=== PATIENT | female | born 1950 | race Caucasian/White ===

== ENCOUNTER 2019-12-24 07:36 | Outpatient (RCR) | payer MEDICARE, SELFPAY ==
[2019-10-01 13:32] LABS: INR 2.8
[2019-10-16 13:39] LABS: INR 2.3; Prothrombin Time 25.1 Seconds (11.1-14.7)
[2019-10-29 13:54] LABS: Prothrombin Time 22.4 Seconds (11.1-14.7)
[2019-11-26 14:15] LABS: INR 2.3; Prothrombin Time 24.4 Seconds (11.1-14.7)
[2019-12-24 13:35] LABS: INR 2.8; Prothrombin Time 28.8 Seconds (11.1-14.7)
== END 2019-12-30 07:37 | disposition home or self-care (01) ==
LOC: ANHWCLAB 07:36
PROVIDERS: PCP Internal Medicine; Visit Provider Internal Medicine
DX: Z51.81 Encounter for therapeutic drug level monitoring (principal); Z79.01 Long term (current) use of anticoagulants
CPT/HCPCS: 36415; 85610

== ENCOUNTER 2020-01-01 09:38 | Outpatient (CLI) | payer MEDICARE, SELFPAY ==
[2020-01-01 10:34] LABS: Hematocrit 33.5 % (37.0-47.0); Hemoglobin 10.1 g/dL (12.0-15.0); Mean Corpuscular HGB Conc 30.1 g/dl (32-36); Mean Corpuscular Hemoglobin 30.2 pg (26-34); Mean Corpuscular Volume 100.3 fl (80-100); Mean Platelet Volume 9.1 fl (7.4-10.4); Platelet Count Result 274 k/mm3 (150-375); Red Blood Count 3.34 M/mm3 (4.2-5.4); Red Cell Distribution Width 15.6 % (11.5-14.5); White Blood Count 10.8 K/mm3 (4.5-10.0)
[2020-01-01 10:40] LABS: Add Urine Microscopic? YES; Amorphous Sediment Urine Few; Appearance Urine Turbid (Clear); Bacteria Urine 4+ /hpf; Bilirubin Urine Negative (Negative); Blood Urine Negative (Negative); Color Urine Yellow (Yellow); Glucose Urine UA Negative (Negative); Ketones Urine Negative (Negative); Leukocyte Esterase Ur 2+ LEU/UL (Negative); Nitrate Urine Negative (Negative); Protein Urine Negative (Negative); Specific Grav Ur 1.017 (1.001-1.035); Squamous Epithelial Cell Urine Occasional /hpf (Few); Urobilinogen Urine Negative mg/dL (<2.0); WBC Urine 21-30 /hpf
[2020-01-01 10:48] LABS: Alanine Aminotransferase 17 U/L (4-35); Albumin Level 4.2 g/dL (3.5-5.1); Alkaline Phosphatase 52 U/L (38-126); Aspartate Amino Transferase 22 U/L (14-36); Bilirubin,Total 0.8 mg/dL (0.2-1.3); Blood Urea Nitrogen 28 mg/dL (7-17); Calcium 10.1 mg/dL (8.4-10.2); Carbon Dioxide 30 mmol/L (22-30); Chloride 99 mmol/L (98-107); Estimated Glomerular Filt Rate > 60; Glucose 96 mg/dL (65-105); Potassium 4.5 mmol/L (3.4-5.0); Sodium 141 mmol/L (137-145)
== END 2020-01-01 09:39 | disposition home or self-care (01) ==
PROVIDERS: Internal Medicine Rheumatology; PCP Internal Medicine; Visit Provider Internal Medicine
DX: Z51.81 Encounter for therapeutic drug level monitoring (principal); Z79.899 Other long term (current) drug therapy; R30.0 Dysuria
CPT/HCPCS: 36415; 80048; 80076; 81001; 85027; 87086; 87088

== ENCOUNTER 2020-01-01 12:01 | Inpatient (IN) | payer MEDICARE, SELFPAY ==
[2020-01-01] VITALS (22 sets, daily range): BP systolic 107–187; BP diastolic 45–89; PULSE 55–80; RESP 14–24; TEMP 36.2–36.5; O2SAT 95–100; BMI 53.1
--- NOTE | ~2020-01-01 | XR_ITS ---
EXAMINATION: XR chest 1V portable DATE: 01/01/2020 14:57 INDICATION: Cough. TECHNIQUE: A single frontal view of the chest was obtained. COMPARISON: Chest 2 views 12/16/2019, chest CT 07/23/2019 FINDINGS: Again seen is mild elevation of right hemidiaphragm. There are coarse interstitial opacitie s with architectural distortion in all lung zones bilaterally. No pleural effusion or pneumothorax. C ardiomegaly is noted. There are prominent paracardial fat pads. The main pulmonary artery is enlarged , consistent with pulmonary arterial hypertension. IMPRESSION: 1. Stable diffuse lung disease, likely chronic interstitial lung disease. 2. Cardiomegaly. Reviewed, dictated and finalized at location A. [place] STORE CLERK
--- NOTE | ~2020-01-01 | US_ITS ---
EXAMINATION: US venous doppler LE EXAM DATE: 01/01/2020 15:55 INDICATION: Bilateral leg swelling. TECHNIQUE: Multiple grayscale, color flow and Doppler images of the lower extremity deep venous syste ms bilaterally were obtained and reviewed. Comparison is made to prior examination from 02/07/2017. FINDINGS: RIGHT SIDE Common femoral: -------- Normal. Profunda femoral: ------- Normal. Femoral: Normal. Popliteal: Normal. Posterior tibial: --------- Normal. Peroneal: Not identified. Gastrocnemius: Normal. Soleus: Not visualized. Greater saphenous: ----- Normal. Lesser saphenous: ------ Not visualized. LEFT SIDE Common femoral: -------- Normal. Profunda femoral: ------- Normal. Femoral: Normal. Popliteal: Normal. Posterior tibial: --------- Normal. Peroneal: Not identified. Gastrocnemius: Not visualized. Soleus: Not visualized. Greater saphenous: ----- Normal. Lesser saphenous: ------ Not visualized. IMPRESSION: 1. No evidence of lower extremity deep venous thrombosis bilaterally. Reviewed, dictated and finalized at location A. R CHISEL OPERATOR
--- NOTE | ~2020-01-01 | CT_ITS ---
EXAMINATION: CT abdomen pelvis wo con DATE: 01/02/2020 10:41 INDICATION: Abdominal distention. Ascites. TECHNIQUE: Computed tomography (CT) of the abdomen and pelvis was performed without intravenous contr ast. Automated exposure control and iterative reconstruction technique were employed. The dose-length product was 1663.22 mGy-cm. COMPARISON: PET/CT dated 01/29/2019 FINDINGS: Groundglass opacities in the bilateral lower lung zones with peripheral predominant reticular opaciti es and honeycombing consistent with usual interstitial pneumonia (UIP) chronic interstitial lung dise ase. Cardiomegaly with biatrial enlargement. No pericardial or pleural effusion. Cholecystectomy clip s the gallbladder fossa. Couple small foci of central pneumobilia in the left and right hepatic lobes likely related to associated sphincterotomy. Liver is otherwise unremarkable. Pancreas, spleen and b ilateral adrenal glands are normal. Bilateral renal cysts the larger on the right measuring 3.2 cm. N umerous scattered colonic diverticula without adjacent inflammatory change to suggest diverticulitis. Small bowel and appendix are normal. Bladder, uterus and bilateral adnexa are normal. No free intrap eritoneal gas or fluid. No pathologically enlarged abdominal or pelvic lymphadenopathy. Moderate left and severe right hip osteoarthritis. Severe lumbar spondylosis. IMPRESSION: 1. Diverticulosis. 2. UIP pattern chronic interstitial lung disease. 3. Cardiomegaly with biatrial enlargement. Reviewed, dictated and finalized at location A. GENCY DEPARTMENT COORDINATOR
--- NOTE | 2020-01-01 14:51 | ED.SOB ---
HPI - SOB/Dyspnea General Chief Complaint: Shortness of Breath/Dyspnea Stated Complaint: PMD wants checked for chf Time Seen by Provider: 01/01/20 14:33 Source: patient Mode of arrival: ambulatory Limitations: no limitations History of Present Illness HPI Narrative: Pt is a 69 y/o female who presents to the ED with c/o worsening SOB for the last week. Pt was in Dr. Parker, her Cardiologists office and her stage rigger, Dr. Norman and they recommended the pt come to the ED and get admitted to the hospital for possible CHF. She has gained about 40 pounds in water weight since February 2019. She reports BLE swelling and she is normally on 4L of home O2. MD elicited complaint: shortness of breath Pertinent past history: congestive heart failure Onset (ago): week(s) (1) Timing: progressively worsening Known history of: congestive heart failure Associated symptoms: other (BLE swelling) Treatment prior to arrival: oxygen Related Data Home oxygen amount: 4 liters Home Medications Medication Instructions Recorded Confirmed warfarin 5 mg tablet 5 mg PO EVERY OTHER DAY 10/01/19 11/27/19 folic acid 1 mg tablet 1 mg PO DAILY 10/06/19 11/27/19 hydroxychloroquine 200 mg tablet 400 mg PO DAILY 10/06/19 11/27/19 levothyroxine 112 mcg tablet 112 mcg PO DAILY 10/06/19 11/27/19 mecobalamin (vitamin B12) 1,000 2,000 mcg PO DAILY 10/06/19 11/27/19 mcg disintegrating tablet,sublingual niacin 500 mg tablet 500 mg PO DAILY 10/06/19 11/27/19 furosemide 40 mg PO DAILY 10/08/19 11/27/19 warfarin 4 mg PO EVERY OTHER DAY 10/08/19 11/27/19 potassium chloride 10 mEq 10 meq PO DAILY tablet 11/27/19 11/27/19 tablet,extended release cholestyramine (with sugar) 4 gram 4 gm PO .AT HS gm 12/17/19 12/17/19 oral powder methotrexate sodium 2.5 mg tablet 7.5 mg PO WEEKLY tablet 12/17/19 prednisone 10 mg tablet 10 mg PO DAILY 12/17/19 cholecalciferol (vitamin D3) 50 mcg PO DAILY 01/01/20 [Vitamin D3] lisinopril 20 mg PO BID 01/01/20 01/01/20 Allergies Allergy/AdvReac Type Severity Reaction Status Date / Time No Known Allergies Allergy Verified 01/01/20 16:52 Review of Systems Review of Systems: All systems reviewed & are unremarkable except as noted in HPI and below Cardiovascular: Cardiovascular: Reports leg edema (BLE) Respiratory: Respiratory: Reports dyspnea PMFSH Past Medical History Medical History Arthritis shoulders, neck, knees Bruit CHF (congestive heart failure) Chronic atrial fibrillation Chronic respiratory failure DJD (degenerative joint disease), multiple sites DVT (deep venous thrombosis) Encounter for Medicare annual wellness exam Hearing loss Hyperlipidemia Hypertension Hypothyroid Morbid obesity with BMI of 50.0-59.9, adult On exterminator drug therapy Pre-diabetes Pulmonary embolism Shingles Sleep apnea Stress incontinence Surgical History Surgical History H/O arthroscopic knee surgery rt knee H/O thyroidectomy History of total knee replacement (TKR) bilateral Hx of cardiac cath Hx of section Hx of cholecystectomy Hx of tonsillectomy Social History Social History Smoking status: Never smoker Second hand tobacco smoke exposure: No Alcohol intake: never Gender identity (if verbalized by the patient): Female Exam Narrative: Exam Narrative: APPEARANCE: No acute distress, nontoxic, resting in bed EYES: EOMI HEENT: Normocephalic, atraumatic, OMM RESPIRATORY: No respiratory distress crackles in the bilateral bases, no wheezing CARDIOVASCULAR: Regular rate and rhythm without murmurs rubs or gallops. ABDOMINAL: Soft, nontender, nondistended, no rebound or guarding MUSCULOSKELETAl: Moves all extremities. No clubbing, cyanosis 4+ edema the bilateral lower extremities NEURO: Awake and alert. Following commands, speech normal, no focal deficits
[2020-01-01 15:45] LABS: INR 2.7; Prothrombin Time 28.1 Seconds (11.1-14.7)
[2020-01-01 15:46] LABS: Partial Thromboplastin Time 30.3 SECONDS (22.3-36.8)
[2020-01-01 16:42] LABS: NT Pro B Type Natriuretic Pept 2560 PG/ML (5-100); Troponin I 0.013 ng/mL (0.000-0.034)
--- NOTE | 2020-01-01 16:55 | ECG_ITS ---
Measurements Intervals [place] Rate: 56 P: RI: 0 QRS: -21 QRSD: 110 T: 25 QT: 410 QTc: 398 Interpretive Statements ATRIAL FIBRILLATION WITH SLOW VENTRICULAR RESPONSE INTRAVENTRICULAR CONDUCTION DELAY VOLTAGE CRITERIA FOR LVH DELAYED PRECORDIAL R/S TRANSITION NONSPECIFIC ST & T-WAVE ABNORMALITY- INF/LAT LEADS ABNORMAL ECG Electronically Signed On 01-02-2020 7:22:53 EPIC KALEIDOSCOPE ANALYST by Michael Parker D.O.
[2020-01-01] MEDS: FUROSEMIDE INJ 40 MG/4 ML VIAL IV PUSH (17:32)
--- NOTE | 2020-01-01 18:01 | ADMGEN ---
This patient, Ayanna Cash, was admitted to Medical Room 340-01. Patient arrived to unit per stretcher. Patient/family oriented to hospital policies and general routines including ID bracelet, bed and alarms, visiting hours, pain management, procedures, bathroom and other care routines, personal items, smoking policy, room service/diet, and visiting hours. Valuables list has been completed. Information on how to activate the Rapid Response Team has been discussed. Patient/Family are encouraged to report perceived risks to care and to ask questions if they do not understand what they are told or what they should do.
--- NOTE | 2020-01-01 18:07 | PM.PNPUL ---
Progress Note: A&P Assessment and Plan (1) Acute respiratory failure: Qualifiers: Respiratory failure complication: hypoxia Qualified Code(s): J96.01 - Acute respiratory failure with hypoxia Code(s): J96.00 - Acute respiratory failure, unspecified whether with hypoxia or hypercapnia Status: Acute Assessment and Plan: Increased shortness of breath with increased edema, increased weight and increased need for supplemental O2. Patient is not able to walk due to the significant swelling in legs and torso. 1. Diuresis. IV Lasix, oral spironolactone at higher doses 2. Daily weights. 3. Appropriate O2. At home, she is using O2 at 4 L /min as the concentrator is too far away to adjust the setting. At time the saturation is high, and with exertion, it may be too low. 4. IV solumedrol for suspected exacerbation of NSIP-nonspecific interstitial pneumonitis, which is secondary to rheumatoid arthritis. Has not had lung biopsy. Increase steroids using solumedrol 40 IV Q 8 hours to decrease inflammation. Dr. Gerard has weaning the RA drugs-one more dose of methotrexate 7.5 mg this Saturday, prednisone 10 mg a day, Plaquenil 200 mg b.i.d.. 5. ABG tomorrow am on waking; no CPAP tonight this has not been tolerated well recently, device is at home, normal serum CO2. There is no ABG in the system. (2) NSIP (nonspecific interstitial pneumonia): Code(s): J84.89 - Other specified interstitial pulmonary diseases Status: Acute Assessment and Plan: Diagnosed from chest CT, history, clinical exam. No biopsy obtained. This will vary on with the severity of underlying RA. May require biopsy at some point as her symptoms have been worsening even though RA appears to be better controlled. (3) Rheumatoid arthritis: Qualifiers: Rheumatoid arthritis location: multiple sites Rheumatoid factor presence: unspecified presence Qualified Code(s): M06.9 - Rheumatoid arthritis, unspecified Code(s): M06.9 - Rheumatoid arthritis, unspecified Status: Acute Assessment and Plan: Treated by Dr. Gerard, had to go back on prednisone after weaning off 3 weeks; had increased pain in her hands, now on 10 mg a day for another week. (4) UTI (urinary tract infection): Code(s): N39.0 - Urinary tract infection, site not specified Status: Acute Assessment and Plan: Urinalysis is consistent with a urinary tract infection, Rocephin has been started. This may improve urinary frequency. (5) CHF (congestive heart failure): Code(s): I50.9 - Heart failure, unspecified Status: Acute Assessment and Plan: History of diastolic dysfunction, increased swelling, shortness of breath; BNP is not excessively high. Will continue diastolic dysfunction meds; metoprolol, lisinopril, furosemide 40 IV bid, spironolactone at 2 x home dose which was 25 mg, now 25 mg b.i.d po.. Stop digoxin with mainly diastolic dysfunction. Hydralazine was started on today's cardiology visit. Would avoid hydralazine with RA; hydralazine can induce (+) HANNAH which she has already. She was on Coreg in the past. She has large increase in edema, without a DVT. Negative dopplers today. (6) Morbid obesity with BMI of 50.0-59.9, adult: Code(s): E66.01 - Morbid (severe) obesity due to excess calories; Z68.43 - Body mass index (BMI) 50.0-59.9, adult Status: Acute Assessment and Plan: BMI is 53. No meaningful exercise with excessive swelling, increased weight and shortness of breath. (7) FALCON (dyspnea on exertion): Code(
[2020-01-01 19:58] LABS: Troponin I 0.015 ng/mL (0.000-0.034)
[2020-01-01 23:01] LABS: Troponin I 0.017 ng/mL (0.000-0.034)
[2020-01-02] VITALS (14 sets, daily range): BP systolic 133–152; BP diastolic 58–84; PULSE 55–98; RESP 17–24; TEMP 36.3–36.7; O2SAT 93–99
[2020-01-02] MEDS: methylPREDNISolone SOD SUCC 40 MG VIAL IV PUSH ×4 (00:21→21:48)
[2020-01-02] MEDS: CHOLESTYRAMINE (W/ SUGAR) 4 GM POWD.PACK PO ×2 (00:22→20:34)
[2020-01-02] MEDS: TRAZODONE HCL 50 MG TABLET 100 MG PO ×2 (00:24→20:34)
[2020-01-02] MEDS: LEVOTHYROXINE SODIUM 112 MCG TABLET PO (05:26)
[2020-01-02 06:41] LABS: Basophils Percent Auto 0.2 % (0.2-1.2); Eosinophils Percent Auto 0.2 % (0-4.4); Hematocrit 32.8 % (37.0-47.0); Hemoglobin 9.7 g/dL (12.0-15.0); Immature Granulocyte Absolute 0.04 K/mm3 (0.00-0.031); Immature Granulocyte Percent A 0.4 % (0-0.5); Lymphocytes Absolute Auto 0.42 K/mm3 (0.9-3.2); Lymphocytes Percent Auto 4.7 % (18.3-44.2); Mean Corpuscular HGB Conc 29.6 g/dl (32-36); Mean Corpuscular Hemoglobin 29.8 pg (26-34); Mean Corpuscular Volume 100.6 fl (80-100); Mean Platelet Volume 9.7 fl (7.4-10.4); Monocytes Absolute Auto 0.3 K/mm3 (0.1-0.6); Monocytes Percent Auto 2.8 % (2.6-8.5); Neutrophils Absolute Auto 8.2 K/mm3 (1.3-6.7); Neutrophils Percent Auto 91.7 % (45.5-73.1); Platelet Count Result 307 k/mm3 (150-375); Red Blood Count 3.26 M/mm3 (4.2-5.4); Red Cell Distribution Width 15.6 % (11.5-14.5)
[2020-01-02 07:10] LABS: Alveolar/Arterial O2 Gradient 52.4 mmHg; Base Excess ABG 4.1 mEq/l (+/-2.0); Device NASAL CANNULA; Fractional Inspired Oxygen 28 %; HCO3 ABG 28.7 mEq/l (22.0-26.0); Modified Allen's Test Pass; Oxygen Content ABG 14.8 %vol (16.0-22.0); Oxygen Saturation ABG 97.5 % (95.0-100.0); Oxyhemoglobin 96.6 % THb (90.0-100.0); PCO2 ABG 43.1 mmHg (35.0-45.0); PO2 ABG 96.4 mmHg (80.0-100.0); PO2 FiO2 Ratio Arterial Blood 3.44 %; Site Drawn RIGHT RADIAL; Total Hemoglobin 10.8 g/dL (12.0-18.0); pH ABG 7.441 (7.350-7.450)
[2020-01-02 07:11] LABS: Alanine Aminotransferase 19 U/L (4-35); Albumin Level 3.8 g/dL (3.5-5.1); Alkaline Phosphatase 45 U/L (38-126); Aspartate Amino Transferase 24 U/L (14-36); Bilirubin,Total 0.7 mg/dL (0.2-1.3); Blood Urea Nitrogen 29 mg/dL (7-17); Calcium 9.4 mg/dL (8.4-10.2); Carbon Dioxide 30 mmol/L (22-30); Chloride 99 mmol/L (98-107); Estimated CRCL calculation 65 ml/min; Estimated Glomerular Filt Rate > 60; Glucose 111 mg/dL (65-105); Potassium 4.4 mmol/L (3.4-5.0); Sodium 140 mmol/L (137-145)
[2020-01-02 07:50] LABS: Hypochromasia 1+ (NORMAL); Ovalocytes 1+ (NORMAL); Platelet Estimate Adequate (Adequate)
[2020-01-02] MEDS: FUROSEMIDE INJ 40 MG/4 ML VIAL IV PUSH ×3 (08:17→21:48)
[2020-01-02] MEDS: NIACIN SA 500 MG TABLET PO (08:18)
[2020-01-02] MEDS: CHOLECALCIFEROL 1,000 UNIT TABLET 2000 UNITS PO (08:18)
[2020-01-02] MEDS: METOPROLOL SUCCINATE EXT REL 50 MG TABCR PO ×2 (08:18→17:13)
[2020-01-02] MEDS: POTASSIUM CHLORIDE 10 MEQ TABLET.ER PO (08:18)
[2020-01-02] MEDS: FOLIC ACID 1 MG TABLET PO (08:18)
[2020-01-02] MEDS: CYANOCOBALAMIN 1,000 MCG TABLET 2000 MCG PO (08:18)
[2020-01-02] MEDS: MAGNESIUM OXIDE 400 MG TABLET PO ×3 (08:18→17:12)
[2020-01-02] MEDS: SPIRONOLACTONE 25 MG TABLET PO ×2 (08:19→11:00)
[2020-01-02] MEDS: lisinopriL 20 MG TABLET PO ×2 (08:19→17:12)
[2020-01-02] MEDS: HYDROXYCHLOROQUINE SULFATE 200 MG TABLET 400 MG PO (08:19)
[2020-01-02] MEDS: PRAVASTATIN SODIUM 20 MG TABLET 80 MG PO (11:06)
--- NOTE | 2020-01-02 15:30 | PCPTNOTE ---
attempted PT evaluation this afternoon, but pt had a visitor and requested PT begin later. unable to return to perform evaluation this date.
--- NOTE | 2020-01-02 16:45 | PM.IMHP ---
H&P: HPI History of Present Illness Chief complaint: CHF/UTI Narrative: Ayanna Cash is a 69 year old female with known rheumatoid arthritis and chronic interstitial lung disease (nonspecific interstitial pneumonitis) was in her usual state of health until 3-4 weeks ago. She had been started on oxygen 2 L with exertion in February of 2019. She was doing well with that for several months. However 3-4 weeks ago she started noticing swelling in feet and legs and then her abdomen. Approximately 1 week ago she became more short of breath with exertion. Even with her oxygen turned up to 4 L she desaturated to 79% with exertion. She also became tachycardic. She has known atrial fibrillation and takes warfarin 5 mg alternating with 4 mg daily. Two weeks ago she came to the emergency department because of the swelling. She was instructed to follow-up with her primary physician hair dresser and bunch breaker machine operator. On January 01 she saw both her bunch breaker machine operator and her hair dresser. Both recommended that she be admitted directly to the hospital. Review of Systems Review of Systems: All systems reviewed & are unremarkable except as noted in HPI and below PMFSH Past Medical History Medical History (Updated 01/02/20 @ 17:00 by Cuong Valerio MD) Bruit CHF (congestive heart failure) Chronic atrial fibrillation Chronic respiratory failure DJD (degenerative joint disease), multiple sites DVT (deep venous thrombosis) 2004 Hearing loss Hyperlipidemia Hypertension Hypothyroid Impaired glucose tolerance Morbid obesity with BMI of 50.0-59.9, adult Pre-diabetes Pulmonary embolism 2004 Shingles Sleep apnea Stress incontinence Surgical History Surgical History (Updated 01/02/20 @ 16:56 by Cuong Valerio MD) H/O arthroscopic knee surgery rt knee History of parathyroidectomy for hyperparathyroidism History of total knee replacement (TKR) bilateral Hx of cardiac cath 1994 Hx of section Hx of cholecystectomy Hx of tonsillectomy Family History Family History (Updated 01/02/20 @ 16:57 by Cuong Valerio MD) Mother , at 91 due to old age Hypertension Father , at 58 due to PE Family history of rheumatoid arthritis Family history of pulmonary embolism Grandparent Cerebrovascular accident Other Family history of malignant neoplasm Social History Social History (Updated 01/02/20 @ 16:58 by Cuong Valerio MD) Smoking status: Never smoker Second hand tobacco smoke exposure: No Alcohol intake: never Substance use: never Occupation/Education: retired Gender identity (if verbalized by the patient): Female Spiritual care concerns: No Agree to blood products: Yes Meds Home Medications and Allergies Home Medications Medication Instructions Recorded Confirmed Type warfarin 5 mg tablet 5 mg PO EVERY OTHER DAY 10/01/19 01/01/20 History folic acid 1 mg tablet 1 mg PO DAILY 10/06/19 01/01/20 History hydroxychloroquine 200 mg tablet 400 mg PO DAILY 10/06/19 01/01/20 History levothyroxine 112 mcg tablet 112 mcg PO DAILY 10/06/19 01/01/20 History mecobalamin (vitamin B12) 1,000 2,000 mcg PO DAILY 10/06/19 01/01/20 History mcg disintegrating tablet,sublingual niacin 500 mg tablet 500 mg PO DAILY 10/06/19 01/01/20 History pravastatin 80 mg tablet 80 mg PO DAILY #90 tablet 10/07/19 01/01/20 Rx furosemide 40 mg PO DAILY 10/08/19 01/01/20 History warfarin [Coumadin] 4 mg PO EVERY OTHER DAY 10/08/19 01/01/20 History potassium chloride 10 mEq 10 meq PO DAILY tablet 11/27/19 01/01/20 History tablet,extended release cholestyramine (with sugar) 4 gram 4 gm PO .AT HS gm 12/17/19 01/01/20 History oral powder magnesium oxide 400 mg PO TID #90 cap 12/17/19 01/01/20 Rx methotrexate sodium 2.5 mg tablet 7.5 mg PO WEEKLY tablet 12/17/19 01/01/20 History prednisone 10 mg tablet 10 mg PO DAILY 12/17/19 01/01/20 History cholecalciferol (vitamin D3) 50 mcg PO DAILY
--- NOTE | 2020-01-02 17:57 | PM.PNPUL ---
Progress Note: A&P Assessment and Plan (1) Acute respiratory failure: Qualifiers: Respiratory failure complication: hypoxia Qualified Code(s): J96.01 - Acute respiratory failure with hypoxia Code(s): J96.00 - Acute respiratory failure, unspecified whether with hypoxia or hypercapnia Status: Acute Assessment and Plan: Increased shortness of breath with increased edema, increased weight and increased need for supplemental O2. Patient is not able to walk due to the significant swelling in legs and torso. Her Lasix has been increased, now twice a day. Will increase to Q 8 hour to augment diuresis. Continue oral spironolactone at higher doses; daily weights, wean O2; pO2 is over 90 on 2 L/min, can wean to 1 L/min at rest; at home was using 4 L /min all the time as the concentrator is too far away to adjust the setting. ABG today 7.44 / 43 / 96 / 28.7 / on 2 L/min Re-start CPAP tonight with O2 at 2 L/min. This has not been tolerated well recently, she has it here today. (2) NSIP (nonspecific interstitial pneumonia): Code(s): J84.89 - Other specified interstitial pulmonary diseases Status: Acute Assessment and Plan: Diagnosed from chest CT, history, clinical exam. No biopsy obtained. This will vary on with the severity of underlying RA. May require biopsy at some point as her symptoms have been worsening even though RA appears to be better controlled. Continue IV solumedrol for suspected exacerbation of NSIP-nonspecific interstitial pneumonitis, which is secondary to rheumatoid arthritis. Has not had lung biopsy. Dr. Gerard has weaning the RA drugs-one more dose of methotrexate 7.5 mg this Saturday, prednisone 10 mg a day, Plaquenil 200 mg b.i.d.. Talked w her about referring to ILD clinic at [facility] after discharge She agrees with this plan. (3) Rheumatoid arthritis: Qualifiers: Rheumatoid arthritis location: multiple sites Rheumatoid factor presence: unspecified presence Qualified Code(s): M06.9 - Rheumatoid arthritis, unspecified Code(s): M06.9 - Rheumatoid arthritis, unspecified Status: Acute Assessment and Plan: Treated by Dr. Gerard, had to go back on prednisone after weaning off 3 weeks; had increased pain in her hands, now on 10 mg a day for another week; now on IV solumedrol.. (4) UTI (urinary tract infection): Code(s): N39.0 - Urinary tract infection, site not specified Status: Acute Assessment and Plan: Urinalysis is consistent with a urinary tract infection, Rocephin has been started. This may improve urinary frequency. (5) CHF (congestive heart failure): Qualifiers: Heart failure chronicity: acute on chronic Heart failure type: diastolic Qualified Code(s): I50.33 - Acute on chronic diastolic (congestive) heart failure Code(s): I50.9 - Heart failure, unspecified Status: Acute Assessment and Plan: History of diastolic dysfunction, increased swelling, shortness of breath; BNP is not excessively high. Will continue diastolic dysfunction meds; metoprolol, lisinopril, furosemide 40 IV bid, spironolactone at 2 x home dose which was 25 mg, now 25 mg b.i.d po.. Stop digoxin with mainly diastolic dysfunction. Hydralazine was started on today's cardiology visit. Would avoid hydralazine with RA; hydralazine can induce (+) HANNAH which she has already. She was on Coreg in the past. She has large increase in edema, without a DVT. Negative dopplers. Patient asked for a second opinion consult with Dr. Reyes which I will request for Saturday. (6) Morbid obesity with BMI of 50.0-59.9, adult:
[2020-01-02] MEDS: WARFARIN (*PBKC) 2.5 MG TABLET PO (18:03)
[2020-01-02] MEDS: WARFARIN (*PBKC) 2 MG TABLET PO (18:03)
--- NOTE | 2020-01-02 19:38 | PC.NURSE ---
Patient voiced that she wants to be seen by Dr. Palm, reconnaissance man for a second opinion. She voiced that she does not want to be seen by Dr. Parker this hospital stay. Dr. Parker was notified by this and gave orders to discontinue his consult.
[2020-01-03] VITALS (12 sets, daily range): BP systolic 133–142; BP diastolic 51–71; PULSE 57–96; RESP 16; TEMP 36.2–36.7; O2SAT 97–100
[2020-01-03] MEDS: methylPREDNISolone SOD SUCC 40 MG VIAL IV PUSH ×3 (05:28→22:26)
[2020-01-03] MEDS: FUROSEMIDE INJ 40 MG/4 ML VIAL IV PUSH ×3 (05:28→22:26)
[2020-01-03] MEDS: LEVOTHYROXINE SODIUM 112 MCG TABLET PO (05:29)
[2020-01-03 06:14] LABS: Immature Reticulocyte Fraction 29.4 % (3.0-15.9); Reticulocyte Hemoglobin Conten 32.5 pg (28.2-35.7); Reticulocyte Percent 4.81 % (0.7-4.3); Reticulocytes Absolute 0.16 B/L (32.2-175.7)
[2020-01-03 06:17] LABS: INR 2.1; Prothrombin Time 23.2 Seconds (11.1-14.7)
[2020-01-03 06:24] LABS: Blood Urea Nitrogen 36 mg/dL (7-17); Calcium 9.3 mg/dL (8.4-10.2); Carbon Dioxide 34 mmol/L (22-30); Chloride 94 mmol/L (98-107); Estimated CRCL calculation 58 ml/min; Estimated Glomerular Filt Rate 55; Glucose 132 mg/dL (65-105); Potassium 4.1 mmol/L (3.4-5.0); Sodium 137 mmol/L (137-145)
[2020-01-03 06:50] LABS: Iron 100 ug/dL (37-170)
[2020-01-03 06:59] LABS: Percent Iron Saturation 27 % (20-50)
--- NOTE | 2020-01-03 07:27 | PC.NURSE ---
Called Dr Norman to update her that the pt requested not to see Dr Parker while in the hospital, she asked for a second opinion. Dr Norman was told the consult for Dr Parker was cancelled, and Dr Reyes was added to the pt list.
[2020-01-03 07:57] LABS: Folic Acid 19.8 ng/mL (2.76->20); Vitamin B12 > 1000.0 pg/mL (239-931)
[2020-01-03] MEDS: HYDROXYCHLOROQUINE SULFATE 200 MG TABLET 400 MG PO (09:11)
[2020-01-03] MEDS: POTASSIUM CHLORIDE 10 MEQ TABLET.ER PO (09:11)
[2020-01-03] MEDS: PRAVASTATIN SODIUM 20 MG TABLET 80 MG PO (10:32)
--- NOTE | 2020-01-03 10:32 | PM.CNCAR ---
Assessment and Plan Assessment and plan (1) Biventricular heart failure: Code(s): I50.82 - Biventricular heart failure Status: Acute Assessment and Plan: Patient presents with acute on chronic hypoxic respiratory failure with progressive history of right heart failure resulting in left-sided failure with preserved ejection fraction (EF 60%). Etiology multifactorial including acute on chronic hypoxic respiratory failure/NSIP related to RA, chronic streroids, uncontrolled HTN, sodium indiscretion, morbid obesity/STARR on CPAP, persistent atrial fibrillation, and anemia. -She will require more aggressive diuresis as an outpatient at least intermittently. She is diuresing well. Discussed in detail CHF management, <2gm Na intake, likestyle, CPAP compliance, importance of BP control, alternatives to steroids, daily weight at home and regular communication with regard to weight changes and symptoms with her treating physicians. -Continue Spironolactone -Agree with stopping Digoxin. -Discussed addition of Metolazone (even temporarily), alternatives such as Bumex or Torsemide, Lasix gtt (while in house). Pt reluctant to make significant aggressive changes due to difficulties ambulating, frequent urination. She is responding well (-3.5L thus far) and feeling much better. -Continue IV LAsix 40mg BID for now if she continues to respond favorably. May change to torsemide 40 mg daily observe tolerance balance patient's symptoms and heart failure. Close observation electrolytes, renal function. -Optimize medical therapy for blood pressure control. -Stop Niacin. Unclear significant clinical benefit in this patient. I have discussed these recommendations with Dr. Valeiro. As I am seeing this patient as a second opinion, changes will be deferred to primary service and Dr. Parker as appropriate. As such, I do not intend to see this patient on an ongoing basis while in the hospital unless I am asked to do so otherwise. Thank you very much for the privilege of allowing me to participate in the care this very pleasant woman. (2) Acute on chronic respiratory failure with hypoxemia: Code(s): J96.21 - Acute and chronic respiratory failure with hypoxia Status: Acute Assessment and Plan: As above. Defer to pulmonology and primary service. Patient remains on steroids which are complicating heart failure management. Alternative if possible. (3) Chronic atrial fibrillation: Code(s): I48.20 - Chronic atrial fibrillation, unspecified Status: Chronic Assessment and Plan: -Heart rate controlled. Unable to escalate beta-marni therapy further due to slow ventricular response. continue systemic anticoagulation. Discussed dietary restrictions with warfarin limiting options for patient resulting in poor choices after discussion with her in detail and strategies to improve diet. -Eliquis 5 mg b.i.d. or Xarelto 20 mg daily as alternative if feasible (although technically, appropriateness in pt with her BMI less clear). (4) NSIP (nonspecific interstitial pneumonia): Code(s): J84.89 - Other specified interstitial pulmonary diseases Status: Acute Assessment and Plan: Per pulmonology and primary service. (5) Essential (primary) hypertension: Code(s): I10 - Essential (primary) hypertension Status: Acute Assessment and Plan: Not ideally controlled. This will be cuenca for management of her heart failure. (6) STARR on CPAP: Code(s): G47.33 - Obstructive sleep apnea (adult) (pediatric); Z99.89 - Dependence on other enabling machines and devices Status: Acute Assessment and Plan: Continued compliance strongly encouraged. Counseled patient to wear at night and any time she falls asleep including naps during the daytime. Limit daytime naps to improve sleep at night. (7) Morbid obesity with BMI of 50.0-59.9, adult: Code(s): E66.01 - Morbid (severe) obesity due to excess
[2020-01-03] MEDS: CHOLECALCIFEROL 1,000 UNIT TABLET 2000 UNITS PO (10:33)
[2020-01-03] MEDS: CYANOCOBALAMIN 1,000 MCG TABLET 2000 MCG PO (10:33)
[2020-01-03] MEDS: MAGNESIUM OXIDE 400 MG TABLET PO ×3 (10:33→17:43)
[2020-01-03] MEDS: FOLIC ACID 1 MG TABLET PO (10:34)
[2020-01-03] MEDS: NIACIN SA 500 MG TABLET PO (10:34)
[2020-01-03] MEDS: METOPROLOL SUCCINATE EXT REL 50 MG TABCR PO ×2 (10:34→17:43)
[2020-01-03] MEDS: SPIRONOLACTONE 50 MG TABLET PO (10:34)
[2020-01-03] MEDS: lisinopriL 20 MG TABLET PO ×2 (10:34→17:43)
[2020-01-03] MEDS: WARFARIN (*PBKC) 2.5 MG TABLET PO (17:43)
[2020-01-03] MEDS: WARFARIN (*PBKC) 2 MG TABLET PO (17:43)
--- NOTE | 2020-01-03 17:45 | PM.IMPN ---
Progress Note: A&P Assessment and Plan (1) Cor pulmonale: Code(s): I27.81 - Cor pulmonale (chronic) Status: Acute Assessment and Plan: Acute on chronic likely due to worsening hypoxemia due to either progression of underlying lung disease or exacerbation of chronic diastolic heart failure or both No evidence to suggest myocardial ischemia No evidence to suggest acute pulmonary infection She is well anticoagulated and has a low probability of recurrent pulmonary emboli Continue with oxygen and diuresis PT and OT to improve exercise tolerance Will need adjustment of her home regimen when she reaches her new baseline (perhaps daily torsemide to improve compliance) (2) CHF (congestive heart failure): Qualifiers: Heart failure chronicity: acute on chronic Heart failure type: diastolic Qualified Code(s): I50.33 - Acute on chronic diastolic (congestive) heart failure Code(s): I50.9 - Heart failure, unspecified Status: Acute Assessment and Plan: Likely secondary to cor pulmonale (3) STARR on CPAP: Code(s): G47.33 - Obstructive sleep apnea (adult) (pediatric); Z99.89 - Dependence on other enabling machines and devices Status: Acute Assessment and Plan: Continue home CPAP at night (4) Essential (primary) hypertension: Code(s): I10 - Essential (primary) hypertension Status: Acute (5) History of pulmonary embolus (PE): Code(s): Z86.711 - Personal history of pulmonary embolism Status: Acute Assessment and Plan: Continue warfarin (6) NSIP (nonspecific interstitial pneumonia): Code(s): J84.89 - Other specified interstitial pulmonary diseases Status: Acute Assessment and Plan: Lungs do not appear nodular as typical rheumatoid lungs but may be related to her rheumatoid arthritis (7) Pulmonary hypertension: Code(s): I27.20 - Pulmonary hypertension, unspecified Status: Acute Assessment and Plan: Secondary to interstitial lung disease and chronic hypoxemia (8) Rheumatoid arthritis: Qualifiers: Rheumatoid arthritis location: multiple sites Rheumatoid factor presence: unspecified presence Qualified Code(s): M06.9 - Rheumatoid arthritis, unspecified Code(s): M06.9 - Rheumatoid arthritis, unspecified Status: Acute Assessment and Plan: Continue home regimen (9) Chronic atrial fibrillation: Code(s): I48.20 - Chronic atrial fibrillation, unspecified Status: Chronic (10) Anemia: Qualifiers: Anemia type: unspecified type Qualified Code(s): D64.9 - Anemia, unspecified Code(s): D64.9 - Anemia, unspecified Status: Acute Assessment and Plan: Laboratory evaluation (11) Acute on chronic respiratory failure with hypoxemia: Code(s): J96.21 - Acute and chronic respiratory failure with hypoxia Status: Acute Assessment and Plan: Due to acute on chronic heart failure with underlying interstitial lung disease Subjective Date/time seen: 01/03/20 17:45 Interval history: Feels better. Tolerating diet. Denied pain while at rest. No arthritic pain with movement. No GI or complaints. Exam Narrative: Exam Narrative: General: Morbidly obese elderly female in no acute distress resting comfortably in her hospital bed with nasal cannula oxygen in place at 2 liters/minute HEENT: EOMI, PERRL, pharyngeal mucosa pink and intact NECK: No visible JVD, adenopathy, or thyromegaly CHEST: Bilateral lower lobe crackles. Normal effort HEART: NL S1/S2, irregular, no murmur ABDOMEN: BS+, protuberant but soft, nontender, no mass, no bruits EXTREMITIES: No cyanosis, 1 to 2+ pretibial and ankle edema NEUROLOGIC: CN intact and symmetric to inspection. MUSCULOSKELETAL: Tone and strength symmetric. PSYCH: Alert. Oriented to person, place, and time. Objective Data Vital Signs Vital Signs: Vital Signs - 24 hr 01/02/20
[2020-01-03] MEDS: CHOLESTYRAMINE (W/ SUGAR) 4 GM POWD.PACK PO (22:26)
[2020-01-03] MEDS: TRAZODONE HCL 50 MG TABLET 100 MG PO (22:26)
[2020-01-04] VITALS (14 sets, daily range): BP systolic 124–142; BP diastolic 50–84; PULSE 51–70; RESP 16–18; TEMP 36.4–36.8; O2SAT 95–100
[2020-01-04 06:42] LABS: INR 1.9; Prothrombin Time 21.1 Seconds (11.1-14.7)
[2020-01-04 06:56] LABS: Blood Urea Nitrogen 39 mg/dL (7-17); Calcium 8.8 mg/dL (8.4-10.2); Carbon Dioxide 34 mmol/L (22-30); Chloride 91 mmol/L (98-107); Estimated CRCL calculation 49 ml/min; Estimated Glomerular Filt Rate 44; Glucose 120 mg/dL (65-105); Potassium 3.9 mmol/L (3.4-5.0); Sodium 136 mmol/L (137-145)
[2020-01-04] MEDS: HYDROXYCHLOROQUINE SULFATE 200 MG TABLET 400 MG PO (09:15)
[2020-01-04] MEDS: POTASSIUM CHLORIDE 10 MEQ TABLET.ER PO (09:15)
[2020-01-04] MEDS: NIACIN SA 500 MG TABLET PO (09:16)
[2020-01-04] MEDS: CYANOCOBALAMIN 1,000 MCG TABLET 2000 MCG PO (09:16)
[2020-01-04] MEDS: MAGNESIUM OXIDE 400 MG TABLET PO ×3 (09:16→17:38)
[2020-01-04] MEDS: lisinopriL 20 MG TABLET PO ×2 (09:16→17:38)
[2020-01-04] MEDS: PRAVASTATIN SODIUM 20 MG TABLET 80 MG PO (09:16)
[2020-01-04] MEDS: FOLIC ACID 1 MG TABLET PO (09:16)
[2020-01-04] MEDS: CHOLECALCIFEROL 1,000 UNIT TABLET 2000 UNITS PO (09:16)
[2020-01-04] MEDS: SPIRONOLACTONE 50 MG TABLET PO (09:16)
[2020-01-04] MEDS: METOPROLOL SUCCINATE EXT REL 50 MG TABCR PO ×2 (09:19→17:38)
[2020-01-04 10:12] LABS: IFOB Positive Control Positive; Immunochemical Fecal Occult Bl Negative (N)
[2020-01-04] MEDS: FUROSEMIDE INJ 40 MG/4 ML VIAL IV PUSH ×2 (15:17→22:06)
[2020-01-04] MEDS: methylPREDNISolone SOD SUCC 40 MG VIAL IV PUSH ×2 (15:17→22:06)
[2020-01-04] MEDS: WARFARIN (*PBKC) 2.5 MG TABLET PO (17:38)
[2020-01-04] MEDS: WARFARIN (*PBKC) 2 MG TABLET PO (17:38)
--- NOTE | 2020-01-04 18:11 | PM.PNPUL ---
Progress Note: A&P Assessment and Plan (1) Acute respiratory failure: Qualifiers: Respiratory failure complication: hypoxia Qualified Code(s): J96.01 - Acute respiratory failure with hypoxia Code(s): J96.00 - Acute respiratory failure, unspecified whether with hypoxia or hypercapnia Status: Acute Assessment and Plan: Increased shortness of breath with increased edema, increased weight and increased need for supplemental O2. Patient is not able to walk due to the significant swelling in legs and torso. Her Lasix has been increased, now twice a day. Will increase to Q 8 hour to augment diuresis. Continue oral spironolactone at higher doses; daily weights, wean O2; pO2 is over 90 on 2 L/min, can wean to 1 L/min at rest; at home was using 4 L /min all the time as the concentrator is too far away to adjust the setting. ABG today 7.44 / 43 / 96 / 28.7 / on 2 L/min Re-start CPAP tonight with O2 at 2 L/min. This has not been tolerated well recently, she has it here today. (2) NSIP (nonspecific interstitial pneumonia): Code(s): J84.89 - Other specified interstitial pulmonary diseases Status: Acute Assessment and Plan: Diagnosed from chest CT, history, clinical exam. No biopsy obtained. This will vary on with the severity of underlying RA. May require biopsy at some point as her symptoms have been worsening even though RA appears to be better controlled. Her worsening may be due to CHF exacerbation. Continue IV solumedrol for suspected exacerbation of NSIP-nonspecific interstitial pneumonitis, which is secondary to rheumatoid arthritis. Has not had lung biopsy. Dr. Gerard has been weaning the RA drugs-one more dose of methotrexate 7.5 mg scheduled for today, prednisone 10 mg a day, Plaquenil 200 mg b.i.d.. Talked w her about referring to ILD clinic at [place] after discharge She agrees with this plan. (3) Rheumatoid arthritis: Qualifiers: Rheumatoid arthritis location: multiple sites Rheumatoid factor presence: unspecified presence Qualified Code(s): M06.9 - Rheumatoid arthritis, unspecified Code(s): M06.9 - Rheumatoid arthritis, unspecified Status: Acute Assessment and Plan: Treated by Dr. Gerard, had to go back on prednisone after weaning off 3 weeks; had increased pain in her hands, now on 10 mg a day for another week; now on IV solumedrol.. (4) UTI (urinary tract infection): Code(s): N39.0 - Urinary tract infection, site not specified Status: Acute Assessment and Plan: Urinalysis is consistent with a urinary tract infection, Rocephin has been started. This may improve urinary frequency. (5) CHF (congestive heart failure): Qualifiers: Heart failure chronicity: acute on chronic Heart failure type: diastolic Qualified Code(s): I50.33 - Acute on chronic diastolic (congestive) heart failure Code(s): I50.9 - Heart failure, unspecified Status: Acute Assessment and Plan: History of diastolic dysfunction, increased swelling, shortness of breath; BNP is not excessively high. Will continue diastolic dysfunction meds; metoprolol, lisinopril, furosemide 40 IV bid, spironolactone at 2 x home dose which was 25 mg, now 25 mg b.i.d po.. Stop digoxin with mainly diastolic dysfunction. Hydralazine was started on today's cardiology visit. Would avoid hydralazine with RA; hydralazine can induce (+) HANNAH which she has already. She was on Coreg in the past. She has large increase in edema, without a DVT. Negative dopplers. Patient asked for a second opinion consult with Dr. Reyes which I will request for Saturday.
--- NOTE | 2020-01-04 18:49 | PM.IMPN ---
Progress Note: A&P Assessment and Plan (1) Cor pulmonale: Code(s): I27.81 - Cor pulmonale (chronic) Status: Acute Assessment and Plan: Acute on chronic likely due to worsening hypoxemia due to either progression of underlying lung disease or exacerbation of chronic diastolic heart failure or both No evidence to suggest myocardial ischemia No evidence to suggest acute pulmonary infection She is well anticoagulated and has a low probability of recurrent pulmonary emboli Continue with oxygen and diuresis PT and OT to improve exercise tolerance Will need adjustment of her home regimen when she reaches her new baseline (perhaps daily torsemide to improve compliance) Likely home soon (2) CHF (congestive heart failure): Qualifiers: Heart failure chronicity: acute on chronic Heart failure type: diastolic Qualified Code(s): I50.33 - Acute on chronic diastolic (congestive) heart failure Code(s): I50.9 - Heart failure, unspecified Status: Acute Assessment and Plan: Likely secondary to cor pulmonale (3) STARR on CPAP: Code(s): G47.33 - Obstructive sleep apnea (adult) (pediatric); Z99.89 - Dependence on other enabling machines and devices Status: Acute Assessment and Plan: Continue home CPAP at night (4) Essential (primary) hypertension: Code(s): I10 - Essential (primary) hypertension Status: Acute (5) History of pulmonary embolus (PE): Code(s): Z86.711 - Personal history of pulmonary embolism Status: Acute Assessment and Plan: Continue warfarin (6) NSIP (nonspecific interstitial pneumonia): Code(s): J84.89 - Other specified interstitial pulmonary diseases Status: Acute Assessment and Plan: Lungs do not appear nodular as typical rheumatoid lungs but may be related to her rheumatoid arthritis (7) Pulmonary hypertension: Code(s): I27.20 - Pulmonary hypertension, unspecified Status: Acute Assessment and Plan: Secondary to interstitial lung disease and chronic hypoxemia (8) Rheumatoid arthritis: Qualifiers: Rheumatoid arthritis location: multiple sites Rheumatoid factor presence: unspecified presence Qualified Code(s): M06.9 - Rheumatoid arthritis, unspecified Code(s): M06.9 - Rheumatoid arthritis, unspecified Status: Acute Assessment and Plan: Continue home regimen (9) Chronic atrial fibrillation: Code(s): I48.20 - Chronic atrial fibrillation, unspecified Status: Chronic (10) Anemia: Qualifiers: Anemia type: unspecified type Qualified Code(s): D64.9 - Anemia, unspecified Code(s): D64.9 - Anemia, unspecified Status: Acute Assessment and Plan: Laboratory evaluation (11) Acute on chronic respiratory failure with hypoxemia: Code(s): J96.21 - Acute and chronic respiratory failure with hypoxia Status: Acute Assessment and Plan: Due to acute on chronic heart failure with underlying interstitial lung disease Subjective Date/time seen: 01/04/20 13:45 Interval history: Feels better. Tolerating diet. Denied pain while at rest. No arthritic pain with movement. No GI or complaints. Review of Systems Review of Systems: All systems reviewed & are unremarkable except as noted in HPI and below Exam Narrative: Exam Narrative: General: Morbidly obese elderly female in no acute distress resting comfortably in her hospital bed with nasal cannula oxygen in place at 2 liters/minute HEENT: EOMI, PERRL, pharyngeal mucosa pink and intact NECK: No visible JVD, adenopathy, or thyromegaly CHEST: Bilateral lower lobe crackles. Normal effort HEART: NL S1/S2, irregular, no murmur ABDOMEN: BS+, protuberant but soft, nontender, no mass, no bruits EXTREMITIES: No cyanosis, 1 to 2+ pretibial and ankle edema NEUROLOGIC: CN intact and symmetric to inspection. MUSCULOSKELETAL: Tone and strength symmetri
[2020-01-04] MEDS: TRAZODONE HCL 50 MG TABLET 100 MG PO (20:34)
[2020-01-04] MEDS: CHOLESTYRAMINE (W/ SUGAR) 4 GM POWD.PACK PO (20:39)
[2020-01-05] VITALS (13 sets, daily range): BP systolic 120–140; BP diastolic 52–77; PULSE 52–108; RESP 16–22; TEMP 36.6–36.9; O2SAT 95–100
[2020-01-05 05:47] LABS: INR 1.8; Prothrombin Time 20.2 Seconds (11.1-14.7)
[2020-01-05 05:51] LABS: Blood Urea Nitrogen 50 mg/dL (7-17); Calcium 8.6 mg/dL (8.4-10.2); Carbon Dioxide 35 mmol/L (22-30); Chloride 92 mmol/L (98-107); Estimated CRCL calculation 45 ml/min; Estimated Glomerular Filt Rate 40; Glucose 118 mg/dL (65-105); Potassium 3.9 mmol/L (3.4-5.0); Sodium 137 mmol/L (137-145)
[2020-01-05] MEDS: methylPREDNISolone SOD SUCC 40 MG VIAL IV PUSH ×2 (06:10→17:51)
[2020-01-05] MEDS: FUROSEMIDE INJ 40 MG/4 ML VIAL IV PUSH ×2 (06:10→17:51)
[2020-01-05] MEDS: LEVOTHYROXINE SODIUM 112 MCG TABLET PO (06:10)
[2020-01-05] MEDS: FOLIC ACID 1 MG TABLET PO (10:23)
[2020-01-05] MEDS: CYANOCOBALAMIN 1,000 MCG TABLET 2000 MCG PO (10:23)
[2020-01-05] MEDS: lisinopriL 20 MG TABLET PO ×2 (10:23→17:51)
[2020-01-05] MEDS: NIACIN SA 500 MG TABLET PO (10:23)
[2020-01-05] MEDS: SPIRONOLACTONE 50 MG TABLET PO (10:23)
[2020-01-05] MEDS: MAGNESIUM OXIDE 400 MG TABLET PO ×2 (10:24→17:51)
[2020-01-05] MEDS: CHOLECALCIFEROL 1,000 UNIT TABLET 2000 UNITS PO (10:24)
[2020-01-05] MEDS: POTASSIUM CHLORIDE 10 MEQ TABLET.ER PO (10:24)
[2020-01-05] MEDS: HYDROXYCHLOROQUINE SULFATE 200 MG TABLET 400 MG PO (10:24)
[2020-01-05] MEDS: PRAVASTATIN SODIUM 20 MG TABLET 80 MG PO (10:25)
[2020-01-05] MEDS: METOPROLOL SUCCINATE EXT REL 50 MG TABCR PO ×2 (10:29→17:51)
--- NOTE | 2020-01-05 17:35 | PM.PNPUL ---
Progress Note: A&P Assessment and Plan (1) Acute respiratory failure: Qualifiers: Respiratory failure complication: hypoxia Qualified Code(s): J96.01 - Acute respiratory failure with hypoxia Code(s): J96.00 - Acute respiratory failure, unspecified whether with hypoxia or hypercapnia Status: Acute Assessment and Plan: Improved shortness of breath with diuresis. She is now able to walk which she was not able to do on admission. She has dropped several kg, now 126 kg. Her Lasix has been increased, spironolactone at higher doses; daily weights, wean O2; she si still using 4 L/min, sat is 95%. At home she was using 4 L /min all the time as the concentrator is too far away to adjust the setting. 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 (2) NSIP (nonspecific interstitial pneumonia): Code(s): J84.89 - Other specified interstitial pulmonary diseases Status: Acute Assessment and Plan: Abd pelvis chest CT shows bases of the lungs with pattern consistent with UIP. The UIP is a manifestation of her RA. Has been called NSIP on prior CT scans of the chest. No biopsy obtained. She has RA. May require biopsy at some point as her symptoms have been worsening even though RA appears to be better controlled. Her worsening may be due to CHF exacerbation. Will taper off IV solumedrol as her BUN is increasing. which is secondary to rheumatoid arthritis. Has not had lung biopsy. Dr. Gerard has been weaning the RA drugs-one more dose of methotrexate 7.5 mg scheduled for today, prednisone 10 mg a day, Plaquenil 200 mg b.i.d.. Talked w her about referring to ILD clinic at [place] after discharge She agrees with this plan. (3) Rheumatoid arthritis: Qualifiers: Rheumatoid arthritis location: multiple sites Rheumatoid factor presence: unspecified presence Qualified Code(s): M06.9 - Rheumatoid arthritis, unspecified Code(s): M06.9 - Rheumatoid arthritis, unspecified Status: Acute Assessment and Plan: Treated by Dr. Gerard, had to go back on prednisone after weaning off 3 weeks; had increased pain in her hands, now on 10 mg a day for another week; I stopped the solumedrol 40 mg IV Q 12 hours changed tor 50 mg po in the am. (4) UTI (urinary tract infection): Code(s): N39.0 - Urinary tract infection, site not specified Status: Acute Assessment and Plan: Urinalysis is consistent with a urinary tract infection, Rocephin has been started. This may improve urinary frequency. (5) CHF (congestive heart failure): Qualifiers: Heart failure chronicity: acute on chronic Heart failure type: diastolic Qualified Code(s): I50.33 - Acute on chronic diastolic (congestive) heart failure Code(s): I50.9 - Heart failure, unspecified Status: Acute Assessment and Plan: History of diastolic dysfunction, increased swelling, shortness of breath; BNP is not excessively high. Will continue diastolic dysfunction meds; metoprolol, lisinopril, furosemide 40 IV bid, spironolactone at 2 x home dose which was 25 mg, now 25 mg b.i.d po.. Stopped digoxin with mainly diastolic dysfunction. No hydralazine with underlying RA. She was on Coreg in the past. She has large increase in edema, without a DVT. Negative dopplers. Will stop warfarin, start Eliquis 5 mg b.i.d. SHe will follow up with Dr. Reyes in the clinic. (6) Morbid obesity with BMI of 50.0-59.9, adult: C
--- NOTE | 2020-01-05 18:28 | PM.IMPN ---
Progress Note: A&P Assessment and Plan (1) Cor pulmonale: Code(s): I27.81 - Cor pulmonale (chronic) Status: Acute Assessment and Plan: Acute on chronic likely due to worsening hypoxemia due to either progression of underlying lung disease or exacerbation of chronic diastolic heart failure or both No evidence to suggest myocardial ischemia No evidence to suggest acute pulmonary infection She is well anticoagulated and has a low probability of recurrent pulmonary emboli Continue with oxygen and diuresis PT and OT seen and Will need adjustment of her home regimen when she reaches her new baseline (perhaps daily torsemide to improve compliance) Likely home soon (2) CHF (congestive heart failure): Qualifiers: Heart failure chronicity: acute on chronic Heart failure type: diastolic Qualified Code(s): I50.33 - Acute on chronic diastolic (congestive) heart failure Code(s): I50.9 - Heart failure, unspecified Status: Acute Assessment and Plan: Likely secondary to cor pulmonale, acute on chronic diastolic (3) STARR on CPAP: Code(s): G47.33 - Obstructive sleep apnea (adult) (pediatric); Z99.89 - Dependence on other enabling machines and devices Status: Acute Assessment and Plan: Continue home CPAP at night (4) Essential (primary) hypertension: Code(s): I10 - Essential (primary) hypertension Status: Acute Assessment and Plan: blood pressure well controlled continue her usual medication (5) History of pulmonary embolus (PE): Code(s): Z86.711 - Personal history of pulmonary embolism Status: Acute Assessment and Plan: INR 1.8 and the plan is to treat transition to Xa inhibitor (6) NSIP (nonspecific interstitial pneumonia): Code(s): J84.89 - Other specified interstitial pulmonary diseases Status: Acute Assessment and Plan: Lungs do not appear nodular as typical rheumatoid lungs but may be related to her rheumatoid arthritis (7) Pulmonary hypertension: Code(s): I27.20 - Pulmonary hypertension, unspecified Status: Acute Assessment and Plan: Secondary to interstitial lung disease and chronic hypoxemia (8) Rheumatoid arthritis: Qualifiers: Rheumatoid arthritis location: multiple sites Rheumatoid factor presence: unspecified presence Qualified Code(s): M06.9 - Rheumatoid arthritis, unspecified Code(s): M06.9 - Rheumatoid arthritis, unspecified Status: Acute Assessment and Plan: Continue home regimen (9) Chronic atrial fibrillation: Code(s): I48.20 - Chronic atrial fibrillation, unspecified Status: Chronic Assessment and Plan: slow to controlled ventricular response so will discontinue telemetry (10) Anemia: Qualifiers: Anemia type: unspecified type Qualified Code(s): D64.9 - Anemia, unspecified Code(s): D64.9 - Anemia, unspecified Status: Acute Assessment and Plan: unchanged in parameters iron studies and B12 normal or compatible with chronic disease (11) Acute on chronic respiratory failure with hypoxemia: Code(s): J96.21 - Acute and chronic respiratory failure with hypoxia Status: Acute Assessment and Plan: Due to acute on chronic heart failure with underlying interstitial lung disease Subjective Date/time seen: 01/05/20 18:28 Interval history: date of visit 01/05 Feels better each day and less swelling. Tolerating diet. Denied pain while at rest. No arthritic pain with movement. No GI or complaints. Exam Narrative: Exam Narrative: blood pressure 140/66 pulse is 66 saturating 99% on 2 L nasal cannula General: Morbidly obese elderly female in no acute distress resting comfortably in her hospital bed with nasal cannula oxygen in place at 2 liters/minute HEENT: EOMI, PERRL, NECK: No visible JVD, CHEST: clear distant breath sounds with very faint crackle dry.
[2020-01-05] MEDS: CHOLESTYRAMINE (W/ SUGAR) 4 GM POWD.PACK PO (20:30)
[2020-01-05] MEDS: TRAZODONE HCL 50 MG TABLET 100 MG PO (20:30)
[2020-01-05] MEDS: APIXABAN 5 MG TABLET PO (20:30)
[2020-01-06] VITALS (7 sets, daily range): BP systolic 125–142; BP diastolic 59–68; PULSE 55–101; RESP 16–20; TEMP 36.2–36.6; O2SAT 95–100
[2020-01-06] MEDS: LEVOTHYROXINE SODIUM 112 MCG TABLET PO (05:38)
[2020-01-06 05:47] LABS: INR 1.8; Prothrombin Time 20.3 Seconds (11.1-14.7)
[2020-01-06 05:48] LABS: Blood Urea Nitrogen 50 mg/dL (7-17); Carbon Dioxide 34 mmol/L (22-30); Chloride 92 mmol/L (98-107); Estimated CRCL calculation 49 ml/min; Estimated Glomerular Filt Rate 44; Glucose 110 mg/dL (65-105); Potassium 4.1 mmol/L (3.4-5.0); Sodium 137 mmol/L (137-145)
[2020-01-06] MEDS: PRAVASTATIN SODIUM 20 MG TABLET 80 MG PO (08:21)
[2020-01-06] MEDS: APIXABAN 5 MG TABLET PO (08:21)
[2020-01-06] MEDS: NIACIN SA 500 MG TABLET PO (08:21)
[2020-01-06] MEDS: HYDROXYCHLOROQUINE SULFATE 200 MG TABLET 400 MG PO (08:21)
[2020-01-06] MEDS: CHOLECALCIFEROL 1,000 UNIT TABLET 2000 UNITS PO (08:21)
[2020-01-06] MEDS: CYANOCOBALAMIN 1,000 MCG TABLET 2000 MCG PO (08:22)
[2020-01-06] MEDS: POTASSIUM CHLORIDE 10 MEQ TABLET.ER PO (08:23)
[2020-01-06] MEDS: predniSONE 40 MG, predniSONE 10 MG 50 MG PO (08:23)
[2020-01-06] MEDS: lisinopriL 20 MG TABLET PO ×2 (08:23→17:23)
[2020-01-06] MEDS: FOLIC ACID 1 MG TABLET PO (08:23)
[2020-01-06] MEDS: SPIRONOLACTONE 50 MG TABLET PO (08:23)
[2020-01-06] MEDS: MAGNESIUM OXIDE 400 MG TABLET PO ×3 (08:23→17:23)
[2020-01-06] MEDS: METOPROLOL SUCCINATE EXT REL 50 MG TABCR PO ×2 (08:24→17:25)
[2020-01-06] MEDS: FUROSEMIDE INJ 40 MG/4 ML VIAL IV PUSH (08:29)
--- NOTE | 2020-01-06 12:35 | PM.IMPN ---
Progress Note: A&P Assessment and Plan (1) Cor pulmonale: Code(s): I27.81 - Cor pulmonale (chronic) Status: Acute Assessment and Plan: Acute on chronic likely due to worsening hypoxemia due to either progression of underlying lung disease or exacerbation of chronic diastolic heart failure or both No evidence to suggest myocardial ischemia No evidence to suggest acute pulmonary infection She is well anticoagulated and has a low probability of recurrent pulmonary emboli Continue with oxygen and diuresis PT and OT seen and Will need adjustment of her home regimen when she reaches her new baseline (perhaps daily torsemide to improve compliance) on oral prednisone now Likely home soon (2) CHF (congestive heart failure): Qualifiers: Heart failure chronicity: acute on chronic Heart failure type: diastolic Qualified Code(s): I50.33 - Acute on chronic diastolic (congestive) heart failure Code(s): I50.9 - Heart failure, unspecified Status: Acute Assessment and Plan: Likely secondary to cor pulmonale, acute on chronic diastolic change to po lasix this pm (3) STARR on CPAP: Code(s): G47.33 - Obstructive sleep apnea (adult) (pediatric); Z99.89 - Dependence on other enabling machines and devices Status: Acute Assessment and Plan: Continue home CPAP at night (4) Essential (primary) hypertension: Code(s): I10 - Essential (primary) hypertension Status: Acute Assessment and Plan: blood pressure well controlled continue her usual medication GEORGI with beta marni and diuretic (5) History of pulmonary embolus (PE): Code(s): Z86.711 - Personal history of pulmonary embolism Status: Acute Assessment and Plan: INR 1.8 and the plan was to transition to Xa inhibitor but cost may be prohibative. CC checking on cost . Apixaban $475 per month, if rivaroxaban is as expensive will go back to warfarin (6) NSIP (nonspecific interstitial pneumonia): Code(s): J84.89 - Other specified interstitial pulmonary diseases Status: Acute Assessment and Plan: Lungs do not appear nodular as typical rheumatoid lungs but may be related to her rheumatoid arthritis (7) Pulmonary hypertension: Code(s): I27.20 - Pulmonary hypertension, unspecified Status: Acute Assessment and Plan: Secondary to interstitial lung disease and chronic hypoxemia (8) Rheumatoid arthritis: Qualifiers: Rheumatoid arthritis location: multiple sites Rheumatoid factor presence: unspecified presence Qualified Code(s): M06.9 - Rheumatoid arthritis, unspecified Code(s): M06.9 - Rheumatoid arthritis, unspecified Status: Acute Assessment and Plan: Continue home regimen (9) Chronic atrial fibrillation: Code(s): I48.20 - Chronic atrial fibrillation, unspecified Status: Chronic Assessment and Plan: slow to controlled ventricular response so discontinued telemetry (10) Anemia: Qualifiers: Anemia type: unspecified type Qualified Code(s): D64.9 - Anemia, unspecified Code(s): D64.9 - Anemia, unspecified Status: Acute Assessment and Plan: unchanged in parameters iron studies and B12 normal or compatible with chronic disease (11) Acute on chronic respiratory failure with hypoxemia: Code(s): J96.21 - Acute and chronic respiratory failure with hypoxia Status: Acute Assessment and Plan: Due to acute on chronic heart failure with underlying interstitial lung disease Subjective Date/time seen: 01/06/20 12:35 Interval history: date of visit 01/06 Feels better each day and less swelling. Tolerating diet. Denied pain while at rest. No arthritic pain with movement. No GI or complaints. Exam Narrative: Exam Narrative: blood pressure 1422/60 pulse is 62 saturating 99% on 2 L nasal cannula General: Morbidly obese elderly female in no acut
[2020-01-06] MEDS: FUROSEMIDE 40 MG TABLET PO (17:22)
[2020-01-06] MEDS: WARFARIN (*PBKC) 5 MG TABLET PO (17:24)
[2020-01-06] MEDS: CHOLESTYRAMINE (W/ SUGAR) 4 GM POWD.PACK PO (21:49)
[2020-01-06] MEDS: TRAZODONE HCL 50 MG TABLET 100 MG PO (21:49)
[2020-01-07] VITALS (7 sets, daily range): BP systolic 130–150; BP diastolic 67–89; PULSE 57–98; RESP 16–20; TEMP 35.8–36.2; O2SAT 85–100
[2020-01-07 06:42] LABS: INR 1.4; Prothrombin Time 16.9 Seconds (11.1-14.7)
[2020-01-07 06:47] LABS: Blood Urea Nitrogen 49 mg/dL (7-17); Calcium 9.2 mg/dL (8.4-10.2); Carbon Dioxide 34 mmol/L (22-30); Chloride 96 mmol/L (98-107); Estimated CRCL calculation 49 ml/min; Estimated Glomerular Filt Rate 44; Glucose 92 mg/dL (65-105); Potassium 3.8 mmol/L (3.4-5.0); Sodium 138 mmol/L (137-145)
[2020-01-07] MEDS: LEVOTHYROXINE SODIUM 112 MCG TABLET PO (06:48)
[2020-01-07] MEDS: predniSONE 20 MG TABLET 40 MG PO (08:38)
[2020-01-07] MEDS: CYANOCOBALAMIN 1,000 MCG TABLET 2000 MCG PO (08:38)
[2020-01-07] MEDS: MAGNESIUM OXIDE 400 MG TABLET PO ×2 (08:39→12:36)
[2020-01-07] MEDS: lisinopriL 20 MG TABLET PO (08:39)
[2020-01-07] MEDS: HYDROXYCHLOROQUINE SULFATE 200 MG TABLET 400 MG PO (08:39)
[2020-01-07] MEDS: NIACIN SA 500 MG TABLET PO (08:39)
[2020-01-07] MEDS: FUROSEMIDE 40 MG TABLET PO (08:39)
[2020-01-07] MEDS: POTASSIUM CHLORIDE 10 MEQ TABLET.ER PO (08:39)
[2020-01-07] MEDS: PRAVASTATIN SODIUM 20 MG TABLET 80 MG PO (08:40)
[2020-01-07] MEDS: SPIRONOLACTONE 50 MG TABLET PO (08:40)
[2020-01-07] MEDS: CHOLECALCIFEROL 1,000 UNIT TABLET 2000 UNITS PO (08:40)
[2020-01-07] MEDS: FOLIC ACID 1 MG TABLET PO (08:41)
[2020-01-07] MEDS: METOPROLOL SUCCINATE EXT REL 50 MG TABCR PO (08:41)
--- NOTE | 2020-01-07 13:10 | PCDIET ---
Nutrition consult for Vit K edu provided. Pt wanting to increase intake of Vitamin K foods. I explained rationale for monitoring vitamin K and coumadin intake. We reviewed the provided list of Vit K content of food and serving sizes. Pt encouraged to stick to low vitamin K foods. Intake of high to moderate vit K foods encouraged to be limited to one serving per day. Explained the importance of consistent vitamin K intake, without large changes in intake. Pt does not eat grapefruit either. Handouts and contact info provided.
--- NOTE | 2020-01-08 17:43 | PM.DS ---
DS: Diagnosis Admitting Diagnosis Admitting Diagnosis: Acute respiratory failure with hypoxia Discharge Diagnosis (1) Cor pulmonale: Code(s): I27.81 - Cor pulmonale (chronic) Status: Acute Assessment and Plan: Acute on chronic likely due to worsening hypoxemia due to either progression of underlying lung disease or exacerbation of chronic diastolic heart failure or both No evidence to suggest myocardial ischemia No evidence to suggest acute pulmonary infection although empirically treated with ceftriaxone while here She was anticoagulated and has a low probability of recurrent pulmonary emboli on ventilation perfusion scan Continue with oxygen and diuresis diuresed with IV Lasix and then transitioned to p.o. before discharge on oral prednisone increased while here and will be 30 mg daily for 1 week followed by 20 for 1 week then 10 mg daily as outpatient (2) CHF (congestive heart failure): Qualifiers: Heart failure chronicity: acute on chronic Heart failure type: diastolic Qualified Code(s): I50.33 - Acute on chronic diastolic (congestive) heart failure Code(s): I50.9 - Heart failure, unspecified Status: Acute Assessment and Plan: Likely secondary to cor pulmonale, acute on chronic diastolic change to po lasix at b.i.d. dosing and increase spironolactone to 50 daily. EF normal with diastolic dysfunction right-sided heart failure and pulmonary hypertension (3) STARR on CPAP: Code(s): G47.33 - Obstructive sleep apnea (adult) (pediatric); Z99.89 - Dependence on other enabling machines and devices Status: Acute Assessment and Plan: Continue home CPAP at night (4) Essential (primary) hypertension: Code(s): I10 - Essential (primary) hypertension Status: Acute Assessment and Plan: blood pressure well controlled continue her usual medication GEORGI with beta marni and diuretic 130/66 at discharge (5) History of pulmonary embolus (PE): Code(s): Z86.711 - Personal history of pulmonary embolism Status: Acute Assessment and Plan: INR 1.8 on admission and the plan was to transition to Xa inhibitor but cost may be prohibative . Apixaban $475 per month, as was rivaroxaban , thus will be discharged on warfarin 5 mg daily to have an INR drawn 01/12 (6) NSIP (nonspecific interstitial pneumonia): Code(s): J84.89 - Other specified interstitial pulmonary diseases Status: Acute Assessment and Plan: Lungs do not appear nodular as typical rheumatoid lungs but may be related to her rheumatoid arthritis She will follow-up with Dr. Norman as an outpatient (7) Rheumatoid arthritis: Qualifiers: Rheumatoid arthritis location: multiple sites Rheumatoid factor presence: unspecified presence Qualified Code(s): M06.9 - Rheumatoid arthritis, unspecified Code(s): M06.9 - Rheumatoid arthritis, unspecified Status: Acute Assessment and Plan: Continue home regimen, methotrexate, hydroxychloroquine, and low-dose prednisone 10 daily (8) Chronic atrial fibrillation: Code(s): I48.20 - Chronic atrial fibrillation, unspecified Status: Chronic Assessment and Plan: slow to controlled ventricular response with metoprolol 50 b.i.d. and continue anticoagulation with warfarin (9) Anemia: Qualifiers: Anemia type: unspecified type Qualified Code(s): D64.9 - Anemia, unspecified Code(s): D64.9 - Anemia, unspecified Status: Acute Assessment and Plan: unchanged in parameters iron studies and B12 normal or compatible with chronic disease (10) Acute on chronic respiratory failure with hypoxemia: Code(s): J96.21 - Acute and chronic respiratory failure with hypoxia Status: Acute Assessment and Plan: Due to acute on chronic heart failure with underlying interstitial lung disease by the time of discharge with sat above 90% on her 2-3 L nasal cannula
== END 2020-01-07 17:15 | disposition home health service (06) | DRG 314 ==
LOC: ANHED 16:51 → ANH3MED 17:26
PROVIDERS: Internal Medicine; Internal Medicine Critical Care Medicine; Admitting Provider Internal Medicine; Emergency Provider Emergency Medicine; PCP Internal Medicine; Visit Provider Internal Medicine
DX: I27.81 Cor pulmonale (chronic) (principal); I50.33 Acute on chronic diastolic (congestive) heart failure; J96.21 Acute and chronic respiratory failure with hypoxia; J84.114 Acute interstitial pneumonitis; N39.0 Urinary tract infection, site not specified; I48.20 Chronic atrial fibrillation, unspecified; Z68.43 Body mass index [BMI] 50.0-59.9, adult; M05.10 Rheumatoid lung disease with rheumatoid arthritis of unspecified site; I11.0 Hypertensive heart disease with heart failure; M06.9 Rheumatoid arthritis, unspecified; Z99.81 Dependence on supplemental oxygen; M19.90 Unspecified osteoarthritis, unspecified site; Z86.718 Personal history of other venous thrombosis and embolism; H91.90 Unspecified hearing loss, unspecified ear; E78.5 Hyperlipidemia, unspecified; Z86.711 Personal history of pulmonary embolism; E66.01 Morbid (severe) obesity due to excess calories; R73.03 Prediabetes; G47.33 Obstructive sleep apnea (adult) (pediatric); N39.3 Stress incontinence (female) (male); E89.2 Postprocedural hypoparathyroidism; Z96.653 Presence of artificial knee joint, bilateral; Z90.49 Acquired absence of other specified parts of digestive tract; Z79.52 Long term (current) use of systemic steroids; I27.20 Pulmonary hypertension, unspecified
CPT/HCPCS: 36415; 36600; 71045; 74176; 80048; 80053; 80076; 81001; 82274; 82607; 82746; 82805; 83540; 83550; 83880; 84484; 85025; 85027; 85046; 85610; 85730; 87086; 87088; 93005; 93970; 94618; 96361; 96365; 96375; 96376; 97110; 97116; 97161; 97165; 97530; 97535; 99285; A9270; G0378; J0696; J1940; J2920; J7512

== ENCOUNTER → 2020-01-12 11:00 | Outpatient (NON) | payer MEDICARE, SELFPAY ==
[2020-01-12 11:06] LABS: Blood Urea Nitrogen 60 mg/dL (7-17); Calcium 10.1 mg/dL (8.4-10.2); Carbon Dioxide 28 mmol/L (22-30); Chloride 92 mmol/L (98-107); Estimated Glomerular Filt Rate 30; Glucose 125 mg/dL (65-105); Potassium 4.7 mmol/L (3.4-5.0); Sodium 135 mmol/L (137-145)
[2020-01-12 11:24] LABS: INR 1.6; Prothrombin Time 18.8 Seconds (11.1-14.7)
== END ==
PROVIDERS: PCP Internal Medicine; Visit Provider Internal Medicine
DX: I48.20 Chronic atrial fibrillation, unspecified (principal); I50.9 Heart failure, unspecified
CPT/HCPCS: 80048; 85610

== ENCOUNTER 2020-01-27 09:23 | Inpatient (IN) | payer MEDICARE, SELFPAY ==
[2020-01-27] VITALS (13 sets, daily range): BP systolic 85–125; BP diastolic 55–78; PULSE 61–98; RESP 16–20; TEMP 36.6–36.8; O2SAT 99–100; BMI 49.6
--- NOTE | ~2020-01-27 | US_ITS ---
EXAMINATION: US renal BI DATE: 01/28/2020 09:48 INDICATION: Acute on chronic renal failure. TECHNIQUE: Multiple ultrasound grayscale images of the kidneys were obtained. COMPARISON: CT abdomen and pelvis 01/02/2020 FINDINGS: The right kidney measures 10.0 x 5.6 x 5.5 cm. The left kidney measures 10.9 x 5.5 x 5.6 cm. The kidn eys demonstrate normal parenchymal echogenicity. There are cysts in the kidneys measuring up to 3.0 c m on the right. There is no hydronephrosis. The bladder is normal. There is diffuse hepatic steatosis . IMPRESSION: 1. Normal kidney sizes. No hydronephrosis. Reviewed, dictated and finalized at location A. MECHANIC HELPER
--- NOTE | ~2020-01-27 | CT_ITS ---
EXAMINATION: CT brain wo con DATE: 01/27/2020 09:58 INDICATION: Dizziness TECHNIQUE: Computed tomography (CT) of the head was performed without intravenous contrast. Sagittal and coronal reconstructions were performed. The mA was adjusted according to patient size. Iterative reconstruction technique was employed. The dose-length product was 605.33 mGy-cm. COMPARISON: head CT dated 12/06/2013 FINDINGS: No acute intracranial hemorrhage, acute infarction or abnormal extra axial fluid collection. Symmetri c prominence of the sulci consistent with mild to moderate diffuse cerebral volume loss. Ventricles a re normal and symmetric. No mass/mass effect. Coastal thickening in the left maxillary sinus which de monstrates thickened sclerotic cota consistent with chronic sinusitis. Likely antrostomy at the medi al wall of the left maxillary sinus. The orbits and mastoid air cells are normal. Intracranial calcif ied cerebral atherosclerosis is noted. IMPRESSION: 1. Mild to moderate diffuse volume loss. No intracranial process. 2. Chronic left maxillary sinus disease. Reviewed, dictated and finalized at location A. ITUTIONAL NUTRITION CONSULTANT
--- NOTE | 2020-01-27 09:25 | ED.DIZZY ---
HPI - Dizziness General Chief Complaint: Dizziness Stated Complaint: DIZZINESS Time Seen by Provider: 01/27/20 09:23 Source: patient Mode of arrival: EMS Limitations: no limitations History of Present Illness HPI Narrative: Pt is a 69 y/o female who presents to the ED, via EMS, with c/o dizziness that started at 8AM this morning. Pt states that she was watching TV and had taken her morning medicines 5 minutes prior to feeling dizzy. She states that things started spinning suddenly and the TV went white. Pt states that she is still feeling intermittently dizzy. Pt's dizziness was alleviated when she closed her eyes but it was aggravated when she opened her eyes. Her dizziness did not change when she moved her head. She notes that she has been dizzy in the past but had never got it checked out. She reports generalized weakness and lt ear pruritis, but denies N/V, JOSUE, numbness, or focal weakness. Pt has a H/o CHF and she was recently D/C from the hospital after being admitted for CHF exacerbation. Per records, she had her Lasix and spironolactone dosages increased when she was D/C. She states that she lost about 30 pounds in water weight since she was admitted to the hospital on 01/01/20 and D/C on 01/08/20. Pt takes Warfarin as her anticoagulation therapy. Her PCP is Dr. Reyez. elicited complaint: dizziness Onset (ago): hour(s) (1) Timing: sudden onset Description: room spinning History of similar symptoms: Yes Exacerbating factors: keeping eyes open Relieving factors: keeping eyes closed Associated symptoms: other (lt ear pruritis, generalized weakness) Related Data Home Medications Medication Instructions Recorded Confirmed folic acid 1 mg tablet 1 mg PO DAILY 10/06/19 01/27/20 cholecalciferol (vitamin D3) 50 mcg PO DAILY 01/01/20 01/27/20 [Vitamin D3] cholecalciferol (vitamin D3) 2,000 unit PO DAILY 01/27/20 01/27/20 [Vitamin D3] cholestyramine (with sugar) 4 g PO HS 01/27/20 01/27/20 [Questran] cyanocobalamin (vitamin B-12) 2,000 mcg PO DAILY 01/27/20 01/27/20 [Vitamin B-12] digoxin 125 mcg PO DAILY 01/27/20 01/27/20 furosemide 40 mg PO DAILY 01/27/20 01/27/20 hydroxychloroquine 400 mg PO DAILY 01/27/20 01/27/20 levothyroxine 112 mcg PO DAILY 01/27/20 01/27/20 lisinopril 40 mg PO DAILY 01/27/20 01/27/20 magnesium oxide 1,200 mg PO DAILY 01/27/20 01/27/20 methotrexate sodium 75 mg PO WEEKLY 01/27/20 01/27/20 metoprolol succinate 100 mg PO DAILY 01/27/20 01/27/20 niacin 500 mg PO DAILY 01/27/20 01/27/20 potassium chloride 10 meq PO DAILY 01/27/20 01/27/20 pravastatin 80 mg PO DAILY 01/27/20 01/27/20 spironolactone 25 mg PO DAILY 01/27/20 01/27/20 trazodone 100 mg PO HS 01/27/20 01/27/20 warfarin 6 mg PO DAILY 01/27/20 01/27/20 Allergies Allergy/AdvReac Type Severity Reaction Status Date / Time No Known Allergies Allergy Verified 01/27/20 11:21 Review of Systems Review of Systems: All systems reviewed & are unremarkable except as noted in HPI and below Constitutional: Constitutional: Reports weakness (generalized) ENT: Reports other (lt ear pruritis) Gastrointestinal: Gastrointestinal: Denies nausea and Denies vomiting Neurologic: Reports dizziness, Denies headache(s), Denies focal weakness and Denies numbness PMFSH Social History Social History (System 01/27/20 @ 11:21 by Oksana Kline) Smoking status: Never smoker Second hand tobacco smoke exposure: No Alcohol intake: never Substance use: never Substance use type: does not use Gender identity (if verbalized by the patient): Female Spiritual care concerns: No Agree to blood products: Yes Comments Her PCP is Dr. Reyez Exam Const: General: cooperative, no acute distress and alert Nutritional Appearance: well nourished Orientation/consciousness: patient oriented x3 Limitations: no limitations HENMT: Ears: TM abnormal (clear fluid behind lt TM) not erythematous Mouth: Yes lip normal and Yes moist mucous membranes Eyes: C
--- NOTE | 2020-01-27 09:37 | ECG_ITS ---
Measurements Intervals [place] Rate: 98 P: [place]: 0 QRS: -24 QRSD: 123 T: 90 QT: 339 QTc: 435 Interpretive Statements ATRIAL FIBRILLATION INTRAVENTRICULAR CONDUCTION DELAY LEFT VENTRICULAR HYPERTROPHY AND ST-T CHANGE POOR R WAVE PROGRESSION, ANTERIOR LEADS BASELINE ARTIFACT- I, II, III, AVR, AVL, V1 ABNORMAL ECG Electronically Signed On 01-27-2020 11:50:53 LINING REPAIRER by Michael Parker D.O.
[2020-01-27 10:10] LABS: Basophils Percent Auto 0.3 % (0.2-1.2); Eosinophils Absolute Auto 0.2 K/mm3 (0-0.3); Eosinophils Percent Auto 1.7 % (0-4.4); Hematocrit 36.9 % (37.0-47.0); Hemoglobin 11.4 g/dL (12.0-15.0); Immature Granulocyte Absolute 0.09 K/mm3 (0.00-0.031); Immature Granulocyte Percent A 0.9 % (0-0.5); Lymphocytes Absolute Auto 1.24 K/mm3 (0.9-3.2); Lymphocytes Percent Auto 12.5 % (18.3-44.2); Mean Corpuscular HGB Conc 30.9 g/dl (32-36); Mean Corpuscular Hemoglobin 30.4 pg (26-34); Mean Corpuscular Volume 98.4 fl (80-100); Mean Platelet Volume 9.6 fl (7.4-10.4); Monocytes Absolute Auto 0.7 K/mm3 (0.1-0.6); Monocytes Percent Auto 7.5 % (2.6-8.5); Neutrophils Absolute Auto 7.6 K/mm3 (1.3-6.7); Neutrophils Percent Auto 77.1 % (45.5-73.1); Platelet Count Result 209 k/mm3 (150-375); Red Blood Count 3.75 M/mm3 (4.2-5.4); Red Cell Distribution Width 15.7 % (11.5-14.5); White Blood Count 9.9 K/mm3 (4.5-10.0)
[2020-01-27 10:22] LABS: Alanine Aminotransferase 29 U/L (4-35); Albumin Level 4.1 g/dL (3.5-5.1); Alkaline Phosphatase 35 U/L (38-126); Aspartate Amino Transferase 24 U/L (14-36); Bilirubin,Total 0.4 mg/dL (0.2-1.3); Blood Urea Nitrogen 104 mg/dL (7-17); Carbon Dioxide 21 mmol/L (22-30); Chloride 105 mmol/L (98-107); Estimated CRCL calculation 19 ml/min; Estimated Glomerular Filt Rate 15; Glucose 118 mg/dL (65-105); Magnesium 2.4 mg/dL (1.6-2.3); Phosphorus 3.9 mg/dL (2.5-4.5); Potassium 5.7 mmol/L (3.4-5.0); Sodium 134 mmol/L (137-145)
[2020-01-27 10:57] LABS: INR 4.6; Prothrombin Time 42.7 Seconds (11.1-14.7)
[2020-01-27 10:58] LABS: Partial Thromboplastin Time 30.4 SECONDS (22.3-36.8)
[2020-01-27 11:01] LABS: Digoxin < 0.5 ng/mL (0.8-2.0)
[2020-01-27] MEDS: LACTATED RINGERS 1,000 ML 999 ML IV CONT ×2 (11:04→13:03)
[2020-01-27 12:02] LABS: Free T4 Free Thyroxine Reflex 1.49 ng/dL (0.78-2.19)
[2020-01-27 12:10] LABS: Add Urine Microscopic? YES; Appearance Urine Clear (Clear); Bacteria Urine 2+ /hpf; Bilirubin Urine Negative (Negative); Blood Urine Negative (Negative); Color Urine Yellow (Yellow); Glucose Urine UA Negative (Negative); Ketones Urine Negative (Negative); Leukocyte Esterase Ur 3+ LEU/UL (Negative); Mucus Urine Rare /lpf; Nitrate Urine Positive (Negative); Protein Urine Negative (Negative); RBC Urine 0-2 /hpf (0-2); Specific Grav Ur 1.014 (1.001-1.035); Squamous Epithelial Cell Urine Rare /hpf (Few); Urobilinogen Urine Negative mg/dL (<2.0)
--- NOTE | 2020-01-27 12:56 | PC.NURSE ---
floor unable to take report at present time.
--- NOTE | 2020-01-27 13:09 | PC.NURSE ---
2nd liter IVF initiated per order Dr. Carmona. Continue to await report to floor.
[2020-01-27 13:15] LABS: Total Triiodothyronine (T3) 0.81 NG/ML (0.97-1.69)
[2020-01-27] MEDS: LACTATED RINGERS 1,000 ML 125 ML IV CONT (13:43)
--- NOTE | 2020-01-27 14:41 | PC.NURSE ---
This patient, Ayanna Cash, was admitted to 3 [facility] Room 320-01. Patient/family oriented to hospital policies and general routines including ID bracelet, bed and alarms, visiting hours, pain management, procedures, bathroom and other care routines, personal items, smoking policy, room service/diet, and visiting hours. Valuables list has been completed. Information on how to activate the Rapid Response Team has been discussed. Patient/Family are encouraged to report perceived risks to care and to ask questions if they do not understand what they are told or what they should do.
--- NOTE | 2020-01-27 18:53 | PM.IMHP ---
H&P: HPI History of Present Illness Chief complaint: Acute on chronic renal failure/volume depletion Narrative: Ayanna Cash is a 69 year old female who was just admitted here on 01/02/2020. The patient was here with congestive heart failure and UTI. When she was discharged she lost nearly 30 lb the patient had changes in her diuretics and lisinopril. The patient was supposed to follow-up with Dr. Umanzor but has not made it to her follow-up appointment just yet. Patient's creatinine had been normal up until the day of 01/04/2020. Creatinine went up to 1.2. On 01/06/2018 her creatinine 1.7. Today it is 3.10. The patient stated that she came to the emergency room today because she complained of dizziness. It started around 8:00 a.m. this morning. This occurred about 15 minutes after she took her medications. She has been feeling intermittently dizzy. She has some generalized weakness. No nausea no vomiting no diarrhea her Lasix and Aldactone had been increase in the dose each her last admission. Today her potassium is 5.7. Patient has LR infusing at this time. I will get a repeat BMP stat. Date of service 01/27/2020 patient stated she feels better when she keeps her eyes closed. Review of Systems Review of Systems: Narrative: Patient denies any shortness of breath. No fever no chills no cough Constitutional: Constitutional: Reports as per HPI and Reports no additional constitutional complaints Eyes: Eyes: Reports as per HPI and Reports no additional eye complaints ENT: Reports system reviewed and no additional complaints, except as documented and Reports Normal hearing present Cardiovascular: Cardiovascular: Reports no additional cardiovascular complaints Respiratory: Respiratory: Reports no additional respiratory complaints and Reports no additional respiratory complaints Gastrointestinal: Gastrointestinal: Reports no additional gastrointestinal complaints Musculoskeletal: Musculoskeletal: Reports no additional musculoskeletal complaints Integumentary/Breasts: Skin/Breast: Reports system reviewed and no additional complaints, except as docu and Reports as per HPI Neurologic: Reports system reviewed and no additional complaints, except as documented, Reports as per HPI and Reports Normal hearing present Psychiatric: Psychiatric: Reports no additional psychiatric complaints and Reports as per HPI Endocrine: Endocrine: Reports no additional endocrine complaints Hematologic/Lymphatic: Hematologic/Lymphatic: Reports no additional hematologic/lymphatic complaints Allergic/Immunologic: Allergic/Immunologic: Reports no additional allergic/immunologic complaints [facility] Past Medical History Medical History (Updated 01/27/20 @ 19:30 by Khloe Clement NP) Acute on chronic respiratory failure with hypoxemia Afib Bruit CHF (congestive heart failure) Chronic atrial fibrillation Chronic respiratory failure Degenerative joint disease of right hip Diverticulosis DJD (degenerative joint disease), multiple sites DVT (deep venous thrombosis) 2004 Hearing loss History of pulmonary embolus (PE) HLD (hyperlipidemia) Hypertension Hypomagnesemia Hypothyroid Impaired glucose tolerance Morbid obesity with BMI of 50.0-59.9, adult Nonspecific interstitial pneumonitis On home O2 STARR on CPAP Post menopausal syndrome Pre-diabetes Pulmonary embolism 2004 Pulmonary HTN Rheumatoid arthritis Shingles Sleep apnea Stress incontinence Unilateral primary osteoarthritis, right knee (05/15/17) UTI (urinary tract infection) Surgical History Surgical History (Updated 01/27/20 @ 19:03 by Khloe Clement NP) H/O arthroscopic knee surgery rt knee H/O section H/O parathyroidectomy History of cardiac catheterization History of parathyroidectomy for hyperparathyroidism History of total bilateral knee replacement History of total knee replacement (TKR) bilateral Hx of cardiac cath 1994 Hx of section Hx of atiya
[2020-01-27 19:21] LABS: INR 4.4; Prothrombin Time 41.5 Seconds (11.1-14.7)
[2020-01-27 19:25] LABS: Blood Urea Nitrogen 91 mg/dL (7-17); Calcium 9.8 mg/dL (8.4-10.2); Carbon Dioxide 23 mmol/L (22-30); Chloride 106 mmol/L (98-107); Estimated CRCL calculation 24 ml/min; Estimated Glomerular Filt Rate 20; Glucose 97 mg/dL (65-105); Potassium 5.8 mmol/L (3.4-5.0); Sodium 135 mmol/L (137-145)
[2020-01-27] MEDS: CHOLESTYRAMINE (W/ SUGAR) 4 GM POWD.PACK PO (22:56)
[2020-01-27] MEDS: TRAZODONE HCL 50 MG TABLET 100 MG PO (22:56)
[2020-01-27] MEDS: SODIUM CHLORIDE 0.9% IV 1,000 ML 75 ML IV CONT (22:57)
[2020-01-27] MEDS: ALBUTEROL SULFATE NEB 2.5 MG/0.5 ML INH 5 MG INHALATION (23:15)
[2020-01-28] VITALS (8 sets, daily range): BP systolic 93–121; BP diastolic 54–75; PULSE 80–96; RESP 18–20; TEMP 36.4–36.6; O2SAT 92–100
[2020-01-28] MEDS: LEVOTHYROXINE SODIUM 112 MCG TABLET PO (06:52)
[2020-01-28 06:54] LABS: Basophils Percent Auto 0.3 % (0.2-1.2); Eosinophils Absolute Auto 0.2 K/mm3 (0-0.3); Eosinophils Percent Auto 2.1 % (0-4.4); Hematocrit 32.7 % (37.0-47.0); Immature Granulocyte Absolute 0.04 K/mm3 (0.00-0.031); Immature Granulocyte Percent A 0.6 % (0-0.5); Lymphocytes Absolute Auto 1.49 K/mm3 (0.9-3.2); Lymphocytes Percent Auto 20.5 % (18.3-44.2); Mean Corpuscular HGB Conc 30.6 g/dl (32-36); Mean Corpuscular Hemoglobin 30.2 pg (26-34); Mean Corpuscular Volume 98.8 fl (80-100); Mean Platelet Volume 9.8 fl (7.4-10.4); Monocytes Absolute Auto 0.6 K/mm3 (0.1-0.6); Monocytes Percent Auto 8.7 % (2.6-8.5); Neutrophils Absolute Auto 4.9 K/mm3 (1.3-6.7); Neutrophils Percent Auto 67.8 % (45.5-73.1); Platelet Count Result 169 k/mm3 (150-375); Red Blood Count 3.31 M/mm3 (4.2-5.4); Red Cell Distribution Width 15.9 % (11.5-14.5); White Blood Count 7.3 K/mm3 (4.5-10.0)
[2020-01-28 07:04] LABS: Alanine Aminotransferase 26 U/L (4-35); Albumin Level 3.4 g/dL (3.5-5.1); Alkaline Phosphatase 28 U/L (38-126); Aspartate Amino Transferase 24 U/L (14-36); Bilirubin,Total 0.4 mg/dL (0.2-1.3); Blood Urea Nitrogen 74 mg/dL (7-17); Carbon Dioxide 23 mmol/L (22-30); Chloride 106 mmol/L (98-107); Estimated CRCL calculation 34 ml/min; Estimated Glomerular Filt Rate 30; Glucose 81 mg/dL (65-105); Magnesium 2.1 mg/dL (1.6-2.3); Potassium 5.5 mmol/L (3.4-5.0); Sodium 139 mmol/L (137-145)
[2020-01-28] MEDS: METOPROLOL SUCCINATE EXT REL 100 MG TABCR PO (08:50)
[2020-01-28] MEDS: DIGOXIN TAB 125 MCG TABLET PO (08:51)
[2020-01-28] MEDS: predniSONE 10 MG TABLET PO (08:51)
[2020-01-28] MEDS: FOLIC ACID 1 MG TABLET PO (08:52)
[2020-01-28] MEDS: NIACIN SA 500 MG TABLET PO (08:52)
[2020-01-28] MEDS: CYANOCOBALAMIN 1,000 MCG TABLET 2000 MCG PO (08:53)
[2020-01-28] MEDS: CHOLECALCIFEROL 1,000 UNIT TABLET 2000 UNITS PO (08:53)
[2020-01-28] MEDS: MAGNESIUM OXIDE 400 MG TABLET 1200 MG PO (08:53)
[2020-01-28] MEDS: PRAVASTATIN SODIUM 20 MG TABLET 80 MG PO (08:54)
--- NOTE | 2020-01-28 09:31 | PM.CNCAR ---
Assessment and Plan Assessment and plan (1) Acute on chronic renal failure: Qualifiers: Acute renal failure type: unspecified Chronic kidney disease stage: unspecified stage Qualified Code(s): N17.9 - Acute kidney failure, unspecified; N18.9 - Chronic kidney disease, unspecified Code(s): N17.9 - Acute kidney failure, unspecified; N18.9 - Chronic kidney disease, unspecified Status: Acute Assessment and Plan: Secondary to dehydration. Recent admission for CHF exacerbation with adjustment of medicine. Patient is not sure exactly what she takes at home. I asked the patient to call her son and bring medications bottles to see exactly what she is taking at. Renal function improving with IV fluids. (2) CHF (congestive heart failure): Qualifiers: Heart failure chronicity: acute on chronic Heart failure type: diastolic Qualified Code(s): I50.33 - Acute on chronic diastolic (congestive) heart failure Code(s): I50.9 - Heart failure, unspecified Status: Acute Assessment and Plan: History of diastolic heart failure. Last echocardiogram May 2019 does not show cor pulomnale. The last echo shows normal RV size and systolic function. Diuretics on hold because of acute renal failure. (3) Chronic atrial fibrillation: Code(s): I48.20 - Chronic atrial fibrillation, unspecified Status: Chronic Assessment and Plan: Discontinue digoxin. It was discontinued last visit. She is warfarin at home. Her INR is supratherapeutic. Warfarin on hold. (4) Interstitial lung disease: Code(s): J84.9 - Interstitial pulmonary disease, unspecified Status: Acute Assessment and Plan: Patient has underlying rheumatoid arthritis. She follows up interstitial lung disease. History of Present Illness History of Present Illness Consult date/time: date of service: 01/28/20 09:31 Physician asking for consultation: abelardo fraga This is 69-year-old female who follows up with Dr. Reyes and has a past medical history of morbid obesity, obstructive sleep apnea on CPAP, rheumatoid arthritis on immunosuppression with methotrexate, hydroxychloroquine, and chronic prednisone, interstitial lung disease, hypertension, dyslipidemia, history of heart failure with preserved ejection fraction as well as persistent atrial fibrillation. She does have a previous history of pulmonary embolism and she is on warfarin as well(could not get a new anticoagulant agents because of cost) Patient was admitted to [facility] on January 02, 2020 for CHF exacerbation changes in diuretics were done. Patient comes to the hospital now complaining of weakness, dizziness and creatinine has increased from 1-3. She was discharged from the hospital January 08, 2020. At that time the Lasix was increased from 40 mg daily to 40 mg b.i.d., Aldactone was increased from 25 mg daily to 50 mg daily and digoxin was discontinued. Her heart failure was felt to be diastolic heart failure. Patient has a written home medication list that is totally different from the discharge summary list. I asked the patient to bring the medications bottles so that we will define exactly which she is taking at. Again patient told me that she came in because of dizziness and severe weakness but denies shortness of breath, chest pain, lower limb edema, orthopnea, paroxysmal nocturnal dyspnea, syncope. Denies fever chills vomiting or diarrhea. Her blood pressure on admission was 80/50. Her last echocardiogram May 2019 shows ejection fraction 55% diastolic dysfunction moderate left atrial enlargement. At that time the right ventricular systolic function and size was normal. RVSP 42. Blood work shows creatinine 3.4 and today it is 1.7. BUN 104. Potassium 5.5 this morning down from 5.7. EKG interpreted myself shows atrial fibrillation, LVH, poor R-wave progression. Requesting physician: Abelardo Fraga NP Consult reason: Other (Medicatio
[2020-01-28] MEDS: SODIUM CHLORIDE 0.9% IV 1,000 ML 75 ML IV CONT (12:11)
--- NOTE | 2020-01-28 13:23 | PM.IMPN ---
Progress Note: A&P Assessment and Plan (1) Acute on chronic renal failure: Qualifiers: Acute renal failure type: unspecified Chronic kidney disease stage: unspecified stage Qualified Code(s): N17.9 - Acute kidney failure, unspecified; N18.9 - Chronic kidney disease, unspecified Code(s): N17.9 - Acute kidney failure, unspecified; N18.9 - Chronic kidney disease, unspecified Status: Acute Assessment and Plan: 01/28/20 13:23 patient is 69-year-old female poor historian possibly mild dementia patient was recently admitted in hospital with exacerbation of CHF patient was discharged home on on Lasix and lisinopril, patient does not remember how much the medication as her home medication list does not match however on last admission patient was discharged home with 60/1.7 BUN and creatinine however patient presented with 104/3.10 apparently see had been taking double the dose of Lasix presenting complaint dizziness, Lasix and GEORIG-inhibitor are on hold now and patient being gently hydrated her creatinine has improved this morning to close to her baseline 1.7, patient is seen by biophysics teacher will review patient's home medication and further recommendation to follow, patient is also on Coumadin for AFib and is supratherapeutic Coumadin is on hold and will monitor, will have a PT OT evaluate the patient currently patient denies any chest pain shortness of breath palpitation fever or chills (2) Volume depletion: Code(s): E86.9 - Volume depletion, unspecified Status: Acute Assessment and Plan: Most likely secondary to over diuresing will gently hydrate the patient and monitor her kidney function patient kidney ultrasounds showed normal kidney (3) CHF (congestive heart failure): Qualifiers: Heart failure chronicity: acute on chronic Heart failure type: diastolic Qualified Code(s): I50.33 - Acute on chronic diastolic (congestive) heart failure Code(s): I50.9 - Heart failure, unspecified Status: Acute Assessment and Plan: Patient history of diastolic dysfunction currently patient is over diuresed and dry will continue to monitor with gentle hydration (4) Rheumatoid arthritis: Qualifiers: Rheumatoid arthritis location: multiple sites Rheumatoid factor presence: unspecified presence Qualified Code(s): M06.9 - Rheumatoid arthritis, unspecified Code(s): M06.9 - Rheumatoid arthritis, unspecified Status: Acute Assessment and Plan: Will continue home regimen (5) Chronic atrial fibrillation: Code(s): I48.20 - Chronic atrial fibrillation, unspecified Status: Chronic Assessment and Plan: Rate is controlled patient is off digoxin seen by biophysics teacher anticoagulated with a Coumadin which is supratherapeutic will hold and monitor (6) Supratherapeutic INR: Code(s): R79.1 - Abnormal coagulation profile Status: Acute Assessment and Plan: Patient INR is supratherapeutic most likely secondary acute on chronic kidney disease, as patient is volume depleted will monitor Subjective Date/time seen: 01/28/20 13:23 patient is 69-year-old female poor historian possibly mild dementia patient was recently admitted in hospital with exacerbation of CHF patient was discharged home on on Lasix and lisinopril, patient does not remember how much the medication as her home medication list does not match however on last admission patient was discharged home with 60/1.7 BUN and creatinine however patient presented with 104/3.10 apparently see had been taking double the dose of Lasix presenting complaint dizziness, Lasix and GEORGI-inhibitor are on hold now and patient being gently hydrated her creatinine has improved this morning to close to her baseline 1.7, patient is seen by biophysics teacher will review patient's home medication and further recommendation to follow, patient is also on Coumadin for AFib and is supratherapeutic Coumadin is on hold and will
[2020-01-28 17:38] LABS: Blood Urea Nitrogen 66 mg/dL (7-17); Calcium 9.5 mg/dL (8.4-10.2); Carbon Dioxide 20 mmol/L (22-30); Chloride 111 mmol/L (98-107); Estimated CRCL calculation 39 ml/min; Estimated Glomerular Filt Rate 34; Glucose 105 mg/dL (65-105); Potassium 6.3 mmol/L (3.4-5.0); Sodium 136 mmol/L (137-145)
[2020-01-28] MEDS: FUROSEMIDE INJ 40 MG/4 ML VIAL 20 MG IV PUSH (18:24)
[2020-01-28] MEDS: SODIUM POLYSTYRENE SULFONONATE 15 GM/60 ML BTL PO (18:47)
[2020-01-29] VITALS (12 sets, daily range): BP systolic 102–156; BP diastolic 61–74; PULSE 78–158; RESP 16–18; TEMP 36.4–36.7; O2SAT 99–100
[2020-01-29] MEDS: ACETAMINOPHEN 325 MG TABLET 650 MG PO (03:13)
[2020-01-29 06:18] LABS: Hematocrit 32.9 % (37.0-47.0); Hemoglobin 10.2 g/dL (12.0-15.0); Mean Corpuscular Hemoglobin 30.4 pg (26-34); Mean Corpuscular Volume 98.2 fl (80-100); Mean Platelet Volume 9.7 fl (7.4-10.4); Platelet Count Result 155 k/mm3 (150-375); Red Blood Count 3.35 M/mm3 (4.2-5.4)
[2020-01-29 06:27] LABS: INR 2.9; Prothrombin Time 29.6 Seconds (11.1-14.7)
[2020-01-29 06:45] LABS: Albumin Level 3.3 g/dL (3.5-5.1); Blood Urea Nitrogen 55 mg/dL (7-17); Calcium 8.9 mg/dL (8.4-10.2); Carbon Dioxide 21 mmol/L (22-30); Chloride 109 mmol/L (98-107); Estimated CRCL calculation 39 ml/min; Estimated Glomerular Filt Rate 34; Glucose 82 mg/dL (65-105); Phosphorus 2.9 mg/dL (2.5-4.5); Potassium 4.9 mmol/L (3.4-5.0); Sodium 137 mmol/L (137-145)
[2020-01-29] MEDS: LEVOTHYROXINE SODIUM 112 MCG TABLET PO (07:33)
[2020-01-29] MEDS: CHOLECALCIFEROL 1,000 UNIT TABLET 2000 UNITS PO (10:48)
[2020-01-29] MEDS: CYANOCOBALAMIN 1,000 MCG TABLET 2000 MCG PO (10:48)
[2020-01-29] MEDS: METOPROLOL SUCCINATE EXT REL 100 MG TABCR PO (10:49)
[2020-01-29] MEDS: FOLIC ACID 1 MG TABLET PO (10:49)
[2020-01-29] MEDS: MAGNESIUM OXIDE 400 MG TABLET 1200 MG PO (10:49)
[2020-01-29] MEDS: predniSONE 10 MG TABLET PO (10:50)
[2020-01-29] MEDS: NIACIN SA 500 MG TABLET PO (10:50)
[2020-01-29] MEDS: PRAVASTATIN SODIUM 20 MG TABLET 80 MG PO (10:50)
--- NOTE | 2020-01-29 12:15 | PM.PNCARD ---
Progress Note: A&P Assessment and Plan (1) Acute on chronic renal failure: Qualifiers: Acute renal failure type: unspecified Chronic kidney disease stage: unspecified stage Qualified Code(s): N17.9 - Acute kidney failure, unspecified; N18.9 - Chronic kidney disease, unspecified Code(s): N17.9 - Acute kidney failure, unspecified; N18.9 - Chronic kidney disease, unspecified Status: Acute Assessment and Plan: Secondary to dehydration. Improved with IV fluids. Continue to hold diuretics and lisinopril. Discharge dose of diuretics to be determined. May leave her off of lisinopril for now in order to increase her beta-marni. (2) CHF (congestive heart failure): Qualifiers: Heart failure chronicity: acute on chronic Heart failure type: diastolic Qualified Code(s): I50.33 - Acute on chronic diastolic (congestive) heart failure Code(s): I50.9 - Heart failure, unspecified Status: Acute Assessment and Plan: History of diastolic heart failure. This may be due to atrial fibrillation with rapid ventricular response. Last echocardiogram May 2019 does not show cor pulmonale. Normall RV size and systolic function. Hypotensive on arrival. Holding diuretics and lisinopril as above. Tolerating Metoprolol succinate 100 mg daily. (3) Chronic atrial fibrillation: Code(s): I48.20 - Chronic atrial fibrillation, unspecified Status: Chronic Assessment and Plan: She states that she has not been taking any digoxin (this was discontinued at the last admission). Heart rate is well controlled at rest. Heart rate up to the 160s to 170s this morning when she got up to the bathroom. From what I can tell she was symptomatic with that episode. She then walked in the hallways with physical therapy with heart rates up to the 150s without symptoms. Will increase her Metoprolol succinate up to 150 mg daily. Additional 50 mg now. Continue to monitor heart rate response with activity. May need further up titration. (4) Interstitial lung disease: Code(s): J84.9 - Interstitial pulmonary disease, unspecified Status: Acute Assessment and Plan: She wears oxygen at home at 1 L with activity. (5) Supratherapeutic INR: Code(s): R79.1 - Abnormal coagulation profile Status: Acute Assessment and Plan: INR 4.6 on admission. 2.9 today. She states she was taking 6 mg of warfarin at home. Warfarin will be restarted. She is on chronic anticoagulation for atrial fibrillation. Also has a history of pulmonary embolus. This is followed by her primary care provider Dr. Reyez Time Spent With Patient Time: Will be happy to discuss the plan with her son when he returns to the room. She was able to verbalized understanding wire was going to increase her Metoprolol succinate. Plan discussed with Dr. Sands [id number] 01/29/2020 Time with patient: 15 - 25 minutes Subjective Date/time seen: 01/29/20 12:15 Interval history: Follow-up for: Acute kidney injury, atrial fibrillation, long-term use anticoagulation-warfarin, history of diastolic heart failure Date of service: 01/29/2020 Subjective: Still feels weak. Denied any chest pain, pressure, tightness or squeezing. Short of breath with exertional activities but is much better with her oxygen that she uses with activity. This is unchanged from her baseline. Episode of extreme weakness as well as feeling faint when came back from the bathroom this morning. When she walked with physical therapy she did not have any of the same sensations. No palpitations. She is completely unaware of her atrial fibrillation rate. Review of Systems Constitutional: Constitutional: Denies chills, Denies fever(s), Reports lethargy, Reports malaise, Denies poor appetite and Reports weakness Eyes: Eyes: Denies eye discharge, Denies loss of vision and [place]
[2020-01-29] MEDS: METHOTREXATE 2.5 MG TAB (*CHEMO) 7.5 MG PO (13:43)
--- NOTE | 2020-01-29 16:30 | PM.IMPN ---
Progress Note: A&P Assessment and Plan (1) Acute on chronic renal failure: Qualifiers: Acute renal failure type: unspecified Chronic kidney disease stage: unspecified stage Qualified Code(s): N17.9 - Acute kidney failure, unspecified; N18.9 - Chronic kidney disease, unspecified Code(s): N17.9 - Acute kidney failure, unspecified; N18.9 - Chronic kidney disease, unspecified Status: Acute Assessment and Plan: 01/28/20 13:23 patient is 69-year-old female poor historian possibly mild dementia patient was recently admitted in hospital with exacerbation of CHF patient was discharged home on on Lasix and lisinopril, patient does not remember how much the medication as her home medication list does not match however on last admission patient was discharged home with 60/1.7 BUN and creatinine however patient presented with 104/3.10 apparently see had been taking double the dose of Lasix presenting complaint dizziness, Lasix and GEORGI-inhibitor are on hold now and patient being gently hydrated her creatinine has improved this morning to close to her baseline 1.7, patient is seen by van loader will review patient's home medication and further recommendation to follow, patient is also on Coumadin for AFib and is supratherapeutic Coumadin is on hold and will monitor, will have a PT OT evaluate the patient currently patient denies any chest pain shortness of breath palpitation fever or chills (2) Volume depletion: Code(s): E86.9 - Volume depletion, unspecified Status: Acute Assessment and Plan: Most likely secondary to over diuresing will gently hydrate the patient and monitor her kidney function patient kidney ultrasounds showed normal kidney (3) CHF (congestive heart failure): Qualifiers: Heart failure chronicity: acute on chronic Heart failure type: diastolic Qualified Code(s): I50.33 - Acute on chronic diastolic (congestive) heart failure Code(s): I50.9 - Heart failure, unspecified Status: Acute Assessment and Plan: Patient history of diastolic dysfunction currently patient is over diuresed and dry will continue to monitor with gentle hydration (4) Rheumatoid arthritis: Qualifiers: Rheumatoid arthritis location: multiple sites Rheumatoid factor presence: unspecified presence Qualified Code(s): M06.9 - Rheumatoid arthritis, unspecified Code(s): M06.9 - Rheumatoid arthritis, unspecified Status: Acute Assessment and Plan: Will continue home regimen (5) Chronic atrial fibrillation: Code(s): I48.20 - Chronic atrial fibrillation, unspecified Status: Chronic Assessment and Plan: Rate is controlled patient is off digoxin seen by van loader anticoagulated with a Coumadin which is supratherapeutic will hold and monitor (6) Supratherapeutic INR: Code(s): R79.1 - Abnormal coagulation profile Status: Acute Assessment and Plan: Patient INR is supratherapeutic most likely secondary acute on chronic kidney disease, as patient is volume depleted will monitor Subjective Date/time seen: 01/29/20 16:30 patient is 69-year-old female poor historian possibly mild dementia patient was recently admitted in hospital with exacerbation of CHF patient was discharged home on on Lasix and lisinopril, patient does not remember how much the medication as her home medication list does not match however on last admission patient was discharged home with 60/1.7 BUN and creatinine however patient presented with 104/3.10 apparently see had been taking double the dose of Lasix presenting complaint dizziness, Lasix and GEORGI-inhibitor are on hold now and patient being gently hydrated her creatinine has improved this morning to close to her baseline 1.7, patient is seen by van loader will review patient's home medication and further recommendation to follow, patient is also on Coumadin for AFib and is supratherapeutic Coumadin is on hold and wi
[2020-01-29] MEDS: WARFARIN (*PBKC) 3 MG TABLET 6 MG PO (18:51)
[2020-01-29] MEDS: TRAZODONE HCL 50 MG TABLET 100 MG PO (21:06)
[2020-01-29] MEDS: CHOLESTYRAMINE (W/ SUGAR) 4 GM POWD.PACK PO (21:09)
[2020-01-30] VITALS (15 sets, daily range): BP systolic 104–128; BP diastolic 62–88; PULSE 53–130; RESP 16–20; TEMP 36.4–36.7; O2SAT 18–100
[2020-01-30] MEDS: ACETAMINOPHEN 325 MG TABLET 650 MG PO (02:56)
[2020-01-30] MEDS: LEVOTHYROXINE SODIUM 112 MCG TABLET PO (06:06)
[2020-01-30 06:33] LABS: Hematocrit 32.4 % (37.0-47.0); Hemoglobin 10.1 g/dL (12.0-15.0); Mean Corpuscular HGB Conc 31.2 g/dl (32-36); Mean Corpuscular Hemoglobin 30.5 pg (26-34); Mean Corpuscular Volume 97.9 fl (80-100); Mean Platelet Volume 8.9 fl (7.4-10.4); Platelet Count Result 155 k/mm3 (150-375); Red Blood Count 3.31 M/mm3 (4.2-5.4); Red Cell Distribution Width 15.8 % (11.5-14.5); White Blood Count 7.9 K/mm3 (4.5-10.0)
[2020-01-30 06:37] LABS: INR 1.8; Prothrombin Time 20.5 Seconds (11.1-14.7)
[2020-01-30 07:10] LABS: Albumin Level 3.3 g/dL (3.5-5.1); Blood Urea Nitrogen 37 mg/dL (7-17); Calcium 9.3 mg/dL (8.4-10.2); Carbon Dioxide 24 mmol/L (22-30); Chloride 109 mmol/L (98-107); Estimated CRCL calculation 48 ml/min; Estimated Glomerular Filt Rate 44; Glucose 84 mg/dL (65-105); Phosphorus 2.3 mg/dL (2.5-4.5); Potassium 4.7 mmol/L (3.4-5.0); Sodium 135 mmol/L (137-145)
[2020-01-30] MEDS: MAGNESIUM OXIDE 400 MG TABLET 1200 MG PO (08:06)
[2020-01-30] MEDS: CYANOCOBALAMIN 1,000 MCG TABLET 2000 MCG PO (08:06)
[2020-01-30] MEDS: CHOLECALCIFEROL 1,000 UNIT TABLET 2000 UNITS PO (08:06)
[2020-01-30] MEDS: FOLIC ACID 1 MG TABLET PO (08:07)
[2020-01-30] MEDS: PRAVASTATIN SODIUM 20 MG TABLET 80 MG PO (08:07)
[2020-01-30] MEDS: METOPROLOL SUCCINATE EXT REL 100 MG TABCR PO (08:07)
[2020-01-30] MEDS: METOPROLOL SUCCINATE EXT REL 25 MG TABCR PO (08:10)
[2020-01-30] MEDS: predniSONE 10 MG TABLET PO (08:10)
--- NOTE | 2020-01-30 12:55 | PM.PNCARD ---
Progress Note: A&P Assessment and Plan (1) Acute on chronic renal failure: Qualifiers: Acute renal failure type: unspecified Chronic kidney disease stage: unspecified stage Qualified Code(s): N17.9 - Acute kidney failure, unspecified; N18.9 - Chronic kidney disease, unspecified Code(s): N17.9 - Acute kidney failure, unspecified; N18.9 - Chronic kidney disease, unspecified Status: Acute Assessment and Plan: Improving, multifactorial etiology. Clinically patient appears somewhat dry. Check orthostatic vital signs. Would not restart digoxin. (2) Chronic atrial fibrillation: Code(s): I48.20 - Chronic atrial fibrillation, unspecified Status: Chronic Assessment and Plan: Heart rate well controlled at rest, quite tachycardic with any activity again multifactorial secondary to atrial fibrillation, intravascular volume depletion, deconditioning and expect tachycardic response to improve when she further stabilizes and is more euvolemic. We discussed the concept of tachycardia bradycardia syndrome And need to be careful with regards to contributing clinical features for tachycardia and avoidance of bradycardia. Will observe Toprol XL 125 mg daily for now as well as BP. Continue warfarin goal INR 2-3. (3) FALCON (dyspnea on exertion): Code(s): R06.09 - Other forms of dyspnea Status: Acute Assessment and Plan: Multifactorial secondary to morbid obesity, dehydration, deconditioning And possibly atrial fibrillation. (4) Morbid obesity with BMI of 50.0-59.9, adult: Code(s): E66.01 - Morbid (severe) obesity due to excess calories; Z68.43 - Body mass index (BMI) 50.0-59.9, adult Status: Acute Assessment and Plan: counseled extensively on diet, reduction in caloric intake, sodium restriction CHF management importance of communication to our office with regards to weight gain and weight loss, change in diet, diarrhea and or any other concerns. Patient and family at bedside verbalized understanding and agreed with plan of care. We discussed at length a dynamic nature of her clinical conditions and have this may impact her AFib, renal function, CHF and volume status. (5) STARR on CPAP: Code(s): G47.33 - Obstructive sleep apnea (adult) (pediatric); Z99.89 - Dependence on other enabling machines and devices Status: Acute Assessment and Plan: Compliance (6) Interstitial lung disease: Code(s): J84.9 - Interstitial pulmonary disease, unspecified Status: Acute Assessment and Plan: Per primary service. (7) Rheumatoid arthritis: Qualifiers: Rheumatoid arthritis location: multiple sites Rheumatoid factor presence: unspecified presence Qualified Code(s): M06.9 - Rheumatoid arthritis, unspecified Code(s): M06.9 - Rheumatoid arthritis, unspecified Status: Acute Assessment and Plan: Per primary service. (8) CHF (congestive heart failure): Qualifiers: Heart failure chronicity: acute on chronic Heart failure type: diastolic Qualified Code(s): I50.33 - Acute on chronic diastolic (congestive) heart failure Code(s): I50.9 - Heart failure, unspecified Status: Acute Assessment and Plan: Compensated, clinically she remains slightly dry on exam. Resumption of diuretic therapy to be determined prior to discharge. spent approximately 40 minutes with the patient and her family answering all questions to their satisfaction with regards to heart failure management, sodium restriction, the complex interplay with her intermittent recurrent diarrhea, variance on caloric intake, sodium intake and those affects on her warfarin, volume status, diuretic need, complications from her rheumatoid arthritis, respiratory status, weight, deconditioning and prednisone. Subjective Date/time seen: Date of service:01/30/20 12:55 Follow-up for atrial fibrillation, history of heart failure
--- NOTE | 2020-01-30 14:26 | PM.IMPN ---
Progress Note: A&P Assessment and Plan (1) Acute on chronic renal failure: Qualifiers: Acute renal failure type: unspecified Chronic kidney disease stage: unspecified stage Qualified Code(s): N17.9 - Acute kidney failure, unspecified; N18.9 - Chronic kidney disease, unspecified Code(s): N17.9 - Acute kidney failure, unspecified; N18.9 - Chronic kidney disease, unspecified Status: Acute Assessment and Plan: 01/30/20 14:27 patient is 69-year-old female poor historian possibly mild dementia patient was recently admitted in hospital with exacerbation of CHF patient was discharged home on on Lasix and lisinopril, patient does not remember how much the medication as her home medication list does not match however on last admission patient was discharged home with 60/1.7 BUN and creatinine however patient presented with 104/3.10 apparently see had been taking double the dose of Lasix presenting complaint dizziness, Lasix and GEORGI-inhibitor are on hold now and patient being gently hydrated her creatinine has improved this morning to close to her baseline 1.7, patient is seen by linux system engineer will review patient's home medication and further recommendation to follow, patient is also on Coumadin for AFib and is supratherapeutic Coumadin is on hold and will monitor, hydration patient kidney function has improved close to her baseline, patient has a tachycardia most likely due to hypovolemia and anxiety, patient is seen by linux system engineer started the patient on Toprol XL 125 mg q.day plan is to monitor patient, plan is to prevent bradycardia tachycardia, currently patient denies any chest pain shortness of breath palpitation fever or chills, Coumadin was resumed on 01/28 her INR today is 1.8 (2) Volume depletion: Code(s): E86.9 - Volume depletion, unspecified Status: Acute Assessment and Plan: Most likely secondary to over diuresing will gently hydrate the patient and monitor her kidney function patient kidney ultrasounds showed normal kidney (3) CHF (congestive heart failure): Qualifiers: Heart failure chronicity: acute on chronic Heart failure type: diastolic Qualified Code(s): I50.33 - Acute on chronic diastolic (congestive) heart failure Code(s): I50.9 - Heart failure, unspecified Status: Acute Assessment and Plan: Patient history of diastolic dysfunction currently patient is over diuresed and dry will continue to monitor with gentle hydration (4) Rheumatoid arthritis: Qualifiers: Rheumatoid arthritis location: multiple sites Rheumatoid factor presence: unspecified presence Qualified Code(s): M06.9 - Rheumatoid arthritis, unspecified Code(s): M06.9 - Rheumatoid arthritis, unspecified Status: Acute Assessment and Plan: Will continue home regimen (5) Chronic atrial fibrillation: Code(s): I48.20 - Chronic atrial fibrillation, unspecified Status: Chronic Assessment and Plan: Rate is controlled patient is off digoxin seen by linux system engineer anticoagulated with a Coumadin which is supratherapeutic will hold and monitor (6) Supratherapeutic INR: Code(s): R79.1 - Abnormal coagulation profile Status: Acute Assessment and Plan: Patient INR is supratherapeutic most likely secondary acute on chronic kidney disease, as patient is volume depleted will monitor Subjective Date/time seen: 01/30/20 14:27 patient is 69-year-old female poor historian possibly mild dementia patient was recently admitted in hospital with exacerbation of CHF patient was discharged home on on Lasix and lisinopril, patient does not remember how much the medication as her home medication list does not match however on last admission patient was discharged home with 60/1.7 BUN and creatinine however patient presented with 104/3.10 apparently see had been taking double the dose of Lasix presenting complaint dizziness, Lasix and GEORGI-inhibitor are on hold n
[2020-01-30] MEDS: WARFARIN (*PBKC) 3 MG TABLET 6 MG PO (16:39)
[2020-01-30] MEDS: TRAZODONE HCL 50 MG TABLET 100 MG PO (20:18)
[2020-01-30] MEDS: TOLNAFTATE 1% POWDER 45 GM BTL 1 APPLIC TOPICAL (20:18)
[2020-01-30] MEDS: CHOLESTYRAMINE (W/ SUGAR) 4 GM POWD.PACK PO (21:38)
[2020-01-31] VITALS (13 sets, daily range): BP systolic 99–134; BP diastolic 58–75; PULSE 71–107; RESP 18; TEMP 36.6–36.7; O2SAT 96–100
--- NOTE | 2020-01-31 03:38 | PC.NURSE ---
Daylight Savings Time For Daylight Savings Time Ending in the Fall - Clocks are moved back. For Daylight Savings Time Beginning in the Spring - Clocks are moved ahead. For [facility], the time of change occurs at 0200 hrs. Time is taken from the sports book server. This entry on the patient's chart recognizes the change in time reflected during documentation. Example: 2 entries for vital signs may be charted for 0200 hrs.
[2020-01-31] MEDS: LEVOTHYROXINE SODIUM 112 MCG TABLET PO (05:37)
[2020-01-31 06:43] LABS: Hemoglobin 11.3 g/dL (12.0-15.0); Mean Corpuscular HGB Conc 31.4 g/dl (32-36); Mean Corpuscular Volume 98.6 fl (80-100); Mean Platelet Volume 9.3 fl (7.4-10.4); Platelet Count Result 198 k/mm3 (150-375); Red Blood Count 3.65 M/mm3 (4.2-5.4); Red Cell Distribution Width 15.7 % (11.5-14.5); White Blood Count 8.4 K/mm3 (4.5-10.0)
[2020-01-31 06:54] LABS: INR 1.5; Prothrombin Time 17.9 Seconds (11.1-14.7)
[2020-01-31 07:07] LABS: Blood Urea Nitrogen 30 mg/dL (7-17); Calcium 9.5 mg/dL (8.4-10.2); Carbon Dioxide 25 mmol/L (22-30); Chloride 106 mmol/L (98-107); Estimated CRCL calculation 45 ml/min; Estimated Glomerular Filt Rate 40; Glucose 93 mg/dL (65-105); Phosphorus 2.4 mg/dL (2.5-4.5); Potassium 4.7 mmol/L (3.4-5.0); Sodium 135 mmol/L (137-145)
[2020-01-31] MEDS: MAGNESIUM OXIDE 400 MG TABLET 1200 MG PO (09:14)
[2020-01-31] MEDS: CHOLECALCIFEROL 1,000 UNIT TABLET 2000 UNITS PO (09:14)
[2020-01-31] MEDS: PRAVASTATIN SODIUM 20 MG TABLET 80 MG PO (09:14)
[2020-01-31] MEDS: METOPROLOL SUCCINATE EXT REL 25 MG TABCR PO (09:15)
[2020-01-31] MEDS: predniSONE 10 MG TABLET PO (09:16)
[2020-01-31] MEDS: CYANOCOBALAMIN 1,000 MCG TABLET 2000 MCG PO (09:16)
[2020-01-31] MEDS: METOPROLOL SUCCINATE EXT REL 100 MG TABCR PO (09:16)
[2020-01-31] MEDS: FOLIC ACID 1 MG TABLET PO (09:16)
--- NOTE | 2020-01-31 13:29 | PM.IMPN ---
Progress Note: A&P Assessment and Plan (1) Acute on chronic renal failure: Qualifiers: Acute renal failure type: unspecified Chronic kidney disease stage: unspecified stage Qualified Code(s): N17.9 - Acute kidney failure, unspecified; N18.9 - Chronic kidney disease, unspecified Code(s): N17.9 - Acute kidney failure, unspecified; N18.9 - Chronic kidney disease, unspecified Status: Acute Assessment and Plan: 01/31/20 13:29 patient is 69-year-old female poor historian possibly mild dementia patient was recently admitted in hospital with exacerbation of CHF patient was discharged home on on Lasix and lisinopril, patient does not remember how much the medication as her home medication list does not match however on last admission patient was discharged home with 60/1.7 BUN and creatinine however patient presented with 104/3.10 apparently see had been taking double the dose of Lasix presenting complaint dizziness, Lasix and GEORGI-inhibitor are on hold now and patient being gently hydrated her creatinine has improved this morning to close to her baseline 1.7, patient is seen by boiler or engine operator will review patient's home medication and further recommendation to follow, patient is also on Coumadin for AFib and is supratherapeutic Coumadin is on hold and will monitor, hydration patient kidney function has improved close to her baseline, patient has a tachycardia most likely due to hypovolemia and anxiety, on 01/29 patient was seen by boiler or engine operator started the patient on Toprol XL 125 mg q.day plan is to monitor patient, plan is to prevent bradycardia tachycardia, Today patient HR is controlled her BP is soft and clinically stable, currently patient denies any chest pain shortness of breath palpitation fever or chills, Coumadin was resumed on 01/28 her INR today is 1.5. (2) Volume depletion: Code(s): E86.9 - Volume depletion, unspecified Status: Acute Assessment and Plan: Most likely secondary to over diuresing will gently hydrate the patient and monitor her kidney function patient kidney ultrasounds showed normal kidney (3) CHF (congestive heart failure): Qualifiers: Heart failure chronicity: acute on chronic Heart failure type: diastolic Qualified Code(s): I50.33 - Acute on chronic diastolic (congestive) heart failure Code(s): I50.9 - Heart failure, unspecified Status: Acute Assessment and Plan: Patient history of diastolic dysfunction currently patient is over diuresed and dry will continue to monitor with gentle hydration (4) Rheumatoid arthritis: Qualifiers: Rheumatoid arthritis location: multiple sites Rheumatoid factor presence: unspecified presence Qualified Code(s): M06.9 - Rheumatoid arthritis, unspecified Code(s): M06.9 - Rheumatoid arthritis, unspecified Status: Acute Assessment and Plan: Will continue home regimen (5) Chronic atrial fibrillation: Code(s): I48.20 - Chronic atrial fibrillation, unspecified Status: Chronic Assessment and Plan: Rate is controlled patient is off digoxin seen by boiler or engine operator anticoagulated with a Coumadin which is supratherapeutic will hold and monitor (6) Supratherapeutic INR: Code(s): R79.1 - Abnormal coagulation profile Status: Acute Assessment and Plan: Patient INR is supratherapeutic most likely secondary acute on chronic kidney disease, as patient is volume depleted will monitor Subjective Date/time seen: 01/31/20 13:29 patient is 69-year-old female poor historian possibly mild dementia patient was recently admitted in hospital with exacerbation of CHF patient was discharged home on on Lasix and lisinopril, patient does not remember how much the medication as her home medication list does not match however on last admission patient was discharged home with 60/1.7 BUN and creatinine however patient presented with 104/3.10 apparently see had been taking double the dose o
--- NOTE | 2020-01-31 14:11 | PM.PNCARD ---
Progress Note: A&P Assessment and Plan (1) Acute on chronic renal failure: Qualifiers: Acute renal failure type: unspecified Chronic kidney disease stage: unspecified stage Qualified Code(s): N17.9 - Acute kidney failure, unspecified; N18.9 - Chronic kidney disease, unspecified Code(s): N17.9 - Acute kidney failure, unspecified; N18.9 - Chronic kidney disease, unspecified Status: Acute Assessment and Plan: Improving, multifactorial etiology. Clinically patient appears somewhat dry. Check orthostatic vital signs. Would not restart digoxin. (2) Chronic atrial fibrillation: Code(s): I48.20 - Chronic atrial fibrillation, unspecified Status: Chronic Assessment and Plan: Heart rate well controlled at rest, quite tachycardic with any activity again multifactorial secondary to atrial fibrillation, intravascular volume depletion, deconditioning and expect tachycardic response to improve when she further stabilizes and is more euvolemic. We discussed the concept of tachycardia bradycardia syndrome And need to be careful with regards to contributing clinical features for tachycardia and avoidance of bradycardia. Continue Toprol XL 125 mg daily unable to reliably up titrate due to marginal BP. May consider outpatient Holter monitor to document heart rate control once patient has further reached steady state. Anticipate discharge home without resume Lasix at this time but she will require diuretic in the near future. She has been explicitly instructed to monitor her daily weight, follow low-sodium intake and to communicate weight gain is greater than 2-3 lb, worsening edema and/or dyspnea for recommendation to resume Lasix. Continue warfarin goal INR 2-3. Increase warfarin to 7 mg at bedtime. (3) FALCON (dyspnea on exertion): Code(s): R06.09 - Other forms of dyspnea Status: Acute Assessment and Plan: Multifactorial secondary to morbid obesity, dehydration, deconditioning And possibly atrial fibrillation. (4) Morbid obesity with BMI of 50.0-59.9, adult: Code(s): E66.01 - Morbid (severe) obesity due to excess calories; Z68.43 - Body mass index (BMI) 50.0-59.9, adult Status: Acute Assessment and Plan: counseled extensively on diet, reduction in caloric intake, sodium restriction CHF management importance of communication to our office with regards to weight gain and weight loss, change in diet, diarrhea and or any other concerns. Patient and family at bedside verbalized understanding and agreed with plan of care. We discussed at length a dynamic nature of her clinical conditions and have this may impact her AFib, renal function, CHF and volume status. (5) STARR on CPAP: Code(s): G47.33 - Obstructive sleep apnea (adult) (pediatric); Z99.89 - Dependence on other enabling machines and devices Status: Acute Assessment and Plan: Compliance (6) Interstitial lung disease: Code(s): J84.9 - Interstitial pulmonary disease, unspecified Status: Acute Assessment and Plan: Per primary service. (7) Rheumatoid arthritis: Qualifiers: Rheumatoid arthritis location: multiple sites Rheumatoid factor presence: unspecified presence Qualified Code(s): M06.9 - Rheumatoid arthritis, unspecified Code(s): M06.9 - Rheumatoid arthritis, unspecified Status: Acute Assessment and Plan: Per primary service. (8) CHF (congestive heart failure): Qualifiers: Heart failure chronicity: acute on chronic Heart failure type: diastolic Qualified Code(s): I50.33 - Acute on chronic diastolic (congestive) heart failure Code(s): I50.9 - Heart failure, unspecified Status: Acute Assessment and Plan: Compensated, clinically appears rather euvolemic at this time. Resumption of diuretic therapy most likely on an outpatient basis. Subjective Date/time seen: Date of service: 01/31/20 14:
[2020-01-31] MEDS: WARFARIN (*PBKC) 3 MG TABLET PO (16:49)
[2020-01-31] MEDS: WARFARIN (*PBKC) 4 MG TABLET PO (16:50)
[2020-01-31] MEDS: TOLNAFTATE 1% POWDER 45 GM BTL 1 APPLIC TOPICAL ×2 (16:50→22:55)
[2020-01-31] MEDS: CHOLESTYRAMINE (W/ SUGAR) 4 GM POWD.PACK PO (22:55)
[2020-01-31] MEDS: ACETAMINOPHEN 325 MG TABLET 650 MG PO (22:55)
[2020-02-01] VITALS (11 sets, daily range): BP systolic 110–121; BP diastolic 59–72; PULSE 59–110; RESP 16–20; TEMP 36.4–36.6; O2SAT 97–100
[2020-02-01 06:55] LABS: Hematocrit 30.8 % (37.0-47.0); Hemoglobin 9.6 g/dL (12.0-15.0); Mean Corpuscular HGB Conc 31.2 g/dl (32-36); Mean Corpuscular Hemoglobin 30.7 pg (26-34); Mean Corpuscular Volume 98.4 fl (80-100); Mean Platelet Volume 9.7 fl (7.4-10.4); Platelet Count Result 151 k/mm3 (150-375); Red Blood Count 3.13 M/mm3 (4.2-5.4); Red Cell Distribution Width 15.6 % (11.5-14.5); White Blood Count 6.9 K/mm3 (4.5-10.0)
[2020-02-01] MEDS: LEVOTHYROXINE SODIUM 112 MCG TABLET PO (06:56)
[2020-02-01 07:15] LABS: Albumin Level 3.3 g/dL (3.5-5.1); Blood Urea Nitrogen 25 mg/dL (7-17); Calcium 9.2 mg/dL (8.4-10.2); Carbon Dioxide 24 mmol/L (22-30); Chloride 108 mmol/L (98-107); Estimated CRCL calculation 44 ml/min; Estimated Glomerular Filt Rate 40; Glucose 78 mg/dL (65-105); Phosphorus 2.4 mg/dL (2.5-4.5); Potassium 4.4 mmol/L (3.4-5.0); Sodium 136 mmol/L (137-145)
[2020-02-01 07:25] LABS: INR 1.8; Prothrombin Time 20.5 Seconds (11.1-14.7)
[2020-02-01] MEDS: CYANOCOBALAMIN 1,000 MCG TABLET 2000 MCG PO (09:13)
[2020-02-01] MEDS: METOPROLOL SUCCINATE EXT REL 100 MG TABCR PO (09:14)
[2020-02-01] MEDS: PRAVASTATIN SODIUM 20 MG TABLET 80 MG PO (09:15)
[2020-02-01] MEDS: MAGNESIUM OXIDE 400 MG TABLET 1200 MG PO (09:15)
[2020-02-01] MEDS: METOPROLOL SUCCINATE EXT REL 25 MG TABCR PO (09:16)
[2020-02-01] MEDS: TOLNAFTATE 1% POWDER 45 GM BTL 1 APPLIC TOPICAL ×2 (09:16→20:13)
[2020-02-01] MEDS: FOLIC ACID 1 MG TABLET PO (09:16)
[2020-02-01] MEDS: predniSONE 10 MG TABLET PO (09:16)
[2020-02-01] MEDS: CHOLECALCIFEROL 1,000 UNIT TABLET 2000 UNITS PO (09:16)
--- NOTE | 2020-02-01 15:06 | PM.PNCARD ---
Progress Note: A&P Assessment and Plan (1) Acute on chronic renal failure: Qualifiers: Acute renal failure type: unspecified Chronic kidney disease stage: unspecified stage Qualified Code(s): N17.9 - Acute kidney failure, unspecified; N18.9 - Chronic kidney disease, unspecified Code(s): N17.9 - Acute kidney failure, unspecified; N18.9 - Chronic kidney disease, unspecified Status: Acute Assessment and Plan: Improving. Multifactorial. Slightly more lower extremity edema. Legs have been dependent. She has been up in the chair for 3 hours. Lungs are clear. No JVD. Would not restart diuretics at this point. (2) CHF (congestive heart failure): Qualifiers: Heart failure chronicity: acute on chronic Heart failure type: diastolic Qualified Code(s): I50.33 - Acute on chronic diastolic (congestive) heart failure Code(s): I50.9 - Heart failure, unspecified Status: Acute Assessment and Plan: History of diastolic heart failure. This may be due to atrial fibrillation with rapid ventricular response. Last echocardiogram May 2019 does not show cor pulmonale. Normall RV size and systolic function. Hypotensive on admission. Holding diuretics and lisinopril as above. Tolerating Metoprolol succinate 125 mg daily. CHF teaching has been done on multiple occasions by the nursing staff as well as Dr Reyes and myself. Instructed that her total fluid intake should be no more than 2 L per day. Concern for with the diarrhea restarting as it will be difficult to measure her urine output now. (3) Chronic atrial fibrillation: Code(s): I48.20 - Chronic atrial fibrillation, unspecified Status: Chronic Assessment and Plan: Heart rate is well controlled at rest. Does have excursions up to the 120s with activity but recovers very quickly. Metoprolol succinate was increased to 125 mg daily. No further up titration can be done due to blood pressure limitations. Discontinue telemetry monitoring. (4) Interstitial lung disease: Code(s): J84.9 - Interstitial pulmonary disease, unspecified Status: Acute Assessment and Plan: She wears oxygen at home at 1 L with activity. Management per hospitalist (5) Supratherapeutic INR: Code(s): R79.1 - Abnormal coagulation profile Status: Acute Assessment and Plan: INR 4.6 on admission. Warfarin was held. Restarted at 6 mg on 01/29/2020. Increased to 7 mg on 01/31/2020. Monitor INR closely. INR 1.8 today. Additional Plan Plan discussed with Dr. Sands [address] [facility]. Time Spent With Patient Time with patient: less than 15 minutes Subjective Date/time seen: 02/01/20 15:06 Interval history: Follow-up for: Acute kidney injury, atrial fibrillation, long-term use anticoagulation-warfarin, history of diastolic heart failure Date of service: 02/01/2020 Subjective: A spell of dizziness this morning. Also started having diarrhea today. Denied chest pain. Short of breath with exertional activities. Review of Systems Constitutional: Constitutional: Denies chills, Denies fever(s), Denies poor appetite and Reports weakness Eyes: Eyes: Denies eye discharge, Denies loss of vision and Denies eye pain ENT: Reports dizziness (Episode this morning.), Denies epistaxis, Denies nasal congestion and Denies sore throat Cardiovascular: Cardiovascular: Denies chest pain, Denies syncope, Reports pedal edema, Reports leg edema, Denies palpitations, Denies dyspnea, Reports dyspnea on exertion (Uses 1 L of oxygen with exertional activity.) and Denies orthopnea Respiratory: Respiratory: Denies cough, Reports dyspnea, Reports dyspnea on exertion (Uses 1 L of oxygen with activity.) and Denies wheezing Gastrointestinal: Gastrointestinal: Denies abdominal pain, Denies melena
--- NOTE | 2020-02-01 16:13 | PM.IMPN ---
Progress Note: A&P Assessment and Plan (1) Acute on chronic renal failure: Qualifiers: Acute renal failure type: unspecified Chronic kidney disease stage: unspecified stage Qualified Code(s): N17.9 - Acute kidney failure, unspecified; N18.9 - Chronic kidney disease, unspecified Code(s): N17.9 - Acute kidney failure, unspecified; N18.9 - Chronic kidney disease, unspecified Status: Acute Assessment and Plan: 02/01/20 16:13 patient is 69-year-old female poor historian possibly mild dementia patient was recently admitted in hospital with exacerbation of CHF patient was discharged home on on Lasix and lisinopril, patient does not remember how much the medication as her home medication list does not match however on last admission patient was discharged home with 60/1.7 BUN and creatinine however patient presented with 104/3.10 apparently see had been taking double the dose of Lasix presenting complaint dizziness, Lasix and GEORGI-inhibitor are on hold now and patient being gently hydrated her creatinine has improved this morning to close to her baseline 1.7, patient is seen by eyeglass lens grinder will review patient's home medication and further recommendation to follow, patient is also on Coumadin for AFib and is supratherapeutic Coumadin is on hold and will monitor, hydration patient kidney function has improved close to her baseline, patient has a tachycardia most likely due to hypovolemia and anxiety, on 01/29 patient was seen by eyeglass lens grinder started the patient on Toprol XL 125 mg q.day plan is to monitor patient, plan is to prevent bradycardia tachycardia, Today patient HR is controlled her BP is soft and clinically stable, was able to sit on the chair for 3 hrs, did c/o sligh dizziness, and had 2 loose BM, currently patient denies any chest pain shortness of breath palpitation fever or chills, Coumadin was resumed on 01/28, 6mg, and increaed to 7mg on 04/01 her INR today is 1.8, will monitor patient 1-2 more days. (2) Volume depletion: Code(s): E86.9 - Volume depletion, unspecified Status: Acute Assessment and Plan: Most likely secondary to over diuresing will gently hydrate the patient and monitor her kidney function patient kidney ultrasounds showed normal kidney (3) CHF (congestive heart failure): Qualifiers: Heart failure chronicity: acute on chronic Heart failure type: diastolic Qualified Code(s): I50.33 - Acute on chronic diastolic (congestive) heart failure Code(s): I50.9 - Heart failure, unspecified Status: Acute Assessment and Plan: Patient history of diastolic dysfunction currently patient is over diuresed and dry will continue to monitor with gentle hydration (4) Rheumatoid arthritis: Qualifiers: Rheumatoid arthritis location: multiple sites Rheumatoid factor presence: unspecified presence Qualified Code(s): M06.9 - Rheumatoid arthritis, unspecified Code(s): M06.9 - Rheumatoid arthritis, unspecified Status: Acute Assessment and Plan: Will continue home regimen (5) Chronic atrial fibrillation: Code(s): I48.20 - Chronic atrial fibrillation, unspecified Status: Chronic Assessment and Plan: Rate is controlled patient is off digoxin seen by eyeglass lens grinder anticoagulated with a Coumadin which is supratherapeutic will hold and monitor (6) Supratherapeutic INR: Code(s): R79.1 - Abnormal coagulation profile Status: Acute Assessment and Plan: Patient INR is supratherapeutic most likely secondary acute on chronic kidney disease, as patient is volume depleted will monitor Subjective Date/time seen: 02/01/20 16:13 patient is 69-year-old female poor historian possibly mild dementia patient was recently admitted in hospital with exacerbation of CHF patient was discharged home on on Lasix and lisinopril, patient does not remember how much the medication as her home medication list does not match however on last a
[2020-02-01] MEDS: WARFARIN (*PBKC) 3 MG TABLET PO (18:18)
[2020-02-01] MEDS: WARFARIN (*PBKC) 4 MG TABLET PO (18:18)
[2020-02-01] MEDS: CHOLESTYRAMINE (W/ SUGAR) 4 GM POWD.PACK PO (20:12)
[2020-02-02 03:30] VITALS: BP 122/71; BP 128/67; BP 135/70; PULSE 75; PULSE 85; PULSE 88; RESP 20; TEMP 36.6; O2SAT 94; O2SAT 96; O2SAT 97
[2020-02-02] MEDS: LEVOTHYROXINE SODIUM 112 MCG TABLET PO (05:30)
[2020-02-02 06:14] LABS: Hematocrit 30.9 % (37.0-47.0); Hemoglobin 9.6 g/dL (12.0-15.0); Mean Corpuscular HGB Conc 31.1 g/dl (32-36); Mean Corpuscular Hemoglobin 30.8 pg (26-34); Mean Platelet Volume 9.3 fl (7.4-10.4); Platelet Count Result 162 k/mm3 (150-375); Red Blood Count 3.12 M/mm3 (4.2-5.4); Red Cell Distribution Width 15.6 % (11.5-14.5); White Blood Count 6.9 K/mm3 (4.5-10.0)
[2020-02-02 06:26] LABS: Prothrombin Time 22.6 Seconds (11.1-14.7)
[2020-02-02 06:30] LABS: Albumin Level 3.3 g/dL (3.5-5.1); Blood Urea Nitrogen 24 mg/dL (7-17); Calcium 9.1 mg/dL (8.4-10.2); Carbon Dioxide 26 mmol/L (22-30); Chloride 106 mmol/L (98-107); Estimated CRCL calculation 48 ml/min; Estimated Glomerular Filt Rate 44; Glucose 77 mg/dL (65-105); Phosphorus 2.5 mg/dL (2.5-4.5); Potassium 4.4 mmol/L (3.4-5.0); Sodium 136 mmol/L (137-145)
[2020-02-02 06:40] VITALS: BP 122/66; PULSE 85; RESP 20; TEMP 36.4; O2SAT 98
[2020-02-02] MEDS: PRAVASTATIN SODIUM 20 MG TABLET 80 MG PO (09:10)
[2020-02-02 09:11] VITALS: PULSE 88
[2020-02-02] MEDS: CYANOCOBALAMIN 1,000 MCG TABLET 2000 MCG PO (09:11)
[2020-02-02] MEDS: CHOLECALCIFEROL 1,000 UNIT TABLET 2000 UNITS PO (09:11)
[2020-02-02] MEDS: METOPROLOL SUCCINATE EXT REL 100 MG TABCR PO (09:11)
[2020-02-02 09:14] VITALS: PULSE 88
[2020-02-02] MEDS: MAGNESIUM OXIDE 400 MG TABLET 1200 MG PO (09:14)
[2020-02-02] MEDS: predniSONE 10 MG TABLET PO (09:14)
[2020-02-02] MEDS: METOPROLOL SUCCINATE EXT REL 25 MG TABCR PO (09:14)
[2020-02-02] MEDS: FOLIC ACID 1 MG TABLET PO (09:14)
[2020-02-02] MEDS: TOLNAFTATE 1% POWDER 45 GM BTL 1 APPLIC TOPICAL (09:15)
[2020-02-02 14:00] VITALS: BP 99/65; PULSE 78; RESP 18; TEMP 36.5; O2SAT 100
--- NOTE | 2020-02-02 15:29 | PM.PNCARD ---
Progress Note: A&P Assessment and Plan (1) Acute on chronic renal failure: Qualifiers: Acute renal failure type: unspecified Chronic kidney disease stage: unspecified stage Qualified Code(s): N17.9 - Acute kidney failure, unspecified; N18.9 - Chronic kidney disease, unspecified Code(s): N17.9 - Acute kidney failure, unspecified; N18.9 - Chronic kidney disease, unspecified Status: Acute Assessment and Plan: Improving. Multifactorial. She states she has been gaining weight over the last 2 days. She verbalizes an understanding about doing daily weights after she voids in the morning, writing the results on a piece of paper and bring them to her office appointments. Lower edema unchanged. She verbalizes an understanding regarding of fluid restriction to 2 L.. Will discharge on furosemide 40 mg daily and potassium 10 mEq daily. BMP to be drawn next Saturday, February 08, 2020 with results to go to Dr. Reyes's and Dr. Reyez's office. She is to NOT take spironolactone, lisinopril or magnesium oxide. (2) CHF (congestive heart failure): Qualifiers: Heart failure chronicity: acute on chronic Heart failure type: diastolic Qualified Code(s): I50.33 - Acute on chronic diastolic (congestive) heart failure Code(s): I50.9 - Heart failure, unspecified Status: Acute Assessment and Plan: History of diastolic heart failure. This may be due to atrial fibrillation with rapid ventricular response. Last echocardiogram May 2019 does not show cor pulmonale. Normall RV size and systolic function. Hypotensive on admission. Medications as above. Tolerating Metoprolol succinate 125 mg daily. (3) Chronic atrial fibrillation: Code(s): I48.20 - Chronic atrial fibrillation, unspecified Status: Chronic Assessment and Plan: Heart rate is well controlled at rest. Does have excursions up to the 120s with activity but recovers very quickly. Metoprolol succinate was increased to 125 mg daily. No further up titration can be done due to blood pressure limitations. Digoxin was discontinued prior to this admission. She states she has not been taking any digoxin. She is wearing her CPAP faithfully. (4) Interstitial lung disease: Code(s): J84.9 - Interstitial pulmonary disease, unspecified Status: Acute Assessment and Plan: She wears oxygen at home at 1 L with activity. She is to follow-up with Dr. Norman as an outpatient (5) Supratherapeutic INR: Code(s): R79.1 - Abnormal coagulation profile Status: Acute Assessment and Plan: INR 4.6 on admission. Warfarin was held. Restarted at 6 mg on 01/29/2020. Increased to 7 mg on 01/31/2020. INR 2.0 today. Will discharge on 6 mg of warfarin and check INR on Saturday, February 08, 2020 with results to go to Dr Reyes and . Additional Plan Niacin has been discontinued. Continue pravastatin at 80 mg daily. Any further diarrhea she is to follow-up with Dr. Reyez [place] to discharge from cardiac standpoint Plan discussed with Dr Dee Kulkarni 02/02/2020 Subjective Date/time seen: 02/02/20 15:29 Interval history: Follow-up for: Acute kidney injury, atrial fibrillation, long-term use anticoagulation-warfarin, history of diastolic heart failure Date of service: 02/02/2020 Subjective: Feeling really well today. Walked with physical therapy. Oxygen saturation did not drop even without oxygen. Denied chest discomfort or lightheadedness. Short of breath with exertional activities continues to improve. Lower extremity edema unchanged. Review of Systems Constitutional: Constitutional: Denies chills, Denies fever(s), Denies poor appetite and Reports weakness (Significantly improved) Eyes: Eyes: Denies eye discharge, Denies loss of vision and Denies eye pain
--- NOTE | 2020-02-02 16:12 | PM.DS ---
DS: Diagnosis Admitting Diagnosis Admitting Diagnosis: Acute kidney failure, unspecified Discharge Diagnosis (1) Acute on chronic renal failure: Qualifiers: Acute renal failure type: unspecified Chronic kidney disease stage: unspecified stage Qualified Code(s): N17.9 - Acute kidney failure, unspecified; N18.9 - Chronic kidney disease, unspecified Code(s): N17.9 - Acute kidney failure, unspecified; N18.9 - Chronic kidney disease, unspecified Status: Acute Assessment and Plan: 02/01/20 16:13 patient is 69-year-old female poor historian possibly mild dementia patient was recently admitted in hospital with exacerbation of CHF patient was discharged home on on Lasix and lisinopril, patient does not remember how much the medication as her home medication list does not match however on last admission patient was discharged home with 60/1.7 BUN and creatinine however patient presented with 104/3.10 apparently see had been taking double the dose of Lasix presenting complaint dizziness, Lasix and GEORGI-inhibitor are on hold now and patient being gently hydrated her creatinine has improved this morning to close to her baseline 1.7, patient is seen by railroad accountant will review patient's home medication and further recommendation to follow, patient is also on Coumadin for AFib and is supratherapeutic Coumadin is on hold and will monitor, hydration patient kidney function has improved close to her baseline, patient has a tachycardia most likely due to hypovolemia and anxiety, on 01/29 patient was seen by railroad accountant started the patient on Toprol XL 125 mg q.day plan is to monitor patient, plan is to prevent bradycardia tachycardia, Today patient HR is controlled her BP is soft and clinically stable, was able to sit on the chair for 3 hrs, did c/o sligh dizziness, and had 2 loose BM, currently patient denies any chest pain shortness of breath palpitation fever or chills, Coumadin was resumed on 01/28, 6mg, and increaed to 7mg on 04/01 her INR today is 1.8, will monitor patient 1-2 more days. (2) Volume depletion: Code(s): E86.9 - Volume depletion, unspecified Status: Acute Assessment and Plan: Most likely secondary to over diuresing will gently hydrate the patient and monitor her kidney function patient kidney ultrasounds showed normal kidney (3) CHF (congestive heart failure): Qualifiers: Heart failure chronicity: acute on chronic Heart failure type: diastolic Qualified Code(s): I50.33 - Acute on chronic diastolic (congestive) heart failure Code(s): I50.9 - Heart failure, unspecified Status: Acute Assessment and Plan: Patient history of diastolic dysfunction currently patient is over diuresed and dry will continue to monitor with gentle hydration (4) Rheumatoid arthritis: Qualifiers: Rheumatoid arthritis location: multiple sites Rheumatoid factor presence: unspecified presence Qualified Code(s): M06.9 - Rheumatoid arthritis, unspecified Code(s): M06.9 - Rheumatoid arthritis, unspecified Status: Acute Assessment and Plan: Will continue home regimen (5) Chronic atrial fibrillation: Code(s): I48.20 - Chronic atrial fibrillation, unspecified Status: Chronic Assessment and Plan: Rate is controlled patient is off digoxin seen by railroad accountant anticoagulated with a Coumadin which is supratherapeutic will hold and monitor (6) Supratherapeutic INR: Code(s): R79.1 - Abnormal coagulation profile Status: Acute Assessment and Plan: Patient INR is supratherapeutic most likely secondary acute on chronic kidney disease, as patient is volume depleted will monitor DS: Summary Hospital Course Reason for hospitalization: Ayanna Cash is a 69 year old female who was just admitted here on 01/02/2020. The patient was here with congestive heart failure and UTI. When she was discharged she lost nearly 30 lb the patient had changes in
== END 2020-02-02 17:46 | disposition home health service (06) | DRG 682 ==
LOC: ANHED 11:26 → ANH3MEDSUR 12:26
PROVIDERS: Nurse Practitioner; Admitting Provider Family Medicine; Emergency Provider Emergency Medicine; PCP Internal Medicine; Visit Provider Family Medicine
DX: N17.9 Acute kidney failure, unspecified (principal); I50.33 Acute on chronic diastolic (congestive) heart failure; J96.10 Chronic respiratory failure, unspecified whether with hypoxia or hypercapnia; I48.20 Chronic atrial fibrillation, unspecified; Z68.42 Body mass index [BMI] 45.0-49.9, adult; I50.32 Chronic diastolic (congestive) heart failure; J84.9 Interstitial pulmonary disease, unspecified; I13.0 Hypertensive heart and chronic kidney disease with heart failure and stage 1 through stage 4 chronic kidney disease, or unspecified chronic kidney disease; N18.9 Chronic kidney disease, unspecified; E86.9 Volume depletion, unspecified; M16.12 Unilateral primary osteoarthritis, left hip; K57.90 Diverticulosis of intestine, part unspecified, without perforation or abscess without bleeding; Z86.718 Personal history of other venous thrombosis and embolism; H91.90 Unspecified hearing loss, unspecified ear; E83.42 Hypomagnesemia; E78.5 Hyperlipidemia, unspecified; E03.9 Hypothyroidism, unspecified; E66.01 Morbid (severe) obesity due to excess calories; Z86.711 Personal history of pulmonary embolism; Z99.81 Dependence on supplemental oxygen; R73.03 Prediabetes; J84.89 Other specified interstitial pulmonary diseases; M06.9 Rheumatoid arthritis, unspecified; N39.3 Stress incontinence (female) (male); I27.20 Pulmonary hypertension, unspecified; Z90.49 Acquired absence of other specified parts of digestive tract; Z96.653 Presence of artificial knee joint, bilateral; E89.2 Postprocedural hypoparathyroidism; D64.9 Anemia, unspecified; E78.2 Mixed hyperlipidemia; G47.33 Obstructive sleep apnea (adult) (pediatric); L29.9 Pruritus, unspecified; E86.0 Dehydration; Z79.52 Long term (current) use of systemic steroids; Z79.01 Long term (current) use of anticoagulants; F03.90 Unspecified dementia, unspecified severity, without behavioral disturbance, psychotic disturbance, mood disturbance, and anxiety; I95.9 Hypotension, unspecified
CPT/HCPCS: 36415; 51701; 70450; 76775; 80048; 80053; 80069; 80162; 81001; 83735; 84100; 84439; 84443; 84480; 85025; 85027; 85610; 85730; 87077; 87086; 87088; 87186; 87804; 93005; 94640; 96360; 96361; 97110; 97116; 97161; 97165; 97530; 97535; 99285; A9270; G0378; J1940; J7030; J7120; J7512

== ENCOUNTER 2020-03-18 08:21 | Outpatient (CLI) | payer MEDICARE, SELFPAY ==
[2020-03-18 11:04] LABS: Hepatitis B Surface Antigen Negative (Negative)
[2020-03-18 11:22] LABS: Hepatitis B Surface Anti Res Negative; Hepatitis C Virus Antibody Negative (Negative)
[2020-03-21 03:01] LABS: Hepatitis B Core Ab Total Nonreactive (Nonreactive)
[2020-03-21 11:43] LABS: Hepatitis C RNA, Quant PCR <15 IU/mL
[2020-03-21 13:00] LABS: Hepatitis B DNA PCR <1.00 Log IU/mL; Hepatitis B DNA PCR <10 IU/mL
== END 2020-03-18 08:22 | disposition home or self-care (01) ==
LOC: ANHLAB 08:25
PROVIDERS: PCP Internal Medicine; Visit Provider Internal Medicine Rheumatology
DX: Z11.59 Encounter for screening for other viral diseases (principal)
CPT/HCPCS: 36415; 86704; 86706; 86803; 87340; 87517; 87522

== ENCOUNTER 2020-05-03 07:51 | Outpatient (CLI) | payer MEDICARE, SELFPAY ==
[2020-05-03 08:46] LABS: Blood Urea Nitrogen 36 mg/dL (7-17); Calcium 10.1 mg/dL (8.4-10.2); Carbon Dioxide 24 mmol/L (22-30); Chloride 106 mmol/L (98-107); Estimated Glomerular Filt Rate 44; Glucose 86 mg/dL (65-105); Potassium 3.9 mmol/L (3.4-5.0); Sodium 138 mmol/L (137-145)
== END 2020-05-03 07:52 | disposition home or self-care (01) ==
LOC: ANHLAB 07:54
PROVIDERS: PCP Internal Medicine; Visit Provider Nurse Practitioner Adult Health
DX: I50.32 Chronic diastolic (congestive) heart failure (principal); N17.9 Acute kidney failure, unspecified
CPT/HCPCS: 36415; 80048

== ENCOUNTER 2020-06-06 07:42 | Outpatient (RCR) | payer MEDICARE, SELFPAY ==
[2020-03-10 09:17] LABS: Hematocrit 39.2 % (37.0-47.0); Hemoglobin 12.5 g/dL (12.0-15.0)
[2020-03-10 09:26] LABS: INR 2.7; Prothrombin Time 28.4 Seconds (11.1-14.7)
[2020-03-10 09:30] LABS: Alanine Aminotransferase 30 U/L (4-35); Albumin Level 4.2 g/dL (3.5-5.1); Alkaline Phosphatase 52 U/L (38-126); Aspartate Amino Transferase 32 U/L (14-36); Bilirubin,Total 0.4 mg/dL (0.2-1.3); Blood Urea Nitrogen 35 mg/dL (7-17); Calcium 10.2 mg/dL (8.4-10.2); Carbon Dioxide 29 mmol/L (22-30); Chloride 103 mmol/L (98-107); Cholesterol 154 mg/dL (0-200); Estimated Glomerular Filt Rate 37; Glucose 85 mg/dL (65-105); HDL Direct 70 mg/dL; Magnesium 1.8 mg/dL (1.6-2.3); Potassium 3.9 mmol/L (3.4-5.0); Sodium 139 mmol/L (137-145); Triglycerides 94 mg/dL (<150)
[2020-03-10 09:38] LABS: Hemoglobin A1C 5.9 % (<5.7)
[2020-03-10 09:41] LABS: LDL Cholesterol Direct 48 mg/dL
[2020-03-22 08:27] LABS: Hematocrit 37.2 % (37.0-47.0); Hemoglobin 11.6 g/dL (12.0-15.0); Mean Corpuscular HGB Conc 31.2 g/dl (32-36); Mean Corpuscular Hemoglobin 30.9 pg (26-34); Mean Corpuscular Volume 99.2 fl (80-100); Mean Platelet Volume 9.4 fl (7.4-10.4); Platelet Count Result 268 k/mm3 (150-375); Red Blood Count 3.75 M/mm3 (4.2-5.4); White Blood Count 9.4 K/mm3 (4.5-10.0)
[2020-03-22 08:41] LABS: Alanine Aminotransferase 22 U/L (4-35); Albumin Level 4.1 g/dL (3.5-5.1); Alkaline Phosphatase 48 U/L (38-126); Aspartate Amino Transferase 29 U/L (14-36); Bilirubin,Total 0.3 mg/dL (0.2-1.3); Blood Urea Nitrogen 30 mg/dL (7-17); Calcium 10.5 mg/dL (8.4-10.2); Carbon Dioxide 30 mmol/L (22-30); Chloride 103 mmol/L (98-107); Estimated Glomerular Filt Rate 37; Glucose 85 mg/dL (65-105); Potassium 4.1 mmol/L (3.4-5.0); Sodium 138 mmol/L (137-145)
[2020-03-24 22:13] LABS: NIL 0.01 IU/mL; Quantiferon TB Plus, 1T NEGATIVE (NEGATIVE)
[2020-03-31 09:30] LABS: Prothrombin Time 49.5 Seconds (11.1-14.7)
[2020-03-31 09:58] LABS: INR 5.5
[2020-04-07 07:58] LABS: INR 3.3; Prothrombin Time 32.6 Seconds (11.1-14.7)
[2020-04-12 08:33] LABS: INR 4.8
[2020-04-19 08:27] LABS: Blood Urea Nitrogen 30 mg/dL (7-17); Calcium 10.1 mg/dL (8.4-10.2); Carbon Dioxide 31 mmol/L (22-30); Chloride 103 mmol/L (98-107); Estimated Glomerular Filt Rate 34; Glucose 87 mg/dL (65-105); Potassium 3.7 mmol/L (3.4-5.0); Sodium 138 mmol/L (137-145)
[2020-04-19 08:33] LABS: INR 1.9; Prothrombin Time 20.9 Seconds (11.1-14.7)
[2020-04-26 08:25] LABS: INR 2.5; Prothrombin Time 26.5 Seconds (11.1-14.7)
[2020-05-10 09:15] LABS: INR 2.7; Prothrombin Time 28.2 Seconds (11.1-14.7)
[2020-06-06 08:12] LABS: Basophils Percent Auto 0.4 % (0.2-1.2); Eosinophils Absolute Auto 0.1 K/mm3 (0-0.3); Eosinophils Percent Auto 1.4 % (0-4.4); Hematocrit 37.2 % (37.0-47.0); Hemoglobin 11.8 g/dL (12.0-15.0); Immature Granulocyte Absolute 0.03 K/mm3 (0.00-0.031); Immature Granulocyte Percent A 0.4 % (0-0.5); Lymphocytes Absolute Auto 2.24 K/mm3 (0.9-3.2); Lymphocytes Percent Auto 28.2 % (18.3-44.2); Mean Corpuscular HGB Conc 31.7 g/dl (32-36); Mean Corpuscular Hemoglobin 32.3 pg (26-34); Mean Corpuscular Volume 101.9 fl (80-100); Mean Platelet Volume 9.9 fl (7.4-10.4); Monocytes Absolute Auto 0.7 K/mm3 (0.1-0.6); Monocytes Percent Auto 8.3 % (2.6-8.5); Neutrophils Absolute Auto 4.9 K/mm3 (1.3-6.7); Neutrophils Percent Auto 61.3 % (45.5-73.1); Platelet Count Result 215 k/mm3 (150-375); Red Blood Count 3.65 M/mm3 (4.2-5.4); Red Cell Distribution Width 14.6 % (11.5-14.5); White Blood Count 7.9 K/mm3 (4.5-10.0)
[2020-06-06 08:22] LABS: Prothrombin Time 22.2 Seconds (11.1-14.7)
[2020-06-06 08:29] LABS: Alanine Aminotransferase 16 U/L (4-35); Albumin Level 4.3 g/dL (3.5-5.1); Alkaline Phosphatase 46 U/L (38-126); Aspartate Amino Transferase 23 U/L (14-36); Bilirubin,Total 0.4 mg/dL (0.2-1.3); Blood Urea Nitrogen 31 mg/dL (7-17); Calcium 10.2 mg/dL (8.4-10.2); Carbon Dioxide 26 mmol/L (22-30); Chloride 105 mmol/L (98-107); Estimated Glomerular Filt Rate 44; Glucose 84 mg/dL (65-105); Potassium 3.7 mmol/L (3.4-5.0); Sodium 139 mmol/L (137-145)
== END 2020-06-08 23:59 | disposition home or self-care (01) ==
LOC: ANHLAB 07:42
PROVIDERS: PCP Internal Medicine; Visit Provider Internal Medicine
DX: Z51.81 Encounter for therapeutic drug level monitoring (principal); Z11.59 Encounter for screening for other viral diseases; I50.9 Heart failure, unspecified; Z79.899 Other long term (current) drug therapy
CPT/HCPCS: 36415; 80048; 80053; 80061; 80076; 83036; 83735; 85014; 85018; 85025; 85027; 85610; 86480

== ENCOUNTER 2020-07-27 18:10 | Emergency (ER) | payer MEDICARE, SELFPAY ==
[2020-07-27] VITALS (7 sets, daily range): BP systolic 112–143; BP diastolic 62–89; PULSE 58–79; RESP 17–20; TEMP 36.3–36.6; O2SAT 98–100
--- NOTE | ~2020-07-27 | CT_ITS ---
EXAMINATION: CT brain wo con DATE: 07/27/2020 21:00 INDICATION: Dizziness. TECHNIQUE: Computed tomography (CT) of the head was performed without intravenous contrast. The mA wa s adjusted according to patient size. Iterative reconstruction technique was employed. Exam dose: 60 5.33 mGy-cm total exam DLP. COMPARISON: 01/2020 CT brain FINDINGS: Bilateral carotid siphon internal carotid artery calcifications. There is nonspecific dimin ished attenuation of the cerebral white matter, likely due to chronic small vessel ischemic changes. No intracranial mass lesion or hemorrhage or cerebrovascular accident is detected. No midline shift o r mass effect. No subdural or epidural hematoma. There is moderate cerebral and cerebellar atrophy. No fracture or bone destruction of the cranial vault. Left nasal antral window. There is some soft tissue thickening of the wall of the left maxillary sinu s. Frontal sinuses are not developed. The mastoid air cells are normally developed and aerated. IMPRESSION: Cerebral atherosclerosis and chronic small vessel ischemic changes of the cerebral white matter No acute intracranial finding Reviewed, dictated and finalized at [facility] Reviewed, dictated and finalized at [facility].
[2020-07-27 18:28] LABS: Basophils Percent Auto 0.3 % (0.2-1.2); Eosinophils Percent Auto 0.5 % (0-4.4); Hemoglobin 12.3 g/dL (12.0-15.0); Immature Granulocyte Absolute 0.04 K/mm3 (0.00-0.031); Immature Granulocyte Percent A 0.5 % (0-0.5); Lymphocytes Percent Auto 15.1 % (18.3-44.2); Mean Corpuscular HGB Conc 32.4 g/dl (32-36); Mean Corpuscular Hemoglobin 32.5 pg (26-34); Mean Corpuscular Volume 100.5 fl (80-100); Mean Platelet Volume 10.1 fl (7.4-10.4); Monocytes Absolute Auto 0.5 K/mm3 (0.1-0.6); Monocytes Percent Auto 5.9 % (2.6-8.5); Neutrophils Absolute Auto 6.2 K/mm3 (1.3-6.7); Neutrophils Percent Auto 77.7 % (45.5-73.1); Platelet Count Result 241 k/mm3 (150-375); Red Blood Count 3.78 M/mm3 (4.2-5.4); Red Cell Distribution Width 15.4 % (11.5-14.5); White Blood Count 7.9 K/mm3 (4.5-10.0)
[2020-07-27 18:43] LABS: Alanine Aminotransferase 18 U/L (4-35); Albumin Level 4.6 g/dL (3.5-5.1); Alkaline Phosphatase 45 U/L (38-126); Anion Gap 9 mmol/L (8-16); Aspartate Amino Transferase 24 U/L (14-36); Bilirubin,Total 0.4 mg/dL (0.2-1.3); Blood Urea Nitrogen 39 mg/dL (7-17); Carbon Dioxide 27 mmol/L (22-30); Chloride 100 mmol/L (98-107); Estimated CRCL calculation 36 ml/min; Estimated Glomerular Filt Rate 34; Glucose 128 mg/dL (65-105); Lipase 208 U/L (23-300); Potassium 3.8 mmol/L (3.4-5.0); Sodium 136 mmol/L (137-145)
[2020-07-27 18:46] LABS: INR 2.9; Partial Thromboplastin Time 30.8 SECONDS (22.3-36.8)
--- NOTE | 2020-07-27 19:42 | ECG_ITS ---
Measurements Intervals [place] Rate: 62 P: DC: 0 QRS: -25 QRSD: 122 T: 18 QT: 433 QTc: 443 Interpretive Statements ATRIAL FIBRILLATION VENTRICULAR PREMATURE COMPLEXES INTRAVENTRICULAR CONDUCTION DELAY LEFT VENTRICULAR HYPERTROPHY WITH ST-T CHANGE BORDERLINE R WAVE PROGRESSION, ANTERIOR LEADS ABNORMAL ECG Electronically Signed On 07-28-2020 8:10:08 CDT by Michael Parker D.O.
--- NOTE | 2020-07-27 20:21 | ED.DIZZY ---
HPI - Dizziness General Chief Complaint: Dizziness Stated Complaint: dizzy Time Seen by Provider: 07/27/20 19:40 Source: patient Mode of arrival: ambulatory Limitations: no limitations History of Present Illness HPI Narrative: This patient is a 70 year old female with multiple medical problems who present for evaluation of dizziness. Patient states she was sitting when she started to feel like she was spinning. She also had cold sweats and diarrhea. She states she had 2 episodes of nonbloody diarrhea, but she denies associated nausea, vomiting, or abdominal pain. She has not complaints at this time. She denies headache and focal weakness. MD elicited complaint: dizziness Related Data Home Medications Medication Instructions Recorded Confirmed folic acid 1 mg tablet 1 mg PO DAILY 10/06/19 02/04/20 cholecalciferol (vitamin D3) 50 mcg PO DAILY 01/01/20 02/04/20 [Vitamin D3] Vitamin D3 2,000 unit PO DAILY 01/27/20 02/04/20 cholestyramine (with sugar) 4 g PO HS 01/27/20 02/04/20 [Questran] hydroxychloroquine 400 mg PO DAILY 01/27/20 02/04/20 levothyroxine 112 mcg PO DAILY 01/27/20 02/04/20 methotrexate sodium 7.5 mg PO WEEKLY 01/27/20 02/04/20 potassium chloride 10 meq PO DAILY 01/27/20 02/04/20 Allergies Allergy/AdvReac Type Severity Reaction Status Date / Time No Known Allergies Allergy Verified 02/04/20 08:06 Review of Systems Review of Systems: All systems reviewed & are unremarkable except as noted in HPI and below Constitutional: Constitutional: Denies chills and Denies fever(s) Eyes: Eyes: Denies change in vision ENT: Reports vertigo, Denies nasal congestion and Denies sore throat Cardiovascular: Cardiovascular: Denies chest pain Respiratory: Respiratory: Denies cough and Denies dyspnea Gastrointestinal: Gastrointestinal: Denies abdominal pain, Reports diarrhea, Denies nausea and Denies vomiting Neurologic: Reports vertigo and Denies focal weakness PMFSH Past Medical History Medical History Acute on chronic respiratory failure with hypoxemia Afib Bruit CHF (congestive heart failure) Chronic atrial fibrillation Chronic respiratory failure Degenerative joint disease of right hip Diverticulosis DJD (degenerative joint disease), multiple sites DVT (deep venous thrombosis) 2004 Hearing loss History of pulmonary embolus (PE) HLD (hyperlipidemia) Hypertension Hypomagnesemia Hypothyroid Impaired glucose tolerance Interstitial lung disease Morbid obesity with BMI of 50.0-59.9, adult Nonspecific interstitial pneumonitis On home O2 STARR on CPAP Post menopausal syndrome Pre-diabetes Pulmonary embolism 2004 Pulmonary HTN Rheumatoid arthritis Shingles Sleep apnea Stress incontinence Unilateral primary osteoarthritis, right knee (05/15/17) UTI (urinary tract infection) Social History Social History Social History: The patient is a full code and her daughter is a durable power estate attorney for healthcare. Smoking status: Never smoker Second hand tobacco smoke exposure: No Alcohol intake: never Substance use: never Substance use type: does not use Gender identity (if verbalized by the patient): Female Spiritual care concerns: No Agree to blood products: Yes Exam Const: General: no acute distress, alert and ill appearing chronically Nutritional Appearance: obese Orientation/consciousness: patient oriented x3 HENMT: Ears: TM's normal bilaterally Face and sinus: face symmetric Mouth: Yes Normal oral and palatal mucosa present, Yes lip normal and Yes oropharynx normal Eyes: Pupils: Equal, round and reactive pupils present EOM: EOMs intact bilaterally Chest: Chest palpation & inspection: normal inspection of the chest Resp: Effort & Inspection: normal respiratory effort and no retractions Auscultation: clear to auscultation bilaterally Cardio: Rate: re
[2020-07-27 20:42] LABS: Add Urine Microscopic? YES; Appearance Urine Clear (Clear); Bacteria Urine Trace /hpf; Bilirubin Urine Negative (Negative); Blood Urine Negative (Negative); Color Urine Yellow (Yellow); Glucose Urine UA Negative (Negative); Ketones Urine Negative (Negative); Leukocyte Esterase Ur 2+ LEU/UL (Negative); Nitrate Urine Positive (Negative); Protein Urine Negative (Negative); RBC Urine 0-2 /hpf (0-2); Specific Grav Ur 1.011 (1.001-1.035); Squamous Epithelial Cell Urine Few /hpf (Few); Urobilinogen Urine Negative mg/dL (<2.0)
[2020-07-27] MEDS: SODIUM CHLORIDE 0.9% IV 500 ML 999 ML IV CONT (21:05)
[2020-07-27] MEDS: ONDANSETRON INJ 4 MG/2 ML VIAL IV PUSH (21:05)
[2020-07-27] MEDS: MECLIZINE HCL 25 MG TABLET PO (21:09)
== END 2020-07-27 23:20 | disposition home or self-care (01) ==
PROVIDERS: Emergency Medicine; Emergency Provider General Practice; PCP Internal Medicine
DX: I48.20 Chronic atrial fibrillation, unspecified (principal); R42 Dizziness and giddiness; N39.0 Urinary tract infection, site not specified; I50.9 Heart failure, unspecified; E03.9 Hypothyroidism, unspecified; E78.5 Hyperlipidemia, unspecified; I11.0 Hypertensive heart disease with heart failure; J84.9 Interstitial pulmonary disease, unspecified; G47.33 Obstructive sleep apnea (adult) (pediatric); Z99.81 Dependence on supplemental oxygen; I27.20 Pulmonary hypertension, unspecified; M06.9 Rheumatoid arthritis, unspecified; M17.11 Unilateral primary osteoarthritis, right knee; E66.01 Morbid (severe) obesity due to excess calories; Z79.01 Long term (current) use of anticoagulants; Z86.711 Personal history of pulmonary embolism; Z86.718 Personal history of other venous thrombosis and embolism; Z68.42 Body mass index [BMI] 45.0-49.9, adult
CPT/HCPCS: 36415; 70450; 80053; 81001; 83690; 85025; 85610; 85730; 87077; 87086; 87088; 87186; 93005; 96361; 96374; 99284; A9270; J2405; J7040

== ENCOUNTER 2020-08-04 08:18 | Outpatient (CLI) | payer MEDICARE, SELFPAY ==
[2020-08-04 09:28] LABS: Alanine Aminotransferase 17 U/L (4-35); Albumin Level 4.1 g/dL (3.5-5.1); Alkaline Phosphatase 41 U/L (38-126); Anion Gap 7 mmol/L (8-16); Aspartate Amino Transferase 24 U/L (14-36); Bilirubin,Total 0.4 mg/dL (0.2-1.3); Blood Urea Nitrogen 38 mg/dL (7-17); Calcium 10.2 mg/dL (8.4-10.2); Carbon Dioxide 26 mmol/L (22-30); Chloride 106 mmol/L (98-107); Cholesterol 158 mg/dL (0-200); Estimated Glomerular Filt Rate 37; Glucose 82 mg/dL (65-105); HDL Direct 83 mg/dL; Sodium 139 mmol/L (137-145); Triglycerides 74 mg/dL (<150)
[2020-08-04 09:39] LABS: LDL Cholesterol Direct 46 mg/dL
[2020-08-04 10:02] LABS: Hemoglobin A1C 5.4 % (<5.7)
[2020-08-04 10:06] LABS: Vitamin D 25 Hydroxy 45.3 ng/mL
== END 2020-08-04 08:19 | disposition home or self-care (01) ==
LOC: ANHLAB 08:18
PROVIDERS: PCP Internal Medicine; Visit Provider Internal Medicine
DX: I50.9 Heart failure, unspecified (principal); R73.02 Impaired glucose tolerance (oral); R73.03 Prediabetes; E78.5 Hyperlipidemia, unspecified; E55.9 Vitamin D deficiency, unspecified; Z13.21 Encounter for screening for nutritional disorder
CPT/HCPCS: 36415; 80053; 80061; 82306; 82607; 83036; 83970

== ENCOUNTER 2020-08-12 08:43 | Outpatient (CLI) | payer MEDICARE, SELFPAY ==
[2020-08-12 09:33] LABS: Add Urine Microscopic? YES; Appearance Urine Clear (Clear); Bacteria Urine 1+ /hpf; Bilirubin Urine Negative (Negative); Blood Urine Negative (Negative); Color Urine Yellow (Yellow); Glucose Urine UA Negative (Negative); Ketones Urine Negative (Negative); Leukocyte Esterase Ur 3+ LEU/UL (Negative); Mucus Urine Rare /lpf; Nitrate Urine Positive (Negative); Protein Urine Negative (Negative); RBC Urine 0-2 /hpf (0-2); Specific Grav Ur 1.011 (1.001-1.035); Squamous Epithelial Cell Urine Few /hpf (Few); Urobilinogen Urine Negative mg/dL (<2.0); WBC Urine 16-20 /hpf
== END 2020-08-12 08:44 | disposition home or self-care (01) ==
LOC: ANHLAB 08:44
PROVIDERS: PCP Internal Medicine; Visit Provider Nurse Practitioner
DX: N39.0 Urinary tract infection, site not specified (principal); A49.9 Bacterial infection, unspecified
CPT/HCPCS: 81001; 87077; 87086; 87088; 87186

== ENCOUNTER 2020-08-29 08:11 | Outpatient (RCR) | payer MEDICARE, SELFPAY ==
[2020-08-29 09:12] LABS: Total Protein Urine Random 10 mg/dL
[2020-08-29 09:14] LABS: Basophils Absolute Auto 0.1 K/mm3 (0.0-0.1); Basophils Percent Auto 0.6 % (0.2-1.2); Eosinophils Absolute Auto 0.1 K/mm3 (0-0.3); Eosinophils Percent Auto 0.6 % (0-4.4); Hemoglobin 12.2 g/dL (12.0-15.0); Immature Granulocyte Absolute 0.05 K/mm3 (0.00-0.031); Immature Granulocyte Percent A 0.6 % (0-0.5); Lymphocytes Absolute Auto 1.38 K/mm3 (0.9-3.2); Lymphocytes Percent Auto 15.4 % (18.3-44.2); Mean Corpuscular HGB Conc 32.1 g/dl (32-36); Mean Corpuscular Hemoglobin 33.1 pg (26-34); Mean Platelet Volume 10.1 fl (7.4-10.4); Monocytes Absolute Auto 0.7 K/mm3 (0.1-0.6); Monocytes Percent Auto 7.8 % (2.6-8.5); Neutrophils Absolute Auto 6.7 K/mm3 (1.3-6.7); Platelet Count Result 214 k/mm3 (150-375); Red Blood Count 3.69 M/mm3 (4.2-5.4)
[2020-08-29 09:17] LABS: Sodium Urine Random 14 meq/L
[2020-08-29 09:21] LABS: Alanine Aminotransferase 23 U/L (4-35); Albumin Level 4.5 g/dL (3.5-5.1); Alkaline Phosphatase 40 U/L (38-126); Anion Gap 8 mmol/L (8-16); Aspartate Amino Transferase 28 U/L (14-36); Bilirubin,Total 0.4 mg/dL (0.2-1.3); Blood Urea Nitrogen 44 mg/dL (7-17); Calcium 10.5 mg/dL (8.4-10.2); Carbon Dioxide 30 mmol/L (22-30); Chloride 102 mmol/L (98-107); Estimated Glomerular Filt Rate 32; Glucose 92 mg/dL (65-105); Phosphorus 3.1 mg/dL (2.5-4.5); Potassium 4.2 mmol/L (3.4-5.0); Sodium 140 mmol/L (137-145)
[2020-08-29 09:28] LABS: Complement C3 124 mg/dL (88-165)
[2020-09-01 12:22] LABS: Anti Glomerular Basement Memb <1.0 AI (<1.0)
[2020-09-01 22:19] LABS: Albumin 3.8 g/dL (3.8-4.8); Alpha 1 Globulin 0.3 g/dL (0.2-0.3); Alpha 2 Globulin 0.9 g/dL (0.5-0.9); Beta 1 Globulin 0.4 g/dL (0.4-0.6); Gamma Globulin 0.8 g/dL (0.8-1.7); Protein, Total 6.5 g/dL (6.1-8.1)
[2020-09-02 07:34] LABS: Creatinine, Random Urine 56 mg/dL (20-275); Total Protein/Creatinine Ratio 71 mg/g creat (21-161)
[2020-09-04 20:07] LABS: ANCA Screen Negative (Negative)
== END 2020-11-27 23:59 | disposition home or self-care (01) ==
LOC: ANHLAB 08:11
PROVIDERS: PCP Internal Medicine; Visit Provider Internal Medicine Rheumatology
DX: Z51.81 Encounter for therapeutic drug level monitoring (principal); I12.9 Hypertensive chronic kidney disease with stage 1 through stage 4 chronic kidney disease, or unspecified chronic kidney disease; N18.30 Chronic kidney disease, stage 3 unspecified; R80.8 Other proteinuria
CPT/HCPCS: 36415; 80069; 80076; 81050; 82570; 83520; 84155; 84156; 84165; 84166; 84300; 85025; 85999; 86021; 86038; 86160; 86225

== ENCOUNTER 2020-09-08 08:22 | Outpatient (RCR) | payer MEDICARE, SELFPAY ==
[2020-07-05 08:24] LABS: INR 2.2; Prothrombin Time 23.7 Seconds (11.1-14.7)
[2020-08-04 09:21] LABS: Parathyroid Intact 55.3 pg/mL (7.5-53.5)
[2020-09-08 09:24] LABS: INR 2.5; Prothrombin Time 26.4 Seconds (11.1-14.7)
== END 2020-10-03 23:59 | disposition home or self-care (01) ==
LOC: ANHLAB 08:22
PROVIDERS: PCP Internal Medicine; Visit Provider Internal Medicine
DX: Z51.81 Encounter for therapeutic drug level monitoring (principal); Z79.899 Other long term (current) drug therapy
CPT/HCPCS: 36415; 83970; 85610

== ENCOUNTER 2020-12-13 08:24 | Outpatient (RCR) | payer MEDICARE, SELFPAY ==
[2020-12-13 08:50] LABS: Basophils Percent Auto 0.6 % (0.2-1.2); Eosinophils Absolute Auto 0.3 K/mm3 (0-0.3); Eosinophils Percent Auto 3.5 % (0-4.4); Immature Granulocyte Absolute 0.03 K/mm3 (0.00-0.031); Immature Granulocyte Percent A 0.4 % (0-0.5); Lymphocytes Absolute Auto 1.31 K/mm3 (0.9-3.2); Lymphocytes Percent Auto 18.2 % (18.3-44.2); Mean Corpuscular HGB Conc 31.4 g/dl (32-36); Mean Corpuscular Hemoglobin 33.4 pg (26-34); Mean Corpuscular Volume 106.4 fl (80-100); Mean Platelet Volume 9.5 fl (7.4-10.4); Monocytes Absolute Auto 0.8 K/mm3 (0.1-0.6); Monocytes Percent Auto 10.8 % (2.6-8.5); Neutrophils Absolute Auto 4.8 K/mm3 (1.3-6.7); Neutrophils Percent Auto 66.5 % (45.5-73.1); Platelet Count Result 243 k/mm3 (150-375); Red Blood Count 3.29 M/mm3 (4.2-5.4); Red Cell Distribution Width 13.5 % (11.5-14.5); White Blood Count 7.2 K/mm3 (4.5-10.0)
[2020-12-13 08:59] LABS: Alanine Aminotransferase 29 U/L (4-35); Albumin Level 4.2 g/dL (3.5-5.1); Alkaline Phosphatase 44 U/L (38-126); Anion Gap 4 mmol/L (8-16); Aspartate Amino Transferase 32 U/L (14-36); Bilirubin,Total 0.5 mg/dL (0.2-1.3); Blood Urea Nitrogen 35 mg/dL (7-17); Calcium 10.2 mg/dL (8.4-10.2); Carbon Dioxide 30 mmol/L (22-30); Chloride 104 mmol/L (98-107); Estimated Glomerular Filt Rate 40; Glucose 98 mg/dL (65-105); Potassium 4.2 mmol/L (3.4-5.0); Sodium 138 mmol/L (137-145)
== END 2021-03-13 23:59 | disposition home or self-care (01) ==
LOC: ANHLAB 08:24
PROVIDERS: PCP Internal Medicine; Visit Provider Internal Medicine Rheumatology
DX: Z51.81 Encounter for therapeutic drug level monitoring (principal); Z79.899 Other long term (current) drug therapy
CPT/HCPCS: 36415; 80048; 80076; 85025

== ENCOUNTER 2020-12-22 08:53 | Outpatient (CLI) | payer MEDICARE, SELFPAY ==
[2020-12-22 10:11] LABS: Albumin Level 4.2 g/dL (3.5-5.1); Anion Gap 3 mmol/L (8-16); Blood Urea Nitrogen 39 mg/dL (7-17); Calcium 10.3 mg/dL (8.4-10.2); Carbon Dioxide 28 mmol/L (22-30); Chloride 106 mmol/L (98-107); Estimated Glomerular Filt Rate 37; Glucose 85 mg/dL (65-105); Phosphorus 3.5 mg/dL (2.5-4.5); Potassium 4.3 mmol/L (3.4-5.0); Sodium 137 mmol/L (137-145)
[2020-12-22 10:15] LABS: Creatinine Urine 49.3 mg/dL; Total Protein Urine Random 11 mg/dL; Ur Ttl Prot Creatinine Ratio 0.22 mg/mg (0-0.20)
[2020-12-22 10:22] LABS: Parathyroid Intact 46.5 pg/mL (7.5-53.5)
[2020-12-22 11:10] LABS: Vitamin D 25 Hydroxy 43.6 ng/mL
== END 2020-12-22 08:54 | disposition home or self-care (01) ==
LOC: ANHLAB 08:55
PROVIDERS: Family Provider Internal Medicine; PCP Internal Medicine; Visit Provider Internal Medicine Nephrology
DX: N18.32 Chronic kidney disease, stage 3b (principal); I12.9 Hypertensive chronic kidney disease with stage 1 through stage 4 chronic kidney disease, or unspecified chronic kidney disease; R80.8 Other proteinuria
CPT/HCPCS: 36415; 80069; 82306; 82570; 83970; 84156

== ENCOUNTER 2021-01-06 07:56 | Outpatient (RCR) | payer MEDICARE, SELFPAY ==
[2020-10-13 08:58] LABS: INR 1.7; Prothrombin Time 20.2 Seconds (11.1-14.7)
[2020-10-21 07:32] LABS: INR 1.8; Prothrombin Time 21.1 Seconds (11.1-14.7)
[2020-11-03 09:09] LABS: INR 2.1; Prothrombin Time 24.5 Seconds (11.1-14.7)
[2020-11-24 08:58] LABS: INR 2.2; Prothrombin Time 24.7 Seconds (11.1-14.7)
[2020-12-22 10:03] LABS: INR 1.4; Prothrombin Time 17.8 Seconds (11.1-14.7)
[2020-12-29 08:56] LABS: INR 1.4; Prothrombin Time 17.3 Seconds (11.1-14.7)
[2021-01-06 08:44] LABS: INR 1.5; Prothrombin Time 19.1 Seconds (11.1-14.7)
== END 2021-01-11 23:59 | disposition home or self-care (01) ==
LOC: ANHLAB 07:56
PROVIDERS: PCP Internal Medicine; Visit Provider Internal Medicine
DX: Z51.81 Encounter for therapeutic drug level monitoring (principal); I48.20 Chronic atrial fibrillation, unspecified; Z79.899 Other long term (current) drug therapy
CPT/HCPCS: 36415; 85610

== ENCOUNTER 2021-02-06 08:20 | Outpatient (RCR) | payer MEDICARE, SELFPAY ==
[2021-01-13 09:14] LABS: INR 1.8; Prothrombin Time 21.4 Seconds (11.1-14.7)
[2021-01-20 09:01] LABS: Prothrombin Time 22.9 Seconds (11.1-14.7)
[2021-01-30 08:56] LABS: INR 1.9; Prothrombin Time 22.7 Seconds (11.1-14.7)
== END 2021-04-13 23:59 | disposition home or self-care (01) ==
LOC: ANHLAB 08:20
PROVIDERS: PCP Internal Medicine; Visit Provider Internal Medicine
DX: I48.20 Chronic atrial fibrillation, unspecified (principal)
CPT/HCPCS: 36415; 85610

== ENCOUNTER 2021-02-06 08:24 | Outpatient (CLI) | payer MEDICARE, SELFPAY ==
[2021-02-06 08:48] LABS: Basophils Percent Auto 0.5 % (0.2-1.2); Eosinophils Absolute Auto 0.2 K/mm3 (0-0.3); Eosinophils Percent Auto 3.3 % (0-4.4); Hematocrit 34.8 % (37.0-47.0); Immature Granulocyte Absolute 0.03 K/mm3 (0.00-0.031); Immature Granulocyte Percent A 0.5 % (0-0.5); Lymphocytes Absolute Auto 1.01 K/mm3 (0.9-3.2); Lymphocytes Percent Auto 18.4 % (18.3-44.2); Mean Corpuscular HGB Conc 31.6 g/dl (32-36); Mean Corpuscular Hemoglobin 32.4 pg (26-34); Mean Corpuscular Volume 102.7 fl (80-100); Mean Platelet Volume 9.9 fl (7.4-10.4); Monocytes Absolute Auto 0.6 K/mm3 (0.1-0.6); Monocytes Percent Auto 10.6 % (2.6-8.5); Neutrophils Absolute Auto 3.7 K/mm3 (1.3-6.7); Neutrophils Percent Auto 66.7 % (45.5-73.1); Platelet Count Result 193 k/mm3 (150-375); Red Blood Count 3.39 M/mm3 (4.2-5.4); Red Cell Distribution Width 13.7 % (11.5-14.5); White Blood Count 5.5 K/mm3 (4.5-10.0)
[2021-02-06 09:05] LABS: Alanine Aminotransferase 24 U/L (4-35); Albumin Level 4.1 g/dL (3.5-5.1); Alkaline Phosphatase 43 U/L (38-126); Anion Gap 4 mmol/L (8-16); Aspartate Amino Transferase 33 U/L (14-36); Bilirubin,Total 0.4 mg/dL (0.2-1.3); Blood Urea Nitrogen 42 mg/dL (7-17); Calcium 10.1 mg/dL (8.4-10.2); Carbon Dioxide 30 mmol/L (22-30); Chloride 105 mmol/L (98-107); Cholesterol 153 mg/dL (0-200); Estimated Glomerular Filt Rate 37; Glucose 91 mg/dL (65-105); HDL Direct 80 mg/dL; Potassium 4.5 mmol/L (3.4-5.0); Sodium 139 mmol/L (137-145); Triglycerides 84 mg/dL (<150)
[2021-02-06 09:16] LABS: LDL Cholesterol Direct 39 mg/dL
[2021-02-06 11:40] LABS: Vitamin D 25 Hydroxy 46.8 ng/mL
[2021-02-06 13:26] LABS: Hemoglobin A1C 4.9 % (<5.7)
== END 2021-02-06 08:25 | disposition home or self-care (01) ==
PROVIDERS: PCP Internal Medicine; Visit Provider Nurse Practitioner
DX: R73.03 Prediabetes (principal); E78.2 Mixed hyperlipidemia; E55.9 Vitamin D deficiency, unspecified; D64.9 Anemia, unspecified
CPT/HCPCS: 36415; 80053; 80061; 82306; 82607; 83036; 85025; 85610

== ENCOUNTER 2021-02-26 21:27 | Emergency (ER) | payer MEDICARE, SELFPAY ==
[2021-02-26] VITALS (12 sets, daily range): BP systolic 140–151; BP diastolic 54–64; PULSE 52–58; RESP 13–20; TEMP 36.7; O2SAT 100
--- NOTE | ~2021-02-26 | CT_ITS ---
EXAMINATION: CT brain wo con DATE: 02/26/2021 22:25 INDICATION: Dizziness. TECHNIQUE: Computed tomography (CT) of the head was performed without intravenous contrast. The mA wa s adjusted according to patient size. Iterative reconstruction technique was employed. The dose-lengt h product was 605.33 mGy-cm. COMPARISON: Head CT 07/27/2020 FINDINGS: There is no intracranial hemorrhage, acute infarction, or abnormal intracranial mass lesion . There are scattered areas of low attenuation in the cerebral white matter, which is within normal l imits for the patient's age. The ventricles are normal in size. The orbits are normal. There is mild mucosal thickening in left maxillary sinus. The mastoid air cells are normal. IMPRESSION: 1. Normal aging brain. Reviewed, dictated and finalized at location A. IMPRESSION: 1. Normal aging brain.
--- NOTE | ~2021-02-26 | XR_ITS ---
EXAMINATION: XR chest 2V DATE: 02/26/2021 22:20 INDICATION: Weakness. Dizziness. TECHNIQUE: Frontal and lateral views of the chest were obtained. COMPARISON: Chest single view 01/01/2020, CT abdomen and pelvis 01/02/2020 FINDINGS: The lung volumes are normal. There is a chronic heterogeneous diffuse interstitial pattern in the lungs with a peripheral predominance. No pleural effusion or pneumothorax. Cardiomegaly is not ed. There is enlargement of main pulmonary artery, consistent with pulmonary arterial hypertension. IMPRESSION: 1. Stable diffuse lung disease, consistent with chronic interstitial lung disease. 2. Cardiomegaly. Reviewed, dictated and finalized at location A. IMPRESSION: 1. Stable diffuse lung disease, consistent with chronic interstitial lung disea se. 2. Cardiomegaly.
--- NOTE | 2021-02-26 21:37 | ECG_ITS ---
Measurements Intervals [place] Rate: 56 P: 7 NM: 182 QRS: -23 QRSD: 125 T: 23 QT: 445 QTc: 431 Interpretive Statements SINUS BRADYCARDIA INTRAVENTRICULAR CONDUCTION DELAY DELAYED PRECORDIAL R/S TRANSITION LEFT VENTRICULAR HYPERTROPHY WITH ST-T CHANGE BORDERLINE ECG Electronically Signed On 02-27-2021 7:06:03 CDT by Michael Parker D.O.
--- NOTE | 2021-02-26 22:07 | ED.GENADULT ---
HPI - General Adult General Chief complaint: Weakness Stated complaint: dizzy, weak, diarrhea Time Seen by Provider: 02/26/21 21:33 Source: patient Mode of arrival: ambulatory Limitations: no limitations History of Present Illness HPI narrative: Patient is a 70-year-old female complaining of sudden onset of dizziness accompanied by diaphoresis and palpitations, started prior to arrival and now resolved. Patient currently denies any symptoms. Patient states that she is feeling better. Patient denies any speech or visual disturbance, focal weakness or numbness, chest pain, shortness of breath, abdominal pain, nausea, vomiting, diarrhea, fever or chills. Related Data Home Medications Medication Instructions Recorded Confirmed folic acid 1 mg tablet 1 mg PO DAILY 10/06/19 02/16/21 cholecalciferol (vitamin D3) 50 mcg PO DAILY 01/01/20 02/16/21 [Vitamin D3] Vitamin D3 2,000 unit PO DAILY 01/27/20 08/18/20 hydroxychloroquine 400 mg PO DAILY 01/27/20 02/16/21 methotrexate sodium 2.5 mg tablet 2.5 mg PO WEEKLY 08/12/20 02/16/21 prednisone 10 mg tablet 10 mg PO DAILY 08/12/20 08/18/20 calcium carbonate 600 mg(1,500 1 tablet PO BID 02/16/21 02/16/21 mg)-vitamin D3 800 unit chewable tablet Allergies Allergy/AdvReac Type Severity Reaction Status Date / Time No Known Allergies Allergy Verified 02/16/21 08:33 Review of Systems Review of Systems: All systems reviewed & are unremarkable except as noted in HPI and below Constitutional: Constitutional: Denies body ache(s), Denies chills, Denies excessive sweating, Denies fatigue, Denies fever(s), Denies headache(s), Denies lethargy, Denies malaise, Denies weakness and Denies weight loss Eyes: Eyes: Denies blurry vision, Denies change in vision and Denies loss of vision ENT: Denies dizziness, Denies ear discharge, Denies headache(s), Denies lip swelling, Denies epistaxis, Denies nasal congestion, Denies neck pain, Denies throat swelling and Denies tongue swelling Cardiovascular: Cardiovascular: Denies chest pain, Denies chest pain at rest, Denies chest pain with activity, Denies edema, Denies irregular heart rhythm, Denies lightheadedness, Denies dyspnea and Denies dyspnea on exertion Respiratory: Respiratory: Denies chest congestion, Denies cough, Denies hemoptysis, Denies dyspnea and Denies dyspnea on exertion Gastrointestinal: Gastrointestinal: Denies abdominal pain, Denies melena, Denies hematochezia, Denies diarrhea, Denies nausea, Denies vomiting and Denies hematemesis Musculoskeletal: Musculoskeletal: Denies abnormal gait, Denies deformity, Denies joint swelling, Denies limited range of motion, Denies neck pain and Denies numbness Neurologic: Denies Abnormal speech present, Denies abnormal gait, Denies confusion, Denies dizziness, Denies headache(s), Denies focal weakness, Denies loss of vision, Denies numbness, Denies Other visual disturbances, Denies Sensory deficit (Neuro) and Denies weakness Psychiatric: Psychiatric: Denies confusion, Denies depression, Denies auditory hallucinations, Denies homicidal ideation and Denies suicidal ideation Endocrine: Endocrine: Denies cold intolerance, Denies excessive sweating, Denies fatigue, Denies heat intolerance and Denies palpitations Hematologic/Lymphatic: Hematologic/Lymphatic: Denies easy bleeding and Denies easy bruising Allergic/Immunologic: Allergic/Immunologic: Denies lip swelling, Denies throat swelling and Denies tongue swelling [facility] Past Medical History Medical History (Updated 02/27/21 @ 01:42 by Ciro Amin MD) Acute on chronic respiratory failure with hypoxemia Afib Bruit CHF (congestive heart failure) Chronic atrial fibrillation Chronic respiratory failure Degenerative joint disease of right hip Diverticulosis DJD (degenerative joint disease), multiple sites DVT (deep venous thrombosis) 2004 Hearing loss History of pulmonary embolus (PE) HLD (hyperlipidemia) Hypertension Hypomagnesemia Hypothyroid I
[2021-02-26 22:55] LABS: Basophils Percent Auto 0.5 % (0.2-1.2); Eosinophils Absolute Auto 0.2 K/mm3 (0-0.3); Eosinophils Percent Auto 2.6 % (0-4.4); Hemoglobin 10.2 g/dL (12.0-15.0); Immature Granulocyte Absolute 0.02 K/mm3 (0.00-0.031); Immature Granulocyte Percent A 0.3 % (0-0.5); Lymphocytes Absolute Auto 1.13 K/mm3 (0.9-3.2); Lymphocytes Percent Auto 18.3 % (18.3-44.2); Mean Corpuscular HGB Conc 30.9 g/dl (32-36); Mean Corpuscular Hemoglobin 32.1 pg (26-34); Mean Corpuscular Volume 103.8 fl (80-100); Mean Platelet Volume 10.1 fl (7.4-10.4); Monocytes Absolute Auto 0.6 K/mm3 (0.1-0.6); Monocytes Percent Auto 10.3 % (2.6-8.5); Neutrophils Absolute Auto 4.2 K/mm3 (1.3-6.7); Platelet Count Result 193 k/mm3 (150-375); Red Blood Count 3.18 M/mm3 (4.2-5.4); Red Cell Distribution Width 14.1 % (11.5-14.5); White Blood Count 6.2 K/mm3 (4.5-10.0)
[2021-02-26 23:08] LABS: Alanine Aminotransferase 25 U/L (4-35); Albumin Level 4.1 g/dL (3.5-5.1); Alkaline Phosphatase 37 U/L (38-126); Anion Gap 5 mmol/L (8-16); Aspartate Amino Transferase 33 U/L (14-36); Bilirubin,Total 0.3 mg/dL (0.2-1.3); Blood Urea Nitrogen 45 mg/dL (7-17); Calcium 9.9 mg/dL (8.4-10.2); Carbon Dioxide 29 mmol/L (22-30); Chloride 106 mmol/L (98-107); Estimated CRCL calculation 39 ml/min; Estimated Glomerular Filt Rate 37; Glucose 93 mg/dL (65-105); Potassium 4.1 mmol/L (3.4-5.0); Sodium 140 mmol/L (137-145)
[2021-02-27] VITALS (7 sets, daily range): BP systolic 108–136; BP diastolic 61–84; PULSE 52–55; RESP 14–20; O2SAT 100
[2021-02-27 01:18] LABS: Troponin I < 0.012 ng/mL (0.000-0.034)
== END 2021-02-27 02:15 | disposition home or self-care (01) ==
PROVIDERS: Emergency Provider Emergency Medicine; PCP Internal Medicine
DX: R42 Dizziness and giddiness (principal); Z79.01 Long term (current) use of anticoagulants; I48.20 Chronic atrial fibrillation, unspecified; I50.9 Heart failure, unspecified; J96.11 Chronic respiratory failure with hypoxia; E78.5 Hyperlipidemia, unspecified; I11.0 Hypertensive heart disease with heart failure; E03.9 Hypothyroidism, unspecified; I27.20 Pulmonary hypertension, unspecified; M06.9 Rheumatoid arthritis, unspecified; J84.9 Interstitial pulmonary disease, unspecified; G47.33 Obstructive sleep apnea (adult) (pediatric); M16.11 Unilateral primary osteoarthritis, right hip; M17.11 Unilateral primary osteoarthritis, right knee; E66.01 Morbid (severe) obesity due to excess calories; Z68.42 Body mass index [BMI] 45.0-49.9, adult; Z87.440 Personal history of urinary (tract) infections; Z86.711 Personal history of pulmonary embolism; E89.2 Postprocedural hypoparathyroidism; Z96.653 Presence of artificial knee joint, bilateral; R00.1 Bradycardia, unspecified; I45.9 Conduction disorder, unspecified; I51.7 Cardiomegaly
CPT/HCPCS: 36415; 70450; 71046; 80053; 84484; 85025; 93005; 99284

== ENCOUNTER 2021-06-01 08:37 | Outpatient (CLI) | payer MEDICARE, SELFPAY ==
[2021-06-01 09:40] LABS: Alanine Aminotransferase 19 U/L (4-35); Albumin Level 4.2 g/dL (3.5-5.1); Alkaline Phosphatase 43 U/L (38-126); Anion Gap 7 mmol/L (8-16); Aspartate Amino Transferase 27 U/L (14-36); Bilirubin,Total 0.4 mg/dL (0.2-1.3); Blood Urea Nitrogen 33 mg/dL (7-17); Calcium 10.5 mg/dL (8.4-10.2); Carbon Dioxide 27 mmol/L (22-30); Chloride 106 mmol/L (98-107); Cholesterol 164 mg/dL (0-200); Estimated Glomerular Filt Rate 40; Glucose 89 mg/dL (65-105); HDL Direct 90 mg/dL; Potassium 4.1 mmol/L (3.4-5.0); Sodium 140 mmol/L (137-145); Triglycerides 82 mg/dL (<150)
[2021-06-01 09:49] LABS: Albumin Level 4.3 g/dL (3.5-5.1); Anion Gap 9 mmol/L (8-16); Blood Urea Nitrogen 34 mg/dL (7-17); Calcium 10.4 mg/dL (8.4-10.2); Carbon Dioxide 26 mmol/L (22-30); Chloride 106 mmol/L (98-107); Estimated Glomerular Filt Rate 40; Glucose 90 mg/dL (65-105); Phosphorus 3.5 mg/dL (2.5-4.5); Potassium 4.1 mmol/L (3.4-5.0); Sodium 141 mmol/L (137-145)
[2021-06-01 09:53] LABS: LDL Cholesterol Direct 45 mg/dL
[2021-06-01 10:01] LABS: Creatinine Urine 43.7 mg/dL; Total Protein Urine Random 11 mg/dL; Ur Ttl Prot Creatinine Ratio 0.25 mg/mg (0-0.20)
[2021-06-01 10:18] LABS: Hemoglobin A1C 5.2 % (<5.7)
== END 2021-06-01 08:38 | disposition home or self-care (01) ==
PROVIDERS: PCP Internal Medicine; Referring Provider Internal Medicine Nephrology; Visit Provider Internal Medicine
DX: R73.03 Prediabetes (principal); N18.32 Chronic kidney disease, stage 3b; I12.9 Hypertensive chronic kidney disease with stage 1 through stage 4 chronic kidney disease, or unspecified chronic kidney disease; R80.8 Other proteinuria; E78.5 Hyperlipidemia, unspecified; E03.9 Hypothyroidism, unspecified
CPT/HCPCS: 36415; 80053; 80061; 80069; 82570; 83036; 84156; 84443

== ENCOUNTER 2021-06-05 08:26 | Outpatient (RCR) | payer MEDICARE, SELFPAY ==
[2021-06-05 09:12] LABS: Basophils Percent Auto 0.5 % (0.2-1.2); Eosinophils Absolute Auto 0.2 K/mm3 (0-0.3); Eosinophils Percent Auto 2.5 % (0-4.4); Hematocrit 33.7 % (37.0-47.0); Hemoglobin 10.5 g/dL (12.0-15.0); Immature Granulocyte Absolute 0.03 K/mm3 (0.00-0.031); Immature Granulocyte Percent A 0.5 % (0-0.5); Lymphocytes Absolute Auto 1.11 K/mm3 (0.9-3.2); Lymphocytes Percent Auto 18.7 % (18.3-44.2); Mean Corpuscular HGB Conc 31.2 g/dl (32-36); Mean Corpuscular Hemoglobin 32.8 pg (26-34); Mean Corpuscular Volume 105.3 fl (80-100); Mean Platelet Volume 9.9 fl (7.4-10.4); Monocytes Absolute Auto 0.7 K/mm3 (0.1-0.6); Monocytes Percent Auto 11.3 % (2.6-8.5); Neutrophils Absolute Auto 3.9 K/mm3 (1.3-6.7); Neutrophils Percent Auto 66.5 % (45.5-73.1); Platelet Count Result 184 k/mm3 (150-375); White Blood Count 5.9 K/mm3 (4.5-10.0)
[2021-06-05 09:23] LABS: Alanine Aminotransferase 21 U/L (4-35); Albumin Level 4.3 g/dL (3.5-5.1); Alkaline Phosphatase 42 U/L (38-126); Anion Gap 6 mmol/L (8-16); Aspartate Amino Transferase 29 U/L (14-36); Bilirubin,Total 0.5 mg/dL (0.2-1.3); Blood Urea Nitrogen 35 mg/dL (7-17); Calcium 10.4 mg/dL (8.4-10.2); Carbon Dioxide 27 mmol/L (22-30); Chloride 106 mmol/L (98-107); Estimated Glomerular Filt Rate 37; Glucose 88 mg/dL (65-105); Potassium 4.3 mmol/L (3.4-5.0); Sodium 139 mmol/L (137-145)
== END 2021-09-03 23:59 | disposition home or self-care (01) ==
LOC: ANHLAB 08:26
PROVIDERS: PCP Internal Medicine; Visit Provider Internal Medicine Rheumatology
DX: Z51.81 Encounter for therapeutic drug level monitoring (principal); Z79.899 Other long term (current) drug therapy
CPT/HCPCS: 36415; 80048; 80076; 85025

== ENCOUNTER 2021-06-30 08:00 | Outpatient (CLI) | payer MEDICARE, SELFPAY ==
[2021-06-30 08:20] VITALS: PULSE 70; O2SAT 96
[2021-06-30 08:25] VITALS: PULSE 89; O2SAT 86
[2021-06-30 08:30] VITALS: PULSE 95; O2SAT 88
[2021-06-30 08:35] VITALS: PULSE 97; O2SAT 90
[2021-06-30 08:50] VITALS: PULSE 69; O2SAT 95
--- NOTE | 2021-06-30 10:59 | HOMEO2EVAL ---
Evaluation was performed at [facility] Home Oxygen Evaluation RC: Home Oxygen (O2) Evaluation Start: 06/30/21 10:56 Freq: Status: Active Protocol: RPE Activity Type Activity Date Activity User E-Sign Co-Sign Detail Recorded Client Recorded Date Recorded By Document 06/30/21 08:20 ULISSES [id number] 06/30/21 10:59 ULISSES Document 06/30/21 08:25 ULISSES [id number] 06/30/21 10:59 ULISSES Document 06/30/21 08:30 [email or web address] [id number] 06/30/21 10:59 ULISSES Document 06/30/21 08:35 [email or web address] [email or web address] 06/30/21 10:59 ULISSES Document 06/30/21 08:50 [email or web address] [email or web address] 06/30/21 10:59 ULISSES 06/30/21 06/30/21 06/30/21 08:20 08:25 08:30 Home O2 Evaluation Test Phase Resting Exercise Exercise Oxygen Delivery Room Air Room Air Nasal Cannula Oxygen Flow Rate (L/min) 1 Pulse Oximetry (90-100 %) 96 86 L 88 L Pulse Rate (60-100 beats/min) 70 89 95 Ambulation Distance (feet) Treatment Charges O2 Evaluation - Outpatient 06/30/21 06/30/21 08:35 08:50 Home O2 Evaluation Test Phase Exercise Resting Oxygen Delivery Nasal Cannula Room Air Oxygen Flow Rate (L/min) 2 Pulse Oximetry (90-100 %) 90 95 Pulse Rate (60-100 beats/min) 97 69 Ambulation Distance (feet) 250 Treatment Charges
== END 2021-06-30 08:01 | disposition home or self-care (01) ==
PROVIDERS: PCP Internal Medicine; Visit Provider Internal Medicine Critical Care Medicine
DX: Z99.81 Dependence on supplemental oxygen (principal)
CPT/HCPCS: 94618

== ENCOUNTER 2021-09-21 06:52 | Emergency (ER) | payer MEDICARE, SELFPAY ==
[2021-09-21] VITALS (13 sets, daily range): BP systolic 106–177; BP diastolic 66–90; PULSE 82–143; RESP 16–28; TEMP 36.9; O2SAT 100
--- NOTE | ~2021-09-21 | XR_ITS ---
EXAMINATION: XR chest 2V DATE: 09/21/2021 07:31 INDICATION: Shortness of breath TECHNIQUE: AP and lateral views of the chest are obtained. COMPARISON: 02/26/2021 FINDINGS: The lungs are free of acute opacities. Chronic diffuse interstitial opacities are unchanged , consistent with chronic interstitial lung disease. There is no pleural effusion or pneumothorax. C ardiomegaly is noted. There is moderate thoracic spondylosis. IMPRESSION: 1. No acute cardiopulmonary abnormality. 2. Cardiomegaly. Reviewed, dictated and finalized at location A.
--- NOTE | 2021-09-21 07:08 | ECG_ITS ---
Measurements Intervals [place] Rate: 88 P: 63 ME: 147 QRS: -24 QRSD: 129 T: 72 QT: 416 QTc: 504 Interpretive Statements SINUS RHYTHM ATRIAL PREMATURE COMPLEX INTRAVENTRICULAR CONDUCTION DELAY LEFT VENTRICULAR HYPERTROPHY WITH ST-T CHANGE POOR R WAVE PROGRESSION, ANTERIOR LEADS BASELINE ARTIFACT- I, II, III, AVR, AVL, AVF, V1-V6 BORDERLINE ECG Electronically Signed On 09-21-2021 8:20:41 CDT by Michael Parker D.O.
--- NOTE | 2021-09-21 07:14 | ED.SOB ---
HPI - SOB/Dyspnea General Chief Complaint: Shortness of Breath/Dyspnea Stated Complaint: sob Time Seen by Provider: 09/21/21 07:03 Source: patient Mode of arrival: ambulatory Limitations: no limitations History of Present Illness HPI Narrative: Patient is a 71-year-old female complaining of shortness of breath started this morning. Patient has a history of congestive heart failure and respiratory failure. Patient states that her primary care physician just increased her oxygen from 2 L to 4 L recently. Patient denies any chest pain, abdominal pain, nausea, vomiting, diaphoresis, fever or chills. Patient has a history of A. fib and currently on Eliquis. Related Data Home Medications Medication Instructions Recorded Confirmed folic acid 1 mg tablet 1 mg PO DAILY 10/06/19 06/22/21 Vitamin D3 2,000 unit PO DAILY 01/27/20 06/22/21 hydroxychloroquine 400 mg PO DAILY 01/27/20 06/22/21 methotrexate sodium 2.5 mg tablet 2.5 mg PO WEEKLY 08/12/20 06/22/21 calcium carbonate 600 mg(1,500 1 tablet PO BID 02/16/21 06/22/21 mg)-vitamin D3 800 unit chewable tablet Allergies Allergy/AdvReac Type Severity Reaction Status Date / Time No Known Allergies Allergy Verified 09/21/21 07:27 Review of Systems Review of Systems: All systems reviewed & are unremarkable except as noted in HPI and below Constitutional: Constitutional: Denies body ache(s), Denies chills, Denies excessive sweating, Denies fatigue, Denies fever(s), Denies headache(s), Denies lethargy, Denies malaise, Denies weakness and Denies weight loss Eyes: Eyes: Denies blurry vision, Denies change in vision and Denies loss of vision ENT: Denies dizziness, Denies ear discharge, Denies headache(s), Denies lip swelling, Denies epistaxis, Denies nasal congestion, Denies neck pain, Denies throat swelling and Denies tongue swelling Cardiovascular: Cardiovascular: Denies chest pain, Denies chest pain at rest, Denies chest pain with activity, Denies diaphoresis, Denies rapid heart rate, Denies edema, Denies irregular heart rhythm, Denies lightheadedness and Denies palpitations Respiratory: Respiratory: Denies chest congestion, Denies cough and Denies hemoptysis Gastrointestinal: Gastrointestinal: Denies abdominal pain, Denies melena, Denies hematochezia, Denies diarrhea, Denies nausea, Denies vomiting and Denies hematemesis Musculoskeletal: Musculoskeletal: Denies abnormal gait, Denies deformity, Denies joint swelling, Denies limited range of motion, Denies neck pain and Denies numbness Neurologic: Denies Abnormal speech present, Denies abnormal gait, Denies confusion, Denies dizziness, Denies headache(s), Denies focal weakness, Denies loss of vision, Denies numbness, Denies Other visual disturbances, Denies Sensory deficit (Neuro) and Denies weakness Psychiatric: Psychiatric: Denies confusion, Denies depression, Denies auditory hallucinations, Denies homicidal ideation and Denies suicidal ideation Endocrine: Endocrine: Denies cold intolerance, Denies excessive sweating, Denies fatigue, Denies heat intolerance and Denies palpitations Hematologic/Lymphatic: Hematologic/Lymphatic: Denies easy bleeding and Denies easy bruising Allergic/Immunologic: Allergic/Immunologic: Denies lip swelling, Denies throat swelling and Denies tongue swelling [facility] Past Medical History Medical History Acute on chronic respiratory failure with hypoxemia Afib Bruit CHF (congestive heart failure) Chronic atrial fibrillation Chronic respiratory failure Degenerative joint disease of right hip Diverticulosis DJD (degenerative joint disease), multiple sites DVT (deep venous thrombosis) 2004 Hearing loss History of pulmonary embolus (PE) HLD (hyperlipidemia) Hypertension Hypomagnesemia Hypothyroid Impaired glucose tolerance Interstitial lung disease Morbid obesity Morbid obesity with BMI of 50.0-59.9, adult Nonspecific interstitial pneumonitis On ho
[2021-09-21 07:15] LABS: Basophils Percent Auto 0.6 % (0.2-1.2); Eosinophils Absolute Auto 0.3 K/mm3 (0-0.3); Eosinophils Percent Auto 4.5 % (0-4.4); Hematocrit 34.9 % (37.0-47.0); Immature Granulocyte Absolute 0.05 K/mm3 (0.00-0.031); Immature Granulocyte Percent A 0.7 % (0-0.5); Lymphocytes Absolute Auto 0.82 K/mm3 (0.9-3.2); Lymphocytes Percent Auto 11.8 % (18.3-44.2); Mean Corpuscular HGB Conc 31.5 g/dl (32-36); Mean Corpuscular Hemoglobin 33.1 pg (26-34); Mean Corpuscular Volume 105.1 fl (80-100); Mean Platelet Volume 9.4 fl (7.4-10.4); Monocytes Absolute Auto 1.1 K/mm3 (0.1-0.6); Monocytes Percent Auto 15.3 % (2.6-8.5); Neutrophils Absolute Auto 4.7 K/mm3 (1.3-6.7); Neutrophils Percent Auto 67.1 % (45.5-73.1); Platelet Count Result 232 k/mm3 (150-375); Red Blood Count 3.32 M/mm3 (4.2-5.4); Red Cell Distribution Width 13.3 % (11.5-14.5); White Blood Count 6.9 K/mm3 (4.5-10.0)
[2021-09-21 07:31] LABS: Anion Gap 13 mmol/L (8-16); Blood Urea Nitrogen 32 mg/dL (7-17); Calcium 10.2 mg/dL (8.4-10.2); Carbon Dioxide 21 mmol/L (22-30); Chloride 105 mmol/L (98-107); Estimated Glomerular Filt Rate 44; Glucose 98 mg/dL (65-110); Potassium 4.3 mmol/L (3.4-5.0); Sodium 139 mmol/L (137-145)
[2021-09-21] MEDS: FUROSEMIDE INJ 40 MG/4 ML VIAL IV PUSH (07:34)
[2021-09-21 08:55] LABS: INR 1.1; Partial Thromboplastin Time 23.5 SECONDS (22.3-36.8); Prothrombin Time 14.3 Seconds (11.1-14.7)
[2021-09-21 10:01] LABS: NT Pro B Type Natriuretic Pept 677 pg/mL (5-100); Troponin I < 0.012 ng/mL (0.000-0.034)
[2021-09-21 10:17] LABS: Alveolar/Arterial O2 Gradient 37.7 mmHg; Base Excess ABG -3.7 mEq/l (+/-2.0); Carboxyhemoglobin 0.9 % THb (0-2.0); Fractional Inspired Oxygen 36 %; HCO3 ABG 19.5 mEq/l (22.0-26.0); Methemoglobin ABG 0.3 %THb (0-1.5); Oxygen Content ABG 16.1 %vol (16.0-22.0); Oxygen Saturation ABG 99.3 % (95.0-100.0); Oxyhemoglobin 97.7 % THb (90.0-100.0); PCO2 ABG 29.4 mmHg (35.0-45.0); PO2 ABG 184.9 mmHg (80.0-100.0); PO2 FiO2 Ratio Arterial Blood 5.14 %; Reduced Hemoglobin 1.1 %THb (0-5.0); Total Hemoglobin 11.4 g/dL (12.0-18.0); pH ABG 7.439 (7.350-7.450)
[2021-09-21 10:18] LABS: Device NASAL CANNULA; Modified Allen's Test Pass; Site Drawn LEFT RADIAL
== END 2021-09-21 11:37 | disposition home or self-care (01) ==
PROVIDERS: Emergency Provider Emergency Medicine; PCP Internal Medicine
DX: I50.9 Heart failure, unspecified (principal); I48.20 Chronic atrial fibrillation, unspecified; J96.10 Chronic respiratory failure, unspecified whether with hypoxia or hypercapnia; E78.5 Hyperlipidemia, unspecified; E03.9 Hypothyroidism, unspecified; E66.01 Morbid (severe) obesity due to excess calories; G47.33 Obstructive sleep apnea (adult) (pediatric); Z99.81 Dependence on supplemental oxygen; Z86.718 Personal history of other venous thrombosis and embolism; Z86.711 Personal history of pulmonary embolism; Z79.01 Long term (current) use of anticoagulants; M06.9 Rheumatoid arthritis, unspecified; R73.03 Prediabetes; M17.11 Unilateral primary osteoarthritis, right knee; Z87.440 Personal history of urinary (tract) infections; E89.2 Postprocedural hypoparathyroidism; Z96.653 Presence of artificial knee joint, bilateral; Z87.891 Personal history of nicotine dependence; I49.1 Atrial premature depolarization; I45.9 Conduction disorder, unspecified; I51.7 Cardiomegaly
CPT/HCPCS: 36415; 36600; 71046; 80048; 82375; 82805; 83050; 83880; 84484; 85025; 85610; 85730; 93005; 96374; 99284; J1940

== ENCOUNTER 2021-09-29 11:06 | Outpatient (CLI) | payer MEDICARE, SELFPAY ==
[2021-09-29 12:06] LABS: D Dimer 1.59 ug/mL (<0.48)
== END 2021-09-29 11:07 | disposition home or self-care (01) ==
PROVIDERS: PCP Internal Medicine; Visit Provider Nurse Practitioner Adult Health
DX: R06.00 Dyspnea, unspecified (principal)
CPT/HCPCS: 36415; 85380

== ENCOUNTER 2021-10-01 12:41 | Outpatient (CLI) | payer MEDICARE, SELFPAY ==
--- NOTE | ~2021-10-01 | CT_ITS ---
EXAMINATION: CTA chest PE protocol DATE: 10/01/2021 14:11 INDICATION: Dyspnea on exertion TECHNIQUE: Computed tomography angiography (CTA) of the chest was performed with 100 mL Omnipaque-350 intravenous contrast timed to evaluate the pulmonary arteries. Coronal maximum intensity projection 3D-reconstructions were created by the technologist. Automated exposure control and iterative reconst ruction technique were employed. Exam dose: 880.42 mGy-cm total exam DLP. COMPARISON: 07/10/2005 CT pulmonary 08/23/2019 CT chest 09/21/2021 2 view chest FINDINGS: There is diagnostic contrast enhancement of the pulmonary arteries and no evidence of pulmo nary embolism. No thoracic aortic aneurysm or dissection. Cardiomegaly. No pericardial or pleural effusion. Mild bilateral hilar lymph node prominence, likely reactive, due to extensive patchy bilateral ground glass infiltrates, new, superimposed upon chronic bilateral interstitial fibrotic changes noted on . 3 cm right renal cyst. Status post cholecystectomy. Nonspecific lucent lesion of the right lateral half of the manubrium of the sternum can with narrow z one of transition, sclerotic margin. This is stable since 07/09/2005, consistent with benign process. No lytic lesions are identified otherwise. IMPRESSION: Extensive patchy groundglass infiltrates of both lungs suggesting Covid 19 pneumonia Chronic interstitial changes Cardiomegaly Small sliding hiatal hernia Status post cholecystectomy Reviewed, dictated and finalized at Location A. Reviewed, dictated and finalized at location A. 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
== END 2021-10-01 12:42 | disposition home or self-care (01) ==
LOC: ANHIMG 12:46
PROVIDERS: PCP Internal Medicine; Visit Provider Nurse Practitioner Adult Health
DX: R06.00 Dyspnea, unspecified (principal); K44.9 Diaphragmatic hernia without obstruction or gangrene; I51.7 Cardiomegaly; Z90.49 Acquired absence of other specified parts of digestive tract; R91.8 Other nonspecific abnormal finding of lung field
CPT/HCPCS: 71275; Q9967

== ENCOUNTER 2021-10-02 10:36 | Inpatient (IN) | payer MEDICARE, SELFPAY ==
[2021-10-02] VITALS (30 sets, daily range): BP systolic 117–172; BP diastolic 47–76; PULSE 56–64; RESP 17–26; TEMP 36.2–36.7; O2SAT 95–100; BMI 46.3
--- NOTE | ~2021-10-02 | XR_ITS ---
XR chest 1V portable 10/06/2021 08:19 Indication: Influenza B Procedure: AP portable chest Comparison: 10/02/2021 Findings: Patchy bilateral airspace disease, compatible with pneumonia. Edema less favored. No pleura l effusion or pneumothorax. No acute osseous abnormality. Cardiomegaly. Impression: 1: Patchy bilateral airspace disease, compatible with pneumonia. Edema less favored. 2: Cardiomegaly. Reviewed, dictated and finalized at location A. 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 Edema less fav ored. 2: Cardiomegaly.
--- NOTE | ~2021-10-02 | XR_ITS ---
XR chest 1V portable 10/02/2021 13:37 Indication: Shortness of breath. Covid. Procedure: AP portable chest Comparison: Comparison to multiple prior studies sequentially, with oldest reviewed study dated 05/2020. Findings: Cardiomegaly. Extensive bilateral airspace disease. No significant effusion or pneumothorax . Elevated right diaphragm. Impression: 1: Extensive bilateral airspace disease which may represent pneumonia or edema. 2: Cardiomegaly. Reviewed, dictated and finalized at location A. INE SETTER Impression: 1: Extensive bilateral airspace disease which may represent pneumonia or edema. 2: Cardiomegaly.
--- NOTE | 2021-10-02 11:04 | ED.SOB ---
HPI - SOB/Dyspnea General Chief Complaint: Shortness of Breath/Dyspnea Stated Complaint: COVID POSITIVE Time Seen by Provider: 10/02/21 11:02 Source: patient and EMS Mode of arrival: EMS Limitations: no limitations History of Present Illness HPI Narrative: Patient is a 71-year-old female with a history of chronic hypoxemic respiratory failure, on 2 L oxygen via nasal cannula, atrial fibrillation, anticoagulated on Eliquis, hypertension, hyperlipidemia, congestive heart failure, rheumatoid arthritis, presenting for evaluation of increased shortness of breath. Patient states that she has had increased shortness of breath over the past 2 weeks. Patient states that she did receive a covert booster approximately 3 weeks ago, does note that she did experience mild shortness of breath about a week following the Covid booster. She states she denies any fever, chills, myalgias, chest pain, cough, rash. She does have intermittent diarrhea but states this is chronic for her. She denies any abdominal pain. No loss of sense of taste or smell. Patient states that she would note that her oxygen level would decrease into the 60s during ambulation up one of the staircase is in her house. Patient states that she would rest until her oxygen will return to normal, but did have to increase her oxygen requirement to 3 to 4 L due to the increasing dyspnea over the past 2 weeks. Patient did come into the emergency department on September 21 with work-up and diagnosis of congestive heart failure, discharged home as she was hemodynamically stable at that point. Patient reports that a CT scan have been ordered and performed yesterday, and after hearing the results of this was told to come to the emergency department by her maintenance supervisor electrical. Patient states that she was scheduled to have an echo done by her maintenance supervisor electrical collaborating provider, Dr. Reyes is who she typically follows with. Patient denies any chest pain. No leg swelling or calf pain. She has been compliant with her medications. No recent sick contacts. Patient denies having any positive Covid swab over the past 3 weeks. No known history of Covid infection. CTA reviewed from 10/01, notable for bilateral ground glass opacities, no PE. Related Data Home Medications Medication Instructions Recorded Confirmed folic acid 1 mg tablet 1 mg PO DAILY 10/06/19 06/22/21 Vitamin D3 2,000 unit PO DAILY 01/27/20 06/22/21 hydroxychloroquine 400 mg PO DAILY 01/27/20 06/22/21 methotrexate sodium 2.5 mg tablet 2.5 mg PO WEEKLY 08/12/20 06/22/21 calcium carbonate 600 mg(1,500 1 tablet PO BID 02/16/21 06/22/21 mg)-vitamin D3 800 unit chewable tablet Allergies Allergy/AdvReac Type Severity Reaction Status Date / Time No Known Allergies Allergy Verified 10/02/21 10:59 Review of Systems Review of Systems: CONSTITUTIONAL: Denies fever, chills, or sweats. EYES: Denies visual changes, redness, or discharge. ENT: Denies rhinorrhea, congestion, sore throat, or otalgia. CARDIOVASCULAR: Denies chest pain, palpitations, or edema. RESPIRATORY: Denies cough, reports shortness of breath GASTROINTESTINAL: Denies abdominal pain, nausea, vomiting, or diarrhea. GENITOURINARY: Denies dysuria or hematuria. SKIN: Denies rash or itching. MUSCULOSKELETAL: Denies back pain, joint pain, or myalgia. NEUROLOGIC: Denies headache, numbness, or weakness. [facility] Past Medical History Medical History Acute on chronic respiratory failure with hypoxemia Afib Bruit CHF (congestive heart failure) Chronic atrial fibrillation Chronic respiratory failure Degenerative joint disease of right hip Diverticulosis DJD (degenerative joint disease), multiple sites DVT (deep venous thrombosis) 2004 Hearing loss History of pulmonary embolus (PE) HLD (hyperlipidemia) Hypertension Hypomagnesemia Hypothyroid Impaired glucose tolerance Interstitial lung disease Morbid obesity Morbid obesity w
--- NOTE | 2021-10-02 11:23 | ECG_ITS ---
Measurements Intervals [place] Rate: 60 P: 12 NE: 174 QRS: -17 QRSD: 116 T: 4 QT: 415 QTc: 417 Interpretive Statements SINUS RHYTHM INTRAVENTRICULAR CONDUCTION DELAY VOLTAGE CRITERIA FOR LVH DELAYED PRECORDIAL R/S TRANSITION BORDERLINE T WAVE ABNORMALITY- INFERIOR LEADS BASELINE ARTIFACT- I, II, AVR, AVL, AVF, V1 BORDERLINE ECG Electronically Signed On 10-02-2021 11:26:47 ENGINEERING AGENT by Michael Parker D.O.
[2021-10-02 12:17] LABS: Basophils Percent Auto 0.4 % (0.2-1.2); Eosinophils Absolute Auto 0.3 K/mm3 (0-0.3); Eosinophils Percent Auto 4.7 % (0-4.4); Hematocrit 31.2 % (37.0-47.0); Hemoglobin 9.8 g/dL (12.0-15.0); Immature Granulocyte Absolute 0.05 K/mm3 (0.00-0.031); Immature Granulocyte Percent A 0.7 % (0-0.5); Lymphocytes Absolute Auto 0.87 K/mm3 (0.9-3.2); Lymphocytes Percent Auto 12.1 % (18.3-44.2); Mean Corpuscular HGB Conc 31.4 g/dl (32-36); Mean Corpuscular Hemoglobin 32.9 pg (26-34); Mean Corpuscular Volume 104.7 fl (80-100); Mean Platelet Volume 9.2 fl (7.4-10.4); Monocytes Absolute Auto 0.9 K/mm3 (0.1-0.6); Monocytes Percent Auto 13.1 % (2.6-8.5); Neutrophils Absolute Auto 4.9 K/mm3 (1.3-6.7); Platelet Count Result 296 k/mm3 (150-375); Red Blood Count 2.98 M/mm3 (4.2-5.4); Red Cell Distribution Width 13.3 % (11.5-14.5); White Blood Count 7.2 K/mm3 (4.5-10.0)
[2021-10-02 12:26] LABS: INR 1.3; Partial Thromboplastin Time 27.8 SECONDS (22.3-36.8); Prothrombin Time 15.7 Seconds (11.1-14.7)
[2021-10-02 12:49] LABS: Lactic Acid Reflex 1.1 mmol/L (0.7-2.1)
[2021-10-02 13:02] LABS: NT Pro B Type Natriuretic Pept 1320 pg/mL (5-100); Troponin I < 0.012 ng/mL (0.000-0.034)
[2021-10-02 13:28] LABS: Alanine Aminotransferase 14 U/L (4-35); Albumin Level 4.1 g/dL (3.5-5.1); Alkaline Phosphatase 33 U/L (38-126); Anion Gap 7 mmol/L (8-16); Aspartate Amino Transferase 31 U/L (14-36); Bilirubin,Total 0.6 mg/dL (0.2-1.3); Blood Urea Nitrogen 24 mg/dL (7-17); Calcium 10.3 mg/dL (8.4-10.2); Carbon Dioxide 24 mmol/L (22-30); Chloride 103 mmol/L (98-107); Estimated CRCL calculation 45 ml/min; Estimated Glomerular Filt Rate 44; Glucose 101 mg/dL (65-110); Sodium 134 mmol/L (137-145)
--- NOTE | 2021-10-02 15:15 | ADMGEN ---
This patient, Ayanna Cash, was admitted to 3 [facility] Surg Room 329-01. Patient/family oriented to hospital policies and general routines including ID bracelet, bed and alarms, visiting hours, pain management, procedures, bathroom and other care routines, personal items, smoking policy, room service/diet, and visiting hours. pt needs stand by assist to get from stretcher to bed. Uses walker at home. Information on how to activate the Rapid Response Team has been discussed. Patient/Family are encouraged to report perceived risks to care and to ask questions if they do not understand what they are told or what they should do.
--- NOTE | 2021-10-02 15:36 | PM.IMHP ---
H&P: HPI History of Present Illness Date/Time: 10/02/21 15:36 this is a 71-year-old female patient who has a past medical history of chronic hypoxia and she is chronically on oxygen at 2 L per nasal cannula. The patient also has a history of atrial fibrillation is anticoagulated with Eliquis. She also has a history of hypertension and congestive heart failure. The patient stated that she got her COVID booster approximately 3 weeks ago. However she started to feel ill about 1 week after she received a booster. The patient tells me that she is short of breath with any type of activity. She stated that she has sleep apnea and has not been able to use her CPAP machine because she feels like she is not getting enough oxygen. The patient was in the emergency room on September 21 with [place] cup and a diagnosis of congestive heart failure and she was discharged back to home at that time. The patient followed up with her primary care doctor and had a CT scan ordered and performed today. After the sourcing analyst received the results of the CT scan the patient was then sent to the emergency room. Whom the patient was scheduled to have an echo done by her sourcing analyst. She has no increase in swelling. She bumped her oxygen up to 4 L per nasal cannula today. When I saw the patient she was on . CTA from earlier today was read as extensive patchy ground-glass infiltrates both lung suggesting COVID-19 pneumonia. Chronic interstitial changes. Cardiomegaly. Small sliding hiatal hernia. Status post cholecystectomy. Her COVID swab is pending. H&H is 9.8 and 31.2 which is slightly lower than her normal. Her D-dimer had been elevated to 1.59 on 09/29/2021. Which I am sure prompted the CT a pulmonary. Her creatinine is 1.2 which is her baseline. Her calcium is high at 10.3 with a history of parathyroidectomy. BNP is 1320. The patient was started on Levaquin and Decadron. The patient is being admitted to inpatient services on the date of service of 10/02/2021. Chief Complaint: Shortness of breath Review of Systems Review of Systems: All systems reviewed & are unremarkable except as noted in HPI and below Constitutional: Constitutional: Reports as per HPI and Reports no additional constitutional complaints Eyes: Eyes: Reports as per HPI and Reports no additional eye complaints ENT: Reports system reviewed and no additional complaints, except as documented and Reports Normal hearing present Cardiovascular: Cardiovascular: Reports no additional cardiovascular complaints Respiratory: Respiratory: Reports no additional respiratory complaints and Reports no additional respiratory complaints Gastrointestinal: Gastrointestinal: Reports as per HPI and Reports no additional gastrointestinal complaints Musculoskeletal: Musculoskeletal: Reports no additional musculoskeletal complaints Integumentary/Breasts: Skin/Breast: Reports system reviewed and no additional complaints, except as docu and Reports as per HPI Neurologic: Reports system reviewed and no additional complaints, except as documented, Reports as per HPI and Reports Normal hearing present Psychiatric: Psychiatric: Reports no additional psychiatric complaints and Reports as per HPI Endocrine: Endocrine: Reports no additional endocrine complaints Hematologic/Lymphatic: Hematologic/Lymphatic: Reports no additional hematologic/lymphatic complaints Allergic/Immunologic: Allergic/Immunologic: Reports no additional allergic/immunologic complaints [facility] Past Medical History Medical History (Updated 10/02/21 @ 16:15 by Khloe Celment NP) Acute on chronic respiratory failure with hypoxemia Afib Bruit CHF (congestive heart failure) Chronic atrial fibrillation Chronic respiratory failure Degenerative joint disease of right hip Diverticulosis DJD (degenerative joint disease), multiple sites DVT (deep venous thrombosis) 2004 Essential (primary) hypertension Hearing loss History of pulmonary embol
[2021-10-02 15:48] LABS: Lactate Dehydrogenase 692 U/L (313-618)
[2021-10-02 16:32] LABS: Alanine Aminotransferase 13 U/L (4-35); Estimated CRCL calculation 45 ml/min; Estimated Glomerular Filt Rate 44
[2021-10-02 17:03] LABS: INR 1.3; Prothrombin Time 15.9 Seconds (11.1-14.7)
[2021-10-02 19:00] LABS: SARS-CoV-2 RNA PCR Negative
[2021-10-02] MEDS: APIXABAN 5 MG TABLET PO (21:07)
[2021-10-02] MEDS: ACETAMINOPHEN 325 MG TABLET 650 MG PO (23:03)
[2021-10-03] VITALS (8 sets, daily range): BP systolic 129–146; BP diastolic 51–64; PULSE 54–76; RESP 16–26; TEMP 36.4–36.9; O2SAT 97–100
--- NOTE | 2021-10-03 | ECHO_ITS ---
Patient Info Name: Ayanna Cash Age: 71 years : 1950 Gender: Female Ht: 62 in Wt: 253 lbs BSA: 2.31 m2 HR: 57 bpm BP: 146 / 51 mmHg Technical Quality: Good Exam Date: 10/03/2021 9:26 AM Exam Location: [facility] Pulmonary Patient Status: Inpatient Admit Date: 10/02/2021 Staff Ordering Physician: Tanesha Cervantes MD Division Field Inspector: [id number] Attending Provider: Vita Florez PA-C Referring Physician: Billy HAWKINS; Exam Type: CA echo doppler color flow Study Info Indications R06.00 - Dyspnea, unspecified Complete two-dimensional, color flow and Doppler transthoracic echocardiogram is performed. Summary 1. Complete two-dimensional, color flow and Doppler transthoracic echocardiogram is performed. 2. Mild LVH, mild LV enlargement, normal LV systolic function, EF 55-60%. Diastolic dysfunction is present. Mild left atrial enlargement. Normal mitral valve structure, no significant MR. Normal aortic valve structure, no stenosis or regurgitation. Trivial TR, RVSP 14 mmHg. Sinus rhythm. Left Ventricle Left ventricular chamber dimension is mildly enlarged. Left ventricular systolic function is normal, estimated at 55-60%. There is mildly increased left ventricular wall thickness. The left ventricular diastolic function is abnormal. Right Ventricle Right ventricular chamber dimension is normal. Right ventricular systolic function is normal. Left Atria Left atrial chamber dimension is mildly enlarged. Right Atria Right atrial chamber dimension is normal. Aortic Valve The aortic valve is normal. There is no aortic valve stenosis. Pulmonic Valve The pulmonic valve is normal. Mitral Valve The mitral valve has normal leaflets. There is no mitral valve regurgitation. Tricuspid Valve The tricuspid valve leaflets are normal. There is trace tricuspid valve regurgitation. Pericardium/Pleural The pericardium appears epicardial fat pad. Inferior Vena Cava Normal inferior vena cava with >50% collapse upon inspiration consistent with normal right atrial pressure, 10 mmHg. Aorta The aortic root size at the sinus of Valsalva is normal. Left Ventricular Outflow Tract Name Value Normal LVOT 2D LVOT Diameter 2.4 cm LVOT Doppler LVOT Peak Gradient 6 mmHg LVOT Mean Gradient 3 mmHg LVOT VTI 25 cm LVOT VTI/AV VTI Ratio 0.9 LVOT Stroke Volume 110 ml LVOT CO 20.2 l/min LVOT CI 8.7 l/min/m2 Mitral Valve Name Value Normal MV Doppler MV Decel [facility] 293 cm/s2 MV PHT 117 ms MV Area (PHT) 1.9 cm2 4.0-5.0 MV Diastolic Function ----
[2021-10-03] MEDS: LEVOTHYROXINE SODIUM 112 MCG TABLET BY MOUTH (05:53)
[2021-10-03 06:35] LABS: Basophils Percent Auto 0.3 % (0.2-1.2); Eosinophils Percent Auto 0.2 % (0-4.4); Hematocrit 29.4 % (37.0-47.0); Hemoglobin 9.2 g/dL (12.0-15.0); Immature Granulocyte Absolute 0.05 K/mm3 (0.00-0.031); Immature Granulocyte Percent A 0.8 % (0-0.5); Mean Corpuscular HGB Conc 31.3 g/dl (32-36); Mean Corpuscular Hemoglobin 32.5 pg (26-34); Mean Corpuscular Volume 103.9 fl (80-100); Mean Platelet Volume 9.2 fl (7.4-10.4); Monocytes Absolute Auto 0.7 K/mm3 (0.1-0.6); Monocytes Percent Auto 11.7 % (2.6-8.5); Neutrophils Absolute Auto 4.5 K/mm3 (1.3-6.7); Platelet Count Result 271 k/mm3 (150-375); Red Blood Count 2.83 M/mm3 (4.2-5.4); White Blood Count 6.1 K/mm3 (4.5-10.0)
[2021-10-03 06:49] LABS: Lactic Acid Reflex 0.8 mmol/L (0.7-2.1)
[2021-10-03 06:53] LABS: Alanine Aminotransferase 12 U/L (4-35); Albumin Level 3.6 g/dL (3.5-5.1); Alkaline Phosphatase 40 U/L (38-126); Anion Gap 8 mmol/L (8-16); Aspartate Amino Transferase 29 U/L (14-36); Bilirubin,Total 0.2 mg/dL (0.2-1.3); Blood Urea Nitrogen 25 mg/dL (7-17); Calcium 9.6 mg/dL (8.4-10.2); Carbon Dioxide 21 mmol/L (22-30); Chloride 106 mmol/L (98-107); Estimated CRCL calculation 45 ml/min; Estimated Glomerular Filt Rate 44; Glucose 100 mg/dL (65-110); Lactate Dehydrogenase 629 U/L (313-618); Magnesium 1.8 mg/dL (1.6-2.3); Potassium 4.6 mmol/L (3.4-5.0); Sodium 135 mmol/L (137-145)
[2021-10-03 07:23] LABS: Thyroid Stimulating Hormone Reflex 0.807 uIU/mL (0.465-4.68)
[2021-10-03 08:00] LABS: INR 1.4; Prothrombin Time 16.7 Seconds (11.1-14.7)
[2021-10-03] MEDS: DEXAMETHASONE 2 MG TABLET 6 MG PO (08:25)
[2021-10-03] MEDS: FUROSEMIDE 40 MG TABLET PO (08:26)
[2021-10-03] MEDS: FOLIC ACID 1 MG TABLET PO (08:26)
[2021-10-03] MEDS: APIXABAN 5 MG TABLET PO ×2 (08:26→20:35)
[2021-10-03] MEDS: CHOLECALCIFEROL 1,000 UNITS TABLET 2000 UNITS PO (08:26)
[2021-10-03] MEDS: METOPROLOL SUCCINATE EXT REL 25 MG TABCR PO (08:27)
[2021-10-03] MEDS: HYDROXYCHLOROQUINE SULFATE 200 MG TABLET 400 MG PO (08:27)
[2021-10-03] MEDS: METOPROLOL SUCCINATE EXT REL 100 MG TABCR PO (08:27)
[2021-10-03] MEDS: POTASSIUM CHLORIDE 10 MEQ TABLET.ER PO (08:28)
[2021-10-03] MEDS: PRAVASTATIN SODIUM 20 MG TABLET 80 MG PO (08:28)
--- NOTE | 2021-10-03 11:27 | PC.NURSE ---
On 10/03/21, the student, [Estrella Carey ], provided care and completed [facility] documentation on this patient. I have reviewed the student's documentation and agree with the findings.
[2021-10-03] MEDS: CHOLESTYRAMINE (W/ SUGAR) 4 GM POWD.PACK PO (13:46)
--- NOTE | 2021-10-03 14:44 | PM.CNCAR ---
Assessment and Plan Assessment and plan (1) FALCON (dyspnea on exertion): Code(s): R06.09 - Other forms of dyspnea Status: Acute Assessment and Plan: Etiology of the patient's FALCON is unclear. Her CT suggested extensive infiltrates consistent with COVID pneumonia but I suppose it could be from some other type of viral pneumonia or CHF is well. Certainly does look worse than the chest x-ray done on September 21. She is a little more anemic than usual. Since her BNP is elevated I think it is reasonable to try a dose of IV furosemide 20 mg and see what type of response we get. Reviewed with patient; she is reluctant because she already has urinary frequency and has a bed alarm, with decreased ability to get herself to the bedside commode. However she did agree to give it a try. Check BNP again tomorrow and follow oxygen requirements BMP tomorrow In the meantime she is getting Levaquin. (2) Acute on chronic diastolic CHF (congestive heart failure): Code(s): I50.33 - Acute on chronic diastolic (congestive) heart failure Status: Acute Assessment and Plan: Elevated BNP and perhaps some edema, with jugular venous pulsations noted, suggestive of a mild degree of acute CHF. (3) Interstitial lung disease: Code(s): J84.9 - Interstitial pulmonary disease, unspecified Status: Acute Assessment and Plan: Chronic interstitial lung disease on chronic O2. (4) Essential (primary) hypertension: Code(s): I10 - Essential (primary) hypertension Status: Chronic Assessment and Plan: BP mildly elevated on this admission (5) Macrocytic anemia: Code(s): D53.9 - Nutritional anemia, unspecified Status: Acute Assessment and Plan: Macrocytic anemia, somewhat worse than usual, which may be playing a role as well. (6) Paroxysmal atrial fibrillation: Code(s): I48.0 - Paroxysmal atrial fibrillation Status: Acute Assessment and Plan: History of PAF. Has been in NSR with every medical encounter recently. Anticoagulated with Eliquis. History of Present Illness History of Present Illness Consult date/time: 10/03/21 14:44 Requesting physician: Tanesha Cervantes MD Consult reason: shortness of breath Reason For Visit: Pneumonia/dyspnea Narrative: Ayanna Cash is a 71-year-old female whom were asked to see at the request of Dr. Cervantes for advice and opinion regarding her dyspnea in consultation. Her paroxysmal atrial fibrillation and chronic diastolic heart failure are followed by Dr. Reyes. She has interstitial lung disease on home O2 at [address] Norman as well as a history of hypertension, hyperlipidemia and rheumatoid arthritis. The patient was seen in the emergency room on September 21 with increasing oxygen needs from her usual 2 L to 3-4 L, which she thought was related to having received her COVID booster 4 days prior to her symptoms of worsening FALCON. This is been a fairly abrupt change for her. O2 sat dropped as low as 65% with activity. Evaluation in the ER was unremarkable. She was seen in our office on 09/29/2021 and did not appear to be in heart failure. It was thought she had progression of her underlying interstitial lung disease. D-dimer was mildly elevated, so CTA and echo were ordered. The CTA showed chronic interstitial changes with extensive patchy ground-glass infiltrates suggesting COVID-19 pneumonia and she was directed to go to the emergency room yesterday. Her COVID screen was negative. BNP on September 21 was 677 but yesterday was 1300. New mild cough, no PND orthopnea, no edema, no change in weight. No fevers chills or myalgias but has had some mild diarrhea. The patient has been vaccinated against COVID, influenza and pneumonia.
[2021-10-03] MEDS: FUROSEMIDE INJ 40 MG/4 ML VIAL 20 MG IV PUSH (16:34)
--- NOTE | 2021-10-03 17:18 | P.PNIM_ITS ---
Progress Note: A&P Assessment and Plan (1) Acute and chronic respiratory failure ([id number]): Code(s): J96.20 - Acute and chronic respiratory failure, unspecified whether with hypoxia or hypercapnia Status: Acute Assessment and Plan: Chronic respiratory failure ssecondary to interstitial lung disease on 2 L per nasal cannula. Noted to be hypoxic on presentation required up to 4 L per nasal cannula * Likely secondary to CAP vs CHF * She is back on her typical 2 L at this time * Continue supplemental O2 as needed with goal saturation 90% or above. Wean to goal * Plan as detailed below (2) CAP (community acquired pneumonia): Code(s): J18.9 - Pneumonia, unspecified organism Status: Acute Assessment and Plan: CTA on presentation showed extensive patchy ground-glass infiltrates of bilateral lungs * COVID-19 test negative * Influenza pending * Continue with IV Levaquin. QTC reviewed * Blood cultures and sputum cultures pending * Supportive care to include bronchodilators, expectorants, antipyretics, and incentive spirometry (3) CHF (congestive heart failure): Qualifiers: Heart failure chronicity: acute on chronic Heart failure type: diastolic Qualified Code(s): I50.33 - Acute on chronic diastolic (congestive) heart failure Code(s): I50.9 - Heart failure, unspecified Status: Acute Assessment and Plan: CTA and CXR with evidence of possible pulmonary edema. BNP is mildly elevated. * Appreciate cardiology consultation * Echo reviewed and shows * 20 mg IV Lasix x1 per Cardiology * Continue home Lasix 40 mg daily * Echo shows preserved EF with diastolic dysfunction * Continue metoprolol (4) Essential (primary) hypertension: Code(s): I10 - Essential (primary) hypertension Status: Chronic Assessment and Plan: Blood pressure reviewed and has been stable. Last BP 133/64 * Continue metoprolol (5) Hypothyroidism, unspecified: Code(s): E03.9 - Hypothyroidism, unspecified Status: Acute Assessment and Plan: TSH is within normal limits * Continue levothyroxine (6) Anemia: Qualifiers: Anemia type: unspecified type Qualified Code(s): D64.9 - Anemia, unspecified Code(s): D64.9 - Anemia, unspecified Status: Acute Assessment and Plan: Hemoglobin and hematocrit slightly decreased from baseline though remaining stable * Monitor H&H closely * No evidence of bleeding; vital signs are stable (7) Chronic atrial fibrillation: Code(s): I48.20 - Chronic atrial fibrillation, unspecified Status: Inactive Assessment and Plan: Rate is controlled at this time * Continue Eliquis * Continue metoprolol (8) Rheumatoid arthritis: Code(s): M06.9 - Rheumatoid arthritis, unspecified Status: Chronic Assessment and Plan: Managed by Rheumatology * Holding immunosuppressive therapy in light of infectious process Subjective Date/time seen: 10/03/21 17:18 Interval history: Date of service: 10/03/2021 Ayanna Cash is a 71-year-old female with a history of CHF, atrial fibrillation on chronic anticoagulation, hypertension, hyperlipidemia, hypothyroidism, chronic respiratory failure on home oxygen, rheumatoid arthritis on immunosuppressive therapy, and several other comorbidities who is seen in follow-up for acute on chronic respiratory failure. She is feeling better today
--- NOTE | 2021-10-03 17:18 | PM.IMPN ---
Progress Note: A&P Assessment and Plan (1) Acute and chronic respiratory failure ([id number]): Code(s): J96.20 - Acute and chronic respiratory failure, unspecified whether with hypoxia or hypercapnia Status: Acute Assessment and Plan: Chronic respiratory failure ssecondary to interstitial lung disease on 2 L per nasal cannula. Noted to be hypoxic on presentation required up to 4 L per nasal cannula Likely secondary to CAP vs CHF She is back on her typical 2 L at this time Continue supplemental O2 as needed with goal saturation 90% or above. Wean to goal Plan as detailed below (2) CAP (community acquired pneumonia): Code(s): J18.9 - Pneumonia, unspecified organism Status: Acute Assessment and Plan: CTA on presentation showed extensive patchy ground-glass infiltrates of bilateral lungs COVID-19 test negative Influenza pending Continue with IV Levaquin. QTC reviewed Blood cultures and sputum cultures pending Supportive care to include bronchodilators, expectorants, antipyretics, and incentive spirometry (3) CHF (congestive heart failure): Qualifiers: Heart failure chronicity: acute on chronic Heart failure type: diastolic Qualified Code(s): I50.33 - Acute on chronic diastolic (congestive) heart failure Code(s): I50.9 - Heart failure, unspecified Status: Acute Assessment and Plan: CTA and CXR with evidence of possible pulmonary edema. BNP is mildly elevated. Appreciate cardiology consultation Echo reviewed and shows 20 mg IV Lasix x1 per Cardiology Continue home Lasix 40 mg daily Echo shows preserved EF with diastolic dysfunction Continue metoprolol (4) Essential (primary) hypertension: Code(s): I10 - Essential (primary) hypertension Status: Chronic Assessment and Plan: Blood pressure reviewed and has been stable. Last BP 133/64 Continue metoprolol (5) Hypothyroidism, unspecified: Code(s): E03.9 - Hypothyroidism, unspecified Status: Acute Assessment and Plan: TSH is within normal limits Continue levothyroxine (6) Anemia: Qualifiers: Anemia type: unspecified type Qualified Code(s): D64.9 - Anemia, unspecified Code(s): D64.9 - Anemia, unspecified Status: Acute Assessment and Plan: Hemoglobin and hematocrit slightly decreased from baseline though remaining stable Monitor H&H closely No evidence of bleeding; vital signs are stable (7) Chronic atrial fibrillation: Code(s): I48.20 - Chronic atrial fibrillation, unspecified Status: Inactive Assessment and Plan: Rate is controlled at this time Continue Eliquis Continue metoprolol (8) Rheumatoid arthritis: Code(s): M06.9 - Rheumatoid arthritis, unspecified Status: Chronic Assessment and Plan: Managed by Rheumatology Holding immunosuppressive therapy in light of infectious process Subjective Date/time seen: 10/03/21 17:18 Interval history: Date of service: 10/03/2021 Ayanna Cash is a 71-year-old female with a history of CHF, atrial fibrillation on chronic anticoagulation, hypertension, hyperlipidemia, hypothyroidism, chronic respiratory failure on home oxygen, rheumatoid arthritis on immunosuppressive therapy, and several other comorbidities who is seen in follow-up for acute on chronic respiratory failure. She is feeling better today. She does endorse dyspnea on exertion. She has been transferring from the bed to the commode and this does cause her to feel more short of breath. She feels steady on her feet with transferring and denies dizziness or lightheadedness upon standing. She typically gets around using a walker. She denies cough or sputum production. No orthopnea. Reports lower extremity edema is unchanged. Denies nausea, vomiting, fever, chills. Denies abdominal pain. Reports regular bowel movements. [place]
[2021-10-03 19:04] LABS: Influenza Control Positive
[2021-10-03] MEDS: guaiFENesin 12 HR 600 MG TABCR PO (22:42)
[2021-10-04] VITALS (8 sets, daily range): BP systolic 125–136; BP diastolic 50–62; PULSE 65–80; RESP 18–20; TEMP 36.2–36.6; O2SAT 97–98
[2021-10-04] MEDS: ONDANSETRON INJ 4 MG/2 ML VIAL IV PUSH (05:16)
[2021-10-04 06:34] LABS: Hematocrit 28.9 % (37.0-47.0); Hemoglobin 9.2 g/dL (12.0-15.0); Mean Corpuscular HGB Conc 31.8 g/dl (32-36); Mean Corpuscular Hemoglobin 32.6 pg (26-34); Mean Corpuscular Volume 102.5 fl (80-100); Mean Platelet Volume 9.4 fl (7.4-10.4); Platelet Count Result 310 k/mm3 (150-375); Red Blood Count 2.82 M/mm3 (4.2-5.4); Red Cell Distribution Width 13.2 % (11.5-14.5)
[2021-10-04] MEDS: LEVOTHYROXINE SODIUM 112 MCG TABLET BY MOUTH (06:37)
[2021-10-04 06:46] LABS: Alanine Aminotransferase 33 U/L (4-35); Anion Gap 6 mmol/L (8-16); Blood Urea Nitrogen 35 mg/dL (7-17); Carbon Dioxide 28 mmol/L (22-30); Chloride 104 mmol/L (98-107); Estimated CRCL calculation 39 ml/min; Estimated Glomerular Filt Rate 37; Glucose 97 mg/dL (65-110); Magnesium 1.7 mg/dL (1.6-2.3); Potassium 3.8 mmol/L (3.4-5.0); Sodium 138 mmol/L (137-145)
[2021-10-04 06:50] LABS: NT Pro B Type Natriuretic Pept 1330 pg/mL (5-100)
[2021-10-04 07:16] LABS: INR 1.3; Prothrombin Time 15.8 Seconds (11.1-14.7)
[2021-10-04] MEDS: guaiFENesin 12 HR 600 MG TABCR PO ×2 (08:21→22:17)
[2021-10-04] MEDS: METOPROLOL SUCCINATE EXT REL 100 MG TABCR PO (08:21)
[2021-10-04] MEDS: POTASSIUM CHLORIDE 10 MEQ TABLET.ER PO (08:21)
[2021-10-04] MEDS: FOLIC ACID 1 MG TABLET PO (08:21)
[2021-10-04] MEDS: APIXABAN 5 MG TABLET PO ×2 (08:22→22:16)
[2021-10-04] MEDS: PRAVASTATIN SODIUM 20 MG TABLET 80 MG PO (08:22)
[2021-10-04] MEDS: CYANOCOBALAMIN 1,000 MCG TABLET 1000 MCG PO (08:22)
[2021-10-04] MEDS: METOPROLOL SUCCINATE EXT REL 25 MG TABCR PO (08:22)
[2021-10-04] MEDS: FUROSEMIDE 40 MG TABLET PO (08:23)
[2021-10-04] MEDS: CHOLECALCIFEROL 1,000 UNITS TABLET 2000 UNITS PO (08:23)
[2021-10-04] MEDS: ACETAMINOPHEN 325 MG TABLET 650 MG PO (08:36)
[2021-10-04] MEDS: CHOLESTYRAMINE (W/ SUGAR) 4 GM POWD.PACK PO (11:45)
--- NOTE | 2021-10-04 17:13 | P.PNIM_ITS ---
Progress Note: A&P Assessment and Plan (1) Acute and chronic respiratory failure ([id number]): Code(s): J96.20 - Acute and chronic respiratory failure, unspecified whether with hypoxia or hypercapnia Status: Acute Assessment and Plan: Chronic respiratory failure secondary to interstitial lung disease on 2 L per nasal cannula. Noted to be hypoxic on presentation required up to 4 L per nasal cannula * Likely secondary to pneumonia vs CHF * She is back on her typical 2 L at this time and maintaining adequate O2 sats * Continue supplemental O2 as needed with goal saturation 90% or above. Wean to goal * Plan as detailed below (2) Influenza B: Code(s): J10.1 - Influenza due to other identified influenza virus with other respiratory manifestations Status: Acute Assessment and Plan: CT showed extensive patchy ground-glass infiltrates of bilateral lungs, likely secondary to influenza * She is immunocompromised on immunosuppressive therapy * Given her need for hospitalization and immunocompromised status, will initiate Oseltamivir b.i.d. * She did complete influenza vaccinations this year * Will discontinue Levaquin as this is viral in origin and secondary bacterial pneumonia is unlikely based on clinical symptoms * COVID-19 test negative * Blood cultures and sputum cultures are pending * Supportive care to include bronchodilators, expectorants, antipyretics, incentive spirometry (3) CHF (congestive heart failure): Qualifiers: Heart failure chronicity: acute on chronic Heart failure type: diastolic Qualified Code(s): I50.33 - Acute on chronic diastolic (congestive) heart failure Code(s): I50.9 - Heart failure, unspecified Status: Acute Assessment and Plan: CTA and CXR with evidence of possible pulmonary edema. BNP is mildly elevated. * Appreciate cardiology consultation * Echo reviewed and shows preserved EF with diastolic dysfunction * Continue home Lasix 40 mg daily * Continue metoprolol * Monitor intake and output (4) Essential (primary) hypertension: Code(s): I10 - Essential (primary) hypertension Status: Chronic Assessment and Plan: Blood pressure reviewed and has been stable. Last BP 136/58 * Continue metoprolol (5) Hypothyroidism, unspecified: Code(s): E03.9 - Hypothyroidism, unspecified Status: Acute Assessment and Plan: TSH is within normal limits * Continue levothyroxine (6) Anemia: Qualifiers: Anemia type: unspecified type Qualified Code(s): D64.9 - Anemia, unspecified Code(s): D64.9 - Anemia, unspecified Status: Acute Assessment and Plan: Hemoglobin and hematocrit slightly decreased from baseline though remaining stable * Monitor H&H closely * No evidence of bleeding; vital signs are stable (7) Chronic atrial fibrillation: Code(s): I48.20 - Chronic atrial fibrillation, unspecified Status: Inactive Assessment and Plan: Rate is controlled at this time * Continue Eliquis * Continue metoprolol (8) Rheumatoid arthritis: Code(s): M06.9 - Rheumatoid arthritis, unspecified Status: Chronic Assessment and Plan: Managed by Rheumatology * Holding immunosuppressive therapy in light of infectious process Additional Plan Of note, she did note some burning in her left antecubital fossa during time of Levaquin administration. Unclear if this was related to her
--- NOTE | 2021-10-04 17:13 | PM.IMPN ---
Progress Note: A&P Assessment and Plan (1) Acute and chronic respiratory failure ([id number]): Code(s): J96.20 - Acute and chronic respiratory failure, unspecified whether with hypoxia or hypercapnia Status: Acute Assessment and Plan: Chronic respiratory failure secondary to interstitial lung disease on 2 L per nasal cannula. Noted to be hypoxic on presentation required up to 4 L per nasal cannula Likely secondary to pneumonia vs CHF She is back on her typical 2 L at this time and maintaining adequate O2 sats Continue supplemental O2 as needed with goal saturation 90% or above. Wean to goal Plan as detailed below (2) Influenza B: Code(s): J10.1 - Influenza due to other identified influenza virus with other respiratory manifestations Status: Acute Assessment and Plan: CT showed extensive patchy ground-glass infiltrates of bilateral lungs, likely secondary to influenza She is immunocompromised on immunosuppressive therapy Given her need for hospitalization and immunocompromised status, will initiate Oseltamivir b.i.d. She did complete influenza vaccinations this year Will discontinue Levaquin as this is viral in origin and secondary bacterial pneumonia is unlikely based on clinical symptoms COVID-19 test negative Blood cultures and sputum cultures are pending Supportive care to include bronchodilators, expectorants, antipyretics, incentive spirometry (3) CHF (congestive heart failure): Qualifiers: Heart failure chronicity: acute on chronic Heart failure type: diastolic Qualified Code(s): I50.33 - Acute on chronic diastolic (congestive) heart failure Code(s): I50.9 - Heart failure, unspecified Status: Acute Assessment and Plan: CTA and CXR with evidence of possible pulmonary edema. BNP is mildly elevated. Appreciate cardiology consultation Echo reviewed and shows preserved EF with diastolic dysfunction Continue home Lasix 40 mg daily Continue metoprolol Monitor intake and output (4) Essential (primary) hypertension: Code(s): I10 - Essential (primary) hypertension Status: Chronic Assessment and Plan: Blood pressure reviewed and has been stable. Last BP 136/58 Continue metoprolol (5) Hypothyroidism, unspecified: Code(s): E03.9 - Hypothyroidism, unspecified Status: Acute Assessment and Plan: TSH is within normal limits Continue levothyroxine (6) Anemia: Qualifiers: Anemia type: unspecified type Qualified Code(s): D64.9 - Anemia, unspecified Code(s): D64.9 - Anemia, unspecified Status: Acute Assessment and Plan: Hemoglobin and hematocrit slightly decreased from baseline though remaining stable Monitor H&H closely No evidence of bleeding; vital signs are stable (7) Chronic atrial fibrillation: Code(s): I48.20 - Chronic atrial fibrillation, unspecified Status: Inactive Assessment and Plan: Rate is controlled at this time Continue Eliquis Continue metoprolol (8) Rheumatoid arthritis: Code(s): M06.9 - Rheumatoid arthritis, unspecified Status: Chronic Assessment and Plan: Managed by Rheumatology Holding immunosuppressive therapy in light of infectious process Additional Plan Of note, she did note some burning in her left antecubital fossa during time of Levaquin administration. Unclear if this was related to her IV or to the Levaquin itself. This does not seem consistent with an allergic reaction. I believe that she could continue on Levaquin if required in the future but would need to be monitored closely. I have discontinued Levaquin as bacterial etiology is unlikely at this time in light of viral illness. Subjective Date/time seen: 10/04/21 17:13 Interval history: Date of service: 10/04/2021 Ayanna Cash is a 71-year-old female with a history of CHF, atrial fibrill
--- NOTE | 2021-10-04 17:34 | PM.PNCARD ---
Progress Note: A&P Assessment and Plan (1) FALCON (dyspnea on exertion): Code(s): R06.09 - Other forms of dyspnea Status: Acute Assessment and Plan: Etiology of the patient's FALCON is unclear. Her CT suggested extensive infiltrates consistent with COVID pneumonia. COVID test was negative but she is positive for influenza B despite being vaccinated. Levaquin has been discontinued at this point. She was given one dose of IV furosemide 20mg yesterday. Urine output was okay. She does not notice a significant improvement in her symptoms from yesterday to today. Perhaps slightly better. BNP essentially unchanged. Plan for now to continue with her home dose of 40 mg of furosemide daily. Check BMP tomorrow Remains on 2 L of oxygen per nasal cannula (2) Acute on chronic diastolic CHF (congestive heart failure): Code(s): I50.33 - Acute on chronic diastolic (congestive) heart failure Status: Acute Assessment and Plan: Elevated BNP, trace lower extremity edema, some crackles on pulmonary exam. Received an extra dose of diuretics yesterday. Will resume home dose of oral furosemide. (3) Interstitial lung disease: Code(s): J84.9 - Interstitial pulmonary disease, unspecified Status: Acute Assessment and Plan: Chronic interstitial lung disease on chronic O2. (4) Essential (primary) hypertension: Code(s): I10 - Essential (primary) hypertension Status: Chronic Assessment and Plan: BP mildly elevated on this admission (5) Macrocytic anemia: Code(s): D53.9 - Nutritional anemia, unspecified Status: Acute Assessment and Plan: Macrocytic anemia, somewhat worse than usual, which may be playing a role as well. (6) Paroxysmal atrial fibrillation: Code(s): I48.0 - Paroxysmal atrial fibrillation Status: Acute Assessment and Plan: History of PAF. Has been in NSR with every medical encounter recently. Anticoagulated with Eliquis. Subjective Date/time seen: 10/04/21 17:34 Interval history: Date of service: 10/04/2021 Cardiology follow up for CHF Review of Systems Constitutional: Constitutional: Reports lethargy Eyes: Eyes: Reports no additional eye complaints ENT: Denies epistaxis and Denies nasal congestion Cardiovascular: Cardiovascular: Denies chest pain, Denies diaphoresis, Denies pedal edema, Denies leg edema, Denies lightheadedness, Denies palpitations, Reports dyspnea and Reports dyspnea on exertion Respiratory: Respiratory: Reports cough, Reports dyspnea and Reports dyspnea on exertion Gastrointestinal: Gastrointestinal: Denies abdominal pain and Reports diarrhea Genitourinary: Genitourinary: Denies hematuria Musculoskeletal: Musculoskeletal: Reports no additional musculoskeletal complaints Integumentary/Breasts: Skin/Breast: Denies rash Neurologic: Denies behavioral changes and Denies confusion Psychiatric: Psychiatric: Denies behavioral changes and Denies confusion Endocrine: Endocrine: Denies palpitations Exam Narrative: Pleasant obese older female in no distress sitting on the edge of the bed. Alert oriented. Pleasant and cooperative. Const: General: comfortable and no acute distress; No confusion Orientation/consciousness: No confusion HENMT: Head: normal to inspection Mouth: Yes moist mucous membranes Eyes: General: appearance normal, both eyes and all related structures EOM: EOMs intact bilaterally Neck: Neck: supple and no JVD Thyroid: thyroid normal Carotids: no bruits Lymphatic: lymphadenopathy not noted Other: Faint jugular venous pulsations noted Resp: Effort & Inspection: normal respiratory effort Auscultation: crackles (Bases) bilateral Cardio: Rate: regular rate Rhythm: regular rhythm Heart sounds: no gallops and no murmurs Peripheral pulses: Peripheral pulses 2
[2021-10-04] MEDS: FAMOTIDINE 20 MG TABLET PO (22:15)
[2021-10-04] MEDS: OSELTAMIVIR PHOSPHATE 30 MG CAPSULE PO (22:16)
[2021-10-05] VITALS (8 sets, daily range): BP systolic 128–145; BP diastolic 58–75; PULSE 65–80; RESP 18–20; TEMP 36.2–36.9; O2SAT 98–99
[2021-10-05] MEDS: LEVOTHYROXINE SODIUM 112 MCG TABLET BY MOUTH (06:25)
[2021-10-05 06:59] LABS: Hematocrit 28.3 % (37.0-47.0); Hemoglobin 9.1 g/dL (12.0-15.0); Mean Corpuscular HGB Conc 32.2 g/dl (32-36); Mean Corpuscular Hemoglobin 32.7 pg (26-34); Mean Corpuscular Volume 101.8 fl (80-100); Mean Platelet Volume 9.2 fl (7.4-10.4); Platelet Count Result 280 k/mm3 (150-375); Red Blood Count 2.78 M/mm3 (4.2-5.4); Red Cell Distribution Width 13.5 % (11.5-14.5); White Blood Count 7.1 K/mm3 (4.5-10.0)
[2021-10-05 07:01] LABS: INR 1.3; Prothrombin Time 16.2 Seconds (11.1-14.7)
[2021-10-05 07:04] LABS: Alanine Aminotransferase 556 U/L (4-35); Anion Gap 6 mmol/L (8-16); Blood Urea Nitrogen 30 mg/dL (7-17); Calcium 9.6 mg/dL (8.4-10.2); Carbon Dioxide 26 mmol/L (22-30); Chloride 104 mmol/L (98-107); Estimated CRCL calculation 39 ml/min; Estimated Glomerular Filt Rate 37; Glucose 92 mg/dL (65-110); Potassium 4.3 mmol/L (3.4-5.0); Sodium 136 mmol/L (137-145)
[2021-10-05] MEDS: guaiFENesin 12 HR 600 MG TABCR PO ×2 (08:08→20:58)
[2021-10-05] MEDS: POTASSIUM CHLORIDE 10 MEQ TABLET.ER PO (08:08)
[2021-10-05] MEDS: METOPROLOL SUCCINATE EXT REL 100 MG TABCR PO (08:08)
[2021-10-05] MEDS: FOLIC ACID 1 MG TABLET PO (08:09)
[2021-10-05] MEDS: APIXABAN 5 MG TABLET PO ×2 (08:09→20:58)
[2021-10-05] MEDS: FUROSEMIDE 40 MG TABLET PO (08:09)
[2021-10-05] MEDS: METOPROLOL SUCCINATE EXT REL 25 MG TABCR PO (08:09)
[2021-10-05] MEDS: OSELTAMIVIR PHOSPHATE 30 MG CAPSULE PO ×2 (08:09→20:58)
[2021-10-05] MEDS: CHOLECALCIFEROL 1,000 UNITS TABLET 2000 UNITS PO (08:09)
[2021-10-05] MEDS: PRAVASTATIN SODIUM 20 MG TABLET 80 MG PO (08:10)
--- NOTE | 2021-10-05 14:27 | P.PNIM_ITS ---
Progress Note: A&P Assessment and Plan (1) Acute and chronic respiratory failure ([id number]): Code(s): J96.20 - Acute and chronic respiratory failure, unspecified whether with hypoxia or hypercapnia Status: Acute Assessment and Plan: Chronic respiratory failure secondary to interstitial lung disease on 2 L per nasal cannula. Noted to be hypoxic on presentation required up to 4 L per nasal cannula * Likely secondary to pneumonia vs CHF, possibly progression/worsening of her chronic lung disease * She is back on her typical 2 L at this time and maintaining adequate O2 sats * Continue supplemental O2 as needed with goal saturation 90% or above. Wean to goal * Endorses persistent dyspnea. Reports this has been significantly worsened over the past 4 weeks. Requests pulmonology consultation and input is appreciated. * Plan as detailed below (2) Influenza B: Code(s): J10.1 - Influenza due to other identified influenza virus with other respiratory manifestations Status: Acute Assessment and Plan: CT showed extensive patchy ground-glass infiltrates of bilateral lungs, likely secondary to influenza * Continue Oseltamivir b.i.d. * She did complete influenza vaccination this year * Blood cultures and sputum cultures are pending, negative to date * Supportive care to include bronchodilators, expectorants, antipyretics, incentive spirometry (3) CHF (congestive heart failure): Qualifiers: Heart failure chronicity: acute on chronic Heart failure type: diastolic Qualified Code(s): I50.33 - Acute on chronic diastolic (congestive) heart failure Code(s): I50.9 - Heart failure, unspecified Status: Acute Assessment and Plan: CTA and CXR with evidence of possible pulmonary edema. * Appreciate cardiology consultation * Echo reviewed and shows preserved EF with diastolic dysfunction * Continue home Lasix 40 mg daily * Continue metoprolol * Monitor intake and output * BNP unchanged on repeat today (4) Essential (primary) hypertension: Code(s): I10 - Essential (primary) hypertension Status: Chronic Assessment and Plan: Blood pressure reviewed and has been stable. Last BP 145/58 * Continue metoprolol (5) Hypothyroidism, unspecified: Code(s): E03.9 - Hypothyroidism, unspecified Status: Acute Assessment and Plan: TSH is within normal limits * Continue levothyroxine (6) Anemia: Qualifiers: Anemia type: unspecified type Qualified Code(s): D64.9 - Anemia, unspecified Code(s): D64.9 - Anemia, unspecified Status: Acute Assessment and Plan: Hemoglobin and hematocrit slightly decreased from baseline though remaining stable * Monitor H&H closely * No evidence of bleeding; vital signs are stable (7) Chronic atrial fibrillation: Code(s): I48.20 - Chronic atrial fibrillation, unspecified Status: Inactive Assessment and Plan: Rate is controlled at this time * Continue Eliquis * Continue metoprolol (8) Rheumatoid arthritis: Code(s): M06.9 - Rheumatoid arthritis, unspecified Status: Chronic Assessment and Plan: Managed by Rheumatology * Holding immunosuppressive therapy in light of infectious process Subjective Date/time seen: 10/05/21 14:27 Interval history: Date of service: 10/05/2021 Ayanna Cash is a 71-year-old female with a history of CHF, atrial
--- NOTE | 2021-10-05 14:27 | PM.IMPN ---
Progress Note: A&P Assessment and Plan (1) Acute and chronic respiratory failure ([id number]): Code(s): J96.20 - Acute and chronic respiratory failure, unspecified whether with hypoxia or hypercapnia Status: Acute Assessment and Plan: Chronic respiratory failure secondary to interstitial lung disease on 2 L per nasal cannula. Noted to be hypoxic on presentation required up to 4 L per nasal cannula Likely secondary to pneumonia vs CHF, possibly progression/worsening of her chronic lung disease She is back on her typical 2 L at this time and maintaining adequate O2 sats Continue supplemental O2 as needed with goal saturation 90% or above. Wean to goal Endorses persistent dyspnea. Reports this has been significantly worsened over the past 4 weeks. Requests pulmonology consultation and input is appreciated. Plan as detailed below (2) Influenza B: Code(s): J10.1 - Influenza due to other identified influenza virus with other respiratory manifestations Status: Acute Assessment and Plan: CT showed extensive patchy ground-glass infiltrates of bilateral lungs, likely secondary to influenza Continue Oseltamivir b.i.d. She did complete influenza vaccination this year Blood cultures and sputum cultures are pending, negative to date Supportive care to include bronchodilators, expectorants, antipyretics, incentive spirometry (3) CHF (congestive heart failure): Qualifiers: Heart failure chronicity: acute on chronic Heart failure type: diastolic Qualified Code(s): I50.33 - Acute on chronic diastolic (congestive) heart failure Code(s): I50.9 - Heart failure, unspecified Status: Acute Assessment and Plan: CTA and CXR with evidence of possible pulmonary edema. Appreciate cardiology consultation Echo reviewed and shows preserved EF with diastolic dysfunction Continue home Lasix 40 mg daily Continue metoprolol Monitor intake and output BNP unchanged on repeat today (4) Essential (primary) hypertension: Code(s): I10 - Essential (primary) hypertension Status: Chronic Assessment and Plan: Blood pressure reviewed and has been stable. Last BP 145/58 Continue metoprolol (5) Hypothyroidism, unspecified: Code(s): E03.9 - Hypothyroidism, unspecified Status: Acute Assessment and Plan: TSH is within normal limits Continue levothyroxine (6) Anemia: Qualifiers: Anemia type: unspecified type Qualified Code(s): D64.9 - Anemia, unspecified Code(s): D64.9 - Anemia, unspecified Status: Acute Assessment and Plan: Hemoglobin and hematocrit slightly decreased from baseline though remaining stable Monitor H&H closely No evidence of bleeding; vital signs are stable (7) Chronic atrial fibrillation: Code(s): I48.20 - Chronic atrial fibrillation, unspecified Status: Inactive Assessment and Plan: Rate is controlled at this time Continue Eliquis Continue metoprolol (8) Rheumatoid arthritis: Code(s): M06.9 - Rheumatoid arthritis, unspecified Status: Chronic Assessment and Plan: Managed by Rheumatology Holding immunosuppressive therapy in light of infectious process Subjective Date/time seen: 10/05/21 14:27 Interval history: Date of service: 10/05/2021 Ayanna Cash is a 71-year-old female with a history of CHF, atrial fibrillation on chronic anticoagulation, hypertension, hyperlipidemia, hypothyroidism, chronic respiratory failure on home oxygen, rheumatoid arthritis on immunosuppressive therapy, and several other comorbidities who is seen in follow-up for acute on chronic respiratory failure. She is feeling poorly today. She endorses continued shortness of breath and significant dyspnea on exertion to the point where she is only able to get up to the bedside commode. She also endorses conversational dyspnea.
[2021-10-05] MEDS: CHOLESTYRAMINE (W/ SUGAR) 4 GM POWD.PACK PO (15:10)
[2021-10-05] MEDS: ACETAMINOPHEN 325 MG TABLET 650 MG PO (15:13)
[2021-10-05] MEDS: FAMOTIDINE 20 MG TABLET PO (20:58)
[2021-10-06] VITALS (8 sets, daily range): BP systolic 126–138; BP diastolic 54–57; PULSE 69–88; RESP 18–19; TEMP 36.4–37.1; O2SAT 95–100
[2021-10-06] MEDS: LEVOTHYROXINE SODIUM 112 MCG TABLET BY MOUTH (06:13)
[2021-10-06 06:25] LABS: Hematocrit 28.5 % (37.0-47.0); Hemoglobin 9.2 g/dL (12.0-15.0)
[2021-10-06 06:28] LABS: Alanine Aminotransferase 329 U/L (4-35); Anion Gap 6 mmol/L (8-16); Blood Urea Nitrogen 24 mg/dL (7-17); Calcium 9.3 mg/dL (8.4-10.2); Carbon Dioxide 26 mmol/L (22-30); Chloride 104 mmol/L (98-107); Estimated CRCL calculation 45 ml/min; Estimated Glomerular Filt Rate 44; Glucose 98 mg/dL (65-110); Potassium 3.9 mmol/L (3.4-5.0); Sodium 136 mmol/L (137-145)
[2021-10-06 07:09] LABS: INR 1.3; Prothrombin Time 16.4 Seconds (11.1-14.7)
[2021-10-06] MEDS: CHOLECALCIFEROL 1,000 UNITS TABLET 2000 UNITS PO (08:04)
[2021-10-06] MEDS: OSELTAMIVIR PHOSPHATE 30 MG CAPSULE PO ×2 (08:05→20:19)
[2021-10-06] MEDS: guaiFENesin 12 HR 600 MG TABCR PO ×2 (08:05→20:19)
[2021-10-06] MEDS: APIXABAN 5 MG TABLET PO ×2 (08:06→20:18)
[2021-10-06] MEDS: CYANOCOBALAMIN 1,000 MCG TABLET 1000 MCG PO (08:06)
[2021-10-06] MEDS: FUROSEMIDE 40 MG TABLET PO (08:06)
[2021-10-06] MEDS: POTASSIUM CHLORIDE 10 MEQ TABLET.ER PO (08:07)
[2021-10-06] MEDS: PRAVASTATIN SODIUM 20 MG TABLET 80 MG PO (08:07)
[2021-10-06] MEDS: METOPROLOL SUCCINATE EXT REL 100 MG TABCR PO (08:07)
[2021-10-06] MEDS: FOLIC ACID 1 MG TABLET PO (08:07)
[2021-10-06] MEDS: METOPROLOL SUCCINATE EXT REL 25 MG TABCR PO (08:08)
--- NOTE | 2021-10-06 08:11 | PM.CNPUL ---
Assessment and Plan Assessment and plan (1) Influenza B: Code(s): J10.1 - Influenza due to other identified influenza virus with other respiratory manifestations Status: Acute Assessment and Plan: Patient with worsening dyspnea on exertion and hypoxemia at home with some chills and found to be influenza B positive on nasal swab. Patient is being treated with Oseltamivir 30 mg p.o. q.12 hours given her creatinine clearance. this was started on 10/04 at 9:00 p.m. and will continue for now. Patient will need at least 5 days of this therapy and we will consider more extended treatment given her immunosuppression from methotrexate and Plaquenil. Agree with supplemental oxygen to maintain saturations 90-94% and patient has been on 2 L nasal cannula with rest throughout this hospitalization. Agree with discontinuation of all immunosuppressants including inhaled or systemic steroids and I feel no need for antibiotics. I will repeat a chest x-ray today. (2) Nonspecific interstitial pneumonitis: Code(s): J84.89 - Other specified interstitial pulmonary diseases Status: Acute Assessment and Plan: Patient with rheumatoid arthritis and presumed NSIP 1st diagnosed on CT scan from 01/20/2019. Patient has been treated with methotrexate and Plaquenil for her rheumatoid arthritis. her current CT scan of the chest demonstrates worsening interstitial and alveolar infiltrates but is impossible to determine if this is progression of NSIP or influenza B pneumonia. I agree with holding all immunosuppressants at this time. Patient was referred by our Pulmonary Clinic to the interstitial Lung Disease Clinic at [facility] and the patient tells me [facility] has contacted her and she thinks her appointment is set for 11/05/2021. (3) STARR on CPAP: Code(s): G47.33 - Obstructive sleep apnea (adult) (pediatric); Z99.89 - Dependence on other enabling machines and devices Status: Chronic Assessment and Plan: Patient has a history of stroke of obstructive sleep apnea on CPAP 8 and room air. Patient has not been able to wear her CPAP over the last 2 weeks because she needs continuous oxygen and felt she could not wear the CPAP mask on top of her nasal cannula oxygen. Will attempt to obtain a download to determine her overall compliance prior to this 2 weeks. Once we have this download we will determine what the best CPAP settings and or auto PAP are while she is in the hospital. Will follow with you. History of Present Illness History of Present Illness Consult date: 10/06/21 Requesting physician: Vita Florez PA-C Reason for consult: pneumonia Chief complaint: Pneumonia/dyspnea Narrative: 10/06/2021: This is a new Pulmonary consult for influenza pneumonia 71-year-old woman with a history of hypertension, rheumatoid arthritis diagnosed approximately 3 years ago on methotrexate and Plaquenil, paroxysmal atrial fibrillation on Eliquis, NSIP 1st diagnosed by CT scan on 01/20/2019, obstructive sleep apnea on CPAP 8, chronic hypoxemic respiratory failure on no oxygen at rest and 2 L with ambulation presented to the hospital on 10/02/21 with approximately 2-3 weeks worsening dyspnea on exertion, chills, no change in her chronic dry cough, denied fever or hemoptysis. Patient denied any headache but has chronic body aches due to her rheumatoid arthritis and constantly takes Tylenol. Patient was admitted with a white blood cell count of 6.9, creatinine of 1.2, worsening bilateral interstitial and alveolar infiltrates compared to 09/21/2021 and was subsequently found to have a influenza B positive nasal swab. COVID RT PCR test was negative, sputum Gram stain showed moderate epithelial cells, no organisms seen and growth of normal dale, blood cultures are negative. Patient had a CT angiogram of the chest without any pulmonary embolism and new extensive ground-glass infiltrates on top of her chronic interstit
[2021-10-06 08:43] LABS: Albumin Level 3.5 g/dL (3.5-5.1); Alkaline Phosphatase 167 U/L (38-126); Aspartate Amino Transferase 122 U/L (14-36); Bilirubin,Total 0.4 mg/dL (0.2-1.3)
[2021-10-06] MEDS: CHOLESTYRAMINE (W/ SUGAR) 4 GM POWD.PACK PO (12:39)
[2021-10-06] MEDS: ACETAMINOPHEN 325 MG TABLET 650 MG PO (15:03)
--- NOTE | 2021-10-06 15:10 | P.PNIM_ITS ---
Progress Note: A&P Assessment and Plan (1) Acute and chronic respiratory failure ([id number]): Code(s): J96.20 - Acute and chronic respiratory failure, unspecified whether with hypoxia or hypercapnia Status: Acute Assessment and Plan: Chronic respiratory failure secondary to interstitial lung disease on 2 L per nasal cannula. Noted to be hypoxic on presentation and required up to 4 L per nasal cannula * Likely secondary to pneumonia vs CHF * She is back on her typical 2 L at this time and maintaining adequate O2 sats * Continue supplemental O2 as needed with goal saturation 90% or above. Wean to goal * Appreciate pulmonology consultation * Plan as detailed below (2) Influenza B: Code(s): J10.1 - Influenza due to other identified influenza virus with other respiratory manifestations Status: Acute Assessment and Plan: CT showed extensive patchy ground-glass infiltrates of bilateral lungs, likely secondary to influenza * Continue Oseltamivir 30 mg b.i.d., renally dosed * She did complete influenza vaccination this year * Blood cultures are pending, negative to date. Sputum culture negative. * Supportive care to include bronchodilators, expectorants, antipyretics, incentive spirometry (3) CHF (congestive heart failure): Qualifiers: Heart failure chronicity: acute on chronic Heart failure type: diastolic Qualified Code(s): I50.33 - Acute on chronic diastolic (congestive) heart failure Code(s): I50.9 - Heart failure, unspecified Status: Acute Assessment and Plan: CTA and CXR with evidence of possible pulmonary edema. * Appreciate cardiology consultation * Echo reviewed and shows preserved EF with diastolic dysfunction * Continue home Lasix 40 mg daily * Continue metoprolol * Monitor intake and output (4) Essential (primary) hypertension: Code(s): I10 - Essential (primary) hypertension Status: Chronic Assessment and Plan: Blood pressure reviewed and has been stable. Last BP 126/57 * Continue metoprolol (5) Hypothyroidism, unspecified: Code(s): E03.9 - Hypothyroidism, unspecified Status: Acute Assessment and Plan: TSH is within normal limits * Continue levothyroxine (6) Anemia: Qualifiers: Anemia type: unspecified type Qualified Code(s): D64.9 - Anemia, unspecified Code(s): D64.9 - Anemia, unspecified Status: Acute Assessment and Plan: Hemoglobin and hematocrit slightly decreased from baseline though remaining stable * Monitor H&H closely * No evidence of bleeding; vital signs are stable (7) Chronic atrial fibrillation: Code(s): I48.20 - Chronic atrial fibrillation, unspecified Status: Inactive Assessment and Plan: Rate is controlled at this time * Continue Eliquis * Continue metoprolol (8) Rheumatoid arthritis: Code(s): M06.9 - Rheumatoid arthritis, unspecified Status: Chronic Assessment and Plan: Managed by Rheumatology * Holding immunosuppressive therapy in light of infectious process (9) STARR on CPAP: Code(s): G47.33 - Obstructive sleep apnea (adult) (pediatric); Z99.89 - Dependence on other enabling machines and devices Status: Acute Assessment and Plan: Reports she has not been using her CPAP for 2 weeks because she was requiring continuous O2 per nasal cannula * Planning for overnight oximetry tonight * Appr
--- NOTE | 2021-10-06 15:10 | PM.IMPN ---
Progress Note: A&P Assessment and Plan (1) Acute and chronic respiratory failure ([id number]): Code(s): J96.20 - Acute and chronic respiratory failure, unspecified whether with hypoxia or hypercapnia Status: Acute Assessment and Plan: Chronic respiratory failure secondary to interstitial lung disease on 2 L per nasal cannula. Noted to be hypoxic on presentation and required up to 4 L per nasal cannula Likely secondary to pneumonia vs CHF She is back on her typical 2 L at this time and maintaining adequate O2 sats Continue supplemental O2 as needed with goal saturation 90% or above. Wean to goal Appreciate pulmonology consultation Plan as detailed below (2) Influenza B: Code(s): J10.1 - Influenza due to other identified influenza virus with other respiratory manifestations Status: Acute Assessment and Plan: CT showed extensive patchy ground-glass infiltrates of bilateral lungs, likely secondary to influenza Continue Oseltamivir 30 mg b.i.d., renally dosed She did complete influenza vaccination this year Blood cultures are pending, negative to date. Sputum culture negative. Supportive care to include bronchodilators, expectorants, antipyretics, incentive spirometry (3) CHF (congestive heart failure): Qualifiers: Heart failure chronicity: acute on chronic Heart failure type: diastolic Qualified Code(s): I50.33 - Acute on chronic diastolic (congestive) heart failure Code(s): I50.9 - Heart failure, unspecified Status: Acute Assessment and Plan: CTA and CXR with evidence of possible pulmonary edema. Appreciate cardiology consultation Echo reviewed and shows preserved EF with diastolic dysfunction Continue home Lasix 40 mg daily Continue metoprolol Monitor intake and output (4) Essential (primary) hypertension: Code(s): I10 - Essential (primary) hypertension Status: Chronic Assessment and Plan: Blood pressure reviewed and has been stable. Last BP 126/57 Continue metoprolol (5) Hypothyroidism, unspecified: Code(s): E03.9 - Hypothyroidism, unspecified Status: Acute Assessment and Plan: TSH is within normal limits Continue levothyroxine (6) Anemia: Qualifiers: Anemia type: unspecified type Qualified Code(s): D64.9 - Anemia, unspecified Code(s): D64.9 - Anemia, unspecified Status: Acute Assessment and Plan: Hemoglobin and hematocrit slightly decreased from baseline though remaining stable Monitor H&H closely No evidence of bleeding; vital signs are stable (7) Chronic atrial fibrillation: Code(s): I48.20 - Chronic atrial fibrillation, unspecified Status: Inactive Assessment and Plan: Rate is controlled at this time Continue Eliquis Continue metoprolol (8) Rheumatoid arthritis: Code(s): M06.9 - Rheumatoid arthritis, unspecified Status: Chronic Assessment and Plan: Managed by Rheumatology Holding immunosuppressive therapy in light of infectious process (9) STARR on CPAP: Code(s): G47.33 - Obstructive sleep apnea (adult) (pediatric); Z99.89 - Dependence on other enabling machines and devices Status: Acute Assessment and Plan: Reports she has not been using her CPAP for 2 weeks because she was requiring continuous O2 per nasal cannula Planning for overnight oximetry tonight Appreciate pulmonology recommendations Subjective Date/time seen: 10/06/21 15:10 Interval history: Date of service: 10/05/2021 Ayanna Cash is a 71-year-old female with a history of CHF, atrial fibrillation on chronic anticoagulation, hypertension, hyperlipidemia, hypothyroidism, chronic respiratory failure on home oxygen, rheumatoid arthritis on immunosuppressive therapy, and several other comorbidities who is seen in follow-up for acute on chronic respiratory failure. She is fee
[2021-10-06] MEDS: FAMOTIDINE 20 MG TABLET PO (20:19)
[2021-10-07] VITALS (9 sets, daily range): BP systolic 114–136; BP diastolic 50–64; PULSE 78–89; RESP 14–20; TEMP 36.4–36.7; O2SAT 90–98
--- NOTE | 2021-10-07 01:18 | PCRCNOTE ---
Therapist placed pt on Apnea link at 10pm. Took pt off of Oxygen and pt desated to 89. Placed pt on cpap and bleed in 2 L and pts sats went up to 95. Pts nurse called and pt couldnt stand to be on CPAP any longer. Nurse took pt off of CPAP at 1am. There wasn't enough data to process. Pt stated they felt like they were suffocating/ choking on the cpap and couldnt take it any longer. They were on a nasal mask because pt couldnt do a full face mask. Pt stated they also could not sleep and they were really tired and wanted to sleep some of the night.
[2021-10-07] MEDS: LEVOTHYROXINE SODIUM 112 MCG TABLET BY MOUTH (06:08)
[2021-10-07] MEDS: ACETAMINOPHEN 325 MG TABLET 650 MG PO ×2 (06:17→20:14)
[2021-10-07 06:33] LABS: Hematocrit 28.1 % (37.0-47.0); Mean Corpuscular Hemoglobin 32.4 pg (26-34); Mean Corpuscular Volume 101.1 fl (80-100); Mean Platelet Volume 8.9 fl (7.4-10.4); Platelet Count Result 275 k/mm3 (150-375); Red Blood Count 2.78 M/mm3 (4.2-5.4); Red Cell Distribution Width 13.2 % (11.5-14.5); White Blood Count 7.7 K/mm3 (4.5-10.0)
[2021-10-07 06:46] LABS: Alanine Aminotransferase 201 U/L (4-35); Albumin Level 3.4 g/dL (3.5-5.1); Alkaline Phosphatase 130 U/L (38-126); Anion Gap 5 mmol/L (8-16); Aspartate Amino Transferase 50 U/L (14-36); Bilirubin,Total 0.3 mg/dL (0.2-1.3); Blood Urea Nitrogen 20 mg/dL (7-17); Calcium 8.9 mg/dL (8.4-10.2); Carbon Dioxide 26 mmol/L (22-30); Chloride 105 mmol/L (98-107); Estimated CRCL calculation 45 ml/min; Estimated Glomerular Filt Rate 44; Glucose 96 mg/dL (65-110); Potassium 4.2 mmol/L (3.4-5.0); Sodium 136 mmol/L (137-145)
[2021-10-07 08:10] LABS: Hepatitis B Surface Antigen Negative (Negative)
[2021-10-07 08:16] LABS: HAV RESULT Negative (Negative); Hepatitis B Core IgM Result Negative (Negative)
[2021-10-07 08:27] LABS: Hepatitis C Virus Antibody Negative (Negative)
[2021-10-07] MEDS: POTASSIUM CHLORIDE 10 MEQ TABLET.ER PO (08:46)
[2021-10-07] MEDS: METOPROLOL SUCCINATE EXT REL 100 MG TABCR PO (08:46)
[2021-10-07] MEDS: PRAVASTATIN SODIUM 20 MG TABLET 80 MG PO (08:46)
[2021-10-07] MEDS: OSELTAMIVIR PHOSPHATE 30 MG CAPSULE PO ×2 (08:46→20:15)
[2021-10-07] MEDS: FOLIC ACID 1 MG TABLET PO (08:46)
[2021-10-07] MEDS: APIXABAN 5 MG TABLET PO ×2 (08:46→20:15)
[2021-10-07] MEDS: METOPROLOL SUCCINATE EXT REL 25 MG TABCR PO (08:46)
[2021-10-07] MEDS: CHOLECALCIFEROL 1,000 UNITS TABLET 2000 UNITS PO (08:46)
[2021-10-07] MEDS: FUROSEMIDE 40 MG TABLET PO (08:47)
[2021-10-07] MEDS: guaiFENesin 12 HR 600 MG TABCR PO ×2 (08:47→20:14)
--- NOTE | 2021-10-07 11:47 | PM.PNPUL ---
Progress Note: A&P Assessment and Plan (1) Influenza B: Code(s): J10.1 - Influenza due to other identified influenza virus with other respiratory manifestations Status: Acute Assessment and Plan: 10/06 Patient with worsening dyspnea on exertion and hypoxemia at home with some chills and found to be influenza B positive on nasal swab. Patient is being treated with Oseltamivir 30 mg p.o. q.12 hours given her creatinine clearance. this was started on 10/04 at 9:00 p.m. and will continue for now. Patient will need at least 5 days of this therapy and we will consider more extended treatment given her immunosuppression from methotrexate and Plaquenil. Agree with supplemental oxygen to maintain saturations 90-94% and patient has been on 2 L nasal cannula with rest throughout this hospitalization. Agree with discontinuation of all immunosuppressants including inhaled or systemic steroids and I feel no need for antibiotics. I will repeat a chest x-ray today. No change to mild improvement in her infiltrates from 10/02/2021. 10/07 patient continues to slowly improve clinically, her x-ray is stable and her oxygenation has improved she is now on room air during the day. Given her immunosuppressed state and her NSIP I recommend a total of 10 days of Tamiflu and currently she is on 30 mg q.12 hours given her creatinine clearance. From a pulmonary perspective patient is suitable for discharge on these pulmonary medications: Tamiflu 30 mg PO Q 12 hours through 10/13 she is scheduled to see Dr. Norman in the [facility] on 11/30/2021 and I told her to keep this appointment. Discussed with Vita Florez, will sign off, call with questions. (2) Nonspecific interstitial pneumonitis: Code(s): J84.89 - Other specified interstitial pulmonary diseases Status: Acute Assessment and Plan: Patient with rheumatoid arthritis and presumed NSIP 1st diagnosed on CT scan from 01/20/2019. Patient has been treated with methotrexate and Plaquenil for her rheumatoid arthritis. her current CT scan of the chest demonstrates worsening interstitial and alveolar infiltrates but is impossible to determine if this is progression of NSIP or influenza B pneumonia. I agree with holding all immunosuppressants at this time. Patient was referred by our Pulmonary Clinic to the interstitial Lung Disease Clinic at [facility] and the patient tells me [facility] has contacted her and she thinks her appointment is set for 11/05/2021. 10/06 patient contacted her daughter who told her that her interstitial lung disease clinic appointment at [facility] is 11/03/21. she is scheduled to see Dr. Norman in the [facility] on 11/30/2021 and I told her to keep this appointment. (3) STARR on CPAP: Code(s): G47.33 - Obstructive sleep apnea (adult) (pediatric); Z99.89 - Dependence on other enabling machines and devices Status: Chronic Assessment and Plan: Patient has a history of stroke of obstructive sleep apnea on CPAP 8 and room air. Patient has not been able to wear her CPAP over the last 2 weeks because she needs continuous oxygen and felt she could not wear the CPAP mask on top of her nasal cannula oxygen. Will attempt to obtain a download to determine her overall compliance prior to this 2 weeks. Once we have this download we will determine what the best CPAP settings and or auto PAP are while she is in the hospital. 10/07 We did attempt patient with a hospital CPAP 8 with 2 L bleed in and the patient wore this for 2 hours but was unable to sleep and felt as if this machine was suffocating her. Apnea link was ordered but not performed because she did not wear it long enough. It appears the patient's oxygenation status is returning close to her baseline. At this time I told the patient she should wear her CPAP 8 at night and that will we will order an outpatient home overnight oximetry on C
[2021-10-07] MEDS: CHOLESTYRAMINE (W/ SUGAR) 4 GM POWD.PACK PO (12:03)
--- NOTE | 2021-10-07 14:31 | P.PNIM_ITS ---
Progress Note: A&P Assessment and Plan (1) Acute and chronic respiratory failure ([id number]): Code(s): J96.20 - Acute and chronic respiratory failure, unspecified whether with hypoxia or hypercapnia Status: Acute Assessment and Plan: Chronic respiratory failure secondary to interstitial lung disease on 2 L per nasal cannula. Noted to be hypoxic on presentation and required up to 4 L per nasal cannula. Acute respiratory failure likely multifactorial related to pneumonia and CHF * She has been weaned to room air today with no desats and needs 2 L supplemental O2 with ambulation * Continue supplemental O2 as needed with goal saturation 90% or above. Wean to goal * Appreciate pulmonology consultation * Home O2 eval tomorrow; hopeful discharge 10/08 or 10/09 * Plan as detailed below (2) Influenza B: Code(s): J10.1 - Influenza due to other identified influenza virus with other respiratory manifestations Status: Acute Assessment and Plan: CT showed extensive patchy ground-glass infiltrates of bilateral lungs, likely secondary to influenza * Continue Oseltamivir 30 mg b.i.d., renally dosed. Given her immunocompromised status and chronic respiratory disease, will plan to treat for 10 days. * She did complete influenza vaccination this year * Blood cultures are pending, negative to date. Sputum culture negative. * Supportive care to include bronchodilators, expectorants, antipyretics, incentive spirometry (3) CHF (congestive heart failure): Qualifiers: Heart failure chronicity: acute on chronic Heart failure type: diastolic Qualified Code(s): I50.33 - Acute on chronic diastolic (congestive) heart failure Code(s): I50.9 - Heart failure, unspecified Status: Acute Assessment and Plan: CTA and CXR with evidence of pulmonary edema. * Appreciate cardiology consultation * Echo reviewed and shows preserved EF with diastolic dysfunction * She had symptomatic improvement with IV diuresis. Continue home Lasix 40 mg daily * Continue metoprolol * Monitor intake and output (4) Essential (primary) hypertension: Code(s): I10 - Essential (primary) hypertension Status: Chronic Assessment and Plan: Blood pressure reviewed and has been stable. Last BP 126/64 * Continue metoprolol (5) Hypothyroidism, unspecified: Code(s): E03.9 - Hypothyroidism, unspecified Status: Acute Assessment and Plan: TSH is within normal limits * Continue levothyroxine (6) Anemia: Qualifiers: Anemia type: unspecified type Qualified Code(s): D64.9 - Anemia, unspecified Code(s): D64.9 - Anemia, unspecified Status: Acute Assessment and Plan: Hemoglobin and hematocrit slightly decreased from baseline though remaining stable * Monitor H&H closely * No evidence of bleeding; vital signs are stable (7) Chronic atrial fibrillation: Code(s): I48.20 - Chronic atrial fibrillation, unspecified Status: Inactive Assessment and Plan: Rate is controlled at this time * Continue Eliquis * Continue metoprolol (8) Rheumatoid arthritis: Code(s): M06.9 - Rheumatoid arthritis, unspecified Status: Chronic Assessment and Plan: Managed by Rheumatology * Holding immunosuppressive therapy in light of infectious process (9) STARR on CPAP: Code(s): G47.33 - Obstructive sleep apnea (adult) (pediatric); Z99.89 - Dependence
--- NOTE | 2021-10-07 14:31 | PM.IMPN ---
Progress Note: A&P Assessment and Plan (1) Acute and chronic respiratory failure ([id number]): Code(s): J96.20 - Acute and chronic respiratory failure, unspecified whether with hypoxia or hypercapnia Status: Acute Assessment and Plan: Chronic respiratory failure secondary to interstitial lung disease on 2 L per nasal cannula. Noted to be hypoxic on presentation and required up to 4 L per nasal cannula. Acute respiratory failure likely multifactorial related to pneumonia and CHF She has been weaned to room air today with no desats and needs 2 L supplemental O2 with ambulation Continue supplemental O2 as needed with goal saturation 90% or above. Wean to goal Appreciate pulmonology consultation Home O2 eval tomorrow; hopeful discharge 10/08 or 10/09 Plan as detailed below (2) Influenza B: Code(s): J10.1 - Influenza due to other identified influenza virus with other respiratory manifestations Status: Acute Assessment and Plan: CT showed extensive patchy ground-glass infiltrates of bilateral lungs, likely secondary to influenza Continue Oseltamivir 30 mg b.i.d., renally dosed. Given her immunocompromised status and chronic respiratory disease, will plan to treat for 10 days. She did complete influenza vaccination this year Blood cultures are pending, negative to date. Sputum culture negative. Supportive care to include bronchodilators, expectorants, antipyretics, incentive spirometry (3) CHF (congestive heart failure): Qualifiers: Heart failure chronicity: acute on chronic Heart failure type: diastolic Qualified Code(s): I50.33 - Acute on chronic diastolic (congestive) heart failure Code(s): I50.9 - Heart failure, unspecified Status: Acute Assessment and Plan: CTA and CXR with evidence of pulmonary edema. Appreciate cardiology consultation Echo reviewed and shows preserved EF with diastolic dysfunction She had symptomatic improvement with IV diuresis. Continue home Lasix 40 mg daily Continue metoprolol Monitor intake and output (4) Essential (primary) hypertension: Code(s): I10 - Essential (primary) hypertension Status: Chronic Assessment and Plan: Blood pressure reviewed and has been stable. Last BP 126/64 Continue metoprolol (5) Hypothyroidism, unspecified: Code(s): E03.9 - Hypothyroidism, unspecified Status: Acute Assessment and Plan: TSH is within normal limits Continue levothyroxine (6) Anemia: Qualifiers: Anemia type: unspecified type Qualified Code(s): D64.9 - Anemia, unspecified Code(s): D64.9 - Anemia, unspecified Status: Acute Assessment and Plan: Hemoglobin and hematocrit slightly decreased from baseline though remaining stable Monitor H&H closely No evidence of bleeding; vital signs are stable (7) Chronic atrial fibrillation: Code(s): I48.20 - Chronic atrial fibrillation, unspecified Status: Inactive Assessment and Plan: Rate is controlled at this time Continue Eliquis Continue metoprolol (8) Rheumatoid arthritis: Code(s): M06.9 - Rheumatoid arthritis, unspecified Status: Chronic Assessment and Plan: Managed by Rheumatology Holding immunosuppressive therapy in light of infectious process (9) STARR on CPAP: Code(s): G47.33 - Obstructive sleep apnea (adult) (pediatric); Z99.89 - Dependence on other enabling machines and devices Status: Acute Assessment and Plan: Reports she has not been using her CPAP for 2 weeks because she was requiring continuous O2 per nasal cannula Overnight oximetry ordered on 10/06, the patient was unable to tolerate the CPAP. She will need to resume her home CPAP on discharge and will follow-up with the [facility] to have a home overnight oximetry testing done. Appreciate pulmonology recommendations (10) [place]
[2021-10-07] MEDS: FAMOTIDINE 20 MG TABLET PO (20:15)
[2021-10-08] VITALS (7 sets, daily range): BP systolic 116–146; BP diastolic 53–64; PULSE 69–74; RESP 16–18; TEMP 36.7–36.8; O2SAT 94–100
[2021-10-08] MEDS: LEVOTHYROXINE SODIUM 112 MCG TABLET BY MOUTH (05:39)
[2021-10-08 06:31] LABS: Alanine Aminotransferase 139 U/L (4-35); Albumin Level 3.4 g/dL (3.5-5.1); Alkaline Phosphatase 116 U/L (38-126); Anion Gap 6 mmol/L (8-16); Aspartate Amino Transferase 30 U/L (14-36); Bilirubin,Total 0.3 mg/dL (0.2-1.3); Blood Urea Nitrogen 25 mg/dL (7-17); Calcium 9.3 mg/dL (8.4-10.2); Carbon Dioxide 27 mmol/L (22-30); Chloride 105 mmol/L (98-107); Estimated CRCL calculation 49 ml/min; Estimated Glomerular Filt Rate 49; Glucose 88 mg/dL (65-110); Potassium 3.9 mmol/L (3.4-5.0); Sodium 138 mmol/L (137-145)
[2021-10-08 07:00] LABS: Hematocrit 29.5 % (37.0-47.0); Hemoglobin 9.4 g/dL (12.0-15.0)
[2021-10-08] MEDS: CYANOCOBALAMIN 1,000 MCG TABLET 1000 MCG PO (08:15)
[2021-10-08] MEDS: METOPROLOL SUCCINATE EXT REL 100 MG TABCR PO (08:15)
[2021-10-08] MEDS: CHOLECALCIFEROL 1,000 UNITS TABLET 2000 UNITS PO (08:15)
[2021-10-08] MEDS: PRAVASTATIN SODIUM 20 MG TABLET 80 MG PO (08:15)
[2021-10-08] MEDS: FUROSEMIDE 40 MG TABLET PO (08:15)
[2021-10-08] MEDS: POTASSIUM CHLORIDE 10 MEQ TABLET.ER PO (08:16)
[2021-10-08] MEDS: APIXABAN 5 MG TABLET PO ×2 (08:16→20:33)
[2021-10-08] MEDS: guaiFENesin 12 HR 600 MG TABCR PO ×2 (08:16→20:33)
[2021-10-08] MEDS: FOLIC ACID 1 MG TABLET PO (08:16)
[2021-10-08] MEDS: METOPROLOL SUCCINATE EXT REL 25 MG TABCR PO (08:16)
[2021-10-08] MEDS: OSELTAMIVIR PHOSPHATE 30 MG CAPSULE PO ×2 (08:16→20:33)
--- NOTE | 2021-10-08 12:04 | P.PNIM_ITS ---
Progress Note: A&P Assessment and Plan (1) Acute and chronic respiratory failure ([id number]-zw-[id number]): Code(s): J96.20 - Acute and chronic respiratory failure, unspecified whether with hypoxia or hypercapnia Status: Acute Assessment and Plan: Chronic respiratory failure secondary to interstitial lung disease on 2 L per nasal cannula. Noted to be hypoxic on presentation and required up to 4 L per nasal cannula. Acute respiratory failure likely multifactorial related to pneumonia and CHF * Currently on 2 L per nasal cannula and maintaining adequate O2 sats * Continue supplemental O2 as needed with goal saturation 90% or above. Wean to goal * Appreciate pulmonology consultation * Will order home O2 eval. Hopeful discharge tomorrow. * Plan as detailed below (2) Influenza B: Code(s): J10.1 - Influenza due to other identified influenza virus with other respiratory manifestations Status: Acute Assessment and Plan: CT showed extensive patchy ground-glass infiltrates of bilateral lungs, likely secondary to influenza * Continue Oseltamivir 30 mg b.i.d., renally dosed. Given her immunocompromised status and chronic respiratory disease, will plan to treat for 10 days. Day #4 * She did complete influenza vaccination this year * Blood cultures and sputum culture negative. * Supportive care to include bronchodilators, expectorants, antipyretics, incentive spirometry (3) CHF (congestive heart failure): Qualifiers: Heart failure chronicity: acute on chronic Heart failure type: diastolic Qualified Code(s): I50.33 - Acute on chronic diastolic (congestive) heart failure Code(s): I50.9 - Heart failure, unspecified Status: Acute Assessment and Plan: CTA and CXR with evidence of pulmonary edema. * Appreciate cardiology consultation * Echo reviewed and shows preserved EF with diastolic dysfunction * She had symptomatic improvement with IV diuresis. Continue home Lasix 40 mg daily * Continue metoprolol * Monitor intake and output (4) Essential (primary) hypertension: Code(s): I10 - Essential (primary) hypertension Status: Chronic Assessment and Plan: Blood pressure reviewed and has been stable. Last BP 146/64 * Continue metoprolol (5) Hypothyroidism, unspecified: Code(s): E03.9 - Hypothyroidism, unspecified Status: Acute Assessment and Plan: TSH is within normal limits * Continue levothyroxine (6) Anemia: Qualifiers: Anemia type: unspecified type Qualified Code(s): D64.9 - Anemia, unspecified Code(s): D64.9 - Anemia, unspecified Status: Acute Assessment and Plan: Hemoglobin and hematocrit slightly decreased from baseline though remaining stable * Monitor H&H closely * No evidence of bleeding; vital signs are stable (7) Chronic atrial fibrillation: Code(s): I48.20 - Chronic atrial fibrillation, unspecified Status: Inactive Assessment and Plan: Rate is controlled at this time * Continue Eliquis * Continue metoprolol (8) Rheumatoid arthritis: Code(s): M06.9 - Rheumatoid arthritis, unspecified Status: Chronic Assessment and Plan: Managed by Rheumatology * Holding immunosuppressive therapy in light of infectious process (9) STARR on CPAP: Code(s): G47.33 - Obstructive sleep apnea (adult) (pediatric); Z99.89 - Dependence on other enabling machines and devices Statu
--- NOTE | 2021-10-08 12:04 | PM.IMPN ---
Progress Note: A&P Assessment and Plan (1) Acute and chronic respiratory failure ([id number]): Code(s): J96.20 - Acute and chronic respiratory failure, unspecified whether with hypoxia or hypercapnia Status: Acute Assessment and Plan: Chronic respiratory failure secondary to interstitial lung disease on 2 L per nasal cannula. Noted to be hypoxic on presentation and required up to 4 L per nasal cannula. Acute respiratory failure likely multifactorial related to pneumonia and CHF Currently on 2 L per nasal cannula and maintaining adequate O2 sats Continue supplemental O2 as needed with goal saturation 90% or above. Wean to goal Appreciate pulmonology consultation Will order home O2 eval. Hopeful discharge tomorrow. Plan as detailed below (2) Influenza B: Code(s): J10.1 - Influenza due to other identified influenza virus with other respiratory manifestations Status: Acute Assessment and Plan: CT showed extensive patchy ground-glass infiltrates of bilateral lungs, likely secondary to influenza Continue Oseltamivir 30 mg b.i.d., renally dosed. Given her immunocompromised status and chronic respiratory disease, will plan to treat for 10 days. Day #4 She did complete influenza vaccination this year Blood cultures and sputum culture negative. Supportive care to include bronchodilators, expectorants, antipyretics, incentive spirometry (3) CHF (congestive heart failure): Qualifiers: Heart failure chronicity: acute on chronic Heart failure type: diastolic Qualified Code(s): I50.33 - Acute on chronic diastolic (congestive) heart failure Code(s): I50.9 - Heart failure, unspecified Status: Acute Assessment and Plan: CTA and CXR with evidence of pulmonary edema. Appreciate cardiology consultation Echo reviewed and shows preserved EF with diastolic dysfunction She had symptomatic improvement with IV diuresis. Continue home Lasix 40 mg daily Continue metoprolol Monitor intake and output (4) Essential (primary) hypertension: Code(s): I10 - Essential (primary) hypertension Status: Chronic Assessment and Plan: Blood pressure reviewed and has been stable. Last BP 146/64 Continue metoprolol (5) Hypothyroidism, unspecified: Code(s): E03.9 - Hypothyroidism, unspecified Status: Acute Assessment and Plan: TSH is within normal limits Continue levothyroxine (6) Anemia: Qualifiers: Anemia type: unspecified type Qualified Code(s): D64.9 - Anemia, unspecified Code(s): D64.9 - Anemia, unspecified Status: Acute Assessment and Plan: Hemoglobin and hematocrit slightly decreased from baseline though remaining stable Monitor H&H closely No evidence of bleeding; vital signs are stable (7) Chronic atrial fibrillation: Code(s): I48.20 - Chronic atrial fibrillation, unspecified Status: Inactive Assessment and Plan: Rate is controlled at this time Continue Eliquis Continue metoprolol (8) Rheumatoid arthritis: Code(s): M06.9 - Rheumatoid arthritis, unspecified Status: Chronic Assessment and Plan: Managed by Rheumatology Holding immunosuppressive therapy in light of infectious process (9) STARR on CPAP: Code(s): G47.33 - Obstructive sleep apnea (adult) (pediatric); Z99.89 - Dependence on other enabling machines and devices Status: Acute Assessment and Plan: Reports she has not been using her CPAP for 2 weeks because she was requiring continuous O2 per nasal cannula Overnight oximetry ordered on 10/06, the patient was unable to tolerate the CPAP. She will need to resume her home CPAP on discharge and will follow-up with the [facility] to have a home overnight oximetry testing done. Appreciate pulmonology recommendations (10) Physical deconditioning: Code(s): R53.81 - Other mal
[2021-10-08] MEDS: CHOLESTYRAMINE (W/ SUGAR) 4 GM POWD.PACK PO (12:15)
[2021-10-08] MEDS: FAMOTIDINE 20 MG TABLET PO (20:33)
[2021-10-08] MEDS: ACETAMINOPHEN 325 MG TABLET 650 MG PO (20:36)
[2021-10-09] VITALS (9 sets, daily range): BP systolic 141; BP diastolic 54; PULSE 70–83; RESP 18; TEMP 36.8; O2SAT 87–95
[2021-10-09] MEDS: LEVOTHYROXINE SODIUM 112 MCG TABLET BY MOUTH (06:14)
[2021-10-09 07:07] LABS: Alanine Aminotransferase 88 U/L (4-35); Anion Gap 5 mmol/L (8-16); Blood Urea Nitrogen 20 mg/dL (7-17); Calcium 9.1 mg/dL (8.4-10.2); Carbon Dioxide 27 mmol/L (22-30); Chloride 103 mmol/L (98-107); Estimated CRCL calculation 49 ml/min; Estimated Glomerular Filt Rate 49; Glucose 94 mg/dL (65-110); Potassium 4.1 mmol/L (3.4-5.0); Sodium 135 mmol/L (137-145)
--- NOTE | 2021-10-09 09:40 | PCNWS ---
Weekly nutritional screen. Patient is tolerating current diet with adequate intake of 100% of meals. No weight loss reported. No nutritional needs at this time.
[2021-10-09] MEDS: guaiFENesin 12 HR 600 MG TABCR PO (09:42)
[2021-10-09] MEDS: POTASSIUM CHLORIDE 10 MEQ TABLET.ER PO (09:42)
[2021-10-09] MEDS: FUROSEMIDE 40 MG TABLET PO (09:42)
[2021-10-09] MEDS: FOLIC ACID 1 MG TABLET PO (09:42)
[2021-10-09] MEDS: METOPROLOL SUCCINATE EXT REL 100 MG TABCR PO (09:42)
[2021-10-09] MEDS: METOPROLOL SUCCINATE EXT REL 25 MG TABCR PO (09:42)
[2021-10-09] MEDS: APIXABAN 5 MG TABLET PO (09:42)
[2021-10-09] MEDS: CHOLECALCIFEROL 1,000 UNITS TABLET 2000 UNITS PO (09:43)
[2021-10-09] MEDS: OSELTAMIVIR PHOSPHATE 30 MG CAPSULE PO (09:43)
[2021-10-09] MEDS: PRAVASTATIN SODIUM 20 MG TABLET 80 MG PO (09:43)
[2021-10-09] MEDS: CHOLESTYRAMINE (W/ SUGAR) 4 GM POWD.PACK PO (11:56)
[2021-10-09] MEDS: ACETAMINOPHEN 325 MG TABLET 650 MG PO (11:56)
--- NOTE | 2021-10-09 12:28 | HOMEO2EVAL ---
Evaluation was performed at [facility] Home Oxygen Evaluation RC: Home Oxygen (O2) Evaluation Start: 10/08/21 12:21 Freq: ONCE Status: Active Protocol: RPE Activity Type Activity Date Activity User E-Sign Co-Sign Detail Recorded Client Recorded Date Recorded By Document 10/09/21 11:00 [email or web address] [email or web address] 10/09/21 12:28 ULISSES Document 10/09/21 11:01 [email or web address] [email or web address] 10/09/21 12:28 ULISSES Document 10/09/21 11:02 [email or web address] [email or web address] 10/09/21 12:28 ULISSES Document 10/09/21 11:03 [email or web address] [email or web address] 10/09/21 12:28 ULISSES Document 10/09/21 11:04 [email or web address] [email or web address] 10/09/21 12:28 ULISSES Document 10/09/21 11:05 [email or web address] [email or web address] 10/09/21 12:28 ULISSES Document 10/09/21 11:15 ULISSES [email or web address] 10/09/21 12:28 ULISSES 10/09/21 10/09/21 10/09/21 11:00 11:01 11:02 Home O2 Evaluation Test Phase Resting Resting Resting Oxygen Delivery Room Air Nasal Cannula Nasal Cannula Oxygen Flow Rate (L/min) 1 2 Pulse Oximetry (90-100 %) 87 L 87 L 93 Pulse Rate (60-100 beats/min) 71 71 Ambulation Distance (feet) Home Oxygen Evaluation Comments 10/09/21 10/09/21 10/09/21 11:03 11:04 11:05 Home O2 Evaluation Test Phase Exercise Exercise Exercise Oxygen Delivery Nasal Cannula Nasal Cannula Nasal Cannula Oxygen Flow Rate (L/min) 2 3 4 Pulse Oximetry (90-100 %) 87 L 87 L 90 Pulse Rate (60-100 beats/min) 83 Ambulation Distance (feet) 75 Home Oxygen Evaluation Comments PT REQUIRES 2L REST AND 4L WITH ACTIVITY 10/09/21 11:15 Home O2 Evaluation Test Phase Resting Oxygen Delivery Nasal Cannula Oxygen Flow Rate (L/min) 2 Pulse Oximetry (90-100 %) 93 Pulse Rate (60-100 beats/min) 76 Ambulation Distance (feet) Home Oxygen Evaluation Comments
--- NOTE | 2021-10-09 12:29 | PCRCNOTE ---
HOME O2 EVAL DONE, PT REQUIRES 2 L REST AND 4 L WITH ACTIVITY. PT HAS [facility]. SHE WILL HAVE A TANK IN CAR FOR TRANSPORT HOME.
--- NOTE | 2021-10-09 13:33 | PM.DS ---
DS: Admitting Diagnosis Discharge Date 10/09/2021 Admitting Diagnosis Community-acquired pneumonia DS: Discharge Diagnosis Discharge Diagnosis (1) Acute and chronic respiratory failure ([id number]): Code(s): J96.20 - Acute and chronic respiratory failure, unspecified whether with hypoxia or hypercapnia Status: Acute Assessment and Plan: Chronic respiratory failure secondary to interstitial lung disease on 2 L per nasal cannula. Noted to be hypoxic on presentation and required up to 4 L per nasal cannula. Acute respiratory failure likely multifactorial related to pneumonia and CHF. She was seen in consultation by pulmonology. She has follow-up scheduled in October with interstitial lung disease clinic at [facility] and then will follow-up in the Pulmonary Clinic with Dr. Norman after this appointment. Home O2 eval performed on 10/09/2021 which demonstrated need for 2 L supplemental O2 with rest and 4 L with ambulation/exertion. (2) Influenza B: Code(s): J10.1 - Influenza due to other identified influenza virus with other respiratory manifestations Status: Acute Assessment and Plan: CT showed extensive patchy ground-glass infiltrates of bilateral lungs, likely secondary to influenza. Found to have positive influenza B testing on 10/03/2021. She was started on Tamiflu 30 mg b.i.d. (renally dosed). Given her immunocompromised status and chronic respiratory disease, it was recommended for pulmonology to treat for 10 days. She completed 5 days during her admission will continue 5 more days at home. Blood cultures and sputum culture negative. Supportive care provided including bronchodilators, expectorants, antipyretics, and incentive spirometry. She did complete her influenza vaccination this year. (3) CHF (congestive heart failure): Qualifiers: Heart failure chronicity: acute on chronic Heart failure type: diastolic Qualified Code(s): I50.33 - Acute on chronic diastolic (congestive) heart failure Code(s): I50.9 - Heart failure, unspecified Status: Acute Assessment and Plan: CTA and CXR with evidence of pulmonary edema. Echo reviewed and showed preserved EF with diastolic dysfunction. She was seen in consultation by cardiology and had improvement with IV diuresis. She was resumed back on her home Lasix 40 mg daily and did well with this dose. Continue metoprolol. CHF education provided. (4) Essential (primary) hypertension: Code(s): I10 - Essential (primary) hypertension Status: Chronic Assessment and Plan: Blood pressure reviewed and remained stable. Continue metoprolol (5) Hypothyroidism, unspecified: Code(s): E03.9 - Hypothyroidism, unspecified Status: Acute Assessment and Plan: TSH is within normal limits. Continue levothyroxine (6) Anemia: Qualifiers: Anemia type: unspecified type Qualified Code(s): D64.9 - Anemia, unspecified Code(s): D64.9 - Anemia, unspecified Status: Acute Assessment and Plan: Hemoglobin and hematocrit slightly decreased from baseline though remained stable. No evidence of bleeding. Vital signs remained stable. (7) Chronic atrial fibrillation: Code(s): I48.20 - Chronic atrial fibrillation, unspecified Status: Inactive Assessment and Plan: Rate remained controlled. Continue Eliquis and metoprolol (8) Rheumatoid arthritis: Code(s): M06.9 - Rheumatoid arthritis, unspecified Status: Chronic Assessment and Plan: Managed by Rheumatology. Immunosuppressive therapy including methotrexate and hydroxychloroquine held given infectious process. Instructed to continue to hold until informed by her social work nurse to resume. She has been in contact with her social work nurse for recommendations. (9) STARR on CPAP: Code(s): G47.33 - Obstructive sleep apnea (adult) (pediatric); Z99.89 - D
--- NOTE | 2021-10-09 13:41 | PCNSR ---
On 10/09/21, the student,Mervat Zayas, provided care and completed [facility] documentation on this patient. I have reviewed the student's documentation and agree with the findings.
--- NOTE | 2021-10-09 13:43 | PCOTNOTE ---
Pt. declined OT this date stating I'm not gonna do it, I'm going home.
== END 2021-10-09 13:33 | disposition home health service (06) | DRG 193 ==
LOC: ANHED 11:50 → ANH3MEDSUR 10-03 07:54
PROVIDERS: Internal Medicine Cardiovascular Disease; Nurse Practitioner; Admitting Provider Internal Medicine; Emergency Provider Emergency Medicine; PCP Internal Medicine; Visit Provider Physician Assistant
DX: J10.1 Influenza due to other identified influenza virus with other respiratory manifestations (principal); I50.33 Acute on chronic diastolic (congestive) heart failure; J96.20 Acute and chronic respiratory failure, unspecified whether with hypoxia or hypercapnia; I48.20 Chronic atrial fibrillation, unspecified; J84.89 Other specified interstitial pulmonary diseases; I11.0 Hypertensive heart disease with heart failure; E78.5 Hyperlipidemia, unspecified; M06.9 Rheumatoid arthritis, unspecified; E03.9 Hypothyroidism, unspecified; Z20.822 Contact with and (suspected) exposure to COVID-19; I27.20 Pulmonary hypertension, unspecified; G47.33 Obstructive sleep apnea (adult) (pediatric); D53.9 Nutritional anemia, unspecified; R53.81 Other malaise; Z99.81 Dependence on supplemental oxygen; Z79.01 Long term (current) use of anticoagulants; Z79.899 Other long term (current) drug therapy; Z86.711 Personal history of pulmonary embolism; Z86.718 Personal history of other venous thrombosis and embolism; Z87.891 Personal history of nicotine dependence; Z99.89 Dependence on other enabling machines and devices
CPT/HCPCS: 36415; 71045; 71275; 80048; 80053; 80074; 80076; 82565; 82728; 83605; 83615; 83735; 83880; 84145; 84443; 84460; 84484; 85014; 85018; 85025; 85027; 85380; 85610; 85730; 87040; 87070; 87205; 87804; 93005; 93306; 96365; 97110; 97116; 97161; 97165; 97530; 97535; 99291; A9270; C9803; J1100; J1940; J1956; J2405; J8540; Q9967; U0003; U0005

== ENCOUNTER 2021-10-20 11:38 | Outpatient (NON) | payer MEDICARE, SELFPAY ==
[2021-10-20 14:05] LABS: Add Urine Microscopic? YES; Amorphous Sediment Urine Few; Appearance Urine Cloudy (Clear); Bacteria Urine 3+ /hpf; Bilirubin Urine Negative (Negative); Blood Urine 2+ (Negative); Color Urine Yellow (Yellow); Glucose Urine UA Negative (Negative); Ketones Urine Negative (Negative); Leukocyte Esterase Ur 2+ LEU/UL (NEGATIVE); Mucus Urine Rare /lpf; Nitrate Urine Positive (Negative); Protein Urine 1+ mg/dL (Negative); RBC Urine >75 /hpf (0-2); Specific Grav Ur 1.018 (1.001-1.035); Squamous Epithelial Cell Urine Moderate /hpf (Few); Urobilinogen Urine Negative mg/dL (<2.0); WBC Clumps Urine Present /HPF; WBC Urine >75 /hpf (0-3)
== END 2021-10-20 11:39 | disposition home or self-care (01) ==
PROVIDERS: PCP Internal Medicine; Referring Provider Internal Medicine; Visit Provider Internal Medicine
DX: N39.0 Urinary tract infection, site not specified (principal)
CPT/HCPCS: 81001; 87077; 87086; 87186

== ENCOUNTER 2021-11-08 12:22 | Outpatient (NON) | payer MEDICARE, SELFPAY ==
[2021-11-08 13:16] LABS: Albumin Level 4.1 g/dL (3.5-5.1); Anion Gap 12 mmol/L (8-16); Blood Urea Nitrogen 20 mg/dL (7-17); Calcium 9.9 mg/dL (8.4-10.2); Carbon Dioxide 24 mmol/L (22-30); Chloride 98 mmol/L (98-107); Estimated Glomerular Filt Rate 49; Glucose 114 mg/dL (65-110); Potassium 3.7 mmol/L (3.4-5.0); Sodium 134 mmol/L (137-145)
[2021-11-08 13:24] LABS: Creatinine Urine 58.6 mg/dL; Total Protein Urine Random 13 mg/dL; Ur Ttl Prot Creatinine Ratio 0.22 mg/mg (0-0.20)
== END 2021-11-08 12:23 | disposition home or self-care (01) ==
PROVIDERS: PCP Internal Medicine; Visit Provider Internal Medicine Nephrology
DX: I12.9 Hypertensive chronic kidney disease with stage 1 through stage 4 chronic kidney disease, or unspecified chronic kidney disease (principal); N18.32 Chronic kidney disease, stage 3b; R80.8 Other proteinuria
CPT/HCPCS: 80069; 82570; 84156

== ENCOUNTER 2021-11-22 10:56 | Outpatient (NON) | payer MEDICARE, SELFPAY ==
[2021-11-22 11:22] LABS: Add Urine Microscopic? YES; Appearance Urine Cloudy (Clear); Bacteria Urine Trace /hpf; Bilirubin Urine Negative (Negative); Blood Urine 1+ (Negative); Color Urine Yellow (Yellow); Glucose Urine UA Negative (Negative); Ketones Urine Negative (Negative); Leukocyte Esterase Ur 3+ LEU/UL (Negative); Mucus Urine Rare /lpf; Nitrate Urine Negative (Negative); Protein Urine Negative (Negative); RBC Urine 0-2 /hpf (0-2); Specific Grav Ur 1.009 (1.001-1.035); Squamous Epithelial Cell Urine Few /hpf (Few); Urobilinogen Urine Negative mg/dL (<2.0)
== END 2021-11-22 10:57 | disposition home or self-care (01) ==
PROVIDERS: PCP Internal Medicine; Visit Provider Internal Medicine
DX: R31.9 Hematuria, unspecified (principal)
CPT/HCPCS: 81001; 87077; 87086; 87088; 87186

== ENCOUNTER 2021-12-25 08:13 | Outpatient (CLI) | payer MEDICARE, SELFPAY ==
[2021-12-25 10:10] LABS: Basophils Percent Auto 0.5 % (0.2-1.2); Eosinophils Absolute Auto 0.2 K/mm3 (0-0.3); Eosinophils Percent Auto 2.4 % (0-4.4); Hematocrit 32.8 % (37.0-47.0); Immature Granulocyte Absolute 0.04 K/mm3 (0.00-0.031); Immature Granulocyte Percent A 0.5 % (0-0.5); Lymphocytes Absolute Auto 1.41 K/mm3 (0.9-3.2); Lymphocytes Percent Auto 15.9 % (18.3-44.2); Mean Corpuscular HGB Conc 30.5 g/dl (32-36); Mean Corpuscular Hemoglobin 31.5 pg (26-34); Mean Corpuscular Volume 103.5 fl (80-100); Mean Platelet Volume 10.1 fl (7.4-10.4); Monocytes Absolute Auto 0.9 K/mm3 (0.1-0.6); Monocytes Percent Auto 9.6 % (2.6-8.5); Neutrophils Absolute Auto 6.3 K/mm3 (1.3-6.7); Neutrophils Percent Auto 71.1 % (45.5-73.1); Platelet Count Result 239 k/mm3 (150-375); Red Blood Count 3.17 M/mm3 (4.2-5.4); Red Cell Distribution Width 14.2 % (11.5-14.5); White Blood Count 8.9 K/mm3 (4.5-10.0)
[2021-12-25 10:24] LABS: Alanine Aminotransferase 12 U/L (4-35); Albumin Level 3.9 g/dL (3.5-5.1); Alkaline Phosphatase 44 U/L (38-126); Anion Gap 5 mmol/L (8-16); Aspartate Amino Transferase 20 U/L (14-36); Bilirubin,Total 0.4 mg/dL (0.2-1.3); Blood Urea Nitrogen 36 mg/dL (7-17); Calcium 9.5 mg/dL (8.4-10.2); Carbon Dioxide 29 mmol/L (22-30); Chloride 100 mmol/L (98-107); Cholesterol 150 mg/dL (0-200); Estimated Glomerular Filt Rate 49; Glucose 82 mg/dL (65-110); HDL Direct 79 mg/dL; Potassium 3.9 mmol/L (3.4-5.0); Sodium 134 mmol/L (137-145); Triglycerides 69 mg/dL (<150)
[2021-12-25 10:36] LABS: LDL Cholesterol Direct 39 mg/dL
== END 2021-12-25 08:14 | disposition home or self-care (01) ==
PROVIDERS: PCP Internal Medicine; Visit Provider Nurse Practitioner
DX: R73.03 Prediabetes (principal); D64.9 Anemia, unspecified; E66.01 Morbid (severe) obesity due to excess calories; E78.2 Mixed hyperlipidemia; Z68.43 Body mass index [BMI] 50.0-59.9, adult; E53.8 Deficiency of other specified B group vitamins
CPT/HCPCS: 36415; 80053; 80061; 82607; 83036; 85025

== ENCOUNTER 2021-12-29 11:03 | Inpatient (IN) | payer MEDICARE, SELFPAY ==
--- NOTE | ~2021-12-29 | CT_ITS ---
EXAMINATION: CTA chest PE protocol DATE: 12/29/2021 12:48 INDICATION: Shortness of breath. TECHNIQUE: Computed tomography angiography (CTA) of the chest was performed with 100 mL Omnipaque-350 intravenous contrast timed to evaluate the pulmonary arteries. Coronal maximum intensity projection 3D-reconstructions were created by the technologist. Automated exposure control and iterative reconst ruction technique were employed. The dose-length product was 1000.45 mGy-cm. COMPARISON: Chest CT 10/01/2021, 07/23/2019, CT abdomen and pelvis 01/02/2020 FINDINGS: There are peripheral airspace and groundglass opacities and septal thickening throughout th e lungs with architectural distortion. There is air trapping in lateral segment right middle lobe. No honeycombing. There is mild atelectasis in lingula. No pleural effusion. Cardiomegaly is noted. The central pulmonary are enlarged, consistent with pulmonary arterial hypertension. There is no pulmonar y embolus. There is mild mediastinal and bilateral hilar lymphadenopathy. There are changes of cholec ystectomy. There is a 2.8 cm cyst in right kidney. There is mild left hydronephrosis. There is mild t horacic spondylosis. IMPRESSION: 1. No pulmonary embolus. Sensitivity is mildly decreased by motion artifact. 2. Diffuse lung disease, stable from 07/23/2019, consistent with chronic interstitial lung disease in a pattern of nonspecific interstitial pneumonia (NSIP). 3. Cardiomegaly. 4. Chronic mild mediastinal and bilateral hilar lymphadenopathy, likely reactive. 5. Mild left hydronephrosis, new from 01/02/2020. Reviewed, dictated and finalized at location E. SR IMPRESSION: 1. No pulmonary embolus. Sensitivity is mildly decreased by motion artifact. 2. Diffuse lung disease, stable from 07/23/2019, consistent with chronic interst itial lung disease in a pattern of nonspecific interstitial pneumonia (NSIP). 3. Cardiomegaly. 4. Chronic mild mediastinal and bilateral hilar lymphadenopathy, likely reactiv e. 5. Mild left hydronephrosis, new from 01/02/2020.
--- NOTE | ~2021-12-29 | XR_ITS ---
EXAMINATION: XR chest 2V EXAM DATE: 01/03/2022 08:07 INDICATION: F/U on CHF exacerbation. TECHNIQUE: Frontal and lateral projections of the chest obtained and reviewed. Comparison is made to prior examination from 10/06/2021. FINDINGS: There is moderate amount of left-sided, likely the chronic NSIP reported on recent pulmonar y CT. Can't exclude superimposed acute pneumonia or edema. There is mild cardiomegaly. There is aorti c arteriosclerosis. There are bony degenerative changes. There are cholecystectomy clips. IMPRESSION: Moderate left, smaller right-sided chronic or acute on chronic airspace disease. Cardiom egaly. Reviewed, dictated and finalized at location B. PUMPING STATION HELPER IMPRESSION: Moderate left, smaller right-sided chronic or acute on chronic air space disease. Cardiomegaly.
[2021-12-29 11:19] VITALS: BP 147/88; PULSE 110; RESP 24; TEMP 36.6; O2SAT 100
--- NOTE | 2021-12-29 11:21 | ECG_ITS ---
Measurements Intervals [place] Rate: 108 P: CT: 0 QRS: -20 QRSD: 120 T: 75 QT: 331 QTc: 444 Interpretive Statements ATRIAL FIBRILLATION WITH RAPID VENTRICULAR RESPONSE INTRAVENTRICULAR CONDUCTION DELAY LEFT VENTRICULAR HYPERTROPHY WITH ST-T CHANGE BORDERLINE R WAVE PROGRESSION, ANTERIOR LEADS BASELINE ARTIFACT- I, II, AVR, AVL, V1-V6 ABNORMAL ECG Electronically Signed On 12-29-2021 12:55:56 ENGINEERING TEST SPECIALIST by Michael Parker D.O.
[2021-12-29 11:24] VITALS: PULSE 126
--- NOTE | 2021-12-29 11:37 | ED.SOB ---
HPI - SOB/Dyspnea General Chief Complaint: Shortness of Breath/Dyspnea Stated Complaint: rapid heart rate Time Seen by Provider: 12/29/21 11:25 Source: patient History of Present Illness HPI Narrative: Patient presents with shortness of breath, palpitations, feeling unwell. Patient gio has had symptoms for the past 3 days getting progressively worse. She took a home Covid test today and was positive so she came to the ER for evaluation. Reports cough and subjective fevers as well she denies any focal areas of pain she denies any nausea or vomiting. Related Data Home Medications Medication Instructions Recorded Confirmed folic acid 1 mg tablet 1 mg PO DAILY 10/06/19 12/29/21 hydroxychloroquine 400 mg PO DAILY 01/27/20 12/29/21 calcium carbonate 600 mg-vitamin 1 tablet PO BID 02/16/21 12/29/21 D3 20 mcg (800 unit) chewable tablet Eliquis 5 mg PO BID 10/02/21 12/29/21 acetaminophen 500 mg tablet 1,000 mg PO .Q8 PRN tablet 10/11/21 12/29/21 cholecalciferol (vitamin D3) 25 25 mcg PO DAILY 10/11/21 12/29/21 mcg (1,000 unit) capsule prednisone 10 mg tablet 15 mg PO DAILY tablet 11/10/21 12/29/21 Allergies Allergy/AdvReac Type Severity Reaction Status Date / Time No Known Allergies Allergy Verified 12/29/21 14:25 Review of Systems Review of Systems: CONSTITUTIONAL: Reports fevers chills and sweats EYES: Denies visual changes, redness, or discharge. ENT: Denies rhinorrhea, congestion, sore throat, or otalgia. CARDIOVASCULAR: Reports palpitations RESPIRATORY: Reports cough and shortness of breath GASTROINTESTINAL: Denies abdominal pain, nausea, vomiting, or diarrhea. GENITOURINARY: Denies dysuria or hematuria. SKIN: Denies rash or itching. MUSCULOSKELETAL: Denies back pain, joint pain, or myalgia. NEUROLOGIC: Denies headache, numbness, dizziness, or weakness. PSYCHIATRIC: Denies anxiety or depression. All systems reviewed & are unremarkable except as noted in HPI and below PMFSH Past Medical History Medical History Acute on chronic respiratory failure with hypoxemia Afib Bruit CHF (congestive heart failure) Chronic diastolic CHF (congestive heart failure) Chronic respiratory failure Degenerative joint disease of right hip Diverticulosis DJD (degenerative joint disease), multiple sites DVT (deep venous thrombosis) 2004 Essential (primary) hypertension Hearing loss History of pulmonary embolus (PE) HLD (hyperlipidemia) Hypertension Hypomagnesemia Hypothyroid Impaired glucose tolerance Interstitial lung disease Morbid obesity Morbid obesity with BMI of 50.0-59.9, adult Nonspecific interstitial pneumonitis On home O2 STARR on CPAP STARR on CPAP Paroxysmal atrial fibrillation Personal history of DVT (deep vein thrombosis) Post menopausal syndrome Pre-diabetes Pulmonary embolism 2004 Pulmonary HTN Rheumatoid arthritis Screening for breast cancer Screening for colon cancer Screening for osteoporosis Shingles Sleep apnea Stress incontinence Trochanteric bursitis, right hip Unilateral primary osteoarthritis, right knee (05/15/17) UTI (urinary tract infection) UTI due to extended-spectrum beta lactamase (ESBL) producing Escherichia coli Surgical History Surgical History H/O arthroscopic knee surgery rt knee H/O section H/O parathyroidectomy History of cardiac catheterization History of parathyroidectomy for hyperparathyroidism History of total bilateral knee replacement History of total knee replacement (TKR) bilateral Hx of cardiac cath 1994 Hx of section Hx of cholecystectomy Hx of tonsillectomy S/P right knee arthroscopy Family History Family History Mother , at 91 due to old age Hypertension Father , at 58 due to PE Family history of rheumatoid arthritis Family history of p
[2021-12-29 12:03] LABS: Basophils Percent Auto 0.2 % (0.2-1.2); Hematocrit 29.5 % (37.0-47.0); Hemoglobin 9.5 g/dL (12.0-15.0); Immature Granulocyte Absolute 0.04 K/mm3 (0.00-0.031); Immature Granulocyte Percent A 0.4 % (0-0.5); Lymphocytes Absolute Auto 0.46 K/mm3 (0.9-3.2); Lymphocytes Percent Auto 4.3 % (18.3-44.2); Mean Corpuscular HGB Conc 32.2 g/dl (32-36); Mean Corpuscular Hemoglobin 31.6 pg (26-34); Mean Platelet Volume 10.8 fl (7.4-10.4); Monocytes Absolute Auto 0.9 K/mm3 (0.1-0.6); Monocytes Percent Auto 8.4 % (2.6-8.5); Neutrophils Absolute Auto 9.3 K/mm3 (1.3-6.7); Neutrophils Percent Auto 86.7 % (45.5-73.1); Platelet Count Result 200 k/mm3 (150-375); Red Blood Count 3.01 M/mm3 (4.2-5.4); Red Cell Distribution Width 13.8 % (11.5-14.5); White Blood Count 10.7 K/mm3 (4.5-10.0)
[2021-12-29 12:04] VITALS: O2SAT 100
[2021-12-29 12:13] LABS: SARS-CoV-2 RNA PCR Negative
[2021-12-29 12:14] LABS: Alanine Aminotransferase 14 U/L (4-35); Albumin Level 3.9 g/dL (3.5-5.1); Alkaline Phosphatase 39 U/L (38-126); Anion Gap 7 mmol/L (8-16); Aspartate Amino Transferase 25 U/L (14-36); Bilirubin,Total 0.6 mg/dL (0.2-1.3); Blood Urea Nitrogen 27 mg/dL (7-17); Calcium 9.7 mg/dL (8.4-10.2); Carbon Dioxide 23 mmol/L (22-30); Chloride 99 mmol/L (98-107); Estimated CRCL calculation 45 ml/min; Estimated Glomerular Filt Rate 44; Glucose 114 mg/dL (65-110); Potassium 3.8 mmol/L (3.4-5.0); Sodium 129 mmol/L (137-145)
[2021-12-29 12:21] LABS: INR 1.5; Prothrombin Time 17.8 Seconds (11.1-14.7)
[2021-12-29 12:22] LABS: NT Pro B Type Natriuretic Pept 11000 pg/mL (5-100)
[2021-12-29] MEDS: SODIUM CHLORIDE 0.9% IV 500 ML 999 ML IV CONT (12:22)
[2021-12-29] MEDS: FUROSEMIDE INJ 40 MG/4 ML VIAL IV PUSH ×2 (12:59→21:51)
[2021-12-29] MEDS: REMDESIVIR 200 MG/NS 250 ML 200 MG/250 ML BAG 250 MG IVPB (13:02)
[2021-12-29 14:10] LABS: Add Urine Microscopic? YES; Appearance Urine Clear (Clear); Bacteria Urine 3+ /hpf; Bilirubin Urine Negative (Negative); Blood Urine 3+ (Negative); Color Urine Yellow (Yellow); Glucose Urine UA Negative (Negative); Ketones Urine Negative (Negative); Leukocyte Esterase Ur 2+ LEU/UL (Negative); Nitrate Urine Positive (Negative); Protein Urine Negative (Negative); RBC Urine 51-75 /hpf (0-2); Specific Grav Ur 1.016 (1.001-1.035); Squamous Epithelial Cell Urine Occasional /hpf (Few); Urobilinogen Urine Negative mg/dL (<2.0); WBC Urine 31-50 /hpf
[2021-12-29] MEDS: ALBUTEROL SULFATE NEB 2.5 MG/0.5 ML INH 5 MG INHALATION (14:27)
[2021-12-29] MEDS: IPRATROPIUM BR 0.02% INH SOLN 0.5 MG/2.5 ML VIAL INHALATION (14:27)
[2021-12-29 14:47] VITALS: BP 154/86; PULSE 97; RESP 22; O2SAT 92
[2021-12-29 17:20] VITALS: BMI 47.6
--- NOTE | 2021-12-29 17:22 | ADMGEN ---
This patient, Ayanna Cash, was admitted to [facility] Surg Room 321-01 at 1340. Patient/family oriented to hospital policies and general routines including ID bracelet, bed and alarms, visiting hours, pain management, procedures, bathroom and other care routines, personal items, smoking policy, room service/diet, and visiting hours. Information on how to activate the Rapid Response Team has been discussed. Patient/Family are encouraged to report perceived risks to care and to ask questions if they do not understand what they are told or what they should do.
[2021-12-29] MEDS: methylPREDNISolone SOD SUCC 125 MG VIAL 60 MG IV PUSH (19:52)
[2021-12-29 20:00] VITALS: O2SAT 98
[2021-12-29 22:00] VITALS: BP 161/82; PULSE 95; RESP 20; TEMP 36.3; O2SAT 98
--- NOTE | 2021-12-29 22:45 | PCRCNOTE ---
Window of time for administration has passed, see next available administration.
[2021-12-30] VITALS (13 sets, daily range): BP systolic 145–151; BP diastolic 82–100; PULSE 76–98; RESP 14–20; TEMP 36–36.1; O2SAT 94–100
--- NOTE | 2021-12-30 | ECHO_ITS ---
Patient Info Name: Ayanna Cash Age: 71 years : 1950 Gender: Female Ht: 62 in Wt: 260 lbs BSA: 2.34 m2 HR: 91 bpm BP: 151 / 82 mmHg Heart Rhythm: Sinus Rhythm Technical Quality: Poor Exam Date: 12/30/2021 10:02 AM Exam Location: [facility] Card Pulmonary Patient Status: Inpatient Admit Date: 12/29/2021 Staff Ordering Physician: Meek Klein MD Relocation Associate: Renetta Hicks RDCS Attending Provider: Garret Gasca MD Referring Physician: Latoya SELLERS; Exam Type: CA echo dop color flow w con Study Info Complete two-dimensional, color flow and Doppler transthoracic echocardiogram is performed with contrast to opacify the left ventricle and to improve the deliniation of the left ventricle endocardial borders. Contrast/Agitated Saline Contrast/Ag. Saline: Definity Amount: 4.00 ml Reason for Poor Study: patient body habitus Summary 1. Borderline LV enlargement, mild LVH; normal LV systolic function, ejection fraction 55-60%. Diastolic dysfunction is present. Moderate left atrial enlargement. Normal mitral valve structure, no significant MR. Mild aortic valve sclerosis without hemodynamically significant stenosis by Doppler. Unable to assess RVSP due to inadequate TR jet. Sinus rhythm. Left Ventricle Left ventricular chamber dimension is normal. Left ventricular systolic function is normal, estimated at 55-60%. There is mildly increased left ventricular wall thickness. The left ventricular diastolic function is abnormal. Right Ventricle Right ventricular chamber dimension is normal. Right ventricular systolic function is normal. Left Atria Left atrial chamber dimension is moderately enlarged. Right Atria Right atrial chamber dimension is normal. Aortic Valve The aortic valve is normal. There is no aortic valve stenosis. Pulmonic Valve The pulmonic valve is normal. Mitral Valve There is mild mitral valve regurgitation. There is mild mitral valve calcification. Tricuspid Valve The tricuspid valve leaflets are normal. There is trace tricuspid valve regurgitation. Pericardium/Pleural The pericardium appears epicardial fat pad. Aorta The aortic root size at the sinus of Valsalva is normal. Left Ventricular Outflow Tract Name Value Normal LVOT 2D LVOT Diameter 2.24 cm LVOT Doppler LVOT Peak Gradient 2 mmHg LVOT Mean Gradient 1 mmHg LVOT VTI 14.69 cm LVOT VTI/AV VTI Ratio 0.64 LVOT Stroke Volume 58.01 ml LVOT CO 3.78 l/min LVOT CI 1.61 L/min/m2 Pulmonic Valve Name Value Normal PV Doppler PV Peak Gradient 6 mmHg Tricuspid Valve
[2021-12-30] MEDS: methylPREDNISolone SOD SUCC 125 MG VIAL 60 MG IV PUSH ×5 (00:11→23:36)
--- NOTE | 2021-12-30 01:13 | PM.IMHP ---
H&P: HPI History of Present Illness Date/Time: 12/30/21 01:13 Chief Complaint: SHORTNESS OF BREATH Narrative: This is a 71-year-old female with past medical history significant for congestive heart failure, interstitial lung disease, depression, atrial fibrillation, degenerative joint disease, DVT, PE, hypertension, morbid obesity, obstructive sleep apnea on CPAP at nighttime, chronic hypoxic respiratory failure on supplemental oxygen 2 L at rest and 4 L with activity, rheumatoid arthritis on DMARDs. Patient presents to the emergency room due to worsening shortness of breath for the last week or so, patient denies any fevers, any rigors, any chills she has a nonproductive cough, denies dizziness, syncope ,near syncope ,lightheadedness, no chest pain, denies any nausea, vomiting abdominal pain, diarrhea however patient states that she has been having night sweats. Preliminary workup was significant for an elevated brain natriuretic peptide of 11,000, a CT of the chest PE protocol was negative for acute pulmonary embolism significant for interstitial lung disease. Patient has been admitted for further evaluation management and treatment. Review of Systems Review of Systems: Worsening shortness of breath, dry cough persistent. Constitutional: Constitutional: Denies chills, Denies fever(s), Denies malaise and Reports night sweats Eyes: Eyes: Denies change in vision ENT: Denies dysphagia, Denies vertigo, Denies dizziness, Denies nasal congestion, Denies nasal discharge, Denies nasal obstruction and Denies odynophagia Cardiovascular: Cardiovascular: Denies pedal edema, Denies leg edema, Denies lightheadedness, Denies radiating jaw, neck or arm pain, Denies palpitations, Reports dyspnea on exertion and Denies paroxysmal nocturnal dyspnea Comments: Patient sleeps in recliner Respiratory: Respiratory: Denies change in phlegm color, Reports cough, Denies excessive phlegm production and Denies wheezing Gastrointestinal: Gastrointestinal: Denies abdominal pain, Denies dyspepsia, Denies heartburn, Denies diarrhea, Denies nausea and Denies vomiting Genitourinary: Genitourinary: Denies dysuria and Denies flank pain Musculoskeletal: Musculoskeletal: Denies arthralgias and Denies joint swelling Integumentary/Breasts: Skin/Breast: Denies rash Neurologic: Denies focal weakness Psychiatric: Psychiatric: Reports no additional psychiatric complaints and Reports as per HPI Endocrine: Endocrine: Reports no additional endocrine complaints and Reports as per HPI Hematologic/Lymphatic: Hematologic/Lymphatic: Reports no additional hematologic/lymphatic complaints and Reports as per HPI Allergic/Immunologic: Allergic/Immunologic: Reports no additional allergic/immunologic complaints and Reports as per HPI [facility] Past Medical History Medical History Acute on chronic respiratory failure with hypoxemia Afib Bruit CHF (congestive heart failure) Chronic diastolic CHF (congestive heart failure) Chronic respiratory failure Degenerative joint disease of right hip Diverticulosis DJD (degenerative joint disease), multiple sites DVT (deep venous thrombosis) 2004 Essential (primary) hypertension Hearing loss History of pulmonary embolus (PE) HLD (hyperlipidemia) Hypertension Hypomagnesemia Hypothyroid Impaired glucose tolerance Interstitial lung disease Morbid obesity Morbid obesity with BMI of 50.0-59.9, adult Nonspecific interstitial pneumonitis On home O2 STARR on CPAP STARR on CPAP Paroxysmal atrial fibrillation Personal history of DVT (deep vein thrombosis) Post menopausal syndrome Pre-diabetes Pulmonary embolism 2004 Pulmonary HTN Rheumatoid arthritis Screening for breast cancer Screening for colon cancer Screening for osteoporosis Shingles Sleep apnea Stress incontinence Trochanteric bursitis, right hip Unilateral primary osteoarthritis, right knee (05/15/17) UTI (urinary tract infection) UTI
--- NOTE | 2021-12-30 02:46 | PC.NURSE ---
Addendum entered by Shwetha Ortega RN 12/30/21 06:46: DR BOOTHE IN PT'S ROOM TO SPEAK WITH PT STATED SHE WILL TAKE CARE OF PT'S HOME MEDICATIONS. Original Note: 12/29/[address] PEREZ IN PT'S ROOM TO SPEAK WITH PT STATED SHE WILL TAKE CARE OF PT'S HOME MEDICATIONS
--- NOTE | 2021-12-30 05:02 | PCRCNOTE ---
RT asked pt if they would like to wear a hospital CPAP unit during the night. Pt declined stating she has a home unit that she will have someone bring to her.
[2021-12-30] MEDS: LEVOTHYROXINE SODIUM 112 MCG TABLET BY MOUTH (05:51)
[2021-12-30 07:10] LABS: INR 1.3; Prothrombin Time 16.4 Seconds (11.1-14.7)
[2021-12-30 07:11] LABS: Alanine Aminotransferase 13 U/L (4-35); Estimated CRCL calculation 39 ml/min; Estimated Glomerular Filt Rate 37
[2021-12-30] MEDS: PRAVASTATIN SODIUM 20 MG TABLET 80 MG PO (08:26)
[2021-12-30] MEDS: APIXABAN 5 MG TABLET PO ×2 (08:26→17:45)
[2021-12-30] MEDS: POTASSIUM CHLORIDE 10 MEQ TABLET.ER PO (08:26)
[2021-12-30] MEDS: CHOLECALCIFEROL 1,000 UNITS TABLET 1000 UNITS PO (08:26)
[2021-12-30] MEDS: HYDROXYCHLOROQUINE SULFATE 200 MG TABLET 400 MG PO (08:26)
[2021-12-30] MEDS: FOLIC ACID 1 MG TABLET PO (08:27)
[2021-12-30] MEDS: DULoxetine HCL 20 MG CAPSULE.DR PO (08:27)
[2021-12-30] MEDS: CYANOCOBALAMIN 1,000 MCG TABLET 1000 MCG PO (08:27)
[2021-12-30] MEDS: METOPROLOL SUCCINATE EXT REL 25 MG TABCR PO (08:27)
[2021-12-30] MEDS: FUROSEMIDE INJ 40 MG/4 ML VIAL IV PUSH ×2 (08:28→20:22)
[2021-12-30] MEDS: predniSONE 5 MG TABLET 15 MG PO (08:28)
[2021-12-30] MEDS: METOPROLOL SUCCINATE EXT REL 100 MG TABCR PO (08:29)
[2021-12-30] MEDS: IPRATROPIUM BR 0.02% INH SOLN 0.5 MG/2.5 ML VIAL INHALATION ×3 (08:45→21:35)
[2021-12-30] MEDS: ALBUTEROL SULFATE NEB 2.5 MG/0.5 ML INH 5 MG INHALATION ×3 (08:45→21:35)
[2021-12-30] MEDS: PERFLUTREN LIPID MICROSPHERES 1.5 ML VIAL DILUTED TO 10 ML TOTAL VOLUME IV PUSH (10:27)
--- NOTE | 2021-12-30 10:28 | IVDEFINITY ---
Prior to administration of IV Definity the patient was educated on the risks and benefits of the imaging enhancing agent including potential adverse side effects. The patient verbalized understanding. Allergies were verified. No exclusion criteria were identified and at least one of the following inclusion criteria were met: 1) physician request, 2) patient technically difficult to image (per the [place] [employer] of Echocardiography guidelines of two or more segments not discernable within the apical view), or 3) questionable left ventricular function. ?
--- NOTE | 2021-12-30 10:48 | PM.IMPN ---
Progress Note: A&P Assessment and Plan (1) Acute and chronic respiratory failure with hypoxia: Code(s): J96.21 - Acute and chronic respiratory failure with hypoxia Status: Acute Assessment and Plan: Patient on supplemental oxygen 2 L at rest and 4 L with activity (home level) Continuous pulse ox Continuous telemetry (2) Acute on chronic diastolic heart failure: Code(s): I50.33 - Acute on chronic diastolic (congestive) heart failure Status: Acute Assessment and Plan: Continue diuresis Daily intake and output Fluid restriction Continue to monitor (3) UTI (urinary tract infection): Qualifiers: Urinary tract infection type: site unspecified Hematuria presence: without hematuria Qualified Code(s): N39.0 - Urinary tract infection, site not specified Code(s): N39.0 - Urinary tract infection, site not specified Status: Acute Assessment and Plan: Empiric ceftriaxone Culture pending (4) Hyponatremia: Code(s): E87.1 - Hypo-osmolality and hyponatremia Status: Acute Assessment and Plan: Likely due to acute congestive heart failure Continue fluid restriction and diuresis Follow-up labs 12/30 sodium 129 (5) Paroxysmal atrial fibrillation: Code(s): I48.0 - Paroxysmal atrial fibrillation Status: Acute Assessment and Plan: Rate controlled Continue apixaban (6) Interstitial lung disease: Code(s): J84.9 - Interstitial pulmonary disease, unspecified Status: Acute Assessment and Plan: Continue bronchodilators (7) Pulmonary hypertension: Code(s): I27.20 - Pulmonary hypertension, unspecified Status: Acute Assessment and Plan: Patient is on supplemental oxygen (8) Rheumatoid arthritis: Qualifiers: Rheumatoid arthritis location: unspecified site Rheumatoid factor presence: unspecified presence Qualified Code(s): M06.9 - Rheumatoid arthritis, unspecified Code(s): M06.9 - Rheumatoid arthritis, unspecified Status: Chronic Assessment and Plan: On DMARDs Follow-up in outpatient setting Unchanged (9) Morbid obesity: Code(s): E66.01 - Morbid (severe) obesity due to excess calories Status: Acute Assessment and Plan: 1800 calorie restricted diet (10) STARR on CPAP: Code(s): G47.33 - Obstructive sleep apnea (adult) (pediatric); Z99.89 - Dependence on other enabling machines and devices Status: Acute Assessment and Plan: Continue CPAP at nighttime Subjective Date/time seen: 12/30/21 10:48 Interval history: ADMITTED FOR ACUTE DIASTOLIC CONGESTIVE HEART FAILURE SUPERIMPOSED ON CHRONIC INTERSTITIAL LUNG DISEASE. / visit. Less short of breath. No chest pain. Less edema. Good appetite. Denied nausea vomiting, abdominal pain, abnormal bleeding, symptoms. Review of Systems Review of Systems: All systems reviewed & are unremarkable except as noted in HPI and below Exam Narrative: HEENT: PERRL, sclerae nonicteric, pharyngeal mucosa pink and intact NECK: No JVD CHEST: Mild neck tachypneic. Diffuse fine crackles. HEART: NL S1/S2, regular, no murmur ABDOMEN: BS+, soft, nontender, no mass, no bruits EXTREMITIES: No cyanosis, edema, or clubbing NEUROLOGIC: CN intact and symmetric to inspection. MUSCULOSKELETAL: Tone and strength symmetric. PSYCH: Alert. Oriented to person, place, and time. Objective Data Vital Signs Vital Signs: Vital Signs - 24 hr 12/29/21 11:19 12/29/21 11:24 12/29/21 12:04 Temperature 97.9 F Pulse Rate 110 H 126 H Respiratory Rate 24 H Blood Pressure 147/88 H Pulse Oximetry 100 100 12/29/21 14:47 12/29/21 20:00 12/29/21 22:00 Temperature 97.3 F L Pulse Rate 97 95 Respiratory Rate 22 H 20 Blood Pressure 154/86 H 161/82 H Pulse Oximetry 92 98 98 12/30/21 00:00 12/30/21 04:00 12/30/21 06:00 Temperature 97 F L Pulse Rate 90 82 78 Respiratory Rate 20 Blood Pre
[2021-12-30 11:00] LABS: Immature Reticulocyte Fraction 25.3 % (3.0-15.9); Reticulocyte Hemoglobin Conten 24.8 pg (28.2-35.7); Reticulocyte Percent 1.86 % (0.7-4.3); Reticulocytes Absolute 0.06 B/L (32.2-175.7)
[2021-12-30 11:11] LABS: Albumin Level 3.8 g/dL (3.5-5.1); Anion Gap 8 mmol/L (8-16); Blood Urea Nitrogen 31 mg/dL (7-17); Calcium 9.1 mg/dL (8.4-10.2); Carbon Dioxide 30 mmol/L (22-30); Chloride 97 mmol/L (98-107); Estimated CRCL calculation 39 ml/min; Estimated Glomerular Filt Rate 37; Glucose 194 mg/dL (65-110); Phosphorus 3.8 mg/dL (2.5-4.5); Potassium 3.1 mmol/L (3.4-5.0); Sodium 135 mmol/L (137-145)
[2021-12-30 11:38] LABS: Iron 35 ug/dL (37-170)
[2021-12-30 11:48] LABS: Percent Iron Saturation 14 % (20-50)
[2021-12-30 12:10] LABS: Thyroid Stimulating Hormone Reflex 0.383 uIU/mL (0.465-4.68)
[2021-12-30 12:18] LABS: Folic Acid > 20.0 ng/mL (2.76->20)
[2021-12-30] MEDS: CHOLESTYRAMINE (W/ SUGAR) 4 GM POWD.PACK PO (12:47)
[2021-12-30 14:00] LABS: Free T4 Free Thyroxine Reflex 1.74 ng/dL (0.78-2.19)
[2021-12-30 14:44] LABS: Total Triiodothyronine (T3) 0.65 NG/ML (0.97-1.69)
[2021-12-30] MEDS: ACETAMINOPHEN 500 MG TABLET 1000 MG PO (20:21)
[2021-12-31] VITALS (19 sets, daily range): BP systolic 110–154; BP diastolic 73–91; PULSE 71–92; RESP 17–20; TEMP 36.1–36.8; O2SAT 92–100
[2021-12-31] MEDS: IPRATROPIUM BR 0.02% INH SOLN 0.5 MG/2.5 ML VIAL INHALATION ×4 (02:38→22:05)
[2021-12-31] MEDS: ALBUTEROL SULFATE NEB 2.5 MG/0.5 ML INH 5 MG INHALATION ×4 (02:38→22:04)
[2021-12-31] MEDS: LEVOTHYROXINE SODIUM 112 MCG TABLET BY MOUTH (06:04)
[2021-12-31] MEDS: methylPREDNISolone SOD SUCC 125 MG VIAL 60 MG IV PUSH ×4 (06:04→23:14)
[2021-12-31] MEDS: ACETAMINOPHEN 500 MG TABLET 1000 MG PO ×3 (06:06→23:19)
[2021-12-31 06:57] LABS: INR 1.5; Prothrombin Time 17.5 Seconds (11.1-14.7)
[2021-12-31 07:22] LABS: Alanine Aminotransferase 13 U/L (4-35); Albumin Level 3.6 g/dL (3.5-5.1); Anion Gap 7 mmol/L (8-16); Blood Urea Nitrogen 42 mg/dL (7-17); Calcium 9.2 mg/dL (8.4-10.2); Carbon Dioxide 29 mmol/L (22-30); Chloride 99 mmol/L (98-107); Estimated CRCL calculation 42 ml/min; Estimated Glomerular Filt Rate 40; Glucose 152 mg/dL (65-110); Phosphorus 3.8 mg/dL (2.5-4.5); Potassium 3.1 mmol/L (3.4-5.0); Sodium 135 mmol/L (137-145)
[2021-12-31] MEDS: POTASSIUM CHLORIDE 20 MEQ TABLET.ER 40 MEQ PO ×2 (08:44→17:13)
[2021-12-31] MEDS: FOLIC ACID 1 MG TABLET PO (08:44)
[2021-12-31] MEDS: CHOLECALCIFEROL 1,000 UNITS TABLET 1000 UNITS PO (08:44)
[2021-12-31] MEDS: PRAVASTATIN SODIUM 20 MG TABLET 80 MG PO (08:44)
[2021-12-31] MEDS: METOPROLOL SUCCINATE EXT REL 100 MG TABCR PO (08:44)
[2021-12-31] MEDS: predniSONE 5 MG TABLET 15 MG PO (08:45)
[2021-12-31] MEDS: METOPROLOL SUCCINATE EXT REL 25 MG TABCR PO (08:45)
[2021-12-31] MEDS: APIXABAN 5 MG TABLET PO ×2 (08:45→17:14)
[2021-12-31] MEDS: DULoxetine HCL 20 MG CAPSULE.DR PO (08:45)
[2021-12-31] MEDS: FUROSEMIDE INJ 40 MG/4 ML VIAL IV PUSH ×2 (08:45→20:13)
[2021-12-31] MEDS: HYDROXYCHLOROQUINE SULFATE 200 MG TABLET 400 MG PO (08:48)
--- NOTE | 2021-12-31 11:40 | PM.IMPN ---
Progress Note: A&P Assessment and Plan (1) Acute and chronic respiratory failure with hypoxia: Code(s): J96.21 - Acute and chronic respiratory failure with hypoxia Status: Acute Assessment and Plan: Patient on supplemental oxygen 2 L at rest and 4 L with activity (home level) Continuous pulse ox Continuous telemetry (2) Acute on chronic diastolic heart failure: Code(s): I50.33 - Acute on chronic diastolic (congestive) heart failure Status: Acute Assessment and Plan: Continue diuresis Daily intake and output Fluid restriction at 1500 ml/day (3) UTI (urinary tract infection): Qualifiers: Urinary tract infection type: site unspecified Hematuria presence: without hematuria Qualified Code(s): N39.0 - Urinary tract infection, site not specified Code(s): N39.0 - Urinary tract infection, site not specified Status: Acute Assessment and Plan: Klebsiella pneumonia sensitive to ceftriaxone Continue ceftriaxone (4) Hyponatremia: Code(s): E87.1 - Hypo-osmolality and hyponatremia Status: Acute Assessment and Plan: Likely due to acute congestive heart failure Continue fluid restriction and diuresis Follow-up labs 12/30 sodium 129, 2/6 135 (5) Paroxysmal atrial fibrillation: Code(s): I48.0 - Paroxysmal atrial fibrillation Status: Acute Assessment and Plan: Rate controlled Continue apixaban (6) Interstitial lung disease: Code(s): J84.9 - Interstitial pulmonary disease, unspecified Status: Acute Assessment and Plan: Continue bronchodilators (7) Pulmonary hypertension: Code(s): I27.20 - Pulmonary hypertension, unspecified Status: Acute Assessment and Plan: Patient is on supplemental oxygen (8) Rheumatoid arthritis: Qualifiers: Rheumatoid arthritis location: unspecified site Rheumatoid factor presence: unspecified presence Qualified Code(s): M06.9 - Rheumatoid arthritis, unspecified Code(s): M06.9 - Rheumatoid arthritis, unspecified Status: Chronic Assessment and Plan: On DMARDs Follow-up in outpatient setting Unchanged (9) Morbid obesity: Code(s): E66.01 - Morbid (severe) obesity due to excess calories Status: Acute Assessment and Plan: 1800 calorie restricted diet (10) STARR on CPAP: Code(s): G47.33 - Obstructive sleep apnea (adult) (pediatric); Z99.89 - Dependence on other enabling machines and devices Status: Acute Assessment and Plan: Continue CPAP at nighttime Subjective Date/time seen: 12/31/21 11:40 Interval history: ADMITTED FOR ACUTE DIASTOLIC CONGESTIVE HEART FAILURE SUPERIMPOSED ON CHRONIC INTERSTITIAL LUNG DISEASE. 12/31 visit. Less short of breath. No chest pain. Less edema. Good appetite. Does have facial flushing. Has noticed that in the past as well. Seems to be getting worse. Denied nausea vomiting, abdominal pain, abnormal bleeding, symptoms. Baseline functional status is walking with a walker at her home. Uses wheelchair outdoors for longer distances. Review of Systems Review of Systems: All systems reviewed & are unremarkable except as noted in HPI and below Exam Narrative: SKIN: Erythema and telangiectasias over nose cheeks and chin HEENT: PERRL, sclerae nonicteric, pharyngeal mucosa pink and intact NECK: No JVD CHEST: Mild neck tachypneic. Diffuse fine crackles, more prominent in lower lobes. HEART: NL S1/S2, regular, no murmur ABDOMEN: BS+, soft, nontender, no mass, no bruits EXTREMITIES: No cyanosis, edema, or clubbing NEUROLOGIC: CN intact and symmetric to inspection. MUSCULOSKELETAL: Tone and strength symmetric. PSYCH: Alert. Oriented to person, place, and time. Objective Data Vital Signs Vital Signs: Vital Signs - 24 hr 12/30/21 13:43 12/30/21 13:52 12/30/21 14:00 Temperature 97.0 F L Pulse Rate 77 78 98 Respiratory Rate 18 18 20 Blood Pressure
[2022-01-01] VITALS (14 sets, daily range): BP systolic 136–148; BP diastolic 81–105; PULSE 56–92; RESP 16–20; TEMP 36.2–36.6; O2SAT 94–100
[2022-01-01] MEDS: ALBUTEROL SULFATE NEB 2.5 MG/0.5 ML INH 5 MG INHALATION ×4 (03:15→20:53)
[2022-01-01] MEDS: IPRATROPIUM BR 0.02% INH SOLN 0.5 MG/2.5 ML VIAL INHALATION ×4 (03:15→20:53)
[2022-01-01] MEDS: LEVOTHYROXINE SODIUM 112 MCG TABLET BY MOUTH (05:22)
[2022-01-01] MEDS: methylPREDNISolone SOD SUCC 125 MG VIAL 60 MG IV PUSH ×2 (05:22→16:56)
[2022-01-01 07:49] LABS: Alanine Aminotransferase 18 U/L (4-35); Albumin Level 3.7 g/dL (3.5-5.1); Anion Gap 4 mmol/L (8-16); Blood Urea Nitrogen 52 mg/dL (7-17); Calcium 9.4 mg/dL (8.4-10.2); Carbon Dioxide 31 mmol/L (22-30); Chloride 100 mmol/L (98-107); Estimated CRCL calculation 42 ml/min; Estimated Glomerular Filt Rate 40; Glucose 150 mg/dL (65-110); Phosphorus 3.6 mg/dL (2.5-4.5); Potassium 4.6 mmol/L (3.4-5.0); Sodium 135 mmol/L (137-145)
[2022-01-01] MEDS: HYDROXYCHLOROQUINE SULFATE 200 MG TABLET 400 MG PO (07:55)
[2022-01-01] MEDS: APIXABAN 5 MG TABLET PO ×2 (07:55→16:55)
[2022-01-01] MEDS: POTASSIUM CHLORIDE 20 MEQ TABLET.ER 40 MEQ PO (07:55)
[2022-01-01] MEDS: FOLIC ACID 1 MG TABLET PO (07:56)
[2022-01-01] MEDS: METOPROLOL SUCCINATE EXT REL 25 MG TABCR PO (07:56)
[2022-01-01] MEDS: CHOLECALCIFEROL 1,000 UNITS TABLET 1000 UNITS PO (07:56)
[2022-01-01] MEDS: DULoxetine HCL 20 MG CAPSULE.DR PO (07:56)
[2022-01-01] MEDS: FUROSEMIDE INJ 40 MG/4 ML VIAL IV PUSH ×2 (07:56→20:08)
[2022-01-01] MEDS: CYANOCOBALAMIN 1,000 MCG TABLET 1000 MCG PO (07:56)
[2022-01-01] MEDS: PRAVASTATIN SODIUM 20 MG TABLET 80 MG PO (07:57)
[2022-01-01] MEDS: METOPROLOL SUCCINATE EXT REL 100 MG TABCR PO (07:57)
[2022-01-01] MEDS: ACETAMINOPHEN 500 MG TABLET 1000 MG PO (08:11)
[2022-01-01 08:31] LABS: INR 1.5; Prothrombin Time 17.5 Seconds (11.1-14.7)
--- NOTE | 2022-01-01 11:55 | P.PNIM_ITS ---
Progress Note: A&P Assessment and Plan (1) Acute and chronic respiratory failure with hypoxia: Code(s): J96.21 - Acute and chronic respiratory failure with hypoxia Status: Acute Assessment and Plan: Patient on supplemental oxygen 2 L at rest and 4 L with activity at baseline * Chronic respiratory failure secondary to interstitial lung disease, pulmonary hypertension, STARR * Acutely worsened secondary to CHF exacerbation * She is now maintaining adequate O2 sats on room air at 94% * Monitor O2 sats * Continue bronchodilators. Continue CPAP at night (2) Acute on chronic diastolic heart failure: Code(s): I50.33 - Acute on chronic diastolic (congestive) heart failure Status: Acute Assessment and Plan: Presented with increased shortness of breath, BNP 33113 * Continue diuresis. Lasix 40 mg IV b.i.d. * She has demonstrated some improvement with diuresis has had good urine output * Will transition to Lasix 40 mg p.o. b.i.d. for tomorrow * Continue to monitor intake and output, weigh daily * Heart healthy diet (3) UTI (urinary tract infection): Qualifiers: Hematuria presence: without hematuria Urinary tract infection type: site unspecified Qualified Code(s): N39.0 - Urinary tract infection, site not specified Code(s): N39.0 - Urinary tract infection, site not specified Status: Acute Assessment and Plan: Urine culture with growth of >100k Klebsiella pneumonia * Continue IV ceftriaxone based on susceptibilities (4) Hyponatremia: Code(s): E87.1 - Hypo-osmolality and hyponatremia Status: Acute Assessment and Plan: Sodium was 129 presentation * Likely due to hypervolemia * Improved to 135 today with diuresis (5) Paroxysmal atrial fibrillation: Code(s): I48.0 - Paroxysmal atrial fibrillation Status: Acute Assessment and Plan: Rate controlled * Continue apixaban * Continue metoprolol succinate 100 mg daily (6) Rheumatoid arthritis: Qualifiers: Rheumatoid arthritis location: unspecified site Rheumatoid factor presence: unspecified presence Qualified Code(s): M06.9 - Rheumatoid arthritis, unspecified Code(s): M06.9 - Rheumatoid arthritis, unspecified Status: Chronic Assessment and Plan: No acute issues * Continue hydroxychloroquine * Low-dose daily prednisone on hold while on IV steroids (7) COPD (chronic obstructive pulmonary disease): Code(s): J44.9 - Chronic obstructive pulmonary disease, unspecified Status: Acute Assessment and Plan: No active wheezing at this time * Taper IV steroids. Change to Solu-Medrol 60 mg BID * Transition to PO prednisone 40 mg x5 days tomorrow. * Continue bronchodilators (8) Hypokalemia: Code(s): E87.6 - Hypokalemia Status: Acute Assessment and Plan: Likely due to diuresis * Potassium stable at 4.6 today * Change scheduled potassium to 20 mEq PO daily (9) Erythema of neck: Code(s): L53.9 - Erythematous condition, unspecified Status: Acute Assessment and Plan: Patient has erythema on the anterior neck that is not warm or tender to palpation, no edema * Etiology for this is unclear. Does not seem to be consistent with infection/cellulitis, no signs/symptoms to suggest acute infection. Possibly due to medication reaction, though no diffuse rash or airway compromise. May be contact dermatitis due to new lotion product vs rubbing at the neck * At this time will c
--- NOTE | 2022-01-01 11:55 | PM.IMPN ---
Progress Note: A&P Assessment and Plan (1) Acute and chronic respiratory failure with hypoxia: Code(s): J96.21 - Acute and chronic respiratory failure with hypoxia Status: Acute Assessment and Plan: Patient on supplemental oxygen 2 L at rest and 4 L with activity at baseline Chronic respiratory failure secondary to interstitial lung disease, pulmonary hypertension, STARR Acutely worsened secondary to CHF exacerbation She is now maintaining adequate O2 sats on room air at 94% Monitor O2 sats Continue bronchodilators. Continue CPAP at night (2) Acute on chronic diastolic heart failure: Code(s): I50.33 - Acute on chronic diastolic (congestive) heart failure Status: Acute Assessment and Plan: Presented with increased shortness of breath, BNP 32448 Continue diuresis. Lasix 40 mg IV b.i.d. She has demonstrated some improvement with diuresis has had good urine output Will transition to Lasix 40 mg p.o. b.i.d. for tomorrow Continue to monitor intake and output, weigh daily Heart healthy diet (3) UTI (urinary tract infection): Qualifiers: Hematuria presence: without hematuria Urinary tract infection type: site unspecified Qualified Code(s): N39.0 - Urinary tract infection, site not specified Code(s): N39.0 - Urinary tract infection, site not specified Status: Acute Assessment and Plan: Urine culture with growth of >100k Klebsiella pneumonia Continue IV ceftriaxone based on susceptibilities (4) Hyponatremia: Code(s): E87.1 - Hypo-osmolality and hyponatremia Status: Acute Assessment and Plan: Sodium was 129 presentation Likely due to hypervolemia Improved to 135 today with diuresis (5) Paroxysmal atrial fibrillation: Code(s): I48.0 - Paroxysmal atrial fibrillation Status: Acute Assessment and Plan: Rate controlled Continue apixaban Continue metoprolol succinate 100 mg daily (6) Rheumatoid arthritis: Qualifiers: Rheumatoid arthritis location: unspecified site Rheumatoid factor presence: unspecified presence Qualified Code(s): M06.9 - Rheumatoid arthritis, unspecified Code(s): M06.9 - Rheumatoid arthritis, unspecified Status: Chronic Assessment and Plan: No acute issues Continue hydroxychloroquine Low-dose daily prednisone on hold while on IV steroids (7) COPD (chronic obstructive pulmonary disease): Code(s): J44.9 - Chronic obstructive pulmonary disease, unspecified Status: Acute Assessment and Plan: No active wheezing at this time Taper IV steroids. Change to Solu-Medrol 60 mg BID Transition to PO prednisone 40 mg x5 days tomorrow. Continue bronchodilators (8) Hypokalemia: Code(s): E87.6 - Hypokalemia Status: Acute Assessment and Plan: Likely due to diuresis Potassium stable at 4.6 today Change scheduled potassium to 20 mEq PO daily (9) Erythema of neck: Code(s): L53.9 - Erythematous condition, unspecified Status: Acute Assessment and Plan: Patient has erythema on the anterior neck that is not warm or tender to palpation, no edema Etiology for this is unclear. Does not seem to be consistent with infection/cellulitis, no signs/symptoms to suggest acute infection. Possibly due to medication reaction, though no diffuse rash or airway compromise. May be contact dermatitis due to new lotion product vs rubbing at the neck At this time will continue to monitor. Patient asymptomatic with this. She remains on IV steroids for COPD. Add pepcid and prn benadryl Subjective Date/time seen: 01/01/22 11:55 Interval history: Date of service: 01/01/2022 Ayanna Cash is a 71-year-old female with a history of rheumatoid arthritis, pulmonary hypertension, VTE chronic anticoagulation, chronic respiratory failure on home oxygen, CHF hypertension multiple other comorbidities is seen in fo
[2022-01-01] MEDS: diphenhydrAMINE HCl CAP 25 MG CAPSULE PO ×2 (11:59→20:08)
[2022-01-01] MEDS: FAMOTIDINE 20 MG TABLET PO (20:08)
[2022-01-02] VITALS (15 sets, daily range): BP systolic 125–147; BP diastolic 87–107; PULSE 74–104; RESP 16–20; TEMP 36.2–36.8; O2SAT 96–100
[2022-01-02] MEDS: ALBUTEROL SULFATE NEB 2.5 MG/0.5 ML INH 5 MG INHALATION ×4 (03:23→20:38)
[2022-01-02] MEDS: IPRATROPIUM BR 0.02% INH SOLN 0.5 MG/2.5 ML VIAL INHALATION ×4 (03:23→20:38)
[2022-01-02] MEDS: LEVOTHYROXINE SODIUM 112 MCG TABLET BY MOUTH (05:15)
[2022-01-02] MEDS: ACETAMINOPHEN 500 MG TABLET 1000 MG PO ×2 (05:20→23:34)
[2022-01-02] MEDS: diphenhydrAMINE HCl CAP 25 MG CAPSULE PO (05:21)
[2022-01-02 07:35] LABS: Hematocrit 31.9 % (37.0-47.0); Mean Corpuscular HGB Conc 31.3 g/dl (32-36); Mean Corpuscular Hemoglobin 30.9 pg (26-34); Mean Corpuscular Volume 98.5 fl (80-100); Mean Platelet Volume 9.6 fl (7.4-10.4); Platelet Count Result 265 k/mm3 (150-375); Red Blood Count 3.24 M/mm3 (4.2-5.4); Red Cell Distribution Width 13.9 % (11.5-14.5); White Blood Count 11.7 K/mm3 (4.5-10.0)
[2022-01-02 07:47] LABS: Alanine Aminotransferase 19 U/L (4-35); Albumin Level 3.5 g/dL (3.5-5.1); Anion Gap 8 mmol/L (8-16); Blood Urea Nitrogen 62 mg/dL (7-17); Calcium 8.9 mg/dL (8.4-10.2); Carbon Dioxide 31 mmol/L (22-30); Chloride 96 mmol/L (98-107); Estimated CRCL calculation 35 ml/min; Estimated Glomerular Filt Rate 32; Glucose 109 mg/dL (65-110); Phosphorus 3.4 mg/dL (2.5-4.5); Potassium 3.8 mmol/L (3.4-5.0); Sodium 135 mmol/L (137-145)
[2022-01-02 07:48] LABS: INR 1.4; Prothrombin Time 16.9 Seconds (11.1-14.7)
[2022-01-02] MEDS: HYDROXYCHLOROQUINE SULFATE 200 MG TABLET 400 MG PO (09:00)
[2022-01-02] MEDS: FUROSEMIDE 40 MG TABLET PO ×2 (09:00→17:21)
[2022-01-02] MEDS: predniSONE 20 MG TABLET 40 MG PO (09:01)
[2022-01-02] MEDS: CHOLECALCIFEROL 1,000 UNITS TABLET 1000 UNITS PO (09:03)
[2022-01-02] MEDS: FAMOTIDINE 20 MG TABLET PO ×2 (09:03→20:17)
[2022-01-02] MEDS: PRAVASTATIN SODIUM 20 MG TABLET 80 MG PO (09:03)
[2022-01-02] MEDS: APIXABAN 5 MG TABLET PO ×2 (09:05→17:21)
[2022-01-02] MEDS: METOPROLOL SUCCINATE EXT REL 25 MG TABCR PO (09:05)
[2022-01-02] MEDS: FOLIC ACID 1 MG TABLET PO (09:06)
[2022-01-02] MEDS: DULoxetine HCL 20 MG CAPSULE.DR PO (09:06)
[2022-01-02] MEDS: POTASSIUM CHLORIDE 20 MEQ TABLET.ER PO (09:06)
[2022-01-02] MEDS: METOPROLOL SUCCINATE EXT REL 100 MG TABCR PO (09:07)
--- NOTE | 2022-01-02 09:20 | P.PNIM_ITS ---
Progress Note: A&P Assessment and Plan (1) Acute and chronic respiratory failure with hypoxia: Code(s): J96.21 - Acute and chronic respiratory failure with hypoxia Status: Acute Assessment and Plan: Patient on supplemental oxygen 2 L at rest and 4 L with activity at baseline * Chronic respiratory failure secondary to interstitial lung disease, pulmonary hypertension, STARR * Acutely worsened secondary to CHF exacerbation * She is now maintaining adequate O2 sats on room air at 94% * Monitor O2 sats * Continue bronchodilators. Continue CPAP at night (2) Acute on chronic diastolic heart failure: Code(s): I50.33 - Acute on chronic diastolic (congestive) heart failure Status: Acute Assessment and Plan: Presented with increased shortness of breath, BNP 81919 * Continue diuresis. Lasix 40 mg IV b.i.d. * She has demonstrated some improvement with diuresis has had good urine output * Will transition to Lasix 40 mg p.o. b.i.d. for tomorrow * Continue to monitor intake and output, weigh daily * Heart healthy diet * 10/03/2021 ECHO: Mild LVH, mild LV enlargement, normal LV systolic function, EF 55-60%.Diastolic dysfunction is present. Mild left atrial enlargement. Trivial TR, RVSP 14 mmHg. Sinus rhythm. left ventricular diastolic function is abnormal. no pulmonary HTN. (3) UTI (urinary tract infection): Qualifiers: Hematuria presence: without hematuria Urinary tract infection type: site unspecified Qualified Code(s): N39.0 - Urinary tract infection, site not specified Code(s): N39.0 - Urinary tract infection, site not specified Status: Acute Assessment and Plan: Urine culture with growth of >100k Klebsiella pneumonia * Continue IV ceftriaxone based on susceptibilities (4) Hyponatremia: Code(s): E87.1 - Hypo-osmolality and hyponatremia Status: Acute Assessment and Plan: Sodium was 129 presentation * Likely due to hypervolemia * Improved to 135 today with diuresis (5) Paroxysmal atrial fibrillation: Code(s): I48.0 - Paroxysmal atrial fibrillation Status: Acute Assessment and Plan: Rate controlled * Continue apixaban * Continue metoprolol succinate 100 mg daily (6) Rheumatoid arthritis: Qualifiers: Rheumatoid arthritis location: unspecified site Rheumatoid factor presence: unspecified presence Qualified Code(s): M06.9 - Rheumatoid arthritis, unspecified Code(s): M06.9 - Rheumatoid arthritis, unspecified Status: Chronic Assessment and Plan: No acute issues * Continue hydroxychloroquine * Low-dose daily prednisone on hold while on IV steroids (7) COPD (chronic obstructive pulmonary disease): Code(s): J44.9 - Chronic obstructive pulmonary disease, unspecified Status: Acute Assessment and Plan: No active wheezing at this time * Taper IV steroids. Change to Solu-Medrol 60 mg BID * Transition to PO prednisone 40 mg x5 days tomorrow. * Continue bronchodilators (8) Hypokalemia: Code(s): E87.6 - Hypokalemia Status: Acute Assessment and Plan: Likely due to diuresis * Potassium stable at 4.6 today * Change scheduled potassium to 20 mEq PO daily (9) Erythema of neck: Code(s): L53.9 - Erythematous condition, unspecified Status: Acute Assessment and Plan: Patient has erythema on the anterior neck that is not warm or tender to palpation, no edema * Etiology for this is unclear. Does not seem to be consistent wit
--- NOTE | 2022-01-02 09:20 | PM.IMPN ---
Progress Note: A&P Assessment and Plan (1) Acute and chronic respiratory failure with hypoxia: Code(s): J96.21 - Acute and chronic respiratory failure with hypoxia Status: Acute Assessment and Plan: Patient on supplemental oxygen 2 L at rest and 4 L with activity at baseline Chronic respiratory failure secondary to interstitial lung disease, pulmonary hypertension, STARR Acutely worsened secondary to CHF exacerbation She is now maintaining adequate O2 sats on room air at 94% Monitor O2 sats Continue bronchodilators. Continue CPAP at night (2) Acute on chronic diastolic heart failure: Code(s): I50.33 - Acute on chronic diastolic (congestive) heart failure Status: Acute Assessment and Plan: Presented with increased shortness of breath, BNP 49284 Continue diuresis. Lasix 40 mg IV b.i.d. She has demonstrated some improvement with diuresis has had good urine output Will transition to Lasix 40 mg p.o. b.i.d. for tomorrow Continue to monitor intake and output, weigh daily Heart healthy diet 10/03/2021 ECHO: Mild LVH, mild LV enlargement, normal LV systolic function, EF 55-60%.Diastolic dysfunction is present. Mild left atrial enlargement. Trivial TR, RVSP 14 mmHg. Sinus rhythm. left ventricular diastolic function is abnormal. no pulmonary HTN. (3) UTI (urinary tract infection): Qualifiers: Hematuria presence: without hematuria Urinary tract infection type: site unspecified Qualified Code(s): N39.0 - Urinary tract infection, site not specified Code(s): N39.0 - Urinary tract infection, site not specified Status: Acute Assessment and Plan: Urine culture with growth of >100k Klebsiella pneumonia Continue IV ceftriaxone based on susceptibilities (4) Hyponatremia: Code(s): E87.1 - Hypo-osmolality and hyponatremia Status: Acute Assessment and Plan: Sodium was 129 presentation Likely due to hypervolemia Improved to 135 today with diuresis (5) Paroxysmal atrial fibrillation: Code(s): I48.0 - Paroxysmal atrial fibrillation Status: Acute Assessment and Plan: Rate controlled Continue apixaban Continue metoprolol succinate 100 mg daily (6) Rheumatoid arthritis: Qualifiers: Rheumatoid arthritis location: unspecified site Rheumatoid factor presence: unspecified presence Qualified Code(s): M06.9 - Rheumatoid arthritis, unspecified Code(s): M06.9 - Rheumatoid arthritis, unspecified Status: Chronic Assessment and Plan: No acute issues Continue hydroxychloroquine Low-dose daily prednisone on hold while on IV steroids (7) COPD (chronic obstructive pulmonary disease): Code(s): J44.9 - Chronic obstructive pulmonary disease, unspecified Status: Acute Assessment and Plan: No active wheezing at this time Taper IV steroids. Change to Solu-Medrol 60 mg BID Transition to PO prednisone 40 mg x5 days tomorrow. Continue bronchodilators (8) Hypokalemia: Code(s): E87.6 - Hypokalemia Status: Acute Assessment and Plan: Likely due to diuresis Potassium stable at 4.6 today Change scheduled potassium to 20 mEq PO daily (9) Erythema of neck: Code(s): L53.9 - Erythematous condition, unspecified Status: Acute Assessment and Plan: Patient has erythema on the anterior neck that is not warm or tender to palpation, no edema Etiology for this is unclear. Does not seem to be consistent with infection/cellulitis, no signs/symptoms to suggest acute infection. Possibly due to medication reaction, though no diffuse rash or airway compromise. May be contact dermatitis due to new lotion product vs rubbing at the neck At this time will continue to monitor. Patient asymptomatic with this. She remains on IV steroids for COPD. Add pepcid and prn benadryl Subjective Date/time seen: 01/02/22 09:21 Interval history: Date of
[2022-01-02 09:50] LABS: Magnesium 1.7 mg/dL (1.6-2.3); Phosphorus 3.3 mg/dL (2.5-4.5)
[2022-01-02 09:59] LABS: NT Pro B Type Natriuretic Pept 7160 pg/mL (5-100)
[2022-01-02 10:25] LABS: Thyroid Stimulating Hormone Reflex 0.125 uIU/mL (0.465-4.68)
[2022-01-02 13:03] LABS: Total Triiodothyronine (T3) 0.58 NG/ML (0.97-1.69)
[2022-01-02] MEDS: MAGNESIUM SULF 2 GM/WATER 50ML 2 GM/50 ML BAG IVPB (18:00)
[2022-01-03] VITALS (13 sets, daily range): BP systolic 127–145; BP diastolic 75–88; PULSE 69–85; RESP 14–20; TEMP 36.1–36.3; O2SAT 98–100
[2022-01-03] MEDS: ALBUTEROL SULFATE NEB 2.5 MG/0.5 ML INH 5 MG INHALATION ×4 (01:59→20:21)
[2022-01-03] MEDS: IPRATROPIUM BR 0.02% INH SOLN 0.5 MG/2.5 ML VIAL INHALATION ×4 (01:59→20:21)
[2022-01-03] MEDS: LEVOTHYROXINE SODIUM 112 MCG TABLET BY MOUTH (06:33)
[2022-01-03 07:20] LABS: Basophils Percent Auto 0.2 % (0.2-1.2); Eosinophils Percent Auto 0.1 % (0-4.4); Hematocrit 34.4 % (37.0-47.0); Hemoglobin 10.7 g/dL (12.0-15.0); Immature Granulocyte Percent A 1.5 % (0-0.5); Lymphocytes Absolute Auto 1.96 K/mm3 (0.9-3.2); Lymphocytes Percent Auto 14.3 % (18.3-44.2); Mean Corpuscular HGB Conc 31.1 g/dl (32-36); Mean Corpuscular Hemoglobin 30.8 pg (26-34); Mean Corpuscular Volume 99.1 fl (80-100); Mean Platelet Volume 9.9 fl (7.4-10.4); Neutrophils Absolute Auto 10.5 K/mm3 (1.3-6.7); Neutrophils Percent Auto 76.9 % (45.5-73.1); Platelet Count Result 303 k/mm3 (150-375); Red Blood Count 3.47 M/mm3 (4.2-5.4); Red Cell Distribution Width 14.2 % (11.5-14.5); White Blood Count 13.7 K/mm3 (4.5-10.0)
[2022-01-03 07:47] LABS: Alanine Aminotransferase 20 U/L (4-35); Albumin Level 3.7 g/dL (3.5-5.1); Alkaline Phosphatase 24 U/L (38-126); Anion Gap 8 mmol/L (8-16); Aspartate Amino Transferase 29 U/L (14-36); Bilirubin,Total 0.6 mg/dL (0.2-1.3); Blood Urea Nitrogen 54 mg/dL (7-17); Calcium 8.9 mg/dL (8.4-10.2); Carbon Dioxide 32 mmol/L (22-30); Chloride 97 mmol/L (98-107); Estimated CRCL calculation 44 ml/min; Estimated Glomerular Filt Rate 44; Glucose 96 mg/dL (65-110); Phosphorus 3.2 mg/dL (2.5-4.5); Potassium 4.5 mmol/L (3.4-5.0); Sodium 137 mmol/L (137-145)
--- NOTE | 2022-01-03 08:55 | P.PNIM_ITS ---
Progress Note: A&P Assessment and Plan (1) Acute and chronic respiratory failure with hypoxia: Code(s): J96.21 - Acute and chronic respiratory failure with hypoxia Status: Acute Assessment and Plan: Patient on supplemental oxygen 2 L at rest and 4 L with activity at baseline * Chronic respiratory failure secondary to interstitial lung disease, pulmonary hypertension, STARR * Acutely worsened secondary to CHF exacerbation -continue diuresis gently * She is now maintaining adequate O2 sats on room air at 94% * Monitor O2 sats * Repeat home O2 study prior to discharge * Continue bronchodilators. Continue CPAP at night * She will need to follow up with credit risk analyst and hat body inspector after discharge and be seen in the next 3-14 days (2) Acute on chronic diastolic heart failure: Code(s): I50.33 - Acute on chronic diastolic (congestive) heart failure Status: Acute Assessment and Plan: Presented with increased shortness of breath, BNP 39914 * Continue diuresis. * Added at 20 mg oral dose for the afternoon * Lasix 40 mg p.o. daily in the morning, with 20 mg of Lasix p.o. in mid afternoon. * She has demonstrated some improvement with diuresis has had good urine output * Minimize and avoid salt * Elevate lower extremities * Patient refusing compression therapy to her lower extremities * Continue to monitor intake and output, weigh daily * Heart healthy diet * 10/03/2021 ECHO: Mild LVH, mild LV enlargement, normal LV systolic function, EF 55-60%.Diastolic dysfunction is present. Mild left atrial enlargement. Trivial TR, RVSP 14 mmHg. Sinus rhythm. left ventricular diastolic function is abnormal. no pulmonary HTN. * She will need to follow up with credit risk analyst and hat body inspector after discharge and be seen in the next 3-14 days (3) UTI (urinary tract infection): Qualifiers: Hematuria presence: without hematuria Urinary tract infection type: site unspecified Qualified Code(s): N39.0 - Urinary tract infection, site not specified Code(s): N39.0 - Urinary tract infection, site not specified Status: Acute Assessment and Plan: Urine culture with growth of >100k Klebsiella pneumonia Urine culture was collected on December 29 Started on Rocephin on December 30 Culture was sensitive to Rocephin now on day for of IV therapy for UTI * Continue IV ceftriaxone based on susceptibilities - (4) Hyponatremia: Code(s): E87.1 - Hypo-osmolality and hyponatremia Status: Acute Assessment and Plan: Sodium was 129 presentation * Likely due to hypervolemia * Improved to 135 today * Sodium levels are tolerating her diuresis * Sodium is 137 today (5) Paroxysmal atrial fibrillation: Code(s): I48.0 - Paroxysmal atrial fibrillation Status: Acute Assessment and Plan: Chronic Afib Rate controlled Her heart rate is 70 to 80s, regular rate and rhythm * Continue apixaban * Continue metoprolol succinate 100 mg daily (6) Rheumatoid arthritis: Qualifiers: Rheumatoid arthritis location: unspecified site Rheumatoid factor presence: unspecified presence Qualified Code(s): M06.9 - Rheumatoid arthritis, unspecified Code(s): M06.9 - Rheumatoid arthritis, unspecified Status: Chronic Assessment and Plan: No acute issues * Continue hydroxychloroquine * Low-dose daily prednisone on hold while on daily 40mg steroids for 5 days (7) COPD (chronic obstructive pulmonary disease): Code(s): J44.9 - Chronic obstructive pulmonary disease, unspecified
--- NOTE | 2022-01-03 08:55 | PM.IMPN ---
Progress Note: A&P Assessment and Plan (1) Acute and chronic respiratory failure with hypoxia: Code(s): J96.21 - Acute and chronic respiratory failure with hypoxia Status: Acute Assessment and Plan: Patient on supplemental oxygen 2 L at rest and 4 L with activity at baseline Chronic respiratory failure secondary to interstitial lung disease, pulmonary hypertension, STARR Acutely worsened secondary to CHF exacerbation -continue diuresis gently She is now maintaining adequate O2 sats on room air at 94% Monitor O2 sats Repeat home O2 study prior to discharge Continue bronchodilators. Continue CPAP at night She will need to follow up with hims coder and manager of training and development after discharge and be seen in the next 3-14 days (2) Acute on chronic diastolic heart failure: Code(s): I50.33 - Acute on chronic diastolic (congestive) heart failure Status: Acute Assessment and Plan: Presented with [place] shortness [place] breath, BNP 17265 Continue diuresis. Added at 20 mg oral dose for the afternoon Lasix 40 mg p.o. daily in the morning, with 20 mg of Lasix p.o. in mid afternoon. She has demonstrated some improvement with diuresis has had good urine output Minimize and avoid salt Elevate lower extremities Patient refusing compression therapy to her lower extremities Continue to monitor intake and output, weigh daily Heart healthy diet 10/03/2021 ECHO: Mild LVH, mild LV enlargement, normal LV systolic function, EF 55-60%.Diastolic dysfunction is present. Mild left atrial enlargement. Trivial TR, RVSP 14 mmHg. Sinus rhythm. left ventricular diastolic function is abnormal. no pulmonary HTN. She will need to follow up with hims coder and manager of training and development after discharge and be seen in the next 3-14 days (3) UTI (urinary tract infection): Qualifiers: Hematuria presence: without hematuria Urinary tract infection type: site unspecified Qualified Code(s): N39.0 - Urinary tract infection, site not specified Code(s): N39.0 - Urinary tract infection, site not specified Status: Acute Assessment and Plan: Urine culture with growth of >100k Klebsiella pneumonia Urine culture was collected on December 29 Started on Rocephin on December 30 Culture was sensitive to Rocephin now on day for of IV therapy for UTI Continue IV ceftriaxone based on susceptibilities - (4) Hyponatremia: Code(s): E87.1 - Hypo-osmolality and hyponatremia Status: Acute Assessment and Plan: Sodium was 129 presentation Likely due to hypervolemia Improved to 135 today Sodium levels are tolerating her diuresis Sodium is 137 today (5) Paroxysmal atrial fibrillation: Code(s): I48.0 - Paroxysmal atrial fibrillation Status: Acute Assessment and Plan: Chronic Afib Rate controlled Her heart rate is 70 to 80s, regular rate and rhythm Continue apixaban Continue metoprolol succinate 100 mg daily (6) Rheumatoid arthritis: Qualifiers: Rheumatoid arthritis location: unspecified site Rheumatoid factor presence: unspecified presence Qualified Code(s): M06.9 - Rheumatoid arthritis, unspecified Code(s): M06.9 - Rheumatoid arthritis, unspecified Status: Chronic Assessment and Plan: No acute issues Continue hydroxychloroquine Low-dose daily prednisone on hold while on daily 40mg steroids for 5 days (7) COPD (chronic obstructive pulmonary disease): Code(s): J44.9 - Chronic obstructive pulmonary disease, unspecified Status: Acute Assessment and Plan: Rare wheezing at this time Taper IV steroids. Change to Solu-Medrol 60 mg BID Transitioned to PO prednisone 40 mg x5 days Continue bronchodilators and Nebs. She has not used a Nebulizer at home, will need to have one delivered. (8) Hypokalemia: Code(s): E87.6 - Hypokalemia Status: Acute Assessment and Plan: RESOLVED. Likely due
[2022-01-03] MEDS: CHOLECALCIFEROL 1,000 UNITS TABLET 1000 UNITS PO (09:14)
[2022-01-03] MEDS: HYDROXYCHLOROQUINE SULFATE 200 MG TABLET 400 MG PO (09:14)
[2022-01-03] MEDS: PRAVASTATIN SODIUM 20 MG TABLET 80 MG PO (09:15)
[2022-01-03] MEDS: FOLIC ACID 1 MG TABLET PO (09:15)
[2022-01-03] MEDS: METOPROLOL SUCCINATE EXT REL 25 MG TABCR PO (09:15)
[2022-01-03] MEDS: POTASSIUM CHLORIDE 20 MEQ TABLET.ER PO (09:15)
[2022-01-03] MEDS: CYANOCOBALAMIN 1,000 MCG TABLET 1000 MCG PO (09:16)
[2022-01-03] MEDS: FUROSEMIDE 40 MG TABLET PO (09:16)
[2022-01-03] MEDS: predniSONE 20 MG TABLET 40 MG PO (09:16)
[2022-01-03] MEDS: METOPROLOL SUCCINATE EXT REL 100 MG TABCR PO (09:17)
[2022-01-03] MEDS: FAMOTIDINE 20 MG TABLET PO ×2 (09:17→20:40)
[2022-01-03] MEDS: APIXABAN 5 MG TABLET PO ×2 (09:17→17:33)
[2022-01-03] MEDS: DULoxetine HCL 20 MG CAPSULE.DR PO (09:17)
[2022-01-03] MEDS: ACETAMINOPHEN 500 MG TABLET 1000 MG PO (09:26)
[2022-01-03] MEDS: DOCUSATE SODIUM 100 MG CAPSULE PO (09:27)
--- NOTE | 2022-01-03 13:06 | PC.NURSE ---
Pt refuses compression stockings. States she has tried to use them for 20 years and I just cant do it.
[2022-01-03] MEDS: FUROSEMIDE 20 MG TABLET PO (17:33)
[2022-01-04] VITALS (21 sets, daily range): BP systolic 131–148; BP diastolic 80–88; PULSE 63–112; RESP 16–20; TEMP 36.1–36.3; O2SAT 84–100
[2022-01-04] MEDS: IPRATROPIUM BR 0.02% INH SOLN 0.5 MG/2.5 ML VIAL INHALATION ×4 (02:13→20:39)
[2022-01-04] MEDS: ALBUTEROL SULFATE NEB 2.5 MG/0.5 ML INH 5 MG INHALATION ×4 (02:13→20:38)
[2022-01-04] MEDS: LEVOTHYROXINE SODIUM 112 MCG TABLET BY MOUTH (06:05)
[2022-01-04 06:32] LABS: Basophils Percent Auto 0.2 % (0.2-1.2); Eosinophils Absolute Auto 0.1 K/mm3 (0-0.3); Eosinophils Percent Auto 0.6 % (0-4.4); Hematocrit 33.1 % (37.0-47.0); Hemoglobin 10.2 g/dL (12.0-15.0); Immature Granulocyte Absolute 0.27 K/mm3 (0.00-0.031); Immature Granulocyte Percent A 1.8 % (0-0.5); Lymphocytes Absolute Auto 1.84 K/mm3 (0.9-3.2); Lymphocytes Percent Auto 12.4 % (18.3-44.2); Mean Corpuscular HGB Conc 30.8 g/dl (32-36); Mean Corpuscular Hemoglobin 30.4 pg (26-34); Mean Corpuscular Volume 98.8 fl (80-100); Mean Platelet Volume 9.7 fl (7.4-10.4); Monocytes Percent Auto 6.7 % (2.6-8.5); Neutrophils Absolute Auto 11.6 K/mm3 (1.3-6.7); Neutrophils Percent Auto 78.3 % (45.5-73.1); Platelet Count Result 302 k/mm3 (150-375); Red Blood Count 3.35 M/mm3 (4.2-5.4); Red Cell Distribution Width 14.1 % (11.5-14.5); White Blood Count 14.8 K/mm3 (4.5-10.0)
[2022-01-04 06:52] LABS: Alanine Aminotransferase 17 U/L (4-35); Albumin Level 3.4 g/dL (3.5-5.1); Alkaline Phosphatase 36 U/L (38-126); Anion Gap 3 mmol/L (8-16); Aspartate Amino Transferase 20 U/L (14-36); Bilirubin,Total 0.3 mg/dL (0.2-1.3); Blood Urea Nitrogen 43 mg/dL (7-17); Calcium 9.3 mg/dL (8.4-10.2); Carbon Dioxide 33 mmol/L (22-30); Chloride 97 mmol/L (98-107); Estimated CRCL calculation 38 ml/min; Estimated Glomerular Filt Rate 37; Glucose 104 mg/dL (65-110); Phosphorus 2.8 mg/dL (2.5-4.5); Potassium 4.5 mmol/L (3.4-5.0); Sodium 133 mmol/L (137-145)
[2022-01-04] MEDS: PRAVASTATIN SODIUM 20 MG TABLET 80 MG PO (09:00)
[2022-01-04] MEDS: METOPROLOL SUCCINATE EXT REL 100 MG TABCR PO (09:00)
[2022-01-04] MEDS: METOPROLOL SUCCINATE EXT REL 25 MG TABCR PO (09:00)
[2022-01-04] MEDS: FAMOTIDINE 20 MG TABLET PO ×2 (09:00→20:55)
[2022-01-04] MEDS: DULoxetine HCL 20 MG CAPSULE.DR PO (09:00)
[2022-01-04] MEDS: predniSONE 20 MG TABLET 40 MG PO (09:01)
[2022-01-04] MEDS: APIXABAN 5 MG TABLET PO ×2 (09:01→17:34)
[2022-01-04] MEDS: FUROSEMIDE 40 MG TABLET PO (09:01)
[2022-01-04] MEDS: HYDROXYCHLOROQUINE SULFATE 200 MG TABLET 400 MG PO (09:01)
[2022-01-04] MEDS: FOLIC ACID 1 MG TABLET PO (09:01)
[2022-01-04] MEDS: POTASSIUM CHLORIDE 20 MEQ TABLET.ER PO (09:01)
[2022-01-04] MEDS: CHOLECALCIFEROL 1,000 UNITS TABLET 1000 UNITS PO (09:02)
[2022-01-04] MEDS: ACETAMINOPHEN 500 MG TABLET 1000 MG PO (09:08)
[2022-01-04] MEDS: FUROSEMIDE 20 MG TABLET PO (15:10)
[2022-01-04 15:13] LABS: NT Pro B Type Natriuretic Pept 4510 pg/mL (5-100)
--- NOTE | 2022-01-04 16:03 | PCRCNOTE ---
HOME O2 EVAL COMPLETE NO CHANGES TO PT'S HOME SETTING. ROOM AIR AT REST AND 4 LITERS WITH ACTIVITY. PT'S DAUGHTER TO BRING IN TANK FOR DISCHARGE.
--- NOTE | 2022-01-04 17:38 | P.PNIM_ITS ---
Progress Note: A&P Assessment and Plan (1) Acute and chronic respiratory failure with hypoxia: Code(s): J96.21 - Acute and chronic respiratory failure with hypoxia Status: Acute Assessment and Plan: Patient on supplemental oxygen 2 L at rest and 4 L with activity at baseline * Chronic respiratory failure secondary to interstitial lung disease, pulmonary hypertension, STARR * Acutely worsened secondary to CHF exacerbation -continue diuresis gently * She is now maintaining adequate O2 sats on room air at 94% * Monitor O2 sats * Repeat home O2 study prior to discharge * Continue bronchodilators. Continue CPAP at night * She will need to follow up with electric arc welder and tire service technician after discharge and be seen in the next 3-14 days * Ordered home O2 study to be completed today, preparing for discharge in the morning (2) Acute on chronic diastolic heart failure: Code(s): I50.33 - Acute on chronic diastolic (congestive) heart failure Status: Acute Assessment and Plan: Presented with increased shortness of breath, BNP 56513 * Continue diuresis at home * Added at 20 mg oral dose for the afternoon * Lasix 40 mg p.o. daily in the morning, with 20 mg of Lasix p.o. in mid afternoon * -tolerated the extra diuresis and will return to the once a morning dose of l asix * She has demonstrated some improvement with diuresis has had good urine output * Minimize and avoid salt * Elevate lower extremities * Patient refusing compression therapy to her lower extremities * Continue to monitor intake and output, weigh daily * Heart healthy diet * 10/03/2021 ECHO: Mild LVH, mild LV enlargement, normal LV systolic function, EF 55-60%.Diastolic dysfunction is present. Mild left atrial enlargement. Trivial TR, RVSP 14 mmHg. Sinus rhythm. left ventricular diastolic function is abnormal. no pulmonary HTN. * She will need to follow up with electric arc welder and tire service technician after discharge and be seen in the next 3-14 days (3) UTI (urinary tract infection): Qualifiers: Hematuria presence: without hematuria Urinary tract infection type: site unspecified Qualified Code(s): N39.0 - Urinary tract infection, site not specified Code(s): N39.0 - Urinary tract infection, site not specified Status: Acute Assessment and Plan: Urine culture with growth of >100k Klebsiella pneumonia Urine culture was collected on December 29 Started on Rocephin on December 30 Culture was sensitive to Rocephin now on day for of IV therapy for UTI * Continue IV ceftriaxone based on susceptibilities - * Should be adequately treated for UTI based on her IV doses received in hospital (4) Hyponatremia: Code(s): E87.1 - Hypo-osmolality and hyponatremia Status: Acute Assessment and Plan: Sodium was 129 presentation * Likely due to hypervolemia * Improved to 135 today * Sodium levels are tolerating her diuresis * Sodium is 137 today * Sodium is 133 today, returned to regular diet (5) Paroxysmal atrial fibrillation: Code(s): I48.0 - Paroxysmal atrial fibrillation Status: Acute Assessment and Plan: Chronic Afib Rate controlled Her heart rate is 70 to 80s, regular rate and rhythm * Continue apixaban * Continue metoprolol succinate 100 mg daily (6) Rheumatoid arthritis: Qualifiers: Rheumatoid arthritis location: unspecified site Rheumatoid factor presence: unspecified presence Qualified Code(s): M06.9 - Rheumatoid arthritis, unspecified Code(s): M06.9 - Rheumatoid arthritis, unspecified
--- NOTE | 2022-01-04 17:38 | PM.IMPN ---
Progress Note: A&P Assessment and Plan (1) Acute and chronic respiratory failure with hypoxia: Code(s): J96.21 - Acute and chronic respiratory failure with hypoxia Status: Acute Assessment and Plan: Patient on supplemental oxygen 2 L at rest and 4 L with activity at baseline Chronic respiratory failure secondary to interstitial lung disease, pulmonary hypertension, STARR Acutely worsened secondary to CHF exacerbation -continue diuresis gently She is now maintaining adequate O2 sats on room air at 94% Monitor O2 sats Repeat home O2 study prior to discharge Continue bronchodilators. Continue CPAP at night She will need to follow up with data security coordinator and online tutor after discharge and be seen in the next 3-14 days Ordered home O2 study to be completed today, preparing for discharge in the morning (2) Acute on chronic diastolic heart failure: Code(s): I50.33 - Acute on chronic diastolic (congestive) heart failure Status: Acute Assessment and Plan: Presented with increased shortness of breath, BNP 73611 Continue diuresis at home Added at 20 mg oral dose for the afternoon Lasix 40 mg p.o. daily in the morning, with 20 mg of Lasix p.o. in mid afternoon -tolerated the extra diuresis and will return to the once a morning dose of lasix She has demonstrated some improvement with diuresis has had good urine output Minimize and avoid salt Elevate lower extremities Patient refusing compression therapy to her lower extremities Continue to monitor intake and output, weigh daily Heart healthy diet 10/03/2021 ECHO: Mild LVH, mild LV enlargement, normal LV systolic function, EF 55-60%.Diastolic dysfunction is present. Mild left atrial enlargement. Trivial TR, RVSP 14 mmHg. Sinus rhythm. left ventricular diastolic function is abnormal. no pulmonary HTN. She will need to follow up with data security coordinator and online tutor after discharge and be seen in the next 3-14 days (3) UTI (urinary tract infection): Qualifiers: Hematuria presence: without hematuria Urinary tract infection type: site unspecified Qualified Code(s): N39.0 - Urinary tract infection, site not specified Code(s): N39.0 - Urinary tract infection, site not specified Status: Acute Assessment and Plan: Urine culture with growth of >100k Klebsiella pneumonia Urine culture was collected on December 29 Started on Rocephin on December 30 Culture was sensitive to Rocephin now on day for of IV therapy for UTI Continue IV ceftriaxone based on susceptibilities - Should be adequately treated for UTI based on her IV doses received in hospital (4) Hyponatremia: Code(s): E87.1 - Hypo-osmolality and hyponatremia Status: Acute Assessment and Plan: Sodium was 129 presentation Likely due to hypervolemia Improved to 135 today Sodium levels are tolerating her diuresis Sodium is 137 today Sodium is 133 today, returned to regular diet (5) Paroxysmal atrial fibrillation: Code(s): I48.0 - Paroxysmal atrial fibrillation Status: Acute Assessment and Plan: Chronic Afib Rate controlled Her heart rate is 70 to 80s, regular rate and rhythm Continue apixaban Continue metoprolol succinate 100 mg daily (6) Rheumatoid arthritis: Qualifiers: Rheumatoid arthritis location: unspecified site Rheumatoid factor presence: unspecified presence Qualified Code(s): M06.9 - Rheumatoid arthritis, unspecified Code(s): M06.9 - Rheumatoid arthritis, unspecified Status: Chronic Assessment and Plan: No acute issues Continue hydroxychloroquine Low-dose daily prednisone on hold while on daily 40mg steroids for 5 days (7) COPD (chronic obstructive pulmonary disease): Code(s): J44.9 - Chronic obstructive pulmonary disease, unspecified Status: Acute Assessment and Plan: Rare wheezing at this time Taper IV steroids. Change to [facility]
[2022-01-05] VITALS (7 sets, daily range): BP systolic 143; BP diastolic 95; PULSE 62–90; RESP 18; TEMP 36.3; O2SAT 98–100
[2022-01-05] MEDS: IPRATROPIUM BR 0.02% INH SOLN 0.5 MG/2.5 ML VIAL INHALATION ×2 (02:26→08:19)
[2022-01-05] MEDS: ALBUTEROL SULFATE NEB 2.5 MG/0.5 ML INH 5 MG INHALATION ×2 (02:26→08:19)
[2022-01-05] MEDS: LEVOTHYROXINE SODIUM 112 MCG TABLET BY MOUTH (05:41)
[2022-01-05 07:26] LABS: Hematocrit 33.7 % (37.0-47.0); Hemoglobin 10.6 g/dL (12.0-15.0); Mean Corpuscular HGB Conc 31.5 g/dl (32-36); Mean Corpuscular Volume 98.5 fl (80-100); Mean Platelet Volume 9.8 fl (7.4-10.4); Platelet Count Result 322 k/mm3 (150-375); Red Blood Count 3.42 M/mm3 (4.2-5.4); Red Cell Distribution Width 14.1 % (11.5-14.5); White Blood Count 14.2 K/mm3 (4.5-10.0)
[2022-01-05 07:44] LABS: Alanine Aminotransferase 16 U/L (4-35); Albumin Level 3.4 g/dL (3.5-5.1); Alkaline Phosphatase 39 U/L (38-126); Anion Gap 4 mmol/L (8-16); Aspartate Amino Transferase 20 U/L (14-36); Bilirubin,Total 0.3 mg/dL (0.2-1.3); Blood Urea Nitrogen 35 mg/dL (7-17); Calcium 9.6 mg/dL (8.4-10.2); Carbon Dioxide 37 mmol/L (22-30); Chloride 93 mmol/L (98-107); Estimated CRCL calculation 47 ml/min; Estimated Glomerular Filt Rate 49; Glucose 89 mg/dL (65-110); Potassium 4.2 mmol/L (3.4-5.0); Sodium 134 mmol/L (137-145)
[2022-01-05] MEDS: HYDROXYCHLOROQUINE SULFATE 200 MG TABLET 400 MG PO (08:34)
[2022-01-05] MEDS: POTASSIUM CHLORIDE 20 MEQ TABLET.ER PO (08:34)
[2022-01-05] MEDS: PRAVASTATIN SODIUM 20 MG TABLET 80 MG PO (08:34)
[2022-01-05] MEDS: predniSONE 20 MG TABLET 40 MG PO (08:34)
[2022-01-05] MEDS: FUROSEMIDE 40 MG TABLET PO (08:34)
[2022-01-05] MEDS: METOPROLOL SUCCINATE EXT REL 100 MG TABCR PO (08:35)
[2022-01-05] MEDS: CHOLECALCIFEROL 1,000 UNITS TABLET 1000 UNITS PO (08:35)
[2022-01-05] MEDS: APIXABAN 5 MG TABLET PO (08:35)
[2022-01-05] MEDS: CYANOCOBALAMIN 1,000 MCG TABLET 1000 MCG PO (08:35)
[2022-01-05] MEDS: DULoxetine HCL 20 MG CAPSULE.DR PO (08:35)
[2022-01-05] MEDS: FOLIC ACID 1 MG TABLET PO (08:35)
[2022-01-05] MEDS: FAMOTIDINE 20 MG TABLET PO (08:35)
[2022-01-05] MEDS: METOPROLOL SUCCINATE EXT REL 25 MG TABCR PO (08:35)
--- NOTE | 2022-01-05 09:00 | P.DS_ITS ---
DS: Admitting Diagnosis Discharge Date 01/05/2022 Admitting Diagnosis Acute on chronic respiratory failure with hypoxia, acute on chronic diastolic heart failure, UTI, hyponatremia, paroxysmal atrial fibrillation, rheumatoid arthritis, COPD, hypokalemia, erythema of the neck DS: Discharge Diagnosis Discharge Diagnosis (1) Acute and chronic respiratory failure with hypoxia: Code(s): J96.21 - Acute and chronic respiratory failure with hypoxia Status: Acute Assessment and Plan: Patient on supplemental oxygen 2 L at rest and 4 L with activity at baseline * Chronic respiratory failure secondary to interstitial lung disease, pulmonary hypertension, STARR * Acutely worsened secondary to CHF exacerbation -continue diuresis gently, BNP improved, fluid removed * She is now maintaining adequate O2 sats on room air at 94% * Monitor O2 sats * Repeat home O2 study prior to discharge * Continue bronchodilators. Continue CPAP at night * She will need to follow up with providers after discharge * Ordered home O2 study to be completed today, preparing for discharge in the morning (2) Acute on chronic diastolic heart failure: Code(s): I50.33 - Acute on chronic diastolic (congestive) heart failure Status: Acute Assessment and Plan: Presented with increased shortness of breath, BNP 44234 at admission * Continue diuresis at home * BNP improved * Lasix 40 mg p.o. daily in the morning, * -tolerated the extra diuresis and will return to the once a morning dose of lasix * She has demonstrated some improvement with diuresis has had good urine output * Minimize and avoid salt * Elevate lower extremities * Patient refusing compression therapy to her lower extremities * Continue to monitor intake and output, weigh daily * Heart healthy diet * 10/03/2021 ECHO: Mild LVH, mild LV enlargement, normal LV systolic function, EF 55-60%.Diastolic dysfunction is present. Mild left atrial enlargement. Trivial TR, RVSP 14 mmHg. Sinus rhythm. left ventricular diastolic function is abnormal. no pulmonary HTN. * She will need to follow up with providers after discharge (3) UTI (urinary tract infection): Qualifiers: Hematuria presence: without hematuria Urinary tract infection type: site unspecified Qualified Code(s): N39.0 - Urinary tract infection, site not specified Code(s): N39.0 - Urinary tract infection, site not specified Status: Acute Assessment and Plan: Urine culture with growth of >100k Klebsiella pneumonia Urine culture was collected on December 29 Started on Rocephin on December 30 Culture was sensitive to Rocephin now on day for of IV therapy for UTI * Continue IV ceftriaxone based on susceptibilities - * Should be adequately treated for UTI based on her IV doses received in hospital (4) Hyponatremia: Code(s): E87.1 - Hypo-osmolality and hyponatremia Status: Acute Assessment and Plan: Sodium was 129 presentation -improved to 134 today * Likely due to hypervolemia * Sodium levels are tolerating her diuresis * returned to regular diet (5) Paroxysmal atrial fibrillation: Code(s): I48.0 - Paroxysmal atrial fibrillation Status: Acute Assessment and Plan: Chronic Afib Rate controlled Her heart rate is 70 to 80s, regular rate and rhythm * Continue apixaban * Continue metoprolol succinate 125 mg daily (6) Rheumatoid arthritis: Qualifiers: Rheumatoid arthritis location: unspecified site Rheumatoid factor presence: unspecified presence Qualified Code(s): M06.9 -
--- NOTE | 2022-01-05 09:00 | PM.DS ---
DS: Admitting Diagnosis Discharge Date 01/05/2022 Admitting Diagnosis Acute on chronic respiratory failure with hypoxia, acute on chronic diastolic heart failure, UTI, hyponatremia, paroxysmal atrial fibrillation, rheumatoid arthritis, COPD, hypokalemia, erythema of the neck DS: Discharge Diagnosis Discharge Diagnosis (1) Acute and chronic respiratory failure with hypoxia: Code(s): J96.21 - Acute and chronic respiratory failure with hypoxia Status: Acute Assessment and Plan: Patient on supplemental oxygen 2 L at rest and 4 L with activity at baseline Chronic respiratory failure secondary to interstitial lung disease, pulmonary hypertension, STARR Acutely worsened secondary to CHF exacerbation -continue diuresis gently, BNP improved, fluid removed She is now maintaining adequate O2 sats on room air at 94% Monitor O2 sats Repeat home O2 study prior to discharge Continue bronchodilators. Continue CPAP at night She will need to follow up with providers after discharge Ordered home O2 study to be completed today, preparing for discharge in the morning (2) Acute on chronic diastolic heart failure: Code(s): I50.33 - Acute on chronic diastolic (congestive) heart failure Status: Acute Assessment and Plan: Presented with increased shortness of breath, BNP 25608 at admission Continue diuresis at home BNP improved Lasix 40 mg p.o. daily in the morning, -tolerated the extra diuresis and will return to the once a morning dose of lasix She has demonstrated some improvement with diuresis has had good urine output Minimize and avoid salt Elevate lower extremities Patient refusing compression therapy to her lower extremities Continue to monitor intake and output, weigh daily Heart healthy diet 10/03/2021 ECHO: Mild LVH, mild LV enlargement, normal LV systolic function, EF 55-60%.Diastolic dysfunction is present. Mild left atrial enlargement. Trivial TR, RVSP 14 mmHg. Sinus rhythm. left ventricular diastolic function is abnormal. no pulmonary HTN. She will need to follow up with providers after discharge (3) UTI (urinary tract infection): Qualifiers: Hematuria presence: without hematuria Urinary tract infection type: site unspecified Qualified Code(s): N39.0 - Urinary tract infection, site not specified Code(s): N39.0 - Urinary tract infection, site not specified Status: Acute Assessment and Plan: Urine culture with growth of >100k Klebsiella pneumonia Urine culture was collected on December 29 Started on Rocephin on December 30 Culture was sensitive to Rocephin now on day for of IV therapy for UTI Continue IV ceftriaxone based on susceptibilities - Should be adequately treated for UTI based on her IV doses received in hospital (4) Hyponatremia: Code(s): E87.1 - Hypo-osmolality and hyponatremia Status: Acute Assessment and Plan: Sodium was 129 presentation -improved to 134 today Likely due to hypervolemia Sodium levels are tolerating her diuresis returned to regular diet (5) Paroxysmal atrial fibrillation: Code(s): I48.0 - Paroxysmal atrial fibrillation Status: Acute Assessment and Plan: Chronic Afib Rate controlled Her heart rate is 70 to 80s, regular rate and rhythm Continue apixaban Continue metoprolol succinate 125 mg daily (6) Rheumatoid arthritis: Qualifiers: Rheumatoid arthritis location: unspecified site Rheumatoid factor presence: unspecified presence Qualified Code(s): M06.9 - Rheumatoid arthritis, unspecified Code(s): M06.9 - Rheumatoid arthritis, unspecified Status: Chronic Assessment and Plan: No acute issues Continue hydroxychloroquine Low-dose daily prednisone on hold while on daily 40mg steroids for 2-4 days Return to home low-dose steroid at discharge (7) COPD (chronic obstructive pulmonary disease): Code(s): J44.9 - Chronic obstructi
--- NOTE | 2022-01-05 10:31 | PCNWS ---
Weekly nutritional screen. Patient screened in for 7 day length of stay. Patient is tolerating current diet with adequate intake. No nutritional needs at this time. Will follow up in 7 days if pt has not been d/c.
== END 2022-01-05 13:05 | disposition home health service (06) | DRG 291 ==
LOC: ANHED 11:34 → ANH3MEDSUR 14:55
PROVIDERS: Internal Medicine; Physician Assistant; Admitting Provider Family Medicine; Emergency Provider Emergency Medicine; PCP Internal Medicine; Visit Provider Nurse Practitioner
DX: I11.0 Hypertensive heart disease with heart failure (principal); J96.21 Acute and chronic respiratory failure with hypoxia; I50.33 Acute on chronic diastolic (congestive) heart failure; J84.9 Interstitial pulmonary disease, unspecified; Z68.41 Body mass index [BMI] 40.0-44.9, adult; N39.0 Urinary tract infection, site not specified; E87.1 Hypo-osmolality and hyponatremia; B96.1 Klebsiella pneumoniae [K. pneumoniae] as the cause of diseases classified elsewhere; Z20.822 Contact with and (suspected) exposure to COVID-19; I48.0 Paroxysmal atrial fibrillation; E66.01 Morbid (severe) obesity due to excess calories; E87.6 Hypokalemia; F32.A Depression, unspecified; G47.33 Obstructive sleep apnea (adult) (pediatric); I27.20 Pulmonary hypertension, unspecified; I48.91 Unspecified atrial fibrillation; J44.9 Chronic obstructive pulmonary disease, unspecified; L53.9 Erythematous condition, unspecified; M06.9 Rheumatoid arthritis, unspecified; M16.11 Unilateral primary osteoarthritis, right hip; Z99.81 Dependence on supplemental oxygen; Z96.653 Presence of artificial knee joint, bilateral; Z86.718 Personal history of other venous thrombosis and embolism; Z86.711 Personal history of pulmonary embolism; Z90.89 Acquired absence of other organs; Z79.01 Long term (current) use of anticoagulants; Z99.89 Dependence on other enabling machines and devices
CPT/HCPCS: 36415; 71046; 71275; 80053; 80069; 81001; 82533; 82565; 82746; 83540; 83550; 83735; 83880; 84100; 84439; 84443; 84460; 84480; 85025; 85027; 85046; 85610; 87077; 87086; 87088; 87186; 93005; 94618; 94640; 94668; 96361; 96365; 96366; 96375; 97110; 97161; 97165; 97530; 97535; 99285; A9270; C8929; C9803; G0378; J0696; J1940; J2930; J3475; J7040; J7512; Q9957; Q9967; U0003; U0005

== ENCOUNTER 2022-01-09 11:40 | Outpatient (NON) | payer MEDICARE, SELFPAY ==
[2022-01-09 11:59] LABS: Hematocrit 37.3 % (37.0-47.0); Hemoglobin 11.8 g/dL (12.0-15.0); Mean Corpuscular HGB Conc 31.6 g/dl (32-36); Mean Corpuscular Hemoglobin 31.4 pg (26-34); Mean Corpuscular Volume 99.2 fl (80-100); Mean Platelet Volume 10.3 fl (7.4-10.4); Platelet Count Result 315 k/mm3 (150-375); Red Blood Count 3.76 M/mm3 (4.2-5.4); Red Cell Distribution Width 14.3 % (11.5-14.5)
[2022-01-09 12:08] LABS: Alanine Aminotransferase 23 U/L (4-35); Albumin Level 3.9 g/dL (3.5-5.1); Alkaline Phosphatase 41 U/L (38-126); Anion Gap 7 mmol/L (8-16); Aspartate Amino Transferase 26 U/L (14-36); Bilirubin,Total 0.4 mg/dL (0.2-1.3); Blood Urea Nitrogen 36 mg/dL (7-17); Calcium 10.2 mg/dL (8.4-10.2); Carbon Dioxide 28 mmol/L (22-30); Chloride 98 mmol/L (98-107); Estimated Glomerular Filt Rate 40; Glucose 109 mg/dL (65-110); Sodium 133 mmol/L (137-145)
== END 2022-01-09 11:41 | disposition home or self-care (01) ==
PROVIDERS: PCP Internal Medicine; Visit Provider Internal Medicine
DX: J44.9 Chronic obstructive pulmonary disease, unspecified (principal); L53.9 Erythematous condition, unspecified; I50.33 Acute on chronic diastolic (congestive) heart failure; J96.21 Acute and chronic respiratory failure with hypoxia; N39.0 Urinary tract infection, site not specified; E87.6 Hypokalemia; E87.1 Hypo-osmolality and hyponatremia
CPT/HCPCS: 80053; 85027

== ENCOUNTER 2022-01-31 12:40 | Outpatient (NON) | payer MEDICARE, SELFPAY ==
[2022-01-31 13:03] LABS: Basophils Percent Auto 0.4 % (0.2-1.2); Eosinophils Absolute Auto 0.1 K/mm3 (0-0.3); Eosinophils Percent Auto 0.4 % (0-4.4); Hematocrit 37.6 % (37.0-47.0); Hemoglobin 11.9 g/dL (12.0-15.0); Immature Granulocyte Absolute 0.07 K/mm3 (0.00-0.031); Immature Granulocyte Percent A 0.6 % (0-0.5); Lymphocytes Absolute Auto 0.82 K/mm3 (0.9-3.2); Lymphocytes Percent Auto 7.2 % (18.3-44.2); Mean Corpuscular HGB Conc 31.6 g/dl (32-36); Mean Corpuscular Hemoglobin 31.5 pg (26-34); Mean Corpuscular Volume 99.5 fl (80-100); Mean Platelet Volume 9.7 fl (7.4-10.4); Monocytes Absolute Auto 0.7 K/mm3 (0.1-0.6); Monocytes Percent Auto 6.4 % (2.6-8.5); Neutrophils Absolute Auto 9.7 K/mm3 (1.3-6.7); Platelet Count Result 242 k/mm3 (150-375); Red Blood Count 3.78 M/mm3 (4.2-5.4); Red Cell Distribution Width 14.6 % (11.5-14.5); White Blood Count 11.4 K/mm3 (4.5-10.0)
[2022-01-31 13:09] LABS: Alanine Aminotransferase 16 U/L (4-35); Albumin Level 4.1 g/dL (3.5-5.1); Alkaline Phosphatase 39 U/L (38-126); Anion Gap 10 mmol/L (8-16); Aspartate Amino Transferase 23 U/L (14-36); Bilirubin,Total 0.2 mg/dL (0.2-1.3); Blood Urea Nitrogen 28 mg/dL (7-17); Calcium 9.5 mg/dL (8.4-10.2); Carbon Dioxide 23 mmol/L (22-30); Chloride 105 mmol/L (98-107); Estimated Glomerular Filt Rate 44; Glucose 97 mg/dL (65-110); Potassium 3.9 mmol/L (3.4-5.0); Sodium 138 mmol/L (137-145)
== END 2022-01-31 12:41 | disposition home or self-care (01) ==
LOC: HOME HLTH 12:48
PROVIDERS: PCP Internal Medicine; Visit Provider Internal Medicine
DX: J96.21 Acute and chronic respiratory failure with hypoxia (principal); J84.9 Interstitial pulmonary disease, unspecified; N39.0 Urinary tract infection, site not specified; J44.9 Chronic obstructive pulmonary disease, unspecified; I50.33 Acute on chronic diastolic (congestive) heart failure; I27.20 Pulmonary hypertension, unspecified; I48.0 Paroxysmal atrial fibrillation
CPT/HCPCS: 80053; 85025

== ENCOUNTER 2022-02-15 13:07 | Outpatient (CLI) | payer MEDICARE, SELFPAY ==
--- NOTE | ~2022-02-15 | US_ITS ---
EXAMINATION: US retroperitoneal comp DATE: 02/15/2022 13:53 INDICATION: Chronic cystitis TECHNIQUE: Multiple grayscale and Doppler ultrasound images of the kidneys were obtained. COMPARISON: 01/28/2020 FINDINGS: There is atrophy of the kidneys. The right kidney measures 8.9 x 5.5 x 5.9 cm. There is a 3 .4 cm cyst of the right kidney. The left kidney measures 9.0 x 5.0 x 5.5 cm. The kidneys demonstrate normal parenchymal echogenicity. There is no hydronephrosis. The bladder thickened bladder wall measu res 8 mm. IMPRESSION: 1. Atrophy of the kidneys. 2. Wall thickening of the urinary bladder, consistent with history of chronic cystitis. Reviewed, dictated and finalized at location B. IMPRESSION: 1. Atrophy of the kidneys. 2. Wall thickening of the urinary bladder, consistent with history of chronic c ystitis.
== END 2022-02-15 13:08 | disposition home or self-care (01) ==
PROVIDERS: PCP Internal Medicine; Visit Provider Nurse Practitioner Family
DX: N30.20 Other chronic cystitis without hematuria (principal); N26.1 Atrophy of kidney (terminal)
CPT/HCPCS: 76770

== ENCOUNTER 2022-02-23 10:28 | Outpatient (CLI) | payer MEDICARE, SELFPAY ==
--- NOTE | ~2022-02-23 | XR_ITS ---
XR chest 2V DATE: 02/23/2022 10:58 INDICATION: Chronic obstructive pulmonary disease TECHNIQUE: AP and lateral views COMPARISON: January 03, 2022 AP and lateral chest December 29, 2021 CT pulmonary scan FINDINGS: There is persistent patchy bilateral pulmonary infiltrates, particularly prominent in the l eft mid to upper lung, relatively stable since November 02, 2022. There is right apical capping. Cardiomegaly. Aortic calcification. No pleural effusion or pulmonary vascular congestion or pneumotho rax is evident. Surgical clips, right upper quadrant, consistent with cholecystectomy. Diffuse osteopenia. IMPRESSION: No significant change of patchy bilateral pulmonary infiltrates, more prominent on the le ft, particularly in the mid to left upper lung. Definitive diagnosis includes pneumonia and/or chroni c interstitial fibrotic change. Reviewed, dictated and finalized at location A. IMPRESSION: No significant change of patchy bilateral pulmonary infiltrates, mo re prominent on the left, particularly in the mid to left upper lung. Definitiv e diagnosis includes pneumonia and/or chronic interstitial fibrotic change.
== END 2022-02-23 10:29 | disposition home or self-care (01) ==
PROVIDERS: PCP Internal Medicine; Visit Provider Internal Medicine
DX: J44.9 Chronic obstructive pulmonary disease, unspecified (principal); R91.8 Other nonspecific abnormal finding of lung field
CPT/HCPCS: 71046

== ENCOUNTER 2022-04-26 08:59 | Outpatient (CLI) | payer MEDICARE, SELFPAY ==
[2022-04-26 10:26] LABS: Anion Gap 7 mmol/L (8-16); Blood Urea Nitrogen 32 mg/dL (7-17); Calcium 9.8 mg/dL (8.4-10.2); Carbon Dioxide 29 mmol/L (22-30); Chloride 102 mmol/L (98-107); Estimated Glomerular Filt Rate 40; Glucose 87 mg/dL (65-110); Potassium 3.9 mmol/L (3.4-5.0); Sodium 138 mmol/L (137-145)
== END 2022-04-26 09:00 | disposition home or self-care (01) ==
LOC: ANHLAB 09:02
PROVIDERS: PCP Internal Medicine; Visit Provider Internal Medicine Cardiovascular Disease
DX: I50.32 Chronic diastolic (congestive) heart failure (principal); I48.0 Paroxysmal atrial fibrillation; G47.33 Obstructive sleep apnea (adult) (pediatric); Z99.89 Dependence on other enabling machines and devices
CPT/HCPCS: 36415; 80048

== ENCOUNTER 2022-05-10 08:30 | Outpatient (CLI) | payer MEDICARE, SELFPAY ==
[2022-05-10 08:57] LABS: Basophils Absolute Auto 0.1 K/mm3 (0.0-0.1); Basophils Percent Auto 0.6 % (0.2-1.2); Eosinophils Absolute Auto 0.2 K/mm3 (0-0.3); Eosinophils Percent Auto 1.6 % (0-4.4); Hematocrit 38.1 % (37.0-47.0); Hemoglobin 11.8 g/dL (12.0-15.0); Immature Granulocyte Absolute 0.07 K/mm3 (0.00-0.031); Immature Granulocyte Percent A 0.6 % (0-0.5); Lymphocytes Absolute Auto 1.24 K/mm3 (0.9-3.2); Lymphocytes Percent Auto 11.2 % (18.3-44.2); Mean Corpuscular Hemoglobin 31.5 pg (26-34); Mean Corpuscular Volume 101.6 fl (80-100); Mean Platelet Volume 9.3 fl (7.4-10.4); Monocytes Absolute Auto 0.9 K/mm3 (0.1-0.6); Monocytes Percent Auto 7.7 % (2.6-8.5); Neutrophils Absolute Auto 8.7 K/mm3 (1.3-6.7); Neutrophils Percent Auto 78.3 % (45.5-73.1); Platelet Count Result 317 k/mm3 (150-375); Red Blood Count 3.75 M/mm3 (4.2-5.4); Red Cell Distribution Width 13.8 % (11.5-14.5); White Blood Count 11.1 K/mm3 (4.5-10.0)
[2022-05-10 09:10] LABS: Cholesterol 183 mg/dL (0-200); HDL Direct 85 mg/dL; Triglycerides 104 mg/dL (<150)
[2022-05-10 09:17] LABS: Anion Gap 6 mmol/L (8-16); Blood Urea Nitrogen 39 mg/dL (7-17); Carbon Dioxide 27 mmol/L (22-30); Chloride 105 mmol/L (98-107); Estimated Glomerular Filt Rate 40; Glucose 89 mg/dL (65-110); Potassium 4.4 mmol/L (3.4-5.0); Sodium 138 mmol/L (137-145)
[2022-05-10 09:22] LABS: LDL Cholesterol Direct 49 mg/dL
[2022-05-10 09:34] LABS: Iron 74 ug/dL (37-170)
[2022-05-10 09:44] LABS: Percent Iron Saturation 23 % (20-50)
== END 2022-05-10 08:31 | disposition home or self-care (01) ==
PROVIDERS: PCP Internal Medicine; Visit Provider Internal Medicine Cardiovascular Disease
DX: I50.32 Chronic diastolic (congestive) heart failure (principal); I10 Essential (primary) hypertension; D53.9 Nutritional anemia, unspecified; E03.9 Hypothyroidism, unspecified; E53.8 Deficiency of other specified B group vitamins; E78.5 Hyperlipidemia, unspecified
CPT/HCPCS: 36415; 80048; 80061; 82607; 83540; 83550; 84443; 85025

== ENCOUNTER 2022-05-22 20:27 | Inpatient (IN) | payer MEDICARE, SELFPAY ==
--- NOTE | ~2022-05-22 | XR_ITS ---
XR chest 1V portable DATE: 05/26/2022 13:06 INDICATION: Covid infection TECHNIQUE: Portable upright AP chest on 05/26/2022 at 1257 hours COMPARISON: 05/14/2022 CT chest 02/23/2022 PA and lateral chest FINDINGS: Cardiac megaly. There is pulmonary vascular congestion. Aortic arch calcification. Patchy bilateral pulmonary infiltrates, left greater than right. Differential diagnosis includes pneu monia and pulmonary edema and early fibrosis. Right apical capping. Diffuse osteopenia. IMPRESSION: Cardiomegaly, pulmonary vascular congestion and bilateral pulmonary infiltrates, left gre ater than right. Consider pneumonia, pulmonary edema and/or fibrosis Reviewed, dictated and finalized at location A. IMPRESSION: Cardiomegaly, pulmonary vascular congestion and bilateral pulmonary infiltrates, left greater than right. Consider pneumonia, pulmonary edema and/ or fibrosis
--- NOTE | ~2022-05-22 | CT_ITS ---
EXAMINATION: CT diagnostic chest wo con DATE: 05/22/2022 21:06 INDICATION: sob, left rib pain AFTER FALL TECHNIQUE: Computed tomography (CT) of the chest was performed without intravenous contrast. Automate d exposure control and iterative reconstruction technique were employed. The dose-length product was 614.41 mGy-cm. COMPARISON: [facility] 12/29/2021. FINDINGS: CHEST: Thoracic aorta: Mild arch calcification. No significant dilation. Lung parenchyma and airways: Peripheral reticular and groundglass opacities, with areas of fibrosis, consistent with chronic interstitial lung disease in a NSIP pattern. Thoracic inlet, axillae and chest wall: No thyroid or soft tissue mass. No axillary lymphadenopathy. Mediastinum: Borderline enlarged mediastinal lymph nodes, slightly smaller than the prior study. Pulm onary arterial enlargement as can be seen with pulmonary arterial hypertension. Heart and pericardium: Cardiomegaly. No pericardial effusion. Mild aortic valve calcification. Coronary artery calcifications: Absent. Pleura: No effusion or mass. Upper abdomen: No significant finding. Thoracic bones: Nondisplaced left fifth through seventh anterior rib fractures. No other acute osseou s finding. Nonaggressive appearing lytic lesion in the right manubrium, possibly representing an intr aosseous hemangioma. IMPRESSION: Nondisplaced left fifth through seventh anterior rib fractures. No other acute osseous or intrathorac ic finding. Reviewed, dictated and finalized at location K. IMPRESSION: Nondisplaced left fifth through seventh anterior rib fractures. No other acute osseous or intrathoracic finding.
--- NOTE | ~2022-05-22 | XR_ITS ---
EXAMINATION: XR hip BI 2V w AP pelvis DATE: 05/23/2022 11:33 INDICATION: Left hip pain TECHNIQUE: AP view of the pelvis and three views of left hip were obtained. COMPARISON: 03/23/2021 FINDINGS: Bone alignment is normal. There is no fracture. There is advanced osteoarthritis of the hip s. The soft tissues are unremarkable. IMPRESSION: 1. Advanced osteoarthritis of the hips without acute osseous abnormality. Reviewed, dictated and finalized at location A.
[2022-05-22 20:34] VITALS: BP 148/72; PULSE 75; RESP 22; TEMP 37.1; O2SAT 97
--- NOTE | 2022-05-22 20:52 | ECG_ITS ---
Measurements Intervals [place] Rate: 82 P: NE: 0 QRS: -17 QRSD: 123 T: 56 QT: 365 QTc: 427 Interpretive Statements ATRIAL FIBRILLATION VOLTAGE CRITERIA FOR LVH [MEETS CRITERIA IN ONE OF: R(aVL), S(V1), R(V5), R(V5/V6)+S(V1)] NONSPECIFIC ST CHANGES COMPARED TO ECG 12/29/2021 11:13:35 NO SIGNIFICANT CHANGES Electronically Signed On 05-23-2022 12:40:44 CDT by Romy Price M.D.
--- NOTE | 2022-05-22 20:53 | ED.SOB ---
HPI - SOB/Dyspnea General Chief Complaint: Shortness of Breath/Dyspnea Stated Complaint: SOB s/p fall w/ rib pain Time Seen by Provider: 05/22/22 20:35 History of Present Illness HPI Narrative: pt says 3 days ago stretched too far to reach something pain left ribs then last niht fell out of bed onto left ribs hurting the same area that was already sore, says wears oxygen 2-4l but 2 not working so on 3 now at rest b/c since injury more sob says all immun utd and no travel/sick contacts other cp nv//d/sweating/f/c/abd pain/neuro cahgnes no meds but tylenol for pain. says cough but has this on/off not sure if changing. has leg swelling and bruising due to the blood thinner. says all more with rom left rib pain and sob started after, reviewing records bnp often elevated but EF 55-60% last echo dx chf and chronic lung issues Related Data Home Medications Medication Instructions Recorded Confirmed hydroxychloroquine 200 mg tablet 400 mg PO DAILY 01/27/20 01/18/22 calcium carbonate 600 mg-vitamin 1 tablet PO BID 02/16/21 01/18/22 D3 20 mcg (800 unit) chewable tablet (Caltrate 600 plus D) apixaban 5 mg tablet (Eliquis) 5 mg PO BID 10/02/21 01/18/22 acetaminophen 500 mg tablet 1,000 mg PO .Q8 PRN Fever 10/11/21 01/18/22 (Tylenol Extra Strength) cholecalciferol (vitamin D3) 25 25 mcg PO DAILY 10/11/21 01/18/22 mcg (1,000 unit) capsule prednisone 10 mg tablet 15 mg PO DAILY 11/10/21 12/29/21 furosemide 40 mg tablet 60 mg PO DAILY 05/17/22 ipratropium bromide 0.02 % 0.5 mg inhalation Q6HRT PRN 05/17/22 solution for inhalation Allergies Allergy/AdvReac Type Severity Reaction Status Date / Time No Known Allergies Allergy Verified 05/17/22 08:30 Review of Systems Constitutional: Comments: CONSTITUTIONAL: Denies fever, chills, or sweats. EYES: Denies visual changes, redness, or discharge. ENT: Denies rhinorrhea, congestion, sore throat, or otalgia. CARDIOVASCULAR: Denies chest pain, palpitations, or edema. RESPIRATORY: has chronic cough on/off ? worse with the sob since injuring left ribs 3 days ago then again today GASTROINTESTINAL: Denies abdominal pain, nausea, vomiting, or diarrhea. GENITOURINARY: Denies dysuria or hematuria. SKIN: Denies rash or itching. MUSCULOSKELETAL: Denies back pain, joint pain, or myalgia. NEUROLOGIC: Denies headache, numbness, or weakness. PSYCHIATRIC: Denies anxiety or depression. [facility] Past Medical History Medical History Acute on chronic respiratory failure with hypoxemia Afib Bruit CHF (congestive heart failure) Chronic diastolic CHF (congestive heart failure) Chronic respiratory failure Degenerative joint disease of right hip Diverticulosis DJD (degenerative joint disease), multiple sites DVT (deep venous thrombosis) 2004 Essential (primary) hypertension Hearing loss History of pulmonary embolus (PE) HLD (hyperlipidemia) Hypertension Hypomagnesemia Hypothyroid Impaired glucose tolerance Interstitial lung disease Morbid obesity Morbid obesity with BMI of 50.0-59.9, adult Nonspecific interstitial pneumonitis On home O2 STARR on CPAP STARR on CPAP Paroxysmal atrial fibrillation Personal history of DVT (deep vein thrombosis) Post menopausal syndrome Pre-diabetes Pulmonary embolism 2004 Pulmonary HTN Rheumatoid arthritis Screening for breast cancer Screening for colon cancer Screening for osteoporosis Shingles Sleep apnea Stress incontinence Trochanteric bursitis, right hip Unilateral primary osteoarthritis, right knee (05/15/17) UTI (urinary tract infection) UTI due to extended-spectrum beta lactamase (ESBL) producing Escherichia coli Surgical History Surgical History H/O arthroscopic knee surgery rt knee H/O section H/O parathyroidectomy History of cardiac catheterization History of parathyroidectomy for hyperparathyroidism History of total bilater
[2022-05-22] MEDS: ALBUTEROL SULFATE NEB 2.5 MG/3 ML INH INHALATION (21:31)
[2022-05-22] MEDS: IPRATROPIUM BR 0.02% INH SOLN 0.5 MG/2.5 ML VIAL INHALATION (21:31)
[2022-05-22 21:32] VITALS: PULSE 83; RESP 27
[2022-05-22 21:37] LABS: Basophils Percent Auto 0.2 % (0.2-1.2); Hematocrit 37.1 % (37.0-47.0); Hemoglobin 11.6 g/dL (12.0-15.0); Immature Granulocyte Absolute 0.05 K/mm3 (0.00-0.031); Immature Granulocyte Percent A 0.5 % (0-0.5); Lymphocytes Absolute Auto 0.89 K/mm3 (0.9-3.2); Lymphocytes Percent Auto 9.3 % (18.3-44.2); Mean Corpuscular HGB Conc 31.3 g/dl (32-36); Mean Corpuscular Hemoglobin 31.2 pg (26-34); Mean Corpuscular Volume 99.7 fl (80-100); Mean Platelet Volume 9.4 fl (7.4-10.4); Monocytes Absolute Auto 0.8 K/mm3 (0.1-0.6); Monocytes Percent Auto 8.8 % (2.6-8.5); Neutrophils Absolute Auto 7.8 K/mm3 (1.3-6.7); Neutrophils Percent Auto 81.2 % (45.5-73.1); Platelet Count Result 196 k/mm3 (150-375); Red Blood Count 3.72 M/mm3 (4.2-5.4); Red Cell Distribution Width 13.4 % (11.5-14.5); White Blood Count 9.6 K/mm3 (4.5-10.0)
[2022-05-22] MEDS: ONDANSETRON INJ 4 MG/2 ML VIAL IV PUSH (21:37)
[2022-05-22] MEDS: fentaNYL CITRATE INJ (*CRX) 100 MCG/2 ML VIAL 50 MCG IV PUSH (21:37)
[2022-05-22] MEDS: CYCLOBENZAPRINE HCL 10 MG TABLET PO (21:38)
[2022-05-22 21:39] LABS: Alveolar/Arterial O2 Gradient 109.9 mmHg; Fractional Inspired Oxygen 36 %; HCO3 ABG 23.4 mEq/l (22.0-26.0); Oxygen Content ABG 16.6 %vol (16.0-22.0); Oxygen Saturation ABG 98.2 % (95.0-100.0); Oxyhemoglobin 97.4 % THb (90.0-100.0); PO2 ABG 107.3 mmHg (80.0-100.0); PO2 FiO2 Ratio Arterial Blood 2.98 %; pH ABG 7.456 (7.350-7.450)
[2022-05-22 21:40] LABS: Device NASAL CANNULA; Modified Allen's Test Pass; Site Drawn LEFT RADIAL
[2022-05-22 21:43] VITALS: O2SAT 100
[2022-05-22 21:45] VITALS: PULSE 87; RESP 18
[2022-05-22 21:48] LABS: INR 1.5; Partial Thromboplastin Time 30.6 SECONDS (22.3-36.8); Prothrombin Time 17.7 Seconds (11.1-14.7)
[2022-05-22 21:49] LABS: Alanine Aminotransferase 22 U/L (6-35); Albumin Level 3.9 g/dL (3.5-5.1); Alkaline Phosphatase 143 U/L (38-126); Anion Gap 6 mmol/L (8-16); Aspartate Amino Transferase 36 U/L (14-36); Bilirubin,Total 0.4 mg/dL (0.2-1.3); Blood Urea Nitrogen 44 mg/dL (7-17); Calcium 9.7 mg/dL (8.4-10.2); Carbon Dioxide 27 mmol/L (22-30); Chloride 102 mmol/L (98-107); Estimated CRCL calculation 40 ml/min; Estimated Glomerular Filt Rate 40; Glucose 77 mg/dL (65-110); Magnesium 1.9 mg/dL (1.6-2.3); Potassium 4.3 mmol/L (3.4-5.0); Sodium 135 mmol/L (137-145)
[2022-05-22 21:58] LABS: NT Pro B Type Natriuretic Pept 1860 pg/mL (5-100)
[2022-05-22 22:02] LABS: Troponin I 0.044 ng/mL (0.000-0.034)
[2022-05-22 22:23] LABS: Influenza A QL RT-PCR Negative (Negative); Influenza B QL RT-PCR Negative (Negative); SARS-CoV-2 RNA PCR Positive
[2022-05-22] MEDS: traMADol HCL (*CRX) 50 MG TABLET PO (23:25)
[2022-05-22] MEDS: NITROGLYCERIN OINTMENT 1 INCH DOSE TRANSDERM (23:25)
[2022-05-22] MEDS: FUROSEMIDE INJ 100 MG/10 ML VIAL 80 MG IV PUSH (23:25)
[2022-05-22 23:32] VITALS: BP 128/71; PULSE 75; RESP 26; O2SAT 98
[2022-05-23] VITALS (18 sets, daily range): BP systolic 104–154; BP diastolic 48–93; PULSE 60–94; RESP 20–22; TEMP 36.2–36.6; O2SAT 94–100; BMI 47.2
[2022-05-23 00:16] LABS: Appearance Urine Cloudy (Clear); Bilirubin Urine Negative (Negative); Blood Urine 3+ (Negative); Color Urine Amber (Yellow); Glucose Urine UA Negative (Negative); Ketones Urine Negative (Negative); Leukocyte Esterase Ur 1+ LEU/UL (Negative); Nitrate Urine Negative (Negative); Protein Urine 2+ mg/dL (Negative); Specific Grav Ur 1.025 (1.001-1.035); Urobilinogen Urine 0.2 mg/dL (<2.0); pH Urine 7.5 (5.0-9.0)
[2022-05-23 00:20] LABS: Bacteria Urine 4+ /hpf; Mucus Urine Rare /lpf; RBC Urine 21-50 /hpf (0-2); WBC Urine 21-30 /hpf
[2022-05-23 00:23] LABS: Add Urine Microscopic? YES
--- NOTE | 2022-05-23 03:04 | ADMGEN ---
This patient, Ayanna Cash, was admitted to IMU Room 201-01 at 0030 on 05/23/2022. Patient/family oriented to hospital policies and general routines including ID bracelet, bed and alarms, visiting hours, pain management, procedures, bathroom and other care routines, personal items, smoking policy, room service/diet, and visiting hours. Information on how to activate the Rapid Response Team has been discussed. Patient/Family are encouraged to report perceived risks to care and to ask questions if they do not understand what they are told or what they should do.
[2022-05-23 04:43] LABS: Hematocrit 36.1 % (37.0-47.0); Hemoglobin 11.2 g/dL (12.0-15.0); Mean Corpuscular Hemoglobin 31.1 pg (26-34); Mean Corpuscular Volume 100.3 fl (80-100); Mean Platelet Volume 9.8 fl (7.4-10.4); Platelet Count Result 177 k/mm3 (150-375); Red Cell Distribution Width 13.4 % (11.5-14.5)
[2022-05-23 04:59] LABS: Anion Gap 8 mmol/L (8-16); Blood Urea Nitrogen 40 mg/dL (7-17); Calcium 9.5 mg/dL (8.4-10.2); Carbon Dioxide 29 mmol/L (22-30); Chloride 96 mmol/L (98-107); Estimated CRCL calculation 38 ml/min; Estimated Glomerular Filt Rate 37; Glucose 80 mg/dL (65-110); Potassium 3.6 mmol/L (3.4-5.0); Sodium 133 mmol/L (137-145)
[2022-05-23 05:06] LABS: Troponin I 0.052 ng/mL (0.000-0.034)
[2022-05-23] MEDS: HYDROmorphone HCL INJ (*CRX) 1 MG/ML SYR IV PUSH (06:34)
--- NOTE | 2022-05-23 09:52 | PM.IMHP ---
H&P: HPI History of Present Illness Date/Time: 05/23/22 09:52 Chief Complaint: Shortness of breath Narrative: 72yo female with hx of CHF, chronic respiratory failure, chronic AFib and STARR here for shortness of breath. Patient is normally on 2 L at rest and 4 L with exertion. She is on chronic oxygen for CHF. She is a lifelong nonsmoker. She watches her SpO2 at home and if it remains normal at rest sometimes she even goes times without oxygen. She has sleep apnea and is compliant with her CPAP. About 2-3 days ago patient while reaching for something pulled some muscles in the left side of her chest. She has been taking Tylenol with benefit. The night prior to admission, patient was adjusting herself in bed when she fell off her bed landing on the left side of her chest. She developed pain that was pleuritic in nature. It took 3 people to get her up off the floor. She denies any loss of consciousness or head injury. Chest chronic hip pain from her rheumatoid arthritis. If she ambulates with a walker and it is about 50 ft to her bathroom. She does have 14 stairs that she has to climb at bedtime. She has no history of osteoporosis that she is aware of but is on chronic prednisone for her rheumatoid arthritis. She denies any history of fractures. No history of cancer. Patient developed increasing shortness of breath. No fever or chills but was having a cough productive green sputum. She had COVID vaccine x2 and booster x1 with the last dose in August 2021. No sick contacts at home. She lives with her daughter who is been well. No headaches, vision changes, hearing changes, dysphagia, odynophagia, diaphoresis, nausea, vomiting, dysuria, hematuria, melena hematochezia. She has chronic orthopnea. She denies any PND. She has chronic bilateral leg edema does not think that is been significant change recently. She has nocturia x3 with this seems to be chronic. She does have intermittent diarrhea but that is longstanding. Due to the increasing shortness of breath, patient presented to the ED for evaluation. In the emergency room, patient was hemodynamically stable. Patient was 97% on 3 L. white count was normal. ABG 7.46/34/107 on 4 L. BUN 44 with creatinine 1.3. BNP was 1860. Troponin was elevated to 0.05 tube overall flat. UA consistent with UTI. EKG shows atrial fibrillation with rate of 82 with poor R progression and LVH. No significant change from EKG in December. CT the chest showed nondisplaced left 5th through 7th anterior rib fractures. She had ground-glass opacities with areas of fibrosis consistent with ILD. She was treated with fentanyl, Dilaudid, nitropaste, tramadol, Lasix, Flexeril and neb treatments. She was admitted for further care. Review of Systems Review of Systems: All systems reviewed & are unremarkable except as noted in HPI and below PMFSH Past Medical History Medical History (Updated 05/23/22 @ 10:10 by Álvaro Encians MD) Afib Chronic diastolic CHF (congestive heart failure) Chronic respiratory failure Degenerative joint disease of right hip Diverticulosis DJD (degenerative joint disease), multiple sites DVT (deep venous thrombosis) 2004 Essential (primary) hypertension Hearing loss HLD (hyperlipidemia) Hypomagnesemia Hypothyroid Interstitial lung disease Morbid obesity Nonspecific interstitial pneumonitis STARR on CPAP Paroxysmal atrial fibrillation Post menopausal syndrome Pre-diabetes Pulmonary embolism 2004 Pulmonary HTN Rheumatoid arthritis Screening for breast cancer Screening for colon cancer Screening for osteoporosis Shingles Stress incontinence Trochanteric bursitis, right hip Unilateral primary osteoarthritis, right knee (05/15/17) UTI due to extended-spectrum beta lactamase (ESBL) producing Escherichia coli Surgical History Surgical History H/O arthroscopic knee surgery rt knee H/O section H/O para
[2022-05-23 11:07] LABS: INR 1.3; Prothrombin Time 15.7 Seconds (11.1-14.7)
[2022-05-23 11:16] LABS: Alanine Aminotransferase 18 U/L (6-35); Estimated CRCL calculation 36 ml/min; Estimated Glomerular Filt Rate 34
[2022-05-23] MEDS: REMDESIVIR 200 MG/NS 250 ML 200 MG/250 ML BAG 250 MG IVPB (11:53)
[2022-05-23] MEDS: FUROSEMIDE 20 MG TABLET 60 MG PO (11:53)
[2022-05-23] MEDS: METOPROLOL SUCCINATE EXT REL 100 MG TABCR PO (11:54)
[2022-05-23] MEDS: DULoxetine HCL 20 MG CAPSULE.DR PO (11:54)
[2022-05-23] MEDS: APIXABAN 5 MG TABLET PO ×2 (11:54→16:15)
[2022-05-23] MEDS: PRAVASTATIN SODIUM 20 MG TABLET 80 MG PO (11:55)
[2022-05-23] MEDS: METOPROLOL SUCCINATE EXT REL 25 MG TABCR PO (11:55)
[2022-05-23] MEDS: POTASSIUM CHLORIDE 10 MEQ TABLET.ER PO ×2 (12:00→16:15)
[2022-05-23 13:00] LABS: Glucose Point of Care 107 mg/dl (65-105)
[2022-05-23] MEDS: traMADol HCL (*CRX) 50 MG TABLET PO ×2 (13:28→21:12)
[2022-05-23 17:04] LABS: Glucose Point of Care 139 mg/dl (65-105)
[2022-05-24] VITALS (13 sets, daily range): BP systolic 107–134; BP diastolic 72–82; PULSE 65–89; RESP 16–22; TEMP 36–36.6; O2SAT 20–100
[2022-05-24 05:00] LABS: Hemoglobin 10.7 g/dL (12.0-15.0); Immature Granulocyte Absolute 0.02 K/mm3 (0.00-0.031); Immature Granulocyte Percent A 0.4 % (0-0.5); Lymphocytes Absolute Auto 1.06 K/mm3 (0.9-3.2); Lymphocytes Percent Auto 19.7 % (18.3-44.2); Mean Corpuscular HGB Conc 32.4 g/dl (32-36); Mean Corpuscular Hemoglobin 31.5 pg (26-34); Mean Corpuscular Volume 97.1 fl (80-100); Mean Platelet Volume 9.8 fl (7.4-10.4); Monocytes Absolute Auto 0.6 K/mm3 (0.1-0.6); Monocytes Percent Auto 11.3 % (2.6-8.5); Neutrophils Absolute Auto 3.7 K/mm3 (1.3-6.7); Neutrophils Percent Auto 68.6 % (45.5-73.1); Platelet Count Result 171 k/mm3 (150-375); Red Cell Distribution Width 13.3 % (11.5-14.5); White Blood Count 5.4 K/mm3 (4.5-10.0)
[2022-05-24 05:11] LABS: INR 1.3; Prothrombin Time 16.1 Seconds (11.1-14.7)
[2022-05-24 05:18] LABS: Alanine Aminotransferase 18 U/L (6-35); Albumin Level 3.5 g/dL (3.5-5.1); Alkaline Phosphatase 122 U/L (38-126); Anion Gap 6 mmol/L (8-16); Aspartate Amino Transferase 32 U/L (14-36); Bilirubin,Total 0.3 mg/dL (0.2-1.3); Blood Urea Nitrogen 48 mg/dL (7-17); Calcium 8.8 mg/dL (8.4-10.2); Carbon Dioxide 27 mmol/L (22-30); Chloride 99 mmol/L (98-107); Estimated CRCL calculation 39 ml/min; Estimated Glomerular Filt Rate 37; Glucose 90 mg/dL (65-110); Magnesium 1.8 mg/dL (1.6-2.3); Phosphorus 4.5 mg/dL (2.5-4.5); Potassium 3.8 mmol/L (3.4-5.0); Sodium 132 mmol/L (137-145)
[2022-05-24] MEDS: LEVOTHYROXINE SODIUM 112 MCG TABLET PO (05:31)
[2022-05-24 08:45] LABS: Glucose Point of Care 92 mg/dl (65-105)
[2022-05-24] MEDS: APIXABAN 5 MG TABLET PO ×2 (09:10→17:12)
[2022-05-24] MEDS: POTASSIUM CHLORIDE 10 MEQ TABLET.ER PO ×3 (09:10→17:12)
[2022-05-24] MEDS: DULoxetine HCL 20 MG CAPSULE.DR PO (09:10)
[2022-05-24] MEDS: CYANOCOBALAMIN 1,000 MCG TABLET 1000 MCG PO (09:11)
[2022-05-24] MEDS: METOPROLOL SUCCINATE EXT REL 25 MG TABCR PO (09:11)
[2022-05-24] MEDS: PRAVASTATIN SODIUM 20 MG TABLET 80 MG PO (09:11)
[2022-05-24] MEDS: METOPROLOL SUCCINATE EXT REL 100 MG TABCR PO (09:11)
[2022-05-24] MEDS: CHOLECALCIFEROL 1,000 UNITS TABLET 1000 UNITS PO (09:11)
[2022-05-24] MEDS: FUROSEMIDE 20 MG TABLET 60 MG PO (09:11)
[2022-05-24] MEDS: traMADol HCL (*CRX) 50 MG TABLET PO ×2 (09:11→17:12)
[2022-05-24] MEDS: REMDESIVIR 100 MG/NS 250 ML 100 MG/250 ML BAG 250 MG IVPB (10:59)
[2022-05-24] MEDS: CHOLESTYRAMINE (W/ SUGAR) 4 GM POWD.PACK PO (10:59)
--- NOTE | 2022-05-24 12:16 | PM.IMPN ---
Progress Note: A&P Assessment and Plan (1) Acute and chronic respiratory failure with hypoxia: Code(s): J96.21 - Acute and chronic respiratory failure with hypoxia Status: Acute Assessment and Plan: Patient presents emergency room with complaints of shortness of breath. Noncontrast CT chest does not reveal significant pulmonary edema. BNP is elevated at 1860. She does have basilar crackles but she does also have interstitial lung disease which could explain this clinical finding. Suspect that her mildly increase oxygen requirement is likely related to her rib fractures and possibly CHF exacerbation. She also has been tested positive for COVID. Influenza is negative. She did receive Lasix in the ED with good urine output. Creatinine has increased slightly however. We resumed her home Lasix and continue to monitor. Continue incentive spirometry. Sputum cx ordered. She has been weaned down to 2L at rest. Acute component has resolved. (2) COVID-19: Code(s): U07.1 - COVID-19 Status: Acute Assessment and Plan: As above. Patient has been vaccinated but last vaccine dose was 8 months ago. No obvious exposures. Unclear how long she has had COVID. She does have productive cough and was mildly hypoxic compared to baseline. Again this could be related to atelectasis from her rib fractures. She does have significant risk for progression however given her RA on immunosuppressive agents, ILD, chronic respiratory failure and CHF. And it is unclear how long she has been positive. Because of this reason we proceeded with remdesivir and dexamethasone. Oxygen requirement has improved. (3) Rib fractures: Qualifiers: Qualified Code(s): S22.42XA - Multiple fractures of ribs, left side, initial encounter for closed fracture Code(s): S22.49XA - Multiple fractures of ribs, unspecified side, initial encounter for closed fracture Status: Acute Assessment and Plan: Imaging showing nondisplaced left 5th through 7th anterior rib fractures. Continue supportive care pain medications. ContinuePT/OT. (4) Fall: Code(s): W19.XXXA - Unspecified fall, initial encounter Status: Acute Assessment and Plan: Patient was adjusting herself in bed and fell landing on her left side. She denies any head injury or head trauma. No findings on exam. Given the difficulty of her hip exam, we checked pelvic and femoral head x-rays but no fracture. They do show severe OA. Patient states she is not a surgical candidate. Continue PT and OT. (5) Chronic diastolic CHF (congestive heart failure): Code(s): I50.32 - Chronic diastolic (congestive) heart failure Status: Acute Assessment and Plan: Patient has elevated BNP but feel acute CHF less likely given the CT of the chest showing ILD but no pulmonary edema. Continue oral Lasix and metoprolol. Monitor renal function closely. (6) Elevated troponin I level: Code(s): R77.8 - Other specified abnormalities of plasma proteins Status: Acute Assessment and Plan: Troponin mildly elevated but flat. More likely related to either mild cardiac contusion from her fall or from her worsening respiratory failure. Acute coronary syndrome less likely. (7) UTI (urinary tract infection): Qualifiers: Urinary tract infection type: site unspecified Hematuria presence: without hematuria Qualified Code(s): N39.0 - Urinary tract infection, site not specified Code(s): N39.0 - Urinary tract infection, site not specified Status: Acute Assessment and Plan: UA noted. History of UTIs. Urine culture pending. Old urine culture results noted. BCx pending as well. Continue Rocephin. Will hold her trimethoprim for now. (8) Afib: Code(s): I48.91 - Unspecified atrial fibrillation Status: Acute Assessment and Plan: Patient with chronic atrial fibrillation. Continue
[2022-05-24 12:40] LABS: Glucose Point of Care 121 mg/dl (65-105)
[2022-05-24 16:53] LABS: Glucose Point of Care 130 mg/dl (65-105)
--- NOTE | 2022-05-24 17:34 | PC.NURSE ---
This patient, Ayanna Cash, was transferred to [[id number] ] on 05/24/22 at 1734. Personal belongings sent with patient. Report given to [Magdalena]. Appropriate documentation sent with patient.
[2022-05-24 21:38] LABS: Glucose Point of Care 114 mg/dl (65-105)
[2022-05-25] VITALS (14 sets, daily range): BP systolic 116–134; BP diastolic 53–78; PULSE 54–106; RESP 16–20; TEMP 35.7–36.9; O2SAT 97–98
[2022-05-25] MEDS: traMADol HCL (*CRX) 50 MG TABLET PO ×2 (01:05→11:56)
[2022-05-25] MEDS: LEVOTHYROXINE SODIUM 112 MCG TABLET PO (05:36)
[2022-05-25 06:44] LABS: Hematocrit 33.6 % (37.0-47.0); Hemoglobin 10.6 g/dL (12.0-15.0); Mean Corpuscular HGB Conc 31.5 g/dl (32-36); Mean Corpuscular Hemoglobin 30.7 pg (26-34); Mean Corpuscular Volume 97.4 fl (80-100); Mean Platelet Volume 9.8 fl (7.4-10.4); Platelet Count Result 165 k/mm3 (150-375); Red Blood Count 3.45 M/mm3 (4.2-5.4); Red Cell Distribution Width 13.1 % (11.5-14.5); White Blood Count 4.7 K/mm3 (4.5-10.0)
[2022-05-25 06:59] LABS: INR 1.3; Prothrombin Time 15.4 Seconds (11.1-14.7)
[2022-05-25 07:02] LABS: Alanine Aminotransferase 17 U/L (6-35); Anion Gap 4 mmol/L (8-16); Blood Urea Nitrogen 46 mg/dL (7-17); Calcium 8.9 mg/dL (8.4-10.2); Carbon Dioxide 29 mmol/L (22-30); Chloride 99 mmol/L (98-107); Estimated CRCL calculation 49 ml/min; Estimated Glomerular Filt Rate 49; Glucose 85 mg/dL (65-110); Potassium 3.9 mmol/L (3.4-5.0); Sodium 132 mmol/L (137-145)
[2022-05-25 07:51] LABS: Glucose Point of Care 83 mg/dl (65-105)
[2022-05-25] MEDS: POTASSIUM CHLORIDE 10 MEQ TABLET.ER PO ×3 (09:04→17:17)
[2022-05-25] MEDS: METOPROLOL SUCCINATE EXT REL 100 MG TABCR PO (09:04)
[2022-05-25] MEDS: DULoxetine HCL 20 MG CAPSULE.DR PO (09:04)
[2022-05-25] MEDS: FUROSEMIDE 20 MG TABLET 60 MG PO (09:05)
[2022-05-25] MEDS: CHOLECALCIFEROL 1,000 UNITS TABLET 1000 UNITS PO (09:05)
[2022-05-25] MEDS: APIXABAN 5 MG TABLET PO ×2 (09:06→17:18)
[2022-05-25] MEDS: METOPROLOL SUCCINATE EXT REL 25 MG TABCR PO (09:06)
[2022-05-25] MEDS: PRAVASTATIN SODIUM 20 MG TABLET 80 MG PO (09:07)
[2022-05-25] MEDS: CHOLESTYRAMINE (W/ SUGAR) 4 GM POWD.PACK PO (10:01)
[2022-05-25] MEDS: REMDESIVIR 100 MG/NS 250 ML 100 MG/250 ML BAG 250 MG IVPB (10:01)
[2022-05-25 11:35] LABS: Glucose Point of Care 104 mg/dl (65-105)
--- NOTE | 2022-05-25 14:46 | PM.IMPN ---
Progress Note: A&P Assessment and Plan (1) Acute and chronic respiratory failure with hypoxia: Code(s): J96.21 - Acute and chronic respiratory failure with hypoxia Status: Acute Assessment and Plan: Patient presents emergency room with complaints of shortness of breath. Noncontrast CT chest does not reveal significant pulmonary edema. BNP is elevated at 1860. She does have basilar crackles but she does also have interstitial lung disease which could explain this clinical finding. Suspect that her mildly increase oxygen requirement is likely related to her rib fractures and possibly CHF exacerbation. She also has tested positive for COVID. Influenza was negative. She did receive Lasix in the ED with good urine output. Creatinine increased slightly but better now. Continue home Lasix dosing. Continue incentive spirometry. Sputum cx pending. Continue to follow. (2) COVID-19: Code(s): U07.1 - COVID-19 Status: Acute Assessment and Plan: As above. Patient has been vaccinated but last vaccine dose was 8 months ago. No obvious exposures. Unclear how long she has had COVID. She does have productive coughthat has improved. She was mildly hypoxic compared to baseline. Again this could be related to atelectasis from her rib fractures and/or CHF. She does have significant risk for progression however given her RA on immunosuppressive agents, ILD, chronic respiratory failure and CHF. Unclear how long she has been positive so for this reason, we proceeded with remdesivir and dexamethasone. Oxygen requirement has improved. If remains stable next 24 hours, will plan discharge tomorrow. (3) Rib fractures: Qualifiers: Qualified Code(s): S22.42XA - Multiple fractures of ribs, left side, initial encounter for closed fracture Code(s): S22.49XA - Multiple fractures of ribs, unspecified side, initial encounter for closed fracture Status: Acute Assessment and Plan: Imaging showing nondisplaced left 5th through 7th anterior rib fractures. Continue supportive care and pain medications. Continue PT/OT. (4) Fall: Code(s): W19.XXXA - Unspecified fall, initial encounter Status: Acute Assessment and Plan: Patient was adjusting herself in bed and fell landing on her left side. She denies any head injury or head trauma. Pelvic and femoral head x-rays negative for fracture but does show severe OA. Patient states she is not a surgical candidate for hip surgery. Continue PT and OT. (5) Chronic diastolic CHF (congestive heart failure): Code(s): I50.32 - Chronic diastolic (congestive) heart failure Status: Acute Assessment and Plan: Patient has elevated BNP but feel acute CHF less likely given the CT of the chest showing ILD but no pulmonary edema. She did receive Lasix in the ED but continue on oral Lasix since admission. We have continued her metoprolol as well. Renal function stable. (6) Elevated troponin I level: Code(s): R77.8 - Other specified abnormalities of plasma proteins Status: Acute Assessment and Plan: Troponin mildly elevated but flat. More likely related to either mild cardiac contusion from her fall or from her worsening respiratory failure. Acute coronary syndrome less likely. (7) UTI (urinary tract infection): Qualifiers: Urinary tract infection type: site unspecified Hematuria presence: without hematuria Qualified Code(s): N39.0 - Urinary tract infection, site not specified Code(s): N39.0 - Urinary tract infection, site not specified Status: Acute Assessment and Plan: UA noted. History of UTIs. Urine culture positive and Rocephin started. BCx NGTD. UCx growing Klebsiella sensitive to Rocephin. Continue Rocephin. Will hold her trimethoprim for now. (8) Afib: Code(s): I48.91 - Unspecified atrial fibrillation Status: Acute Assessment and Plan: P
[2022-05-25 17:00] LABS: Glucose Point of Care 138 mg/dl (65-105)
[2022-05-26] VITALS (10 sets, daily range): BP systolic 123–150; BP diastolic 63–78; PULSE 53–76; RESP 14–20; TEMP 35.9–36.8; O2SAT 94–98
[2022-05-26] MEDS: traMADol HCL (*CRX) 50 MG TABLET PO (02:53)
[2022-05-26] MEDS: LEVOTHYROXINE SODIUM 112 MCG TABLET PO (05:41)
[2022-05-26 06:27] LABS: Albumin Level 3.4 g/dL (3.5-5.1); Anion Gap 5 mmol/L (8-16); Blood Urea Nitrogen 49 mg/dL (7-17); Carbon Dioxide 28 mmol/L (22-30); Chloride 101 mmol/L (98-107); Estimated CRCL calculation 42 ml/min; Estimated Glomerular Filt Rate 40; Glucose 86 mg/dL (65-110); Magnesium 1.8 mg/dL (1.6-2.3); Phosphorus 3.5 mg/dL (2.5-4.5); Potassium 4.1 mmol/L (3.4-5.0); Sodium 134 mmol/L (137-145)
[2022-05-26 06:28] LABS: INR 1.3; Prothrombin Time 15.8 Seconds (11.1-14.7)
[2022-05-26 07:56] LABS: Glucose Point of Care 85 mg/dl (65-105)
[2022-05-26] MEDS: PRAVASTATIN SODIUM 20 MG TABLET 80 MG PO (09:10)
[2022-05-26] MEDS: METOPROLOL SUCCINATE EXT REL 100 MG TABCR PO (09:10)
[2022-05-26] MEDS: CHOLECALCIFEROL 1,000 UNITS TABLET 1000 UNITS PO (09:10)
[2022-05-26] MEDS: DULoxetine HCL 20 MG CAPSULE.DR PO (09:10)
[2022-05-26] MEDS: FUROSEMIDE 20 MG TABLET 60 MG PO (09:10)
[2022-05-26] MEDS: POTASSIUM CHLORIDE 10 MEQ TABLET.ER PO ×3 (09:11→16:45)
[2022-05-26] MEDS: METOPROLOL SUCCINATE EXT REL 25 MG TABCR PO (09:11)
[2022-05-26] MEDS: CYANOCOBALAMIN 1,000 MCG TABLET 1000 MCG PO (09:11)
[2022-05-26] MEDS: APIXABAN 5 MG TABLET PO ×2 (09:11→16:44)
[2022-05-26] MEDS: CHOLESTYRAMINE (W/ SUGAR) 4 GM POWD.PACK PO (10:21)
[2022-05-26] MEDS: REMDESIVIR 100 MG/NS 250 ML 100 MG/250 ML BAG 250 MG IVPB (10:39)
[2022-05-26 11:50] LABS: Glucose Point of Care 124 mg/dl (65-105)
--- NOTE | 2022-05-26 12:50 | PM.DS ---
DS: Admitting Diagnosis Discharge Date 05/26/22 Admitting Diagnosis Shortness of breath DS: Discharge Diagnosis Discharge Diagnosis (1) Acute and chronic respiratory failure with hypoxia: Code(s): J96.21 - Acute and chronic respiratory failure with hypoxia Status: Acute Assessment and Plan: Patient presents emergency room with complaints of shortness of breath. Noncontrast CT chest does not reveal significant pulmonary edema. BNP is elevated at 1860. She does have basilar crackles but she does also have interstitial lung disease which could explain this clinical finding. Suspect that her mildly increase oxygen requirement is likely related to her rib fractures and possibly mild CHF exacerbation. She also has tested positive for COVID. Influenza was negative. She did receive Lasix in the ED with good urine output. Creatinine increased slightly but better now. Continue home Lasix dosing. Continue incentive spirometry. Sputum cx showing normal dale. She wear O2 at home at 2L at rest and 4L with exertion. Here she has been on 2-3L here. Spoke with family who state she wears 4L throughout the day. Overall, it was not felt that she had worsening O2 requirement. (2) COVID-19: Code(s): U07.1 - COVID-19 Status: Acute Assessment and Plan: As above. Patient has been vaccinated but last vaccine dose was 8 months ago. No obvious exposures. Unclear how long she has had COVID. She does have productive coughthat has improved. She may have been mildly hypoxic compared to baseline but unclear (see above). Again this could be related to atelectasis from her rib fractures and/or CHF. She does have significant risk for progression from COVID however given her RA on immunosuppressive agents, ILD, chronic respiratory failure and CHF. Unclear how long she has been positive so for this reason, we proceeded with remdesivir and dexamethasone. Oxygen requirement remaining stable. CXR repeated at time of discharge and showing mostly unchanged (discussed with radiologist who felt maybe slight increase in the pulmonary vessels). Clinically she is stable on her current O2 and no pitting pedal edema and no change in lung disease and cumulative I/O was negative so overall doubt CHF. Will discharge home today. Should be mentioned that she is ambulating only short distances. She was strongly encouraged to consider SNF. She refuses. She voices understanding of the high risk of falls and rehospitalization. Spoke with dtr (with patient permission) and expressed our concerns about patient being discharged home. They requested delay discharge until tomorrow but explained that one more day will not make a significant change. (3) Rib fractures: Qualifiers: Qualified Code(s): S22.42XA - Multiple fractures of ribs, left side, initial encounter for closed fracture Code(s): S22.49XA - Multiple fractures of ribs, unspecified side, initial encounter for closed fracture Status: Acute Assessment and Plan: Patient with fall prior to admission. Imaging showing nondisplaced left 5th through 7th anterior rib fractures. Treated with supportive care and pain medications. She worked with PT/OT. Home with home health. (4) Fall: Code(s): W19.XXXA - Unspecified fall, initial encounter Status: Acute Assessment and Plan: Patient was adjusting herself in bed and fell landing on her left side. She denies any head injury or head trauma. Pelvic and femoral head x-rays negative for fracture but does show severe OA. Patient states she is not a surgical candidate for hip surgery. Home health at discharge (5) Chronic diastolic CHF (congestive heart failure): Code(s): I50.32 - Chronic diastolic (congestive) heart failure Status: Acute Assessment and Plan: Patient has elevated BNP but feel acute CHF less likely given the CT of the chest showing ILD but no pulmonary edema. She did receive L
[2022-05-26 16:38] LABS: Glucose Point of Care 143 mg/dl (65-105)
--- NOTE | 2022-05-26 17:44 | PCCCNOTE ---
Phone call received from Rajinder Watson RN stating that family does not want patient to go to [facility] and they have reached out to [facility] in [place] for admission and they need a referral. Called to [facility] and spoke with Noreen she does confirm that family has called her. Asked if she knew that patient is COVID + on 05/22, she states that she will have to look at referral and talk to DON facility. Fax'd referral as requested. Phone call received from Noreen 10 minutes later stating that they cannot accept due to +COVID status. Called to patient's daughter, Mae and notified that [facility] cannot accept due to + COVID. Explained to daughter that we have an accepting facility for +COVID and a discharge order, the best is to get her admitted to [facility] and she and family can certainly call other facilities and if able to find accepting then they can work to have transferred from [facility] at that time. Mae verbalizes understanding. Mae's email is [email or web address], internship coordinator emailed [facility] contact details to Mae at the email provided. high school history teacher Shirley updated.
[2022-05-27 14:16] LABS: Legionella pneumophila Ag Ur Not Detected (Not Detected)
--- NOTE | 2022-05-31 07:55 | PC.NURSE ---
Urine legionella Ag is negative. Sputum cx shows normal dale. Dr. Huang fleming.
--- NOTE | 2022-06-12 10:16 | PC.NURSE ---
Blood cx are negative. Dr. Huang lfeming.
== END 2022-05-26 19:20 | DRG 177 ==
LOC: ANHED 22:40 → ANHIMU 05-23 03:31 → ANH3MEDSUR 05-25 15:58 → ANHIMU 05-29 11:33
PROVIDERS: Admitting Provider Internal Medicine; Emergency Provider Emergency Medicine; PCP Internal Medicine; Visit Provider Internal Medicine
DX: U07.1 COVID-19 (principal); J96.21 Acute and chronic respiratory failure with hypoxia; S22.42XA Multiple fractures of ribs, left side, initial encounter for closed fracture; I50.32 Chronic diastolic (congestive) heart failure; N39.0 Urinary tract infection, site not specified; W19.XXXA Unspecified fall, initial encounter; E03.9 Hypothyroidism, unspecified; E78.5 Hyperlipidemia, unspecified; G47.33 Obstructive sleep apnea (adult) (pediatric); I48.0 Paroxysmal atrial fibrillation; E66.01 Morbid (severe) obesity due to excess calories; R73.03 Prediabetes; I27.20 Pulmonary hypertension, unspecified; Z86.711 Personal history of pulmonary embolism; Z87.440 Personal history of urinary (tract) infections; Z99.81 Dependence on supplemental oxygen; Z86.718 Personal history of other venous thrombosis and embolism; J84.89 Other specified interstitial pulmonary diseases; M06.9 Rheumatoid arthritis, unspecified; Z79.52 Long term (current) use of systemic steroids; Z79.899 Other long term (current) drug therapy
CPT/HCPCS: 36415; 36600; 51702; 71045; 71250; 73521; 80048; 80053; 80069; 81001; 82565; 82805; 82948; 83735; 83880; 84100; 84460; 84484; 85025; 85027; 85610; 85730; 87040; 87070; 87077; 87086; 87186; 87205; 87449; 87502; 93005; 94640; 97110; 97116; 97161; 97165; 97530; 99285; A9270; C9803; J0248; J0696; J1100; J1170; J1940; J2405; J3010; U0003; U0005

== ENCOUNTER 2022-07-21 12:40 | Inpatient (IN) | payer MEDICARE, SELFPAY ==
[2022-07-21] VITALS (18 sets, daily range): BP systolic 87–118; BP diastolic 49–60; PULSE 70–132; RESP 18–32; TEMP 36.1–36.8; O2SAT 96–100; BMI 45.9
--- NOTE | ~2022-07-21 | US_ITS ---
EXAMINATION: US renal BI DATE: 07/24/2022 09:26 INDICATION: Worsening kidney function. TECHNIQUE: Multiple ultrasound grayscale images of the kidneys were obtained. COMPARISON: CT abdomen 07/22/2022 FINDINGS: The right kidney measures 11.3 x 6.1 x 6.2 cm. The left kidney measures 12.1 x 5.2 x 6.3 cm. The kidn eys demonstrate normal parenchymal echogenicity. There is a 3.4 cm cyst in right kidney. There is no hydronephrosis. The bladder is decompressed. IMPRESSION: 1. Normal kidney sizes. No hydronephrosis. Reviewed, dictated and finalized at location A.
--- NOTE | ~2022-07-21 | XR_ITS ---
EXAMINATION: XR chest 1V portable INDICATION: Shortness of breath TECHNIQUE: Portable AP chest at 1349 hours COMPARISON: 05/26/2022 FINDINGS: Chronic reticular opacities persist throughout all lung zones with slight improvement since the comparison examination. Cardiomegaly is noted. No pleural effusion or pneumothorax. IMPRESSION: 1. No acute cardiopulmonary abnormality. Improved chronic interstitial lung disease. Reviewed, dictated and finalized at location A. IMPRESSION: 1. No acute cardiopulmonary abnormality. Improved chronic interstitial lung dis ease.
--- NOTE | ~2022-07-21 | XR_ITS ---
EXAMINATION: XR chest 1V portable INDICATION: Increased oxygen requirements TECHNIQUE: Portable AP chest at 2218 hours COMPARISON: 07/22/2022 FINDINGS: There are increasing airspace opacities in the mid and upper lung zone superimposed on a ba ckground of chronic interstitial lung disease. No pleural effusion or pneumothorax. Cardiomegaly is n oted. IMPRESSION: 1. Increasing opacities on a background of chronic interstitial lung disease, consistent with atelect asis versus pneumonia versus pulmonary edema. Reviewed, dictated and finalized at location A. IMPRESSION: 1. Increasing opacities on a background of chronic interstitial lung disease, c onsistent with atelectasis versus pneumonia versus pulmonary edema.
--- NOTE | ~2022-07-21 | CT_ITS ---
EXAMINATION: CT chest abdomen pelvis wo con DATE: 07/22/2022 16:11 INDICATION: Shortness of breath. Leukocytosis. TECHNIQUE: Computed tomography (CT) of the chest, abdomen, and pelvis was performed with 100 mL Omnip aque-350 intravenous contrast. Automated exposure control and iterative reconstruction technique were employed. The dose-length product was 1896.90 mGy-cm. COMPARISON: 05/22/2022 FINDINGS: CHEST CT: Bilateral peripheral and lower lung predominant coarse reticular and patchy groundglass with volume l oss and architectural distortion throughout both lungs consistent with chronic interstitial lung dise ase in nonspecific interstitial pneumonia (NSIP) pattern or usual interstitial pneumonia (UIP) patter n. Small pneumatocele in the right middle lobe. No pleural effusion or pneumothorax. Mild cardiomegal y. Small amount of aortic valve calcific location. No pericardial effusion. Thoracic aorta is normal in caliber. No pathologically enlarged thoracic lymphadenopathy. Moderate thoracic spondylosis. Relat ively recent-appearing T5 compression fracture with 40% anterior vertebral body height loss which is new since the prior study. Some callus formation associated with healing nondisplaced anterior left f ifth-seventh rib fractures. Chronic nonaggressive lytic lesion at the manubrium with peripheral thick ened trabecular pattern most likely hemangioma. ABDOMEN/PELVIS CT: Cholecystectomy clips the gallbladder fossa. Liver, spleen, pancreas and bilateral adrenal glands are normal. 3.4 cm right renal cyst. 10 x 5-6 mm obstructing stone in the distalmost left ureter approxi mately 1 cm from the ureterovesicular junction with mild to moderate left hydroureteronephrosis. Is a n additional 5 mm stone at a lower pole calyx of the left kidney. No right-sided urolithiasis. Margaux us scattered colonic diverticula without adjacent inflammatory change to suggest diverticulitis. No b owel obstruction. Paige catheter within the decompressed bladder. Uterus and bilateral adnexa are unr emarkable. No free intraperitoneal gas or fluid. No pathologically enlarged abdominal or pelvic lymph adenopathy. Moderate to severe lumbar spondylosis. Severe bilateral hip osteoarthritis. IMPRESSION: 1. Left nephrolithiasis including a 10 x 5-6 mm obstructing stone in the distalmost left ureter with mild to moderate left hydroureteronephrosis. Correlate with urinalysis to assess for ascending urinar y tract infection. 2. Stable appearance of diffuse bilateral chronic interstitial lung disease in either NSIP or UIP pat tern. 3. Mild cardiomegaly. 4. Acute to subacute T5 compression fracture with 40% anterior vertebral body height loss which is ne w since 05/22/2022. Reviewed, dictated and finalized at location A. IMPRESSION: 1. Left nephrolithiasis including a 10 x 5-6 mm obstructing stone in the distal most left ureter with mild to moderate left hydroureteronephrosis. Correlate wi urinalysis to assess for ascending urinary tract infection. 2. Stable appearance of diffuse bilateral chronic interstitial lung disease in either NSIP or UIP pattern. 3. Mild cardiomegaly. 4. Acute to subacute T5 compression fracture with 40% anterior vertebral body h eight loss which is new since 05/22/2022.
--- NOTE | ~2022-07-21 | XR_ITS ---
EXAM: XR shoulder RT min 2V, XR humerus RT DATE: 07/22/2022 13:49 (accession [id number]), 07/22/2022 13:48 (accession [id number]) HISTORY: general pain after fall . COMPARISON: None available. FINDINGS: Interstitial change in the visualized lung. Decreased mineralization. No fracture or dislo cation. No lytic or blastic lesion. Mild AC joint widening. No erosion or periosteal change. Soft tis sues within normal limits. IMPRESSION: Mild AC joint widening may reflect AC sprain. Reviewed, dictated and finalized at location K. IMPRESSION: Mild AC joint widening may reflect AC sprain.
--- NOTE | ~2022-07-21 | XR_ITS ---
EXAMINATION: XR retrograde pyelo w/stent LT DATE: 07/24/2022 08:16 INDICATION: Left ureteral stent placement TECHNIQUE: 5 fluoroscopic images of the abdomen and pelvis were obtained during procedure performed coni Calderon. Radiologist was not present for the imaging or procedure. The amount of fluoroscopy t yoselin used during this procedure was 0.3 minutes. COMPARISON: None. FINDINGS: Catheter and wire advanced into the left ureter. Retrograde contrast injections demonstrates at least mild left hydroureter. Final images demonstrate placement of a left internal ureteral stent with loo ps formed at the left renal pelvis and in the bladder. Ovoid density projecting alongside the distal stent level of the cephalad margin of the superior pubic ramus could represent the previous noted dis qiana left ureteral stone. The IMPRESSION: 1. At least mild left hydronephrosis with subsequent placement of a left internal ureteral stent in e xpected position. The line 2. Possible persistent distal left ureteral stone. Correlate with procedure note as to whether the st one was removed, dislodged or left in place. Reviewed, dictated and finalized at location A. IMPRESSION: 1. At least mild left hydronephrosis with subsequent placement of a left architect internship al ureteral stent in expected position. The line 2. Possible persistent distal left ureteral stone. Correlate with procedure not e as to whether the stone was removed, dislodged or left in place.
--- NOTE | ~2022-07-21 | XR_ITS ---
EXAMINATION: XR chest 1V portable DATE: 07/27/2022 06:01 INDICATION: Wheezing. TECHNIQUE: A single frontal view of the chest was obtained. COMPARISON: Chest single view 07/22/2022, chest CT 07/22/2022 FINDINGS: The lung volumes are small. There are interstitial opacities throughout the lungs bilateral ly, left worse than right. No pleural effusion or pneumothorax. Cardiomegaly is noted. Surgical clips in the right upper quadrant are likely from cholecystectomy. IMPRESSION: 1. Small lung volumes with a diffuse interstitial pattern with improvement on the right, consistent w ith chronic interstitial lung disease. 2. Cardiomegaly. Reviewed, dictated and finalized at location A. IMPRESSION: 1. Small lung volumes with a diffuse interstitial pattern with improvement on t he right, consistent with chronic interstitial lung disease. 2. Cardiomegaly.
--- NOTE | 2022-07-21 13:22 | ED.GENADULT ---
HPI - General Adult General Chief complaint: Shortness of Breath/Dyspnea Stated complaint: SOB Time Seen by Provider: 07/21/22 12:49 History of Present Illness HPI narrative: 72-year-old female with history of A. fib and congestive heart failure on 4 to 6 L of oxygen at all times presented the emergency department for evaluation of increased generalized fatigue and shortness of breath. Patient states symptoms started a few days ago. Patient did present to [facility] emergency department yesterday and sat in the waiting room for 6 hours. Patient states she has been having some diarrhea. Patient does take Eliquis, metoprolol, Lasix but states she has not had any of her home meds today. Related Data Home Medications Medication Instructions Recorded Confirmed Calcium 600-D3 Plus (mag-zinc) 1 tablet PO BID 07/21/22 07/21/22 abatacept 125 mg/mL subcutaneous 125 mg subcut WEEKLY 07/21/22 07/21/22 syringe (Orencia) acetaminophen 325 mg chewable 650 mg PO Q4-6H PRN Pain 07/21/22 07/21/22 tablet apixaban 5 mg tablet (Eliquis) 5 mg PO BID 07/21/22 07/21/22 cholecalciferol (vitamin D3) 25 25 mcg PO DAILY 07/21/22 07/21/22 mcg (1,000 unit) capsule cholestyramine-aspartame 4 gram 4 g PO DAILY 07/21/22 07/21/22 oral powder for susp in a packet (Cholestyramine Light) cyanocobalamin (vitamin B-12) 1,000 mcg PO DAILY 07/21/22 07/21/22 1,000 mcg tablet duloxetine 20 mg capsule,delayed 20 mg PO DAILY 07/21/22 07/21/22 release furosemide 20 mg tablet 20 mg PO DAILY 07/21/22 07/21/22 hydroxychloroquine 200 mg tablet 200 mg PO BID 07/21/22 07/21/22 ipratropium 0.5 mg-albuterol 3 mg 3 ml inhalation Q6H PRN Shortness 07/21/22 07/21/22 (2.5 mg base)/3 mL nebulization Of Breath soln levothyroxine 112 mcg capsule 112 mcg PO DAILY 07/21/22 07/21/22 lisinopril 5 mg tablet 5 mg PO DAILY 07/21/22 07/21/22 loperamide 2 mg capsule 2 mg PO Q8H PRN Diarrhea 07/21/22 07/21/22 metoprolol succinate 25 mg 50 mg PO DAILY 07/21/22 07/21/22 tablet,extended release 24 hr phenazopyridine 200 mg tablet 200 mg PO TID PRN Pain 07/21/22 07/21/22 pravastatin 80 mg tablet 80 mg PO HS 07/21/22 07/21/22 prednisone 5 mg tablet 15 mg DAILY 07/21/22 07/21/22 sertraline 50 mg tablet 50 mg PO DAILY 07/21/22 07/21/22 simethicone 80 mg chewable tablet 80 mg TID PRN Gastric Reflux 07/21/22 07/21/22 tramadol 50 mg tablet 50 mg PO TID PRN Pain 07/21/22 07/21/22 trimethoprim 100 mg tablet 100 mg PO HS 07/21/22 07/21/22 Allergies Allergy/AdvReac Type Severity Reaction Status Date / Time No Known Allergies Allergy Verified 07/21/22 14:03 Review of Systems Review of Systems: CONSTITUTIONAL: Denies fever, chills, or sweats. EYES: Denies visual changes, redness, or discharge. ENT: Denies rhinorrhea, congestion, sore throat, or otalgia. CARDIOVASCULAR: Denies chest pain, palpitations, or edema. RESPIRATORY: See HPI GASTROINTESTINAL: Denies abdominal pain, nausea, vomiting, or diarrhea. GENITOURINARY: Denies dysuria or hematuria. SKIN: Denies rash or itching. MUSCULOSKELETAL: Denies back pain, joint pain, or myalgia. NEUROLOGIC: Denies headache, numbness, or weakness. PMFSH Social History Social History Smoking status: Never smoker Alcohol intake: never Substance use: never Spiritual care concerns: No Exam Narrative: APPEARANCE: Well appearing, no pain, no distress, well-nourished. HEAD: normocephalic, atraumatic. EYES: PERRLA/EOMI, conjunctivae clear. NOSE: Normal no drainage THROAT: Pharynx clear, no exudate. NECK: Supple. No adenopathy, no masses. RESPIRATORY: Airway patent, respirations nonlabored. Clear to auscultation bilaterally, no rales, rhonchi, wheezing. CARDIOVASCULAR: A. fib with RVR ABDOMINAL: Soft, nontender, nondistended, normal bowel sounds MUSCULOSKELETAL: Moves all extremities. Strength/ROM intact, No edema, No calf tenderness. NEURO: Alert. Cranial nerves II through XII intact. Grossly intact SKIN: Warm, dry. Normal Color
[2022-07-21 13:30] LABS: Hematocrit 34.2 % (37.0-47.0); Hemoglobin 10.7 g/dL (12.0-15.0); Mean Corpuscular HGB Conc 31.3 g/dl (32-36); Mean Corpuscular Hemoglobin 30.6 pg (26-34); Mean Corpuscular Volume 97.7 fl (80-100); Mean Platelet Volume 9.5 fl (7.4-10.4); Platelet Count Result 137 k/mm3 (150-375); Red Cell Distribution Width 14.7 % (11.5-14.5); White Blood Count 20.3 K/mm3 (4.5-10.0)
[2022-07-21 13:37] LABS: Alveolar/Arterial O2 Gradient 88.6 mmHg; Base Excess ABG -2.5 mEq/l (+/-2.0); Fractional Inspired Oxygen 36 %; HCO3 ABG 21.4 mEq/l (22.0-26.0); Oxygen Content ABG 16.1 %vol (16.0-22.0); Oxygen Saturation ABG 98.6 % (95.0-100.0); Oxyhemoglobin 97.9 % THb (90.0-100.0); PCO2 ABG 33.8 mmHg (35.0-45.0); PO2 ABG 128.9 mmHg (80.0-100.0); PO2 FiO2 Ratio Arterial Blood 3.58 %; Total Hemoglobin 11.5 g/dL (12.0-18.0); pH ABG 7.419 (7.350-7.450)
[2022-07-21 13:38] LABS: Device NASAL CANNULA; Modified Allen's Test Pass; Site Drawn LEFT RADIAL
[2022-07-21 13:41] LABS: Band Neutrophils Percent 5 % (0-6); Monocytes Absolute Manual 1.21 K/mm3 (0.1-0.90); Monocytes Percent Manual 6 % (3-9); Neutrophils Absolute Manual 18.47 K/mm3 (1.7-7.2); Neutrophils Percent Manual 86 % (46-73); Platelet Estimate Decreased (Adequate); Total Cells Counted 100
[2022-07-21 13:42] LABS: Alanine Aminotransferase 22 U/L (6-35); Alkaline Phosphatase 75 U/L (38-126); Anion Gap 12 mmol/L (8-16); Aspartate Amino Transferase 32 U/L (14-36); Bilirubin,Total 0.5 mg/dL (0.2-1.3); Blood Urea Nitrogen 49 mg/dL (7-17); Calcium 9.4 mg/dL (8.4-10.2); Carbon Dioxide 24 mmol/L (22-30); Chloride 92 mmol/L (98-107); Estimated CRCL calculation 19 ml/min; Estimated Glomerular Filt Rate 16; Glucose 98 mg/dL (65-110); INR 1.6; Potassium 3.6 mmol/L (3.4-5.0); Prothrombin Time 18.6 Seconds (11.1-14.7); Sodium 128 mmol/L (137-145)
[2022-07-21 13:43] LABS: Partial Thromboplastin Time 34.6 SECONDS (22.3-36.8); Tear Drop Cells 1+ (NORMAL)
[2022-07-21 13:45] LABS: Ovalocytes 2+ (NORMAL)
[2022-07-21 14:00] LABS: NT Pro B Type Natriuretic Pept 6990 pg/mL (5-100); Troponin I 0.089 ng/mL (0.000-0.034)
[2022-07-21] MEDS: METOPROLOL SUCCINATE EXT REL 50 MG TABCR PO (14:06)
[2022-07-21] MEDS: FUROSEMIDE INJ 40 MG/4 ML VIAL IV PUSH ×2 (14:06→23:08)
[2022-07-21 14:25] LABS: SARS-CoV-2 RNA PCR Negative
[2022-07-21] MEDS: dilTIAZem HCl INJ 25 MG/5 ML VIAL 10 MG IV PUSH (15:15)
[2022-07-21 15:20] LABS: Appearance Urine Clear (Clear); Bilirubin Urine Negative (Negative); Blood Urine 1+ (Negative); Color Urine Yellow (Yellow); Glucose Urine UA Negative (Negative); Ketones Urine Negative (Negative); Leukocyte Esterase Ur 2+ LEU/UL (Negative); Nitrate Urine Positive (Negative); Protein Urine Negative (Negative); Urobilinogen Urine 0.2 mg/dL (<2.0); pH Urine 5.5 (5.0-9.0)
[2022-07-21 15:24] LABS: Bacteria Urine 2+ /hpf; Mucus Urine Rare /lpf; RBC Urine 0-2 /hpf (0-2); Squamous Epithelial Cell Urine Rare /hpf (Few)
[2022-07-21 15:25] LABS: Add Urine Microscopic? YES
[2022-07-21] MEDS: SODIUM CHLORIDE 0.9% IV 500 ML 999 ML (15:35)
--- NOTE | 2022-07-21 16:27 | ECG_ITS ---
Measurements Intervals [place] Rate: 118 P: MN: 0 QRS: -26 QRSD: 126 T: 96 QT: 335 QTc: 470 Interpretive Statements ATRIAL FIBRILLATION WITH RAPID VENTRICULAR RESPONSE BORDERLINE LEFT AXIS DEVIATION [QRS AXIS < -20] MODERATE INTRAVENTRICULAR CONDUCTION DELAY [110+ ms QRS DURATION] VOLTAGE CRITERIA FOR LVH [MEETS CRITERIA IN ONE OF: R(aVL), S(V1), R(V5), R(V5/V6)+S(V1)] NONSPECIFIC ST & T-WAVE ABNORMALITY ABNORMAL ECG NO PREVIOUS ECG AVAILABLE FOR COMPARISON Electronically Signed On 07-21-2022 17:24:05 CDT by Celio Hdez M.D.
[2022-07-21 16:33] LABS: Troponin I 0.101 ng/mL (0.000-0.034)
--- NOTE | 2022-07-21 16:34 | ADMGEN ---
This patient, Ayanna Cash, was admitted to IMU Room 211-01 at 1633. Patient/family oriented to hospital policies and general routines including ID bracelet, bed and alarms, visiting hours, pain management, procedures, bathroom and other care routines, personal items, smoking policy, room service/diet, and visiting hours. Information on how to activate the Rapid Response Team has been discussed. Patient/Family are encouraged to report perceived risks to care and to ask questions if they do not understand what they are told or what they should do.
[2022-07-21] MEDS: ACETAMINOPHEN 325 MG TABLET 650 MG PO (17:12)
[2022-07-21] MEDS: dilTIAZem 100 MG/100 ML 100 MG/100 ML BAG IV CONT (18:37)
[2022-07-21] MEDS: DIGOXIN INJ 250 MCG/ML 2 ML AMP (*BKC) IV PUSH (20:37)
--- NOTE | 2022-07-21 21:10 | PM.IMHP ---
H&P: HPI History of Present Illness Date/Time: 07/21/22 21:10 Chief Complaint: Shortness of breath dyspnea Narrative: This is Marta Cash who has been here multiple times and needs her chart to be merged with Marta Cash. Please refer to past medical records on danuta Cash. She has a history of CHF, chronic respiratory failure on oxygen at 2 L at rest and 4 L with exertion. The patient has chronic AFib and Belinda and she is here with shortness of breath. The patient was here back in April with COVID. She is already on Eliquis and has a history of PE and DVTs. Her white count was noted to be 20.3. H&H is 10.7 and 34.2. Sodium is low at 128. Creatinine is 2.9 which is higher than her previous reading. Troponin is 0.089 and 0.101. BNP is 6990. Patient was found to be positive for UTI. Chest x-ray was read as no acute cardiopulmonary abnormality. Improved chronic interstitial lung disease. A Paige catheter was placed and the patient was given Lasix IV. The patient was found to be in AFib with RVR. She was given her home dose of Toprol since she did not take any at home. She was given Cardizem IV push and a drip was ordered however the patient's blood pressure dropped and we had to stop the Cardizem drip. Digoxin was ordered IV x1. Patient was given Tylenol and started on Rocephin for the UTI. The patient is being admitted to observation status on the date of service of 07/21/2022. Review of Systems Review of Systems: See HPI All systems reviewed & are unremarkable except as noted in HPI and below Constitutional: Constitutional: Reports as per HPI and Reports no additional constitutional complaints Eyes: Eyes: Reports as per HPI and Reports no additional eye complaints ENT: Reports system reviewed and no additional complaints, except as documented and Reports Normal hearing present Cardiovascular: Cardiovascular: Reports no additional cardiovascular complaints Respiratory: Respiratory: Reports no additional respiratory complaints and Reports no additional respiratory complaints Gastrointestinal: Gastrointestinal: Reports as per HPI and Reports no additional gastrointestinal complaints Musculoskeletal: Musculoskeletal: Reports no additional musculoskeletal complaints Integumentary/Breasts: Skin/Breast: Reports system reviewed and no additional complaints, except as docu and Reports as per HPI Neurologic: Reports system reviewed and no additional complaints, except as documented, Reports as per HPI and Reports Normal hearing present Psychiatric: Psychiatric: Reports no additional psychiatric complaints and Reports as per HPI Endocrine: Endocrine: Reports no additional endocrine complaints Hematologic/Lymphatic: Hematologic/Lymphatic: Reports no additional hematologic/lymphatic complaints Allergic/Immunologic: Allergic/Immunologic: Reports no additional allergic/immunologic complaints [facility] Past Medical History Medical History (Updated 07/21/22 @ 21:51 by Khloe Clement, ZULY) Atrial fibrillation Chronic diastolic (congestive) heart failure Chronic respiratory failure Wears home O2 2-4 Congestive heart failure Degenerative joint disease of right hip Depression with anxiety Diverticulosis DJD (degenerative joint disease), multiple sites DVT (deep venous thrombosis) 2004 Essential hypertension Hearing loss History of COVID-19 History of shingles Hyperlipidemia Hypothyroidism Interstitial lung disease Morbid obesity Nonspecific interstitial pneumonitis Obstructive sleep apnea on CPAP Paroxysmal atrial fibrillation Pulmonary embolism 2004 Pulmonary hypertension Rheumatoid arthritis Stress incontinence Surgical History Surgical History (Updated 07/21/22 @ 21:25 by Khloe Clement NP) History of bilateral knee replacement History of cardiac catheterization History of section, classical History of parathyroidectomy History of tonsillectomy and adenoidectomy Hx of arthroscopic knee s
[2022-07-21] MEDS: APIXABAN 5 MG TABLET PO (23:08)
[2022-07-21] MEDS: PRAVASTATIN SODIUM 20 MG TABLET 80 MG PO (23:08)
[2022-07-21] MEDS: TRIMETHOPRIM 100 MG TABLET PO (23:09)
[2022-07-22] VITALS (18 sets, daily range): BP systolic 101–152; BP diastolic 57–114; PULSE 79–137; RESP 18–30; TEMP 36.4–37.6; O2SAT 97–100
[2022-07-22] MEDS: ACETAMINOPHEN 325 MG TABLET 650 MG BY MOUTH ×2 (03:14→16:24)
[2022-07-22 04:41] LABS: Hematocrit 32.8 % (37.0-47.0); Hemoglobin 9.8 g/dL (12.0-15.0); Mean Corpuscular HGB Conc 29.9 g/dl (32-36); Mean Corpuscular Hemoglobin 30.9 pg (26-34); Mean Corpuscular Volume 103.5 fl (80-100); Platelet Count Result 119 k/mm3 (150-375); Red Blood Count 3.17 M/mm3 (4.2-5.4); White Blood Count 20.4 K/mm3 (4.5-10.0)
[2022-07-22 04:58] LABS: Alanine Aminotransferase 19 U/L (6-35); Albumin Level 3.5 g/dL (3.5-5.1); Alkaline Phosphatase 59 U/L (38-126); Anion Gap 15 mmol/L (8-16); Aspartate Amino Transferase 30 U/L (14-36); Bilirubin,Total 0.4 mg/dL (0.2-1.3); Blood Urea Nitrogen 57 mg/dL (7-17); Calcium 9.1 mg/dL (8.4-10.2); Carbon Dioxide 21 mmol/L (22-30); Chloride 92 mmol/L (98-107); Estimated CRCL calculation 16 ml/min; Estimated Glomerular Filt Rate 13; Glucose 83 mg/dL (65-110); Magnesium 1.4 mg/dL (1.6-2.3); Potassium 3.8 mmol/L (3.4-5.0); Sodium 128 mmol/L (137-145)
[2022-07-22 05:08] LABS: Band Neutrophils Percent 16 % (0-6); Lactic Acid Reflex 1.9 mmol/L (0.7-2.0); Lymphocytes Percent Manual 1 % (18-44); Monocytes Absolute Manual 0.61 K/mm3 (0.1-0.90); Monocytes Percent Manual 3 % (3-9); Neutrophils Absolute Manual 19.58 K/mm3 (1.7-7.2); Neutrophils Percent Manual 80 % (46-73); Total Cells Counted 100
[2022-07-22 05:09] LABS: Tear Drop Cells 1+ (NORMAL)
[2022-07-22] MEDS: LEVOTHYROXINE SODIUM 112 MCG TABLET PO (06:22)
[2022-07-22] MEDS: ONDANSETRON INJ 4 MG/2 ML VIAL IV PUSH ×2 (07:29→22:33)
[2022-07-22] MEDS: predniSONE 5 MG TABLET 15 MG BY MOUTH (10:13)
[2022-07-22] MEDS: HYDROXYCHLOROQUINE SULFATE 200 MG TABLET PO ×2 (10:13→16:27)
[2022-07-22] MEDS: APIXABAN 5 MG TABLET PO ×2 (10:14→20:50)
[2022-07-22] MEDS: CHOLECALCIFEROL 1,000 UNITS TABLET 1000 UNITS PO (10:14)
[2022-07-22] MEDS: CYANOCOBALAMIN 1,000 MCG TABLET 1000 MCG PO (10:15)
[2022-07-22] MEDS: DULoxetine HCL 20 MG CAPSULE.DR PO (10:16)
[2022-07-22] MEDS: FUROSEMIDE INJ 40 MG/4 ML VIAL IV PUSH (10:17)
[2022-07-22] MEDS: METOPROLOL SUCCINATE EXT REL 50 MG TABCR PO (10:21)
[2022-07-22] MEDS: SERTRALINE HCL 50 MG TABLET PO (10:22)
[2022-07-22] MEDS: CHOLESTYRAMINE LIGHT 4 GM POWD.PACK PO (11:52)
--- NOTE | 2022-07-22 11:57 | PM.IMPN ---
Progress Note: A&P Assessment and Plan (1) Atrial fibrillation with RVR: Code(s): I48.91 - Unspecified atrial fibrillation Status: Acute (2) Acute UTI: Code(s): N39.0 - Urinary tract infection, site not specified Status: Acute (3) Elevated troponin: Code(s): R77.8 - Other specified abnormalities of plasma proteins Status: Acute (4) MIKE (acute kidney injury): Code(s): N17.9 - Acute kidney failure, unspecified Status: Acute (5) Chronic diastolic (congestive) heart failure: Code(s): I50.32 - Chronic diastolic (congestive) heart failure Status: Acute (6) Chronic respiratory failure: Code(s): J96.10 - Chronic respiratory failure, unspecified whether with hypoxia or hypercapnia Status: Acute (7) DVT (deep venous thrombosis): Code(s): I82.409 - Acute embolism and thrombosis of unspecified deep veins of unspecified lower extremity Status: Acute (8) Hypothyroidism: Code(s): E03.9 - Hypothyroidism, unspecified Status: Acute (9) Hyperlipidemia: Code(s): E78.5 - Hyperlipidemia, unspecified Status: Acute (10) Essential hypertension: Code(s): I10 - Essential (primary) hypertension Status: Acute (11) Obstructive sleep apnea on CPAP: Code(s): G47.33 - Obstructive sleep apnea (adult) (pediatric); Z99.89 - Dependence on other enabling machines and devices Status: Acute (12) Depression with anxiety: Code(s): F41.8 - Other specified anxiety disorders Status: Acute (13) Rheumatoid arthritis: Code(s): M06.9 - Rheumatoid arthritis, unspecified Status: Acute Plan Patient presents with generalized weakness and shortness of breath past few days # sepsis: I suspect she present did with sepsis. She came in with generalized weakness AFib with RVR leukocytosis chills and evidence of UTI. Unclear if she has underlying pneumonia per se. She was also having diarrhea and nausea vomiting. Will get CT chest abdomen pelvis to further evaluate. Start vancomycin and cefepime also azithromycin for atypical coverage. Sees Immunocompromised with underlying history of rheumatoid arthritis. She is on chronic prednisone therapy. She has also recently started on Orencia 5 weeks back. COVID is negative # AFib with RVR patient was started on Cardizem bolus and infusion however blood pressure decreased. On metoprolol which is continued. Received a 1 time dose of digoxin. AFib with RVR improved continue telemetry monitoring Continue Eliquis # chronic respiratory failure on oxygen at home. 2L at rest and 4 L with exertion. 4-6 L continuous. BNP is elevated # urinary tract infection Rocephin urine culture pending # Elevated troponin likely demand ischemia EKG with no acute signs of ischemic changes. Treated with IV Lasix. Will hold IV Lasix now recheck troponin likely related to sepsis renal dysfunction etc. # hyponatremia mild chronic. Continue to monitor # MIKE on CKD stage 3/4 creatinine of 2.9 creatinine worsened to 3.4 with diuresis. Baseline creatinine 1.3. hold diuresis today. Start IV hydration nephrology consultation # chronic diastolic heart failure. Well compensated but harder to assess. Will monitor volume status with IV hydration # degenerative joint disease # depression anxiety # hypertension # hypothyroidism # hyperlipidemia # morbid obesity # interstitial lung disease # STARR on CPAP # history of PE/DVT on Eliquis long-term. # rheumatoid arthritis continue Plaquenil and Orencia on chronic steroid therapy. Recently started on Orencia 5 weeks back # pulmonary hypertension # history of COVID in April 2022 # DVT prophylaxis on Eliquis # code status full code Subjective Date/time seen: 07/22/22 11:57 Interval history: HPI:This is Marta Cash who has been here multiple times and needs her chart to be merged with Marta Cash.? Please refer to past medical records on ther
--- NOTE | 2022-07-22 13:18 | P.CONNP_ITS ---
Assessment and Plan Assessment and plan (1) MIKE (acute kidney injury): Code(s): N17.9 - Acute kidney failure, unspecified Status: Acute Assessment and Plan: * etiology not clear * due to afib with RVR * possible associated with relative hypotension * infection (UTI) * holding GEORGI-I and diuretics now * follow-up on urine electrolytes * check renal ultrasound * follow trend of repeat labs and UOP (2) Stage 3b chronic kidney disease: Code(s): N18.32 - Chronic kidney disease, stage 3b Status: Chronic Assessment and Plan: * baseline creatinine usually runs ~ 1.2 - 1.6mg/dl * necessity of diuretic therapy to maintain her volume status given her diastolic heart failure likely precipitated by her pulmonary hypertension and suspected obstructive sleep apnea?is the main reason why her kidney function is abnormal * outpatient evaluation demonstrated a normal renal ultrasound, no significant proteinuria, and a negative serological evaluation? (3) Acute UTI: Code(s): N39.0 - Urinary tract infection, site not specified Status: Acute Assessment and Plan: -continue with Rocephin -cultures pending (4) Atrial fibrillation with RVR: Code(s): I48.91 - Unspecified atrial fibrillation Status: Acute Assessment and Plan: * as noted on presentation * attempted rate control with diltiazem gtt but this resulted in hypotension * rate better s/p digoxin * continued on metoprolol as tolerated * already on anticoagulation (5) Chronic diastolic (congestive) heart failure: Code(s): I50.32 - Chronic diastolic (congestive) heart failure Status: Acute Assessment and Plan: * Echo ordered to re-assess * holding lasix and GEORGI-I due to #1 * follow volume status closely (6) Essential hypertension: Code(s): I10 - Essential (primary) hypertension Status: Acute Assessment and Plan: * follow trend of hemodynamics * attempt to optimize BP as tolerated to help with #1 * holding GEORGI-I at this time (7) Rheumatoid arthritis: Code(s): M06.9 - Rheumatoid arthritis, unspecified Status: Acute Assessment and Plan: * on plaquenil * remains on chronic steroids Will continue to follow. History of Present Illness Reason for Consult Consult date: 07/22/22 Reason for consult: acute renal failure (on chronic kidney disease) Chief Complaint Chief complaint: CHF, hypoxia, Elevated tropnin, MIKE History of Present Illness Narrative: This chart needs to be merged with her other chart ([id number]). The patient is a 72-year-old female with an extensive past medical history as outlined below who presented to [facility] Emergency room with complaints of shortness of breath. The patient has chronic respiratory failure secondary to her chronic interstitial lung disease and is on 2-3 L of supplemental oxygen at baseline. She was recently admitted here in April of 2022 with COVID 19 infection as well. However, more recently, she has noticed her baseline shortness of breath be much worse and eventually presented to emergency room due to her inability to tolerate this issue. Workup and evaluation emergency room demonstrated the patient to be mildly hypotensive and in atrial fibrillation with RVR. Routine blood test demonstrated mild anemia but an elevated white blood cell count of 20.3 in association with an elevated BUN and creatinine far above her baseline. Her BNP was elevated at 6990 although her chest x-ray did not demonstrate a
--- NOTE | 2022-07-22 13:18 | PM.CNNEP ---
Assessment and Plan Assessment and plan (1) MIKE (acute kidney injury): Code(s): N17.9 - Acute kidney failure, unspecified Status: Acute Assessment and Plan: etiology not clear due to afib with RVR possible associated with relative hypotension infection (UTI) holding GEORGI-I and diuretics now follow-up on urine electrolytes check renal ultrasound follow trend of repeat labs and UOP (2) Stage 3b chronic kidney disease: Code(s): N18.32 - Chronic kidney disease, stage 3b Status: Chronic Assessment and Plan: baseline creatinine usually runs ~ 1.2 - 1.6mg/dl necessity of diuretic therapy to maintain her volume status given her diastolic heart failure likely precipitated by her pulmonary hypertension and suspected obstructive sleep apnea?is the main reason why her kidney function is abnormal outpatient evaluation demonstrated a normal renal ultrasound, no significant proteinuria, and a negative serological evaluation? (3) Acute UTI: Code(s): N39.0 - Urinary tract infection, site not specified Status: Acute Assessment and Plan: -continue with Rocephin -cultures pending (4) Atrial fibrillation with RVR: Code(s): I48.91 - Unspecified atrial fibrillation Status: Acute Assessment and Plan: as noted on presentation attempted rate control with diltiazem gtt but this resulted in hypotension rate better s/p digoxin continued on metoprolol as tolerated already on anticoagulation (5) Chronic diastolic (congestive) heart failure: Code(s): I50.32 - Chronic diastolic (congestive) heart failure Status: Acute Assessment and Plan: Echo ordered to re-assess holding lasix and GEORGI-I due to #1 follow volume status closely (6) Essential hypertension: Code(s): I10 - Essential (primary) hypertension Status: Acute Assessment and Plan: follow trend of hemodynamics attempt to optimize BP as tolerated to help with #1 holding GEORGI-I at this time (7) Rheumatoid arthritis: Code(s): M06.9 - Rheumatoid arthritis, unspecified Status: Acute Assessment and Plan: on plaquenil remains on chronic steroids Will continue to follow. History of Present Illness Reason for Consult Consult date: 07/22/22 Reason for consult: acute renal failure (on chronic kidney disease) Chief Complaint Chief complaint: CHF, hypoxia, Elevated tropnin, MIKE History of Present Illness Narrative: This chart needs to be merged with her other chart ([id number]). The patient is a 72-year-old female with an extensive past medical history as outlined below who presented to [facility] Emergency room with complaints of shortness of breath. The patient has chronic respiratory failure secondary to her chronic interstitial lung disease and is on 2-3 L of supplemental oxygen at baseline. She was recently admitted here in April of 2022 with COVID 19 infection as well. However, more recently, she has noticed her baseline shortness of breath be much worse and eventually presented to emergency room due to her inability to tolerate this issue. Workup and evaluation emergency room demonstrated the patient to be mildly hypotensive and in atrial fibrillation with RVR. Routine blood test demonstrated mild anemia but an elevated white blood cell count of 20.3 in association with an elevated BUN and creatinine far above her baseline. Her BNP was elevated at 6990 although her chest x-ray did not demonstrate any type of pulmonary vascular congestion, pleural effusions or any other cardiopulmonary abnormality aside from her known chronic interstitial lung disease. She was given a dose of IV Lasix in the emergency room and started on a cardizem drip for rate control with regard to her AFib with RVR but this had to be discontinued due to hypotension. Her urinalysis also demonstrated a possible urinary tract infection and so she was sta
[2022-07-22 14:42] LABS: NT Pro B Type Natriuretic Pept 7240 pg/mL (5-100); Troponin I 0.051 ng/mL (0.000-0.034)
[2022-07-22] MEDS: SODIUM CHLORIDE 0.9% IV 1,000 ML 60 ML IV CONT (15:05)
[2022-07-22 16:03] LABS: Creatinine Urine 19.5 mg/dL; Urea Random Urine 209 MG/DL
[2022-07-22] MEDS: DOXYCYCLINE 100 MG/NS 100 ML 100 MG/100 ML BAG IVPB (18:46)
[2022-07-22] MEDS: PRAVASTATIN SODIUM 20 MG TABLET 80 MG PO (20:50)
[2022-07-22] MEDS: TRIMETHOPRIM 100 MG TABLET PO (20:51)
[2022-07-22 21:57] LABS: Glucose Point of Care 115 mg/dl (65-105)
[2022-07-22] MEDS: ALBUTEROL SULFATE NEB 2.5 MG/3 ML INH 10 MG (22:00)
[2022-07-22 22:15] LABS: Alveolar/Arterial O2 Gradient 164.5 mmHg; Base Excess ABG -6.4 mEq/l (+/-2.0); Fractional Inspired Oxygen 100 %; HCO3 ABG 18.7 mEq/l (22.0-26.0); Methemoglobin ABG 0.3 %THb (0-1.5); Oxygen Content ABG 17.9 %vol (16.0-22.0); Oxygen Saturation ABG 99.9 % (95.0-100.0); Oxyhemoglobin 99.2 % THb (90.0-100.0); PCO2 ABG 35.5 mmHg (35.0-45.0); PO2 FiO2 Ratio Arterial Blood 5.13 %; Reduced Hemoglobin 0.5 %THb (0-5.0); Total Hemoglobin 11.8 g/dL (12.0-18.0); pH ABG 7.339 (7.350-7.450)
--- NOTE | 2022-07-22 22:17 | PM.CCN ---
Critical Care Event Note Summary Code activated: No Narrative: This case had a high probability of a clinically significant, sudden, or life threatening deterioration of this patient's condition which required my full and direct attention, intervention and personal management. A rapid response was called due to patient's increased respiratory effort. Patient's O2 saturations dropped in the 80s. The patient was having rigors and her temperature was noted to be 98.9. The patient was unable to speak in full sentences and was shaking. Patient had been on a non-rebreather and only satting in the lower 80s. Patient's heart rate went up in the 130s. We placed the patient on a BiPAP 14/8 and patient's pulse ox went up to 100%. Patient was turning cyanotic when we initially went into the room. Labs have been ordered a chest x-ray and a BiPAP ABGs have been ordered as well. A continuous neb was ordered as well. ICU in IMU nurses as well as respiratory were at the bedside. Patient's blood pressure was elevated and the patient was in AFib RVR. Critical care time: 30 - 74 mins
[2022-07-22 22:18] LABS: Hematocrit 37.5 % (37.0-47.0); Hemoglobin 11.6 g/dL (12.0-15.0); Mean Corpuscular HGB Conc 30.9 g/dl (32-36); Mean Corpuscular Hemoglobin 30.7 pg (26-34); Mean Corpuscular Volume 99.2 fl (80-100); Mean Platelet Volume 10.4 fl (7.4-10.4); Platelet Count Result 151 k/mm3 (150-375); Red Blood Count 3.78 M/mm3 (4.2-5.4); Red Cell Distribution Width 14.6 % (11.5-14.5); White Blood Count 12.9 K/mm3 (4.5-10.0)
[2022-07-22 22:18] LABS: Device BIPAP; Modified Allen's Test Pass; Site Drawn LEFT RADIAL
[2022-07-22 22:19] LABS: Expiratory Pressure 8 cmH2O; Inspiratory Pressure 14 cmH2O
[2022-07-22] MEDS: dilTIAZem HCl INJ 25 MG/5 ML VIAL 5 MG IV PUSH (22:23)
[2022-07-22 22:28] LABS: Anion Gap 19 mmol/L (8-16); Blood Urea Nitrogen 58 mg/dL (7-17); Calcium 9.1 mg/dL (8.4-10.2); Carbon Dioxide 20 mmol/L (22-30); Chloride 93 mmol/L (98-107); Estimated CRCL calculation 17 ml/min; Estimated Glomerular Filt Rate 14; Glucose 97 mg/dL (65-110); Magnesium 1.7 mg/dL (1.6-2.3); Sodium 132 mmol/L (137-145)
[2022-07-22 22:50] LABS: Band Neutrophils Percent 29 % (0-6); Basophils Absolute Manual 0.12 K/mm3 (0.0-0.1); Basophils Percent Manual 1 % (0-1); Lymphocytes Absolute Manual 0.64 K/mm3 (1.1-4.5); Metamyelocytes Percent 4 %; Monocytes Absolute Manual 0.64 K/mm3 (0.1-0.90); Monocytes Percent Manual 5 % (3-9); Neutrophils Absolute Manual 10.83 K/mm3 (1.7-7.2); Neutrophils Percent Manual 55 % (46-73); Nucleated Red Blood Cells 2 %; Platelet Estimate Adequate (Adequate); Promyelocytes Percent 1 %; Total Cells Counted 100
[2022-07-22 22:51] LABS: Acanthocytes 1+ (NORMAL); Burr Cells 1+ (NORMAL); Crenated RBC 1+ (NORMAL)
[2022-07-22 22:53] LABS: Poikilocytosis 1+ (NORMAL)
[2022-07-23] VITALS (23 sets, daily range): BP systolic 88–188; BP diastolic 56–122; PULSE 67–137; RESP 18–24; TEMP 35.7–37.5; O2SAT 82–98
--- NOTE | 2022-07-23 | ECHO_ITS ---
Patient Info Name: Ayanna Cash Age: 72 years : 1950 Gender: Female Ht: 62 in Wt: 251 lbs BSA: 2.30 m2 HR: 98 bpm BP: 94 / 58 mmHg Heart Rhythm: Atrial Fibrillation Technical Quality: Fair Exam Date: 07/23/2022 9:32 AM Exam Location: [facility] Patient Status: Inpatient Admit Date: 07/22/2022 Staff Ordering Physician: Khloe Clement NP Mule Tender: Kimberly Friend RDCS Attending Provider: Jabier Contreras MD Referring Physician: Urbano FOUNTAIN; Exam Type: CA echo dop color flow w con Study Info Indications - chf Complete two-dimensional, color flow and Doppler transthoracic echocardiogram is performed with contrast to opacify the left ventricle and to improve the deliniation of the left ventricle endocardial borders. Contrast/Agitated Saline Contrast/Ag. Saline: Definity Amount: 3.00 ml Administered By: Kimberly Friend RDCS Existing IV Access: Yes IV Access Condition: patent with no signs of infiltration Summary 1. Left ventricular chamber dimension is mildly enlarged. 2. Definity contrast administered improved wall motion interpretation. 3. Left ventricular systolic function is preserved, estimated at 50-55%. 4. The left ventricular diastolic function is abnormal. 5. E/e' 12 is mildly elevated. 6. Atrial fibrillation. 7. Left atrial chamber dimension is moderately enlarged. 8. There is mild aortic valve sclerosis. 9. There is mild mitral valve regurgitation. 10. There is trace tricuspid valve regurgitation. 11. No pulmonary hypertension, estimated pulmonary arterial systolic pressure is 18 mmHg. Left Ventricle E/e' 12 is mildly elevated. Atrial fibrillation. Left ventricular systolic function is preserved, estimated at 50-55%. Definity contrast administered improved wall motion interpretation. Left ventricular chamber dimension is mildly enlarged. The left ventricular diastolic function is abnormal. Right Ventricle Right ventricular chamber dimension is normal. Right ventricular systolic function is normal. Left Atria Left atrial chamber dimension is moderately enlarged. Right Atria Right atrial chamber dimension is normal. Aortic Valve The aortic valve is trileaflet. There is mild aortic valve sclerosis. There is no aortic valve stenosis. There is no aortic valve regurgitation. Pulmonic Valve There is no pulmonic regurgitation. Mitral Valve There is no mitral valve stenosis. There is mild mitral valve regurgitation. Tricuspid Valve There is trace tricuspid valve regurgitation. No pulmonary hypertension, estimated pulmonary arterial systolic pressure is 18 mmHg. Pericardium/Pleural There is no pericardial effusion. Inferior Vena Cava Normal inferior vena cava with >50% collapse upon inspiration consistent with normal right atrial pressure, 5 mmHg. Aorta The aortic root size at the sinus of Valsalva is normal. Left Ventricular Outflow Tract Name Value Normal LVOT 2D LVOT Diameter 2.13 cm LVOT Doppler LVOT Peak Gradient 3 mmHg LVOT Tiigst
[2022-07-23] MEDS: dilTIAZem 100 MG/100 ML 100 MG/100 ML BAG IV CONT (00:08)
[2022-07-23 01:43] LABS: Glucose Point of Care 111 mg/dl (65-105)
[2022-07-23 04:56] LABS: Hematocrit 31.6 % (37.0-47.0); Hemoglobin 10.2 g/dL (12.0-15.0); Immature Platelet Fraction Pct 5.2 % (0.9-11.2); Mean Corpuscular HGB Conc 32.3 g/dl (32-36); Mean Corpuscular Hemoglobin 30.7 pg (26-34); Mean Corpuscular Volume 95.2 fl (80-100); Mean Platelet Volume 10.9 fl (7.4-10.4); Platelet Count Result 125 k/mm3 (150-375); Red Blood Count 3.32 M/mm3 (4.2-5.4); Red Cell Distribution Width 14.7 % (11.5-14.5)
[2022-07-23 05:07] LABS: Alanine Aminotransferase 17 U/L (6-35); Albumin Level 3.3 g/dL (3.5-5.1); Alkaline Phosphatase 72 U/L (38-126); Anion Gap 5 mmol/L (8-16); Aspartate Amino Transferase 21 U/L (14-36); Bilirubin,Total 0.3 mg/dL (0.2-1.3); Blood Urea Nitrogen 59 mg/dL (7-17); Calcium 8.4 mg/dL (8.4-10.2); Carbon Dioxide 23 mmol/L (22-30); Chloride 97 mmol/L (98-107); Estimated CRCL calculation 18 ml/min; Estimated Glomerular Filt Rate 15; Glucose 110 mg/dL (65-110); Magnesium 1.4 mg/dL (1.6-2.3); Potassium 3.3 mmol/L (3.4-5.0); Sodium 125 mmol/L (137-145)
[2022-07-23 05:35] LABS: Anisocytosis 1+ (NORMAL); Band Neutrophils Percent 25 % (0-6); Lymphocytes Absolute Manual 0.16 K/mm3 (1.1-4.5); Metamyelocytes Percent 1 %; Monocytes Absolute Manual 1.12 K/mm3 (0.1-0.90); Monocytes Percent Manual 7 % (3-9); Neutrophils Absolute Manual 14.56 K/mm3 (1.7-7.2); Neutrophils Percent Manual 66 % (46-73); Platelet Estimate Adequate (Adequate); Total Cells Counted 100
[2022-07-23 05:36] LABS: Crenated RBC 1+ (NORMAL); Macrocytosis 1+ (NORMAL)
--- NOTE | 2022-07-23 05:44 | PC.NURSE ---
07/22/22 2150 Patient called out and stated she was having difficulty breathing . This nurse went in to assess patient and noted patient to appear mottled with labored respirations. Patient was on 2L nasal cannula at that time. This nurse placed patient on 15L NRB and SpO2 noted to be 82% while on NRB. Rapid response called. See rapid response documentation.
[2022-07-23] MEDS: LEVOTHYROXINE SODIUM 112 MCG TABLET PO (05:45)
[2022-07-23] MEDS: DOXYCYCLINE 100 MG/NS 100 ML 100 MG/100 ML BAG IVPB (05:46)
[2022-07-23] MEDS: MAGNESIUM SULF 1 GM/D5W 100 ML 1 GM/100 ML BAG IVPB (09:54)
[2022-07-23] MEDS: POTASSIUM CHLORIDE 20 MEQ TABLET PO (09:55)
[2022-07-23] MEDS: APIXABAN 5 MG TABLET PO ×2 (09:57→20:26)
[2022-07-23] MEDS: predniSONE 5 MG TABLET 15 MG BY MOUTH (09:57)
[2022-07-23] MEDS: CHOLESTYRAMINE LIGHT 4 GM POWD.PACK PO (09:58)
[2022-07-23] MEDS: CHOLECALCIFEROL 1,000 UNITS TABLET 1000 UNITS PO (09:58)
[2022-07-23] MEDS: CYANOCOBALAMIN 1,000 MCG TABLET 1000 MCG PO (09:59)
[2022-07-23] MEDS: DULoxetine HCL 20 MG CAPSULE.DR PO (09:59)
[2022-07-23] MEDS: SERTRALINE HCL 50 MG TABLET PO (09:59)
[2022-07-23] MEDS: PERFLUTREN LIPID MICROSPHERES 1.5 ML VIAL DILUTED TO 10 ML TOTAL VOLUME IV PUSH (10:06)
--- NOTE | 2022-07-23 10:06 | IVDEFINITY ---
Prior to administration of IV Definity the patient was educated on the risks and benefits of the imaging enhancing agent including potential adverse side effects. The patient verbalized understanding. Allergies were verified. No exclusion criteria were identified and at least one of the following inclusion criteria were met: 1) physician request, 2) patient technically difficult to image (per the [place] [employer] guidelines of two or more segments not discernable within the apical view), or 3) questionable left ventricular function. ?
[2022-07-23] MEDS: METOPROLOL SUCCINATE EXT REL 50 MG TABCR PO (10:44)
[2022-07-23] MEDS: ACETAMINOPHEN 325 MG TABLET 650 MG BY MOUTH (10:48)
--- NOTE | 2022-07-23 11:24 | PM.CNPUL ---
Assessment and Plan Assessment and plan (1) Chronic respiratory failure: Code(s): J96.10 - Chronic respiratory failure, unspecified whether with hypoxia or hypercapnia Status: Acute Assessment and Plan: this 72-year-old female with history of rheumatoid arthritis has had chronic respiratory failure with hypoxemia related to interstitial lung disease. The patient presented with shortness of breath. Diagnostic studies with chest CT showed no new lung infiltrates and stable pulmonary fibrosis compared to the chest CT she had in April of 2022. There is no evidence of pneumonia and pulmonary embolism is unlikely as the patient has been on direct anticoagulant for chronic atrial fibrillation. Very likely the shortness of breath was related to paroxysmal atrial fibrillation /congestive heart failure. The chest CT pattern is either chronic hypersensitivity pneumonitis or NSIP. The patient has had no known exposure to organic agents. Patient would like to have all future pulmonary follow ups at . (2) Atrial fibrillation: Code(s): I48.91 - Unspecified atrial fibrillation Status: Acute (3) Congestive heart failure: Code(s): I50.9 - Heart failure, unspecified Status: Chronic (4) Interstitial lung disease: Code(s): J84.9 - Interstitial pulmonary disease, unspecified Status: Acute (5) Rheumatoid arthritis: Code(s): M06.9 - Rheumatoid arthritis, unspecified Status: Acute (6) Obstructive sleep apnea on CPAP: Code(s): G47.33 - Obstructive sleep apnea (adult) (pediatric); Z99.89 - Dependence on other enabling machines and devices Status: Acute Assessment and Plan: Patient has brought her own CPAP device. She uses CPAP every night. Continue with CPAP support at night. History of Present Illness History of Present Illness Consult date: 07/23/22 Chief complaint: CHF, hypoxia, Elevated tropnin, MIKE Narrative: This 72-year-old female presented with shortness of breath. The patient has multiple medical problems including rheumatoid arthritis, history of hypertension, congestive heart failure, atrial fibrillation, obstructive sleep apnea on CPAP, history of interstitial lung disease associated with hypoxemic respiratory failure on supplemental oxygen. The patient presented with shortness of breath that started approximately 3 days ago. Three days ago she was at [facility] Emergency Room but did not await to be evaluated because of long wait. Patient had some cough and diarrhea. She had no fever chills hemoptysis. She has been using oxygen 2 liters/minute at rest and 4 L with activities.When she was seen in the emergency room at [facility] she was found to have atrial fibrillation in rapid ventricular response. Currently the patient doing better. The patient has had known interstitial lung disease for which he is followed up at a [facility]. Review previous chest CTs showed pattern consistent with either NSIP versus chronic hypersensitivity pneumonitis. She has no known exposure to organic agents. 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 On admission chest CT she had no new infiltrates compared to a previous chest CT done in April of 2022. Review of Systems Review of Systems: all system review is negative except as noted in HP and below PMFSH Past Medical History Medical History Atrial fibrillation Chronic diastolic (congestive) heart failure Chronic respiratory failure Wears home O2 2-4 Congestive heart failure Degenerative joint disease of right hip Depression with anxiety Diverticulosis DJD (degenerative joint disease), multiple sites DVT (deep venous thrombosis) 2004 Essential hypertension Hearing loss History of COVID-19 History of shingles Hyperlipidemia Hypothyroidism Interstitial lung disease Morbid obesity Nonspec
--- NOTE | 2022-07-23 11:25 | PM.IMPN ---
Progress Note: A&P Assessment and Plan (1) Atrial fibrillation with RVR: Code(s): I48.91 - Unspecified atrial fibrillation Status: Acute (2) Acute UTI: Code(s): N39.0 - Urinary tract infection, site not specified Status: Acute (3) Elevated troponin: Code(s): R77.8 - Other specified abnormalities of plasma proteins Status: Acute (4) MIKE (acute kidney injury): Code(s): N17.9 - Acute kidney failure, unspecified Status: Acute (5) Chronic diastolic (congestive) heart failure: Code(s): I50.32 - Chronic diastolic (congestive) heart failure Status: Acute (6) Chronic respiratory failure: Code(s): J96.10 - Chronic respiratory failure, unspecified whether with hypoxia or hypercapnia Status: Acute (7) DVT (deep venous thrombosis): Code(s): I82.409 - Acute embolism and thrombosis of unspecified deep veins of unspecified lower extremity Status: Acute (8) Hypothyroidism: Code(s): E03.9 - Hypothyroidism, unspecified Status: Acute (9) Hyperlipidemia: Code(s): E78.5 - Hyperlipidemia, unspecified Status: Acute (10) Essential hypertension: Code(s): I10 - Essential (primary) hypertension Status: Acute (11) Obstructive sleep apnea on CPAP: Code(s): G47.33 - Obstructive sleep apnea (adult) (pediatric); Z99.89 - Dependence on other enabling machines and devices Status: Acute (12) Depression with anxiety: Code(s): F41.8 - Other specified anxiety disorders Status: Acute (13) Rheumatoid arthritis: Code(s): M06.9 - Rheumatoid arthritis, unspecified Status: Acute Plan Patient presents with generalized weakness and shortness of breath past few days # sepsis: I suspect she present did with sepsis. She came in with generalized weakness AFib with RVR leukocytosis chills and evidence of UTI. Unclear if she has underlying pneumonia per se. She was also having diarrhea and nausea vomiting. CT chest abdomen pelvis revealed obstructive uropathy and chronic interstitial lung disease without any acute worsening. She is started on vancomycin and cefepime also doxycycline for atypical coverage. She is Immunocompromised with underlying history of rheumatoid arthritis. She is on chronic prednisone therapy. She has also recently started on Orencia 5 weeks back. COVID is negative Urine culture grows Enterococcus and Klebsiella. Await sensitivity # AFib with RVR patient was started on Cardizem bolus and infusion however blood pressure decreased. On metoprolol which is continued. Received a 1 time dose of digoxin. AFib with RVR improved continue telemetry monitoring Re-entered into AFib with RVR overnight. Diltiazem drip was restarted however late to hypotension again and stop now Cardiology consultation for AFib with RVR Already on Eliquis for stroke prophylaxis # chronic respiratory failure on oxygen at home. 2L at rest and 4 L with exertion. 4-6 L continuous. BNP is elevated. Acute on chronic needing BiPAP this morning. Pulmonary consultation. Underlying UIP no super added infection noted in the CT chest # urinary tract infection Rocephin urine culture with Klebsiella and Enterococcus currently on vancomycin and cefepime # Elevated troponin likely demand ischemia EKG with no acute signs of ischemic changes. Treated with IV Lasix. Will hold IV Lasix now recheck troponin likely related to sepsis renal dysfunction etc. continue to hold Lasix but may need eventually need to go on Lasix. # hyponatremia mild chronic. Continue to monitor # MIKE on CKD stage 3/4 creatinine of 2.9 creatinine worsened to 3.4 with diuresis. Baseline creatinine 1.3. Held diuresis Start IV hydration nephrology consultation but will stop IV hydration as she went into respiratory distress last night partly could be related to congestive heart failure # chronic diastolic heart failure. Well compensated but harder
--- NOTE | 2022-07-23 13:13 | WPDANESEPPF ---
Anes - Initial Pre Proc Eval Procedure: Operation Date: 07/24/22 07:30 Proposed Procedures p Cystoscopy, Left Stent Placement - Kaden Calderon MD Date/Time: 07/23/22 13:13 Surgeon: Jabier Contreras MD Pre Op Diagnosis: CHF, hypoxia, Elevated tropnin, MIKE Patient Data Age: 72 Gender: F Height: 1.57 m Weight: 114.8 kg Last Vital Signs Temp 35.9 C L 07/23/22 11:54 Pulse 87 07/23/22 12:00 Resp 20 07/23/22 11:54 BP 100/56 L 07/23/22 11:54 Pulse Ox 97 07/23/22 11:54 O2 Del Method Nasal Cannula 07/23/22 10:19 O2 Flow Rate 2 07/23/22 10:19 Allergies Allergy/AdvReac Type Severity Reaction Status Date / Time No Known Allergies Allergy Verified 07/21/22 14:03 Home Medications Medication Instructions Recorded Confirmed Type Calcium 600-D3 Plus (mag-zinc) 1 tablet PO BID 07/21/22 07/21/22 History abatacept 125 mg/mL subcutaneous 125 mg subcut WEEKLY 07/21/22 07/21/22 History syringe (Orencia) acetaminophen 325 mg chewable 650 mg PO Q4-6H PRN Pain 07/21/22 07/21/22 History tablet apixaban 5 mg tablet (Eliquis) 5 mg PO BID 07/21/22 07/21/22 History cholecalciferol (vitamin D3) 25 25 mcg PO DAILY 07/21/22 07/21/22 History mcg (1,000 unit) capsule cholestyramine-aspartame 4 gram 4 g PO DAILY 07/21/22 07/21/22 History oral powder for susp in a packet (Cholestyramine Light) cyanocobalamin (vitamin B-12) 1,000 mcg PO DAILY 07/21/22 07/21/22 History 1,000 mcg tablet duloxetine 20 mg capsule,delayed 20 mg PO DAILY 07/21/22 07/21/22 History release furosemide 20 mg tablet 20 mg PO DAILY 07/21/22 07/21/22 History hydroxychloroquine 200 mg tablet 200 mg PO BID 07/21/22 07/21/22 History ipratropium 0.5 mg-albuterol 3 mg 3 ml inhalation Q6H PRN Shortness 07/21/22 07/21/22 History (2.5 mg base)/3 mL nebulization Of Breath soln levothyroxine 112 mcg capsule 112 mcg PO DAILY 07/21/22 07/21/22 History lisinopril 5 mg tablet 5 mg PO DAILY 07/21/22 07/21/22 History loperamide 2 mg capsule 2 mg PO Q8H PRN Diarrhea 07/21/22 07/21/22 History metoprolol succinate 25 mg 50 mg PO DAILY 07/21/22 07/21/22 History tablet,extended release 24 hr phenazopyridine 200 mg tablet 200 mg PO TID PRN Pain 07/21/22 07/21/22 History pravastatin 80 mg tablet 80 mg PO HS 07/21/22 07/21/22 History prednisone 5 mg tablet 15 mg DAILY 07/21/22 07/21/22 History sertraline 50 mg tablet 50 mg PO DAILY 07/21/22 07/21/22 History simethicone 80 mg chewable tablet 80 mg TID PRN Gastric Reflux 07/21/22 07/21/22 History tramadol 50 mg tablet 50 mg PO TID PRN Pain 07/21/22 07/21/22 History trimethoprim 100 mg tablet 100 mg PO HS 07/21/22 07/21/22 History Laboratory Tests 07/22/22 07/22/22 07/22/22 14:07 15:43 15:43 WBC RBC Hgb Hct MCV MCH MCHC RDW Plt Count MPV Immature Gran % (Auto) Neut % (Auto) Lymph % (Auto) [place] % (Auto) Eos % (Auto) Baso % (Auto) Lymph # (Auto) [place] # (Auto) Eos # (Auto) Baso # (Auto) Abs Immat Gran (auto) Absolute Neuts (auto) Absolute Nucleated RBC Total Counted Neutrophils % (Manual) Band Neutrophils % Lymphocytes % (Manual) Monocytes % (Manual) Basophils % (Manual) Metamyelocytes % Promyelocytes % (Man) Nucleated RBC % Abs Neuts (Manual) Abs Lymphs (Manual) Abs Monocytes (Manual) Abs Basophils (Manual) Nucleated RBCs Platelet Estimate % Immature Plt Fraction Poikilocytosis Anisocytosis Macrocytosis Rehan Cells Crenated Cell Acantho
--- NOTE | 2022-07-23 13:14 | P.PNNP_ITS ---
Progress Note: A&P Assessment and Plan (1) MIKE (acute kidney injury): Code(s): N17.9 - Acute kidney failure, unspecified Status: Acute Assessment and Plan: * suspect multifactorial: * due to afib with RVR * possible associated with relative hypotension * infection (UTI) * obstruction (left kidney) * holding GEORGI-I and diuretics now * follow trend of repeat labs and UOP (2) Stage 3b chronic kidney disease: Code(s): N18.32 - Chronic kidney disease, stage 3b Status: Chronic Assessment and Plan: * baseline creatinine usually runs ~ 1.2 - 1.6mg/dl * necessity of diuretic therapy to maintain her volume status given her diastolic heart failure likely precipitated by her pulmonary hypertension and suspected obstructive sleep apnea?is the main reason why her kidney function is abnormal * outpatient evaluation demonstrated a normal renal ultrasound, no significant proteinuria, and a negative serological evaluation? (3) Acute UTI: Code(s): N39.0 - Urinary tract infection, site not specified Status: Acute Assessment and Plan: * cultures with E.coli and Klebsiella * on IV antibiotcs (4) Atrial fibrillation with RVR: Code(s): I48.91 - Unspecified atrial fibrillation Status: Acute Assessment and Plan: * as noted on presentation * continue rate control strategy * continued on metoprolol as tolerated * already on anticoagulation (5) Chronic diastolic (congestive) heart failure: Code(s): I50.32 - Chronic diastolic (congestive) heart failure Status: Acute Assessment and Plan: * Echo ordered to re-assess * holding lasix and GEORGI-I due to #1 * follow volume status closely (6) Essential hypertension: Code(s): I10 - Essential (primary) hypertension Status: Acute Assessment and Plan: * follow trend of hemodynamics * attempt to optimize BP as tolerated to help with #1 * holding GEORGI-I at this time (7) Rheumatoid arthritis: Code(s): M06.9 - Rheumatoid arthritis, unspecified Status: Acute Assessment and Plan: * on plaquenil * remains on chronic steroids Will continue to follow. Subjective Date/time seen: 07/23/22 13:14 Issues/events noted overnight - rapid response called due to hypoxia and shortness of breath in association with Afib with RVR requiring BiPAP and cardizem gtt; subsequent imaging done with findings consistent with interstitial lung disease as well as left obstructive kidney stone with associated left hydro ureteronephrosis; Urology and Pulmonary consulted; Afib and respiratory status appear to be doing better. Exam Narrative: General: frail and ill appearing female in NAD Heart: normal S1 and S2; no rub Lungs: coarse breath sounds Abdomen: soft, nontender, nondistended, positive bowel sounds Extremities: no cyanosis or clubbing; trace edema Skin: warm and dry Objective Data Vital Signs Vital Signs: Vital Signs Temp Pulse Resp BP Pulse Ox O2 Del Method O2 Flow Rate 07/23/22 12:00 87 07/23/22 10:00 94 07/23/22 08:00 86 07/23/22 11:54 35.9 C L 92 20 100/56 L 97 07/23/22 10:19 98 Nasal Cannula 2 07/23/22 07:52 35.7 C L 101 H 18 96/60 L 98 07/23/22 06:00 98 07/23/22 01:30 37.5 C 107/66 07/23/22 00:40
--- NOTE | 2022-07-23 13:14 | PM.PNNEP ---
Progress Note: A&P Assessment and Plan (1) MIKE (acute kidney injury): Code(s): N17.9 - Acute kidney failure, unspecified Status: Acute Assessment and Plan: suspect multifactorial: due to afib with RVR possible associated with relative hypotension infection (UTI) obstruction (left kidney) holding GEORGI-I and diuretics now follow trend of repeat labs and UOP (2) Stage 3b chronic kidney disease: Code(s): N18.32 - Chronic kidney disease, stage 3b Status: Chronic Assessment and Plan: baseline creatinine usually runs ~ 1.2 - 1.6mg/dl necessity of diuretic therapy to maintain her volume status given her diastolic heart failure likely precipitated by her pulmonary hypertension and suspected obstructive sleep apnea?is the main reason why her kidney function is abnormal outpatient evaluation demonstrated a normal renal ultrasound, no significant proteinuria, and a negative serological evaluation? (3) Acute UTI: Code(s): N39.0 - Urinary tract infection, site not specified Status: Acute Assessment and Plan: cultures with E.coli and Klebsiella on IV antibiotcs (4) Atrial fibrillation with RVR: Code(s): I48.91 - Unspecified atrial fibrillation Status: Acute Assessment and Plan: as noted on presentation continue rate control strategy continued on metoprolol as tolerated already on anticoagulation (5) Chronic diastolic (congestive) heart failure: Code(s): I50.32 - Chronic diastolic (congestive) heart failure Status: Acute Assessment and Plan: Echo ordered to re-assess holding lasix and GEORGI-I due to #1 follow volume status closely (6) Essential hypertension: Code(s): I10 - Essential (primary) hypertension Status: Acute Assessment and Plan: follow trend of hemodynamics attempt to optimize BP as tolerated to help with #1 holding GEORGI-I at this time (7) Rheumatoid arthritis: Code(s): M06.9 - Rheumatoid arthritis, unspecified Status: Acute Assessment and Plan: on plaquenil remains on chronic steroids Will continue to follow. Subjective Date/time seen: 07/23/22 13:14 Issues/events noted overnight - rapid response called due to hypoxia and shortness of breath in association with Afib with RVR requiring BiPAP and cardizem gtt; subsequent imaging done with findings consistent with interstitial lung disease as well as left obstructive kidney stone with associated left hydroureteronephrosis; Urology and Pulmonary consulted; Afib and respiratory status appear to be doing better. Exam Narrative: General: frail and ill appearing female in NAD Heart: normal S1 and S2; no rub Lungs: coarse breath sounds Abdomen: soft, nontender, nondistended, positive bowel sounds Extremities: no cyanosis or clubbing; trace edema Skin: warm and dry Objective Data Vital Signs Vital Signs: Vital Signs Temp Pulse Resp BP Pulse Ox O2 Del Method O2 Flow Rate 07/23/22 12:00 87 07/23/22 10:00 94 07/23/22 08:00 86 07/23/22 11:54 35.9 C L 92 20 100/56 L 97 07/23/22 10:19 98 Nasal Cannula 2 07/23/22 07:52 35.7 C L 101 H 18 96/60 L 98 07/23/22 06:00 98 07/23/22 01:30 37.5 C 107/66 07/23/22 00:40 88/57 L 07/23/22 04:00 97 CPAP 4 07/23/22 04:00 102 H 07/23/22 04:00 36.8 C 68 20 94/58 L 97 07/22/22 22:05 89 30 H 97 BiPAP 07/23/22 02:00 117 H 07/23/22 00:00 137 H 07/23/22 00:00 82 L CPAP 4 07/22/22 22:00 137 H 07/22/22 20:00 85 07/22/22 20:00 99 Nasal Cannula 2 07/23/22 00:19 37.1 C 135 H 18 188/122 H 82 L Non-Rebreather Mask 15 07/22/22 23:16 87 99 07/23/22 00:08 126 H 07/22/22 23:43 37.6 C 86 24 H 119/57 L 98 07/22/22 22:15 129 H 152/114 H 07/22/22 20:00 36.6 C 98 18 119/57 L 99
--- NOTE | 2022-07-23 13:38 | WPDURCON ---
Assessment and Plan Assessment and plan (1) Left ureteral stone: Code(s): N20.1 - Calculus of ureter Status: Acute Assessment and Plan: In light of her current situation we should intervene on the stone. I planned on doing it today however she is just finishing a full lunch. It will be 8 hours before she can have anesthesia. She is currently stable so we will defer until tomorrow morning. We will plan on a very least left ureteral stent. Possible stone extraction given the fact she is clinically stable. (2) Urinary tract infection: Code(s): N39.0 - Urinary tract infection, site not specified Status: Acute Assessment and Plan: Urine cultures were positive for 2 organisms. She is on broad-spectrum antibiotics. Sensitivities are still pending. Continue these antibiotics Urology Consult Note HPI Date Seen: 07/23/22 Requesting Physician: Jabier Contreras MD Primary Care Provider: Modesto Reyez DO Consult Narrative Narrative: Ayanna Cash is a 72 year old female. She was admitted a few days ago for shortness of breath, arrhythmia, and signs of possible sepsis with mental status changes, nausea vomiting, diarrhea. I seen her in the past for overactive bladder as well as recurrent urinary tract infections. As part of my workup for recurrent urinary tract infections I did order renal bladder ultrasound to screen her for stones. Unfortunately she never got the test. She underwent a CT scan on this admission which shows a 1 cm distal left ureteral stone with mild hydronephrosis. Her urine culture is positive and she is on broad-spectrum antibiotics. My plan was to possibly put in a left ureteral stent today. When I went to her room she was just finishing lunch. This will delay surgery until tomorrow. She currently is afebrile. She has no flank pain. She has no blood in the urine. There is a Paige catheter in place. She has no current nausea vomiting. She appears overall stable Review of Systems Review of Systems: All systems reviewed & are unremarkable except as noted in HPI and below PMFSH Past Medical History Medical History Atrial fibrillation Chronic diastolic (congestive) heart failure Chronic respiratory failure Wears home O2 2-4 Congestive heart failure Degenerative joint disease of right hip Depression with anxiety Diverticulosis DJD (degenerative joint disease), multiple sites DVT (deep venous thrombosis) 2004 Essential hypertension Hearing loss History of COVID-19 History of shingles Hyperlipidemia Hypothyroidism Interstitial lung disease Morbid obesity Nonspecific interstitial pneumonitis Obstructive sleep apnea on CPAP Paroxysmal atrial fibrillation Pulmonary embolism 2004 Pulmonary hypertension Rheumatoid arthritis Stress incontinence Surgical History Surgical History History of bilateral knee replacement History of cardiac catheterization History of section, classical History of parathyroidectomy History of tonsillectomy and adenoidectomy Hx of arthroscopic knee surgery Right knee Hx of cholecystectomy Family History Family History Mother Hypertension Father Pulmonary emboli Rheumatoid arthritis Social History Social History Social History: The patient lives with her daughter who is the durable power tax attorney for healthcare. 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 She is a her son lives nearby. The patient has 5 children. She never smoked. No alcohol or drug use. Code status full code Smoking status: Never smoker Alcohol intake: never Substance use: never Spiritual care concerns: No Meds Home Medications and Allergies Home Medications Medication Instructions Recorded Confirmed
--- NOTE | 2022-07-23 13:47 | WPDCDIQUERY2 ---
CDI Query Clarification Request 07/23 Hospitalist documented: Patient presents with generalized weakness and shortness of breath past few days # sepsis: I suspect she present did with sepsis.? She came in with generalized weakness AFib with RVR leukocytosis chills and evidence of UTI.? Unclear if she has underlying pneumonia per se.? She was also having diarrhea and nausea vomiting.? CT chest abdomen pelvis revealed obstructive uropathy and chronic interstitial lung disease without any acute worsening.? She is started on vancomycin and cefepime also doxycycline for atypical coverage.? She is Immunocompromised with underlying history of rheumatoid arthritis.? She is on chronic prednisone therapy.? She has also recently started on Orencia 5 weeks back.? COVID is negative Urine culture grows Enterococcus and Klebsiella.? Await sensitivity 07/21/22 Patient with UTI, Pulse 132, resp. 28, WBC's 20.3, creatinine 2.90, IVF's and ATB therapy initiated, Temp. 96.6 Please clarify if Sepsis has been ruled in or ruled out. If ruled in, please add to problem list.
--- NOTE | 2022-07-23 14:23 | PM.CNCAR ---
Assessment and Plan Assessment and plan (1) Atrial fibrillation with RVR: Code(s): I48.91 - Unspecified atrial fibrillation Status: Acute Plan This is a 72-year-old lady with chronic persistent atrial fibrillation and significant underlying interstitial lung disease as well. She is hospitalized with a variety of noncardiac issues. Regarding her atrial fibrillation she is well rate controlled with metoprolol and systemically anticoagulated with apixaban. Her atrial fib does not need further attention or evaluation while she is in the hospital in my opinion. She of concern has a significant worsening of chronic kidney disease her creatinine is up to 3 now on I believe her baseline is about 1.5. We will follow her in the hospital in a p.r.n. fashion and appropriate follow-up with Dr. Reyes is already scheduled in our office regarding her chronic atrial fibrillation. Obed Sands MD [facility] History of Present Illness History of Present Illness Consult date/time: 07/23/22 14:23 Consult reason: atrial fibrillation Reason For Visit: CHF, hypoxia, Elevated tropnin, MIEK Narrative: This is a 72-year-old woman who is known to Dr. Reyes of our practice with a history of chronic atrial fibrillation. I am seeing her at the request of the hospitalist because of atrial fibrillation. The patient came into the hospital over the weekend with complaints of shortness of breath and altered mental status in her home. She had a variety of other complaints as well as including diarrhea and feeling well in general. She was admitted to the hospital for further evaluation of this. She has a history of chronic atrial fibrillation and has been followed by my partner, Dr. Reyes for a number of years. In the past she was treated with a rhythm control with amiodarone and was successfully cardioverted. In recent years she has lapsed into chronic persistent atrial fibrillation and is man managed with a rate control and anticoagulation strategy. She has been taking metoprolol for heart rate control and apixaban for anticoagulation. She has a history of chronic lung disease, rheumatoid arthritis, morbid obesity as well. She was very ill this past summer and was hospitalized here briefly in April with shortness of breath and had COVID. She was actually transferred over to [place] where she was hospitalized for another couple of weeks for treatment of that. According to the records while she was there she became problematically bradycardic and her metoprolol and remdesivir were discontinued. She was last seen in our office on 06/22/2022 by the nurse practitioner just last month and was doing well at that time. Metoprolol was added back to her medical regimen since she was had a rapid ventricular response in the office although she was really unaware of that. She had a outpatient monitor done last week that appear to demonstrate good rate control. She does not offer any other complaints at this time. Review of Systems Constitutional: Constitutional: Reports fatigue and Reports lethargy Eyes: Eyes: Reports no additional eye complaints ENT: Reports system reviewed and no additional complaints, except as documented Cardiovascular: Cardiovascular: Reports no additional cardiovascular complaints Respiratory: Respiratory: Reports dyspnea Gastrointestinal: Gastrointestinal: Reports as per HPI and Reports diarrhea Musculoskeletal: Musculoskeletal: Reports no additional musculoskeletal complaints Integumentary/Breasts: Skin/Breast: Reports system reviewed and no additional complaints, except as docu Neurologic: Reports Abnormal speech present Endocrine: Endocrine: Reports no additional endocrine complaints Hematologic/Lymphatic: Hematologic/Lymphatic: Reports no additional hematologic/lymphatic complaints Allergic/Immunologic: Allergic/Immunologic: Reports no additional allergic/immunologic complaints PMFSH Past Medical History Medical History
[2022-07-23] MEDS: CEFEPIME 0.5 GM in DEXTROSE 5% IN WATER 50 ML IVPB (14:38)
[2022-07-23] MEDS: PRAVASTATIN SODIUM 20 MG TABLET 80 MG PO (20:26)
[2022-07-23] MEDS: TRIMETHOPRIM 100 MG TABLET PO (20:26)
[2022-07-24] VITALS (20 sets, daily range): BP systolic 115–142; BP diastolic 59–81; PULSE 60–99; RESP 12–20; TEMP 35.6–37; O2SAT 97–100
[2022-07-24 04:47] LABS: Hematocrit 31.6 % (37.0-47.0); Hemoglobin 10.1 g/dL (12.0-15.0); Mean Corpuscular Hemoglobin 30.9 pg (26-34); Mean Corpuscular Volume 96.6 fl (80-100); Mean Platelet Volume 10.6 fl (7.4-10.4); Platelet Count Result 161 k/mm3 (150-375); Red Blood Count 3.27 M/mm3 (4.2-5.4); White Blood Count 17.7 K/mm3 (4.5-10.0)
[2022-07-24 05:04] LABS: Alanine Aminotransferase 15 U/L (6-35); Albumin Level 3.3 g/dL (3.5-5.1); Alkaline Phosphatase 73 U/L (38-126); Anion Gap 11 mmol/L (8-16); Aspartate Amino Transferase 18 U/L (14-36); Bilirubin,Total 0.3 mg/dL (0.2-1.3); Blood Urea Nitrogen 59 mg/dL (7-17); Calcium 9.5 mg/dL (8.4-10.2); Carbon Dioxide 23 mmol/L (22-30); Chloride 101 mmol/L (98-107); Estimated CRCL calculation 22 ml/min; Estimated Glomerular Filt Rate 19; Glucose 103 mg/dL (65-110); Magnesium 2.1 mg/dL (1.6-2.3); Potassium 4.4 mmol/L (3.4-5.0); Sodium 135 mmol/L (137-145)
[2022-07-24 05:12] LABS: Band Neutrophils Percent 5 % (0-6); Eosinophils Absolute Manual 0.17 K/mm3 (0.02-0.5); Eosinophils Percent Manual 1 % (0-4); Lymphocytes Absolute Manual 1.06 K/mm3 (1.1-4.5); Metamyelocytes Percent 1 %; Monocytes Absolute Manual 1.06 K/mm3 (0.1-0.90); Monocytes Percent Manual 6 % (3-9); Neutrophils Absolute Manual 15.22 K/mm3 (1.7-7.2); Neutrophils Percent Manual 81 % (46-73); Platelet Estimate Adequate (Adequate); Total Cells Counted 100
[2022-07-24 05:13] LABS: Anisocytosis 1+ (NORMAL); Burr Cells 1+ (NORMAL)
[2022-07-24] MEDS: LACTATED RINGERS 1,000 ML 30 ML IV CONT (06:40)
--- NOTE | 2022-07-24 07:23 | WPDHPUPDATE1 ---
History and Physical Update Update Date/Time: 07/24/22 07:23 History and Physical has been reviewed, including an updated exam of the patient. There are NO changes in the patient's condition. Risks, benefits, and alternatives have been discussed and questions answered. Patient agrees to proceed with procedure. Patient with a distal left obstructing ureteral calculus. She has been on ab for several days. Have discussed possible ureteroscopy with laser, stone removal with stent placement, retrograde as long as no efflux of purulent urine with placement of wire.
[2022-07-24] MEDS: LIDOCAINE HCL 2% GEL UROJET 10 ML PKG MUCOUS MEM (07:51)
--- NOTE | 2022-07-24 08:13 | W.PM.PROC2 ---
Procedure Note - Detailed Date of Procedure 07/24/22 Pre-op Diagnosis Obstructing distal left ureteral calculus with hydronephrosis Post-op Diagnosis Same Procedure Performed Cystoscopy, left retrograde pyelogram, left ureteroscopy with stone extraction, left ureteral stent placement 4.8 [place] contour Surgeon Kaden Calderon MD Anesthesia General Description of Procedure Patient is taken the operative suite correctly identified. Once anesthesia was obtained she was placed in the dorsal lithotomy position and prepped and draped usual sterile fashion. Nineteen [place] scope inserted the bladder. There were no tumors noted. The left ureteral orifice was visualized and a guidewire was unsuccessful in placement. A required placement of ear rigid ureteral scope into the orifice to manipulate the wire past the stone. At this point there was fairly clear efflux. Given the distal location of the stone with proceeded to place a an escape basket around the stone. It was retrieved in 1 piece. It was sent for analysis. Reinspection revealed no residual stone. Pyelogram was then performed to confirm placement the stent. 4.8 [place] contour stent was placed with the proximal end coiled in the left renal pelvis and the distal in the bladder. Paige catheter 16 [place] was then placed inflated with 10 cc of sterile water. Patient is taken recovery stable condition. Will plan on stent removal in a couple of weeks. Drains Yes Packing No Pathology Yes Complications No immediate complications Condition Stable Disposition PACU
[2022-07-24] MEDS: CHOLESTYRAMINE LIGHT 4 GM POWD.PACK PO (10:00)
[2022-07-24] MEDS: METOPROLOL SUCCINATE EXT REL 50 MG TABCR PO (10:02)
[2022-07-24] MEDS: CHOLECALCIFEROL 1,000 UNITS TABLET 1000 UNITS PO (10:02)
[2022-07-24] MEDS: SERTRALINE HCL 50 MG TABLET PO (10:02)
[2022-07-24] MEDS: LEVOTHYROXINE SODIUM 112 MCG TABLET PO (10:02)
[2022-07-24] MEDS: predniSONE 5 MG TABLET 15 MG BY MOUTH (10:03)
[2022-07-24] MEDS: CYANOCOBALAMIN 1,000 MCG TABLET 1000 MCG PO (10:03)
[2022-07-24] MEDS: APIXABAN 5 MG TABLET PO ×2 (10:03→22:40)
[2022-07-24] MEDS: DULoxetine HCL 20 MG CAPSULE.DR PO (10:03)
[2022-07-24] MEDS: ACETAMINOPHEN 325 MG TABLET 650 MG BY MOUTH ×2 (10:08→22:39)
--- NOTE | 2022-07-24 11:31 | PM.PNNEP ---
Progress Note: A&P Assessment and Plan (1) MIKE (acute kidney injury): Code(s): N17.9 - Acute kidney failure, unspecified Status: Acute Assessment and Plan: suspect multifactorial: due to afib with RVR possible associated with relative hypotension infection (UTI) obstruction (left kidney) holding GEORGI-I and diuretics now follow trend of repeat labs and UOP (2) Stage 3b chronic kidney disease: Code(s): N18.32 - Chronic kidney disease, stage 3b Status: Chronic Assessment and Plan: baseline creatinine usually runs ~ 1.2 - 1.6mg/dl necessity of diuretic therapy to maintain her volume status given her diastolic heart failure likely precipitated by her pulmonary hypertension and suspected obstructive sleep apnea?is the main reason why her kidney function is abnormal outpatient evaluation demonstrated a normal renal ultrasound, no significant proteinuria, and a negative serological evaluation? (3) Acute UTI: Code(s): N39.0 - Urinary tract infection, site not specified Status: Acute Assessment and Plan: cultures with E.coli and Klebsiella on IV antibiotcs (4) Left ureteral stone: Code(s): N20.1 - Calculus of ureter Status: Acute Assessment and Plan: associated with obstructive uropathy (left kidney) s/p cystoscopy, left retrograde pyelogram, left ureteroscopy with stone extraction and left ureteral stent placement (on 07/24/22) Urology following (5) Atrial fibrillation with RVR: Code(s): I48.91 - Unspecified atrial fibrillation Status: Acute Assessment and Plan: as noted on presentation continue rate control strategy continued on metoprolol as tolerated already on anticoagulation (6) Chronic diastolic (congestive) heart failure: Code(s): I50.32 - Chronic diastolic (congestive) heart failure Status: Acute Assessment and Plan: Echo ordered to re-assess holding lasix and GEORGI-I due to #1 follow volume status closely (7) Essential hypertension: Code(s): I10 - Essential (primary) hypertension Status: Acute Assessment and Plan: follow trend of hemodynamics attempt to optimize BP as tolerated to help with #1 holding GEORGI-I at this time (8) Rheumatoid arthritis: Code(s): M06.9 - Rheumatoid arthritis, unspecified Status: Acute Assessment and Plan: on plaquenil remains on chronic steroids Will continue to follow. Subjective Date/time seen: 08/30/22 11:31 Seen by Urology yesterday and is s/p operative intervention earlier this morning; some improvement in renal function noted with reasonable urine output noted; respiratory status seems stable if not better; otherwise, she states she feels pretty good. Exam Narrative: General: frail and ill appearing female in NAD Heart: normal S1 and S2; no rub Lungs: coarse breath sounds Abdomen: soft, nontender, nondistended, positive bowel sounds Extremities: no cyanosis or clubbing; trace edema Skin: warm and intact Objective Data Vital Signs Vital Signs: Vital Signs Temp Pulse Resp BP Pulse Ox O2 Del Method O2 Flow Rate 07/24/22 10:00 81 07/24/22 09:50 100 Nasal Cannula 2 07/24/22 08:55 71 20 124/59 L 100 Nasal Cannula 2 07/24/22 08:45 74 20 134/59 L 100 Nasal Cannula 2 07/24/22 08:30 70 20 122/70 100 Nasal Cannula 2 07/24/22 08:20 37.0 C 76 20 128/81 100 Simple Face Mask 8 07/24/22 06:00 74 07/24/22 04:00 36.7 C 71 20 142/79 H 97 07/24/22 05:27 79 97 07/24/22 04:00 98 CPAP 4 07/24/22 04:00 70 07/24/22 02:00 80 07/24/22 02:57 75 98 07/24/22 00:00 83 07/23/22 22:00 77 07/24/22 00:00 97 CPAP 4 07/23/22 23:59 36.8 C 67 24 H 144/67 H 97 07/23/22 20:00 97 Nasal Cannula 4 07/23/22 20:00 72 07/23/22 21:47 77 96 07/23/22 2
--- NOTE | 2022-07-24 11:31 | P.PNNP_ITS ---
Progress Note: A&P Assessment and Plan (1) MIKE (acute kidney injury): Code(s): N17.9 - Acute kidney failure, unspecified Status: Acute Assessment and Plan: * suspect multifactorial: * due to afib with RVR * possible associated with relative hypotension * infection (UTI) * obstruction (left kidney) * holding GEORGI-I and diuretics now * follow trend of repeat labs and UOP (2) Stage 3b chronic kidney disease: Code(s): N18.32 - Chronic kidney disease, stage 3b Status: Chronic Assessment and Plan: * baseline creatinine usually runs ~ 1.2 - 1.6mg/dl * necessity of diuretic therapy to maintain her volume status given her diastolic heart failure likely precipitated by her pulmonary hypertension and suspected obstructive sleep apnea?is the main reason why her kidney function is abnormal * outpatient evaluation demonstrated a normal renal ultrasound, no significant proteinuria, and a negative serological evaluation? (3) Acute UTI: Code(s): N39.0 - Urinary tract infection, site not specified Status: Acute Assessment and Plan: * cultures with E.coli and Klebsiella * on IV antibiotcs (4) Left ureteral stone: Code(s): N20.1 - Calculus of ureter Status: Acute Assessment and Plan: * associated with obstructive uropathy (left kidney) * s/p cystoscopy, left retrograde pyelogram, left ureteroscopy with stone extraction and left ureteral stent placement (on 07/24/22) * Urology following (5) Atrial fibrillation with RVR: Code(s): I48.91 - Unspecified atrial fibrillation Status: Acute Assessment and Plan: * as noted on presentation * continue rate control strategy * continued on metoprolol as tolerated * already on anticoagulation (6) Chronic diastolic (congestive) heart failure: Code(s): I50.32 - Chronic diastolic (congestive) heart failure Status: Acute Assessment and Plan: * Echo ordered to re-assess * holding lasix and GEORGI-I due to #1 * follow volume status closely (7) Essential hypertension: Code(s): I10 - Essential (primary) hypertension Status: Acute Assessment and Plan: * follow trend of hemodynamics * attempt to optimize BP as tolerated to help with #1 * holding GEORGI-I at this time (8) Rheumatoid arthritis: Code(s): M06.9 - Rheumatoid arthritis, unspecified Status: Acute Assessment and Plan: * on plaquenil * remains on chronic steroids Will continue to follow. Subjective Date/time seen: 07/24/22 11:31 Seen by Urology yesterday and is s/p operative intervention earlier this morning; some improvement in renal function noted with reasonable urine output noted; respiratory status seems stable if not better; otherwise, she states she feels pretty good. Exam Narrative: General: frail and ill appearing female in NAD Heart: normal S1 and S2; no rub Lungs: coarse breath sounds Abdomen: soft, nontender, nondistended, positive bowel sounds Extremities: no cyanosis or clubbing; trace edema Skin: warm and intact Objective Data Vital Signs Vital Signs: Vital Signs Temp Pulse Resp BP Pulse Ox O2 Del Method O2 Flow Rate 07/24/22 10:00 81 07/24/22 09:50 100 Nasal Cannula 2 07/24/22 08:55 71 20 124/59 L 100 Nasal Cannula 2 07/24/22 08:45 72
[2022-07-24] MEDS: CEFEPIME 0.5 GM in DEXTROSE 5% IN WATER 50 ML IVPB (14:14)
--- NOTE | 2022-07-24 15:08 | PM.IMPN ---
Progress Note: A&P Assessment and Plan (1) Atrial fibrillation with RVR: Code(s): I48.91 - Unspecified atrial fibrillation Status: Acute (2) Acute UTI: Code(s): N39.0 - Urinary tract infection, site not specified Status: Acute (3) Elevated troponin: Code(s): R77.8 - Other specified abnormalities of plasma proteins Status: Acute (4) MIKE (acute kidney injury): Code(s): N17.9 - Acute kidney failure, unspecified Status: Acute (5) Chronic diastolic (congestive) heart failure: Code(s): I50.32 - Chronic diastolic (congestive) heart failure Status: Acute (6) Chronic respiratory failure: Code(s): J96.10 - Chronic respiratory failure, unspecified whether with hypoxia or hypercapnia Status: Acute (7) DVT (deep venous thrombosis): Code(s): I82.409 - Acute embolism and thrombosis of unspecified deep veins of unspecified lower extremity Status: Acute (8) Hypothyroidism: Code(s): E03.9 - Hypothyroidism, unspecified Status: Acute (9) Hyperlipidemia: Code(s): E78.5 - Hyperlipidemia, unspecified Status: Acute (10) Essential hypertension: Code(s): I10 - Essential (primary) hypertension Status: Acute (11) Obstructive sleep apnea on CPAP: Code(s): G47.33 - Obstructive sleep apnea (adult) (pediatric); Z99.89 - Dependence on other enabling machines and devices Status: Acute (12) Depression with anxiety: Code(s): F41.8 - Other specified anxiety disorders Status: Acute (13) Rheumatoid arthritis: Code(s): M06.9 - Rheumatoid arthritis, unspecified Status: Acute (14) Sepsis: Code(s): A41.9 - Sepsis, unspecified organism Status: Acute Plan Patient presents with generalized weakness and shortness of breath past few days # sepsis: I suspect she presented with sepsis. She came in with generalized weakness AFib with RVR leukocytosis chills and evidence of UTI. Unclear if she has underlying pneumonia per se. She was also having diarrhea and nausea vomiting. CT chest abdomen pelvis revealed obstructive uropathy and chronic interstitial lung disease without any acute worsening. She is started on vancomycin and cefepime also doxycycline for atypical coverage. She is Immunocompromised with underlying history of rheumatoid arthritis. She is on chronic prednisone therapy. She has also recently started on Orencia 5 weeks back. COVID is negative Urine culture grows Enterococcus and Klebsiella. Enterococcus is only sensitive to vancomycin. Will continue on vancomycin and cefepime for now. Need IV vancomycin for enterococcal UTI treatment. Cipro sensitive for Klebsiella UTI # AFib with RVR patient was started on Cardizem bolus and infusion however blood pressure decreased. On metoprolol which is continued. Received a 1 time dose of digoxin. AFib with RVR improved continue telemetry monitoring Re-entered into AFib with RVR overnight. Diltiazem drip was restarted however late to hypotension again and stop now Cardiology consultation for AFib with RVR. AFib is rate controlled now Already on Eliquis for stroke prophylaxis # chronic respiratory failure on oxygen at home. 2L at rest and 4 L with exertion. 4-6 L continuous. BNP is elevated. Acute on chronic needing BiPAP this morning. Pulmonary consultation. Underlying UIP no super added infection noted in the CT chest. Doxycycline stopped # urinary tract infection Rocephin urine culture with Klebsiella and Enterococcus currently on vancomycin and cefepime # Elevated troponin likely demand ischemia EKG with no acute signs of ischemic changes. Treated with IV Lasix. Will hold IV Lasix now recheck troponin likely related to sepsis renal dysfunction etc. continue to hold Lasix but may need eventually need to go on Lasix. # hyponatremia mild chronic. Continue to monitor # MIKE on CKD stage 3/4 creatinine of 2.9 creatinine worse
[2022-07-24] MEDS: PRAVASTATIN SODIUM 20 MG TABLET 80 MG PO (22:40)
[2022-07-24] MEDS: TRIMETHOPRIM 100 MG TABLET PO (22:40)
[2022-07-25] VITALS (20 sets, daily range): BP systolic 114–146; BP diastolic 55–70; PULSE 60–85; RESP 12–20; TEMP 36.2–36.8; O2SAT 96–100
[2022-07-25 05:02] LABS: Basophils Absolute Auto 0.1 K/mm3 (0.0-0.1); Basophils Percent Auto 0.4 % (0.2-1.2); Eosinophils Absolute Auto 0.1 K/mm3 (0-0.3); Eosinophils Percent Auto 0.8 % (0-4.4); Hematocrit 32.6 % (37.0-47.0); Immature Granulocyte Absolute 0.32 K/mm3 (0.00-0.031); Immature Granulocyte Percent A 2.3 % (0-0.5); Lymphocytes Absolute Auto 1.21 K/mm3 (0.9-3.2); Lymphocytes Percent Auto 8.7 % (18.3-44.2); Mean Corpuscular HGB Conc 30.7 g/dl (32-36); Mean Corpuscular Hemoglobin 30.4 pg (26-34); Mean Corpuscular Volume 99.1 fl (80-100); Mean Platelet Volume 10.4 fl (7.4-10.4); Monocytes Absolute Auto 1.7 K/mm3 (0.1-0.6); Monocytes Percent Auto 11.9 % (2.6-8.5); Neutrophils Absolute Auto 10.6 K/mm3 (1.3-6.7); Neutrophils Percent Auto 75.9 % (45.5-73.1); Platelet Count Result 157 k/mm3 (150-375); Red Blood Count 3.29 M/mm3 (4.2-5.4); Red Cell Distribution Width 15.1 % (11.5-14.5)
[2022-07-25 05:14] LABS: Alanine Aminotransferase 13 U/L (6-35); Albumin Level 3.1 g/dL (3.5-5.1); Alkaline Phosphatase 64 U/L (38-126); Anion Gap 13 mmol/L (8-16); Aspartate Amino Transferase 15 U/L (14-36); Bilirubin,Total 0.2 mg/dL (0.2-1.3); Blood Urea Nitrogen 58 mg/dL (7-17); Calcium 9.4 mg/dL (8.4-10.2); Carbon Dioxide 23 mmol/L (22-30); Chloride 101 mmol/L (98-107); Estimated CRCL calculation 30 ml/min; Estimated Glomerular Filt Rate 28; Glucose 90 mg/dL (65-110); Magnesium 1.9 mg/dL (1.6-2.3); Potassium 4.6 mmol/L (3.4-5.0); Sodium 137 mmol/L (137-145)
[2022-07-25] MEDS: LEVOTHYROXINE SODIUM 112 MCG TABLET PO (06:05)
[2022-07-25] MEDS: DULoxetine HCL 20 MG CAPSULE.DR PO (09:23)
[2022-07-25] MEDS: METOPROLOL SUCCINATE EXT REL 50 MG TABCR PO (09:23)
[2022-07-25] MEDS: CHOLESTYRAMINE LIGHT 4 GM POWD.PACK PO (09:24)
[2022-07-25] MEDS: APIXABAN 5 MG TABLET PO ×2 (09:24→20:31)
[2022-07-25] MEDS: CYANOCOBALAMIN 1,000 MCG TABLET 1000 MCG PO (09:24)
[2022-07-25] MEDS: predniSONE 5 MG TABLET 15 MG BY MOUTH (09:24)
[2022-07-25] MEDS: SERTRALINE HCL 50 MG TABLET PO (09:24)
[2022-07-25] MEDS: CHOLECALCIFEROL 1,000 UNITS TABLET 1000 UNITS PO (09:24)
--- NOTE | 2022-07-25 09:25 | PM.PNPUL ---
Progress Note: A&P Assessment and Plan (1) Sepsis: Code(s): A41.9 - Sepsis, unspecified organism Status: Acute (2) Chronic respiratory failure: Qualifiers: Respiratory failure complication: unspecified whether with hypoxia or hypercapnia Qualified Code(s): J96.10 - Chronic respiratory failure, unspecified whether with hypoxia or hypercapnia Code(s): J96.10 - Chronic respiratory failure, unspecified whether with hypoxia or hypercapnia Status: Acute Assessment and Plan: 72-year-old female with a history of hypoxemic respiratory failure related to interstitial lung disease, history of rheumatoid arthritis, currently on treatment for urinary tract infection. Clinically patient has significantly improved since admission. Interstitial lung disease essentially unchanged since April of 2022. On last chest CT she had no new lung infiltrates. She has had no new respiratory symptoms. She remains on supplemental oxygen. Patient will continue to follow-up with Pulmonary Services at [facility] post discharge. Will sign off please call with any problems (3) STARR on CPAP: Code(s): G47.33 - Obstructive sleep apnea (adult) (pediatric); Z99.89 - Dependence on other enabling machines and devices Status: Chronic (4) Interstitial lung disease: Code(s): J84.9 - Interstitial pulmonary disease, unspecified Status: Acute (5) Acute on chronic renal failure: Qualifiers: Acute renal failure type: unspecified Chronic kidney disease stage: unspecified stage Qualified Code(s): N17.9 - Acute kidney failure, unspecified; N18.9 - Chronic kidney disease, unspecified Code(s): N17.9 - Acute kidney failure, unspecified; N18.9 - Chronic kidney disease, unspecified Status: Acute (6) Paroxysmal atrial fibrillation: Code(s): I48.0 - Paroxysmal atrial fibrillation Status: Acute Subjective Date/time seen: 07/25/22 09:25 Patient doing a lot better. She has no new respiratory symptoms she remains on supplemental oxygen. She has been treated for urinary tract infection with clinical improvement. She has undergone cystoscopy, left retrograde pyelogram, left ureteroscopy with stone extraction and left ureteral stent placement. Review of Systems Review of Systems: All systems reviewed & are unremarkable except as noted in HPI and below Exam Narrative: GENERAL APPEARANCE: Well developed, well nourished, alert and cooperative, and appears to be in mild respiratory distress while on supplemental oxygen. SKIN: Inspection of the skin reveals no rashes, ulcerations or petechiae. HEENT: Sclerae anicteric and conjunctivae pink and moist. Extraocular movements were intact and pupils were equal, round. NECK: Supple. There was no thyroid enlargement, and no tenderness, or masses were felt. CHEST: Normal AP diameter and normal contour without any kyphoscoliosis. LUNGS: Auscultation of the lungs revealed normal breath sounds without any other adventitious sounds or rubs. CARDIAC: There was an irregular rate and rhythm without any murmurs. ABDOMEN: Soft and nontender with normal bowel sounds. There was no organomegaly. LYMPH NODES: No lymphadenopathy was appreciated in the neck. EXTREMITIES: No cyanosis. No clubbing. Trace pedal edema NEUROLOGIC: Alert and oriented x 3. Normal affect. Objective Data Vital Signs Vital Signs: Vital Signs - 24 hr 07/24/22 09:50 07/24/22 10:00 07/24/22 12:08 Temperature 35.6 C L Pulse Rate 81 68 Respiratory Rate 20 Blood Pressure 121/69 Pulse Oximetry 100 100 Oxygen Delivery Nasal Cannula Oxygen Flow Rate 2 07/24/22 12:00 07/24/22 14:00 07/24/22 12:00 Temperature Pulse Rate 63 69 Respiratory Rate Blood Pressure Pulse Oximetry 100 Oxygen Delivery Nasal Cannula Oxygen Flow Rate 2 07/24/22 16:00 07/24/22 16:00 07/24/22 16:00 Temperature 36.3 C L Pulse Rate 73 60 Respiratory Rate 12 B
--- NOTE | 2022-07-25 12:42 | P.PNNP_ITS ---
Progress Note: A&P Assessment and Plan (1) MIKE (acute kidney injury): Code(s): N17.9 - Acute kidney failure, unspecified Status: Acute Assessment and Plan: * slow improvement with interventions to date * suspect multifactorial: * due to afib with RVR * possible associated with relative hypotension * infection (UTI) * obstruction with stone (left kidney) * holding GEORGI-I and diuretics now * follow trend of repeat labs and UOP (2) Stage 3b chronic kidney disease: Code(s): N18.32 - Chronic kidney disease, stage 3b Status: Chronic Assessment and Plan: * baseline creatinine usually runs ~ 1.2 - 1.6mg/dl * necessity of diuretic therapy to maintain her volume status given her diastolic heart failure likely precipitated by her pulmonary hypertension and suspected obstructive sleep apnea?is the main reason why her kidney function is abnormal * outpatient evaluation demonstrated a normal renal ultrasound, no significant proteinuria, and a negative serological evaluation? (3) Acute UTI: Code(s): N39.0 - Urinary tract infection, site not specified Status: Acute Assessment and Plan: * cultures with E.coli and Klebsiella * on antibiotcs (4) Left ureteral stone: Code(s): N20.1 - Calculus of ureter Status: Acute Assessment and Plan: * associated with obstructive uropathy (left kidney) * s/p cystoscopy, left retrograde pyelogram, left ureteroscopy with stone extraction and left ureteral stent placement (on 07/24/22) * Urology following with recommendations noted (5) Atrial fibrillation with RVR: Code(s): I48.91 - Unspecified atrial fibrillation Status: Acute Assessment and Plan: * as noted on presentation * continue rate control strategy * continued on metoprolol as tolerated * already on anticoagulation (6) Chronic diastolic (congestive) heart failure: Code(s): I50.32 - Chronic diastolic (congestive) heart failure Status: Acute Assessment and Plan: * Echo results noted * holding lasix and GEORGI-I due to #1 * will eventually need to restart, particularly diuretics * follow volume status closely (7) Essential hypertension: Code(s): I10 - Essential (primary) hypertension Status: Acute Assessment and Plan: * follow trend of hemodynamics * attempt to optimize BP as tolerated to help with #1 * holding GEORGI-I at this time (8) Rheumatoid arthritis: Code(s): M06.9 - Rheumatoid arthritis, unspecified Status: Acute Assessment and Plan: * on plaquenil * remains on chronic steroids Will continue to follow. Subjective Date/time seen: 07/25/22 12:42 Slow and steady progress in the last few days; breathing/respiratory status seems stable; tolerated Urology operative intervention yesterday morning without any issues/problems; renal function continues to improved as noted by AM labs; no acute distress voiced on my visit. Exam Narrative: General: frail and ill appearing female in NAD Heart: normal S1 and S2; no rub Lungs: coarse breath sounds Abdomen: soft, nontender, nondistended, positive bowel sounds Extremities: no cyanosis or clubbing; trace edema Skin: no rash or nodules Objective Data Vital Signs Vital Signs: Vital Signs Temp Pulse Resp BP Pulse Ox O2 Del Method O2 Flow Rate 07/25/22 12:00
--- NOTE | 2022-07-25 12:42 | PM.PNNEP ---
Progress Note: A&P Assessment and Plan (1) MIKE (acute kidney injury): Code(s): N17.9 - Acute kidney failure, unspecified Status: Acute Assessment and Plan: slow improvement with interventions to date suspect multifactorial: due to afib with RVR possible associated with relative hypotension infection (UTI) obstruction with stone (left kidney) holding GEORGI-I and diuretics now follow trend of repeat labs and UOP (2) Stage 3b chronic kidney disease: Code(s): N18.32 - Chronic kidney disease, stage 3b Status: Chronic Assessment and Plan: baseline creatinine usually runs ~ 1.2 - 1.6mg/dl necessity of diuretic therapy to maintain her volume status given her diastolic heart failure likely precipitated by her pulmonary hypertension and suspected obstructive sleep apnea?is the main reason why her kidney function is abnormal outpatient evaluation demonstrated a normal renal ultrasound, no significant proteinuria, and a negative serological evaluation? (3) Acute UTI: Code(s): N39.0 - Urinary tract infection, site not specified Status: Acute Assessment and Plan: cultures with E.coli and Klebsiella on antibiotcs (4) Left ureteral stone: Code(s): N20.1 - Calculus of ureter Status: Acute Assessment and Plan: associated with obstructive uropathy (left kidney) s/p cystoscopy, left retrograde pyelogram, left ureteroscopy with stone extraction and left ureteral stent placement (on 07/24/22) Urology following with recommendations noted (5) Atrial fibrillation with RVR: Code(s): I48.91 - Unspecified atrial fibrillation Status: Acute Assessment and Plan: as noted on presentation continue rate control strategy continued on metoprolol as tolerated already on anticoagulation (6) Chronic diastolic (congestive) heart failure: Code(s): I50.32 - Chronic diastolic (congestive) heart failure Status: Acute Assessment and Plan: Echo results noted holding lasix and GEORGI-I due to #1 will eventually need to restart, particularly diuretics follow volume status closely (7) Essential hypertension: Code(s): I10 - Essential (primary) hypertension Status: Acute Assessment and Plan: follow trend of hemodynamics attempt to optimize BP as tolerated to help with #1 holding GEORGI-I at this time (8) Rheumatoid arthritis: Code(s): M06.9 - Rheumatoid arthritis, unspecified Status: Acute Assessment and Plan: on plaquenil remains on chronic steroids Will continue to follow. Subjective Date/time seen: 07/25/22 12:42 Slow and steady progress in the last few days; breathing/respiratory status seems stable; tolerated Urology operative intervention yesterday morning without any issues/problems; renal function continues to improved as noted by AM labs; no acute distress voiced on my visit. Exam Narrative: General: frail and ill appearing female in NAD Heart: normal S1 and S2; no rub Lungs: coarse breath sounds Abdomen: soft, nontender, nondistended, positive bowel sounds Extremities: no cyanosis or clubbing; trace edema Skin: no rash or nodules Objective Data Vital Signs Vital Signs: Vital Signs Temp Pulse Resp BP Pulse Ox O2 Del Method O2 Flow Rate 07/25/22 12:00 36.4 C 82 12 146/67 H 100 07/25/22 10:00 66 07/25/22 08:00 Room Air 07/25/22 08:00 82 07/25/22 09:23 72 07/25/22 09:04 74 100 Nasal Cannula 2 07/25/22 07:56 36.8 C 70 14 132/70 100 07/25/22 06:00 62 07/25/22 04:00 36.6 C 65 20 132/67 100 07/25/22 04:00 60 07/25/22 03:42 65 98 CPAP 07/25/22 02:00 63 07/25/22 00:00 70 07/25/22 00:00 36.2 C L 69 20 116/55 L 99 07/24/22 22:00 63 07/24/22 20:00 69 07/24/22 21:45 98 CPAP 2 07/24/22 21:45 79 98 CPAP 07/24
[2022-07-25] MEDS: CEFEPIME 0.5 GM in DEXTROSE 5% IN WATER 50 ML IVPB (14:03)
--- NOTE | 2022-07-25 14:06 | WPDUROPN2 ---
Progress Note: A&P Assessment and Plan (1) Sepsis: Code(s): A41.9 - Sepsis, unspecified organism Status: Acute Assessment and Plan: Continue IV antibiotics which are sensitive to cultures. Recommend 10 days of appropriate oral antibiotics s/p discharge. (2) Ureteral stone: Code(s): N20.1 - Calculus of ureter Status: Acute Assessment and Plan: The patient will be scheduled for a Cysto with stent removal on the left under local anesthesia in the OR because she is unable to get up to our exam tables in the office. THis will be scheduled in 2 weeks. Ok to discharge when stable per urology. Keep andino catheter in until she is ambulatory and can get to the bathroom, then remove and do a voiding trial before discharge. Subjective Subjective Date/Time Seen: 07/25/22 14:06 Cystoscopy, left retrograde pyelogram, left stone extraction, left stent placement by Dr. Calderon yesterday. She is doing well today, sitting up in bed, tolerating diet and pain. Her urine cultures grew Klebsiella/Enterococcus both sensitive to Vancomycin and Ceftriaxone. Her WBC and creatinine are improved today and she is afebrile. Post Op day: 1 Review of Systems Respiratory: Respiratory: Reports no additional respiratory complaints Gastrointestinal: Gastrointestinal: Denies abdominal pain, Denies nausea and Denies vomiting Genitourinary: Genitourinary: Denies nocturia, Denies dysuria, Denies pelvic pain, Denies flank pain and Denies urinary urgency Exam Const: General: cooperative Resp: Effort & Inspection: normal respiratory effort Cardio: Rate: regular rate : General: No no CVA tenderness Urinary Catheter: Urinary Catheter: patent and draining and urine clear Objective Data Vital Signs Vital Signs: Vital Signs - 24 hr 07/24/22 16:00 07/24/22 16:00 07/24/22 16:00 Temperature 97.3 F L Pulse Rate 73 60 Respiratory Rate 12 Blood Pressure 120/61 Pulse Oximetry 99 99 Oxygen Delivery Nasal Cannula Oxygen Flow Rate 2 07/24/22 18:00 07/24/22 20:00 07/24/22 21:45 Temperature 97.7 F Pulse Rate 99 67 79 Respiratory Rate 20 Blood Pressure 115/62 Pulse Oximetry 100 98 Oxygen Delivery CPAP Oxygen Flow Rate 07/24/22 21:45 07/24/22 20:00 07/24/22 22:00 Temperature Pulse Rate 69 63 Respiratory Rate Blood Pressure Pulse Oximetry 98 Oxygen Delivery CPAP Oxygen Flow Rate 2 07/25/22 00:00 07/25/22 00:00 07/25/22 02:00 Temperature 97.1 F L Pulse Rate 69 70 63 Respiratory Rate 20 Blood Pressure 116/55 L Pulse Oximetry 99 Oxygen Delivery Oxygen Flow Rate 07/25/22 03:42 07/25/22 04:00 07/25/22 04:00 Temperature 97.8 F Pulse Rate 65 60 65 Respiratory Rate 20 Blood Pressure 132/67 Pulse Oximetry 98 100 Oxygen Delivery CPAP Oxygen Flow Rate 07/25/22 06:00 07/25/22 07:56 07/25/22 09:04 Temperature 98.2 F Pulse Rate 62 70 74 Respiratory Rate 14 Blood Pressure 132/70 Pulse Oximetry 100 100 Oxygen Delivery Nasal Cannula Oxygen Flow Rate 2 07/25/22 09:23 07/25/22 08:00 07/25/22 08:00 Temperature Pulse Rate 72 82 Respiratory Rate Blood Pressure Pulse Oximetry Oxygen Delivery Room Air Oxygen Flow Rate 07/25/22 10:00 07/25/22 12:00 Temperature 97.6 F Pulse Rate 66 82 Respiratory Rate 12 Blood Pressure 146/67 H Pulse Oximetry 100 Oxygen Delivery Oxygen Flow Rate Intake/Output Intake/Output: Intake & Output 07/22/22 07/23/22 07/24/22 07/25/22 23:59 23:59 23:59 23:59 Intake Total 1320 1070 490 830 Output Total 1575 1900 1850 700 Balance -423 -830 -1360 130 Meds/Results Medications: Active Medications Generic Name Dose Route Start Last Admin Trade Name Juvenal PRN Reason Stop Dose Admin Acetaminophen 650 mg 07/21/22 21:55 07/24/22 22:39 Acetaminophen 325 Mg Tablet BY MOUTH 650 mg Q4H PRN Administration Pain Rated 1-3 Albuterol
--- NOTE | 2022-07-25 16:18 | PM.IMPN ---
Progress Note: A&P Assessment and Plan (1) Sepsis: Code(s): A41.9 - Sepsis, unspecified organism Status: Acute (2) Atrial fibrillation with RVR: Code(s): I48.91 - Unspecified atrial fibrillation Status: Acute (3) Chronic respiratory failure: Code(s): J96.10 - Chronic respiratory failure, unspecified whether with hypoxia or hypercapnia Status: Acute (4) Acute UTI: Code(s): N39.0 - Urinary tract infection, site not specified Status: Acute (5) Ureteral stone: Code(s): N20.1 - Calculus of ureter Status: Acute (6) Elevated troponin: Code(s): R77.8 - Other specified abnormalities of plasma proteins Status: Acute (7) MIKE (acute kidney injury): Code(s): N17.9 - Acute kidney failure, unspecified Status: Acute (8) Chronic diastolic (congestive) heart failure: Code(s): I50.32 - Chronic diastolic (congestive) heart failure Status: Acute (9) DVT (deep venous thrombosis): Code(s): I82.409 - Acute embolism and thrombosis of unspecified deep veins of unspecified lower extremity Status: Acute (10) Hypothyroidism: Code(s): E03.9 - Hypothyroidism, unspecified Status: Acute (11) Hyperlipidemia: Code(s): E78.5 - Hyperlipidemia, unspecified Status: Acute (12) Essential hypertension: Code(s): I10 - Essential (primary) hypertension Status: Acute (13) Obstructive sleep apnea on CPAP: Code(s): G47.33 - Obstructive sleep apnea (adult) (pediatric); Z99.89 - Dependence on other enabling machines and devices Status: Acute (14) Depression with anxiety: Code(s): F41.8 - Other specified anxiety disorders Status: Acute (15) Rheumatoid arthritis: Code(s): M06.9 - Rheumatoid arthritis, unspecified Status: Acute Plan Patient presents with generalized weakness and shortness of breath past few days # sepsis: She came in with generalized weakness AFib with RVR, leukocytosis, chills and evidence of UTI. Unclear if she has underlying pneumonia per se. She was also having diarrhea and nausea and vomiting. CT chest abdomen pelvis revealed obstructive uropathy and chronic interstitial lung disease without any acute worsening. She is started on vancomycin and cefepime also doxycycline for atypical coverage. She is Immunocompromised with underlying history of rheumatoid arthritis. She is on chronic prednisone therapy. She has also recently started on Orencia 5 weeks back. COVID was negative Urine culture grows Enterococcus and Klebsiella. Enterococcus is only sensitive to vancomycin. Will continue on vancomycin and cefepime for now. Need IV vancomycin for enterococcal UTI treatment. Klebsiella UTI sensitive to Omnicef. # AFib with RVR patient was started on Cardizem bolus and infusion however blood pressure decreased. On metoprolol which is continued. Received a 1 time dose of digoxin. AFib with RVR improved continue telemetry monitoring Re-entered into AFib with RVR overnight. Diltiazem drip was restarted however late to hypotension again and stop now Cardiology consultation for AFib with RVR. AFib is rate controlled now Already on Eliquis for stroke prophylaxis. Continue Toprol # chronic respiratory failure on oxygen at home. 2L at rest and 4 L with exertion. 4-6 L continuous. BNP is elevated. Acute on chronic needing BiPAP this morning. Pulmonary consultation. Underlying UIP no super added infection noted in the CT chest. Doxycycline stopped. Start PT/OT. # urinary tract infection Rocephin urine culture with Klebsiella and Enterococcus currently on vancomycin and cefepime # Obstructing distal left ureteral calculus with hydronephrosis - s/p stent placement. Stone was retrieved. Plan for stent removal in 2 weeks. # Elevated troponin likely demand ischemia EKG with no acute signs of ischemic changes. Treated with IV Lasix. IV Lasix remains on now recheck tro
[2022-07-25] MEDS: TRIMETHOPRIM 100 MG TABLET PO (20:30)
[2022-07-25] MEDS: PRAVASTATIN SODIUM 20 MG TABLET 80 MG PO (20:30)
[2022-07-25 20:31] LABS: Vancomycin Trough 11.8 ug/mL (10.0-20.0)
[2022-07-25] MEDS: ACETAMINOPHEN 325 MG TABLET 650 MG BY MOUTH (20:33)
[2022-07-26] VITALS (17 sets, daily range): BP systolic 125–152; BP diastolic 64–88; PULSE 62–100; RESP 18–20; TEMP 35.6–36.7; O2SAT 95–100
[2022-07-26] MEDS: ACETAMINOPHEN 325 MG TABLET 650 MG BY MOUTH ×2 (02:31→20:32)
[2022-07-26 05:33] LABS: Basophils Absolute Auto 0.1 K/mm3 (0.0-0.1); Basophils Percent Auto 0.7 % (0.2-1.2); Eosinophils Absolute Auto 0.1 K/mm3 (0-0.3); Hematocrit 31.5 % (37.0-47.0); Immature Granulocyte Absolute 0.91 K/mm3 (0.00-0.031); Immature Granulocyte Percent A 6.5 % (0-0.5); Lymphocytes Absolute Auto 1.72 K/mm3 (0.9-3.2); Lymphocytes Percent Auto 12.2 % (18.3-44.2); Mean Corpuscular HGB Conc 31.7 g/dl (32-36); Mean Corpuscular Volume 97.5 fl (80-100); Mean Platelet Volume 10.2 fl (7.4-10.4); Monocytes Absolute Auto 1.8 K/mm3 (0.1-0.6); Monocytes Percent Auto 13.1 % (2.6-8.5); Neutrophils Absolute Auto 9.4 K/mm3 (1.3-6.7); Neutrophils Percent Auto 66.5 % (45.5-73.1); Platelet Count Result 186 k/mm3 (150-375); Red Blood Count 3.23 M/mm3 (4.2-5.4); White Blood Count 14.1 K/mm3 (4.5-10.0)
[2022-07-26 05:45] LABS: Albumin Level 2.9 g/dL (3.5-5.1); Anion Gap 9 mmol/L (8-16); Blood Urea Nitrogen 47 mg/dL (7-17); Calcium 9.3 mg/dL (8.4-10.2); Carbon Dioxide 25 mmol/L (22-30); Chloride 102 mmol/L (98-107); Estimated CRCL calculation 36 ml/min; Estimated Glomerular Filt Rate 34; Glucose 87 mg/dL (65-110); Magnesium 1.6 mg/dL (1.6-2.3); Phosphorus 3.7 mg/dL (2.5-4.5); Potassium 4.5 mmol/L (3.4-5.0); Sodium 136 mmol/L (137-145)
[2022-07-26] MEDS: LEVOTHYROXINE SODIUM 112 MCG TABLET PO (06:14)
[2022-07-26] MEDS: SERTRALINE HCL 50 MG TABLET PO (08:59)
[2022-07-26] MEDS: CHOLESTYRAMINE LIGHT 4 GM POWD.PACK PO (08:59)
[2022-07-26] MEDS: METOPROLOL SUCCINATE EXT REL 50 MG TABCR PO (08:59)
[2022-07-26] MEDS: CHOLECALCIFEROL 1,000 UNITS TABLET 1000 UNITS PO (09:00)
[2022-07-26] MEDS: DULoxetine HCL 20 MG CAPSULE.DR PO (09:00)
[2022-07-26] MEDS: APIXABAN 5 MG TABLET PO ×2 (09:00→20:33)
[2022-07-26] MEDS: predniSONE 5 MG TABLET 15 MG BY MOUTH (09:00)
[2022-07-26] MEDS: CYANOCOBALAMIN 1,000 MCG TABLET 1000 MCG PO (09:00)
--- NOTE | 2022-07-26 10:30 | PM.PNNEP ---
Progress Note: A&P Assessment and Plan (1) MIKE (acute kidney injury): Code(s): N17.9 - Acute kidney failure, unspecified Status: Acute Assessment and Plan: resolved suspect multifactorial: due to afib with RVR possible associated with relative hypotension infection (UTI) obstruction with stone (left kidney) holding GEORGI-I and diuretics now follow trend of repeat labs and UOP (2) Stage 3b chronic kidney disease: Code(s): N18.32 - Chronic kidney disease, stage 3b Status: Chronic Assessment and Plan: baseline creatinine usually runs ~ 1.2 - 1.6mg/dl necessity of diuretic therapy to maintain her volume status given her diastolic heart failure likely precipitated by her pulmonary hypertension and suspected obstructive sleep apnea?is the main reason why her kidney function is abnormal outpatient evaluation demonstrated a normal renal ultrasound, no significant proteinuria, and a negative serological evaluation? (3) Acute UTI: Code(s): N39.0 - Urinary tract infection, site not specified Status: Acute Assessment and Plan: cultures with E.coli and Klebsiella on antibiotcs (4) Left ureteral stone: Code(s): N20.1 - Calculus of ureter Status: Acute Assessment and Plan: associated with obstructive uropathy (left kidney) s/p cystoscopy, left retrograde pyelogram, left ureteroscopy with stone extraction and left ureteral stent placement (on 07/24/22) Urology following with recommendations noted (5) Atrial fibrillation with RVR: Code(s): I48.91 - Unspecified atrial fibrillation Status: Acute Assessment and Plan: as noted on presentation continue rate control strategy continued on metoprolol as tolerated already on anticoagulation (6) Chronic diastolic (congestive) heart failure: Code(s): I50.32 - Chronic diastolic (congestive) heart failure Status: Acute Assessment and Plan: Echo results noted holding lasix and GEORGI-I due to #1 will eventually need to restart, particularly diuretics follow volume status closely (7) Essential hypertension: Code(s): I10 - Essential (primary) hypertension Status: Acute Assessment and Plan: follow trend of hemodynamics attempt to optimize BP as tolerated to help with #1 holding GEORGI-I at this time (8) Rheumatoid arthritis: Code(s): M06.9 - Rheumatoid arthritis, unspecified Status: Acute Assessment and Plan: on plaquenil remains on chronic steroids Will continue to follow. Subjective Date/time seen: 07/26/22 10:30 Still appears somewhat fatigued and tired but overall seems to be feeling better in comparison to admission; no acute issues/events overnight or earlier this morning; respiratory status seems stable if not improved; no apparent distress voiced on my visit. Exam Narrative: General: frail and ill appearing female in NAD Heart: normal S1 and S2; no rub Lungs: coarse breath sounds Abdomen: soft, nontender, nondistended, positive bowel sounds Extremities: no cyanosis or clubbing; trace edema Skin: warm and intact Objective Data Vital Signs Vital Signs: Vital Signs Temp Pulse Resp BP Pulse Ox O2 Del Method O2 Flow Rate 07/26/22 10:00 69 07/26/22 08:00 98 Nasal Cannula 2 07/26/22 08:00 66 07/26/22 08:59 63 07/26/22 08:43 83 98 Nasal Cannula 2 07/26/22 08:02 35.6 C L 68 20 152/74 H 100 07/26/22 06:00 66 07/26/22 04:00 36.4 C L 80 18 150/77 H 100 07/26/22 04:00 100 Nasal Cannula 2 07/26/22 04:00 72 07/26/22 02:40 65 98 CPAP 07/26/22 02:00 68 07/26/22 00:00 CPAP 07/26/22 00:00 67 07/25/22 23:50 36.4 C L 67 18 127/70 100 07/25/22 22:10 80 98 Nasal Cannula 2 07/25/22 22:12 80 96 CPAP 07/25/22 22:00 73 07/25/22 20:00 Room Air
--- NOTE | 2022-07-26 10:30 | P.PNNP_ITS ---
Progress Note: A&P Assessment and Plan (1) MIKE (acute kidney injury): Code(s): N17.9 - Acute kidney failure, unspecified Status: Acute Assessment and Plan: * resolved * suspect multifactorial: * due to afib with RVR * possible associated with relative hypotension * infection (UTI) * obstruction with stone (left kidney) * holding GEORGI-I and diuretics now * follow trend of repeat labs and UOP (2) Stage 3b chronic kidney disease: Code(s): N18.32 - Chronic kidney disease, stage 3b Status: Chronic Assessment and Plan: * baseline creatinine usually runs ~ 1.2 - 1.6mg/dl * necessity of diuretic therapy to maintain her volume status given her diastolic heart failure likely precipitated by her pulmonary hypertension and suspected obstructive sleep apnea?is the main reason why her kidney function is abnormal * outpatient evaluation demonstrated a normal renal ultrasound, no significant proteinuria, and a negative serological evaluation? (3) Acute UTI: Code(s): N39.0 - Urinary tract infection, site not specified Status: Acute Assessment and Plan: * cultures with E.coli and Klebsiella * on antibiotcs (4) Left ureteral stone: Code(s): N20.1 - Calculus of ureter Status: Acute Assessment and Plan: * associated with obstructive uropathy (left kidney) * s/p cystoscopy, left retrograde pyelogram, left ureteroscopy with stone extraction and left ureteral stent placement (on 07/24/22) * Urology following with recommendations noted (5) Atrial fibrillation with RVR: Code(s): I48.91 - Unspecified atrial fibrillation Status: Acute Assessment and Plan: * as noted on presentation * continue rate control strategy * continued on metoprolol as tolerated * already on anticoagulation (6) Chronic diastolic (congestive) heart failure: Code(s): I50.32 - Chronic diastolic (congestive) heart failure Status: Acute Assessment and Plan: * Echo results noted * holding lasix and GEORGI-I due to #1 * will eventually need to restart, particularly diuretics * follow volume status closely (7) Essential hypertension: Code(s): I10 - Essential (primary) hypertension Status: Acute Assessment and Plan: * follow trend of hemodynamics * attempt to optimize BP as tolerated to help with #1 * holding GEORGI-I at this time (8) Rheumatoid arthritis: Code(s): M06.9 - Rheumatoid arthritis, unspecified Status: Acute Assessment and Plan: * on plaquenil * remains on chronic steroids Will continue to follow. Subjective Date/time seen: 07/26/22 10:30 Still appears somewhat fatigued and tired but overall seems to be feeling better in comparison to admission; no acute issues/events overnight or earlier this m orning; respiratory status seems stable if not improved; no apparent distress voiced on my visit. Exam Narrative: General: frail and ill appearing female in NAD Heart: normal S1 and S2; no rub Lungs: coarse breath sounds Abdomen: soft, nontender, nondistended, positive bowel sounds Extremities: no cyanosis or clubbing; trace edema Skin: warm and intact Objective Data Vital Signs Vital Signs: Vital Signs Temp Pulse Resp BP Pulse Ox O2 Del Method O2 Flow Ra
[2022-07-26] MEDS: CEFEPIME 0.5 GM in DEXTROSE 5% IN WATER 50 ML IVPB (14:21)
--- NOTE | 2022-07-26 14:48 | PM.IMPN ---
Progress Note: A&P Assessment and Plan (1) Sepsis: Code(s): A41.9 - Sepsis, unspecified organism Status: Acute (2) Atrial fibrillation with RVR: Code(s): I48.91 - Unspecified atrial fibrillation Status: Acute (3) Chronic respiratory failure: Code(s): J96.10 - Chronic respiratory failure, unspecified whether with hypoxia or hypercapnia Status: Acute (4) Acute UTI: Code(s): N39.0 - Urinary tract infection, site not specified Status: Acute (5) Ureteral stone: Code(s): N20.1 - Calculus of ureter Status: Acute (6) Elevated troponin: Code(s): R77.8 - Other specified abnormalities of plasma proteins Status: Acute (7) MIKE (acute kidney injury): Code(s): N17.9 - Acute kidney failure, unspecified Status: Acute (8) Chronic diastolic (congestive) heart failure: Code(s): I50.32 - Chronic diastolic (congestive) heart failure Status: Acute (9) DVT (deep venous thrombosis): Code(s): I82.409 - Acute embolism and thrombosis of unspecified deep veins of unspecified lower extremity Status: Acute (10) Hypothyroidism: Code(s): E03.9 - Hypothyroidism, unspecified Status: Acute (11) Hyperlipidemia: Code(s): E78.5 - Hyperlipidemia, unspecified Status: Acute (12) Essential hypertension: Code(s): I10 - Essential (primary) hypertension Status: Acute (13) Obstructive sleep apnea on CPAP: Code(s): G47.33 - Obstructive sleep apnea (adult) (pediatric); Z99.89 - Dependence on other enabling machines and devices Status: Acute (14) Depression with anxiety: Code(s): F41.8 - Other specified anxiety disorders Status: Acute (15) Rheumatoid arthritis: Code(s): M06.9 - Rheumatoid arthritis, unspecified Status: Acute Plan Patient presents with generalized weakness and shortness of breath past few days # sepsis: She came in with generalized weakness AFib with RVR, leukocytosis, chills and evidence of UTI. Unclear if she has underlying pneumonia per se. She was also having diarrhea and nausea and vomiting. CT chest abdomen pelvis revealed obstructive uropathy and chronic interstitial lung disease without any acute worsening. She is started on vancomycin and cefepime with doxycycline for atypical coverage. She is Immunocompromised with underlying history of rheumatoid arthritis. She is on chronic prednisone therapy. She has also recently started on Orencia 5 weeks back. COVID was negative. Urine culture grows Enterococcus and Klebsiella. Enterococcus is only sensitive to vancomycin. Will continue on vancomycin and cefepime for now. Needs IV vancomycin for enterococcal UTI treatment. Klebsiella UTI sensitive to Omnicef. Change to cefepime to oral. # AFib with RVR patient was started on Cardizem bolus and infusion however blood pressure decreased. On metoprolol which is continued. Received a 1 time dose of digoxin. AFib with RVR improved. Continue telemetry monitoring Diltiazem drip was restarted due to recurrence RVR. Again with hypotension so Diltiazem stopped again. Cardiology consulted. AFib is rate controlled now. Already on Eliquis for stroke prophylaxis. Rate remaining stable. Continue Toprol. # chronic respiratory failure on oxygen at home. 2L at rest and 4 L with exertion. BNP is elevated. Acute on chronic respiratory failure. Continue BiPAP this morning. Pulmonary consultation. Underlying UIP but no obvious PNA by CT chest. Doxycycline stopped. Continue PT/OT. # urinary tract infection:UCx with Klebsiella and Enterococcus. Currently on vancomycin and cefepime # Obstructing distal left ureteral calculus with hydronephrosis - s/p stent placement. Stone was retrieved. Plan for stent removal in 2 weeks. # Elevated troponin likely demand ischemia. EKG with no acute signs of ischemic changes. Appreciate [facility]ilogy input. # hyponatremia mild chronic. C
[2022-07-26] MEDS: PRAVASTATIN SODIUM 20 MG TABLET 80 MG PO (20:33)
[2022-07-26] MEDS: TRIMETHOPRIM 100 MG TABLET PO (20:33)
[2022-07-26] MEDS: CEFDINIR 300 MG CAPSULE PO (21:02)
[2022-07-27] VITALS (10 sets, daily range): BP systolic 121–138; BP diastolic 67–86; PULSE 58–90; RESP 12–24; TEMP 36.6–36.8; O2SAT 97–100
[2022-07-27 05:04] LABS: Hematocrit 34.3 % (37.0-47.0); Hemoglobin 10.5 g/dL (12.0-15.0); Mean Corpuscular HGB Conc 30.6 g/dl (32-36); Mean Corpuscular Hemoglobin 30.7 pg (26-34); Mean Corpuscular Volume 100.3 fl (80-100); Mean Platelet Volume 9.7 fl (7.4-10.4); Platelet Count Result 233 k/mm3 (150-375); Red Blood Count 3.42 M/mm3 (4.2-5.4); Red Cell Distribution Width 15.2 % (11.5-14.5); White Blood Count 14.6 K/mm3 (4.5-10.0)
[2022-07-27 05:22] LABS: Alanine Aminotransferase 14 U/L (6-35); Albumin Level 3.3 g/dL (3.5-5.1); Alkaline Phosphatase 58 U/L (38-126); Anion Gap 2 mmol/L (8-16); Aspartate Amino Transferase 16 U/L (14-36); Bilirubin,Total 0.3 mg/dL (0.2-1.3); Blood Urea Nitrogen 42 mg/dL (7-17); Calcium 9.4 mg/dL (8.4-10.2); Carbon Dioxide 27 mmol/L (22-30); Chloride 104 mmol/L (98-107); Estimated CRCL calculation 44 ml/min; Estimated Glomerular Filt Rate 44; Glucose 92 mg/dL (65-110); Magnesium 1.4 mg/dL (1.6-2.3); Phosphorus 3.5 mg/dL (2.5-4.5); Potassium 4.4 mmol/L (3.4-5.0); Sodium 133 mmol/L (137-145)
[2022-07-27 06:20] LABS: Band Neutrophils Percent 5 % (0-6); Eosinophils Absolute Manual 0.43 K/mm3 (0.02-0.5); Eosinophils Percent Manual 3 % (0-4); Lymphocytes Absolute Manual 3.94 K/mm3 (1.1-4.5); Metamyelocytes Percent 1 %; Monocytes Absolute Manual 1.02 K/mm3 (0.1-0.90); Monocytes Percent Manual 7 % (3-9); Neutrophils Absolute Manual 9.05 K/mm3 (1.7-7.2); Neutrophils Percent Manual 57 % (46-73); Total Cells Counted 100
[2022-07-27 06:21] LABS: Platelet Estimate Adequate (Adequate)
[2022-07-27 06:23] LABS: Anisocytosis 1+ (NORMAL); Atypical Lymphocytes Present; Microcytosis 1+ (NORMAL); Ovalocytes 1+ (NORMAL); Poikilocytosis 1+ (NORMAL)
[2022-07-27] MEDS: ACETAMINOPHEN 325 MG TABLET 650 MG BY MOUTH (07:00)
[2022-07-27] MEDS: LEVOTHYROXINE SODIUM 112 MCG TABLET PO (07:01)
[2022-07-27] MEDS: SERTRALINE HCL 50 MG TABLET PO (08:45)
[2022-07-27] MEDS: CHOLESTYRAMINE LIGHT 4 GM POWD.PACK PO (08:45)
[2022-07-27] MEDS: CYANOCOBALAMIN 1,000 MCG TABLET 1000 MCG PO (08:45)
[2022-07-27] MEDS: CEFDINIR 300 MG CAPSULE PO ×2 (08:45→21:23)
[2022-07-27] MEDS: traMADol HCL (*CRX) 50 MG TABLET PO (08:45)
[2022-07-27] MEDS: APIXABAN 5 MG TABLET PO ×2 (08:45→21:24)
[2022-07-27] MEDS: predniSONE 5 MG TABLET 15 MG BY MOUTH (08:46)
[2022-07-27] MEDS: DULoxetine HCL 20 MG CAPSULE.DR PO (08:46)
[2022-07-27] MEDS: CHOLECALCIFEROL 1,000 UNITS TABLET 1000 UNITS PO (08:46)
[2022-07-27] MEDS: METOPROLOL SUCCINATE EXT REL 50 MG TABCR PO (08:53)
[2022-07-27] MEDS: MAGNESIUM OXIDE 400 MG TABLET PO (08:53)
--- NOTE | 2022-07-27 12:59 | P.PNNP_ITS ---
Progress Note: A&P Assessment and Plan (1) MIKE (acute kidney injury): Code(s): N17.9 - Acute kidney failure, unspecified Status: Acute Assessment and Plan: * resolved * suspect multifactorial: * due to afib with RVR * possible associated with relative hypotension * infection (UTI) * obstruction with stone (left kidney) * holding GEORGI-I and diuretics now * follow trend of repeat labs and UOP (2) Stage 3b chronic kidney disease: Code(s): N18.32 - Chronic kidney disease, stage 3b Status: Chronic Assessment and Plan: * baseline creatinine usually runs ~ 1.2 - 1.6mg/dl * necessity of diuretic therapy to maintain her volume status given her diastolic heart failure likely precipitated by her pulmonary hypertension and suspected obstructive sleep apnea?is the main reason why her kidney function is abnormal * outpatient evaluation demonstrated a normal renal ultrasound, no significant proteinuria, and a negative serological evaluation? (3) Acute UTI: Code(s): N39.0 - Urinary tract infection, site not specified Status: Acute Assessment and Plan: * cultures with E.coli and Klebsiella * on antibiotcs (4) Left ureteral stone: Code(s): N20.1 - Calculus of ureter Status: Acute Assessment and Plan: * associated with obstructive uropathy (left kidney) * s/p cystoscopy, left retrograde pyelogram, left ureteroscopy with stone extraction and left ureteral stent placement (on 07/24/22) * Urology following with recommendations noted (5) Atrial fibrillation with RVR: Code(s): I48.91 - Unspecified atrial fibrillation Status: Acute Assessment and Plan: * as noted on presentation * continue rate control strategy * continued on metoprolol as tolerated * already on anticoagulation (6) Chronic diastolic (congestive) heart failure: Code(s): I50.32 - Chronic diastolic (congestive) heart failure Status: Acute Assessment and Plan: * Echo results noted * holding lasix and GEORGI-I due to #1 * will eventually need to restart, particularly diuretics * follow volume status closely (7) Essential hypertension: Code(s): I10 - Essential (primary) hypertension Status: Acute Assessment and Plan: * follow trend of hemodynamics * attempt to optimize BP as tolerated to help with #1 * holding GEORGI-I at this time (8) Rheumatoid arthritis: Code(s): M06.9 - Rheumatoid arthritis, unspecified Status: Acute Assessment and Plan: * on plaquenil * remains on chronic steroids Will continue to follow. Subjective Date/time seen: 07/27/22 12:59 Breathing/respiratory status appears to be improving if not stable; a little sore in her left CVA area but she thinks she may have over-exerted herself trying to pick out hand something previously; no other acute issues/events voiced overnight or earlier this morning. Exam Narrative: General: frail and ill appearing female in NAD Heart: normal S1 and S2; no rub Lungs: coarse breath sounds Abdomen: soft, nontender, nondistended, positive bowel sounds Extremities: no cyanosis or clubbing; trace edema Skin: warm and intact Objective Data Vital Signs Vital Signs: Vital Signs Temp Pulse Pulse Resp BP Pulse Ox Pulse Ox
--- NOTE | 2022-07-27 12:59 | PM.PNNEP ---
Progress Note: A&P Assessment and Plan (1) MIKE (acute kidney injury): Code(s): N17.9 - Acute kidney failure, unspecified Status: Acute Assessment and Plan: resolved suspect multifactorial: due to afib with RVR possible associated with relative hypotension infection (UTI) obstruction with stone (left kidney) holding GEORGI-I and diuretics now follow trend of repeat labs and UOP (2) Stage 3b chronic kidney disease: Code(s): N18.32 - Chronic kidney disease, stage 3b Status: Chronic Assessment and Plan: baseline creatinine usually runs ~ 1.2 - 1.6mg/dl necessity of diuretic therapy to maintain her volume status given her diastolic heart failure likely precipitated by her pulmonary hypertension and suspected obstructive sleep apnea?is the main reason why her kidney function is abnormal outpatient evaluation demonstrated a normal renal ultrasound, no significant proteinuria, and a negative serological evaluation? (3) Acute UTI: Code(s): N39.0 - Urinary tract infection, site not specified Status: Acute Assessment and Plan: cultures with E.coli and Klebsiella on antibiotcs (4) Left ureteral stone: Code(s): N20.1 - Calculus of ureter Status: Acute Assessment and Plan: associated with obstructive uropathy (left kidney) s/p cystoscopy, left retrograde pyelogram, left ureteroscopy with stone extraction and left ureteral stent placement (on 07/24/22) Urology following with recommendations noted (5) Atrial fibrillation with RVR: Code(s): I48.91 - Unspecified atrial fibrillation Status: Acute Assessment and Plan: as noted on presentation continue rate control strategy continued on metoprolol as tolerated already on anticoagulation (6) Chronic diastolic (congestive) heart failure: Code(s): I50.32 - Chronic diastolic (congestive) heart failure Status: Acute Assessment and Plan: Echo results noted holding lasix and GEORGI-I due to #1 will eventually need to restart, particularly diuretics follow volume status closely (7) Essential hypertension: Code(s): I10 - Essential (primary) hypertension Status: Acute Assessment and Plan: follow trend of hemodynamics attempt to optimize BP as tolerated to help with #1 holding GEORGI-I at this time (8) Rheumatoid arthritis: Code(s): M06.9 - Rheumatoid arthritis, unspecified Status: Acute Assessment and Plan: on plaquenil remains on chronic steroids Will continue to follow. 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 Exam Narrative: General: frail and ill appearing female in NAD Heart: normal S1 and S2; no rub Lungs: coarse breath sounds Abdomen: soft, nontender, nondistended, positive bowel sounds Extremities: no cyanosis or clubbing; trace edema Skin: warm and intact Objective Data Vital Signs Vital Signs: Vital Signs Temp Pulse Pulse Resp BP Pulse Ox Pulse Ox 07/27/22 12:00 79 07/27/22 08:00 97 07/27/22 08:00 80 07/27/22 12:00 36.8 C 69 24 H 131/86 97 07/27/22 10:05 100 07/27/22 08:53 70 07/27/22 08:00 36.8 C 71 20 138/76 100 07/27/22 04:00 36.6 C 73 20 130/70 100 07/27/22 04:00 71 07/27/22 00:00 62 07/26/22 23:54 36.1 C L 70 20 127/88 97 07/26/22 21:58 99 07/26/22 20:00 100 07/26/22 20:00 67 07/26/22 20:00 36.5 C 62 18 145/64 H 100 07/26/22 16:00 36.7 C 66 20 125/69 100 07/26/22 16:00 70 07/26/22 15:21 100 95 Intake/Output Intake/Output: Intake & Output 07/24/22
--- NOTE | 2022-07-27 13:00 | PC.NURSE ---
Informed by the IMPORT DISPATCHER that the daughter gave the patient an injection without permission from the doctor. Informed Dr Encinas that the patient's daughter administered the patient's home dose of Orencia. Dr Encinas and I explained to the patient's daughter that the drug was not continued at this time due to its immunosuppressant qualities. Educated the family that certain medications are held during hospital stays to prevent drug interactions and it is very important that the patient is only administered medications that are approved by pharmacy and her doctor. Patient and family aggreable.
--- NOTE | 2022-07-27 13:09 | WPDCDIQUERY2 ---
CDI Query Clarification Request Patient arrived to ED 07/21/22 at 12:40, placed in Observation on 07/21/22 at 14:52 for CHF, MIKE, and acute UTI. Inpatient admission order 07/22/22 at 15:19, Sepsis was documented on 07/24/22. Please clarify if Sepsis was present at the time of inpatient admission.
--- NOTE | 2022-07-27 14:34 | PM.IMPN ---
Progress Note: A&P Assessment and Plan (1) Sepsis: Code(s): A41.9 - Sepsis, unspecified organism Status: Acute (2) Atrial fibrillation with RVR: Code(s): I48.91 - Unspecified atrial fibrillation Status: Acute (3) Chronic respiratory failure: Code(s): J96.10 - Chronic respiratory failure, unspecified whether with hypoxia or hypercapnia Status: Acute (4) Acute UTI: Code(s): N39.0 - Urinary tract infection, site not specified Status: Acute (5) Ureteral stone: Code(s): N20.1 - Calculus of ureter Status: Acute (6) Elevated troponin: Code(s): R77.8 - Other specified abnormalities of plasma proteins Status: Acute (7) MIKE (acute kidney injury): Code(s): N17.9 - Acute kidney failure, unspecified Status: Acute (8) Chronic diastolic (congestive) heart failure: Code(s): I50.32 - Chronic diastolic (congestive) heart failure Status: Acute (9) DVT (deep venous thrombosis): Code(s): I82.409 - Acute embolism and thrombosis of unspecified deep veins of unspecified lower extremity Status: Acute (10) Hypothyroidism: Code(s): E03.9 - Hypothyroidism, unspecified Status: Acute (11) Hyperlipidemia: Code(s): E78.5 - Hyperlipidemia, unspecified Status: Acute (12) Essential hypertension: Code(s): I10 - Essential (primary) hypertension Status: Acute (13) Obstructive sleep apnea on CPAP: Code(s): G47.33 - Obstructive sleep apnea (adult) (pediatric); Z99.89 - Dependence on other enabling machines and devices Status: Acute (14) Depression with anxiety: Code(s): F41.8 - Other specified anxiety disorders Status: Acute (15) Rheumatoid arthritis: Code(s): M06.9 - Rheumatoid arthritis, unspecified Status: Acute Plan Patient presents with generalized weakness and shortness of breath past few days # sepsis: She came in with generalized weakness AFib with RVR, leukocytosis, chills and evidence of UTI. Unclear if she has underlying pneumonia per se. She was also having diarrhea and nausea and vomiting. CT chest abdomen pelvis revealed obstructive uropathy and chronic interstitial lung disease without any acute worsening. She is started on vancomycin and cefepime with doxycycline for atypical coverage. She is Immunocompromised with underlying history of rheumatoid arthritis. She is on chronic prednisone therapy. She has also recently started on Orencia 5 weeks back. COVID was negative. Urine culture grows Enterococcus and Klebsiella. Enterococcus is only sensitive to vancomycin. Will continue on vancomycin for enterococcal UTI treatment. Klebsiella UTI sensitive to Omnicef so abx adjusted. She did receive a dose of abatacept by dtr today. # AFib with RVR patient was started on Cardizem bolus and infusion however blood pressure decreased. On metoprolol which was continued. Received a 1 time dose of digoxin. AFib with RVR improved. Diltiazem drip was restarted due to recurrence RVR. Again with hypotension so Diltiazem stopped again. Cardiology consulted. AFib is rate controlled now. Already on Eliquis for stroke prophylaxis. Rate remaining stable. Continue Toprol. Continue telemetry monitoring # chronic respiratory failure on oxygen at home. 2L at rest and 4 L with exertion. BNP is elevated. Acute on chronic respiratory failure. Continue BiPAP. Pulmonary consultation. Underlying UIP but no obvious PNA by CT chest. Doxycycline stopped. CXR showing ILD but no acute findings. Continue PT/OT. # urinary tract infection: UCx with Klebsiella and Enterococcus. As above # Obstructing distal left ureteral calculus with hydronephrosis - s/p stent placement. Stone was retrieved. Plan for stent removal in 2 weeks. # Elevated troponin likely demand ischemia. EKG with no acute signs of ischemic changes. Appreciate Cardiology input. # hyponatremia mild chronic. Na 133. C
[2022-07-27] MEDS: FUROSEMIDE 20 MG TABLET PO (17:31)
--- NOTE | 2022-07-27 18:55 | PC.NURSE ---
Patient transferred to [address] [place] [address] via Bed at 1835.
[2022-07-27] MEDS: PRAVASTATIN SODIUM 20 MG TABLET 80 MG PO (21:23)
[2022-07-28] VITALS (14 sets, daily range): BP systolic 120–143; BP diastolic 68–84; PULSE 54–128; RESP 12–20; TEMP 35.9–36.6; O2SAT 98–100
[2022-07-28] MEDS: LEVOTHYROXINE SODIUM 112 MCG TABLET PO (07:28)
[2022-07-28 07:45] LABS: Basophils Absolute Auto 0.1 K/mm3 (0.0-0.1); Basophils Percent Auto 0.6 % (0.2-1.2); Eosinophils Absolute Auto 0.2 K/mm3 (0-0.3); Eosinophils Percent Auto 1.5 % (0-4.4); Hematocrit 34.9 % (37.0-47.0); Hemoglobin 10.5 g/dL (12.0-15.0); Immature Granulocyte Absolute 1.07 K/mm3 (0.00-0.031); Immature Granulocyte Percent A 6.9 % (0-0.5); Lymphocytes Absolute Auto 2.12 K/mm3 (0.9-3.2); Lymphocytes Percent Auto 13.6 % (18.3-44.2); Mean Corpuscular HGB Conc 30.1 g/dl (32-36); Mean Corpuscular Hemoglobin 30.3 pg (26-34); Mean Corpuscular Volume 100.9 fl (80-100); Mean Platelet Volume 9.6 fl (7.4-10.4); Monocytes Absolute Auto 1.2 K/mm3 (0.1-0.6); Monocytes Percent Auto 7.9 % (2.6-8.5); Neutrophils Absolute Auto 10.8 K/mm3 (1.3-6.7); Neutrophils Percent Auto 69.5 % (45.5-73.1); Platelet Count Result 286 k/mm3 (150-375); Red Blood Count 3.46 M/mm3 (4.2-5.4); White Blood Count 15.6 K/mm3 (4.5-10.0)
[2022-07-28 07:55] LABS: Anion Gap 11 mmol/L (8-16); Blood Urea Nitrogen 34 mg/dL (7-17); Calcium 9.1 mg/dL (8.4-10.2); Carbon Dioxide 28 mmol/L (22-30); Chloride 100 mmol/L (98-107); Estimated CRCL calculation 53 ml/min; Estimated Glomerular Filt Rate 54; Glucose 88 mg/dL (65-110); Magnesium 1.3 mg/dL (1.6-2.3); Potassium 4.1 mmol/L (3.4-5.0); Sodium 139 mmol/L (137-145)
[2022-07-28] MEDS: CEFDINIR 300 MG CAPSULE PO ×2 (08:28→20:16)
[2022-07-28] MEDS: APIXABAN 5 MG TABLET PO ×2 (08:28→20:16)
[2022-07-28] MEDS: predniSONE 5 MG TABLET 15 MG BY MOUTH (08:28)
[2022-07-28] MEDS: CYANOCOBALAMIN 1,000 MCG TABLET 1000 MCG PO (08:29)
[2022-07-28] MEDS: FUROSEMIDE 20 MG TABLET PO (08:29)
[2022-07-28] MEDS: CHOLECALCIFEROL 1,000 UNITS TABLET 1000 UNITS PO (08:29)
[2022-07-28] MEDS: MAGNESIUM OXIDE 400 MG TABLET PO (08:29)
[2022-07-28] MEDS: DULoxetine HCL 20 MG CAPSULE.DR PO (08:29)
[2022-07-28 08:30] LABS: Vancomycin Trough 14.4 ug/mL (10.0-20.0)
[2022-07-28] MEDS: CHOLESTYRAMINE LIGHT 4 GM POWD.PACK PO (08:30)
[2022-07-28] MEDS: SERTRALINE HCL 50 MG TABLET PO (08:30)
[2022-07-28] MEDS: METOPROLOL SUCCINATE EXT REL 50 MG TABCR PO (08:32)
--- NOTE | 2022-07-28 10:20 | P.PNNP_ITS ---
Progress Note: A&P Assessment and Plan (1) MIKE (acute kidney injury): Code(s): N17.9 - Acute kidney failure, unspecified Status: Acute Assessment and Plan: * resolved (if not better than baseline) * suspect multifactorial: * due to afib with RVR * possible associated with relative hypotension * infection (UTI) * obstruction with stone (left kidney) * holding GEORGI-I but resumed on diuretic therapy * follow trend of repeat labs and UOP (2) Stage 3b chronic kidney disease: Code(s): N18.32 - Chronic kidney disease, stage 3b Status: Chronic Assessment and Plan: * baseline creatinine usually runs ~ 1.2 - 1.6mg/dl * necessity of diuretic therapy to maintain her volume status given her diastolic heart failure likely precipitated by her pulmonary hypertension and suspected obstructive sleep apnea?is the main reason why her kidney function is abnormal * outpatient evaluation demonstrated a normal renal ultrasound, no significant proteinuria, and a negative serological evaluation? (3) Acute UTI: Code(s): N39.0 - Urinary tract infection, site not specified Status: Acute Assessment and Plan: * cultures with E.coli and Klebsiella * on antibiotcs (4) Left ureteral stone: Code(s): N20.1 - Calculus of ureter Status: Acute Assessment and Plan: * associated with obstructive uropathy (left kidney) * s/p cystoscopy, left retrograde pyelogram, left ureteroscopy with stone extraction and left ureteral stent placement (on 07/24/22) * Urology following with recommendations noted (5) Atrial fibrillation with RVR: Code(s): I48.91 - Unspecified atrial fibrillation Status: Acute Assessment and Plan: * as noted on presentation * continue rate control strategy * continued on metoprolol as tolerated * already on anticoagulation (6) Chronic diastolic (congestive) heart failure: Code(s): I50.32 - Chronic diastolic (congestive) heart failure Status: Acute Assessment and Plan: * Echo results noted * holding lasix and GEORGI-I due to #1 * diuretic resumed * follow volume status closely (7) Essential hypertension: Code(s): I10 - Essential (primary) hypertension Status: Acute Assessment and Plan: * reasonable control * follow trend of hemodynamics * GEORGI-I on hold - ok to resume if BP rises... (8) Rheumatoid arthritis: Code(s): M06.9 - Rheumatoid arthritis, unspecified Status: Acute Assessment and Plan: * on plaquenil * remains on chronic steroids Will continue to follow. Subjective Date/time seen: 07/28/22 10:20 Overall, she appears to doing quite well; respiratory/breathing is stable if not continuing to improve; no apparent distress to report. Exam Narrative: General: frail and ill appearing female in NAD Heart: normal S1 and S2; no rub Lungs: coarse breath sounds Abdomen: soft, nontender, nondistended, positive bowel sounds Extremities: no cyanosis or clubbing; trace edema Skin: no rash Objective Data Vital Signs Vital Signs: Vital Signs Temp Pulse Resp BP Pulse Ox O2 Del Method 07/28/22 08:32 68 07/28/22 02:10 68 12 98 CPAP 07/28/22 06:00 36.6 C 64 17 124/84 100 07/28/22
--- NOTE | 2022-07-28 10:20 | PM.PNNEP ---
Progress Note: A&P Assessment and Plan (1) MIKE (acute kidney injury): Code(s): N17.9 - Acute kidney failure, unspecified Status: Acute Assessment and Plan: resolved (if not better than baseline) suspect multifactorial: due to afib with RVR possible associated with relative hypotension infection (UTI) obstruction with stone (left kidney) holding GEORGI-I but resumed on diuretic therapy follow trend of repeat labs and UOP (2) Stage 3b chronic kidney disease: Code(s): N18.32 - Chronic kidney disease, stage 3b Status: Chronic Assessment and Plan: baseline creatinine usually runs ~ 1.2 - 1.6mg/dl necessity of diuretic therapy to maintain her volume status given her diastolic heart failure likely precipitated by her pulmonary hypertension and suspected obstructive sleep apnea?is the main reason why her kidney function is abnormal outpatient evaluation demonstrated a normal renal ultrasound, no significant proteinuria, and a negative serological evaluation? (3) Acute UTI: Code(s): N39.0 - Urinary tract infection, site not specified Status: Acute Assessment and Plan: cultures with E.coli and Klebsiella on antibiotcs (4) Left ureteral stone: Code(s): N20.1 - Calculus of ureter Status: Acute Assessment and Plan: associated with obstructive uropathy (left kidney) s/p cystoscopy, left retrograde pyelogram, left ureteroscopy with stone extraction and left ureteral stent placement (on 07/24/22) Urology following with recommendations noted (5) Atrial fibrillation with RVR: Code(s): I48.91 - Unspecified atrial fibrillation Status: Acute Assessment and Plan: as noted on presentation continue rate control strategy continued on metoprolol as tolerated already on anticoagulation (6) Chronic diastolic (congestive) heart failure: Code(s): I50.32 - Chronic diastolic (congestive) heart failure Status: Acute Assessment and Plan: Echo results noted holding lasix and GEORGI-I due to #1 diuretic resumed follow volume status closely (7) Essential hypertension: Code(s): I10 - Essential (primary) hypertension Status: Acute Assessment and Plan: reasonable control follow trend of hemodynamics GEORGI-I on hold - ok to resume if BP rises... (8) Rheumatoid arthritis: Code(s): M06.9 - Rheumatoid arthritis, unspecified Status: Acute Assessment and Plan: on plaquenil remains on chronic steroids Will continue to follow. Subjective Date/time seen: 07/28/22 10:20 Overall, she appears to doing quite well; respiratory/breathing is stable if not continuing to improve; no apparent distress to report. Exam Narrative: General: frail and ill appearing female in NAD Heart: normal S1 and S2; no rub Lungs: coarse breath sounds Abdomen: soft, nontender, nondistended, positive bowel sounds Extremities: no cyanosis or clubbing; trace edema Skin: no rash Objective Data Vital Signs Vital Signs: Vital Signs Temp Pulse Resp BP Pulse Ox O2 Del Method 07/28/22 08:32 68 07/28/22 02:10 68 12 98 CPAP 07/28/22 06:00 36.6 C 64 17 124/84 100 07/28/22 04:00 66 07/28/22 00:00 66 07/27/22 20:40 85 07/27/22 22:00 36.8 C 64 17 124/84 100 07/27/22 22:12 90 12 97 CPAP 07/27/22 16:00 58 L 07/27/22 16:00 36.8 C 67 20 121/67 98 07/27/22 12:00 79 07/27/22 12:00 36.8 C 69 24 H 131/86 97 Intake/Output Intake/Output: Intake & Output 07/25/22 07/26/22 07/27/22 07/28/22 23:59 23:59 23:59 23:59 Intake Total 2120 1440 1925 240 Output Total 1600 2675 1700 1200 Balance 520 1235 225 -960 Meds/Results Medications: Active Medications Generic Name Dose Route Start Last Admin Trade Name Saúlq PRN Reason Stop Dose Admin Acetaminophen 650 mg 07/21/22 21:55 07/27/22 07:00 Acetami
[2022-07-28] MEDS: traMADol HCL (*CRX) 50 MG TABLET PO ×2 (11:40→20:15)
--- NOTE | 2022-07-28 12:11 | PCNWS ---
Weekly nutritional screen. Patient is tolerating current diet, regular, with adequate intake at 100% most all meals. No weight loss reported. No nutritional needs at this time.
--- NOTE | 2022-07-28 12:50 | PM.IMPN ---
Progress Note: A&P Assessment and Plan (1) Sepsis: Code(s): A41.9 - Sepsis, unspecified organism Status: Acute Assessment and Plan: Patient presented with chills and generalized weakness and found to have AFib with RVR, leukocytosis and evidence of UTI. Unclear if she has underlying pneumonia per se. She was also having diarrhea and nausea and vomiting. CT chest abdomen/pelvis revealed obstructive uropathy and chronic interstitial lung disease without any acute worsening. She was started on vancomycin and cefepime with doxycycline for atypical coverage. She is Immunocompromised with underlying history of RA. She is on chronic prednisone and Plaquenil; also recently started on abatacept about 5 weeks ago. COVID was negative. BCx negative. Urine culture growing Enterococcus and Klebsiella. Enterococcus is only sensitive to vancomycin. Will continue on vancomycin to complete a 7 day course. Cefepime changed to cefdinir for the Klebsiella UTI. Remove Paige in the morning. She did receive a dose of abatacept by dtr yesterday. (2) Atrial fibrillation with RVR: Code(s): I48.91 - Unspecified atrial fibrillation Status: Acute Assessment and Plan: Patient with AFib with RVR and was started on Cardizem infusion after a bolus however her blood pressure dropped. We continued her metoprolol.?She received a 1 time dose of digoxin.? AFib with RVR improved. Diltiazem drip was restarted due to recurrence RVR. Again with hypotension so Diltiazem stopped again. Cardiology consulted.? AFib is rate controlled now. Already on Eliquis for stroke prophylaxis. Rate remaining stable. Continue Toprol. Continue Eliquis. Continue telemetry monitoring (3) Ureteral stone: Code(s): N20.1 - Calculus of ureter Status: Acute Assessment and Plan: Patient found to have an obstructing distal left ureteral calculus with hydronephrosis - s/p stent placement 07/24. Stone was retrieved. Plan for stent removal in 2 weeks. Appreciate Urology input. (4) Acute UTI: Code(s): N39.0 - Urinary tract infection, site not specified Status: Acute Assessment and Plan: UCx with Klebsiella and Enterococcus. Abx adjusted as mentioned above (5) Chronic respiratory failure: Code(s): J96.10 - Chronic respiratory failure, unspecified whether with hypoxia or hypercapnia Status: Acute Assessment and Plan: Patient with chronic respiratory failure with 2L at rest and 4 L with exertion.?BNP was elevated.?She did have worening hypoxia on admission but better today. Pulmonary consultation.? Underlying UIP but no obvious PNA by CT chest.? Doxycycline stopped. Repeat CXR showing ILD but no acute findings. Back down to 2L. Continue PT/OT. (6) Elevated troponin: Code(s): R77.8 - Other specified abnormalities of plasma proteins Status: Acute Assessment and Plan: Elevated troponin felt likely to demand ischemia. EKG with no acute signs of ischemic changes. Appreciate Cardiology input. (7) MIKE (acute kidney injury): Code(s): N17.9 - Acute kidney failure, unspecified Status: Acute Assessment and Plan: Creatinine 2.9 that worsened to 3.4 with diuresis. Baseline creatinine 1.3. We held diuresis and started IV hydration. Nephrology consulted. IV hydration stopped since she went into respiratory distress 07/22 related to congestive heart failure. Cr back down to baseline. She states she is on Lasix 60mg daily but 20mg daily listed on her home med list. We resumed Lasix at 20mg and she is tolerating this well. Will follow. Nephrology following and appreciate their input. (8) Chronic diastolic (congestive) heart failure: Code(s): I50.32 - Chronic diastolic (congestive) heart failure Status: Acute Assessment and Plan: Acute on chronic dCHF. CHF on 07/22 but well compensated now. Lasix resumed. Will monitor volume status. (9) Essential hyperte
[2022-07-28] MEDS: MAGNESIUM SULF 2 GM/WATER 50ML 2 GM/50 ML BAG IVPB (13:09)
[2022-07-28] MEDS: PRAVASTATIN SODIUM 20 MG TABLET 80 MG PO (20:16)
[2022-07-29] VITALS (10 sets, daily range): BP systolic 122–158; BP diastolic 65–88; PULSE 59–83; RESP 12–20; TEMP 35.7–36.8; O2SAT 98–100
[2022-07-29] MEDS: traMADol HCL (*CRX) 50 MG TABLET PO ×2 (05:43→20:40)
[2022-07-29] MEDS: LEVOTHYROXINE SODIUM 112 MCG TABLET PO (05:43)
[2022-07-29 06:22] LABS: Basophils Absolute Auto 0.1 K/mm3 (0.0-0.1); Basophils Percent Auto 0.4 % (0.2-1.2); Eosinophils Absolute Auto 0.2 K/mm3 (0-0.3); Eosinophils Percent Auto 1.2 % (0-4.4); Hematocrit 34.6 % (37.0-47.0); Hemoglobin 10.5 g/dL (12.0-15.0); Immature Granulocyte Absolute 0.98 K/mm3 (0.00-0.031); Immature Granulocyte Percent A 5.3 % (0-0.5); Lymphocytes Absolute Auto 2.52 K/mm3 (0.9-3.2); Lymphocytes Percent Auto 13.7 % (18.3-44.2); Mean Corpuscular HGB Conc 30.3 g/dl (32-36); Mean Corpuscular Hemoglobin 30.8 pg (26-34); Mean Corpuscular Volume 101.5 fl (80-100); Mean Platelet Volume 9.2 fl (7.4-10.4); Monocytes Absolute Auto 0.9 K/mm3 (0.1-0.6); Monocytes Percent Auto 5.1 % (2.6-8.5); Neutrophils Absolute Auto 13.7 K/mm3 (1.3-6.7); Neutrophils Percent Auto 74.3 % (45.5-73.1); Platelet Count Result 335 k/mm3 (150-375); Red Blood Count 3.41 M/mm3 (4.2-5.4); Red Cell Distribution Width 15.2 % (11.5-14.5); White Blood Count 18.4 K/mm3 (4.5-10.0)
[2022-07-29 06:33] LABS: Anion Gap 11 mmol/L (8-16); Blood Urea Nitrogen 32 mg/dL (7-17); Calcium 9.1 mg/dL (8.4-10.2); Carbon Dioxide 28 mmol/L (22-30); Chloride 100 mmol/L (98-107); Estimated CRCL calculation 58 ml/min; Estimated Glomerular Filt Rate > 60; Glucose 92 mg/dL (65-110); Magnesium 1.6 mg/dL (1.6-2.3); Potassium 4.3 mmol/L (3.4-5.0); Sodium 139 mmol/L (137-145)
[2022-07-29] MEDS: CEFDINIR 300 MG CAPSULE PO ×2 (08:02→20:37)
[2022-07-29] MEDS: APIXABAN 5 MG TABLET PO ×2 (08:02→20:37)
[2022-07-29] MEDS: CYANOCOBALAMIN 1,000 MCG TABLET 1000 MCG PO (08:02)
[2022-07-29] MEDS: CHOLECALCIFEROL 1,000 UNITS TABLET 1000 UNITS PO (08:02)
[2022-07-29] MEDS: DULoxetine HCL 20 MG CAPSULE.DR PO (08:03)
[2022-07-29] MEDS: MAGNESIUM OXIDE 400 MG TABLET PO (08:03)
[2022-07-29] MEDS: METOPROLOL SUCCINATE EXT REL 50 MG TABCR PO (08:03)
[2022-07-29] MEDS: predniSONE 5 MG TABLET 15 MG BY MOUTH (08:03)
[2022-07-29] MEDS: FUROSEMIDE 20 MG TABLET PO (08:03)
[2022-07-29] MEDS: SERTRALINE HCL 50 MG TABLET PO (08:03)
[2022-07-29] MEDS: ACETAMINOPHEN 325 MG TABLET 650 MG BY MOUTH (08:08)
[2022-07-29] MEDS: CHOLESTYRAMINE LIGHT 4 GM POWD.PACK PO (10:19)
--- NOTE | 2022-07-29 12:29 | PM.PNNEP ---
Progress Note: A&P Assessment and Plan (1) MIKE (acute kidney injury): Code(s): N17.9 - Acute kidney failure, unspecified Status: Acute Assessment and Plan: resolved (if not better than baseline) suspect multifactorial: due to afib with RVR possible associated with relative hypotension infection (UTI) obstruction with stone (left kidney) holding GEORGI-I but resumed on diuretic therapy follow trend of repeat labs and UOP (2) Stage 3b chronic kidney disease: Code(s): N18.32 - Chronic kidney disease, stage 3b Status: Chronic Assessment and Plan: baseline creatinine usually runs ~ 1.2 - 1.6mg/dl necessity of diuretic therapy to maintain her volume status given her diastolic heart failure likely precipitated by her pulmonary hypertension and suspected obstructive sleep apnea?is the main reason why her kidney function is abnormal outpatient evaluation demonstrated a normal renal ultrasound, no significant proteinuria, and a negative serological evaluation? (3) Acute UTI: Code(s): N39.0 - Urinary tract infection, site not specified Status: Acute Assessment and Plan: cultures with E.coli and Klebsiella on antibiotcs (4) Left ureteral stone: Code(s): N20.1 - Calculus of ureter Status: Acute Assessment and Plan: associated with obstructive uropathy (left kidney) s/p cystoscopy, left retrograde pyelogram, left ureteroscopy with stone extraction and left ureteral stent placement (on 07/24/22) Urology following with recommendations noted (5) Atrial fibrillation with RVR: Code(s): I48.91 - Unspecified atrial fibrillation Status: Acute Assessment and Plan: as noted on presentation continue rate control strategy continued on metoprolol as tolerated already on anticoagulation (6) Chronic diastolic (congestive) heart failure: Code(s): I50.32 - Chronic diastolic (congestive) heart failure Status: Acute Assessment and Plan: Echo results noted holding lasix and GEORGI-I due to #1 diuretic resumed follow volume status (7) Essential hypertension: Code(s): I10 - Essential (primary) hypertension Status: Acute Assessment and Plan: reasonable control follow trend of hemodynamics GEORGI-I on hold - ok to resume if BP rises... (8) Rheumatoid arthritis: Code(s): M06.9 - Rheumatoid arthritis, unspecified Status: Acute Assessment and Plan: on plaquenil remains on chronic steroids Nothing much else to add -- will continue to follow intermittently. Subjective Date/time seen: 07/29/22 12:29 Continues to do well at this time; breathing and respiratory status seems to be doing quite well; tolerated diuretic therapy as well; some fatigue noted but she thinks it is due to deconditioning given this as well as several other recent hospitalizations; no apparent distress noted. Exam Narrative: General: frail and ill appearing female in NAD Heart: normal S1 and S2; no rub Lungs: coarse breath sounds Abdomen: soft, nontender, nondistended, positive bowel sounds Extremities: no cyanosis or clubbing; trace edema Skin: no nodules Objective Data Vital Signs Vital Signs: Vital Signs Temp Pulse Resp BP Pulse Ox O2 Del Method O2 Flow Rate 07/29/22 12:00 63 07/29/22 08:00 81 07/29/22 08:00 100 Nasal Cannula 2 07/29/22 08:03 80 07/29/22 06:00 36.2 C L 83 20 158/84 H 100 07/29/22 02:50 59 L 12 98 CPAP 07/29/22 03:03 61 07/28/22 23:05 61 12 100 CPAP 07/28/22 23:11 60 07/28/22 21:46 36.1 C L 67 20 120/68 100 07/28/22 20:43 100 Nasal Cannula 2 07/28/22 20:00 99 Nasal Cannula 2 07/28/22 20:00 72 07/28/22 16:00 64 Intake/Output Intake/Output: Intake & Output 07/26/22 07/27/22 07/28/22 07/29/22 23:59 23:59 23:59 23:59 Intake Total 1440
--- NOTE | 2022-07-29 12:29 | P.PNNP_ITS ---
Progress Note: A&P Assessment and Plan (1) MIKE (acute kidney injury): Code(s): N17.9 - Acute kidney failure, unspecified Status: Acute Assessment and Plan: * resolved (if not better than baseline) * suspect multifactorial: * due to afib with RVR * possible associated with relative hypotension * infection (UTI) * obstruction with stone (left kidney) * holding GEORGI-I but resumed on diuretic therapy * follow trend of repeat labs and UOP (2) Stage 3b chronic kidney disease: Code(s): N18.32 - Chronic kidney disease, stage 3b Status: Chronic Assessment and Plan: * baseline creatinine usually runs ~ 1.2 - 1.6mg/dl * necessity of diuretic therapy to maintain her volume status given her diastolic heart failure likely precipitated by her pulmonary hypertension and suspected obstructive sleep apnea?is the main reason why her kidney function is abnormal * outpatient evaluation demonstrated a normal renal ultrasound, no significant proteinuria, and a negative serological evaluation? (3) Acute UTI: Code(s): N39.0 - Urinary tract infection, site not specified Status: Acute Assessment and Plan: * cultures with E.coli and Klebsiella * on antibiotcs (4) Left ureteral stone: Code(s): N20.1 - Calculus of ureter Status: Acute Assessment and Plan: * associated with obstructive uropathy (left kidney) * s/p cystoscopy, left retrograde pyelogram, left ureteroscopy with stone extraction and left ureteral stent placement (on 07/24/22) * Urology following with recommendations noted (5) Atrial fibrillation with RVR: Code(s): I48.91 - Unspecified atrial fibrillation Status: Acute Assessment and Plan: * as noted on presentation * continue rate control strategy * continued on metoprolol as tolerated * already on anticoagulation (6) Chronic diastolic (congestive) heart failure: Code(s): I50.32 - Chronic diastolic (congestive) heart failure Status: Acute Assessment and Plan: * Echo results noted * holding lasix and GEORGI-I due to #1 * diuretic resumed * follow volume status (7) Essential hypertension: Code(s): I10 - Essential (primary) hypertension Status: Acute Assessment and Plan: * reasonable control * follow trend of hemodynamics * GEORGI-I on hold - ok to resume if BP rises... (8) Rheumatoid arthritis: Code(s): M06.9 - Rheumatoid arthritis, unspecified Status: Acute Assessment and Plan: * on plaquenil * remains on chronic steroids Nothing much else to add -- will continue to follow intermittently. Subjective Date/time seen: 07/29/22 12:29 Continues to do well at this time; breathing and respiratory status seems to be doing quite well; tolerated diuretic therapy as well; some fatigue noted but she thinks it is due to deconditioning given this as well as several other recent hospitalizations; no apparent distress noted. Exam Narrative: General: frail and ill appearing female in NAD Heart: normal S1 and S2; no rub Lungs: coarse breath sounds Abdomen: soft, nontender, nondistended, positive bowel sounds Extremities: no cyanosis or clubbing; trace edema Skin: no nodules Objective Data Vital Signs Vital Signs: Vital Signs Temp Puls
--- NOTE | 2022-07-29 16:04 | PM.IMPN ---
Progress Note: A&P Assessment and Plan (1) Leucocytosis: Qualifiers: Leukocytosis type: unspecified Qualified Code(s): D72.829 - Elevated white blood cell count, unspecified Code(s): D72.829 - Elevated white blood cell count, unspecified Status: Acute Assessment and Plan: WBC 20K on admission and has waxed/waned since. WBC down to 14K with IV regiment but slowly climbing since 07/27. Changed to Cefdinir on 07/26. WBC continues to climb to 18.4K today. No symptoms to suggest infection. No clinical evidence of untreated infection. She did receive abatacept and this can cause sepsis, hypersensitivity rxn and serious infections but not seen at this time. No clear etiology why her WBC continues to climb. Check procalcitonin and CRP (2) Sepsis: Code(s): A41.9 - Sepsis, unspecified organism Status: Acute Assessment and Plan: Patient presented with chills and generalized weakness and found to have AFib with RVR, leukocytosis and evidence of UTI. Unclear if she has underlying pneumonia per se. She was also having diarrhea and nausea and vomiting. CT chest abdomen/pelvis revealed obstructive uropathy and chronic interstitial lung disease without any acute worsening. Rocephin given in ED (07/21 1850) and she was started on vancomycin (07/22 1600) and cefepime with doxycycline for atypical coverage. She is Immunocompromised with underlying history of RA. She is on chronic prednisone and Plaquenil; also recently started on abatacept about 5 weeks ago. COVID was negative. BCx negative. Urine culture growing Enterococcus and Klebsiella. Enterococcus is only sensitive to vancomycin. Will continue on vancomycin to complete a 7 day course. Cefepime changed to cefdinir for the Klebsiella UTI. Removed Paige this morning. She did receive a dose of abatacept by dtr 07/27. Will continue Vanco since she her WBC is climbing. (3) Atrial fibrillation with RVR: Code(s): I48.91 - Unspecified atrial fibrillation Status: Acute Assessment and Plan: Patient with AFib with RVR and was started on Cardizem infusion after a bolus however her blood pressure dropped. We resumed her metoprolol.?She received a 1 time dose of digoxin.? AFib with RVR improved. Diltiazem drip was restarted due to recurrence RVR. Again with hypotension so Diltiazem stopped again. Cardiology consulted.? AFib is rate controlled now. Already on Eliquis for stroke prophylaxis. Rate remaining stable. Continue Toprol. Continue Eliquis. Will stop telemetry monitoring. (4) Ureteral stone: Code(s): N20.1 - Calculus of ureter Status: Acute Assessment and Plan: Patient found to have an obstructing distal left ureteral calculus with hydronephrosis - s/p stent placement 07/24. Stone was retrieved. Plan for stent removal in 2 weeks. Appreciate Urology input. (5) Acute UTI: Code(s): N39.0 - Urinary tract infection, site not specified Status: Acute Assessment and Plan: UCx with Klebsiella and Enterococcus. Abx adjusted as mentioned above (6) Chronic respiratory failure: Code(s): J96.10 - Chronic respiratory failure, unspecified whether with hypoxia or hypercapnia Status: Acute Assessment and Plan: Patient with chronic respiratory failure with 2L at rest and 4 L with exertion.?BNP was elevated.?She did have worening hypoxia on admission but better today. Pulmonary consultation.? Underlying UIP but no obvious PNA by CT chest.? Doxycycline stopped. Repeat CXR 07/27 showing ILD but no acute findings. Back down to 2L. Continue PT/OT. (7) Elevated troponin: Code(s): R77.8 - Other specified abnormalities of plasma proteins Status: Acute Assessment and Plan: Elevated troponin felt likely related to demand ischemia. EKG with no acute signs of ischemic changes. Appreciate Cardiology input. (8) MIKE (acute kidney injury): Code(s): N17.9 - Acute kidney failure, uns
[2022-07-29] MEDS: PRAVASTATIN SODIUM 20 MG TABLET 80 MG PO (20:37)
[2022-07-30 04:40] VITALS: O2SAT 96
[2022-07-30] MEDS: LEVOTHYROXINE SODIUM 112 MCG TABLET PO (05:33)
[2022-07-30 06:00] VITALS: BP 138/74; PULSE 77; RESP 20; TEMP 35.8; O2SAT 100
[2022-07-30 06:09] LABS: Basophils Absolute Auto 0.1 K/mm3 (0.0-0.1); Basophils Percent Auto 0.6 % (0.2-1.2); Eosinophils Absolute Auto 0.2 K/mm3 (0-0.3); Hemoglobin 10.7 g/dL (12.0-15.0); Immature Granulocyte Absolute 0.57 K/mm3 (0.00-0.031); Immature Granulocyte Percent A 3.5 % (0-0.5); Lymphocytes Absolute Auto 2.07 K/mm3 (0.9-3.2); Lymphocytes Percent Auto 12.7 % (18.3-44.2); Mean Corpuscular HGB Conc 30.6 g/dl (32-36); Mean Corpuscular Hemoglobin 30.8 pg (26-34); Mean Corpuscular Volume 100.9 fl (80-100); Mean Platelet Volume 9.2 fl (7.4-10.4); Monocytes Absolute Auto 0.8 K/mm3 (0.1-0.6); Monocytes Percent Auto 4.7 % (2.6-8.5); Neutrophils Absolute Auto 12.7 K/mm3 (1.3-6.7); Neutrophils Percent Auto 77.5 % (45.5-73.1); Nucleated Red Blood Cells Perc 0.1 % (0.0-0.2); Platelet Count Result 337 k/mm3 (150-375); Red Blood Count 3.47 M/mm3 (4.2-5.4); Red Cell Distribution Width 14.9 % (11.5-14.5); White Blood Count 16.3 K/mm3 (4.5-10.0)
[2022-07-30 06:27] LABS: Anion Gap 12 mmol/L (8-16); Blood Urea Nitrogen 33 mg/dL (7-17); CRP 1.7 mg/dL (<1.0); Calcium 9.4 mg/dL (8.4-10.2); Carbon Dioxide 27 mmol/L (22-30); Chloride 99 mmol/L (98-107); Estimated CRCL calculation 53 ml/min; Estimated Glomerular Filt Rate 54; Glucose 86 mg/dL (65-110); Potassium 4.5 mmol/L (3.4-5.0); Sodium 138 mmol/L (137-145)
[2022-07-30 06:41] LABS: Procalcitonin 0.9 ng/mL
[2022-07-30 08:06] LABS: Glucose Point of Care 75 mg/dl (65-105)
[2022-07-30 08:40] VITALS: O2SAT 100
[2022-07-30] MEDS: predniSONE 5 MG TABLET 15 MG BY MOUTH (08:41)
[2022-07-30] MEDS: CEFDINIR 300 MG CAPSULE PO (08:41)
[2022-07-30] MEDS: FUROSEMIDE 20 MG TABLET PO (08:41)
[2022-07-30] MEDS: CYANOCOBALAMIN 1,000 MCG TABLET 1000 MCG PO (08:41)
[2022-07-30] MEDS: SERTRALINE HCL 50 MG TABLET PO (08:41)
[2022-07-30] MEDS: CHOLECALCIFEROL 1,000 UNITS TABLET 1000 UNITS PO (08:41)
[2022-07-30 08:42] VITALS: PULSE 72
[2022-07-30] MEDS: METOPROLOL SUCCINATE EXT REL 50 MG TABCR PO (08:42)
[2022-07-30] MEDS: MAGNESIUM OXIDE 400 MG TABLET PO (08:42)
[2022-07-30] MEDS: APIXABAN 5 MG TABLET PO (08:42)
[2022-07-30] MEDS: DULoxetine HCL 20 MG CAPSULE.DR PO (08:42)
[2022-07-30] MEDS: CHOLESTYRAMINE LIGHT 4 GM POWD.PACK PO (10:04)
--- NOTE | 2022-07-30 11:44 | PM.DS ---
DS: Admitting Diagnosis Discharge Date 07/30/22 Admitting Diagnosis Shortness of breath DS: Discharge Diagnosis Discharge Diagnosis (1) Leucocytosis: Qualifiers: Leukocytosis type: unspecified Qualified Code(s): D72.829 - Elevated white blood cell count, unspecified Code(s): D72.829 - Elevated white blood cell count, unspecified Status: Acute (2) Sepsis: Code(s): A41.9 - Sepsis, unspecified organism Status: Acute (3) Atrial fibrillation with RVR: Code(s): I48.91 - Unspecified atrial fibrillation Status: Acute (4) Ureteral stone: Code(s): N20.1 - Calculus of ureter Status: Acute (5) Acute UTI: Code(s): N39.0 - Urinary tract infection, site not specified Status: Acute (6) Chronic respiratory failure: Code(s): J96.10 - Chronic respiratory failure, unspecified whether with hypoxia or hypercapnia Status: Acute (7) Elevated troponin: Code(s): R77.8 - Other specified abnormalities of plasma proteins Status: Acute (8) MIKE (acute kidney injury): Code(s): N17.9 - Acute kidney failure, unspecified Status: Acute (9) Chronic diastolic (congestive) heart failure: Code(s): I50.32 - Chronic diastolic (congestive) heart failure Status: Acute (10) Essential hypertension: Code(s): I10 - Essential (primary) hypertension Status: Acute (11) Obstructive sleep apnea on CPAP: Code(s): G47.33 - Obstructive sleep apnea (adult) (pediatric); Z99.89 - Dependence on other enabling machines and devices Status: Acute (12) Rheumatoid arthritis: Code(s): M06.9 - Rheumatoid arthritis, unspecified Status: Acute (13) DVT (deep venous thrombosis): Code(s): I82.409 - Acute embolism and thrombosis of unspecified deep veins of unspecified lower extremity Status: Acute (14) Hypothyroidism: Code(s): E03.9 - Hypothyroidism, unspecified Status: Acute DS: Summary Hospital Course Reason for hospitalization: 72yo female with hx of CHF, chronic respiratory failure on oxygen at 2 L at rest and 4 L with exertion, chronic AFib and STARR here with shortness of breath. Please see H&P for details Hospital Course: Patient presented with chills and generalized weakness and found to have AFib with RVR, leukocytosis and evidence of UTI.? Unclear if she has underlying pneumonia per se.? She was also having diarrhea, nausea and vomiting.? CT chest abdomen/pelvis revealed obstructive uropathy and chronic interstitial lung disease without any acute worsening.? Rocephin given in ED and she was started on vancomycin (07/22 1600) and cefepime with doxycycline for atypical coverage.? She is Immunocompromised with underlying history of RA.? She is on chronic prednisone and Plaquenil; also recently started on abatacept about 5 weeks ago.? COVID was negative. BCx negative. Urine culture growing Enterococcus and Klebsiella.? Enterococcus is only sensitive to vancomycin.? She completed a 7 day course of IV vancomycin. Cefepime changed to cefdinir for the Klebsiella UTI and she completed a course. She did receive a dose of abatacept by dtr 07/27. WBC 20K on admission and has waxed/waned since. WBC down to 14K with IV regiment but slowly climbed to 18K before trending back down. CRP 1.7 with procalcitonin 0.9. Clinically, she was asymptomatic. No clinical evidence of untreated infection. She did receive abatacept by family and this can cause hypersensitivity rxn so this might be the spike in her WBC. Plan to repeat as outpatient off abx. Patient with AFib with RVR and was started on Cardizem infusion after a bolus however her blood pressure dropped. We resumed her metoprolol when her BP improved.?She received a 1 time dose of digoxin. Cardiology consulted.? AFib is rate controlled now. We continued her Eliquis. Patient found to have an obstructing distal left ureteral calculus with hydronephrosis - s/p stent plac
== END 2022-07-30 13:10 | disposition home health service (06) | DRG 853 ==
LOC: ANHED 14:52 → ANHIMU 16:07 → ANH3MEDSUR 07-27 18:34
PROVIDERS: Internal Medicine; Nurse Practitioner; Urology; Admitting Provider Internal Medicine; Emergency Provider Emergency Medicine; PCP Internal Medicine; Visit Provider Internal Medicine
PROC: 0T778DZ Dilation of Left Ureter with Intraluminal Device, Via Natural or Artificial Opening Endoscopic (ICD-10-PCS; CPT 52352; principal; 2022-07-24 07:30)
DX: A41.9 Sepsis, unspecified organism (principal); I50.33 Acute on chronic diastolic (congestive) heart failure; J96.20 Acute and chronic respiratory failure, unspecified whether with hypoxia or hypercapnia; N13.6 Pyonephrosis; N17.9 Acute kidney failure, unspecified; I24.8 Other forms of acute ischemic heart disease; I13.0 Hypertensive heart and chronic kidney disease with heart failure and stage 1 through stage 4 chronic kidney disease, or unspecified chronic kidney disease; Z68.42 Body mass index [BMI] 45.0-49.9, adult; E87.1 Hypo-osmolality and hyponatremia; J84.9 Interstitial pulmonary disease, unspecified; I48.19 Other persistent atrial fibrillation; B96.1 Klebsiella pneumoniae [K. pneumoniae] as the cause of diseases classified elsewhere; B95.2 Enterococcus as the cause of diseases classified elsewhere; N18.32 Chronic kidney disease, stage 3b; D72.829 Elevated white blood cell count, unspecified; G47.33 Obstructive sleep apnea (adult) (pediatric); M06.9 Rheumatoid arthritis, unspecified; K57.90 Diverticulosis of intestine, part unspecified, without perforation or abscess without bleeding; M15.9 Polyosteoarthritis, unspecified; E03.9 Hypothyroidism, unspecified; Z96.653 Presence of artificial knee joint, bilateral; E66.01 Morbid (severe) obesity due to excess calories; Z86.16 Personal history of COVID-19; Z79.01 Long term (current) use of anticoagulants; Z86.718 Personal history of other venous thrombosis and embolism; Z86.711 Personal history of pulmonary embolism; Z99.81 Dependence on supplemental oxygen; Z90.49 Acquired absence of other specified parts of digestive tract; Z79.52 Long term (current) use of systemic steroids
CPT/HCPCS: 36415; 36600; 51702; 71045; 71250; 73030; 73060; 74176; 74420; 76775; 80048; 80053; 80069; 80202; 81001; 82365; 82375; 82570; 82728; 82805; 82948; 83050; 83605; 83735; 83880; 84100; 84145; 84443; 84484; 84540; 85025; 85055; 85610; 85730; 86140; 87040; 87077; 87086; 87088; 87186; 88300; 93005; 93306; 94002; 94660; 96361; 96365; 96368; 96375; 96376; 97110; 97161; 97165; 97530; 97535; 99285; A9270; C1769; C2617; C8929; C9803; G0378; J0692; J0696; J1160; J1940; J2405; J2704; J3010; J3370; J3475; J7030; J7040; J7120; J7512; Q9957; U0003; U0005

== ENCOUNTER 2022-08-06 14:38 | Outpatient (CLI) | payer MEDICARE, SELFPAY ==
[2022-08-06 16:14] LABS: Anion Gap 15 mmol/L (8-16); Blood Urea Nitrogen 41 mg/dL (7-17); Calcium 9.3 mg/dL (8.4-10.2); Carbon Dioxide 24 mmol/L (22-30); Chloride 100 mmol/L (98-107); Estimated Glomerular Filt Rate 29; Glucose 119 mg/dL (65-110); Potassium 3.7 mmol/L (3.4-5.0); Sodium 139 mmol/L (137-145)
== END 2022-08-06 14:39 | disposition home or self-care (01) ==
PROVIDERS: PCP Internal Medicine; Visit Provider Internal Medicine
DX: I10 Essential (primary) hypertension (principal)
CPT/HCPCS: 36415; 80048

== ENCOUNTER 2022-08-07 01:12 | Day surgery (SDC) | payer MEDICARE, SELFPAY ==
[2022-08-02 13:23] VITALS: BMI 46.5
--- NOTE | 2022-08-02 13:40 | PC.NURSE ---
Report to the Outpatient Waiting Room, entrance under the green pavilion located off [facility], at time ___929____ on date ___08/07/22____. OR Time: _1030 . Time changes happen often and if your time is changed the preop area will call you the afternoon before. - You and your visitor will be asked to self-screen and do not enter if you have any COVID symptoms. - Only one visitor and NO children visitors are allowed at this time. - The patient visitor is requested to leave or wait in car when not with patient due to restrictions. - A mask is required within the hospital. - No food from midnight until time of surgery - N/A MAY HAVE LIGHT BREAKFAST - Infants may have breast milk until 4 hours before surgery, infant formula 6 hours prior to surgery. - Children will be allowed to drink immediately following surgery. If applicable, please bring a bottle or sippy cup to assist with drinking. Juice, water, soda, and popsicles are readily available. For infants on formula, please bring formula the day of surgery. Pacifiers are allowed. Take the following medications with a SIP of water the morning of surgery: _REGULAR AM HOME MEDS_ Medications to discontinue _ELIQUIS PER DR. GRIFFITHS'S INSTRUCTIONS_, Date to take last dose____ Please no make-up, nail paraguayan, hairspray, perfume, deodorant, or body powder the day of surgery. No jewelry (including any body piercings) or valuables the day of surgery, leave them at home. Please take a shower or bath the night before, or the morning of, surgery with an antibacterial soap. Wear comfortable, loose fitting clothing. Children are encouraged to wear pajamas. - Jewelry must be removed prior to entering the operating room. Rings and piercings that are not removed may be cut off. - The hospital will not accept responsibility for valuables. - Please leave all valuables, including medications, at home the day of surgery. If you are going home after surgery, a licensed delivery driver/supervisor must drive you home. - NO public transportation without another adult. - We recommend that an adult stay with you for 24 hours following discharge. - We also recommend that you do not drive, make important decision, drink alcoholic beverages, or take any drugs that were not prescribed by your health care provider for at least 24 hours after your discharge time. For Pediatric surgeries, we recommend two adults accompany the child home (only one inside the building at this time). Follow any additional instructions given to you from your surgeon. If you or anyone in your household have experienced Covid symptoms in the past week, please notify your surgeon or the nurse liaison at the phone number below for possible testing. Telephone instructions given to _PT'S DAUGHTER - BRIAN_and asked if any additional questions and then verbalized understanding. Patient advised to call surgeon office or pre surgery nurse liaison [phone] if any additional questions.
--- NOTE | 2022-08-07 08:24 | WPDHPUPDATE1 ---
History and Physical Update Update Date/Time: 08/07/22 08:24 History and Physical has been reviewed, including an updated exam of the patient. There are NO changes in the patient's condition. Risks, benefits, and alternatives have been discussed and questions answered. Patient agrees to proceed with procedure. Proceed with cysto , left stent removal.
[2022-08-07 10:00] VITALS: BP 147/71; PULSE 99; RESP 16; TEMP 36.2; O2SAT 99
[2022-08-07 10:33] VITALS: BP 132/66; PULSE 99; RESP 20; O2SAT 99
[2022-08-07] MEDS: LIDOCAINE HCL 2% GEL UROJET 10 ML PKG MUCOUS MEM (10:42)
--- NOTE | 2022-08-07 10:45 | W.PM.PROC2 ---
Procedure Note - Detailed Date of Procedure 08/07/22 Pre-op Diagnosis Lt Ureteral stent Post-op Diagnosis Same Procedure Performed Flexible cysto with left ureteral stent removal Surgeon Kaden Calderon MD Anesthesia Local Description of Procedure Patient is taken to the operative suite correctly identified. Once she was placed in the frog-leg position she was prepped draped usual sterile fashion. Flexible cystoscope was inserted into the bladder. The stent was visualized and grasped and removed in its entirety. 2% viscous lidocaine was inserted urethra patient is taken recovery stable condition. She will obtain a renal ultrasound in 1 months time. Drains No Packing No Pathology None sent Complications No immediate complications Condition Stable Disposition PACU
[2022-08-07 10:52] VITALS: BP 116/50; PULSE 63; RESP 16; O2SAT 100
[2022-08-07 10:54] VITALS: BP 127/59; PULSE 85; RESP 20; O2SAT 99
== END 2022-08-07 11:05 | disposition home or self-care (01) ==
PROVIDERS: PCP Internal Medicine; Visit Provider Urology
PROC: (CPT 52310; principal; 2022-08-07 10:30)
DX: Z46.6 Encounter for fitting and adjustment of urinary device (principal); N39.41 Urge incontinence; E03.9 Hypothyroidism, unspecified; R06.09 Other forms of dyspnea; I10 Essential (primary) hypertension; M79.89 Other specified soft tissue disorders; M19.90 Unspecified osteoarthritis, unspecified site; R53.83 Other fatigue; Z99.81 Dependence on supplemental oxygen; Z73.6 Limitation of activities due to disability
CPT/HCPCS: 52310; A9270

== ENCOUNTER 2022-08-13 07:10 | Outpatient (CLI) | payer MEDICARE, SELFPAY ==
[2022-08-13 08:20] LABS: Basophils Absolute Auto 0.1 K/mm3 (0.0-0.1); Basophils Percent Auto 0.5 % (0.2-1.2); Eosinophils Absolute Auto 0.3 K/mm3 (0-0.3); Eosinophils Percent Auto 2.6 % (0-4.4); Hematocrit 33.2 % (37.0-47.0); Hemoglobin 10.1 g/dL (12.0-15.0); Immature Granulocyte Absolute 0.08 K/mm3 (0.00-0.031); Immature Granulocyte Percent A 0.7 % (0-0.5); Lymphocytes Absolute Auto 2.14 K/mm3 (0.9-3.2); Lymphocytes Percent Auto 18.9 % (18.3-44.2); Mean Corpuscular HGB Conc 30.4 g/dl (32-36); Mean Corpuscular Hemoglobin 31.2 pg (26-34); Mean Corpuscular Volume 102.5 fl (80-100); Mean Platelet Volume 10.5 fl (7.4-10.4); Monocytes Absolute Auto 1.1 K/mm3 (0.1-0.6); Monocytes Percent Auto 9.9 % (2.6-8.5); Neutrophils Absolute Auto 7.7 K/mm3 (1.3-6.7); Neutrophils Percent Auto 67.4 % (45.5-73.1); Platelet Count Result 249 k/mm3 (150-375); Red Blood Count 3.24 M/mm3 (4.2-5.4); Red Cell Distribution Width 15.6 % (11.5-14.5); White Blood Count 11.4 K/mm3 (4.5-10.0)
[2022-08-13 08:29] LABS: Anion Gap 9 mmol/L (8-16); Blood Urea Nitrogen 39 mg/dL (7-17); Calcium 9.7 mg/dL (8.4-10.2); Carbon Dioxide 26 mmol/L (22-30); Chloride 102 mmol/L (98-107); Estimated Glomerular Filt Rate 34; Glucose 85 mg/dL (65-110); Potassium 3.7 mmol/L (3.4-5.0); Sodium 137 mmol/L (137-145)
== END 2022-08-13 07:11 | disposition home or self-care (01) ==
PROVIDERS: PCP Internal Medicine; Referring Provider Internal Medicine Cardiovascular Disease; Visit Provider Internal Medicine
DX: N18.30 Chronic kidney disease, stage 3 unspecified (principal); A41.9 Sepsis, unspecified organism
CPT/HCPCS: 36415; 80048; 85025

== ENCOUNTER 2022-08-20 07:06 | Outpatient (CLI) | payer MEDICARE, SELFPAY ==
[2022-08-20 08:09] LABS: Albumin Level 4.1 g/dL (3.5-5.1); Anion Gap 13 mmol/L (8-16); Blood Urea Nitrogen 39 mg/dL (7-17); Calcium 10.1 mg/dL (8.4-10.2); Carbon Dioxide 28 mmol/L (22-30); Chloride 100 mmol/L (98-107); Estimated Glomerular Filt Rate 32; Glucose 87 mg/dL (65-110); Phosphorus 3.1 mg/dL (2.5-4.5); Potassium 3.1 mmol/L (3.4-5.0); Sodium 141 mmol/L (137-145)
[2022-08-20 08:10] LABS: Anion Gap 12 mmol/L (8-16); Blood Urea Nitrogen 42 mg/dL (7-17); Carbon Dioxide 27 mmol/L (22-30); Chloride 100 mmol/L (98-107); Estimated Glomerular Filt Rate 32; Glucose 87 mg/dL (65-110); Potassium 3.3 mmol/L (3.4-5.0); Sodium 139 mmol/L (137-145)
[2022-08-20 08:21] LABS: Parathyroid Intact 69.8 pg/mL (7.5-53.5)
[2022-08-20 08:40] LABS: Creatinine Urine 81.2 mg/dL; Total Protein Urine Random 8 mg/dL
== END 2022-08-20 07:07 | disposition home or self-care (01) ==
PROVIDERS: PCP Internal Medicine; Referring Provider Internal Medicine Nephrology; Visit Provider Internal Medicine
DX: I12.9 Hypertensive chronic kidney disease with stage 1 through stage 4 chronic kidney disease, or unspecified chronic kidney disease (principal); N18.32 Chronic kidney disease, stage 3b
CPT/HCPCS: 36415; 80048; 80069; 82306; 82570; 83970; 84156

== ENCOUNTER 2022-08-23 07:58 | Outpatient (CLI) | payer MEDICARE, SELFPAY | END 2022-08-23 07:59 | disposition home or self-care (01) | LOC: ANHAUDIO 08:00 | PROVIDERS: PCP Internal Medicine; Visit Provider Internal Medicine | DX: H90.3 Sensorineural hearing loss, bilateral (principal) | CPT/HCPCS: 92557; 92567 ==

== ENCOUNTER 2022-08-30 07:14 | Outpatient (CLI) | payer MEDICARE, SELFPAY ==
[2022-08-30 07:40] LABS: Hemoglobin 10.6 g/dL (12.0-15.0)
[2022-08-30 07:54] LABS: Alanine Aminotransferase 16 U/L (6-35); Albumin Level 4.1 g/dL (3.5-5.1); Alkaline Phosphatase 60 U/L (38-126); Anion Gap 12 mmol/L (8-16); Aspartate Amino Transferase 23 U/L (14-36); Bilirubin,Total 0.4 mg/dL (0.2-1.3); Blood Urea Nitrogen 36 mg/dL (7-17); Calcium 10.1 mg/dL (8.4-10.2); Carbon Dioxide 29 mmol/L (22-30); Chloride 99 mmol/L (98-107); Cholesterol 176 mg/dL (0-200); Estimated Glomerular Filt Rate 40; Glucose 91 mg/dL (65-110); HDL Direct 89 mg/dL; Potassium 3.5 mmol/L (3.4-5.0); Sodium 140 mmol/L (137-145); Triglycerides 91 mg/dL (<150)
[2022-08-30 08:04] LABS: LDL Cholesterol Direct 44 mg/dL
[2022-08-30 09:14] LABS: Hemoglobin A1C 5.4 % (<5.7)
[2022-08-30 12:24] LABS: Vitamin B12 > 1000.0 pg/mL (239-931)
== END 2022-08-30 07:15 | disposition home or self-care (01) ==
LOC: ANHLAB 07:16
PROVIDERS: PCP Internal Medicine; Visit Provider Internal Medicine
DX: D64.9 Anemia, unspecified (principal); E03.9 Hypothyroidism, unspecified; I50.33 Acute on chronic diastolic (congestive) heart failure; E78.5 Hyperlipidemia, unspecified; E53.8 Deficiency of other specified B group vitamins; R73.03 Prediabetes; I10 Essential (primary) hypertension
CPT/HCPCS: 36415; 80053; 80061; 82607; 83036; 84443; 85014; 85018

== ENCOUNTER 2022-09-10 07:10 | Outpatient (CLI) | payer MEDICARE, SELFPAY ==
[2022-09-10 08:12] LABS: Hematocrit 34.6 % (37.0-47.0); Hemoglobin 10.7 g/dL (12.0-15.0)
[2022-09-10 08:24] LABS: Alanine Aminotransferase 16 U/L (6-35); Albumin Level 4.1 g/dL (3.5-5.1); Alkaline Phosphatase 65 U/L (38-126); Anion Gap 7 mmol/L (8-16); Aspartate Amino Transferase 24 U/L (14-36); Bilirubin,Total 0.5 mg/dL (0.2-1.3); Blood Urea Nitrogen 40 mg/dL (7-17); Calcium 9.9 mg/dL (8.4-10.2); Carbon Dioxide 28 mmol/L (22-30); Chloride 102 mmol/L (98-107); Cholesterol 164 mg/dL (0-200); Estimated Glomerular Filt Rate 44; Glucose 86 mg/dL (65-110); HDL Direct 84 mg/dL; Sodium 137 mmol/L (137-145); Triglycerides 104 mg/dL (<150)
[2022-09-10 08:35] LABS: LDL Cholesterol Direct 49 mg/dL
[2022-09-10 09:00] LABS: Hemoglobin A1C 5.3 % (<5.7)
== END 2022-09-10 07:11 | disposition home or self-care (01) ==
LOC: ANHLAB 07:15
PROVIDERS: PCP Internal Medicine; Visit Provider Internal Medicine
DX: I50.33 Acute on chronic diastolic (congestive) heart failure (principal); E78.5 Hyperlipidemia, unspecified; I10 Essential (primary) hypertension; R73.03 Prediabetes; E03.9 Hypothyroidism, unspecified; D64.9 Anemia, unspecified; E53.8 Deficiency of other specified B group vitamins
CPT/HCPCS: 36415; 80053; 80061; 82607; 83036; 84443; 85014; 85018

== ENCOUNTER 2022-09-21 08:08 | Outpatient (CLI) | payer MEDICARE, SELFPAY ==
--- NOTE | ~2022-09-21 | US_ITS ---
US retroperitoneal comp 09/21/2022 08:59 Procedure: Realtime transabdominal ultrasound of the kidneys and bladder. Indication: Left ureteral stone on CT Comparison: Ultrasound dated 07/24/2022 Findings: Renal echotexture is normal bilaterally without hydronephrosis, contour deforming mass or r enal calculus. There is a right renal cyst measuring 3 cm. The anterior pole of the right kidney is n ot well visualized due to bowel gas. The right kidney measures 11.1 cm and left kidney measures 10.9 cm. Bladder within normal limits. Impression: 1: Right renal cyst measuring 3 cm. Limited examination due to bowel gas. Reviewed, dictated and finalized at location B. Impression: 1: Right renal cyst measuring 3 cm. Limited examination due to bowel gas.
== END 2022-09-21 08:09 | disposition home or self-care (01) ==
PROVIDERS: PCP Internal Medicine; Visit Provider Nurse Practitioner Family
DX: N20.1 Calculus of ureter (principal); N28.1 Cyst of kidney, acquired
CPT/HCPCS: 76770

== ENCOUNTER 2022-11-02 08:00 | Outpatient (RCR) | payer MEDICARE, SELFPAY | END 2022-11-02 23:59 | disposition home or self-care (01) | LOC: ANHAUDIO 08:00 | PROVIDERS: PCP Internal Medicine; Visit Provider Internal Medicine | DX: H91.90 Unspecified hearing loss, unspecified ear (principal) | CPT/HCPCS: 99199; V5261 ==

== ENCOUNTER 2022-12-14 06:35 | Outpatient (CLI) | payer MEDICARE, SELFPAY ==
--- NOTE | ~2022-12-14 | MR_ITS ---
MRI of the thoracic spine Clinical History: Back pain Technique: Axial T2-weighted and gradient images, and sagittal T1-weighted, T2-weighted, and STIR misty ges were acquired. COMPARISON: CT scan dated 07/22/2022 Findings: There is an acute, mild compression fracture of T10, with minimal loss of height, and assoc iated marrow edema. There is a probable underlying intraosseous hemangioma within this vertebral body . There is also mild, acute to subacute compression fracture at the inferior endplate region of T12, with mild loss of height and mild marrow edema. There is a chronic appearing moderate compression fra cture of T11, with moderate loss of height but no marrow edema. There is also chronic mild loss of he ight at T5, without marrow edema. No other suspicious bone marrow signal abnormality seen. Probable additional intraosseous hemangioma in T4 vertebral body. No significant disc bulge or herniation seen at any thoracic level. No spinal canal stenosis or cord compression identified in the thoracic spine. No abnormal signal seen in the spinal cord. No epidural mass or collection seen. Paravertebral soft t issues are unremarkable. Impression: Acute mild compression fracture at the superior endplate region of T10, with probable underlying intr aosseous hemangioma. Acute to subacute mild compression fracture at the inferior endplate region of T12. Chronic compression fractures of T5 and T11. Reviewed, dictated and finalized at [facility]. [employer] Impression: Acute mild compression fracture at the superior endplate region of T10, with pr obable underlying intraosseous hemangioma. Acute to subacute mild compression fracture at the inferior endplate region of T12. Chronic compression fractures of T5 and T11.
== END 2022-12-14 06:36 | disposition home or self-care (01) ==
PROVIDERS: PCP Internal Medicine
DX: M54.6 Pain in thoracic spine (principal); M48.54XA Collapsed vertebra, not elsewhere classified, thoracic region, initial encounter for fracture
CPT/HCPCS: 72146

== ENCOUNTER 2022-12-17 07:34 | Outpatient (CLI) | payer MEDICARE, SELFPAY ==
[2022-12-17 08:13] LABS: Albumin Level 4.2 g/dL (3.5-5.1); Anion Gap 6 mmol/L (8-16); Blood Urea Nitrogen 33 mg/dL (7-17); Calcium 9.9 mg/dL (8.4-10.2); Carbon Dioxide 27 mmol/L (22-30); Chloride 102 mmol/L (98-107); Estimated Glomerular Filt Rate 40; Glucose 89 mg/dL (65-110); Phosphorus 3.4 mg/dL (2.5-4.5); Sodium 135 mmol/L (137-145)
[2022-12-17 08:18] LABS: Creatinine Urine 77.8 mg/dL; Total Protein Urine Random 12 mg/dL; Ur Ttl Prot Creatinine Ratio 0.15 mg/mg (0-0.20)
== END 2022-12-17 07:35 | disposition home or self-care (01) ==
PROVIDERS: PCP Internal Medicine; Visit Provider Internal Medicine Nephrology
DX: N18.32 Chronic kidney disease, stage 3b (principal); I12.9 Hypertensive chronic kidney disease with stage 1 through stage 4 chronic kidney disease, or unspecified chronic kidney disease; R80.8 Other proteinuria
CPT/HCPCS: 36415; 80069; 82570; 84156

== ENCOUNTER 2023-01-08 11:34 | Outpatient (CLI) | payer MEDICARE, SELFPAY ==
--- NOTE | ~2023-01-08 | DEXA_ITS ---
Bone Density Report Name: ROSEANNE GIBBS Age: 72 Sex: Female Ethnicity: White Date of : 1950 Indication: osteopenia; parental hip fracture; height loss; history of glucocorticoids; prior fracture; rheumatoid arthritis; postmenopausal Referring Provider: ETIENNE ROJAS Study: Bone densitometry was performed. Exam Date: January 08, 2023 Accession number: [id number] Bone Density: Region BMD T-score Z-score Classification AP Spine(L1-L4) 0.796 -2.3 0.1 Osteopenia Femoral Neck (Left) 0.624 -2.0 0.0 Osteopenia Total Hip (Left) 0.719 -1.8 -0.1 Osteopenia Femoral Neck (Right) 0.664 -1.7 0.4 Osteopenia Total Hip (Right) 0.646 -2.4 -0.7 Osteopenia Total Hip Mean 0.682 -2.1 -0.4 Osteopenia World Health Organization criteria for BMD impression classify patients as: Normal (T-score at or above -1.0), Osteopenia (T-score between -1.0 and -2.5), or Osteoporosis (T-score at or below -2.5). 10-year Fracture Risk: FRAX not reported because: Prior hip or vertebral fracture Previous Exams: Region Exam Age BMD T-score BMD Change BMD Change Date g/cm2 vs Baseline vs Previous AP Spine (L1-L4) 01/08/2023 72 0.796 -2.3 0.004 (0.5%) 0.004 (0.5%) 05/11/2019 69 0.792 -2.3 Total Hip(Left) 01/08/2023 72 0.719 -1.8 -0.059 (-7.5%) -0.059 (-7.5%) 05/11/2019 69 0.777 -1.3 Total Hip(Right) 01/08/2023 72 0.646 -2.4 -0.051 (-7.3%) -0.051 (-7.3%) 05/11/2019 69 0.696 -2.0 *Denotes significance at 95% confidence level, LSC for AP Spine = 0.022 g/cm2, LSC for Total Hip = 0.027 g/cm2 # Denotes dissimilar scan types or analysis methods Clinical Information Provided by Patient: Have had a previous hip or vertebral fracture Has had a low trauma fracture Parent has had a hip fracture Has taken Glucocorticoids Has rheumatoid arthritis Has used the following medications: Vitamin D, Calcium Patient maximum height was 65 Menopause Age: 48 No regular weight bearing exercise Does not regularly consume dairy products Drinks caffeinated beverages Onset of menses at age 9 Number of children 5 Impression: The patient has low bone mass, based on the Right Total Hip T-score. The patient has risk factors, including: parental hip fracture, previous fracture, history of glucocorticoid therapy. The BMD for the Total Hip(Right) decreased, changing by -7.3% since the last DXA exam. Discussion: INCREASED RISK OF FRACTURE DUE TO HISTORY OF FRACTURE. The pat
== END 2023-01-08 11:35 | disposition home or self-care (01) ==
PROVIDERS: PCP Internal Medicine
DX: Z13.820 Encounter for screening for osteoporosis (principal); S22.058A Other fracture of T5-T6 vertebra, initial encounter for closed fracture; X58.XXXA Exposure to other specified factors, initial encounter; M85.88 Other specified disorders of bone density and structure, other site; M85.852 Other specified disorders of bone density and structure, left thigh; M85.851 Other specified disorders of bone density and structure, right thigh
CPT/HCPCS: 77080; 81001; 87086; 87088

== ENCOUNTER 2023-01-08 12:21 | Outpatient (NON) | payer MEDICARE, SELFPAY ==
[2023-01-08 12:37] LABS: Appearance Urine Cloudy (Clear); Bilirubin Urine Negative (Negative); Blood Urine Trace-intact (Negative); Color Urine Yellow (Yellow); Glucose Urine UA Negative (Negative); Ketones Urine Negative (Negative); Leukocyte Esterase Ur 2+ LEU/UL (Negative); Nitrate Urine Negative (Negative); Protein Urine 1+ mg/dL (Negative); Specific Grav Ur 1.025 (1.001-1.035); Urobilinogen Urine 0.2 mg/dL (<2.0); pH Urine 5.5 (5.0-9.0)
[2023-01-08 12:48] LABS: Bacteria Urine Trace /hpf; Squamous Epithelial Cell Urine Many /hpf (Few); WBC Clumps Urine Present /HPF; WBC Urine >75 /hpf
[2023-01-08 12:49] LABS: Add Urine Microscopic? YES
== END 2023-01-08 12:22 | disposition home or self-care (01) ==
PROVIDERS: PCP Internal Medicine; Visit Provider Nurse Practitioner
DX: R39.9 Unspecified symptoms and signs involving the genitourinary system (principal)
CPT/HCPCS: 81001; 87086; 87088

== ENCOUNTER 2023-03-12 13:09 | Inpatient (IN) | payer MEDICARE, SELFPAY ==
[2023-03-12] VITALS (25 sets, daily range): BP systolic 111–134; BP diastolic 74–99; PULSE 80–142; RESP 17–28; TEMP 36.5–36.6; O2SAT 94–99; BMI 44.2
--- NOTE | ~2023-03-12 | XR_ITS ---
XR chest 1V portable 03/12/2023 14:18 Indication: Shortness of breath. Leukocytosis. Procedure: AP portable chest Comparison: Comparison to multiple prior studies sequentially, with oldest reviewed study dated 05/26/2022. Findings: Cardiomegaly with diffuse bilateral airspace disease which may represent edema or pneumonia . No significant effusion. No pneumothorax. Impression: 1: Diffuse bilateral airspace disease may represent edema or pneumonia. Reviewed, dictated and finalized at location A. Impression: 1: Diffuse bilateral airspace disease may represent edema or pneumonia.
--- NOTE | 2023-03-12 13:15 | ECG_ITS ---
Measurements Intervals [place] Rate: 142 P: MI: 0 QRS: -21 QRSD: 125 T: 78 QT: 306 QTc: 471 Interpretive Statements ATRIAL FLUTTER/TACHYCARDIA WITH RAPID VENTRICULAR RESPONSE LEFT VENTRICULAR HYPERTROPHY AND ST-T CHANGE [VOLTAGE CRITERIA PLUS ST/T ABNORMALITY] COMPARED TO ECG 07/21/2022 12:53:48 ATRIAL FLUTTER NOW PRESENT Electronically Signed On 03-12-2023 18:02:43 CDT by Ninfa Khan M.D.
--- NOTE | 2023-03-12 13:19 | PC.NURSE ---
pt to room 11 via w/c. pt to awake overnight monitor. Dr. Brady at bedside. Ashley charge nurse aware.
--- NOTE | 2023-03-12 13:29 | ED.ARRPALP ---
HPI - Arrhythmia/Palpitations General Chief Complaint: Arrhythmia/Palpitations Stated Complaint: svt Time Seen by Provider: 03/12/23 13:28 History of Present Illness HPI narrative: Pt presents with elevated HR and palpitations for 2 weeks. Pt denies CP. Pt has some SOB that is worse with exertion. Related Data Home Medications Medication Instructions Recorded Confirmed Calcium 600-D3 Plus (mag-zinc) 1 tablet PO BID 07/21/22 03/12/23 abatacept 125 mg/mL subcutaneous 125 mg subcut WEEKLY 07/21/22 03/12/23 syringe (Orencia) cholecalciferol (vitamin D3) 25 25 mcg PO DAILY 07/21/22 03/12/23 mcg (1,000 unit) capsule cyanocobalamin (vitamin B-12) 1,000 mcg PO DAILY 07/21/22 03/12/23 1,000 mcg tablet hydroxychloroquine 200 mg tablet 200 mg PO BID 07/21/22 03/12/23 metoprolol succinate 25 mg 50 mg PO DAILY 07/21/22 03/12/23 tablet,extended release 24 hr acetaminophen 325 mg capsule 325 mg PO Q6H PRN 12/27/22 03/12/23 (Tylenol) prednisone 2.5 mg tablet 2.5 mg PO DAILY 12/27/22 03/12/23 furosemide 20 mg tablet 60 mg PO DAILY 01/10/23 03/12/23 Allergies Allergy/AdvReac Type Severity Reaction Status Date / Time No Known Allergies Allergy Verified 03/12/23 10:14 [facility] Past Medical History Medical History Afib Atrial fibrillation Chronic diastolic (congestive) heart failure Chronic diastolic CHF (congestive heart failure) Chronic respiratory failure Wears home O2 2-4 Chronic respiratory failure Congestive heart failure 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 Depression with anxiety Diverticulosis Diverticulosis DJD (degenerative joint disease), multiple sites DJD (degenerative joint disease), multiple sites DVT (deep venous thrombosis) 2004 DVT (deep venous thrombosis) 2004 Essential (primary) hypertension Essential hypertension Hearing loss Hearing loss History of COVID-19 History of shingles HLD (hyperlipidemia) Hyperlipidemia Hypomagnesemia Hypothyroid Hypothyroidism Interstitial lung disease Interstitial lung disease Morbid obesity Morbid obesity Nonspecific interstitial pneumonitis Nonspecific interstitial pneumonitis Obstructive sleep apnea on CPAP STARR on CPAP Osteoporosis Paroxysmal atrial fibrillation Paroxysmal atrial fibrillation Post menopausal syndrome Pre-diabetes Pulmonary embolism 2005 Pulmonary embolism 2005 Pulmonary HTN Pulmonary hypertension Rheumatoid arthritis Rheumatoid arthritis Screening for breast cancer Screening for colon cancer Screening for osteoporosis Shingles Stress incontinence Stress incontinence Trochanteric bursitis, right hip Unilateral primary osteoarthritis, right knee (05/15/17) UTI due to extended-spectrum beta lactamase (ESBL) producing Escherichia coli Surgical History Surgical History H/O arthroscopic knee surgery rt knee H/O section H/O parathyroidectomy History of bilateral knee replacement History of cardiac catheterization History of cardiac catheterization History of section, classical History of parathyroidectomy History of parathyroidectomy for hyperparathyroidism History of tonsillectomy and adenoidectomy History of total bilateral knee replacement History of total knee replacement (TKR) bilateral Hx of arthroscopic knee surgery Right knee Hx of cardiac cath 1994 Hx of section Hx of cholecystectomy Hx of cholecystectomy Hx of tonsillectomy S/P right knee arthroscopy Family History Family History Mother Hypertension Father Pulmonary emboli Rheumatoid arthritis Mother , at 91 due to old age Hypertension Father , at 58 due to PE Family history of rheumatoid arthritis Family history of pulmonary embolism Grandparent Cerebrovascular acciden
[2023-03-12] MEDS: dilTIAZem 100 MG/100 ML 100 MG/100 ML BAG 10 MG IV CONT (14:02)
[2023-03-12] MEDS: dilTIAZem HCl INJ 25 MG/5 ML VIAL 20 MG IV PUSH (14:02)
[2023-03-12 14:07] LABS: Hematocrit 32.5 % (37.0-47.0); Hemoglobin 9.9 g/dL (12.0-15.0); Mean Corpuscular Volume 101.6 fl (80-100); White Blood Count 10.2 K/mm3 (4.5-10.0)
[2023-03-12 14:08] LABS: Basophils Absolute Auto 0.1 K/mm3 (0.0-0.1); Basophils Percent Auto 0.7 % (0.2-1.2); Eosinophils Absolute Auto 0.3 K/mm3 (0-0.3); Eosinophils Percent Auto 2.5 % (0-4.4); Immature Granulocyte Absolute 0.05 K/mm3 (0.00-0.031); Immature Granulocyte Percent A 0.5 % (0-0.5); Lymphocytes Absolute Auto 1.04 K/mm3 (0.9-3.2); Lymphocytes Percent Auto 10.2 % (18.3-44.2); Mean Corpuscular HGB Conc 30.5 g/dl (32-36); Mean Corpuscular Hemoglobin 30.9 pg (26-34); Mean Platelet Volume 10.3 fl (7.4-10.4); Monocytes Absolute Auto 1.2 K/mm3 (0.1-0.6); Monocytes Percent Auto 11.5 % (2.6-8.5); Neutrophils Absolute Auto 7.6 K/mm3 (1.3-6.7); Neutrophils Percent Auto 74.6 % (45.5-73.1); Platelet Count Result 281 k/mm3 (150-375); Red Cell Distribution Width 14.1 % (11.5-14.5)
[2023-03-12 14:17] LABS: INR 1.5; Prothrombin Time 17.8 Seconds (11.1-14.7)
[2023-03-12 14:18] LABS: Partial Thromboplastin Time 31.6 SECONDS (22.3-36.8)
[2023-03-12 14:20] LABS: Alanine Aminotransferase 15 U/L (6-35); Albumin Level 4.1 g/dL (3.5-5.1); Alkaline Phosphatase 37 U/L (38-126); Anion Gap 8 mmol/L (8-16); Aspartate Amino Transferase 26 U/L (14-36); Bilirubin,Total 0.7 mg/dL (0.2-1.3); Blood Urea Nitrogen 34 mg/dL (7-17); Calcium 9.7 mg/dL (8.4-10.2); Carbon Dioxide 24 mmol/L (22-30); Chloride 107 mmol/L (98-107); Estimated CRCL calculation 42 ml/min; Estimated Glomerular Filt Rate 44; Glucose 101 mg/dL (65-110); Potassium 4.9 mmol/L (3.4-5.0); Sodium 139 mmol/L (137-145)
[2023-03-12 14:27] LABS: NT Pro B Type Natriuretic Pept 3570 pg/mL (19.9-100)
[2023-03-12 17:19] LABS: Troponin I 0.033 ng/mL (0.000-0.034)
[2023-03-12] MEDS: FUROSEMIDE INJ 40 MG/4 ML VIAL IV PUSH (17:37)
--- NOTE | 2023-03-12 19:00 | PM.IMHP ---
H&P: HPI History of Present Illness Date/Time: 03/12/23 19:00 Chief Complaint: Elevated heart rate. Narrative: This is a pleasant 72-year-old female with multiple medical problems including chronic respiratory failure with hypoxia on oxygen, diastolic congestive heart failure, atrial fibrillation, hypertension, hypothyroidism, rheumatoid arthritis, interstitial lung disease, hypothyroidism, history of DVT and PE, sleep apnea on PAP therapy, and other comorbidities who presented to the emergency department from her doctor's office for evaluation of an elevated heart rate. Patient provides the following history. She monitors her pulse ox at home and reports that her heart rate has been rapid and irregular for a couple of weeks though she has absolutely no symptoms of racing heart or palpitations. She made an appointment with her doctor today at the urging of her daughter and she was sent to the emergency department as her heart rate was in the 140s to 150s. EKG on arrival to the ED showed atrial flutter/tachycardia with rapid ventricular response and she has been started on a diltiazem drip with some improvement in her rate. It looks like she is maintained on metoprolol at home. She states compliance with all of her medications and she is not certain as to why she has gone back into AFib. Labs seemed to be pretty consistent with what she typically runs though her troponin and proBNP are a bit elevated. Chest x-ray today showed diffuse bilateral airspace disease which may represent edema or pneumonia. With further questioning she does endorse a cough occasionally productive of greenish phlegm that has been ongoing for several weeks and in fact she has been prescribed 2 different antibiotics (cefdinir and Augmentin) 4 though symptoms without benefit. She has chronic orthopnea which is unchanged. She also has chronic pitting edema which she states is unchanged. She denies fever, chills, sweats, sinus congestion, sore throat, sick contacts, chest pain pleuritic pain, palpitations, nausea, vomiting, and diarrhea. In the ED she was started on the diltiazem drip as detailed above in given a dose of IV furosemide. Review of Systems Review of Systems: Twelve systems were reviewed and are negative except for as per HPI. [facility] Past Medical History Medical History Chronic anemia Chronic anticoagulation Chronic diastolic congestive heart failure Echocardiogram in 06/2022 showed an EF 50 to 55% and diastolic dysfunction. Chronic kidney disease, stage 3 Chronic respiratory failure with hypoxia, on home oxygen therapy On 2 to 4 L nasal cannula. Deep venous thrombosis (2004) Degenerative joint disease Depression with anxiety Diverticulosis Essential hypertension Hearing loss History of COVID-19 Hyperlipidemia Hypothyroidism Interstitial lung disease Morbid obesity Nonspecific interstitial pneumonitis Obstructive sleep apnea on CPAP Osteoporosis Paroxysmal atrial fibrillation Post menopausal syndrome Pre-diabetes Pulmonary embolism (2004) Rheumatoid arthritis Shingles Stress incontinence Vitamin D deficiency Surgical History Surgical History History of arthroscopy of right knee History of bilateral knee replacement History of cardiac catheterization History of section History of cholecystectomy History of parathyroidectomy History of tonsillectomy and adenoidectomy Family History Family History Mother Hypertension Father Pulmonary emboli Rheumatoid arthritis Mother , at 91 due to old age Hypertension Father , at 58 due to PE Family history of rheumatoid arthritis Family history of pulmonary embolism Grandparent Cerebrovascular accident Other Family history of malignant neoplasm Social History Social History (Updat
[2023-03-12 20:29] LABS: Troponin I 0.039 ng/mL (0.000-0.034)
--- NOTE | 2023-03-12 20:57 | ADMIMU ---
This patient, Ayanna Cash, was admitted to IMU status, and placed in IMU Room 211-01. Patient/family oriented to hospital policies and general routines including ID bracelet, bed and alarms, visiting hours, pain management, procedures, bathroom and other care routines, personal items, smoking policy, room service/diet, and visiting hours. Valuables list has been completed. Information on how to activate the Rapid Response Team has been discussed. Patient/Family are encouraged to report perceived risks to care and to ask questions if they do not understand what they are told or what they should do. [id number]
[2023-03-12] MEDS: dilTIAZem 100 MG/100 ML 100 MG/100 ML BAG 15 MG IV CONT (21:00)
[2023-03-12 22:00] LABS: CRP 6.1 mg/dL (<1.0)
[2023-03-12] MEDS: WATER FOR IRRIGATION, STERILE 1,000 ML BOTTLE 1000 ML (22:16)
[2023-03-12 23:09] LABS: Procalcitonin 0.2 ng/mL
[2023-03-13] VITALS (22 sets, daily range): BP systolic 124–146; BP diastolic 74–98; PULSE 73–144; RESP 18–24; TEMP 36.2–36.6; O2SAT 95–100
--- NOTE | 2023-03-13 03:52 | PC.NURSE ---
MD Russell called for HR consistently in the 140's.
[2023-03-13 04:54] LABS: Hematocrit 31.1 % (37.0-47.0); Hemoglobin 9.3 g/dL (12.0-15.0); Mean Corpuscular HGB Conc 29.9 g/dl (32-36); Mean Corpuscular Hemoglobin 30.7 pg (26-34); Mean Corpuscular Volume 102.6 fl (80-100); Mean Platelet Volume 9.7 fl (7.4-10.4); Platelet Count Result 248 k/mm3 (150-375); Red Blood Count 3.03 M/mm3 (4.2-5.4); Red Cell Distribution Width 14.3 % (11.5-14.5); White Blood Count 7.9 K/mm3 (4.5-10.0)
[2023-03-13] MEDS: AMIODARONE 360 MG/D5W 200 ML 360 MG/200 ML BAG 33.33 MG IV CONT (04:55)
[2023-03-13] MEDS: dilTIAZem 100 MG/100 ML 100 MG/100 ML BAG 15 MG IV CONT (04:57)
[2023-03-13] MEDS: traMADol HCL (*CRX) 50 MG TABLET PO (04:59)
[2023-03-13 05:04] LABS: Anion Gap 5 mmol/L (8-16); Blood Urea Nitrogen 30 mg/dL (7-17); Calcium 9.3 mg/dL (8.4-10.2); Carbon Dioxide 32 mmol/L (22-30); Chloride 104 mmol/L (98-107); Estimated CRCL calculation 43 ml/min; Estimated Glomerular Filt Rate 44; Glucose 95 mg/dL (65-110); Magnesium 1.7 mg/dL (1.6-2.3); Potassium 4.4 mmol/L (3.4-5.0); Sodium 141 mmol/L (137-145)
--- NOTE | 2023-03-13 07:54 | PM.CNCAR ---
Assessment and Plan Assessment and plan (1) Atrial fibrillation with rapid ventricular response: Code(s): I48.91 - Unspecified atrial fibrillation Status: Acute Assessment and Plan: Chronic atrial fibrillation managed with rate control and anticoagulation strategy on 50mg ToprolXL as outpatient. Has been tachycardic for several days at home, presented to the emergency department last night. Heart rate was in the 140's at presentation. Initially given Diltiazem bolus and placed on diltiazem drip. Amiodarone was added because there was no improvement of HR on Diltiazem. Currently, her HR is in the 90's and she is asymptomatic. D/c diltiazem Continue amiodarone for now Home metoprolol has been resumed Amiodarone to complete tomorrow morning around 0500, continue until then. Will monitor HR off amiodarone and potentially increase metoprolol dose based on her rate off amio. Continue a/c with apixaban (2) Acute on chronic diastolic congestive heart failure: Code(s): I50.33 - Acute on chronic diastolic (congestive) heart failure Status: Acute Assessment and Plan: Mild CHF, probably secondary to tachycardia. She has known diastolic dysfunction Agree with intermittent IV furosemide BMP in the morning History of Present Illness History of Present Illness Consult date/time: 03/13/23 07:54 Consult reason: atrial fibrillation Reason For Visit: A Fib with RVR Narrative: Ayanna Cash is a 71-year-old female with a history of atrial fibrillation and diastolic heart failure. She is usually rate controlled on metoprolol, but about 4 days ago she noticed her heart rate being elevated in the 130's - 140's on pulse oximetry check, and in the 180's after climbing some stairs. She was not experiencing any symptoms, but her daughter encouraged her to come to the hospital for evaluation. Her initial EKG in the emergency department showed atrial fibrillation with RVR, rate 140bpm. She was given a diltiazem bolus and started on a Diltiazem drip, but had no improvement in heart rate. Amiodarone was added. She denies any chest pain, palpitations, syncope, pre-syncope. She does have chronic shortness of breath and endorses some intermittent lower extremity edema. Currently, her heart rate is controlled in the 90's and she is comfortable without any complaints. Review of Systems Review of Systems: All systems reviewed & are unremarkable except as noted in HPI and below PMFSH Past Medical History Medical History Chronic anemia Chronic anticoagulation Chronic diastolic congestive heart failure Echocardiogram in 06/2022 showed an EF 50 to 55% and diastolic dysfunction. Chronic kidney disease, stage 3 Chronic respiratory failure with hypoxia, on home oxygen therapy On 2 to 4 L nasal cannula. Deep venous thrombosis (2004) Degenerative joint disease Depression with anxiety Diverticulosis Essential hypertension Hearing loss History of COVID-19 Hyperlipidemia Hypothyroidism Interstitial lung disease Morbid obesity Nonspecific interstitial pneumonitis Obstructive sleep apnea on CPAP Osteoporosis Paroxysmal atrial fibrillation Post menopausal syndrome Pre-diabetes Pulmonary embolism (2004) Rheumatoid arthritis Shingles Stress incontinence Vitamin D deficiency Surgical History Surgical History (Updated 03/12/23 @ 20:16 by Jaki Perez PA-C) History of arthroscopy of right knee History of bilateral knee replacement History of cardiac catheterization History of section History of cholecystectomy History of parathyroidectomy History of tonsillectomy and adenoidectomy Family History Family History Mother Hypertension Father Pulmonary emboli Rheumatoid arthritis Mother , at 91 due to old age Hypertension Father , at 58 due to PE Fa
[2023-03-13] MEDS: POTASSIUM CHLORIDE 20 MEQ TABLET.ER PO (08:48)
[2023-03-13] MEDS: DULoxetine HCL 20 MG CAPSULE.DR BY MOUTH (08:49)
[2023-03-13] MEDS: CHOLECALCIFEROL 1,000 UNITS TABLET 2000 UNITS PO (08:49)
[2023-03-13] MEDS: CYANOCOBALAMIN 1,000 MCG TABLET 1000 MCG PO (08:49)
[2023-03-13] MEDS: METOPROLOL SUCCINATE EXT REL 50 MG TABCR PO (08:49)
[2023-03-13] MEDS: LEVOTHYROXINE SODIUM 112 MCG TABLET PO (08:49)
[2023-03-13] MEDS: HYDROXYCHLOROQUINE SULFATE 200 MG TABLET PO ×2 (08:49→17:12)
[2023-03-13] MEDS: APIXABAN 5 MG TABLET PO ×2 (08:49→20:37)
[2023-03-13] MEDS: predniSONE 2.5 MG TABLET PO (08:49)
[2023-03-13] MEDS: FUROSEMIDE INJ 40 MG/4 ML VIAL IV PUSH ×2 (08:51→17:12)
[2023-03-13] MEDS: ACETAMINOPHEN 325 MG TABLET 650 MG PO ×2 (09:01→20:38)
[2023-03-13] MEDS: AMIODARONE 360 MG/D5W 200 ML 360 MG/200 ML BAG 16.67 MG IV CONT ×2 (10:08→20:25)
[2023-03-13] MEDS: CHOLESTYRAMINE LIGHT 4 GM POWD.PACK PO (10:14)
--- NOTE | 2023-03-13 13:43 | PM.IMPN ---
Progress Note: A&P Assessment and Plan (1) Atrial flutter with rapid ventricular response: Code(s): I48.92 - Unspecified atrial flutter Status: Acute Assessment and Plan: Patient is now on amiodarone. Heart rate is better controlled. (2) Acute on chronic diastolic congestive heart failure: Code(s): I50.33 - Acute on chronic diastolic (congestive) heart failure Status: Acute Assessment and Plan: Monitor volume status. (3) Chronic kidney disease, stage 3: Code(s): N18.30 - Chronic kidney disease, stage 3 unspecified Status: Acute Assessment and Plan: Creatinine is stable on review of previous labs. (4) Chronic anemia: Code(s): D64.9 - Anemia, unspecified Status: Acute Assessment and Plan: Stable on review of previous labs. (5) Chronic respiratory failure with hypoxia, on home oxygen therapy: Code(s): J96.11 - Chronic respiratory failure with hypoxia; Z99.81 - Dependence on supplemental oxygen Status: Acute Assessment and Plan: She is at her baseline oxygen requirement. (6) Essential hypertension: Code(s): I10 - Essential (primary) hypertension Status: Acute Assessment and Plan: Blood pressures were reviewed and they have been stable. Continue antihypertensives and monitor daily. (7) Chronic anticoagulation: Code(s): Z79.01 - halfway (current) use of anticoagulants Status: Acute Assessment and Plan: Continue apixaban. (8) Rheumatoid arthritis: Qualifiers: Rheumatoid arthritis location: unspecified site Rheumatoid factor presence: unspecified presence Qualified Code(s): M06.9 - Rheumatoid arthritis, unspecified Code(s): M06.9 - Rheumatoid arthritis, unspecified Status: Chronic Assessment and Plan: Continue hydroxychloroquine. (9) Hypothyroidism: Code(s): E03.9 - Hypothyroidism, unspecified Status: Acute Assessment and Plan: Continue levothyroxine and check TSH. Subjective Date/time seen: 03/13/23 13:43 Heart rate better controlled. Blood pressure is okay. Exam Narrative: General: Well-developed, nontoxic-appearing female sitting up in bed. Weight: 109.8 kg. BMI: 44.3. HEENT: Wearing corrective lenses. PERRL, EOMI. Sclera anicteric. Oral mucosa moist. Neck: Supple. No significant JVD or lymphadenopathy. Respiratory: Respirations are nonlabored. Lung sounds are a bit diminished at the bases with faint crackles. Cardiovascular: Irregularly irregular rate and rhythm. Gastrointestinal: Abdomen is soft, nontender, and nondistended with positive bowel sounds. Skin: Warm and dry. No rash or lesions on limited exam. Extremities: No cyanosis or clubbing. She has pitting and nonpitting edema of the lower legs bilaterally. No palpable knots or cords. Neurological: Alert. Cranial nerves 2-12 are grossly intact. No gross focal deficits to casual conversation. Psychiatric: Pleasant and cooperative with normal mood and affect. Judgment and insight intact. Objective Data Vital Signs Vital Signs: Vital Signs - 24 hr 03/12/23 13:53 03/12/23 14:02 03/12/23 14:46 Temperature Pulse Rate 142 H 141 H 113 H Respiratory Rate 23 H 22 H Blood Pressure 133/84 128/88 120/86 Pulse Oximetry 97 96 Oxygen Delivery Room Air 03/12/23 15:41 03/12/23 16:12 03/12/23 13:54 Temperature Pulse Rate 128 H 106 H Respiratory Rate 25 H Blood Pressure 133/75 114/74 Pulse Oximetry 95 97 Oxygen Delivery 03/12/23 14:00 03/12/23 14:01 03/12/23 14:24 Temperature Pulse Rate 142 H 141 H Respiratory Rate 21 H Blood Pressure 128/88 Pulse Oximetry 97 96 97 Oxygen Delivery 03/12/23 14:30 03/12/23 14:34 03/12/23 14:52 Temperature Pulse Rate 100 90 100 Respiratory Rate 24 H 26 H 28 H Blood Pressure 111/83 Pulse Oximetry 97 96 98 Oxygen Delivery 03/12/23 15:06
--- NOTE | 2023-03-13 13:52 | PCCCNOTE ---
On 03/13/23, the student, [Edilma Newton ], provided care and completed [facility] documentation on this patient. I have reviewed the student's documentation and agree with the findings.
[2023-03-13] MEDS: PRAVASTATIN SODIUM 20 MG TABLET 80 MG PO (20:37)
[2023-03-14] VITALS (18 sets, daily range): BP systolic 123–154; BP diastolic 59–90; PULSE 76–139; RESP 16–96; TEMP 36.2–36.7; O2SAT 95–100
[2023-03-14] MEDS: traMADol HCL (*CRX) 50 MG TABLET PO ×2 (05:30→20:36)
[2023-03-14] MEDS: LEVOTHYROXINE SODIUM 112 MCG TABLET PO (05:31)
[2023-03-14] MEDS: LEVALBUTEROL NEB 1.25 MG/3 ML INHALATION (09:11)
[2023-03-14] MEDS: ACETAMINOPHEN 325 MG TABLET 650 MG PO (10:44)
[2023-03-14] MEDS: guaiFENesin/CODEINE (*CRX) 200/20 MG 10 ML SYRUP PO ×2 (10:45→20:34)
[2023-03-14] MEDS: FUROSEMIDE INJ 40 MG/4 ML VIAL IV PUSH (10:45)
[2023-03-14] MEDS: POTASSIUM CHLORIDE 20 MEQ TABLET.ER PO (10:46)
[2023-03-14] MEDS: CYANOCOBALAMIN 1,000 MCG TABLET 1000 MCG PO (10:46)
[2023-03-14] MEDS: CHOLECALCIFEROL 1,000 UNITS TABLET 2000 UNITS PO (10:46)
[2023-03-14] MEDS: HYDROXYCHLOROQUINE SULFATE 200 MG TABLET PO ×2 (10:47→16:07)
[2023-03-14] MEDS: APIXABAN 5 MG TABLET PO ×2 (10:47→20:35)
[2023-03-14] MEDS: DULoxetine HCL 20 MG CAPSULE.DR BY MOUTH (10:48)
[2023-03-14] MEDS: predniSONE 2.5 MG TABLET PO (10:48)
[2023-03-14] MEDS: METOPROLOL TARTRATE TAB 25 MG, METOPROLOL TARTRATE TAB 12.5 MG 37.5 MG PO ×3 (10:49→21:24)
[2023-03-14] MEDS: CHOLESTYRAMINE LIGHT 4 GM POWD.PACK PO (10:52)
--- NOTE | 2023-03-14 11:24 | PM.IMPN ---
Progress Note: A&P Assessment and Plan (1) Atrial flutter with rapid ventricular response: Code(s): I48.92 - Unspecified atrial flutter Status: Acute Assessment and Plan: Currently on a amiodarone drip and her heart rate is still elevated. Continue metoprolol. Appreciate cardiology input (2) Acute on chronic diastolic congestive heart failure: Code(s): I50.33 - Acute on chronic diastolic (congestive) heart failure Status: Acute Assessment and Plan: Likely due to high-output failure given ongoing tachycardia for the last couple of weeks. Continue diuresis with close monitoring of volume status, renal function, electrolytes. (3) Chronic kidney disease, stage 3: Code(s): N18.30 - Chronic kidney disease, stage 3 unspecified Status: Acute Assessment and Plan: Creatinine is stable on review of previous labs. (4) Chronic anemia: Code(s): D64.9 - Anemia, unspecified Status: Acute Assessment and Plan: Stable on review of previous labs. (5) Chronic respiratory failure with hypoxia, on home oxygen therapy: Code(s): J96.11 - Chronic respiratory failure with hypoxia; Z99.81 - Dependence on supplemental oxygen Status: Acute Assessment and Plan: She is at her baseline oxygen requirement. (6) Essential hypertension: Code(s): I10 - Essential (primary) hypertension Status: Acute Assessment and Plan: Blood pressures were reviewed and they have been stable. Continue antihypertensives and monitor daily. (7) Chronic anticoagulation: Code(s): Z79.01 - half-way (current) use of anticoagulants Status: Acute Assessment and Plan: Continue apixaban. (8) Rheumatoid arthritis: Qualifiers: Rheumatoid arthritis location: unspecified site Rheumatoid factor presence: unspecified presence Qualified Code(s): M06.9 - Rheumatoid arthritis, unspecified Code(s): M06.9 - Rheumatoid arthritis, unspecified Status: Chronic Assessment and Plan: Continue hydroxychloroquine. (9) Hypothyroidism: Code(s): E03.9 - Hypothyroidism, unspecified Status: Acute Assessment and Plan: Continue levothyroxine and check TSH. Subjective Date/time seen: 03/14/23 11:24 No new complaints. Feeling more weak today. Heart rate is elevated. Exam Narrative: General: Well-developed, nontoxic-appearing female sitting up in bed. Weight: 109.8 kg. BMI: 44.3. HEENT: Wearing corrective lenses. PERRL, EOMI. Sclera anicteric. Oral mucosa moist. Neck: Supple. No significant JVD or lymphadenopathy. Respiratory: Respirations are nonlabored. Lung sounds are a bit diminished at the bases with faint crackles. Cardiovascular: Irregularly irregular rate and rhythm. Gastrointestinal: Abdomen is soft, nontender, and nondistended with positive bowel sounds. Skin: Warm and dry. No rash or lesions on limited exam. Extremities: No cyanosis or clubbing. She has pitting and nonpitting edema of the lower legs bilaterally. No palpable knots or cords. Neurological: Alert. Cranial nerves 2-12 are grossly intact. No gross focal deficits to casual conversation. Psychiatric: Pleasant and cooperative with normal mood and affect. Judgment and insight intact. Objective Data Vital Signs Vital Signs: Vital Signs - 24 hr 03/13/23 11:45 03/13/23 12:00 03/13/23 12:00 Temperature 97.1 F L Pulse Rate 80 106 H Respiratory Rate 24 H Blood Pressure 130/98 H Pulse Oximetry 99 Oxygen Delivery Room Air Oxygen Flow Rate Fraction of Inspired Oxygen 03/13/23 12:00 03/13/23 14:00 03/13/23 16:00 Temperature 97.1 F L Pulse Rate 80 95 90 Respiratory Rate 24 H Blood Pressure 130/98 H Pulse Oximetry 99 Oxygen Delivery Oxygen Flow Rate Fraction of Inspired Oxygen 03/13/23 16:00 03/13/23 16:00 03/13/23 18:00 Temperature 97.1 F L Pulse Rate 88
--- NOTE | 2023-03-14 14:07 | PM.PNCARD ---
Progress Note: A&P Assessment and Plan (1) Atrial fibrillation with rapid ventricular response: Code(s): I48.91 - Unspecified atrial fibrillation Status: Acute Assessment and Plan: Chronic atrial fibrillation managed with rate control and anticoagulation strategy on 50mg ToprolXL as outpatient. Has been tachycardic for several days at home, presented to the emergency department last night. Heart rate was in the 140's at presentation. Initially given Diltiazem bolus and placed on diltiazem drip. Amiodarone was added because there was no improvement of HR on Diltiazem. Diltiazem and amiodarone have been discontinued. Increase metoprolol to 37.5mg q8h Continue a/c with apixaban (2) Acute on chronic diastolic congestive heart failure: Code(s): I50.33 - Acute on chronic diastolic (congestive) heart failure Status: Acute Assessment and Plan: Mild CHF, probably secondary to tachycardia. She has known diastolic dysfunction Looks euvolemic on exam. Will shift to p.o. furosemide Subjective Date/time seen: 03/14/23 10:07 Cardiology follow up for atrial fibrillation, CHF Rate not well controlled off of the amiodarone drip. Has a headache this morning but is feeling okay otherwise. Review of Systems Review of Systems: All systems reviewed & are unremarkable except as noted in HPI and below Exam Const: General: comfortable, no acute distress, alert and awake Orientation/consciousness: patient oriented x3 HENMT: Head: normal to inspection Eyes: General: appearance normal, both eyes and all related structures Pupils: Equal, round and reactive pupils present Neck: Neck: normal visual inspection, supple and no JVD Carotids: normal carotid upstroke Resp: Effort & Inspection: normal respiratory effort Auscultation: not clear to auscultation bilaterally and crackles Cardio: Rate: regular rate and tachycardic Rhythm: abnormal rhythm irregularly irregular Heart sounds: S1 normal heart sound present, S2 normal heart sound present and no murmurs GI: Auscultation: normal bowel sounds Skin: General skin exam: normal color Neuro: General: patient oriented x3 Cranial nerves: Yes Equal, round and reactive pupils present Extrem: General: normal to inspection Psych: Appearance: grossly normal Mental Status: mental status grossly normal Objective Data Vital Signs Vital Signs: Vital Signs - 24 hr 03/13/23 16:00 03/13/23 16:00 03/13/23 16:00 Temperature 36.2 C L Pulse Rate 90 88 Respiratory Rate 18 Blood Pressure 130/81 Pulse Oximetry 100 Oxygen Delivery Room Air Oxygen Flow Rate Fraction of Inspired Oxygen 03/13/23 18:00 03/13/23 20:23 03/13/23 20:25 Temperature Pulse Rate 98 104 H 93 Respiratory Rate Blood Pressure 145/85 H Pulse Oximetry Oxygen Delivery Oxygen Flow Rate Fraction of Inspired Oxygen 03/13/23 20:00 03/13/23 23:18 03/13/23 20:00 Temperature 36.4 C 36.4 C Pulse Rate 110 H 105 H 99 Respiratory Rate 20 20 Blood Pressure 124/74 132/87 Pulse Oximetry 100 97 Oxygen Delivery Oxygen Flow Rate Fraction of Inspired Oxygen 03/13/23 22:00 03/13/23 20:00 03/14/23 00:00 Temperature Pulse Rate 79 99 105 H Respiratory Rate Blood Pressure Pulse Oximetry 95 97 Oxygen Delivery Nasal Cannula Nasal Cannula Oxygen Flow Rate 2 2 Fraction of Inspired Oxygen 03/14/23 00:00 03/14/23 02:00 03/14/23 04:00 Temperature 36.6 C Pulse Rate 105 H 89 89 Respiratory Rate 96 H Blood Pressure 137/89 Pulse Oximetry 96 Oxygen Delivery Oxygen Flow Rate Fraction of Inspired Oxygen 03/14/23 04:00 03/14/23 06:00 03/14/23 04:00 Temperature Pulse Rate 96 109 H 105 H Respiratory Rate Blood Pressure Pulse Oximetry 96 Oxygen Delivery Nasal Cannula Oxygen Flow Rate 2 Fraction of Inspired Oxygen 03/14/23 09:13 03/14/23 09:11 03/14/23 08:00 Temperature 36
[2023-03-14] MEDS: FUROSEMIDE 40 MG TABLET PO (16:07)
[2023-03-14] MEDS: PRAVASTATIN SODIUM 20 MG TABLET 80 MG PO (20:35)
[2023-03-15] VITALS (10 sets, daily range): BP systolic 119–132; BP diastolic 63–90; PULSE 58–137; RESP 16–18; TEMP 36.1–36.5; O2SAT 96–100
[2023-03-15] MEDS: LEVOTHYROXINE SODIUM 112 MCG TABLET PO (06:33)
[2023-03-15] MEDS: METOPROLOL TARTRATE TAB 25 MG, METOPROLOL TARTRATE TAB 12.5 MG 37.5 MG PO (06:33)
[2023-03-15] MEDS: CHOLECALCIFEROL 1,000 UNITS TABLET 2000 UNITS PO (08:11)
[2023-03-15] MEDS: POTASSIUM CHLORIDE 20 MEQ TABLET.ER PO (08:11)
[2023-03-15] MEDS: FUROSEMIDE 40 MG TABLET PO (08:11)
[2023-03-15] MEDS: CYANOCOBALAMIN 1,000 MCG TABLET 1000 MCG PO (08:11)
[2023-03-15] MEDS: HYDROXYCHLOROQUINE SULFATE 200 MG TABLET PO (08:12)
[2023-03-15] MEDS: predniSONE 2.5 MG TABLET PO (08:12)
[2023-03-15] MEDS: DULoxetine HCL 20 MG CAPSULE.DR BY MOUTH (08:12)
[2023-03-15] MEDS: APIXABAN 5 MG TABLET PO (08:12)
[2023-03-15] MEDS: guaiFENesin/CODEINE (*CRX) 200/20 MG 10 ML SYRUP PO (08:13)
--- NOTE | 2023-03-15 08:34 | PM.PNCARD ---
Progress Note: A&P Assessment and Plan (1) Atrial fibrillation with rapid ventricular response: Code(s): I48.91 - Unspecified atrial fibrillation Status: Acute Plan 72-year-old lady with chronic atrial fibrillation. Heart rate is under relatively good control with higher dose of metoprolol. I am going to change the formulation to metoprolol succinate 150 mg per day for her convenience. She otherwise appears to be stable for discharge. Patient states that she may not be comfortable getting discharged today and may want to stay in the hospital until tomorrow. Obed Sands MD [facility] Subjective Date/time seen: Date of service: 03/15/23 08:34 Interval history: Follow-up visit in this 72-year-old woman with: Chronic atrial fibrillation with asymptomatic but rapid ventricular response admitted to the hospital to provide better heart rate control. Her metoprolol dosage has been advanced. Telemetry now shows heart rate in the range of 90-110. This appears to be acceptable. Patient is asymptomatic this morning and offers no other complaints. Exam Const: General: comfortable and no acute distress Other: Pleasant obese lady no apparent distress HENMT: Mouth: Yes moist mucous membranes Eyes: Sclera: sclerae normal Pupils: Equal, round and reactive pupils present Neck: Neck: supple Resp: Effort & Inspection: normal respiratory effort Auscultation: clear to auscultation bilaterally Cardio: Rhythm: abnormal rhythm irregularly irregular GI: GI Palp: Yes Soft to palpation Auscultation: normal bowel sounds Skin: General skin exam: normal color Neuro: Other: Alert and oriented x3 Objective Data Vital Signs Vital Signs: Vital Signs - 24 hr 03/14/23 09:13 03/14/23 09:11 03/14/23 09:28 Temperature Pulse Rate 106 H 106 H 126 H Respiratory Rate 20 20 20 Blood Pressure Pulse Oximetry 97 Oxygen Delivery Nasal Cannula Oxygen Flow Rate 2 Fraction of Inspired Oxygen 28 03/14/23 10:49 03/14/23 12:00 03/14/23 12:00 Temperature 36.7 C Pulse Rate 126 H 76 94 Respiratory Rate 16 Blood Pressure 141/59 H Pulse Oximetry 100 Oxygen Delivery Oxygen Flow Rate Fraction of Inspired Oxygen 03/14/23 10:00 03/14/23 14:00 03/14/23 12:00 Temperature Pulse Rate 127 H 102 H Respiratory Rate Blood Pressure Pulse Oximetry 96 Oxygen Delivery Nasal Cannula Oxygen Flow Rate 2 Fraction of Inspired Oxygen 03/14/23 14:00 03/14/23 16:00 03/14/23 16:00 Temperature 36.4 C L Pulse Rate 122 H 139 H 102 H Respiratory Rate 18 Blood Pressure 154/86 H Pulse Oximetry 100 Oxygen Delivery Oxygen Flow Rate Fraction of Inspired Oxygen 03/14/23 16:00 03/14/23 18:00 03/14/23 20:00 Temperature 36.3 C L Pulse Rate 99 100 Respiratory Rate 20 Blood Pressure 128/67 Pulse Oximetry 98 98 Oxygen Delivery Nasal Cannula Oxygen Flow Rate 2 Fraction of Inspired Oxygen 03/14/23 21:24 03/14/23 23:49 03/14/23 20:00 Temperature 36.2 C L Pulse Rate 114 H 110 H Respiratory Rate 18 Blood Pressure 123/85 Pulse Oximetry 98 98 Oxygen Delivery Nasal Cannula Oxygen Flow Rate 2 Fraction of Inspired Oxygen 03/15/23 04:00 03/15/23 00:00 03/15/23 04:00 Temperature 36.1 C L Pulse Rate 58 L Respiratory Rate 16 Blood Pressure 119/63 Pulse Oximetry 99 96 96 Oxygen Delivery Nasal Cannula Nasal Cannula Oxygen Flow Rate 2 2 Fraction of Inspired Oxygen 03/15/23 06:33 03/14/23 20:00 03/14/23 22:00 Temperature Pulse Rate 105 H 104 H 124 H Respiratory Rate Blood Pressure Pulse Oximetry Oxygen Delivery Oxygen Flow Rate Fraction of Inspired Oxygen 03/15/23 00:00 03/15/23 02:00 03/15/23 04:00 Temperature Pulse Rate 115 H 123 H 110 H Respiratory Rate Blood Pressure Pulse Oximetry Oxygen Delivery Oxygen Flow Rate Fraction of Inspired Oxygen 03/15/23 06
[2023-03-15 08:48] LABS: Hematocrit 32.1 % (37.0-47.0); Hemoglobin 9.6 g/dL (12.0-15.0); Mean Corpuscular HGB Conc 29.9 g/dl (32-36); Mean Corpuscular Hemoglobin 30.6 pg (26-34); Mean Corpuscular Volume 102.2 fl (80-100); Mean Platelet Volume 9.9 fl (7.4-10.4); Platelet Count Result 240 k/mm3 (150-375); Red Blood Count 3.14 M/mm3 (4.2-5.4); Red Cell Distribution Width 13.9 % (11.5-14.5)
[2023-03-15] MEDS: CHOLESTYRAMINE LIGHT 4 GM POWD.PACK PO (09:43)
[2023-03-15 09:47] LABS: Anion Gap 2 mmol/L (8-16); Blood Urea Nitrogen 28 mg/dL (7-17); Carbon Dioxide 37 mmol/L (22-30); Chloride 98 mmol/L (98-107); Estimated CRCL calculation 46 ml/min; Estimated Glomerular Filt Rate 49; Glucose 118 mg/dL (65-110); Potassium 3.8 mmol/L (3.4-5.0); Sodium 137 mmol/L (137-145)
[2023-03-15] MEDS: METOPROLOL SUCCINATE EXT REL 100 MG TABCR PO (12:15)
[2023-03-15] MEDS: METOPROLOL SUCCINATE EXT REL 50 MG TABCR PO (12:15)
--- NOTE | 2023-03-15 12:55 | PM.DS ---
DS: Admitting Diagnosis Discharge Date March 15, 2023 Admitting Diagnosis AFib DS: Discharge Diagnosis Discharge Diagnosis (1) Atrial flutter with rapid ventricular response: Code(s): I48.92 - Unspecified atrial flutter Status: Acute Assessment and Plan: Will need follow-up with Cardiology (2) Acute on chronic diastolic congestive heart failure: Code(s): I50.33 - Acute on chronic diastolic (congestive) heart failure Status: Acute Assessment and Plan: Likely due to high-output failure given ongoing tachycardia for the last couple of weeks. Continue diuresis with close monitoring of volume status, renal function, electrolytes. (3) Chronic kidney disease, stage 3: Code(s): N18.30 - Chronic kidney disease, stage 3 unspecified Status: Acute Assessment and Plan: Creatinine is stable on review of previous labs. (4) Chronic anemia: Code(s): D64.9 - Anemia, unspecified Status: Acute Assessment and Plan: Stable on review of previous labs. (5) Chronic respiratory failure with hypoxia, on home oxygen therapy: Code(s): J96.11 - Chronic respiratory failure with hypoxia; Z99.81 - Dependence on supplemental oxygen Status: Acute Assessment and Plan: She is at her baseline oxygen requirement. (6) Essential hypertension: Code(s): I10 - Essential (primary) hypertension Status: Acute Assessment and Plan: Blood pressures were reviewed and they have been stable. Continue antihypertensives and monitor daily. (7) Chronic anticoagulation: Code(s): Z79.01 - detention (current) use of anticoagulants Status: Acute Assessment and Plan: Continue apixaban. (8) Rheumatoid arthritis: Qualifiers: Rheumatoid arthritis location: unspecified site Rheumatoid factor presence: unspecified presence Qualified Code(s): M06.9 - Rheumatoid arthritis, unspecified Code(s): M06.9 - Rheumatoid arthritis, unspecified Status: Chronic Assessment and Plan: Continue hydroxychloroquine. (9) Hypothyroidism: Code(s): E03.9 - Hypothyroidism, unspecified Status: Acute Assessment and Plan: Continue levothyroxine and check TSH. DS: Summary Hospital Course Hospital Course: Patient is 72-year-old female came with AFib RVR. Cardiac medications were adjusted she was on amiodarone drip while in the hospital. Cardiology did follow patient adjusted her home medications. She will be sent home on higher dose of beta-marni. Can be discharged feels comfortable going home currently. Time Spent with Patient Time attestation: Total time spent providing and/or coordinating discharge services: Exam Narrative: General: Well-developed, nontoxic-appearing female sitting up in bed. Weight: 109.8 kg. BMI: 44.3. HEENT: Wearing corrective lenses. PERRL, EOMI. Sclera anicteric. Oral mucosa moist. Neck: Supple. No significant JVD or lymphadenopathy. Respiratory: Respirations are nonlabored. Lung sounds are a bit diminished at the bases with faint crackles. Cardiovascular: Irregularly irregular rate and rhythm. Gastrointestinal: Abdomen is soft, nontender, and nondistended with positive bowel sounds. Skin: Warm and dry. No rash or lesions on limited exam. Extremities: No cyanosis or clubbing. She has pitting and nonpitting edema of the lower legs bilaterally. No palpable knots or cords. Neurological: Alert. Cranial nerves 2-12 are grossly intact. No gross focal deficits to casual conversation. Psychiatric: Pleasant and cooperative with normal mood and affect. Judgment and insight intact. DS: Data Data Completed and Pending Labs on day of discharge: Labs from last 24 hours 03/15/23 03/15/23 08:33 08:33 WBC 9.0 RBC 3.14 L Hgb 9.6 L Hct 32.1 L MCV 102.2 H MCH 30.6 MCHC 29.9 L RDW 13.9 Plt Count 240 MPV 9.9 Sodium 137 Potass
== END 2023-03-15 14:15 | disposition home or self-care (01) | DRG 308 ==
LOC: ANHED 16:22 → ANHIMU 19:58
PROVIDERS: Physician Assistant; Admitting Provider Family Medicine; Emergency Provider Emergency Medicine; PCP Family Medicine; Referring Provider Internal Medicine Cardiovascular Disease; Visit Provider Chiropractor
DX: I48.20 Chronic atrial fibrillation, unspecified (principal); I50.33 Acute on chronic diastolic (congestive) heart failure; J96.11 Chronic respiratory failure with hypoxia; I13.0 Hypertensive heart and chronic kidney disease with heart failure and stage 1 through stage 4 chronic kidney disease, or unspecified chronic kidney disease; Z68.41 Body mass index [BMI] 40.0-44.9, adult; I48.92 Unspecified atrial flutter; N18.30 Chronic kidney disease, stage 3 unspecified; D64.9 Anemia, unspecified; M06.9 Rheumatoid arthritis, unspecified; E03.9 Hypothyroidism, unspecified; F41.8 Other specified anxiety disorders; M16.11 Unilateral primary osteoarthritis, right hip; K57.90 Diverticulosis of intestine, part unspecified, without perforation or abscess without bleeding; E78.5 Hyperlipidemia, unspecified; E66.01 Morbid (severe) obesity due to excess calories; G47.33 Obstructive sleep apnea (adult) (pediatric); M70.61 Trochanteric bursitis, right hip; M17.11 Unilateral primary osteoarthritis, right knee; Z96.653 Presence of artificial knee joint, bilateral; Z99.81 Dependence on supplemental oxygen; Z79.01 Long term (current) use of anticoagulants; Z86.718 Personal history of other venous thrombosis and embolism; Z86.16 Personal history of COVID-19; Z86.711 Personal history of pulmonary embolism; Z90.49 Acquired absence of other specified parts of digestive tract
CPT/HCPCS: 36415; 71045; 80048; 80053; 83735; 83880; 84145; 84443; 84484; 85025; 85027; 85610; 85730; 86140; 93005; 94640; 96365; 96366; 96368; 96375; 96376; 99285; A9270; G0378; J0282; J1940

== ENCOUNTER 2023-03-22 06:17 | Inpatient (IN) | payer MEDICARE, SELFPAY ==
[2023-03-22] VITALS (30 sets, daily range): BP systolic 113–173; BP diastolic 61–115; PULSE 72–135; RESP 15–31; TEMP 36.2–36.7; O2SAT 81–100; BMI 43.1
--- NOTE | ~2023-03-22 | CT_ITS ---
Clinical Indication: Tachycardia, hypoxia CT Scan of the Chest with Contrast: Technique: Contiguous sections were acquired throughout the chest after intravenous administration of 100 cc of Omnipaque 350. Dose reduction technique was used on this scan by utilizing automated expos ure control and iterative reconstruction technique. The dose-length product (DLP) was 983.78 mGy-cm. COMPARISON: 07/22/2022 Findings: There is no evidence of any significant mediastinal, hilar or axillary lymphadenopathy. There is no f illing defect in the pulmonary arterial tree to suggest pulmonary embolus. There is no aortic aneurys m. Cardiomegaly noted. There is no evidence of pleural or pericardial effusion. There is patchy groundglass pulmonary disease throughout the lungs, with extensive peripheral interst itial thickening. Images through the upper abdomen reveal no abnormalities. Moderate compression fracture T11 and mild compression fracture of T12 are both new since 07/14/2022. There is probable minimal compression defor mity at the superior plate region of T10, also new from prior exam. Mild compression deformity of T5 is unchanged. Impression: No evidence of pulmonary embolus, aortic dissection, or aortic aneurysm. Probable mild pulmonary edema superimposed upon chronic interstitial disease. New compression fractures of T10, T11, and T12 since 07/22/2022, as detailed above. Stable minimal com pression deformity of T5. Reviewed, dictated and finalized at location M. Impression: No evidence of pulmonary embolus, aortic dissection, or aortic aneurysm. Probable mild pulmonary edema superimposed upon chronic interstitial disease. New compression fractures of T10, T11, and T12 since 07/22/2022, as detailed abo ve. Stable minimal compression deformity of T5.
--- NOTE | ~2023-03-22 | XR_ITS ---
Clinical Indication: Cough, shortness of breath AP and lateral views of the chest: Comparison: 03/12/2023 Findings: Extensive hazy and interstitial pulmonary disease is again present. No definite pleural eff usions. Cardiomediastinal silhouette is within normal limits. Bones and soft tissues are unremarkabl e. Impression: Stable extensive pulmonary disease. Correlate for pulmonary edema, pneumonia, and/or chronic intersti tial disease. Reviewed, dictated and finalized at location . Impression: Stable extensive pulmonary disease. Correlate for pulmonary edema, pneumonia, a nd/or chronic interstitial disease.
--- NOTE | 2023-03-22 06:29 | ECG_ITS ---
Measurements Intervals [place] Rate: 133 P: DC: 0 QRS: -14 QRSD: 117 T: 76 QT: 314 QTc: 467 Interpretive Statements SUPRAVENTRICULAR TACHYCARDIA LEFT VENTRICULAR HYPERTROPHY AND ST-T CHANGE [VOLTAGE CRITERIA PLUS ST/T ABNORMALITY] COMPARED TO ECG 03/12/2023 13:17:22 SUPRAVENTRICULAR TACHYCARDIA NOW PRESENT Electronically Signed On 03-22-2023 11:03:02 CDT by Ninfa Khan M.D.
[2023-03-22 06:37] LABS: Basophils Absolute Auto 0.1 K/mm3 (0.0-0.1); Basophils Percent Auto 0.7 % (0.2-1.2); Eosinophils Absolute Auto 0.4 K/mm3 (0-0.3); Eosinophils Percent Auto 3.8 % (0-4.4); Hematocrit 35.7 % (37.0-47.0); Hemoglobin 10.8 g/dL (12.0-15.0); Immature Granulocyte Absolute 0.09 K/mm3 (0.00-0.031); Immature Granulocyte Percent A 0.8 % (0-0.5); Lymphocytes Absolute Auto 1.28 K/mm3 (0.9-3.2); Lymphocytes Percent Auto 11.2 % (18.3-44.2); Mean Corpuscular HGB Conc 30.3 g/dl (32-36); Mean Corpuscular Hemoglobin 30.7 pg (26-34); Mean Corpuscular Volume 101.4 fl (80-100); Mean Platelet Volume 10.1 fl (7.4-10.4); Monocytes Absolute Auto 1.2 K/mm3 (0.1-0.6); Monocytes Percent Auto 10.7 % (2.6-8.5); Neutrophils Absolute Auto 8.3 K/mm3 (1.3-6.7); Neutrophils Percent Auto 72.8 % (45.5-73.1); Platelet Count Result 302 k/mm3 (150-375); Red Blood Count 3.52 M/mm3 (4.2-5.4); Red Cell Distribution Width 13.9 % (11.5-14.5); White Blood Count 11.5 K/mm3 (4.5-10.0)
[2023-03-22 07:23] LABS: Magnesium 1.6 mg/dL (1.6-2.3)
--- NOTE | 2023-03-22 07:25 | ED.ARRPALP ---
HPI - Arrhythmia/Palpitations General Chief Complaint: Arrhythmia/Palpitations Stated Complaint: elevated heart rate Time Seen by Provider: 03/22/23 06:21 History of Present Illness HPI narrative: This is a 72-year-old female with history of A-fib, on metoprolol, recently increased to 158, who returns emergency department complaining of persistent cough and tachycardia. Patient states her heart rate at home has ranged between 130s to 140s. She is on 4 L O2 by nasal cannula but has noted intermittent episodes of hypoxia down to the 70s. She denies any pain, coughing up blood or loss of consciousness Related Data Home Medications Medication Instructions Recorded Confirmed Calcium 600-D3 Plus (mag-zinc) 1 tablet PO BID 07/21/22 03/12/23 abatacept 125 mg/mL subcutaneous 125 mg subcut WEEKLY 07/21/22 03/12/23 syringe (Orencia) cholecalciferol (vitamin D3) 25 2,000 mcg PO DAILY 07/21/22 03/12/23 mcg (1,000 unit) capsule cyanocobalamin (vitamin B-12) 1,000 mcg PO DAILY 07/21/22 03/12/23 1,000 mcg tablet hydroxychloroquine 200 mg tablet 200 mg PO BID 07/21/22 03/12/23 acetaminophen 325 mg capsule 325 mg PO Q6H PRN Pain 12/27/22 03/12/23 (Tylenol) prednisone 2.5 mg tablet 2.5 mg PO DAILY 12/27/22 03/12/23 furosemide 20 mg tablet 60 mg PO DAILY 01/10/23 03/12/23 amoxicillin 875 mg-potassium 1 tablet PO BID 03/12/23 03/12/23 clavulanate 125 mg tablet Allergies Allergy/AdvReac Type Severity Reaction Status Date / Time No Known Allergies Allergy Verified 03/22/23 06:26 Review of Systems Review of Systems: CONSTITUTIONAL: Denies fever, chills, or sweats. EYES: Denies visual changes, redness, or discharge. ENT: Denies rhinorrhea, congestion, sore throat, or otalgia. CARDIOVASCULAR: Palpitations denies chest pain, or edema. RESPIRATORY: Cough productive of nonbloody mucus denies dyspnea. GASTROINTESTINAL: Denies abdominal pain, nausea, vomiting, or diarrhea. GENITOURINARY: Denies dysuria or hematuria. SKIN: Denies rash or itching. MUSCULOSKELETAL: Denies back pain, joint pain, or myalgia. NEUROLOGIC: Denies headache, numbness, dizziness, or weakness. PSYCHIATRIC: Denies anxiety or depression. [facility] Past Medical History Medical History Chronic anemia Chronic anticoagulation Chronic diastolic congestive heart failure Echocardiogram in 06/2022 showed an EF 50 to 55% and diastolic dysfunction. Chronic kidney disease, stage 3 Chronic respiratory failure with hypoxia, on home oxygen therapy On 2 to 4 L nasal cannula. Deep venous thrombosis (2004) Degenerative joint disease Depression with anxiety Diverticulosis Essential hypertension Hearing loss History of COVID-19 Hyperlipidemia Hypothyroidism Interstitial lung disease Morbid obesity Nonspecific interstitial pneumonitis Obstructive sleep apnea on CPAP Osteoporosis Paroxysmal atrial fibrillation Post menopausal syndrome Pre-diabetes Pulmonary embolism (2004) Rheumatoid arthritis Shingles Stress incontinence Vitamin D deficiency Surgical History Surgical History History of arthroscopy of right knee History of bilateral knee replacement History of cardiac catheterization History of section History of cholecystectomy History of parathyroidectomy History of tonsillectomy and adenoidectomy Family History Family History Mother Hypertension Father Pulmonary emboli Rheumatoid arthritis Mother , at 91 due to old age Hypertension Father , at 58 due to PE Family history of rheumatoid arthritis Family history of pulmonary embolism Grandparent Cerebrovascular accident Other Family history of malignant neoplasm Social History Social History Social History: Surrogate medical decis
[2023-03-22] MEDS: dilTIAZem HCl INJ 25 MG/5 ML VIAL 20 MG IV PUSH (07:26)
[2023-03-22 07:28] LABS: INR 1.3; Prothrombin Time 17.2 Seconds (11.1-14.7)
[2023-03-22 08:09] LABS: Alanine Aminotransferase 13 U/L (6-35); Alkaline Phosphatase 44 U/L (38-126); Anion Gap 6 mmol/L (8-16); Aspartate Amino Transferase 20 U/L (14-36); Bilirubin,Total 0.5 mg/dL (0.2-1.3); Blood Urea Nitrogen 30 mg/dL (7-17); Calcium 10.4 mg/dL (8.4-10.2); Carbon Dioxide 32 mmol/L (22-30); Chloride 102 mmol/L (98-107); Estimated CRCL calculation 42 ml/min; Estimated Glomerular Filt Rate 44; Glucose 95 mg/dL (65-110); Potassium 4.5 mmol/L (3.4-5.0); Sodium 140 mmol/L (137-145)
[2023-03-22 08:29] LABS: NT Pro B Type Natriuretic Pept 4200 pg/mL (19.9-100); Troponin I 0.022 ng/mL (0.000-0.034)
[2023-03-22] MEDS: dilTIAZem 100 MG/100 ML 100 MG/100 ML BAG IV CONT (09:10)
[2023-03-22] MEDS: dilTIAZem HCl INJ 25 MG/5 ML VIAL 10 MG IV PUSH (09:10)
[2023-03-22] MEDS: FUROSEMIDE INJ 40 MG/4 ML VIAL IV PUSH ×2 (11:02→20:35)
--- NOTE | 2023-03-22 13:05 | PM.IMHP ---
H&P: HPI History of Present Illness Date/Time: 03/22/23 12:45 Chief Complaint: Elevated heart rate. Narrative: This is a pleasant 72-year-old female with multiple medical problems including chronic respiratory failure with hypoxia on oxygen, diastolic congestive heart failure, atrial fibrillation, hypertension, hypothyroidism, rheumatoid arthritis, interstitial lung disease, hypothyroidism, history of DVT and PE, sleep apnea on PAP therapy, and other comorbidities who presented to the emergency department for evaluation of an elevated heart rate. She was just discharged from hospital on 03/15/2023 after several day admission for acute on chronic CHF exacerbation and atrial fibrillation/flutter with rapid ventricular response. She was she in consultation by Cardiology and had adjustments in her metoprolol dosing. Since discharge her heart rate continues to remain poorly controlled and she has sensations of racing heart and palpitations almost constantly. She feels tired, fatigued, and she is short of breath with minimal exertion. She has reportedly had a cardiac ablation in the past which was unsuccessful. She continues to have a cough which has been productive of greenish sputum; this is been ongoing for several weeks. She denies fever, chills, sweats, chest pain, pleuritic pain, and vomiting. She was found to be in atrial fibrillation with rapid ventricular response on arrival to the ED and she has been started on a diltiazem drip with some improvement. Patient states that she was on amiodarone previously but that was discontinued due to her interstitial lung disease. Review of Systems Review of Systems: Twelve systems were reviewed and are negative except for as per HPI. [facility] Past Medical History Medical History Chronic anemia Chronic anticoagulation Chronic diastolic congestive heart failure Echocardiogram in 06/2022 showed an EF 50 to 55% and diastolic dysfunction. Chronic kidney disease, stage 3 Chronic respiratory failure with hypoxia, on home oxygen therapy On 2 to 4 L nasal cannula. Deep venous thrombosis (2004) Degenerative joint disease Depression with anxiety Diverticulosis Essential hypertension Hearing loss History of COVID-19 Hyperlipidemia Hypothyroidism Interstitial lung disease Morbid obesity Nonspecific interstitial pneumonitis Obstructive sleep apnea on CPAP Osteoporosis Paroxysmal atrial fibrillation Post menopausal syndrome Pre-diabetes Pulmonary embolism (2004) Rheumatoid arthritis Shingles Stress incontinence Vitamin D deficiency Surgical History Surgical History History of arthroscopy of right knee History of bilateral knee replacement History of cardiac catheterization History of section History of cholecystectomy History of parathyroidectomy History of tonsillectomy and adenoidectomy Family History Family History Mother Hypertension Father Pulmonary emboli Rheumatoid arthritis Mother , at 91 due to old age Hypertension Father , at 58 due to PE Family history of rheumatoid arthritis Family history of pulmonary embolism Grandparent Cerebrovascular accident Other Family history of malignant neoplasm Social History Social History Social History: Surrogate medical decision maker: Mae Cash, daughter. Code status: Full code. Smoking status: Never smoker Second hand tobacco smoke exposure: No Alcohol intake: never Substance use: never Substance use type: does not use Lack of Transportation: No Lack of Food: Never True Current Housing: I Have Housing Concerned About Future Housing: No Difficulty Paying Gas/Electric Bills: No Difficulty Paying for Meds: No Currently Unemployed:
[2023-03-22] MEDS: POTASSIUM CHLORIDE 20 MEQ TABLET.ER PO (15:07)
[2023-03-22] MEDS: predniSONE 2.5 MG TABLET PO (15:07)
[2023-03-22] MEDS: SULFAMETHOXAZOLE/TRIMETHOPRIM 800/160 MG DS TABLET 1 TAB PO (15:08)
[2023-03-22] MEDS: DULoxetine HCL 20 MG CAPSULE.DR PO (15:08)
[2023-03-22] MEDS: CYANOCOBALAMIN 1,000 MCG TABLET 1000 MCG PO (15:08)
[2023-03-22] MEDS: METOPROLOL SUCCINATE EXT REL 50 MG TABCR 150 MG PO (15:08)
[2023-03-22] MEDS: CHOLECALCIFEROL 1,000 UNITS TABLET 2000 UNITS PO (15:08)
--- NOTE | 2023-03-22 15:21 | PM.CNCAR ---
Assessment and Plan Assessment and plan (1) Atrial fibrillation with RVR: Code(s): I48.91 - Unspecified atrial fibrillation Status: Acute Assessment and Plan: Chronic atrial fibrillation managed with rate control and a/c strategy. Will attempt better rate control with diltiazem in addition to her home metoprolol. At the time of my evaluation, she had not yet rec'd her home dose of metoprolol. She is also on diltiazem at 10mg/hr which should be continued for now. If her heart rate remains elevated after metoprolol is given, can increase diltiazem to 15mg/hr. Avoid amiodarone because of ILD. Continue a/c with Eliquis (2) Acute on chronic diastolic congestive heart failure: Code(s): I50.33 - Acute on chronic diastolic (congestive) heart failure Status: Acute Assessment and Plan: Mild pulmonary edema on chest CTA this morning. Her BNP is 4200. Agree with IV diuresis. Monitor kidney function while diuresing. History of Present Illness History of Present Illness Consult date/time: 03/22/23 15:21 Requesting physician: Juan Salmon MD Consult reason: atrial fibrillation Reason For Visit: Afib RVR/Pneumonia/CHF Narrative: Ayanna Cash is a 71-year-old female with a history of rheumatoid arthritis and associated interstitial lung disease. She also has atrial fibrillation and diastolic heart failure. Her atrial fibrillation is usually managed with rate control and anticoagulation strategy. She was admitted here last week with AF RVR and mild CHF exacerbation. Her rate was able to be managed with increased dose of metoprolol. However, patient states she never felt well after her discharge from the hospital and has become progressively dyspneic throughout the week. She has been ruled out for PE, but initial work up does suggest acute decompensated heart failure and possible pneumonia. She is also in atrial fibrillation with RVR, rate fluctuating between 100-140. She does not feel any palpitations or chest pain. Review of Systems Review of Systems: All systems reviewed & are unremarkable except as noted in HPI and below [facility] Past Medical History Medical History Chronic anemia Chronic anticoagulation Chronic diastolic congestive heart failure Echocardiogram in 06/2022 showed an EF 50 to 55% and diastolic dysfunction. Chronic kidney disease, stage 3 Chronic respiratory failure with hypoxia, on home oxygen therapy On 2 to 4 L nasal cannula. Deep venous thrombosis (2005) Degenerative joint disease Depression with anxiety Diverticulosis Essential hypertension Hearing loss History of COVID-19 Hyperlipidemia Hypothyroidism Interstitial lung disease Morbid obesity Nonspecific interstitial pneumonitis Obstructive sleep apnea on CPAP Osteoporosis Paroxysmal atrial fibrillation Post menopausal syndrome Pre-diabetes Pulmonary embolism (2005) Rheumatoid arthritis Shingles Stress incontinence Vitamin D deficiency Surgical History Surgical History History of arthroscopy of right knee History of bilateral knee replacement History of cardiac catheterization History of section History of cholecystectomy History of parathyroidectomy History of tonsillectomy and adenoidectomy Family History Family History Mother Hypertension Father Pulmonary emboli Rheumatoid arthritis Mother , at 91 due to old age Hypertension Father , at 58 due to PE Family history of rheumatoid arthritis Family history of pulmonary embolism Grandparent Cerebrovascular accident Other Family history of malignant neoplasm Social History Social History Social History: Surrogate medical decision maker: Mae Cash, daughter. Code s
[2023-03-22] MEDS: HYDROXYCHLOROQUINE SULFATE 200 MG TABLET PO (16:50)
[2023-03-22] MEDS: ACETAMINOPHEN 325 MG TABLET PO (17:17)
[2023-03-22] MEDS: traMADol HCL (*CRX) 50 MG TABLET PO (17:20)
[2023-03-22] MEDS: dilTIAZem 100 MG/100 ML 100 MG/100 ML BAG 10 MG IV CONT (20:29)
[2023-03-22] MEDS: PRAVASTATIN SODIUM 20 MG TABLET 80 MG PO (20:35)
[2023-03-22] MEDS: APIXABAN 5 MG TABLET PO (20:35)
[2023-03-23] VITALS (15 sets, daily range): BP systolic 112–135; BP diastolic 69–92; PULSE 73–102; RESP 20–22; TEMP 35.7–36.4; O2SAT 95–100
[2023-03-23 05:13] LABS: Hematocrit 31.6 % (37.0-47.0); Hemoglobin 9.5 g/dL (12.0-15.0); Mean Corpuscular HGB Conc 30.1 g/dl (32-36); Mean Corpuscular Hemoglobin 30.4 pg (26-34); Mean Corpuscular Volume 101.3 fl (80-100); Mean Platelet Volume 10.4 fl (7.4-10.4); Platelet Count Result 254 k/mm3 (150-375); Red Blood Count 3.12 M/mm3 (4.2-5.4); Red Cell Distribution Width 14.1 % (11.5-14.5)
[2023-03-23 05:15] LABS: Anion Gap 4 mmol/L (8-16); Blood Urea Nitrogen 28 mg/dL (7-17); Calcium 9.6 mg/dL (8.4-10.2); Carbon Dioxide 36 mmol/L (22-30); Chloride 97 mmol/L (98-107); Estimated CRCL calculation 39 ml/min; Estimated Glomerular Filt Rate 40; Glucose 89 mg/dL (65-110); Magnesium 1.6 mg/dL (1.6-2.3); Potassium 3.7 mmol/L (3.4-5.0); Sodium 137 mmol/L (137-145)
[2023-03-23] MEDS: dilTIAZem 100 MG/100 ML 100 MG/100 ML BAG 10 MG IV CONT (05:23)
[2023-03-23] MEDS: ACETAMINOPHEN 325 MG TABLET PO ×2 (05:56→23:12)
[2023-03-23] MEDS: traMADol HCL (*CRX) 50 MG TABLET PO ×2 (05:57→23:12)
[2023-03-23] MEDS: LEVOTHYROXINE SODIUM 112 MCG TABLET PO (05:58)
[2023-03-23] MEDS: predniSONE 2.5 MG TABLET PO (09:48)
[2023-03-23] MEDS: POTASSIUM CHLORIDE 20 MEQ TABLET.ER PO (09:48)
[2023-03-23] MEDS: DULoxetine HCL 20 MG CAPSULE.DR PO (09:48)
[2023-03-23] MEDS: DOXYCYCLINE HYCLATE 100 MG TABLET PO ×2 (09:48→23:07)
[2023-03-23] MEDS: CHOLECALCIFEROL 1,000 UNITS TABLET 2000 UNITS PO (09:48)
[2023-03-23] MEDS: CEFDINIR 300 MG CAPSULE PO ×2 (09:48→23:07)
[2023-03-23] MEDS: APIXABAN 5 MG TABLET PO ×2 (09:49→23:06)
[2023-03-23] MEDS: CYANOCOBALAMIN 1,000 MCG TABLET 1000 MCG PO (09:49)
[2023-03-23] MEDS: CHOLESTYRAMINE LIGHT 4 GM POWD.PACK PO (09:49)
[2023-03-23] MEDS: METOPROLOL SUCCINATE EXT REL 50 MG TABCR 150 MG PO (09:49)
[2023-03-23] MEDS: FUROSEMIDE INJ 40 MG/4 ML VIAL IV PUSH ×2 (09:50→23:07)
--- NOTE | 2023-03-23 10:15 | PM.IMPN ---
Progress Note: A&P Assessment and Plan (1) Atrial fibrillation with rapid ventricular response: Code(s): I48.91 - Unspecified atrial fibrillation Status: Acute Assessment and Plan: Rate controlled. Continue p.o. metoprolol. Amiodarone is to be avoided given her interstitial lung disease. (2) Acute on chronic diastolic congestive heart failure: Code(s): I50.33 - Acute on chronic diastolic (congestive) heart failure Status: Acute Assessment and Plan: Continue diuresis (3) Interstitial lung disease: Code(s): J84.9 - Interstitial pulmonary disease, unspecified Status: Acute Assessment and Plan: Continue cefdinir due to productive cough (4) Chronic anemia: Code(s): D64.9 - Anemia, unspecified Status: Acute Assessment and Plan: Stable on review of previous labs. (5) Chronic respiratory failure with hypoxia, on home oxygen therapy: Code(s): J96.11 - Chronic respiratory failure with hypoxia; Z99.81 - Dependence on supplemental oxygen Status: Acute Assessment and Plan: She is at her home oxygen requirement. (6) Chronic kidney disease, stage 3: Code(s): N18.30 - Chronic kidney disease, stage 3 unspecified Status: Acute Assessment and Plan: Creatinine is stable on review of previous labs. (7) Essential hypertension: Code(s): I10 - Essential (primary) hypertension Status: Acute Assessment and Plan: Blood pressures were reviewed and they are stable. Continue antihypertensives and monitor. (8) Hypothyroidism: Code(s): E03.9 - Hypothyroidism, unspecified Status: Acute Assessment and Plan: Continue levothyroxine and check TSH. (9) Rheumatoid arthritis: Qualifiers: Rheumatoid arthritis location: multiple sites Rheumatoid factor presence: unspecified presence Qualified Code(s): M06.9 - Rheumatoid arthritis, unspecified Code(s): M06.9 - Rheumatoid arthritis, unspecified Status: Acute Assessment and Plan: Continue low-dose prednisone and hydroxychloroquine. Subjective Date/time seen: 03/23/23 10:15 Interval history: Less short of breath. Less cough but still productive of some colored sputum. Denied chest pain or palpitations. Tolerated breakfast. No GI or complaints. Review of Systems Review of Systems: All systems reviewed & are unremarkable except as noted in HPI and below Exam Narrative: General:?Chronically ill-appearing female HEENT:??Wearing corrective lenses. Sclera anicteric.? Oral mucosa moist. Neck:??No JVD Respiratory:?Respirations are nonlabored.? Bilateral lower lobe fine inspiratory crackles Cardiovascular:?Irregularly irregular rate and rhythm. Gastrointestinal:??Abdomen is soft, nontender, and nondistended with positive bowel sounds. Skin:??Warm and dry.?Hyperpigmentation of the lower extremities. Extremities:??No cyanosis or clubbing. Mild nonpitting lower extremity edema Neurological:??Alert.? Cranial nerves 2-12 are grossly intact. Objective Data Vital Signs Vital Signs: Vital Signs - 24 hr 03/22/23 10:21 03/22/23 10:46 03/22/23 11:01 Temperature Pulse Rate 134 H 135 H 124 H Respiratory Rate 25 H 19 29 H Blood Pressure 134/85 139/90 113/89 Pulse Oximetry 100 100 100 Oxygen Delivery Oxygen Flow Rate 03/22/23 11:40 03/22/23 15:08 03/22/23 16:00 Temperature 97.1 F L 97.6 F Pulse Rate 134 H 105 H 108 H Respiratory Rate 24 H 24 H Blood Pressure 122/81 137/77 Pulse Oximetry 100 100 Oxygen Delivery Oxygen Flow Rate 03/22/23 12:00 03/22/23 12:00 03/22/23 14:00 Temperature Pulse Rate 135 H 122 H Respiratory Rate Blood Pressure Pulse Oximetry 100 Oxygen Delivery Nasal Cannula Oxygen Flow Rate 4 03/22/23 16:00 03/22/23 18:00 03/22/23 16:00 Temperature Pulse Rate 124 H 73 Respiratory Rate Blood Pressure P
[2023-03-23] MEDS: HYDROXYCHLOROQUINE SULFATE 200 MG TABLET PO ×2 (10:17→17:32)
--- NOTE | 2023-03-23 10:51 | PM.PNCARD ---
Progress Note: A&P Assessment and Plan (1) Atrial fibrillation with RVR: Code(s): I48.91 - Unspecified atrial fibrillation Status: Acute Assessment and Plan: Chronic atrial fibrillation managed with rate control. Tele shows atrial fibrillation is now rate controlled. Will stop Diltiazem drip and start oral Diltiazem. Continue Metoprolol. Continue anticoagulation. Avoid Amiodarone due to ILD. (2) Acute on chronic diastolic congestive heart failure: Code(s): I50.33 - Acute on chronic diastolic (congestive) heart failure Status: Acute Assessment and Plan: Continue with intermittent IV diuresis. Transition back to home oral Lasix dose when euvolemic. Subjective Date/time seen: 03/23/23 10:51 Interval history: Reason for visit: Atrial fibrillation with RVR. HPI: Ayanna Cash is a 71-year-old female with a history of rheumatoid arthritis and associated interstitial lung disease.? She also has atrial fibrillation and diastolic heart failure.? Her atrial fibrillation is usually managed with rate control and anticoagulation strategy.? She was admitted here last week with AF RVR and mild CHF exacerbation.? Her rate was able to be managed with increased dose of metoprolol.? However, patient states she never felt well after her discharge from the hospital and has become progressively dyspneic throughout the week.? She has been ruled out for PE, but initial work up does suggest acute decompensated heart failure and possible pneumonia.? She is also in atrial fibrillation with RVR, rate fluctuating between 100-140.? She does not feel any palpitations or chest pain.? Date of service 03/23: Feeling better this morning. Remains in atrial fibrillation, but is now rate controlled. Review of Systems Review of Systems: 8 point ROS obtained. Negative, unless stated in HPI. Exam Const: General: comfortable, no acute distress, alert and awake Orientation/consciousness: patient oriented x3 HENMT: Head: normal to inspection Eyes: General: appearance normal, both eyes and all related structures Sclera: sclerae normal Neck: Neck: normal visual inspection and supple Resp: Effort & Inspection: abnormal respiratory effort Auscultation: not clear to auscultation bilaterally, rales and wheezes Cardio: Rhythm: abnormal rhythm irregularly irregular Heart sounds: S1 normal heart sound present, S2 normal heart sound present and no murmurs Skin: General skin exam: normal color Neuro: General: patient oriented x3 Speech: normal speech Extrem: General: normal to inspection Psych: Appearance: grossly normal Mental Status: mental status grossly normal Objective Data Vital Signs Vital Signs: Vital Signs - 24 hr 03/22/23 11:01 03/22/23 11:40 03/22/23 15:08 Temperature 36.2 C L Pulse Rate 124 H 134 H 105 H Respiratory Rate 29 H 24 H Blood Pressure 113/89 122/81 Pulse Oximetry 100 100 Oxygen Delivery Oxygen Flow Rate 03/22/23 16:00 03/22/23 12:00 03/22/23 12:00 Temperature 36.4 C Pulse Rate 108 H 135 H Respiratory Rate 24 H Blood Pressure 137/77 Pulse Oximetry 100 100 Oxygen Delivery Nasal Cannula Oxygen Flow Rate 4 03/22/23 14:00 03/22/23 16:00 03/22/23 18:00 Temperature Pulse Rate 122 H 124 H 73 Respiratory Rate Blood Pressure Pulse Oximetry Oxygen Delivery Oxygen Flow Rate 03/22/23 16:00 03/22/23 20:29 03/22/23 20:00 Temperature Pulse Rate 91 91 Respiratory Rate 20 Blood Pressure 137/75 Pulse Oximetry 100 100 Oxygen Delivery Nasal Cannula Nasal Cannula Oxygen Flow Rate 4 4 03/22/23 20:00 03/23/23 00:00 03/22/23 20:00 Temperature 36.7 C 36.4 C Pulse Rate 91 79 82 Respiratory Rate 20 20 Blood Pressure 137/75 135/70 Pulse Oximetry 100 98 Oxygen Delivery Oxygen Flow Rate 03/22/23 22:00 03/23/23 00:00 03/23/23 00:00 Temperature Pulse Rate 72 79 73 Respiratory Rate 20 Blood Pressure Pulse Oxi
[2023-03-23] MEDS: PRAVASTATIN SODIUM 20 MG TABLET 80 MG PO (23:07)
[2023-03-24] VITALS (14 sets, daily range): BP systolic 110–132; BP diastolic 63–87; PULSE 64–99; RESP 14–24; TEMP 36.1–36.7; O2SAT 94–100
--- NOTE | 2023-03-24 01:42 | PC.NURSE ---
This patient, Ayanna Cash, was transferred to room [facility]02 on 03/24/23 at 0142. Personal belongings sent with patient. Report given to BILLY Lisa. Appropriate documentation sent with patient.
--- NOTE | 2023-03-24 02:18 | ADMGEN ---
This patient, Ayanna Cash, was admitted to [facility] Surg Room 322-02. Patient/family oriented to hospital policies and general routines including ID bracelet, bed and alarms, visiting hours, pain management, procedures, bathroom and other care routines, personal items, smoking policy, room service/diet, and visiting hours. Information on how to activate the Rapid Response Team has been discussed. Patient/Family are encouraged to report perceived risks to care and to ask questions if they do not understand what they are told or what they should do.
[2023-03-24 05:39] LABS: Hematocrit 31.9 % (37.0-47.0); Hemoglobin 9.4 g/dL (12.0-15.0); Mean Corpuscular HGB Conc 29.5 g/dl (32-36); Mean Corpuscular Hemoglobin 29.7 pg (26-34); Mean Corpuscular Volume 100.6 fl (80-100); Mean Platelet Volume 10.2 fl (7.4-10.4); Platelet Count Result 250 k/mm3 (150-375); Red Blood Count 3.17 M/mm3 (4.2-5.4); White Blood Count 9.7 K/mm3 (4.5-10.0)
[2023-03-24] MEDS: LEVOTHYROXINE SODIUM 112 MCG TABLET PO (06:11)
[2023-03-24 06:17] LABS: Albumin Level 3.7 g/dL (3.5-5.1); Anion Gap 4 mmol/L (8-16); Blood Urea Nitrogen 35 mg/dL (7-17); Calcium 9.5 mg/dL (8.4-10.2); Carbon Dioxide 38 mmol/L (22-30); Chloride 97 mmol/L (98-107); Estimated CRCL calculation 34 ml/min; Estimated Glomerular Filt Rate 34; Glucose 95 mg/dL (65-110); Potassium 3.8 mmol/L (3.4-5.0); Sodium 139 mmol/L (137-145)
[2023-03-24] MEDS: CEFDINIR 300 MG CAPSULE PO ×2 (08:34→20:18)
[2023-03-24] MEDS: FUROSEMIDE INJ 40 MG/4 ML VIAL IV PUSH (08:34)
[2023-03-24] MEDS: POTASSIUM CHLORIDE 20 MEQ TABLET.ER PO (08:34)
[2023-03-24] MEDS: DULoxetine HCL 20 MG CAPSULE.DR PO (08:35)
[2023-03-24] MEDS: HYDROXYCHLOROQUINE SULFATE 200 MG TABLET PO ×2 (08:35→17:00)
[2023-03-24] MEDS: METOPROLOL SUCCINATE EXT REL 50 MG TABCR 150 MG PO (08:35)
[2023-03-24] MEDS: CYANOCOBALAMIN 1,000 MCG TABLET 1000 MCG PO (08:35)
[2023-03-24] MEDS: APIXABAN 5 MG TABLET PO ×2 (08:38→20:18)
[2023-03-24] MEDS: CHOLECALCIFEROL 1,000 UNITS TABLET 2000 UNITS PO (08:38)
[2023-03-24] MEDS: predniSONE 2.5 MG TABLET PO (08:38)
[2023-03-24] MEDS: DOXYCYCLINE HYCLATE 100 MG TABLET PO ×2 (08:38→20:18)
--- NOTE | 2023-03-24 09:23 | PC.NURSE ---
At approximately 0830, I was assessing pt. She stated that she was not feeling as well today as yesterday. I asked what was different to which she replied, she felt short of breath. I checked her pulse ox which was 71%. I checked the settings of her nasal cannula supplemental oxygen: she was wearing it correctly, the gauge was reading 4L which is what she is supposed to be at. I checked the tubing to make sure it was not kinked and found that it was disconnected. The oxygen was bleeding into her cpap mask which was laying on the bedside shelf. The pt stated that they took the cpap mask off her around 0500. I quickly connected the nasal cannula tubing to the oxygen, set the gauge on 6L, and instructed pt to close her mouth and breathe in deeply through her nose. After about 1 minute of doing this her pulse ox albina to 98%. I left the oxygen at 6L for another minute and then weaned it down to 4L where pt remained at 93%.
[2023-03-24] MEDS: CHOLESTYRAMINE LIGHT 4 GM POWD.PACK PO (10:24)
--- NOTE | 2023-03-24 12:51 | PM.PNCARD ---
Progress Note: A&P Assessment and Plan (1) Atrial fibrillation with RVR: Code(s): I48.91 - Unspecified atrial fibrillation Status: Acute Assessment and Plan: Chronic atrial fibrillation managed with rate control. Diltiazem drip stopped and started oral Diltiazem. Continue Metoprolol. Continue anticoagulation. Avoid Amiodarone due to ILD. 03/24: Will increase dose of Diltiazem to optimize her rate control as she has occasional RVR. (2) Acute on chronic diastolic congestive heart failure: Code(s): I50.33 - Acute on chronic diastolic (congestive) heart failure Status: Acute Assessment and Plan: SCr 1.5 today, increased from 1.3. Stop her IV Lasix. Will plan to resume her home dose of PO Lasix starting tomorrow. Subjective Date/time seen: 03/24/23 12:51 Interval history: Reason for visit: Atrial fibrillation with RVR. HPI: Ayanna Cash is a 71-year-old female with a history of rheumatoid arthritis and associated interstitial lung disease.? She also has atrial fibrillation and diastolic heart failure.? Her atrial fibrillation is usually managed with rate control and anticoagulation strategy.? She was admitted here last week with AF RVR and mild CHF exacerbation.? Her rate was able to be managed with increased dose of metoprolol.? However, patient states she never felt well after her discharge from the hospital and has become progressively dyspneic throughout the week.? She has been ruled out for PE, but initial work up does suggest acute decompensated heart failure and possible pneumonia.? She is also in atrial fibrillation with RVR, rate fluctuating between 100-140.? She does not feel any palpitations or chest pain.? Date of service 03/23: Feeling better this morning. Remains in atrial fibrillation, but is now rate controlled. Date of service 03/24: Feeling well this morning. On her home oxygen requirements. No shortness of breath. Review of Systems Review of Systems: 8 point ROS obtained. Negative, unless stated in HPI. Exam Const: General: comfortable, no acute distress, alert and awake Orientation/consciousness: patient oriented x3 HENMT: Head: normal to inspection Eyes: General: appearance normal, both eyes and all related structures Sclera: sclerae normal Resp: Effort & Inspection: abnormal respiratory effort Auscultation: diminished lung sounds Other: On 4L of supplemental oxygen via nasal cannula Cardio: Rhythm: abnormal rhythm irregularly irregular Heart sounds: S1 normal heart sound present, S2 normal heart sound present and no murmurs Skin: General skin exam: normal color Neuro: General: patient oriented x3 Speech: normal speech Extrem: General: normal to inspection Psych: Appearance: grossly normal Mental Status: mental status grossly normal Objective Data Vital Signs Vital Signs: Vital Signs - 24 hr 03/23/23 12:56 03/23/23 16:33 03/23/23 16:00 Temperature 35.7 C L 35.8 C L Pulse Rate 76 84 91 Respiratory Rate 22 H 20 Blood Pressure 112/73 120/79 Pulse Oximetry 99 100 Oxygen Delivery Oxygen Flow Rate 03/23/23 20:00 03/23/23 23:07 03/23/23 20:00 Temperature 36.2 C L 36.3 C L Pulse Rate 102 H 102 H 102 H Respiratory Rate 20 20 20 Blood Pressure 124/92 H 125/75 Pulse Oximetry 99 100 99 Oxygen Delivery Nasal Cannula Oxygen Flow Rate 4 03/23/23 20:00 03/24/23 00:00 03/24/23 02:19 Temperature Pulse Rate 83 73 Respiratory Rate Blood Pressure Pulse Oximetry 98 Oxygen Delivery Nasal Cannula Oxygen Flow Rate 4 03/24/23 02:32 03/24/23 02:38 03/24/23 04:00 Temperature 36.1 C L Pulse Rate 85 75 72 Respiratory Rate 16 Blood Pressure 127/63 Pulse Oximetry 96 100 Oxygen Delivery Oxygen Flow Rate 03/24/23 04:00 03/24/23 08:35 03/24/23 08:00 Temperature 36.2 C L Pulse Rate 92 98 91 Respiratory Rate 18 Blood Pressure 115/71 Pulse Oximetry 94 Oxygen Delivery Oxygen Flow
[2023-03-24] MEDS: dilTIAZem HCL 60 MG TABLET PO (13:33)
--- NOTE | 2023-03-24 16:46 | PM.IMPN ---
Progress Note: A&P Assessment and Plan (1) Atrial fibrillation with rapid ventricular response: Code(s): I48.91 - Unspecified atrial fibrillation Status: Acute Assessment and Plan: Rate controlled. Continue p.o. metoprolol, p.o. diltiazem increased. Amiodarone is to be avoided given her interstitial lung disease. (2) Acute on chronic diastolic congestive heart failure: Code(s): I50.33 - Acute on chronic diastolic (congestive) heart failure Status: Acute Assessment and Plan: Continue diuresis (3) Interstitial lung disease: Code(s): J84.9 - Interstitial pulmonary disease, unspecified Status: Acute Assessment and Plan: Continue cefdinir due to productive cough (4) Chronic anemia: Code(s): D64.9 - Anemia, unspecified Status: Acute Assessment and Plan: Stable on review of previous labs. (5) Chronic respiratory failure with hypoxia, on home oxygen therapy: Code(s): J96.11 - Chronic respiratory failure with hypoxia; Z99.81 - Dependence on supplemental oxygen Status: Acute Assessment and Plan: She is at her home oxygen requirement. (6) Chronic kidney disease, stage 3: Code(s): N18.30 - Chronic kidney disease, stage 3 unspecified Status: Acute Assessment and Plan: Creatinine is stable on review of previous labs. (7) Essential hypertension: Code(s): I10 - Essential (primary) hypertension Status: Acute Assessment and Plan: Blood pressures were reviewed and they are stable. Continue antihypertensives and monitor. (8) Hypothyroidism: Code(s): E03.9 - Hypothyroidism, unspecified Status: Acute Assessment and Plan: Continue levothyroxine and check TSH. (9) Rheumatoid arthritis: Qualifiers: Rheumatoid arthritis location: multiple sites Rheumatoid factor presence: unspecified presence Qualified Code(s): M06.9 - Rheumatoid arthritis, unspecified Code(s): M06.9 - Rheumatoid arthritis, unspecified Status: Acute Assessment and Plan: Continue low-dose prednisone and hydroxychloroquine. Subjective Date/time seen: 03/24/23 16:46 Interval history: Less short of breath. Less cough but still productive of some colored sputum. Denied chest pain or palpitations. Tolerated breakfast. No GI or complaints. Review of Systems Review of Systems: All systems reviewed & are unremarkable except as noted in HPI and below Exam Narrative: General:?Chronically ill-appearing female HEENT:??Wearing corrective lenses. Sclera anicteric.? Oral mucosa moist. Neck:??No JVD Respiratory:?Respirations are nonlabored.? Bilateral lower lobe fine inspiratory crackles Cardiovascular:?Irregularly irregular rate and rhythm. Gastrointestinal:??Abdomen is soft, nontender, and nondistended with positive bowel sounds. Skin:??Warm and dry.?Hyperpigmentation of the lower extremities. Extremities:??No cyanosis or clubbing. Mild trace pitting on nonpitting lower extremity edema Neurological:??Alert.? Cranial nerves 2-12 are grossly intact. Objective Data Vital Signs Vital Signs: Vital Signs - 24 hr 03/23/23 20:00 03/23/23 23:07 03/23/23 20:00 Temperature 97.1 F L 97.4 F L Pulse Rate 102 H 102 H 102 H Respiratory Rate 20 20 20 Blood Pressure 124/92 H 125/75 Pulse Oximetry 99 100 99 Oxygen Delivery Nasal Cannula Oxygen Flow Rate 4 03/23/23 20:00 03/24/23 00:00 03/24/23 02:19 Temperature Pulse Rate 83 73 Respiratory Rate Blood Pressure Pulse Oximetry 98 Oxygen Delivery Nasal Cannula Oxygen Flow Rate 4 03/24/23 02:32 03/24/23 02:38 03/24/23 04:00 Temperature 97 F L Pulse Rate 85 75 72 Respiratory Rate 16 Blood Pressure 127/63 Pulse Oximetry 96 100 Oxygen Delivery Oxygen Flow Rate 03/24/23 04:00 03/24/23 08:35 03/24/23 08:00 Temperature 97.2 F L Pulse Rate 92 98 91 Respir
[2023-03-24] MEDS: PRAVASTATIN SODIUM 20 MG TABLET 80 MG PO (20:18)
[2023-03-25] VITALS (13 sets, daily range): BP systolic 115–138; BP diastolic 65–87; PULSE 53–93; RESP 14–18; TEMP 35.8–36.2; O2SAT 97–100
[2023-03-25] MEDS: LEVOTHYROXINE SODIUM 112 MCG TABLET PO (05:16)
[2023-03-25 06:52] LABS: Potassium 3.6 mmol/L (3.4-5.0)
[2023-03-25] MEDS: CHOLECALCIFEROL 1,000 UNITS TABLET 2000 UNITS PO (08:26)
[2023-03-25] MEDS: CYANOCOBALAMIN 1,000 MCG TABLET 1000 MCG PO (08:26)
[2023-03-25] MEDS: METOPROLOL SUCCINATE EXT REL 50 MG TABCR 150 MG PO (08:26)
[2023-03-25] MEDS: dilTIAZem HCL CD 180 MG CAP.ER.24H PO (08:26)
[2023-03-25] MEDS: FUROSEMIDE 20 MG TABLET 60 MG PO (08:27)
[2023-03-25] MEDS: HYDROXYCHLOROQUINE SULFATE 200 MG TABLET PO ×2 (08:27→17:17)
[2023-03-25] MEDS: POTASSIUM CHLORIDE 20 MEQ TABLET.ER PO (08:27)
[2023-03-25] MEDS: SULFAMETHOXAZOLE/TRIMETHOPRIM 800/160 MG DS TABLET 1 TAB PO (08:27)
[2023-03-25] MEDS: APIXABAN 5 MG TABLET PO ×2 (08:27→20:08)
[2023-03-25] MEDS: DOXYCYCLINE HYCLATE 100 MG TABLET PO ×2 (08:27→20:08)
[2023-03-25] MEDS: DULoxetine HCL 20 MG CAPSULE.DR PO (08:27)
[2023-03-25] MEDS: CEFDINIR 300 MG CAPSULE PO ×2 (08:28→20:08)
[2023-03-25] MEDS: predniSONE 2.5 MG TABLET PO (08:28)
[2023-03-25 09:05] LABS: Anion Gap 4 mmol/L (8-16); Blood Urea Nitrogen 41 mg/dL (7-17); Calcium 9.6 mg/dL (8.4-10.2); Carbon Dioxide 35 mmol/L (22-30); Chloride 98 mmol/L (98-107); Estimated CRCL calculation 37 ml/min; Estimated Glomerular Filt Rate 37; Glucose 90 mg/dL (65-110); Sodium 137 mmol/L (137-145)
[2023-03-25] MEDS: CHOLESTYRAMINE LIGHT 4 GM POWD.PACK PO (10:03)
--- NOTE | 2023-03-25 11:29 | PM.IMPN ---
Progress Note: A&P Assessment and Plan (1) Atrial fibrillation with rapid ventricular response: Code(s): I48.91 - Unspecified atrial fibrillation Status: Acute Assessment and Plan: Rate controlled. Continue p.o. metoprolol, p.o. diltiazem Amiodarone is to be avoided given her interstitial lung disease. (2) Acute on chronic diastolic congestive heart failure: Code(s): I50.33 - Acute on chronic diastolic (congestive) heart failure Status: Acute Assessment and Plan: Continue diuresis with oral Lasix (3) Interstitial lung disease: Code(s): J84.9 - Interstitial pulmonary disease, unspecified Status: Acute Assessment and Plan: Continue cefdinir due to productive cough (4) Chronic anemia: Code(s): D64.9 - Anemia, unspecified Status: Acute Assessment and Plan: Stable on review of previous labs. (5) Chronic respiratory failure with hypoxia, on home oxygen therapy: Code(s): J96.11 - Chronic respiratory failure with hypoxia; Z99.81 - Dependence on supplemental oxygen Status: Acute Assessment and Plan: She is at her home oxygen requirement. (6) Chronic kidney disease, stage 3: Code(s): N18.30 - Chronic kidney disease, stage 3 unspecified Status: Acute Assessment and Plan: Creatinine is stable on review of previous labs. (7) Essential hypertension: Code(s): I10 - Essential (primary) hypertension Status: Acute Assessment and Plan: Continue antihypertensives and monitor. (8) Hypothyroidism: Code(s): E03.9 - Hypothyroidism, unspecified Status: Acute Assessment and Plan: Continue levothyroxine (9) Rheumatoid arthritis: Qualifiers: Rheumatoid arthritis location: multiple sites Rheumatoid factor presence: unspecified presence Qualified Code(s): M06.9 - Rheumatoid arthritis, unspecified Code(s): M06.9 - Rheumatoid arthritis, unspecified Status: Acute Assessment and Plan: Continue low-dose prednisone and hydroxychloroquine. Subjective Date/time seen: 03/25/23 11:29 Interval history: Stable. No new events overnight Review of Systems Review of Systems: All systems reviewed & are unremarkable except as noted in HPI and below Exam Narrative: General:?Chronically ill-appearing female HEENT:??Wearing corrective lenses. Sclera anicteric.? Oral mucosa moist. Neck:??No JVD Respiratory:?Respirations are nonlabored.? Bilateral lower lobe fine inspiratory crackles Cardiovascular:?Irregularly irregular rate and rhythm. Gastrointestinal:??Abdomen is soft, nontender, and nondistended with positive bowel sounds. Skin:??Warm and dry.?Hyperpigmentation of the lower extremities. Extremities:??No cyanosis or clubbing. Mild trace pitting on nonpitting lower extremity edema Neurological:??Alert.? Cranial nerves 2-12 are grossly intact. Objective Data Vital Signs Vital Signs: Vital Signs - 24 hr 03/24/23 12:00 03/24/23 14:00 03/24/23 16:00 Temperature 98.1 F Pulse Rate 98 89 68 Respiratory Rate 14 Blood Pressure 132/76 Pulse Oximetry 100 Oxygen Delivery Oxygen Flow Rate 03/24/23 20:00 03/24/23 21:39 03/25/23 00:00 Temperature 97.2 F L Pulse Rate 64 96 73 Respiratory Rate 16 Blood Pressure 126/87 Pulse Oximetry 100 Oxygen Delivery Oxygen Flow Rate 03/24/23 20:00 03/25/23 04:00 03/25/23 05:46 Temperature 97.2 F L Pulse Rate 73 69 53 L Respiratory Rate 16 14 Blood Pressure 124/87 Pulse Oximetry 100 100 Oxygen Delivery CPAP Oxygen Flow Rate 4 03/25/23 08:26 03/25/23 08:00 03/25/23 10:08 Temperature Pulse Rate 77 92 Respiratory Rate Blood Pressure Pulse Oximetry 100 Oxygen Delivery Nasal Cannula Oxygen Flow Rate 4 03/25/23 08:25 Temperature Pulse Rate Respiratory Rate Blood Pressure Pulse Oximetry 98 Oxygen Delivery Nasal
--- NOTE | 2023-03-25 12:15 | PM.PNCARD ---
Progress Note: A&P Assessment and Plan (1) Atrial fibrillation with RVR: Code(s): I48.91 - Unspecified atrial fibrillation Status: Acute Assessment and Plan: Presentation ECG consistent with atrial flutter with RVR. She has a history of chronic atrial fibrillation managed with rate control. Diltiazem drip stopped and started oral Diltiazem. Continue Metoprolol. Continue anticoagulation. Avoid Amiodarone due to ILD. Heart rate much better controlled at present. Continue toprol XL 150 mg daily and Diltiazem 180 mg daily. Continue Eliquis 5 mg twice daily. Monitor for bleeding. Ambulate with caution. (2) Acute on chronic diastolic congestive heart failure: Code(s): I50.33 - Acute on chronic diastolic (congestive) heart failure Status: Acute Assessment and Plan: Renal function stable creatinine 1.4 this morning, change to oral Lasix 60 mg today. Monitor volume status, daily input and output, daily weight and renal function. Patient is nearing euvolemia but need to confirm stability on oral diuretic regimen for additional 24 hours. Lengthy discussion with regards to precipitating event for recurrent admission. Certainly decompensated heart failure related to uncontrolled atrial fibrillation possible yet it is unclear exactly why her AFib has been so difficult to manage of late. She has also been treated for possible underlying pneumonia at this time with antibiotics and is feeling better. Progression of underlying interstitial lung disease, CHF, uncontrolled AFib and or infectious contribution to varying degrees considerations. (3) Chronic respiratory failure with hypoxia, on home oxygen therapy: Code(s): J96.11 - Chronic respiratory failure with hypoxia; Z99.81 - Dependence on supplemental oxygen Status: Acute Assessment and Plan: Stable. Improving with current therapy. Continue O2 supplementation and antibiotics. She remains on prednisone. Continue management for interstitial lung disease. Follow-up with pulmonology. (4) Chronic kidney disease, stage 3: Code(s): N18.30 - Chronic kidney disease, stage 3 unspecified Status: Acute Assessment and Plan: Stable. Continue monitor closely. Check BMP in a.m.. (5) Interstitial lung disease: Code(s): J84.9 - Interstitial pulmonary disease, unspecified Status: Acute Assessment and Plan: As above. She remains on medical therapy with prednisone, hydroxychloroquine along with history of rheumatoid arthritis. O2 supplementation. Subjective Date/time seen: Date of service: 03/25/23 12:15 Follow-up for CHF, atrial fibrillation, respiratory failure Interval history: Reason for visit: Atrial fibrillation with RVR. HPI: Ayanna Cash is a 71-year-old female with a history of rheumatoid arthritis and associated interstitial lung disease.? She also has atrial fibrillation and diastolic heart failure.? Her atrial fibrillation is usually managed with rate control and anticoagulation strategy.? She was admitted here last week with AF RVR and mild CHF exacerbation.? Her rate was able to be managed with increased dose of metoprolol.? However, patient states she never felt well after her discharge from the hospital and has become progressively dyspneic throughout the week.? She has been ruled out for PE, but initial work up does suggest acute decompensated heart failure and possible pneumonia.? She is also in atrial fibrillation with RVR, rate fluctuating between 100-140.? She does not feel any palpitations or chest pain.? Date of service 03/23: Feeling better this morning. Remains in atrial fibrillation, but is now rate controlled. Date of service 03/24: Feeling well this morning. On her home oxygen requirements. No shortness of breath. Date of service 03/25/2023: Patient feeling even better this morning. Breathing feels near her baseline and she remains on home oxygen 4 L. no palpitations, chest pain. No fevers o
[2023-03-25] MEDS: traMADol HCL (*CRX) 50 MG TABLET PO (17:17)
[2023-03-25] MEDS: PRAVASTATIN SODIUM 20 MG TABLET 80 MG PO (20:08)
[2023-03-25] MEDS: TOLNAFTATE 1% POWDER 45 GM BTL 1 APPLIC TOPICAL (23:26)
[2023-03-26] VITALS (12 sets, daily range): BP systolic 104–134; BP diastolic 77–87; PULSE 66–101; RESP 16–18; TEMP 36.4–36.6; O2SAT 97–100
[2023-03-26] MEDS: LEVOTHYROXINE SODIUM 112 MCG TABLET PO (05:33)
[2023-03-26] MEDS: CHOLECALCIFEROL 1,000 UNITS TABLET 2000 UNITS PO (08:39)
[2023-03-26] MEDS: CYANOCOBALAMIN 1,000 MCG TABLET 1000 MCG PO (08:39)
[2023-03-26] MEDS: DULoxetine HCL 20 MG CAPSULE.DR PO (08:39)
[2023-03-26] MEDS: DOXYCYCLINE HYCLATE 100 MG TABLET PO ×2 (08:39→20:23)
[2023-03-26] MEDS: APIXABAN 5 MG TABLET PO ×2 (08:39→20:24)
[2023-03-26] MEDS: CEFDINIR 300 MG CAPSULE PO ×2 (08:39→20:24)
[2023-03-26] MEDS: dilTIAZem HCL CD 180 MG CAP.ER.24H PO (08:39)
[2023-03-26] MEDS: predniSONE 2.5 MG TABLET PO (08:40)
[2023-03-26] MEDS: HYDROXYCHLOROQUINE SULFATE 200 MG TABLET PO ×2 (08:40→16:39)
[2023-03-26] MEDS: POTASSIUM CHLORIDE 20 MEQ TABLET.ER PO (08:40)
[2023-03-26] MEDS: METOPROLOL SUCCINATE EXT REL 50 MG TABCR 150 MG PO (08:40)
[2023-03-26] MEDS: FUROSEMIDE 20 MG TABLET 60 MG PO (08:40)
--- NOTE | 2023-03-26 09:29 | PM.PNCARD ---
Progress Note: A&P Assessment and Plan (1) Atrial fibrillation with RVR: Code(s): I48.91 - Unspecified atrial fibrillation Status: Acute Assessment and Plan: Presentation ECG consistent with atrial flutter with RVR. She has a history of chronic atrial fibrillation managed with rate control. She is adequately rate controlled on her current regimen - Continue Toprol XL 150 mg daily and Diltiazem 180 mg daily. Continue anticoagulation. Avoid Amiodarone due to ILD. (2) Acute on chronic diastolic congestive heart failure: Code(s): I50.33 - Acute on chronic diastolic (congestive) heart failure Status: Acute Assessment and Plan: Improving. Continue furosemide 60mg p.o. daily. Monitor volume status, daily input and output, daily weight and renal function. Patient is nearing euvolemia but need to confirm stability on oral diuretic regimen for additional 24 hours. (3) Chronic respiratory failure with hypoxia, on home oxygen therapy: Code(s): J96.11 - Chronic respiratory failure with hypoxia; Z99.81 - Dependence on supplemental oxygen Status: Acute Assessment and Plan: Stable. Improving with current therapy. Continue O2 supplementation and antibiotics. She remains on prednisone. Continue management for interstitial lung disease. Follow-up with pulmonology. (4) Chronic kidney disease, stage 3: Code(s): N18.30 - Chronic kidney disease, stage 3 unspecified Status: Acute Assessment and Plan: Stable. Continue monitor closely. Check BMP in a.m.. (5) Interstitial lung disease: Code(s): J84.9 - Interstitial pulmonary disease, unspecified Status: Acute Assessment and Plan: As above. She remains on medical therapy with prednisone, hydroxychloroquine along with history of rheumatoid arthritis. O2 supplementation. Subjective Date/time seen: 03/26/23 09:29 Interval history: Reason for visit: Atrial fibrillation with RVR. HPI: Aaynna Cash is a 71-year-old female with a history of rheumatoid arthritis and associated interstitial lung disease.? She also has atrial fibrillation and diastolic heart failure.? Her atrial fibrillation is usually managed with rate control and anticoagulation strategy.? She was admitted here last week with AF RVR and mild CHF exacerbation.? Her rate was able to be managed with increased dose of metoprolol.? However, patient states she never felt well after her discharge from the hospital and has become progressively dyspneic throughout the week.? She has been ruled out for PE, but initial work up does suggest acute decompensated heart failure and possible pneumonia.? She is also in atrial fibrillation with RVR, rate fluctuating between 100-140.? She does not feel any palpitations or chest pain.? Date of service 03/23: Feeling better this morning. Remains in atrial fibrillation, but is now rate controlled. Date of service 03/24: Feeling well this morning. On her home oxygen requirements. No shortness of breath. Date of service 03/25/2023: Patient feeling even better this morning. Breathing feels near her baseline and she remains on home oxygen 4 L. no palpitations, chest pain. No fevers overnight. Ambulating with physical therapy she states better still feels fatigued. She is still fearful about going home. Edema improved stable near her baseline. She states she is urinating but not making as much as she was before. Urine output is not documented unfortunately. Oral Lasix 60 mg started back this morning. No dizziness. Coughing improved. Date of service 03/26/2023: Continues to improve. Breathing is at her baseline. Denies any palpitations or chest pain but does state that yesterday she felt something in her chest that she cannot describe. Sensation did not last long and has not returned. No other complaints. Review of Systems Review of Systems: 8 point ROS obtained. Negative, unless stated in HPI. All systems r
--- NOTE | 2023-03-26 10:52 | PM.IMPN ---
Progress Note: A&P Assessment and Plan (1) Atrial fibrillation with rapid ventricular response: Code(s): I48.91 - Unspecified atrial fibrillation Status: Acute Assessment and Plan: Rate controlled. Continue p.o. metoprolol, p.o. diltiazem Amiodarone to be avoided given her interstitial lung disease. (2) Acute on chronic diastolic congestive heart failure: Code(s): I50.33 - Acute on chronic diastolic (congestive) heart failure Status: Acute Assessment and Plan: Continue diuresis with oral Lasix (3) Interstitial lung disease: Code(s): J84.9 - Interstitial pulmonary disease, unspecified Status: Acute Assessment and Plan: Continue cefdinir and doxycycline due to productive cough Prognosis guarded. Patient at baseline oxygen requirement (4) Chronic anemia: Code(s): D64.9 - Anemia, unspecified Status: Acute Assessment and Plan: Stable on review of previous labs. (5) Chronic respiratory failure with hypoxia, on home oxygen therapy: Code(s): J96.11 - Chronic respiratory failure with hypoxia; Z99.81 - Dependence on supplemental oxygen Status: Acute Assessment and Plan: She is at her home oxygen requirement. (6) Chronic kidney disease, stage 3: Code(s): N18.30 - Chronic kidney disease, stage 3 unspecified Status: Acute Assessment and Plan: Creatinine is stable on review of previous labs. (7) Essential hypertension: Code(s): I10 - Essential (primary) hypertension Status: Acute Assessment and Plan: Continue antihypertensives and monitor. (8) Hypothyroidism: Code(s): E03.9 - Hypothyroidism, unspecified Status: Acute Assessment and Plan: Continue levothyroxine (9) Rheumatoid arthritis: Qualifiers: Rheumatoid arthritis location: multiple sites Rheumatoid factor presence: unspecified presence Qualified Code(s): M06.9 - Rheumatoid arthritis, unspecified Code(s): M06.9 - Rheumatoid arthritis, unspecified Status: Acute Assessment and Plan: Continue low-dose prednisone and hydroxychloroquine. Plan Possible discharge tomorrow Subjective Date/time seen: 03/26/23 10:52 Interval history: Patient at baseline with her respiratory status Review of Systems Review of Systems: 8 point ROS obtained. Negative, unless stated in HPI. All systems reviewed & are unremarkable except as noted in HPI and below Exam Const: General: comfortable, no acute distress, alert and awake Orientation/consciousness: patient oriented x3 HENMT: Head: normal to inspection Eyes: General: appearance normal, both eyes and all related structures Sclera: sclerae normal Pupils: Equal, round and reactive pupils present Neck: Neck: normal visual inspection, supple and no JVD Carotids: normal carotid upstroke Resp: Effort & Inspection: abnormal respiratory effort Auscultation: not clear to auscultation bilaterally, rales, wheezes and diminished lung sounds Other: On 4L of supplemental oxygen via nasal cannula Cardio: Rate: tachycardic Rhythm: abnormal rhythm irregularly irregular Heart sounds: S1 normal heart sound present, S2 normal heart sound present and no murmurs GI: Auscultation: normal bowel sounds Skin: General skin exam: normal color Neuro: General: patient oriented x3 Cranial nerves: Yes Equal, round and reactive pupils present Speech: normal speech Extrem: General: normal to inspection Psych: Appearance: grossly normal Mental Status: mental status grossly normal Objective Data Vital Signs Vital Signs: Vital Signs - 24 hr 03/25/23 12:00 03/25/23 14:00 03/25/23 16:00 Temperature 96.5 F L Pulse Rate 93 70 80 Respiratory Rate 14 Blood Pressure 115/65 Pulse Oximetry 100 Oxygen Delivery Oxygen Flow Rate 03/25/23 22:00 03/25/23 22:22 03/25/23 22:00 Temperature 97.2 F L Pulse Rate
[2023-03-26] MEDS: CHOLESTYRAMINE LIGHT 4 GM POWD.PACK PO (12:58)
[2023-03-26] MEDS: TOLNAFTATE 1% POWDER 45 GM BTL 1 APPLIC TOPICAL ×2 (12:58→20:24)
[2023-03-26] MEDS: PRAVASTATIN SODIUM 20 MG TABLET 80 MG PO (20:24)
[2023-03-26] MEDS: ACETAMINOPHEN 325 MG TABLET PO (20:27)
[2023-03-26] MEDS: traMADol HCL (*CRX) 50 MG TABLET PO (22:31)
[2023-03-27] VITALS (8 sets, daily range): BP systolic 110–116; BP diastolic 66–73; PULSE 53–83; RESP 16–18; TEMP 35.9–36.6; O2SAT 99–100
[2023-03-27] MEDS: LEVOTHYROXINE SODIUM 112 MCG TABLET PO (05:31)
[2023-03-27 06:34] LABS: Potassium 4.2 mmol/L (3.4-5.0)
[2023-03-27] MEDS: APIXABAN 5 MG TABLET PO (09:12)
[2023-03-27] MEDS: CHOLECALCIFEROL 1,000 UNITS TABLET 2000 UNITS PO (09:13)
[2023-03-27] MEDS: CEFDINIR 300 MG CAPSULE PO (09:13)
[2023-03-27] MEDS: DULoxetine HCL 20 MG CAPSULE.DR PO (09:13)
[2023-03-27] MEDS: FUROSEMIDE 20 MG TABLET 60 MG PO (09:13)
[2023-03-27] MEDS: CYANOCOBALAMIN 1,000 MCG TABLET 1000 MCG PO (09:13)
[2023-03-27] MEDS: predniSONE 2.5 MG TABLET PO (09:13)
[2023-03-27] MEDS: SULFAMETHOXAZOLE/TRIMETHOPRIM 800/160 MG DS TABLET 1 TAB PO (09:13)
[2023-03-27] MEDS: HYDROXYCHLOROQUINE SULFATE 200 MG TABLET PO (09:13)
[2023-03-27] MEDS: DOXYCYCLINE HYCLATE 100 MG TABLET PO (09:13)
[2023-03-27] MEDS: dilTIAZem HCL CD 180 MG CAP.ER.24H PO (09:14)
[2023-03-27] MEDS: POTASSIUM CHLORIDE 20 MEQ TABLET.ER PO (09:14)
[2023-03-27] MEDS: METOPROLOL SUCCINATE EXT REL 50 MG TABCR 150 MG PO (09:14)
[2023-03-27] MEDS: TOLNAFTATE 1% POWDER 45 GM BTL 1 APPLIC TOPICAL (09:15)
[2023-03-27] MEDS: CHOLESTYRAMINE LIGHT 4 GM POWD.PACK PO (12:31)
--- NOTE | 2023-03-27 13:00 | PM.PNCARD ---
Progress Note: A&P Assessment and Plan (1) Atrial fibrillation with RVR: Code(s): I48.91 - Unspecified atrial fibrillation Status: Acute Assessment and Plan: Presentation ECG consistent with atrial flutter with RVR. She has a history of chronic atrial fibrillation managed with rate control. She is adequately rate controlled on her current regimen - Continue Toprol XL 150 mg daily and Diltiazem 180 mg daily. Continue anticoagulation. Avoid Amiodarone due to ILD. -continue anticoagulation with Eliquis 5 mg twice daily. Monitor for bleeding. (2) Acute on chronic diastolic congestive heart failure: Code(s): I50.33 - Acute on chronic diastolic (congestive) heart failure Status: Acute Assessment and Plan: Patient is stable and tolerating Furosemide 60mg p.o. daily. Continue to monitor volume status, daily input and output, daily weight and renal function. Patient is nearing euvolemia. Continue sodium restriction, fall recommendations an outpatient. Patient appears stable from cardiovascular perspective for discharge per hospitalist service. Patient states she is interested in rehab after discharge. Input and output is not being recorded accurately making volume assessment very difficult. Recorded weights are suspect given significant fluctuations up and down in the absence of change in diuretics during hospitalization. If weight increased again tomorrow will increase Lasix to 80 mg daily. Check BMP in a.m.. (3) Chronic respiratory failure with hypoxia, on home oxygen therapy: Code(s): J96.11 - Chronic respiratory failure with hypoxia; Z99.81 - Dependence on supplemental oxygen Status: Acute Assessment and Plan: Stable. Continue O2 supplementation and antibiotics. Antibiotics per primary service. She remains on prednisone. Continue management for interstitial lung disease. Follow-up with pulmonology. (4) Chronic kidney disease, stage 3: Code(s): N18.30 - Chronic kidney disease, stage 3 unspecified Status: Acute Assessment and Plan: Stable. Continue monitor closely. Check BMP in a.m.. Potassium stable 4.2 this morning. (5) Interstitial lung disease: Code(s): J84.9 - Interstitial pulmonary disease, unspecified Status: Acute Assessment and Plan: As above. She remains on medical therapy with prednisone, hydroxychloroquine along with history of rheumatoid arthritis. O2 supplementation. Subjective Date/time seen: Date of service: 03/27/23 13:00 Interval history: Reason for visit: Atrial fibrillation with RVR, CHF. HPI: Ayanna Cash is a 71-year-old female with a history of rheumatoid arthritis and associated interstitial lung disease.? She also has atrial fibrillation and diastolic heart failure.? Her atrial fibrillation is usually managed with rate control and anticoagulation strategy.? She was admitted here last week with AF RVR and mild CHF exacerbation.? Her rate was able to be managed with increased dose of metoprolol.? However, patient states she never felt well after her discharge from the hospital and has become progressively dyspneic throughout the week.? She has been ruled out for PE, but initial work up does suggest acute decompensated heart failure and possible pneumonia.? She is also in atrial fibrillation with RVR, rate fluctuating between 100-140.? She does not feel any palpitations or chest pain.? 03/23: Feeling better this morning. Remains in atrial fibrillation, but is now rate controlled. 03/24: Feeling well this morning. On her home oxygen requirements. No shortness of breath. 03/25/2023: Patient feeling even better this morning. Breathing feels near her baseline and she remains on home oxygen 4 L. no palpitations, chest pain. No fevers overnight. Ambulating with physical therapy she states better still feels fatigued. She is still fearful about going home. Edema improved stable near her baseline. She states she is urin
--- NOTE | 2023-03-27 14:21 | PM.IMPN ---
Progress Note: A&P Assessment and Plan (1) Atrial fibrillation with rapid ventricular response: Code(s): I48.91 - Unspecified atrial fibrillation Status: Acute Assessment and Plan: Rate controlled. Continue p.o. metoprolol, p.o. diltiazem Amiodarone to be avoided given her interstitial lung disease. (2) Acute on chronic diastolic congestive heart failure: Code(s): I50.33 - Acute on chronic diastolic (congestive) heart failure Status: Acute Assessment and Plan: Continue diuresis with oral Lasix Rpt cxr megan am Daily weight Consider DC to am (3) Interstitial lung disease: Code(s): J84.9 - Interstitial pulmonary disease, unspecified Status: Acute Assessment and Plan: Prognosis guarded. Patient at baseline oxygen requirement (4) Chronic anemia: Code(s): D64.9 - Anemia, unspecified Status: Acute Assessment and Plan: Hb is staying at 9 (5) Chronic respiratory failure with hypoxia, on home oxygen therapy: Code(s): J96.11 - Chronic respiratory failure with hypoxia; Z99.81 - Dependence on supplemental oxygen Status: Acute Assessment and Plan: She is at her home oxygen requirement. (6) Chronic kidney disease, stage 3: Code(s): N18.30 - Chronic kidney disease, stage 3 unspecified Status: Acute Assessment and Plan: Creatinine is stable on review of previous labs. (7) Essential hypertension: Code(s): I10 - Essential (primary) hypertension Status: Acute Assessment and Plan: Continue antihypertensives and monitor. (8) Hypothyroidism: Code(s): E03.9 - Hypothyroidism, unspecified Status: Acute Assessment and Plan: Continue levothyroxine (9) Rheumatoid arthritis: Qualifiers: Rheumatoid arthritis location: multiple sites Rheumatoid factor presence: unspecified presence Qualified Code(s): M06.9 - Rheumatoid arthritis, unspecified Code(s): M06.9 - Rheumatoid arthritis, unspecified Status: Acute Assessment and Plan: Continue low-dose prednisone and hydroxychloroquine. Plan Possible discharge tomorrow Subjective Date/time seen: 03/27/23 14:21 Interval history: Patient at baseline with her respiratory status, pt seen by cardiology continue to watch her weight. Hopeful dc tomorrow to SNF with oxygen and oral lasix. Review of Systems Review of Systems: SOB back to her baseline oxygen at 4 liters Exam Narrative: General:?Chronically ill-appearing female, morbidly obese Respiratory:?Respirations are nonlabored.? Bilateral lower lobe fine inspiratory crackles Cardiovascular:?Irregularly irregular rate and rhythm. Gastrointestinal:??Abdomen is soft, nontender, and nondistended with positive bowel sounds. Skin:??Warm and dry.?Hyperpigmentation of the lower extremities. Extremities:??No cyanosis or clubbing. Mild trace pitting on nonpitting lower extremity edema Neurological:??Alert.? Cranial nerves 2-12 are grossly intact. Objective Data Vital Signs Vital Signs: Vital Signs - 24 hr 03/26/23 14:24 03/26/23 16:00 03/26/23 19:37 Temperature 36.4 C Pulse Rate 79 67 Respiratory Rate 16 Blood Pressure 133/83 Pulse Oximetry 100 100 Oxygen Delivery Nasal Cannula Oxygen Flow Rate 4 Fraction of Inspired Oxygen 36 03/26/23 22:33 03/26/23 20:00 03/27/23 04:36 Temperature 36.6 C Pulse Rate 77 63 Respiratory Rate 16 Blood Pressure 116/66 Pulse Oximetry 98 100 Oxygen Delivery CPAP CPAP Oxygen Flow Rate Fraction of Inspired Oxygen 03/26/23 20:00 03/27/23 00:00 03/27/23 04:00 Temperature Pulse Rate 66 67 53 L Respiratory Rate Blood Pressure Pulse Oximetry Oxygen Delivery Oxygen Flow Rate Fraction of Inspired Oxygen 03/27/23 03:03 03/27/23 09:14 03/27/23 09:56 Temperature Pulse Rate 59 L 83 Respiratory Rate Blood Pressure
--- NOTE | 2023-03-27 15:56 | PM.DS ---
DS: Admitting Diagnosis Discharge Date 03/27/2023 Admitting Diagnosis Elevated heart rate. DS: Discharge Diagnosis Discharge Diagnosis (1) Atrial fibrillation with rapid ventricular response: Code(s): I48.91 - Unspecified atrial fibrillation Status: Acute Assessment and Plan: Rate controlled. Continue p.o. metoprolol, p.o. diltiazem Amiodarone to be avoided given her interstitial lung disease. (2) Acute on chronic diastolic congestive heart failure: Code(s): I50.33 - Acute on chronic diastolic (congestive) heart failure Status: Acute Assessment and Plan: Continue diuresis with oral Lasix (3) Interstitial lung disease: Code(s): J84.9 - Interstitial pulmonary disease, unspecified Status: Acute Assessment and Plan: Prognosis guarded. Patient at baseline oxygen requirement (4) Chronic anemia: Code(s): D64.9 - Anemia, unspecified Status: Acute Assessment and Plan: Hb is staying at 9 (5) Chronic respiratory failure with hypoxia, on home oxygen therapy: Code(s): J96.11 - Chronic respiratory failure with hypoxia; Z99.81 - Dependence on supplemental oxygen Status: Acute Assessment and Plan: She is at her home oxygen requirement. (6) Chronic kidney disease, stage 3: Code(s): N18.30 - Chronic kidney disease, stage 3 unspecified Status: Acute Assessment and Plan: Creatinine is stable on review of previous labs. (7) Essential hypertension: Code(s): I10 - Essential (primary) hypertension Status: Acute Assessment and Plan: Continue antihypertensives and monitor. (8) Hypothyroidism: Code(s): E03.9 - Hypothyroidism, unspecified Status: Acute Assessment and Plan: Continue levothyroxine (9) Rheumatoid arthritis: Qualifiers: Rheumatoid arthritis location: multiple sites Rheumatoid factor presence: unspecified presence Qualified Code(s): M06.9 - Rheumatoid arthritis, unspecified Code(s): M06.9 - Rheumatoid arthritis, unspecified Status: Acute Assessment and Plan: Continue low-dose prednisone and hydroxychloroquine. DS: Summary Hospital Course Hospital Course: 72-year-old female with multiple medical problems including chronic respiratory failure with hypoxia on oxygen, diastolic congestive heart failure, atrial fibrillation, hypertension, hypothyroidism, rheumatoid arthritis, interstitial lung disease, hypothyroidism, history of DVT and PE, sleep apnea on PAP therapy, and other comorbidities who presented to the emergency department for evaluation of an elevated heart rate. She was just discharged from hospital on 03/15/2023 after several day admission for acute on chronic CHF exacerbation and atrial fibrillation/flutter with rapid ventricular response. She was she in consultation by Cardiology and had adjustments in her metoprolol dosing. Since discharge her heart rate continues to remain poorly controlled and she has sensations of racing heart and palpitations almost constantly. She feels tired, fatigued, and she is short of breath with minimal exertion. She has reportedly had a cardiac ablation in the past which was unsuccessful. She continues to have a cough which has been productive of greenish sputum; this is been ongoing for several weeks. She denies fever, chills, sweats, chest pain, pleuritic pain, and vomiting. She was found to be in atrial fibrillation with rapid ventricular response on arrival to the ED and she has been started on a diltiazem drip with some improvement. Patient states that she was on amiodarone previously but that was discontinued due to her interstitial lung disease. Time Spent with Patient Time attestation: Total time spent providing and/or coordinating discharge services:40 minutes on day of dc Exam Narrative: General:?Chronically ill-appearing female, morbidly obese Respiratory:?Respirations
[2023-03-27 16:16] LABS: EDCOVIDSCREEN Negative (Negative)
== END 2023-03-27 17:00 | DRG 308 ==
LOC: ANHED 06:48 → ANHIMU 10:23 → ANH3MEDSUR 03-24 05:25
PROVIDERS: Internal Medicine; Physician Assistant; Admitting Provider Family Medicine; Emergency Provider Preventive Medicine Aerospace Medicine; PCP Family Medicine; Visit Provider Family Medicine
DX: I48.20 Chronic atrial fibrillation, unspecified (principal); I50.33 Acute on chronic diastolic (congestive) heart failure; I13.0 Hypertensive heart and chronic kidney disease with heart failure and stage 1 through stage 4 chronic kidney disease, or unspecified chronic kidney disease; J84.9 Interstitial pulmonary disease, unspecified; J96.11 Chronic respiratory failure with hypoxia; Z68.41 Body mass index [BMI] 40.0-44.9, adult; I48.92 Unspecified atrial flutter; N18.30 Chronic kidney disease, stage 3 unspecified; D63.1 Anemia in chronic kidney disease; E03.9 Hypothyroidism, unspecified; E78.5 Hyperlipidemia, unspecified; E66.01 Morbid (severe) obesity due to excess calories; F41.8 Other specified anxiety disorders; G47.33 Obstructive sleep apnea (adult) (pediatric); M06.9 Rheumatoid arthritis, unspecified; M81.0 Age-related osteoporosis without current pathological fracture; E55.9 Vitamin D deficiency, unspecified; Z99.81 Dependence on supplemental oxygen; Z20.822 Contact with and (suspected) exposure to COVID-19; Z96.653 Presence of artificial knee joint, bilateral; Z90.49 Acquired absence of other specified parts of digestive tract; Z90.89 Acquired absence of other organs; Z86.718 Personal history of other venous thrombosis and embolism; Z86.711 Personal history of pulmonary embolism; Z99.89 Dependence on other enabling machines and devices; Z79.01 Long term (current) use of anticoagulants; Z86.16 Personal history of COVID-19
CPT/HCPCS: 36415; 71046; 71275; 80048; 80053; 80069; 83735; 83880; 84132; 84484; 85025; 85027; 85610; 85730; 87040; 87070; 87205; 87426; 93005; 96366; 96375; 96376; 97110; 97161; 97166; 97530; 99285; A9270; C9803; G0378; J0456; J0696; J1940; Q9967

== ENCOUNTER 2023-04-05 11:50 | Inpatient (IN) | payer MEDICARE, SELFPAY ==
[2023-04-05] VITALS (7 sets, daily range): BP systolic 127–134; BP diastolic 65–78; PULSE 62–126; RESP 16–20; TEMP 36.3–36.7; O2SAT 99–100; BMI 43.3
--- NOTE | ~2023-04-05 | XR_ITS ---
XR chest 2V 04/05/2023 12:51 Indication: Chest palpitations. Shortness of breath. Procedure: 2 view chest Comparison: Comparison to multiple prior studies sequentially, with oldest reviewed study dated 12/2021. Findings: Cardiomegaly with bilateral airspace disease, left greater than right. No significant effus ion. No pneumothorax. No acute osseous abnormality. Impression: 1: Bilateral airspace disease which may represent asymmetric edema or pneumonia. 2: Moderate cardiomegaly. Reviewed, dictated and finalized at location B. Impression: 1: Bilateral airspace disease which may represent asymmetric edema or pneumonia . 2: Moderate cardiomegaly.
--- NOTE | ~2023-04-05 | XR_ITS ---
Portable chest x-ray Comparison: 04/05/2023 Clinical History: Cough Findings: Extensive hazy and interstitial pulmonary disease is present. Cardiomediastinal silhouett e is stable. Bones and soft tissues are unremarkable. Impression: Stable extensive mixed alveolar and interstitial pulmonary disease. Correlate for pulmonary edema, in fection, and/or chronic interstitial disease. Reviewed, dictated and finalized at [facility]. Impression: Stable extensive mixed alveolar and interstitial pulmonary disease. Correlate f or pulmonary edema, infection, and/or chronic interstitial disease.
--- NOTE | ~2023-04-05 | XR_ITS ---
Portable chest x-ray Comparison: 04/08/2023 Clinical History: CHF Findings: Extensive interstitial and hazy pulmonary disease is present. No definite pleural effusion s. Cardiomediastinal silhouette is stable. Bones and soft tissues are unremarkable. Impression: Stable diffuse interstitial disease and mild haziness, predominantly in the left lung. Correlate for pulmonary edema and/or chronic interstitial disease. Reviewed, dictated and finalized at location . Impression: Stable diffuse interstitial disease and mild haziness, predominantly in the lef t lung. Correlate for pulmonary edema and/or chronic interstitial disease.
--- NOTE | 2023-04-05 11:53 | ECG_ITS ---
Measurements Intervals [place] Rate: 88 P: [place]: 0 QRS: -17 QRSD: 119 T: 23 QT: 371 QTc: 451 Interpretive Statements ATRIAL FLUTTER/TACHYCARDIA WITH CONTROLLED VENTRICULAR RESPONSE DELAYED PRECORDIAL R/S TRANSITION LEFT VENTRICULAR HYPERTROPHY AND ST-T CHANGE ABNORMAL ECG COMPARED TO ECG 03/22/2023 06:30:59 ATRIAL FLUTTER NOW PRESENT Electronically Signed On 04-05-2023 13:01:39 CDT by Michael Parker D.O.
[2023-04-05 12:14] LABS: Basophils Percent Auto 0.4 % (0.2-1.2); Eosinophils Absolute Auto 0.3 K/mm3 (0-0.3); Eosinophils Percent Auto 3.3 % (0-4.4); Hematocrit 29.5 % (37.0-47.0); Hemoglobin 8.8 g/dL (12.0-15.0); Immature Granulocyte Absolute 0.04 K/mm3 (0.00-0.031); Immature Granulocyte Percent A 0.4 % (0-0.5); Lymphocytes Absolute Auto 0.78 K/mm3 (0.9-3.2); Lymphocytes Percent Auto 7.7 % (18.3-44.2); Mean Corpuscular HGB Conc 29.8 g/dl (32-36); Mean Corpuscular Hemoglobin 30.4 pg (26-34); Mean Corpuscular Volume 102.1 fl (80-100); Monocytes Absolute Auto 0.9 K/mm3 (0.1-0.6); Monocytes Percent Auto 9.2 % (2.6-8.5); Platelet Count Result 215 k/mm3 (150-375); Red Blood Count 2.89 M/mm3 (4.2-5.4); Red Cell Distribution Width 14.4 % (11.5-14.5); White Blood Count 10.2 K/mm3 (4.5-10.0)
[2023-04-05 12:25] LABS: INR 1.4
[2023-04-05 12:26] LABS: Alanine Aminotransferase 14 U/L (6-35); Albumin Level 3.9 g/dL (3.5-5.1); Alkaline Phosphatase 43 U/L (38-126); Anion Gap 5 mmol/L (8-16); Aspartate Amino Transferase 21 U/L (14-36); Bilirubin,Total 0.5 mg/dL (0.2-1.3); Blood Urea Nitrogen 22 mg/dL (7-17); Calcium 9.6 mg/dL (8.4-10.2); Carbon Dioxide 31 mmol/L (22-30); Chloride 101 mmol/L (98-107); Estimated CRCL calculation 46 ml/min; Estimated Glomerular Filt Rate 49; Glucose 102 mg/dL (65-110); Lipase 105 U/L (23-300); Partial Thromboplastin Time 28.9 SECONDS (22.3-36.8); Potassium 4.4 mmol/L (3.4-5.0); Sodium 137 mmol/L (137-145)
[2023-04-05 12:37] LABS: Troponin I < 0.012 ng/mL (0.000-0.034)
--- NOTE | 2023-04-05 13:22 | ED.GENADULT ---
HPI - General Adult General Chief complaint: Arrhythmia/Palpitations Stated complaint: palp Time Seen by Provider: 04/05/23 12:57 History of Present Illness HPI narrative: 72-year-old female presented the emergency department for evaluation of intermittent tachycardia. Patient had a recent hospital admission for CHF and A-fib with RVR. Patient has had increased generalized weakness and was at rehab to help with deconditioning. Patient states this morning after physical therapy her heart rate jumped up to 150. Upon arrival to the ED patient's heart rate was in the 130s. Patient states she has had approximately 8 pounds of weight gain since being discharged from the hospital. Patient reports worsening lower extremity edema. Patient is currently on Lasix, 60 mg daily. Related Data Home Medications Medication Instructions Recorded Confirmed Calcium 600-D3 Plus (mag-zinc) 1 tablet PO BID 07/21/22 04/05/23 cholecalciferol (vitamin D3) 25 2,000 mcg PO DAILY 07/21/22 04/05/23 mcg (1,000 unit) capsule cyanocobalamin (vitamin B-12) 1,000 mcg PO DAILY 07/21/22 04/05/23 1,000 mcg tablet hydroxychloroquine 200 mg tablet 200 mg PO BID 07/21/22 04/05/23 acetaminophen 325 mg capsule 325 mg PO Q6H PRN Pain 12/27/22 04/05/23 (Tylenol) prednisone 2.5 mg tablet 2.5 mg PO DAILY 12/27/22 04/05/23 duloxetine 20 mg capsule,delayed 20 mg PO DAILY 03/22/23 04/05/23 release metoprolol succinate 50 mg 150 mg PO QAM 03/22/23 04/05/23 tablet,extended release 24 hr Allergies Allergy/AdvReac Type Severity Reaction Status Date / Time No Known Allergies Allergy Verified 04/05/23 17:39 Review of Systems Review of Systems: All systems reviewed & are unremarkable except as noted in HPI and below PMFSH Past Medical History Medical History Chronic anemia Chronic anticoagulation Chronic diastolic congestive heart failure Echocardiogram in 06/2022 showed an EF 50 to 55% and diastolic dysfunction. Chronic kidney disease, stage 3 Chronic respiratory failure with hypoxia, on home oxygen therapy On 2 to 4 L nasal cannula. Deep venous thrombosis (2004) Degenerative joint disease Depression with anxiety Diverticulosis Essential hypertension Hearing loss History of COVID-19 Hyperlipidemia Hypothyroidism Interstitial lung disease Morbid obesity Nonspecific interstitial pneumonitis Obstructive sleep apnea on CPAP Osteoporosis Paroxysmal atrial fibrillation Post menopausal syndrome Pre-diabetes Pulmonary embolism (2004) Rheumatoid arthritis Shingles Stress incontinence Vitamin D deficiency Surgical History Surgical History History of arthroscopy of right knee History of bilateral knee replacement History of cardiac catheterization History of section History of cholecystectomy History of parathyroidectomy History of tonsillectomy and adenoidectomy Family History Family History Mother Hypertension Father Pulmonary emboli Rheumatoid arthritis Mother , at 91 due to old age Hypertension Father , at 58 due to PE Family history of rheumatoid arthritis Family history of pulmonary embolism Grandparent Cerebrovascular accident Other Family history of malignant neoplasm Social History Social History Social History: Surrogate medical decision maker: Mae Cash, daughter. Code status: Full code. Smoking status: Never smoker Second hand tobacco smoke exposure: No Alcohol intake: never Substance use: never Substance use type: does not use Lack of Transportation: No Lack of Food: Never True Current Housing: I Have Housing Concerned About Future Housing: No Difficulty Paying Gas/Electric Bills: No Difficulty Paying for Meds: No
[2023-04-05 14:18] LABS: NT Pro B Type Natriuretic Pept 4280 pg/mL (19.9-100)
--- NOTE | 2023-04-05 15:23 | PC.NURSE ---
patient refusing lasix at this time. Patient states, I'm waiting to go to my room until I get lasix. I'm not getting it while I'm in the ER.
[2023-04-05 15:32] LABS: Troponin I 0.016 ng/mL (0.000-0.034)
--- NOTE | 2023-04-05 18:12 | PM.IMHP ---
H&P: HPI History of Present Illness Date/Time: 04/05/23 18:12 Chief Complaint: a rhythm me palpitations Narrative: this is a 72-year-old female patient who has a history of congestive heart failure a in AFib with RVR. The patient came to the emergency room from [facility]. The patient was recently discharged from here on 03/27/2023 with CHF and AFib with RVR. the patient has been having generalized weakness at the rehab facility and her heart rate jumped up to 150 during physical therapy at the rehab facility today. When the patient was in the emergency room her heart rate was in the 130s. The patient also stated that she has had greater than 8 lb of weight gain since she was discharged from the hospital. She also has increased edema to lower extremity. The patient is currently on Lasix at home. She stated she has been taking Lasix without difficulty. Her white count was slightly elevated at 10.2. H&H is 8.8 and 29.5. BUN 22 creatinine 1.1. Troponin is nonreactive x3. BNP was noted to be 4280. Chest x-ray was read as 1: Bilateral airspace disease which may represent asymmetric edema or pneumonia. 2:? Moderate cardiomegaly. the patient was given aspirin and Lasix. The patient is being admitted to observation status on the date of service 04/05/2023. Review of Systems Review of Systems: All systems reviewed & are unremarkable except as noted in HPI and below Constitutional: Constitutional: Reports as per HPI and Reports no additional constitutional complaints Eyes: Eyes: Reports as per HPI and Reports no additional eye complaints ENT: Reports system reviewed and no additional complaints, except as documented and Reports Normal hearing present Cardiovascular: Cardiovascular: Reports no additional cardiovascular complaints Respiratory: Respiratory: Reports no additional respiratory complaints and Reports no additional respiratory complaints Gastrointestinal: Gastrointestinal: Reports as per HPI and Reports no additional gastrointestinal complaints Musculoskeletal: Musculoskeletal: Reports no additional musculoskeletal complaints Integumentary/Breasts: Skin/Breast: Reports system reviewed and no additional complaints, except as docu and Reports as per HPI Neurologic: Reports system reviewed and no additional complaints, except as documented, Reports as per HPI and Reports Normal hearing present Psychiatric: Psychiatric: Reports no additional psychiatric complaints and Reports as per HPI Endocrine: Endocrine: Reports no additional endocrine complaints Hematologic/Lymphatic: Hematologic/Lymphatic: Reports no additional hematologic/lymphatic complaints Allergic/Immunologic: Allergic/Immunologic: Reports no additional allergic/immunologic complaints [facility] Past Medical History Medical History Chronic anemia Chronic anticoagulation Chronic diastolic congestive heart failure Echocardiogram in 06/2022 showed an EF 50 to 55% and diastolic dysfunction. Chronic kidney disease, stage 3 Chronic respiratory failure with hypoxia, on home oxygen therapy On 2 to 4 L nasal cannula. Deep venous thrombosis (2004) Degenerative joint disease Depression with anxiety Diverticulosis Essential hypertension Hearing loss History of COVID-19 Hyperlipidemia Hypothyroidism Interstitial lung disease Morbid obesity Nonspecific interstitial pneumonitis Obstructive sleep apnea on CPAP Osteoporosis Paroxysmal atrial fibrillation Post menopausal syndrome Pre-diabetes Pulmonary embolism (2004) Rheumatoid arthritis Shingles Stress incontinence Vitamin D deficiency Surgical History Surgical History History of arthroscopy of right knee History of bilateral knee replacement History of cardiac catheterization History of section History of cholecystectomy History of parathyroidectomy History of tonsillectomy and a
[2023-04-05 19:46] LABS: Troponin I 0.014 ng/mL (0.000-0.034)
[2023-04-05] MEDS: ACETAMINOPHEN 325 MG TABLET PO (21:00)
[2023-04-05] MEDS: APIXABAN 5 MG TABLET PO (23:24)
[2023-04-05] MEDS: METOPROLOL TARTRATE INJ 5 MG/5 ML VIAL IV PUSH (23:27)
[2023-04-06] VITALS (10 sets, daily range): BP systolic 116–148; BP diastolic 52–60; PULSE 65–122; RESP 18–22; TEMP 36.4–36.8; O2SAT 99–100
--- NOTE | 2023-04-06 | ECHO_ITS ---
Patient Info Name: Ayanna Cash Age: 72 years : 1950 Gender: Female Ht: 62 in Wt: 249 lbs BSA: 2.29 m2 HR: 132 bpm BP: 148 / 52 mmHg Heart Rhythm: Tachycardia, Atrial Fibrillation Technical Quality: Poor Exam Date: 04/06/2023 7:13 AM Exam Location: [facility] Patient Status: Inpatient Admit Date: 04/05/2023 Staff Ordering Physician: Khloe Clement NP Rail Operations Controller: Renetta Hicks RDCS Attending Provider: Kevin Camacho MD Referring Physician: Myles Reyes MD; Exam Type: CA echo dop color flow w con Study Info Indications I50.30 - Unspecified diastolic (congestive) heart failure Complete two-dimensional, color flow and Doppler transthoracic echocardiogram is performed with contrast to opacify the left ventricle and to improve the deliniation of the left ventricle endocardial borders. Contrast/Agitated Saline Contrast/Ag. Saline: Definity Amount: 4.00 ml Summary 1. Normal left ventricular size with mild concentric hypertrophy. Severe global hypokinesis, ejection fraction 27 %. However this study was done with atrial fibrillation at an uncontrolled hear rate (heart rate in the 130s) and the EF may be falsely low due to severe tachycardia. No segmental wall motion abnormalities appreciated. Diastolic function indeterminate. 2. Severe left atrial enlargement. 3. Mild right atrial enlargement. 4. There is mild to moderate mitral valve regurgitation. 5. There is mild tricuspid valve regurgitation. 6. Moderate pulmonary hypertension, estimated pulmonary arterial systolic pressure is 50 mmHg. 7. Dilated inferior vena cava with >50% collapse upon inspiration consistent with elevated right atrial pressure, 15 mmHg. 8. Atrial fibrillation with a rapid ventricular rate. 9. Consider repeating a limited echo when heart rate has improved to better determine the left ventricular function and ejection fraction. 10. Technically difficult study. Definity echo contrast used. Left Ventricle Left ventricular chamber dimension is normal. Left ventricular systolic function is normal, estimated at 25-30%. There is mildly increased left ventricular wall thickness. Left ventricular septal wall motion is normal. The left ventricular diastolic function is indeterminate. Right Ventricle Right ventricular chamber dimension is normal. Right ventricular systolic function is normal. Left Atria Left atrial chamber dimension is severely enlarged. Right Atria Right atrial chamber dimension is mildly enlarged. Aortic Valve The aortic valve is trileaflet. There is mild aortic valve sclerosis. There is no aortic valve stenosis. There is no aortic valve regurgitation. Pulmonic Valve The pulmonic valve is normal. There is no pulmonic valve stenosis. There is no pulmonic regurgitation. Mitral Valve The mitral valve has normal leaflets. There is no mitral valve stenosis. There is mild to moderate mitral valve regurgitation. The mitral valve annulus is mildly calcified. Tricuspid Valve The tricuspid valve leaflets are normal. There is no significant tricuspid valve stenosis. There is mild tricuspid valve regurgitation. Moderate pulmonary hypertension, estimated pulmonary arterial systolic pressure is 50 mmHg. Pericardium/Pleural The pericardium appears normal. There is no pericardial effusion. Inferior Vena Cava Dilated inferior vena cava with >50% collapse upon inspiration consistent with elevated right atrial pressure, 15 mmHg. Aorta The aortic root size at the sinus of Valsalva is normal. The prox
[2023-04-06 00:29] LABS: Hematocrit 27.5 % (37.0-47.0); Hemoglobin 8.3 g/dL (12.0-15.0)
[2023-04-06] MEDS: traMADol HCL (*CRX) 50 MG TABLET PO (04:05)
[2023-04-06] MEDS: FUROSEMIDE INJ 40 MG/4 ML VIAL 60 MG IV PUSH (04:38)
[2023-04-06] MEDS: ALENDRONATE SODIUM 70 MG TABLET PO (06:04)
[2023-04-06] MEDS: LEVOTHYROXINE SODIUM 112 MCG TABLET PO (06:04)
[2023-04-06 06:18] LABS: Basophils Absolute Auto 0.1 K/mm3 (0.0-0.1); Basophils Percent Auto 0.6 % (0.2-1.2); Eosinophils Absolute Auto 0.3 K/mm3 (0-0.3); Eosinophils Percent Auto 3.2 % (0-4.4); Hematocrit 31.5 % (37.0-47.0); Hemoglobin 9.2 g/dL (12.0-15.0); Immature Granulocyte Absolute 0.03 K/mm3 (0.00-0.031); Immature Granulocyte Percent A 0.3 % (0-0.5); Lymphocytes Absolute Auto 0.48 K/mm3 (0.9-3.2); Lymphocytes Percent Auto 4.6 % (18.3-44.2); Mean Corpuscular HGB Conc 29.2 g/dl (32-36); Mean Corpuscular Hemoglobin 30.5 pg (26-34); Mean Corpuscular Volume 104.3 fl (80-100); Mean Platelet Volume 10.8 fl (7.4-10.4); Monocytes Absolute Auto 0.9 K/mm3 (0.1-0.6); Monocytes Percent Auto 8.6 % (2.6-8.5); Neutrophils Absolute Auto 8.7 K/mm3 (1.3-6.7); Neutrophils Percent Auto 82.7 % (45.5-73.1); Platelet Count Result 205 k/mm3 (150-375); Red Blood Count 3.02 M/mm3 (4.2-5.4); Red Cell Distribution Width 14.4 % (11.5-14.5); White Blood Count 10.5 K/mm3 (4.5-10.0)
[2023-04-06 06:26] LABS: Alanine Aminotransferase 14 U/L (6-35); Alkaline Phosphatase 48 U/L (38-126); Anion Gap 6 mmol/L (8-16); Aspartate Amino Transferase 23 U/L (14-36); Bilirubin,Total 0.5 mg/dL (0.2-1.3); Blood Urea Nitrogen 20 mg/dL (7-17); Calcium 9.7 mg/dL (8.4-10.2); Carbon Dioxide 31 mmol/L (22-30); Chloride 99 mmol/L (98-107); Estimated CRCL calculation 47 ml/min; Estimated Glomerular Filt Rate 49; Glucose 110 mg/dL (65-110); Magnesium 1.6 mg/dL (1.6-2.3); Potassium 4.2 mmol/L (3.4-5.0); Sodium 136 mmol/L (137-145)
[2023-04-06 06:30] LABS: Lactic Acid Reflex 1.3 mmol/L (0.7-2.0)
[2023-04-06 07:12] LABS: Hypochromasia 1+ (NORMAL); Platelet Estimate Adequate (Adequate)
[2023-04-06 07:13] LABS: Poikilocytosis 1+ (NORMAL); Schistocytes None Seen (NORMAL)
--- NOTE | 2023-04-06 08:15 | PM.CNCAR ---
Assessment and Plan Assessment and plan (1) Acute on chronic diastolic congestive heart failure: Code(s): I50.33 - Acute on chronic diastolic (congestive) heart failure Status: Acute Assessment and Plan: Acute on chronic diastolic heart failure with progressive edema, weight gain and shortness of breath since discharge. It appears at furosemide 60 mg daily is not adequate to prevent fluid retention. Aggravated by AFib RVR. --agree with furosemide 40 mg IV push b.i.d. --daily BMP --not a good candidate for an SGLT- 2 inhibitor due to frequent UTIs --pursue blood pressure and heart rate control --discharge on higher dose of furosemide; OPT FU BMP (2) Atrial fibrillation with RVR: Code(s): I48.91 - Unspecified atrial fibrillation Status: Acute Assessment and Plan: Persistent longstanding a fib, with intermittent RVR. On the last admission the patient's metoprolol was increased and diltiazem added but she returns with intermittent AFib RVR which is aggravating her underlying diastolic CHF. Likely will improve somewhat with CHF management, but I will also increase the diltiazem dose. Other options would be to increase metoprolol, or add digoxin (although she does have CKD stage 3 and would be at risk for toxicity). We are trying to avoid amiodarone due to her ILD, and trying to avoid pacemaker and AV node ablation (which patient states she does not want). --increase diltiazem to: 300 mg daily --metoprolol 5 mg IV push p.r.n. for heart rate greater than 110. (3) Interstitial lung disease: Code(s): J84.9 - Interstitial pulmonary disease, unspecified Status: Acute Assessment and Plan: On home O2, 4L at rest, 6L w/ activity, followed by monument erector Dr. Denita Correa at [place]. (4) Hypertension: Code(s): I10 - Essential (primary) hypertension Status: Acute Assessment and Plan: Reasonable control. (5) Chronic kidney disease, stage 3: Code(s): N18.30 - Chronic kidney disease, stage 3 unspecified Status: Acute Assessment and Plan: CKD stage a. Pt is concerned about increasing diuretics as she has had dehydration and worsening renal fxn in the past. History of Present Illness History of Present Illness Consult date/time: 04/06/23 08:15 Reason For Visit: CHF/Rate Controlled Afib/Exertional SOB Narrative: Ayanna Cash is a 72 y.o. female whom we were asked to see at the equest of DR. Martinez for our advice and opinion regarding her AFib RVR acute on chronic diastolic CHF, in consultation. The patient has been followed by Dr. Reyes for her longstanding persistent atrial fibrillation, hypertension and chronic diastolic CHF. She was hospitalized 03/22/2023 for similar problems and her metoprolol succinate was increased from 50 mg to 150 mg daily, and Cardizem 180 mg daily was added. Her heart rate control was adequate and she was discharged on 03/27/2023 to Rehab. She has a history of interstitial lung disease as well, on home O2 and some chronic kidney disease. Since discharge she has had increasing shortness of breath, progressive edema, intermittent tachycardia and generalized weakness. Yesterday at rehab heart rate increased to 150 beats per minute and she was brought to the emergency room. She also has gained 8 lb since discharge, taking furosemide 60 mg daily. Chest x-ray suggested CHF. O2 sat in the ER was 100% on 3 L. since admission she has been given some IV furosemide and a dose of IV metoprolol. Telemetry this morning shows heart rate occasion in the 70s to 80s, but currently 100-130 beats per minute. She follows a no added salt diet, and tries to limit her fluid intake to 7236-2473 cc's day (though c/o a lot of thirst). Review of Systems Constitutional: Constitutional: Denies fever(s) Eyes: Eyes: Reports no additional eye complaints ENT: Denies epistaxis Comments: dry mouth, thirsty, doesn't like fluid restric
[2023-04-06] MEDS: dilTIAZem HCL CD 180 MG CAP.ER.24H PO (08:16)
[2023-04-06] MEDS: DULoxetine HCL 20 MG CAPSULE.DR PO (08:16)
[2023-04-06] MEDS: predniSONE 2.5 MG TABLET PO (08:16)
[2023-04-06] MEDS: POTASSIUM CHLORIDE 20 MEQ TABLET.ER PO (08:16)
[2023-04-06] MEDS: METOPROLOL SUCCINATE EXT REL 50 MG TABCR 150 MG PO (08:16)
[2023-04-06] MEDS: APIXABAN 5 MG TABLET PO ×2 (08:16→20:47)
[2023-04-06] MEDS: CHOLECALCIFEROL 1,000 UNITS TABLET 2000 UNITS PO (08:17)
[2023-04-06] MEDS: CHOLESTYRAMINE LIGHT 4 GM POWD.PACK PO (08:17)
[2023-04-06] MEDS: CYANOCOBALAMIN 1,000 MCG TABLET 1000 MCG PO (08:17)
[2023-04-06] MEDS: HYDROXYCHLOROQUINE SULFATE 200 MG TABLET PO ×2 (08:17→17:13)
[2023-04-06] MEDS: dilTIAZem HCL 60 MG TABLET PO (09:56)
--- NOTE | 2023-04-06 10:49 | PM.IMPN ---
Progress Note: A&P Assessment and Plan (1) Acute on chronic diastolic congestive heart failure: Code(s): I50.33 - Acute on chronic diastolic (congestive) heart failure Status: Acute Assessment and Plan: Continue with iv lasix 40 mg b.i.d. echo ordered Cardiology consulted. Appreciate input Monitor BMP (2) Atrial fibrillation with RVR: Code(s): I48.91 - Unspecified atrial fibrillation Status: Acute Assessment and Plan: appreciate cardiology input Patient started on oral diltiazem per Cardiology. IV metoprolol p.r.n. continue with apixaban (3) Chronic anemia: Code(s): D64.9 - Anemia, unspecified Status: Acute Assessment and Plan: monitor H&H the patient is on apixaban (4) Chronic respiratory failure with hypoxia, on home oxygen therapy: Code(s): J96.11 - Chronic respiratory failure with hypoxia; Z99.81 - Dependence on supplemental oxygen Status: Acute Assessment and Plan: continue with home O2 (5) Essential (primary) hypertension: Code(s): I10 - Essential (primary) hypertension Status: Chronic Assessment and Plan: continue with diltiazem Continue with IV Lasix Continue with metoprolol (6) Mixed hyperlipidemia: Code(s): E78.2 - Mixed hyperlipidemia Status: Acute Assessment and Plan: continue with pravastatin Subjective Date/time seen: 04/06/23 10:49 Interval history: not much change overnight Review of Systems Review of Systems: All systems reviewed & are unremarkable except as noted in HPI and below Constitutional: Constitutional: Reports as per HPI and Reports no additional constitutional complaints Eyes: Eyes: Reports as per HPI and Reports no additional eye complaints ENT: Reports system reviewed and no additional complaints, except as documented and Reports Normal hearing present Cardiovascular: Cardiovascular: Reports no additional cardiovascular complaints Respiratory: Respiratory: Reports no additional respiratory complaints and Reports no additional respiratory complaints Gastrointestinal: Gastrointestinal: Reports as per HPI and Reports no additional gastrointestinal complaints Musculoskeletal: Musculoskeletal: Reports no additional musculoskeletal complaints Integumentary/Breasts: Skin/Breast: Reports system reviewed and no additional complaints, except as docu and Reports as per HPI Neurologic: Reports system reviewed and no additional complaints, except as documented, Reports as per HPI and Reports Normal hearing present Psychiatric: Psychiatric: Reports no additional psychiatric complaints and Reports as per HPI Endocrine: Endocrine: Reports no additional endocrine complaints Hematologic/Lymphatic: Hematologic/Lymphatic: Reports no additional hematologic/lymphatic complaints Allergic/Immunologic: Allergic/Immunologic: Reports no additional allergic/immunologic complaints Exam Const: General: cooperative, healthy appearing, comfortable, no acute distress, well developed, awake, Physically active and overweight Nutritional Appearance: overweight Orientation/consciousness: oriented to person, oriented to place, oriented to time and patient oriented x3 Limitations: no limitations HENMT: Head: normal to inspection, No palpable skull fracture present, normocephalic, atraumatic and abrasion Ears: hearing grossly normal bilaterally and external ears normal Face/Nose/Sinus: Normal external nose present and Normal nares present Eyes: General: appearance normal, both eyes and all related structures Alignment and Position: alignment normal Periorbital: periorbital findings normal Eyelids: eyelids normal Sclera: sclerae normal Pupils: Equal, round and reactive pupils present EOM: EOMs intact bilaterally Neck: Neck: normal visual inspection, full ROM, no lymphadenopathy, trachea midline and supple Chest: Chest palpation & inspection: normal inspection of the chest
[2023-04-06 11:08] LABS: Hematocrit 27.2 % (37.0-47.0); Hemoglobin 8.4 g/dL (12.0-15.0)
[2023-04-06] MEDS: FUROSEMIDE INJ 40 MG/4 ML VIAL IV PUSH (17:13)
[2023-04-06] MEDS: ACETAMINOPHEN 325 MG TABLET PO (17:15)
[2023-04-06 17:53] LABS: Hematocrit 28.1 % (37.0-47.0); Hemoglobin 8.4 g/dL (12.0-15.0)
[2023-04-06] MEDS: PRAVASTATIN SODIUM 20 MG TABLET 80 MG PO (20:47)
[2023-04-07] VITALS (16 sets, daily range): BP systolic 123–148; BP diastolic 61–99; PULSE 57–97; RESP 18–22; TEMP 36.6–37.1; O2SAT 98–100
[2023-04-07] MEDS: ACETAMINOPHEN 325 MG TABLET PO (02:25)
[2023-04-07] MEDS: LEVOTHYROXINE SODIUM 112 MCG TABLET PO (05:52)
[2023-04-07 06:07] LABS: Anion Gap 2 mmol/L (8-16); Blood Urea Nitrogen 24 mg/dL (7-17); Calcium 8.8 mg/dL (8.4-10.2); Carbon Dioxide 38 mmol/L (22-30); Chloride 96 mmol/L (98-107); Estimated CRCL calculation 46 ml/min; Estimated Glomerular Filt Rate 49; Glucose 100 mg/dL (65-110); Potassium 3.6 mmol/L (3.4-5.0); Sodium 136 mmol/L (137-145)
--- NOTE | 2023-04-07 08:53 | PM.PNCARD ---
Progress Note: A&P Assessment and Plan (1) Acute on chronic diastolic congestive heart failure: Code(s): I50.33 - Acute on chronic diastolic (congestive) heart failure Status: Acute Assessment and Plan: Acute on chronic diastolic heart failure. It appears at furosemide 60 mg daily is not adequate to prevent fluid retention. Aggravated by AFib RVR. Improving. --not a good candidate for an SGLT- 2 inhibitor due to frequent UTIs --pursue blood pressure and heart rate control --discharge on higher dose of furosemide; OPT FU BMP --Cont furosemide 40 mg IV push b.i.d. --daily BMP --K+ declining; add Kcl --For thirst, will lighten up of fluid restriction to 1500 cc's; rec. lemon drops and peppermints to assuage thirst --check chest x-ray in morning (2) Atrial fibrillation with RVR: Code(s): I48.91 - Unspecified atrial fibrillation Status: Acute Assessment and Plan: Persistent longstanding a fib, with intermittent RVR. On the last admission the patient's metoprolol was increased and diltiazem added but she returns with intermittent AFib RVR which is aggravating her underlying diastolic CHF. I increased the diltiazem dose. Other options would be to increase metoprolol, or add digoxin (although she does have CKD stage 3 and would be at risk for toxicity). We are trying to avoid amiodarone due to her ILD, and trying to avoid pacemaker and AV node ablation (which patient states she does not want). --increased diltiazem to: 300 mg daily --metoprolol 5 mg IV push p.r.n. for heart rate greater than 110. --HR improved (3) Interstitial lung disease: Code(s): J84.9 - Interstitial pulmonary disease, unspecified Status: Acute Assessment and Plan: On home O2, 4L at rest, 6L w/ activity, followed by nurse rn bsn Dr. Denita Correa at [place]. (4) Hypertension: Code(s): I10 - Essential (primary) hypertension Status: Acute Assessment and Plan: Reasonable control. (5) Cough: Code(s): R05.9 - Cough, unspecified Status: Acute Assessment and Plan: Cough now productive of green sputum, wheezing, no fever, mildly elevated white count. Not on antibiotic. --add Xopenex nebulizer --check chest x-ray in morning --Further tx per hospitalists (6) Chronic kidney disease, stage 3: Code(s): N18.30 - Chronic kidney disease, stage 3 unspecified Status: Acute Assessment and Plan: CKD stage a. Pt is concerned about increasing diuretics as she has had dehydration and worsening renal fxn in the past. Subjective Date/time seen: 04/07/23 08:53 Interval history: For recurrent acute diastolic CHF and persistent AFib, now with RVR. Date of service 04/07/2023: Still short of breath, on 4 L nasal cannula, coughing and sputum has changed from clear to green. Could not sleep well because of coughing. Unhappy about 1200 cc fluid restriction. Diltiazem increased yesterday, getting IV furosemide with good diuresis. Blood pressure stable. Telemetry shows heart rate is generally 80-100 be p.m.. Review of Systems Review of Systems: Cough productive of greenish sputum, wheezing, congested, no chest pain, no abdominal complaints, edema improving, no bleeding Exam Const: General: cooperative and comfortable; No confusion Orientation/consciousness: oriented to person, patient oriented x3 and No confusion Other: Obese, pleasant, occasional productive cough, mild tachypnea, no distress HENMT: Mouth: Yes dry mucous membranes Eyes: EOM: EOMs intact bilaterally Neck: Neck: supple Resp: Effort & Inspection: abnormal respiratory effort Auscultation: rales, rhonchi and wheezes Other: Coarse rales about 1/4-1/3 up bilaterally, expiratory wheezes, scattered rhonchi, mild tachypnea Cardio: Rate: regular rate Rhythm: regular rhythm and abnormal rhythm irregularly irregular Heart sounds: no murmurs GI: Inspection: normal
[2023-04-07] MEDS: CHOLESTYRAMINE LIGHT 4 GM POWD.PACK PO (09:18)
[2023-04-07] MEDS: CHOLECALCIFEROL 1,000 UNITS TABLET 2000 UNITS PO (09:18)
[2023-04-07] MEDS: APIXABAN 5 MG TABLET PO ×2 (09:18→20:28)
[2023-04-07] MEDS: CYANOCOBALAMIN 1,000 MCG TABLET 1000 MCG PO (09:18)
[2023-04-07] MEDS: DULoxetine HCL 20 MG CAPSULE.DR PO (09:20)
[2023-04-07] MEDS: METOPROLOL SUCCINATE EXT REL 50 MG TABCR 150 MG PO (09:20)
[2023-04-07] MEDS: HYDROXYCHLOROQUINE SULFATE 200 MG TABLET PO ×2 (09:20→18:05)
[2023-04-07] MEDS: predniSONE 2.5 MG TABLET PO (09:20)
--- NOTE | 2023-04-07 11:01 | PM.IMPN ---
Progress Note: A&P Assessment and Plan (1) Acute on chronic diastolic congestive heart failure: Code(s): I50.33 - Acute on chronic diastolic (congestive) heart failure Status: Acute Assessment and Plan: Continue with iv lasix 40 mg b.i.d. will change to Lasix p.o. 40 mg b.i.d. from this evening Cardiology consulted. Appreciate input Monitor BMP Echo: ?1. Normal left ventricular size with mild concentric hypertrophy.? Severe global hypokinesis, ejection fraction 27 %.? However this study was done with atrial fibrillation at an uncontrolled hear rate (heart rate in the 130s) and the EF may be falsely low due to severe tachycardia.? No segmental wall motion abnormalities appreciated.? Diastolic function indeterminate. ? 2. Severe left atrial enlargement. ? 3. Mild right atrial enlargement. ? 4. There is mild to moderate mitral valve regurgitation. ? 5. There is mild tricuspid valve regurgitation. ? 6. Moderate pulmonary hypertension, estimated pulmonary arterial systolic pressure is 50 mmHg. ? 7. Dilated inferior vena cava with >50% collapse upon inspiration consistent with elevated right atrial pressure, 15 mmHg. ? 8. Atrial fibrillation with a rapid ventricular rate. ? 9. Consider repeating a limited echo when heart rate has improved to better determine the left ventricular function and ejection fraction. ? 10. Technically difficult study.? Definity echo contrast used. (2) Atrial fibrillation with RVR: Code(s): I48.91 - Unspecified atrial fibrillation Status: Acute Assessment and Plan: Heart rate control. appreciate cardiology input Patient started on oral diltiazem per Cardiology. IV metoprolol p.r.n. continue with apixaban (3) Chronic anemia: Code(s): D64.9 - Anemia, unspecified Status: Acute Assessment and Plan: monitor H&H the patient is on apixaban (4) Chronic respiratory failure with hypoxia, on home oxygen therapy: Code(s): J96.11 - Chronic respiratory failure with hypoxia; Z99.81 - Dependence on supplemental oxygen Status: Acute Assessment and Plan: continue with home O2 (5) Essential (primary) hypertension: Code(s): I10 - Essential (primary) hypertension Status: Chronic Assessment and Plan: continue with diltiazem Continue with IV Lasix Continue with metoprolol (6) Mixed hyperlipidemia: Code(s): E78.2 - Mixed hyperlipidemia Status: Acute Assessment and Plan: continue with pravastatin Subjective Date/time seen: 04/07/23 11:01 Interval history: Stable. Breathing about the same as yesterday Review of Systems Review of Systems: All systems reviewed & are unremarkable except as noted in HPI and below Constitutional: Constitutional: Reports as per HPI and Reports no additional constitutional complaints Eyes: Eyes: Reports as per HPI and Reports no additional eye complaints ENT: Reports system reviewed and no additional complaints, except as documented and Reports Normal hearing present Cardiovascular: Cardiovascular: Reports no additional cardiovascular complaints Respiratory: Respiratory: Reports no additional respiratory complaints and Reports no additional respiratory complaints Gastrointestinal: Gastrointestinal: Reports as per HPI and Reports no additional gastrointestinal complaints Musculoskeletal: Musculoskeletal: Reports no additional musculoskeletal complaints Integumentary/Breasts: Skin/Breast: Reports system reviewed and no additional complaints, except as docu and Reports as per HPI Neurologic: Reports system reviewed and no additional complaints, except as documented, Reports as per HPI and Reports Normal hearing present Psychiatric: Psychiatric: Reports no additional psychiatric complaints and Reports as per HPI Endocrine: Endocrine: Reports no additional endocrine complaints Hematologic/Lymphatic: Hematologic/Lymphatic: Reports no additional hematologic/lymph
[2023-04-07] MEDS: FUROSEMIDE INJ 40 MG/4 ML VIAL IV PUSH (12:15)
[2023-04-07] MEDS: LEVALBUTEROL NEB 1.25 MG/3 ML INHALATION ×2 (14:40→20:27)
[2023-04-07] MEDS: POTASSIUM CHLORIDE 20 MEQ TABLET.ER PO (18:04)
[2023-04-07] MEDS: FUROSEMIDE 40 MG TABLET PO (18:05)
[2023-04-07] MEDS: PRAVASTATIN SODIUM 20 MG TABLET 80 MG PO (20:28)
[2023-04-08] VITALS (22 sets, daily range): BP systolic 126–148; BP diastolic 62–94; PULSE 62–105; RESP 16–22; TEMP 36.2–36.7; O2SAT 93–100
[2023-04-08] MEDS: LEVALBUTEROL NEB 1.25 MG/3 ML INHALATION ×4 (02:30→21:18)
[2023-04-08] MEDS: LEVOTHYROXINE SODIUM 112 MCG TABLET PO (06:02)
[2023-04-08] MEDS: PERFLUTREN LIPID MICROSPHERES 1.5 ML VIAL DILUTED TO 10 ML TOTAL VOLUME IV PUSH (07:40)
[2023-04-08] MEDS: APIXABAN 5 MG TABLET PO ×2 (08:54→21:12)
[2023-04-08] MEDS: FUROSEMIDE 40 MG TABLET PO ×2 (08:54→17:36)
[2023-04-08] MEDS: predniSONE 2.5 MG TABLET PO (08:54)
[2023-04-08] MEDS: DULoxetine HCL 20 MG CAPSULE.DR PO (08:54)
[2023-04-08] MEDS: CHOLESTYRAMINE LIGHT 4 GM POWD.PACK PO (08:54)
[2023-04-08] MEDS: METOPROLOL SUCCINATE EXT REL 50 MG TABCR 150 MG PO (08:54)
[2023-04-08] MEDS: CHOLECALCIFEROL 1,000 UNITS TABLET 2000 UNITS PO (08:54)
[2023-04-08] MEDS: HYDROXYCHLOROQUINE SULFATE 200 MG TABLET PO ×2 (08:54→17:36)
[2023-04-08] MEDS: POTASSIUM CHLORIDE 20 MEQ TABLET.ER PO ×2 (08:54→17:36)
[2023-04-08] MEDS: CYANOCOBALAMIN 1,000 MCG TABLET 1000 MCG PO (08:54)
--- NOTE | 2023-04-08 10:09 | PM.PNCARD ---
Progress Note: A&P Assessment and Plan (1) Acute on chronic diastolic congestive heart failure: Code(s): I50.33 - Acute on chronic diastolic (congestive) heart failure Status: Acute Assessment and Plan: Acute on chronic diastolic heart failure. It appears at furosemide 60 mg daily is not adequate to prevent fluid retention. Aggravated by AFib RVR. Improving. --not a good candidate for an SGLT- 2 inhibitor due to frequent UTIs --pursue blood pressure and heart rate control --discharge on higher dose of furosemide; OPT FU BMP -- will give an additional dose of furosemide 20 mg IV x1 today. BMP pending --For thirst, will lighten up of fluid restriction to 1500 cc's; rec. lemon drops and peppermints to assuage thirst (2) Atrial fibrillation with RVR: Code(s): I48.91 - Unspecified atrial fibrillation Status: Acute Assessment and Plan: Persistent longstanding a fib, with intermittent RVR. On the last admission the patient's metoprolol was increased and diltiazem added but she returns with intermittent AFib RVR which is aggravating her underlying diastolic CHF. I increased the diltiazem dose. Other options would be to increase metoprolol, or add digoxin (although she does have CKD stage 3 and would be at risk for toxicity). We are trying to avoid amiodarone due to her ILD, and trying to avoid pacemaker and AV node ablation (which patient states she does not want). heart rate is stable and reasonable with current diltiazem and metoprolol doses (3) Interstitial lung disease: Code(s): J84.9 - Interstitial pulmonary disease, unspecified Status: Acute Assessment and Plan: On home O2, 4L at rest, 6L w/ activity, followed by metal storage worker Dr. Denita Correa at [place]. (4) Hypertension: Code(s): I10 - Essential (primary) hypertension Status: Acute Assessment and Plan: Reasonable control. (5) Cough: Code(s): R05.9 - Cough, unspecified Status: Acute Assessment and Plan: Cough now productive of green sputum, wheezing, no fever, mildly elevated white count. Not on antibiotic. --Further tx per hospitalists (6) Chronic kidney disease, stage 3: Code(s): N18.30 - Chronic kidney disease, stage 3 unspecified Status: Acute Assessment and Plan: CKD stage a. Pt is concerned about increasing diuretics as she has had dehydration and worsening renal fxn in the past. Subjective Date/time seen: 04/08/23 10:09 Interval history: For recurrent acute diastolic CHF and persistent AFib, now with RVR. Date of service 04/07/2023: Still short of breath, on 4 L nasal cannula, coughing and sputum has changed from clear to green. Could not sleep well because of coughing. Unhappy about 1200 cc fluid restriction. Diltiazem increased yesterday, getting IV furosemide with good diuresis. Blood pressure stable. Telemetry shows heart rate is generally 80-100 be p.m.. Date of service 04/08/2023: She is slightly less short of breath today. Heart rate is controlled with current regimen. Swelling is improved. No chest pain Review of Systems Review of Systems: Cough productive of greenish sputum, wheezing, congested, no chest pain, no abdominal complaints, edema improving, no bleeding Constitutional: Constitutional: Denies fever(s) Eyes: Eyes: Reports no additional eye complaints ENT: Denies epistaxis Cardiovascular: Cardiovascular: Denies chest pain, Reports pedal edema, Reports leg edema, Denies lightheadedness, Reports dyspnea and Reports dyspnea on exertion Respiratory: Respiratory: Reports chest congestion, Reports cough, Reports dyspnea, Reports dyspnea on exertion and Reports wheezing Gastrointestinal: Gastrointestinal: Denies abdominal pain and Denies hematochezia Musculoskeletal: Musculoskeletal: Reports no additional musculoskeletal complaints Integumentary/Breasts: Skin/Breast: Reports system reviewed and n
[2023-04-08 11:23] LABS: IFOB Positive Control Positive; Immunochemical Fecal Occult Bl Positive (N)
[2023-04-08] MEDS: FUROSEMIDE INJ 40 MG/4 ML VIAL 20 MG IV PUSH (12:09)
[2023-04-08] MEDS: TOLNAFTATE 1% POWDER 45 GM BTL 1 APPLIC TOPICAL ×2 (12:10→21:12)
--- NOTE | 2023-04-08 12:46 | PM.IMPN ---
Progress Note: A&P Assessment and Plan (1) Acute on chronic diastolic congestive heart failure: Code(s): I50.33 - Acute on chronic diastolic (congestive) heart failure Status: Acute Assessment and Plan: Continue Lasix p.o. 40 mg b.i.d. from this evening Cardiology consulted. Echo: ?1. Normal left ventricular size with mild concentric hypertrophy.? Severe global hypokinesis, ejection fraction 27 %.? However this study was done with atrial fibrillation at an uncontrolled hear rate (heart rate in the 130s) and the EF may be falsely low due to severe tachycardia.? No segmental wall motion abnormalities appreciated.? Diastolic function indeterminate. ? 2. Severe left atrial enlargement. ? 3. Mild right atrial enlargement. ? 4. There is mild to moderate mitral valve regurgitation. ? 5. There is mild tricuspid valve regurgitation. ? 6. Moderate pulmonary hypertension, estimated pulmonary arterial systolic pressure is 50 mmHg. ? 7. Dilated inferior vena cava with >50% collapse upon inspiration consistent with elevated right atrial pressure, 15 mmHg. ? 8. Atrial fibrillation with a rapid ventricular rate. ? 9. Consider repeating a limited echo when heart rate has improved to better determine the left ventricular function and ejection fraction. ? 10. Technically difficult study.? Definity echo contrast used. (2) Atrial fibrillation with RVR: Code(s): I48.91 - Unspecified atrial fibrillation Status: Acute Assessment and Plan: Heart rate control. appreciate cardiology input Patient started on oral diltiazem per Cardiology. oral metoprolol continue with apixaban (3) Chronic anemia: Code(s): D64.9 - Anemia, unspecified Status: Acute Assessment and Plan: monitor H&H the patient is on apixaban (4) Chronic respiratory failure with hypoxia, on home oxygen therapy: Code(s): J96.11 - Chronic respiratory failure with hypoxia; Z99.81 - Dependence on supplemental oxygen Status: Acute Assessment and Plan: continue with home O2 (5) Essential (primary) hypertension: Code(s): I10 - Essential (primary) hypertension Status: Chronic Assessment and Plan: continue with diltiazem Continue with oral Lasix Continue with oral metoprolol (6) Mixed hyperlipidemia: Code(s): E78.2 - Mixed hyperlipidemia Status: Acute Assessment and Plan: continue with pravastatin Subjective Date/time seen: 04/08/23 12:46 Interval history: Admitted for CHF, AF Pt seen by cardiology see recommendations continue to diuresis Review of Systems Review of Systems: SOB swelling Objective Data Vital Signs Vital Signs: Vital Signs - 24 hr 04/07/23 14:00 04/07/23 14:35 04/07/23 14:49 Temperature 37.1 C Pulse Rate 63 57 L 64 Respiratory Rate 22 H 18 18 Blood Pressure 130/79 Pulse Oximetry 98 Oxygen Delivery Oxygen Flow Rate 04/07/23 18:04 04/07/23 16:00 04/07/23 19:38 Temperature 36.7 C Pulse Rate 73 75 Respiratory Rate 22 H Blood Pressure 123/71 127/99 H Pulse Oximetry 100 Oxygen Delivery Oxygen Flow Rate 04/07/23 20:30 04/07/23 20:00 04/07/23 20:00 Temperature Pulse Rate 60 64 60 Respiratory Rate 18 18 Blood Pressure Pulse Oximetry 100 Oxygen Delivery Nasal Cannula Oxygen Flow Rate 4 04/08/23 00:00 04/08/23 02:31 04/08/23 04:00 Temperature Pulse Rate 75 62 79 Respiratory Rate 18 Blood Pressure Pulse Oximetry Oxygen Delivery Oxygen Flow Rate 04/08/23 07:28 04/08/23 07:30 04/08/23 07:41 Temperature Pulse Rate 85 82 Respiratory Rate 20 20 Blood Pressure Pulse Oximetry 100 Oxygen Delivery Nasal Cannula Oxygen Flow Rate 4 04/08/23 08:54 04/08/23 08:57 04/08/23 08:00 Temperature Pulse Rate 105 H 105 H 83 Respiratory Rate Blood Pressure 134/71 Pulse Oximetry Oxygen Delivery Oxygen Flow Rate
[2023-04-08] MEDS: PRAVASTATIN SODIUM 20 MG TABLET 80 MG PO (21:12)
[2023-04-09] VITALS (20 sets, daily range): BP systolic 117–131; BP diastolic 53–85; PULSE 55–87; RESP 18–22; TEMP 36.4–36.8; O2SAT 98–100
[2023-04-09] MEDS: WATER FOR IRRIGATION, STERILE 1,000 ML BOTTLE 1000 ML
[2023-04-09] MEDS: LEVOTHYROXINE SODIUM 112 MCG TABLET PO (05:37)
[2023-04-09 05:44] LABS: Blood Urea Nitrogen 27 mg/dL (7-17); Calcium 8.4 mg/dL (8.4-10.2); Carbon Dioxide > 40 mmol/L (22-30); Chloride 96 mmol/L (98-107); Estimated CRCL calculation 55 ml/min; Estimated Glomerular Filt Rate > 60; Glucose 92 mg/dL (65-110); Potassium 3.7 mmol/L (3.4-5.0); Sodium 140 mmol/L (137-145)
[2023-04-09] MEDS: LEVALBUTEROL NEB 1.25 MG/3 ML INHALATION ×3 (07:40→21:01)
[2023-04-09] MEDS: CHOLESTYRAMINE LIGHT 4 GM POWD.PACK PO (10:12)
[2023-04-09] MEDS: CHOLECALCIFEROL 1,000 UNITS TABLET 2000 UNITS PO (10:12)
[2023-04-09] MEDS: POTASSIUM CHLORIDE 20 MEQ TABLET.ER PO ×2 (10:12→17:45)
[2023-04-09] MEDS: APIXABAN 5 MG TABLET PO ×2 (10:12→20:43)
[2023-04-09] MEDS: CYANOCOBALAMIN 1,000 MCG TABLET 1000 MCG PO (10:13)
[2023-04-09] MEDS: HYDROXYCHLOROQUINE SULFATE 200 MG TABLET PO ×2 (10:13→17:45)
[2023-04-09] MEDS: DULoxetine HCL 20 MG CAPSULE.DR PO (10:13)
[2023-04-09] MEDS: predniSONE 2.5 MG TABLET PO (10:13)
[2023-04-09] MEDS: METOPROLOL SUCCINATE EXT REL 50 MG TABCR 150 MG PO (10:13)
[2023-04-09] MEDS: FUROSEMIDE 40 MG TABLET PO ×2 (10:13→17:45)
[2023-04-09] MEDS: TOLNAFTATE 1% POWDER 45 GM BTL 1 APPLIC TOPICAL ×2 (10:14→20:44)
--- NOTE | 2023-04-09 13:54 | PM.IMPN ---
Progress Note: A&P Assessment and Plan (1) Acute on chronic diastolic congestive heart failure: Code(s): I50.33 - Acute on chronic diastolic (congestive) heart failure Status: Acute Assessment and Plan: Continue Lasix p.o. 40 mg b.i.d. from this evening Cardiology consulted. Echo: ?1. Normal left ventricular size with mild concentric hypertrophy.? Severe global hypokinesis, ejection fraction 27 %.? However this study was done with atrial fibrillation at an uncontrolled hear rate (heart rate in the 130s) and the EF may be falsely low due to severe tachycardia.? No segmental wall motion abnormalities appreciated.? Diastolic function indeterminate. ? 2. Severe left atrial enlargement. ? 3. Mild right atrial enlargement. ? 4. There is mild to moderate mitral valve regurgitation. ? 5. There is mild tricuspid valve regurgitation. ? 6. Moderate pulmonary hypertension, estimated pulmonary arterial systolic pressure is 50 mmHg. ? 7. Dilated inferior vena cava with >50% collapse upon inspiration consistent with elevated right atrial pressure, 15 mmHg. ? 8. Atrial fibrillation with a rapid ventricular rate. ? 9. Consider repeating a limited echo when heart rate has improved to better determine the left ventricular function and ejection fraction. ? 10. Technically difficult study.? Definity echo contrast used. (2) Atrial fibrillation with RVR: Code(s): I48.91 - Unspecified atrial fibrillation Status: Acute Assessment and Plan: Heart rate control. appreciate cardiology input Patient started on oral diltiazem per Cardiology. oral metoprolol continue with apixaban (3) Chronic anemia: Code(s): D64.9 - Anemia, unspecified Status: Acute Assessment and Plan: monitor H&H the patient is on apixaban (4) Chronic respiratory failure with hypoxia, on home oxygen therapy: Code(s): J96.11 - Chronic respiratory failure with hypoxia; Z99.81 - Dependence on supplemental oxygen Status: Acute Assessment and Plan: continue with home O2 (5) Essential (primary) hypertension: Code(s): I10 - Essential (primary) hypertension Status: Chronic Assessment and Plan: continue with diltiazem Continue with oral Lasix Continue with oral metoprolol (6) Mixed hyperlipidemia: Code(s): E78.2 - Mixed hyperlipidemia Status: Acute Assessment and Plan: continue with pravastatin Subjective Date/time seen: 04/09/23 13:54 Interval history: Admitted for CHF, AF Pt seen by cardiology see recommendations continue to diuresis Hopeful Dc tomorrow back to [place] Pt is walking little with PT/ OT Review of Systems Review of Systems: Leg swelling and breathing improving Heart rate is better Exam Const: General: cooperative, healthy appearing, comfortable, no acute distress, well developed, awake, Physically active and overweight Nutritional Appearance: overweight Orientation/consciousness: oriented to person, oriented to place, oriented to time and patient oriented x3 Limitations: no limitations HENMT: Head: normal to inspection, No palpable skull fracture present, normocephalic, atraumatic and abrasion Ears: hearing grossly normal bilaterally and external ears normal Face/Nose/Sinus: Normal external nose present and Normal nares present Eyes: General: appearance normal, both eyes and all related structures Alignment and Position: alignment normal Periorbital: periorbital findings normal Eyelids: eyelids normal Sclera: sclerae normal Pupils: Equal, round and reactive pupils present EOM: EOMs intact bilaterally Neck: Neck: normal visual inspection, full ROM, no lymphadenopathy, trachea midline and supple Chest: Chest palpation & inspection: normal inspection of the chest Resp: Effort & Inspection: normal respiratory effort Auscultation: rhonchi Cardio: Palpation: normal PMI Rate: tachycardic Rhythm: abnormal rhythm
[2023-04-09] MEDS: PRAVASTATIN SODIUM 20 MG TABLET 80 MG PO (20:43)
[2023-04-10] VITALS (20 sets, daily range): BP systolic 116–132; BP diastolic 63–97; PULSE 56–80; RESP 18–20; TEMP 36.4–36.5; O2SAT 95–100
[2023-04-10] MEDS: LEVALBUTEROL NEB 1.25 MG/3 ML INHALATION ×4 (02:31→21:33)
[2023-04-10] MEDS: LEVOTHYROXINE SODIUM 112 MCG TABLET PO (05:54)
[2023-04-10] MEDS: CHOLECALCIFEROL 1,000 UNITS TABLET 2000 UNITS PO (09:21)
[2023-04-10] MEDS: METOPROLOL SUCCINATE EXT REL 50 MG TABCR 150 MG PO (09:21)
[2023-04-10] MEDS: APIXABAN 5 MG TABLET PO ×2 (09:22→20:11)
[2023-04-10] MEDS: CHOLESTYRAMINE LIGHT 4 GM POWD.PACK PO (09:22)
[2023-04-10] MEDS: POTASSIUM CHLORIDE 20 MEQ TABLET.ER PO ×2 (09:22→17:26)
[2023-04-10] MEDS: CYANOCOBALAMIN 1,000 MCG TABLET 1000 MCG PO (09:22)
[2023-04-10] MEDS: HYDROXYCHLOROQUINE SULFATE 200 MG TABLET PO ×2 (09:22→17:26)
[2023-04-10] MEDS: FUROSEMIDE 40 MG TABLET PO ×2 (09:22→17:26)
[2023-04-10] MEDS: DULoxetine HCL 20 MG CAPSULE.DR PO (09:22)
[2023-04-10] MEDS: predniSONE 2.5 MG TABLET PO (09:22)
[2023-04-10] MEDS: TOLNAFTATE 1% POWDER 45 GM BTL 1 APPLIC TOPICAL ×2 (09:22→20:15)
--- NOTE | 2023-04-10 10:25 | PCOTNOTE ---
Attempted to see Patient at this time. Patient declined services at this time, stating she just returned to bed from going to the bathroom. She stated, I will do something later after lunch, come back . Will attempt again this P.M.
--- NOTE | 2023-04-10 14:50 | PM.IMPN ---
Progress Note: A&P Assessment and Plan (1) Acute on chronic diastolic congestive heart failure: Code(s): I50.33 - Acute on chronic diastolic (congestive) heart failure Status: Acute Assessment and Plan: Continue Lasix p.o. 40 mg b.i.d. Cardiology consulted. Echo: ?1. Normal left ventricular size with mild concentric hypertrophy.? Severe global hypokinesis, ejection fraction 27 %.? However this study was done with atrial fibrillation at an uncontrolled hear rate (heart rate in the 130s) and the EF may be falsely low due to severe tachycardia.? No segmental wall motion abnormalities appreciated.? Diastolic function indeterminate. ? 2. Severe left atrial enlargement. ? 3. Mild right atrial enlargement. ? 4. There is mild to moderate mitral valve regurgitation. ? 5. There is mild tricuspid valve regurgitation. ? 6. Moderate pulmonary hypertension, estimated pulmonary arterial systolic pressure is 50 mmHg. ? 7. Dilated inferior vena cava with >50% collapse upon inspiration consistent with elevated right atrial pressure, 15 mmHg. ? 8. Atrial fibrillation with a rapid ventricular rate. ? 9. Consider repeating a limited echo when heart rate has improved to better determine the left ventricular function and ejection fraction. ? 10. Technically difficult study.? Definity echo contrast used. CTA negative for PE. (2) Atrial fibrillation with RVR: Code(s): I48.91 - Unspecified atrial fibrillation Status: Acute Assessment and Plan: Heart rate control. appreciate cardiology input Patient started on oral diltiazem per Cardiology. oral metoprolol continue with apixaban (3) Chronic anemia: Code(s): D64.9 - Anemia, unspecified Status: Acute Assessment and Plan: monitor H&H the patient is on apixaban FOBT is positive (4) Chronic respiratory failure with hypoxia, on home oxygen therapy: Code(s): J96.11 - Chronic respiratory failure with hypoxia; Z99.81 - Dependence on supplemental oxygen Status: Acute Assessment and Plan: continue with home O2 (5) Essential (primary) hypertension: Code(s): I10 - Essential (primary) hypertension Status: Chronic Assessment and Plan: continue with diltiazem Continue with oral Lasix Continue with oral metoprolol (6) Mixed hyperlipidemia: Code(s): E78.2 - Mixed hyperlipidemia Status: Acute Assessment and Plan: continue with pravastatin Plan Vertebral compression fractures multiple Osteopenia neck Bilateral chronic interstitial lung disease ongoing at least from [address] report Chronic respiratory failure on oxygen 2 L at rest Holter with exertion 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 Place on PPI if not already on Subjective Date/time seen: 04/10/23 14:50 Interval history: Admitted for CHF, AF No overnight events. Feeling well. Leg swelling has improved. Still quite weak to get up. The set on the stair yesterday. Comes from [facility] which she was recently discharged to. Remains on oxygen which is chronic. Review of Systems Review of Systems: All systems reviewed & are unremarkable except as noted in HPI and below Objective Data Vital Signs Vital Signs: Vital Signs - 24 hr 04/09/23 16:00 04/09/23 20:39 04/09/23 21:01 Temperature 98.3 F Pulse Rate 55 L 68 60 Respiratory Rate 20 18 Blood Pressure 117/85 Pulse Oximetry 100 Oxygen Delivery Oxygen Flow Rate Fraction of Inspired Oxygen 04/09/23 21:12 04/09/23 21:12 04/09/23 21:16 Temperature Pulse Rate 60 58 L 75 Respiratory Rate 18 Blood Pressure Pulse Oximetry 99 98 Oxygen Delivery Nasal Cannula CPAP Oxygen Flow Rate 4 Fraction of Inspired Oxygen 36 04/09/23 20:00 04/10/23 00:00 04/10/23
[2023-04-10] MEDS: PANTOPRAZOLE SODIUM IV 40 MG VIAL IV PUSH (20:10)
[2023-04-10] MEDS: PRAVASTATIN SODIUM 20 MG TABLET 80 MG PO (20:11)
[2023-04-11] VITALS (11 sets, daily range): BP systolic 134; BP diastolic 77; PULSE 60–77; RESP 20; TEMP 36.3; O2SAT 97–100
[2023-04-11] MEDS: LEVALBUTEROL NEB 1.25 MG/3 ML INHALATION ×2 (02:12→08:12)
[2023-04-11 05:41] LABS: Basophils Percent Auto 0.5 % (0.2-1.2); Eosinophils Absolute Auto 0.6 K/mm3 (0-0.3); Eosinophils Percent Auto 6.7 % (0-4.4); Hematocrit 30.3 % (37.0-47.0); Hemoglobin 8.8 g/dL (12.0-15.0); Immature Granulocyte Absolute 0.03 K/mm3 (0.00-0.031); Immature Granulocyte Percent A 0.3 % (0-0.5); Lymphocytes Absolute Auto 1.43 K/mm3 (0.9-3.2); Lymphocytes Percent Auto 16.4 % (18.3-44.2); Mean Corpuscular Hemoglobin 30.2 pg (26-34); Mean Corpuscular Volume 104.1 fl (80-100); Monocytes Absolute Auto 0.9 K/mm3 (0.1-0.6); Monocytes Percent Auto 10.8 % (2.6-8.5); Neutrophils Absolute Auto 5.7 K/mm3 (1.3-6.7); Neutrophils Percent Auto 65.3 % (45.5-73.1); Platelet Count Result 231 k/mm3 (150-375); Red Blood Count 2.91 M/mm3 (4.2-5.4); Red Cell Distribution Width 14.2 % (11.5-14.5); White Blood Count 8.7 K/mm3 (4.5-10.0)
[2023-04-11 05:55] LABS: Alanine Aminotransferase 19 U/L (6-35); Albumin Level 3.6 g/dL (3.5-5.1); Alkaline Phosphatase 43 U/L (38-126); Aspartate Amino Transferase 24 U/L (14-36); Bilirubin,Total 0.4 mg/dL (0.2-1.3); Blood Urea Nitrogen 28 mg/dL (7-17); Calcium 9.1 mg/dL (8.4-10.2); Carbon Dioxide > 40 mmol/L (22-30); Chloride 96 mmol/L (98-107); Estimated CRCL calculation 50 ml/min; Estimated Glomerular Filt Rate 54; Glucose 92 mg/dL (65-110); Magnesium 1.7 mg/dL (1.6-2.3); Potassium 4.3 mmol/L (3.4-5.0); Sodium 139 mmol/L (137-145)
[2023-04-11] MEDS: LEVOTHYROXINE SODIUM 112 MCG TABLET PO (05:55)
[2023-04-11 06:52] LABS: Hypochromasia 1+ (NORMAL); Platelet Estimate Adequate (Adequate); Schistocytes None Seen (NORMAL); Tear Drop Cells 1+ (NORMAL)
[2023-04-11] MEDS: traMADol HCL (*CRX) 50 MG TABLET PO (09:17)
[2023-04-11] MEDS: POTASSIUM CHLORIDE 20 MEQ TABLET.ER PO (09:18)
[2023-04-11] MEDS: PANTOPRAZOLE SODIUM IV 40 MG VIAL IV PUSH (09:18)
[2023-04-11] MEDS: DULoxetine HCL 20 MG CAPSULE.DR PO (09:19)
[2023-04-11] MEDS: APIXABAN 5 MG TABLET PO (09:19)
[2023-04-11] MEDS: FUROSEMIDE 40 MG TABLET PO (09:19)
[2023-04-11] MEDS: HYDROXYCHLOROQUINE SULFATE 200 MG TABLET PO (09:19)
[2023-04-11] MEDS: CHOLESTYRAMINE LIGHT 4 GM POWD.PACK PO (09:20)
[2023-04-11] MEDS: predniSONE 2.5 MG TABLET PO (09:20)
[2023-04-11] MEDS: CYANOCOBALAMIN 1,000 MCG TABLET 1000 MCG PO (09:20)
[2023-04-11] MEDS: CHOLECALCIFEROL 1,000 UNITS TABLET 2000 UNITS PO (09:20)
[2023-04-11] MEDS: TOLNAFTATE 1% POWDER 45 GM BTL 1 APPLIC TOPICAL (09:20)
[2023-04-11] MEDS: METOPROLOL SUCCINATE EXT REL 50 MG TABCR 150 MG PO (09:20)
--- NOTE | 2023-04-11 11:44 | PM.DS ---
DS: Admitting Diagnosis Discharge Date 04/11/2023 Admitting Diagnosis shortness of breath DS: Summary Hospital Course Hospital Course: # Acute on chronic diastolic congestive heart failure: Continue Lasix p.o. 40 mg b.i.d. Cardiology consulted.? Echo: ?1. Normal left ventricular size with mild concentric hypertrophy.? Severe global hypokinesis, ejection fraction 27 %.? However this study was done with atrial fibrillation at an uncontrolled hear rate (heart rate in the 130s) and the EF may be falsely low due to severe tachycardia.? No segmental wall motion abnormalities appreciated.? Diastolic function indeterminate. ? 2. Severe left atrial enlargement. ? 3. Mild right atrial enlargement. ? 4. There is mild to moderate mitral valve regurgitation. ? 5. There is mild tricuspid valve regurgitation. ? 6. Moderate pulmonary hypertension, estimated pulmonary arterial systolic pressure is 50 mmHg. ? 7. Dilated inferior vena cava with >50% collapse upon inspiration consistent with elevated right atrial pressure, 15 mmHg. ? 8. Atrial fibrillation with a rapid ventricular rate. ? 9. Consider repeating a limited echo when heart rate has improved to better determine the left ventricular function and ejection fraction. ? 10. Technically difficult study.? Definity echo contrast used. CTA negative?for PE. # Atrial fibrillation with RVR: Heart rate control.? appreciate cardiology input Patient started on oral diltiazem per Cardiology.? oral metoprolol ?continue with apixaban # Chronic anemia: ?monitor H&H ?the patient is on apixaban FOBT is positive, however no actvie signs of bleeding and no josé pin h and h. added ppi. she is not on chronic nsaids. she is on chronc steroid therapy. discussed gi consultation either inpatient or outpatient with the patient. she will do that as op basis. 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 no josé pin berrios ndh. add ppi. op gi workup Time Spent with Patient Time attestation: Total time spent providing and/or coordinating discharge services:45 mins Exam Narrative: APPEARANCE: Well appearing, no pain, no distress, well-nourished. HEAD: normocephalic, atraumatic. EYES: PERRLA/EOMI, conjunctivae clear. NOSE: Normal no drainage THROAT: Pharynx clear, no exudate. NECK: Supple. No adenopathy, no masses. RESPIRATORY: Airway patent, respirations nonlabored.? diminshed breath sounds bilaterally CARDIOVASCULAR: Regular rate and rhythm without murmurs rubs or gallops. ABDOMINAL: Soft, nontender, nondistended, normal bowel sounds MUSCULOSKELETAL: Moves all extremities.? Lower extremity swelling bilaterally NEURO: Alert. Cranial nerves II through XII intact.? Grossly intact SKIN: Warm, dry. Normal Color, bilateral lower extremity edema DS: Data Data Completed and Pending Completed studies during hospitalization: Exam Type: ? ? CA echo dop color flow w con Study Info Indications ? ? I50.30 - Unspecified diastolic (congestive) heart failure Complete two-dimensional, color flow and Doppler transthoracic echocardiogram is performed with contrast to opacify the left ventricle and to improve the deliniation of the left ventricle endocardial borders. Account #: ? ? [id number] Contrast/Agitated Saline Contrast/Ag. Saline: ? ? Definity Amount
[2023-04-11 11:58] LABS: IFOB Positive Control Positive; Immunochemical Fecal Occult Bl Positive (N)
[2023-04-11 12:33] LABS: EDCOVIDSCREEN Negative (Negative)
== END 2023-04-11 13:35 | DRG 291 ==
LOC: ANHED 14:37 → ANH3MEDSUR 17:15 → ANH3MED 04-06 04:14 → ANH3MEDSUR 04-06 05:14
PROVIDERS: Family Medicine; Internal Medicine Cardiovascular Disease; Nurse Practitioner; Admitting Provider Family Medicine; Emergency Provider Emergency Medicine; PCP Family Medicine; Referring Provider Internal Medicine Cardiovascular Disease; Visit Provider Internal Medicine
DX: I50.33 Acute on chronic diastolic (congestive) heart failure; I13.0 Hypertensive heart and chronic kidney disease with heart failure and stage 1 through stage 4 chronic kidney disease, or unspecified chronic kidney disease; J96.11 Chronic respiratory failure with hypoxia; N18.30 Chronic kidney disease, stage 3 unspecified; D63.1 Anemia in chronic kidney disease; E55.9 Vitamin D deficiency, unspecified; E78.2 Mixed hyperlipidemia; E03.9 Hypothyroidism, unspecified; E66.01 Morbid (severe) obesity due to excess calories; G47.33 Obstructive sleep apnea (adult) (pediatric); H91.90 Unspecified hearing loss, unspecified ear; I48.0 Paroxysmal atrial fibrillation; M81.0 Age-related osteoporosis without current pathological fracture; M06.9 Rheumatoid arthritis, unspecified; M85.80 Other specified disorders of bone density and structure, unspecified site; Z20.822 Contact with and (suspected) exposure to COVID-19; Z96.653 Presence of artificial knee joint, bilateral; Z90.89 Acquired absence of other organs; Z99.89 Dependence on other enabling machines and devices; Z90.49 Acquired absence of other specified parts of digestive tract; Z79.01 Long term (current) use of anticoagulants; Z99.81 Dependence on supplemental oxygen; Z86.718 Personal history of other venous thrombosis and embolism; Z86.711 Personal history of pulmonary embolism
CPT/HCPCS: 36415; 71045; 71046; 80048; 80053; 82274; 83605; 83690; 83735; 83880; 84443; 84484; 85014; 85018; 85025; 85610; 85730; 87426; 93005; 94640; 96374; 96375; 97161; 97165; 97530; 97535; 99285; A9270; C8929; C9113; C9803; G0378; J1940; Q9957

== ENCOUNTER 2023-05-17 09:55 | Emergency (ER) | payer MEDICARE, SELFPAY ==
[2023-05-17] VITALS (9 sets, daily range): BP systolic 111–129; BP diastolic 64–77; PULSE 63–84; RESP 15–19; TEMP 36.7; O2SAT 97–100
--- NOTE | ~2023-05-17 | XR_ITS ---
EXAMINATION: XR chest 1V portable DATE: 05/17/2023 10:48 INDICATION: Chest pain. Chronic hypoxia requiring supplemental home oxygen at baseline TECHNIQUE: frontal view of the chest was obtained. COMPARISON: Chest radiograph dated 04/11/2023 FINDINGS: Lung volumes are small particularly on the right. No significant change in chronic bilateral ground g lass opacities superimposed over a coarse reticular pattern consistent with chronic interstitial lung disease. No definitive new airspace opacities, pleural effusion or pneumothorax. Mild cardiomegaly. Cholecystectomy clips in right upper quadrant. Chronic compression fractures in the lower thoracic sp ine. IMPRESSION: 1. Stable appearance of chronic interstitial lung disease with decreased lung volumes. No definitive new opacities but difficult to absolutely exclude superimposed mild pulmonary edema or pneumonia. 2. Cardiomegaly. Reviewed, dictated and finalized at location A. IMPRESSION: 1. Stable appearance of chronic interstitial lung disease with decreased lung v olumes. No definitive new opacities but difficult to absolutely exclude superim posed mild pulmonary edema or pneumonia. 2. Cardiomegaly.
--- NOTE | 2023-05-17 09:56 | ECG_ITS ---
Measurements Intervals [place] Rate: 71 P: 151 MI: 115 QRS: -22 QRSD: 142 T: 68 QT: 393 QTc: 427 Interpretive Statements ATRIAL FIB/FLUTTER WITH CONTROLLED VENTRICULAR RESPONSE LEFT ANTERIOR SUPERIOR HEMIBLOCK ABNORMAL ECG COMPARED TO ECG 04/05/2023 12:03:12 NO DIFFERENCE Electronically Signed On 05-17-2023 16:12:45 CDT by Obed Sands M.D.
--- NOTE | 2023-05-17 10:17 | ED.CHESTPAIN ---
HPI - Chest Pain General Chief Complaint: Chest Pain Stated Complaint: CP Time Seen by Provider: 05/17/23 09:58 History of Present Illness HPI narrative: 73-year-old female presents to the emergency room today for evaluation for chest pain. She says that she had a brief episode of sharp chest pain yesterday evening. She says it was a very quick sharp pain. She felt a little sweaty and nauseated afterwards. This morning she has noticed a sensation of tapping in her chest it is a very quick sensation and is happening about every 30 minutes. She says that she has had PVCs before but has never felt them. She says that she does not feel palpitations. She has never had palpitations in the past. No dizziness or lightheadedness. She denies a feeling of illness. No abdominal pain. No nausea or vomiting. No sweats this morning. She has a history of congestive heart failure and is under the care of cardiology for this. She says that her leg swelling is actually better than normal. She has chronic shortness of breath with exertion but says this is no worse than her normal. Related Data Home Medications Medication Instructions Recorded Confirmed Calcium 600-D3 Plus (mag-zinc) 1 tablet PO BID 07/21/22 04/18/23 cholecalciferol (vitamin D3) 25 2,000 mcg PO DAILY 07/21/22 04/18/23 mcg (1,000 unit) capsule cyanocobalamin (vitamin B-12) 1,000 mcg PO DAILY 07/21/22 04/18/23 1,000 mcg tablet hydroxychloroquine 200 mg tablet 200 mg PO BID 07/21/22 04/18/23 acetaminophen 325 mg capsule 325 mg PO Q6H PRN Pain 12/27/22 04/18/23 (Tylenol) prednisone 2.5 mg tablet 2.5 mg PO DAILY 12/27/22 04/18/23 duloxetine 20 mg capsule,delayed 20 mg PO DAILY 03/22/23 04/18/23 release metoprolol succinate 50 mg 150 mg PO QAM 03/22/23 04/18/23 tablet,extended release 24 hr sacubitril 24 mg-valsartan 26 mg 1 tablet PO BID 04/16/23 04/18/23 tablet (Entresto) Allergies Allergy/AdvReac Type Severity Reaction Status Date / Time No Known Allergies Allergy Verified 05/17/23 10:18 Review of Systems Review of Systems: CONSTITUTIONAL: Denies fever, chills, or sweats. EYES: Denies visual changes, redness, or discharge. ENT: Denies rhinorrhea, congestion, sore throat, or otalgia. CARDIOVASCULAR: as per HPI RESPIRATORY: Denies cough or dyspnea. GASTROINTESTINAL: Denies abdominal pain, nausea, vomiting, or diarrhea. GENITOURINARY: Denies dysuria or hematuria. SKIN: Denies rash or itching. MUSCULOSKELETAL: Denies back pain, joint pain, or myalgia. NEUROLOGIC: Denies headache, numbness, dizziness, or weakness. PSYCHIATRIC: Denies anxiety or depression. [facility] Past Medical History Medical History Chronic anemia Chronic anticoagulation Chronic diastolic congestive heart failure Echocardiogram in 06/2022 showed an EF 50 to 55% and diastolic dysfunction. Chronic kidney disease, stage 3 Chronic respiratory failure with hypoxia, on home oxygen therapy On 2 to 4 L nasal cannula. Deep venous thrombosis (2004) Degenerative joint disease Depression with anxiety Diverticulosis Essential hypertension Hearing loss History of COVID-19 Hyperlipidemia Hypothyroidism Interstitial lung disease Morbid obesity Nonspecific interstitial pneumonitis Obstructive sleep apnea on CPAP Osteoporosis Paroxysmal atrial fibrillation Post menopausal syndrome Pre-diabetes Pulmonary embolism (2004) Rheumatoid arthritis Shingles Stress incontinence Vitamin D deficiency Surgical History Surgical History History of arthroscopy of right knee History of bilateral knee replacement History of cardiac catheterization History of section History of cholecystectomy History of parathyroidectomy History of tonsillectomy and adenoidectomy Family History Family History Mother Hypertension Fath
--- NOTE | 2023-05-17 10:23 | PC.NURSE ---
Pt refused prescribed Aspirin. Provider notified.
[2023-05-17 11:02] LABS: Basophils Absolute Auto 0.1 K/mm3 (0.0-0.1); Basophils Percent Auto 0.5 % (0.2-1.2); Eosinophils Absolute Auto 0.3 K/mm3 (0-0.3); Eosinophils Percent Auto 3.3 % (0-4.4); Hematocrit 33.3 % (37.0-47.0); Immature Granulocyte Absolute 0.04 K/mm3 (0.00-0.031); Immature Granulocyte Percent A 0.4 % (0-0.5); Lymphocytes Absolute Auto 1.12 K/mm3 (0.9-3.2); Lymphocytes Percent Auto 12.3 % (18.3-44.2); Mean Corpuscular Hemoglobin 30.9 pg (26-34); Mean Corpuscular Volume 102.8 fl (80-100); Mean Platelet Volume 10.7 fl (7.4-10.4); Monocytes Absolute Auto 0.9 K/mm3 (0.1-0.6); Monocytes Percent Auto 9.9 % (2.6-8.5); Neutrophils Absolute Auto 6.7 K/mm3 (1.3-6.7); Neutrophils Percent Auto 73.6 % (45.5-73.1); Platelet Count Result 275 k/mm3 (150-375); Red Blood Count 3.24 M/mm3 (4.2-5.4); Red Cell Distribution Width 14.4 % (11.5-14.5); White Blood Count 9.1 K/mm3 (4.5-10.0)
[2023-05-17 11:12] LABS: INR 1.3; Prothrombin Time 17.3 Seconds (11.1-14.7)
[2023-05-17 11:13] LABS: Alanine Aminotransferase 14 U/L (6-35); Albumin Level 4.3 g/dL (3.5-5.1); Alkaline Phosphatase 34 U/L (38-126); Anion Gap 6 mmol/L (8-16); Aspartate Amino Transferase 24 U/L (14-36); Bilirubin,Total 0.3 mg/dL (0.2-1.3); Blood Urea Nitrogen 31 mg/dL (7-17); Calcium 9.6 mg/dL (8.4-10.2); Carbon Dioxide 33 mmol/L (22-30); Chloride 101 mmol/L (98-107); Estimated CRCL calculation 40 ml/min; Estimated Glomerular Filt Rate 44; Glucose 102 mg/dL (65-110); Lipase 100 U/L (23-300); Partial Thromboplastin Time 27.3 SECONDS (22.3-36.8); Potassium 4.4 mmol/L (3.4-5.0); Sodium 140 mmol/L (137-145)
[2023-05-17 11:25] LABS: Troponin I < 0.012 ng/mL (0.000-0.034)
[2023-05-17 11:31] LABS: NT Pro B Type Natriuretic Pept 1440 pg/mL (19.9-100)
[2023-05-17 13:30] LABS: Troponin I < 0.012 ng/mL (0.000-0.034)
== END 2023-05-17 13:40 | disposition home or self-care (01) ==
PROVIDERS: Emergency Medicine; Emergency Provider Nurse Practitioner Family; PCP Family Medicine
DX: R00.2 Palpitations (principal); R07.9 Chest pain, unspecified; I50.32 Chronic diastolic (congestive) heart failure; N18.30 Chronic kidney disease, stage 3 unspecified; I13.0 Hypertensive heart and chronic kidney disease with heart failure and stage 1 through stage 4 chronic kidney disease, or unspecified chronic kidney disease; E78.5 Hyperlipidemia, unspecified; E03.9 Hypothyroidism, unspecified; E66.01 Morbid (severe) obesity due to excess calories; Z68.41 Body mass index [BMI] 40.0-44.9, adult; G47.33 Obstructive sleep apnea (adult) (pediatric); I48.0 Paroxysmal atrial fibrillation; E55.9 Vitamin D deficiency, unspecified
CPT/HCPCS: 36415; 71045; 80053; 83690; 83880; 84484; 85025; 85610; 85730; 93005; 99284

== ENCOUNTER 2023-06-24 07:38 | Outpatient (CLI) | payer MEDICARE, SELFPAY ==
[2023-06-24 08:14] LABS: Anion Gap 2 mmol/L (8-16); Blood Urea Nitrogen 40 mg/dL (7-17); Carbon Dioxide 31 mmol/L (22-30); Chloride 104 mmol/L (98-107); Estimated Glomerular Filt Rate 44; Glucose 91 mg/dL (65-110); Potassium 4.3 mmol/L (3.4-5.0); Sodium 137 mmol/L (137-145)
== END 2023-06-24 07:39 | disposition home or self-care (01) ==
PROVIDERS: PCP Family Medicine; Visit Provider Nurse Practitioner Adult Health
DX: I50.32 Chronic diastolic (congestive) heart failure (principal)
CPT/HCPCS: 36415; 80048

== ENCOUNTER 2023-06-27 09:44 | Outpatient (CLI) | payer MEDICARE, SELFPAY ==
[2023-06-27 10:46] LABS: Hematocrit 30.5 % (37.0-47.0); Mean Corpuscular HGB Conc 29.5 g/dl (32-36); Mean Corpuscular Hemoglobin 30.5 pg (26-34); Mean Corpuscular Volume 103.4 fl (80-100); Mean Platelet Volume 10.5 fl (7.4-10.4); Platelet Count Result 213 k/mm3 (150-375); Red Blood Count 2.95 M/mm3 (4.2-5.4); Red Cell Distribution Width 14.2 % (11.5-14.5); White Blood Count 7.8 K/mm3 (4.5-10.0)
[2023-06-27 11:18] LABS: Iron 76 ug/dL (37-170)
[2023-06-27 11:29] LABS: Percent Iron Saturation 25 % (20-50)
[2023-06-27 12:02] LABS: Folic Acid 15.5 ng/mL (2.76->20)
== END 2023-06-27 09:45 | disposition home or self-care (01) ==
PROVIDERS: PCP Family Medicine; Visit Provider Nurse Practitioner
DX: D53.9 Nutritional anemia, unspecified (principal); R19.5 Other fecal abnormalities
CPT/HCPCS: 36415; 82607; 82728; 82746; 83540; 83550; 85027

== ENCOUNTER 2023-07-17 08:10 | Outpatient (CLI) | payer MEDICARE, SELFPAY ==
[2023-07-17 08:58] LABS: Appearance Urine Turbid (Clear); Bacteria Urine 4+ /hpf; Bilirubin Urine Negative (Negative); Blood Urine 2+ (Negative); Color Urine Yellow (Yellow); Glucose Urine UA Negative (Negative); Ketones Urine Negative (Negative); Leukocyte Esterase Ur 3+ LEU/UL (NEGATIVE); Need Manual Microscopic Reviewed; Nitrate Urine Negative (Negative); Non Pathogenic Casts 0-2; Protein Urine 2+ mg/dL (Negative); RBC Urine 51-100 /hpf (0-2); Specific Grav Ur 1.014 (1.001-1.035); Squamous Epithelial Cell Urine Many /hpf (Few); Urobilinogen Urine 0.2 mg/dL (<2.0); WBC Urine >100 /hpf (0-3); pH Urine 5.5 (5.0-9.0)
[2023-07-17 08:59] LABS: Add Urine Microscopic? YES
== END 2023-07-17 08:11 | disposition home or self-care (01) ==
PROVIDERS: PCP Family Medicine; Visit Provider Family Medicine
DX: I50.82 Biventricular heart failure (principal); N30.90 Cystitis, unspecified without hematuria
CPT/HCPCS: 81001; 87086; 87088

== ENCOUNTER 2023-07-19 09:27 | Outpatient (CLI) | payer MEDICARE, SELFPAY ==
[2023-07-19 09:40] LABS: IFOB Positive Control Positive; Immunochemical Fecal Occult Bl Positive (N)
== END 2023-07-19 09:28 | disposition home or self-care (01) ==
LOC: ANHLAB 09:28
PROVIDERS: PCP Family Medicine; Visit Provider Nurse Practitioner
DX: R19.5 Other fecal abnormalities (principal)
CPT/HCPCS: 82274

== ENCOUNTER 2023-07-26 13:54 | Outpatient (CLI) | payer MEDICARE, SELFPAY ==
[2023-07-26 14:23] LABS: Hematocrit 31.8 % (37.0-47.0); Hemoglobin 9.7 g/dL (12.0-15.0); Mean Corpuscular HGB Conc 30.5 g/dl (32-36); Mean Corpuscular Hemoglobin 31.3 pg (26-34); Mean Corpuscular Volume 102.6 fl (80-100); Mean Platelet Volume 9.3 fl (7.4-10.4); Platelet Count Result 241 k/mm3 (150-375); Red Cell Distribution Width 13.9 % (11.5-14.5); White Blood Count 7.5 K/mm3 (4.5-10.0)
== END 2023-07-26 13:55 | disposition home or self-care (01) ==
PROVIDERS: PCP Family Medicine; Visit Provider Nurse Practitioner
DX: I50.9 Heart failure, unspecified (principal); R19.5 Other fecal abnormalities; D64.9 Anemia, unspecified
CPT/HCPCS: 36415; 85027

== ENCOUNTER 2023-08-05 08:14 | Outpatient (CLI) | payer MEDICARE, SELFPAY ==
[2023-08-05 09:35] LABS: Albumin Level 3.8 g/dL (3.5-5.1); Anion Gap 10 mmol/L (8-16); Blood Urea Nitrogen 37 mg/dL (7-17); Calcium 9.8 mg/dL (8.4-10.2); Carbon Dioxide 25 mmol/L (22-30); Chloride 105 mmol/L (98-107); Estimated Glomerular Filt Rate 31; Glucose 87 mg/dL (65-110); Phosphorus 3.5 mg/dL (2.5-4.5); Potassium 4.1 mmol/L (3.4-5.0); Sodium 140 mmol/L (137-145)
[2023-08-05 09:45] LABS: Parathyroid Intact 84.9 pg/mL (7.5-53.5)
[2023-08-05 09:53] LABS: Creatinine Urine 58.3 mg/dL
[2023-08-05 09:57] LABS: Vitamin D 25 Hydroxy 60.7 ng/mL
[2023-08-05 10:48] LABS: Total Protein Urine Random 294 mg/dL; Ur Ttl Prot Creatinine Ratio 5.04 mg/mg (0-0.20)
== END 2023-08-05 08:15 | disposition home or self-care (01) ==
LOC: ANHLAB 08:16
PROVIDERS: PCP Family Medicine; Visit Provider Internal Medicine Nephrology
DX: E55.9 Vitamin D deficiency, unspecified (principal); I12.9 Hypertensive chronic kidney disease with stage 1 through stage 4 chronic kidney disease, or unspecified chronic kidney disease; N25.81 Secondary hyperparathyroidism of renal origin; N18.32 Chronic kidney disease, stage 3b
CPT/HCPCS: 36415; 80069; 82306; 82570; 83970; 84156

== ENCOUNTER 2023-08-16 08:19 | Emergency (ER) | payer MEDICARE, SELFPAY ==
[2023-08-16] VITALS (7 sets, daily range): BP systolic 100–147; BP diastolic 54–77; PULSE 87–99; RESP 16–22; TEMP 36.4–36.8; O2SAT 99–100
--- NOTE | 2023-08-16 08:50 | PC.NURSE ---
Pt states her urologist wants to perform botox injection on her bladder, she has refused.
--- NOTE | 2023-08-16 09:28 | ED.GENADULT ---
HPI - General Adult General Chief complaint: Urogenital-Female Stated complaint: burning with urination and lower abdominal pain Time Seen by Provider: 08/16/23 08:38 History of Present Illness HPI narrative: 73-year-old female present to the emergency department for evaluation of increased urinary retention. Patient does have prior history of urinary retention has been following up with urology. Patient states over the last few days she has had increased abdominal pain and increased difficulty with urinating. Related Data Home Medications Medication Instructions Recorded Confirmed Calcium 600-D3 Plus (mag-zinc) 1 tablet PO BID 07/21/22 08/15/23 cholecalciferol (vitamin D3) 25 2,000 mcg PO DAILY 07/21/22 08/15/23 mcg (1,000 unit) capsule cyanocobalamin (vitamin B-12) 1,000 mcg PO DAILY 07/21/22 08/15/23 1,000 mcg tablet hydroxychloroquine 200 mg tablet 200 mg PO BID 07/21/22 08/15/23 acetaminophen 325 mg capsule 325 mg PO Q6H PRN Pain 12/27/22 08/15/23 (Tylenol) prednisone 2.5 mg tablet 2.5 mg PO DAILY 12/27/22 08/15/23 metoprolol succinate 50 mg 150 mg PO QAM 03/22/23 08/15/23 tablet,extended release 24 hr sacubitril 24 mg-valsartan 26 mg 1 tablet PO BID 04/16/23 08/15/23 tablet (Entresto) abatacept 125 mg/mL subcutaneous 125 mg subcut WEEKLY 05/23/23 08/15/23 auto-injector (Orencia ClickJect) Allergies Allergy/AdvReac Type Severity Reaction Status Date / Time No Known Allergies Allergy Verified 08/16/23 08:20 Review of Systems Review of Systems: All systems reviewed & are unremarkable except as noted in HPI and below PMFSH Past Medical History Medical History Chronic anemia Chronic anticoagulation Chronic diarrhea Chronic diastolic congestive heart failure Echocardiogram in 06/2022 showed an EF 50 to 55% and diastolic dysfunction. Chronic kidney disease, stage 3 Chronic respiratory failure with hypoxia, on home oxygen therapy On 2 to 4 L nasal cannula. Deep venous thrombosis (2004) Degenerative joint disease Depression with anxiety Diverticulosis Essential hypertension Fecal occult blood test positive Hearing loss History of COVID-19 Hyperlipidemia Hypothyroidism Interstitial lung disease Morbid obesity Nonspecific interstitial pneumonitis Obstructive sleep apnea on CPAP Osteoporosis Paroxysmal atrial fibrillation Post menopausal syndrome Pre-diabetes Pulmonary embolism (2004) Rheumatoid arthritis Shingles Stress incontinence Vitamin D deficiency Surgical History Surgical History History of arthroscopy of right knee History of bilateral knee replacement History of cardiac catheterization History of section History of cholecystectomy History of parathyroidectomy History of tonsillectomy and adenoidectomy Family History Family History Mother Hypertension Father Pulmonary emboli Rheumatoid arthritis Mother , at 91 due to old age Hypertension Father , at 58 due to PE Family history of rheumatoid arthritis Family history of pulmonary embolism Grandparent Cerebrovascular accident Other Family history of malignant neoplasm Social History Social History Social History: [facility] she lived with her daughter Ktaya in her house prior to going into the rehab facility. Originally from [place], [place]. Surrogate medical decision maker: Mae Cash, daughter. Code status: Full code. Smoking status: Never smoker Second hand tobacco smoke exposure: No Alcohol intake: never Substance use: never Substance use type: does not use Lack of Transportation: No Lack of Food: Never True Current Housing: I Have Housing Concerned About Future Housing: No Difficulty
[2023-08-16 10:46] LABS: Basophils Absolute Auto 0.1 K/mm3 (0.0-0.1); Basophils Percent Auto 0.4 % (0.2-1.2); Eosinophils Absolute Auto 0.2 K/mm3 (0-0.3); Eosinophils Percent Auto 1.9 % (0-4.4); Hematocrit 34.8 % (37.0-47.0); Hemoglobin 10.6 g/dL (12.0-15.0); Immature Granulocyte Absolute 0.06 K/mm3 (0.00-0.031); Immature Granulocyte Percent A 0.5 % (0-0.5); Lymphocytes Percent Auto 10.2 % (18.3-44.2); Mean Corpuscular HGB Conc 30.5 g/dl (32-36); Mean Corpuscular Hemoglobin 31.2 pg (26-34); Mean Corpuscular Volume 102.4 fl (80-100); Monocytes Absolute Auto 1.6 K/mm3 (0.1-0.6); Monocytes Percent Auto 12.8 % (2.6-8.5); Neutrophils Absolute Auto 9.5 K/mm3 (1.3-6.7); Neutrophils Percent Auto 74.2 % (45.5-73.1); Platelet Count Result 287 k/mm3 (150-375); Red Cell Distribution Width 14.5 % (11.5-14.5); White Blood Count 12.7 K/mm3 (4.5-10.0)
[2023-08-16 10:55] LABS: Alanine Aminotransferase 13 U/L (6-35); Albumin Level 4.2 g/dL (3.5-5.1); Alkaline Phosphatase 42 U/L (38-126); Anion Gap 10 mmol/L (8-16); Aspartate Amino Transferase 23 U/L (14-36); Bilirubin,Total 0.4 mg/dL (0.2-1.3); Blood Urea Nitrogen 47 mg/dL (7-17); Calcium 10.3 mg/dL (8.4-10.2); Carbon Dioxide 23 mmol/L (22-30); Chloride 106 mmol/L (98-107); Estimated CRCL calculation 36 ml/min; Estimated Glomerular Filt Rate 40; Glucose 92 mg/dL (65-110); Potassium 4.5 mmol/L (3.4-5.0); Sodium 139 mmol/L (137-145)
[2023-08-16] MEDS: ACETAMINOPHEN 325 MG TABLET 650 MG PO (11:23)
[2023-08-16] MEDS: traMADol HCL (*CRX) 50 MG TABLET PO (11:25)
--- NOTE | 2023-08-16 11:29 | PC.NURSE ---
Pt assisted to [facility] with 2 assist. Incontinent of large amout of urine. Voided dark urine with foul odor. Bladder scanner 743ml Dr. Salmon informed,
[2023-08-16 11:32] LABS: Appearance Urine Turbid (Clear); Bacteria Urine 4+ /hpf; Bilirubin Urine Negative (Negative); Blood Urine 3+ (Negative); Color Urine Yellow (Yellow); Glucose Urine UA Negative (Negative); Ketones Urine Negative (Negative); Leukocyte Esterase Ur 3+ LEU/UL (Negative); Need Manual Microscopic Reviewed; Nitrate Urine Negative (Negative); Non Pathogenic Casts >20; Protein Urine 2+ mg/dL (Negative); RBC Urine >100 /hpf (0-2); Specific Grav Ur 1.015 (1.001-1.035); Squamous Epithelial Cell Urine Few /hpf (Few); Urobilinogen Urine 0.2 mg/dL (<2.0); WBC Urine >100 /hpf
[2023-08-16 11:48] LABS: Add Urine Microscopic? YES
== END 2023-08-16 14:28 | disposition home or self-care (01) ==
PROVIDERS: Emergency Provider Emergency Medicine; PCP Family Medicine
DX: N39.0 Urinary tract infection, site not specified (principal); R33.9 Retention of urine, unspecified; I13.0 Hypertensive heart and chronic kidney disease with heart failure and stage 1 through stage 4 chronic kidney disease, or unspecified chronic kidney disease; N18.30 Chronic kidney disease, stage 3 unspecified; I50.32 Chronic diastolic (congestive) heart failure; I48.0 Paroxysmal atrial fibrillation; D64.9 Anemia, unspecified; E78.5 Hyperlipidemia, unspecified; E89.2 Postprocedural hypoparathyroidism; E55.9 Vitamin D deficiency, unspecified; E66.01 Morbid (severe) obesity due to excess calories; Z68.26 Body mass index [BMI] 26.0-26.9, adult; G47.33 Obstructive sleep apnea (adult) (pediatric); M06.9 Rheumatoid arthritis, unspecified; M81.0 Age-related osteoporosis without current pathological fracture; R73.03 Prediabetes; Z86.16 Personal history of COVID-19; Z86.711 Personal history of pulmonary embolism; Z86.718 Personal history of other venous thrombosis and embolism; Z96.653 Presence of artificial knee joint, bilateral; Z90.49 Acquired absence of other specified parts of digestive tract; Z79.01 Long term (current) use of anticoagulants
CPT/HCPCS: 36415; 80053; 81001; 85025; 87077; 87086; 87088; 87186; 96365; 99284; A9270; J0696

== ENCOUNTER 2023-09-06 01:27 | Day surgery (SDC) | payer MEDICARE, SELFPAY ==
[2023-08-28 15:37] VITALS: BMI 38.9
--- NOTE | 2023-09-04 21:15 | PM.HPGS ---
History of Present Illness History of Present Illness Consent: Risks, benefits, and alternatives have been discussed and questions answered. Patient agrees to proceed with procedure. Chief complaint: anemia, abnormal wt.loss,Other fecal abnormalities Narrative: Ayanna Cash is a 73 year old female here because of ongoing issues with Hemoccult-positive stools and anemia.? Hemoglobin which was 9 in [place] has come up to 10.61 month later. She has had no 3 hemoccults done this year which are all positive.? She herself does not see blood her stools. She is chronically anticoagulated due to atrial fibrillation for which he takes Eliquis. She does not use NSAIDs on any regular basis.? Her appetite is good in general but her daughter states that she has lost 12 lb in the last couple of weeks, 8 lb in 1 week alone. She has been found have normal serum iron of 76.? MCV is above normal. Review of Systems Review of Systems: All systems reviewed & are unremarkable except as noted in HPI and below PMFSH Past Medical History Medical History Chronic anemia Chronic anticoagulation Chronic diarrhea Chronic diastolic congestive heart failure Echocardiogram in 06/2022 showed an EF 50 to 55% and diastolic dysfunction. Chronic kidney disease, stage 3 Chronic respiratory failure with hypoxia, on home oxygen therapy On 2 to 4 L nasal cannula. Deep venous thrombosis (2004) Degenerative joint disease Depression with anxiety Diverticulosis Essential hypertension Fecal occult blood test positive Hearing loss History of COVID-19 Hyperlipidemia Hypothyroidism Interstitial lung disease Morbid obesity Nonspecific interstitial pneumonitis Obstructive sleep apnea on CPAP Osteoporosis Paroxysmal atrial fibrillation Post menopausal syndrome Pre-diabetes Pulmonary embolism (2004) Rheumatoid arthritis Shingles Stress incontinence Vitamin D deficiency Surgical History Surgical History History of arthroscopy of right knee History of bilateral knee replacement History of cardiac catheterization History of section History of cholecystectomy History of parathyroidectomy History of tonsillectomy and adenoidectomy Family History Family History Mother Hypertension Father Pulmonary emboli Rheumatoid arthritis Mother , at 91 due to old age Hypertension Father , at 58 due to PE Family history of rheumatoid arthritis Family history of pulmonary embolism Grandparent Cerebrovascular accident Other Family history of malignant neoplasm Social History Social History Social History: She currently resides at [facility] she lived with her daughter Katya in her house prior to going into the rehab facility. Originally from [place], [place]. Surrogate medical decision maker: Mae Cash, daughter. Code status: Full code. Smoking status: Never smoker Second hand tobacco smoke exposure: No Alcohol intake: current Substance use: never Substance use type: does not use Lack of Transportation: No Lack of Food: Never True Current Housing: I Have Housing Concerned About Future Housing: No Difficulty Paying Gas/Electric Bills: No Difficulty Paying for Meds: No Currently Unemployed: No Education: Grade School Difficulty w/ Childcare or Family Care: No Living arrangements: with family Additional living arrangements comments: with 5 children. She lives with her daughter Mae. Occupation/Education: retired Gender identity (if verbalized by the patient): Female Spiritual care concerns: No Agree to blood products: Yes Meds Home Medications and Allergies Home Medications Medication Instructions Recorded Confirmed Type Calcium 6
[2023-09-06 10:35] VITALS: BP 123/70; PULSE 74; RESP 24; TEMP 36.1; O2SAT 100; BMI 40.3
[2023-09-06] MEDS: LACTATED RINGERS 1,000 ML 150 ML IV CONT (10:40)
--- NOTE | 2023-09-06 11:15 | WPDANESEPPF ---
Anes - Initial Pre Proc Eval Procedure: Operation Date: 09/06/23 11:00 Proposed Procedures p Esophagogastroduodenoscopy & Colonoscopy - Sav Patel MD Date/Time: 09/06/23 11:15 Surgeon: Sav Patel MD Pre Op Diagnosis: anemia, abnormal wt.loss,Other fecal abnormalities Patient Data Age: 73 Gender: F Height: 1.57 m Weight: 100 kg Last Vital Signs Temp 97.0 F L 09/06/23 10:35 Pulse 74 09/06/23 10:35 Resp 24 H 09/06/23 10:35 BP 123/70 09/06/23 10:35 Pulse Ox 100 09/06/23 10:35 O2 Del Method Nasal Cannula 09/06/23 10:35 O2 Flow Rate 3 09/06/23 10:35 Allergies Allergy/AdvReac Type Severity Reaction Status Date / Time No Known Allergies Allergy Verified 09/06/23 10:32 Home Medications Medication Instructions Recorded Confirmed Type Calcium 600-D3 Plus (mag-zinc) 1 tablet PO BID 07/21/22 08/28/23 History cholecalciferol (vitamin D3) 25 2,000 mcg PO DAILY 07/21/22 08/28/23 History mcg (1,000 unit) capsule cyanocobalamin (vitamin B-12) 1,000 mcg PO DAILY 07/21/22 08/28/23 History 1,000 mcg tablet hydroxychloroquine 200 mg tablet 200 mg PO BID 07/21/22 08/28/23 History acetaminophen 325 mg capsule 325 mg PO Q6H PRN Pain 12/27/22 08/28/23 History (Tylenol) prednisone 2.5 mg tablet 2.5 mg PO DAILY 12/27/22 08/28/23 History apixaban 5 mg tablet (Eliquis) 5 mg PO Q12H #60 tabs 01/07/23 08/28/23 Rx alendronate 70 mg tablet (Fosamax) 70 mg PO WEEKLY #12 tabs 01/10/23 08/28/23 Rx levothyroxine 112 mcg capsule 112 mcg PO DAILY #90 caps 01/24/23 08/28/23 Rx metoprolol succinate 50 mg 50 mg PO DAILY 03/22/23 08/28/23 History tablet,extended release 24 hr diltiazem HCl 300 mg 300 mg PO QAM #30 caps 05/18/23 10/04/23 Rx capsule,extended release 24 hr furosemide 40 mg tablet 40 mg PO BID #30 tabs 04/11/23 08/28/23 Rx pantoprazole 40 mg tablet,delayed 40 mg PO QAM #30 tabs 04/11/23 08/28/23 Rx release (Protonix) potassium chloride 20 mEq 20 meq PO BIDWM #60 tabs 04/11/23 08/28/23 Rx tablet,extended release(part/cryst) sacubitril 24 mg-valsartan 26 mg 1 tablet PO BID 04/16/23 08/28/23 History tablet (Entresto) abatacept 125 mg/mL subcutaneous 125 mg subcut WEEKLY 05/23/23 08/28/23 History auto-injector (Orencia ClickJect) duloxetine 20 mg capsule,delayed 20 mg PO DAILY #90 caps 05/24/23 08/28/23 Rx release pravastatin 80 mg tablet 80 mg PO HS #90 tabs 06/17/23 08/28/23 Rx cholestyramine-aspartame 4 gram 4 g PO DAILY #60 ea 06/19/23 08/28/23 Rx oral powder for susp in a packet (Cholestyramine Light) tramadol 50 mg tablet 50 mg PO Q8H PRN pain #90 tabs 08/13/23 08/28/23 Rx metoprolol succinate 100 mg 100 mg PO DAILY 08/28/23 08/28/23 History tablet,extended release 24 hr nitrofurantoin 100 mg capsule 100 mg PO Q12H 08/28/23 08/28/23 History Patient hx anesthesia problems: none Family hx anesthesia problems: none Results Review: All pre-operative results and documents have been reviewed as part of the pre-operative evaluation. [facility] Past Medical History Medical History Chronic anemia Chronic anticoagulation Chronic diarrhea Chronic diastolic congestive heart failure Echocardiogram in 06/2022 showed an EF 50 to 55% and diastolic dysfunction. Chronic kidney disease, stage 3 Chronic respiratory failure with hypoxia, on home oxygen therapy On 2 to 4 L nasal cannula. Deep venous thrombosis (2004) Degenerative joint disease Depression with anxiety Diverticulosis Essential hypertension Fecal occult blood test positive Hearing loss History of COVID-19 Hyperlipidemia Hypothyroidism Interstitial lung disease Morbid obesity Nonspecific interstitial pneumonitis Obstructive sleep apnea on CPAP Osteoporosis Paroxysmal atrial fibrillation Post menopausal syndrome Pre-diabetes Pulmonary embolism (2004) Rheumatoid arthritis Shingles Stress incontinence Vitamin D deficiency Surgical Hist
--- NOTE | 2023-09-06 11:47 | SUR.OPER ---
EGD START 1125, END 1129 COLONOSCOPY START 1135, END 1146
[2023-09-06 11:50] VITALS: BP 93/45; PULSE 107; RESP 27; O2SAT 97
[2023-09-06 12:00] VITALS: BP 114/67; PULSE 116; RESP 25; O2SAT 100
[2023-09-06 12:10] VITALS: BP 121/66; PULSE 104; RESP 24; O2SAT 100
== END 2023-09-06 12:27 | disposition home or self-care (01) ==
PROVIDERS: PCP Family Medicine; Visit Provider Internal Medicine Gastroenterology
PROC: 0DJ08ZZ Inspection of Upper Intestinal Tract, Via Natural or Artificial Opening Endoscopic (ICD-10-PCS; CPT 43235; principal; 2023-09-06 11:00)
DX: D50.9 Iron deficiency anemia, unspecified (principal); K57.30 Diverticulosis of large intestine without perforation or abscess without bleeding; D12.2 Benign neoplasm of ascending colon; K64.8 Other hemorrhoids; R19.5 Other fecal abnormalities; K21.9 Gastro-esophageal reflux disease without esophagitis; I13.0 Hypertensive heart and chronic kidney disease with heart failure and stage 1 through stage 4 chronic kidney disease, or unspecified chronic kidney disease; I50.32 Chronic diastolic (congestive) heart failure; N18.30 Chronic kidney disease, stage 3 unspecified; J96.11 Chronic respiratory failure with hypoxia; Z99.81 Dependence on supplemental oxygen; F41.8 Other specified anxiety disorders; E78.5 Hyperlipidemia, unspecified; E03.9 Hypothyroidism, unspecified; I48.0 Paroxysmal atrial fibrillation; R73.03 Prediabetes; J84.9 Interstitial pulmonary disease, unspecified; G47.33 Obstructive sleep apnea (adult) (pediatric); M06.9 Rheumatoid arthritis, unspecified; E55.9 Vitamin D deficiency, unspecified; D64.9 Anemia, unspecified; Z79.01 Long term (current) use of anticoagulants; Z86.711 Personal history of pulmonary embolism; Z86.718 Personal history of other venous thrombosis and embolism; M81.0 Age-related osteoporosis without current pathological fracture; E66.01 Morbid (severe) obesity due to excess calories; Z68.41 Body mass index [BMI] 40.0-44.9, adult
CPT/HCPCS: 45385; 43239; 88305; J2001; J2704; J7120

== ENCOUNTER 2023-10-03 01:25 | Day surgery (SDC) | payer MEDICARE, SELFPAY ==
[2023-10-01 15:05] VITALS: BMI 42.1
--- NOTE | 2023-10-01 15:19 | PC.NURSE ---
Report to the Outpatient Waiting Room, entrance under the green pavilion located off [facility], at time __1200 on date _10/03/23 . Planned Procedure Time: ___2PM . Time changes happen often and if your time is changed the preop area will call you the afternoon before. - You and your visitor will be asked to self-screen and do not enter if you have any COVID symptoms. - A mask is optional within the hospital at this time. Patients may have clear liquids (water, carbonated beverages, clear teas, apple juice) until 3 hours prior to surgery (1100 AM) with a maximum of 20 ounces. - No food from midnight until time of surgery - Infants may have breast milk until 4 hours before surgery, infant formula 6 hours prior to surgery. - Children will be allowed to drink immediately following surgery. If applicable, please bring a bottle or sippy cup to assist with drinking. Juice, water, soda, and popsicles are readily available. For infants on formula, please bring formula the day of surgery. Pacifiers are allowed. Take the following medications with a SIP of water the morning of surgery: _DILTIAZEM, DULOXETINE, LEVOTHYROXINE, METOPROLOL, PREDNISONE, & TYLENOL OR TRAMADOL IF NEEDED_ DO NOT STOP ANY OF YOUR OTHER PRESCRIPTION MEDICATIONS PRIOR TO SURGERY ?EXCEPT THE FOLLOWING Medications to discontinue per physician __DAUGHTER STATES WILKES LAST TAKEN 09/30/23 Date to take last dose Please no make-up, nail czech, hairspray, perfume, deodorant, or body powder the day of surgery. No jewelry (including any body piercings) or valuables the day of surgery, leave them at home. Please take a shower or bath the night before, or the morning of, surgery with an antibacterial soap. Wear comfortable, loose fitting clothing. Children are encouraged to wear pajamas. - Jewelry must be removed prior to entering the operating room. Rings and piercings that are not removed may be cut off. - The hospital will not accept responsibility for valuables. - Please leave all valuables, including medications, at home the day of surgery. If you are going home after surgery, a licensed milk truck driver must drive you home. - NO public transportation without another adult if you receive anesthesia. - We recommend that an adult stay with you for 24 hours following discharge. - We also recommend that you do not drive, make important decision, drink alcoholic beverages, or take any drugs that were not prescribed by your health care provider for at least 24 hours after your discharge time. For Pediatric surgeries, we recommend two adults accompany the child home. Follow any additional instructions given to you from your surgeon. If you or anyone in your household have experienced Covid symptoms in the past week, please notify your surgeon or the nurse liaison at the phone number below for possible testing. Telephone instructions given to _PT'S DAUGHTER - BRIAN (POA)_and asked if any additional questions and then verbalized understanding. Patient advised to call surgeon office or pre surgery nurse liaison [phone] if any additional questions.
[2023-10-03] VITALS (8 sets, daily range): BP systolic 105–130; BP diastolic 48–63; PULSE 54–58; RESP 12–16; TEMP 36.3; O2SAT 94–100
--- NOTE | 2023-10-03 06:24 | WPDHPUPDATE1 ---
History and Physical Update Update Date/Time: 10/03/23 06:24 History and Physical has been reviewed, including an updated exam of the patient. There are NO changes in the patient's condition. Risks, benefits, and alternatives have been discussed and questions answered. Patient agrees to proceed with procedure. Plan: Cystoscopy, placement suprapubic cathter
[2023-10-03 13:02] LABS: INR 1.1; Prothrombin Time 14.2 Seconds (11.1-14.7)
[2023-10-03 13:03] LABS: Partial Thromboplastin Time 24.2 SECONDS (22.3-36.8)
--- NOTE | 2023-10-03 13:56 | WPDANESEPPF ---
Anes - Initial Pre Proc Eval Procedure: Operation Date: 10/03/23 14:00 Proposed Procedures p Cystoscopy,Insertion Suprapubic Catheter - Noam Jarrett MD Date/Time: 10/03/23 13:56 Surgeon: Noam Jarrett MD Pre Op Diagnosis: retention Patient Data Age: 73 Gender: F Height: 1.57 m Weight: 104.3 kg Last Vital Signs Temp 97.3 F L 10/03/23 12:56 Pulse 58 L 10/03/23 12:56 Resp 14 10/03/23 12:56 BP 105/49 L 10/03/23 12:56 Pulse Ox 94 10/03/23 12:56 O2 Del Method Nasal Cannula 10/03/23 12:56 O2 Flow Rate 3 10/03/23 12:56 Allergies Allergy/AdvReac Type Severity Reaction Status Date / Time No Known Allergies Allergy Verified 10/03/23 13:06 Home Medications Medication Instructions Recorded Confirmed Type Calcium 600-D3 Plus (mag-zinc) 1 tablet PO BID 07/21/22 10/01/23 History cholecalciferol (vitamin D3) 25 2,000 mcg PO DAILY 07/21/22 10/01/23 History mcg (1,000 unit) capsule cyanocobalamin (vitamin B-12) 1,000 mcg PO DAILY 07/21/22 10/01/23 History 1,000 mcg tablet hydroxychloroquine 200 mg tablet 200 mg PO BID 07/21/22 10/01/23 History acetaminophen 325 mg capsule 650 mg PO Q6H PRN Pain 12/27/22 10/01/23 History (Tylenol) prednisone 2.5 mg tablet 2.5 mg PO DAILY 12/27/22 10/03/23 History apixaban 5 mg tablet (Eliquis) 5 mg PO Q12H #60 tabs 01/07/23 10/01/23 Rx levothyroxine 112 mcg capsule 112 mcg PO DAILY #90 caps 01/24/23 10/03/23 Rx metoprolol succinate 50 mg 50 mg PO DAILY 03/22/23 10/03/23 History tablet,extended release 24 hr diltiazem HCl 300 mg 300 mg PO QAM #30 caps 04/11/23 10/03/23 Rx capsule,extended release 24 hr furosemide 40 mg tablet 40 mg PO BID #30 tabs 04/11/23 10/01/23 Rx pantoprazole 40 mg tablet,delayed 40 mg PO QAM #30 tabs 04/11/23 10/01/23 Rx release (Protonix) sacubitril 24 mg-valsartan 26 mg 1 tablet PO BID 04/16/23 10/01/23 History tablet (Entresto) abatacept 125 mg/mL subcutaneous 125 mg subcut WEEKLY 05/23/23 10/01/23 History auto-injector (Orencia ClickJect) duloxetine 20 mg capsule,delayed 20 mg PO DAILY #90 caps 05/24/23 10/03/23 Rx release pravastatin 80 mg tablet 80 mg PO HS #90 tabs 06/17/23 10/01/23 Rx cholestyramine-aspartame 4 gram 4 g PO DAILY #60 ea 06/19/23 10/01/23 Rx oral powder for susp in a packet (Cholestyramine Light) tramadol 50 mg tablet 50 mg PO Q8H PRN pain #90 tabs 08/13/23 10/01/23 Rx metoprolol succinate 100 mg 100 mg PO DAILY 08/28/23 10/01/23 History tablet,extended release 24 hr alendronate 70 mg tablet (Fosamax) 70 mg PO WEEKLY #12 tabs 09/24/23 10/01/23 Rx potassium chloride 20 mEq 20 meq PO BID 10/01/23 10/01/23 History tablet,extended release(part/cryst) Laboratory Tests 10/03/23 12:27 PT 14.2 Seconds (11.1-14.7) INR 1.1 APTT 24.2 SECONDS (22.3-36.8) Patient hx anesthesia problems: none Family hx anesthesia problems: none Results Review: All pre-operative results and documents have been reviewed as part of the pre-operative evaluation. [facility] Past Medical History Medical History Chronic anemia Chronic anticoagulation Chronic diarrhea Chronic diastolic congestive heart failure Echocardiogram in 06/2022 showed an EF 50 to 55% and diastolic dysfunction. Chronic kidney disease, stage 3 Chronic respiratory failure with hypoxia, on home oxygen therapy On 2 to 4 L nasal cannula. Deep venous thrombosis (2004) Degenerative joint disease Depression with anxiety Diverticulosis Essential hypertension Fecal occult blood test positive Hearing loss History of COVID-19 Hyperlipidemia Hypothyroidism Interstitial lung disease Morbid obesity Nonspecific interstitial pneumonitis Obstructive sleep apnea on CPAP Osteoporosis Paroxysmal atrial fibrillation Post menopausal syndrome Pre-diabetes Pulmonary embolism (2004) Rheumatoid arthritis Shingles Stress incontinence Vitamin D deficiency
[2023-10-03] MEDS: ceFAZolin 2 GM/D5W 50 ML 2 GM/50 ML BAG IVPB (14:22)
[2023-10-03] MEDS: LIDOCAINE HCL 2% GEL UROJET 10 ML PKG MUCOUS MEM (14:40)
[2023-10-03] MEDS: LIDOCAINE HCL 1% LOCAL INJ 20 ML VIAL 10 ML INFILTRATE (14:41)
[2023-10-03] MEDS: LACTATED RINGERS 1,000 ML 30 ML IV CONT (15:06)
--- NOTE | 2023-10-03 15:11 | P.OP_ITS ---
Procedure Note - Detailed Date of Procedure 10/03/23 Pre-op Diagnosis Urinary retention, atonic bladder Post-op Diagnosis Same Procedure Performed Cystoscopy, placement suprapubic catheter Surgeon Noam Jarrett MD Anesthesia MAC Description of Procedure Patient is brought to the operative suite where he has prepped and draped in routine sterile fashion while in a dorsal lithotomy position. Cystoscopy is undertaken with a 21 F rigid cystoscope. He has no urethral strictures with moderate lateral lobe hyperplasia of the prostate. Bladder mucosa is normal with only minimal hyperemia in the posterior wall consistent with catheter cystitis. There is no intravesical foreign body or neoplasm. I filled his bladder with saline and placed a spinal needle through the dome of the bladder 1035 in glidewire was advanced through that and grasped with the cystoscope. I dilated the suprapubic tract with Amplatz dilators to from 8 F to 22 F. I then placed an 16F Councill tip catheter through the dome. The suprapubic catheter secured with a 3-0 nylon. Scopes and wires removed. Blood loss was approxim ately 5 cc. Drains Yes Packing No Pathology None sent
== END 2023-10-03 17:05 | disposition home or self-care (01) ==
PROVIDERS: Anesthesiology; PCP Family Medicine; Visit Provider Urology
PROC: 0T9B30Z Drainage of Bladder with Drainage Device, Percutaneous Approach (ICD-10-PCS; CPT 51102; principal; 2023-10-03 14:00)
DX: N31.2 Flaccid neuropathic bladder, not elsewhere classified (principal); R33.8 Other retention of urine; D64.9 Anemia, unspecified; I11.0 Hypertensive heart disease with heart failure; K52.9 Noninfective gastroenteritis and colitis, unspecified; R73.03 Prediabetes; J96.11 Chronic respiratory failure with hypoxia; I50.32 Chronic diastolic (congestive) heart failure; I13.0 Hypertensive heart and chronic kidney disease with heart failure and stage 1 through stage 4 chronic kidney disease, or unspecified chronic kidney disease; N18.30 Chronic kidney disease, stage 3 unspecified; Z99.81 Dependence on supplemental oxygen; F41.8 Other specified anxiety disorders; K57.90 Diverticulosis of intestine, part unspecified, without perforation or abscess without bleeding; E78.5 Hyperlipidemia, unspecified; E03.9 Hypothyroidism, unspecified; J84.9 Interstitial pulmonary disease, unspecified; G47.33 Obstructive sleep apnea (adult) (pediatric); I48.0 Paroxysmal atrial fibrillation; E55.9 Vitamin D deficiency, unspecified; E66.9 Obesity, unspecified; Z68.41 Body mass index [BMI] 40.0-44.9, adult; Z79.01 Long term (current) use of anticoagulants; Z79.891 Long term (current) use of opiate analgesic; Z99.89 Dependence on other enabling machines and devices; Z86.711 Personal history of pulmonary embolism; Z82.49 Family history of ischemic heart disease and other diseases of the circulatory system; Z86.718 Personal history of other venous thrombosis and embolism
CPT/HCPCS: 51040; 36415; 85610; 85730; C1726; C1769; J0690; J2704; J3010; J7120

== ENCOUNTER 2023-11-11 07:27 | Outpatient (CLI) | payer MEDICARE, SELFPAY ==
[2023-11-11 08:34] LABS: Anion Gap 6 mmol/L (8-16); Blood Urea Nitrogen 30 mg/dL (7-17); Calcium 9.9 mg/dL (8.4-10.2); Carbon Dioxide 33 mmol/L (22-30); Chloride 101 mmol/L (98-107); Estimated Glomerular Filt Rate 48; Glucose 98 mg/dL (65-110); Phosphorus 3.3 mg/dL (2.5-4.5); Potassium 3.9 mmol/L (3.4-5.0); Sodium 140 mmol/L (137-145)
[2023-11-11 08:35] LABS: Alanine Aminotransferase 10 U/L (6-35); Albumin Level 4.1 g/dL (3.5-5.1); Alkaline Phosphatase 44 U/L (38-126); Anion Gap 5 mmol/L (8-16); Aspartate Amino Transferase 21 U/L (14-36); Bilirubin,Total 0.4 mg/dL (0.2-1.3); Blood Urea Nitrogen 31 mg/dL (7-17); Calcium 9.8 mg/dL (8.4-10.2); Carbon Dioxide 33 mmol/L (22-30); Chloride 101 mmol/L (98-107); Estimated Glomerular Filt Rate 54; Glucose 98 mg/dL (65-110); Potassium 3.9 mmol/L (3.4-5.0); Sodium 139 mmol/L (137-145)
[2023-11-11 09:17] LABS: Creatinine Urine 82.5 mg/dL; Total Protein Urine Random 80 mg/dL; Ur Ttl Prot Creatinine Ratio 0.97 mg/mg (0-0.20)
[2023-11-11 17:21] LABS: Hemoglobin A1C 4.9 % (<5.7)
== END 2023-11-11 07:28 | disposition home or self-care (01) ==
PROVIDERS: PCP Family Medicine; Visit Provider Internal Medicine Nephrology
DX: E03.9 Hypothyroidism, unspecified (principal); I12.9 Hypertensive chronic kidney disease with stage 1 through stage 4 chronic kidney disease, or unspecified chronic kidney disease; N18.32 Chronic kidney disease, stage 3b; R73.03 Prediabetes
CPT/HCPCS: 36415; 80053; 80069; 82570; 83036; 84156; 84443

== ENCOUNTER 2024-03-16 07:52 | Outpatient (CLI) | payer MEDICARE, SELFPAY ==
[2024-03-16 08:48] LABS: Alanine Aminotransferase 9 U/L (6-35); Albumin Level 4.1 g/dL (3.5-5.1); Alkaline Phosphatase 43 U/L (38-126); Anion Gap 2 mmol/L (4-12); Aspartate Amino Transferase 19 U/L (14-36); Bilirubin,Total 0.3 mg/dL (0.2-1.3); Blood Urea Nitrogen 29 mg/dL (7-17); Calcium 10.1 mg/dL (8.4-10.2); Carbon Dioxide 31 mmol/L (22-30); Chloride 100 mmol/L (98-107); Cholesterol 156 mg/dL (0-200); Estimated Glomerular Filt Rate 48; Glucose 87 mg/dL (65-110); HDL Direct 83 mg/dL; Sodium 133 mmol/L (137-145); Triglycerides 102 mg/dL (<150)
[2024-03-16 08:51] LABS: Phosphorus 3.1 mg/dL (2.5-4.5)
[2024-03-16 08:57] LABS: Parathyroid Intact 53.7 pg/mL (7.5-53.5)
[2024-03-16 08:59] LABS: LDL Cholesterol Direct 58 mg/dL
[2024-03-16 09:11] LABS: Vitamin D 25 Hydroxy 40.1 ng/mL
[2024-03-16 09:23] LABS: Hematocrit 32.3 % (37.0-47.0); Hemoglobin 9.7 g/dL (12.0-15.0); Mean Corpuscular Hemoglobin 30.3 pg (26-34); Mean Corpuscular Volume 100.9 fl (80-100); Mean Platelet Volume 10.4 fl (7.4-10.4); Platelet Count Result 229 k/mm3 (150-375); Red Cell Distribution Width 12.9 % (11.5-14.5); White Blood Count 8.9 K/mm3 (4.5-10.0)
[2024-03-16 09:34] LABS: Total Protein Urine Random 18 mg/dL; Ur Ttl Prot Creatinine Ratio 1.06 mg/mg (0-0.20)
== END 2024-03-16 07:53 | disposition home or self-care (01) ==
LOC: ANHLAB 07:58
PROVIDERS: PCP Family Medicine; Referring Provider Internal Medicine Nephrology; Visit Provider Family Medicine
DX: I11.0 Hypertensive heart disease with heart failure (principal); I50.33 Acute on chronic diastolic (congestive) heart failure; I12.9 Hypertensive chronic kidney disease with stage 1 through stage 4 chronic kidney disease, or unspecified chronic kidney disease; N18.31 Chronic kidney disease, stage 3a; K52.9 Noninfective gastroenteritis and colitis, unspecified; E78.5 Hyperlipidemia, unspecified; E55.9 Vitamin D deficiency, unspecified; N25.81 Secondary hyperparathyroidism of renal origin; M06.9 Rheumatoid arthritis, unspecified
CPT/HCPCS: 36415; 80053; 80061; 82306; 82570; 83970; 84100; 84156; 84443; 85027

== ENCOUNTER 2024-03-26 08:32 | Outpatient (CLI) | payer MEDICARE, SELFPAY ==
[2024-03-26 09:31] LABS: Magnesium 1.4 mg/dL (1.6-2.3)
[2024-03-26 09:35] LABS: Add Urine Microscopic? YES; Appearance Urine Turbid (Clear); Bacteria Urine 2+ /hpf; Bilirubin Urine Negative (Negative); Blood Urine 3+ (Negative); Color Urine Yellow (Yellow); Glucose Urine UA Negative (Negative); Ketones Urine Negative (Negative); Leukocyte Esterase Ur 3+ LEU/UL (Negative); Need Manual Microscopic Reviewed; Nitrate Urine Positive (Negative); Protein Urine 1+ mg/dL (Negative); RBC Urine >100 /hpf (0-2); Squamous Epithelial Cell Urine None Seen /hpf (Few); Urobilinogen Urine 0.2 mg/dL (<2.0); WBC Urine >100 /hpf (0-3)
[2024-03-26 09:42] LABS: Iron 83 ug/dL (37-170)
[2024-03-26 09:53] LABS: Percent Iron Saturation 29 % (20-50)
[2024-03-26 10:15] LABS: Vitamin D 25 Hydroxy 46.2 ng/mL
== END 2024-03-26 08:33 | disposition home or self-care (01) ==
LOC: ANHLAB 08:39
PROVIDERS: PCP Family Medicine; Visit Provider Family Medicine
DX: R31.9 Hematuria, unspecified (principal); I50.82 Biventricular heart failure; I50.9 Heart failure, unspecified; D64.9 Anemia, unspecified; G60.9 Hereditary and idiopathic neuropathy, unspecified; J96.00 Acute respiratory failure, unspecified whether with hypoxia or hypercapnia; N25.81 Secondary hyperparathyroidism of renal origin; R39.9 Unspecified symptoms and signs involving the genitourinary system; N18.31 Chronic kidney disease, stage 3a; I48.91 Unspecified atrial fibrillation; N31.2 Flaccid neuropathic bladder, not elsewhere classified; I10 Essential (primary) hypertension; L65.9 Nonscarring hair loss, unspecified
CPT/HCPCS: 36415; 81001; 82306; 82728; 83540; 83550; 83735; 87077; 87086; 87088; 87181

== ENCOUNTER 2024-04-10 14:57 | Emergency (ER) | payer MEDICARE, SELFPAY ==
[2024-04-10 15:03] VITALS: BP 150/74; PULSE 63; RESP 19; TEMP 36.6; O2SAT 97
--- NOTE | 2024-04-10 16:42 | ED.FEMALEGU ---
HPI - Female Genitourinary General Chief complaint: Urogenital-Female Stated complaint: hematuria Time Seen by Provider: 04/10/24 16:53 Focused HPI: 73 y/o F with a chronic suprapubic indwelling Paige catheter since August of 2023 presents to emergency department for hematuria since February of 2024 and suprapubic abdominal pain that started today. patient's daughter is at bedside to assist with history. States patient has had some blood in her urine since February but the past 3 days it has become a lot darker, [employer] in color. Today around 10:30 a.m. the patient's catheter stopped draining and they noticed clots and this catheter tubing. States a few hours later she began developing suprapubic pain, shortly after that the bladder began to drain again in the pain has resolved. She states she was having some leakage out of her urethra while her catheter was clogged which is abnormal for her. She reported some dysuria during that time. States she gets her suprapubic catheter changed by her urologist office every 30 days. Her last catheter change was the end of February. She has an appointment this week to have her catheter changed. Urologist is Dr. Jarrett. she is anticoagulated on Eliquis for AFib. She denies fever, vomiting. She is endorsing some nausea. GENERAL: Well-appearing, well-nourished, and in no acute distress. HEAD: Normocephalic, atraumatic. CHEST: Clear to auscultation. ?No respiratory distress. ABD: Abdomen is soft and nontender. Suprapubic catheter and placed on no signs of infection. Paige bag with local colored urine, hematuria, clots in tubing. Seems to be actively draining. HEART: Regular rate and rhythm.? NEURO: ?Alert and oriented x3. Patient screened in triage and initial orders placed.? ?Additional care and disposition to be based upon?diagnostic testing and treatment. Related Data Home Medications Medication Instructions Recorded Confirmed Calcium 600-D3 Plus (mag-zinc) 1 tablet PO BID 07/21/22 04/09/24 cholecalciferol (vitamin D3) 25 2,000 mcg PO DAILY 07/21/22 04/09/24 mcg (1,000 unit) capsule cyanocobalamin (vitamin B-12) 1,000 mcg PO DAILY 07/21/22 04/09/24 1,000 mcg tablet hydroxychloroquine 200 mg tablet 200 mg PO BID 07/21/22 04/09/24 acetaminophen 325 mg capsule 650 mg PO Q6H PRN Pain 12/27/22 04/09/24 (Tylenol) metoprolol succinate 50 mg 50 mg PO DAILY 03/22/23 04/09/24 tablet,extended release 24 hr sacubitril 24 mg-valsartan 26 mg 1 tablet PO BID 04/16/23 04/09/24 tablet (Entresto) abatacept 125 mg/mL subcutaneous 125 mg subcut WEEKLY 05/23/23 04/09/24 auto-injector (Orencia ClickJect) metoprolol succinate 100 mg 100 mg PO DAILY 08/28/23 04/09/24 tablet,extended release 24 hr prednisone 20 mg tablet 2.5 mg PO DAILY 03/26/24 04/09/24 Allergies Allergy/AdvReac Type Severity Reaction Status Date / Time No Known Allergies Allergy Verified 04/09/24 08:44 [facility] Past Medical History Medical History Chronic anemia Chronic anticoagulation Chronic diarrhea Chronic diastolic congestive heart failure Echocardiogram in 06/2022 showed an EF 50 to 55% and diastolic dysfunction. Chronic kidney disease, stage 3 Chronic respiratory failure with hypoxia, on home oxygen therapy On 2 to 4 L nasal cannula. Deep venous thrombosis (2004) Degenerative joint disease Depression with anxiety Diverticulosis Essential hypertension Fecal occult blood test positive Hearing loss History of COVID-19 Hyperlipidemia Hypothyroidism Interstitial lung disease Morbid obesity Nonspecific interstitial pneumonitis Obstructive sleep apnea on CPAP Osteoporosis Paroxysmal atrial fibrillation Post menopausal syndrome Pre-diabetes Pulmonary embolism (2004) Rheumatoid arthritis Shingles Stress incontinence Vitamin D deficiency Surgical History Surgical History History of arthroscopy of right k
--- NOTE | 2024-04-10 16:54 | ED.FEMALEGU ---
HPI - Female Genitourinary General Chief complaint: Urogenital-Female Stated complaint: hematuria Time Seen by Provider: 04/10/24 16:53 Source: patient Mode of arrival: ambulatory Limitations: no limitations History of Present Illness HPI Narrative: 73 YEARS OLD WHITE FEMALE CAME TO THE ED BY PRIVATE CAR COMPLAINING OF INTERMITTENT DARK BLOODY URINE COMING THROUGH THE SUPRAPUBIC CATHETER SINCE FEBRUARY 2024. HAS BEEN STEADY OVER THE LAST 3 DAYS. THIS MORNING PATIENT WENT TO SEE HER UROLOGIST AND HAD SUDDEN ONSET OF SEVERE BURNING URETHRAL PAIN WITH URINATION. PATIENT NORMALLY DOES NOT URINATE THROUGH THE URETHRA. IN THE ER THE CATHETER IS NOT DRAINING AND THE URINE IN THE BAG IS DARK RED. PATIENT IS TELLING ME THAT SHE BEEN HAVING COLD CHILLS, NAUSEA, FEELING LIKE SHE IS READY TO PASS OUT AND CLAMMY SKIN BUT DOES NOT HAVE IT RIGHT NOW. PATIENT ON ELIQUIS FOR DEEP VEIN THROMBOSIS AND SUPRAPUBIC CATHETER WAS PLACED AUGUST 2023 FOR URINARY RETENTION LAST CATHETER CHANGE WAS 27 DAYS AGO SHE IS SCHEDULED FOR CATHETER CHANGE SOON. PATIENT ON CHRONIC 4 L OXYGEN BY NASAL CANNULA FOR INTERSTITIAL PULMONARY FIBROSIS Related Data Home Medications Medication Instructions Recorded Confirmed Calcium 600-D3 Plus (mag-zinc) 1 tablet PO BID 07/21/22 04/09/24 cholecalciferol (vitamin D3) 25 2,000 mcg PO DAILY 07/21/22 04/09/24 mcg (1,000 unit) capsule cyanocobalamin (vitamin B-12) 1,000 mcg PO DAILY 07/21/22 04/09/24 1,000 mcg tablet hydroxychloroquine 200 mg tablet 200 mg PO BID 07/21/22 04/09/24 acetaminophen 325 mg capsule 650 mg PO Q6H PRN Pain 12/27/22 04/09/24 (Tylenol) metoprolol succinate 50 mg 50 mg PO DAILY 03/22/23 04/09/24 tablet,extended release 24 hr sacubitril 24 mg-valsartan 26 mg 1 tablet PO BID 04/16/23 04/09/24 tablet (Entresto) abatacept 125 mg/mL subcutaneous 125 mg subcut WEEKLY 05/23/23 04/09/24 auto-injector (Orencia ClickJect) metoprolol succinate 100 mg 100 mg PO DAILY 08/28/23 04/09/24 tablet,extended release 24 hr prednisone 20 mg tablet 2.5 mg PO DAILY 03/26/24 04/09/24 Allergies Allergy/AdvReac Type Severity Reaction Status Date / Time No Known Allergies Allergy Verified 04/09/24 08:44 Review of Systems Review of Systems: All systems reviewed & are unremarkable except as noted in HPI and below PMFSH Past Medical History Medical History Chronic anemia Chronic anticoagulation Chronic diarrhea Chronic diastolic congestive heart failure Echocardiogram in 06/2022 showed an EF 50 to 55% and diastolic dysfunction. Chronic kidney disease, stage 3 Chronic respiratory failure with hypoxia, on home oxygen therapy On 2 to 4 L nasal cannula. Deep venous thrombosis (2004) Degenerative joint disease Depression with anxiety Diverticulosis Essential hypertension Fecal occult blood test positive Hearing loss History of COVID-19 Hyperlipidemia Hypothyroidism Interstitial lung disease Morbid obesity Nonspecific interstitial pneumonitis Obstructive sleep apnea on CPAP Osteoporosis Paroxysmal atrial fibrillation Post menopausal syndrome Pre-diabetes Pulmonary embolism (2004) Rheumatoid arthritis Shingles Stress incontinence Vitamin D deficiency Surgical History Surgical History History of arthroscopy of right knee History of bilateral knee replacement History of cardiac catheterization History of section History of cholecystectomy History of parathyroidectomy History of tonsillectomy and adenoidectomy Family History Family History Mother Hypertension Father Pulmonary emboli Rheumatoid arthritis Mother , at 91 due to old age Hypertension Father , at 58 due to PE Family history of rheumatoid arthritis Family history of pulmonary embolism Grandparent Cerebrovascular accident Other
[2024-04-10 17:50] LABS: Basophils Percent Auto 0.5 % (0.2-1.2); Eosinophils Absolute Auto 0.2 K/mm3 (0-0.3); Eosinophils Percent Auto 1.8 % (0-4.4); Hematocrit 29.2 % (37.0-47.0); Immature Granulocyte Absolute 0.02 K/mm3 (0.00-0.031); Immature Granulocyte Percent A 0.2 % (0-0.5); Lymphocytes Absolute Auto 0.72 K/mm3 (0.9-3.2); Lymphocytes Percent Auto 8.6 % (18.3-44.2); Mean Corpuscular HGB Conc 30.8 g/dl (32-36); Mean Corpuscular Hemoglobin 30.5 pg (26-34); Mean Platelet Volume 9.6 fl (7.4-10.4); Monocytes Absolute Auto 0.7 K/mm3 (0.1-0.6); Monocytes Percent Auto 7.9 % (2.6-8.5); Neutrophils Absolute Auto 6.8 K/mm3 (1.3-6.7); Platelet Count Result 205 k/mm3 (150-375); Red Blood Count 2.95 M/mm3 (4.2-5.4); Red Cell Distribution Width 12.6 % (11.5-14.5); White Blood Count 8.4 K/mm3 (4.5-10.0)
[2024-04-10 17:58] LABS: Alanine Aminotransferase 9 U/L (6-35); Albumin Level 4.3 g/dL (3.5-5.1); Alkaline Phosphatase 40 U/L (38-126); Anion Gap 6 mmol/L (4-12); Aspartate Amino Transferase 18 U/L (14-36); Bilirubin,Total 0.4 mg/dL (0.2-1.3); Blood Urea Nitrogen 24 mg/dL (7-17); Calcium 10.2 mg/dL (8.4-10.2); Carbon Dioxide 32 mmol/L (22-30); Chloride 98 mmol/L (98-107); Estimated CRCL calculation 50 ml/min; Estimated Glomerular Filt Rate 54; Glucose 118 mg/dL (65-110); Potassium 4.5 mmol/L (3.4-5.0); Sodium 136 mmol/L (137-145)
[2024-04-10 18:03] LABS: INR 1.1; Prothrombin Time 14.5 Seconds (11.1-14.7)
[2024-04-10 18:04] LABS: Partial Thromboplastin Time 24.4 Seconds (22.3-36.8)
[2024-04-10 18:46] LABS: Appearance Urine Cloudy (Clear); Bacteria Urine 1+ /hpf; Bilirubin Urine Negative (Negative); Blood Urine 3+ (Negative); Color Urine Orange (Yellow); Glucose Urine UA Negative (Negative); Ketones Urine Negative (Negative); Leukocyte Esterase Ur 2+ LEU/UL (Negative); Need Manual Microscopic Reviewed; Nitrate Urine Negative (Negative); Protein Urine 2+ mg/dL (Negative); RBC Urine >100 /hpf (0-2); Specific Grav Ur 1.007 (1.001-1.035); Squamous Epithelial Cell Urine None Seen /hpf (Few); Urobilinogen Urine 0.2 mg/dL (<2.0); WBC Urine 21-50 /hpf (0-3); pH Urine 5.5 (5.0-9.0)
[2024-04-10 18:48] LABS: Add Urine Microscopic? YES
[2024-04-10 19:50] VITALS: BP 169/59; PULSE 57; RESP 20; O2SAT 100
== END 2024-04-10 20:30 | disposition home or self-care (01) ==
PROVIDERS: Physician Assistant; Emergency Provider Emergency Medicine; PCP Family Medicine
DX: T83.518A Infection and inflammatory reaction due to other urinary catheter, initial encounter (principal); T83.098A Other mechanical complication of other urinary catheter, initial encounter; I13.0 Hypertensive heart and chronic kidney disease with heart failure and stage 1 through stage 4 chronic kidney disease, or unspecified chronic kidney disease; N18.30 Chronic kidney disease, stage 3 unspecified; I50.32 Chronic diastolic (congestive) heart failure; D64.9 Anemia, unspecified; E78.5 Hyperlipidemia, unspecified; E03.9 Hypothyroidism, unspecified; E55.9 Vitamin D deficiency, unspecified; E66.01 Morbid (severe) obesity due to excess calories; Z68.41 Body mass index [BMI] 40.0-44.9, adult; J84.9 Interstitial pulmonary disease, unspecified; I48.0 Paroxysmal atrial fibrillation; M06.9 Rheumatoid arthritis, unspecified; Z96.653 Presence of artificial knee joint, bilateral; Z86.711 Personal history of pulmonary embolism; Z87.891 Personal history of nicotine dependence; Z86.718 Personal history of other venous thrombosis and embolism; Z86.16 Personal history of COVID-19; Z90.49 Acquired absence of other specified parts of digestive tract; Z90.89 Acquired absence of other organs; Z79.01 Long term (current) use of anticoagulants
CPT/HCPCS: 36415; 51705; 80053; 81001; 85025; 85610; 85730; 87086; 87088; 96365; 99284; J0696

== ENCOUNTER 2024-07-28 07:29 | Outpatient (CLI) | payer MEDICARE, SELFPAY ==
[2024-07-28 08:51] LABS: Albumin Level 4.2 g/dL (3.5-5.1); Anion Gap 9 mmol/L (4-12); Blood Urea Nitrogen 32 mg/dL (7-17); Calcium 9.8 mg/dL (8.4-10.2); Carbon Dioxide 31 mmol/L (22-30); Chloride 97 mmol/L (98-107); Estimated Glomerular Filt Rate 40; Glucose 94 mg/dL (65-110); Magnesium 1.5 mg/dL (1.6-2.3); Phosphorus 2.8 mg/dL (2.5-4.5); Potassium 3.7 mmol/L (3.4-5.0); Sodium 137 mmol/L (137-145)
[2024-07-28 10:43] LABS: Creatinine Urine 78.2 mg/dL; Total Protein Urine Random 57 mg/dL; Ur Ttl Prot Creatinine Ratio 0.73 mg/mg (0-0.20)
== END 2024-07-28 07:30 | disposition home or self-care (01) ==
PROVIDERS: PCP Family Medicine; Referring Provider Internal Medicine Cardiovascular Disease; Visit Provider Internal Medicine Nephrology
DX: E83.42 Hypomagnesemia (principal); I12.9 Hypertensive chronic kidney disease with stage 1 through stage 4 chronic kidney disease, or unspecified chronic kidney disease; N18.31 Chronic kidney disease, stage 3a; I50.32 Chronic diastolic (congestive) heart failure
CPT/HCPCS: 36415; 80069; 82570; 83735; 84156

== ENCOUNTER 2024-08-13 07:43 | Outpatient (CLI) | payer MEDICARE, SELFPAY ==
[2024-08-13 08:56] LABS: Anion Gap 8 mmol/L (4-12); Blood Urea Nitrogen 38 mg/dL (7-17); Calcium 9.8 mg/dL (8.4-10.2); Carbon Dioxide 29 mmol/L (22-30); Chloride 99 mmol/L (98-107); Estimated Glomerular Filt Rate 40; Glucose 88 mg/dL (65-110); Potassium 3.7 mmol/L (3.4-5.0); Sodium 136 mmol/L (137-145)
== END 2024-08-13 07:44 | disposition home or self-care (01) ==
PROVIDERS: PCP Family Medicine; Referring Provider Internal Medicine Nephrology; Visit Provider Internal Medicine Cardiovascular Disease
DX: I50.32 Chronic diastolic (congestive) heart failure (principal); R79.89 Other specified abnormal findings of blood chemistry
CPT/HCPCS: 36415; 80048

== ENCOUNTER 2024-08-31 07:49 | Outpatient (CLI) | payer MEDICARE, SELFPAY ==
[2024-08-31 08:40] LABS: Anion Gap 6 mmol/L (4-12); Blood Urea Nitrogen 38 mg/dL (7-17); Calcium 9.8 mg/dL (8.4-10.2); Carbon Dioxide 35 mmol/L (22-30); Chloride 97 mmol/L (98-107); Estimated Glomerular Filt Rate 40; Glucose 92 mg/dL (65-110); Potassium 3.6 mmol/L (3.4-5.0); Sodium 138 mmol/L (137-145)
== END 2024-08-31 07:50 | disposition home or self-care (01) ==
LOC: ANHLAB 07:52
PROVIDERS: PCP Family Medicine; Visit Provider Internal Medicine Cardiovascular Disease
DX: I50.32 Chronic diastolic (congestive) heart failure (principal)
CPT/HCPCS: 36415; 80048

== ENCOUNTER 2024-09-24 07:46 | Outpatient (CLI) | payer MEDICARE, SELFPAY ==
[2024-09-24 09:49] LABS: Folic Acid 15.8 ng/mL (2.76->20); Vitamin B12 > 1000.0 pg/mL (239-931)
== END 2024-09-24 07:47 | disposition home or self-care (01) ==
PROVIDERS: PCP Family Medicine; Visit Provider Family Medicine
DX: L65.9 Nonscarring hair loss, unspecified (principal); I10 Essential (primary) hypertension; N31.2 Flaccid neuropathic bladder, not elsewhere classified; I48.91 Unspecified atrial fibrillation; R39.9 Unspecified symptoms and signs involving the genitourinary system; N25.81 Secondary hyperparathyroidism of renal origin; G60.9 Hereditary and idiopathic neuropathy, unspecified; J96.00 Acute respiratory failure, unspecified whether with hypoxia or hypercapnia; D64.9 Anemia, unspecified
CPT/HCPCS: 36415; 82607; 82746

== ENCOUNTER 2024-10-01 08:00 | Outpatient (CLI) | payer MEDICARE, SELFPAY ==
[2024-10-01 08:45] LABS: Hematocrit 33.9 % (37.0-47.0); Hemoglobin 10.1 g/dL (12.0-15.0); Mean Corpuscular HGB Conc 29.8 g/dl (32-36); Mean Corpuscular Hemoglobin 30.1 pg (26-34); Mean Corpuscular Volume 101.2 fl (80-100); Mean Platelet Volume 9.9 fl (7.4-10.4); Platelet Count Result 232 k/mm3 (150-375); Red Blood Count 3.35 M/mm3 (4.2-5.4); Red Cell Distribution Width 13.4 % (11.5-14.5); White Blood Count 8.9 K/mm3 (4.5-10.0)
[2024-10-01 09:38] LABS: Alanine Aminotransferase 12 U/L (6-35); Albumin Level 4.2 g/dL (3.5-5.1); Alkaline Phosphatase 46 U/L (38-126); Anion Gap 7 mmol/L (4-12); Aspartate Amino Transferase 21 U/L (14-36); Bilirubin,Total 0.3 mg/dL (0.2-1.3); Blood Urea Nitrogen 39 mg/dL (7-17); Calcium 9.9 mg/dL (8.4-10.2); Carbon Dioxide 30 mmol/L (22-30); Chloride 101 mmol/L (98-107); Estimated Glomerular Filt Rate 37; Glucose 92 mg/dL (65-110); Magnesium 1.5 mg/dL (1.6-2.3); Potassium 3.8 mmol/L (3.4-5.0); Sodium 138 mmol/L (137-145)
[2024-10-01 09:43] LABS: Iron 81 ug/dL (37-170)
[2024-10-01 09:53] LABS: Percent Iron Saturation 28 % (20-50)
[2024-10-01 10:46] LABS: Hemoglobin A1C 5.1 % (<5.7)
== END 2024-10-01 08:01 | disposition home or self-care (01) ==
PROVIDERS: PCP Family Medicine; Visit Provider Family Medicine
DX: I48.91 Unspecified atrial fibrillation (principal); I11.0 Hypertensive heart disease with heart failure; I50.32 Chronic diastolic (congestive) heart failure; J96.10 Chronic respiratory failure, unspecified whether with hypoxia or hypercapnia; E03.9 Hypothyroidism, unspecified; M06.9 Rheumatoid arthritis, unspecified; R73.03 Prediabetes; G47.33 Obstructive sleep apnea (adult) (pediatric); Z99.89 Dependence on other enabling machines and devices
CPT/HCPCS: 36415; 80053; 82728; 83036; 83540; 83550; 83735; 84443; 85027

== ENCOUNTER 2024-11-09 08:19 | Outpatient (CLI) | payer MEDICARE, SELFPAY ==
[2024-11-09 09:13] LABS: Albumin Level 4.2 g/dL (3.5-5.1); Anion Gap 5 mmol/L (4-12); Blood Urea Nitrogen 33 mg/dL (7-17); Carbon Dioxide 37 mmol/L (22-30); Chloride 97 mmol/L (98-107); Estimated Glomerular Filt Rate 44; Glucose 106 mg/dL (65-110); Potassium 3.9 mmol/L (3.4-5.0); Sodium 139 mmol/L (137-145)
[2024-11-09 10:56] LABS: Creatinine Urine 83.7 mg/dL; Total Protein Urine Random 118 mg/dL; Ur Ttl Prot Creatinine Ratio 1.41 mg/mg (0-0.20)
--- OUTSIDE RECORDS SUMMARY | 2024-11-15 05:53 | XMS_ITS | Encounter Summary ---
Author Organization [facility] Address [address] [facility] [address] [place] [address] Phone Care Team Providers Care Twine Winder Name Role Phone Ni Armas RN Unavailable Lizette Timothy Land MD Primary Care Provider [phone] Reason for Referral * Procedure (Routine) - Authorized Specialty Diagnoses / Procedures Referred By Contac t Referred To Contact Diagnoses ILD (interstitial lung disease) (CMS/HCC) (HCC) Procedures Pulmonary Function Test -[facility] Adult PFT Lab- CAM-8D; Spirometry Denita Correa MD [address] [place] [address] Phone: tel: fax: Referral ID Status Reason Start Date Expiration Date V isits Requested Visits Authorized [id number] Authorized 10/08/2024 11/07/2025 1 1 NICAL STAFF ASSISTANT Encounter Details Date Type Department Care Team (Late st Contact Info) Description 10/08/2024 12:30 PM TECHNICAL STAFF ASSISTANT Office Visit [facility] Pulmonary [address] 8th [place] [address] [place] [address] Denita Correa MD [address] [place] [address] ILD (interstitial lung disease) (CMS/HCC) (HCC) (Primary Dx); Rheumatoid arthritis, involving unspecified site, unspecified whether rheumatoid factor present (HCC); Recurrent major depressive disorder, in partial remission (HCC); Body mass index 40.0-44.9, adult (CMS/HCC) (HCC); Stage 3a chronic kidney disease (HCC) Social History Tobacco Use Types Packs/Day Years Used Date Smoking Tobacco: Never Smokeless Tobacco: Never Alcohol Use Standard Drinks/Week Comments Not Currently 0 (1 standard drink = 0.6 oz pur e alcohol) Comments Unknown Sex and Gender Information Value Date Recorded Sex Assigned at Not on file Legal Sex Female 1:14 AM TECHNICAL STAFF ASSISTANT Gender Identity Female 05/04/2020 3:33 PM CDT Sexual Orientation Not on file 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 Not on file Not on file Not on file documented as of this encounter Last Filed Vital Signs Vital Sign Reading Time Taken Comments Blood Pressure 121/65 10/08/2024 12:18 PM TECHNICAL STAFF ASSISTANT Pulse 50 10/08/2024 12:18 PM TECHNICAL STAFF ASSISTANT Temperature 36.6 ??C (97.9 ??F) 10/08/2024 12:[address] Respiratory Rate 18 10/08/2024 12:18 PM TECHNICAL STAFF ASSISTANT Oxygen Saturation 98% 10/08/2024 12:18 PM TECHNICAL STAFF ASSISTANT 4 liters o2 Inhaled Oxygen Concentration - - Weight 109.8 kg (242 lb) 10/08/2024 12:18 PM TECHNICAL STAFF ASSISTANT Height 157.5 cm (5' 2 ) 10/08/2024 12:18 PM TECHNICAL STAFF ASSISTANT Body Mass Index 44.26 10/08/2024 12:18 PM TECHNICAL STAFF ASSISTANT documented in this encounter Patient Instructions * Patient Instructions* Denita Correa MD - 10/08/2024 12:30 PM TECHNICAL STAFF ASSISTANT Will not add any new medications. Will see in 6 months. Contact the nurse coordinator with questions - BILLY Dan [phone]. NICAL STAFF ASSISTANT documented in this encounter Progress Notes * Denita Correa MD - 10/08/2024 12:30 PM CST [facility], PUL[facility] MEDIC[facility], [address] [place] [address], 8TH FLOOR, [facility]. 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 Congestive heart failure. Atrial fibrillation Obstructive sleep apnea on CPAP. History of bilateral knee replacements. History of frequent urinary tract infections. History of influenza A infection in September 2021, requiring hospitalization. History of recurrent DVT and PE, on lifelong anticoagulation with Eliquis. History of COVID-19 infection, May 2022, and required hospitalization at that time for a mechanical fall with rib fractures and heart failure exacerbation. Osteoarthritis Osteopenia Chronic suprapubic catheter Subjective/Objective INTERVAL HISTORY: Ms. Cash is a 74 y.o. female who [facility] tissue disease related interstitial lung disease secondary to rheumatoid arthritis. The patient was last seen 03/26/24. In the interval, the patient denies any hospitalizations or presentations to an urgent care, emergency room, or primary care physician for respiratory issues. No overall, she states that her respiratory status is significantly worse in comparison to March 2024, which she attributes to progressive worsening of her exertional dyspnea. The patient is not participating in regular aerobic exercise, requires significant assistance with activities of daily living, and appears to be virtually bed- bound athome (then has been for some time). She rates her exertional dyspnea as severe with showering and dressing. She denies regularly ambulating throughout her home, climbing stairs, or going shopping. She continues to defer participation in pulmonary rehabilitation. Lastly, she has obtain her influenza and COVID-19 vaccinations. On review of systems, she endorses chronic peripheral edema, orthopnea, PND, and insomnia. She denies syncope or weight changes. MEDICATIONS: Abatacept weekly Acetaminophen PRN, which she uses daily Alendronate weekly Calcium- Vitamin D supplementation Cholestyramine daily Vitamin B12 daily Diltiazem daily Duloxetine daily Eliquis BID Furosemide 80mg BID Hydroxychloroquine BID Levothyroxine daily Magnesium daily Metoprolol daily Potassium BID Pravastatin daily Prednisone 2.5mg daily Entresto BID Tramadol daily Trazodone nightly REVIEW OF SYSTEMS: All systems reviewed and otherwise negative other than per HPI. PHYSICAL EXAM: Vitals BP 121/65 Pulse 50 Temp 36.6 ??C (97.9 ??F) (Temporal) Resp 18 Ht 157.5 cm (5' 2 ) Wt 109.8 kg (242 lb) SpO2 98% BMI 44.26 kg/m?? Constitutional: Well developed. Well nourished. Alert and cooperative. In no acute distress. Head: Normocephalic. Atraumatic. Cardiac: Normal rate, regular rhythm. Normal S1/S2. No murmurs, rubs, or gallops. Resp: Clear to auscultation bilaterally. No wheezes, rhonchi, or rales. Normal work of breathing. Abdomen: Soft. Non- distended. Non- tender. Positive bowel sounds. No guarding or rebound tenderness. Psychiatric: Appropriate affect and behavior. Extremities: No sigificant deformity or joint abnormality. No edema. Peripheral pulses intact. No varicosities. Neuro: No focal neurologic deficits. DATA: Spirometry Date FVC FEV1 FEV1/FVC TLC DLCO 10/08/24 .90,36% .76,40% 85% 04/08/24 .98,39% .81,42% 83.4% 09/19/23 1.01,40% .86,44% 85% 6 Minute walk: The patient was saturating 87 on room air at rest. The patient walked 20 ft in 6 minutes, and require 4 L supplemental oxygen with exertion. HR went from 66 to 77, and BP went from 131/64 to 132/66 with activity. Concluding Kaitlin score was 4. Of note, the 6 minute walk was terminated early at 2 minutes. 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 Ultimately, the patient decided to defer therapy at this time. From a interstitial lung disease perspective, she remains on prednisone 2.5 mg daily which we will continue at this time. Pulmonary rehabilitation was again discussed and the patient again does not wish to enroll in pulmonary rehabilitation. Goals of care was again briefly discussed today. The patient states that she understands the severity of her current lung disease, as well as, other comorbidities. Return to clinic in 6 months with repeat spirometry. Ken Khan MD Pulmonary and Critical Care Fellow, PGY-6 TEACHING PHYSICIAN ADDENDUM: I have seen and examined the patient with Dr. Khan on 10/08/2024. I agree with the findings and plan of care as documented in the resident/fellow's note. I have edited the note. Denita Correa MD business continuity analyst Diplomate in Sleep Medicine, [place] [employer] NICAL STAFF ASSISTANT NICAL STAFF ASSISTANT NICAL STAFF ASSISTANT documented in this encounter Plan of Treatment Scheduled Orders Name Type Priority Associated Diagnoses Orde r Schedule Pulmonary Function Test -[facility] Adult PFT Lab- CAM-8D; Spirometry PFT Routine ILD (interstitial lung disease) ([facility] ([facility]) Expected: 04/07/2025 (Approximate), Expires: 10/08/2025 documented as of this encounter Visit Diagnoses Diagnosis ILD (interstitial lung disease) (CMS/HCC) ([facility])- Primary Postinflammatory pulmonary fibrosis Rheumatoid arthritis, involving unspecified site, unspecified whether rheumatoid factor present ([facility]) Recurrent major depressive disorder, in partial remission ([facility]) Body mass index 40.0-44.9, adult ([facility]) ([facility]) Body Mass Index 40.0-44.9, adult Stage 3a chronic kidney disease ([facility]) documented in this encounter Historical Medications * This list may reflect changes made after this encounter. MAGNESIUM ORAL Take 250 mg by mouth daily traZODone (DESYREL) 50 mg tablet TAKE 1 TABLET BY MOUTH EVERY DAY AT BEDTIME NEEDED FOR INSOMNIA 10/01/2024 added in this encounter Care Teams Twine Winder Relationship Specialty Start Date End Date Timothy Donis MD PCP - General Family Practice 04/12/23 Ni Armas, RN Registered Nurse Pulmonary Disease 01/11/23 documented as of this encounter
--- OUTSIDE RECORDS SUMMARY | 2024-11-15 05:53 | XMS_ITS | Encounter Summary ---
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) Social History Tobacco Use Types Packs/Day Years Used Date Smoking Tobacco: Never Smokeless Tobacco: Never Alcohol Use Standard Drinks/Week Comments Not Currently 0 (1 standard drink = 0.6 oz pur e alcohol) Comments Unknown Sex and Gender Information Value Date Recorded Sex Assigned at Not on file Legal Sex Female 1:14 AM CIGARETTE MAKING MACHINE CATCHER Gender Identity Female 05/04/2020 3:33 PM CDT Sexual Orientation Not on file 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 Not on file Not on file documented as of this encounter Plan of Treatment Not on file documented as of this encounter Procedures Procedure Name Priority Date/Time Associated Diagnosis Comments CBC WITH AUTO DIFFERENTIAL Routine 08/05/2024 9:23 AM CDT 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8 6.1 - 8.4 g/dL [facility] Albumin 4.1 3.5 - 5.2 g/dL [facility] Calcium 10.1 8.6 - 10.3 mg/dL [facility] BUN 34(H) 7 - 23 mg/dL [facility] Total Bilirubin 0.17(L) 0.20 - 1.40 mg/dL [facility] Comment:Repeated and Verifie d Alk Phos, Total 40 35 - 129 IU/L [facility] AST (SGOT) 11 11 - 47 IU/L [facility] ALT (SGPT) 5(L) 6 - 53 IU/L [facility] Comment:Repeated and Verifie d Creatinine 1.16(H) 0.60 - 1.10 mg/dL [facility] Sodium 140 135 - 145 mmol/L [facility] Potassium 4.1 3.3 - 5.1 mmol/L [facility] Chloride 100 95 - 107 mmol/L [facility] CO2 Content 26 21 - 29 mmol/L [facility] Glucose 91 64 - 99 mg/dL [facility] Comment: NONFASTING GLUCOSE RANGE = 64-199 mg/dL FASTING GLUCOSE 64 - 99 = NORMAL FASTING GLUCOSE 100 - 125 = IMPAIRED FASTING GLUCOSE FASTING GLUCOSE >=126 = PROVISIONAL DIAGNOSIS OF DIABETES eGFR 48.9(L) >60.0 mL/min/1.7 3 m2 [facility] Blood 08/05/2024 9:23 AM CDT 08/05/2024 11:03 AM CDT us Sandra Bauman MD LAB BLOOD ORDERABLES Final Resul t [facility] * (ABNORMAL) CBC with auto differential (08/05/2024 9:23 AM CDT) White Blood Count 9.9 3.6 - 11.2 K/uL [facility] RBC 3.06(L) 3.63 - 4.92 M/uL [facility] Hemoglobin 9.4(L) 11.9 - 15.5 g/dL [facility] Hematocrit 28.6(L) 36.1 - 44.3 % [facility] Comment:Repeated and Verifie d MCV 93.5 80.0 - 97.6 fL [facility] MCH 30.7 26.7 - 33.7 pg [facility] MCHC 32.8 32.7 - 35.5 g/dL [facility] RBC Dist Width 14.2 12.3 - 17.0 % [facility] Platelet Count 237 140 - 440 K/uL [facility] MPV 8.4 6.8 - 10.4 fL [facility] Neutrophils % 77.8(H) 38.7 - 74.5 % [facility] Lymphocyte % 10.2(L) 20.0 - 54.3 % [facility] Monocytes % 9.5 4.3 - 13.5 % [facility] Eosinophils % 2.0 0.0 - 6.0 % [facility] Basophil % 0.5 0.0 - 3.0 % [facility] Absolute Neutrophil 7.7(H) 1.8 - 6.6 K/uL [facility] Absolute Lymphocyte 1.0 0.8 - 3.3 K/uL [facility] Absolute Monocyte 0.9 0.2 - 1.2 K/uL [facility] Absolute Eosinophil 0.2 0.0 - 0.5 K/uL [facility] Absolute Basophil 0.1 0.0 - 0.2 K/uL [facility] Nucleated RBC % 0.0 0.0 - 0.4 /100 WBC [facility] Blood 08/05/2024 9:23 AM CDT 08/05/2024 11:03 AM CDT us Sandra Bauman MD LAB BLOOD ORDERABLES Final Resul t [facility] documented in this encounter Visit Diagnoses Diagnosis 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
--- OUTSIDE RECORDS SUMMARY | 2024-11-15 05:53 | XMS_ITS | Encounter Summary ---
Author Organization [facility] Address [address] [place] [address] Phone Care Team Providers Care Service Parts Driver Name Role Phone Ni Armas RN Unavailable Lizette Timothy Land MD Primary Care Provider [phone] Reason for Referral * Diagnostic Imaging (Routine) - Closed Specialty Diagnoses / Procedures Referred By Contac t Referred To Contact Radiology Diagnoses Chronic lumbar radiculopathy Procedures IR Transforaminal Epidural Injection Lumbar Sacral 1 Level Left Finn Brito MD [address] [place] [address] Phone: tel: fax: [address] [address] Referral ID Status Reason Start Date Expiration Date Visits Re quested Visits Authorized [id number] Closed 07/23/2024 08/22/2025 1 1 Encounter Details Date Type Department Care Team (Late st Contact Info) Description 07/23/2024 Orders Only [facility] Orthopaedic Surgery [address] [facility] [address] [place] [address] Finn Brito MD [address] [place] [address] Chronic lumbar radiculopathy (Primary Dx) Social History Tobacco Use Types Packs/Day Years Used Date Smoking Tobacco: Never Smokeless Tobacco: Never Alcohol Use Standard Drinks/Week Comments Not Currently 0 (1 standard drink = 0.6 oz pur e alcohol) Comments Unknown Sex and Gender Information Value Date Recorded Sex Assigned at Not on file Legal Sex Female 1:14 AM MINI BACCARAT DEALER Gender Identity Female 05/04/2020 3:33 PM CDT Sexual Orientation Not on file 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 ??Please refer to the physician's procedure / OR operative note. Finn Brito MD IMG IR PROCEDURES Final Re sult [facility] documented in this encounter Visit Diagnoses Diagnosis Chronic lumbar radiculopathy- Primary Chronic lumbar radiculopathy documented in this encounter Care Teams Service Parts Driver Relationship Specialty Start Date End Date Timothy Donis MD PCP - General Family Practice 04/12/23 Ni Armas, RN Registered Nurse Pulmonary Disease 01/11/23 documented as of this encounter
--- OUTSIDE RECORDS SUMMARY | 2024-11-15 05:53 | XMS_ITS | Encounter Summary ---
Author Organization [facility] Address [address] [place] [address] Phone Care Team Providers Care Ed Case Manager Name Role Phone Ni Armas RN Unavailable Lizette Timothy Land MD Primary Care Provider [phone] Encounter Details Date Type Department Care Team (Late st Contact Info) Description 07/16/2024 Telephone [facility] Orthopaedic Surgery [address] [place] [address] Finn Brito MD [address] [facility] [address] [place] [address] Social History Tobacco Use Types Packs/Day Years Used Date Smoking Tobacco: Never Smokeless Tobacco: Never Alcohol Use Standard Drinks/Week Comments Not Currently 0 (1 standard drink = 0.6 oz pur e alcohol) Comments Unknown Sex and Gender Information Value Date Recorded Sex Assigned at Not on file Legal Sex Female 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 This is good news. If symptomshave not improved since the time of evaluation in April, an epidural steroid injection under fluoroscopy image guidance would be a reasonable next option to consider. Please update with any changes in left hip and leg symptoms since the time of visit, and I will advise next steps accordingly. documented in this encounter Plan of Treatment Not on file documented as of this encounter Visit Diagnoses Not on filedocumented in this encounter Care Teams Ed Case Manager Relationship Specialty Start Date End Date Timothy Donis MD PCP - General Family Practice 04/12/23 Ni Armas, RN Registered Nurse Pulmonary Disease 01/11/23 documented as of this encounter
--- OUTSIDE RECORDS SUMMARY | 2024-11-15 05:53 | XMS_ITS | Encounter Summary ---
Author Organization [facility] Healthcare Address [address] [place] [address] Care Team Providers Care Business Management Intern Name Role Phone Ni Armas RN Unavailable Lizette Timothy Land MD Primary Care Provider [phone] Encounter Details Date Type Department Care Team (Late st Contact Info) Description 08/03/2024 Telephone Radiology - [address] [place] [address] Moraima Barrera, RT Social History Tobacco Use Types Packs/Day Years Used Date Smoking Tobacco: Never Smokeless Tobacco: Never Alcohol Use Standard Drinks/Week Comments Not Currently 0 (1 standard drink = 0.6 oz pur e alcohol) Comments Unknown Sex and Gender Information Value Date Recorded Sex Assigned at Not on file Legal Sex Female 1:14 AM 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 [address] [facility], [address] If you have any financial questions please call [phone] (ONLY SHARE THIS IF PATIENT INQUIRES) If you need to cancel or reschedule your appointment please call [phone] Ask them the covid screening questions Have you had any respiratory symptoms including cough, shortness of breath/trouble breathing, fever, sudden loss of taste or smell, sore throat, or body aches? Yes [] No [x] Are you currently being tested for Covid-19? Yes [] No[x] Have you had any contact with a person known to be positive for Covid-19 or a person under investigation? Yes [] No [x] If the patient answers yes to any of the Covid -19 screening questions they need to be rescheduled for at least 14 days later. Inform patient that only 1 guest/visitor will be allowed into the clinic. If possible, come by themselves. Procedure Patients Are you on any blood thinners? Yes [x] No [] Are you currently on any antibiotics? Yes [x] No [] Have you had a fever in the last 7 days? Yes [] No [x] Are you diabetic? Yes [] No [x] In the last 2 weeks have you received any vaccinations including the COVID booster? Yes [] No [x] In the next 2 weeks do you plan on receiving any vaccinations including the COVID booster? Yes [] No [x] If the answer is yes to either question 5 or 6 then please connect the patient with the business development coordinator at [phone]. If a direct number is requested by the patient please give them [phone]. * Telephone Encounter - Moraima Barrera RT - 08/03/2024 4:00 PM CDT Remind Patients of our location. [address] [place] [address]. [facility], [address] If you have any financial questions please call [phone] (ONLY SHARE THIS IF PATIENT INQUIRES) If you need to cancel or reschedule your appointment please call [phone] Ask them the covid screening questions Have you had any respiratory symptoms including cough, shortness of breath/trouble breathing, fever, sudden loss of taste or smell, sore throat, or body aches? Yes [] No [] Are you currently being tested for Covid-19? Yes [] No[] Have you had any contact with a person known to be positive for Covid-19 or a person under investigation? Yes [] No [] If the patient answers yes to any of the Covid -19 screening questions they need to be rescheduled for at least 14 days later. Inform patient that only 1 guest/visitor will be allowed into the clinic. If possible, come by themselves. Procedure Patients Are you on any blood thinners? Yes [] No [] Are you currently on any antibiotics? Yes [] No [] Have you had a fever in the last 7 days? Yes [] No [] Are you diabetic? Yes [] No [] In the last 2 weeks have you received any vaccinations including the COVID booster? Yes [] No [] In the next 2 weeks do you plan on receiving any vaccinations including the COVID booster? Yes [] No [] If the answer is yes to either question 5 or 6 then please connect the patient with the business development coordinator at [phone]. If a direct number is requested by the patient please give them [phone]. documented in this encounter Plan of Treatment Not on file documented as of this encounter Visit Diagnoses Not on filedocumented in this encounter Care Teams Business Management Intern Relationship Specialty Start Date End Date Timothy Donis MD PCP - General Family Practice 04/12/23 Ni Armas, BILLY Registered Nurse Pulmonary Disease 01/11/23 documented as of this encounter
--- OUTSIDE RECORDS SUMMARY | 2024-11-15 05:53 | XMS_ITS | Encounter Summary ---
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) Discharge Disposition: Discharge to home or self care Social History Tobacco Use Types Packs/Day Years Used Date Smoking Tobacco: Never Smokeless Tobacco: Never Alcohol Use Standard Drinks/Week Comments Not Currently 0 (1 standard drink = 0.6 oz pur e alcohol) Comments Unknown Sex and Gender Information Value Date Recorded Sex Assigned at Not on file Legal Sex 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 Gender Identity Female 05/04/2020 3:33 PM CDT Sexual Orientation Not on file 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 Not on file Not on file documented as of this encounter Medications at Time of Discharge abatacept (Orencia ClickJect) 125 mg/mL auto-injector Inject 1 mL (125 mg total) under the skin once a week 4 mL 3 11/19/2023 acetaminophen 325 mg capsule Take by mouth alendronate (FOSAMAX) 70 mg tablet 01/10/2023 calcium carbonate-vit D3-min 600 mg calcium- 400 unit tablet Take by mouth 2 (two) times a day cephalexin (KEFLEX) 250 mg capsule Take 1 capsule (250 mg total) by mouth daily 05/08/2024 cholecalciferol (VITAMIN D-3) 2000 unit tablet Take 0.5 tablets (1,000 Units total) by mouth daily cholestyramine light 4 gram packet MIX 1 PACKET WITH LIQUID AND DRINK EVERY DAY WITH A MEAL. AVOID OTHER MEDS WITHIN 1 HOUR BEFORE OR 4 TO 6 HOURS AFTER DOSE 09/13/2023 cyanocobalamin (Vitamin B-12) 1,000 mcg tabletIndication s:Prevention of Vitamin B12 Deficiency Take 1 tablet (1,000 mcg total) by mouth daily dilTIAZem CD (CARDIZEM CD) 300 mg 24 hr capsule Take 1 capsule (300 mg total) by mouth daily 90 capsule 2 01/17/[address] (CYMBALTA) 20 mg capsule Take 1 capsule (20 mg total) by mouth daily 10/24/2021 Eliquis 5 mg tablet Take 1 tablet (5 mg total) by mouth 2 (two) times a day 04/11/2021 furosemide (LASIX) 40 mg tablet Take 1 tablet (40 mg total) by mouth 2 (two) times a day 180 tablet 2 01/17/2024 hydroxychloroqui ne (PLAQUENIL) 200 mg tablet Take 1 tablet (200 mg total) by mouth 2 (two) times a day 180 tablet 1 01/01/2024 levothyroxine (SYNTHROID) 112 mcg tablet Take 1 tablet (112 mcg total) by mouth daily 11/11/2019 metoprolol XL (TOPROL-XL) 100 mg 24 hr tablet Take 1 tablet (100 mg total) by mouth daily To be taken with Metoprolol 50 mg tablet once daily 90 tablet 3 01/17/2024 5 metoprolol XL (TOPROL-XL) 50 mg extended release tablet Take 1 tablet (50 mg total) by mouth daily To be taken with Metoprolol 100 mg tablet once daily 90 tablet 3 01/17/[address] (PROTONIX) 40 mg EC tablet TAKE 1 TABLET(40 MG) BY MOUTH DAILY 90 tablet 1 12/16/2023 potassium chloride ER (KLOR-CON) 20 mEq CR tablet 1 tablet (20 mEq total) 2 (two) times a day 08/20/2022 pravastatin (PRAVACHOL) 80 mg tablet Take 1 tablet (80 mg total) by mouth daily 01/22/2020 predniSONE (DELTASONE) 2.5 mg tablet TAKE 1 TABLET(2.5 MG) BY MOUTH DAILY 90 tablet 1 06/29/2024 sacubitriL-valsa rtan (ENTRESTO) 24-26 mg tabletIndication s:chronic heart failure Take 1 tablet by mouth 2 (two) times a day 180 tablet 3 01/17/2024 traMADoL (ULTRAM) 50 mg tablet Take 1 tablet (50 mg total) by mouth every 8 (eight) hours as needed for pain 21 tablet 07/03/2022 documented as of this encounter Discharge Disposition Disposition Code Departure Means Destination Discharge to home or self care documented in this encounter Plan of Treatment Not on file documented as of this encounter Procedures Procedure Name Priority Date/Time Associated Diagnosis Comments T-SPOT.TB Routine 08/05/2024 9:23 AM CDT 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) ERYTHROCYTE SEDIMENTATION RATE Routine 08/05/2024 9:23 AM CDT 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 tuberculosis). ??Patients with recent exposure to TB infected individuals exhibiting a negative T-SPOT.TB result should be considered for retesting within 6 weeks or if other relevant clinical symptoms indicate. ??Results from T-SPOT.TB testing must be used in conjunction with each individual's epidemiological history, current medical status, and results of other diagnostic evaluations. ??The T-SPOT.TB test is qualitative and results are reported as positive, borderline or negative, given that the test controls perform as expected. In line with the Centers for Disease Control and Prevention's 2010 recommendation to report quantitative measurements alongside the qualitative result, the laboratory provides spot counts for informational purposes only. ??The T-SPOT.TB test should not be interpreted as a quantitative test. T-SPOT.TB Panel A Spot Count 0 [facility] T-SPOT.TB Panel B Spot Count 0 [facility] T-SPOT.TB Negative Control Passed [facility] T-SPOT.TB Positive Control Passed [facility] Comment: Test Performed at: [facility] [address] [place] [address] ??[id number] ? 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
--- OUTSIDE RECORDS SUMMARY | 2024-11-15 05:53 | XMS_ITS | Encounter Summary ---
Author Organization [facility] Healthcare Address [address] [place] [address] Care Team Providers Care Supplier Manager Name Role Phone Ni Armas RN Unavailable Lizette Timothy Land MD Primary Care Provider [phone] Reason for Referral * Diagnostic Imaging (Routine) - Closed Specialty Diagnoses / Procedures Referred By Contac t Referred To Contact Radiology Diagnoses Chronic lumbar radiculopathy Procedures IR Transforaminal Epidural Injection Lumbar Sacral 1 Level Left Finn Pike MD [address] [facility] [address] [place] [address] Phone: tel: fax: [address] [address] Referral ID Status Reason Start Date Expiration Date Visits Re quested Visits Authorized [id number] Closed 07/23/2024 08/22/2025 1 1 Reason for Visit * Diagnostic Imaging (Routine) - Closed Specialty Diagnoses / Procedures Referred By Contac t Referred To Contact Radiology Diagnoses Chronic lumbar radiculopathy Procedures IR Transforaminal Epidural Injection Lumbar Sacral 1 Level Left Finn Pike MD [address] [facility] [place] [address] Phone: tel: fax: [address] [address] Referral ID Status Reason Start Date Expiration Date Visits Re quested Visits Authorized [id number] Closed 07/23/2024 08/22/2025 1 1 Encounter Details Date Type Department Care Team (Latest Contact Info) Description 08/07/2024 7:51 AM CDT - 08/07/2024 11:59 PM CDT Hospital Encounter [id number] Radiology [address] [facility] [address] [place] [address] Finn Pike MD [address] [facility] [address] [place], [place] [id number] Chronic lumbar radiculopathy Discharge Disposition: Discharge to home or self care Social History Tobacco Use Types Packs/Day Years Used Date Smoking Tobacco: Never Smokeless Tobacco: Never Alcohol Use Standard Drinks/Week Comments Not Currently 0 (1 standard drink = 0.6 oz pur e alcohol) Comments Unknown Sex and Gender Information Value Date Recorded Sex Assigned at Not on file 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 Your injection included: Lidocaine (numbing medicine). The numbing medicine usually lasts for 30- 45 minutes. During this time, your leg may feel weak and numb due to the effects of the numbing medicine. If this occurs, it is important to stay safe and do not stand or walk without assistance until the numbing medicine wears off. Do not drive for one hour after the injection. Dexamethasone (steroid medicine for inflammation and pain). The steroid will start working within the next three to five days and can take up to two weeks for the full effect. When you get home: Resume your medicine including any blood thinner you held prior to the injection. Resume your normal diet For soreness, you may place an ice pack once an hour at the injection site for 15-20 minutes. You may shower. To prevent infection, do not take a bath, swim or sit in a Jacuzzi or hot tub for the next two days. Drink plenty of fluids to decrease a chance of a headache associated with steroids. You may resume your physical therapy appointments in 24 hours. Do not exercise for 24 hours, regular day-to-day activities are OK to perform. Diabetic patients: Steroid injections may lead to higher blood glucose (sugar) levels temporarily. Most commonly, the higher levels will return to normal within 1-3 days, though effects may last longer. Rises in blood glucose levels may be more significant in patients with poorly controlled type 2 diabetes (those with HbA1c levels greater than 7) and those with type I diabetes. Check fasting (wardrobe specialty worker prior to first meal of the day) and post-prandial (following meals) blood glucose levels. Contact the physician who manages your diabetes if your blood sugar is significantly elevated (for example, over 100mg/dL higher than your pre- injection level) or if blood sugar levels remain significantly elevated 2 days after receiving the injection, to discuss whether a change in medication dosing is needed. For urgent concerns after hours, call our exchange at [phone]. For all other questions regarding the procedure, please call our office at [phone]. Pain Diary Please fill out the pain diary chart below and message via [employer] call or call the medical provider who requested the injection, Dr. Pike, in two weeks. By how much has your pain improved after your injection? Therapeutic Injection: NOT IMPROVED IMPROVED A LITTLE IMPROVED A LITTLE MORE IMPROVED A LOT NO PAIN Immediately? 0% 20% 50% 80% 100% 6 hours after? 0% 20% 50% 80% 100% 24 hours after? 0% 20% 50% 80% 100% 4 days after? 0% 20% 50% 80% 100% 1 week after? 0% 20% 50% 80% 100% 10 days after? 0% 20% 50% 80% 100% 2 weeks after? 0% 20% 50% 80% 100% documented in this encounter Medications at Time of Discharge [...] tablet once daily 90 tablet 3 01/17/2024 metoprolol XL (TOPROL-XL) 50 mg extended release [...] or self care documented in this encounter Progress Notes * Finn Pike MD - 08/07/2024 8:20 AM CDT Left S1 Transforaminal Epidural Steroid Injection [facility] Department of Orthopedic Surgery Division of Physical Medicine and Rehabilitation Patient name: Ayanna Cash Date of : 1950 Date of service: 08/07/2024 Ayanna Cash presents to the fluoroscopy suite for a fluoroscopically guided left S1 transforaminal epidural steroid injection for conservative treatment of lumbosacral radicular pain. After informed consent was obtained, the patient was positioned in the prone position on the fluoroscopy table. The area was prepped with chlorhexidine and draped in sterile fashion. Using a 25 gauge 2 inch need le, 1-2 mL of 1% lidocaine was infused subcutaneously to anesthetize the region. Then, a 22 gauge 5inch spinal needle was advanced to the superolateral S1 transforaminal space and advanced into the epidural space under fluoroscopic guidance. Confirmation into the epidural space was obtained with infusion of 0.5 mL of Omnipaque contrast, which showed epidural flow as well as nerve sheath flow. Then a combination of 2 mL of 1% lidocaine and 20 mg of 10 mg/mL dexamethasone was infused. The patient tolerated the procedure without complications. Pre and post procedure blood pressure were stable. The patient was given verbal as well as written follow-up instructions. A pain diary was given to the patient with follow-up instructions. At the time of discharge following today's procedure, the patient was able to ambulate at their pre- procedure level and denied ongoing nausea, vomiting, or dizziness. Prior to the start of the procedure, verbal verification by the procedure participant(s) confirmed (as applicable): correct patient identity; correct site/side marked and visible; agreement on the procedure to be done; correct patient positioning; an accurate signed procedure consent form, relevantimages and results correctly labeled and displayed; any safety precautions based on clinical history and/or medication use have been addressed. Fluoroscopic guidance used to assist left S1 transforaminal epidural steroid injection. Confirmation of needle placement into the epidural space via the left S1 neural foramen was obtained by injecting approximately 0.5 mL of Omnipaque contrast. There was no evidence of vascular uptake or subdural flow noted. I personally performed or was present for the entire procedure above. Finn Pike MD documented in this encounter Plan of Treatment Not on file documented as of this encounter Procedures Procedure Name Priority Date/Time Associated Diagnosis Comments TRANSFORAMINAL EPIDURAL INJECTION LUMBAR SACRAL 1 LEVEL LEFT Schedule Routine, Read Routine (OP Routine) 08/07/2024 8:35 AM CDT Chronic lumbar radiculopathy documented in this encounter Results * IR Transforaminal Epidural Injection Lumbar Sacral 1 Level Left (08/07/2024 8:35 AM CDT) Narrative [facility] - 08/07/2024 8:35 AM CDT The images from this study are not interpreted by Radiology. ??Please refer to the physician's procedure / OR operative note. us Finn Pike MD IMG IR PROCEDURES Final Re sult [facility] documented in this encounter Visit Diagnoses Diagnosis Chronic lumbar radiculopathy documented in this encounter Administered Medications Inactive Administered Medications - up to 3 most recent administrations Medication Order MAR Action Action Date Dose Rate Site dexAMETHasone (DECADRON) preservative free solution Administer over 2 Minutes, As needed, Starting on Sat08/07/24 at 0753, Intra-Op Given 08/07/2024 7:53 AM CDT 20 mg iohexoL (OMNIPAQUE) 300 mg iodine/mL injection solution As needed, Starting on Sat08/07/24 at 0753, Intra-Op Given 08/07/2024 7:53 AM CDT 1 mL lidocaine (PF) (XYLOCAINE) 10 mg/mL (1 %) preservative free injection As needed, Starting on Sat08/07/24 at 0753, Intra-Procedure (IR), Indications: Administration of Local AnesthesiaIndications:Administratio n of Local Anesthesia Given 08/07/2024 7:53 AM CDT 6 mL documented in this encounter Care Teams Supplier Manager Relationship Specialty Start Date End Date Timothy Donis MD PCP - General Family Practice 04/12/23 Ni Armas, RN Registered Nurse Pulmonary Disease 01/11/23 documented as of this encounter
--- OUTSIDE RECORDS SUMMARY | 2024-11-15 05:53 | XMS_ITS | Encounter Summary ---
Author Organization [facility] Address [address] [facility] [address] [place] [address] Phone Care Team Providers Care Machine Tool Electrician Name Role Phone Ni Armas RN Unavailable Lizette Timothy Land MD Primary Care Provider [phone] [phone] Reason for Referral * Procedure (Routine) - Closed Specialty Diagnoses / Procedures Referred By Contac t Referred To Contact Diagnoses ILD (interstitial lung disease) ([facility]/HCC) (FORMERLY [facility]) Procedures Pulmonary Function Test -[facility]FT [facility]- CAM-8D; Spirometry, Oxygen Assessment Titration Denita Correa MD [address] [place] [address] Phone: tel: fax: Referral ID Status Reason Start Date Expiration Date Visits Re quested Visits Authorized [id number] Closed 03/26/2024 04/25/2025 1 1 ICAL BIOCHEMIST Reason for Visit * Procedure (Routine) - Closed Specialty Diagnoses / Procedures Referred By Contac t Referred To Contact Diagnoses ILD (interstitial lung disease) ([facility]ERLY [facility]) ([facility]) Procedures Pulmonary Function Test -[facility]FT [facility]- CAM-8D; Spirometry, Oxygen Assessment Titration Denita Correa MD [id number] [address] Phone: tel: fax: Referral ID Status Reason Start Date Expiration Date Visits Re quested Visits Authorized [id number] Closed 03/26/2024 04/25/2025 1 1 Encounter Details Date Type Department Care Team (Latest Contact Info) Description 10/08/2024 11:20 AM PHYSICAL BIOCHEMIST - 10/08/2024 11:59 PM PHYSICAL BIOCHEMIST Hospital Encounter [facility] Pulmonary [address] [facility] [address] [place] [address] ILD (interstitial lung disease) ([facility]/HCC) (FORMERLY [facility]) Discharge Disposition: Discharge to home or self care Social History Tobacco Use Types Packs/Day Years Used Date Smoking Tobacco: Never Smokeless Tobacco: Never Alcohol Use Standard Drinks/Week Comments Not Currently 0 (1 standard drink = 0.6 oz pur e alcohol) Comments Unknown Sex and Gender Information Value Date Recorded Sex Assigned at Not on file Legal Sex Female 1:14 AM 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 Gender Identity Female 05/04/2020 3:33 PM CDT Sexual Orientation Not on file 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 Not [...] (112 mcg total) by mouth daily 11/11/2019 MAGNESIUM ORAL Take 250 mg by mouth daily metoprolol XL (TOPROL-XL) 100 mg 24 hr tablet Take 1 tablet (100 mg total) by mouth daily To be taken with Metoprolol 50 mg tablet once daily 90 tablet 3 01/17/2024 metoprolol XL (TOPROL-XL) 50 mg extended release tablet Take 1 tablet (50 mg total) by mouth daily To be taken with Metoprolol 100 mg tablet once daily 90 tablet 3 01/17/[address] (PROTONIX) 40 mg EC tablet [...] as needed for pain 21 tablet 07/03/2022 traZODone (DESYREL) 50 mg tablet TAKE 1 TABLET BY MOUTH EVERY DAY AT BEDTIME NEEDED FOR INSOMNIA 10/01/2024 documented as of this encounter Discharge Disposition Disposition Code Departure Means Destination Discharge to home or self care documented in this encounter Plan of Treatment Not on file documented as of this encounter Procedures Procedure Name Priority Date/Time Associated Diagnosis Comments PULMONARY FUNCTION TEST (PFT) Routine 10/08/2024 11:48 AM PHYSICAL BIOCHEMIST ILD (interstitial lung disease) (CMS/HCC) (HCC) documented in this encounter Results * Pulmonary Function Test - (10/08/2024 11:48 AM PHYSICAL BIOCHEMIST) FVC PRE 0.90 [facility] FVC %PRE PRED 36 % [facility] FEV1 PRE 0.76 [facility] FEV1 %PRE PRED 40 % [facility] FEV1/FVC PRE 84.5 % [facility] Anatomical Region Laterality Modality PFT 10/08/2024 11:2 5 AM PHYSICAL BIOCHEMIST Narrative 10/08/2024 7:31 PM PHYSICAL BIOCHEMIST Table formatting from the original result was not included. [facility] Division of Pulmonary & Critical Care Medicine [address] [place] [address]; [address] [facility]; [place], [place] ??[address]; [phone] Pulmonary Function Laboratory Pulmonary Stress Test Simple/Oxygen Assessment Patient: Ayanna Cash Date: 10/08/2024 : 1950 Ht: 62 in Wt: 242 lbs Time (min) Distance (ft)/ Ozuna O2 L/M SpO2 HR Kaitlin* BP FEV1 % Pred Rest: ??RA 87 66 2 131/64 0.74 39 % ??2 88 73 3 ? Walk/Bike: 1 ??4 92 77 4 ? 2 ? 3 ? 4 ? 5 ? 6 min 0 sec ? Recovery: 1 ??4 93 67 4 132/66 ?? 3 ??4 94 62 4 ?*Kaitlin rate of perceived exertion (1-10 dyspnea scale) ??Victor M, CHEST 2003; 123:[id number] Walk Test Summary: Six Minute Walk Distance: 20 ft Six-minute Walk Work [distance (m) x body wt (kg)]: 667 kg.m (normal >60,000kg.m) Oxygen required to maintain SpO2 greater than 90% during six minutes of walkin L/M Comments: O2A. Stopped due to weakness and shortness of breath. Interpretation: Breathing room air, SpO2 is In hypoxemic range at rest and during exercise sufficient to increase pulse, SpO2 falls to hypoxemic levels. On this basis, SpO2 is adequate at rest breathing supplemental O2 at 4 L/min and while walking breathing supplemental O2 at 4 L/min. . ?? By signing this report, the attending pulmonary physician certifies that he/she has personally reviewed and interpreted the graphic and numerical data associated with this pulmonary function study and has reviewed and /or edited a preliminary draft report and agrees with the written final report. PFT performed at:->[facility] Adult PFT Lab- CAM-8D Procedure:->Spirometry Procedure:->Oxygen Assessment Titration Pulmonary Function Test Interpretation SPIROMETRY: There is a decrease in expiratory airflow at middle lung volumes. The FEV1 and FVC are reduced in a pattern suggestive of a restrictive abnormality. The inspiratory loop is appropriate for the expiratory flow abnormality. Impression: There is a severe restrictive ventilatory defect. However, measurement of lung volumes is suggested to confirm this if clinically indicated. Compared with most recent study, there has been no significant interval change. The attending pulmonary physician certifies a physician presence in the [facility] during the administration of aerosolized bronchodilator. The attending pulmonary physician certifies that he/she has reviewed and interpreted the graphic and numerical data of this pulmonary function study and agrees with the written final report. The lower limit of normal for PaO2 and %HbO2 is age dependent. However, the [facility] Pulmonary Function Laboratory defines hypoxemia as a PaO2 <56 mm Hg or a %HbO2 <89%. us Denita Correa MD PFT ORDERABLES Final Result documented in this encounter Visit Diagnoses Diagnosis ILD (interstitial lung disease) (CMS/HCC) (HCC) Postinflammatory pulmonary fibrosis documented in this encounter Care Teams Machine Tool Electrician Relationship Specialty Start Date End Date Timothy Donis MD PCP - General Family Practice 04/12/23 Ni Armas, RN Registered Nurse Pulmonary Disease 01/11/23 documented as of this encounter
--- OUTSIDE RECORDS SUMMARY | 2024-11-15 05:53 | XMS_ITS | Encounter Summary ---
Author Organization [facility] Address [address] [place] [address] Phone Care Team Providers Care Security Escort Name Role Phone Ni Armas RN Unavailable Lizette Timothy Land MD Primary Care Provider [phone] Reason for Referral * Diagnostic Imaging (Routine) - Authorized Specialty Diagnoses / Procedures Referred By Contac t Referred To Contact Diagnoses Left knee pain, unspecified chronicity Procedures XR Knee Left 4 or More Views Sandra Bauman MD [address] [facility] [address] [place] [address] Phone: tel: fax: [address] [address] Referral ID Status Reason Start Date Expiration Date V isits Requested Visits Authorized [id number] Authorized 08/05/2024 09/04/2025 1 1 Encounter Details Date Type Department Care Team (Late st Contact Info) Description 08/05/2024 8:20 AM CDT Office Visit [facility] Rheumatology [facility] Medicine 5th [place] [address] [place] [address] Sandra Bauman MD [address] [facility] [address] [place] [address] 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); Left knee pain, unspecified chronicity Social History Tobacco Use Types Packs/Day Years Used Date Smoking Tobacco: Never Smokeless Tobacco: Never Tobacco Cessation:Counseling Given: Not Answered Alcohol Use Standard Drinks/Week Comments Not Currently 0 (1 standard drink = 0.6 oz pur e alcohol) Comments Unknown Sex and Gender Information Value Date Recorded Sex Assigned at Not on file Legal Sex Female 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 Gender Identity Female 05/04/2020 3:33 PM CDT Sexual Orientation Not on file 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 RHEUMATOLOGY PROGRESS NOTE DIAGNOSES: Seropositive rheumatoid arthritis Interstitial lung disease DVT and PE Atrial fibrillation Congestive heart failure Sleep apnea Hypothyroidism DJD hips Osteopenia S/p suprapubic catheterization Chief Complaint: Follow up SUBJECTIVE: Last seen in clinic on 05/21/24. On therapy with subcutaneous Orencia, prednisone 2.5 mg a day and hydroxychloroquine 200 mg b.i.d.. Denies any RA flare symptoms. Tolerating Orencia well. Partial response to steroid injection in the hip on Dec 20. Is getting ready for steroid injection into the L spine on 08/07/24. Left leg gives out form time to time. Review of Systems: All systems negative except as above. Current Outpatient Medications Medication Sig Dispense Refill abatacept (Orencia ClickJect) 125 mg/mL auto-injector Inject 1 mL (125 mg total) under the skin once a week 4 mL 3 acetaminophen 325 mg capsule Take by mouth alendronate (FOSAMAX) 70 mg tablet calcium carbonate-vit D3-min 600 mg calcium- 400 unit tablet Take by mouth 2 (two) times a day cephalexin (KEFLEX) 250 mg capsule Take 1 capsule (250 mg total) by mouth daily cholecalciferol (VITAMIN D-3) 2000 unit tablet Take 0.5 tablets (1,000 Units total) by mouth daily cholestyramine light 4 gram packet MIX 1 PACKET WITH LIQUID AND DRINK EVERY DAY WITH A MEAL. AVOID OTHER MEDS WITHIN 1 HOUR BEFORE OR 4 TO 6 HOURS AFTER DOSE cyanocobalamin (Vitamin B-12) 1,000 mcg tablet Take 1 tablet (1,000 mcg total) by mouth daily dilTIAZem CD (CARDIZEM CD) 300 mg 24 hr capsule Take 1 capsule (300 mg total) by mouth daily [address] (CYMBALTA) 20 mg capsule Take 1 capsule (20 mg total) by mouth daily Eliquis 5 mg tablet Take 1 tablet (5 mg total) by mouth 2 (two) times a day furosemide (LASIX) 40 mg tablet Take 1 tablet (40 mg total) by mouth 2 (two) times a day 180 tablet2 hydroxychloroquine (PLAQUENIL) 200 mg tablet Take 1 tablet (200 mg total) by mouth 2 (two) times a day 180 tablet 1 levothyroxine (SYNTHROID) 112 mcg tablet Take 1 tablet (112 mcg total) by mouth daily metoprolol XL (TOPROL-XL) 100 mg 24 hr tablet Take 1 tablet (100 mg total) by mouth daily To be taken with Metoprolol 50 mg tablet once daily 90 tablet 3 metoprolol XL (TOPROL-XL) 50 mg extended release tablet Take 1 tablet (50 mg total) by mouth daily To be taken with Metoprolol 100 mg tablet once daily [address] (PROTONIX) 40 mg EC tablet TAKE 1 TABLET(40 MG) BY MOUTH DAILY 90 tablet 1 potassium chloride ER (KLOR-CON) 20 mEq CR tablet 1 tablet (20 mEq total) 2 (two) times a day pravastatin (PRAVACHOL) 80 mg tablet Take 1 tablet (80 mg total) by mouth daily predniSONE (DELTASONE) 2.5 mg tablet TAKE 1 TABLET(2.5 MG) BY MOUTH DAILY 90 tablet 1 sacubitriL-valsartan (ENTRESTO) 24-26 mg tablet Take 1 tablet by mouth 2 (two) times a day 180 tablet 3 traMADoL (ULTRAM) 50 mg tablet Take 1 tablet (50 mg total) by mouth every 8 (eight) hours as neededfor pain 21 tablet 0 No current facility-administered medications for this visit. Objective: BP 125/62 (BP Location: Right arm, Patient Position: Sitting) Pulse 60 Temp 36.6 ??C (97.8 ??F)(Oral) Wt 110.2 kg (243 lb) BMI 44.45 kg/m?? General: alert, cooperative, no acute distress, appears uncomfortable Skin: Rash - Nodules: - Lungs: clear to auscultation bilaterally Heart: regular rate and rhythm, S1, S2 normal Abdomen: soft without mass, non-tender, with normal bowel sounds Joint Review Right Left Shoulder normal Mild tenderness over the joint line and ROM intact Elbow normal normal Wrist normal normal MCP normal normal PIP normal normal DIP normal normal Knee Surgical scar in place; tenderness over the joint line Tenderness over the medial joint line and ROM; surgical scar in place Ankle normal Sensitive to touch Foot normal normal Normal Hip ROM: Unable to assess d/t wheelchair bound status SI Joints: normal Spine: Normal alignment, no tenderness to palpation Swollen Joints: 3 Trigger/ tender Points; Tight Muscle Groups: no WBC Date Value Ref Range Status 01/15/2024 11.2 (H) 3.8 - 9.9 K/cumm Final Comment: Testing performed by: [address] [id number] 10/09/2023 10.3 (H) 3.8 - 9.9 K/cumm Final Comment: Testing performed by: [address] [id number] 06/02/2022 10.2 (H) 3.8 - 9.9 K/cumm Final White Blood Count Date Value Ref Range Status 05/05/2024 8.8 3.6 - 11.2 K/uL Final 02/27/2023 6.8 3.6 - 11.2 K/uL Final Comment: Repeated and Verified 08/24/2022 16.0 (H) 3.6 - 11.2 K/uL Final Hgb Date Value Ref Range Status 01/15/2024 9.5 (L) 11.9 - 15.5 g/dL Final Comment: Testing performed by: [address] [id number] 10/09/2023 9.7 (L) 11.9 - 15.5 g/dL Final Comment: Interpretive Data A reference range for this assay has not been established for patients with an unknown legal sex. Please refer to the laboratory test catalog for established sex-specific reference intervals. Current interpretive data was last revised on 2023. Testing performed by: [address] [id number] 06/02/2022 10.9 (L) 11.9 - 15.5 g/dL Final Hemoglobin Date Value Ref Range Status 05/05/2024 9.4 (L) 11.9 - 15.5 g/dL Final Comment: Repeated and Verified 02/27/2023 11.0 (L) 11.9 - 15.5 g/dL Final 08/24/2022 10.3 (L) 11.9 - 15.5 g/dL Final Platelet Count Date Value Ref Range Status 05/05/2024 213 140 - 440 K/uL Final 02/27/2023 182 140 - 440 K/uL Final Comment: Repeated and Verified 08/24/2022 238 140 - 440 K/uL Final Comment: Repeated and Verified MCV Date Value Ref Range Status 05/05/2024 94.7 80.0 - 97.6 fL Final 01/15/2024 98.4 (H) 81.3 - 96.4 fL Final Comment: Testing performed by: [address] [id number] 10/09/2023 103.2 (H) 81.3 - 96.4 fL Final Comment: Testing performed by: [address] [id number] 02/27/2023 94.9 80.0 - 97.6 fL Final 08/24/2022 96.2 80.0 - 97.6 fL Final 06/02/2022 97.2 (H) 81.3 - 96.4 fL Final SCRIBED Creatinine Date Value Ref Range Status 06/24/2023 1.20 (A) 0.7 - 1.0 mg/dl Final Creatinine Date Value Ref Range Status 05/05/2024 1.17 (H) 0.60 - 1.10 mg/dL Final 01/15/2024 1.00 0.60 - 1.10 mg/dL Final Comment: Testing performed by: [address] [id number] 10/09/2023 1.10 0.60 - 1.10 mg/dL Final Comment: Testing performed by: [address] [address] 02/27/2023 1.37 (H) 0.60 - 1.10 mg/dL Final 08/24/2022 1.35 (H) 0.60 - 1.10 mg/dL Final 06/06/2022 1.44 (H) 0.60 - 1.10 mg/dL Final BUN Date Value Ref Range Status 05/05/2024 25 (H) 7 - 23 mg/dL Final 02/27/2023 29 (H) 7 - 23 mg/dL Final 08/24/2022 36 (H) 7 - 23 mg/dL Final Sodium Date Value Ref Range Status 01/15/2024 140 135 - 145 mmol/L Final Comment: Testing performed by: [address] [id number] 10/09/2023 138 135 - 145 mmol/L Final Comment: Testing performed by: [address] [id number] 06/06/2022 140 135 - 145 mmol/L Final Potassium, pl Date Value Ref Range Status 01/15/2024 4.3 3.3 - 4.9 mmol/L Final Comment: Testing performed by: [address] [address] 10/09/2023 4.8 3.3 - 4.9 mmol/L Final Comment: HEMOLYZED: Hemolysis interferes with the above test. Testing performed by: [address] [address] 06/06/2022 4.2 3.3 - 4.9 mmol/L Final AST Date Value Ref Range Status 01/15/2024 10 10 - 45 Units/L Final Comment: Testing performed by: [address] [id number] 10/09/2023 20 10 - 45 Units/L Final Comment: HEMOLYZED: Hemolysis interferes with the above test. Testing performed by: [address] [id number] 05/29/2022 26 10 - 45 Units/L Final AST (SGOT) Date Value Ref Range Status 05/05/2024 14 11 - 47 IU/L Final 02/27/2023 17 11 - 47 IU/L Final 08/24/2022 15 11 - 47 IU/L Final ALT Date Value Ref Range Status 01/15/2024 8 7 - 45 Units/L Final Comment: Testing performed by: [address] [id number] 10/09/2023 7 7 - 45 Units/L Final Comment: HEMOLYZED: Hemolysis interferes with the above test. Testing performed by: [address] [address] 05/29/2022 21 7 - 45 Units/L Final ALT (SGPT) Date Value Ref Range Status 05/05/2024 6 6 - 53 IU/L Final Comment: Repeated and Verified 02/27/2023 9 6 - 53 IU/L Final Comment: Repeated and Verified 08/24/2022 11 6 - 53 IU/L Final Alk phos Date Value Ref Range Status 01/15/2024 33 (L) 40 - 130 Units/L Final Comment: Testing performed by: [address] [id number] 10/09/2023 46 40 - 130 Units/L Final Comment: Testing performed by: [address] [id number] 05/29/2022 100 40 - 130 Units/L Final Alk Phos, Total Date Value Ref Range Status 05/05/2024 37 35 - 129 IU/L Final Comment: Repeated and Verified 02/27/2023 40 35 - 129 IU/L Final 08/24/2022 56 35 - 129 IU/L Final Bilirubin, total Date Value Ref Range Status 01/15/2024 0.2 0.1 - 1.2 mg/dL Final Comment: Testing performed by: [facility], [address] [place] [address]., [id number] 10/09/2023 0.2 0.1 - 1.2 mg/dL Final Comment: Testing performed by: [facility], [address] [place] [address]., [id number] 05/29/2022 0.3 0.1 - 1.2 mg/dL Final Total Bilirubin Date Value Ref Range Status 05/05/2024 0.18 (L) 0.20 - 1.40 mg/dL Final Comment: Repeated and Verified 02/27/2023 0.21 0.20 - 1.40 mg/dL Final 08/24/2022 0.23 0.20 - 1.40 mg/dL Final ANCILLARY STUDIES: MRI L spine 07/16/24: Multilevel lumbar degenerative disc and joint disease, as detailed level by level above. There is wyzd-oz-[id number] spinal canal stenosis at L4-L5 and mild spinal canal stenosis at L2-L3 and L3-L4. Multilevel neural foraminal stenosis, up to lczz-ja-zcuchleu on the right at T12-L1. Unchanged T11 and T12 compression fractures. Mild STIR signal hyperintensity within the T9 through T11 vertebrae is favored to be related to poor fat suppression, given the appearance of the prevertebral soft tissues at this level. 10 mm focus of STIR signal hyperintensity at T10 without T1 hypointense marrow replacing signal, nonspecific but most likely a hemangioma with atypical components. ASSESSMENT & PLAN: Seropositive Rheumatoid Arthritis --Diagnosed 2018, placed on HCQ & MTX with progressive decline in respiratory status, particularly worsened after influenza in Sep 2021 -- MTX d/c'd in Nov 2021 --Currently on HCQ 200 BID, abatacept injections weekly, and prednisone 2.5 mg/day --continue the course for now --serial eye exams while on HCQ therapy --obtain x-ray of left knee due to complain of leg giving out 2. Interstitial Lung Disease -- likely related to RA -- being followed by Pulmonary -- stable 3. Osteopenia -- Most recent DEXA scan shows T score of -2.4 at the hip and -2.3 at the spine -- Recent traumatic fracture of the spine and past atraumatic compression fractures -- alendronate since 02/14 and also on calcium and vitamin-D 4.DJD L Hip: --minimal response to steroid injection 5. DJD L spine: --being set up for steroid injection involving the L-spine The patient is to return to clinic in 3 months. Be advised that voice recognition software has been used on this chart and inadvertent errors may occur. These may not represent a true interpretation of the dictation given. documented in this encounter Plan of Treatment Scheduled Orders Name Type Priority Associated Diagnoses Orde r Schedule XR Knee Left 4 or More Views Imaging Schedule Routine, Read Routine (OP Routine) Left knee pain, unspecified chronicity Expected: 08/05/2024, Expires: 08/05/2025 documented as of this encounter Results * T-SPOT.TB Blood (08/05/2024 9:23 AM CDT) [...] test. T-SPOT.TB Panel A Spot Count 0 [facility] T-SPOT.TB Panel B Spot Count 0 [facility] T-SPOT.TB Negative Control Passed [facility] T-SPOT.TB Positive Control Passed [facility] Comment: Test Performed at: [facility], [employer] [address] [place] [address] ??[phone] ? ORLANDO VALDERRAMA,PHD Blood 08/05/2024 9:23 AM CDT 08/05/2024 12:12 PM CDT Sandra Bauman MD LAB MICROBIOLOGY - GENERAL ORDER KHOA Final Result Performing Organization Address [facility] Co de Phone Number [facility] [place] [address] * Erythrocyte sedimentation rate (08/05/2024 9:23 AM CDT) Erythrocyte sedimentation rate 28 1 - 30 mm/hr Blood 08/05/2024 9:23 AM CDT 08/05/2024 11:31 AM CDT Sandra Bauman MD LAB BLOOD ORDERABLES Final Resul t Performing Organization Address [facility] de Phone Number 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
--- OUTSIDE RECORDS SUMMARY | 2024-11-15 05:53 | XMS_ITS | Referral Summary ---
Author Organization [facility] [address] Address [address] [place] [address] Care Team Providers Care Forestry Professor Name Role Phone Ni Armas RN Unavailable Lizette Timothy Land MD Primary Care Provider [phone] Encounters Date Type Department Care Team Description 10/08/2024 12:30 PM NEONATAL NURSE PRACTITIONER Office Visit [facility] Pulmonary [facility] [address] [place] [address] [place] [phone] Denita Correa MD ILD (interstitial lung disease) (CMS/HCC) ([facility]) (Primary Dx); Rheumatoid arthritis, involving unspecified site, unspecified whether rheumatoid factor present (HCC); Recurrent major depressive disorder, in partial remission (HCC); Body mass index 40.0-44.9, adult (CMS/HCC) (HCC); Stage 3a chronic kidney disease (HCC) 10/08/2024 11:20 AM NEONATAL NURSE PRACTITIONER - 10/08/2024 11:59 PM NEONATAL NURSE PRACTITIONER Hospital Encounter [facility] Pulmonary [address] [facility] [facility] [address] [place] [id number] ILD (interstitial lung disease) (CMS/HCC) (HCC) Discharge Disposition: Discharge to home or self care 09/18/2024 Telephone [facility] Pulmonary [facility] [address] [place] [address] [place] [id number] Ni Armas RN from Last 3 Months Allergies No known active allergies Medications pravastatin (PRAVACHOL) 80 mg tablet Take 1 tablet (80 mg total) by mouth daily 0 Active levothyroxine (SYNTHROID) 112 mcg tablet Take 1 tablet (112 mcg total) by mouth daily 9 Active cholecalciferol (VITAMIN D-3) 2000 unit tablet Take 0.5 tablets (1,000 Units total) by mouth daily Active calcium carbonate-vit D3-min 600 mg calcium- 400 unit tablet Take by mouth 2 (two) times a day Active Eliquis 5 mg tablet Take 1 tablet (5 mg total) by mouth 2 (two) times a day [address] (CYMBALTA) 20 mg capsule Take 1 capsule (20 mg total) by mouth daily 1 Active acetaminophen 325 mg capsule Take by mouth A ctive traMADoL (ULTRAM) 50 mg tablet Take 1 tablet (50 mg total) by mouth every 8 (eight) hours as needed for pain 21 tablet 2 Active potassium chloride ER (KLOR-CON) 20 mEq CR tablet 1 tablet (20 mEq total) 2 (two) times a day 2 Active alendronate (FOSAMAX) 70 mg tablet 3 Active cyanocobalamin (Vitamin B-12) 1,000 mcg tabletIndicatio ns:Prevention of Vitamin B12 Deficiency Take 1 tablet (1,000 mcg total) by mouth daily Active cholestyramine light 4 gram packet MIX 1 PACKET WITH LIQUID AND DRINK EVERY DAY WITH A MEAL. AVOID OTHER MEDS WITHIN 1 HOUR BEFORE OR 4 TO 6 HOURS AFTER DOSE 3 Active abatacept (Orencia ClickJect) 125 mg/mL auto-injector Inject 1 mL (125 mg total) under the skin once a week 4 mL [address] (PROTONIX) 40 mg EC tablet TAKE 1 TABLET(40 MG) BY MOUTH DAILY 90 tablet 1 4 Active hydroxychloroqu ine (PLAQUENIL) 200 mg tablet Take 1 tablet (200 mg total) by mouth 2 (two) times a day 180 tablet 1 4 Active sacubitriL-vals razia (ENTRESTO) 24-26 mg tabletIndicatio ns:chronic heart failure Take 1 tablet by mouth 2 (two) times a day 180 tablet 3 4 Active dilTIAZem CD (CARDIZEM CD) 300 mg 24 hr capsule Take 1 capsule (300 mg total) by mouth daily 90 capsule 2 4 Active metoprolol XL (TOPROL-XL) 50 mg extended release tablet Take 1 tablet (50 mg total) by mouth daily To be taken with Metoprolol 100 mg tablet once daily 90 tablet 3 4 01/16/20 25 Active metoprolol XL (TOPROL-XL) 100 mg 24 hr tablet Take 1 tablet (100 mg total) by mouth daily To be taken with Metoprolol 50 mg tablet once daily 90 tablet 3 4 01/16/20 25 Active furosemide (LASIX) 40 mg tablet Take 1 tablet (40 mg total) by mouth 2 (two) times a day 180 tablet 2 4 Active Additional Information Patient taking differently: 80 mgoral 2 times daily, Reported on 10/08/2024 cephalexin (KEFLEX) 250 mg capsule Take 1 capsule (250 mg total) by mouth daily 4 Active predniSONE (DELTASONE) 2.5 mg tablet TAKE 1 TABLET(2.5 MG) BY MOUTH DAILY 90 tablet 1 4 Active traZODone (DESYREL) 50 mg tablet TAKE 1 TABLET BY MOUTH EVERY DAY AT BEDTIME NEEDED FOR INSOMNIA 4 Active MAGNESIUM ORAL Take 250 mg by mouth daily Active Active Problems Problem Noted Date Diagnosed Date Body mass index 40.0-44.9, adult ([facility]) 01/17 Pulmonary hypertension 12/12/2023 Osteoarthritis 12/12/2023 Dilated cardiomyopathy ([facility]) 04/12/2023 HFrEF (heart failure with re duced ejection fraction) ([facility]) 04/12/2023 Primary hypertension 06/28/2022 Assessment & Plan (07/03/2022 11:37 AM CDT): BP flucutates, pulse improved. Continues on Toprol 50mg & Lisinopril 5mg. Will increase Lisinopril to 10mg & pt needs to f/u with Field Mechanic outpt. Assessment & Plan (06/28/2022 10:57 AM CDT): BP fluctuates. Continues on Toprol 50mg daily, Lisinopril 5mg, Lasix 60mg daily. Monitor for need to increase medication if BP continues to remain elevated. Pulse stable. Chronic UTI 06/21/2022 Assessment & Plan (06/21/2022 10:32 AM CDT): Takes Bactrim 100mg qhs for prophylaxis. Resume today. Was not transferred on med but have confirmed with patient and record she should continue on. History of pulmonary embolus (PE) 06/10/2022 Assessment & Plan (06/10/2022 11:34 AM CDT): Patient has history of DVT and PE x 2, 1st episode was provoked and the 2nd episode occurred with discontinuation on Coumadin. Continue Eliquis 5 mg b.i.d. Hypothyroidism 06/04/2022 Assessment & Plan (06/10/2022 11:27 AM CDT): Continue levothyroxine 112 mg daily. Assessment & Plan (06/05/2022 1:44 PM CDT): Continue levothyroxine. Assessment & Plan (06/04/2022 1:16 PM CDT): Continue levothyroxine. Hyperlipidemia, unspecified 05/27/2022 Assessment & Plan (06/10/2022 11:31 AM CDT): Continue home med pravastatin 80 mg daily Assessment & Plan (06/05/2022 1:40 PM CDT): c/w pravastatin Assessment & Plan (06/04/2022 1:14 PM CDT): c/w pravastatin Assessment & Plan (05/27/2022 8:23 PM CDT): c/w pravastatin Recurrent major depressive disorder, in partial remission 05/27/2022 Assessment & Plan (06/10/2022 11:25 AM CDT): Mood stable. Continue home med Zoloft 50 mg, Cymbalta Assessment & Plan (06/05/2022 1:42 PM CDT): Holding home SSRI in setting of linezolid use, okay to resume following completion of antibiotic course Assessment & Plan (05/27/2022 8:23 PM CDT): hold duloxetine due to decreased Cr, setraline Chronic respiratory failure with hypoxia (CMS/HC C) 04/17/2022 Assessment & Plan (07/03/2022 11:31 AM CDT): Resp status stable. Restart duonebs at home. Montior. F/u with pulm outpt, will need to reschedule PFT testing. Assessment & Plan (06/28/2022 10:57 AM CDT): Resp stable. Assessment & Plan (06/25/2022 12:55 PM CDT): Resp. Status stable. Continue Inhalers. Assessment & Plan (06/21/2022 10:31 AM CDT): Resp status stable. Assessment & Plan (06/11/2022 3:08 PM CDT): Continues on O2, Resp status stable. Monitor. Assessment & Plan (06/10/2022 11:22 AM CDT): 2/2 ILD, STARR, COVID. Pulmonary status stable on her baseline oxygen requirement of 2L at rest, 4L with exertion.?? Continue Anoro Ellipta. Follow-up Pulmonary outpatient. Has an appointment with Pulmonary on 06/15 at [facility] for PFTs, may need to reschedule Assessment & Plan (06/07/2022 12:05 PM CDT): 2/2 ILD, STARR. Baseline 2L at rest, 4L w/ exertion -Continuous pulse ox while with COVID. -cont home prednisone, holding abetacept while acutely ill -> per rheum okay to restart as an outpatient -cont CPAP QHS on home machine. Assessment & Plan (06/04/2022 1:14 PM CDT): -2/2 ILD, STARR -Continuous pulse ox while with COVID. -Remains at baseline 2L at rest, 4L with exertion. -cont home prednisone, holding abetacept while acutely ill. -cont CPAP at night. Assessment & Plan (06/03/2022 8:30 AM CDT): -2/2 ILD, STARR -Continuous pulse ox while with COVID. -Remains at baseline 2L at rest, 4L with exertion. -cont home prednisone, holding abetacept while acutely ill. -cont CPAP at night. Assessment & Plan (06/02/2022 8:44 AM CDT): -2/2 ILD, STARR -Continuous pulse ox while with COVID. -Remains at baseline 2L at rest, 4L with exertion. -cont home prednisone, holding abetacept while acutely ill -cont CPAP at night. Assessment & Plan (06/01/2022 8:18 AM CDT): -2/2 ILD, STARR -Continuous pulse ox while with COVID. -Remains at baseline 2L at rest, 4L with exertion. -cont home prednisone, holding abetacept while acutely ill -cont CPAP at night Assessment & Plan (05/31/2022 5:11 PM CDT): -2/2 ILD, STARR -Continuous pulse ox while with COVID. -Remains at baseline 2L at rest, 4L with exertion. -cont home prednisone, holding abetacept while acutely ill -CPAP at night Assessment & Plan (05/30/2022 8:31 AM CDT): Continuous pulse ox while with COVID. -Remains at baseline 2L at rest, 4L with exertion. Assessment & Plan (05/29/2022 4:24 PM CDT): Continuous pulse ox while with COVID. -Remains at baseline 2L at rest, 4L with exertion. Assessment & Plan (05/28/2022 1:19 PM CDT): Continuous pulse ox while with COVID. Baseline 2L at rest, 4L with exertion. H/O influenza 11/02/2021 STARR on CPAP 07/07/2020 Assessment & Plan (06/10/2022 11:31 AM CDT): Compliant with CPAP. Continue using nighttime Assessment & Plan (06/05/2022 1:32 PM CDT): CPAP at night-home unit at bedside, brought in by daughter Encourage nightly use. Assessment & Plan (06/04/2022 1:12 PM CDT): CPAP at night-home unit at bedside, brought in by daughter Encourage nightly use. Assessment & Plan (06/03/2022 8:32 AM CDT): CPAP at night-home unit at bedside, brought in by daughter Encourage nightly use. Assessment & Plan (06/02/2022 8:45 AM CDT): CPAP at night-home unit brought in by daughter. Encourage nightly use. Assessment & Plan (06/01/2022 8:19 AM CDT): CPAP at night-home unit brought in by daughter. Encourage nightly use. Assessment & Plan (05/31/2022 5:11 PM CDT): CPAP at night-home unit brought in by daughter. Encourage nightly use. Assessment & Plan (05/30/2022 8:32 AM CDT): CPAP at night-home unit brought in by daughter. Encourage nightly use Assessment & Plan (05/29/2022 4:27 PM CDT): CPAP at night-home unit brought in by daughter Assessment & Plan (05/27/2022 8:22 PM CDT): CPAP at night Rheumatoid arthritis 05/05/2020 Assessment & Plan (07/03/2022 11:34 AM CDT): Continue Plaquenil & Prednisone - f/u with Rheum outpt. Assessment & Plan (06/10/2022 11:30 AM CDT): Held??abatacept (DMARD) during acute illness phase, per rheumatology it can be resumed on discharge. Will continue plaquenil, prednisone 15 mg daily. Follows up with director of workforce development, Dr. Bauman outpatient. ?? Assessment & Plan (06/06/2022 11:02 AM CDT): Home meds: prednisone, plaquenil, abatacept - Hold abatacept in setting of acute illness -> okay to resume upon DC - Cont home plaquenil and prednisone Assessment & Plan (06/04/2022 1:14 PM CDT): -Holding abatacept during acute illness. Continuing plaquenil and prednisone -will coordinate with rheumatology prior to discharge re: abatacept Assessment & Plan (06/03/2022 12:18 PM CDT): -Holding abatacept during acute illness. Continued plaquenil. -would let her Rheum know prior to discharge re: abatacept Assessment & Plan (06/02/2022 8:46 AM CDT): holding abatacept during acute illness. Continued plaquenil. Assessment & Plan (06/01/2022 8:19 AM CDT): holding abatacept. Continued plaquenil Assessment & Plan (05/31/2022 5:11 PM CDT): holding abatacept. Continued plaquenil Assessment & Plan (05/30/2022 8:32 AM CDT): holding abatacept. Continued plaquenil Assessment & Plan (05/29/2022 4:26 PM CDT): holding abatacept. Continue plaquenil Assessment & Plan (05/27/2022 8:22 PM CDT): hold abatacept. Continue plaquinel Longstanding persistent atrial fibrillation ([facility] /HCC) 02/09/2020 Assessment & Plan (06/25/2022 12:56 PM CDT): SEE ABOVE Assessment & Plan (06/18/2022 9:44 PM CDT): HR fluctuates. Continue Eliquis 5 mg b.i.d. will follow-up with cardiology on 06/22 Assessment & Plan (06/10/2022 11:29 AM CDT): While inpatient had afib with slow ventricular rate with intermittent pauses up to 3 seconds, metoprolol 125 mg discontinued. Remdesivir dc'd due to bradycardia/pauses. Pt was continued on eliquis. Follow-up cardiology, Dr. Reyes/ Yolanda Soto, LABORATORY MECHANICAL TECHNICIAN on 06/22/22 10 am. Assessment & Plan (06/07/2022 12:06 PM CDT): History of chronic A.fib prior to admission. Home regimen = metoprolol XL 125, eliquis. Pt reports history of RVR as an outpatient, with recent home dose adjustment prior to admission - Hold metoprolol for series of bradycardia/pauses throughout admission- remains rate controlled (HR <110) off metoprolol - telemetry - will need to f/u w/ her casino banker for further management upon DC Assessment & Plan (06/04/2022 6:03 PM CDT): -Chronic, on home metoprolol (now holding for persistent bradycardia/pauses) and eliquis. Patient reports history of RVR at home with recent dose escalation to 125 mg XL -CTM on tele given bradycardia/pauses. Assessment & Plan (06/03/2022 12:17 PM CDT): -Chronic, on home metoprolol (dose decreased again today for persistent bradycardia/pauses) and eliquis -CTM on tele given bradycardia/pauses->remdesivir d/c'd after 2 doses Assessment & Plan (06/01/2022 8:19 AM CDT): -Chronic, on home metoprolol (dose decreased for persistent bradycardia/pauses) and eliquis -CTM on tele given bradycardia/pauses->remdesivir d/c'd Assessment & Plan (05/31/2022 5:11 PM CDT): -Chronic, on home metoprolol (dose decreased for persistent bradycardia/pauses) and eliquis -CTM on tele given bradycardia/pauses->remdesivir d/c'd Assessment & Plan (05/30/2022 2:03 PM CDT): -Chronic, on home metoprolol (dose decreased for persistent bradycardia/pauses) and eliquis -CTM on tele given bradycardia/pauses->remdesivir d/c'd Assessment & Plan (05/29/2022 4:27 PM CDT): c/w home metoprolol and eliquis -CTM on tele given bradycardia/pauses->remdesivir d/c'd Assessment & Plan (05/27/2022 8:21 PM CDT): c/w home metoprolol and eliquis Chronic anticoagulation 02/09/2020 ILD (interstitial lung disease) ([facility]) Assessment & Plan (06/10/2022 11:25 AM CDT): At baseline on supplemental oxygen 2 L at rest, 4 L with exertion, prednisone 15 mg, abatacept on hold. Follows up with Pulmonary, Dr. Norman and director of workforce development Dr. Bauman. PFT scheduled at [facility] 06/15 Assessment & Plan (06/07/2022 12:06 PM CDT): No increased oxygen requirement or symptoms of dyspnea. Baseline 2L at rest, 4L w/ exertion. Home meds = pred 15, abetacept; follows with Dr. Bauman - discussed with Rheum for timing of abetacept resumption, ok to resume on discharge. - Continue pred 15 mg Assessment & Plan (06/04/2022 6:02 PM CDT): No increased oxygen requirement or symptoms of dyspnea. c/w prednisone 15mg. Hold abetacept. Will need to coordinate timing of resumption with rheumatology ([facility], Dr. Sandra Bauman) closer to discharge. Assessment & Plan (05/27/2022 8:22 PM CDT): No increased oxygen requirement or symptoms of dyspnea. c/w prednisone 15mg, bactrim. Hold abetacept. Message rheum (usually hold 7-10 days until sx resolve) Resolved Problems Problem Noted Date Diagnosed Date Resolved Date Morbid (severe) obesity due to excess calories 01/17/2024 10/13/2024 CKD (chronic kidney disease) stage 3, GFR 30-59 ml/min 04/12/2023 10/13/2024 Acute pain of left shoulder 06/21/2022 06/28/2022 Assessment & Plan (06/25/2022 12:55 PM CDT): Improved Assessment & Plan (06/21/2022 10:44 AM CDT): Believes from pulleys in therapy. Will add lidoderm patch. Monitor. Acute on chronic diastolic C HF (congestive heart failure) ([facility]) 06/10/2022 06/25/2022 Assessment & Plan (06/21/2022 10:31 AM CDT): Edema controlled. Continue to monitor. Labs stable. Continue GEORGI wraps. Assessment & Plan (06/18/2022 9:41 PM CDT): Edema lower extremity controlled. Will continue for now on Lasix 60 mg daily, renal function stable on this dose. Monitor lytes and weight. Assessment & Plan (06/11/2022 3:07 PM CDT): Acute phase resolved. Cr stable. Will increase Lasix to 60mg every day in am. Monitor. Assessment & Plan (06/10/2022 11:15 AM CDT): TTE 01/16: EF 55-60%. Currently compensating well. Was on home Lasix 60 mg, discontinued inpatient due to MIKE. Recommended to resume on 06/10. Will resume with 20 mg daily, monitor creatinine, weights and lytes. Follow-up cardiology outpatient Acute cystitis without hematuria 06/10/2022 06/11/2022 Assessment & Plan (06/10/2022 11:33 AM CDT): Hx chronic UTis, on trimethoprim chronically->follows outpatient with Urology. WBC elevated to 10.6 on 05/29/22. Ux > 100,000 colonies/mL of Enterococcus faecium->Amp resistant. Treated with Linezolid 600mg PO BID on 06/01 - 06/07. Held Zoloft while on Linezolid (avoid serotonin syndrome). Resumed on discharge. Hyperkalemia 06/06/2022 06/07/2022 Assessment & Plan (06/07/2022 12:05 PM CDT): K 5.6 on 06/06, likely in setting of MIKE K trend: 4.4 -> 4.9 -> 5.1 -> 5.6 -> normalized after lokelma. No ECG changes 06/06 AM Scheduled lokelma TID x 1 day MIKE (acute kidney injury) 06/04/2022 Assessment & Plan (06/07/2022 12:04 PM CDT): Baseline Cr ~1.3, increased to 1.8 in setting of diuresis Currently holding home furosemide. Had MIKE which improved with holding lasix. Hyperkalemia normalized on next check. Assessment & Plan (06/04/2022 6:00 PM CDT): Baseline Cr ~1.3, now up to 1.8 in the setting of diuresis. Currently holding home furosemide. Continue to trend Cr. Monitor daily weight and volume status UTI (urinary tract infection ) due to Enterococcus 05/31/2022 06/07/2022 Assessment & Plan (06/06/2022 11:09 AM CDT): Pt with Hx chronic UTis, on trimethoprim chronically->follows outpatient with Urology. UA with 3+ leukocytes, 3+ blood, 2+ bacteria, RBCs 11-20, >50 WBCs. Patient report urinary frequency. Urine culture Greater than or equal to 100,000 colonies/mL of Enterococcus faecium - Linezolid 600mg po BID, plan 7 days (last dose 06/07). Holding Zoloft while on Linezolid (avoid serotonin syndrome) Assessment & Plan (06/04/2022 1:15 PM CDT): -pt with Hx chronic UTis, on trimethoprim chronically->follows outpatient with Urology -UA with 3+ leukocytes, 3+ blood, 2+ bacteria, RBCs 11-20, >50 WBCs. Patient report urinary frequency -WBC ~10, remains afebrile -Urine culture Greater than or equal to 100,000 colonies/mL of Enterococcus faecium -Sensitivities noted -Day #4 Linezolid 600mg po BID, plan 7 days. Holding Zoloft while on Linezolid (avoid serotonin syndrome) Assessment & Plan (06/03/2022 8:35 AM CDT): -pt with Hx chronic UTis, on trimethoprim chronically->follows outpatient with Urology -UA with 3+ leukocytes, 3+ blood, 2+ bacteria, RBCs 11-20, >50 WBCs. Patient report urinary frequency -WBC ~10, remains afebrile -Urine culture Greater than or equal to 100,000 colonies/mL of Enterococcus faecium -Sensitivities noted -Day #3 Linezolid 600mg po BID, plan 7 days. Holding Zoloft while on Linezolid (avoid serotonin syndrome) Assessment & Plan (06/02/2022 8:46 AM CDT): -pt with Hx chronic UTis, on trimethoprim chronically->follows outpatient with Urology -UA with 3+ leukocytes, 3+ blood, 2+ bacteria, RBCs 11-20, >50 WBCs, patient denies symptoms, remains asx -WBC ~10, remains afebrile -Urine culture Greater than or equal to 100,000 colonies/mL of Enterococcus faecium -Sensitivities reviewed -Start Linezolid 600mg po BID, plan 7 days. Holding Zoloft while on Linezolid (avoid serotonin syndrome) Assessment & Plan (06/01/2022 1:55 PM CDT): -pt with Hx chronic UTis, on trimethoprim chronically->follows outpatient with Urology -UA with 3+ leukocytes, 3+ blood, 2+ bacteria, RBCs 11-20, >50 WBCs, patient denies symptoms, remains asx -WBC ~10, remains afebrile -Urine culture Greater than or equal to 100,000 colonies/mL of Enterococcus faecium -Sensitivities reviewed -Start Linezolid 600mg po BID, plan 7 days. Holding Zoloft while on Linezolid (avoid serotonin syndrome) Assessment & Plan (05/31/2022 5:16 PM CDT): -pt with Hx chronic UTis, on trimethoprim chronically->follows outpatient with Urology -UA with 3+ leukocytes, 3+ blood, 2+ bacteria, RBCs 11-20, >50 WBCs, patient denies symptoms, remains asx -WBC ~10, afebrile -Urine culture Greater than or equal to 100,000 colonies/mL of Enterococcus faecium -Sensitivities pending -Given lack of symptoms and HD stability, will defer antibx pending final sensitivity results Acute on chronic heart failure ([facility]) 05/27/2022 06/07/2022 Assessment & Plan (06/07/2022 12:04 PM CDT): 2/2 dietary indiscretion vs COVID vs bacterial pneumonia. -Diuresed with IV lasix, now euvolemic->on home 60mg po Lasix since 05/30 (held 06/03-06/05 secondary to MIKE) -stable pulmonary status on home oxygen need (2L at rest, 4L with activity) -discontinued metoprolol in setting of recurrent bradycardia and pauses on tele -held lasix with improvement in MIKE. -last TTE 12/2021 per outside notes with EF 55-60% -strict I/o, daily standing weights Assessment & Plan (06/04/2022 5:59 PM CDT): 2/2 dietary indiscretion vs COVID vs bacterial pneumonia. -Diuresed with IV lasix, now euvolemic->on home 60mg po Lasix since 05/30-held 06/03 and 06/04 for rising Cr -stable pulmonary status on home oxygen need (2L at rest, 4L with activity) -decrease metoprolol succinate 100 mg --> 50 mg daily for bradycardia on telemetry, will hold tomorrow. (home dose 125 mg). -last TTE 12/2021 per outside notes with EF 55-60% -strict I/o, daily standing weights (overall down ~4 kg since admit) Assessment & Plan (06/03/2022 8:29 AM CDT): 2/2 dietary indiscretion vs COVID vs bacterial pneumonia. -Diuresed with IV lasix, now euvolemic->on home 60mg po Lasix since 05/30-hold today for Cr bump -stable pulm status on home oxygen need (2L at rest, 4L with activity) -continue home metop (dose decreased for bradycardia) -last TTE 12/2021 per outside notes with EF 55-60% -strict I/o, daily standing weights (down ~7 kg since admit) Assessment & Plan (06/02/2022 8:44 AM CDT): 2/2 dietary indiscretion vs COVID or bacterial pneumonia. -Diuresed with IV lasix, now euvolemic->back on home 60mg po Lasix since 05/30 -stable pulm status on home oxygen need (2L at rest, 4L with activity) -continue home metop (dose decreased for bradycardia) -last TTE 12/2021 per outside notes with EF 55-60% -strict I/o, daily weights (down ~3 kg since admit) Assessment & Plan (06/01/2022 8:16 AM CDT): 2/2 dietary indiscretion vs COVID or bacterial pneumonia. -Diuresed with IV lasix, now euvolemic->back on home 60mg po Lasix 7/6 -stable pulm status on home oxygen need (2L at rest, 4L with activity) -continue home metop (dose decreased for bradycardia) -last TTE 12/2021 per outside notes with EF 55-60% -strict I/o, daily weights (down ~3 kg since admit) Assessment & Plan (05/31/2022 5:08 PM CDT): 2/2 dietary indiscretion vs COVID or bacterial pneumonia. -Diuresed with IV lasix, now euvolemic->back on home 60mg po Lasix 7/6 -stable pulm status on home oxygen need -continue home metop (dose decreased for bradycardia) -last TTE 12/2021 per outside notes with EF 55-60% -strict I/o, daily weights Assessment & Plan (05/30/2022 2:02 PM CDT): 2/2 dietary indiscretion vs COVID or bacterial pneumonia. No standing weights recorded, still with some LE edema but on stable O2 - 40mg IV lasix yesterday, now well diuresed->can transition back to home 60mg po Lasix -continue home metop (dose decreased for bradycardia) -last TTE 12/2021 per outside notes with EF 55-60% -strict I/o, daily weights Assessment & Plan (05/29/2022 4:23 PM CDT): 2/2 dietary indiscretion vs COVID or bacterial pneumonia. No standing weights recorded, still with some LE edema but on stable O2 - 40mg IV lasix today and reassess need for additional IV lasix tomorrow-can probably transition back to home 60mg po Lasix -continue home metop -last TTE 12/2021 per outside notes with EF 55-60% -strict I/o, daily weights Assessment & Plan (05/28/2022 1:18 PM CDT): 2/2 dietary indiscretion vs COVID or bacterial pneumonia. No standing weights recorded, still with some LE edema but on stable O2 - 60 IV lasix today and reassess need for additional IV lasix tomorrow -continue home metop -strict I/o, daily weights COVID-19 05/27/2022 07/03/2022 Assessment & Plan (06/10/2022 11:18 AM CDT): Patient presented with lethargy, leg swelling, and cough. Tested + on 05/22/22 at [facility] and repeatedly positive at [facility] on 05/27/2022. s/p remdesivir x2 days for high risk->stopped for bradycardia/pauses w/HR 30-40. Needs full 20 days isolation before quarantine can be lifted ~06/12 per IP. Respiratory status stable, on home oxygen 2 L at rest, 4 L with exertion. Continue to monitor. Assessment & Plan (06/05/2022 1:43 PM CDT): Symptomatic with lethargy, leg swelling, and cough. Tested + on 05/22/22 at [facility] (external result entered and pic of result in media tab). S/p remdesivir x2 days for high risk->stopped for bradycardia/pauses w/HR 30-40, though these have persisted days later - Per IP, pt needs 20 full days COVID isolation before quarantine can be lifted (immunosuppressed on abatacept). Isolation can be lifted 06/12 -stable for discharge if SNF has COVID bed, or improves w/PT enough to safely go home, otherwise to remain inpatient until isolation lifted. Assessment & Plan (06/04/2022 1:14 PM CDT): Symptomatic with lethargy, leg swelling, and cough. -Tested + on 05/22/22 at [facility] (external result entered and pic of result in media tab) -s/p remdesivir x2 days for high risk->stopped for bradycardia/pauses w/HR 30- 40, though these have persisted days later - Discussed with IP on 06/02-pt needs 20 full days COVID isolation before quarantine can be lifted (immunosuppressed on abatacept). Isolation can be lifted 06/12 -stable for discharge if SNF has COVID bed, or improves w/PT enough to safely go home, otherwise to remain inpatient until isolation lifted. Assessment & Plan (06/03/2022 8:32 AM CDT): Symptomatic with lethargy, leg swelling, and cough. -Tested + on 05/22/22 at [facility] (external result entered and pic of result in media tab) -s/p remdesivir x2 days for high risk->stopped for bradycardia/pauses w/HR 30-40 - Discussed with IP on 06/02-pt needs 20 full days COVID isolation before quarantine can be lifted (immunosuppressed on abatacept). Isolation can be lifted 06/12 -stable for discharge if SNF has COVID bed, or improves w/PT enough to safely go home, otherwise to remain inpatient until isolation lifted. Assessment & Plan (06/02/2022 12:08 PM CDT): Symptomatic with lethargy, leg swelling, and cough. -Tested + on 05/22/22 at [facility] (external result entered and pic of result in media tab) -s/p remdesivir x2 days for high risk->stopped for bradycardia/pauses w/HR 30-40 yesterday - Discussed with IP today-pt need 20 full days COVID isolation before quarantine can be lifted (immunosuppressed on abatacept) ~isolation to be lifted 06/12 -stable for discharge if SNF has COVID bed, otherwise to remain inpatient until isolation lifted. Assessment & Plan (06/01/2022 8:19 AM CDT): Symptomatic with lethargy, leg swelling, and cough. -Tested + on 05/22/22 at [facility] (external result entered and pic of result in media tab) -s/p remdesivir x2 days for high risk->stopped for bradycardia/pauses w/HR 30-40 yesterday -may be able to lift COVID isolation ~06/02, IP aware Assessment & Plan (05/31/2022 5:09 PM CDT): Symptomatic with lethargy, leg swelling, and cough. -Tested + on 05/22/22 at [facility] (external result entered and pic of result in media tab) -s/p remdesivir x2 days for high risk->stopped for bradycardia/pauses w/HR 30-40 yesterday Assessment & Plan (05/30/2022 8:31 AM CDT): Symptomatic with lethargy, leg swelling, and cough. -s/p remdesivir x2 days for high risk->stopped for bradycardia/pauses w/HR 30-40 yesterday Assessment & Plan (05/29/2022 4:26 PM CDT): Symptomatic with lethargy, leg swelling, and cough. -s/p remdesivir x2 days for high risk->stopped for bradycardia/pauses w/HR 30-40 Assessment & Plan (05/28/2022 1:12 PM CDT): Symptomatic with lethargy, leg swelling, and cough. -remdesivir x3 days for high risk. Pneumonia due to infectious organism 05/27/2022 06/11/2022 Assessment & Plan (06/10/2022 11:19 AM CDT): Completed tx with cefdinir for PNA and UTI at OSH starting 05/22 and completed 7 total days of antibiotics (Azith, CTX) on 05/29/22. ?? 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 Completed 7 total days of antibiotics (Azith, CTX) on 05/29. -pulm status at baseline. 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 Completed 7 total days of antibiotics (Azith, CTX) on 05/29. -pulm status at baseline. 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 Completed 7 total days of antibiotics (Azith, CTX) on 05/29. -pulm status at baseline. Assessment & Plan (06/01/2022 8:18 AM CDT): Reports two weeks of productive green sputum after eating that is new. 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 Completed 7 total days of antibiotics (Azith, CTX) on 05/29. -pulm status at baseline Assessment & Plan (05/31/2022 5:08 PM CDT): Reports two weeks of productive green sputum after eating that is new. Appears to have been started on cefdinir for PNA and UTI at OSH starting 05/22. Completed 7 total days of antibiotics (Azith, CTX) on 05/29. Assessment & Plan (05/30/2022 8:31 AM CDT): Reports two weeks of productive green sputum after eating that is new. Appears to have been started on cefdinir for PNA and UTI at OSH starting 05/22. Completed 7 total days of antibiotics (Azith, CTX) 05/29. Assessment & Plan (05/29/2022 4:24 PM CDT): Reports two weeks of productive green sputum after eating that is new. Appears to have been started on cefdinir for PNA and UTI at OSH starting 05/22. Will complete 7 total days of antibiotics (Azith, CTX) today. Assessment & Plan (05/28/2022 1:12 PM CDT): Reports two weeks of productive green sputum after eating that is new. Appears to have been started on cefdinir for PNA and UTI at OSH starting 05/22. Will continue treatment for 7 total days of antibiotics Rib fracture 05/27/2022 07/03/2022 Assessment & Plan (06/18/2022 9:41 PM CDT): Pain remains controlled. Continue PT/OT Assessment & Plan (06/11/2022 3:08 PM CDT): Pain controlled. Continue PT/OT. Assessment & Plan (06/10/2022 11:16 AM CDT): Pain well controlled. Continue Tylenol 650 Q 6 p.r.n., tramadol p.r.n.. Lidocaine patch. Incentive spirometer. PT/OT eval Assessment & Plan (06/04/2022 1:15 PM CDT): Tramadol prn. miralax daily prn. 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 -mobilize as able-pt needs LOTs of encouragement to participate, likes to stay in bed - PT/OT radha completed 05/31-rec SNF, multiple referrals pending Assessment & Plan (06/03/2022 8:34 AM CDT): Tramadol prn. miralax daily prn. 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 -mobilize as able-pt needs LOTs of encouragement to participate, likes to stay in bed - PT/OT radha completed 05/31-rec SNF, multiple referrals pending Assessment & Plan (06/02/2022 8:46 AM CDT): Tramadol prn. miralax daily prn. 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 -mobilize as able-rehab/SNF at discharge->Needs new referrals as patient & daughter do not want her going back to prior facility. PT/OT radha completed 05/31-rec SNF, multiple referrals pending Assessment & Plan (06/01/2022 8:26 AM CDT): Tramadol prn. miralax daily prn. 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 -mobilize as able-rehab/SNF at discharge->Needs new referrals as patient & daughter do not want her going back to prior facility. PT/OT radha completed 05/31-rec SNF Assessment & Plan (05/31/2022 5:12 PM CDT): Tramadol prn. miralax daily prn. Incentive spirometer. -mobilize as able-rehab/SNF at discharge->will need new referrals as patient & daughter do not want her going back to prior facility. PT/OT radha completed today-rec SNF Assessment & Plan (05/30/2022 8:32 AM CDT): Tramadol prn. miralax daily prn. Incentive spirometer. -mobilize as able-rehab/SNF at discharge->will need new referrals as patient & daughter do not want her going back to prior facility. PT/OT radha pending Assessment & Plan (05/29/2022 4:28 PM CDT): Tramadol prn. miralax daily prn. Incentive spirometer. -mobilize as able-rehab/SNF at discharge->will need new referrals as patient & daughter do not want her going back to prior facility Assessment & Plan (05/28/2022 1:11 PM CDT): Tramadol prn. miralax daily prn. Incentive spirometer. Chronic heart failure with p reserved ejection fraction ([facility]) 05/05/2020 10/01/2023 Assessment & Plan (07/03/2022 11:37 AM CDT): Remains compensated. Assessment & Plan (06/28/2022 10:56 AM CDT): Compensated. Continue Lasix 60mg daily. Monitor. Assessment & Plan (06/25/2022 12:56 PM CDT): TTE 01/16: EF 55-60%. Currently compensating well. Was on home Lasix 60 mg, discontinued inpatient due to MIKE. Recommended to resume on 06/10. Monitor creatinine, weights and lytes. Follow-up cardiology. Saw 06/22 - Toprol XL increased to 50mg. Remains well controlled. Morbid obesity with BMI of 4 5.0-49.9, adult ([facility]) 05/05/2020 10/13/2024 Assessment & Plan (06/07/2022 12:06 PM CDT): PT/OT consulted. Assessment & Plan (05/27/2022 8:21 PM CDT): PT/OT consulted. Immunizations Name Administration Dates Next Due Influenza, Quad, Adjuvantated, Intramuscular Influenza, Trivalent, Adjuvanted, Intramuscular 10/16/2019 Influenza, Unspecified 09/08/2021 Pneumococcal Conjugate PCV 13 12/05/2017 Pneumococcal Polysaccharide PPV23 10/16/2019 Sars-CoV-2, Unspecified 03/10/2021 Social History Tobacco Use Types Packs/Day Years Used Date Smoking Tobacco: Never Smokeless Tobacco: Never Tobacco Cessation:Counseling Given: Not Answered Alcohol Use Standard Drinks/Week Comments Not Currently 0 (1 standard drink = 0.6 oz pur e alcohol) Comments Unknown Sex and Gender Information Value Date Recorded Sex Assigned at Not on file Legal Sex Female 1:14 AM NEONATAL NURSE PRACTITIONER Gender Identity Female 05/04/2020 3:33 PM CDT Sexual Orientation Not on file 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 Not on file Not on file Not on file Last Filed Vital Signs Vital Sign Reading Time Taken Comments Blood Pressure 121/65 10/08/2024 12:18 PM NEONATAL NURSE PRACTITIONER Pulse 50 10/08/2024 12:18 PM NEONATAL NURSE PRACTITIONER Temperature 36.6 ??C (97.9 ??F) 10/08/2024 12:[address] Respiratory Rate 18 10/08/2024 12:18 PM NEONATAL NURSE PRACTITIONER Oxygen Saturation 98% 10/08/2024 12:18 PM NEONATAL NURSE PRACTITIONER 4 liters o2 Inhaled Oxygen Concentration - - Weight 109.8 kg (242 lb) 10/08/2024 12:18 PM NEONATAL NURSE PRACTITIONER Height 157.5 cm (5' 2 ) 10/08/2024 12:18 PM NEONATAL NURSE PRACTITIONER Body Mass Index 44.26 10/08/2024 12:18 PM NEONATAL NURSE PRACTITIONER Plan of Treatment Not on file Procedures Procedure Name Priority Date/Time Associated Diagnosis Comments PULMONARY FUNCTION TEST (PFT) Routine 10/08/2024 11:48 AM NEONATAL NURSE PRACTITIONER ILD (interstitial lung disease) ([facility]) (HCC) HEPATITIS PANEL, ACUTE Routine 03/09/2022 9:20 AM CDT 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 [facility] Division of Pulmonary & Critical Care Medicine [address] [place] [address]; [place] [address]; [place], [place] ??[address]; [phone] Pulmonary Function Laboratory Pulmonary Stress Test Simple/Oxygen [...] with the written final report. PFT performed at:->[facility] Adult PFT Lab- [id number] Procedure:->Spirometry Procedure:->Oxygen Assessment [...] and %HbO2 is age dependent. However, the [facility] Pulmonary Function Laboratory defines hypoxemia as a PaO2 <56 mm Hg or a %HbO2 <89%. Denita Correa MD PFT ORDERABLES Final Result * Hepatitis panel, acute (03/09/2022 9:20 AM CDT) Hep A IgM Nonreactive Nonreactive [facility] Comment: Interpretive Data: If Hep A IgM Ab is reported as Equivocal, a new sample should be drawn in two weeks for testing. Current interpretive data was last revised on 20. Hep B core IgM Nonreactive Nonreactive [facility] Comment: Interpretive Data If HepB Core IgM Ab is reported as Equivocal, a new sample should be drawn in two weeks for testing. Current interpretive data was last revised on 20. Hep C Ab Nonreactive Nonreactive [facility] Comment:Antibodies to HCV no t detected. Does NOT exclude the possibility of recent exposure to HCV. HepBsAg Nonreactive Nonreactive [facility] Blood 03/09/2022 9:20 AM CDT 03/09/2022 10:20 AM CDT Sandra Bauman MD LAB MICROBIOLOGY - GENERAL ORDER KHOA Final Result [facility] Department [place] [address] from Last 3 Months or Most Recently Relevant to Health Maintenance Insurance [facility] MEDICARE MEDICARE [facility] MEDICARE SUPPLEMENT [facility] MEDICARE Advance Directives For more information, please contact: [phone] Documents on File Type Date Recorded Patient [place] Agricultural 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
--- OUTSIDE RECORDS SUMMARY | 2024-11-15 05:53 | XMS_ITS | Encounter Summary ---
Author Organization [facility] Address [address] [place] [address] Phone Care Team Providers Care Platform Power Technician Name Role Phone Ni Armas RN Unavailable Lizette Timothy Land MD Primary Care Provider [phone] Encounter Details Date Type Department Care Team (Late st Contact Info) Description 09/18/2024 Telephone [facility] 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 Will you just let her know that we found a couple pts to switch so they can keep their appt as is on 10/08. Thank you Ni documented in this encounter Plan of Treatment Not on file documented as of this encounter Visit Diagnoses Not on filedocumented in this encounter Care Teams Platform Power Technician Relationship Specialty Start Date End Date Timothy Donis MD PCP - General Family Practice 04/12/23 Ni Armas, RN Registered Nurse Pulmonary Disease 01/11/23 documented as of this encounter
--- OUTSIDE RECORDS SUMMARY | 2024-11-15 05:53 | XMS_ITS | Clinical Summary ---
Author Organization [facility] [address] Address [address] [place] [address] Care Team Providers Care Mix Maker Name Role Phone Ni Armas RN Unavailable Lizette Timothy Land MD Primary Care Provider +1 [phone] Allergies No known active allergies Medications pravastatin [...] EVERY DAY AT BEDTIME NEEDED FOR INSOMNIA Active MAGNESIUM ORAL Take 250 mg by mouth daily Active Active Problems Problem Noted Date Diagnosed Date Body mass index 40.0-44.9, adult ([facility]) 01/17 Pulmonary hypertension 12/12/2023 Osteoarthritis 12/12/2023 Dilated cardiomyopathy ([facility]) 04/12/2023 HFrEF (heart failure with re duced ejection fraction) ([facility]) 04/12/2023 Primary hypertension 06/28/2022 Assessment & Plan (07/03/2022 11:37 AM CDT): BP flucutates, pulse improved. Continues on Toprol 50mg & Lisinopril 5mg. Will increase Lisinopril to 10mg & pt needs to f/u with Water Conservationist outpt. Assessment & Plan (06/28/2022 10:57 AM [...] an appointment with Pulmonary on 06/15 at [facility] for PFTs, may need to reschedule Assessment [...] prednisone 15 mg daily. Follows up with combination window installer, Dr. Bauman outpatient. ?? Assessment & Plan [...] abatacept. Continue plaquinel Longstanding persistent atrial fibrillation ([facility]) 02/09/2020 Assessment & Plan (06/25/2022 12:56 PM [...] on eliquis. Follow-up cardiology, Dr. Reyes/ Yolanda Soto NP on 06/22/22 10 am. Assessment & Plan [...] - will need to f/u w/ her insurance sales assistant for further management upon DC Assessment & [...] Chronic anticoagulation 02/09/2020 ILD (interstitial lung disease) ([facility]) Assessment & Plan (06/10/2022 11:25 AM CDT): At baseline on supplemental oxygen 2 L at rest, 4 L with exertion, prednisone 15 mg, abatacept on hold. Follows up with Pulmonary, Dr. Norman and combination window installer Dr. Bauman. PFT scheduled at [facility] 06/15 Assessment & Plan (06/07/2022 12:06 PM [...] chronic diastolic C HF (congestive heart failure) ([facility]) 06/10/2022 06/25/2022 Assessment & Plan (06/21/2022 10:31 [...] sensitivity results Acute on chronic heart failure ([facility]) 05/27/2022 06/07/2022 Assessment & Plan (06/07/2022 12:04 [...] now euvolemic->back on home 60mg po Lasix 05/30 -stable pulm status on home oxygen [...] now euvolemic->back on home 60mg po Lasix 05/30 -stable pulm status on home oxygen [...] and cough. Tested + on 05/22/22 at [facility] and repeatedly positive at [facility] on 05/27/2022. s/p remdesivir x2 days for high risk->stopped for bradycardia/pauses w/HR 30-40. Needs full 20 days isolation before quarantine can be lifted ~06/12 per IP. Respiratory status stable, on home oxygen 2 L at rest, 4 L with exertion. Continue to monitor. Assessment & Plan (06/05/2022 1:43 PM CDT): Symptomatic with lethargy, leg swelling, and cough. Tested + on 05/22/22 at [facility] (external result entered and pic of result [...] and cough. -Tested + on 05/22/22 at [facility] (external result entered and pic of result [...] and cough. -Tested + on 05/22/22 at [facility] (external result entered and pic of result [...] and cough. -Tested + on 05/22/22 at [facility] (external result entered and pic of result [...] and cough. -Tested + on 05/22/22 at [facility] (external result entered and pic of result in media tab) -s/p remdesivir x2 days for high risk->stopped for bradycardia/pauses w/HR 30-40 yesterday -may be able to lift COVID isolation ~06/02, IP aware Assessment & Plan (05/31/2022 5:09 PM CDT): Symptomatic with lethargy, leg swelling, and cough. -Tested + on 05/22/22 at [facility] (external result entered and pic of result [...] Reported two weeks of productive green sputum SHIPPING AND RECEIVING ASSOCIATE. 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 Completed 7 total days of antibiotics (Azith, CTX) on 05/29. -pulm status at baseline. Assessment & Plan (06/03/2022 8:30 AM CDT): Reported two weeks of productive green sputum SHIPPING AND RECEIVING ASSOCIATE. 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 Completed 7 total days of antibiotics (Azith, CTX) on 05/29. -pulm status at baseline. Assessment & Plan (06/02/2022 12:05 PM CDT): Reports two weeks of productive green sputum SHIPPING AND RECEIVING ASSOCIATE. Started on cefdinir for PNA and UTI [...] likes to stay in bed - PT/OT evals completed 05/31-rec SNF, multiple referrals pending Assessment [...] heart failure with p reserved ejection fraction ([facility]) 05/05/2020 10/01/2023 Assessment & Plan (07/03/2022 11:37 [...] obesity with BMI of 4 5.0-49.9, adult ([facility]) 05/05/2020 10/13/2024 Assessment & Plan (06/07/2022 12:06 PM CDT): PT/OT consulted. Assessment & Plan (05/27/2022 8:21 PM CDT): PT/OT consulted. Encounters Date Type Department Care Team Description 10/08/2024 12:30 PM WHEAT COMBINE DRIVER Office Visit [facility] Pulmonary [facility] Medicine 8th [address] [place] [id number] Denita Correa MD ILD (interstitial lung disease) ([facility]) ([facility]) (Primary Dx); Rheumatoid arthritis, involving unspecified site, unspecified whether rheumatoid factor present (HCC); Recurrent major depressive disorder, in partial remission ([facility]); Body mass index 40.0-44.9, adult ([facility]) (HCC); Stage 3a chronic kidney disease (HCC) 10/08/2024 11:20 AM WHEAT COMBINE DRIVER - 10/08/2024 11:59 PM WHEAT COMBINE DRIVER Hospital Encounter [facility] Pulmonary [address] [facility] [address] [place] [address] ILD (interstitial lung disease) (CMS/HCC) ([facility]) Discharge Disposition: Discharge to home or self care 09/18/[address] [facility] Pulmonary [address] [facility] [address] [place] [address] [place] [address] Ni Armas RN from Last 3 Months Immunizations Name Administration Dates Next Due Influenza, Quad, Adjuvantated, Intramuscular Influenza, Trivalent, Adjuvanted, Intramuscular 10/16/2019 Influenza, Unspecified 09/08/2021 Pneumococcal Conjugate PCV 13 12/05/2017 Pneumococcal Polysaccharide PPV23 10/16/2019 Sars-CoV-2, Unspecified 03/10/2021 Surgical History Surgery Date Site/Laterality Comments SECTION THYROIDECTOMY CHOLECYSTECTOMY JOINT REPLACEMENT Knee replacement bot h (L) & (R) CATARACT EXTRACTION 2021 both eyes FLUORO GUIDED ASPIRATION OR INJECTION LARGE JOINT BILATERAL 01/03/2024 Bilateral FL UPPER GI AIR CONTRAST W KUB 08/07/2024 Left Medical History Medical History Date Comments Hypertension Thyroid disease Obesity Wears dentures Diverticulitis H/O section Sleep apnea Cataracts, bilateral Atrial fibrillation (CMS/HCC) ([facility]) CHF (congestive heart failure) ([facility]) ([facility]) Diastolic dysfunction Heart disease Depression 12/2021 Chronic kidney disease 2021 Kidney stone 2021 Anemia Family History Medical History Relation Name Comments Blood Clot Father Lawrence Clotting disorder Father Lawrence Rheum arthritis Father Lawrence Hypertension Mother Renetta No Known Problems Sister 1 No Known Problems Sister 2 Relation Name Status Comments Father Lawrence (Age 58) Mother Renetta (Age 91) Sister 1 Alive Sister 2 Alive Social History Tobacco Use Types Packs/Day Years Used Date Smoking Tobacco: Never Smokeless Tobacco: Never Tobacco Cessation:Counseling Given: Not Answered Alcohol Use Standard Drinks/Week Comments Not Currently 0 (1 standard drink = 0.6 oz pur e alcohol) Comments Unknown Sex and Gender Information Value Date Recorded Sex Assigned at Not on file Legal Sex Female 1:14 AM WHEAT COMBINE DRIVER Gender Identity Female 05/04/2020 3:33 PM CDT Sexual Orientation Not on file 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 Not on file Not on file Obstetrics History Para Term AB IAB SAB Ectopic Multiple Livin g Live Births 5 5 Date Outcome GA Total Labor Labor/2nd/3rd Weight Sex Type Anes PTL Linn A1 A5 Name Clin Para Para Para Para Para Last Filed Vital Signs Vital Sign Reading Time Taken Comments Blood Pressure 121/65 10/08/2024 12:18 PM WHEAT COMBINE DRIVER Pulse 50 10/08/2024 12:18 PM WHEAT COMBINE DRIVER Temperature 36.6 ??C (97.9 ??F) 10/08/2024 12:[address] Respiratory Rate 18 10/08/2024 12:18 PM WHEAT COMBINE DRIVER Oxygen Saturation 98% 10/08/2024 12:18 PM WHEAT COMBINE DRIVER 4 liters o2 Inhaled Oxygen Concentration - - Weight 109.8 kg (242 lb) 10/08/2024 12:18 PM WHEAT COMBINE DRIVER Height 157.5 cm (5' 2 ) 10/08/2024 12:18 PM WHEAT COMBINE DRIVER Body Mass Index 44.26 10/08/2024 12:18 PM WHEAT COMBINE DRIVER Plan of Treatment Health Maintenance Due Date Last Done Comments Depression Screening 1950 Osteoporosis Screening-Bone Density Scan 1950 DTaP/Tdap/Td Vaccine (1 - Tdap) 1959 Hepatitis B Screening 1966 Zoster Vaccine (1 of 2) 1967 Well Visit 65+ 2013 Fall Risk Assessment 06/07/2023 06/07/2022 Influenza Vaccine (#1) 2024 , 09/16/2020, 10/16/2019 Pneumococcal vaccine 65+ Completed 10/16/2019, 11/25 Hepatitis C Screening Completed 03/09/2022 Procedures Procedure Name Priority Date/Time Associated Diagnosis Comments PULMONARY FUNCTION TEST (PFT) Routine 10/08/2024 11:48 AM WHEAT COMBINE DRIVER ILD (interstitial lung disease) (CMS/HCC) (HCC) HEPATITIS PANEL, ACUTE Routine 03/09/2022 9:20 AM CDT 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) from Last 3 Months or Most Recently Relevant to Health Maintenance Results * Pulmonary Function Test - (10/08/2024 11:48 AM WHEAT COMBINE DRIVER) FVC PRE 0.90 L [facility] FVC %PRE PRED 36 % [facility] FEV1 PRE 0.76 L [facility] FEV1 %PRE PRED 40 % [facility] FEV1/FVC PRE 84.5 % [facility] Anatomical Region Laterality Modality PFT 10/08/2024 11:2 5 AM WHEAT COMBINE DRIVER Narrative 10/08/2024 7:31 PM WHEAT COMBINE DRIVER Table formatting from the original result was not included. [facility] Division of Pulmonary & Critical Care Medicine [address] [place] [address]; [place] [facility]; [place], [place] ??[address]; [phone] Pulmonary Function Laboratory Pulmonary Stress Test Simple/Oxygen [...] with the written final report. PFT performed at:->[facility] Adult PFT Lab- [facility] Procedure:->Spirometry Procedure:->Oxygen [...] and %HbO2 is age dependent. However, the [facility] Pulmonary Function Laboratory defines hypoxemia as a PaO2 <56 mm Hg or a %HbO2 <89%. us Denita Correa MD PFT ORDERABLES Final Result * Hepatitis panel, acute (03/09/2022 9:20 AM CDT) Hep A IgM Nonreactive Nonreactive [facility] Comment: Interpretive Data: If Hep A IgM Ab is reported as Equivocal, a new sample should be drawn in two weeks for testing. Current interpretive data was last revised on 20. Hep B core IgM Nonreactive Nonreactive [facility] Comment: Interpretive Data If HepB Core IgM Ab is reported as Equivocal, a new sample should be drawn in two weeks for testing. Current interpretive data was last revised on 20. Hep C Ab Nonreactive Nonreactive [facility] Comment:Antibodies to HCV no t detected. Does NOT exclude the possibility of recent exposure to HCV. HepBsAg Nonreactive Nonreactive [facility] Blood 03/09/2022 9:20 AM CDT 03/09/2022 10:20 AM CDT Sandra Bauman MD LAB MICROBIOLOGY - GENERAL ORDER KHOA Final Result [facility] Department [place] [address] from Last 3 Months or Most Recently Relevant to Health Maintenance Insurance [facility] MEDICARE MEDICARE BLUE CROSS MEDICARE SUPPLEMENT [facility] MEDICARE Advance Directives For more information, please contact: [phone] Documents on File Type Date Recorded Patient Trade Show Manager Expl anation ADVANCE DIRECTIVE 11/03/2021 10:[address] [facility] of Medicaid Collection Specialist-Medical * Full Code (Latest Code Status on File) Date Activated Date Inactivated Comments 05/27/2022 7:14 PM 06/07/2022 10:45 PM Care Teams Mix Maker Relationship Specialty Start Date End Date Timothy Donis MD PCP - General Family Practice 04/12/23 Ni Armas, RN Registered Nurse Pulmonary Disease 01/11/23
--- OUTSIDE RECORDS SUMMARY | 2024-11-15 05:54 | XMS_ITS | Encounter Summary ---
Author Organization [facility] Address [address] [place] [address] Care Team Providers Care Associate Professor Of Automation Name Role Phone Ni Armas RN Unavailable Lizette Timothy Land MD Primary Care Provider [phone] [phone] Encounter Details Date Type Department Care Team (Latest Contact Info) Description 04/26/2023 12:39 PM CDT - 04/26/2023 11:59 PM CDT Hospital Encounter [facility] [address] [place] [id number] Discharge Disposition: Discharge to home or self care Social History Tobacco Use Types Packs/Day Years Used Date Smoking Tobacco: Never Smokeless Tobacco: Never Alcohol Use Standard Drinks/Week Comments Not Currently 0 (1 standard drink = 0.6 oz pur e alcohol) Comments Unknown Sex and Gender Information Value Date Recorded Sex Assigned at Not on file Legal Sex Female 1:14 AM HAT AND CAP SEWER Gender Identity Female 05/04/2020 3:33 PM CDT Sexual Orientation Not on file 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 Not on file Not on file documented as of this encounter Medications at Time of Discharge acetaminophen 325 mg capsule Take by mouth alendronate (FOSAMAX) 70 mg tablet 01/10/2023 calcium carbonate-vit D3-min 600 mg calcium- 400 unit tablet Take by mouth 2 (two) times a day cholecalciferol (VITAMIN D-3) 2000 unit tablet Take 0.5 tablets (1,000 Units total) by mouth daily cyanocobalamin (Vitamin B-12) 1,000 mcg tabletIndications :Prevention of Vitamin B12 Deficiency Take 1 tablet (1,000 mcg total) by mouth daily DULoxetine DR (CYMBALTA) 20 mg capsule Take 1 capsule (20 mg total) by mouth daily 10/24/2021 Eliquis 5 mg tablet Take 1 tablet (5 mg total) by mouth 2 (two) times a day 04/11/2021 levothyroxine (SYNTHROID) 112 mcg tablet Take 1 tablet (112 mcg total) by mouth daily 11/11/2019 potassium chloride ER (KLOR-CON) 20 mEq CR tablet 1 tablet (20 mEq total) 2 (two) times a day 08/20/2022 pravastatin (PRAVACHOL) 80 mg tablet Take 1 tablet (80 mg total) by mouth daily 01/22/2020 traMADoL (ULTRAM) 50 mg tablet Take 1 tablet (50 mg total) by mouth every 8 (eight) hours as needed for pain 21 tablet 07/03/2022 abatacept (Orencia ClickJect) 125 mg/mL auto-injector 06/22/2022 3 cholestyramine (QUESTRAN) 4 gram packet 06/09/2020 3 dilTIAZem CD (CARDIZEM CD) 300 mg 24 hr capsule Take 1 capsule (300 mg total) by mouth daily 3 furosemide (LASIX) 20 mg tablet Take 3 tablets (60 mg total) by mouth daily 270 tablet 3 10/29/2022 3 furosemide (LASIX) 40 mg tablet Take 1 tablet (40 mg total) by mouth 2 (two) times a day 3 hydroxychloroquin e (PLAQUENIL) 200 mg tablet Take 1 tablet (200 mg total) by mouth 2 (two) times a day 11/26/2019 4 levalbuterol (XOPENEX) 1.25 mg/3 mL nebulizer solution Take 3 mL (1.25 mg total) by nebulization every 6 (six) hours as needed for wheezing 3 metoprolol XL (TOPROL-XL) 25 mg extended release tabletIndications :Longstanding persistent atrial fibrillation (CMS/HCC) (HCC) Take 2 tablets (50 mg total) by mouth daily 60 tablet 11 07/04/2022 3 ondansetron (ZOFRAN) 4 mg tablet Take 1 tablet (4 mg total) by mouth every 8 (eight) hours as needed for nausea or vomiting [address] (PROTONIX) 40 mg EC tablet Take 1 tablet (40 mg total) by mouth daily 3 predniSONE (DELTASONE) 2.5 mg tablet Take 1 tablet (2.5 mg) by mouth daily 30 tablet 2 12/03/2022 3 sacubitriL-valsar lara (ENTRESTO) 24-26 mg tabletIndications :chronic heart failure Take 1 tablet by mouth 2 (two) times a day 60 tablet 11 04/12/2023 4 documented as of this encounter Discharge Disposition Disposition Code Departure Means Destination Discharge to home or self care documented in this encounter Plan of Treatment Not on file documented as of this encounter Procedures Procedure Name Priority Date/Time Associated Diagnosis Comments NEURO CT MR OUTSIDE REFERENCE Routine 04/26/2023 12:39 PM CDT Diagnosis unknown documented in this encounter Results * Neuro CT MR Outside Reference (04/26/2023 12:39 PM CDT) Impressions [facility] - 04/26/2023 12:39 PM CDT These images are for Reference purposes only and have not been reviewed by [facility] Radiology. ??There will be no report generated by a [facility] Radiologist. Narrative [facility] - 04/26/2023 12:39 PM CDT EXAMINATION: ??Images For Reference Purposes Only Sandra Bauman MD IMG CT PROCEDURES Final Result [facility] documented in this encounter Visit Diagnoses Not on filedocumented in this encounter Care Teams Associate Professor Of Automation Relationship Specialty Start Date End Date Timothy Donis MD PCP - General Family Practice 04/12/23 Ni Armas, RN Registered Nurse Pulmonary Disease 01/11/23 documented as of this encounter
--- OUTSIDE RECORDS SUMMARY | 2024-11-15 05:54 | XMS_ITS | Encounter Summary ---
Author Organization [facility] Address [address] [place] [address] Care Team Providers Care Bingo Worker Name Role Phone Ni Armas RN Unavailable Lizette Timothy Land MD Primary Care Provider [phone] [phone] Encounter Details Date Type Department Care Team (Late st Contact Info) Description 08/14/2023 Telephone [facility] Cardiology [address] [place] [address] Myles Reyes MD [address] [facility] [address] [place] [address] Social History Tobacco Use Types Packs/Day Years Used Date Smoking Tobacco: Never Smokeless Tobacco: Never Alcohol Use Standard Drinks/Week Comments Not Currently 0 (1 standard drink = 0.6 oz pur e alcohol) Comments Unknown Sex and Gender Information Value Date Recorded Sex Assigned at Not on file Legal Sex Female 1:14 AM PRIVACY ATTORNEY Gender Identity Female 05/04/2020 3:33 PM CDT Sexual Orientation Not on file 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 * Telephone Encounter - Leonie Cronin - 08/14/2023 1:02 PM CDT Sindy called from [facility]oscopy states they received the cardiac clearance back but AD forgot to mike yes or no to hold blood thinners. Contact: documented in this encounter Plan of Treatment Not on file documented as of this encounter Visit Diagnoses Not on filedocumented in this encounter Care Teams Bingo Worker Relationship Specialty Start Date End Date Timothy Donis MD PCP - General Family Practice 04/12/23 Ni Armas, RN Registered Nurse Pulmonary Disease 01/11/23 documented as of this encounter
--- OUTSIDE RECORDS SUMMARY | 2024-11-15 05:54 | XMS_ITS | Encounter Summary ---
Author Organization [facility] Address [address] [place] [address] Phone Care Team Providers Care Library Science Instructor Name Role Phone Ni Armas RN Unavailable Lizette Timothy Land MD Primary Care Provider [phone] [phone] Reason for Referral * (Routine) - Closed Specialty Diagnoses / Procedures Referred By Contac t Referred To Contact Diagnoses ILD (interstitial lung disease) (CMS/HCC) (HCC) Procedures Miscellaneous DME Denita Correa MD [address] [place] [address] Phone: tel: fax: Referral ID Status Reason Start Date Expiration Date Visits Re quested Visits Authorized [id number] Closed 04/30/2023 05/29/2024 1 1 Encounter Details Date Type Department Care Team (Late st Contact Info) Description 04/30/2023 Orders Only [facility] Pulmonary [address] [facility] Advanced Medicine 8th [place] [address] [place] [address] Denita Correa MD [address] [facility] [address] [place] [address] ILD (interstitial lung disease) (CMS/HCC) (HCC) (Primary Dx) Social History Tobacco Use Types Packs/Day Years Used Date Smoking Tobacco: Never Smokeless Tobacco: Never Alcohol Use Standard Drinks/Week Comments Not Currently 0 (1 standard drink = 0.6 oz pur e alcohol) Comments Unknown Sex and Gender Information Value Date Recorded Sex Assigned at Not on file Legal Sex Female 1:14 AM SKIN CARE INSTRUCTOR Gender Identity Female 05/04/2020 3:33 PM CDT Sexual Orientation Not on file 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 Not on file Not on file documented as of this encounter Plan of Treatment Not on file documented as of this encounter Visit Diagnoses Diagnosis ILD (interstitial lung disease) (CMS/HCC) ([facility])- Primary Postinflammatory pulmonary fibrosis documented in this encounter Orders General Supply Count Last Ordered Date First Or dered Date MISCELLANEOUS DME 1 04/30/2023 documented in this encounter Care Teams Library Science Instructor Relationship Specialty Start Date End Date Timothy Donis MD PCP - General Family Practice 04/12/23 Ni Armas RN Registered Nurse Pulmonary Disease 01/11/23 documented as of this encounter
--- OUTSIDE RECORDS SUMMARY | 2024-11-15 05:54 | XMS_ITS | Encounter Summary ---
Author Organization [facility] Healthcare Address [address] [place] [address] Care Team Providers Care Faculty Head Name Role Phone Ni Armas RN Unavailable Lizette Timothy Land MD Primary Care Provider [phone] Reason for Referral * Diagnostic Imaging (Routine) - Closed Specialty Diagnoses / Procedures Referred By Contac t Referred To Contact Diagnoses Chronic lumbar radiculopathy Procedures X-ray lumbar spine 2 or 3 views Finn Brito MD [address] [address] Phone: tel: fax: [address] [address] Referral ID Status Reason Start Date Expiration Date Visits Re quested Visits Authorized [id number] Closed 05/21/2024 06/20/2025 1 1 Reason for Visit * Diagnostic Imaging (Routine) - Closed Specialty Diagnoses / Procedures Referred By Contac t Referred To Contact Diagnoses Chronic lumbar radiculopathy Procedures X-ray lumbar spine 2 or 3 views Finn Brito MD [address] [address] Phone: tel: fax: [address] [phone] Referral ID Status Reason Start Date Expiration Date Visits Re quested Visits Authorized [id number] Closed 05/21/2024 06/20/2025 1 1 Encounter Details Date Type Department Care Team (Latest Contact Info) Description 05/21/2024 9:11 AM CDT - 05/21/2024 11:59 PM CDT Hospital Encounter [id number] Radiology [address] [facility] [address] [place] [address] Chronic lumbar radiculopathy Discharge Disposition: Discharge to home or self care Social History Tobacco Use Types Packs/Day Years Used Date Smoking Tobacco: Never Smokeless Tobacco: Never Alcohol Use Standard Drinks/Week Comments Not Currently 0 (1 standard drink = 0.6 oz pur e alcohol) Comments Unknown Sex and Gender Information Value Date Recorded Sex Assigned at Not on file 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 Gender Identity Female 05/04/2020 3:33 PM CDT Sexual Orientation Not on file 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 on file Not on file Not [...] (80 mg total) by mouth daily 01/22/2020 sacubitriL-valsa rtan (ENTRESTO) 24-26 mg tabletIndication s:chronic heart failure Take 1 tablet by mouth 2 (two) times a day 180 tablet 3 01/17/2024 traMADoL (ULTRAM) 50 mg tablet Take 1 tablet (50 mg total) by mouth every 8 (eight) hours as needed for pain 21 tablet 07/03/2022 predniSONE (DELTASONE) 2.5 mg tablet Take 1 tablet (2.5 mg) by mouth daily 90 tablet 1 01/01/2024 4 documented as of this encounter Discharge Disposition Disposition Code Departure Means Destination Discharge to home or self care documented in this encounter Miscellaneous Notes * Result Encounter Note - Finn Brito MD - 05/21/2024 5:50 PM CDT X-rays today demonstrate severe lower lumbar arthritic changes, particularly at L5-S1, consistent with symptoms. I recommend we follow through with our plan for MRI. documented in this encounter Plan of Treatment Not on file documented as of this encounter Procedures Procedure Name Priority Date/Time Associated Diagnosis Comments XR SPINE LUMBAR 2 OR 3 VIEWS Schedule Routine, Read Routine (OP Routine) 05/21/2024 9:27 AM CDT Chronic lumbar radiculopathy documented in this encounter Results * X-ray lumbar spine 2 or 3 views (05/21/2024 9:27 AM CDT) Anatomical Region Laterality Modality Spine N/A Computed Radiogr aphy 05/21/2024 9:35 AM CDT Impressions 05/21/2024 10:14 AM CDT Stable moderate compression deformities of the T11 and T12 vertebral bodies. Multilevel disc height loss, most notably severe L5-S1 disc height loss Dictated by: Cuong Ghotra MD, Ph.D The radiology attending physician has personally reviewed this study, and had reviewed and/or edited this written report and agrees with it. Electronically signed by: Abdulaziz Brannon MD Narrative 05/21/2024 10:14 AM CDT EXAMINATION: XR SPINE LUMBAR 2 OR 3 VIEWS HISTORY: Chronic left S1 radiculopathy. COMPARISON: CT 01/14/2020. FINDINGS: 2 standing views of the lumbar spine were obtained. Vertebral body heights are preserved. ??No listhesis. ??Anterior wedging deformity of the T11 vertebral body, unchanged since 2022, as well as the T12 vertebral body, with focal kyphosis at T11-T12. Moderate multilevel lower lumbar facet arthropathy. ??Surgical clips projecting over the right hemiabdomen. ??There is moderate levocurvature of the lumbar spine. Severe L5-S1 disc height loss. Procedure Note Abdulaziz Brannon MD - 05/21/2024 EXAMINATION: XR SPINE LUMBAR 2 OR 3 VIEWS HISTORY: Chronic left S1 radiculopathy. COMPARISON: CT 01/14/2020. FINDINGS: 2 standing views of the lumbar spine were obtained. Vertebral body heights are preserved. No listhesis. Anterior wedging deformity of the T11 vertebral body, unchanged since 2022, as well as the T12 vertebral body, with focal kyphosis at T11-T12. Moderate multilevel lower lumbar facet arthropathy. Surgical clips projecting over the right hemiabdomen. There is moderate levocurvature of the lumbar spine. Severe L5-S1 disc height loss. IMPRESSION: Stable moderate compression deformities of the T11 and T12 vertebral bodies. Multilevel disc height loss, most notably severe L5-S1 disc height loss Dictated by: Cuong Ghotra MD, Ph.D The radiology attending physician has personally reviewed this study, and had reviewed and/or edited this written report and agrees with it. Electronically signed by: Abdulaziz Brannon MD Finn Brito MD IMG XR PROCEDURES Final Re sult documented in this encounter Visit Diagnoses Diagnosis Chronic lumbar radiculopathy documented in this encounter Care Teams Faculty Head Relationship Specialty Start Date End Date Timothy Donis MD PCP - General Family Practice 04/12/23 Ni Armas, RN Registered Nurse Pulmonary Disease 01/11/23 documented as of this encounter
--- OUTSIDE RECORDS SUMMARY | 2024-11-15 05:54 | XMS_ITS | Encounter Summary ---
Author Organization [facility] Address [address] [place] [address] Phone Care Team Providers Care [employer] Internship Name Role Phone Ni Armas RN Unavailable Lizette Timothy Land MD Primary Care Provider [phone] Encounter Details Date Type Department Care Team (Late st Contact Info) Description 06/26/2023 9:20 AM CDT Office Visit [facility] Rheumatology [address] [place] [address] Advanced Medicine 5th [place] [address] [place] [id number] Sandra Bauman MD [address] [place] [address] 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) Social History Tobacco Use Types Packs/Day Years Used Date Smoking Tobacco: Never Smokeless Tobacco: Never Tobacco Cessation:Counseling Given: Not Answered Alcohol Use Standard Drinks/Week Comments Not Currently 0 (1 standard drink = 0.6 oz pur e alcohol) Comments Unknown Sex and Gender Information Value Date Recorded Sex Assigned at Not on file 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 Gender Identity Female 05/04/2020 3:33 PM CDT Sexual Orientation Not on file 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 Not on file Not on file documented as of this encounter Last Filed Vital Signs Vital Sign Reading Time Taken Comments Blood Pressure 121/77 06/26/2023 9:12 AM CDT Pulse 65 06/26/2023 9:12 AM CDT Temperature 36.6 ??C (97.9 ??F) 06/26/2023 9:12 AM CD T Respiratory Rate - - Oxygen Saturation - - Inhaled Oxygen Concentration - - Weight 119.4 kg (263 lb 3.2 oz) 06/26/2023 9:12 AM CDT Height 157.5 cm (5' 2 ) 06/26/2023 9:12 AM CDT Body Mass Index 48.14 06/26/2023 9:12 AM CDT documented in this encounter Ordered Prescriptions Prescription Sig Dispense Quantity Refills Last Filled Start Date End Date predniSONE (DELTASONE) 5 mg tablet Take 4 tabs/day x 5 days, 3 tabs/day x 5 days, 2 tabs/day x 5 days, and then 1 tab/day x 5 days. 50 tablet 06/26/2023 07/30/2023 documented in this encounter Progress Notes * Anupam Garrido MD - 06/26/2023 9:20 AM CDT Images from the original note were not included. RHEUMATOLOGY PROGRESS NOTE DIAGNOSES: positive rheumatoid arthritis Interstitial lung disease DVT and PE Atrial fibrillation Congestive heart failure Sleep apnea Hypothyroidism Chief Complaint: follow up for seropositive RA, polyarthralgias SUBJECTIVE: Last seen 02/27/23 doing relatively well on HCQ 200 BID, abatacept injections weekly, and prednisone 2.5 mg,; reported pain in the hips deemed to be most likely related to DJD of the hip, and she was not interested in repeating hip XR at that time. Since last visit, pt has had a recurrence of severe diffuse joint pains. Two weeks ago she had a 2-3d episode of bilateral LE pain and stiffness that was so severe she couldn't get out of bed or walk. This self-resolved with time but starting 1 week ago she developed gradual-onset severe pain her bilat shoulders, elbows, fingers, and hips. She also endorses swelling of her bilateral fingers. Denies fever, chills, SOB, cough, nausea, vomiting, rash. Endorses taking all medications as prescribed,with the exception of going off Abatacept for several weeks d/t URI in late February-early March but shehas since been taking her weekly injections as scheduled. No other notable changes or stressors in patient's life. Review of Systems: All systems negative except as above. Current Outpatient Medications Medication Sig Dispense Refill abatacept (Orencia ClickJect) 125 mg/mL auto-injector acetaminophen 325 mg capsule Take by mouth alendronate (FOSAMAX) 70 mg tablet calcium carbonate-vit D3-min 600 mg calcium- 400 unit tablet Take by mouth 2 (two) times a day cholecalciferol (VITAMIN D-3) 2000 unit tablet Take 0.5 tablets (1,000 Units total) by mouth daily cholestyramine (QUESTRAN) 4 gram packet cyanocobalamin (Vitamin B-12) 1,000 mcg tablet Take 1 tablet (1,000 mcg total) by mouth daily dilTIAZem CD (CARDIZEM CD) 300 mg 24 hr capsule Take 1 capsule (300 mg total) by mouth daily [address] (CYMBALTA) 20 mg capsule Take 1 capsule (20 mg total) by mouth daily Eliquis 5 mg tablet Take 1 tablet (5 mg total) by mouth 2 (two) times a day furosemide (LASIX) 40 mg tablet Take 1 tablet (40 mg total) by mouth 2 (two) times a day hydroxychloroquine (PLAQUENIL) 200 mg tablet Take 1 tablet (200 mg total) by mouth 2 (two) times a day levothyroxine (SYNTHROID) 112 mcg tablet Take 1 tablet (112 mcg total) by mouth daily metoprolol XL (TOPROL-XL) 100 mg 24 hr tablet Take 1 tablet (100 mg total) by mouth daily To be taken with Metoprolol 50 mg tablet once daily 30 tablet 11 metoprolol XL (TOPROL-XL) 50 mg extended release tablet Take 1 tablet (50 mg total) by mouth daily To be taken with Metoprolol 100 mg tablet once daily [address] (PROTONIX) 40 mg EC tablet Take 1 tablet (40 mg total) by mouth daily 90 tablet 1 potassium chloride ER (KLOR-CON) 20 mEq CR tablet 1 tablet (20 mEq total) 2 (two) times a day pravastatin (PRAVACHOL) 80 mg tablet Take 1 tablet (80 mg total) by mouth daily predniSONE (DELTASONE) 2.5 mg tablet TAKE 1 TABLET(2.5 MG) BY MOUTH DAILY 30 tablet 2 sacubitriL-valsartan (ENTRESTO) 24-26 mg tablet Take 1 tablet by mouth 2 (two) times a day 60 tablet 11 traMADoL (ULTRAM) 50 mg tablet Take 1 tablet (50 mg total) by mouth every 8 (eight) hours as neededfor pain 21 tablet 0 predniSONE (DELTASONE) 5 mg tablet Take 4 tabs/day x 5 days, 3 tabs/day x 5 days, 2 tabs/day x 5 days, and then 1 tab/day x 5 days. 50 tablet 0 No current facility-administered medications for this visit. Objective: BP 121/77 (BP Location: Right arm, Patient Position: Sitting) Pulse 65 Temp 36.6 ??C (97.9 ??F)(Oral) Ht 157.5 cm (5' 2 ) Wt 119.4 kg (263 lb 3.2 oz) BMI 48.14 kg/m?? General: alert, cooperative, no acute distress, appears uncomfortable Skin: Rash - Nodules: - Lungs: clear to auscultation bilaterally Heart: regular rate and rhythm, S1, S2 normal Abdomen: soft without mass, non-tender, with normal bowel sounds Joint Review Right Left Shoulder Sensitive to touch, reduced abduction/flexion, pain w a+pROM Sensitive to touch, reduced abduction/flexion, pain w a+pROM Elbow Normal ROM, strength 4/5, no pain in elbow Normal ROM, strength 4/5, no pain in elbow Wrist Sensitive to touch, warmth, strength 5/5, pain elicited on exam Sensitive to touch, warmth, strength 5/5, pain elicited on exam MCP Some swelling on 2nd and 3rd phalanges normal PIP normal normal DIP normal normal Knee Reduced aROM, 1/5 strength, no pain or sensitivity Sensitive to touch, reduced aROM, 1/5 strength, pain with mobility, notable increased swelling compared to R Ankle normal Sensitive to touch Foot normal normal Normal Hip ROM: Unable to assess d/t wheelchair bound status SI Joints: normal Spine: Normal alignment, no tenderness to palpation Swollen Joints: 3 Trigger/ tender Points; Tight Muscle Groups: no WBC Date Value Ref Range Status 06/02/2022 10.2 (H) 3.8 - 9.9 K/cumm Final 06/02/2022 11.3 (H) 3.8 - 9.9 K/cumm Final 05/31/2022 10.1 (H) 3.8 - 9.9 K/cumm Final White Blood Count Date Value Ref Range Status 02/27/2023 6.8 3.6 - 11.2 K/uL Final Comment: Repeated and Verified 08/24/2022 16.0 (H) 3.6 - 11.2 K/uL Final Hgb Date Value Ref Range Status 06/02/2022 10.9 (L) 11.9 - 15.5 g/dL Final 06/02/2022 10.9 (L) 11.9 - 15.5 g/dL Final 05/31/2022 10.9 (L) 11.9 - 15.5 g/dL Final Hemoglobin Date Value Ref Range Status 02/27/2023 11.0 (L) 11.9 - 15.5 g/dL Final 08/24/2022 10.3 (L) 11.9 - 15.5 g/dL Final Platelet Count Date Value Ref Range Status 02/27/2023 182 140 - 440 K/uL Final Comment: Repeated and Verified 08/24/2022 238 140 - 440 K/uL Final Comment: Repeated and Verified 03/09/2022 320 140 - 440 K/uL Final MCV Date Value Ref Range Status 02/27/2023 94.9 80.0 - 97.6 fL Final 08/24/2022 96.2 80.0 - 97.6 fL Final 06/02/2022 97.2 (H) 81.3 - 96.4 fL Final 06/02/2022 96.9 (H) 81.3 - 96.4 fL Final 05/31/2022 97.2 (H) 81.3 - 96.4 fL Final Creatinine Date Value Ref Range Status 02/27/2023 1.37 (H) 0.60 - 1.10 mg/dL Final 08/24/2022 1.35 (H) 0.60 - 1.10 mg/dL Final 06/06/2022 1.44 (H) 0.60 - 1.10 mg/dL Final 06/05/2022 1.69 (H) 0.60 - 1.10 mg/dL Final 06/04/2022 1.53 (H) 0.60 - 1.10 mg/dL Final BUN Date Value Ref Range Status 02/27/2023 29 (H) 7 - 23 mg/dL Final 08/24/2022 36 (H) 7 - 23 mg/dL Final 03/09/2022 44 (H) 7 - 23 mg/dL Final Sodium Date Value Ref Range Status 06/06/2022 140 135 - 145 mmol/L Final 06/05/2022 140 135 - 145 mmol/L Final 06/04/2022 139 135 - 145 mmol/L Final Potassium, pl Date Value Ref Range Status 06/06/2022 4.2 3.3 - 4.9 mmol/L Final 06/05/2022 5.6 (H) 3.3 - 4.9 mmol/L Final 06/04/2022 5.1 (H) 3.3 - 4.9 mmol/L Final AST Date Value Ref Range Status 05/29/2022 26 10 - 45 Units/L Final 05/28/2022 39 10 - 45 Units/L Final Comment: Hemolyzed; result may be falsely elevated 05/27/2022 See Comment 10 - 45 Units/L Final Comment: Credited; Hemolyzed Specimen AST (SGOT) Date Value Ref Range Status 02/27/2023 17 11 - 47 IU/L Final 08/24/2022 15 11 - 47 IU/L Final ALT Date Value Ref Range Status 05/29/2022 21 7 - 45 Units/L Final 05/28/2022 23 7 - 45 Units/L Final 05/27/2022 See Comment 7 - 45 Units/L Final Comment: Credited; Hemolyzed Specimen ALT (SGPT) Date Value Ref Range Status 02/27/2023 9 6 - 53 IU/L Final Comment: Repeated and Verified 08/24/2022 11 6 - 53 IU/L Final Alk phos Date Value Ref Range Status 05/29/2022 100 40 - 130 Units/L Final 05/28/2022 112 40 - 130 Units/L Final 05/27/2022 See Comment 40 - 130 Units/L Final Comment: Credited; Hemolyzed Specimen Alk Phos, Total Date Value Ref Range Status 02/27/2023 40 35 - 129 IU/L Final 08/24/2022 56 35 - 129 IU/L Final Bilirubin, total Date Value Ref Range Status 05/29/2022 0.3 0.1 - 1.2 mg/dL Final 05/28/2022 0.4 0.1 - 1.2 mg/dL Final 05/27/2022 0.4 0.1 - 1.2 mg/dL Final Total Bilirubin Date Value Ref Range Status 02/27/2023 0.21 0.20 - 1.40 mg/dL Final 08/24/2022 0.23 0.20 - 1.40 mg/dL Final ANCILLARY STUDIES: ASSESSMENT & PLAN: 73 YO F w seropositive RA & ILD on HCQ 200 BID, abatacept 125 qWeekly, and prednisone 2.5 BID p/w sx c/w acute RA flare. #Seropositive Rheumatoid Arthritis --Diagnosed 2019, placed on HCQ & MTX with progressive decline in respiratory status, particularly worsened after influenza in Sep 2021 -- MTX d/c'd in Nov 2021 -- was off HCQ for several weeks in February-April 16 d/t URI, now back on it --Currently on HCQ 200 BID, abatacept injections weekly, and prednisone 2.5 mg with uncontrolled diffuse polyarthralgia PLAN: -- Add short course of steroid taper starting at 20 mg daily x5d, then 15 mg x5d, 10 mg x5d, 5 mg x5d -> end of taper --continue the current prednisone 2.5mg daily in addition to above regimen -- cont HCQ 200 BID and weekly abatacept injections -- serial eye exams while on HCQ therapy #Interstitial Lung Disease -- likely related to RA -- being followed by Pulmonary -- stable fibrotic disease on hrCT, no additional med changes made at last visit 04/26/23 #Osteopenia -- Most recent DEXA scan shows T score of -2.4 at the hip and -2.3 at the spine -- Recent traumatic fracture of the spine and past atraumatic compression fractures -- alendronate since 02/14 and also on calcium and vitamin-D The patient is to return to clinic in 3 months. Be advised that voice recognition software has been used on this chart and inadvertent errors may occur. These may not represent a true interpretation of the dictation given. -- Anupam Garrido MD PGY-1 Adult Neurology Cosigned by Sandra Bauman MD at 06/26/2023 9:28 PM CDT Associated attestation - Sandra Bauman MD - 06/26/2023 9:28 PM CDT I have seen and examined the patient. I agree with the findings and plan of care as outlined in thenote by Dr. Garrido. 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)- Primary documented in this encounter Discontinued Medications Medication Sig Discontinue Reason Start Date End Da te furosemide (LASIX) 20 mg tablet Take 3 tablets (60 mg total) by mouth daily Therapy completed 10/29/2022 06/26/2023 levalbuterol (XOPENEX) 1.25 mg/3 mL nebulizer solution Take 3 mL (1.25 mg total) by nebulization every 6 (six) hours as needed for wheezing Therapy completed 06/26/2023 ondansetron (ZOFRAN) 4 mg tablet Take 1 tablet (4 mg total) by mouth every 8 (eight) hours as needed for nausea or vomiting Therapy completed 06/26/2023 documented as of this encounter Care Teams Sports Marketing Internship Relationship Specialty Start Date End Date Timothy Donis MD PCP - General Family Practice 04/12/23 Ni Armas, RN Registered Nurse Pulmonary Disease 01/11/23 documented as of this encounter
--- OUTSIDE RECORDS SUMMARY | 2024-11-15 05:54 | XMS_ITS | Encounter Summary ---
Author Organization [facility] Address [address] [place] [address] Phone Care Team Providers Care Homicide Squad Commanding Officer Name Role Phone Ni Armas RN Unavailable Lizette Timothy Land MD Primary Care Provider [phone] Encounter Details Date Type Department Care Team (Late st Contact Info) Description 01/01/2024 8:20 AM [employer] Office Visit [facility] Rheumatology [facility] 5th [place] [address] [place] [phone] Sandra Bauman MD [phone] [place] [address] High risk medication use (Primary Dx) Social History Tobacco Use Types Packs/Day Years Used Date Smoking Tobacco: Never Smokeless Tobacco: Never Tobacco Cessation:Counseling Given: Not Answered Alcohol Use Standard Drinks/Week Comments Not Currently 0 (1 standard drink = 0.6 oz pur e alcohol) Comments Unknown Sex and Gender Information Value Date Recorded Sex Assigned at Not on file Legal Sex Female 1:14 AM [employer] Gender Identity Female 05/04/2020 3:33 PM CDT Sexual Orientation Not on file 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 Not on file Not on file Not on file documented as of this encounter Last Filed Vital Signs Vital Sign Reading Time Taken Comments Blood Pressure 116/80 01/01/2024 8:21 AM [employer] Pulse 55 01/01/2024 8:21 AM [employer] Temperature 36.5 ??C (97.7 ??F) 01/01/2024 8:21 AM CS T Respiratory Rate - - Oxygen Saturation 99% 01/01/2024 8:21 AM [employer] Inhaled Oxygen Concentration - - Weight 106.6 kg (235 lb) 01/01/2024 8:21 AM [employer] Height 157.5 cm (5' 2 ) 01/01/2024 8:21 AM [employer] Body Mass Index 42.98 01/01/2024 8:21 AM [employer] documented in this encounter Ordered Prescriptions Prescription Sig Dispense Quantity Refills Last Filled Start Date End Date hydroxychloroquine (PLAQUENIL) 200 mg tablet Take 1 tablet (200 mg total) by mouth 2 (two) times a day 180 tablet 1 01/01/2024 predniSONE (DELTASONE) 2.5 mg tablet Take 1 tablet (2.5 mg) by mouth daily 90 tablet 1 01/01/2024 06/29/2024 predniSONE (DELTASONE) 5 mg tablet Start 01/06/24: Take 4 tabs/day x 4 days, 3 tabs/day x 4 days, 2 tabs/day x 4 days, and then 1 tab/day x 4 days. 40 tablet 01/01/2024 03/26/2024 documented in this encounter Progress Notes * Sandra Bauman MD - 01/01/2024 8:20 AM CST RHEUMATOLOGY PROGRESS NOTE DIAGNOSES: positive rheumatoid arthritis Interstitial lung disease DVT and PE Atrial fibrillation Congestive heart failure Sleep apnea Hypothyroidism Chief Complaint: follow up for seropositive RA, polyarthralgias SUBJECTIVE: Last seen in clinic on 10/01/23. On therapy with subcutaneous Orencia, prednisone 2.5 mg a day and hydroxychloroquine 200 mg b.i.d.. Had some interruption in Orencia therapy, has been back on Orencia for about 3-4 weeks. Had reported significant left hip at the time of last visit. XR hip c/w severe DJD. S/p orthopedic evaluation, not a surgical candidate. Is scheduled for steroid injections this Saturday. Has reported some intermittent pain in the hands and the wrists. Is unable to ambulate due tosevere hip pain. Review of Systems: All systems negative except [...] (CARDIZEM CD) 300 mg 24 hr capsule TAKE 1 CAPSULE(300 MG) BY MOUTH DAILY [address] (CYMBALTA) 20 [...] facility-administered medications for this visit. Objective: BP 116/80 Pulse 55 Temp 36.5 ??C (97.7 ??F) Ht 157.5 cm (5' 2 ) Wt 106.6 kg (235 lb) [id number]% BMI 42.98 kg/m?? General: alert, cooperative, no acute distress, appears uncomfortable Skin: Rash - Nodules: - Lungs: clear to auscultation bilaterally Heart: regular rate and rhythm, S1, S2 normal Abdomen: soft without mass, non-tender, with normal bowel sounds Joint Review Right Left Shoulder Mild tenderness over the joint line and ROM intact Mild tenderness over the joint line and ROM intact Elbow normal normal Wrist normal normal MCP Mild fullness over the 2/3 MCP joint normal PIP normal normal DIP normal normal Knee normal normal Ankle normal Sensitive to touch Foot normal normal Normal Hip ROM: Unable to assess d/t wheelchair bound status SI Joints: normal Spine: Normal alignment, no tenderness to palpation Swollen Joints: 3 Trigger/ tender Points; Tight Muscle Groups: tenderness over the left lower calf (has been on eliquis therapy) WBC Date Value Ref Range Status 10/09/2023 10.3 (H) 3.8 - 9.9 K/cumm Final Comment: Testing performed by: [facility], [address] [place] [address]., [id number] 06/02/2022 10.2 (H) 3.8 - 9.9 K/cumm Final 06/02/2022 11.3 (H) 3.8 - 9.9 K/cumm Final White Blood Count Date Value Ref Range Status 02/27/2023 6.8 3.6 - 11.2 K/uL Final Comment: Repeated and Verified 08/24/2022 16.0 (H) 3.6 - 11.2 K/uL Final Hgb Date Value Ref Range Status 10/09/2023 9.7 (L) 11.9 - 15.5 g/dL Final Comment: Interpretive Data A reference range for this assay has not been established for patients with an unknown legal sex. Please refer to the laboratory test catalog for established sex-specific reference intervals. Current interpretive data was last revised on 2023. Testing performed by: [address] [address] 06/02/2022 10.9 (L) 11.9 - 15.5 g/dL [...] Final MCV Date Value Ref Range Status 10/09/2023 103.2 (H) 81.3 - 96.4 fL Final Comment: Testing performed by: [facility], [address] [place] [address]., [id number] 02/27/2023 94.9 80.0 - 97.6 fL Final 08/24/2022 96.2 80.0 - 97.6 fL Final 06/02/2022 97.2 (H) 81.3 - 96.4 fL Final 06/02/2022 96.9 (H) 81.3 - 96.4 fL Final SCRIBED Creatinine Date Value Ref Range Status 06/24/2023 1.20 (A) 0.7 - 1.0 mg/dl Final Creatinine Date Value Ref Range Status 10/09/2023 1.10 0.60 - 1.10 mg/dL Final Comment: Testing performed by: [address] [address] 02/27/2023 1.37 (H) 0.60 - 1.10 mg/dL Final 08/24/2022 1.35 (H) 0.60 - 1.10 mg/dL Final 06/06/2022 1.44 (H) 0.60 - 1.10 mg/dL Final 06/05/2022 1.69 (H) 0.60 - 1.10 mg/dL Final BUN Date Value Ref Range Status 02/27/2023 29 (H) 7 - 23 mg/dL Final 08/24/2022 36 (H) 7 - 23 mg/dL Final 03/09/2022 44 (H) 7 - 23 mg/dL Final Sodium Date Value Ref Range Status 10/09/2023 138 135 - 145 mmol/L Final Comment: Testing performed by: [address] [address] 06/06/2022 140 135 - 145 mmol/L Final 06/05/2022 140 135 - 145 mmol/L Final Potassium, pl Date Value Ref Range Status 10/09/2023 4.8 3.3 - 4.9 mmol/L Final Comment: HEMOLYZED: Hemolysis interferes with the above test. Testing performed by: [address] [address] 06/06/2022 4.2 3.3 - 4.9 mmol/L Final 06/05/2022 5.6 (H) 3.3 - 4.9 mmol/L Final AST Date Value Ref Range Status 10/09/2023 20 10 - 45 Units/L Final Comment: HEMOLYZED: Hemolysis interferes with the above test. Testing performed by: [address] [address] 05/29/2022 26 10 - 45 Units/L Final 05/28/2022 39 10 - 45 Units/L Final Comment: Hemolyzed; result may be falsely elevated AST (SGOT) Date Value Ref Range Status 02/27/2023 17 11 - 47 IU/L Final 08/24/2022 15 11 - 47 IU/L Final ALT Date Value Ref Range Status 10/09/2023 7 7 - 45 Units/L Final Comment: HEMOLYZED: Hemolysis interferes with the above test. Testing performed by: [address] [address] 05/29/2022 21 7 - 45 Units/L Final 05/28/2022 23 7 - 45 Units/L Final ALT (SGPT) Date Value Ref Range Status 02/27/2023 9 6 - 53 IU/L Final Comment: Repeated and Verified 08/24/2022 11 6 - 53 IU/L Final Alk phos Date Value Ref Range Status 10/09/2023 46 40 - 130 Units/L Final Comment: Testing performed by: [address] [address] 05/29/2022 100 40 - 130 Units/L Final 05/28/2022 112 40 - 130 Units/L Final Alk Phos, Total Date Value Ref Range Status 02/27/2023 40 35 - 129 IU/L Final 08/24/2022 56 35 - 129 IU/L Final Bilirubin, total Date Value Ref Range Status 10/09/2023 0.2 0.1 - 1.2 mg/dL Final Comment: Testing performed by: [address] [address] 05/29/2022 0.3 0.1 - 1.2 mg/dL Final 05/28/2022 0.4 0.1 - 1.2 mg/dL Final Total Bilirubin Date Value Ref Range Status 02/27/2023 0.21 0.20 - 1.40 mg/dL Final 08/24/2022 0.23 0.20 - 1.40 mg/dL Final ANCILLARY STUDIES: ASSESSMENT & PLAN: Seropositive Rheumatoid Arthritis --Diagnosed 2018, placed on HCQ & MTX with progressive decline in respiratory status, particularly worsened after influenza in Sep 2021 -- MTX d/c'd in Nov 2021 --Currently on HCQ 200 BID, abatacept injections weekly, and prednisone 2.5 mg/day --continue the course for now --serial eye exams while on HCQ therapy 2. Interstitial Lung Disease -- likely related to RA -- being followed by Pulmonary -- stable fibrotic disease on hrCT, no additional med changes made at last visit 04/26/23 3. Osteopenia -- Most recent DEXA scan shows T score of -2.4 at the hip and -2.3 at the spine -- Recent traumatic fracture of the spine and past atraumatic compression fractures -- alendronate since 02/14 and also on calcium and vitamin-D 4.DJD L Hip: --being set up for Intra-articular steroid injections The patient is to return to clinic in 3 months. Be advised that voice recognition software has been used on this chart and inadvertent errors may occur. These may not represent a true interpretation of the dictation given. [employer] documented in this encounter Plan of Treatment Not on file documented as of this encounter Results * Erythrocyte sedimentation rate (01/15/2024 8:08 AM [employer]) Pathologist [facility] Erythrocyte sedimentation rate 12 1 - 30 mm/hr KURT Comment:Testing performed by : [address] [address] Blood 01/15/2024 8:08 AM [employer] 01/15/2024 8:32 AM [employer] Sandra Bauman MD LAB BLOOD ORDERABLES Final Resul t Performing Organization Address City/[facility] Co de Phone Number [address] [place] [address] * CRP (acute phase) (01/15/2024 8:08 AM [employer]) Pathologist [facility] CRP 2.1 <=10.0 mg/L KURT Comment:Testing performed by : [address] [address] Blood 01/15/2024 8:08 AM [employer] 01/15/2024 8:32 AM [employer] Sandra Bauman MD LAB BLOOD ORDERABLES Final Resul t Performing Organization Address City/[facility] Co de Phone Number [address] [place] [address] * (ABNORMAL) Comprehensive metabolic panel (01/15/2024 8:08 AM [employer]) Pathologist [facility] Sodium 140 135 - 145 mmol/L K[facility]T CRAIG Comment:Testing performed by : [address] [address] Potassium, pl 4.3 3.3 - 4.9 mmol/L K[facility]T CRAIG Comment:Testing performed by : [address] [address] Chloride 99 97 - 110 mmol/L KURT Comment:Testing performed by : [address] [address] CO2 30 22 - 32 mmol/L KURT Comment:Testing performed by : [address] [address] Anion gap 11 2 - 15 mmol/L KURT Comment:Testing performed by : [address] [address] BUN 41(H) 6 - 25 mg/dL [facility]URT Comment:Testing performed by : [address], [place]., [address] Creatinine 1.00 0.60 - 1.10 mg/dL [facility]URT Comment:Testing performed by : [address] [address] Glucose 82 70 - 199 mg/dL KURT Comment: Interpretive Data Fasting glucose >/= 126 mg/dl is diagnostic for diabetes. ?? Fasting is defined as no caloric intake for at least 8 hours. Fasting glucose between 100 mg/dl to 125 mg/dl is diagnostic of prediabetes. In a patient with classic symptoms of hyperglycemia or hyperglycemic crisis, a random glucose >/= 200 mg/dl is diagnostic for diabetes. In the absence of unequivocal hyperglycemia, results should be confirmed by repeat testing. The classification and Diagnosis of Diabetes Diabetes Care 202; 46: S19-S40. Current interpretive data was last revised 2022. Testing performed by: [address] [address] Calcium 9.7 8.5 - 10.3 mg/dL KURT Comment:Testing performed by : [address] [address] Bilirubin, total 0.2 0.1 - 1.2 mg/dL KURT Comment:Testing performed by : [address] [address] Protein, pl 6.4(L) 6.5 - 8.5 g/dL KURT Comment:Testing performed by : [address] [address] Albumin 4.0 3.5 - 5.0 g/dL [facility]T CRAIG Comment:Testing performed by : [address] [address] Alk phos 33(L) 40 - 130 Units/L [facility]T CRAIG Comment:Testing performed by : [address] [address] ALT 8 7 - 45 Units/L KURT CRAIG Comment:Testing performed by : [address] [address] AST 10 10 - 45 Units/L KURT CRAIG Comment:Testing performed by : [address] [address] Blood 01/15/2024 8:08 AM [employer] 01/15/2024 8:32 AM [employer] us Sandra Bauman MD LAB BLOOD ORDERABLES Final Resul t [facility] Department [place] [address] * (ABNORMAL) CBC with auto differential (01/15/2024 8:08 AM [employer]) WBC 11.2(H) 3.8 - 9.9 K/cumm KURT CRAIG Comment:Testing performed by : [address] [address] Hgb 9.5(L) 11.9 - 15.5 g/dL [facility]T CRAIG Comment:Testing performed by : [address] [address] Hct 31.3(L) 35.6 - 45.5 % KURT CRAIG Comment:Testing performed by : [address] [address] Plt 237 150 - 400 K/cumm KURT CRAIG Comment:Testing performed by : [address] [address] MPV 9.6 9.1 - 12.3 fL [facility]T CRAIG Comment:Testing performed by : [address] [address] RBC 3.18(L) 3.90 - 5.20 M/cumm KURT CRAIG Comment:Testing performed by : [facility], [address] [place] [address]., [address] MCV 98.4(H) 81.3 - 96.4 fL KURT Comment:Testing performed by : [address] [address] MCH 29.9 27.1 - 33.3 pg KURT CRAIG Comment:Testing performed by : [address] [address] MCHC 30.4(L) 32.3 - 35.7 g/dL KURT Comment:Testing performed by : [address] [address] RDW CV 13.6 11.1 - 14.9 % KURT Comment:Testing performed by : [address] [address] RDW SD 49.4(H) 35.7 - 48.1 fL KURT Comment:Testing performed by : [address] [address] NRBC abs 0.00 0.00 - 0.01 K/cumm KURT Comment:Testing performed by : [address] [address] Blood 01/15/2024 8:08 AM [employer] 01/15/2024 8:32 AM [employer] us Sandra Bauman MD LAB BLOOD ORDERABLES Final Resul t [facility] [address] [facility] Department [place] [address] documented in this encounter Visit Diagnoses Diagnosis High risk medication use- Primary documented in this encounter Discontinued Medications Medication Sig Discontinue Reason Start Date End Da te hydroxychloroquine (PLAQUENIL) 200 mg tablet Take 1 tablet (200 mg total) by mouth 2 (two) times a day Reorder 11/26/2019 01/01/2024 predniSONE (DELTASONE) 2.5 mg tablet TAKE 1 TABLET(2.5 MG) BY MOUTH DAILY Reorder 11/27/2023 01/01/2024 documented as of this encounter Care Teams Homicide Squad Commanding Officer Relationship Specialty Start Date End Date Timothy Donis MD PCP - General Family Practice 04/12/23 Ni Armas, RN Registered Nurse Pulmonary Disease 01/11/23 documented as of this encounter
--- OUTSIDE RECORDS SUMMARY | 2024-11-15 05:54 | XMS_ITS | Encounter Summary ---
Author Organization [facility] Address [address] [place] [address] Care Team Providers Care Retail Equipment Associate Name Role Phone Ni Armas RN Unavailable Lizette Timothy Land MD Primary Care Provider [phone] Reason for Referral * Cardiology (Routine) - Closed Specialty Diagnoses / Procedures Referred By Contac t Referred To Contact Diagnoses HFrEF (heart failure with reduced ejection fraction) (CMS/HCC) (HCC) Procedures Transthoracic Echo (TTE) Complete W Doppler/CF Yolanda Washington NP [address] [address] Phone: tel: fax: [facility] Referral ID Status Reason Start Date Expiration Date Visits Re quested Visits Authorized [id number] Closed 04/26/2023 05/25/2024 1 1 Reason for Visit * Reason Comments Follow-up 2 wk Encounter Details Date Type Department Care Team (Late st Contact Info) Description 04/26/2023 2:30 PM CDT Office Visit [facility] Cardiology [address] [id number] Yolanda Washington NP [address] [facility] [address] [address] HFrEF (heart failure with reduced ejection fraction) (CMS/HCC) (HCC) (Primary Dx); Dilated cardiomyopathy (CMS/HCC) (HCC); Longstanding persistent atrial fibrillation (CMS/HCC) (HCC) Social History Tobacco Use Types Packs/Day Years Used Date Smoking Tobacco: Never Smokeless Tobacco: Never Alcohol Use Standard Drinks/Week Comments Not Currently 0 (1 standard drink = 0.6 oz pur e alcohol) Comments Unknown Sex and Gender Information Value Date Recorded Sex Assigned at Not on file 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 Gender Identity Female 05/04/2020 3:33 PM CDT Sexual Orientation Not on file 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 Not on file Not on file Not on file documented as of this encounter Last Filed Vital Signs Vital Sign Reading Time Taken Comments Blood Pressure 108/58 04/26/2023 2:19 PM CDT Pulse 64 04/26/2023 2:19 PM CDT Temperature - - Respiratory Rate - - Oxygen Saturation 97% 04/26/2023 2:19 PM CDT Inhaled Oxygen Concentration - - Weight 103.4 kg (228 lb) 04/26/2023 2:19 PM CDT Height 157.5 cm (5' 2 ) 04/26/2023 2:19 PM CDT Body Mass Index 41.7 04/26/2023 2:19 PM CDT documented in this encounter Progress Notes * Yolanda Washington NP - 04/26/2023 2:30 PM CDT Images from the original note were not included. [facility] Cardiology [address] [place] [address] Date of Visit: 04/26/2023 Patient ID: Ayanna Cash 1950 Chief Complaint Patient presents with Follow-up 2 wk Ayanna Cash is a 73 y.o. female who is an established patient of Dr. Reyes with atrial fibrillation and recent frequent hospitalizations for heart failure, returning to the office for short interval follow-up after starting Entresto. History of Present Illness: Ayanna Cash is a 73 y.o. femalewith a PMHx of rheumatoid arthritis, hypertension, hyperlipidemia, morbid obesity, STARR, diastolic heart failure, atrial fibrillation, and interstitial lung disease. She was on amiodarone and digoxin in the past , [facility] showed EF 60%. She was previously followed by Dr. Parker. Her cryptologic support specialist is Dr. Norman. Her telecommunications officer is Dr. Kobe Gerard. [facility]2020 with complaint of worsening shortness of breath. Dr. Reyes met her in consultation. She was diuresed, improved and discharged to home. However, she presented back to the hospital on 01/27/2020 with weakness and was found to be in acute kidney injury from dehydration (was taking spironolactone 50 mg daily and furosemide 40 mg b.i.d., and not drinking adequate fluids). She was rehydrated, diuretics and lisinopril were held and her renal function improved. Her metoprolol was up titrated because her heart rate was elevated. I discharge her metoprolol was set 125 mg daily and her furosemide was restarted at 40 mg daily. Spironolactone was discontinued. 02/09/20 HFU w/ CAT- she comes to the office today for hospital follow-up. She is accompanied by adela. Since discharge she has been feeling better but over the last few days has felt more fatigued. She is able to go up the 14 steps in her house, and her heart rate will elevate to about 120 bpm, but then it promptly goes back down. She has been weighing herself daily at home in weights havebeen stable. She is trying to drink 2 L of fluid a day but sometimes finds it hard to finish all ofit. She wears oxygen p.r.n. Activity. She is using her CPAP machine nightly, but sometimes remove sit group home through the night. PCP follows her INRs and yesterday it was 2.6. She denies any bleeding. Twelve lead ECG performed in the office today was reviewed by me personally and shows atrial fibrillation with variable ventricular response, rate 80 beats per minute. On 02/02/2020, her K was 4.4, BUN 24, creatinine 1.2. 05/05/20 c/o more pain in legs and things like they are on fire. Edema persists, weight unchanged. Breathing ok with O2 on or short walking but otherwise not very good. Additional Lasix 20mg in afternoon to Lasix 40mg in AM after 2 week made no difference so she is now only taking Lasix 40mg in AM. She is still watching fluid and sodium intake <2000mg daily. She is not active or moving per daughter because her legs hurt up to her thighs. Primary complaint is leg pain. Goes to see Rheum in May she thinks weaning prednisone making her pain worse picking up around 5mg prednisone daily. In February, pain was not that bad supposedly. Doing ok when she had PT at the house but admits she is not doing what she is supposed to do. RA is a limiting issue. -No CP, palps, falls or bleeding. CPAP use at night consistent but takes frequent naps during day and not using. 07/07/20 OV w/ CAT-she returns for routine follow-up, accompanied by her daughter. No complaints today. She denies palpitations or chest pain, denies any bleeding problems, INR checked last week was 2.7. Has been trying to lose some weight, following a [id number] Na restriction. Now using a foot pedal for some exercise. Her LE swelling does improve with elevation. She typically uses a walker but came to the office in a wheelchair due to the longer distance. Compliant with CPAP at night but does not use it during the day for a nap. 01/12/21 Edema present but not as bad stable, trying to keep salt down, doing well now she states. Has changed diet, gave up cheese, no processed lunch meats, no CP or new SOB. Wearing CPAP every night, now used to it. No palps. No dizziness. Ashley meds. Still seeing Rheum, she c/o legs and hip pain told was OA. Toprol XKL 125mg daily along with warfarin. Patient is accompanied by her daughter who also agreed she is doing better overall. 09/29/21 CAT visit-On 09/21/21 she went to [facility] ER for complaint of worsening shortnessof breath. She was in sinus rhythm with a heart rate in the 90s. Labs included a proBNP of 677, negative troponin, BUN 32, creatinine 1.2, H&H 11 and 34.9, chest x-ray showed no acute process. ABG showed a pCO2 of 29 and a PO2 of 184.9, bicarb 19.5 and pH 7.43. She was given the diagnosis of COPD exacerbation and CHF exacerbation. She take a she returns to the office accompanied by her daughter. She is still short of breath and is highly concerned. Her daughter thinks her symptoms are due to the COVID booster shot that she got about 4 days before her symptom onset. Her oxygen saturation at rest without supplemental oxygen is about 80% and it will improve with wearing oxygen anywhere from 88-97%. When she walks around wearing her oxygen her saturation is 85-88%. She notices that her heart rate jumps up sometimes to the 160s when she is walking around. She reports not missing any doses of Eliquis but wonders if she could have a PE. She sees her PCP next . Dr. Norman has referred her to pulmonology at [facility] and that appointment is next month. 12-lead ECG performed in the office today was independently interpreted by me and showed sinus rhythm, normal axis and normal intervals, rate 88 beats per minute 11/02/21 Says not feeling any better at all after admission to [facility] with influenza B hurts to doeverything takes a lot out of her, no energy or appetite, SOB same as before. Attributes a lot to being off her pain meds including Hydroxychloroquine and Methotrexate for a while while in hospital. On CPAP. Not much edema though. Pain is mostly in shoulders and hands. Uses heating pad and Tylenol.Saw PCP recently. Sees Pulm at [facility] tomorrow. Using 2L O2 at rest 4L O2 with activity. She notes her O2 drops to 85% on 4L still. Rheum adjusting meds on prednisone for 1 week without noted improvement thus far. Has PT coming into home. 04/17/22 Admitted to [facility] with ILD and CHF admits she hasn't been monitoring her diet as much says she just can't eat at home it's boring so eating out more. For a while was eating a lot of cookies, eating lightly salted potato chips, steaks, hamburgers on buns, spaghetti, pasta. Eats fettucciniweekly or so. BP has been ok. Has more edema but does not feel all her weight is fluid. Wants to know why she is gaining weight, no active either. Currently Lasix 40mg alternating with 60mg. She eats to stay awake as she falls asleep very easily.Wears CPAP at night.breathing is stable. Wearing O2. Daughter mentions she drinks a lot of soda shesays 3 cans daily (which pt did not mention). 05/10/22 CAT visit-at the last visit furosemide was increased to 60 mg daily and she was counseled extensively on low-sodium diet compliance. A new BMP showed slight elevation in creatinine to 1.3 (baseline 1.1), potassium normal, she was advised to repeat BMP in 1-2 weeks. Today she returns to the office with her daughter. She reports she can tell she has lost fluid weight. She is trying better to follow the low-sodium diet. She has no complaints. She repeated the BMP this morning. 06/22/22 CAT visit - she was hospitalized at [facility] 05/25-05/26 for pulmonary edema, tested positive for COVID, treated for rib fractures due to a fall 2 days prior. Then hospitalized at [facility] 05/27-06/07for treatment of pneumonia (bacterial verses COVID) / COPD exacerbation, diastolic heart failure exacerbation. She became bradycardic on telemetry (heart rate 30-40 with pause up to 3 seconds) so remdesivir was stopped and metoprolol was stopped. IV furosemide caused MIKE so she was discharged without furosemide but [facility] ([facility] is at [facility] in [place]). When she is doing physical therapy her heart rate will go in the 150s. She cannot feel the tachycardia. She denies any bleeding problems. She states the swelling in her legs ???goes up and down?? and she is having wraps placed by the staff there. Oxygen requirement remains the same. 09/13/22 then in June had kidney stones dehydration now feeling much better. Taking Lasix 60mg daily having difficulty drinking enough water drinking 3 coffee daily not soda like before. Breathing is fine right now feels good has O2 ok at rest off O2 but any activity wears it. Toprol XL 50mg daily, Eliquis 5mg BID, Plaquenil, KCl 20MEQ daily. Doing quite well currently. Edema. Family helping her now cooking without salt no fast foods at all and is working out well. 12/27/22 Doing fine, trying to follow her diet and ashley meds. On Orencia trying to reduce prednisone now 2.5mg daily controlling her pain. Feels fairly well. LAsix 60mg daily. Followed by Renal and Rheum. Ashley CPAP quite well. Sometimes appetite not that great occ diarrhea or constipation, sometime nocturia no UTI they state per recnet Renal visit. Here with daughter. 04/12/23 recurrent admissions for cough, CHF, AFib with RVR and atrial flutter with RVR. Went to [facility] after February admission then back to [facility] in March after and she feels diet at [facility] is to fault and salty. Cough is incessant at [facility]. Has blood in stool reported Elisa recommended discharge yesterday on Dilt 300mg daily and Toprol XL 150mg Lasix 40mg BID Echo with EF 27% but in AF with RVR. Extensively reviewed [facility] records. Patient's daughter veryconcerned about her cough has been no different throughout hospitalizations of late. They admit that her interstitial lung disease is progressing. No improvement with antibiotics for diuresis or change in medications. 04/26/23 CAT visit-Entresto was started at the last visit. She had no perceived problems with it and had a BNP drawn a week ago. She feels her breathing is a little better and her swelling is a little better. Legs do get more swollen throughout the day if she does not elevate them. Today she had an appointment at [facility] with her cryptologic support specialist so she has not been able to elevate the legs at all and therefore there more swollen. She has a history of frequent UTIs. Records that I personally reviewed on the day of this visit include: (the interpretation is outlined in the HPI above) 04/12/[address] Reyes, 04/06/2023 echocardiogram report. I have also reviewed: allergies, current medications, past family history, past medical history, past social history, past surgical history and problem list. Medical History: Past Medical History: Diagnosis Date Atrial fibrillation (CMS/HCC) ([facility]) Cataracts, bilateral CHF (congestive heart failure) (CMS/HCC) ([facility]) Chronic kidney disease 2021 Depression 12/2021 Diastolic dysfunction Diverticulitis H/O section Heart disease Hypertension Kidney stone 2021 Obesity Sleep apnea Thyroid disease Wears dentures Past Surgical History: Procedure Laterality Date CATARACT EXTRACTION 2021 both eyes SECTION CHOLECYSTECTOMY JOINT REPLACEMENT Knee replacement both (L) & (R) THYROIDECTOMY Social History Tobacco Use Smoking Status Never Smokeless Tobacco Never Social History Tobacco Use Smoking status: Never Smokeless tobacco: Never Substance and Sexual Activity Drug use: Never Sexual activity: Never Alcohol Use: Not on file Family History Problem Relation Age of Onset Hypertension Mother Blood Clot Father Clotting disorder Father Rheum arthritis Father No Known Problems Sister No Known Problems Sister Review of Systems Constitutional: Positive for malaise/fatigue. Negative for weight gain and weight loss. Cardiovascular: Positive for dyspnea on exertion. Negative for chest pain, claudication, leg swelling, near-syncope, orthopnea, palpitations, paroxysmal nocturnal dyspnea and syncope. Respiratory: Positive for cough and shortness of breath. Negative for sleep disturbances due to breathing. Hematologic/Lymphatic: Negative for bleeding problem. Does not bruise/bleed easily. Neurological: Negative for dizziness and light-headedness. Vital Signs: BP 108/58 (BP Location: Left arm, Patient Position: Sitting) Pulse 64 Ht 157.5 cm (5' 2 ) Wt 103.4 kg (228 lb) SpO2 97% BMI 41.70 kg/m?? Physical Exam Constitutional: General: She is not in acute distress. Appearance: She is well-developed. Comments: Seated in wheelchair HENT: Head: Normocephalic and atraumatic. Eyes: General: No scleral icterus. Conjunctiva/sclera: Conjunctivae normal. Neck: Vascular: No JVD. Trachea: No tracheal deviation. Cardiovascular: Rate and Rhythm: Normal rate. Rhythm irregular. Heart sounds: Normal heart sounds. No murmur heard. Comments: Apical heart rate approx 80 beats per minute Pulmonary: Effort: Pulmonary effort is normal. No respiratory distress. Breath sounds: Normal breath sounds. Musculoskeletal: Right lower leg: Edema present. Left lower leg: Edema present. Skin: General: Skin is warm and dry. Neurological: Mental Status: She is alert and oriented to person, place, and time. Psychiatric: Mood and Affect: Mood normal. Behavior: Behavior normal. No Known Allergies Current Outpatient Medications: abatacept (Orencia ClickJect) 125 mg/mL auto-injector, , Disp: , Rfl: acetaminophen 325 mg capsule, Take by mouth, Disp: , Rfl: alendronate (FOSAMAX) 70 mg tablet, , Disp: , Rfl: calcium carbonate-vit D3-min 600 mg calcium- 400 unit tablet, Take by mouth 2 (two) times a day , Disp: , Rfl: cholecalciferol (VITAMIN D-3) 2000 unit tablet, Take 0.5 tablets (1,000 Units total) by mouth daily, Disp: , Rfl: cholestyramine (QUESTRAN) 4 gram packet, , Disp: , Rfl: cyanocobalamin (Vitamin B-12) 1,000 mcg tablet, Take 1 tablet (1,000 mcg total) by mouth daily, Disp: , Rfl: dilTIAZem CD (CARDIZEM CD) 300 mg 24 hr capsule, Take 1 capsule (300 mg total) by mouth daily, Disp: , Rfl: DULoxetine DR (CYMBALTA) 20 mg capsule, Take 1 capsule (20 mg total) by mouth daily, Disp: , Rfl: Eliquis 5 mg tablet, Take 1 tablet (5 mg total) by mouth 2 (two) times a day, Disp: , Rfl: furosemide (LASIX) 40 mg tablet, Take 1 tablet (40 mg total) by mouth 2 (two) times a day, Disp: , Rfl: hydroxychloroquine (PLAQUENIL) 200 mg tablet, Take 1 tablet (200 mg total) by mouth 2 (two) times aday, Disp: , Rfl: levothyroxine (SYNTHROID) 112 mcg tablet, Take 1 tablet (112 mcg total) by mouth daily, Disp: , Rfl: metoprolol XL (TOPROL-XL) 25 mg extended release tablet, Take 2 tablets (50 mg total) by mouth daily (Patient taking differently: Take 6 tablets (150 mg total) by mouth daily), Disp: 60 tablet, Rfl: 11 ondansetron (ZOFRAN) 4 mg tablet, Take 1 tablet (4 mg total) by mouth every 8 (eight) hours as needed for nausea or vomiting, Disp: , Rfl: pantoprazole DR (PROTONIX) 40 mg EC tablet, Take 1 tablet (40 mg total) by mouth daily, Disp: , Rfl: potassium chloride ER (KLOR-CON) 20 mEq CR tablet, 1 tablet (20 mEq total) 2 (two) times a day, Disp: , Rfl: pravastatin (PRAVACHOL) 80 mg tablet, Take 1 tablet (80 mg total) by mouth daily, Disp: , Rfl: predniSONE (DELTASONE) 2.5 mg tablet, Take 1 tablet (2.5 mg) by mouth daily, Disp: 30 tablet, Rfl: 2 sacubitriL-valsartan (ENTRESTO) 24-26 mg tablet, Take 1 tablet by mouth 2 (two) times a day, Disp: 60 tablet, Rfl: 11 traMADoL (ULTRAM) 50 mg tablet, Take 1 tablet (50 mg total) by mouth every 8 (eight) hours as needed for pain, Disp: 21 tablet, Rfl: 0 furosemide (LASIX) 20 mg tablet, Take 3 tablets (60 mg total) by mouth daily (Patient not taking: Reported on 04/26/2023), Disp: 270 tablet, Rfl: 3 levalbuterol (XOPENEX) 1.25 mg/3 mL nebulizer solution, Take 3 mL (1.25 mg total) by nebulization every 6 (six) hours as needed for wheezing (Patient not taking: Reported on 04/26/2023), Disp: , Rfl: Lab Results Component Value Date POTASSIUM 4.2 06/06/2022 BUNSER 31 (H) 06/06/2022 CREATININE 1.37 (H) 02/27/2023 Lab Results Component Value Date WBC 6.8 02/27/2023 HGB 11.0 (L) 02/27/2023 HCT 34.3 (L) 02/27/2023 MCV 94.9 02/27/2023 PLT 182 02/27/2023 No results found for this or any previous visit (from the past 4 hour(s)). Lab Results Component Value Date POCCHOL 153 12/27/2022 POCHDL 88 12/27/2022 POCTRIG 113 12/27/2022 POCLDL 42 12/27/2022 POCNONHDL 64 12/27/2022 POCCHLPL 153 12/27/2022 Assessment: Diagnoses and all orders for this visit: HFrEF (heart failure with reduced ejection fraction) (CMS/HCC) ([facility]) (Primary) - Transthoracic Echo (TTE) Complete W Doppler/CF; Future Dilated cardiomyopathy (CMS/HCC) ([facility]) Longstanding persistent atrial fibrillation (CMS/HCC) ([facility]) Plan/Recommendations: She has tolerated initiation of Entresto. I have asked my staff to get a copy of the BMP she had drawn at her assisted living. I discussed further optimization of her medical therapy with an SGLT2 inhibitor. However she has a history of frequent UTIs which have been difficult to treat. Therefore I do not advise initiating SGLT2 inhibitor. I recommend ongoing medical therapy with the metoprolol, Entresto and furosemide. Reassess LV function by repeat echo in mid to late June which will be 3 months after initiating Entresto. In the interim, notify the office of shortness of breath and or edema worsens again. Atrial fibrillation is rate controlled on exam and appears asymptomatic. Continue metoprolol, diltiazem and Eliquis. Return to the office for follow-up with Dr. Reyes after the echocardiogram in June. Call us sooner with questions or concerns. 04/26/2023 CRISTEL Abdi-BC Nurse Practitioner with [facility] Cardiology This note is dictated and transcribed using [employer] Direct Software. Spare Hand variancesmay occur. Despite proofreading, typographical errors may occur. Cosigned by Myles Reyes MD at 04/26/2023 3:27 PM CDT documented in this encounter Plan of Treatment Not on file documented as of this encounter Results * TRANSTHORACIC ECHO (TTE) COMPLETE W DOPPLER/CF WO CONTRAST (07/26/2023 1:52 PM CDT) Anatomical Region Laterality Modality Ultrasound 07/26/2023 1:21 PM CDT Narrative 07/26/2023 6:25 PM CDT [facility] Cardiology [address] [address] [address], [place] [address] P:[phone] P:[phone] Echocardiographic Report Patient Name: AYANNA ACSH L : 1950 Study Date: 07/26/2023 1:21:58 PM Gender: F Tech: Location: [place] Ref.Provider: YOLANDA WASHINGTON Height(Cm): 157 BSA: 2.28 Weight(Kg): 119.3 Heart Rate: 91 BP: 125 / 84 Quality: Good Order Provider: YOLANDA WASHINGTON Procedures: Echocardiographic Report: Transthoracic echocardiogram with complete 2D, M-Mode, and color Doppler examination. With Strain Analysis. Indications: Eval for LV fx, and Congestive Heart Failure. Measurements: 2D/M Mode ? Doppler ? Measurement ?Value ?Normal Range ?Measurement ?Value ?Normal Range ? LVIDd 2D ? 4.61 ? [ 3.90 - 5.30 ] cm ?QUINTIN Vmax ? 1.92 ? [ 2.00 - 4.00 ] cm2 ? LVIDs 2D ? 3.40 ? [ 2.30 - 3.90 ] cm ?AV Mean PG ? 4 ?mmHg ? LVPWd 2D ? 1.18 ? [ 0.60 - 1.00 ] cm ?AV Peak Juan Francisco ?1.57 ? m/s ? IVSd 2D ?1.06 ? [ 0.60 - 0.90 ] cm ?AV Peak PG ? 10 ? mmHg ? LA Dimension MM ?4.68 ? [ 2.70 - 3.80 ] cm ?AV VTI ? 25.31 ?cm ? AoR Diam MM ?2.99 ? [ 2.60 - 3.70 ] cm ?LVOT Diam ?1.98 ? [ 1.70 - 2.10 ] cm ? LA Volume Index ?30 ? [ 16 - 28 ] cc/m2 ? LVOT Peak Juan Francisco ?0.98 ? [ 0.70 - 1.10 ] m/s ?LVOT VTI ? 20.03 ?cm ?MV E Peak Juan Francisco ?0.82 ? [ 0.60 - 1.30 ] m/s ?MV A Peak Juan Francisco ?0.34 ? [ 0.40 - 0.80 ] m/s ?MV Decel Time ?151 ?[ 150 - 200 ] msec ?TR Peak Juan Francisco ?2.49 ? m/s ?TR Peak PG ? 25 ? mmHg ?Lateral E` ? 0.11 ? cm/sec ?E` ? 0.08 ? cm/sec ?E/E` ? 7 ? - Findings: Interpretation Site: Exam was interpreted at [facility]. Left Ventricle: Normal left ventricular size. Mild concentric left ventricular hypertrophy. Left ventricular systolic function at the lower limit of normal. Paradoxical septal motion consistent with IVCD or bundle branch block. Indeterminate diastolic function. Ejection fraction is visually estimated at 50-55 %. Global Longitudinal Strain is -10 %. GLS is abnormal. Right Ventricle: Normal right ventricular size. Mild right ventricular hypokinesis. Left Atrium: There is mild enlargement of left atrium. Right Atrium: The right atrium is normal in size. Atrial Septum: Thin and hypermobile atrial septum. Mitral Valve: Mitral valve leaflets appear mildly thickened. Mild mitral annular calcification. There is straightening of the anterior and posterior mitral valve leaflets without clear prolapse. Mild mitral valve regurgitation. Aortic Valve: Normal appearance of the aortic valve. No evidence of hemodynamically significant aortic stenosis by Doppler. Aortic cusps appear mildly sclerotic. Trileaflet aortic valve. No aortic regurgitation. Tricuspid Valve: Normal appearance of the tricuspid valve. Normal right ventricular systolic pressure. Mild tricuspid regurgitation. Pulmonic Valve: Normal appearance of the pulmonic valve. Trivial regurgitation in the pulmonic valve. Pericardium: Normal pericardium with no significant pericardial effusion. Trivial pericardial effusion. Aorta: Normal aortic root. No aortic root dilation. Mild aortic root calcification. IVC: Normal size and normal respiratory collapse consistent with normal right atrial pressure (<5 mmHg). Conclusions: Normal left ventricular size. Mild concentric left ventricular hypertrophy. Left ventricular systolic function at the lower limit of normal. Paradoxical septal motion consistent with IVCD or bundle branch block. Indeterminate diastolic function. Ejection fraction is visually estimated at 50-55 %. Global Longitudinal Strain is -10 %. GLS is abnormal. Normal right ventricular size. Mild right ventricular hypokinesis. Mitral valve leaflets appear mildly thickened. Mild mitral annular calcification. There is straightening of the anterior and posterior mitral valve leaflets without clear prolapse. Mild mitral valve regurgitation. Atrial fibrillation. Electronically Signed By: Geetha Reyes MD 2023-07-26 18:25:24 CDT CC: CC: Procedure Note Myles Reyes MD - 07/26/2023 [facility] [address] [facility] [address] [address] [address] [facility] [address] [address] P:[phone] P:[phone] Echocardiographic Report Patient Name: AYANNA CASH LPatieunruly ID: [id number] : [id number] Date: 07/26/2023 1:21:58 PM Gender: FAccession #: [id number] Tech: Location: [place] Ref.Provider: Crason WASHINGTON(Cm): 157 BSA: 2.28Weight(Kg): 119.3 Heart Rate: 91BP: 125 / 84 Quality: GoodOrder Provider: YOLANDA WASHINGTON Procedures: Echocardiographic Report: Transthoracic echocardiogram with complete 2D, M-Mode, and color Dopplerexamination. With Strain Analysis. Indications: Eval for LV fx, and Congestive Heart Failure. Measurements: 2D/M Mode Doppler Measurement Value Normal Range Measurement ValueNormal Range LVIDd 2D 4.61 [ 3.90 - 5.30 ] cm QUINTIN Vmax 1.92[ 2.00 - 4.00 ] cm2 LVIDs 2D 3.40 [ 2.30 - 3.90 ] cm AV Mean PG 4mmHg LVPWd 2D 1.18 [ 0.60 - 1.00 ] cm AV Peak Juan Francisco 1.57m/s IVSd 2D 1.06 [ 0.60 - 0.90 ] cm AV Peak PG 10mmHg LA Dimension MM 4.68 [ 2.70 - 3.80 ] cm AV VTI 25.31cm AoR Diam MM 2.99 [ 2.60 - 3.70 ] cm LVOT Diam 1.98[ 1.70 - 2.10 ] cm LA Volume Index 30 [ 16 - 28 ] cc/m2 LVOT Peak Juan Francisco 0.98[ 0.70 - 1.10 ] m/s LVOT VTI 20.03cm MV E Peak Juan Francisco 0.82[ 0.60 - 1.30 ] m/s MV A Peak Juan Francisco 0.34[ 0.40 - 0.80 ] m/s MV Decel Time 151[ 150 - 200 ] msec TR Peak Juan Francisco 2.49m/s TR Peak PG 25mmHg Lateral E` 0.11cm/sec E` 0.08cm/sec E/E` 7 - Findings: Interpretation Site: Exam was interpreted at [facility]. Left Ventricle: Normal left ventricular size. Mild concentric left ventricularhypertrophy. Left ventricular systolic function at the lower limit of normal. Paradoxicalseptal motion consistent with IVCD or bundle branch block. Indeterminate diastolicfunction. Ejection fraction is visually estimated at 50-55 %. Global Longitudinal Strain is-10 %. GLS is abnormal. Right Ventricle: Normal right ventricular size. Mild right ventricular hypokinesis. Left Atrium: There is mild enlargement of left atrium. Right Atrium: The right atrium is normal in size. Atrial Septum: Thin and hypermobile atrial septum. Mitral Valve: Mitral valve leaflets appear mildly thickened. Mild mitral annularcalcification. There is straightening of the anterior and posterior mitral valve leafletswithout clear prolapse. Mild mitral valve regurgitation. Aortic Valve: Normal appearance of the aortic valve. No evidence of hemodynamicallysignificant aortic stenosis by Doppler. Aortic cusps appear mildly sclerotic. Trileafletaortic valve. No aortic regurgitation. Tricuspid Valve: Normal appearance of the tricuspid valve. Normal right ventricularsystolic pressure. Mild tricuspid regurgitation. Pulmonic Valve: Normal appearance of the pulmonic valve. Trivial regurgitation in thepulmonic valve. Pericardium: Normal pericardium with no significant pericardial effusion. Trivialpericardial effusion. Aorta: Normal aortic root. No aortic root dilation. Mild aortic rootcalcification. IVC: Normal size and normal respiratory collapse consistent with normal rightatrial pressure (<5 mmHg). Conclusions: Normal left ventricular size. Mild concentric left ventricularhypertrophy. Left ventricular systolic function at the lower limit of normal. Paradoxicalseptal motion consistent with IVCD or bundle branch block. Indeterminate diastolicfunction. Ejection fraction is visually estimated at 50-55 %. Global Longitudinal Strain is-10 %. GLS is abnormal. Normal right ventricular size. Mild right ventricular hypokinesis. Mitral valve leaflets appear mildly thickened. Mild mitral annularcalcification. There is straightening of the anterior and posterior mitral valve leafletswithout clear prolapse. Mild mitral valve regurgitation. Atrial fibrillation. Electronically Signed By: Geetha Reyes MD 2023-07-26 18:25:24 CDT CC: CC: Yolanda Washington NP CV ECHO PROCEDURES Final Result documented in this encounter Visit Diagnoses Diagnosis HFrEF (heart failure with reduced ejection fraction) (CMS/HCC) (HCC)- Primary Dilated cardiomyopathy (CMS/HCC) (HCC) Other primary cardiomyopathies Longstanding persistent atrial fibrillation (CMS/HCC) (HCC) HFrEF (heart failure with reduced ejection fraction) (CMS/HCC) (HCC) documented in this encounter Discontinued Medications Medication Sig Discontinue Reason Start Date End Da te predniSONE (DELTASONE) 10 mg tablet Take 4 tabs (40 mg) po every day for 5 days, then 3 tabs (30 mg) po every day for 5 days, then 2 tabs (20 mg) po every day for 5 days, then 1 tab (10 mg) po every day for 5 days. Alternate therapy 03/20/2023 04/26/2023 sulfamethoxazole-trimetho prim (Bactrim DS) 800-160 mg per tablet Take one po on Mon, Wed, Sat Therapy completed 01/28/2023 04/26/2023 documented as of this encounter Care Teams Retail Equipment Associate Relationship Specialty Start Date End Date Timothy Donis MD PCP - General Family Practice 04/12/23 Ni Armas, RN Registered Nurse Pulmonary Disease 01/11/23 documented as of this encounter
--- OUTSIDE RECORDS SUMMARY | 2024-11-15 05:54 | XMS_ITS | Encounter Summary ---
Author Organization [facility] Healthcare Address [address] [place] [address] Care Team Providers Care Ordnance Keeper Name Role Phone Ni Armas RN Unavailable [place] Timothy Land MD Primary Care Provider [phone] Reason for Visit * Reason Comments Follow-up 2 mo f/u Cardiomyopathy Atrial Fibrillation Hypertension Encounter Details Date Type Department Care Team (Latest Contact Info) Description 10/01/2023 12:00 PM AIX ARCHITECT Office Visit [facility] Cardiology at [address] [place] [address] Myles Reyes MD [address] [place] [id number] HFrEF (heart failure with reduced ejection fraction) (CMS/HCC) (HCC) (Primary Dx); Dilated cardiomyopathy (CMS/HCC) (HCC); Longstanding persistent atrial fibrillation (CMS/HCC) (HCC); Chronic respiratory failure with hypoxia (CMS/HCC) (HCC); ILD (interstitial lung disease) (CMS/HCC) (HCC); STARR on CPAP; Chronic anticoagulation Social History Tobacco Use Types Packs/Day Years Used Date Smoking Tobacco: Never Smokeless Tobacco: Never Alcohol Use Standard Drinks/Week Comments Not Currently 0 (1 standard drink = 0.6 oz pur e alcohol) Comments Unknown Sex and Gender Information Value Date Recorded Sex Assigned at Not on file Legal Sex Female 1:14 AM AIX ARCHITECT Gender Identity Female 05/04/2020 3:33 PM CDT Sexual Orientation Not on file 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 Not on file Not on file Not on file documented as of this encounter Last Filed Vital Signs Vital Sign Reading Time Taken Comments Blood Pressure 102/60 10/01/2023 12:02 PM AIX ARCHITECT Pulse 58 10/01/2023 12:02 PM AIX ARCHITECT Temperature - - Respiratory Rate - - Oxygen Saturation 92% 10/01/2023 12:02 PM AIX ARCHITECT Inhaled Oxygen Concentration - - Weight 104.3 kg (230 lb) 10/01/2023 12:02 PM AIX ARCHITECT per pt Height 157.5 cm (5' 2 ) 10/01/2023 12:02 PM AIX ARCHITECT Body Mass Index 42.07 10/01/2023 12:02 PM AIX ARCHITECT documented in this encounter Progress Notes * Myles Reyes MD - 10/01/2023 12:00 PM CST [facility] DATE OF VISIT: 10/01/2023 CHIEF COMPLAINT Chief Complaint Patient presents with Follow-up 2 mo f/u Cardiomyopathy Atrial Fibrillation Hypertension ASSESSMENT Diagnoses and all orders for this visit: HFrEF (heart failure with reduced ejection fraction) (CMS/HCC) (HCC) (Primary) Dilated cardiomyopathy (CMS/HCC) (HCC) Longstanding persistent atrial fibrillation (CMS/HCC) (HCC) Chronic respiratory failure with hypoxia (CMS/HCC) (HCC) ILD (interstitial lung disease) (CMS/HCC) (HCC) STARR on CPAP Chronic anticoagulation PLAN/RECOMMENDATIONS 1. AFib historically paroxysmal persistent of late heart rate not ideally controlled. She is also had intermittent atrial flutter with variable AV block. Continue current medical therapy and systemicanticoagulation for stroke risk reduction. CHADS2 Vasc score 3. -Continue Eliquis 5 mg BID. Monitor for bleeding. If falls, head injury or bleeding go to ER immediately. Monitor renal function at least on yearly basis. -continue Toprol XL 150 mg daily, Diltiazem 300 mg daily. Amiodarone is not an option given advancing underlying interstitial lung disease and chronic hypoxic respiratory failure. -patient is doing fairly well at this time with regards to her AFib control. 2. BP controlled goal <140/90mmHg. Monitor BP on routine basis. Call with readings. Continue consistent cardiovascular exercise, weight loss, medication compliance, and low-sodium diet. -Continue Toprol XL 150 mg daily. Continue Entresto 24/26 mg twice daily for now. Discussed increase to 49/51mg BID but she is doing well and would prefer not to do so at this time as well as her daughter. Furthermore, BP relatively hypotensive at present. 3. Reasonably compensated, chronic HFpEF historically now reduced LV function EF 20% by echocardiogram but during AFib with RVR NYHA class III sxs confounded by chronic hypoxic respiratory failure. CHF counseling performed. Follow daily weight, less than 2 g daily sodium intake, medication compliance. Call w/ wt gain >3lb in 24 hrs or worsening edema and/or FALCON. -Echo 04/05/2023 at [facility] EF 25-30% during AFib with RVR [id number] MR moderate pulmonary hypertension RVSP 50 mm Hg. -07/2023 Echo personally reviewed and discussed EF improved 50-55% mild RV hypokinesis, mild left atrial enlargement mild MR/TR, no , PASP 30 mmHg. -Cont Lasix 40mg BID. -she reports a weight of 230lb on her scale and admits her weight has gone up somewhat and she was not eating well now that her appetite has improved but she denies significant increase in shortness of breath, lower extremity edema or orthopnea. She will continue to monitor closely report any new concerns or unexpected weight gain. 4. She may proceed with suprapubic catheter placement as discussed. Resume systemic anticoagulationas soon as possible postoperatively preferably within 24 hours. 5. Follow-up with pulmonology and Rheumatology as scheduled. Compliance with CPA for tx of STARR. Shewill continue on hydroxychloroquine, methotrexate and prednisone as directed 6. Lipids personally reviewed 12/27/22 LDL 42, well controlled goal LDL< 100. Continue statin therapy and lifestyle modification. Pravastatin 80mg qhs. 7. Lifestyle modification counseling performed. Encouraged consistent weight loss, exercise, reduction in caloric intake. 8. Follow up with GI with regards to recent diagnosis of celiac disease. Encouraged him to follow recommendations as provided. Over 50% of this visit counseling CHF, HTN, lipids, medications, lifestyle modification. Follow up in the office in 3 months or sooner as needed. Thank you for allowing me the privilege of participating in the care this very pleasant patient. Please do not hesitate to contact me with any additional questions or concerns. NIRANJAN Ayanna Cash is a 73 y.o. female with a PMHx of rheumatoid arthritis, hypertension, hyperlipidemia, morbid obesity, STARR, diastolic heart failure, atrial fibrillation, and interstitial lung disease. She was on amiodarone and digoxin in the past , she had also had a successful cardioversion in the past. [place] in September 2019 showed EF 60%. She was previously followed by Dr. Parker. Her primary grade teacher is Dr. Norman. Her spool worker is Dr. Kobe Gerard. She presented to [facility] on 01/01/2020 with complaint of worsening shortness of breath. Dr. Reyes met her in consultation. She was diuresed, improved and discharged to home. However, she presented back to the hospital on 01/27/2020 wi th weakness and was found to be in [...] CPAP machine nightly, but sometimes remove sit custodial through the night. PCP follows her INRs [...] trying to lose some weight, following a [id number] Na restriction. Now using a foot pedal [...] used to it. No palps. No dizziness. Colton meds. Still seeing Rheum, she c/o legs and hip pain told was OA. Toprol XKL 125mg daily along with warfarin. Patient is accompanied by her daughter who also agreed she is doing better overall. 09/29/21 CAT visit-On 09/21/21 she went to [facility] ER for complaint of worsening shortnessof breath. [...] Norman has referred her to pulmonology at [facility] and that appointment is next month. 12-lead ECG performed in the office today was independently interpreted by me and showed sinus rhythm, normal axis and normal intervals, rate 88 beats per minute 11/02/21 Says not feeling any better at all after admission to [facility] with influenza B hurts to doeverything takes a lot out of her, no energy or appetite, SOB same as before. Attributes a lot to being off her pain meds including Hydroxychloroquine and Methotrexate for a while while in hospital. On CPAP. Not much edema though. Pain is mostly in shoulders and hands. Uses heating pad and Tylenol.Saw PCP recently. Sees Pulm at [facility] tomorrow. Using 2L O2 at rest 4L O2 with activity. She notes her O2 drops to 85% on 4L still. Rheum adjusting meds on prednisone for 1 week without noted improvement thus far. Has PT coming into home. 04/17/22 Admitted to [facility] with ILD and CHF admits she hasn't [...] CAT visit - she was hospitalized at [facility] 05/25-05/26 for pulmonary edema, tested positive for COVID, treated for rib fractures due to a fall 2 days prior. Then hospitalized at [facility] 05/27-06/07for treatment of pneumonia (bacterial verses COVID) / COPD exacerbation, diastolic heart failure exacerbation. She became bradycardic on telemetry (heart rate 30-40 with pause up to 3 seconds) so remdesivir was stopped and metoprolol was stopped. IV furosemide caused MIKE so she was discharged without furosemide but it has since been restarted in [facility] (currently she is at [facility] in [place]). When she is doing physical therapy her [...] fine, trying to follow her diet and colton meds. On Orencia trying to reduce prednisone now 2.5mg daily controlling her pain. Feels fairly well. LAsix 60mg daily. Followed by Renal and Rheum. Colton CPAP quite well. Sometimes appetite not that great occ diarrhea or constipation, sometime nocturia no UTI they state per recnet Renal visit. Here with daughter. 04/12/23 recurrent admissions for cough, CHF, AFib with RVR and atrial flutter with RVR. Went to [facility] after February admission then back to [facility] in March after and she feels diet at [facility] is to fault and salty. Cough is incessant at [facility]. Has blood in stool reported Elisa recommended discharge yesterday on Dilt 300mg daily and Toprol XL 150mg Lasix 40mg BID Echo with EF 27% but in AF with RVR. Extensively reviewed [facility] records. Patient's daughter veryconcerned about her [...] them. Today she had an appointment at [facility] with her primary grade teacher so she has not been able to elevate the legs at all and therefore there more swollen. She has a history of frequent UTIs. 07/30/23 Breathing still an issue some days better than others, but FALCON persists has to rest after walking short distances. Echo done EF 50-55%. Remains on Lasix 80mg daily Entresto, Toprol XL 150mg daily. Has endoscopy upcoming. On Eliquis 5mg BID. Not using CPAP due to urination and changing O2. She is here with her daughter once again. She is tolerating her medical regimen and feels better overall. 10/01/23 Feeling better she says not as SOB or elevated HR but not walking as much has a chronic catheter. Having surgery for suprapubic catheter. Off Eliquis for this since Saturday. Dx with Celiac disease. Saw Rheum today more labs upcoming and workup. Losing a lot of weight due to Celiac. She is eating more and weight up, watching salt. MEDICAL HISTORY Past Medical History: Diagnosis Date Atrial fibrillation (CMS/HCC) ([facility]) Cataracts, bilateral CHF (congestive heart failure) (CMS/HCC) ([facility]) Chronic kidney disease 2021 Depression 12/2021 Diastolic dysfunction Diverticulitis H/O section Heart disease Hypertension Kidney stone 2021 Obesity Sleep apnea Thyroid disease Wears dentures Social History Tobacco Use Smoking status: Never Smoker Smokeless tobacco: Never Used Substance Use Topics Alcohol use: Not Currently Alcohol/week: 0.0 standard drinks Drug use: Never Family History Problem Relation Age of Onset Hypertension Mother Blood Clot Father Clotting disorder Father Rheum arthritis Father No Known Problems Sister No Known Problems Sister MEDICATIONS HOME MEDICATIONS : abatacept (Orencia ClickJect) 125 mg/mL auto-injector acetaminophen 325 mg capsule alendronate (FOSAMAX) 70 mg tablet calcium carbonate-vit D3-min 600 mg calcium- 400 unit tablet cholecalciferol (VITAMIN D-3) 2000 unit tablet cholestyramine light 4 gram packet cyanocobalamin (Vitamin B-12) 1,000 mcg tablet dilTIAZem CD (CARDIZEM CD) [address] mg [address] (CYMBALTA) 20 mg capsule Eliquis 5 mg tablet furosemide (LASIX) 40 mg tablet hydroxychloroquine (PLAQUENIL) 200 mg tablet levothyroxine (SYNTHROID) 112 mcg tablet metoprolol XL (TOPROL-XL) 100 mg 24 hr tablet metoprolol XL (TOPROL-XL) 50 mg extended release tablet pantoprazole DR (PROTONIX) 40 mg EC tablet potassium chloride ER (KLOR-CON) 20 mEq CR tablet pravastatin (PRAVACHOL) 80 mg tablet predniSONE (DELTASONE) 2.5 mg tablet sacubitriL-valsartan (ENTRESTO) 24-26 mg tablet traMADoL (ULTRAM) 50 mg tablet ALLERGIES No Known Allergies REVIEW OF SYSTEMS Review of Systems Constitutional: Positive for malaise/fatigue and weight loss. Negative for decreased appetite, diaphoresis, fever, night sweats and weight gain. HENT: Negative for hearing loss and nosebleeds. Eyes: Negative for blurred vision and pain. Cardiovascular: Positive for dyspnea on exertion and leg swelling. Negative for chest pain, claudication, irregular heartbeat, near-syncope, orthopnea, palpitations and syncope. Respiratory: Negative for cough, hemoptysis, shortness of breath, snoring and wheezing. Endocrine: Negative for cold intolerance and heat intolerance. Hematologic/Lymphatic: Negative for bleeding problem. Does not bruise/bleed easily. Skin: Negative for color change, itching, rash and suspicious lesions. Musculoskeletal: Positive for arthritis, joint pain, muscle weakness and myalgias. Negative for falls. Gastrointestinal: Negative for abdominal pain, heartburn, hematemesis, melena and nausea. Genitourinary: Negative for dysuria, hematuria and nocturia. Neurological: Negative for excessive daytime sleepiness, dizziness, focal weakness, headaches, light-headedness, loss of balance and weakness. Psychiatric/Behavioral: Negative for altered mental status, depression and memory loss. The patientis not nervous/anxious. Allergic/Immunologic: Negative for environmental allergies. All other systems reviewed and are negative. PHYSICAL EXAM Vitals BP 102/60 (BP Location: Right arm, Patient Position: Sitting) Pulse 58 Ht 157.5 cm (5' 2 ) Wt 104.3 kg (230 lb) SpO2 92% BMI 42.07 kg/m?? Weight: 104.3 kg (230 lb) (per pt) Height: 157.5 cm (5' 2 ) Body mass index is 42.07 kg/m??. Physical Exam Vitals reviewed. Constitutional: General: She is not in acute distress. Appearance: Normal appearance. She is well-developed. She is obese. She is not diaphoretic. Comments: O2 via nasal canula HENT: Head: Normocephalic and atraumatic. Right Ear: External ear normal. Left Ear: External ear normal. Nose: Nose normal. Mouth/Throat: Mouth: Mucous membranes are moist. Dentition: Normal dentition. Eyes: General: Lids are normal. No scleral icterus. Extraocular Movements: Extraocular movements intact. Conjunctiva/sclera: Conjunctivae normal. Neck: Thyroid: No thyromegaly. Vascular: Normal carotid pulses. No carotid bruit, hepatojugular reflux or JVD. Trachea: No tracheal deviation. Cardiovascular: Rate and Rhythm: Normal rate. Rhythm regularly irregular. Pulses: Normal pulses and intact distal pulses. No decreased pulses. Heart sounds: Normal heart sounds, S1 normal and S2 normal. Heart sounds not distant. No murmur heard. No friction rub. No gallop. No S3 or S4 sounds. Pulmonary: Effort: Pulmonary effort is normal. No respiratory distress. Breath sounds: Normal breath sounds. No wheezing or rales. Chest: Chest wall: No tenderness. Abdominal: General: Bowel sounds are normal. There is no distension. Palpations: Abdomen is soft. There is no mass. Tenderness: There is no abdominal tenderness. There is no guarding or rebound. Comments: Morbidly obese Musculoskeletal: General: No tenderness or deformity. Normal range of motion. Cervical back: Normal range of motion and neck supple. Right lower leg: Edema present. Left lower leg: Edema present. Comments: 1+ edema bilateral L>R In wheelchair Lymphadenopathy: Cervical: No cervical adenopathy. Skin: General: Skin is warm and dry. Coloration: Skin is not pale. Findings: No ecchymosis, erythema, petechiae or rash. Nails: There is no clubbing. Neurological: General: No focal deficit present. Mental Status: She is alert and oriented to person, place, and time. Mental status is at baseline. Cranial Nerves: No cranial nerve deficit. Motor: No abnormal muscle tone. Coordination: Coordination normal. Psychiatric: Mood and Affect: Mood normal. Speech: Speech normal. Behavior: Behavior normal. Behavior is cooperative. Thought Content: Thought content normal. Judgment: Judgment normal. LABS AND OTHER DIAGNOSTIC TESTS Results for orders placed or performed during the hospital encounter of 09/19/23 Pulmonary Function Test - Result Value Ref Range FVC PRE 1.01 L FVC %PRE PRED 40 % FEV1 PRE 0.86 L FEV1 %PRE PRED 44 % FEV1/FVC PRE 84.9 % 09/29/2021 2D echocardiogram: [facility] EF 55-60% mild LVH, mild LVE, trivial MR, normal pulmonary pressures 10/04/2021 48 hour Holter monitor: Interpretation Summary AMBULATORY SOLE SPLITTER REPORT Patient Name: Ayanna Cash Date of : 1950 Requesting Physician: Dr. Reyes Date of interpretation: 10/04/21 Type of monitor : 48 hour Holter monitor Date of the study/Enrollment period: 09/29/2021 Indication: Paroxysmal atrial fibrillation Quality of the study: Fair with occasional artifact Interpretation: Predominant underlying rhythm is sinus rhythm, heart rate ranges between 49 beats per minute to 131 beats per minute, average heart 70 beats per minute. Supraventricular ectopy was seen in the form of isolated PACs and atrial runs with a burden of 0.1% for the duration of the study.Occasional ventricular ectopy was seen in the form of isolated PVCs, couplets, trigeminy with a burden of 1.07% for the duration of the study. No sustained atrial or ventricular arrhythmias were noted. No significant bradyarrhythmias or heart blocks or significant pauses were noted. Patient's symptoms of shortness of breath correlated with sinus rhythm, atrial run and sinus tachycardia. Conclusions: Predominant underlying rhythm is sinus rhythm, average heart rate 70 beats per minute. Occasional supraventricular ectopy was seen in the form of PACs, atrial runs with a burden of 0.1% for the duration of the study; occasional ventricular ectopy in the form of PVCs, couplets, trigeminy with a burden of 1.07%. No other significant arrhythmias or heart blocks were noted. Patient's reported shortness of breath correlated with sinus rhythm, sinus tachycardia, atrial run. Clinical correlation is recommended. 12/29/21 2D Echo ([facility]): EF 55-60% mild LVH moderate left atrial enlargement no MR unable to estimate PA systolic pressure. No . 07/11/22 Interpretation Summary AMBULATORY SOLE SPLITTER REPORT Patient Name: Ayanna Cash Date of : 1950 Requesting Physician: Yolanda Soto NP Date of interpretation: 07/11/22 Type of monitor : 14 day monitor Date of the study/Enrollment period: June 22, 2022 to July 05, 2022 Indication: Atrial fibrillation Quality of the study: Acceptable Interpretation: Underlying rhythm is persistent atrial fibrillation and intermittent atrial flutter with controlledaverage heart rate of 75 beats per minute with a minimum of 37 beats per minute occurring June 25 at 2:04 a.m. in association with a 2.2nd pause and a maximum 169 beats per minute occurring at 9:18 a.m.. Infrequent PVCs versus aberrant conduction totaling 2287. Premature atrial contractions were reported which is nonsensical given persistent atrial fibrillation and/or atrial flutter. Predominant underlying atrial fibrillation with intermittent atrial flutter with variable AV block. Longest pause 3.2 seconds occurring July 02 at 11:05 p.m.. Patient had 39 patient triggered symptom events in conjunction with this study. Patient with shortness of breath, heart racing, chest pain predominantly associated with atrial fibrillation and/or atrial flutter with rapid ventricular response occasional with atrial fibrillation with controlled heart rate. 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 Sinus rhythm was not appreciated. Conclusions: Persistent atrial fibrillation with intermittent atrial flutter with variable AV block controlled average heart rate with frequent episodes of rapid ventricular response which majority of patient's symptoms were associated with tachycardia. Sinus rhythm was not appreciated No pathologic or prolonged pauses or high-grade AV blocks identified. 07/26/23 2D echo: Conclusions: Normal left ventricular size. Mild concentric [...] prolapse. Mild mitral valve regurgitation. Atrial fibrillation. Personally reviewed EKG, electronic medical record, [facility] records, and bloodwork/lipids. Geetha Reyes MD, [facility] This note is dictated and transcribed using Seamless Direct Software. Cribber variancesmay occur. Despite proofreading, typographical errors may occur. ARCHITECT ARCHITECT documented in this encounter Plan of Treatment Not on file documented as of this encounter Visit Diagnoses Diagnosis HFrEF (heart failure with reduced ejection fraction) (CMS/HCC) (HCC)- Primary Dilated cardiomyopathy (CMS/HCC) (HCC) Other primary cardiomyopathies Longstanding persistent atrial fibrillation (CMS/HCC) (HCC) Chronic respiratory failure with hypoxia (CMS/HCC) (HCC) ILD (interstitial lung disease) (CMS/HCC) (HCC) Postinflammatory pulmonary fibrosis STARR on CPAP Chronic anticoagulation Encounter for long-term (current) use of anticoagulants documented in this encounter Care Teams Ordnance Keeper Relationship Specialty Start Date End Date Timothy Donis MD PCP - General Family Practice 04/12/23 Ni Armas, RN Registered Nurse Pulmonary Disease 01/11/23 documented as of this encounter
--- OUTSIDE RECORDS SUMMARY | 2024-11-15 05:54 | XMS_ITS | Encounter Summary ---
Author Organization [facility] Address [address] [place] [address] Phone Care Team Providers Care Parquetry Floor Layer Name Role Phone Ni Armas RN Unavailable [place] Timothy Land MD Primary Care Provider [phone] Encounter Details Date Type Department Care Team (Late st Contact Info) Description 09/16/2023 Orders Only [facility] [address] [facility] [address] [place] [address] [place] [id number] Unknown, Notinfile Social History Tobacco Use Types Packs/Day Years Used Date Smoking Tobacco: Never Smokeless Tobacco: Never Alcohol Use Standard Drinks/Week Comments Not Currently 0 (1 standard drink = 0.6 oz pur e alcohol) Comments Unknown Sex and Gender Information Value Date Recorded Sex Assigned at Not on file Legal Sex Female 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 AND 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 Gender Identity Female 05/04/2020 3:33 PM CDT Sexual Orientation Not on file 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 Not on file Not on file Not on file documented as of this encounter Plan of Treatment Not on file documented as of this encounter Procedures Procedure Name Priority Date/Time Associated Diagnosis Comments EGD Routine 09/06/2023 10:08 AM CDT documented in this encounter Results * EGD -[facility] (All Locations) (09/06/2023 10:08 AM CDT) Anatomical Region Laterality Modality Other us Notinfile Unknown GI PROCEDURE ORDERABLES Edited Result - Final documented in this encounter Visit Diagnoses Not on filedocumented in this encounter Care Teams Parquetry Floor Layer Relationship Specialty Start Date End Date Timothy Donis MD PCP - General Family Practice 04/12/23 Ni Armas, RN Registered Nurse Pulmonary Disease 01/11/23 documented as of this encounter
--- OUTSIDE RECORDS SUMMARY | 2024-11-15 05:54 | XMS_ITS | Encounter Summary ---
Author Organization [facility] Address [address] [facility] [address] [place] [address] Phone Care Team Providers Care Operator Command Support Systems Name Role Phone Ni Armas RN Unavailable Lizette Timothy Land MD Primary Care Provider [phone] Reason for Referral * Procedure (Routine) - Closed Specialty Diagnoses / Procedures Referred By Contac t Referred To Contact Diagnoses ILD (interstitial lung disease) (CMS/HCC) (HCC) Procedures Pulmonary Function Test -[facility] Adult PFT Lab- CAM-8D; Spirometry, Oxygen Assessment Titration Denita Correa MD [address] [place] [address] Phone: tel: fax: Referral ID Status Reason Start Date Expiration Date Visits Re quested Visits Authorized [id number] Closed 03/26/2024 04/25/2025 1 1 Encounter Details Date Type Department Care Team (Late st Contact Info) Description 03/26/2024 2:00 PM CDT Office Visit [facility] Pulmonary [address] [facility] [address] 8th [place] [address] [place] [address] Denita Correa MD [address] [place] [address] ILD (interstitial lung disease) (CMS/HCC) (HCC) (Primary Dx); HFrEF (heart failure with reduced ejection fraction) ([facility] ([facility]); Longstanding persistent atrial fibrillation ([facility] ([facility]); Morbid obesity with BMI of 45.0-49.9, adult ([facility]) ([facility]); Rheumatoid arthritis, involving unspecified site, unspecified whether rheumatoid factor present ([facility]) Social History Tobacco Use Types Packs/Day Years Used Date Smoking Tobacco: Never Smokeless Tobacco: Never Tobacco Cessation:Counseling Given: No Alcohol Use Standard Drinks/Week Comments Not Currently 0 (1 standard drink = 0.6 oz pur e alcohol) Comments Unknown Sex and Gender Information Value Date Recorded Sex Assigned at Not on file Legal Sex Female 1:14 AM GENERAL MEDICAL PRACTITIONER Gender Identity Female 05/04/2020 3:33 PM CDT Sexual Orientation Not on file 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 Not on file Not on file documented as of this encounter Last Filed Vital Signs Vital Sign Reading Time Taken Comments Blood Pressure 113/75 03/26/2024 1:52 PM CDT Pulse 59 03/26/2024 1:52 PM CDT Temperature 36.6 ??C (97.8 ??F) 03/26/2024 1:52 PM CD T Respiratory Rate - - Oxygen Saturation - - Inhaled Oxygen Concentration - - Weight 108.4 kg (239 lb) 03/26/2024 1:52 PM CDT Height 157.5 cm (5' 2 ) 03/26/2024 1:52 PM CDT Body Mass Index 43.71 03/26/2024 1:52 PM CDT documented in this encounter Patient Instructions * Patient Instructions* Denita Correa MD - 03/26/2024 2:00 PM CDT Start exercising on bike 2-5 minutes a day - monitor O2 saturations Used pursed lip breathing. Contact the nurse coordinator with questions - BILLY Dan [phone]. documented in this encounter Progress Notes * Denita Correa MD - 03/26/2024 2:00 PM CDT PULMONARY MEDICINE CLINIC VISIT Ayanna Cash 1950 03/26/2024 PROBLEM LIST: Rheumatoid arthritis, seropositive, previously on methotrexate, A. Current therapy: abatacept, HCQ and pred 2.5 daily Hypertension. Congestive heart failure. Afib Obstructive sleep apnea on CPAP. History of bilateral knee replacements. History of frequent urinary tract infections. History of influenza A infection in September 2021, requiring hospitalization. History of recurrent DVT and PE, on lifelong anticoagulation with Eliquis. History of COVID-19 infection, May 2022, and required hospitalization at that time for a mechanical fall with rib fractures and heart failure exacerbation. DJD of bilateral hips Osteopenia Status post suprapubic catheter INTERVAL HISTORY: Patient reports that her breathing continues to worsen. Most days she will get upand use a stair lift to go downstairs. She then will walk a short distance the living room and staythere all day. She will use a stair lift to get back up to her room. However her daughter notes that at the end of the day she will have to help her mother lift her legs into bed because her mother's too exhausted to do it. She is using oxygen at 4 liters/minute. She will note she sometimes desaturates down to 80% when moving around on the oxygen. She denies any coughing, but has occasional wheezing. She does sleep elevated but that has remained otherwise stable level. She has restarted her Orencia for rheumatoid arthritis and continues with that. She is still not using CPAP. MEDS: HOME MEDICATIONS : abatacept (Orencia ClickJect) 125 [...] mg tablet traMADoL (ULTRAM) 50 mg tablet ROS: Her weight is up 5 lb. She reports chronic lower extremity edema. No fevers or chills. PHYSICAL EXAM: Vitals BP 113/75 Pulse 59 Temp 36.6 ??C (97.8 ??F) Ht 157.5 cm (5' 2 ) Wt 108.4 kg (239 lb) BMI 43.71 kg/m?? GEN: No acute distress HEENT: Mallampati class 3 airway, no oropharyngeal lesions, no cervical lymphadenopathy PUL: Bibasilar inspiratory crackles CV: S1, S2, no murmurs rubs or gallops ABD: Positive bowel sounds, soft, nontender, nondistended EXT: No clubbing, no cyanosis, trace edema DATA: Spirometry: Date FVC,% pred FEV1, % pred FEV1/FVC TLC, % pred DLCO, % pred 02/2024 0.98, 39% 0.81, 42% 83% 08/2023 1.01, 40% 0.86, 44% 04/2023 0.95 0.79 12/2022 0.89, 38% 0.86, 43% 88% 05/2022 1.40, 55% 1.21, 62% 87% 02/2022 1.26, 49% 1.10, 55% 87% 10/2021 1.22, 47% 1.11, 56% 91% 2.63, 55% 45% Oxygen assessment from today: Resting room air saturation was 96%. The patient walked a total of 30feet. With walking, room air saturation trixie was 87%. The patient required 2 lpm oxygen with exertion to maintain saturation > 88-90%. Heart rate was 55 at rest and 92 with exertion. Blood pressure remained stable. FEV1 remained stable. IMPRESSION: Patient with a history of rheumatoid arthritis associated interstitial lung disease. Her medical situation is complicated by heart failure and deconditioning in the setting of morbid obesity. Her spirometry is stable. PLAN: Discussed with the patient that I would not add any new medications at this time. Encouraged her to start exercising. I offered a referral to pulmonary rehabilitation but she declined. I advised her to use her stationary bike for approximately 5 minutes a day and to slowly add on additional time as tolerated. I recommended that she monitor her saturations to make sure they stay above 90%. I also instructed her on pursed lip breathing. I discussed with patient possible referral to palliative care to help with symptom management logistical issues at home. However she declined. Will plan to see the patient back in 6 months with repeat spirometry and oxygen assessment. She wasprovided with phone contact information should she have a change in her symptoms prior to that. Denita Correa MD resident assistant cna documented in this encounter Plan of Treatment Not on file documented as of this encounter Results * Pulmonary Function Test - (10/08/2024 11:48 AM GENERAL MEDICAL PRACTITIONER) FVC PRE 0.90 L [facility] FVC %PRE PRED 36 % [facility] FEV1 PRE 0.76 L [facility] FEV1 %PRE PRED 40 % [facility] FEV1/FVC PRE 84.5 % [facility] Anatomical Region Laterality Modality PFT 10/08/2024 11:2 5 AM GENERAL MEDICAL PRACTITIONER Narrative 10/08/2024 7:31 PM GENERAL MEDICAL PRACTITIONER Table formatting from the original result was not included. [facility] Division of Pulmonary & Critical Care Medicine [address] [place] [address]; [address] [facility]; [place], [place] ??[address]; [phone] Pulmonary Function Laboratory Pulmonary Stress Test Simple/Oxygen [...] with the written final report. PFT performed at:->[facility] Adult PFT Lab- CAM-8D Procedure:->Spirometry Procedure:->Oxygen Assessment [...] and %HbO2 is age dependent. However, the [facility] Pulmonary Function Laboratory defines hypoxemia as a PaO2 <56 mm Hg or a %HbO2 <89%. Denita Correa MD PFT ORDERABLES Final Result documented in this encounter Visit Diagnoses Diagnosis ILD (interstitial lung disease) ([facility]) ([facility])- Primary Postinflammatory pulmonary fibrosis HFrEF (heart failure with reduced ejection fraction) ([facility]) ([facility]) Longstanding persistent atrial fibrillation ([facility]) ([facility]) Morbid obesity with BMI of 45.0-49.9, adult ([facility] ([facility]) Rheumatoid arthritis, involving unspecified site, unspecified whether rheumatoid factor present ([facility]) ILD (interstitial lung disease) ([facility] ([facility]) Postinflammatory pulmonary fibrosis documented in this encounter Discontinued Medications Medication Sig Discontinue Reason Start Date End Da te predniSONE (DELTASONE) 5 mg tablet Start 01/06/24: Take 4 tabs/day x 4 days, 3 tabs/day x 4 days, 2 tabs/day x 4 days, and then 1 tab/day x 4 days. 01/01/2024 03/26/2024 documented as of this encounter Care Teams Operator Command Support Systems Relationship Specialty Start Date End Date Timothy Donis MD PCP - General Family Practice 04/12/23 Ni Armas, BILLY Registered Nurse Pulmonary Disease 01/11/23 documented as of this encounter
--- OUTSIDE RECORDS SUMMARY | 2024-11-15 05:54 | XMS_ITS | Encounter Summary ---
Author Organization [facility] Address [address] [place] [address] Phone Care Team Providers Care Sheet Finisher Name Role Phone Ni Armas RN Unavailable Lizette Timothy Land MD Primary Care Provider [phone] Encounter Details Date Type Department Care Team (Late st Contact Info) Description 05/05/2024 8:20 AM CDT Office Visit [facility] Rheumatology [facility] 5th [place] [address] [place] [id number] Sandra Bauman MD [address] [facility] [address] [place] [address] 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); Arthropathy, unspecified Social History Tobacco Use Types Packs/Day Years Used Date Smoking Tobacco: Never Smokeless Tobacco: Never Tobacco Cessation:Counseling Given: Not Answered Alcohol Use Standard Drinks/Week Comments Not Currently 0 (1 standard drink = 0.6 oz pur e alcohol) Comments Unknown Sex and Gender Information Value Date Recorded Sex Assigned at Not on file Legal Sex Female 1:14 AM SWING MANAGER Gender Identity Female 05/04/2020 3:33 PM CDT Sexual Orientation Not on file 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 Not on file Not on file documented as of this encounter Last Filed Vital Signs Vital Sign Reading Time Taken Comments Blood Pressure 124/59 05/05/2024 8:14 AM CDT Pulse 60 05/05/2024 8:14 AM CDT Temperature 36.6 ??C (97.8 ??F) 05/05/2024 8:14 AM CD T Respiratory Rate - - Oxygen Saturation 91% 05/05/2024 8:14 AM CDT Inhaled Oxygen Concentration - - Weight 111.1 kg (245 lb) 05/05/2024 8:14 AM CDT Height 157.5 cm (5' 2 ) 05/05/2024 8:14 AM CDT Body Mass Index 44.81 05/05/2024 8:14 AM CDT documented in this encounter Patient Instructions * Patient Instructions* Sandra Bauman MD - 05/05/2024 8:20 AM CDT Please discuss prophylactic antibiotics with urology. Please resume Orencia once the UTI has cleared up. documented in this encounter Progress Notes * Sandra Bauman MD - 05/05/2024 8:20 AM CDT Images from the original note were not included. RHEUMATOLOGY PROGRESS NOTE DIAGNOSES: Seropositive rheumatoid arthritis Interstitial lung disease DVT and PE Atrial fibrillation Congestive heart failure Sleep apnea Hypothyroidism DJD hips Osteopenia S/p suprapubic catheterization Chief Complaint: Follow up SUBJECTIVE: Last seen in clinic on 01/01/24. On therapy with subcutaneous Orencia, prednisone 2.5 mg a day and hydroxychloroquine 200 mg b.i.d.. Orencia on hold since March 27, 2024 due to recurrent UTi. Having recurrent UTIs, Has an indewelling catheter for severe urinary incontinence. Neurology considering long-term chronic prophylactic antibiotics. Bothered by left hip pain and left knee pain. X-ray of the showed significant hip showed degenerative changes. She had partial relief from steroid injection. He is now scheduled to see Orthopedic surgery on 05/21/2024. States that her legs jerk at night. She has not on any medications for RLS. Review of Systems: All systems negative except [...] mouth daily predniSONE (DELTASONE) 2.5 mg tablet Take 1 tablet (2.5 mg) by mouth daily 90 tablet 1 sacubitriL-valsartan (ENTRESTO) 24-26 mg tablet Take 1 tablet by mouth 2 (two) times a day 180 tablet 3 traMADoL (ULTRAM) 50 mg tablet Take 1 tablet (50 mg total) by mouth every 8 (eight) hours as neededfor pain 21 tablet 0 No current facility-administered medications for this visit. Objective: BP 124/59 (BP Location: Right arm, Patient Position: Sitting) Pulse 60 Temp 36.6 ??C (97.8 ??F)(Oral) Ht 157.5 cm (5' 2 ) Wt 111.1 kg (245 lb) SpO2 91% BMI 44.81 kg/m?? General: alert, cooperative, no acute distress, [...] 9.9 K/cumm Final Comment: Testing performed by: [address] [id number] 10/09/2023 10.3 (H) 3.8 - 9.9 K/cumm Final Comment: Testing performed by: [address] [id number] 06/02/2022 10.2 (H) 3.8 - 9.9 K/cumm Final White Blood Count Date Value Ref Range Status 02/27/2023 6.8 3.6 - 11.2 K/uL Final Comment: Repeated and Verified 08/24/2022 16.0 (H) 3.6 - 11.2 K/uL Final Hgb Date Value Ref Range Status 01/15/2024 9.5 (L) 11.9 - 15.5 g/dL Final Comment: Testing performed by: [address] [id number] 10/09/2023 9.7 (L) 11.9 - 15.5 g/dL Final Comment: Interpretive Data A reference range for this assay has not been established for patients with an unknown legal sex. Please refer to the laboratory test catalog for established sex-specific reference intervals. Current interpretive data was last revised on 2023. Testing performed by: [address] [id number] 06/02/2022 10.9 (L) 11.9 - 15.5 g/dL [...] Final MCV Date Value Ref Range Status 01/15/2024 98.4 (H) 81.3 - 96.4 fL Final Comment: Testing performed by: [address] [id number] 10/09/2023 103.2 (H) 81.3 - 96.4 fL Final Comment: Testing performed by: [address] [id number] 02/27/2023 94.9 80.0 - 97.6 fL Final 08/24/2022 96.2 80.0 - 97.6 fL Final 06/02/2022 97.2 (H) 81.3 - 96.4 fL Final SCRIBED Creatinine Date Value Ref Range Status 06/24/2023 1.20 (A) 0.7 - 1.0 mg/dl Final Creatinine Date Value Ref Range Status 01/15/2024 1.00 0.60 - 1.10 mg/dL Final Comment: Testing performed by: [address], [id number] 10/09/2023 1.10 0.60 - 1.10 mg/dL Final Comment: Testing performed by: [address] [id number] 02/27/2023 1.37 (H) 0.60 - 1.10 mg/dL [...] 145 mmol/L Final Comment: Testing performed by: [address] [id number] 10/09/2023 138 135 - 145 mmol/L Final Comment: Testing performed by: [address] [id number] 06/06/2022 140 135 - 145 mmol/L Final Potassium, pl Date Value Ref Range Status 01/15/2024 4.3 3.3 - 4.9 mmol/L Final Comment: Testing performed by: [address] [address] 10/09/2023 4.8 3.3 - 4.9 mmol/L Final Comment: HEMOLYZED: Hemolysis interferes with the above test. Testing performed by: [address] [id number] 06/06/2022 4.2 3.3 - 4.9 mmol/L Final AST Date Value Ref Range Status 01/15/2024 10 10 - 45 Units/L Final Comment: Testing performed by: [address] [id number] 10/09/2023 20 10 - 45 Units/L Final Comment: HEMOLYZED: Hemolysis interferes with the above test. Testing performed by: [address] [id number] 05/29/2022 26 10 - 45 Units/L Final AST (SGOT) Date Value Ref Range Status 02/27/2023 17 11 - 47 IU/L Final 08/24/2022 15 11 - 47 IU/L Final ALT Date Value Ref Range Status 01/15/2024 8 7 - 45 Units/L Final Comment: Testing performed by: [address] [id number] 10/09/2023 7 7 - 45 Units/L Final Comment: HEMOLYZED: Hemolysis interferes with the above test. Testing performed by: [address] [id number] 05/29/2022 21 7 - 45 Units/L Final ALT (SGPT) Date Value Ref Range Status 02/27/2023 9 6 - 53 IU/L Final Comment: Repeated and Verified 08/24/2022 11 6 - 53 IU/L Final Alk phos Date Value Ref Range Status 01/15/2024 33 (L) 40 - 130 Units/L Final Comment: Testing performed by: [address] [id number] 10/09/2023 46 40 - 130 Units/L Final Comment: Testing performed by: [address] [id number] 05/29/2022 100 40 - 130 Units/L Final Alk Phos, Total Date Value Ref Range Status 02/27/2023 40 35 - 129 IU/L Final 08/24/2022 56 35 - 129 IU/L Final Bilirubin, total Date Value Ref Range Status 01/15/2024 0.2 0.1 - 1.2 mg/dL Final Comment: Testing performed by: [address] [id number] 10/09/2023 0.2 0.1 - 1.2 mg/dL Final Comment: Testing performed by: [address] [id number] 05/29/2022 0.3 0.1 - 1.2 mg/dL Final [...] --Currently on HCQ 200 BID, abatacept injections weekly with several weeks of interupption, and prednisone 2.5 mg/day --continue the course [...] L Hip: --minimal response to steroid injection --plan for orthopedic evaluation in a few weeks 5. Other: --check ferritin levels to evaluate the RLS symptoms The patient is to return to clinic in 3 months. Be advised that voice recognition software has been used on this chart and inadvertent errors may occur. These may not represent a true interpretation of the dictation given. documented in this encounter Plan of Treatment Not on file documented as of this encounter Results * Erythrocyte sedimentation rate (05/05/2024 9:16 AM CDT) Erythrocyte sedimentation rate 28 1 - 30 mm/hr Blood 05/05/2024 9:16 AM CDT 05/05/2024 12:59 PM CDT us Sandra Bauman MD LAB BLOOD ORDERABLES Final Resul t [facility] [place] [address] * Ferritin (05/05/2024 9:16 AM CDT) Ferritin 164.2 10.0 - 291.0 ng/mL [facility] Blood 05/05/2024 9:16 AM CDT 05/05/2024 11:12 AM CDT Sandra Bauman MD LAB BLOOD ORDERABLES Final Resul t [facility] * Creatine kinase (CK), total (05/05/2024 9:16 AM CDT) CK, Total 53 26 - 308 IU/L [facility] Blood 05/05/2024 9:16 AM CDT 05/05/2024 11:12 AM CDT Sandra Bauman MD LAB BLOOD ORDERABLES Final Resul t Performing Organization Address [facility] Co de Phone Number [facility] * (ABNORMAL) Comprehensive metabolic panel (05/05/2024 9:16 AM CDT) Total Protein 6.7 6.1 - 8.4 g/dL [facility] Albumin 4.2 3.5 - 5.2 g/dL [facility] Calcium 10.4(H) 8.6 - 10.3 mg/dL [facility] BUN 25(H) 7 - 23 mg/dL [facility] Total Bilirubin 0.18(L) 0.20 - 1.40 mg/dL [facility] Comment:Repeated and Verifie d Alk Phos, Total 37 35 - 129 IU/L [facility] Comment:Repeated and Verifie d AST (SGOT) 14 11 - 47 IU/L [facility] ALT (SGPT) 6 6 - 53 IU/L [facility] Comment:Repeated and Verifie d Creatinine 1.17(H) 0.60 - 1.10 mg/dL [facility] Sodium 141 135 - 145 mmol/L [facility] Potassium 4.4 3.3 - 5.1 mmol/L [facility] Chloride 101 95 - 107 mmol/L [facility] CO2 Content 27 21 - 29 mmol/L [facility] Glucose 83 64 - 99 mg/dL [facility] Comment: NONFASTING GLUCOSE RANGE = 64-199 mg/dL FASTING GLUCOSE 64 - 99 = NORMAL FASTING GLUCOSE 100 - 125 = IMPAIRED FASTING GLUCOSE FASTING GLUCOSE >=126 = PROVISIONAL DIAGNOSIS OF DIABETES eGFR 48.4(L) >60.0 mL/min/1.7 3 m2 [facility] Blood 05/05/2024 9:16 AM CDT 05/05/2024 11:12 AM CDT us Sandra Bauman MD LAB BLOOD ORDERABLES Final Resul t [facility] * (ABNORMAL) CBC with auto differential (05/05/2024 9:16 AM CDT) White Blood Count 8.8 3.6 - 11.2 K/uL [facility] RBC 2.96(L) 3.63 - 4.92 M/uL [facility] Hemoglobin 9.4(L) 11.9 - 15.5 g/dL [facility] Comment:Repeated and Verifie d Hematocrit 28.1(L) 36.1 - 44.3 % [facility] Comment:Repeated and Verifie d MCV 94.7 80.0 - 97.6 fL [facility] MCH 31.8 26.7 - 33.7 pg [facility] MCHC 33.5 32.7 - 35.5 g/dL [facility] RBC Dist Width 13.7 12.3 - 17.0 % [facility] Platelet Count 213 140 - 440 K/uL [facility] MPV 8.4 6.8 - 10.4 fL [facility] Neutrophils % 76.5(H) 38.7 - 74.5 % [facility] Lymphocyte % 10.8(L) 20.0 - 54.3 % [facility] Monocytes % 9.5 4.3 - 13.5 % [facility] Eosinophils % 2.6 0.0 - 6.0 % [facility] Basophil % 0.6 0.0 - 3.0 % [facility] Absolute Neutrophil 6.7(H) 1.8 - 6.6 K/uL [facility] Absolute Lymphocyte 1.0 0.8 - 3.3 K/uL [facility] Absolute Monocyte 0.8 0.2 - 1.2 K/uL [facility] Absolute Eosinophil 0.2 0.0 - 0.5 K/uL [facility] Absolute Basophil 0.1 0.0 - 0.2 K/uL [facility] Nucleated RBC % 0.0 0.0 - 0.4 /100 WBC [facility] Blood 05/05/2024 9:16 AM CDT 05/05/2024 11:12 AM CDT us Sandra Bauman MD LAB BLOOD ORDERABLES Final Resul t [facility] documented in this encounter Visit Diagnoses Diagnosis 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)- Primary Arthropathy, unspecified documented in this encounter Care Teams Sheet Finisher Relationship Specialty Start Date End Date Timothy Donis MD PCP - General Family Practice 04/12/23 Ni Armas, BILLY Registered Nurse Pulmonary Disease 01/11/23 documented as of this encounter
--- OUTSIDE RECORDS SUMMARY | 2024-11-15 05:54 | XMS_ITS | Encounter Summary ---
Author Organization [facility] Address [address] [place] [address] Care Team Providers Care Screen Examiner Name Role Phone Ni Armas RN Unavailable Lizette Timothy Land MD Primary Care Provider [phone] Encounter Details Date Type Department Care Team (Late st Contact Info) Description 08/20/2023 Telephone [facility] Cardiology [address] [facility] [address] [place] [address] Myles Reyes MD [address] [facility] [address] [place] [address] Social History Tobacco Use Types Packs/Day Years Used Date Smoking Tobacco: Never Smokeless Tobacco: Never Alcohol Use Standard Drinks/Week Comments Not Currently 0 (1 standard drink = 0.6 oz pur e alcohol) Comments Unknown Sex and Gender Information Value Date Recorded Sex Assigned at Not on file Legal Sex Female 1:14 AM POPCORN CANDY MAKER Gender Identity Female 05/04/2020 3:33 PM CDT Sexual Orientation Not on file 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 * Telephone Encounter - Leonie Cronin - 08/20/2023 3:48 PM CDT Mae requesting refill for Furosemide 40 mg takes it twice daily with 90 day supply. Please send to [facility] on [facility] in [place], [place]. Thank you. Contact: documented in this encounter Plan of Treatment Not on file documented as of this encounter Visit Diagnoses Not on filedocumented in this encounter Discontinued Medications Medication Sig Discontinue Reason Start Date End Da te furosemide (LASIX) 40 mg tablet Take 1 tablet (40 mg total) by mouth 2 (two) times a day Reorder 08/20/2023 documented as of this encounter Care Teams Screen Examiner Relationship Specialty Start Date End Date Timothy Donis MD PCP - General Family Practice 04/12/23 Ni Armas, BILLY Registered Nurse Pulmonary Disease 01/11/23 documented as of this encounter
--- OUTSIDE RECORDS SUMMARY | 2024-11-15 05:54 | XMS_ITS | Encounter Summary ---
Author Organization [facility] Healthcare Address [address] [place] [address] Care Team Providers Care State Trooper Name Role Phone Ni Armas RN Unavailable [place] Timothy Land MD Primary Care Provider [phone] Reason for Visit * Reason Comments Follow-up 3 mo f/u Cardiomyopathy Encounter Details Date Type Department Care Team (Late st Contact Info) Description 01/17/2024 8:45 AM FINGERNAIL SCULPTOR Office Visit [facility] Medical Group Cardiology at [address] [place] [address] Myles Reyes MD [address] [address] Longstanding persistent atrial fibrillation (CMS/HCC) (HCC) (Primary Dx); HFrEF (heart failure with reduced ejection fraction) (CMS/HCC) (HCC); Primary hypertension; ILD (interstitial lung disease) (CMS/HCC) (HCC); Chronic respiratory failure with hypoxia (CMS/HCC) (HCC); Rheumatoid arthritis, involving unspecified site, unspecified whether rheumatoid factor present (HCC); Chronic anticoagulation; History of pulmonary embolus (PE); Morbid (severe) obesity due to excess calories (HCC); Body mass index 40.0-44.9, adult (CMS/HCC) (HCC); Lipid screening Social History Tobacco Use Types Packs/Day Years Used Date Smoking Tobacco: Never Smokeless Tobacco: Never Alcohol Use Standard Drinks/Week Comments Not Currently 0 (1 standard drink = 0.6 oz pur e alcohol) Comments Unknown Sex and Gender Information Value Date Recorded Sex Assigned at Not on file Legal Sex Female 1:14 AM FINGERNAIL SCULPTOR Gender Identity Female 05/04/2020 3:33 PM CDT Sexual Orientation Not on file 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 Not on file Not on file Not on file documented as of this encounter Last Filed Vital Signs Vital Sign Reading Time Taken Comments Blood Pressure 118/70 01/17/2024 8:32 AM FINGERNAIL SCULPTOR Pulse 62 01/17/2024 8:32 AM FINGERNAIL SCULPTOR Temperature - - Respiratory Rate - - Oxygen Saturation 97% 01/17/2024 8:32 AM FINGERNAIL SCULPTOR Inhaled Oxygen Concentration - - Weight 106.2 kg (234 lb 1.6 oz) 01/17/2024 8:32 AM FINGERNAIL SCULPTOR Height 157.5 cm (5' 2 ) 01/17/2024 8:32 AM FINGERNAIL SCULPTOR Body Mass Index 42.82 01/17/2024 8:32 AM FINGERNAIL SCULPTOR documented in this encounter Ordered Prescriptions Prescription Sig Dispense Quantity Refills Last Filled Start Date End Date furosemide (LASIX) 40 mg tablet Take 1 tablet (40 mg total) by mouth 2 (two) times a day 180 tablet 2 01/17/2024 metoprolol XL (TOPROL-XL) 100 mg 24 hr [...] once daily 90 tablet 3 01/17/2024 5 dilTIAZem CD (CARDIZEM CD) 300 mg 24 hr capsule Take 1 capsule (300 mg total) by mouth daily 90 capsule 2 01/17/2024 sacubitriL-valsart an (ENTRESTO) 24-26 mg tabletIndications: chronic heart failure Take 1 tablet by mouth 2 (two) times a day 180 tablet 3 01/17/2024 documented in this encounter Progress Notes * Myles Reyes MD - 01/17/2024 8:45 AM CST [facility] DATE OF VISIT: 01/17/2024 CHIEF COMPLAINT Chief Complaint Patient presents with Follow-up 3 mo f/u Cardiomyopathy ASSESSMENT Diagnoses and all orders for this visit: Longstanding persistent atrial fibrillation (CMS/HCC) ([facility]) (Primary) HFrEF (heart failure with reduced ejection fraction) (CMS/HCC) ([facility]) Primary hypertension ILD (interstitial lung disease) (CMS/HCC) (HCC) Chronic respiratory failure with hypoxia (CMS/HCC) ([facility]) Rheumatoid arthritis, involving unspecified site, unspecified whether rheumatoid factor present ([facility]) Chronic anticoagulation History of pulmonary embolus (PE) Morbid (severe) obesity due to excess calories ([facility]) Body mass index 40.0-44.9, adult (CMS/[facility]) ([facility]) Other orders - sacubitriL-valsartan (ENTRESTO) 24-26 mg tablet; Take 1 tablet by mouth 2 (two) times a day - dilTIAZem CD (CARDIZEM CD) 300 mg 24 hr capsule; Take 1 capsule (300 mg total) by mouth daily - metoprolol XL (TOPROL-XL) 50 mg extended release tablet; Take 1 tablet (50 mg total) by mouth daily To be taken with Metoprolol 100 mg tablet once daily - metoprolol XL (TOPROL-XL) 100 mg 24 hr tablet; Take 1 tablet (100 mg total) by mouth daily To be taken with Metoprolol 50 mg tablet once daily - furosemide (LASIX) 40 mg tablet; Take 1 tablet (40 mg total) by mouth 2 (two) times a day PLAN/RECOMMENDATIONS 1. AFib historically paroxysmal persistent of [...] mg daily. Continue Entresto 24/26 mg twice daily. Once again, we discussed increase to 49/51mg BID but she is doing well and would prefer not to do so at this time. She has a had intermittent hypotension in the past placing her at higher fall risk. Patient's daughter does not wish for any changes at present. 3. Reasonably compensated, chronic HFpEF historically now reduced LV function EF 20% by echocardiogram but during AFib with RVR NYHA class III sxs confounded by chronic hypoxic respiratory failure. CHF counseling performed. Follow daily weight, less than 2 g daily sodium intake, medication compliance. Call w/ wt gain >3lb in 24 hrs or worsening edema and/or FALCON. -Echo 04/05/2023 at [facility] EF 25-30% during AFib with RVR [id number] MR moderate pulmonary hypertension RVSP 50 mm Hg. -07/2023 Echo EF improved 50-55% mild RV hypokinesis, mild left atrial enlargement mild MR/TR, no , PASP 30 mmHg. -Cont Lasix 40mg BID. 4. Follow up with Renal as scheduled. Cr improved to 1.0 but BUN higher at 41. No change in currentregimen at this time. Monitor closely. Discussed at length. 5. Follow-up with pulmonology and Rheumatology as scheduled. Compliance with [facility] for tx of STARR. Rosalio continue on hydroxychloroquine, methotrexate and prednisone as directed 6. Lipids personally reviewed 01/17/24 LDL 63, well controlled goal LDL< 100. Continue statin therapy and lifestyle modification. Pravastatin 80mg qhs. 7. Lifestyle modification counseling performed. Encouraged consistent weight loss, exercise, reduction in caloric intake. 8. Strongly encouraged remain compliant with dietary restrictions as previously counseled. Patient verbalized understanding and will attempt to follow recommendations. Over 50% of this visit counseling CHF, HTN, lipids, medications, lifestyle modification. Follow up in the office in 3-4 months or sooner as needed. Thank you [...] was previously followed by Dr. Parker. Her line and frame poler is Dr. Norman. Her paint coating machine operator is Dr. Kobe Gerard. She presented to [facility] on 01/01/2020 with complaint of worsening [...] CPAP machine nightly, but sometimes remove sit residential through the night. PCP follows her INRs [...] trying to lose some weight, following a [id number] Na restriction. Now using a foot pedal [...] 09/29/21 CAT visit-On 09/21/21 she went to [facility] ER for complaint of worsening shortnessof [...] Norman has referred her to pulmonology at [facility] and that appointment is next month. 12-lead ECG performed in the office today was independently interpreted by me and showed sinus rhythm, normal axis and normal intervals, rate 88 beats per minute 11/02/21 Says not feeling any better at all after admission to [facility] with influenza B hurts to doeverything takes a lot out of her, no energy or appetite, SOB same as before. Attributes a lot to being off her pain meds including Hydroxychloroquine and Methotrexate for a while while in hospital. On CPAP. Not much edema though. Pain is mostly in shoulders and hands. Uses heating pad and Tylenol.Saw PCP recently. Sees Pulm at [place] tomorrow. Using 2L O2 at rest 4L O2 with activity. She notes her O2 drops to 85% on 4L still. Rheum adjusting meds on prednisone for 1 week without noted improvement thus far. Has PT coming into home. 04/17/22 Admitted to [facility] with ILD and CHF admits she hasn't [...] CAT visit - she was hospitalized at [facility] 05/25-05/26 for pulmonary edema, tested positive for COVID, treated for rib fractures due to a fall 2 days prior. Then hospitalized at [place] 05/27-06/07for treatment of pneumonia (bacterial verses COVID) / COPD exacerbation, diastolic heart failure exacerbation. She became bradycardic on telemetry (heart rate 30-40 with pause up to 3 seconds) so remdesivir was stopped and metoprolol was stopped. IV furosemide caused MIKE so she was discharged without furosemide but it has since been restarted in [facility] (currently she is at [facility] in [place]). When she is doing physical therapy her [...] and atrial flutter with RVR. Went to [facility] after February admission then back to [facility] in March after and she feels diet at [facility] is to fault and salty. Cough is incessant at [facility]. Has blood in stool reported Elisa recommended discharge yesterday on Dilt 300mg daily and Toprol XL 150mg Lasix 40mg BID Echo with EF 27% but in AF with RVR. Extensively reviewed [facility] records. Patient's daughter veryconcerned about her [...] them. Today she had an appointment at [facility] with her line and frame poler so she has not been able to [...] eating more and weight up, watching salt. 01/17/24 gaining more weight, not using CPAP, sleeps poorly maybe 2 hours at night if she is oswaldo. No falls. No CP. Breathing stable no change still FALCON no change. Here with her daughter. She admits she has not been consistent with diet splurges with cheese, weight up a bit more edema. Had injections in hips moving a little better helping her. No bleeding. Meds same. MEDICAL HISTORY Past Medical History: Diagnosis Date Anemia Atrial fibrillation (CMS/HCC) (HCC) Cataracts, bilateral CHF (congestive heart failure) (CMS/HCC) (HCC) Chronic kidney disease 2021 Depression 12/2021 Diastolic [...] packet cyanocobalamin (Vitamin B-12) 1,[address] (CYMBALTA) 20 mg capsule Eliquis 5 mg tablet hydroxychloroquine (PLAQUENIL) 200 mg tablet levothyroxine (SYNTHROID) [address] (PROTONIX) 40 mg EC tablet potassium chloride ER (KLOR-CON) 20 mEq CR tablet pravastatin (PRAVACHOL) 80 mg tablet predniSONE (DELTASONE) 2.5 mg tablet predniSONE (DELTASONE) 5 mg tablet traMADoL (ULTRAM) 50 mg tablet dilTIAZem CD (CARDIZEM CD) 300 mg 24 hr capsule furosemide (LASIX) 40 mg tablet metoprolol XL (TOPROL-XL) 100 mg 24 hr tablet metoprolol XL (TOPROL-XL) 50 mg extended release tablet sacubitriL-valsartan (ENTRESTO) 24-26 mg tablet dilTIAZem CD (CARDIZEM CD) 300 mg 24 hr capsule furosemide (LASIX) 40 mg tablet metoprolol XL (TOPROL-XL) 100 mg 24 hr tablet metoprolol XL (TOPROL-XL) 50 mg extended release tablet sacubitriL-valsartan (ENTRESTO) 24-26 mg tablet ALLERGIES No Known Allergies REVIEW OF SYSTEMS Review of Systems Constitutional: Positive for malaise/fatigue and weight gain. Negative for decreased appetite, diaphoresis, fever, night sweats and weight loss. HENT: Negative for hearing loss and nosebleeds. [...] and are negative. PHYSICAL EXAM Vitals BP 118/70 (BP Location: Left arm, Patient Position: Sitting) Pulse 62 Ht 157.5 cm (5' 2 ) Wt 106.2 kg (234 lb 1.6 oz) SpO2 97% BMI 42.82 kg/m?? Weight: 106.2 kg (234 lb 1.6 oz) Height: 157.5 cm (5' 2 ) Body mass index is 42.82 kg/m??. Physical Exam Vitals reviewed. Constitutional: General: [...] TESTS Results for orders placed or performed in visit on 01/15/24 Erythrocyte sedimentation rate Result Value Ref Range Erythrocyte sedimentation rate 12 1 - 30 mm/hr CRP (acute phase) Result Value Ref Range CRP 2.1 <=10.0 mg/L Comprehensive metabolic panel Result Value Ref Range Sodium 140 135 - 145 mmol/L Potassium, pl 4.3 3.3 - 4.9 mmol/L Chloride 99 97 - 110 mmol/L CO2 30 22 - 32 mmol/L Anion gap 11 2 - 15 mmol/L BUN 41 (H) 6 - 25 mg/dL Creatinine 1.00 0.60 - 1.10 mg/dL Glucose 82 70 - 199 mg/dL Calcium 9.7 8.5 - 10.3 mg/dL Bilirubin, total 0.2 0.1 - 1.2 mg/dL Protein, pl 6.4 (L) 6.5 - 8.5 g/dL Albumin 4.0 3.5 - 5.0 g/dL Alk phos 33 (L) 40 - 130 Units/L ALT 8 7 - 45 Units/L AST 10 10 - 45 Units/L CBC with auto differential Result Value Ref Range WBC 11.2 (H) 3.8 - 9.9 K/cumm Hgb 9.5 (L) 11.9 - 15.5 g/dL Hct 31.3 (L) 35.6 - 45.5 % Plt 237 150 - 400 K/cumm MPV 9.6 9.1 - 12.3 fL RBC 3.18 (L) 3.90 - 5.20 M/cumm MCV 98.4 (H) 81.3 - 96.4 fL MCH 29.9 27.1 - 33.3 pg MCHC 30.4 (L) 32.3 - 35.7 g/dL RDW CV 13.6 11.1 - 14.9 % RDW SD 49.4 (H) 35.7 - 48.1 fL NRBC abs 0.00 0.00 - 0.01 K/cumm Differential, auto Result Value Ref Range Neutrophil abs 7.9 (H) 1.5 - 6.5 K/cumm Imm gran abs 0.1 0.0 - 0.1 K/cumm Lymphocyte abs 2.0 0.8 - 3.3 K/cumm Monocyte abs 0.9 (H) 0.2 - 0.8 K/cumm Eosinophil abs 0.3 0.0 - 0.5 K/cumm Basophil abs 0.0 0.0 - 0.1 K/cumm Neutrophil pct 70.7 % Imm gran pct 0.5 % Lymphocyte pct 17.5 % Monocyte pct 8.1 % Eosinophil pct 3.0 % Basophil pct 0.2 % eGFR Result Value Ref Range eGFR 59 mL/min/1.73 m2 09/29/2021 2D echocardiogram: [facility] EF 55-60% mild LVH, mild LVE, trivial MR, normal pulmonary pressures 10/04/2021 48 hour Holter monitor: Interpretation Summary AMBULATORY DEPUTY ATTORNEY GENERAL REPORT Patient Name: Ayanna Cash Date of [...] Clinical correlation is recommended. 12/29/21 2D Echo ([facility]): EF 55-60% mild LVH moderate left atrial enlargement no MR unable to estimate PA systolic pressure. No . 07/11/22 Interpretation Summary AMBULATORY DEPUTY ATTORNEY GENERAL REPORT Patient Name: Ayanna Cash Date of [...] rate. Longest RR intervals appearedto have occurred economic research assistant overnight hours presumably while asleep. Sinus rhythm [...] fibrillation. Personally reviewed EKG, electronic medical record, [facility] records, and bloodwork/lipids. Geetha Reyes MD, [facility] This note is dictated and transcribed using [employer] Direct Software. Representative Personal Service variancesmay occur. Despite proofreading, typographical errors may occur. ERNAIL SCULPTOR documented in this encounter Plan of Treatment Not on file documented as of this encounter Procedures Procedure Name Priority Date/Time Associated Diagnosis Comments POCT LIPID PANEL Routine 01/17/2024 9:41 AM FINGERNAIL SCULPTOR Lipid screening documented in this encounter Results * POCT lipid panel (01/17/2024 9:41 AM FINGERNAIL SCULPTOR) Cholesterol, POC 155 mg/dL Comment:GLU = 127 HDL, POC 76 mg/dL Triglycerides, POC 80 mg/dL LDL Cholesterol POC 63 mg/dL Chol/HDL Ratio, POC 2.0 Non-HDL Cholesterol, POC 79 mg/dL Cholesterol Total, POC 155 mg/dL Capillary blood 01/17/2024 9 :41 AM FINGERNAIL SCULPTOR Myles Reyes MD POINT OF CARE TEST ORDER KHOA Final Result documented in this encounter Visit Diagnoses Diagnosis Longstanding persistent atrial fibrillation ([facility]) ([facility])- Primary HFrEF (heart failure with reduced ejection fraction) ([facility]) ([facility]) Primary hypertension Unspecified essential hypertension ILD (interstitial lung disease) ([facility]) ([facility]) Postinflammatory pulmonary fibrosis Chronic respiratory failure with hypoxia ([facility]) ([facility]) Rheumatoid arthritis, involving unspecified site, unspecified whether rheumatoid factor present ([facility]) Chronic anticoagulation Encounter for long-term (current) use of anticoagulants History of pulmonary embolus (PE) Morbid (severe) obesity due to excess calories ([facility]) Body mass index 40.0-44.9, adult ([facility]) ([facility]) Body Mass Index 40.0-44.9, adult Lipid screening Screening for lipoid disorders documented in this encounter Discontinued Medications Medication Sig Discontinue Reason Start Date End Da te sacubitriL-valsartan (ENTRESTO) 24-26 mg tabletIndications: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 Take 1 tablet by mouth 2 (two) times a day Reorder 04/12/2023 01/17/2024 dilTIAZem CD (CARDIZEM CD) 300 mg 24 hr capsule TAKE 1 CAPSULE(300 MG) BY MOUTH DAILY Reorder 09/13/2023 01/17/2024 metoprolol XL (TOPROL-XL) 50 mg extended release tablet Take 1 tablet (50 mg total) by mouth daily To be taken with Metoprolol 100 mg tablet once daily Reorder 06/17/2023 01/17/2024 metoprolol XL (TOPROL-XL) 100 mg 24 hr tablet Take 1 tablet (100 mg total) by mouth daily To be taken with Metoprolol 50 mg tablet once daily Reorder 06/17/2023 01/17/2024 furosemide (LASIX) 40 mg tablet Take 1 tablet (40 mg total) by mouth 2 (two) times a day Reorder 08/20/2023 01/17/2024 documented as of this encounter Care Teams State Trooper Relationship Specialty Start Date End Date Timothy Donis MD PCP - General Family Practice 04/12/23 Ni Armas, RN Registered Nurse Pulmonary Disease 01/11/23 documented as of this encounter
--- OUTSIDE RECORDS SUMMARY | 2024-11-15 05:54 | XMS_ITS | Encounter Summary ---
Author Organization [facility] Healthcare Address [address] [place] [address] Care Team Providers Care Wire Loop Machine Operator Name Role Phone Ni Armas RN Unavailable [place] Timothy Land MD Primary Care Provider [phone] Encounter Details Date Type Department Care Team (Late st Contact Info) Description 01/02/2024 Telephone [facility] Radiology [address] [place] [address] Dolores Nguyễn, B.AYinka Social History Tobacco Use Types Packs/Day Years Used Date Smoking Tobacco: Never Smokeless Tobacco: Never Alcohol Use Standard Drinks/Week Comments Not Currently 0 (1 standard drink = 0.6 oz pur e alcohol) Comments Unknown Sex and Gender Information Value Date Recorded Sex Assigned at Not on file Legal Sex Female 1:14 AM COMBINATION MAN Gender Identity Female 05/04/2020 3:33 PM CDT Sexual Orientation Not on file 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 file Not on file Not on file documented as of this encounter Miscellaneous Notes * Telephone Encounter - Dolores Nguyễn, BYinkaAYinka - 01/02/2024 8:25 AM CST 01/02/24 spoke w/pt's daughter, Mae, and confirmed appt date, time & location; no ?s INATION MAN documented in this encounter Plan of Treatment Not on file documented as of this encounter Visit Diagnoses Not on filedocumented in this encounter Care Teams Wire Loop Machine Operator Relationship Specialty Start Date End Date Timothy Donis MD PCP - General Family Practice 04/12/23 Ni Armas, RN Registered Nurse Pulmonary Disease 01/11/23 documented as of this encounter
--- OUTSIDE RECORDS SUMMARY | 2024-11-15 05:54 | XMS_ITS | Encounter Summary ---
Author Organization [facility] Address [address] [place] [address] Phone Care Team Providers Care Low Voltage Technician Name Role Phone Ni Armas RN Unavailable Lizette Timothy Land MD Primary Care Provider [phone] Reason for Referral * Consultation (Routine) - Closed Specialty Diagnoses / Procedures Referred By Contact Referred To Contact Physical Medicine and Rehabilitation Diagnoses Lumbar radiculopathy Monty Kenny MD [address] [place] [address] Phone: tel:[phone] fax:[phone] [facility] (All Locations) Referral ID Status Reason Start Date Expiration Date V isits Requested Visits Authorized [id number] Closed Specialty Services Required 12/20/2023 01/18/2025 1 1 Question Answer Please select the performing region: [facility] (All Locations) [167] # of visits: 1 Comments Eval and treat lumbar radiculopathy ERCIAL LINES UNDERWRITER * Diagnostic Imaging (Routine) - Closed Specialty Diagnoses / Procedures Referred By Contac t Referred To Contact Diagnoses Osteoarthritis of left hip, unspecified osteoarthritis type Primary osteoarthritis of right hip Procedures FL Fluoro Guided Aspiration or Injection Large Joint Bilateral Monty Kenny MD [address] [place] [address] Phone: tel: fax: [facility] [address] [place] [address] Referral ID Status Reason Start Date Expiration Date Visits Re quested Visits Authorized [id number] Closed 12/20/2023 01/18/2025 1 1 ERCIAL LINES UNDERWRITER * Diagnostic Imaging (Routine) - Closed Specialty Diagnoses / Procedures Referred By Contac t Referred To Contact Diagnoses Left hip pain Procedures XR Pelvis 1 or 2 Views Monty Kenny MD [address] [place] [address] Phone: tel: fax: [email or web address] Rad[facility] [address] [place] [address] [address] [place] [address] Phone: tel: Referral ID Status Reason Start Date Expiration Date Visits Re quested Visits Authorized [id number] Closed 12/12/2023 01/10/2025 1 1 ERCIAL LINES UNDERWRITER Reason for Visit * Reason Comments Pain * Consultation (Routine) - Closed Specialty Diagnoses / Procedures Referred By Contac t Referred To Contact Orthopedic Surgery Diagnoses Left hip pain Osteoarthritis of left hip, unspecified osteoarthritis type Sandra Bauman MD [address] [facility] [address] [place] [address] Phone: tel: fax: Adriano Marinelli MD [address] [facility] [address] [place] [address] Phone: tel: fax: Referral ID Status Reason Start Date Expiration Date V isits Requested Visits Authorized [id number] Closed Specialty Services Required 10/24/2023 11/22/2024 1 1 Encounter Details Date Type Department Care Team (Late st Contact Info) Description 12/20/2023 8:00 AM COMMERCIAL LINES UNDERWRITER Office Visit [facility] Orthopaedic Surgery [address] [place] [address] Medical Office Building [address] [place] [id number] Monty Kenny MD [address] [place] [address] Other bilateral secondary osteoarthritis of hip (Primary Dx); Left hip pain; Osteoarthritis of left hip, unspecified osteoarthritis type; Primary osteoarthritis of right hip; Lumbar radiculopathy Social History Tobacco Use Types Packs/Day Years Used Date Smoking Tobacco: Never Smokeless Tobacco: Never Alcohol Use Standard Drinks/Week Comments Not Currently 0 (1 standard drink = 0.6 oz pur e alcohol) Comments Unknown Sex and Gender Information Value Date Recorded Sex Assigned at Not on file Legal Sex Female 1:14 AM COMMERCIAL LINES UNDERWRITER Gender Identity Female 05/04/2020 3:33 PM CDT Sexual Orientation Not on file 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 NEW PATIENT VISIT CHIEF COMPLAINT: bilateral (L>R) hip pain HISTORY OF PRESENT ILLNESS: Ayanna Cash is a 73 y.o. year old female with multiple significant medial comorbidities, who presents for evaluation of bilateral (L>R) hip pain. She has had pain for many years. Has tried PT. Has not tried injections. Not on chronic pain meds. Has been told by household appliances salesperson that she is too high risk for surgery. Also reports radiating electrical/burning pain that goes into feet and has occ asional numbness. PAST MEDICAL HISTORY: has a past medical history of Anemia, Atrial fibrillation (CMS/HCC) ([facility]), Cataracts, bilateral, CHF (congestive heart failure) (CMS/HCC) ([facility]), Chronic kidney disease (2021), Depression (12/2021), Diastolic dysfunction, Diverticulitis, H/O section, Heart disease, Hypertension, Kidney stone (2021), Obesity, Sleep apnea, Thyroid disease, and Wears dentures. PAST SURGICAL HISTORY: has a past surgical history that includes section; Thyroidectomy; Cholecystectomy; Joint replacement (Knee replacement both (L) & (R)); and Cataract extraction (2021 both eyes). MEDICATIONS: Current Outpatient Medications on File Prior to Visit Medication Sig Dispense Refill abatacept (Orencia ClickJect) [...] hours as neededfor pain 21 tablet 0 [DISCONTINUED] HYDROcodone-acetaminophen (NORCO) 5-325 mg per tablet Take by mouth every 6 (six) hours as needed for pain No current facility-administered medications on file prior to visit. ALLERGIES: No Known Allergies. SOCIAL HISTORY: Social History Tobacco Use Smoking status: Never Smokeless tobacco: Never Substance and Sexual Activity Drug use: Never Sexual activity: Never Alcohol Use: Not on file FAMILY HISTORY: family history includes Blood Clot in her father; Clotting disorder in her father; Hypertension in her mother; No Known Problems in her sister and sister; Rheum arthritis in her father. REVIEW OF SYSTEMS: Constitutional: Negative for chills, activity change and appetite change. HENT: Negative. Eyes: Negative. Respiratory: Negative. Cardiovascular: Negative. Gastrointestinal: Negative. Genitourinary: Negative. Musculoskeletal: per HPI Skin: Negative. Neurological: Negative. Psychiatric/Behavioral: Negative. PHYSICAL EXAM: Vitals: Height: Height: 157.5 cm (5' 2 ) Weight: Weight: 104.3 kg (230 lb) BMI: Body mass index is 42.07 kg/m??. General: Awake, alert, oriented to person, place, and time. Affect is normal. Hearing is normal to the spoken word. Breathing is unlabored. B Hip Patient is wheelchair bound. Unable to stand. +pain with troch palpation. + pain with log roll. ROMdeferred. Extremities: Vascular: The dorsalis pedis pulse is palpable bilaterally. There is good perfusion of both feet with good capillary refill. Neurologic: The distal motor and sensory exam is grossly normal without appreciable deficit bilaterally. Intact extensor hallucis longus, flexor hallucis longus, tibialis anterior, and gastrocnemius soleus complex. RADIOGRAPHS: The AP pelvis and 3 radiographic views of the bilateral hip demonstrate severe osteoarthritis with joint space narrowing, subchondral cyst formation, sclerosis and osteophyte formation. IMPRESSION: 73 y.o. year old female with severe osteoarthritis of the bilateral hip, also with radiculopathy and troch bursitis. She is not a surgical candidate at this time given multiple significant cormorbidities and BMI >40. PLAN: - refer physiatry for radiculopathy - refer IR for bilateral IA hip injection - should fu with our checkerer hand given she is not a surgical candidate - patient in agreement with plan Monty Kenny MD/LUCERO Pipeline Controller of Orthopaedic Surgery Adult Hip and Knee Reconstruction ERCIAL LINES UNDERWRITER documented in this encounter Plan of Treatment Scheduled Referrals Name Type Priority Associated Diagnoses Orde r Schedule Ambulatory referral to Orthopedic Physiatry Outpatient Referral Routine Lumbar radiculopathy Expected: 01/03/2024 (Approximate), Expires: 12/20/2024 documented as of this encounter Results * FL Fluoro Guided Aspiration or Injection Large Joint Bilateral (01/03/2024 9:21 AM COMMERCIAL LINES UNDERWRITER) Anatomical Region Laterality Modality Body Bilateral X-Ray Angiograph y 01/03/2024 9:57 AM COMMERCIAL LINES UNDERWRITER Impressions 01/03/2024 4:22 PM COMMERCIAL LINES UNDERWRITER 1. ??Bilateral hip joint injection under fluoroscopic guidance with no change in the patient's presenting pain at the conclusion of the procedure. Dictated by: Adriano Perez M.D. The radiology attending physician has personally reviewed this study, and had reviewed and/or edited this written report and agrees with it. Electronically signed by: Kieran Tay MD Narrative 01/03/2024 4:22 PM COMMERCIAL LINES UNDERWRITER EXAMINATION: ??Bilateral joint injection under fluoroscopic guidance HISTORY: Bilateral hip pain ATTENDING PRESENCE: Dr. Kieran Tay MD, the attending radiologist, was present from the beginning to the end of the procedure. SEDATION: The patient did not require conscious sedation for the procedure. TECHNIQUE: ??The risks, benefits and alternatives were discussed and informed consent was obtained. ??Prior to beginning the procedure, Liberty Protocol was performed to confirm the patient's identity and the planned procedure. Sterile barriers used during the procedure included cap, mask, hand hygiene, sterile gloves, and sterile drape. ??Chloraprep was used for cutaneous antisepsis. The patient was placed supine on the procedure table. The femoral artery was palpated to assess its location. The left hip joint was localized with fluoroscopic guidance. ??Local anesthesia was achieved with subcutaneous injection of 1% lidocaine 2 mL. ??A 22-gauge needle was then introduced into the joint under imaging guidance. 2 mL of a 2:1 mixture of Optiray-350 and 0.25% bupivacaine was injected to verify intra-articular position of the needle tip. A mixture containing Kenalog (40 mg/mL) 1 mL, 0.25% bupivacaine 1 mL, and Omnipaque-300 1mL was then injected into the joint. ??The needle was removed. ??The skin was cleansed with hydrogen peroxide, and a bandage was placed. ?? Attention was then turned to the right hip joint. The femoral artery was palpated to assess its location. The right hip joint was localized with fluoroscopic guidance. ??Local anesthesia was achieved with subcutaneous injection of 1% lidocaine 2 mL. ??A 22-gauge needle was then introduced into the joint under imaging guidance. 2 mL of a 2:1 mixture of Optiray-350 and 0.25% bupivacaine was injected to verify intra-articular position of the needle tip. A mixture containing Kenalog (40 mg/mL) 1 mL, 0.25% bupivacaine 1 mL, and Omnipaque-300 1mL was then injected into the joint. ??The needle was removed. ??The skin was cleansed with hydrogen peroxide, and a bandage was placed. ?? Complication: None Type: N/A ?? ESTIMATED BLOOD LOSS: None CONDITION: Stable condition. DISCHARGED TO: Home FINDINGS: Imaging confirms intra-articular position of the needle tip. ?? Following the injection, the patient reported no change in symptoms. Procedure Note Windy Tay MD - 01/03/2024 EXAMINATION: Bilateral joint injection under fluoroscopic guidance HISTORY: Bilateral hip pain ATTENDING PRESENCE: Dr. Kieran Tay MD, the attending radiologist, was present from the beginning to the end of the procedure. SEDATION: The patient did not require conscious sedation for the procedure. TECHNIQUE: The risks, benefits and alternatives were discussed and informed consent was obtained. Prior to beginning the procedure, Liberty Protocol was performed to confirm the patient's identity and the planned procedure. Sterile barriers used during the procedure included cap, mask, hand hygiene, sterile gloves, and sterile drape. Chloraprep was used for cutaneous antisepsis. The patient was placed supine on the procedure table. The femoral artery was palpated to assess its location. The left hip joint was localized with fluoroscopic guidance. Local anesthesia was achieved with subcutaneous injection of 1% lidocaine 2 mL. A 22-gauge needle was then introduced into the joint under imaging guidance. 2 mL of a 2:1 mixture of Optiray-350 and 0.25% bupivacaine was injected to verify intra-articular position of the needle tip. A mixture containing Kenalog (40 mg/mL) 1 mL, 0.25% bupivacaine 1 mL, and Omnipaque-300 1mL was then injected into the joint. The needle was removed. The skin was cleansed with hydrogen peroxide, and a bandage was placed. Attention was then turned to the right hip joint. The femoral artery was palpated to assess its location. The right hip joint was localized with fluoroscopic guidance. Local anesthesia was achieved with subcutaneous injection of 1% lidocaine 2 mL. A 22-gauge needle was then introduced into the joint under imaging guidance. 2 mL of a 2:1 mixture of Optiray-350 and 0.25% bupivacaine was injected to verify intra-articular position of the needle tip. A mixture containing Kenalog (40 mg/mL) 1 mL, 0.25% bupivacaine 1 mL, and Omnipaque-300 1mL was then injected into the joint. The needle was removed. The skin was cleansed with hydrogen peroxide, and a bandage was placed. Complication: None Type: N/A ESTIMATED BLOOD LOSS: None CONDITION: Stable condition. DISCHARGED TO: Home FINDINGS: Imaging confirms intra-articular position of the needle tip. Following the injection, the patient reported no change in symptoms. IMPRESSION: 1. Bilateral hip joint injection under fluoroscopic guidance with no change in the patient's presenting pain at the conclusion of the procedure. Dictated by: Adriano Perez M.D. The radiology attending physician has personally reviewed this study, and had reviewed and/or edited this written report and agrees with it. Electronically signed by: Kieran Tay MD Monty Kenny MD [facility] [place] [place] FLUOROSCOPY PROCEDURES Final Result * XR Pelvis 1 or 2 Views (12/20/2023 7:17 AM COMMERCIAL LINES UNDERWRITER) Anatomical Region Laterality Modality Body, Pelvis N/A Computed Radiogr aphy 12/20/2023 7:23 AM COMMERCIAL LINES UNDERWRITER Impressions 12/20/2023 7:23 AM COMMERCIAL LINES UNDERWRITER 1. ??Severe bilateral hip osteoarthritis. Electronically signed by: Gregory Jacobo MD Narrative 12/20/2023 7:23 AM COMMERCIAL LINES UNDERWRITER EXAMINATION: XR PELVIS 1 OR 2 VIEWS HISTORY: ??Hip pain TECHNIQUE: 1 radiographs of the pelvis COMPARISON: 12/09/2022 FINDINGS: Severe bilateral hip osteoarthritis. ??No acute fractures identified on this single AP radiograph. ??Osseous demineralization. ??Mild bilateral sacroiliac osteoarthritis. ??Degenerative disc disease of the lumbosacral spine. Procedure Note Gregory Jacobo MD - 12/20/2023 EXAMINATION: XR PELVIS 1 OR 2 VIEWS HISTORY: Hip pain TECHNIQUE: 1 radiographs of the pelvis COMPARISON: 12/09/2022 FINDINGS: Severe bilateral hip osteoarthritis. No acute fractures identified on this single AP radiograph. Osseous demineralization. Mild bilateral sacroiliac osteoarthritis. Degenerative disc disease of the lumbosacral spine. IMPRESSION: 1. Severe bilateral hip osteoarthritis. Electronically signed by: Gregory Jacobo MD Monty Kenny MD [facility] [place] [place] XR PROCEDURES Final Result documented in this encounter Visit Diagnoses Diagnosis Other bilateral secondary osteoarthritis of hip- Primary Left hip pain Pain in joint, pelvic region and thigh Osteoarthritis of left hip, unspecified osteoarthritis type Primary osteoarthritis of right hip Lumbar radiculopathy Thoracic or lumbosacral neuritis or radiculitis, unspecified Left hip pain Pain in joint, pelvic region and thigh Osteoarthritis of left hip, unspecified osteoarthritis type Primary osteoarthritis of right hip documented in this encounter Discontinued Medications Medication Sig Discontinue Reason Start Date End Da te HYDROcodone-acetaminophe n (NORCO) 5-325 mg per tablet Take by mouth every 6 (six) hours as needed for pain Therapy completed 10/03/2023 12/20/2023 documented as of this encounter Historical Medications * This list may reflect changes made after this encounter. HYDROcodone-aceta minophen (NORCO) 5-325 mg per tablet Take by mouth every 6 (six) hours as needed for pain 10/03/2023 12/20/2023 added in this encounter Orders Outpatient Referral Count Last Ordered Date Fir st Ordered Date AMB REFERRAL TO ORTHOPEDIC SURGERY 1 2023 documented in this encounter Care Teams Low Voltage Technician Relationship Specialty Start Date End Date Timothy Donis MD PCP - General Family Practice 04/12/23 Ni Armas, RN Registered Nurse Pulmonary Disease 01/11/23 documented as of this encounter
--- OUTSIDE RECORDS SUMMARY | 2024-11-15 05:54 | XMS_ITS | Encounter Summary ---
Author Organization [facility] Address [address] [place] [address] Care Team Providers Care Automatic Thread Winder Name Role Phone Ni Armas RN Unavailable Lizette Timothy Land MD Primary Care Provider [phone] Encounter Details Date Type Department Care Team (Late st Contact Info) Description 05/17/2023 Telephone [facility] Medical [facility] Cardiology [address] [place] [address] Myles Reyes MD [address] [facility] [address] [place] [address] Social History Tobacco Use Types Packs/Day Years Used Date Smoking Tobacco: Never Smokeless Tobacco: Never Alcohol Use Standard Drinks/Week Comments Not Currently 0 (1 standard drink = 0.6 oz pur e alcohol) Comments Unknown Sex and Gender Information Value Date Recorded Sex Assigned at Not on file Legal Sex Female 1:14 AM PROFESSOR OF RELIGIOUS STUDIES Gender Identity Female 05/04/2020 3:33 PM CDT Sexual Orientation Not on file 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 Called pt and spoke with her and her dgt. They report an episode of sharp CP, 9/10, non-radiating, that lasted for 2 seconds. Pt was sitting in bed completing a puzzle at the time of the event and broke out into a sweat. She had another episode of dull CP this morning while getting dressed. This was also non radiating. Aside from these 2 episodes, she reports no other instances of CP. She does report these dull episodes are occurring every 10 minutes this morning, but denied active chest pain at the time of our call. Advised pt's dgt for pt to go to the ED for any episode of CP that does not resolve with 5 minutes of rest. She verbalized understanding and was in agreement. Will forward to AD as FYI documented in this encounter Plan of Treatment Not on file documented as of this encounter Procedures Procedure Name Priority Date/Time Associated Diagnosis Comments SCAN - RADIOLOGY/IMAGING 05/17/2023 documented in this encounter Results * SCAN - RADIOLOGY/IMAGING (05/17/2023) Anatomical Region Laterality Modality Other us Provider Scanning Final Result documented in this encounter Visit Diagnoses Not on filedocumented in this encounter Care Teams Automatic Thread Winder Relationship Specialty Start Date End Date Timothy Donis MD PCP - General Family Practice 04/12/23 Ni Armas, RN Registered Nurse Pulmonary Disease 01/11/23 documented as of this encounter
--- OUTSIDE RECORDS SUMMARY | 2024-11-15 05:54 | XMS_ITS | Encounter Summary ---
Author Organization [facility] Healthcare Address [address] [place] [address] Care Team Providers Care Steel Layout Worker Name Role Phone Ni Armas RN Unavailable Lizette Timothy Land MD Primary Care Provider [phone] Encounter Details Date Type Department Care Team (Late st Contact Info) Description 12/06/2023 Telephone [facility] Medical Group Cardiology [address] [place] [address] Myles Reyes MD [address] [facility] [address] [place] [address] Social History Tobacco Use Types Packs/Day Years Used Date Smoking Tobacco: Never Smokeless Tobacco: Never Alcohol Use Standard Drinks/Week Comments Not Currently 0 (1 standard drink = 0.6 oz pur e alcohol) Comments Unknown Sex and Gender Information Value Date Recorded Sex Assigned at Not on file Legal Sex Female 1:14 AM PATENT ATTORNEY Gender Identity Female 05/04/2020 3:33 PM CDT Sexual Orientation Not on file 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 Donis is the prescriber and she normally goes through [facility]. Aware to contact PCP for 10 day supply, states she left a msg for Dr. Donis's office earlier. Instructed her to follow up with their office. Pt verbalized understanding. Dr. Reyes, Please disregard NT ATTORNEY * Telephone Encounter - Noa Cohen MA - 12/06/2023 2:48 PM CST Called pt to ask who the doctor on her Eliquis prescription is. No answer Dr. Reyes, I see that EU instructed pt to skip four doses and resume taking due to a nose bleed on 11/17/23. Are you the prescriber for her Eliquis? Listed under historical provider on med list. Thank you NT ATTORNEY * Telephone Encounter - Leonie Vega - 12/06/2023 1:21 PM CST Mae requesting 10 day supply of Eliquis 5 mg BID be sent to [facility]. Contact: NT ATTORNEY documented in this encounter Plan of Treatment Not on file documented as of this encounter Visit Diagnoses Not on filedocumented in this encounter Care Teams Steel Layout Worker Relationship Specialty Start Date End Date Timothy Donis MD PCP - General Family Practice 04/12/23 Ni Armas, RN Registered Nurse Pulmonary Disease 01/11/23 documented as of this encounter
--- OUTSIDE RECORDS SUMMARY | 2024-11-15 05:54 | XMS_ITS | Encounter Summary ---
Author Organization [facility] Healthcare Address [address] [place] [address] Care Team Providers Care Customer Engineer Name Role Phone Ni Armas RN Unavailable Lizette Timothy Land MD Primary Care Provider [phone] [phone] Reason for Referral * Diagnostic Imaging (Routine) - Closed Specialty Diagnoses / Procedures Referred By Contac t Referred To Contact Diagnoses Osteoarthritis of left hip, unspecified osteoarthritis type Primary osteoarthritis of right hip Procedures FL Fluoro Guided Aspiration or Injection Large Joint Bilateral Monty Kenny MD [address] [place] [address] Phone: tel: fax: [place] [phone] [place] [address] Referral ID Status Reason Start Date Expiration Date Visits Re quested Visits Authorized [id number] Closed 12/20/2023 01/18/2025 1 1 KER Reason for Visit * Diagnostic Imaging (Routine) - Closed Specialty Diagnoses / Procedures Referred By Contac t Referred To Contact Diagnoses Osteoarthritis of left hip, unspecified osteoarthritis type Primary osteoarthritis of right hip Procedures FL Fluoro Guided Aspiration or Injection Large Joint Bilateral Monty Kenny MD [address] [place] [address] Phone: tel: fax: [facility] [address] [address] Referral ID Status Reason Start Date Expiration Date Visits Re quested Visits Authorized [id number] Closed 12/20/2023 01/18/2025 1 1 Encounter Details Date Type Department Care Team (Late st Contact Info) Description 01/03/2024 7:15 AM CHUCKER - 01/03/2024 11:59 PM CHUCKER Hospital Encounter [facility] Radiology [address] [id number] Windy Tay MD [address] [facility] [address] [place] [address] Abdulaziz Brannon MD [address] [facility] [address] [place] [address] Osteoarthritis of left hip, unspecified osteoarthritis type; Primary osteoarthritis of right hip Discharge Disposition: Discharge to home or self care Social History Tobacco Use Types Packs/Day Years Used Date Smoking Tobacco: Never Smokeless Tobacco: Never Alcohol Use Standard Drinks/Week Comments Not Currently 0 (1 standard drink = 0.6 oz pur e alcohol) Comments Unknown Sex and Gender Information Value Date Recorded Sex Assigned at Not on file Legal Sex Female 1:14 AM CHUCKER Gender Identity Female 05/04/2020 3:33 PM CDT Sexual Orientation Not on file 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 A slight increase in your presenting pain for up to 24 hours following the injection. Elevated blood sugar. If you are diabetic, increases in your blood glucose readings may occur for several days and you should monitor these readings closely. Insomnia (sleep difficulty) Restlessness Facial flushing Lightheadedness or dizziness could rarely persist for a few days. Headache, temporary. 2. Possible common complications to be aware of following an injection include: IF YOU BELIEVE YOU ARE EXPERIENCING ANY OF THE FOLLOWING COMPLICATIONS, NOTIFY THE RADIOLOGIST WHO PERFORMED YOUR PROCEDURE. Infection: increasing redness, warmth, swelling, or drainage over the injection site. Developing a fever over 101 degrees Fahrenheit. Pain that is much worse than prior to the injection within 48 - 72 hours following the injection. Bleeding/Bruising: obvious bleeding to the skin surface, increasing discoloration below the skin, or an increasing lump under the injection site. Hyperglycemia (Symptoms of very high blood sugar) can include: dizziness; lightheadedness; blurred vision; excessive thirst, hunger, and urination. - Any atypical, persistent, or unrelenting headache. If you have stopped your blood thinners in preparation for your procedure, you need to contact the prescribing physician before restarting the medication. The blood thinner may be restarted 4 hours after the procedure with your physician???s approval. Our recommendation is to avoid COVID-19 vaccine for 2 weeks post corticosteroid injection. [facility] Office Number: Office Hours: Saturday - Saturday 9 a.m. - 4 p.m. After Hours call: This is the Emergency Room x-ray reading room. Ask the emergency room radiologist to contact the physician that performed the procedure. KER documented in this encounter Medications at Time [...] mouth 2 (two) times a day 04/11/2021 hydroxychloroqui ne (PLAQUENIL) 200 mg tablet Take 1 tablet (200 mg total) by mouth 2 (two) times a day 180 tablet 1 01/01/2024 levothyroxine (SYNTHROID) 112 mcg tablet Take 1 tablet (112 mcg total) by mouth daily 11/11/[address] (PROTONIX) 40 mg EC tablet [...] as needed for pain 21 tablet 07/03/2022 dilTIAZem CD (CARDIZEM CD) 300 mg 24 hr capsule TAKE 1 CAPSULE(300 MG) BY MOUTH DAILY 90 capsule 2 09/13/2023 4 furosemide (LASIX) 40 mg tablet Take 1 tablet (40 mg total) by mouth 2 (two) times a day 180 tablet 2 08/20/2023 4 metoprolol XL (TOPROL-XL) 100 mg 24 hr tablet Take 1 tablet (100 mg total) by mouth daily To be taken with Metoprolol 50 mg tablet once daily 30 tablet 11 06/17/2023 4 metoprolol XL (TOPROL-XL) 50 mg extended release tablet Take 1 tablet (50 mg total) by mouth daily To be taken with Metoprolol 100 mg tablet once daily 30 tablet 11 06/17/2023 4 predniSONE (DELTASONE) 2.5 mg tablet Take 1 tablet (2.5 mg) by mouth daily 90 tablet 1 01/01/2024 4 predniSONE (DELTASONE) 5 mg tablet Start 01/06/24: Take 4 tabs/day x 4 days, 3 tabs/day x 4 days, 2 tabs/day x 4 days, and then 1 tab/day x 4 days. 40 tablet 01/01/2024 4 sacubitriL-valsa rtan (ENTRESTO) 24-26 mg tabletIndication s:chronic heart failure Take 1 tablet by mouth 2 (two) times a day 60 tablet 11 04/12/2023 4 documented as of this encounter Discharge Disposition Disposition Code Departure Means Destination Discharge to home or self care documented in this encounter Miscellaneous Notes * Post-Procedure Note - Adriano Perez MD - 01/03/2024 8:00 AM CHUCKER Radiology Brief Post Procedure Note Attending: Jasvir Contracts Administrator: Ana Sedation/Anesthesia: Local Pre-Op/Pre-Procedure Diagnosis: Bilateral hip pain Post-Op/Post-Procedure Diagnosis: Same Procedure Performed: Bilateral hip steroid injection Procedure Findings: Technical success Complications: None Estimated Blood Loss: None Specimens: None Condition: Stable Full report to follow. KER documented in this encounter Plan of Treatment Not on file documented as of this encounter Procedures Procedure Name Priority Date/Time Associated Diagnosis Comments FLUORO GUIDED ASPIRATION OR INJECTION LARGE JOINT BILATERAL Schedule Routine, Read Routine (OP Routine) 01/03/2024 9:21 AM CHUCKER Osteoarthritis of left hip, unspecified osteoarthritis type Primary osteoarthritis of right hip documented in this encounter Results * FL Fluoro Guided Aspiration or Injection Large Joint Bilateral (01/03/2024 9:21 AM CHUCKER) Anatomical Region Laterality Modality Body Bilateral X-Ray Angiograph y 01/03/2024 9:57 AM CHUCKER Impressions 01/03/2024 4:22 PM CHUCKER 1. ??Bilateral hip joint injection under fluoroscopic guidance with no change in the patient's presenting pain at the conclusion of the procedure. Dictated by: Adriano Perez M.D. The radiology attending physician has personally reviewed this study, and had reviewed and/or edited this written report and agrees with it. Electronically signed by: Kieran Tay MD Narrative 01/03/2024 4:22 PM CHUCKER EXAMINATION: ??Bilateral joint injection under fluoroscopic guidance HISTORY: Bilateral hip pain ATTENDING PRESENCE: Dr. Kieran Tay MD, the attending radiologist, was present from the beginning to the end of the procedure. SEDATION: The patient did not require conscious sedation for the procedure. TECHNIQUE: ??The risks, benefits and alternatives were discussed and informed consent was obtained. ??Prior to beginning the procedure, Garland Protocol was performed to confirm the patient's [...] was obtained. Prior to beginning the procedure, Garland Protocol was performed to confirm the patient's [...] by: Kieran Tay MD Monty Kenny MD IM FLUOROSCOPY PROCEDURES Final Result documented in this encounter Visit Diagnoses Diagnosis Osteoarthritis of left hip, unspecified osteoarthritis type Primary osteoarthritis of right hip documented in this encounter Administered Medications Inactive Administered Medications - up to 3 most recent administrations Medication Order MAR Action Action Date Dose Rate Site BUPivacaine (MARCAINE) 0.25 % (2.5 mg/mL) preservative free injection As needed, Starting on Sat01/03/24 at 0904, Intra-Procedure (IR) Given 01/03/2024 9:04 AM CHUCKER 5 mL ioversoL (OPTIRAY 350) injection As needed, Starting on Sat01/03/24 at 0922, Intra-Op Given 01/03/2024 9:22 AM CHUCKER 8 mL triamcinolone (KENALOG) 40 mg/mL injection As needed, Starting on Sat01/03/24 at 0908, Intra-Op Given 01/03/2024 9:08 AM CHUCKER 80 mg documented in this encounter Care Teams Customer Engineer Relationship Specialty Start Date End Date Timothy Donis MD PCP - General Family Practice 04/12/23 Ni Armas, RN Registered Nurse Pulmonary Disease 01/11/23 documented as of this encounter
--- OUTSIDE RECORDS SUMMARY | 2024-11-15 05:54 | XMS_ITS | Encounter Summary ---
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) [...] on file Legal Sex Female 1:14 AM DENTAL LABORATORY TECHNOLOGY TEACHER Gender Identity Female 05/04/2020 3:33 PM CDT Sexual Orientation Not on file 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 Not on file [...] Procedure Name Priority Date/Time Associated Diagnosis Comments ERYTHROCYTE SEDIMENTATION RATE Routine 05/05/2024 9:16 AM CDT 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) documented in this encounter Results * Erythrocyte sedimentation rate (05/05/2024 9:16 AM CDT) Erythrocyte sedimentation rate 28 1 - 30 mm/hr Blood 05/05/2024 9:16 AM CDT 05/05/2024 12:59 PM CDT us Sandra Bauman MD LAB BLOOD ORDERABLES Final Resul t [facility] Department [place] [address] documented in this encounter Visit Diagnoses Diagnosis 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
--- OUTSIDE RECORDS SUMMARY | 2024-11-15 05:54 | XMS_ITS | Encounter Summary ---
Author Organization [facility] Healthcare Address [address] [place] [address] Care Team Providers Care Votator Machine Operator Name Role Phone Ni Armas RN Unavailable Lizette Timothy Land MD Primary Care Provider [phone] Encounter Details Date Type Department Care Team (Late st Contact Info) Description 11/04/2023 Telephone [facility] Cardiology [address] [place] [address] Myles Reyes MD [address] [facility] [address] [place] [address] Social History Tobacco Use Types Packs/Day Years Used Date Smoking Tobacco: Never Smokeless Tobacco: Never Alcohol Use Standard Drinks/Week Comments Not Currently 0 (1 standard drink = 0.6 oz pur e alcohol) Comments Unknown Sex and Gender Information Value Date Recorded Sex Assigned at Not on file Legal Sex Female 1:14 AM PRIMER POWDER BLENDER WET Gender Identity Female 05/04/2020 3:33 PM CDT Sexual Orientation Not on file 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 Pt does have a humidifier on with her oxygen. They are also notifying pts PCP. Advised her to call us back ifthis continues to occur-she verbalized understanding. ER POWDER BLENDER WET * Telephone Encounter - Leonie Vega - 11/04/2023 12:55 PM CST Mae states early this morning pts nose started bleeding a little bit then it stopped. States all of a sudden it started bleeding again like a faucet. States they did leave a message with her PCP but wanted AD to be aware as well. Contact: ER POWDER BLENDER WET documented in this encounter Plan of Treatment Not on file documented as of this encounter Visit Diagnoses Not on filedocumented in this encounter Care Teams Votator Machine Operator Relationship Specialty Start Date End Date Timothy Donis MD PCP - General Family Practice 04/12/23 Ni Armas, BILLY Registered Nurse Pulmonary Disease 01/11/23 documented as of this encounter
--- OUTSIDE RECORDS SUMMARY | 2024-11-15 05:54 | XMS_ITS | Encounter Summary ---
Author Organization [facility] Address [address] [place] [address] Phone Care Team Providers Care Animal Biologist Name Role Phone Ni Armas RN Unavailable Lizette Timothy Land MD Primary Care Provider [phone] Encounter Details Date Type Department Care Team (Late st Contact Info) Description 05/03/2023 Documentation [facility] Pulmonary [address] [facility] Advanced Medicine 8th [place] [address] [place] [address] Ni Armas RN Social History Tobacco Use Types Packs/Day Years Used Date Smoking Tobacco: Never Smokeless Tobacco: Never Alcohol Use Standard Drinks/Week Comments Not Currently 0 (1 standard drink = 0.6 oz pur e alcohol) Comments Unknown Sex and Gender Information Value Date Recorded Sex Assigned at Not on file Legal Sex Female 1:14 AM 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 Nico Mendez, Ni Traylor, BILLY Rescheduled 09/19/23 @ 3:15 PFT 4:00 Clinic Spoke w pt daughter 05/03 @ 1:50 documented in this encounter Plan of Treatment Not on file documented as of this encounter Visit Diagnoses Not on filedocumented in this encounter Care Teams Animal Biologist Relationship Specialty Start Date End Date Timothy Donis MD PCP - General Family Practice 04/12/23 Ni Armas, RN Registered Nurse Pulmonary Disease 01/11/23 documented as of this encounter
--- OUTSIDE RECORDS SUMMARY | 2024-11-15 05:54 | XMS_ITS | Encounter Summary ---
Author Organization [facility] Address [address] [place] [address] Phone Care Team Providers Care Rn Military Name Role Phone Ni Armas RN Unavailable Lizette Timothy Land MD Primary Care Provider [phone] Reason for Referral * Procedure (Routine) - Closed Specialty Diagnoses / Procedures Referred By Contac t Referred To Contact Pulmonology Diagnoses ILD (interstitial lung disease) (CMS/HCC) ([facility]) Procedures Pulmonary Function Test -[facility] Adult PFT Lab- CAM-8D; Spirometry, Oxygen Assessment Titration Renetta Goodson MD [address] [place] [address] Phone: tel: fax: Referral ID Status Reason Start Date Expiration Date Visits Re quested Visits Authorized [id number] Closed 09/19/2023 11/24/2024 1 1 Reason for Visit * Procedure (Routine) - Closed Specialty Diagnoses / Procedures Referred By Contac t Referred To Contact Pulmonology Diagnoses ILD (interstitial lung disease) (CMS/HCC) ([facility]) Procedures Pulmonary Function Test -[facility]FT [facility]- CAM-8D; Spirometry, Oxygen Assessment Titration Renetta Goodson MD [address] [place] [address] Phone: tel: fax: Referral ID Status Reason Start Date Expiration Date Visits Re quested Visits Authorized [id number] Closed 09/19/2023 11/24/2024 1 1 Encounter Details Date Type Department Care Team (Latest Contact Info) Description 03/26/2024 12:56 PM CDT - 03/26/2024 11:59 PM CDT Hospital Encounter [facility] Pulmonary [address] [facility] [address] [place] [address] ILD (interstitial lung disease) ([facility]) ([facility]) Discharge Disposition: Discharge to home or self care Social History Tobacco Use Types Packs/Day Years Used Date Smoking Tobacco: Never Smokeless Tobacco: Never Alcohol Use Standard Drinks/Week Comments Not Currently 0 (1 standard drink = 0.6 oz pur e alcohol) Comments Unknown Sex and Gender Information Value Date Recorded Sex Assigned at Not on file Legal Sex Female 1:14 AM REVIEW SPECIALIST Gender Identity Female 05/04/2020 3:33 PM CDT Sexual Orientation Not on file 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 Not on file Not [...] Diagnosis Comments PULMONARY FUNCTION TEST (PFT) Routine 04/08/2024 10:01 AM CDT ILD (interstitial lung disease) (CMS/HCC) ([facility]) documented in this encounter Results * Pulmonary Function Test - (04/08/2024 10:01 AM CDT) FVC PRE 0.98 L [facility] FVC %PRE PRED 39 % [facility] FEV1 PRE 0.81 L [facility] FEV1 %PRE PRED 42 % [facility] FEV1/FVC PRE 83.4 % [facility] Anatomical Region Laterality Modality PFT 03/26/2024 1:24 PM CDT Impressions 03/26/2024 4:03 PM CDT There is a severe restrictive ventilatory defect. However measurement of lung volumes is suggested to confirm this if clinically indicated. Compared with study dated 09/19/23 , there has been no significant interval change. The attending pulmonary physician certifies a physician presence in the [facility] during the administration of aerosolized bronchodilator. The attending pulmonary physician certifies that he/she has reviewed and interpreted the graphic and numerical data of this pulmonary function study and agrees with the written final report. The lower limit of normal for PO2 and %HbO2 is age dependent. However, the [facility] Pulmonary Function Laboratory defines hypoxemia as a PO2 <55 or a %HbO2 <89. Narrative 03/26/2024 4:03 PM CDT Table formatting from the original result was not included. [facility] Division of Pulmonary & Critical Care Medicine [address] [place] [address]; [facility]; [place], [place] ??[address]; [phone] Pulmonary Function Laboratory Pulmonary Stress Test Simple/Oxygen Assessment Patient: Ayanna Cash Date: 03/26/2024 : 1950 Ht: Wt: 239 LBS Time (min) Distance (ft)/ Ozuna O2 L/M SpO2 HR Kaitlin* BP FEV1 % Pred Rest: ??RA 96 55 0 110/69 0.81 41 % ? Walk/Bike: 1 ??RA 94 92 0 ? 2 ? 3 ? 4 ? 5 ? 6 min 0 sec ? Recovery: 1 ??RA/2 87/91 62/58 0 127/66 ?? 3 ??2 96 54 0 ?*Kaitlin rate of perceived exertion (1-10 dyspnea scale) ??Victor M, CHEST 2003; [id number] Walk Test Summary: Six Minute Walk Distance: 30 ft Six-minute Walk Work [distance (m) x body wt (kg)]: 989 kg.m (normal >60,000kg.m) Oxygen required to maintain SpO2 greater than 90% during six minutes of walkin L/M Comments: PATIENT WALK ENDED DUE TO LEG PAIN TITRATED WHILE SITTING. Interpretation: Breathing room air, SpO2 is adequate at rest and during exercise sufficient to increase pulse from 55 to 92 b/min, SpO2 falls to hypoxemic levels. On this basis, SpO2 is adequate at rest breathing room air and while walking breathing supplemental O2 at 2 L/min. Noam Aguillon M.D. By signing this report, the attending pulmonary physician certifies that he/she has personally reviewed and interpreted the graphic and numerical data associated with this pulmonary function study and has reviewed and /or edited a preliminary draft report and agrees with the written final report. PFT performed at:->[facility] Adult PFT Lab- CAM-8D Procedure:->Spirometry Procedure:->Oxygen Assessment Titration Pulmonary Function Test Interpretation SPIROMETRY: There is a decrease in expiratory airflow at middle lung volumes. The FEV-I and FVC are reduced in a pattern suggestive of a restrictive abnormality. FLOW VOLUME LOOPS: The inspiratory loop is appropriate for the expiratory flow abnormality. Renetta Goodson MD PFT ORDERABLES Final Res ult documented in this encounter Visit Diagnoses Diagnosis ILD (interstitial lung disease) (CMS/HCC) (HCC) Postinflammatory pulmonary fibrosis documented in this encounter Care Teams Rn Military Relationship Specialty Start Date End Date Timothy Donis MD PCP - General Family Practice 04/12/23 Ni Armas, RN Registered Nurse Pulmonary Disease 01/11/23 documented as of this encounter
--- OUTSIDE RECORDS SUMMARY | 2024-11-15 05:54 | XMS_ITS | Encounter Summary ---
Author Organization 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); Arthropathy, unspecified Social History Tobacco Use Types Packs/Day Years Used Date Smoking Tobacco: Never Smokeless Tobacco: Never Alcohol Use Standard Drinks/Week Comments Not Currently 0 (1 standard drink = 0.6 oz pur e alcohol) Comments Unknown Sex and Gender Information Value Date Recorded Sex Assigned at Not on file Legal Sex Female 1:14 AM SEWER SYSTEM SUPERVISOR Gender Identity Female 05/04/2020 3:33 PM CDT Sexual Orientation Not on file 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 Not on file Not on file documented as of this encounter Plan of Treatment Not on file documented as of this encounter Procedures Procedure Name Priority Date/Time Associated Diagnosis Comments CBC WITH AUTO DIFFERENTIAL Routine 05/05/2024 9:16 AM CDT 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) FERRITIN Routine 05/05/2024 9:16 AM CDT 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) Arthropathy, unspecified CREATINE KINASE (CK), TOTAL Routine 05/05/2024 9:16 AM CDT 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) COMPREHENSIVE METABOLIC PANEL Routine 05/05/2024 9:16 AM CDT 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) documented in this encounter Results * Ferritin (05/05/2024 9:16 AM CDT) Ferritin 164.2 10.0 - 291.0 ng/mL [facility] Blood 05/05/2024 9:16 AM CDT 05/05/2024 11:12 AM CDT Sandra Bauman MD LAB BLOOD ORDERABLES Final Resul t Performing Organization Address [facility] Co de Phone Number [facility] * Creatine kinase (CK), total (05/05/2024 9:16 AM CDT) CK, Total 53 26 - 308 IU/L [facility] Blood 05/05/2024 9:16 AM CDT 05/05/2024 11:12 AM CDT Sandra Bauman MD LAB BLOOD ORDERABLES Final Resul t Performing Organization Address [facility] Co de Phone Number [facility] * (ABNORMAL) [...] 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
--- OUTSIDE RECORDS SUMMARY | 2024-11-15 05:54 | XMS_ITS | Encounter Summary ---
Author Organization [facility] Healthcare Address [address] [place] [address] Care Team Providers Care Technician Inventory Specialist Name Role Phone Ni Armas RN Unavailable Lizette Timothy Land MD Primary Care Provider [phone] Reason for Referral * Diagnostic Imaging (Routine) - Closed Specialty Diagnoses / Procedures Referred By Contac t Referred To Contact Diagnoses Left hip pain Procedures XR Pelvis 1 or 2 Views Monty Kenny MD [address] [place] [address] Phone: tel: fax: [facility] Radiology [address] [place] [phone] Phone: tel: Referral ID Status Reason Start Date Expiration Date Visits Re quested Visits Authorized [id number] Closed 12/12/2023 01/10/2025 1 1 D SERVICE MANAGER Reason for Visit * Diagnostic Imaging (Routine) - Closed Specialty Diagnoses / Procedures Referred By Contac t Referred To Contact Diagnoses Left hip pain Procedures XR Pelvis 1 or 2 Views Monty Kenny MD [address] [place] [address] Phone: tel: fax: [facility] Radiology [address] [place] [phone] Phone: tel: Referral ID Status Reason Start Date Expiration Date Visits Re quested Visits Authorized [id number] Closed 12/12/2023 01/10/2025 1 1 Encounter Details Date Type Department Care Team (Latest Contact Info) Description 12/20/2023 7:05 AM FIELD SERVICE MANAGER - 12/20/2023 11:59 PM FIELD SERVICE MANAGER Hospital Encounter [id number] [address] [facility] [address] [place] [address] Left hip pain Discharge Disposition: Discharge to home or self care Social History Tobacco Use Types Packs/Day Years Used Date Smoking Tobacco: Never Smokeless Tobacco: Never Alcohol Use Standard Drinks/Week Comments Not Currently 0 (1 standard drink = 0.6 oz pur e alcohol) Comments Unknown Sex and Gender Information Value Date Recorded Sex Assigned at Not on file Legal Sex Female 1:14 AM FIELD SERVICE MANAGER Gender Identity Female 05/04/2020 3:33 PM CDT Sexual Orientation Not on file 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 Not on file Not [...] a day 180 tablet 2 08/20/2023 4 hydroxychloroqui ne (PLAQUENIL) 200 mg tablet Take 1 tablet (200 mg total) by mouth 2 (two) times a day 11/26/2019 4 metoprolol XL (TOPROL-XL) 100 mg 24 [...] 06/17/2023 4 predniSONE (DELTASONE) 2.5 mg tablet TAKE 1 TABLET(2.5 MG) BY MOUTH DAILY 30 tablet 2 11/27/2023 4 sacubitriL-valsa rtan (ENTRESTO) 24-26 mg tabletIndication [...] Name Priority Date/Time Associated Diagnosis Comments XR PELVIS 1 OR 2 VIEWS Schedule Routine, Read Routine (OP Routine) 12/20/2023 7:17 AM FIELD SERVICE MANAGER Left hip pain documented in this encounter Results * XR Pelvis 1 or 2 Views (12/20/2023 7:17 AM FIELD SERVICE MANAGER) Anatomical Region Laterality Modality Body, Pelvis N/A Computed Radiogr aphy 12/20/2023 7:23 AM FIELD SERVICE MANAGER Impressions 12/20/2023 7:23 AM FIELD SERVICE MANAGER 1. ??Severe bilateral hip osteoarthritis. Electronically signed by: Gregory Jacobo MD Narrative 12/20/2023 7:23 AM FIELD SERVICE MANAGER EXAMINATION: XR PELVIS 1 OR 2 VIEWS [...] by: Gregory Jacobo MD Monty Kenny MD IMG XR PROCEDURES Final Result documented in this encounter Visit Diagnoses Diagnosis Left hip pain Pain in joint, pelvic region and thigh documented in this encounter Care Teams Technician Inventory Specialist Relationship Specialty Start Date End Date Timothy Donis MD PCP - General Family Practice 04/12/23 Ni Armas, RN Registered Nurse Pulmonary Disease 01/11/23 documented as of this encounter
--- OUTSIDE RECORDS SUMMARY | 2024-11-15 05:54 | XMS_ITS | Encounter Summary ---
Author Organization [facility] Address [address] [place] [address] Phone Care Team Providers Care Bench Patternmaker Metal Name Role Phone Ni Armas RN Unavailable Lizette Timothy Land MD Primary Care Provider [phone] Encounter Details Date Type Department Care Team (Late st Contact Info) Description 04/30/2023 Documentation [facility] Pulmonary [address] [facility] 8th [place] [address] [place] [address] Ni Armas, BILLY Social History Tobacco Use Types Packs/Day Years Used Date Smoking Tobacco: Never Smokeless Tobacco: Never Alcohol Use Standard Drinks/Week Comments Not Currently 0 (1 standard drink = 0.6 oz pur e alcohol) Comments Unknown Sex and Gender Information Value Date Recorded Sex Assigned at Not on file Legal Sex Female 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 Order placed. Mailed to address listed in patients chart Denita Correa MD Broccard, Jessica Therese, RN Please mail her daughter a script for oxygen at 4 lpm with exertion. She is looking into buying herown POC. documented in this encounter Plan of Treatment Not on file documented as of this encounter Visit Diagnoses Not on filedocumented in this encounter Care Teams Bench Patternmaker Metal Relationship Specialty Start Date End Date Timothy Donis MD PCP - General Family Practice 04/12/23 Ni Armas, RN Registered Nurse Pulmonary Disease 01/11/23 documented as of this encounter
--- OUTSIDE RECORDS SUMMARY | 2024-11-15 05:54 | XMS_ITS | Encounter Summary ---
Author Organization [facility] [place] [facility] Address [address] [facility] [address] [place] [address] Phone Care Team Providers Care Hogshead Opener Name Role Phone Ni Armas RN Unavailable Lizette Timothy Land MD Primary Care Provider [phone] Reason for Referral * Procedure (Routine) - Closed Specialty Diagnoses / Procedures Referred By Contmeghana t Referred To Contact Diagnoses ILD (interstitial lung disease) (CMS/HCC) (HCC) STARR on CPAP Procedures Pulmonary Function Test -[facility]- [facility]; Spirometry, Oxygen Assessment Titration Denita Correa MD [address] [place] [address] Phone: tel: fax: Referral ID Status Reason Start Date Expiration Date Visits Re quested Visits Authorized [id number] Closed 04/26/2023 05/25/2024 1 1 Encounter Details Date Type Department Care Team (Late st Contact Info) Description 04/26/2023 9:45 AM CDT Office Visit [facility] Pulmonary [address] 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 Gender Identity Female 05/04/2020 3:33 PM CDT Sexual Orientation Not on file 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 Not on file Not on file documented as of this encounter Last Filed Vital Signs Vital Sign Reading Time Taken Comments Blood Pressure 114/64 04/26/2023 9:22 AM CDT Pulse 57 04/26/2023 9:22 AM CDT Temperature 36.4 ??C (97.5 ??F) 04/26/2023 9 :22 AM CDT Respiratory Rate 18 04/26/2023 9:22 AM CDT Oxygen Saturation 100% 04/26/2023 9:2 2 AM CDT 2 liters pulse while sitting Inhaled Oxygen Concentration - - Weight 103.4 kg (228 lb) 04/26/2023 9:2 2 AM CDT Height 157.5 cm (5' 2 ) 04/26/2023 9:22 AM CDT Body Mass Index 41.7 04/26/2023 9:22 AM CDT documented in this encounter Progress Notes * Denita Correa MD - 04/26/2023 9:45 AM CDT [facility], PULMONARY MEDICINE, [address] [place] [address], 8TH FLOOR, [facility], [address] [place] [address] AYANNA CASH : 1950 ANGELICA: 04/26/2023 PROBLEM LIST: Rheumatoid arthritis, seropositive, previously on [...] failure exacerbation. DJD of bilateral hips Osteopenia INTERVAL HISTORY Since last being seen in clinic, patient has generally been doing poorly. She has been hospitalizedmultiple times for heart failure exacerbations complicated by chronic kidney disease, GI issues andafib. She was discharged to inpatient rehab. She is now using 2L of O2 at rest and 2-4L with exertion. She still is having productive cough, but she feels like she is improved from prior. She is still feeling weak and having difficulty doing any activities, but is working with PT. She is not using her CPAP machine, but is using 2L O2 while sleeping. It is too difficult to switch from CPAP to O2 in the middle of the night when she needs to get up to use the bathroom. Now back on Orencia, prednisone 2.5 mg qday, stopped Bactrim. Current Outpatient Medications Medication Sig Dispense Refill [...] capsule (300 mg total) by mouth daily DULoxetine DR (CYMBALTA) [...] total) by mouth daily metoprolol XL (TOPROL-XL) 25 mg extended release tablet Take 2 tablets (50 mg total) by mouth daily(Patient taking differently: Take 6 tablets (150 mg total) by mouth daily) 60 tablet 11 ondansetron (ZOFRAN) 4 mg tablet Take 1 tablet (4 mg total) by mouth every 8 (eight) hours as needed for nausea or vomiting pantoprazole DR (PROTONIX) 40 mg EC tablet Take 1 tablet (40 mg total) by mouth daily potassium chloride ER (KLOR-CON) 20 mEq CR tablet 1 tablet (20 mEq total) 2 (two) times a day pravastatin (PRAVACHOL) 80 mg tablet Take 1 tablet (80 mg total) by mouth daily predniSONE (DELTASONE) 2.5 mg tablet Take 1 tablet (2.5 mg) by mouth daily 30 tablet 2 traMADoL (ULTRAM) 50 mg tablet Take 1 tablet (50 mg total) by mouth every 8 (eight) hours as neededfor pain 21 tablet 0 furosemide (LASIX) 20 mg tablet Take 3 tablets (60 mg total) by mouth daily (Patient not taking: Reported on 04/26/2023) 270 tablet 3 levalbuterol (XOPENEX) 1.25 mg/3 mL nebulizer solution Take 3 mL (1.25 mg total) by nebulization every 6 (six) hours as needed for wheezing (Patient not taking: Reported on 04/26/2023) predniSONE (DELTASONE) 10 mg tablet Take 4 tabs (40 mg) po every day for 5 days, then 3 tabs (30 mg) po every day for 5 days, then 2 tabs (20 mg) po every day for 5 days, then 1 tab (10 mg) po every day for 5 days. (Patient not taking: Reported on 04/12/2023) 50 tablet 0 sacubitriL-valsartan (ENTRESTO) 24-26 mg tablet Take 1 tablet by mouth 2 (two) times a day 60 tablet 11 sulfamethoxazole-trimethoprim (Bactrim DS) 800-160 mg per tablet Take one po on Mon, Wed, Fri (Patient not taking: Reported on 04/12/2023) 12 tablet 5 No current facility-administered medications for this visit. No Known Allergies REVIEW OF SYSTEMS: 12 point obtained, pertinent positive and negatives in HPI Objective Vitals: Vitals BP 114/64 Pulse 57 Temp 36.4 ??C (97.5 ??F) (Oral) Resp 18 Ht 157.5 cm (5' 2 ) Wt 103.4 kg (228 lb) SpO2 100% BMI 41.70 kg/m?? Wt Readings from Last 3 Encounters: 04/26/23 103.4 kg (228 lb) 04/12/23 104.3 kg (230 lb) 03/08/23 105.2 kg (232 lb) Physical examination: General: NAD, wheelchair HEENT: NCAT, EOMI Neck: no adenopathy CV: crackles bilateral bases Lungs: diminished bilaterally Abd: +BS, soft, NT, ND Ext: bilateral 1+ pitting edema Neuro: A&O x 3 Psych: normal mood Pulmonary Function Testing Spirometry Date FVC,% pred FEV1, % pred FEV1/FVC TLC, % pred DLCO, % pred 04/2023 0.95, 38% 0.79, 40% 83% 02/2023 1.36 0.99 73% 12/2022 0.89, 38% 0.86, 43% 88% 05/2022 1.40, 55% 1.21, 62% 87% 02/2022 1.26, 49% 1.10, 55% 87% 10/2021 1.22, 47% 1.11, 56% 91% 2.63, 55% 45% Restrictive defect, worsened from prior, stable from 12/2022 Six Minute Walk Test Patient walked 50 feet in 6 minutes with a resting heart rate of 58 and resting oxygen saturation of 94%. Oxygen saturation trixie was 95%. Concluding heart rate of 120. Concluding Kaitlin score 5. Imaging CT Chest 01/18/23 IMPRESSION: 1. Interstitial lung disease, with pattern most suggestive of nonspecific interstitial pneumonia. No significant interval change compared to prior examination in October 2021. 2. Compression deformities within the thoracic spine, likely at least subacute if not chronic, but new compared to prior examination in October 2021. Dedicated thoracic spine imaging can be obtained as warranted clinically. IMPRESSION Ms. Cash is a 73-year-old woman with a history of underlying rheumatoid arthritis and associated interstitial lung disease, who returns for follow-up after multiple hospitalizations. Her HRCT showed relatively stable fibrotic disease at that time. She has been restarted on Orencia and continues on 2.5mg prednisone. Unfortunately, her dyspnea is likely multifactorial and driven by deconditioning, obesity, CHF, in addition to fibrotic lung disease. PLAN - Continue Orencia, hydroxychloroquine, 2.5mg prednisone - Continue 2-4L O2 with exertion, will send script for O2 concentrator to daughter as they may wantto buy their own portable concentrator. Given she is not able to adjust the concentrator when she is home by herself, discussed it is okay to leave the concentrator at 4 lpm. - Agree with continued rehab/PT - Discussed options for wearing CPAP at night, encouraged to use. Discussed once she is home using a tank or portable concentrator to get to the bathroom at night rather than trying to disconnect main concentrator from cpap - Repeat spirometry and 6MW prior to next appt Return to clinic in 4 months Ava Carey DO Pulmonary/Critical Care Fellow TEACHING PHYSICIAN ADDENDUM: I have seen and examined the patient with Dr. Carey on 04/26/2023. I agree with the findings and plan of care as documented in the resident/fellow's note. I have edited the note. Denita Correa MD pie bottomer Diplomate in Sleep Medicine, [place] [employer] of Internal [employer] documented in this encounter Plan of Treatment Not on file documented as of this encounter Results * Pulmonary Function Test - (09/19/2023 3:18 PM CDT) FVC PRE 1.01 L [facility] FVC %PRE PRED 40 % [facility] FEV1 PRE 0.86 L [facility] FEV1 %PRE PRED 44 % [facility] FEV1/FVC PRE 84.9 % [facility] Anatomical Region Laterality Modality PFT 09/19/2023 2:59 PM CDT Impressions 09/23/2023 2:28 PM CDT There is a severe restrictive ventilatory defect. However measurement of lung volumes is suggested to confirm this if clinically indicated. Compared with study dated 04/26/2023 , there has been no significant interval change. Dieter Ramírez MD The attending pulmonary physician certifies a physician presence in the [facility] during the administration of aerosolized bronchodilator. The attending pulmonary physician certifies that he/she has reviewed and interpreted the graphic and numerical data of this pulmonary function study and agrees with the written final report. The lower limit of normal for PO2 and %HbO2 is age dependent. However, the [facility] Pulmonary Function Laboratory defines hypoxemia as a PO2 <55 or a %HbO2 <89. Narrative 09/23/2023 2:28 PM CDT Table formatting from the original result was not included. [facility] Division of Pulmonary & Critical Care Medicine [address] [place] [address]; [place] [address] [facility]; [place], [place] ??[address]; [phone] Pulmonary Function Laboratory Pulmonary Stress Test Simple/Oxygen Assessment Patient: Ayanna Cash Date: 09/19/2023 : 1950 Ht: 62 IN Wt: 229 LBS Time (min) Distance (ft)/ Ozuna O2 L/M SpO2 HR Kaitlin* BP FEV1 % Pred Rest: ??RA 96 61 0 119/58 0.86 44% ? Walk/Bike: 1 ??RA 94 114 3 ? 2 ? 3 ? 4 ? 5 ? 6 min 0 sec ? Recovery: 1 ??RA/2 88/96 86/84 4 109/59 ?? 3 ?*Kaitlin rate of perceived exertion (1-10 dyspnea scale) ??Victor M, CHEST 2003; [id number] Walk Test Summary: Six Minute Walk Distance: 40 ft Six-minute Walk Work [distance (m) x body wt (kg)]: 1264 kg.m (normal >60,000kg.m) Oxygen required to maintain SpO2 greater than 90% during six minutes of walkin L/M Comments: O2A- PATIENT WALKED WITH ROLLATOR. PATIENT STOPPED DUE TO LEG WEAKNESS. PATIENT O2 DROPPED ONCE SHE SAT AFTER WALK. Interpretation: Breathing room air, SpO2 is normal at rest. During 1 minute of exercise sufficient to increase pulse from 61 to 114 b/min, SpO2 is stable, though it fell to a hypoxemic level during recovery. On this basis, SpO2 is adequate at rest breathing room air and while walking breathing supplemental O2 at 2 L/min. Dieter Ramírez M.D. By signing this report, the attending pulmonary physician certifies that he/she has personally reviewed and interpreted the graphic and numerical data associated with this pulmonary function study and has reviewed and /or edited a preliminary draft report and agrees with the written final report. PFT performed at:->[facility] Adult PFT Lab- [facility] Procedure:->Spirometry Procedure:->Oxygen Assessment Titration Pulmonary Function Test Interpretation SPIROMETRY: There is a decrease in expiratory airflow at high lung volumes. The FEVI to FVC ratio is normal. The FEV-I and FVC are reduced in a pattern suggestive of a restrictive abnormality. However, measurement of lung volumes is suggested to confirm this if clinically indicated. FLOW VOLUME LOOPS: The inspiratory loop is appropriate for the expiratory flow abnormality. PULSE OXIMETRY: See Oxygen Assessment/Cardiopulmonary Exercise Study-Simple Denita Correa MD PFT ORDERABLES Final Result documented in this encounter Visit Diagnoses Diagnosis ILD (interstitial lung disease) ([facility]) ([facility])- Primary Postinflammatory pulmonary fibrosis STARR on CPAP ILD (interstitial lung disease) ([facility]) ([facility]) Postinflammatory pulmonary fibrosis STARR on CPAP documented in this encounter Historical Medications * This list may reflect changes made after this encounter. ondansetron (ZOFRAN) 4 mg tablet Take 1 tablet (4 mg total) by mouth every 8 (eight) hours as needed for nausea or vomiting 06/26/2023 added in this encounter Care Teams Hogshead Opener Relationship Specialty Start Date End Date Timothy Donis MD PCP - General Family Practice 04/12/23 Ni Armas, RN Registered Nurse Pulmonary Disease 01/11/23 documented as of this encounter
--- OUTSIDE RECORDS SUMMARY | 2024-11-15 05:54 | XMS_ITS | Encounter Summary ---
Author Organization [facility] Address [address] [facility] [address] [place] [address] Phone Care Team Providers Care [employer] Principal Name Role Phone Ni Armas RN Unavailable Lizette Adria Land MD Primary Care Provider [phone] Reason for Referral * Procedure (Routine) - Closed Specialty Diagnoses / Procedures Referred By Contac t Referred To Contact Pulmonology Diagnoses ILD (interstitial lung disease) (CMS/HCC) (HCC) Procedures Pulmonary Function Test -[facility]FT [facility]- [facility]; Spirometry, Oxygen Assessment Titration Renetta Goodson MD [address] [place] [address] Phone: tel: fax: Referral ID Status Reason Start Date Expiration Date Visits Re quested Visits Authorized [id number] Closed 09/19/2023 11/24/2024 1 1 Encounter Details Date Type Department Care Team (Late st Contact Info) Description 09/19/2023 4:00 PM CDT Office Visit 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 Gender Identity Female 05/04/2020 3:33 PM CDT Sexual Orientation Not on file 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 on file Not on file Not on file documented as of this encounter Last Filed Vital Signs Vital Sign Reading Time Taken Comments Blood Pressure 109/63 09/19/2023 3:24 PM CDT Pulse 57 09/19/2023 3:24 PM CDT Temperature 36.9 ??C (98.5 ??F) 09/19/2023 3:24 PM CD T Respiratory Rate 18 09/19/2023 3:24 PM CDT Oxygen Saturation 98% 09/19/2023 3:24 PM CDT Inhaled Oxygen Concentration - - Weight 103.9 kg (229 lb) 09/19/2023 3:24 PM CDT Height 157.5 cm (5' 2 ) 09/19/2023 3:24 PM CDT Body Mass Index 41.88 09/19/2023 3:24 PM CDT documented in this encounter Progress Notes * Renetta Goodson MD - 09/19/2023 12:00 AM CDT PATIENT NAME: AYANNA CASH : 1950 ANGELICA: 09/19/2023 PROBLEM LIST: 1. Rheumatoid arthritis, seropositive, complicated by interstitial lung disease. a. Previously on methotrexate. b. Current therapy abatacept, hydroxychloroquine, and prednisone 2.5 mg daily. 2. Hypertension. 3. Congestive heart failure. 4. Obstructive sleep apnea on CPAP. 5. History of bilateral knee replacements. 6. History of frequent urinary tract infections. 7. History of influenza A infection in September 2021, requiring hospitalization. 8. History of recurrent DVT and PE, on lifelong anticoagulation with Eliquis. 9. History of COVID-19 infection, May 2022, and required hospitalization at that time for a mechanical fall with rib fractures and heart failure exacerbation. INTERVAL HISTORY: Ms. Cash is a 73-year-old woman who returns today for follow-up of her RA- associated ILD. She hasdyspnea that is multifactorial in the setting of deconditioning, obesity, heart failure, as well asfibrotic lung disease. Since she was last in clinic, she has not been admitted to the hospital, which is encouraging after multiple hospitalizations preceding her last clinic visit. She did have one ED visit in July for a urinary tract infection and urinary retention, for which a Andino was placed. There are plans for her to have a suprapubic Andino catheter placement in the future. Overall, her dyspnea has been fairly stable since last visit. She reports being more limited by joint pain than she is by shortness of breath, although she does get shortness of breath with almost any exertion. She reports pain in her left hip that has been quite bothersome to her recently, as well as lower extremity edema. She remains on Orencia, hydroxychloroquine, and prednisone 2.5 for her rh eumatologic disease; however, her Orencia is currently on hold in the setting of her recent urinarytract infection. She continues to use 3 L of oxygen around the clock. She has not been using her CPAP at night because she has a hard time moving her concentrator tubing from her cannula over to her CPAP, and thus, she is sleeping with 3 L of oxygen. She denies any morning headaches. She continues to be very deconditioned and spends most of her time in her chair or bed and does not routinely walk. MEDICATIONS: These were reviewed in [facility] and are specifically notable for: 1. Orencia, currently on hold in the setting of recent UTI. 2. Hydroxychloroquine. 3. Prednisone 2.5 mg daily. 4. She is also on diuretics. REVIEW OF SYSTEMS: Negative except for as stated in the Interval History. PHYSICAL EXAMINATION: Vital Signs: Height 5 feet 2 inches, weight 229 pounds, blood pressure 109/63, pulse 57, respirations 18, saturating 98% on 3 L of oxygen at rest, afebrile. General: Sitting in chair, chronically ill appearing, no acute distress. HEENT: Nasal cannula in place. Neck: Supple. Cardiovascular: Regular rate and rhythm. Lungs: Bibasilar crackles are present. Abdomen: Obese, soft, nontender. Extremities: She does have bilateral lower extremity swelling. Genitourinary: She has a Andino catheter in place. DATA: 1. Spirometry: Date FVC,% pred FEV1, % pred FEV1/FVC TLC, % pred DLCO, % pred 08/2023 1.01, 40% 0.86, 44% 04/2023 0.95 0.79 12/2022 0.89, 38% 0.86, 43% 88% 05/2022 1.40, 55% 1.21, 62% 87% 02/2022 1.26, 49% 1.10, 55% 87% 10/2021 1.22, 47% 1.11, 56% 91% 2.63, 55% 45% 2. Six-minute walk: The patient was saturating 96% on room air at rest. She was able to walk 40 feet in 1 minute with a Rollator and had to stop due to leg weakness. Her oxygen went from 96 to 94 on room air with exertion. However, it was noted that her O2 dropped when she rested after walking, requiring 2 L of oxygen. Concluding Kaitlin score was 3. IMPRESSION AND RECOMMENDATIONS: Ms. Cash is a 73-year-old with a history of rheumatoid arthritis and associated interstitial lungdisease who returns today for interval follow-up. Her dyspnea is multifactorial in the setting of deconditioning, obesity, heart failure, as well as ILD, and has been stable since last visit. Today, her spirometry is stable as compared to her last visit. Her walk test was also similar to last visit, although notably, she walked a very limited distance of just 40 ft and had to stop due to lower extremity weakness. I recommend the followin. Agree with continuing Orencia, hydroxychloroquine, and low-dose prednisone as per Rheumatology. Notably, the Orencia is on hold right now in the setting of recent UTI with andino in place. 2. Continue using 2 to 4 L of oxygen with exertion. She can monitor her oxygen saturations at home,with a goal for SpO2 greater than 90%. 3. We did discuss the importance of continuing to move the best that she is able to do. I also brought up PT, which she was not interested in participating in. 4. We also discussed that she would benefit from using CPAP, but unfortunately, its use is limited by logistical challenges of moving her oxygen concentrator tubing over to her CPAP at night and thusis just sleeping with oxygen, which she will continue to do. 5. We will plan to see the patient back in 6 months, or sooner if issues arise. Renetta Goodson M.D. Heel Breastercleaning handyman MM/mts cc: MYRTLE NORMAN MD [address] [facility] [address] [place] [address] ADRIA DONIS MD [address] [place] [address] / documented in this encounter Plan of Treatment Not on file documented as of this encounter Results * Pulmonary Function Test - (04/08/2024 10:01 AM CDT) FVC PRE 0.98 L [facility] FVC %PRE PRED 39 % [facility] FEV1 PRE 0.81 L [facility] FEV1 %PRE PRED 42 % [facility] FEV1/FVC PRE 83.4 % [facility] Anatomical Region Laterality Modality PFT 03/26/2024 1:24 [...] and %HbO2 is age dependent. However, the [facility] Function [facility] defines hypoxemia as a PO2 <55 or a %HbO2 <89. Narrative 03/26/2024 4:03 PM CDT Table formatting from the original result was not included. [facility] Division of Pulmonary & Critical Care Medicine [address] [place] [address]; [place] [address]; [place], [place] [address]; [phone] Pulmonary Function Laboratory Pulmonary Stress Test Simple/Oxygen [...] with the written final report. PFT performed at:->[facility] Adult PFT [facility]- [facility] Procedure:->Spirometry Procedure:->Oxygen [...] Diagnoses Diagnosis ILD (interstitial lung disease) (CMS/HCC) (HCC)- Primary Postinflammatory pulmonary fibrosis ILD (interstitial lung disease) (CMS/HCC) (HCC) Postinflammatory pulmonary fibrosis documented in this encounter Discontinued Medications Medication Sig Discontinue Reason Start Date End Da te cholestyramine (QUESTRAN) 4 gram packet Duplicate order 06/09/20 20 09/19/2023 documented as of this encounter Historical Medications * This list may reflect changes made after this encounter. cholestyramine light 4 gram packet MIX 1 PACKET WITH LIQUID AND DRINK EVERY DAY WITH A MEAL. AVOID OTHER MEDS WITHIN 1 HOUR BEFORE OR 4 TO 6 HOURS AFTER DOSE 09/13/2023 added in this encounter Care Teams Secondary School Principal Relationship Specialty Start Date End Date Adria Donis MD PCP - General Family Practice 04/12/23 Ni Armas, BILLY Registered Nurse Pulmonary Disease 01/11/23 documented as of this encounter
--- OUTSIDE RECORDS SUMMARY | 2024-11-15 05:54 | XMS_ITS | Encounter Summary ---
Author Organization [facility] Address [address] [place] [address] Care Team Providers Care Driver License Reviewing Officer Name Role Phone Ni Armas RN Unavailable Lizette Timothy Land MD Primary Care Provider [phone] Encounter Details Date Type Department Care Team (Late st Contact Info) Description 06/24/2023 Telephone [facility] Cardiology [address] [facility] [address] [place] [address] Myles Reyes MD [address] [facility] [address] [place] [address] Social History Tobacco Use Types Packs/Day Years Used Date Smoking Tobacco: Never Smokeless Tobacco: Never Alcohol Use Standard Drinks/Week Comments Not Currently 0 (1 standard drink = 0.6 oz pur e alcohol) Comments Unknown Sex and Gender Information Value Date Recorded Sex Assigned at Not on file 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 * Telephone Encounter - Apurva Schwarz - 06/24/2023 8:37 AM CDT Pt requesting refill for dilTIAZem CD (CARDIZEM CD) 300 mg 24 hr capsule with 90 day supply be sentto [facility]. Contact:[phone] documented in this encounter Plan of Treatment Not on file documented as of this encounter Visit Diagnoses Not on filedocumented in this encounter Discontinued Medications Medication Sig Discontinue Reason Start Date End Da te dilTIAZem CD (CARDIZEM CD) 300 mg 24 hr capsule Take 1 capsule (300 mg total) by mouth daily Reorder 06/24/2023 documented as of this encounter Care Teams Driver License Reviewing Officer Relationship Specialty Start Date End Date Timothy Donis MD PCP - General Family Practice 04/12/23 Ni Armas, BILLY Registered Nurse Pulmonary Disease 01/11/23 documented as of this encounter
--- OUTSIDE RECORDS SUMMARY | 2024-11-15 05:54 | XMS_ITS | Encounter Summary ---
Author Organization [facility] Address [address] [place] [address] Phone Care Team Providers Care Supervisor Uranium [employer] Name Role Phone Ni Armas RN Unavailable Lizette Timothy Land MD Primary Care Provider [phone] Reason for Referral * MRI/CAT/PET Scan (Routine) - Closed Specialty Diagnoses / Procedures Referred By Contac t Referred To Contact Radiology Diagnoses Chronic lumbar radiculopathy Procedures MRI Lumbar Spine WO Contrast Finn Brito MD [address] [facility] [address] [place] [address] Phone: tel: fax: [address] [phone] Referral ID Status Reason Start Date Expiration Date Visits Re quested Visits Authorized [id number] Closed 05/21/2024 06/20/2025 1 1 * Diagnostic Imaging (Routine) - Closed Specialty Diagnoses / Procedures Referred By Contac t Referred To Contact Diagnoses Chronic lumbar radiculopathy Procedures X-ray lumbar spine 2 or 3 views Finn Brito MD [address] [facility] [address] [place] [address] Phone: tel: fax: [address] [phone] Referral ID Status Reason Start Date Expiration Date Visits Re quested Visits Authorized [id number] Closed 05/21/2024 06/20/2025 1 1 Reason for Visit * Reason Comments Pain Pain * Consultation (Routine) - Closed Specialty Diagnoses / Procedures Referred By Contact Referred To Contact Physical Medicine and Rehabilitation Diagnoses Lumbar radiculopathy Monty Kenny MD [address] [facility] [address] [place] [address] Phone: tel:[phone] fax:[phone] [facility] (All Locations) Referral ID Status Reason Start Date Expiration Date V isits Requested Visits Authorized [id number] Closed Specialty Services Required 12/20/2023 01/18/2025 1 1 Encounter Details Date Type Department Care Team (Latest Contact Info) Description 05/21/2024 8:30 AM CDT Office Visit [facility] Orthopaedic Surgery [address] [place] [address] Medical Office Building [address] [place] [id number] Finn Brito MD [address] 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 I recommend: Lumbar spine x-rays, two views only AP and lateral today before leaving, we will provide her results and follow up via patient portal. Lumbar spine MRI: Left S1 radiculopathy including dermatomal numbness, evaluate for stenosis causing nerve root impingement. [facility] [place] [facility] Pending review of imaging, we discussed the potential role for fluoroscopy guided steroid injection. documented in this encounter Progress Notes * Finn Brito MD - 05/21/2024 8:30 AM CDT NEW PATIENT VISIT CHIEF COMPLAINT: Chief Complaint Patient presents with Left Shoulder - Pain Left Leg - Pain HISTORY OF PRESENT ILLNESS: Ayanna Cash is a 74 y.o. female who presents to the office today for evaluation of left lower extremity pain. She is known history of severe osteoarthritis. She is consulted with Dr. Kenny referred her to our service for further evaluation. Pain in left lower extremity is severe at times, allyson iable in nature with aching, pins and needles, numbness in the distal S1 dermatome. Symptoms have been present for approximately a year, worse over the last 3 months. Symptoms are aggravated with anyattempted walking or moving, constant and she identifies no specific alleviating factors. She ambulates very limited amount with the use of a walker, is not otherwise able to stand. Multiple comorbidities complicate therapeutic options including surgery for hip osteoarthritis. PAST MEDICAL HISTORY: She has a past medical history of Anemia, Atrial fibrillation (CMS/HCC) ([facility]), Cataracts, bilateral, CHF (congestive heart failure) (CMS/HCC) ([facility]), Chronic kidney disease (2021), Depression (12/2021), Diastolic dysfunction, Diverticulitis, H/O section, Heart disease, Hypertension, Kidney stone (2021), Obesity, Sleep apnea, Thyroid disease, and Wears dentures. PAST SURGICAL HISTORY: She has a past surgical history that includes section; Thyroidectomy; Cholecystectomy; Joint replacement (Knee replacement both (L) & (R)); Cataract extraction (2021 both eyes); and [place] Fluoro Guided Aspiration or Injection Large Joint Bilateral (Bilateral, 01/03/2024). INITIAL REVIEW OF MEDICATIONS: She has a current medication list which includes the following prescription(s): cephalexin (KEFLEX), orencia clickject, acetaminophen, alendronate (FOSAMAX), calcium carbonate-vit d3-min, cholecalciferol (VITAMIN D-3), cholestyramine light, cyanocobalamin (VITAMIN B-12), diltiazem cd (CARDIZEM CD),duloxetine dr (CYMBALTA), eliquis, furosemide (LASIX), hydroxychloroquine (PLAQUENIL), levothyroxine (SYNTHROID), metoprolol xl (TOPROL-XL), metoprolol xl (TOPROL-XL), pantoprazole (PROTONIX), potassium chloride er (KLOR-CON), pravastatin (PRAVACHOL), prednisone (DELTASONE), sacubitril-valsartan(ENTRESTO), and tramadol (ULTRAM). DRUG ALLERGIES: She has no known allergies. SOCIAL HISTORY: She reports that she has never smoked. She has never used smokeless tobacco. She reports that she does not use drugs. No alcohol history on file. FAMILY HISTORY: She family history includes Blood Clot in her father; Clotting disorder in her father; Hypertensionin her mother; No Known Problems in her sister and sister; Rheum arthritis in her father. PHYSICAL EXAM: On examination today, the patient is awake, alert, and appropriate, in no apparent distress. Breathing is regular and non-labored, hearing is intact to spoken words. Sensibility light touch subjectively diminished the distal S1 dermatome. There are no focal motor deficits in left lower extremity. Seated straight leg raise is readily provocative typical pain. She has not able to stand due to not having her walker for support, declining to attempt otherwise due to pain. REVIEW OF X-RAYS/STUDIES: Lumbar spine x-rays are ordered and visualized today: Moderate to severe multilevel degenerative changes, most significant at L5-S1. Stable T11 and T12 compression deformities compared to 2020 x-rays. IMPRESSION/DIAGNOSIS: Chronic left S1 radiculopathy with pain, dermatomal numbness, likely stenosis causing nerve root impingement. TREATMENT PLAN: We discussed things in detail today. I recommend: Lumbar spine x-rays, two views only AP and lateral today before leaving, we will provide her results and follow up via patient portal. Lumbar spine MRI: Left S1 radiculopathy including dermatomal numbness, evaluate for stenosis causing nerve root impingement. [facility]. Pending review of imaging, we discussed the potential role for fluoroscopy guided steroid injection. The rational for all recommendations, as well as relevant risks, are discussed with the patient in detail. The patient expresses understanding, comfort and agreement with the plan, all questions are answered. No orders of the defined types were placed in this encounter. This note was dictated using SmartNews software. This note was not read in detail; therefore, variances and inaccuracies may occur. Finn Cordova MD Professor Physical Medicine and Rehabilitation [facility] Orthopedics documented in this encounter Plan of Treatment Not on file documented as of this encounter Results * MRI Lumbar Spine WO Contrast (07/16/2024 8:08 AM CDT) Anatomical Region Laterality Modality Spine N/A Magnetic Resonan ce 07/16/2024 8:32 AM CDT Narrative 07/16/2024 8:47 AM CDT EXAM DESCRIPTION: ?? MRI LUMBAR SPINE WO CONTRAST REASON FOR STUDY: ?? L/S-spine canal stenosis, Left S1 radiculopathy including dermatomal numbness, evaluate for stenosis causing nerve root impingement. ?? She will get this done at [facility] in [facility] where she lives ?? Patient reports left leg pain, numbness, and pain x 6 months. Patient denies any injury. ? TECHNIQUE: ??Sagittal and Axial imaging includes T1, T2, STIR sequences. ? COMPARISON: ?? CT of the abdomen and pelvis from outside facility of 01/02/2020. ??Lumbar spine radiographs from 05/21/2024 FINDINGS: SEGMENTATION: ?? No transitional anatomy. The lowest well-developed disc space is labeled L5-S1. ALIGNMENT: ?? Mild focal kyphosis centered at T11. ??Normal lumbar spine alignment disc bulge. ??Moderate bilateral facet arthropathy with ligamentum flavum thickening. ??Mild left neural foraminal stenosis. ??Bwvq-uc-vwuijxob spinal canal stenosis with mild narrowing of the lateral recesses. VERTEBRAE: ?? In the L3 vertebral body there is a predominantly T1 mildly hyperintense 15 mm focus with partial non suppression on the STIR sequence, likely a hemangioma with atypical component. ??A vague correlate that is similar in size is seen on CT of 01/02/2020. ??No marrow replacing T1 hypointense signal is seen. ??T11 and T12 vertebral body height loss appear similar to 05/21/2024 and there is no MR evidence for acute fracture. ??If there is concern for recent fracture, a CT could be performed. ??There is mild STIR signal hyperintensity within the T9 through T11 vertebrae, which could be related to poor fat suppression, given the appearance of the prevertebral soft tissues at this level. ??There is a 10 mm oval circumscribed focus of STIR signal hyperintensity in the T10 vertebral body without marrow replacing T1 hypointense signal, nonspecific, possibly an atypical hemangioma. DISC HEIGHT: ?? Diffuse degenerative disc disease, most pronounced and severe at L2-L3 and L5-S1 go to vertebra HARDWARE: ?? None in the spine. CORD/CAUDA: ?? Normal in size and signal intensity. Conus at the L1-L2 level. LOWER THORACIC: ?? There is mild appearing T9-T10 and T10-11 spinal canal stenosis in part secondary to mild T11 vertebral body osseous retropulsion. INDIVIDUAL DISC LEVELS: T11-12: Mild disc bulge. ??Ephi-fu-dhgwfjyy facet arthropathy. ??Mild left eccentric ligamentum flavum thickening. ??Mild right neural foraminal stenosis. No spinal canal stenosis T12-L1: Disc bulge and mild osseous retropulsion of T11. ??Mild facet arthropathy and ligamentum flavum thickening. ??Yozp-me-ehmyugqw right and mild left neural foraminal stenosis. ??No significant spinal canal stenosis L1-2: ?? Minimal disc bulge. ??Mild facet arthropathy and ligamentum flavum thickening. ??No neural foraminal or significant spinal canal stenosis. L2-3: ?? Disc bulge. ??Mild facet arthropathy and ligamentum flavum thickening. ?? Minimal bilateral neural foraminal stenosis . ??Mild spinal canal stenosis L3-4: ?? Disc bulge. ??Dndz-lt-quoofhqi facet arthropathy. ??Ligamentum flavum thickening. ??Mild bilateral neural foraminal stenosis. ??Mild spinal canal stenosis with mild bilateral lateral recess narrowing. L4-5: ?? Disc bulge . ??Moderate bilateral facet arthropathy with ligamentum flavum thickening. ??Mild bilateral neural foraminal stenosis. ?? Xdyp-ie-avmiicug spinal canal stenosis with mild bilateral lateral recess narrowing. L5-S1: ?? No significant disc bulge. ??Moderate bilateral facet arthropathy. ?? Mild left neural foraminal stenosis. ??No spinal canal stenosis. SACRUM: ?? Visualized upper sacrum intact. VISUALIZED UPPER ABDOMEN: ?? Multiple T2 hyperintense foci throughout the kidneys are not fully characterized on this exam, but would be compatible with cysts. ?? Small T2 hypointense focus at the upper pole the right kidney is likely a stone OTHER: ?? Nonspecific dorsal subcutaneous fat STIR signal hyperintensity IMPRESSION: Multilevel lumbar degenerative disc and joint disease, as detailed level by level above. There is cuqh-ss-acglmwua spinal canal stenosis at L4-L5 and mild spinal canal stenosis at L2-L3 and L3-L4. Multilevel neural foraminal stenosis, up to wrnr-wz-eexqqtha on the right at T12-L1. Unchanged T11 and T12 compression fractures. ??Mild STIR signal hyperintensity within the T9 through T11 vertebrae is favored to be related to poor fat suppression, given the appearance of the prevertebral soft tissues at this level. 10 mm focus of STIR signal hyperintensity at T10 without T1 hypointense marrow replacing signal, nonspecific but most likely a hemangioma with atypical components. THIS IS AN ELECTRONICALLY VERIFIED FINAL REPORT 07/16/2024 8:47 AM - Electronically signed by ??Rene Glass M.D. MZ: SUSAN D: ??07/16/2024 8:46 AM T: ??07/16/2024 8:47 AM Report ID: [id number] Reading Location: ??[id number] Procedure Note Rene Glass MD - 07/16/2024 EXAM DESCRIPTION: MRI LUMBAR SPINE WO CONTRAST REASON FOR STUDY: L/S-spine canal stenosis, Left S1 radiculopathyincluding dermatomal numbness, evaluate for stenosis causing nerve root impingement. She will get this done at [facility] in [facility] where she lives Patient reports left leg pain, numbness, and pain x 6 months. Patientdenies any injury. TECHNIQUE: Sagittal and Axial imaging includes T1, T2, STIR sequences. COMPARISON: CT of the abdomen and pelvis from outside facility of 01/02/2020. Lumbar spine radiographs from 05/21/2024 FINDINGS: SEGMENTATION: No transitional anatomy. The lowestwell-developed disc space is labeled L5-S1. ALIGNMENT: Mild focal kyphosis centered at T11. Normal lumbar spine alignment disc bulge. Moderate bilateral facet arthropathy withligamentum flavum thickening. Mild left neural foraminal stenosis. Ikne-sq-heyrkyyb spinal canal stenosis with mild narrowing of the lateral recesses. VERTEBRAE: In the L3 vertebral body there is a predominantly T1 mildly hyperintense 15 mm focus with partial non suppression on the STIRsequence, likely a hemangioma with atypical component. A vague correlate that is similar in size is seen on CT of 01/02/2020. No marrow replacing T1 hypointense signal is seen. T11 and T12 vertebral body height loss appear similar to 05/21/2024 and there is no MR evidence for acute fracture. If there is concern for recent fracture, a CT could be performed. There ismild STIR signal hyperintensity within the T9 through T11 vertebrae, whichcould be related to poor fat suppression, given the appearance of the prevertebralsoft tissues at this level. There is a 10 mm oval circumscribed focus of STIR signal hyperintensity in the T10 vertebral body without marrow replacingT1 hypointense signal, nonspecific, possibly an atypical hemangioma. DISC HEIGHT: Diffuse degenerative disc disease, most pronounced andsevere at L2-L3 and L5-S1 go to vertebra HARDWARE: None in the spine. CORD/CAUDA: Normal in size and signal intensity. Conus at the L1-V5paxfm. LOWER THORACIC: There is mild appearing T9-T10 and T10-11 spinal canal stenosis in part secondary to mild T11 vertebral body osseousretropulsion. INDIVIDUAL DISC LEVELS: T11-12: Mild disc bulge. Piyc-ym-twvuhmqq facet arthropathy. Mild left eccentric ligamentum flavum thickening. Mild right neural foraminalstenosis. No spinal canal stenosis T12-L1: Disc bulge and mild osseous retropulsion of T11. Mild facet arthropathy and ligamentum flavum thickening. Auup-ex-oolcqhnm right andmild left neural foraminal stenosis. No significant spinal canal stenosis L1-2: Minimal disc bulge. Mild facet arthropathy and ligamentum flavum thickening. No neural foraminal or significant spinal canal stenosis. L2-3: Disc bulge. Mild facet arthropathy and ligamentum flavumthickening. Minimal bilateral neural foraminal stenosis . Mild spinal canal stenosis L3-4: Disc bulge. Fkha-no-asjcbyyy facet arthropathy. Ligamentumflavum thickening. Mild bilateral neural foraminal stenosis. Mild spinal canal stenosis with mild bilateral lateral recess narrowing. L4-5: Disc bulge . Moderate bilateral facet arthropathy with ligamentum flavum thickening. Mild bilateral neural foraminal stenosis. Dafu-gq-ovzduvqw spinal canal stenosis with mild bilateral lateral recess narrowing. L5-S1: No significant disc bulge. Moderate bilateral facet arthropathy. Mild left neural foraminal stenosis. No spinal canal stenosis. SACRUM: Visualized upper sacrum intact. VISUALIZED UPPER ABDOMEN: Multiple T2 hyperintense foci throughout the kidneys are not fully characterized on this exam, but would be compatiblewith cysts. Small T2 hypointense focus at the upper pole the right kidney is likely a stone OTHER: Nonspecific dorsal subcutaneous fat STIR signal hyperintensity IMPRESSION: Multilevel lumbar degenerative disc and joint disease, as detailed levelby level above. There is lgdq-bp-fsodqtuu spinal canal stenosis at L4-L5 andmild spinal canal stenosis at L2-L3 and L3-L4. Multilevel neural foraminal stenosis, up to gtsc-mc-ksoyikil on the right at T12-L1. Unchanged T11 and T12 compression fractures. Mild STIR signalhyperintensity within the T9 through T11 vertebrae is favored to be related to poor fat suppression, given the appearance of the prevertebral soft tissues at this level. 10 mm focus of STIR signal hyperintensity at T10 without T1 hypointense marrow replacing signal, nonspecific but most likely a hemangioma with atypical components. THIS IS AN ELECTRONICALLY VERIFIED FINAL REPORT 07/16/2024 8:47 AM - Electronically signed by Rene DAVIS: SUSAN Report ID: [id number] Reading Location: [id number] Finn Brito MD IMG MRI PROCEDURES Final R esult * X-ray lumbar spine 2 or 3 [...] Visit Diagnoses Diagnosis Chronic lumbar radiculopathy- Primary Lumbar radiculopathy Thoracic or lumbosacral neuritis or radiculitis, unspecified Chronic lumbar radiculopathy Chronic lumbar radiculopathy documented in this encounter Historical Medications * This list may reflect changes made after this encounter. cephalexin (KEFLEX) 250 mg capsule Take 1 capsule (250 mg total) by mouth daily 05/08/2024 added in this encounter Orders Outpatient Referral Count Last Ordered Date Fir st Ordered Date AMB REFERRAL TO ORTHOPEDIC PHYSIATRY 1 04/26 documented in this encounter Care Teams Supervisor Uranium Processing Relationship Specialty Start Date End Date Timothy Donis MD PCP - General Family Practice 04/12/23 Ni Armas, RN Registered Nurse Pulmonary Disease 01/11/23 documented as of this encounter
--- OUTSIDE RECORDS SUMMARY | 2024-11-15 05:54 | XMS_ITS | Encounter Summary ---
Author Organization [facility] Address [address] [place] [address] Care Team Providers Care Classification Clerk Name Role Phone Ni Armas RN Unavailable Lizette Timothy Land MD Primary Care Provider [phone] Reason for Visit * Reason Comments Follow-up After echo on . Seen at [facility] on 05/17/23 Dx: Chest pain Atrial Fibrillation Cardiomyopathy Encounter Details Date Type Department Care Team (Latest Contact Info) Description 07/30/2023 8:15 AM CDT Office Visit [facility] Cardiology at [address] [place] [address] Myles Reyes MD [address] [address] Chronic heart failure with preserved ejection fraction (CMS/HCC) (HCC) (Primary Dx); Longstanding persistent atrial fibrillation (CMS/HCC) (HCC); Chronic respiratory failure with hypoxia (CMS/HCC) (HCC); Primary hypertension; STARR on CPAP; ILD (interstitial lung disease) (CMS/HCC) (HCC); Chronic anticoagulation Social History Tobacco Use Types Packs/Day Years Used Date Smoking Tobacco: Never Smokeless Tobacco: Never Alcohol Use Standard Drinks/Week Comments Not Currently 0 (1 standard drink = 0.6 oz pur e alcohol) Comments Unknown Sex and Gender Information Value Date Recorded Sex Assigned at Not on file Legal Sex Female 1:14 AM MANAGER MEAT Gender Identity Female 05/04/2020 3:33 PM CDT Sexual Orientation Not on file 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 Not on file Not on file Not on file documented as of this encounter Last Filed Vital Signs Vital Sign Reading Time Taken Comments Blood Pressure 118/74 07/30/2023 8:23 AM CDT Pulse 78 07/30/2023 8:23 AM CDT Temperature - - Respiratory Rate - - Oxygen Saturation 99% 07/30/2023 8:23 AM CDT with O2 Inhaled Oxygen Concentration - - Weight 97.5 kg (215 lb) 07/30/2023 8:23 AM CDT p er pt Height 157.5 cm (5' 2 ) 07/30/2023 8:23 AM CDT Body Mass Index 39.32 07/30/2023 8:23 AM CDT documented in this encounter Progress Notes * Myles Reyes MD - 07/30/2023 8:15 AM CDT [facility] DATE OF VISIT: 07/30/2023 CHIEF COMPLAINT Chief Complaint Patient presents with Follow-up After echo on 07/26/23. Seen at [facility] on 05/17/23 Dx: Chest pain Atrial Fibrillation Cardiomyopathy ASSESSMENT Diagnoses and all orders for this visit: Chronic heart failure with preserved ejection fraction (CMS/HCC) (HCC) (Primary) Longstanding persistent atrial fibrillation (CMS/HCC) (HCC) Chronic respiratory failure with hypoxia (CMS/HCC) (HCC) Primary hypertension STARR on CPAP ILD (interstitial lung disease) (CMS/HCC) (HCC) Chronic anticoagulation PLAN/RECOMMENDATIONS 1. AFib historically paroxysmal [...] time with regards to her AFib control. Referral to electrophysiology Dr. Morris for further evaluation recommendations if any new issues and if patient agrees. 2. BP controlled goal <140/90mmHg. Monitor BP on routine basis. Call with readings. Continue consistent cardiovascular exercise, weight loss, medication compliance, and low-sodium diet. -Toprol XL 150 mg daily. Continue Entresto 24/26 mg twice daily for now. Advised to increase to 49/51 mg twice daily and repeat BMP in 1 week after colonoscopy completed. Counseled on side effects, risks and benefits. Monitor BP, ambulate with caution. 3. Marginally Compensated, chronic HFpEF historically now reduced LV function EF 20% by echocardiogram but during AFib with RVR NYHA class III sxs confounded by chronic hypoxic respiratory failure. CHF counseling performed. Follow daily weight, less than 2 g daily sodium intake, medication compliance. Call w/ wt gain >3lb in 24 hrs or worsening edema and/or FALCON. -Echo 04/05/2023 at [facility] EF 25-30% during AFib with RVR [id number] MR moderate pulmonary hypertension RVSP 50 mm Hg. -at length we discussed management. -07/2023 echo personally reviewed and discussed EF improved 50-55% mild RV hypokinesis, mild left atrial enlargement mild MR/TR, no , PASP 30 mmHg which is great news. -Plan to increase Entresto to 49/51mg BID and BMP 1 week later after colonoscopy upcoming. -Cont Lasix 80mg daily, 40mg that day prior to study with GI prep. 4. Compliance with medications, recommendations follow-up once again extensively reviewed with patient and her daughter. 5. Follow-up with pulmonology and Rheumatology as scheduled. Compliance with [facility] for tx of STARR. Shewill continue on hydroxychloroquine, methotrexate and prednisone as directed 6. Lipids personally reviewed 12/27/22 LDL 42, well controlled goal LDL< 100. Continue statin therapy and lifestyle modification. Pravastatin 80mg qhs. 7. Lifestyle modification counseling performed. Encouraged consistent weight loss, exercise, reduction in caloric intake. Over 50% of this visit counseling CHF, HTN, lipids, medications, lifestyle modification. Follow up in the office in 2 months or sooner as needed. Thank you [...] was previously followed by Dr. Parker. Her turner in is Dr. Norman. Her collar runner is Dr. Kobe Gerard. She presented to [facility] on 01/01/2020 with complaint of worsening [...] CPAP machine nightly, but sometimes remove sit intermediate through the night. PCP follows her INRs [...] trying to lose some weight, following a [id number] Na restriction. Now using a foot pedal [...] 09/29/21 CAT visit-On 09/21/21 she went to [facility] ER for complaint of worsening shortnessof [...] Norman has referred her to pulmonology at [facility] and that appointment is next month. 12-lead ECG performed in the office today was independently interpreted by me and showed sinus rhythm, normal axis and normal intervals, rate 88 beats per minute 11/02/21 Says not feeling any better at all after admission to [facility] with influenza B hurts to doeverything takes a lot out of her, no energy or appetite, SOB same as before. Attributes a lot to being off her pain meds including Hydroxychloroquine and Methotrexate for a while while in hospital. On CPAP. Not much edema though. Pain is mostly in shoulders and hands. Uses heating pad and Tylenol.Saw PCP recently. Sees Pulm at [facility] tomorrow. Using 2L O2 at rest 4L O2 with activity. She notes her O2 drops to 85% on 4L still. Rheum adjusting meds on prednisone for 1 week without noted improvement thus far. Has PT coming into home. 04/17/22 Admitted to [facility] with ILD and CHF admits she hasn't [...] CAT visit - she was hospitalized at [facility] 05/25-05/26 for pulmonary edema, tested positive for COVID, treated for rib fractures due to a fall 2 days prior. Then hospitalized at [facility] 05/27-06/07for treatment of pneumonia (bacterial verses COVID) / COPD exacerbation, diastolic heart failure exacerbation. She became bradycardic on telemetry (heart rate 30-40 with pause up to 3 seconds) so remdesivir was stopped and metoprolol was stopped. IV furosemide caused MIKE so she was discharged without furosemide but it has since been restarted in [facility] (currently she is at [facility] in [place]). When she is doing physical therapy her [...] and atrial flutter with RVR. Went to [facility] after February admission then back to [facility] in March after and she feels diet at [facility] is to fault and salty. Cough is incessant at [facility]. Has blood in stool reported Elisa recommended discharge yesterday on Dilt 300mg daily and Toprol XL 150mg Lasix 40mg BID Echo with EF 27% but in AF with RVR. Extensively reviewed [facility] records. Patient's daughter veryconcerned about her [...] them. Today she had an appointment at [facility] with her turner in so she has not been able to [...] her medical regimen and feels better overall. MEDICAL HISTORY Past Medical History: Diagnosis Date Atrial fibrillation (CMS/HCC) ([facility]) Cataracts, bilateral CHF (congestive heart failure) (CMS/HCC) ([facility]) Chronic kidney disease 2021 Depression 12/2021 Diastolic [...] cholecalciferol (VITAMIN D-3) 2000 unit tablet cholestyramine (QUESTRAN) 4 gram packet cyanocobalamin (Vitamin [...] mg tablet traMADoL (ULTRAM) 50 mg tablet predniSONE (DELTASONE) 5 mg tablet ALLERGIES No Known Allergies REVIEW [...] and are negative. PHYSICAL EXAM Vitals BP 118/74 (BP Location: Right arm, Patient Position: Sitting) Pulse 78 Ht 157.5 cm (5' 2 ) Wt 97.5 kg (215 lb) SpO2 99% BMI 39.32 kg/m?? Weight: 97.5 kg (215 lb) (per pt) Height: 157.5 cm (5' 2 ) Body mass index is 39.32 kg/m??. Physical Exam Vitals reviewed. Constitutional: General: [...] present. Left lower leg: Edema present. Comments: trace+ edema bilateral L>R In wheelchair Lymphadenopathy: Cervical: [...] orders placed or performed in visit on 05/02/23 Basic metabolic panel Result Value Ref Range SCRIBED Sodium 137 137 - 145 mmol/L SCRIBED Potassium 4.3 3.4 - 5.0 mmol/L SCRIBED Chloride 104 98 - 107 mmol/L SCRIBED Carbon Dioxide 31 (A) 22 - 30 mmol/L SCRIBED Anion Gap 2 (A) 8 - 16 mmol/L SCRIBED Urea Nitrogen (BUN) 40 (A) 7 - 17 mg/dl SCRIBED Creatinine 1.20 (A) 0.7 - 1.0 mg/dl SCRIBED Glucose 91 65 - 110 mg/dl SCRIBED Calcium 10.0 8.4 - 10.2 mg/dl SCRIBED eGFR in N/A N/A SCRIBED eGFR in NonAfrican [place]ayan 44 > or = 60 09/29/2021 2D echocardiogram: [facility] EF 55-60% mild LVH, mild LVE, trivial MR, normal pulmonary pressures 10/04/2021 48 hour Holter monitor: Interpretation Summary AMBULATORY SENIOR SUPPLY CHAIN ANALYST REPORT Patient Name: Ayanna Cash Date of [...] Clinical correlation is recommended. 12/29/21 2D Echo ([facility]): EF 55-60% mild LVH moderate left atrial enlargement no MR unable to estimate PA systolic pressure. No . 07/11/22 Interpretation Summary AMBULATORY SENIOR SUPPLY CHAIN ANALYST REPORT Patient Name: Ayanna Cash Date of [...] rate. 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 Sinus rhythm [...] fibrillation. Personally reviewed EKG, electronic medical record, [facility] records, and bloodwork/lipids. Geetha Reyes MD, [facility] This note is dictated and transcribed using goDog Fetch Direct Software. Mushroom Packer variancesmay occur. Despite proofreading, typographical errors may occur. documented in this encounter Plan of Treatment Not on file documented as of this encounter Visit Diagnoses Diagnosis Chronic heart failure with preserved ejection fraction (CMS/HCC) (HCC)- Primary Longstanding persistent atrial fibrillation (CMS/HCC) (HCC) Chronic respiratory failure with hypoxia (CMS/HCC) (HCC) Primary hypertension Unspecified essential hypertension STARR on CPAP ILD (interstitial lung disease) (CMS/HCC) (HCC) Postinflammatory pulmonary fibrosis Chronic anticoagulation Encounter for long-term (current) use of anticoagulants documented in this encounter Discontinued Medications Medication Sig Discontinue Reason Start Date End Da te predniSONE (DELTASONE) 5 mg tablet Take 4 tabs/day x 5 days, 3 tabs/day x 5 days, 2 tabs/day x 5 days, and then 1 tab/day x 5 days. Duplicate order 06/26/2023 07/30/2023 documented as of this encounter Care Teams Classification Clerk Relationship Specialty Start Date End Date Timothy Donis MD PCP - General Family Practice 04/12/23 Ni Armas, RN Registered Nurse Pulmonary Disease 01/11/23 documented as of this encounter
--- OUTSIDE RECORDS SUMMARY | 2024-11-15 05:54 | XMS_ITS | Encounter Summary ---
Author Organization [facility] Address [address] [place] [address] Phone Care Team Providers Care Supervisor Customer Records Division Name Role Phone Ni Armas RN Unavailable Lizette Timothy Land MD Primary Care Provider [phone] Reason for Referral * Diagnostic Imaging (Routine) - Closed Specialty Diagnoses / Procedures Referred By Contmeghana t Referred To Contact Diagnoses Left hip pain Procedures XR Hip Left 2 or 3 Views XR Hip Left 4 or More Views Sandra Bauman MD [address] [facility] [address] [place] [address] Phone: tel: fax: [address] [address] Referral ID Status Reason Start Date Expiration Date Visits Re quested Visits Authorized [id number] Closed 10/01/2023 10/30/2024 1 1 VATING CONTRACTOR Encounter Details Date Type Department Care Team (Late st Contact Info) Description 10/01/2023 8:00 AM EXCAVATING CONTRACTOR Office Visit [facility] Rheumatology [address] [place] [address] Medicine 5th [place] [address] [place] [address] Sandra Bauman MD [address] 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); Osteopenia of multiple sites; High risk medication use; Left hip pain Social History Tobacco Use Types Packs/Day Years Used Date Smoking Tobacco: Never Smokeless Tobacco: Never Alcohol Use Standard Drinks/Week Comments Not Currently 0 (1 standard drink = 0.6 oz pur e alcohol) Comments Unknown Sex and Gender Information Value Date Recorded Sex Assigned at Not on file Legal Sex Female 1:14 AM EXCAVATING CONTRACTOR Gender Identity Female 05/04/2020 3:33 PM CDT Sexual Orientation Not on file 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 on file Not on file Not on file documented as of this encounter Last Filed Vital Signs Vital Sign Reading Time Taken Comments Blood Pressure 105/70 10/01/2023 8:00 AM EXCAVATING CONTRACTOR Pulse 58 10/01/2023 8:00 AM EXCAVATING CONTRACTOR Temperature 36.5 ??C (97.7 ??F) 10/01/2023 8:00 AM CS T Respiratory Rate - - Oxygen Saturation - - Inhaled Oxygen Concentration - - Weight 104.3 kg (230 lb) 10/01/2023 8:00 AM EXCAVATING CONTRACTOR Height 157.5 cm (5' 2 ) 10/01/2023 8:00 AM EXCAVATING CONTRACTOR Body Mass Index 42.07 10/01/2023 8:00 AM EXCAVATING CONTRACTOR documented in this encounter Progress Notes * Sandra Bauman MD - 10/01/2023 8:00 AM CST Images from the original note were not included. RHEUMATOLOGY PROGRESS NOTE DIAGNOSES: Seropositive rheumatoid arthritis Interstitial lung disease DVT and PE Atrial fibrillation Congestive heart failure Sleep apnea Hypothyroidism Chief Complaint: follow up for seropositive RA, polyarthralgias SUBJECTIVE: Last seen in clinic on 06/26/23. Was on therapy with subcutaneous Orencia, prednisone 2.5 mg a day and hydroxychloroquine 200 mg b.i.d..Has been dealing with recurrent UTI and urinary retention and has a catherter in place. Last Orencia injection was on 08/17 23, Orencia on hold due to recurrent infections, and now in preparation for surgery. Is scheduled for suprapubic catheter placement on . Complains of constant pain in the left leg pain (left hip, left del cid, ankle and foot). She has been dealing with this pain for several months that had eased up at the time of last visit. Now bothering her pain. Also reports pins and needles like sensation involving the left leg in the left leg g oes numb. Morning stiffness lasts for 20-30 minutes. Last pulmonary follow-up was on 05/14/2023. Her spirometry was stable. No changes were deemed necessary from RA-ILD immunosuppression standpoint. Has had flu, COVID, RSV and 1st dose of shingles vaccine. Review of Systems: All systems negative except [...] facility-administered medications for this visit. Objective: BP 105/70 Pulse 58 Temp 36.5 ??C (97.7 ??F) Ht 157.5 cm (5' 2 ) Wt 104.3 kg (230 lb) BMI 42.07 kg/m?? General: alert, cooperative, no acute distress, [...] Elbow normal normal Wrist normal normal MCP Some swelling on 2nd and 3rd phalanges normal PIP normal normal DIP normal normal Knee Tenderness over the joint line Tenderness over the joint line Ankle normal Sensitive to touch Foot normal normal Normal Hip ROM: Unable to assess d/t wheelchair bound status SI Joints: normal Spine: Normal alignment, no tenderness to palpation Swollen Joints: 3 Trigger/ tender Points; Tight Muscle Groups: tenderness over the left lower calf (has been on eliquis therapy) WBC Date Value Ref Range Status 06/02/2022 [...] BID, abatacept injections weekly, and prednisone 2.5 mg/day; last Orencia injection was 08/17/23, has been on hold due to recurrent UTI and now due to upcoming surgery --continue the current prednisone 2.5mg daily along with hydroxychloroquine 200 mg b.i.d. --Patient to resume Orencia about 3-4 weeks post surgery provided good wound healing and no postoperative complications/infections --serial eye exams while on HCQ therapy [...] 02/14 and also on calcium and vitamin-D 4. Left leg pain: -- appears to be multifactorial- combination of neuropathy muscle pain and possibly hip DJD -- unlikely to be a DVT as patient on chronic anticoagulation and no obvious left leg swelling on exam -- x-ray left hip -- check muscle enzymes -- any evaluation for neuropathy could be undertaken post surgery The patient is to return to clinic in 3 months. Be advised that voice recognition software has been used on this chart and inadvertent errors may occur. These may not represent a true interpretation of the dictation given. VATING CONTRACTOR VATING CONTRACTOR documented in this encounter Plan of Treatment Not on file documented as of this encounter Procedures Procedure Name Priority Date/Time Associated Diagnosis Comments XR HIP LEFT 2 OR 3 VIEWS Schedule Routine, Read Routine (OP Routine) 10/09/2023 1:45 PM EXCAVATING CONTRACTOR Left hip pain documented in this encounter Results * (ABNORMAL) Erythrocyte sedimentation rate (10/09/2023 1:49 PM EXCAVATING CONTRACTOR) Erythrocyte sedimentation rate 44(H) 1 - 30 mm/hr KURT Comment:Testing performed by : [address] [address] Blood 10/09/2023 1:49 PM EXCAVATING CONTRACTOR 10/09/2023 2:34 PM EXCAVATING CONTRACTOR Sandra Bauman MD LAB BLOOD ORDERABLES Final Resul t Performing Organization Address [facility] Co de Phone Number [address] [place] [address] * (ABNORMAL) CRP (acute phase) (10/09/2023 1:49 PM EXCAVATING CONTRACTOR) Pathologist [facility] CRP 11.7(H) <=10.0 mg/L KURT Comment:Testing performed by : [address] [address] Blood 10/09/2023 1:49 PM EXCAVATING CONTRACTOR 10/09/2023 2:34 PM EXCAVATING CONTRACTOR Sandra Bauman MD LAB BLOOD ORDERABLES Final Resul t Performing Organization Address City/State/[facility] Co de Phone Number [address] [place] [address] * Aldolase (10/09/2023 1:49 PM EXCAVATING CONTRACTOR) Aldolase 5.6 0.1 - 8.0 Units/L KURT Comment:Testing performed by : [facility], [address] [facility] [place]., [address] Blood 10/09/2023 1:49 PM EXCAVATING CONTRACTOR 10/09/2023 5:38 PM EXCAVATING CONTRACTOR Sandra Bauman MD LAB BLOOD ORDERABLES Final Resul t Performing Organization Address City/[facility] Co de Phone Number [address] [address] * Creatine kinase (CK), total (10/09/2023 1:49 PM EXCAVATING CONTRACTOR) Pathologist [facility] CK 79 30 - 200 Units/L KURT Comment: HEMOLYZED: Hemolysis interferes with the above test. Testing performed by: [address] [address] Blood 10/09/2023 1:49 PM EXCAVATING CONTRACTOR 10/09/2023 2:34 PM EXCAVATING CONTRACTOR Sandra Bauman MD LAB BLOOD ORDERABLES Final Resul t Performing Organization Address [facility] de Phone Number [address] [address] * (ABNORMAL) CBC with auto differential (10/09/2023 1:49 PM EXCAVATING CONTRACTOR) [facility] WBC 10.3(H) 3.8 - 9.9 K/cumm KURT CRAIG Comment:Testing performed by : [address] [address] Hgb 9.7(L) 11.9 - 15.5 g/dL KURT Comment: Interpretive Data A reference range for this assay has not been established for patients with an unknown legal sex. Please refer to the laboratory test catalog for established sex-specific reference intervals. Current interpretive data was last revised on 2023. Testing performed by: [address] [address] Hct 31.8(L) 35.6 - 45.5 % KURT Comment: Interpretive Data A reference range for this assay has not been established for patients with an unknown legal sex. Please refer to the laboratory test catalog for established sex-specific reference intervals. Current interpretive data was last revised on 2023. Testing performed by: [address] [address] Plt 287 150 - 400 K/cumm KURT CRAIG Comment:Testing performed by : [address] [address] MPV 10.5 9.1 - 12.3 fL KURT CRAIG Comment:Testing performed by : [address] [address] RBC 3.08(L) 3.90 - 5.20 M/cumm KURT CRAIG Comment: Interpretive Data A reference range for this assay has not been established for patients with an unknown legal sex. Please refer to the laboratory test catalog for established sex-specific reference intervals. Current interpretive data was last revised on 2023. Testing performed by: [address] [address] MCV 103.2(H) 81.3 - 96.4 fL KURT Comment:Testing performed by : [address] [address] MCH 31.5 27.1 - 33.3 pg KURT Comment:Testing performed by : [address] [address] MCHC 30.5(L) 32.3 - 35.7 g/dL KURT Comment:Testing performed by : [address] [address] RDW CV 12.7 11.1 - 14.9 % KURT Comment:Testing performed by : [address] [address] RDW SD 47.7 35.7 - 48.1 fL KURT Comment:Testing performed by : [address] [address] NRBC abs 0.00 0.00 - 0.01 K/cumm KURT CRAIG Comment:Testing performed by : [address] [address] Blood 10/09/2023 1:49 PM EXCAVATING CONTRACTOR 10/09/2023 2:34 PM EXCAVATING CONTRACTOR us Sandra Bauman MD LAB BLOOD ORDERABLES Final Resul t KURT [address] [facility] Department [place] [address] * (ABNORMAL) Comprehensive metabolic panel (10/09/2023 1:49 PM EXCAVATING CONTRACTOR) Sodium 138 135 - 145 mmol/L KURT Comment:Testing performed by : [address] [address] Potassium, pl 4.8 3.3 - 4.9 mmol/L KURT Comment: HEMOLYZED: Hemolysis interferes with the above test. Testing performed by: [address] [address] Chloride 100 97 - 110 mmol/L KURT Comment:Testing performed by : [address] [address] CO2 29 22 - 32 mmol/L KURT Comment:Testing performed by : [address] [address] Anion gap 9 2 - 15 mmol/L KURT Comment:Testing performed by : [address] [address] BUN 26(H) 6 - 25 mg/dL KURT Comment:Testing performed by : [address] [address] Creatinine 1.10 0.60 - 1.10 mg/dL KURT Comment:Testing performed by : [address] [address] Glucose 107 70 - 199 mg/dL KURT Comment: Interpretive [...] was last revised 2022. Testing performed by: [facility], [address] [place] [address]., [address] Calcium 9.7 8.5 - 10.3 mg/dL KURT Comment:Testing performed by : [address] [address] Bilirubin, total 0.2 0.1 - 1.2 mg/dL KURT Comment:Testing performed by : [address] [address] Protein, pl 6.9 6.5 - 8.5 g/dL KURT Comment:Testing performed by : [address] [address] Albumin 3.8 3.5 - 5.0 g/dL KURT Comment:Testing performed by : [address] [address] Alk phos 46 40 - 130 Units/L KURT Comment:Testing performed by : [address] [address] ALT 7 7 - 45 Units/L KURT Comment: HEMOLYZED: Hemolysis interferes with the above test. Testing performed by: [address] [address] AST 20 10 - 45 Units/L KURT Comment: HEMOLYZED: Hemolysis interferes with the above test. Testing performed by: [address] [address] Blood 10/09/2023 1:49 PM EXCAVATING CONTRACTOR 10/09/2023 2:34 PM EXCAVATING CONTRACTOR us Sandra Bauman MD LAB BLOOD ORDERABLES Final Resul t K[facility]T [address] [facility] Department [place] [address] * XR Hip Left 2 or 3 Views (10/09/2023 1:45 PM EXCAVATING CONTRACTOR) Anatomical Region Laterality Modality Lower Extremities, Hip, Pelvis Left C omputed Radiography 10/10/2023 9:01 AM EXCAVATING CONTRACTOR Narrative 10/10/2023 9:02 AM EXCAVATING CONTRACTOR EXAM DESCRIPTION: XR HIP LEFT 2 OR 3 VIEWS REASON FOR STUDY: left hip pain, Pain. R/o inflammatory arthritis ?? Left hip pain >2 years worse over last 2-3 months. ? TECHNIQUE: 2 ??radiographic view(s) of the ??left hip . COMPARISON: None FINDINGS: There is severe left hip osteoarthritis with [id number] contact, subchondral sclerosis and osteophyte formation. ??No fracture is seen. ?? Radiodense object projects over the right pelvis, uncertain whether internal or external to the patient. IMPRESSION: Severe left hip osteoarthritis. THIS IS AN ELECTRONICALLY VERIFIED FINAL REPORT 10/10/2023 9:02 AM - Electronically signed by ??Norberto Zimmerman M.D. JR: D: ??10/10/2023 9:02 AM T: ??10/10/2023 9:02 AM Report ID: [id number] Reading Location: ??[id number] Procedure Note Norberto Zimmerman MD - 10/10/2023 EXAM DESCRIPTION: XR HIP LEFT 2 OR 3 VIEWS REASON FOR STUDY: left hip pain, Pain. R/o inflammatory arthritis Left hip pain >2 years worse over last 2-3 months. TECHNIQUE: 2 radiographic view(s) of the left hip . COMPARISON: None FINDINGS: There is severe left hip osteoarthritis with [id number], subchondral sclerosis and osteophyte formation. No fracture is seen. Radiodense object projects over the right pelvis, uncertain whetherinternal or external to the patient. IMPRESSION: Severe left hip osteoarthritis. THIS IS AN ELECTRONICALLY VERIFIED FINAL REPORT 10/10/2023 9:02 AM - Electronically signed by Norberto Zimmerman M.D. 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
--- OUTSIDE RECORDS SUMMARY | 2024-11-15 05:54 | XMS_ITS | Encounter Summary ---
Author Organization [facility] Address [address] [place] [address] Care Team Providers Care Carbide Die Maker Name Role Phone Ni Armas RN Unavailable Lizette Timothy Land MD Primary Care Provider [phone] Encounter Details Date Type Department Care Team (Late st Contact Info) Description 09/25/2023 Telephone [facility] Cardiology [address] [place] [address] Myles Reyes MD [address] [facility] [address] [place] [address] Social History Tobacco Use Types Packs/Day Years Used Date Smoking Tobacco: Never Smokeless Tobacco: Never Alcohol Use Standard Drinks/Week Comments Not Currently 0 (1 standard drink = 0.6 oz pur e alcohol) Comments Unknown Sex and Gender Information Value Date Recorded Sex Assigned at Not on file Legal Sex Female 1:14 AM OFFICE 365 CONSULTANT Gender Identity Female 05/04/2020 3:33 PM CDT Sexual Orientation Not on file 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 * Telephone Encounter - Myles Reyes MD - 09/25/2023 12:38 PM CDT Yes that is fine if advised she hold anticoagulation. * Telephone Encounter - Yesenia Villafana RN - 09/25/2023 8:46 AM CDT Pt is having a suprapubic catheter placed on .. Asking if they can hold Eliquis for 2-3 days. ( Pt has hx renal problems.). Please advise * Telephone Encounter - Leonie Cronin - 09/25/2023 8:14 AM CDT Mae states pt is scheduled with Dr. Hernandez (urologist) on 10/03. States they sent a cardiac clearance request. Requesting call back to confirm we received it. Contact: documented in this encounter Plan of Treatment Not on file documented as of this encounter Visit Diagnoses Not on filedocumented in this encounter Care Teams Carbide Die Maker Relationship Specialty Start Date End Date Timothy Donis MD PCP - General Family Practice 04/12/23 Ni Armas, BILLY Registered Nurse Pulmonary Disease 01/11/23 documented as of this encounter
--- OUTSIDE RECORDS SUMMARY | 2024-11-15 05:54 | XMS_ITS | Encounter Summary ---
Author Organization [facility] Healthcare Address [address] [place] [address] Care Team Providers Care Casino Worker Name Role Phone Ni Armas RN Unavailable Lizette Timothy Land MD Primary Care Provider [phone] Encounter Details Date Type Department Care Team (Late st Contact Info) Description 01/15/2024 8:05 AM REINSURANCE CLAIMS ANALYST Lab [facility] Lab [address] [place] [id number] High risk medication use Social History Tobacco Use Types Packs/Day Years Used Date Smoking Tobacco: Never Smokeless Tobacco: Never Alcohol Use Standard Drinks/Week Comments Not Currently 0 (1 standard drink = 0.6 oz pur e alcohol) Comments Unknown Sex and Gender Information Value Date Recorded Sex Assigned at Not on file Legal Sex Female 1:14 AM REINSURANCE CLAIMS ANALYST Gender Identity Female 05/04/2020 3:33 PM CDT Sexual Orientation Not on file 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 file Not on file documented as of this encounter Plan of Treatment Not on file documented as of this encounter Procedures Procedure Name Priority Date/Time Associated Diagnosis Comments EGFR Routine 01/15/2024 8:08 AM REINSURANCE CLAIMS ANALYST High risk medication use DIFFERENTIAL AUTO Routine 01/15/2024 8:0 8 AM REINSURANCE CLAIMS ANALYST High risk medication use CBC WITH AUTO DIFFERENTIAL Routine 01/15/2024 8:08 AM REINSURANCE CLAIMS ANALYST High risk medication use ERYTHROCYTE SEDIMENTATION RATE Routine 01/15/2024 8:08 AM REINSURANCE CLAIMS ANALYST High risk medication use CRP (ACUTE PHASE) Routine 01/15/2024 8:0 8 AM REINSURANCE CLAIMS ANALYST High risk medication use COMPREHENSIVE METABOLIC PANEL Routine 01/15/2024 8:08 AM REINSURANCE CLAIMS ANALYST High risk medication use documented in this encounter Results * eGFR (01/15/2024 8:08 AM REINSURANCE CLAIMS ANALYST) eGFR 59 mL/min/1. 73 m2 KURT CRAIG Comment: Interpretive Data Reference Interval Normal ?>/= 90 mL/min/1.73m2 Mildly decreased* ? 60 - 89 mL/min/1.73m2 Mildly to moderately decreased ?45 - 59 mL/min/1.73m2 Moderately to severely decreased ??30 - 44 mL/min/1.73m2 Severely decreased ?15 - 29 mL/min/1.73m2 Kidney Failure ?< 15 ??mL/min/1.73m2 *Relative to young adult level Estimated glomerular filtration rate is determined by the 2020 CKD-EPI equation recommended by the National Kidney Foundation (A Unifying Approach to GFR Estimation: Recommendations of the NKF-ASK Task Force on Reassessing the Inclusion of Race in Diagnosing Kidney Disease, JASN 2020). The CKD-EPI equation should not be used for patients with unstable renal function and has not been validated in children and those over 70. Current interpretive data was last reviewed 2021. Testing performed by: [facility], [address] [place] [address], [place]., [address] Blood 01/15/2024 8:08 AM REINSURANCE CLAIMS ANALYST 01/15/2024 8:32 AM REINSURANCE CLAIMS ANALYST us Sandra Bauman MD LAB BLOOD ORDERABLES Final Resul t KURT CRAIG [address] [facility] Department [place] [address] * (ABNORMAL) Differential, auto (01/15/2024 8:08 AM REINSURANCE CLAIMS ANALYST) Neutrophil abs 7.9(H) 1.5 - 6.5 K/cumm KURT Comment:Testing performed by : [address] [address] Imm gran abs 0.1 0.0 - 0.1 K/cumm KURT Comment:Testing performed by : [address] [address] Lymphocyte abs 2.0 0.8 - 3.3 K/cumm KURT Comment:Testing performed by : [address] [address] Monocyte abs 0.9(H) 0.2 - 0.8 K/cumm KUTR Comment:Testing performed by : [address] [address] Eosinophil abs 0.3 0.0 - 0.5 K/cumm KURT Comment:Testing performed by : [address] [address] Basophil abs 0.0 0.0 - 0.1 K/cumm KURT Comment:Testing performed by : [address] [address] Neutrophil pct 70.7 % KURT Comment: Interpretive Data Percent cell count reference ranges are not reported, since discordance with absolute values may lead to misinterpretation of CBC data. Current Interpretive Data was last revised on 2018. Testing performed by: [address] [address] Imm gran pct 0.5 % KURT Comment: Interpretive Data Percent cell count reference ranges are not reported, since discordance with absolute values may lead to misinterpretation of CBC data. Current Interpretive Data was last revised on 2018. Testing performed by: [address] [address] Lymphocyte pct 17.5 % KURT Comment: Interpretive Data Percent cell count reference ranges are not reported, since discordance with absolute values may lead to misinterpretation of CBC data. Current Interpretive Data was last revised on 2018. Testing performed by: [address] [address] Monocyte pct 8.1 % KURT Comment: Interpretive Data Percent cell count reference ranges are not reported, since discordance with absolute values may lead to misinterpretation of CBC data. Current Interpretive Data was last revised on 2018. Testing performed by: [address] [address] Eosinophil pct 3.0 % KURT Comment: Interpretive Data Percent cell count reference ranges are not reported, since discordance with absolute values may lead to misinterpretation of CBC data. Current Interpretive Data was last revised on 2018. Testing performed by: [address] [address] Basophil pct 0.2 % KURT Comment: Interpretive Data Percent cell count reference ranges are not reported, since discordance with absolute values may lead to misinterpretation of CBC data. Current Interpretive Data was last revised on 2018. Testing performed by: [address] [address] Blood 01/15/2024 8:08 AM REINSURANCE CLAIMS ANALYST 01/15/2024 8:32 AM REINSURANCE CLAIMS ANALYST us Sandra Bauman MD LAB BLOOD ORDERABLES Final Resul t KURT [address] [facility] Department [place] [address] * (ABNORMAL) CBC with auto differential (01/15/2024 8:08 AM REINSURANCE CLAIMS ANALYST) WBC 11.2(H) 3.8 - 9.9 K/cumm KURT CRAIG Comment:Testing performed by : [address] [address] Hgb 9.5(L) 11.9 - 15.5 g/dL KURT CRAIG Comment:Testing performed by : [address] [address] Hct 31.3(L) 35.6 - 45.5 % KURT Comment:Testing performed by : [address] [address] Plt 237 150 - 400 K/cumm KURT Comment:Testing performed by : [address] [address] MPV 9.6 9.1 - 12.3 fL KURT Comment:Testing performed by : [address] [address] RBC 3.18(L) 3.90 - 5.20 M/cumm KURT Comment:Testing performed by : [address], [address] MCV 98.4(H) 81.3 - 96.4 fL KURT Comment:Testing performed by : [address] [address] MCH 29.9 27.1 - 33.3 pg KURT Comment:Testing performed by : [address], [address] MCHC 30.4(L) 32.3 - 35.7 g/dL KURT Comment:Testing performed by : [address], [address] RDW CV 13.6 11.1 - 14.9 % KURT Comment:Testing performed by : [address] [address] RDW SD 49.4(H) 35.7 - 48.1 fL KURT Comment:Testing performed by : [address], [address] NRBC abs 0.00 0.00 - 0.01 K/cumm KURT Comment:Testing performed by : [address], [address] Blood 01/15/2024 8:08 AM REINSURANCE CLAIMS ANALYST 01/15/2024 8:32 AM REINSURANCE CLAIMS ANALYST us Sandra Bauman MD LAB BLOOD ORDERABLES Final Resul t KURT [address] [facility] Department [place] [address] * (ABNORMAL) Comprehensive metabolic panel (01/15/2024 8:08 AM REINSURANCE CLAIMS ANALYST) Sodium 140 135 - 145 mmol/L KURT Comment:Testing performed by : [address] [address] Potassium, pl 4.3 3.3 - 4.9 mmol/L KURT Comment:Testing performed by : [address], [place]., [address] Chloride 99 97 - 110 mmol/L KURT Comment:Testing performed by : [address], [place]., [address] CO2 30 22 - 32 mmol/L KURT Comment:Testing performed by : [address] [address] Anion gap 11 2 - 15 mmol/L KURT Comment:Testing performed by : [address] [address] BUN 41(H) 6 - 25 mg/dL KURT Comment:Testing performed by : [address] [address] Creatinine 1.00 0.60 - 1.10 mg/dL KURT Comment:Testing performed by : [address] [address] Glucose 82 70 - 199 mg/dL KURT [...] was last revised 2022. Testing performed by: [address] [address] Calcium 9.7 8.5 - 10.3 mg/dL KURT Comment:Testing performed by : [address] [address] Bilirubin, total 0.2 0.1 - 1.2 mg/dL KURT Comment:Testing performed by : [address] [address] Protein, pl 6.4(L) 6.5 - 8.5 g/dL KURT Comment:Testing performed by : [address] [address] Albumin 4.0 3.5 - 5.0 g/dL KURT Comment:Testing performed by : [address] [address] Alk phos 33(L) 40 - 130 Units/L KURT Comment:Testing performed by : [address] [address] ALT 8 7 - 45 Units/L KURT Comment:Testing performed by : [address] [address] AST 10 10 - 45 Units/L KURT Comment:Testing performed by : [address], [address] Blood 01/15/2024 8:08 AM REINSURANCE CLAIMS ANALYST 01/15/2024 8:32 AM REINSURANCE CLAIMS ANALYST Sandra Bauman MD LAB BLOOD ORDERABLES Final Resul t [facility] [address] [facility] Department of Laboratories [place], [place] [id number] * CRP (acute phase) (01/15/2024 8:08 AM REINSURANCE CLAIMS ANALYST) CRP 2.1 <=10.0 mg/L KURT Comment:Testing performed by : [address] [address] Blood 01/15/2024 8:08 AM REINSURANCE CLAIMS ANALYST 01/15/2024 8:32 AM REINSURANCE CLAIMS ANALYST Sandra Bauman MD LAB BLOOD ORDERABLES Final Resul t Performing Organization Address City/[facility]/ZIP Co de Phone Number [facility] [address] [facility] [place] [address] * Erythrocyte sedimentation rate (01/15/2024 8:08 AM REINSURANCE CLAIMS ANALYST) Erythrocyte sedimentation rate 12 1 - 30 mm/hr KURT Comment:Testing performed by : [facility], [address] [place] [address]., [address] Blood 01/15/2024 8:08 AM REINSURANCE CLAIMS ANALYST 01/15/2024 8:32 AM REINSURANCE CLAIMS ANALYST us Sandra Bauman MD LAB BLOOD ORDERABLES Final Resul t Performing Organization Address [facility] Co de Phone Number [place] [address] [facility] [place] Location, [place] [address] documented in this encounter Visit Diagnoses Diagnosis High risk medication use documented in this encounter Care Teams Casino Worker Relationship Specialty Start Date End Date Timothy Donis MD PCP - General Family Practice 04/12/23 Ni Armas, BILLY Registered Nurse Pulmonary Disease 01/11/23 documented as of this encounter
--- OUTSIDE RECORDS SUMMARY | 2024-11-15 05:54 | XMS_ITS | Encounter Summary ---
Author Organization [facility] Address [address] [facility] [address] [place] [address] Phone Care Team Providers Care Natural Resources Engineer Name Role Phone Ni Armas RN Unavailable Lizette Timothy Land MD Primary Care Provider [phone] Reason for Referral * Procedure (Routine) - Closed Specialty Diagnoses / Procedures Referred By Contmeghana t Referred To Contact Diagnoses ILD (interstitial lung disease) (CMS/HCC) (HCC) STARR on CPAP Procedures Pulmonary Function Test -[facility] Adult PFT Lab- CAM-8D; Spirometry, Oxygen Assessment Titration Denita Correa MD [address] [place] [address] Phone: tel: fax: Referral ID Status Reason Start Date Expiration Date Visits Re quested Visits Authorized [id number] Closed 04/26/2023 05/25/2024 1 1 Reason for Visit * Procedure (Routine) - Closed Specialty Diagnoses / Procedures Referred By Contac t Referred To Contact Diagnoses ILD (interstitial lung disease) ([facility]) ([facility]) STARR on CPAP Procedures Pulmonary Function Test -[facility]FT [facility]- CAM-8D; Spirometry, Oxygen Assessment Titration Denita Correa MD [address] [address] Phone: tel: fax: Referral ID Status Reason Start Date Expiration Date Visits Re quested Visits Authorized [id number] Closed 04/26/2023 05/25/2024 1 1 Encounter Details Date Type Department Care Team (Latest Contact Info) Description 09/19/2023 2:53 PM CDT - 09/19/2023 11:59 PM CDT Hospital Encounter [facility] Pulmonary [address] [facility] [address] [place] [address] ILD (interstitial lung disease) (CMS/HCC) (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 Not on [...] (Orencia ClickJect) 125 mg/mL auto-injector 06/22/2022 3 dilTIAZem CD (CARDIZEM CD) 300 mg [...] once daily 30 tablet 11 06/17/[address] (PROTONIX) 40 mg EC tablet Take 1 tablet (40 mg total) by mouth daily 90 tablet 1 06/17/2023 4 predniSONE (DELTASONE) 2.5 mg tablet TAKE 1 TABLET(2.5 MG) BY MOUTH DAILY 30 tablet 2 08/26/2023 4 sacubitriL-valsa rtan (ENTRESTO) 24-26 mg tabletIndication [...] Diagnosis Comments PULMONARY FUNCTION TEST (PFT) Routine 09/19/2023 3:18 PM CDT ILD (interstitial lung disease) (CMS/HCC) (HCC) STARR on CPAP documented in this encounter Results * Pulmonary Function Test - (09/19/2023 3:18 PM CDT) FVC PRE 1.01 L [facility] FVC %PRE PRED 40 % [facility] FEV1 PRE 0.86 L [facility] FEV1 %PRE PRED 44 % [facility] FEV1/FVC PRE 84.9 % [facility] Anatomical Region Laterality Modality PFT 09/19/2023 [...] and %HbO2 is age dependent. However, the [facility] Pulmonary Function Laboratory defines hypoxemia as a PO2 <55 or a %HbO2 <89. Narrative 09/23/2023 2:28 PM CDT Table formatting from the original result was not included. [facility] Division of Pulmonary & Critical Care Medicine [address] [place] [address]; [place] [address] [facility]; [place], [place] ??[address]; [phone] Pulmonary Function Laboratory Pulmonary Stress Test Simple/Oxygen [...] rate of perceived exertion (1-10 dyspnea scale) ??Vicotr M, CHEST 2003; [id number] Walk Test Summary: [...] with the written final report. 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
--- OUTSIDE RECORDS SUMMARY | 2024-11-15 05:54 | XMS_ITS | Encounter Summary ---
Author Organization [facility] Healthcare Address [address] [place] [address] Care Team Providers Care Roentgenology Teacher Name Role Phone Ni Armas RN Unavailable Lizette Timothy Land MD Primary Care Provider [phone] Reason for Visit * Reason Onset Date Comments Epistaxis (Nose Bleed) 11/17/2023 Encounter Details Date Type Department Care Team (Late st Contact Info) Description 11/17/[address] [facility] Medical Group Cardiology [address] [facility] [address] [place] [address] Romy Price MD [address] [facility] [address] [place] [address] Epistaxis (Nose Bleed) Social History Tobacco Use Types Packs/Day Years Used Date Smoking Tobacco: Never Smokeless Tobacco: Never Alcohol Use Standard Drinks/Week Comments Not Currently 0 (1 standard drink = 0.6 oz pur e alcohol) Comments Unknown Sex and Gender Information Value Date Recorded Sex Assigned at Not on file Legal Sex Female 1:14 AM GLASS CLEANING MACHINE TENDER Gender Identity Female 05/04/2020 3:33 PM CDT Sexual Orientation Not on file 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 Advised to call with any questions or concerns. Pt has f/u with pcp this week. S CLEANING MACHINE TENDER * Telephone Encounter - Romy Price MD - 11/17/2023 6:21 PM GLASS CLEANING MACHINE TENDER Patient had more epistaxis on Eliquis 5 mg b.i.d.. Soaked through two paper towels, but was stopping. I advised her and her daughter to hold the Eliquis for 4 doses then resume. Go to the ER if it doesn't stop. S CLEANING MACHINE TENDER documented in this encounter Plan of Treatment Not on file documented as of this encounter Visit Diagnoses Not on filedocumented in this encounter Care Teams Roentgenology Teacher Relationship Specialty Start Date End Date Timothy Donis MD PCP - General Family Practice 04/12/23 Ni Armas, RN Registered Nurse Pulmonary Disease 01/11/23 documented as of this encounter
--- OUTSIDE RECORDS SUMMARY | 2024-11-15 05:54 | XMS_ITS | Encounter Summary ---
Author Organization [facility] Address [address] [facility] [address] [place] [address] Care Team Providers Care Branch Logistics Supervisor Name Role Phone Ni Armas RN Unavailable Lizette Timothy Land MD Primary Care Provider [phone] Encounter Details Date Type Department Care Team (Late st Contact Info) Description 05/02/2023 Telephone [facility] Medical Group Cardiology [address] [facility] [address] [facility] [address] [place] [address] Yolanda Soto NP [address] [facility] [address] [place] [address] Social History Tobacco Use Types Packs/Day Years Used Date Smoking Tobacco: Never Smokeless Tobacco: Never Alcohol Use Standard Drinks/Week Comments Not Currently 0 (1 standard drink = 0.6 oz pur e alcohol) Comments Unknown Sex and Gender Information Value Date Recorded Sex Assigned at Not on file Legal Sex Female 1:14 AM FAMILY INDEPENDENCE CASE MANAGER Gender Identity Female 05/04/2020 3:33 PM CDT Sexual Orientation Not on file 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 Reviewed message from [place] and she verbalized understanding. Sending lab orders to and she will have drawn in one month. * Telephone Encounter - Yolanda Soto NP - 05/02/2023 12:58 PM CDT Please call both patient and daughter and let them know I received the copy of her labs done April 19and May 01. Her kidney function has declined a little bit since starting the Entresto. However, I ask her to continue Entresto and recheck kidney function (BMP) in another month to see if it remains stable. If it remains stable we will keep her on Entresto to reduce the chance of more CHF hospitalizations. If it continues to decline, we may need to stop the Entresto. A little bit of a decline in kidney function is acceptable if the Entresto is keeping her stable, we just want to make sure it doesn't continue to get worse. 03/15/2023 K 3.8, BUN 28, creatinine 1.1, GFR 49 04/11/2023 K 4.3, BUN 28, creatinine 1.0, GFR 54 (day of discharge from hospital) 04/12/2023 Dr. Reyes wrote prescription for Entresto 04/19/2023 K 4.7, BUN 32, creatinine 1.5, GFR 34 05/01/2023 K 4.2, BUN 26, creatinine 1.4, GFR 37 documented in this encounter Plan of Treatment Not on file documented as of this encounter Procedures Procedure Name Priority Date/Time Associated Diagnosis Comments BASIC METABOLIC PANEL Routine 06/24/2023 Chronic heart failure with preserved ejection fraction (CMS/HCC) (HCC) documented in this encounter Results * (ABNORMAL) Basic metabolic panel (06/24/2023) SCRIBED Sodium 137 137 - 145 mmol/L EXTERNAL LAB SCRIBED Potassium 4.3 3.4 - 5.0 mmol/L EXTERNAL LAB SCRIBED Chloride 104 98 - 107 mmol/L EXTERNAL LAB SCRIBED Carbon Dioxide 31(A) 22 - 30 mmol/L EXTERNAL LAB SCRIBED Anion Gap 2(A) 8 - 16 mmol/L EXTERNAL LAB SCRIBED Urea Nitrogen (BUN) 40(A) 7 - 17 mg/dl EXTERNAL LAB SCRIBED Creatinine 1.20(A) 0.7 - 1.0 mg/dl EXTERNAL LAB SCRIBED Glucose 91 65 - 110 mg/dl EXTERNAL LAB SCRIBED Calcium 10.0 8.4 - 10.2 mg/dl EXTERNAL LAB SCRIBED eGFR in N/A N/A EXTERNAL LAB SCRIBED eGFR in NonAfrican [facility] 44 > or = 60 EXTERNAL LAB Blood 06/24/2023 Yolanda Soto NP LAB BLOOD ORDERABLES Tg l Result EXTERNAL LAB documented in this encounter Visit Diagnoses Diagnosis Chronic heart failure with preserved ejection fraction (CMS/HCC) (HCC)- Primary documented in this encounter Care Teams Branch Logistics Supervisor Relationship Specialty Start Date End Date Timothy Donis MD PCP - General Family Practice 04/12/23 Ni Armas, RN Registered Nurse Pulmonary Disease 01/11/23 documented as of this encounter
--- OUTSIDE RECORDS SUMMARY | 2024-11-15 05:54 | XMS_ITS | Encounter Summary ---
Author Organization [facility] Address [address] [place] [address] Care Team Providers Care Guide Winder Name Role Phone Ni Armas RN Unavailable Lizette Timothy Land MD Primary Care Provider [phone] [phone] Encounter Details Date Type Department Care Team (Late st Contact Info) Description 06/17/[address] 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 Gender Identity Female 05/04/2020 3:33 PM CDT Sexual Orientation Not on file 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 Not on file Not on file documented as of this encounter Ordered Prescriptions Prescription Sig Dispense Quantity Refills Last Filled Start Date End Date metoprolol XL (TOPROL-XL) 50 mg extended release tablet Take 1 tablet (50 mg total) by mouth daily To be taken with Metoprolol 100 mg tablet once daily 30 tablet 11 06/17/2023 metoprolol XL (TOPROL-XL) 100 mg 24 hr tablet Take 1 tablet (100 mg total) by mouth daily To be taken with Metoprolol 50 mg tablet once daily 30 tablet 11 06/17/[address] (PROTONIX) 40 mg EC tablet Take 1 tablet (40 mg total) by mouth daily 90 tablet 1 06/17/2023 4 documented in this encounter Miscellaneous Notes * Telephone Encounter - Yesenia Clements RN - 06/18/2023 8:38 AM CDT Note below reviewed with pts daughter in detail. She is taking pt Saturday to get BMP done. Refaxed order for BMP. * Telephone Encounter - Yolanda Soto NP - 06/17/2023 5:37 PM CDT She has had recurrent admissions for CHF this year. I am very hesitant to reduce her dose of diuretic. Therefore I recommend that she try your suggestion of dosing earlier in the day, and limiting fluid in the evening. Let us see if that works 1st. Also, she is due to get a repeat BMP. Let us make sure that her electrolytes and renal function are okay due to the leg pain. She was supposed to get a repeat BMP for me a couple of weeks ago. I do not see a result. 03/15/2023 K 3.8, BUN 28, creatinine 1.1, GFR 49 04/11/2023 K 4.3, BUN 28, creatinine 1.0, GFR 54 (day of discharge from hospital) 04/12/2023 Dr. Reyes wrote prescription for Entresto 04/19/2023 K 4.7, BUN 32, creatinine 1.5, GFR 34 05/01/2023 K 4.2, BUN 26, creatinine 1.4, GFR 37 * Addendum Note - Yesenia Clements RN - 06/17/2023 12:31 PM CDTAddended by: YESENIA CLEMENTS on: 06/17/2023 12:31 PM Modules accepted: Orders * Telephone Encounter - Yesenia Clements RN - 06/17/2023 12:17 PM CDT Spoke with pts daughter Mae. Pt is having to get up frequently at HS due toFurosemide. Sometimes 12 times a night. She is currently taking 40 mg BID , at 9 am and 5 pm. States pt has no swelling . Her breathing is unchanged. Daughter is asking if she could cut back to 60 mg ( 40 am, 20 mg for second dose) I also advised her to take pills at 09 and 1400 and limit fluid in the evening. Pt is also complaining of pain in legs bilaterally, constant aching, hurts to walk. Pt see Rheumatology next Saturday. Please advise Refill on metoprolol sent in as requested. Pt is on 150 mg dialy- taking 100 and 50 mg tablet once daily) med list updated as well. ( Verified by pts daughter and hospital DC ) * Telephone Encounter - Kavya Luciano MA - 06/17/2023 9:09 AM CDT Refills approved and sent to pharmacy as requested. Left message for second message to be addressed. * Telephone Encounter - Apurva Schwarz - 06/17/2023 8:31 AM CDT Pt daughter states for the past 3 weeks pt has been not able to get much sleep due to the increase in dose of furosemide (LASIX) 20 mg tablet. States it has been causing her to get up every 20 min atnight. Also reports it has been extremely painful for her to walk. PT daughter requesting a call back for clarification on pt script for Metoprolol as the pharmacy states it has been discontinued forthe pt. Contact:[phone] * Telephone Encounter - Apurva Schwarz - 06/17/2023 8:27 AM CDT Pt requesting refill for pantoprazole DR (PROTONIX) 40 mg EC tablet with 90 day supply be sent to [facility]. Contact:[phone] documented in this encounter Plan of Treatment Not on file documented as of this encounter Visit Diagnoses Diagnosis Longstanding persistent atrial fibrillation (CMS/HCC) (HCC) documented in this encounter Discontinued Medications Medication Sig Discontinue Reason Start Date End Da te pantoprazole DR (PROTONIX) 40 mg EC tablet Take 1 tablet (40 mg total) by mouth daily Reorder 06/17/2023 metoprolol XL (TOPROL-XL) 25 mg extended release tabletIndications:Longsta nding persistent atrial fibrillation (CMS/HCC) (HCC) Take 2 tablets (50 mg total) by mouth daily 07/04/2022 06/17/2023 documented as of this encounter Care Teams Guide Winder Relationship Specialty Start Date End Date Timothy Donis MD PCP - General Family Practice 04/12/23 Ni Armas, RN Registered Nurse Pulmonary Disease 01/11/23 documented as of this encounter
--- OUTSIDE RECORDS SUMMARY | 2024-11-15 05:54 | XMS_ITS | Encounter Summary ---
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); Osteopenia of multiple sites; High risk medication use Social History Tobacco Use Types Packs/Day Years Used Date Smoking Tobacco: Never Smokeless Tobacco: Never Alcohol Use Standard Drinks/Week Comments Not Currently 0 (1 standard drink = 0.6 oz pur e alcohol) Comments Unknown Sex and Gender Information Value Date Recorded Sex Assigned at Not on file Legal Sex Female 1:14 AM LINE OUT MAN Gender Identity Female 05/04/2020 3:33 PM CDT Sexual Orientation Not on file 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 Not on file Not on file documented as of this encounter Plan of Treatment Not on file documented as of this encounter Procedures Procedure Name Priority Date/Time Associated Diagnosis Comments EGFR Routine 10/09/2023 1:49 PM LINE OUT MAN 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) Osteopenia of multiple sites High risk medication use DIFFERENTIAL AUTO Routine 10/09/2023 1:4 9 PM LINE OUT MAN 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) Osteopenia of multiple sites High risk medication use CBC WITH AUTO DIFFERENTIAL Routine 10/09/2023 1:49 PM LINE OUT MAN 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) Osteopenia of multiple sites High risk medication use ALDOLASE Routine 10/09/2023 1:49 PM LINE OUT MAN 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) Osteopenia of multiple sites High risk medication use ERYTHROCYTE SEDIMENTATION RATE Routine 10/09/2023 1:49 PM LINE OUT MAN 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) Osteopenia of multiple sites High risk medication use CRP (ACUTE PHASE) Routine 10/09/2023 1:4 9 PM LINE OUT MAN 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 73 m2 [facility] Comment: Interpretive [...] of Race in Diagnosing Kidney Disease, JASN 202). The CKD-EPI equation should not be used for patients with unstable renal function and has not been validated in children and those over 70. Current interpretive data was last reviewed 2021. Testing performed by: [address] [address] Blood 10/09/2023 1:49 PM LINE OUT MAN 10/09/2023 2:34 PM LINE OUT MAN us Sandra Bauman MD LAB BLOOD ORDERABLES Final Resul t [facility] Department [place] [address] * (ABNORMAL) Differential, auto (10/09/2023 1:49 PM LINE OUT MAN) Neutrophil abs 7.9(H) 1.7 - 6.5 K/cumm [facility] Comment:Testing performed by : [address] [address] Imm gran abs 0.0 0.0 - 0.1 K/cumm [facility] Comment:Testing performed by : [address] [address] Lymphocyte abs 1.1 0.8 - 3.3 K/cumm [facility] Comment:Testing performed by : [address] [address] Monocyte abs 0.8 0.2 - 0.8 K/cumm [facility] Comment:Testing performed by : [address] [address] Eosinophil abs 0.3 0.0 - 0.5 K/cumm [facility] Comment:Testing performed by : [address] [address] Basophil abs 0.1 0.0 - 0.1 K/cumm [facility] Comment:Testing performed by : [address] [address] Neutrophil pct 77.1 % [facility] Comment: Interpretive Data Percent cell count reference ranges are not reported, since discordance with absolute values may lead to misinterpretation of CBC data. Current Interpretive Data was last revised on 2018. Testing performed by: [address] [address] Imm gran pct 0.4 % [facility] Comment: Interpretive Data Percent cell count reference ranges are not reported, since discordance with absolute values may lead to misinterpretation of CBC data. Current Interpretive Data was last revised on 2018. Testing performed by: [address] [address] Lymphocyte pct 10.8 % [facility] Comment: Interpretive Data Percent cell count reference ranges are not reported, since discordance with absolute values may lead to misinterpretation of CBC data. Current Interpretive Data was last revised on 2018. Testing performed by: [address] [address] Monocyte pct 8.0 % [facility] Comment: Interpretive Data Percent cell count reference ranges are not reported, since discordance with absolute values may lead to misinterpretation of CBC data. Current Interpretive Data was last revised on 2018. Testing performed by: [address] [address] Eosinophil pct 3.1 % [facility] Comment: Interpretive Data Percent cell count reference ranges are not reported, since discordance with absolute values may lead to misinterpretation of CBC data. Current Interpretive Data was last revised on 2018. Testing performed by: [address] [address] Basophil pct 0.6 % [facility] Comment: Interpretive Data Percent cell count reference ranges are not reported, since discordance with absolute values may lead to misinterpretation of CBC data. Current Interpretive Data was last revised on 2018. Testing performed by: [address] [address] Blood 10/09/2023 1:49 PM LINE OUT MAN 10/09/2023 2:34 PM LINE OUT MAN us Sandra Bauman MD LAB BLOOD ORDERABLES Final Resul t [facility] [address] [facility] Department [place] [address] * (ABNORMAL) Comprehensive metabolic panel (10/09/2023 1:49 PM LINE OUT MAN) Sodium 138 135 - 145 mmol/L [facility] Comment:Testing performed by : [address] [address] Potassium, pl 4.8 3.3 - 4.9 mmol/L [facility] Comment: HEMOLYZED: Hemolysis interferes with the above test. Testing performed by: [address] [address] Chloride 100 97 - 110 mmol/L [facility] Comment:Testing performed by : [address] [address] CO2 29 22 - 32 mmol/L [facility] Comment:Testing performed by : [address] [address] Anion gap 9 2 - 15 mmol/L [facility] Comment:Testing performed by : [address] [address] BUN 26(H) 6 - 25 mg/dL [facility] Comment:Testing performed by : [address] [address] Creatinine 1.10 0.60 - 1.10 mg/dL [facility] Comment:Testing performed by : [address] [address] Glucose 107 70 - 199 mg/dL [facility] [...] classification and Diagnosis of Diabetes Diabetes Care 2022; 46: S19-S40. Current interpretive data was last revised 2022. Testing performed by: [address] [address] Calcium 9.7 8.5 - 10.3 mg/dL [facility] Comment:Testing performed by : [address] [address] Bilirubin, total 0.2 0.1 - 1.2 mg/dL [facility] Comment:Testing performed by : [address] [address] Protein, pl 6.9 6.5 - 8.5 g/dL [facility] Comment:Testing performed by : [address] [address] Albumin 3.8 3.5 - 5.0 g/dL [facility] Comment:Testing performed by : [address] [address] Alk phos 46 40 - 130 Units/L [facility] Comment:Testing performed by : [address] [address] ALT 7 7 - 45 Units/L [facility] Comment: HEMOLYZED: Hemolysis interferes with the above test. Testing performed by: [address] [address] AST 20 10 - 45 Units/L [facility] Comment: HEMOLYZED: Hemolysis interferes with the above test. Testing performed by: [address] [address] Blood 10/09/2023 1:49 PM LINE OUT MAN 10/09/2023 2:34 PM LINE OUT MAN us Sandra Bauman MD LAB BLOOD ORDERABLES Final Resul t [facility] 2643 [facility] Department [place] [address] * (ABNORMAL) CBC with auto differential (10/09/2023 1:49 PM LINE OUT MAN) WBC 10.3(H) 3.8 - 9.9 K/cumm [facility] Comment:Testing performed by : [address] [address] Hgb 9.7(L) 11.9 - 15.5 g/dL [facility] Comment: Interpretive Data A reference range for this assay has not been established for patients with an unknown legal sex. Please refer to the laboratory test catalog for established sex-specific reference intervals. Current interpretive data was last revised on 2023. Testing performed by: [address] [address] Hct 31.8(L) 35.6 - 45.5 % [facility] Comment: Interpretive Data A reference range for this assay has not been established for patients with an unknown legal sex. Please refer to the laboratory test catalog for established sex-specific reference intervals. Current interpretive data was last revised on 2023. Testing performed by: [address] [address] Plt 287 150 - 400 K/cumm [facility] Comment:Testing performed by : [address] [address] MPV 10.5 9.1 - 12.3 fL [facility] Comment:Testing performed by : [address] [address] RBC 3.08(L) 3.90 - 5.20 M/cumm [facility] Comment: Interpretive Data A reference range for this assay has not been established for patients with an unknown legal sex. Please refer to the laboratory test catalog for established sex-specific reference intervals. Current interpretive data was last revised on 2023. Testing performed by: [address] [address] MCV 103.2(H) 81.3 - 96.4 fL [facility] Comment:Testing performed by : [address] [address] MCH 31.5 27.1 - 33.3 pg [facility] Comment:Testing performed by : [address] [address] MCHC 30.5(L) 32.3 - 35.7 g/dL [facility] Comment:Testing performed by : [address] [place]., [address] RDW CV 12.7 11.1 - 14.9 % [facility] Comment:Testing performed by : [address] [address] RDW SD 47.7 35.7 - 48.1 fL [facility] Comment:Testing performed by : [facility], [address] [place] [address]., [address] NRBC abs 0.00 0.00 - 0.01 K/cumm [facility] Comment:Testing performed by : [address] [address] Blood 10/09/2023 1:49 PM LINE OUT MAN 10/09/2023 2:34 PM LINE OUT MAN Sandra Bauman MD LAB BLOOD ORDERABLES Final Resul t Performing Organization Address City/[facility]/ZIP Co de Phone Number [address] [place] [address] * Creatine kinase (CK), total (10/09/2023 1:49 PM LINE OUT MAN) CK 79 30 - 200 Units/L [facility] Comment: HEMOLYZED: Hemolysis interferes with the above test. Testing performed by: [address] [address] Blood 10/09/2023 1:49 PM LINE OUT MAN 10/09/2023 2:34 PM LINE OUT MAN Sandra Bauman MD LAB BLOOD ORDERABLES Final Resul t [address] trippiece [place], [place] [id number] * Aldolase (10/09/2023 1:49 PM LINE OUT MAN) Aldolase 5.6 0.1 - 8.0 Units/L [facility] Comment:Testing performed by : [facility], [address] [place]., [address] Blood 10/09/2023 1:49 PM LINE OUT MAN 10/09/2023 5:38 PM LINE OUT MAN us Sandra Bauman MD LAB BLOOD ORDERABLES Final Resul t Performing Organization Address [facility] [[email or web address]] Co de Phone Number [address] [address] * (ABNORMAL) CRP (acute phase) (10/09/2023 1:49 PM LINE OUT MAN) CRP 11.7(H) <=10.0 mg/L [facility] Comment:Testing performed by : [address] [address] Blood 10/09/2023 1:49 PM LINE OUT MAN 10/09/2023 2:34 PM LINE OUT MAN us Sandra Bauman MD LAB BLOOD ORDERABLES Final Resul t Performing Organization Address [facility] [[email or web address]] Co de Phone Number [address] [address] * (ABNORMAL) Erythrocyte sedimentation rate (10/09/2023 1:49 PM LINE OUT MAN) Pathologist [facility] Erythrocyte sedimentation rate 44(H) 1 - 30 mm/hr [facility] Comment:Testing performed by : [address] [address] Blood 10/09/2023 1:49 PM LINE OUT MAN 10/09/2023 2:34 PM LINE OUT MAN us Sandra Bauman MD LAB BLOOD ORDERABLES Final Resul t Performing Organization Address City/[facility] [[email or web address]] Co de Phone Number [address] [address] documented in this encounter Visit Diagnoses Diagnosis 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
--- OUTSIDE RECORDS SUMMARY | 2024-11-15 05:54 | XMS_ITS | Encounter Summary ---
Author Organization [facility] Address [address] [place] [address] Care Team Providers Care Electrical Sign Servicer Name Role Phone Ni Armas RN Unavailable Lizette Timothy Land MD Primary Care Provider [phone] Reason for Visit * Cardiology (Routine) - Closed Specialty Diagnoses / Procedures Referred By Contac t Referred To Contact Diagnoses HFrEF (heart failure with reduced ejection fraction) (CMS/HCC) ([facility]) Procedures Transthoracic Echo (TTE) Complete W Doppler/CF Cee Washington NP [address] [address] Phone: tel: fax: [facility] Referral ID Status Reason Start Date Expiration Date Visits Re quested Visits Authorized [id number] Closed 04/26/2023 05/25/2024 1 1 Encounter Details Date Type Department Care Team (Latest Contact Info) Description 07/26/2023 1:00 PM CDT Ancillary Procedure [facility] Cardiology [address] [place] [phone] HFrEF (heart failure with reduced ejection fraction) (CMS/HCC) ([facility]) Social History Tobacco Use Types Packs/Day Years Used Date Smoking Tobacco: Never Smokeless Tobacco: Never Alcohol Use Standard Drinks/Week Comments Not Currently 0 (1 standard drink = 0.6 oz pur e alcohol) Comments Unknown Sex and Gender Information Value Date Recorded Sex Assigned at Not on file Legal Sex Female 1:14 AM [employer] Gender Identity Female 05/04/2020 3:33 PM CDT Sexual Orientation Not on file 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 Not on file Not on file documented as of this encounter Last Filed Vital Signs Vital Sign Reading Time Taken Comments Blood Pressure 121/77 07/26/2023 1:52 PM CDT Pulse - - Temperature - - Respiratory Rate - - Oxygen Saturation - - Inhaled Oxygen Concentration - - Weight - - Height - - Body Mass Index - - documented in this encounter Plan of Treatment Not on file documented as of this encounter Procedures Procedure Name Priority Date/Time Associated Diagnosis Comments TRANSTHORACIC ECHO (TTE) COMPLETE W DOPPLER/CF WO CONTRAST Routine 07/26/2023 1:52 PM CDT HFrEF (heart failure with reduced ejection fraction) (CMS/HCC) (HCC) documented in this encounter Results * TRANSTHORACIC ECHO (TTE) COMPLETE W DOPPLER/CF WO CONTRAST (07/26/2023 1:52 PM CDT) Anatomical Region Laterality Modality Ultrasound 07/26/2023 1:21 PM CDT Narrative 07/26/2023 6:25 PM CDT [facility] Cardiology [address] [facility] [address] [address] [address] [facility] [address], [place] [address] P:[phone] P:[phone] Echocardiographic Report Patient Name: AYANNA CASH L : [id number] Study Date: 07/26/2023 1:21:58 PM Gender: F Tech: Location: [place] Ref.Provider: CEE WASHINGTON Height(Cm): 157 BSA: 2.28 Weight(Kg): 119.3 Heart Rate: 91 BP: 125 / 84 Quality: Good Order Provider: CEE WASHINGTON Procedures: Echocardiographic Report: Transthoracic echocardiogram with [...] Findings: Interpretation Site: Exam was interpreted at [facility]. Left Ventricle: Normal left ventricular size. Mild [...] Procedure Note Myles Reyes MD - 07/26/2023 [facility] Cardiology [address] [facility] [address] [address] [address] [facility] [address] [address] P:[phone] P:[phone] Echocardiographic Report Patient Name: AYANNA CASH LPatieunruly ID: [id number] : [id number] Date: 07/26/2023 1:21:58 PM Gender: FAccession #: [id number] Tech: Location: [place] Ref.Provider: CEE WASHINGTONHeight(Cm): 157 BSA: 2.28Weight(Kg): 119.3 Heart Rate: 91BP: 125 / 84 Quality: GoodOrder Provider: CEE WASHINGTON Procedures: Echocardiographic Report: Transthoracic echocardiogram with [...] Findings: Interpretation Site: Exam was interpreted at [facility]. Left Ventricle: Normal left ventricular size. Mild [...] Reyes MD 2023-07-26 18:25:24 CDT CC: CC: Cee Washington NP CV ECHO PROCEDURES Final Result documented in this encounter Visit Diagnoses Diagnosis HFrEF (heart failure with reduced ejection fraction) (CMS/HCC) ([facility]) documented in this encounter Care Teams Electrical Sign Servicer Relationship Specialty Start Date End Date Timothy Donis MD PCP - General Family Practice 04/12/23 Ni Armas, RN Registered Nurse Pulmonary Disease 01/11/23 documented as of this encounter
--- OUTSIDE RECORDS SUMMARY | 2024-11-15 05:54 | XMS_ITS | Encounter Summary ---
Author Organization [facility] Healthcare Address [address] [place] [address] Care Team Providers Care Consumer Lending Manager Name Role Phone Ni Armas RN Unavailable Lizette Timothy Land MD Primary Care Provider [phone] [phone] Reason for Referral * MRI/CAT/PET Scan (Routine) - Closed Specialty Diagnoses / Procedures Referred By Contac t Referred To Contact Radiology Diagnoses Chronic lumbar radiculopathy Procedures MRI Lumbar Spine WO Contrast Finn Brito MD [address] [place] [address] Phone: tel: fax: [address] [address] Referral ID Status Reason Start Date Expiration Date Visits Re quested Visits Authorized [id number] Closed 05/21/2024 06/20/2025 1 1 Reason for Visit * MRI/CAT/PET Scan (Routine) - Closed Specialty Diagnoses / Procedures Referred By Contac t Referred To Contact Radiology Diagnoses Chronic lumbar radiculopathy Procedures MRI Lumbar Spine WO Contrast Finn Brito MD [address] [place] [address] Phone: tel: fax: [address] [address] Referral ID Status Reason Start Date Expiration Date Visits Re quested Visits Authorized [id number] Closed 05/21/2024 06/20/2025 1 1 Encounter Details Date Type Department Care Team (Latest Contact Info) Description 07/16/2024 6:50 AM CDT - 07/16/2024 11:59 PM CDT Hospital Encounter [address] [address] Chronic lumbar radiculopathy Discharge Disposition: Discharge to home or self care Social History Tobacco Use Types Packs/Day Years Used Date Smoking Tobacco: Never Smokeless Tobacco: Never Alcohol Use Standard Drinks/Week Comments Not Currently 0 (1 standard drink = 0.6 oz pur e alcohol) Comments Unknown Sex and Gender Information Value Date Recorded Sex Assigned at Not on file Legal Sex Female 1:14 AM BOTTLE DEALER Gender Identity Female 05/04/2020 3:33 PM CDT Sexual Orientation Not on file 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 She will get this done at [facility] in [place] nearer where she lives ?? Patient reports left [...] flavum thickening. ??Mild left neural foraminal stenosis. ??Bxse-cd-bthycuvr spinal canal stenosis with mild narrowing of [...] INDIVIDUAL DISC LEVELS: T11-12: Mild disc bulge. ??Rcgd-rv-iimbinud facet arthropathy. ??Mild left eccentric ligamentum flavum thickening. ??Mild right neural foraminal stenosis. No spinal canal stenosis T12-L1: Disc bulge and mild osseous retropulsion of T11. ??Mild facet arthropathy and ligamentum flavum thickening. ??Qqnf-yd-ltdqvkjr right and mild left neural foraminal stenosis. ??No significant spinal canal stenosis L1-2: ?? Minimal disc bulge. ??Mild facet arthropathy and ligamentum flavum thickening. ??No neural foraminal or significant spinal canal stenosis. L2-3: ?? Disc bulge. ??Mild facet arthropathy and ligamentum flavum thickening. ?? Minimal bilateral neural foraminal stenosis . ??Mild spinal canal stenosis L3-4: ?? Disc bulge. ??Pynx-bc-izxjgfer facet arthropathy. ??Ligamentum flavum thickening. ??Mild bilateral neural foraminal stenosis. ??Mild spinal canal stenosis with mild bilateral lateral recess narrowing. L4-5: ?? Disc bulge . ??Moderate bilateral facet arthropathy with ligamentum flavum thickening. ??Mild bilateral neural foraminal stenosis. ?? Rnma-wg-lafswdej spinal canal stenosis with mild bilateral lateral [...] detailed level by level above. There is svlv-qu-hnpugtns spinal canal stenosis at L4-L5 and mild spinal canal stenosis at L2-L3 and L3-L4. Multilevel neural foraminal stenosis, up to exue-au-zcatczel on the right at T12-L1. Unchanged T11 [...] AM T: ??07/16/2024 8:47 AM Report ID: [id number] Reading Location: ??[id number] Procedure Note Rene Glass MD - 07/16/2024 EXAM DESCRIPTION: MRI LUMBAR SPINE WO CONTRAST REASON FOR STUDY: L/S-spine canal stenosis, Left S1 radiculopathyincluding dermatomal numbness, evaluate for stenosis causing nerve root impingement. She will get this done at [facility] in [place] near where she lives Patient reports left leg [...] flavum thickening. Mild left neural foraminal stenosis. Vzsp-ci-monjmryb spinal canal stenosis with mild narrowing of [...] size and signal intensity. Conus at the L1-D4maysi. LOWER THORACIC: There is mild appearing T9-T10 and T10-11 spinal canal stenosis in part secondary to mild T11 vertebral body osseousretropulsion. INDIVIDUAL DISC LEVELS: T11-12: Mild disc bulge. Fqvd-ne-chnthfmr facet arthropathy. Mild left eccentric ligamentum flavum thickening. Mild right neural foraminalstenosis. No spinal canal stenosis T12-L1: Disc bulge and mild osseous retropulsion of T11. Mild facet arthropathy and ligamentum flavum thickening. Rxcm-bb-nwcncdqq right andmild left neural foraminal stenosis. No significant spinal canal stenosis L1-2: Minimal disc bulge. Mild facet arthropathy and ligamentum flavum thickening. No neural foraminal or significant spinal canal stenosis. L2-3: Disc bulge. Mild facet arthropathy and ligamentum flavumthickening. Minimal bilateral neural foraminal stenosis . Mild spinal canal stenosis L3-4: Disc bulge. Hmop-eg-mdvgcsja facet arthropathy. Ligamentumflavum thickening. Mild bilateral neural foraminal stenosis. Mild spinal canal stenosis with mild bilateral lateral recess narrowing. L4-5: Disc bulge . Moderate bilateral facet arthropathy with ligamentum flavum thickening. Mild bilateral neural foraminal stenosis. Tnss-rc-qmltbapa spinal canal stenosis with mild bilateral lateral [...] as detailed levelby level above. There is iivf-uy-xjcnvbue spinal canal stenosis at L4-L5 andmild spinal canal stenosis at L2-L3 and L3-L4. Multilevel neural foraminal stenosis, up to qwix-wp-ziwghzkg on the right at T12-L1. Unchanged T11 [...] 8:47 AM - Electronically signed by Rene Glass M.D. MZ: SUSAN Report ID: [id number] Reading Location: [place] [address] us Finn Brito MD IMG MRI PROCEDURES Final R esult documented in this encounter Visit Diagnoses Diagnosis Chronic lumbar radiculopathy documented in this encounter Care Teams Consumer Lending Manager Relationship Specialty Start Date End Date Timothy Donis MD PCP - General Family Practice 04/12/23 Ni Armas, RN Registered Nurse Pulmonary Disease 01/11/23 documented as of this encounter
--- OUTSIDE RECORDS SUMMARY | 2024-11-15 05:54 | XMS_ITS | Encounter Summary ---
Author Organization [facility] Address [address] [place] [address] Phone Care Team Providers Care Clay Digger Name Role Phone Ni Armas RN Unavailable Lizette Timothy Land MD Primary Care Provider [phone] [phone] Encounter Details Date Type Department Care Team (Late st Contact Info) Description 04/24/2023 Telephone [facility] Pulmonary [address] [facility] Advanced Medicine 8th [place] [address] [place] [address] Mindy Campos, BILLY Social History Tobacco Use Types Packs/Day Years Used Date Smoking Tobacco: Never Smokeless Tobacco: Never Alcohol Use Standard Drinks/Week Comments Not Currently 0 (1 standard drink = 0.6 oz pur e alcohol) Comments Unknown Sex and Gender Information Value Date Recorded Sex Assigned at Not on file Legal Sex Female 1:14 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 Returned daughter (Mae) telephone call. Daughter reports pt has been decreasing oxygen to 2L at night when pt gets up for restroom. PT (physical therapy) started having pt do therapy on 2L instead of 4L. Pt's daughter reports she has seen O2 sat down to 88% during PT. Mae states, pt says she feels fine . Mae states she wanted Dr. Correa to be aware of the above before scheduled appointment on Saturday. Informed daughter pt is scheduled of pft's including O2A which will document how much oxygen pt will need during activity. Daughter verbalized understanding. Dr. Correa updated on the above. Nolan Franks, Mindy Fonseca, BILLY Pt has an upcoming appt and her daughter (Mae) would like to speak with you regarding some concerns she would like Dr. Correa to address at appt. Mae can be reached at: [phone]. Thanks documented in this encounter Plan of Treatment Not on file documented as of this encounter Visit Diagnoses Not on filedocumented in this encounter Care Teams Clay Digger Relationship Specialty Start Date End Date Timothy Donis MD PCP - General Family Practice 04/12/23 Ni Armas, BILLY Registered Nurse Pulmonary Disease 01/11/23 documented as of this encounter
--- OUTSIDE RECORDS SUMMARY | 2024-11-15 05:54 | XMS_ITS | Encounter Summary ---
Author Organization [facility] Healthcare Address [address] [place] [address] Care Team Providers Care Cloth Examiner Machine Name Role Phone Ni Armas RN [facility] Timothy Land MD Primary Care Provider [phone] Reason for Visit * Diagnostic Imaging (Routine) - Closed Specialty Diagnoses / Procedures Referred By Contac t Referred To Contact Diagnoses Left hip pain Procedures XR Hip Left 2 or 3 Views XR Hip Left 4 or More Views Sandra Bauman MD [address] [place] [address] Phone: tel: fax: [address] [address] Referral ID Status Reason Start Date Expiration Date Visits Re quested Visits Authorized [id number] Closed 10/01/2023 10/30/2024 1 1 Encounter Details Date Type Department Care Team (Latest Contact Info) Description 10/09/2023 1:17 PM ORNAMENTAL IRON WORKER APPRENTICE - 10/09/2023 11:59 PM ORNAMENTAL IRON WORKER APPRENTICE Hospital Encounter [facility] [address] [place] [id number] Discharge Disposition: Discharge to home or self care Social History Tobacco Use Types Packs/Day Years Used Date Smoking Tobacco: Never Smokeless Tobacco: Never Alcohol Use Standard Drinks/Week Comments Not Currently 0 (1 standard drink = 0.6 oz pur e alcohol) Comments Unknown Sex and Gender Information Value Date Recorded Sex Assigned at Not on file Legal Sex Female 1:14 AM ORNAMENTAL IRON WORKER APPRENTICE Gender Identity Female 05/04/2020 3:33 PM CDT Sexual Orientation Not on file 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 Not [...] a day 180 tablet 2 08/20/2023 4 HYDROcodone-acet aminophen (NORCO) 5-325 mg per tablet Take by mouth every 6 (six) hours as needed for pain 10/03/2023 4 hydroxychloroqui ne (PLAQUENIL) 200 mg tablet [...] Read Routine (OP Routine) 10/09/2023 1:45 PM ORNAMENTAL IRON WORKER APPRENTICE Left hip pain documented in this encounter Results * XR Hip Left 2 or 3 Views (10/09/2023 1:45 PM ORNAMENTAL IRON WORKER APPRENTICE) Anatomical Region Laterality Modality Lower Extremities, Hip, Pelvis Left C omputed Radiography 10/10/2023 9:01 AM ORNAMENTAL IRON WORKER APPRENTICE Narrative 10/10/2023 9:02 AM ORNAMENTAL IRON WORKER APPRENTICE EXAM DESCRIPTION: XR HIP LEFT 2 OR 3 VIEWS REASON FOR STUDY: left hip pain, Pain. R/o inflammatory arthritis ?? Left hip pain >2 years worse over last 2-3 months. ? TECHNIQUE: 2 ??radiographic view(s) of the ??left hip . COMPARISON: None FINDINGS: There is severe left hip osteoarthritis with loeh-bd-kpxg contact, subchondral sclerosis and osteophyte formation. ??No fracture is seen. ?? Radiodense object projects over the right pelvis, uncertain whether internal or external to the patient. IMPRESSION: Severe left hip osteoarthritis. THIS IS AN ELECTRONICALLY VERIFIED FINAL REPORT 10/10/2023 9:02 AM - Electronically signed by ??Norberto Zimmerman M.D. JR: D: ??10/10/2023 9:02 AM T: ??10/10/2023 9:02 AM Report ID: [id number] Reading Location: ??[id number] Procedure Note Norberto Zimmerman MD - 10/10/2023 EXAM DESCRIPTION: XR HIP LEFT 2 OR 3 VIEWS REASON FOR STUDY: left hip pain, Pain. R/o inflammatory arthritis Left hip pain >2 years worse over last 2-3 months. TECHNIQUE: 2 radiographic view(s) of the left hip . COMPARISON: None FINDINGS: There is severe left hip osteoarthritis with tbgx-mw-bvaehslwqws, subchondral sclerosis and osteophyte formation. No fracture is seen. Radiodense object projects over the right pelvis, uncertain whetherinternal or external to the patient. IMPRESSION: Severe left hip osteoarthritis. THIS IS AN ELECTRONICALLY VERIFIED FINAL REPORT 10/10/2023 9:02 AM - Electronically signed by Norberto Zimmerman M.D., JR: Report ID: [id number] Reading Location: [id number] Sandra Bauman MD IMG XR PROCEDURES Final Result documented in this encounter Visit Diagnoses Not on filedocumented in this encounter Care Teams Cloth Examiner Machine Relationship Specialty Start Date End Date Timothy Donis MD PCP - General Family Practice 04/12/23 Ni Armas, RN Registered Nurse Pulmonary Disease 01/11/23 documented as of this encounter
--- OUTSIDE RECORDS SUMMARY | 2024-11-15 05:54 | XMS_ITS | Encounter Summary ---
Author Organization [facility] Address [address] [facility] [address] [place] [address] Phone Care Team Providers Care Welder Boilermaker Name Role Phone Ni Armas RN Unavailable Lizette Timothy Land MD Primary Care Provider [phone] [phone] Reason for Referral * Procedure (Routine) - Closed Specialty Diagnoses / Procedures Referred By Contac t Referred To Contact Diagnoses Rheumatoid lung disease (CMS/HCC) (HCC) Procedures Pulmonary Function Test -[facility] Adult PFT Lab- CAM-8D; Spirometry, Oxygen Assessment Titration Denita Correa MD [address] [address] Phone: tel: fax: Referral ID Status Reason Start Date Expiration Date Visits Re quested Visits Authorized [id number] Closed 03/08/2023 04/06/2024 1 1 Reason for Visit * Procedure (Routine) - Closed Specialty Diagnoses / Procedures Referred By Contac t Referred To Contact Diagnoses Rheumatoid lung disease (CMS/HCC) (HCC) Procedures Pulmonary Function Test -[facility]FT [facility]- CAM-8D; Spirometry, Oxygen Assessment Titration Denita Correa MD [address] [place] [address] Phone: tel: fax: Referral ID Status Reason Start Date Expiration Date Visits Re quested Visits Authorized [id number] Closed 03/08/2023 04/06/2024 1 1 Encounter Details Date Type Department Care Team (Latest Contact Info) Description 04/26/2023 8:36 AM CDT - 04/26/2023 11:59 PM CDT Hospital Encounter [facility] Pulmonary [address] [facility] [address] [place] [address] Rheumatoid lung disease (CMS/HCC) (HCC) Discharge Disposition: Discharge to home or self care Social History Tobacco Use Types Packs/Day Years Used Date Smoking Tobacco: Never Smokeless Tobacco: Never Alcohol Use Standard Drinks/Week Comments Not Currently 0 (1 standard drink = 0.6 oz pur e alcohol) Comments Unknown Sex and Gender Information Value Date Recorded Sex Assigned at Not on file Legal Sex Female 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 Gender Identity Female 05/04/2020 3:33 PM CDT Sexual Orientation Not on file 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 Not [...] Diagnosis Comments PULMONARY FUNCTION TEST (PFT) Routine 04/26/2023 9:13 AM CDT Rheumatoid lung disease (CMS/HCC) (HCC) documented in this encounter Results * Pulmonary Function Test - (04/26/2023 9:13 AM CDT) FVC PRE 0.95 L [facility] FVC %PRE PRED 38 % [facility] FEV1 PRE 0.79 L [facility] FEV1 %PRE PRED 40 % [facility] FEV1/FVC PRE 82.9 % [facility] Anatomical Region Laterality Modality PFT 04/26/2023 8:43 AM CDT Narrative 04/29/2023 9:01 PM CDT Table formatting from the original result was not included. [facility] Division of Pulmonary & Critical Care Medicine [address] [place] [address]; [place] [address]; [place], [place] ??[address]; [phone] Pulmonary Function Laboratory Pulmonary Stress Test Simple/Oxygen Assessment Patient: Ayanna Cash Date: 04/26/2023 : 1950 Ht: 62 IN Wt: 228 LBS Time (min) Distance (ft)/ Ozuna O2 L/M SpO2 HR Kaitlin* BP FEV1 % Pred Rest: ??RA 94 58 1 115/60 0.79 40 % ? Walk/Bike: 1 ??RA 95 105 4 ? 2 ??RA 95 120 5 ? 3 ? 4 ? 5 ? 6 min 0 sec ? Recovery: 1 ??RA 92 93 3 114/65 0.77 39% 3 ??RA 94 87 2 ?*Kaitlin rate of perceived exertion (1-10 dyspnea scale) ??Victor M, CHEST 2003; 123:1408 Walk Test Summary: Six Minute Walk Distance: 50 ft Six-minute Walk Work [distance (m) x body wt (kg)]: 1573 kg.m (normal >60,000kg.m) Oxygen required to maintain SpO2 greater than 90% during six minutes of walkin L/M Comments: PATIENT STOPPED AFTER 2 MINUTES DUE TO SOB. Interpretation: Breathing room air, SpO2 is adequate at rest and during exercise sufficient to increase pulse from 58 to 120 b/min, SpO2 is stable. On this basis, SpO2 is adequate at rest breathing room air and while walking breathing room air. This level of exercise is associated with no significant change of FEV1. ?? Karthikeyan Nayak M.D. By signing this report, the attending pulmonary physician certifies that he/she has personally reviewed and interpreted the graphic and numerical data associated with this pulmonary function study and has reviewed and /or edited a preliminary draft report and agrees with the written final report. PFT performed at:->[facility] Adult PFT Lab- CAM-8D Procedure:->Spirometry Procedure:->Oxygen Assessment Titration us Denita Correa MD PFT ORDERABLES Final Result documented in this encounter Visit Diagnoses Diagnosis Rheumatoid lung disease (CMS/HCC) (HCC) Rheumatoid lung documented in this encounter Care Teams Welder Boilermaker Relationship Specialty Start Date End Date Timothy Donis MD PCP - General Family Practice 04/12/23 Ni Armas, RN Registered Nurse Pulmonary Disease 01/11/23 documented as of this encounter
--- OUTSIDE RECORDS SUMMARY | 2024-11-15 05:55 | XMS_ITS | Encounter Summary ---
Author Organization [facility] Address [address] [facility] [address] [place] [address] Care Team Providers Care Head Turning Machine Operator Name Role Phone Ni Armas RN Unavailable Lizette Liliana Prakash MD Primary Care Provider [phone] Encounter Details Date Type Department Care Team (Late st Contact Info) Description 04/06/2023 Orders Only [facility] Cardiology [address] [facility] [address] [facility] [address] [place] [address] Romy Price MD [address] [facility] [address] [place] [address] Social History Tobacco Use Types Packs/Day Years Used Date Smoking Tobacco: Never Smokeless Tobacco: Never Alcohol Use Standard Drinks/Week Comments Not Currently 0 (1 standard drink = 0.6 oz pur e alcohol) Comments Unknown Sex and Gender Information Value Date Recorded Sex Assigned at Not on file Legal Sex Female 1:14 AM ROUTE SPECIALIST Gender Identity Female 05/04/2020 3:33 PM CDT Sexual Orientation Not on file 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 Not on file documented as of this encounter Plan of Treatment Not on file documented as of this encounter Procedures Procedure Name Priority Date/Time Associated Diagnosis Comments CARDIOLOGY DOCUMENT SCAN Routine 04/06/2023 documented in this encounter Results * Cardiology Document Scan (04/06/2023) Anatomical Region Laterality Modality Other Romy Price MD CV CARDIAC SERVICES PROCEDU RES Final Result documented in this encounter Visit Diagnoses Not on filedocumented in this encounter Care Teams Head Turning Machine Operator Relationship Specialty Start Date End Date Liliana Baron MD PCP - General Internal Medicine 01/14/23 04/11/23 Ni Armas, RN Registered Nurse Pulmonary Disease 01/11/23 documented as of this encounter
--- OUTSIDE RECORDS SUMMARY | 2024-11-15 05:55 | XMS_ITS | Encounter Summary ---
Author Organization [facility] Address [address] [place] [address] Phone Care Team Providers Care Customer Service Advocate Name Role Phone Ni Armas RN Unavailable Lizette Liliana Prakash MD Primary Care Provider [phone] Reason for Visit * Reason Onset Date Comments Multidisciplinary Discussion 04/05/2023 Encounter Details Date Type Department Care Team (Latest Contact Info) Description 04/05/2023 Documentation [facility] Pulmonary [address] [facility] Advanced Medicine 8th [place] [address] [place] [address] Denita Correa MD [address] [facility] [address] [place] [address] Multidisciplinary Discussion Social History Tobacco Use Types Packs/Day Years Used Date Smoking Tobacco: Never Smokeless Tobacco: Never Alcohol Use Standard Drinks/Week Comments Not Currently 0 (1 standard drink = 0.6 oz pur e alcohol) Comments Unknown Sex and Gender Information Value Date Recorded Sex Assigned at Not on file Legal Sex Female 1:14 AM LATHER APPRENTICE Gender Identity Female 05/04/2020 3:33 PM CDT Sexual Orientation Not on file 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
--- OUTSIDE RECORDS SUMMARY | 2024-11-15 05:55 | XMS_ITS | Encounter Summary ---
Author Organization [facility] Address [address] [place] [address] Phone Care Team Providers Care Chemical Process Project Engineer Name Role Phone Ni Armas RN Unavailable Lizette Liliana Prakash MD Primary Care Provider [phone] [phone] Encounter Details Date Type Department Care Team (Late st Contact Info) Description 03/15/20[address] [facility] Pulmonary [address] 8th [place] [address] [place] [address] Ni Armas, BILLY Social History Tobacco Use Types Packs/Day Years Used Date Smoking Tobacco: Never Smokeless Tobacco: Never Alcohol Use Standard Drinks/Week Comments Not Currently 0 (1 standard drink = 0.6 oz pur e alcohol) Comments Unknown Sex and Gender Information Value Date Recorded Sex Assigned at Not on file Legal Sex Female 1:14 AM CNA PCT Gender Identity Female 05/04/2020 3:33 PM CDT Sexual Orientation Not on file 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 She states her mother was hospitalized on and just got discharged. They upped her metoprolol and gave her lasix IV. She states she had a chest xray done that showed fluid on the lungs. Pt only took 5 days worth of amoxacillin because she did not receive it in the hospital. Pts daughter will be getting us the records via portal messaging. Information forwarded to Dr. Correa. ----- Message from Ni Armas RN sent at 03/14/2023 3:47 PM CDT ----- Needs to give update on mother [phone] documented in this encounter Plan of Treatment Not on file documented as of this encounter Visit Diagnoses Not on filedocumented in this encounter Care Teams Chemical Process Project Engineer Relationship Specialty Start Date End Date Liliana Baron MD PCP - General Internal Medicine 01/14/23 04/11/23 Ni Armas, BILLY Registered Nurse Pulmonary Disease 01/11/23 documented as of this encounter
--- OUTSIDE RECORDS SUMMARY | 2024-11-15 05:55 | XMS_ITS | Encounter Summary ---
Author Organization [facility] Address [address] [place] [address] Phone Care Team Providers Care Canvas Worker Name Role Phone Ni Armas RN Unavailable Lizette Liliana Prakash MD Primary Care Provider [phone] [phone] Encounter Details Date Type Department Care Team (Late st Contact Info) Description 04/08/2023 Telephone [facility] Pulmonary [address] 8th [place] [address] [place] [address] Ni Armas, BILLY Social History Tobacco Use Types Packs/Day Years Used Date Smoking Tobacco: Never Smokeless Tobacco: Never Alcohol Use Standard Drinks/Week Comments Not Currently 0 (1 standard drink = 0.6 oz pur e alcohol) Comments Unknown Sex and Gender Information Value Date Recorded Sex Assigned at Not on file Legal Sex Female 1:14 AM 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 Magaly Saucedo Jessica Therese, BILLY Pt rescheduled for 6/ Pft@9:00 Clinic@9:45 Spoke with pt ryanne Called and spoke with pts daughter. Donas states she is out of town that week and pts mother has been readmitted to [facility] d/t high HR and edema. Offered April 26 appt. Mae states they should be able to make appt if pt is out of hospital at that time. Messaged [facility] Please move pts 07/25 PFT and clinic appt to 04/26 @ 0960 in [place]. Pt will need PFT prior to appt. Please notify pts daughter (Mae) or times. Thank you Ni ----- Message from Denita Correa MD sent at 04/04/2023 6:37 AM CDT ----- Thanks. You can offer to overbook on 04/19 around 10:15 am. documented in this encounter Plan of Treatment Not on file documented as of this encounter Visit Diagnoses Not on filedocumented in this encounter Care Teams Canvas Worker Relationship Specialty Start Date End Date Liliana Baron MD PCP - General Internal Medicine 01/14/23 04/11/23 Ni Armas, RN Registered Nurse Pulmonary Disease 01/11/23 documented as of this encounter
--- OUTSIDE RECORDS SUMMARY | 2024-11-15 05:55 | XMS_ITS | Encounter Summary ---
Author Organization [facility] Address [address] [place] [address] Care Team Providers Care Nurse Aide Evaluator Name Role Phone Ni Armas RN Unavailable Lizette Liliana Prakash MD Primary Care Provider [phone] [phone] Encounter Details Date Type Department Care Team (Late st Contact Info) Description 03/27/2023 Orders Only [facility] Cardiology [address] [place] [address] Myles Reyes MD [address] [place] [address] Social History Tobacco Use Types Packs/Day Years Used Date Smoking Tobacco: Never Smokeless Tobacco: Never Alcohol Use Standard Drinks/Week Comments Not Currently 0 (1 standard drink = 0.6 oz pur e alcohol) Comments Unknown Sex and Gender Information Value Date Recorded Sex Assigned at Not on file Legal Sex Female 1:14 AM CIRCULAR KNIFE CUTTER MACHINE Gender Identity Female 05/04/2020 3:33 PM CDT Sexual Orientation Not on file 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 file Not on file Not on file documented as of this encounter Plan of Treatment Not on file documented as of this encounter Procedures Procedure Name Priority Date/Time Associated Diagnosis Comments CARDIOLOGY DOCUMENT SCAN Routine 03/27/2023 documented in this encounter Results * Cardiology Document Scan (03/27/2023) Anatomical Region Laterality Modality Other Myles Reyes MD CV CARDIAC SERVICES PROC EDURES Final Result documented in this encounter Visit Diagnoses Not on filedocumented in this encounter Care Teams Nurse Aide Evaluator Relationship Specialty Start Date End Date Liliana Baron MD PCP - General Internal Medicine 01/14/23 04/11/23 Ni Armas, RN Registered Nurse Pulmonary Disease 01/11/23 documented as of this encounter
--- OUTSIDE RECORDS SUMMARY | 2024-11-15 05:55 | XMS_ITS | Encounter Summary ---
Author Organization [facility] Address [address] [place] [address] Care Team Providers Care Motor Express Clerk Name Role Phone Ni Armas RN Unavailable Lizette Liliana Prakash MD Primary Care Provider [phone] Timothy Donis MD Primary Care Provider [phone] [phone] Encounter Details Date Type Department Care Team (Late st Contact Info) Description 03/12/2023 Orders Only [facility] [address] [place] [address] Scanning, Provider Social History Tobacco Use Types Packs/Day Years Used Date Smoking Tobacco: Never Smokeless Tobacco: Never Alcohol Use Standard Drinks/Week Comments Not Currently 0 (1 standard drink = 0.6 oz pur e alcohol) Comments Unknown Sex and Gender Information Value Date Recorded Sex Assigned at Not on file Legal Sex Female 1:14 AM RECRUITING INTERNSHIP Gender Identity Female 05/04/2020 3:33 PM CDT Sexual Orientation Not on file 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 Not on file Not on file documented as of this encounter Plan of Treatment Not on file documented as of this encounter Procedures Procedure Name Priority Date/Time Associated Diagnosis Comments CARDIOLOGY DOCUMENT SCAN 03/12/2023 documented in this encounter Results * CARDIOLOGY DOCUMENT SCAN (03/12/2023) Anatomical Region Laterality Modality Other us Provider Scanning CV CARDIAC SERVICES PROCEDURES Final Result documented in this encounter Visit Diagnoses Not on filedocumented in this encounter Care Teams Motor Express Clerk Relationship Specialty Start Date End Date Liliana Baron MD PCP - General Internal Medicine 01/14/23 04/11/23 Timothy Donis MD PCP - General Family Practice 04/12/23 Ni Armas, BILLY Registered Nurse Pulmonary Disease 01/11/23 documented as of this encounter
--- OUTSIDE RECORDS SUMMARY | 2024-11-15 05:55 | XMS_ITS | Encounter Summary ---
Author Organization [facility] Address [address] [place] [address] Phone Care Team Providers Care Coverage Specialist Name Role Phone Ni Armas RN Unavailable Lizette Liliana Prakash MD Primary Care Provider [phone] Timothy oDnis MD Primary Care Provider [phone] Encounter Details Date Type Department Care Team (Latest Contact Info) Description 03/22/2023 Orders Only [facility] Scanning, Provider Social History Tobacco Use Types Packs/Day Years Used Date Smoking Tobacco: Never Smokeless Tobacco: Never Alcohol Use Standard Drinks/Week Comments Not Currently 0 (1 standard drink = 0.6 oz pur e alcohol) Comments Unknown Sex and Gender Information Value Date Recorded Sex Assigned at Not on file 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 Gender Identity Female 05/04/2020 3:33 PM CDT Sexual Orientation Not on file 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 Not on file Not on file documented as of this encounter Plan of Treatment Not on file documented as of this encounter Procedures Procedure Name Priority Date/Time Associated Diagnosis Comments SCAN - RADIOLOGY/IMAGING 03/22/2023 documented in this encounter Results * SCAN - RADIOLOGY/IMAGING (03/22/2023) Anatomical Region Laterality Modality Other us Provider Scanning Final Result documented in this encounter Visit Diagnoses Not on filedocumented in this encounter Care Teams Coverage Specialist Relationship Specialty Start Date End Date Liliana Baorn MD PCP - General Internal Medicine 01/14/23 04/11/23 Timothy Doins MD PCP - General Family Practice 04/12/23 Ni Armas, RN Registered Nurse Pulmonary Disease 01/11/23 documented as of this encounter
--- OUTSIDE RECORDS SUMMARY | 2024-11-15 05:55 | XMS_ITS | Encounter Summary ---
Author Organization [facility] Address [address] [place] [address] Phone Care Team Providers Care Glass Blowing Lathe Operator Name Role Phone Ni Armas RN Unavailable Lizette Liliana Prakash MD Primary Care Provider [phone] Encounter Details Date Type Department Care Team (Late st Contact Info) Description 04/11/2023 Telephone [facility] Pulmonary [address] 8[address] [place] [address] [place] [address] Ni Armas, BILLY Social History Tobacco Use Types Packs/Day Years Used Date Smoking Tobacco: Never Smokeless Tobacco: Never Alcohol Use Standard Drinks/Week Comments Not Currently 0 (1 standard drink = 0.6 oz pur e alcohol) Comments Unknown Sex and Gender Information Value Date Recorded Sex Assigned at Not on file Legal Sex Female 1:14 AM DIVINE HEALER Gender Identity Female 05/04/2020 3:33 PM CDT Sexual Orientation Not on file 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 She states her mother is now only requiring 2-4 LPM of O2. She aslo states she has been discharged back to the rehab facility. She has an appt with cardiology, nephrology and gastroenterology in the next upcoming week. ----- Message from KISHA Haddad sent at 04/10/2023 2:33 PM CDT ----- Pt daughter (Mae) wants to speak with you regarding patient oxygen level being dropped at 2L at rest. Mae can be reached at: [phone]. Thanks documented in this encounter Plan of Treatment Not on file documented as of this encounter Visit Diagnoses Not on filedocumented in this encounter Care Teams Glass Blowing Lathe Operator Relationship Specialty Start Date End Date Liliana Baron MD PCP - General Internal Medicine 01/14/23 04/11/23 Ni Armas, BILLY Registered Nurse Pulmonary Disease 01/11/23 documented as of this encounter
--- OUTSIDE RECORDS SUMMARY | 2024-11-15 05:55 | XMS_ITS | Encounter Summary ---
Author Organization [facility] Address [address] [place] [address] Phone Care Team Providers Care Pulpwood Cutter Name Role Phone Ni Armas RN Unavailable Lizette Liliana Prakash MD Primary Care Provider [phone] Encounter Details Date Type Department Care Team (Late st Contact Info) Description 03/11/2023 Telephone [facility] Pulmonary [address] 8th [place] [address] [place] [address] Ni Armas RN Social History Tobacco Use Types Packs/Day Years Used Date Smoking Tobacco: Never Smokeless Tobacco: Never Alcohol Use Standard Drinks/Week Comments Not Currently 0 (1 standard drink = 0.6 oz pur e alcohol) Comments Unknown Sex and Gender Information Value Date Recorded Sex Assigned at Not on file Legal Sex Female 1:14 AM MOTOR VEHICLE EMISSIONS INSPECTOR Gender Identity Female 05/04/2020 3:33 PM CDT Sexual Orientation Not on file 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 Daughter staes that her mother's cough is not any bettter She feels more weak. Since she has been off of her Orencia (d/t abx), she is starting to feel it in her joints more.She states that her mother's HR is maintaining in the 140s . I told her if that is the case and it is continually staying that high, then she needs to get further evaluated in the ED. Information forwarded to Dr. Correa. ----- Message ----- From: Nolan Franks Roseanna Sent: 03/11/2023 9:17 AM CDT To: Ni Armas RN Pt daughter Mae stated that patient was seen on Saturday and was giving a medication. She states that patient is getting worst and would like to know what is an alternative option for care? Daughter can be reached at: [phone]. Thanks documented in this encounter Plan of Treatment Not on file documented as of this encounter Visit Diagnoses Not on filedocumented in this encounter Care Teams Pulpwood Cutter Relationship Specialty Start Date End Date Liliana Baron MD PCP - General Internal Medicine 01/14/23 04/11/23 Ni Armas, RN Registered Nurse Pulmonary Disease 01/11/23 documented as of this encounter
--- OUTSIDE RECORDS SUMMARY | 2024-11-15 05:55 | XMS_ITS | Encounter Summary ---
Author Organization [facility] Address [address] [place] [address] Care Team Providers Care Regulatory Affairs Analyst Name Role Phone Ni Armas RN Unavailable Lizette Liliana Prakash MD Primary Care Provider [phone] Timothy Donis MD Primary Care Provider [phone] [phone] Encounter Details Date Type Department Care Team (Late st Contact Info) Description 03/20/2023 Telephone [facility] Cardiology [address] [place] [address] Myles Reyes MD [address] 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 Asked daughter to be more specific, she states that it hasbeen as high as 130, but usually around 110. Pt is currently on metoprolol 150mg daily which was prescribed at discharge from . Per F consult note, pts HR was 90-110 upon discharge which he report ed was acceptable. Pts daughter also reports that pt is having SOB after walking back from the bathroom. Asked about any swelling, she states pt has been in bed and covered up and she does not know about any swelling. She reports that pt has not been wearing her CPAP because her 02 saturations dropin the 70's when she wears it. Pt already has f/u with CT scheduled for 03/22. Will keep that appt. A dvised daughter that if pt has increasing or worsening symptoms to go to the ER otherwise will follow up with CT on Saturday. * Telephone Encounter - Nasreen Nunez - 03/20/2023 12:11 PM CDT Pt daughter call in states that she was just released from [facility] and her heart rate is still high. She states that they changed her metoprolol dose but it hasn't changed her condition. While sitting her heart rate is in the 100's. Requesting call back to discuss. Contact [phone] documented in this encounter Plan of Treatment Not on file documented as of this encounter Visit Diagnoses Not on filedocumented in this encounter Care Teams Regulatory Affairs Analyst Relationship Specialty Start Date End Date Liliana Baron MD PCP - General Internal Medicine 01/14/23 04/11/23 Timothy Donis MD PCP - General Family Practice 04/12/23 Ni Armas, BILLY Registered Nurse Pulmonary Disease 01/11/23 documented as of this encounter
--- OUTSIDE RECORDS SUMMARY | 2024-11-15 05:55 | XMS_ITS | Encounter Summary ---
Author Organization [facility] Address [address] [place] [address] Care Team Providers Care Optical Lab Technician Name Role Phone Ni Armas RN Unavailable Lizette Liliana Prakash MD Primary Care Provider [phone] Encounter Details Date Type Department Care Team (Late st Contact Info) Description 03/13/2023 Orders Only [facility] Cardiology [address] [place] [address] Ninfa Khan MD [address] [address] Social History Tobacco Use Types Packs/Day Years Used Date Smoking Tobacco: Never Smokeless Tobacco: Never Alcohol Use Standard Drinks/Week Comments Not Currently 0 (1 standard drink = 0.6 oz pur e alcohol) Comments Unknown Sex and Gender Information Value Date Recorded Sex Assigned at Not on file Legal Sex Female 1:14 AM LOCOMOTIVE OPERATOR HELPER Gender Identity Female 05/04/2020 3:33 PM CDT Sexual Orientation Not on file 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 on file Not on file documented as of this encounter Plan of Treatment Not on file documented as of this encounter Procedures Procedure Name Priority Date/Time Associated Diagnosis Comments CARDIOLOGY DOCUMENT SCAN Routine 03/13/2023 documented in this encounter Results * Cardiology Document Scan (03/13/2023) Anatomical Region Laterality Modality Other Marietta Pantoja NP CV CARDIAC SERVICES PROCEDUR ES Final Result documented in this encounter Visit Diagnoses Not on filedocumented in this encounter Care Teams Optical Lab Technician Relationship Specialty Start Date End Date Liliana Baron MD PCP - General Internal Medicine 01/14/23 04/11/23 Ni Armas, RN Registered Nurse Pulmonary Disease 01/11/23 documented as of this encounter
--- OUTSIDE RECORDS SUMMARY | 2024-11-15 05:55 | XMS_ITS | Encounter Summary ---
Author Organization [facility] Address [address] [place] [address] Care Team Providers Care Transcribing Machine Operator Name Role Phone Ni Armas RN Unavailable Lizette Timothy Land MD Primary Care Provider [phone] Reason for Visit * Reason Comments Hospital Follow Up Discharged from [facility] on 04/11/23 Dx: SOB, acuton chronic disatolic CHF Encounter Details Date Type Department Care Team (Latest Contact Info) Description 04/12/2023 8:15 AM CDT Office Visit [facility] Cardiology [address] [place] [address] Myles Reyes MD [address] [address] Dilated cardiomyopathy (CMS/HCC) (HCC) (Primary Dx); HFrEF (heart failure with reduced ejection fraction) (CMS/HCC) (HCC); Stage 3 chronic kidney disease, unspecified whether stage 3a or 3b CKD (HCC) Social History Tobacco Use Types Packs/Day Years Used Date Smoking Tobacco: Never Smokeless Tobacco: Never Alcohol Use Standard Drinks/Week Comments Not Currently 0 (1 standard drink = 0.6 oz pur e alcohol) Comments Unknown Sex and Gender Information Value Date Recorded Sex Assigned at Not on file Legal Sex Female 1:14 AM INFORMATION RESOURCES MANAGER Gender Identity Female 05/04/2020 3:33 PM CDT Sexual Orientation Not on file 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 Not on file Not on file Not on file documented as of this encounter Last Filed Vital Signs Vital Sign Reading Time Taken Comments Blood Pressure 122/70 04/12/2023 8:26 AM CDT Pulse 83 04/12/2023 8:26 AM CDT Temperature - - Respiratory Rate - - Oxygen Saturation 98% 04/12/2023 8:26 AM CDT with O2 Inhaled Oxygen Concentration - - Weight 104.3 kg (230 lb) 04/12/2023 8:26 AM CDT Height 157.5 cm (5' 2 ) 04/12/2023 8:26 AM CDT Body Mass Index 42.07 04/12/2023 8:26 AM CDT documented in this encounter Ordered Prescriptions Prescription Sig Dispense Quantity Refills Last Filled Start Date End Date sacubitriL-valsart an (ENTRESTO) 24-26 mg tabletIndications: chronic heart failure Take 1 tablet by mouth 2 (two) times a day 60 tablet 11 04/12/2023 01/17/2024 documented in this encounter Progress Notes * Myles Reyes MD - 04/12/2023 8:15 AM CDT [facility] DATE OF VISIT: 04/12/2023 CHIEF COMPLAINT Chief Complaint Patient presents with Hospital Follow Up Discharged from [facility] on 04/11/23 Dx: deborah KURTZ chronic disatolic CHF ASSESSMENT Diagnoses and all orders for this visit: Dilated cardiomyopathy (CMS/HCC) (HCC) (Primary) - Basic metabolic panel; Future HFrEF (heart failure with reduced ejection fraction) (CMS/HCC) (HCC) Stage 3 chronic kidney disease, unspecified whether stage 3a or 3b CKD (HCC) Other orders - sacubitriL-valsartan (ENTRESTO) 24-26 mg [...] basis. -continue Toprol XL 150 mg daily, diltiazem 300 mg daily. Discussed recommendation to avoid diltiazem given heart failure, however, options limited given her history. We discussed referral to electrophysiology. Amiodarone is not an option given advancing underlying interstitial lung disease and chronic hypoxic respiratory failure. Sotalol suboptimal given underlying renal insufficiency but consideration nonetheless. Suspected difficulty controlling AFib complicated by worsening underlying lung disease, CHF and now new LV dysfunction. -discussed recommendation for referral to electrophysiology Dr. Morris for further evaluation recommendations in this regard. We will attempt to stabilize further with medical therapy changes as discussed. 2. BP controlled goal <140/90mmHg. Monitor BP on routine basis. Call with readings. Continue consistent cardiovascular exercise, weight loss, medication compliance, and low-sodium diet. -Toprol XL 150 mg daily. Add Entresto. Counseled on side effects, risks and benefits. [...] 24 hrs or worsening edema and/or FALCON. -Continue Lasix 60mg daily and KCl 20MEQ daily. -She had been compliant with sodium and diet restrictions as previously counseled but is at [facility] and not able to reliably follow low-sodium diet . Stressed the importance of consistent compliance with recommendations as her edema is multifactorial but exacerbated by lack of activity, sedentary lifestyle, excess sodium intake, STARR, obesity. -echo 04/05/2023 at [facility] EF 25-30% during AFib with RVR [id number] MR moderate pulmonary hypertension RVSP 50 mm Hg. -at length we discussed management. Given frequent recurrent admissions add Entresto 24/26 mg twicedaily. BMP in 1 week. Advised consideration for SGLT2 inhibitor therapy as tolerated and Spironolactone if possible. Need to monitor renal function closely as she may not be able to tolerate. -furthermore, would prefer to avoid diltiazem given LV dysfunction, however, AFib has been more difficult to control requiring high-dose beta-marni and now they addition of Diltiazem. -discussed further workup for cardiomyopathy including possible coronary angiography for delineation of coronary anatomy although she is not endorsing anginal symptoms in this regard. Less likely butpossible second-degree AFib with RVR or tachycardia induced cardiomyopathy. -consider Holter monitor next visit in 2 weeks to document heart rate control although was quite adequate in the office today. -extensive discussion held with the patient and her daughter. All questions answered to their satisfaction. -I suspect her increasing decompensation is multifactorial in addition to progressing underlying interstitial lung disease, greater difficulty controlling her atrial tachyarrhythmia, as well as newlydiagnosed LV systolic dysfunction LVH the etiology is not entirely clear at this time and is a new finding. 4. Compliance with medications, recommendations follow-up once again extensively reviewed with patient and her daughter. 5. Follow-up with pulmonology and Rheumatology as scheduled. Compliance with CPAP. She will continue on hydroxychloroquine, methotrexate and prednisone as directed 6. Lipids personally reviewed 12/27/22 LDL 42, well controlled goal LDL< 100. Continue statin therapy and lifestyle modification. Pravastatin 80mg qhs. 7. Lifestyle modification counseling performed. Weight loss, exercise, reduction in caloric intake. My total encounter time on 04/12/2023 was 53 minutes which was spent in the activities documented inthe note. This includes time spent prior to the visit and after the visit in direct care of the patient. This time does not include time spent in any separately reportable services. Over 50% of this visit counseling CHF, HTN, lipids, medications, lifestyle modification. Follow up in the office in 2 weeks or sooner as needed. Thank you for allowing me the privilege of participating in the care this very pleasant patient. Please do not hesitate to contact me with any additional questions or concerns. NIRANJAN Cash is a 72 y.o. female with a PMHx of rheumatoid arthritis, hypertension, hyperlipidemia, morbid obesity, STARR, diastolic heart failure, atrial fibrillation, and interstitial lung disease. She was on amiodarone and digoxin in the past , she had also had a successful cardioversion in the past. [place] in September 2019 showed EF 60%. She was previously followed by Dr. Parker. Her data collection interviewer is Dr. Norman. Her level designer is Dr. Kobe Gerard. She presented to [facility] on 01/01/2020 with complaint of worsening shortness [...] CPAP machine nightly, but sometimes remove sit fpc through the night. PCP follows her INRs [...] trying to lose some weight, following a [id number] Na restriction. Now using a foot pedal [...] 09/29/21 CAT visit-On 09/21/21 she went to [facility] ER for complaint of worsening shortnessof breath. [...] referred her to pulmonology at [facility] and that appointment is next month. 12-lead ECG performed in the office today was independently interpreted by me and showed sinus rhythm, normal axis and normal intervals, rate 88 beats per minute 11/02/21 Says not feeling any better at all after admission to [facility] with influenza B hurts to doeverything takes a lot out of her, no energy or appetite, SOB same as before. Attributes a lot to being off her pain meds including Hydroxychloroquine and Methotrexate for a while while in hospital. On CPAP. Not much edema though. Pain is mostly in shoulders and hands. Uses heating pad and Tylenol.Saw PCP recently. Sees Pulm at [facility] tomorrow. Using 2L O2 at rest 4L O2 with activity. She notes her O2 drops to 85% on 4L still. Rheum adjusting meds on prednisone for 1 week without noted improvement thus far. Has PT coming into home. 04/17/22 Admitted to [facility] with ILD and CHF admits she hasn't [...] CAT visit - she was hospitalized at [facility] 05/25-05/26 for pulmonary edema, tested positive for COVID, treated for rib fractures due to a fall 2 days prior. Then hospitalized at [facility] 05/27-06/07for treatment of pneumonia (bacterial verses COVID) / COPD exacerbation, diastolic heart failure exacerbation. She became bradycardic on telemetry (heart rate 30-40 with pause up to 3 seconds) so remdesivir was stopped and metoprolol was stopped. IV furosemide caused MIKE so she was discharged without furosemide but it has since been restarted in correction rehab (currently she is at [facility] in [place]). When she is doing physical therapy her [...] and atrial flutter with RVR. Went to [facility] after February admission then back to [facility] in March after and she feels diet at [facility] is to fault and salty. Cough is incessant at [facility]. Has blood in stool reported Elisa recommended discharge yesterday on Dilt 300mg daily and Toprol XL 150mg Lasix 40mg BID Echo with EF 27% but in AF with RVR. Extensively reviewed [facility] records. Patient's daughter veryconcerned about her cough has been no different throughout hospitalizations of late. They admit that her interstitial lung disease is progressing. No improvement with antibiotics for diuresis or change in medications. MEDICAL HISTORY Past Medical History: Diagnosis Date Atrial fibrillation (CMS/HCC) ([facility]) Cataracts, bilateral CHF (congestive heart failure) (CMS/HCC) ([facility]) Depression 12/2021 Diastolic dysfunction Diverticulitis H/O section Heart disease Hypertension Obesity Sleep apnea Thyroid disease Wears dentures Social History Tobacco Use Smoking status: Never Smoker Smokeless tobacco: Never Used Substance Use Topics Alcohol use: Not Currently Alcohol/week: 0.0 standard drinks Drug use: Never Family History Problem Relation Age of Onset Hypertension Mother Blood Clot Father Clotting disorder Father Rheum arthritis Father No Known Problems Sister No Known Problems Sister MEDICATIONS HOME MEDICATIONS : acetaminophen 325 mg capsule alendronate (FOSAMAX) 70 [...] mg tablet hydroxychloroquine (PLAQUENIL) 200 mg tablet levalbuterol (XOPENEX) 1.25 mg/3 mL nebulizer solution levothyroxine (SYNTHROID) 112 mcg tablet metoprolol XL (TOPROL-XL) 25 mg extended release tablet pantoprazole DR (PROTONIX) 40 mg EC tablet potassium chloride ER (KLOR-CON) 20 mEq CR tablet pravastatin (PRAVACHOL) 80 mg tablet predniSONE (DELTASONE) 2.5 mg tablet abatacept (Orencia ClickJect) 125 mg/mL auto-injector furosemide (LASIX) 20 mg tablet predniSONE (DELTASONE) 10 mg tablet sacubitriL-valsartan (ENTRESTO) 24-26 mg tablet sulfamethoxazole-trimethoprim (Bactrim DS) 800-160 mg per tablet traMADoL (ULTRAM) 50 mg tablet ALLERGIES [...] heartbeat, near-syncope, orthopnea, palpitations and syncope. Respiratory: Positive for cough. Negative for hemoptysis, shortness of breath, snoring and wheezing. [...] and are negative. PHYSICAL EXAM Vitals BP 122/70 (BP Location: Right arm, Patient Position: Sitting) Pulse 83 Ht 157.5 cm (5' 2 ) Wt 104.3 kg (230 lb) SpO2 98% BMI 42.07 kg/m?? Weight: 104.3 kg (230 lb) Height: 157.5 cm (5' 2 ) Body [...] present. Left lower leg: Edema present. Comments: 1-2+ edema bilateral L>R In wheelchair Lymphadenopathy: Cervical: [...] or performed during the hospital encounter of 03/08/23 Aerobic culture and gram stain Sputum Lung Specimen: Lung; Sputum Result Value Ref Range Direct Specimen Exam Stain: Abundant squamous epithelial cells seen indicating excessive oropharyngeal contamination. Culture will not be processed further. Please submit another specimen. Smear results called to and read back by: Tabitha Swain MT [phone] on 03/08/2023 21:10:15 by: Radha Kenyon MT Report Final Report: This is the final report. 09/29/2021 2D echocardiogram: [facility] EF 55-60% mild LVH, mild LVE, trivial MR, normal pulmonary pressures 10/04/2021 48 hour Holter monitor: Interpretation Summary AMBULATORY TESTER ELECTRONIC SCALE REPORT Patient Name: Ayanna Cash Date of [...] Clinical correlation is recommended. 12/29/21 2D Echo ([facility]): EF 55-60% mild LVH moderate left atrial enlargement no MR unable to estimate PA systolic pressure. No . 07/11/22 Interpretation Summary AMBULATORY TESTER ELECTRONIC SCALE REPORT Patient Name: Ayanna Cash Date of [...] rate. Longest RR intervals appearedto have occurred button sewer hand overnight hours presumably while asleep. Sinus rhythm was not appreciated. Conclusions: Persistent atrial fibrillation with intermittent atrial flutter with variable AV block controlled average heart rate with frequent episodes of rapid ventricular response which majority of patient's symptoms were associated with tachycardia. Sinus rhythm was not appreciated No pathologic or prolonged pauses or high-grade AV blocks identified. Personally reviewed EKG, electronic medical record, [facility] hospital records, and bloodwork/lipids. Geetha Reyes MD, [facility] This note is dictated and transcribed using [employer] Direct Software. Retail Sales Vitamin Consultant variancesmay occur. Despite proofreading, typographical errors may occur. documented in this encounter Plan of Treatment Not on file documented as of this encounter Visit Diagnoses Diagnosis Dilated cardiomyopathy (CMS/HCC) (HCC)- Primary Other primary cardiomyopathies HFrEF (heart failure with reduced ejection fraction) (CMS/HCC) (HCC) Stage 3 chronic kidney disease, unspecified whether stage 3a or 3b CKD ([facility]) documented in this encounter Historical Medications * This list may reflect changes made after this encounter. levalbuterol (XOPENEX) 1.25 mg/3 mL nebulizer solution Take 3 mL (1.25 mg total) by nebulization every 6 (six) hours as needed for wheezing [address] (PROTONIX) 40 mg EC tablet Take 1 tablet (40 mg total) by mouth daily 3 dilTIAZem CD (CARDIZEM CD) 300 mg 24 hr capsule Take 1 capsule (300 mg total) by mouth daily 3 furosemide (LASIX) 40 mg tablet Take 1 tablet (40 mg total) by mouth 2 (two) times a day 3 added in this encounter Care Teams Transcribing Machine Operator Relationship Specialty Start Date End Date Timothy Donis MD PCP - General Family Practice 04/12/23 Ni Armas, RN Registered Nurse Pulmonary Disease 01/11/23 documented as of this encounter
--- OUTSIDE RECORDS SUMMARY | 2024-11-15 05:55 | XMS_ITS | Encounter Summary ---
Author Organization [facility] Address [address] [place] [address] Care Team Providers Care Competitive Intelligence Manager Name Role Phone Ni Armas RN Unavailable Lizette Liliana Prakash MD Primary Care Provider [phone] Encounter Details Date Type Department Care Team (Latest Contact Info) Description 03/29/2023 1:40 PM CDT - 03/29/2023 11:59 PM CDT Hospital Encounter [facility] [address] [place] [id number] Discharge Disposition: Discharge to home or self care Social History Tobacco Use Types Packs/Day Years Used Date Smoking Tobacco: Never Smokeless Tobacco: Never Alcohol Use Standard Drinks/Week Comments Not Currently 0 (1 standard drink = 0.6 oz pur e alcohol) Comments Unknown Sex and Gender Information Value Date Recorded Sex Assigned at Not on file Legal Sex Female 1:14 AM MANAGER ENERGY Gender Identity Female 05/04/2020 3:33 PM CDT [...] mouth daily cyanocobalamin (Vitamin B-12) 1,000 mcg tabletIndications: Prevention of Vitamin B12 Deficiency Take 1 tablet [...] cholestyramine (QUESTRAN) 4 gram packet 06/09/2020 3 furosemide (LASIX) 20 mg tablet Take 3 tablets (60 mg total) by mouth daily 270 tablet 3 10/29/2022 3 hydroxychloroquine (PLAQUENIL) 200 mg tablet Take 1 tablet (200 mg total) by mouth 2 (two) times a day 11/26/2019 4 metoprolol XL (TOPROL-XL) 25 mg extended release tabletIndications: Longstanding persistent atrial fibrillation (CMS/HCC) (HCC) Take 2 tablets (50 mg total) by mouth daily 60 tablet 11 07/04/2022 3 predniSONE (DELTASONE) 10 mg tablet Take 4 tabs (40 mg) po every day for 5 days, then 3 tabs (30 mg) po every day for 5 days, then 2 tabs (20 mg) po every day for 5 days, then 1 tab (10 mg) po every day for 5 days. 50 tablet 03/20/2023 3 predniSONE (DELTASONE) 2.5 mg tablet Take 1 tablet (2.5 mg) by mouth daily 30 tablet 2 12/03/2022 3 sulfamethoxazole-t rimethoprim (Bactrim DS) 800-160 mg per tablet Take one po on Mon, Wed, Fri 12 tablet 5 01/28/2023 3 documented as of this encounter Discharge Disposition Disposition Code Departure Means Destination Discharge to home or self care documented in this encounter Plan of Treatment Not on file documented as of this encounter Procedures Procedure Name Priority Date/Time Associated Diagnosis Comments XR TRANSFER OF OUTSIDE FILMS Routine 03/29/2023 1:40 PM CDT Diagnosis unknown documented in this encounter Results * XR Outside Reference (03/29/2023 1:40 PM CDT) Impressions [facility] - 03/29/2023 1:40 PM CDT These images are for Reference purposes only and have not been reviewed by [facility]. ??There will be no report generated by a [facility] Radiologist. Narrative [facility]_P[facility] - 03/29/2023 1:40 PM CDT EXAMINATION: ??Images For Reference Purposes Only us Denita Correa MD IMG XR PROCEDURES Final Resu lt [facility] documented in this encounter Visit Diagnoses Not on filedocumented in this encounter Care Teams Competitive Intelligence Manager Relationship Specialty Start Date End Date Liliana Baron MD PCP - General Internal Medicine 01/14/23 04/11/23 Ni Armas, RN Registered Nurse Pulmonary Disease 01/11/23 documented as of this encounter
--- OUTSIDE RECORDS SUMMARY | 2024-11-15 05:55 | XMS_ITS | Encounter Summary ---
Author Organization [facility] Address [address] [place] [address] Care Team Providers Care Assemblyman Or Woman Name Role Phone Ni Armas RN Unavailable Lizette Liliana Prakash MD Primary Care Provider [phone] Encounter Details Date Type Department Care Team (Late st Contact Info) Description 03/28/2023 Telephone [facility] Cardiology [address] [place] [address] Myles Reyes MD [address] [place] [id number] Social History Tobacco Use Types Packs/Day Years Used Date Smoking Tobacco: Never Smokeless Tobacco: Never Alcohol Use Standard Drinks/Week Comments Not Currently 0 (1 standard drink = 0.6 oz pur e alcohol) Comments Unknown Sex and Gender Information Value Date Recorded Sex Assigned at Not on file Legal Sex Female 1:14 AM 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 * Telephone Encounter - Yesenia Villafana RN - 03/28/2023 9:02 AM CDT Spoke with pts daughter. She is very concerned about her mother . She wanted to make sure AD is aware that she believes pts HR became elevated around the end of January when her cough started. She also wants to discuss at the next OV what stage of Heart failure the patient is in. Pt is scheduled to be seen in 2 weeks on April 12. I told the pt lela seemed appropriate but I would check with AD and if he felt the pt should be seen sooner, I would let her know. Please advise. * Telephone Encounter - Nasreen Nunez - 03/28/2023 8:21 AM CDT Pt daughter calling in states that she [facility] and was told to make a follow up appointment with AD. However she states that before she makes the appointment she wants to discuss her progress notes. Requesting call back to discuss. Contact [phone] documented in this encounter Plan of Treatment Not on file documented as of this encounter Visit Diagnoses Not on filedocumented in this encounter Care Teams Assemblyman Or Woman Relationship Specialty Start Date End Date Liliana Baron MD PCP - General Internal Medicine 01/14/23 04/11/23 Ni Armas, BILLY Registered Nurse Pulmonary Disease 01/11/23 documented as of this encounter
--- OUTSIDE RECORDS SUMMARY | 2024-11-15 05:55 | XMS_ITS | Encounter Summary ---
Author Organization [facility] Address [address] [facility] [address] [place] [address] Phone Care Team Providers Care Booking Agent Name Role Phone Ni Armas RN Unavailable Lizette Liliana Prakash MD Primary Care Provider [phone] [phone] Reason for Referral * Procedure (Routine) - Closed Specialty Diagnoses / Procedures Referred By Contac t Referred To Contact Diagnoses ILD (interstitial lung disease) (CMS/HCC) ([facility]) Procedures Pulmonary Function Test -[facility] Adult PFT Lab- CAM-8D; Oxygen Assessment Titration Denita Correa MD [address] [place] [address] Phone: tel: fax: Referral ID Status Reason Start Date Expiration Date Visits Re quested Visits Authorized [id number] Closed 03/01/2023 03/30/2024 1 1 Reason for Visit * Procedure (Routine) - Closed Specialty Diagnoses / Procedures Referred By Contac t Referred To Contact Diagnoses ILD (interstitial lung disease) (CMS/HCC) ([facility]) Procedures Pulmonary Function Test -[facility] Adult PFT Lab- CAM-8D; Oxygen Assessment Titration Denita Correa MD [address] [address] Phone: tel: fax: Referral ID Status Reason Start Date Expiration Date Visits Re quested Visits Authorized [id number] Closed 03/01/2023 03/30/2024 1 1 Encounter Details Date Type Department Care Team (Latest Contact Info) Description 03/08/2023 8:51 AM CDT - 03/08/2023 11:59 PM CDT Hospital Encounter [facility] Pulmonary [address] [facility] [address] [place] [address] ILD (interstitial lung disease) ([facility]/HCC) ([facility]) Discharge Disposition: Discharge to home or self care Social History Tobacco Use Types Packs/Day Years Used Date Smoking Tobacco: Never Smokeless Tobacco: Never Alcohol Use Standard Drinks/Week Comments Not Currently 0 (1 standard drink = 0.6 oz pur e alcohol) Comments Unknown Sex and Gender Information Value Date Recorded Sex Assigned at Not on file Legal Sex Female 1:14 AM SOCIAL MEDIA ASSISTANT Gender Identity Female 05/04/2020 3:33 PM CDT Sexual Orientation Not on file 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 Not on file [...] as needed for pain 21 tablet 07/03/2022 amoxicillin-clavul anate (AUGMENTIN) 875-125 mg per tablet Take 1 tablet by mouth 2 (two) times a day for 7 days 14 tablet 03/08/2023 3 abatacept (Orencia ClickJect) 125 mg/mL auto-injector 06/22/2022 [...] extended release tabletIndications: Longstanding persistent atrial fibrillation (CMS/[facility]) ([facility]) Take 2 tablets (50 mg total) by mouth daily 60 tablet 11 07/04/2022 3 predniSONE (DELTASONE) 2.5 mg tablet Take [...] Diagnosis Comments PULMONARY FUNCTION TEST (PFT) Routine 03/08/2023 9:15 AM CDT ILD (interstitial lung disease) (CMS/HCC) ([facility]) documented in this encounter Results * Pulmonary Function Test -[facility] PFT [facility]- CAM-8D; Oxygen Assessment Titration (03/08/2023 9:15AM CDT) Anatomical Region Laterality Modality PFT Narrative 03/12/2023 1:36 PM CDT Table formatting from the original result was not included. [facility] Division of Pulmonary & Critical Care Medicine [address] [place] [address]; [place] [address] [facility]; [place], [place] ??[address]; [phone] Pulmonary Function Laboratory Pulmonary Stress Test Simple/Oxygen Assessment Patient: Ayanna Cash Date: 03/08/2023 : 1950 Ht: 62 in Wt: 232 lbs Time (min) Distance (ft)/ Ozuna O2 L/M SpO2 HR Kaitlin* BP FEV1 % Pred Rest: ??RA 98 142 0 121/74 0.79 40 % ? Walk/Bike: 1 ??RA 96 141 4 ? 2 ??RA 93 143 4 ? 3 ? 4 ? 5 ? 6 min 0 sec ? Recovery: 1 ??RA 90 148 5 152/89 ?? 3 ??RA/2/4 85/87/90 142 3 ?*Kaitlin rate of perceived exertion (1-10 dyspnea scale) ??Victor M, CHEST 2003; 123:1408 Walk Test Summary: Six Minute Walk Distance: 150 ft Six-minute Walk Work [distance (m) x body wt (kg)]: 4802 kg.m (normal >60,000kg.m) Oxygen required to maintain SpO2 greater than 90% during six minutes of walkin L/M Comments: Patient stopped at 2 minutes due to shortness of breath. Interpretation: Breathing room air, SpO2 is normal at rest. During 2 minutes of exercise sufficient to increase pulse from 142 to 142b/min, SpO2 is falls but remains normoxemic. On this basis, SpO2 is adequate at rest breathing room air and while walking breathing room air. Dieter Ramírez M.D. By signing this report, the attending pulmonary physician certifies that he/she has personally reviewed and interpreted the graphic and numerical data associated with this pulmonary function study and has reviewed and /or edited a preliminary draft report and agrees with the written final report. us Denita D. Sunny MD PFT ORDERABLES Final Result documented in this encounter Visit Diagnoses Diagnosis ILD (interstitial lung disease) (CMS/HCC) (HCC) Postinflammatory pulmonary fibrosis documented in this encounter Care Teams Booking Agent Relationship Specialty Start Date End Date Liliana Baron MD PCP - General Internal Medicine 01/14/23 04/11/23 Ni Armas, RN Registered Nurse Pulmonary Disease 01/11/23 documented as of this encounter
--- OUTSIDE RECORDS SUMMARY | 2024-11-15 05:55 | XMS_ITS | Encounter Summary ---
Author Organization [facility] Address [address] [facility] [address] [place] [address] Care Team Providers Care Rn Supplemental Name Role Phone Ni Armas RN Unavailable Lizette Liliana Prakash MD Primary Care Provider [phone] Encounter Details Date Type Department Care Team (Late st Contact Info) Description 03/26/2023 Orders Only [facility] Cardiology [address] [place] [address] iNnfa Khan MD [address] [address] Social History Tobacco Use Types Packs/Day Years Used Date Smoking Tobacco: Never Smokeless Tobacco: Never Alcohol Use Standard Drinks/Week Comments Not Currently 0 (1 standard drink = 0.6 oz pur e alcohol) Comments Unknown Sex and Gender Information Value Date Recorded Sex Assigned at Not on file Legal Sex Female 1:14 AM GLASS BENDER Gender Identity Female 05/04/2020 3:33 PM CDT Sexual Orientation Not on file 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 Not on file Not on file documented as of this encounter Plan of Treatment Not on file documented as of this encounter Procedures Procedure Name Priority Date/Time Associated Diagnosis Comments CARDIOLOGY DOCUMENT SCAN Routine 03/26/2023 documented in this encounter Results * Cardiology Document Scan (03/26/2023) Anatomical Region Laterality Modality Other Marietta Pantoja NP CV CARDIAC SERVICES PROCEDUR ES Final Result documented in this encounter Visit Diagnoses Not on filedocumented in this encounter Care Teams Rn Supplemental Relationship Specialty Start Date End Date Liliana Baron MD PCP - General Internal Medicine 01/14/23 04/11/23 Ni Armas, RN Registered Nurse Pulmonary Disease 01/11/23 documented as of this encounter
--- OUTSIDE RECORDS SUMMARY | 2024-11-15 05:55 | XMS_ITS | Encounter Summary ---
Author Organization 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
--- OUTSIDE RECORDS SUMMARY | 2024-11-15 05:55 | XMS_ITS | Encounter Summary ---
Author Organization [facility] Address [address] [facility] [address] [place] [address] Care Team Providers Care Record Systems Analyst Name Role Phone Ni Armas RN Unavailable Lizette Liliana Prakash MD Primary Care Provider [phone] Encounter Details Date Type Department Care Team (Late st Contact Info) Description 03/25/2023 Orders Only [facility] Cardiology [address] [place] [address] Myles Reyes MD [address] [facility] [address] [place] [id number] Social History Tobacco Use Types Packs/Day Years Used Date Smoking Tobacco: Never Smokeless Tobacco: Never Alcohol Use Standard Drinks/Week Comments Not Currently 0 (1 standard drink = 0.6 oz pur e alcohol) Comments Unknown Sex and Gender Information Value Date Recorded Sex Assigned at Not on file Legal Sex Female 1:14 AM WHITE SOURER Gender Identity Female 05/04/2020 3:33 PM CDT Sexual Orientation Not on file 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 file Not on file documented as of this encounter Plan of Treatment Not on file documented as of this encounter Procedures Procedure Name Priority Date/Time Associated Diagnosis Comments CARDIOLOGY DOCUMENT SCAN Routine 03/25/2023 documented in this encounter Results * Cardiology Document Scan (03/25/2023) Anatomical Region Laterality Modality Other Myles Reyes MD CV CARDIAC SERVICES PROC EDURES Final Result documented in this encounter Visit Diagnoses Not on filedocumented in this encounter Care Teams Record Systems Analyst Relationship Specialty Start Date End Date Liliana Baron MD PCP - General Internal Medicine 01/14/23 04/11/23 Ni Armas, RN Registered Nurse Pulmonary Disease 01/11/23 documented as of this encounter
--- OUTSIDE RECORDS SUMMARY | 2024-11-15 05:55 | XMS_ITS | Encounter Summary ---
Author Organization [facility] Address [address] [facility] [address] [place] [address] Care Team Providers Care Iphone Developer Name Role Phone Ni Armas RN Unavailable Lizette Liliana Prakash MD Primary Care Provider [phone] Encounter Details Date Type Department Care Team (Late st Contact Info) Description 04/06/2023 Orders Only [facility] Cardiology [address] [facility] [address] [facility] [address] [place] [address] Romy Price MD [address] [facility] [address] [place] [address] Social History Tobacco Use Types Packs/Day Years Used Date Smoking Tobacco: Never Smokeless Tobacco: Never Alcohol Use Standard Drinks/Week Comments Not Currently 0 (1 standard drink = 0.6 oz pur e alcohol) Comments Unknown Sex and Gender Information Value Date Recorded Sex Assigned at Not on file Legal Sex Female 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 WRECKER Gender Identity Female 05/04/2020 3:33 PM CDT [...] on filedocumented in this encounter Care Teams Iphone Developer Relationship Specialty Start Date End Date Liliana Baron MD PCP - General Internal Medicine 01/14/23 04/11/23 Ni Armas, RN Registered Nurse Pulmonary Disease 01/11/23 documented as of this encounter
--- OUTSIDE RECORDS SUMMARY | 2024-11-15 05:55 | XMS_ITS | Encounter Summary ---
Author Organization [facility] Address [address] [facility] [address] [place] [address] Care Team Providers Care Glass Beveller Name Role Phone Ni Armas RN Unavailable Lizette Liliana Prakash MD Primary Care Provider [phone] Timothy Donis MD Primary Care Provider [phone] [phone] Encounter Details Date Type Department Care Team (Late st Contact Info) Description 03/12/2023 Telephone [facility] Cardiology [address] [facility] [address] [place] [address] Myles Reyes MD [address] [facility] [address] [place] [address] Social History Tobacco Use Types Packs/Day Years Used Date Smoking Tobacco: Never Smokeless Tobacco: Never Alcohol Use Standard Drinks/Week Comments Not Currently 0 (1 standard drink = 0.6 oz pur e alcohol) Comments Unknown Sex and Gender Information Value Date Recorded Sex Assigned at Not on file Legal Sex Female 1:14 AM PLASTIC SEWER Gender Identity Female 05/04/2020 3:33 PM CDT Sexual Orientation Not on file 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 States theydid an EKG on her and it showed SVT. pt HR has been around 140-150s every day. Requesting call back to discuss. Contact: documented in this encounter Plan of Treatment Not on file documented as of this encounter Visit Diagnoses Not on filedocumented in this encounter Care Teams Glass Beveller Relationship Specialty Start Date End Date Liliana Baron MD PCP - General Internal Medicine 01/14/23 04/11/23 Timothy Donis MD PCP - General Family Practice 04/12/23 Ni Armas, BILLY Registered Nurse Pulmonary Disease 01/11/23 documented as of this encounter
--- OUTSIDE RECORDS SUMMARY | 2024-11-15 05:55 | XMS_ITS | Encounter Summary ---
Author Organization [facility] Address [address] [facility] [address] [place] [address] Care Team Providers Care Heel Reducer Name Role Phone Ni Armas RN Unavailable Lizette Liliana Prakash MD Primary Care Provider [phone] Encounter Details Date Type Department Care Team (Late st Contact Info) Description 03/23/2023 Orders Only [facility] Cardiology [address] [place] [address] Ninfa Khan MD [address] [address] Social History Tobacco Use Types Packs/Day Years Used Date Smoking Tobacco: Never Smokeless Tobacco: Never Alcohol Use Standard Drinks/Week Comments Not Currently 0 (1 standard drink = 0.6 oz pur e alcohol) Comments Unknown Sex and Gender Information Value Date Recorded Sex Assigned at Not on file Legal Sex Female 1:14 AM CLINICAL RADIOLOGIST Gender Identity Female 05/04/2020 3:33 PM CDT Sexual Orientation Not on file 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 Not on file documented as of this encounter Plan of Treatment Not on file documented as of this encounter Procedures Procedure Name Priority Date/Time Associated Diagnosis Comments CARDIOLOGY DOCUMENT SCAN Routine 03/23/2023 documented in this encounter Results * Cardiology Document Scan (03/23/2023) Anatomical Region Laterality Modality Other Ninfa Khan MD CV CARDIAC SERVICES PRO CEDURES Final Result documented in this encounter Visit Diagnoses Not on filedocumented in this encounter Care Teams Heel Reducer Relationship Specialty Start Date End Date Liliana Baron MD PCP - General Internal Medicine 01/14/23 04/11/23 Ni Armas, RN Registered Nurse Pulmonary Disease 01/11/23 documented as of this encounter
--- OUTSIDE RECORDS SUMMARY | 2024-11-15 05:55 | XMS_ITS | Encounter Summary ---
Author Organization [facility] Address [address] [place] [address] Phone Care Team Providers Care Child Care Attendant Name Role Phone Ni Armas RN Unavailable Lizette Liliana Prakash MD Primary Care Provider [phone] Encounter Details Date Type Department Care Team (Late st Contact Info) Description 03/12/2023 Telephone [facility] Pulmonary [address] [facility] 8[address] [place] [address] [place] [address] Ni Armas, BILLY Social History Tobacco Use Types Packs/Day Years Used Date Smoking Tobacco: Never Smokeless Tobacco: Never Alcohol Use Standard Drinks/Week Comments Not Currently 0 (1 standard drink = 0.6 oz pur e alcohol) Comments Unknown Sex and Gender Information Value Date Recorded Sex Assigned at Not on file Legal Sex Female 1:14 AM 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 They were instructed to go to the ED which is where they are now. They have been in contact with pts ceramic plater as well. Information forwarded to Dr. Correa. ----- Message from Denita Correa MD sent at 03/12/2023 7:31 AM CDT ----- Can you check with them to see if she went to hospital? documented in this encounter Plan of Treatment Not on file documented as of this encounter Visit Diagnoses Not on filedocumented in this encounter Care Teams Child Care Attendant Relationship Specialty Start Date End Date Liliana Baron MD PCP - General Internal Medicine 01/14/23 04/11/23 Ni Armas, RN Registered Nurse Pulmonary Disease 01/11/23 documented as of this encounter
--- OUTSIDE RECORDS SUMMARY | 2024-11-15 05:55 | XMS_ITS | Encounter Summary ---
Author Organization [facility] Address [address] [facility] [address] [place] [address] Care Team Providers Care Electrical Superintendent Name Role Phone Ni Armas RN Unavailable Lizette Liliana Prakash MD Primary Care Provider [phone] Timothy Donis MD Primary Care Provider [phone] [phone] Encounter Details Date Type Department Care Team (Late st Contact Info) Description 04/08/2023 Orders Only [facility] Information Management [address] [place] [address] Scanning, Provider Social History Tobacco Use Types Packs/Day Years Used Date Smoking Tobacco: Never Smokeless Tobacco: Never Alcohol Use Standard Drinks/Week Comments Not Currently 0 (1 standard drink = 0.6 oz pur e alcohol) Comments Unknown Sex and Gender Information Value Date Recorded Sex Assigned at Not on file Legal Sex Female 1:14 AM CRUSHER TENDER Gender Identity Female 05/04/2020 3:33 PM CDT Sexual Orientation Not on file 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 Not on file Not on file documented as of this encounter Plan of Treatment Not on file documented as of this encounter Procedures Procedure Name Priority Date/Time Associated Diagnosis Comments SCAN - RADIOLOGY/IMAGING 04/08/2023 documented in this encounter Results * SCAN - RADIOLOGY/IMAGING (04/08/2023) Anatomical Region Laterality Modality Other us Provider Scanning Final Result documented in this encounter Visit Diagnoses Not on filedocumented in this encounter Care Teams Electrical Superintendent Relationship Specialty Start Date End Date Liliana Baron MD PCP - General Internal Medicine 01/14/23 04/11/23 Timothy Donis MD PCP - General Family Practice 04/12/23 Ni Armas, BILLY Registered Nurse Pulmonary Disease 01/11/23 documented as of this encounter
--- OUTSIDE RECORDS SUMMARY | 2024-11-15 05:55 | XMS_ITS | Encounter Summary ---
Author Organization [facility] Address [address] [place] [address] Phone Care Team Providers Care Supervisor Packing Room Name Role Phone Ni Armas RN Unavailable Lizette Liliana Prakash MD Primary Care Provider [phone] Timothy Donis MD Primary Care Provider [phone] [phone] Reason for Visit * Reason Onset Date Comments Med Management 04/08/2023 Encounter Details Date Type Department Care Team (Late st Contact Info) Description 04/08/2023 Telephone [facility] Rheumatology [facility] [facility] 5th [place] [address] [place] [address] Tomeka Kwok RMA Med Management Social History Tobacco Use Types Packs/Day Years Used Date Smoking Tobacco: Never Smokeless Tobacco: Never Alcohol Use Standard Drinks/Week Comments Not Currently 0 (1 standard drink = 0.6 oz pur e alcohol) Comments Unknown Sex and Gender Information Value Date Recorded Sex Assigned at Not on file Legal Sex Female 1:14 AM ASSESSMENT COORDINATOR Gender Identity Female 05/04/2020 3:33 PM CDT Sexual Orientation Not on file 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 Spoke to Lynn Wade RN regarding Dr. Bauman's approval for patient to re-start Oren[facility]. Gave verbal orders. Med will be ordered through them. * Telephone Encounter - Tomeka Kwok RMA - 04/09/2023 4:47 PM CDT Spoke to aliza Wall, Patient is currently hospitalized and may be discharged soon. She will call us back once she is discharged for next steps on re-starting O[facility]. * Telephone Encounter - Tomeka Kwok RMA - 04/08/2023 4:23 PM CDT Patient was recently re-admitted [facility] in [facility]. Daughter Mae would like patient to re-start O[facility] for RA sx. However Dr. Bauman would like to first speak to hospitalist on staff to discuss further. LMOM for hospitalist nurse providing Dr. Bauman's direct line. Also lmom for Mae informing. documented in this encounter Plan of Treatment Not on file documented as of this encounter Visit Diagnoses Not on filedocumented in this encounter Care Teams Supervisor Packing Room Relationship Specialty Start Date End Date Liliana Baron MD PCP - General Internal Medicine 01/14/23 04/11/23 Timothy Donis MD PCP - General Family Practice 04/12/23 Ni Armas, BILLY Registered Nurse Pulmonary Disease 01/11/23 documented as of this encounter
--- OUTSIDE RECORDS SUMMARY | 2024-11-15 05:55 | XMS_ITS | Encounter Summary ---
Author Organization [facility] Address [address] [facility] [address] [facility] [address] [place] [address] Care Team Providers Care Contracts Law Professor Name Role Phone Ni Armas RN Unavailable Lizette Liliana Prakash MD Primary Care Provider [phone] [phone] Encounter Details Date Type Department Care Team (Late st Contact Info) Description 03/15/2023 Orders Only [facility] Cardiology [address] [place] [address] Obed Sands MD [address] [facility] [address] [place] [address] Social History Tobacco Use Types Packs/Day Years Used Date Smoking Tobacco: Never Smokeless Tobacco: Never Alcohol Use Standard Drinks/Week Comments Not Currently 0 (1 standard drink = 0.6 oz pur e alcohol) Comments Unknown Sex and Gender Information Value Date Recorded Sex Assigned at Not on file Legal Sex Female 1:14 AM OBSERVER HELPER Gender Identity Female 05/04/2020 3:33 PM CDT Sexual Orientation Not on file 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 file Not on file documented as of this encounter Plan of Treatment Not on file documented as of this encounter Procedures Procedure Name Priority Date/Time Associated Diagnosis Comments CARDIOLOGY DOCUMENT SCAN Routine 03/15/2023 documented in this encounter Results * Cardiology Document Scan (03/15/2023) Anatomical Region Laterality Modality Other us Obed Sands MD CV CARDIAC SERVICES PROC EDURES Final Result documented in this encounter Visit Diagnoses Not on filedocumented in this encounter Care Teams Contracts Law Professor Relationship Specialty Start Date End Date Liliana Baron MD PCP - General Internal Medicine 01/14/23 04/11/23 Ni Armas, RN Registered Nurse Pulmonary Disease 01/11/23 documented as of this encounter
--- OUTSIDE RECORDS SUMMARY | 2024-11-15 05:55 | XMS_ITS | Encounter Summary ---
Author Organization [facility] Healthcare Address [address] [place] [address] Care Team Providers Care Compounder Flavorings Name Role Phone Ni Armas RN Unavailable Lizette Liliana Prakash MD Primary Care Provider [phone] [phone] Encounter Details Date Type Department Care Team (Latest Contact Info) Description 03/08/2023 1:10 PM CDT - 03/08/2023 11:59 PM CDT Hospital Encounter [facility] [address] [place] [id number] Increased sputum production Discharge Disposition: Discharge to home or self care Social History Tobacco Use Types Packs/Day Years Used Date Smoking Tobacco: Never Smokeless Tobacco: Never Alcohol Use Standard Drinks/Week Comments Not Currently 0 (1 standard drink = 0.6 oz pur e alcohol) Comments Unknown Sex and Gender Information Value Date Recorded Sex Assigned at Not on file Legal Sex Female 1:14 AM WIRELESS CONSULTANT Gender Identity Female 05/04/2020 3:33 PM CDT Sexual Orientation Not on file 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 Not on file Not [...] Take one po on Mon, Wed, Sat 12 tablet 5 01/28/2023 3 documented as of this encounter Discharge Disposition Disposition Code Departure Means Destination Discharge to home or self care documented in this encounter Plan of Treatment Not on file documented as of this encounter Procedures Procedure Name Priority Date/Time Associated Diagnosis Comments AEROBIC CULTURE AND GRAM STAIN Routine 03/08/2023 1:21 PM CDT Increased sputum production documented in this encounter Results * Aerobic culture and gram stain Sputum Lung (03/08/2023 1:21 PM CDT) Direct Specimen Exam Stain: Abundant squamous epithelial cells seen indicating excessive oropharyngeal contamination. ??Culture will not be processed further. ??Please submit another specimen. Smear results called to and read back by: Tabitha Swain MT [phone] on 03/08/2023 21:10:15 by: SOFYA Clark Comment:Testing performed by : [facility], [address] [place]., [address] Report Final Report: This is the final report. KURT Comment:Testing performed by : [facility], [address] [place]., [address] Sputum (Lung) 03/08/2023 1:2 1 PM CDT 03/08/2023 7:12 PM CDT Narrative KURT - 03/09/2023 8:06 AM CDT cancellation notification faxed to Dr. Correa's office 03/08/2023 21:49:36 CDT [id number] Testing performed by [facility] ([phone]) Specimens submitted from normally sterile body sites will have all bacterial morphotypes identified. ??Specimens that contain grossly mixed dale and/or are from body sites that are not normally sterile will be examined for Staphylococcus aureus, Pseudomonas aeruginosa, beta-hemolytic strep, vancomycin-resistant Enterococcus and fungus. ??If any of these are isolated, the organism will be reported. Current interpretive data was last revised on 2017. Denita Correa MD LAB MICROBIOLOGY - GENERAL O RDERABLES Final Result KURT [address] [facility] Department [place] [address] documented in this encounter Visit Diagnoses Diagnosis Increased sputum production documented in this encounter Care Teams Compounder Flavorings Relationship Specialty Start Date End Date Liliana Baron MD PCP - General Internal Medicine 01/14/23 04/11/23 Ni Armas, RN Registered Nurse Pulmonary Disease 01/11/23 documented as of this encounter
--- OUTSIDE RECORDS SUMMARY | 2024-11-15 05:55 | XMS_ITS | Encounter Summary ---
Author Organization [facility] Address [address] [place] [address] Phone Care Team Providers Care Internet Sales Associate Name Role Phone Ni Armas RN Unavailable Lizette Liliana Prakash MD Primary Care Provider [phone] Reason for Visit * Reason Onset Date Comments Med Management 03/22/2023 Encounter Details Date Type Department Care Team (Late st Contact Info) Description 03/22/2023 Telephone [facility] Rheumatology [facility] Advanced Medicine 5th [place] [address] [place] [address] Tomeka Kwok RMA Med Management Social History Tobacco Use Types Packs/Day Years Used Date Smoking Tobacco: Never Smokeless Tobacco: Never Alcohol Use Standard Drinks/Week Comments Not Currently 0 (1 standard drink = 0.6 oz pur e alcohol) Comments Unknown Sex and Gender Information Value Date Recorded Sex Assigned at Not on file Legal Sex Female 1:14 AM RAWHIDE BONE ROLLER Gender Identity Female 05/04/2020 3:33 PM CDT Sexual Orientation Not on file 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 Also having swelling, hard to ambulate. Not taking antibiotics currently. Only taking meds for elevated heart rate. Still taking 2.5 mg of Prednisone. Right side area starting to hurt. * Telephone Encounter - Tomeka Kwok RMA - 04/08/2023 9:31 AM CDT Requested most recent discharge summary from [facility]. Patient would like to re-start Orencia. Need to make sure she is free of infection and treatment is completed. * Telephone Encounter - Tomeka Kwok RMA - 03/22/2023 12:20 PM CDT Spoke to patient's daughter Mae. States patient is currently hospitalized at [facility] due elevated hr and low oxygen levels. She is holding Orencia for now. Wanted to make sure this ok to continue doing. Advised her to please continue holding and keep us posted. Cheryl states Blood culturesare currently pending for further antibiotic treatment. documented in this encounter Plan of Treatment Not on file documented as of this encounter Visit Diagnoses Not on filedocumented in this encounter Care Teams Internet Sales Associate Relationship Specialty Start Date End Date Liliana Baron MD PCP - General Internal Medicine 01/14/23 04/11/23 Ni Armas, BILLY Registered Nurse Pulmonary Disease 01/11/23 documented as of this encounter
--- OUTSIDE RECORDS SUMMARY | 2024-11-15 05:55 | XMS_ITS | Encounter Summary ---
Author Organization [facility] Healthcare Address [address] [place] [address] Care Team Providers Care Track Oiler Name Role Phone Ni Armas RN Unavailable Lizette Liliana Prakash MD Primary Care Provider [phone] Encounter Details Date Type Department Care Team (Latest Contact Info) Description 03/29/2023 1:29 PM CDT - 03/29/2023 11:59 PM CDT Hospital Encounter [facility] [address] [place] [id number] Discharge Disposition: Discharge to home or self care Social History Tobacco Use Types Packs/Day Years Used Date Smoking Tobacco: Never Smokeless Tobacco: Never Alcohol Use Standard Drinks/Week Comments Not Currently 0 (1 standard drink = 0.6 oz pur e alcohol) Comments Unknown Sex and Gender Information Value Date Recorded Sex Assigned at Not on file Legal Sex Female 1:14 AM AUTOMOTIVE PROJECT ENGINEER Gender Identity Female 05/04/2020 3:33 PM CDT Sexual Orientation Not on file 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 Radiology. ??There will be no report generated by a [facility] Radiologist. Narrative RAD_PACS[facility] - 03/29/2023 1:29 PM CDT EXAMINATION: ??Images For Reference Purposes Only us Denita Correa MD IMG CT PROCEDURES Final Resu lt [facility] documented in this encounter Visit Diagnoses Not on filedocumented in this encounter Care Teams Track Oiler Relationship Specialty Start Date End Date Liliana Baron MD PCP - General Internal Medicine 01/14/23 04/11/23 Ni Armas, RN Registered Nurse Pulmonary Disease 01/11/23 documented as of this encounter
--- OUTSIDE RECORDS SUMMARY | 2024-11-15 05:55 | XMS_ITS | Encounter Summary ---
Author Organization [facility] Address [address] [place] [address] Phone Care Team Providers Care Amusement Or Recreation Card Checker Name Role Phone Ni Armas RN Unavailable Lizette Liliana Prakash MD Primary Care Provider [phone] [phone] Encounter Details Date Type Department Care Team (Late st Contact Info) Description 03/20/2023 Telephone [facility] Pulmonary [address] [facility] Advanced Medicine [address]th [place] [address] [place] [address] Denita Correa MD [address] [facility] [address] [place] [address] Social History Tobacco Use Types Packs/Day Years Used Date Smoking Tobacco: Never Smokeless Tobacco: Never Alcohol Use Standard Drinks/Week Comments Not Currently 0 (1 standard drink = 0.6 oz pur e alcohol) Comments Unknown Sex and Gender Information Value Date Recorded Sex Assigned at Not on file Legal Sex Female 1:14 AM RAW PRODUCTS DIRECTOR Gender Identity Female 05/04/2020 3:33 PM CDT Sexual Orientation Not on file 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 50 tablet 03/20/2023 04/26/2023 documented in this encounter Miscellaneous Notes * Telephone Encounter - Denita oCrrea MD - 03/20/2023 4:50 PM CDT 03/20/23: 1650 - spoke to patient's daughter. Patient is sleeping constantly although arousable and not confused. However, does not want to get out of bed. Only getting out of bed for bathroom but is trying to limit those trips. Using O2 at 4 lpm all the time. Still has cough with some sputum production. Currently upstairs in bedroom, but daughter is not sure if she is going to be able to get her downstairs for cards appointment. Heart rate is still high. Recommended she call ambulance to go to ED. Will also send in prednisone in case patient refuses to go to ED. ----- Message from Ni Armas RN sent at 03/20/2023 4:08 PM CDT ----- Called pts daughter in regards to message below. Pt got out of the hospital last Saturday and has been in bed ever since. All she has been doing is sleeping. She can barely walk to the bathroom and back which is only 5-10 ft. She does have an appt with her primary and Manufacturing Technologist on Saturday. She states that her breathing and cough have not gotten any better. She is getting phlegm up but unable to te ll me the color d/t pt throwing it away. Her HR is still in the 100s. Denies fever, chills or body aches. Pt is wearing 4 L 24 hours a day. She states that she is unable to use her CPAP at night because she does not know how to bleed in her O2 and her saturations drop in the 70s. She said her mother only looks at her O2 saturations once she gets back in bed and those remain in the high 90s. Suggestions? ----- Message ----- From: Nolan Franks RMA Sent: 03/20/2023 1:35 PM CDT To: Ni Armas RN Pt daughter (Mae) states that patient is still having some SOB. She states that her HR is runningup in 100's. She is asking for any assistance. Mae can be reached at: [phone]. Thanks documented in this encounter Plan of Treatment Not on file documented as of this encounter Visit Diagnoses Not on filedocumented in this encounter Care Teams Amusement Or Recreation Card Checker Relationship Specialty Start Date End Date Liliana Baron MD PCP - General Internal Medicine 01/14/23 04/11/23 Ni Armas, RN Registered Nurse Pulmonary Disease 01/11/23 documented as of this encounter
--- OUTSIDE RECORDS SUMMARY | 2024-11-15 05:55 | XMS_ITS | Encounter Summary ---
Author Organization [facility] Address [address] [facility] [facility] [address] [place] [address] Care Team Providers Care Armoured Car Escort Name Role Phone Ni Armas RN Unavailable Lizette Liliana Prakash MD Primary Care Provider [phone] Timothy Donis MD Primary Care Provider [phone] Encounter Details Date Type Department Care Team (Late st Contact Info) Description 03/12/2023 Orders Only [facility] Health Information Management [address] [place] [address] Scanning, Provider Social History Tobacco Use Types Packs/Day Years Used Date Smoking Tobacco: Never Smokeless Tobacco: Never Alcohol Use Standard Drinks/Week Comments Not Currently 0 (1 standard drink = 0.6 oz pur e alcohol) Comments Unknown Sex and Gender Information Value Date Recorded Sex Assigned at Not on file Legal Sex Female 1:14 AM DYNAMOMETER TUNER Gender Identity Female 05/04/2020 3:33 PM CDT Sexual Orientation Not on file 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 Not on file Not on file documented as of this encounter Plan of Treatment Not on file documented as of this encounter Procedures Procedure Name Priority Date/Time Associated Diagnosis Comments SCAN - RADIOLOGY/IMAGING 03/12/2023 documented in this encounter Results * SCAN - RADIOLOGY/IMAGING (03/12/2023) Anatomical Region Laterality Modality Other us Provider Scanning Final Result documented in this encounter Visit Diagnoses Not on filedocumented in this encounter Care Teams Armoured Car Escort Relationship Specialty Start Date End Date Liliana Baron MD PCP - General Internal Medicine 01/14/23 04/11/23 Timothy Donis MD PCP - General Family Practice 04/12/23 Ni Armas, BILLY Registered Nurse Pulmonary Disease 01/11/23 documented as of this encounter
--- OUTSIDE RECORDS SUMMARY | 2024-11-15 05:55 | XMS_ITS | Encounter Summary ---
Author Organization [facility] Address [address] [place] [address] Care Team Providers Care Maxillofacial Prosthetics Dentist Name Role Phone Ni Armas RN Unavailable Lizette Timothy Land MD Primary Care Provider [phone] Reason for Visit * Reason Onset Date Comments Start Entresto 04/12/2023 Encounter Details Date Type Department Care Team (Late st Contact Info) Description 04/12/2023 Telephone [facility] Cardiology [address] [place] [address] Noa Cohen MA Start Entresto Social History Tobacco Use Types Packs/Day Years Used Date Smoking Tobacco: Never Smokeless Tobacco: Never Alcohol Use Standard Drinks/Week Comments Not Currently 0 (1 standard drink = 0.6 oz pur e alcohol) Comments Unknown Sex and Gender Information Value Date Recorded Sex Assigned at Not on file Legal Sex Female 1:14 AM GRAVURE PRESS SET UP OPERATOR Gender Identity Female 05/04/2020 3:33 PM CDT Sexual Orientation Not on file 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 Not on file documented as of this encounter Miscellaneous Notes * Telephone Encounter - Noa Cohen MA - 04/12/2023 9:18 AM CDT -Start Entresto 24/26 mg bid -BMP in 1 week -CT appt in two weeks Per AD [facility] notified Lab order faxed documented in this encounter Plan of Treatment Not on file documented as of this encounter Visit Diagnoses Not on filedocumented in this encounter Care Teams Maxillofacial Prosthetics Dentist Relationship Specialty Start Date End Date Timothy Donis MD PCP - General Family Practice 04/12/23 Ni Armas, RN Registered Nurse Pulmonary Disease 01/11/23 documented as of this encounter
--- OUTSIDE RECORDS SUMMARY | 2024-11-15 05:55 | XMS_ITS | Encounter Summary ---
Author Organization [facility] Address [address] [place] [address] Phone Care Team Providers Care Centralized Traffic Control Operator Name Role Phone Ni Armas RN Unavailable Lizette Liliana Prakash MD Primary Care Provider [phone] Encounter Details Date Type Department Care Team (Late st Contact Info) Description 04/03/[address] 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 Mae had several things to discuss. The followingwas forwarded to Dr. Correa. Pt s daughter wanted to let you know pt is now on 6 L with exertion and 4 L @ rest. She also will be getting evaluated next Thursday at her rehab to see if she will be getting out of not. Pt sees Cardiology next Saturday. She would like you to know that her records from the outside hospital are uploaded under the media tab in pts chart. Pt currently only on 2.5 mg of pred daily. Just verifying thatit is okay to stop the Bactrim. She was wondering if you would like to see the pt sooner than June. ----- Message from KISHA Haddad sent at 04/02/2023 9:27 AM CDT ----- Pt daughter (Mae) states that she is f/u on paperwork that was sent over. She also wants to speakwith you regarding her oxygen use when she does rehab. Mae can be reached at: [phone]. Thanks documented in this encounter Plan of Treatment Not on file documented as of this encounter Visit Diagnoses Not on filedocumented in this encounter Care Teams Centralized Traffic Control Operator Relationship Specialty Start Date End Date Liliana Baron MD PCP - General Internal Medicine 01/14/23 04/11/23 Ni Armas, RN Registered Nurse Pulmonary Disease 01/11/23 documented as of this encounter
--- OUTSIDE RECORDS SUMMARY | 2024-11-15 05:55 | XMS_ITS | Encounter Summary ---
Author Organization [facility] Address [address] [place] [address] Phone Care Team Providers Care Layout Operator Name Role Phone Ni Armas RN Unavailable Lizette Liliana Prakash MD Primary Care Provider [phone] Encounter Details Date Type Department Care Team (Late st Contact Info) Description 03/28/2023 Telephone [facility] Pulmonary [address] [facility] [address] [place] [address] Ni Armas, BILLY Social History Tobacco Use Types Packs/Day Years Used Date Smoking Tobacco: Never Smokeless Tobacco: Never Alcohol Use Standard Drinks/Week Comments Not Currently 0 (1 standard drink = 0.6 oz pur e alcohol) Comments Unknown Sex and Gender Information Value Date Recorded Sex Assigned at Not on file Legal Sex Female 1:14 AM DATA MODELING ARCHITECT Gender Identity Female 05/04/2020 3:33 PM CDT Sexual Orientation Not on file 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 Pt daughter states that her mom is now at a rehab facility ([facility]) but does not know how long she will be there. Dr. Reyes has scanned the notes of pts stay into the media tab. Pts daughter will be dropping off scans and reports of her imaging. She is also wanting to know when we should schedule her mom to come back to see us. Information forwarded to Dr. Correa. ----- Message from KISHA Haddad sent at 03/28/2023 11:04 AM CDT ----- Mae is wanting to speak with you regarding patient care. Please give Mae a call at: [phone]. Thanks documented in this encounter Plan of Treatment Not on file documented as of this encounter Visit Diagnoses Not on filedocumented in this encounter Care Teams Layout Operator Relationship Specialty Start Date End Date Liliana Baron MD PCP - General Internal Medicine 01/14/23 04/11/23 Ni Armas, RN Registered Nurse Pulmonary Disease 01/11/23 documented as of this encounter
--- OUTSIDE RECORDS SUMMARY | 2024-11-15 05:55 | XMS_ITS | Encounter Summary ---
Author Organization [facility] Address [address] [place] [address] Phone Care Team Providers Care Curing Oven Attendant Name Role Phone Ni Armas RN Unavailable Lizette Liliana Prakash MD Primary Care Provider [phone] Encounter Details Date Type Department Care Team (Late st Contact Info) Description 03/01/2023 Documentation [facility] Pulmonary [address] [facility] Advanced Medicine 8th [place] [address] [place] [address] Ni Armas, BILLY Social History Tobacco Use Types Packs/Day Years Used Date Smoking Tobacco: Never Smokeless Tobacco: Never Alcohol Use Standard Drinks/Week Comments Not Currently 0 (1 standard drink = 0.6 oz pur e alcohol) Comments Unknown Sex and Gender Information Value Date Recorded Sex Assigned at Not on file Legal Sex Female 1:14 AM RAILCAR FOREMAN Gender Identity Female 05/04/2020 3:33 PM CDT Sexual Orientation Not on file 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 Please schedule pt 03/08 @ 0945. Pt will need 6 mw prior to appt. Please notify pt of times. Thank you Ni documented in this encounter Plan of Treatment Not on file documented as of this encounter Visit Diagnoses Not on filedocumented in this encounter Care Teams Curing Oven Attendant Relationship Specialty Start Date End Date Liliana Baron MD PCP - General Internal Medicine 01/14/23 04/11/23 Ni Armas, RN Registered Nurse Pulmonary Disease 01/11/23 documented as of this encounter
--- OUTSIDE RECORDS SUMMARY | 2024-11-15 05:55 | XMS_ITS | Encounter Summary ---
Author Organization [facility] Address [address] [place] [address] Phone Care Team Providers Care Supervisor Microwave Name Role Phone Ni Armas RN Unavailable Lizette Liliana Prakash MD Primary Care Provider [phone] [phone] Encounter Details Date Type Department Care Team (Late st Contact Info) Description 03/20/2023 Telephone [facility] Pulmonary [address] [facility] 8th [place] [address] [place] [address] Ni Armas, BILLY Social History Tobacco Use Types Packs/Day Years Used Date Smoking Tobacco: Never Smokeless Tobacco: Never Alcohol Use Standard Drinks/Week Comments Not Currently 0 (1 standard drink = 0.6 oz pur e alcohol) Comments Unknown Sex and Gender Information Value Date Recorded Sex Assigned at Not on file Legal Sex Female 1:14 AM ORACLE DATABASE MANAGER Gender Identity Female 05/04/2020 3:33 PM CDT Sexual Orientation Not on file 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 Pt got out of the hospital last Saturday and has been in bed ever since. All she has been doing is sleeping. She can barely walk to the bathroom and back which is only 5-10 ft. She does have an appt with her primary and Steel Wool Machine Operator on Saturday. She statesthat her breathing and cough have not gotten any better. She is getting phlegm up but unable to tell me the color d/t pt throwing it [...] and those remain in the high 90s. Information forwarded to Dr. Correa. ----- Message from KISHA Haddad sent at 03/20/2023 1:33 PM CDT ----- Pt daughter (Mae) states that patient is still having some SOB. She states that her HR is runningup in 100's. She is asking for any assistance. Mae can be reached at: [phone]. Thanks documented in this encounter Plan of Treatment Not on file documented as of this encounter Visit Diagnoses Not on filedocumented in this encounter Care Teams Supervisor Microwave Relationship Specialty Start Date End Date Liliana Baron MD PCP - General Internal Medicine 01/14/23 04/11/23 Ni Armas, RN Registered Nurse Pulmonary Disease 01/11/23 documented as of this encounter
--- OUTSIDE RECORDS SUMMARY | 2024-11-15 05:55 | XMS_ITS | Encounter Summary ---
Author Organization [facility] Address [address] [facility] [address] [place] [address] Phone Care Team Providers Care Supply Chain Manager Name Role Phone Ni Armas RN Unavailable Lizette Liliana Prakash MD Primary Care Provider [phone] [phone] Reason for Referral * Procedure (Routine) - Closed Specialty Diagnoses / Procedures Referred By Contac t Referred To Contact Diagnoses Rheumatoid lung disease (CMS/HCC) (HCC) Procedures Pulmonary Function Test -[facility] Adult PFT Lab- [facility]; Spirometry, Oxygen Assessment Titration Denita Correa MD [address] [place] [address] Phone: tel: fax: Referral ID Status Reason Start Date Expiration Date Visits Re quested Visits Authorized [id number] Closed 03/08/2023 04/06/2024 1 1 Encounter Details Date Type Department Care Team (Late st Contact Info) Description 03/08/2023 9:45 AM CDT Office Visit [facility] Pulmonary [address] [facility] 8th [place] [address] [place] [address] Denita Correa MD [address] [place] [address] Rheumatoid lung disease (CMS/HCC) (HCC) (Primary Dx); Increased sputum production Social History Tobacco Use Types Packs/Day Years Used Date Smoking Tobacco: Never Smokeless Tobacco: Never Alcohol Use Standard Drinks/Week Comments Not Currently 0 (1 standard drink = 0.6 oz pur e alcohol) Comments Unknown Sex and Gender Information Value Date Recorded Sex Assigned at Not on file Legal Sex Female 1:14 AM GRINDING SUPERVISOR Gender Identity Female 05/04/2020 3:33 PM CDT Sexual Orientation Not on file 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 on file Not on file documented as of this encounter Last Filed Vital Signs Vital Sign Reading Time Taken Comments Blood Pressure 136/83 03/08/2023 9:22 AM CDT Pulse 103 03/08/2023 9:27 AM CDT Temperature 36.6 ??C (97.8 ??F) 03/08/2023 9:22 AM CD T Respiratory Rate 18 03/08/2023 9:22 AM CDT Oxygen Saturation 92% 03/08/2023 9:22 AM CDT 2L Inhaled Oxygen Concentration - - Weight 105.2 kg (232 lb) 03/08/2023 9:22 AM CDT Height 157.5 cm (5' 2 ) 03/08/2023 9:22 AM CDT Body Mass Index 42.43 03/08/2023 9:22 AM CDT documented in this encounter Patient Instructions * Patient Instructions* Ni Armas RN - 03/08/2023 9:45 AM CDT Please call BILLY Dan with any questions at [phone]. documented in this encounter Ordered Prescriptions Prescription Sig Dispense Quantity Refills Last Filled Start Date End Date amoxicillin-clavul anate (AUGMENTIN) 875-125 mg per tablet Take 1 tablet by mouth 2 (two) times a day for 7 days 14 tablet 03/08/2023 03/15/2023 documented in this encounter Progress Notes * Denita Correa MD - 03/08/2023 9:45 AM CDT PATIENT NAME: AYANNA CASH Alli : 1950 ANGELICA: 03/08/2023 PROBLEM LIST: Rheumatoid arthritis, seropositive, previously on methotrexate, A. Current therapy: abatacept, HCQ and pred 2.5 daily Hypertension. Congestive heart failure. Obstructive sleep apnea on CPAP. History of [...] exacerbation. DJD of bilateral hips Osteopenia INTERVAL HISTORY: Ms. Cash was last seen in Dec 2022 and returns for early follow up due to a drop in lung functionat her last visit. She had stable imaging findings on HRCT at that time and was treated with a prednisone taper from 40 mg, tapering by 10 mg weekly and currently is on 2.5 mg daily. She noticed a slight improvement in her dyspnea while on prednisone but felt like most of her improvement was in joint pain involving her arms/shoulders and noticed enhanced mobility. She continues to have significant dyspnea with minimal exertion, such as transferring from her wheelchair or walking a few feet. Shehas intermittent dyspnea at rest, especially after coughing. She developed URI symptoms with cough and thick, green sputum production in late January. She has held her Orencia since 02/19 per rheum advice and received a 10 day course of cefdinir. Her cough and sputum production have persisted despite antibiotics. She continues to produce thick, green sputum. She has used mucinex with minimal improvement. She denies chest pain at rest or with exertion. She hasfrequently measured her HR > 130 recently but says it is as low as 79 at times. She attributes her elevated HR to frequent coughing. MEDICATIONS: Metoprolol 50 mg a day. Abatacept - held for infectious symptoms since 02/19 alendronate Tylenol p.r.n. Calcium with vitamin D3. Cholestyramine. Vitamin B12 1000 mcg a day. Duloxetine 20 mg a day. Eliquis 5 mg b.i.d. Lasix 60 mg a day. Hydroxychloroquine 200 mg b.i.d. Levothyroxine 112 mcg a day. Potassium chloride. Pravachol 80 mg a day. Prednisone 2.5 mg a day. Sulfamethoxazole-trimethoprim MWF for PPX Ultram p.r.n. REVIEW OF SYSTEMS: Persistent cough and sputum production, denies fevers, denies night sweats, denies chest pain at rest or with light exertion. Improved joint pain in upper extremities but persistent bilateral hip pain. Fatigue. PHYSICAL EXAMINATION: Vital Signs: Afebrile, blood pressure 136/83, HR 143, improved to 103 after 5 minutes, RR 18, SpO2 92% on 2L. General: Pleasant, chronically-ill appearing, no distress. HEENT: No scleral icterus. Neck: supple Lungs: Bibasilar inspiratory crackles, no wheezing. Normal WOB. Cardiovascular: S1, S2. No murmurs, rubs, or gallops. Abdomen: soft, non-tender Extremities: no cyanosis, trace pitting edema bilaterally Psych: normal affect DATA: Spirometry: Date FVC,% pred FEV1, % pred FEV1/FVC TLC, % pred DLCO, % pred 02/2023 1.36 0.99 73% 12/2022 0.89, 38% 0.86, 43% 88% 05/2022 1.40, 55% 1.21, 62% 87% 02/2022 1.26, 49% 1.10, 55% 87% 10/2021 1.22, 47% 1.11, 56% 91% 2.63, 55% 45% Oxygen assessment: Resting room air saturation 98%. She walked 150 feet with a room air saturation trixie of 85%. She required 2 L/minute to maintain an O2 saturation greater than 90% during recovery.KAITLIN of 4. HR 142 at start, peak 148. IMPRESSION: Ms. Cash is a 72-year-old woman with a history of underlying rheumatoid arthritis and associated interstitial lung disease, who returns for follow-up after a recent visit in Dec 2022 where she had a significant decline in her PFT's. Her HRCT showed relatively stable fibrotic disease at that time.She received a pred taper but has minimal improvement in her dyspnea. However, her PFT's obtained locally do show improvement in her spirometry to her approximate baseline from 3111-9365. Unfortunately, her dyspnea is likely multifactorial and driven by deconditioning, obesity, CHF, in addition to fibrotic lung disease. RECOMMENDATIONS: For her persistent URI symptoms with purulent sputum production, we will provide her with a sample to collect sputum for culture at [facility]. We will provide Augmentin for a 7 daycourse. Given her improved PFT in early February and stable CT from last visit, we will not modify her immunosuppression plan at this time. She will continue pred 2.5 and Orencia + HCQ for her RA. We encouragedher to hold today's dose of Orencia for one more week while on antibiotics and advised that we would notify her air route traffic controller. We will plan to see her back in approximately 4 months with spirometry and oxygen assessment. Ciro Taylor MD PGY5 Crime Prevention Police Officer TEACHING PHYSICIAN ADDENDUM: I have seen and examined the patient with Dr. Taylor on 03/08/2023. I agree with the findings and plan of care as documented in the resident/fellow's note. I have edited thenote. Denita Correa MD double end chucking machine operator Diplomate in Sleep Medicine, [place] Board of Internal Medicine documented in this encounter Plan of Treatment Not on file documented as of this encounter Results * Pulmonary Function Test - (04/26/2023 9:13 AM CDT) FVC PRE 0.95 L [facility] FVC %PRE PRED 38 % [facility] FEV1 PRE 0.79 L [facility] FEV1 %PRE PRED 40 % [facility] FEV1/FVC PRE 82.9 % [facility] Anatomical Region Laterality Modality PFT 04/26/2023 8:43 AM CDT Narrative 04/29/2023 9:01 PM CDT Table formatting from the original result was not included. [facility] Division of Pulmonary & Critical Care Medicine [address] [place] [address]; [place] [address]; [place], [place] ??[address]; [phone] Pulmonary Function Laboratory Pulmonary Stress Test Simple/Oxygen [...] written final report. PFT performed at:->[facility] Adult PFT Lab- [facility]D Procedure:->Spirometry Procedure:->Oxygen Assessment Titration Denita Correa MD PFT ORDERABLES Final Result * Aerobic culture and gram stain Sputum Lung (03/08/2023 1:21 PM CDT) Direct Specimen Exam Stain: Abundant squamous epithelial cells seen indicating excessive oropharyngeal contamination. ??Culture will not be processed further. ??Please submit another specimen. Smear results called to and read back by: Tabitha Swain MT [phone] on 03/08/2023 21:10:15 by: SOFYA Clark Comment:Testing performed by : [facility], [address] [place]., [address] Report Final Report: This is the final report. KURT CRAIG Comment:Testing performed by : [facility], [address] [place]., [address] Sputum (Lung) 03/08/2023 1:2 1 PM CDT 03/08/2023 7:12 PM CDT Narrative KURT CRAIG - 03/09/2023 8:06 AM CDT cancellation notification faxed to Dr. Correa's office 03/08/2023 21:49:36 CDT [id number] Testing performed by [facility] Microbiology Laboratory ([phone]) Specimens submitted from normally sterile body sites [...] - GENERAL O RDERABLES Final Result KURT [address] [facility] Department [place] [address] documented in this encounter Visit Diagnoses Diagnosis Rheumatoid lung disease (CMS/HCC) (HCC)- Primary Rheumatoid lung Increased sputum production Increased sputum production Rheumatoid lung disease (CMS/HCC) (HCC) Rheumatoid lung documented in this encounter Discontinued Medications Medication Sig Discontinue Reason Start Date End Da te cefdinir (OMNICEF) 300 mg capsule TAKE 1 CAPSULE BY MOUTH EVERY 12 HOURS FOR 10 DAYS 02/22/2023 03/08/2023 documented as of this encounter Care Teams Supply Chain Manager Relationship Specialty Start Date End Date Liliana Baron MD PCP - General Internal Medicine 01/14/23 04/11/23 Ni Armas, RN Registered Nurse Pulmonary Disease 01/11/23 documented as of this encounter
--- OUTSIDE RECORDS SUMMARY | 2024-11-15 05:55 | XMS_ITS | Encounter Summary ---
Author Organization [facility] Address [address] [facility] [address] [place] [address] Phone Care Team Providers Care Ross Furnace Operator Name Role Phone Ni Armas RN Unavailable Lizette Liliana Prakash MD Primary Care Provider [phone] Reason for Referral * Procedure (Routine) - Closed Specialty Diagnoses / Procedures Referred By Contac t Referred To Contact Diagnoses ILD (interstitial lung disease) (CMS/HCC) (HCC) Procedures Pulmonary Function Test -[facility] Adult PFT Lab- [facility]-8D; Oxygen Assessment Titration Denita Correa MD [address] [place] [address] Phone: tel: fax: Referral ID Status Reason Start Date Expiration Date Visits Re quested Visits Authorized [id number] Closed 03/01/2023 03/30/2024 1 1 Encounter Details Date Type Department Care Team (Late st Contact Info) Description 03/01/2023 Orders Only [facility] Pulmonary [address] [facility] 8th [place] [address] [place] [address] Denita Correa MD [address] [place] [address] ILD (interstitial lung disease) (CMS/HCC) (HCC) (Primary Dx) Social History Tobacco Use Types Packs/Day Years Used Date Smoking Tobacco: Never Smokeless Tobacco: Never Alcohol Use Standard Drinks/Week Comments Not Currently 0 (1 standard drink = 0.6 oz pur e alcohol) Comments Unknown Sex and Gender Information Value Date Recorded Sex Assigned at Not on file Legal Sex Female 1:14 AM SOFTWARE 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 [facility] Division of Pulmonary & Critical Care Medicine [address] [place] [address]; [place] [address]; [place], [place] ??[address]; [phone] Pulmonary Function Laboratory Pulmonary Stress Test Simple/Oxygen [...] ??RA 90 148 5 152/89 ?? 3 ??RA// 85/87/90 142 3 ?*Kaitlin rate of perceived [...] with the written final report. us Denita Correa MD PFT ORDERABLES Final Result documented in this encounter Visit Diagnoses Diagnosis ILD (interstitial lung disease) (CMS/HCC) (HCC)- Primary Postinflammatory pulmonary fibrosis ILD (interstitial lung disease) (CMS/[facility]) ([facility]) Postinflammatory pulmonary fibrosis documented in this encounter Care Teams Ross Furnace Operator Relationship Specialty Start Date End Date Liliana Baron MD PCP - General Internal Medicine 01/14/23 04/11/23 Ni Armas, BILLY Registered Nurse Pulmonary Disease 01/11/23 documented as of this encounter
--- OUTSIDE RECORDS SUMMARY | 2024-11-15 05:56 | XMS_ITS | Encounter Summary ---
Author Organization [facility] Address [address] [place] [address] Phone Care Team Providers Care Natural Science Manager Name Role Phone Ni Armas RN Unavailable Lizette Liliana Prakash MD Primary Care Provider [phone] Reason for Visit * Reason Onset Date Comments Med Management 02/22/2023 What should I do with my Orencia? Encounter Details Date Type Department Care Team (Late st Contact Info) Description 02/22/2023 Telephone [facility] Rheumatology [facility] 5th [place] [address] [place] [address] Courtney Tavera CMA Med Management (What should I do with my Orencia?) Social History Tobacco Use Types Packs/Day Years Used Date Smoking Tobacco: Never Smokeless Tobacco: Never Alcohol Use Standard Drinks/Week Comments Not Currently 0 (1 standard drink = 0.6 oz pur e alcohol) Comments Unknown Sex and Gender Information Value Date Recorded Sex Assigned at Not on file Legal Sex Female 1:14 AM OUTCOMES SPECIALIST Gender Identity Female 05/04/2020 3:33 PM CDT Sexual Orientation Not on file 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 Pt was prescribed Cefdinir as her PCP believes that pt is starting in with bronchitis. Pt's daughter called to see what to do with pt's Orencia. Pt's daughter advised that pt took her Orencia dose this morning. Pt's daughter was advised that pt should hold her Orencia dose next Saturday and may resume her Orencia once her symptoms have resolved and pt is feeling better. Pt is scheduled for f/u with our office on the morning of 02/27. documented in this encounter Plan of Treatment Not on file documented as of this encounter Visit Diagnoses Not on filedocumented in this encounter Care Teams Natural Science Manager Relationship Specialty Start Date End Date Liliana Baron MD PCP - General Internal Medicine 01/14/23 04/11/23 Ni Armas, RN Registered Nurse Pulmonary Disease 01/11/23 documented as of this encounter
--- OUTSIDE RECORDS SUMMARY | 2024-11-15 05:56 | XMS_ITS | Encounter Summary ---
Author Organization [facility] Address [address] [place] [address] Phone Care Team Providers Care Storage Facility Rental Clerk Name Role Phone Ni Armas RN Unavailable Lizette Liliana Prakash MD Primary Care Provider [phone] Encounter Details Date Type Department Care Team (Late st Contact Info) Description 01/14/2023 Orders Only [facility] Pulmonary [address] [facility] 8th [place] [address] [place] [address] Ni Armas, BILLY ILD (interstitial lung disease) (CMS/HCC) (HCC) (Primary Dx) Social History Tobacco Use Types Packs/Day Years Used Date Smoking Tobacco: Never Smokeless Tobacco: Never Alcohol Use Standard Drinks/Week Comments Not Currently 0 (1 standard drink = 0.6 oz pur e alcohol) Comments Unknown Sex and Gender Information Value Date Recorded Sex Assigned at Not on file Legal Sex Female 1:14 AM SMASH HAND Gender Identity Female 05/04/2020 3:33 PM CDT Sexual Orientation Not on file 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
--- OUTSIDE RECORDS SUMMARY | 2024-11-15 05:56 | XMS_ITS | Encounter Summary ---
Author Organization [facility] Address [address] [place] [address] Phone Care Team Providers Care Cylinder Devalver Name Role Phone Ni Armas RN Unavailable Lizette Liliana Prakash MD Primary Care Provider [phone] Reason for Visit * Reason Onset Date Comments Multidisciplinary Discussion 01/23/2023 Encounter Details Date Type Department Care Team (Latest Contact Info) Description 01/23/2023 Documentation [facility] Pulmonary [address] [facility] 8th [place] [address] [place] [address] Denita Correa MD [address] [facility] [address] [place] [address] Multidisciplinary Discussion Social History Tobacco Use Types Packs/Day Years Used Date Smoking Tobacco: Never Smokeless Tobacco: Never Alcohol Use Standard Drinks/Week Comments Not Currently 0 (1 standard drink = 0.6 oz pur e alcohol) Comments Unknown Sex and Gender Information Value Date Recorded Sex Assigned at Not on file Legal Sex Female 1:14 AM FINANCE PROFESSOR Gender Identity Female 05/04/2020 3:33 PM CDT Sexual Orientation Not on file 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 N/A If not UIP, pattern is NSIP Compared to prior CT: Stable Final MDD diagnosis: Collagen vascular disease associated If other: Is this same as initial MDD diagnosis?:No Follow up imaging needed:No Additional notes: D/w patient's daughter. Will d/w Dr. Bauman if she plans to leave on abatacept - if so will consider a course of prednisone. Patient's daughter does note patient is having increased joint stiffness in AM for last month. NCE PROFESSOR documented in this encounter Plan of Treatment Not on file documented as of this encounter Visit Diagnoses Not on filedocumented in this encounter Care Teams Cylinder Devalver Relationship Specialty Start Date End Date Liliana Baron MD PCP - General Internal Medicine 01/14/23 04/11/23 Ni Armas, BILLY Registered Nurse Pulmonary Disease 01/11/23 documented as of this encounter
--- OUTSIDE RECORDS SUMMARY | 2024-11-15 05:56 | XMS_ITS | Encounter Summary ---
Author Organization [facility] Address [address] [place] [address] Phone Care Team Providers Care Wire Taper Name Role Phone Ni Armas RN Unavailable Lizette Liliana Prakash MD Primary Care Provider [phone] Encounter Details Date Type Department Care Team (Late st Contact Info) Description 01/28/2023 Orders Only [facility] Pulmonary [address] 8th [place] [address] [place] [id number] Denita Correa MD [address] [place] [address] Social History Tobacco Use Types Packs/Day Years Used Date Smoking Tobacco: Never Smokeless Tobacco: Never Alcohol Use Standard Drinks/Week Comments Not Currently 0 (1 standard drink = 0.6 oz pur e alcohol) Comments Unknown Sex and Gender Information Value Date Recorded Sex Assigned at Not on file Legal Sex Female 1:14 AM LAWN MOWER OPERATOR Gender Identity Female 05/04/2020 3:33 PM CDT Sexual Orientation Not on file 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 Not on file documented as of this encounter Ordered Prescriptions Prescription Sig Dispense Quantity Refills Last Filled Start Date End Date sulfamethoxazole-tr imethoprim (Bactrim DS) 800-160 mg per tablet Take one po on Mon, Wed, Fri 12 tablet 5 01/28/2023 04/26/2023 documented in this encounter Plan of Treatment Not on file documented as of this encounter Visit Diagnoses Not on filedocumented in this encounter Care Teams Wire Taper Relationship Specialty Start Date End Date Liliana Baron MD PCP - General Internal Medicine 01/14/23 04/11/23 Ni Armas, RN Registered Nurse Pulmonary Disease 01/11/23 documented as of this encounter
--- OUTSIDE RECORDS SUMMARY | 2024-11-15 05:56 | XMS_ITS | Encounter Summary ---
Author Organization [facility] Address [address] [place] [address] Care Team Providers Care Bank Boss Name Role Phone Modesto Reyez DO Primary Care Provider [phone] Encounter Details Date Type Department Care Team (Late st Contact Info) Description 07/23/[address] [facility] Cardiology [address] [facility] [address] [facility] [address] [place] [address] Obed Sands MD [address] [facility] [address] [place] [address] Social History Tobacco Use Types Packs/Day Years Used Date Smoking Tobacco: Never Smokeless Tobacco: Never Alcohol Use Standard Drinks/Week Comments Not Currently 0 (1 standard drink = 0.6 oz pur e alcohol) Comments Unknown Sex and Gender Information Value Date Recorded Sex Assigned at Not on file Legal Sex Female 1:14 AM GIS ANALYST Gender Identity Female 05/04/2020 3:33 PM CDT Sexual Orientation Not on file 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 Not on file Not on file documented as of this encounter Plan of Treatment Not on file documented as of this encounter Procedures Procedure Name Priority Date/Time Associated Diagnosis Comments CARDIOLOGY DOCUMENT SCAN Routine 07/23/2022 documented in this encounter Results * Cardiology Document Scan (07/23/2022) Anatomical Region Laterality Modality Other Obed Sands MD CV CARDIAC SERVICES PROC EDURES Final Result documented in this encounter Visit Diagnoses Not on filedocumented in this encounter Additional Health Concerns Infection Onset Date Last Indicated Resolved Time COVID: Recovered Comment:Added based on recent COVID infection. 06/17/2022 06/18/2022 10/15/2022 3:[address] documented as of this encounter Care Teams Bank Boss Relationship Specialty Start Date End Date Modesto Reyez DO PCP - General Internal Medicine 01/03/20 01/13/23 documented as of this encounter
--- OUTSIDE RECORDS SUMMARY | 2024-11-15 05:56 | XMS_ITS | Encounter Summary ---
Author Organization [facility] Address [address] [place] [address] Phone Care Team Providers Care Truck Guard Name Role Phone Modesto Reyez DO Primary Care Provider [phone] Ni Armas RN Unavailable Lizette vailable Reason for Referral * MRI/CAT/PET Scan (Routine) - Closed Specialty Diagnoses / Procedures Referred By Janae swanson Referred To Contact Radiology Diagnoses ILD (interstitial lung disease) (CMS/HCC) (HCC) Procedures CT Chest High Resolution WO Contrast Denita Correa MD [address] [place] [address] Phone: tel: fax: External Order Referral ID Status Reason Start Date Expiration Date Visits Re quested Visits Authorized [id number] Closed 01/11/2023 02/10/2024 1 1 [employer]ICAL INTERNSHIP Encounter Details Date Type Department Care Team (Late st Contact Info) Description 01/11/2023 Orders Only [facility] Pulmonary [address] [facility] [address] 8th [place] [address] [place] [address] Denita Correa MD [address] [place] [address] ILD (interstitial lung disease) (CMS/HCC) (HCC) (Primary Dx) Social History Tobacco Use Types Packs/Day Years Used Date Smoking Tobacco: Never Smokeless Tobacco: Never Alcohol Use Standard Drinks/Week Comments Not Currently 0 (1 standard drink = 0.6 oz pur e alcohol) Comments Unknown Sex and Gender Information Value Date Recorded Sex Assigned at Not on file Legal Sex Female 1:14 AM TECHNICAL INTERNSHIP Gender Identity Female 05/04/2020 3:33 PM CDT Sexual Orientation Not on file 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 CT CHEST HIGH RESOLUTION WO CONTRAST REASON FOR STUDY: ?? ILD ?? Annual follow up Interstitial lung disease. ?? TECHNIQUE: CT scan of the chest performed without intravenous contrast using helical scanning technique. ??Inspiratory and expiratory images were acquired. ?Prone imaging was not performed. ?? Reconstructed coronal and sagittal MPR images reviewed. ??All images stored on PACS. Automated exposure control was used as a dose optimization technique for this examination. COMPARISON: ?? 11/07/2021. REFERENCE: Per ACR white paper recommendations, unless otherwise specified no follow-up imaging is recommended for incidental renal and adrenal lesions per consensus recommendations based on imaging criteria. Further lab evaluation could be pursued based on clinical findings. FINDINGS: LUNGS: ?? There are areas of reticulation and ground-glass with honeycombing again demonstrated. ??Honeycombing is greater within the upper lobes. ??There is a component of air trapping present, stable compared to prior examination. ??There is some minimal bronchial wall thickening. ??Overall, findings are stable compared to prior CT examination from October 2021. PLEURA: ?? No effusion. No pneumothorax. MEDIASTINUM/JOSUÉ: ?? Subcentimeter nodule within the inferior left thyroid lobe is stable. ??There are scattered mediastinal nodes, stable from prior examination. ??No new lymphadenopathy. ??The esophagus is unremarkable. HEART: ?? The heart is mildly enlarged. ??No pericardial effusion. CORONARY ARTERY CALCIFICATION: ??Minimal VASCULATURE: ?? The thoracic aorta is atherosclerotic, without aneurysm. ??Main pulmonary artery measures approximately 3.5 cm, mildly enlarged. AXILLA: ?? There is no axillary lymphadenopathy. CHEST WALL: ?? Mild collateral vasculature within the anterior chest wall is noted. HARDWARE/LINES/TUBES: ?? None. UPPER ABDOMEN: ?? The visualized upper abdomen reveals underlying pneumobilia. ?? Correlate with any recent procedures. ??There is prominence of the intra and extrahepatic biliary tree, similar in degree compared to the prior examination. ??Cholecystectomy changes are noted. ??There is a cyst at the upper pole of the right kidney measuring 3.3 cm, stable. ??There is some cortical scarring involving the visualized upper pole of the left kidney. ?? Diverticulosis of the visualized colon. MUSCULOSKELETAL: ?? There is thoracic spondylosis and degenerative disc disease. ??There is mild compression deformity at the superior endplate of T5, new from prior study, likely subacute. ??Mild compression deformity at the superior endplate of T10. ??Moderate compression deformity involving the T11 vertebral body and the inferior endplate of T12. ??These findings are all new compared to the previous examination in October 2021. OTHER: ?? No other significant finding. IMPRESSION: ?? 1. ?? Interstitial lung disease, with pattern most suggestive of nonspecific interstitial pneumonia. ??No significant interval change compared to prior examination in October 2021. 2. ?? Compression deformities within the thoracic spine, likely at least subacute if not chronic, but new compared to prior examination in October 2021. ??Dedicated thoracic spine imaging can be obtained as warranted clinically. THIS IS AN ELECTRONICALLY VERIFIED FINAL REPORT 01/18/2023 9:52 AM - Electronically signed by ??Saray Almonte M.D. TW: MARYANA D: ??01/18/2023 9:52 AM T: ??01/18/2023 9:52 AM Report ID: [id number] Reading Location: ??[id number] Procedure Note Saray Almonte MD - 01/18/2023 EXAM DESCRIPTION: CT CHEST HIGH RESOLUTION WO CONTRAST REASON FOR STUDY: ILD Annual follow up Interstitial lung disease. TECHNIQUE: CT scan of the chest performed without intravenous contrastusing helical scanning technique. Inspiratory and expiratory images wereacquired. Prone imaging was not performed. Reconstructed coronal and sagittalMPR images reviewed. All images stored on PACS. Automated exposure controlwas used as a dose optimization technique for this examination. COMPARISON: 11/07/2021. REFERENCE: Per ACR white paper recommendations, unless otherwise specifiedno follow-up imaging is recommended for incidental renal and adrenal lesionsper consensus recommendations based on imaging criteria. Further labevaluation could be pursued based on clinical findings. FINDINGS: LUNGS: There are areas of reticulation and ground-glass with honeycombing again demonstrated. Honeycombing is greater within the upper lobes. There is a component of air trapping present, stable compared toprior examination. There is some minimal bronchial wall thickening. Overall, findings are stable compared to prior CT examination from October 2021. PLEURA: No effusion. No pneumothorax. MEDIASTINUM/JOSUÉ: Subcentimeter nodule within the inferior left thyroidlobe is stable. There are scattered mediastinal nodes, stable from prior examination. No new lymphadenopathy. The esophagus is unremarkable. HEART: The heart is mildly enlarged. No pericardial effusion. CORONARY ARTERY CALCIFICATION: Minimal VASCULATURE: The thoracic aorta is atherosclerotic, without aneurysm.Main pulmonary artery measures approximately 3.5 cm, mildly enlarged. AXILLA: There is no axillary lymphadenopathy. CHEST WALL: Mild collateral vasculature within the anterior chest abiodun noted. HARDWARE/LINES/TUBES: None. UPPER ABDOMEN: The visualized upper abdomen reveals underlyingpneumobilia. Correlate with any recent procedures. There is prominence of the intraand extrahepatic biliary tree, similar in degree compared to the prior examination. Cholecystectomy changes are noted. There is a cyst at theupper pole of the right kidney measuring 3.3 cm, stable. There is some cortical scarring involving the visualized upper pole of the left kidney. Diverticulosis of the visualized colon. MUSCULOSKELETAL: There is thoracic spondylosis and degenerative disc disease. There is mild compression deformity at the superior endplate ofT5, new from prior study, likely subacute. Mild compression deformity at the superior endplate of T10. Moderate compression deformity involving theT11 vertebral body and the inferior endplate of T12. These findings are allnew compared to the previous examination in October 2021. OTHER: No other significant finding. IMPRESSION: 1. Interstitial lung disease, with pattern most suggestive ofnonspecific interstitial pneumonia. No significant interval change compared to prior examination in October 2021. 2. Compression deformities within the thoracic spine, likely at least subacute if not chronic, but new compared to prior examination in October 2021. Dedicated thoracic spine imaging can be obtained as warranted clinically. THIS IS AN ELECTRONICALLY VERIFIED FINAL REPORT 01/18/2023 9:52 AM - Electronically signed by Saray Almonte M.D. TW: TW Report ID: [id number] Reading Location: [place] [address] Denita Correa MD IMG CT PROCEDURES Final Resu lt documented in this encounter Visit Diagnoses Diagnosis ILD (interstitial lung disease) (CMS/HCC) (HCC)- Primary Postinflammatory pulmonary fibrosis ILD (interstitial lung disease) (CMS/HCC) (HCC) Postinflammatory pulmonary fibrosis documented in this encounter Care Teams Truck Guard Relationship Specialty Start Date End Date Modesto Reyez DO PCP - General Internal Medicine 01/03/20 01/13/23 Ni Armas, RN Registered Nurse Pulmonary Disease 01/11/23 documented as of this encounter
--- OUTSIDE RECORDS SUMMARY | 2024-11-15 05:56 | XMS_ITS | Encounter Summary ---
Author Organization [facility] Address [address] [place] [address] Phone Care Team Providers Care Housing Officer Name Role Phone Modesto Reyez DO Primary Care Provider [phone] Ni Armas RN Unavailable Lizette Liliana Prakash MD Primary Care Provider [phone] Reason for Visit * Reason Onset Date Comments xray results 12/19/2022 Encounter Details Date Type Department Care Team (Late st Contact Info) Description 12/19/2022 Telephone [facility] Rheumatology [address] [place] [address] 5th [place] [address] [place] [address] Tomeka Kwok RMA xray results Social History Tobacco Use Types Packs/Day Years Used Date Smoking Tobacco: Never Smokeless Tobacco: Never Alcohol Use Standard Drinks/Week Comments Not Currently 0 (1 standard drink = 0.6 oz pur e alcohol) Comments Unknown Sex and Gender Information Value Date Recorded Sex Assigned at Not on file Legal Sex Female 1:14 AM STUDIO PRODUCER Gender Identity Female 05/04/2020 3:33 PM CDT Sexual Orientation Not on file 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 Spoke with patient regarding recent MRI results. Chronic compression fracture of T5 and T 11. New compression fracture at T10 and T12. Needs Dexa Scan Requesting images. Pending referral for compression fracture. IO PRODUCER * Telephone Encounter - Tomeka Kwok RMA - 12/19/2022 3:29 PM CST MRI ordered and obtained. Needs bone density. Prednisone previously adjusted. LMOM requesting call back for preferred facility. IO PRODUCER * Telephone Encounter - Tomeka Kwok RMA - 12/19/2022 3:29 PM CST Late entry, discussed with patient: Please inform the patient that x-ray of the thoracic spine changes consistent with compression fracture at midthoracic spine and lower thoracic spine. This would explain the pain that she is been experiencing. Advise her to continue with tramadol every 8 hours as needed for pain. Await MRI of the thoracic spine. IO PRODUCER * Telephone Encounter - Tomeka Kwok RMA - 12/19/2022 3:28 PM CST ----- Message from Sandra Bauman MD sent at 11/28/2022 3:06 PM STUDIO PRODUCER ----- Please set her up for a bone density to evaluate for osteoporosis. Please also have her reduce her prednisone to 2.5 mg a day. IO PRODUCER documented in this encounter Plan of Treatment Not on file documented as of this encounter Visit Diagnoses Diagnosis Screening for osteoporosis- Primary Special screening for osteoporosis Other fracture of t5-T6 vertebra, initial encounter for closed fracture (HCC) documented in this encounter Care Teams Housing Officer Relationship Specialty Start Date End Date Modesto Reyez DO PCP - General Internal Medicine 01/03/20 01/13/23 Liliana Baron MD PCP - General Internal Medicine 01/14/23 04/11/23 Ni Armas, RN Registered Nurse Pulmonary Disease 01/11/23 documented as of this encounter
--- OUTSIDE RECORDS SUMMARY | 2024-11-15 05:56 | XMS_ITS | Encounter Summary ---
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 Then 2.5 mg daily. 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 T-SPOT.TB Panel A Spot Count 0 [facility] T-SPOT.TB Panel B Spot Count 0 [facility] T-SPOT.TB Negative Control Passed [facility] T-SPOT.TB Positive Control Passed [facility] Comment: Test Performed at: [email or web address] [address] [place] [address] ??[id number] ? CORAZON IBARRA MD,PHD Blood 02/27/2023 9:07 AM CDT 02/27/2023 10:47 AM CDT Sandra Bauman MD LAB MICROBIOLOGY - GENERAL ORDER KHOA Final Result Performing Organization Address City/[facility] Co de Phone Number [facility] [employer] [place] [address] * Erythrocyte sedimentation rate (02/27/2023 9:07 AM CDT) Pathologist [facility] Erythrocyte sedimentation rate 22 1 - 30 mm/hr [facility] Blood 02/27/2023 9:07 AM CDT 02/27/2023 10:24 AM CDT Sandra Bauman MD LAB BLOOD ORDERABLES Final Resul t Performing Organization Address City/[facility] Co de Phone Number 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
--- OUTSIDE RECORDS SUMMARY | 2024-11-15 05:56 | XMS_ITS | Encounter Summary ---
Author Organization [facility] Address [address] [place] [address] Care Team Providers Care Forder Operator Name Role Phone Modesto Reyez Primary Care Provider [phone] Reason for Visit * Reason Comments Follow-up 3 mo f/u. Discharged from [facility] on 07/30/22 Dx: SOB. Atrial Fibrillation Encounter Details Date Type Department Care Team (Late st Contact Info) Description 09/13/2022 9:15 AM CDT Office Visit [facility] Cardiology [address] [place] [address] Myles Reyes MD [id number] [place] [address] Chronic heart failure with preserved ejection fraction (CMS/HCC) (HCC) (Primary Dx); Chronic respiratory failure with hypoxia (CMS/HCC) (HCC); Longstanding persistent atrial fibrillation (CMS/HCC) (HCC); ILD (interstitial lung disease) (CMS/HCC) (HCC); History of pulmonary embolus (PE); STARR on CPAP; Rheumatoid arthritis, involving unspecified site, unspecified whether rheumatoid factor present (HCC); Chronic anticoagulation; Morbid obesity with BMI of 45.0-49.9, adult (CMS/HCC) (HCC) Social History Tobacco Use Types Packs/Day Years Used Date Smoking Tobacco: Never Smokeless Tobacco: Never Tobacco Cessation:Counseling Given: Not Answered Alcohol Use Standard Drinks/Week Comments Not Currently 0 (1 standard drink = 0.6 oz pur e alcohol) Comments Unknown Sex and Gender Information Value Date Recorded Sex Assigned at Not on file Legal Sex 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 Gender Identity Female 05/04/2020 3:33 PM CDT Sexual Orientation Not on file 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 file Not on file Not on file documented as of this encounter Last Filed Vital Signs Vital Sign Reading Time Taken Comments Blood Pressure 126/70 09/13/2022 9:21 AM CDT Pulse 69 09/13/2022 9:21 AM CDT Temperature - - Respiratory Rate - - Oxygen Saturation 97% 09/13/2022 9:21 AM CDT Inhaled Oxygen Concentration - - Weight 113.4 kg (250 lb) 09/13/2022 9:21 AM CDT per pt Height 157.5 cm (5' 2 ) 09/13/2022 9:21 AM CDT Body Mass Index 45.73 09/13/2022 9:21 AM CDT documented in this encounter Progress Notes * Myles Reyes MD - 09/13/2022 9:15 AM CDT [facility] DATE OF VISIT: 09/13/2022 CHIEF COMPLAINT Chief Complaint Patient presents with Follow-up 3 mo f/u. Discharged from [facility] on 07/30/22 Dx: SOB. Atrial Fibrillation ASSESSMENT Diagnoses and all orders for this visit: Chronic heart failure with preserved ejection fraction (CMS/HCC) (HCC) (Primary) Chronic respiratory failure with hypoxia (CMS/HCC) (HCC) Longstanding persistent atrial fibrillation (CMS/HCC) (HCC) ILD (interstitial lung disease) (CMS/HCC) (HCC) History of pulmonary embolus (PE) STARR on CPAP Rheumatoid arthritis, involving unspecified site, unspecified whether rheumatoid factor present (HCC) Chronic anticoagulation Morbid obesity with BMI of 45.0-49.9, adult (CMS/HCC) ([facility]) PLAN/RECOMMENDATIONS 1. AFib historically paroxysmal persistent of late heart rate controlled. Continue current medical therapy and systemic anticoagulation for stroke risk reduction. CHADS2 Vasc score 3. -Continue Eliquis 5 mg b.i.d.. Monitor for bleeding. If falls, head injury or bleeding go to ER immediately. Monitor renal function at least on yearly basis. -continue Toprol XL 50 mg daily. Monitor for bradycardia, dizziness, symptomatic hypotension. Ambulate with caution. 2. BP controlled goal <140/90mmHg. Monitor BP on routine basis. Call with readings. Continue consistent cardiovascular exercise, weight loss, medication compliance, and low-sodium diet. -Toprol XL 125 mg daily 3. Compensated, chronic HFpEF NYHA class III sxs confounded by chronic hypoxic respiratory failure.CHF counseling performed. Follow daily weight, less than 2 g daily sodium intake, medication compliance. Call w/ wt gain >3lb in 24 hrs or worsening edema and/or FALCON. -Very lengthy discussion again about clinical risk factors, contribute to edema, heart failure including but not limited to morbid obesity, STARR, RA, dietary lifestyle and inconsistency with recommendations. -Continue Lasix to 60mg daily and KCl to 20MEQ daily. Patient and daughter verbalized understandingand agreed with plan of care. The appreciated my explanations and time spent with them. -She has not been compliant with sodium and diet restrictions as previously counseled. Stressed theimportance of consistent compliance with recommendations as her edema is multifactorial but exacerbated by lack of activity, sedentary lifestyle, excess sodium intake, STARR, obesity. -overall, she understands the benefit of previous recommendations and provided she follows them shecan clearly see that this keeps her stable. She is been much more consistent of late despite her acute critical illness related to COVID pneumonia. 4. Compliance with medications, recommendations follow-up once again extensively reviewed with patient and her daughter. 5. Follow-up with pulmonology and Rheumatology as scheduled. Compliance with CPAP. She will continue on hydroxychloroquine, methotrexate and prednisone as directed 6. Lipids personally reviewed 11/02/21 LDL 48, well controlled goal LDL less than 100. Continue statin therapy and lifestyle modification. Pravastatin 80mg qhs. 7. Lifestyle modification counseling performed. Weight loss, exercise, reduction in caloric intake. Personally reviewed records from [facility] 05/2022 where she was managed for acute on chronic heart failure secondary to dietary indiscretion, COVID/bacterial pneumonia with mild decompensation, antibiotics for bacterial pneumonia, initial treatment for COVID-19 with discontinuation of remdesivir secondary to bradycardia, ILD on O2, persistent AFib Over 50% of this visit counseling CHF, HTN, lipids, medications, lifestyle modification. Follow up in the office in 3 month or sooner as needed. Thank you for allowing me the privilege of participating in the care this very pleasant patient. Please do not hesitate to contact me with any additional questions or concerns. HPI Ayanna Cash is a 72 y.o. female with a PMHx of rheumatoid arthritis, hypertension, hyperlipidemia, morbid obesity, STARR, diastolic heart failure, atrial fibrillation, and interstitial lung disease. She was on amiodarone and digoxin in the past , she had also had a successful cardioversion in the past. [place] in September 2019 showed EF 60%. She was previously followed by Dr. Parker. Her gas appliance repairer is Dr. Norman. Her die cast supervisor is Dr. Kobe Gerard. She presented to [facility] on 01/01/2020 with complaint of [...] CPAP machine nightly, but sometimes remove sit alf through the night. PCP follows her INRs [...] trying to lose some weight, following a [id number] Na restriction. Now using a foot pedal [...] 09/29/21 CAT visit-On 09/21/21 she went to [facility] ER for complaint of worsening [...] Norman has referred her to pulmonology at [facility] and that appointment is next month. 12-lead ECG performed in the office today was independently interpreted by me and showed sinus rhythm, normal axis and normal intervals, rate 88 beats per minute 11/02/21 Says not feeling any better at all after admission to [facility] with influenza B hurts to doeverything takes a lot out of her, no energy or appetite, SOB same as before. Attributes a lot to being off her pain meds including Hydroxychloroquine and Methotrexate for a while while in hospital. On CPAP. Not much edema though. Pain is mostly in shoulders and hands. Uses heating pad and Tylenol.Saw PCP recently. Sees Pulm at [facility] tomorrow. Using 2L O2 at rest 4L O2 with activity. She notes her O2 drops to 85% on 4L still. Rheum adjusting meds on prednisone for 1 week without noted improvement thus far. Has PT coming into home. 04/17/22 Admitted to [facility] with ILD and CHF admits she hasn't [...] CAT visit - she was hospitalized at [facility] 05/25-05/26 for pulmonary edema, tested positive for COVID, treated for rib fractures due to a fall 2 days prior. Then hospitalized at [facility] 05/27-06/07for treatment of pneumonia (bacterial verses COVID) / COPD exacerbation, diastolic heart failure exacerbation. She became bradycardic on telemetry (heart rate 30-40 with pause up to 3 seconds) so remdesivir was stopped and metoprolol was stopped. IV furosemide caused MIKE so she was discharged without furosemide but it has since been restarted in care home rehab (currently she is at [facility] in [place]). When she is doing physical therapy her [...] at all and is working out well. MEDICAL HISTORY Past Medical History: Diagnosis Date Atrial fibrillation ([facility]) ([facility]) Cataracts, bilateral CHF (congestive heart failure) ([facility]) ([facility]) Depression 12/2021 Diastolic dysfunction Diverticulitis H/O section [...] 125 mg/mL auto-injector acetaminophen 325 mg capsule calcium carbonate-vit D3-min 600 mg calcium- 400 unit tablet cholecalciferol (VITAMIN D-3) 2000 unit tablet cholestyramine (QUESTRAN) [address] (CYMBALTA) 20 mg capsule Eliquis 5 mg tablet furosemide (LASIX ORAL) hydroxychloroquine (PLAQUENIL) 200 mg tablet levothyroxine (SYNTHROID) 112 mcg tablet metoprolol XL (TOPROL-XL) 25 mg extended release tablet potassium chloride ER (KLOR-CON) 20 mEq CR tablet pravastatin (PRAVACHOL) 80 mg tablet predniSONE (DELTASONE) 2.5 mg tablet traMADoL (ULTRAM) 50 mg tablet trimethoprim (TRIMPEX) 100 mg tablet ciprofloxacin (CIPRO) 500 mg tablet lidocaine (LIDODERM) 5 % ALLERGIES No Known Allergies REVIEW OF SYSTEMS Review of Systems Constitutional: Positive for malaise/fatigue and weight gain. Negative for decreased appetite, diaphoresis, fever, night sweats and weight loss. HENT: Negative for hearing loss and nosebleeds. Eyes: Negative for blurred vision and pain. Cardiovascular: Positive for leg swelling. Negative for chest pain, claudication, dyspnea on exertion, irregular heartbeat, near-syncope, orthopnea, palpitations and syncope. [...] and are negative. PHYSICAL EXAM Vitals BP 126/70 (BP Location: Right arm, Patient Position: Sitting) Pulse 69 Ht 157.5 cm (5' 2 ) Wt 113.4 kg (250 lb) SpO2 97% BMI 45.73 kg/m?? Weight: 113.4 kg (250 lb) (per pt) Height: 157.5 cm (5' 2 ) Body mass index is 45.73 kg/m??. Physical Exam Vitals reviewed. Constitutional: General: She is not in acute distress. Appearance: She is well-developed. She is obese. She is not diaphoretic. Comments: O2 via nasal canula HENT: Head: Normocephalic and atraumatic. Right Ear: External ear normal. Left Ear: External ear normal. Mouth/Throat: Dentition: Normal dentition. Eyes: General: Lids are normal. No scleral icterus. Conjunctiva/sclera: Conjunctivae normal. Neck: Thyroid: No thyromegaly. Vascular: Normal carotid pulses. No carotid bruit, hepatojugular reflux or JVD. Trachea: No tracheal deviation. Cardiovascular: Rate and Rhythm: Normal rate and regular rhythm. Pulses: Normal pulses and intact distal pulses. 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 No . 07/11/22 Interpretation Summary AMBULATORY [employer]ORER [employer]RSE REPORT Patient Name: Ayanna Cash Date of [...] rate. Longest RR intervals appearedto have occurred emergency medicine overnight hours presumably while asleep. Sinus rhythm was not appreciated. Conclusions: Persistent atrial fibrillation with intermittent atrial flutter with variable AV block controlled average heart rate with frequent episodes of rapid ventricular response which majority of patient's symptoms were associated with tachycardia. Sinus rhythm was not appreciated No pathologic or prolonged pauses or high-grade AV blocks identified. Personally reviewed EKG, electronic medical record, [facility] hospital records, and bloodwork/lipids. Geetha Reyes MD, [facility] This note is dictated and transcribed using Net[employer] Direct Software. Blast Furnace Keeper variancesmay occur. Despite proofreading, typographical errors may occur. documented in this encounter Plan of Treatment Not on file documented as of this encounter Visit Diagnoses Diagnosis Chronic heart failure with preserved ejection fraction (CMS/HCC) (HCC)- Primary Chronic respiratory failure with hypoxia (CMS/HCC) (HCC) Longstanding persistent atrial fibrillation (CMS/HCC) (HCC) ILD (interstitial lung disease) (CMS/HCC) (HCC) Postinflammatory pulmonary fibrosis History of pulmonary embolus (PE) STARR on CPAP Rheumatoid arthritis, involving unspecified site, unspecified whether rheumatoid factor present (HCC) Chronic anticoagulation Encounter for long-term (current) use of anticoagulants Morbid obesity with BMI of 45.0-49.9, adult ([facility]) documented in this encounter Discontinued Medications Medication Sig Discontinue Reason Start Date End Da te ciprofloxacin (CIPRO) 500 mg tablet Take 500 mg by mouth 2 (two) times a day Therapy completed 08/20/2022 09/13/2022 lidocaine (LIDODERM) 5 % Place 1 patch on the skin daily Remove & discard patch within 12 hours or as directed by . Therapy completed 07/03/2022 09/13/2022 ciprofloxacin (CIPRO) 500 mg tablet Take 500 mg by mouth 2 (two) times a day Therapy completed 08/20/2022 09/13/2022 lidocaine (LIDODERM) 5 % Place 1 patch on the skin daily Remove & discard patch within 12 hours or as directed by . Therapy completed 07/03/2022 09/13/2022 documented as of this encounter Additional Health Concerns Infection Onset Date Last Indicated Resolved Time COVID: Recovered Comment:Added based on recent COVID infection. 06/17/2022 06/18/2022 10/15/2022 3:[address] documented as of this encounter Care Teams Forder Operator Relationship Specialty Start Date End Date Modesto Reyez DO PCP - General Internal Medicine 01/03/20 01/13/23 documented as of this encounter
--- OUTSIDE RECORDS SUMMARY | 2024-11-15 05:56 | XMS_ITS | Encounter Summary ---
Author Organization [facility] Healthcare Address [address] [place] [address] Care Team Providers Care Maintenance Shop Manager Name Role Phone Ni Armas RN Unavailable Lizette Liliana Prakash MD Primary Care Provider [phone] Reason for Referral * Procedure (Routine) - Closed Specialty Diagnoses / Procedures Referred By Contac t Referred To Contact Pulmonology Diagnoses ILD (interstitial lung disease) ([facility] ([facility]) Procedures Pulmonary Function Test -[facility]; Full PFT in PFT Lab Pulmonary Function Test -[facility]- CAM-8D; Spirometry Denita Correa MD [address] [address] Phone: tel: fax: Referral ID Status Reason Start Date Expiration Date Visits Re quested Visits Authorized [id number] Closed 01/29/2023 02/28/2024 1 1 Reason for Visit * Procedure (Routine) - Closed Specialty Diagnoses / Procedures Referred By Contac t Referred To Contact Pulmonology Diagnoses ILD (interstitial lung disease) ([facility]) ([facility]) Procedures Pulmonary Function Test -[facility]; Full PFT in PFT Lab Pulmonary Function Test -[facility]- CAM-[id number]; Spirometry Denita Correa MD [address] [address] Phone: tel: fax: Referral ID Status Reason Start Date Expiration Date Visits Re quested Visits Authorized [id number] Closed 01/29/2023 02/28/2024 1 1 Encounter Details Date Type Department Care Team (Latest Contact Info) Description 02/26/2023 9:00 AM CDT - 02/26/2023 11:59 PM CDT Hospital Encounter [facility] Respiratory Therapy [address] [place] [id number] ILD (interstitial lung disease) ([facility]) ([facility]) Discharge Disposition: Discharge to home or self care Social History Tobacco Use Types Packs/Day Years Used Date Smoking Tobacco: Never Smokeless Tobacco: Never Alcohol Use Standard Drinks/Week Comments Not Currently 0 (1 standard drink = 0.6 oz pur e alcohol) Comments Unknown Sex and Gender Information Value Date Recorded Sex Assigned at Not on file 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 Gender Identity Female 05/04/2020 3:33 PM CDT Sexual Orientation Not on file 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 Not on file Not [...] Diagnosis Comments PULMONARY FUNCTION TEST (PFT) Routine 02/26/2023 9:27 AM CDT ILD (interstitial lung disease) (CMS/HCC) (HCC) documented in this encounter Results * (ABNORMAL) Pulmonary Function Test - (02/26/2023 9:27 AM CDT) FVC PRE 1.36(L) 1.80 - 3.26 L 02/26/2023 9:27 AM T [facility] FEV1 PRE 0.99(L) 1.38 - 2.46 L 02/26/2023 9:27 AM [facility] [id number] 72.98 63.84 - 89.90 % 02/26/2023 9:27 AM [facility] PGI26-82% PRE 0.66(L) 0.72 - 2.97 L/s 02/26/2023 9:27 AM [facility] PEF PRE 3.25(L) 3.85 - 6.81 L/s 02/26/2023 9:27 AM [facility] FET 100% PRE 7.48 sec 02/26/2023 9:27 AM [facility] FIVC PRE 1.11(L) 1.59 - 2.97 L 02/26/2023 9:27 AM [facility] FIF50% PRE 2.28 L/s 02/26/2023 9:27 AM [facility] Anatomical Region Laterality Modality PFT 02/26/2023 9:06 AM CDT Impressions 02/27/2023 11:39 AM CDT 1. There is nonspecific ventilatory limitation which is suggestive of restriction but would need lung volumes to confirm. ??No definitive obstruction Electronically signed by Gabrielle Tariq MD Narrative 02/27/2023 11:39 AM CDT INTERPRETATION Only spirometry was performed SPIROMETRY: ? FEV1/FVC ratio is normal at 73% ? ? FEV1 is decreased at 0.99 L/51% ? ? Forced vital capacity is decreased at 1.36 L/54% FLOW VOLUME LOOPS: Small slightly narrowed flow volume loop us Denita Correa MD PFT ORDERABLES Final Result documented in this encounter Visit Diagnoses Diagnosis ILD (interstitial lung disease) (CMS/HCC) (HCC) Postinflammatory pulmonary fibrosis documented in this encounter Care Teams Maintenance Shop Manager Relationship Specialty Start Date End Date Liliana Baron MD PCP - General Internal Medicine 01/14/23 04/11/23 Ni Armas, RN Registered Nurse Pulmonary Disease 01/11/23 documented as of this encounter
--- OUTSIDE RECORDS SUMMARY | 2024-11-15 05:56 | XMS_ITS | Encounter Summary ---
Author Organization [facility] Address [address] [place] [address] Phone Care Team Providers Care Ultimate Hoops Scoreboard Operator Name Role Phone Modesto Reyez Primary Care Provider [phone] Reason for Referral * MRI/CAT/PET Scan (Routine) - Closed Specialty Diagnoses / Procedures Referred By Contac t Referred To Contact Diagnoses Thoracic spine pain Procedures MRI Thoracic Spine WO Contrast Sandra Bauman MD [address] [address] Phone: tel: fax: External Order Referral ID Status Reason Start Date Expiration Date Visits Re quested Visits Authorized [id number] Closed 11/28/2022 12/28/2023 1 1 T TECH * Diagnostic Imaging (Routine) - Closed Specialty Diagnoses / Procedures Referred By Contac t Referred To Contact Diagnoses Thoracic spine pain Procedures X-ray thoracic spine 2 views Sandra Bauman MD [address] [facility] [address] [address] Phone: tel: fax: [address] [address] Referral ID Status Reason Start Date Expiration Date Visits Re quested Visits Authorized [id number] Closed 11/28/2022 12/28/2023 1 1 T TECH Encounter Details Date Type Department Care Team (Late st Contact Info) Description 11/28/2022 8:00 AM PLANT TECH Office Visit [facility] Rheumatology [address] [facility] 5th [place] [address] [place] [address] Sandra Bauman MD [address] [facility] [address] [place] [address] Thoracic spine pain (Primary Dx) Social History Tobacco Use Types Packs/Day Years Used Date Smoking Tobacco: Never Smokeless Tobacco: Never Tobacco Cessation:Counseling Given: Not Answered Alcohol Use Standard Drinks/Week Comments Not Currently 0 (1 standard drink = 0.6 oz pur e alcohol) Comments Unknown Sex and Gender Information Value Date Recorded Sex Assigned at Not on file Legal Sex Female 1:14 AM PLANT TECH Gender Identity Female 05/04/2020 3:33 PM CDT Sexual Orientation Not on file 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 Not on file Not on file Not on file documented as of this encounter Last Filed Vital Signs Vital Sign Reading Time Taken Comments Blood Pressure 141/83 11/28/2022 7:57 AM PLANT TECH Pulse 77 11/28/2022 7:57 AM PLANT TECH Temperature 36.7 ??C (98.1 ??F) 11/28/2022 7:57 AM CS T Respiratory Rate - - Oxygen Saturation - - Inhaled Oxygen Concentration - - Weight 108.9 kg (240 lb) 11/28/2022 7:57 AM PLANT TECH Height 157.5 cm (5' 2 ) 11/28/2022 7:57 AM PLANT TECH Body Mass Index 43.9 11/28/2022 7:57 AM PLANT TECH documented in this encounter Patient Instructions * Patient Instructions* Tomeka Kwok RMA - 11/28/2022 8:00 AM PLANT TECH MRI T[facility]Spine at [facility] T TECH documented in this encounter Progress Notes * Sandra Bauman MD - 11/28/2022 8:00 AM CST Images from the original note were not included. RHEUMATOLOGY PROGRESS NOTE DIAGNOSES: Seropositive rheumatoid arthritis Interstitial lung disease DVT and PE Atrial fibrillation Congestive heart failure Sleep apnea Hypothyroidism Chief Complaint: Follow up SUBJECTIVE: Last seen in clinic in Jul 2022. She has had delays in initiation of therapy with abatacept due toinsurance issues along with interruptions in therapy due to infections and hospitalizations. She fell out of her bed in late April and was noted to have a rib fracture. She had reported pain in her ribs at the time of last visit an x-ray of the ribs did not show any other fractures. Now returns for follow-up visit. States that overall she felt better with use of abatacept. Continues to deal pain on either side of the spine at midthoracic level, symptoms exacerbated be bending. Has had some swelling of the right hand. Also on prednisone 5 mg/day. Review of Systems: All systems negative except as above Current Outpatient Medications Medication Sig Dispense Refill abatacept (Orencia ClickJect) 125 mg/mL auto-injector acetaminophen 325 mg capsule Take by mouth calcium carbonate-vit D3-min 600 mg calcium- 400 unit tablet Take by mouth 2 (two) times a day cholecalciferol (VITAMIN D-3) 2000 unit tablet Take 1,000 Units by mouth daily cholestyramine (QUESTRAN) [address] (CYMBALTA) 20 mg capsule Take 20 mg by mouth daily Eliquis 5 mg tablet Take 5 mg by mouth 2 (two) times a day furosemide (LASIX) 20 mg tablet Take 3 tablets (60 mg total) by mouth daily 270 tablet 3 hydroxychloroquine (PLAQUENIL) 200 mg tablet Take 200 mg by mouth 2 (two) times a day levothyroxine (SYNTHROID) 112 mcg tablet Take 112 mcg by mouth daily metoprolol XL (TOPROL-XL) 25 mg extended release tablet Take 2 tablets (50 mg total) by mouth daily60 tablet 11 potassium chloride ER (KLOR-CON) 20 mEq CR tablet pravastatin (PRAVACHOL) 80 mg tablet Take 80 mg by mouth daily predniSONE (DELTASONE) 5 mg tablet Take 5 mg by mouth traMADoL (ULTRAM) 50 mg tablet Take 1 tablet (50 mg total) by mouth every 8 (eight) hours as neededfor pain 21 tablet 0 No current facility-administered medications for this visit. Objective: BP 141/83 Pulse 77 Temp 36.7 ??C (98.1 ??F) Ht 157.5 cm (5' 2 ) Wt 108.9 kg (240 lb) BMI 43.90 kg/m?? RAPID 3 SCORE RAPID 3 SCORE: 19.5 General: alert, cooperative, no distress Skin: Rash - Nodules: - Lungs: clear to auscultation bilaterally Heart: regular rate and rhythm, S1, S2 normal Abdomen: soft without mass, non-tender, with normal bowel sounds Joint Review Right Left Shoulder normal normal Elbow normal normal Wrist normal normal MCP normal normal PIP normal normal DIP normal normal Knee normal normal Ankle normal normal Foot normal normal Normal Hip ROM: Limited exam as patient in wheelchair SI Joints: Normal Spine: Normal alignment, marked tenderness to palpation to palpation over midthoracic spine Swollen Joints: 0 Trigger/ tender Points; Tight Muscle Groups: Tenderness over posterior lateral chest wall in midthoracic spine bilaterally WBC Date Value Ref Range Status 06/02/2022 10.2 (H) 3.8 - 9.9 K/cumm Final 06/02/2022 11.3 (H) 3.8 - 9.9 K/cumm Final 05/31/2022 10.1 (H) 3.8 - 9.9 K/cumm Final White Blood Count Date Value Ref Range Status 08/24/2022 16.0 (H) 3.6 - 11.2 K/uL Final Hgb Date Value Ref Range Status 06/02/2022 10.9 (L) 11.9 - 15.5 g/dL Final 06/02/2022 10.9 (L) 11.9 - 15.5 g/dL Final 05/31/2022 10.9 (L) 11.9 - 15.5 g/dL Final Hemoglobin Date Value Ref Range Status 08/24/2022 10.3 (L) 11.9 - 15.5 g/dL Final Platelet Count Date Value Ref Range Status 08/24/2022 238 140 - 440 K/uL Final Comment: Repeated and Verified 03/09/2022 320 140 - 440 K/uL Final MCV Date Value Ref Range Status 08/24/2022 96.2 80.0 - 97.6 fL Final 06/02/2022 97.2 (H) 81.3 - 96.4 fL Final 06/02/2022 96.9 (H) 81.3 - 96.4 fL Final 05/31/2022 97.2 (H) 81.3 - 96.4 fL Final Creatinine Date Value Ref Range Status 08/24/2022 1.35 (H) 0.60 - 1.10 mg/dL Final 06/06/2022 1.44 (H) 0.60 - 1.10 mg/dL Final 06/05/2022 1.69 (H) 0.60 - 1.10 mg/dL Final 06/04/2022 1.53 (H) 0.60 - 1.10 mg/dL Final BUN Date Value Ref Range Status 08/24/2022 36 (H) 7 - 23 mg/dL [...] AST (SGOT) Date Value Ref Range Status 08/24/2022 15 11 - 47 IU/L Final ALT Date Value Ref Range Status 05/29/2022 21 7 - 45 Units/L Final 05/28/2022 23 7 - 45 Units/L Final 05/27/2022 See Comment 7 - 45 Units/L Final Comment: Credited; Hemolyzed Specimen ALT (SGPT) Date Value Ref Range Status 08/24/2022 11 6 - 53 IU/L Final Alk phos Date Value Ref Range Status 05/29/2022 100 40 - 130 Units/L Final 05/28/2022 112 40 - 130 Units/L Final 05/27/2022 See Comment 40 - 130 Units/L Final Comment: Credited; Hemolyzed Specimen Alk Phos, Total Date Value Ref Range Status 08/24/2022 56 35 - 129 IU/L Final Bilirubin, total Date Value Ref Range Status 05/29/2022 0.3 0.1 - 1.2 mg/dL Final 05/28/2022 0.4 0.1 - 1.2 mg/dL Final 05/27/2022 0.4 0.1 - 1.2 mg/dL Final Total Bilirubin Date Value Ref Range Status 08/24/2022 0.23 0.20 - 1.40 mg/dL Final ANCILLARY STUDIES: ASSESSMENT & PLAN: Seropositive Rheumatoid Arthritis: --Diagnosed with rheumatoid arthritis and lung disease in 2018, placed on hydroxychloroquine and methotrexate with progressive decline in respiratory status, particularly worsened after influenza in September 2021 -- methotrexate discontinued in November 2021 --Currently on hydroxychloroquine, abatacept injections weekly, and prednisone 5 mg, doing relatively well --continue to taper off the prednisone; will reduce prednisone to 2 point day --serial eye exam while on hydroxychloroquine therapy 2. Interstitial Lung Disease: --likely related to RA --being followed by Pulmonary --treatment plan for rheumatoid arthritis was discussed multidisciplinary CTD- ILD meeting 3. Other: --XR thoracic spine MRI thoracic spine any compression fracture The patient is to return to clinic in 3 months. Orders Placed This Encounter Procedures X-ray thoracic spine 2 views Standing Status: Future Number of Occurrences: 1 Standing Expiration Date: 11/28/2023 Order Specific Question: Where should this order be performed? Answer: [facility] [152] MRI Thoracic Spine WO Contrast Standing Status: Future Standing Expiration Date: 11/28/2023 Order Specific Question: Is patient claustrophobic? Answer: No Order Specific Question: Is patient able to lie flat for at least one hour? Answer: Yes Order Specific Question: Where should this order be performed? Answer: External Order [171] Be advised that voice recognition software has been used on this chart and inadvertent errors may occur. These may not represent a true interpretation of the dictation given. T TECH documented in this encounter Plan of Treatment Scheduled Orders Name Type Priority Associated Diagnoses Orde r Schedule MRI Thoracic Spine WO Contrast Imaging Schedule Routine, Read Routine (OP Routine) Thoracic spine pain Expected: 12/05/2022 (Approximate), Expires: 11/28/2023 documented as of this encounter Results * X-ray thoracic spine 2 views (11/28/2022 9:17 AM PLANT TECH) Anatomical Region Laterality Modality Spine N/A Computed Radiogr aphy 11/28/2022 9:27 AM PLANT TECH Impressions 11/28/2022 9:27 AM PLANT TECH New mild compression deformity of T5 or T6 and mild to moderate compression deformities of T12 and L1. Electronically signed by: Abdifatah Conway M.D. Narrative 11/28/2022 9:27 AM PLANT TECH EXAMINATION: Thoracic spine 2 views HISTORY: Back pain FINDINGS: 2 views of the thoracic spine were performed with comparison made to 01/03/2022 chest radiograph. ??Interstitial opacities are redemonstrated within the lungs. ??There is atherosclerosis of the aorta. ??Right upper quadrant surgical clips are noted. ??Bones are osteopenic. ??There is a new moderate compression deformity of T12. ??There is a likely mild compression deformity of L1. ??There is a mild compression deformity T5 or T6. There is multilevel mild to moderate thoracic spine degenerative disc disease. Procedure Note Abdifatah Conway MD PhD - 11/28/2022 EXAMINATION: Thoracic spine 2 views HISTORY: Back pain FINDINGS: 2 views of the thoracic spine were performed with comparison made to 01/03/2022 chest radiograph. Interstitial opacities are redemonstrated within the lungs. There is atherosclerosis of the aorta. Right upper quadrant surgical clips are noted. Bones are osteopenic. There is a new moderate compression deformity of T12. There is a likely mild compression deformity of L1. There is a mild compression deformity T5 or T6. There is multilevel mild to moderate thoracic spine degenerative disc disease. IMPRESSION: New mild compression deformity of T5 or T6 and mild to moderate compression deformities of T12 and L1. Electronically signed by: Abdifatah Conway M.D. Sandra Bauman MD IMG XR PROCEDURES Final Result documented in this encounter Visit Diagnoses Diagnosis Thoracic spine pain- Primary Pain in thoracic spine Thoracic spine pain Pain in thoracic spine documented in this encounter Discontinued Medications Medication Sig Discontinue Reason Start Date End Da te trimethoprim (TRIMPEX) 100 mg tabletIndications:Preven tion of Bacterial Urinary Tract Infection Take 1 tablet (100 mg total) by mouth nightly at bedtime. Therapy completed 07/03/2022 11/28/2022 documented as of this encounter Historical Medications * This list may reflect changes made after this encounter. predniSONE (DELTASONE) 5 mg tablet Take 5 mg by mouth 12/03/2022 added in this encounter Care Teams Ultimate Hoops Scoreboard Operator Relationship Specialty Start Date End Date Modesto Reyez DO PCP - General Internal Medicine 01/03/20 01/13/23 documented as of this encounter
--- OUTSIDE RECORDS SUMMARY | 2024-11-15 05:56 | XMS_ITS | Encounter Summary ---
Author Organization [facility] Address [address] [place] [address] Phone Care Team Providers Care Dispatcher Ship Pilot Name Role Phone Ni Armas RN Unavailable Lizette Liliana Prakash MD Primary Care Provider [phone] Encounter Details Date Type Department Care Team (Late st Contact Info) Description 02/27/2023 8:20 AM CDT Office Visit [facility] Rheumatology [facility] 5th [place] [address] [place] [address] Sandra Bauman MD [address] [facility] [address] [place] [address] 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); Osteopenia of multiple sites Social History Tobacco Use Types Packs/Day Years Used Date Smoking Tobacco: Never Smokeless Tobacco: Never Alcohol Use Standard Drinks/Week Comments Not Currently 0 (1 standard drink = 0.6 oz pur e alcohol) Comments Unknown Sex and Gender Information Value Date Recorded Sex Assigned at Not on file 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 Gender Identity Female 05/04/2020 3:33 PM CDT Sexual Orientation Not on file 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 Not on file Not on file documented as of this encounter Last Filed Vital Signs Vital Sign Reading Time Taken Comments Blood Pressure 135/82 02/27/2023 8:13 AM CDT Pulse 88 02/27/2023 8:13 AM CDT Temperature 37.2 ??C (98.9 ??F) 02/27/2023 8:13 AM CD T Respiratory Rate - - Oxygen Saturation - - Inhaled Oxygen Concentration - - Weight 105.2 kg (232 lb) 02/27/2023 8:13 AM CDT Height 157.5 cm (5' 2 ) 02/27/2023 8:13 AM CDT Body Mass Index 42.43 02/27/2023 8:13 AM CDT documented in this encounter Progress Notes * Sandra Bauman MD - 02/27/2023 8:20 AM CDT Images from the original note were not included. RHEUMATOLOGY PROGRESS NOTE DIAGNOSES: Seropositive rheumatoid arthritis Interstitial lung disease DVT and PE Atrial fibrillation Congestive heart failure Sleep apnea Hypothyroidism Chief Complaint: Follow up SUBJECTIVE: Last seen in clinic in Nov 2022. Is dealing with a URI, on antibiotics since last Saturday. No fever.Complains of sinus congestion. Currently on hydroxychloroquine, abatacept, and prednisone 2.5 mg/day. Recently given a prednisone taper starting at 40 mg/day x week, with taper by 10 mg every week on 02/03/[address] chest from 01/18/23 showed upper lobe involvement with reticulation, traction bronchiectasis, and GGO. Takes Tramadol tid. for hip pain and lower back pain. Most bothered by right hip pain. XR R hip from 02/2022 shows severe right hip OA. Patient believes that joint pain in other joints including hands, wrists, and shoulders have resolved with abatacept. AM stiffness lasts for a couple of hours. Review of Systems: All systems negative except [...] tablet pravastatin (PRAVACHOL) 80 mg tablet Take 1 tablet (80 mg total) by mouth daily predniSONE (DELTASONE) 10 mg tablet Take 4 tablets (40 mg) by mouth daily for 7 days, THEN 3 tablets (30 mg) daily for 7 days, THEN 2 tablets (20 mg) daily for 7 days, THEN 1 tablet (10 mg) daily for7 days, THEN 0.5 tablets (5 mg) daily for 7 days. Then 2.5 mg daily. 74 tablet 0 predniSONE (DELTASONE) 2.5 mg tablet Take 1 tablet (2.5 mg) by mouth daily 30 tablet 2 sulfamethoxazole-trimethoprim (Bactrim DS) 800-160 mg per tablet Take one po on Mon, Sat, Sat 12 tablet 5 traMADoL (ULTRAM) 50 mg tablet Take 1 tablet (50 mg total) by mouth every 8 (eight) hours as neededfor pain 21 tablet 0 cefdinir (OMNICEF) 300 mg capsule TAKE 1 CAPSULE BY MOUTH EVERY 12 HOURS FOR 10 DAYS No current facility-administered medications for this visit. Objective: BP 135/82 Pulse 88 Temp 37.2 ??C (98.9 ??F) Ht 157.5 cm (5' 2 ) Wt 105.2 kg (232 lb) BMI 42.43 kg/m?? General: alert, cooperative, no distress Skin: Rash [...] on hydroxychloroquine, abatacept injections weekly, and prednisone 2.5 mg, doing relatively well; reported pain in the hips is likely related to DJD of the hip (not interested in repeating hip XR today) --continue the current prednisone taper (by pulmonary) --serial eye exam while on hydroxychloroquine therapy 2. Interstitial Lung Disease: --likely related to RA --being followed by Pulmonary --treatment plan for rheumatoid arthritis was discussed multidisciplinary CTD- ILD meeting 3. Osteopenia: --Most recent DEXA scan shows T score of -2.4 at the hip and -2.3 at the spine --Recent traumatic fracture of the spine and past atraumatic compression fractures --recent initiation of alendronate by PCP (01/2023) --also on calcium and vitamin-D The patient is to return to clinic in 3 months. Orders Placed This Encounter Procedures Comprehensive metabolic panel Standing Status: Future Number of Occurrences: 1 Standing Expiration Date: 02/28/2024 CBC with auto differential Standing Status: Future Number of Occurrences: 1 Standing Expiration Date: 02/28/2024 Vitamin D 25 hydroxy Standing Status: Future Number of Occurrences: 1 Standing Expiration Date: 02/28/2024 Erythrocyte sedimentation rate Standing Status: Future Number of Occurrences: 1 Standing Expiration Date: 02/28/2024 T-SPOT.TB Standing Status: Future Number of Occurrences: 1 Standing Expiration Date: 02/28/2024 CRP (acute phase) Standing Status: Future Number of Occurrences: 1 Standing Expiration Date: 02/28/2024 Be advised that voice recognition software has been used on this chart and inadvertent errors may occur. These may not represent a true interpretation of the dictation given. documented in this encounter Plan of Treatment Not on file documented as of this encounter Results * (ABNORMAL) CRP (acute phase) (02/27/2023 9:07 AM CDT) Pathologist [facility] CRP 33.7(H) <=10.0 mg/L [facility] Blood 02/27/2023 9:07 AM CDT 02/27/2023 10:24 AM CDT us Sandra Bauman MD LAB BLOOD ORDERABLES Final Resul t [facility] Department [place] [address] * T-SPOT.TB (02/27/2023 9:07 AM CDT) T-SPOT.TB Negative SeeBelow [facility] Comment: Normal Value: Negative A negative test [...] T-SPOT.TB Panel A Spot Count [address] [facility] T-SPOT.TB Panel B Spot Count [address] [facility] T-SPOT.TB Negative Control Passed [facility] T-SPOT.TB Positive Control Passed [facility] Comment: Test Performed at: [facility] [place], [place] ??[phone] ? CORAZON IBARRA MD,PHD Blood 02/27/2023 9:07 AM CDT 02/27/2023 10:47 AM CDT Sandra Bauman MD LAB MICROBIOLOGY - GENERAL ORDER KHOA Final Result Performing Organization Address City/[facility]/ZIP Co de Phone Number [facility] Department [place] [address] * Erythrocyte sedimentation rate (02/27/2023 9:07 AM CDT) Pathologist [facility] Erythrocyte sedimentation rate 22 1 - 30 mm/hr [facility] Blood 02/27/2023 9:07 AM CDT 02/27/2023 10:24 AM CDT Sandra Bauman MD LAB BLOOD ORDERABLES Final Resul t Performing Organization Address City/State/[facility] Co de Phone Number [facility] Department [place] [address] * Vitamin D 25 hydroxy (02/27/2023 9:07 AM CDT) Vitamin D 43.4 20.0 - 100.0 ng/mL [facility] Comment: VITAMIN D DEFICIENCY = LESS THAN or EQUAL TO 20 ng/mL VITAMIN D INSUFFICIENCY = 21 - 29 ng/mL VITAMIN D SUFFICIENT = 30-100 ng/mL Blood 02/27/2023 9:07 AM CDT 02/27/2023 10:25 AM CDT us Sandra Bauman MD LAB BLOOD ORDERABLES Final Resul t [facility] * (ABNORMAL) CBC with auto differential (02/27/2023 9:07 AM CDT) White Blood Count 6.8 3.6 - 11.2 K/uL [facility] Comment:Repeated and Verifie d RBC 3.61(L) 3.63 - 4.92 M/uL [facility] Hemoglobin 11.0(L) 11.9 - 15.5 g/dL [facility] Hematocrit 34.3(L) 36.1 - 44.3 % [facility] MCV 94.9 80.0 - 97.6 fL [facility] MCH 30.6 26.7 - 33.7 pg [facility] MCHC 32.2(L) 32.7 - 35.5 g/dL [facility] RBC Dist Width 15.2 12.3 - 17.0 % [facility] Platelet Count 182 140 - 440 K/uL [facility] Comment:Repeated and Verifie d MPV 8.5 6.8 - 10.4 fL [facility] Neutrophils % 75.9(H) 38.7 - 74.5 % [facility] Lymphocyte % 8.1(L) 20.0 - 54.3 % [facility] Monocytes % 10.9 4.3 - 13.5 % [facility] Eosinophils % 4.7 0.0 - 6.0 % [facility] Basophil % 0.4 0.0 - 3.0 % [facility] Absolute Neutrophil 5.2 1.8 - 6.6 K/uL [facility] Comment:Repeated and Verifie d Absolute Lymphocyte 0.6(L) 0.8 - 3.3 K/uL [facility] Absolute Monocyte 0.7 0.2 - 1.2 K/uL [facility] Absolute Eosinophil 0.3 0.0 - 0.5 K/uL [facility] Absolute Basophil 0.0 0.0 - 0.2 K/uL [facility] Nucleated RBC % 0.1 0.0 - 0.4 /100 WBC [facility] Blood 02/27/2023 9:07 AM CDT 02/27/2023 10:25 AM CDT us Sandra Bauman MD LAB BLOOD ORDERABLES Final Resul t [facility] * (ABNORMAL) Comprehensive metabolic panel (02/27/2023 9:07 AM CDT) Total Protein 6.7 6.1 - 8.4 g/dL [facility] Albumin 4.0 3.5 - 5.2 g/dL [facility] Calcium 10.4(H) 8.6 - 10.3 mg/dL [facility] BUN 29(H) 7 - 23 mg/dL [facility] Total Bilirubin 0.21 0.20 - 1.40 mg/dL [facility] Alk Phos, Total 40 35 - 129 IU/L [facility] AST (SGOT) 17 11 - 47 IU/L [facility] ALT (SGPT) 9 6 - 53 IU/L [facility] Comment:Repeated and Verifie d Creatinine 1.37(H) 0.60 - 1.10 mg/dL [facility] Sodium 142 135 - 145 mmol/L [facility] Potassium 4.0 3.3 - 5.1 mmol/L [facility] Chloride 103 95 - 107 mmol/L [facility] CO2 Content 27 21 - 29 mmol/L [facility] Glucose 86 64 - 99 mg/dL [facility] Comment: NONFASTING GLUCOSE RANGE = 64-199 mg/dL FASTING GLUCOSE 64 - 99 = NORMAL FASTING GLUCOSE 100 - 125 = IMPAIRED FASTING GLUCOSE FASTING GLUCOSE >=126 = PROVISIONAL DIAGNOSIS OF DIABETES eGFR 40.5(L) >60.0 mL/min/1.7 3 m2 [facility] Blood 02/27/2023 9:07 AM CDT 02/27/2023 10:25 AM CDT us Sandra Bauman MD LAB BLOOD ORDERABLES Final Resul t [facility] documented in this encounter Visit Diagnoses Diagnosis 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 cefdinir (OMNICEF) 300 mg capsule TAKE 1 CAPSULE BY MOUTH EVERY 12 HOURS FOR 10 DAYS 02/22/2023 03/08/2023 added in this encounter Care Teams Dispatcher Ship Pilot Relationship Specialty Start Date End Date Liliana Baron MD PCP - General Internal Medicine 01/14/23 04/11/23 Ni Armas, RN Registered Nurse Pulmonary Disease 01/11/23 documented as of this encounter
--- OUTSIDE RECORDS SUMMARY | 2024-11-15 05:56 | XMS_ITS | Encounter Summary ---
Author Organization [facility] Healthcare Address [address] [place] [address] Care Team Providers Care Butcher Meat Name Role Phone Aissatou Modesto PADILLA Primary Care Provider [phone] Reason for Referral * Diagnostic Imaging (Routine) - Closed Specialty Diagnoses / Procedures Referred By Contac t Referred To Contact Diagnoses Rib pain Procedures XR Ribs Bilateral 3 Views Sandra Bauman MD [address] [place] [address] [place] [address] Phone: tel: fax: [address] [address] Referral ID Status Reason Start Date Expiration Date Visits Re quested Visits Authorized [id number] Closed 08/24/2022 09/23/2023 1 1 Reason for Visit * Diagnostic Imaging (Routine) - Closed Specialty Diagnoses / Procedures Referred By Contac t Referred To Contact Diagnoses Rib pain Procedures XR Ribs Bilateral 3 Views Sandra Bauman MD [address] [place] [address] [address] Phone: tel: fax: [address] [address] Referral ID Status Reason Start Date Expiration Date Visits Re quested Visits Authorized [id number] Closed 08/24/2022 09/23/2023 1 1 Encounter Details Date Type Department Care Team (Latest Contact Info) Description 08/24/2022 9:53 AM CDT - 08/24/2022 11:59 PM CDT Hospital Encounter [facility] [address] [place] [address] Sandra Bauman MD [address] [facility] [address] [place] [address] Rib pain Discharge Disposition: Discharge to home or self care Social History Tobacco Use Types Packs/Day Years Used Date Smoking Tobacco: Never Smokeless Tobacco: Never Alcohol Use Standard Drinks/Week Comments Not Currently 0 (1 standard drink = 0.6 oz pur e alcohol) Comments Unknown Sex and Gender Information Value Date Recorded Sex Assigned at Not on file Legal Sex Female 1:14 AM TRANSFORMER TESTER Gender Identity Female 05/04/2020 3:33 PM CDT Sexual Orientation Not on file 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 Not on file Not on file documented as of this encounter Medications at Time of Discharge acetaminophen 325 mg capsule Take by mouth calcium carbonate-vit D3-min 600 mg calcium- 400 unit tablet Take by mouth 2 (two) times a day cholecalciferol (VITAMIN D-3) 2000 unit tablet Take 0.5 tablets (1,000 Units total) by mouth daily DULoxetine DR (CYMBALTA) [...] cholestyramine (QUESTRAN) 4 gram packet 06/09/2020 3 ciprofloxacin (CIPRO) 500 mg tablet Take 500 mg by mouth 2 (two) times a day 08/20/2022 2 furosemide (LASIX ORAL) Take 60 mg by mouth daily 60 mg 2 hydroxychloroquine (PLAQUENIL) 200 mg tablet Take 1 tablet (200 mg total) by mouth 2 (two) times a day 11/26/2019 4 lidocaine (LIDODERM) 5 % Place 1 patch on the skin daily Remove & discard patch within 12 hours or as directed by MD. 30 patch 07/03/2022 2 metoprolol XL (TOPROL-XL) 25 mg extended release tabletIndications: Longstanding persistent atrial fibrillation (CMS/HCC) (HCC) Take 2 tablets (50 mg total) by mouth daily 60 tablet 11 07/04/2022 3 predniSONE (DELTASONE) 2.5 mg tablet Take 5 tablets (12.5 mg) by mouth daily for 14 days, THEN 4 tablets (10 mg) daily for 14 days, THEN 3 tablets (7.5 mg) daily for 14 days, THEN 2 tablets (5 mg) daily. 228 tablet 08/24/2022 3 trimethoprim (TRIMPEX) 100 mg tabletIndications: Prevention of Bacterial Urinary Tract Infection Take 1 tablet (100 mg total) by mouth nightly at bedtime. 30 tablet 07/03/2022 3 documented as of this encounter Discharge Disposition Disposition Code Departure Means Destination Discharge to home or self care documented in this encounter Plan of Treatment Not on file documented as of this encounter Procedures Procedure Name Priority Date/Time Associated Diagnosis Comments XR RIBS BILATERAL 3 VIEWS Schedule Routine, Read Routine (OP Routine) 08/24/2022 10:20 AM CDT Rib pain documented in this encounter Results * XR Ribs Bilateral 3 Views (08/24/2022 10:20 AM CDT) Anatomical Region Laterality Modality Rib, Chest Bilateral Computed Radiogr aphy 08/24/2022 11:4 9 AM CDT Impressions 08/24/2022 12:05 PM CDT 1. No displaced fractures of the partially visualized bilateral ribs. Dictated by: Earline Hamilton MD, MPH The radiology attending physician has personally reviewed this study, and had reviewed and/or edited this written report and agrees with it. Electronically signed by: Fady Ely DO Narrative 08/24/2022 12:05 PM CDT EXAMINATION: ??XR RIBS BILATERAL 3 VIEWS HISTORY: Bilateral rib pain. History of left-sided rib fractures back in April. FINDINGS: Images of the bilateral ribs was provided for interpretation, with comparison to radiographs (05/27/2022). No displaced rib fractures are seen. The bilateral lower ribes are not well seen due to superimposed soft tissue. There is mild left acromioclavicular and glenohumeral joint osteoarthritis. No pneumothorax. Small lung volumes with diffuse mixed reticular and ground-glass opacities, consistent with reported history of interstitial lung disease. Atherosclerotic calcifications in the aorta. Cholecystectomy clips. Procedure Note Fady Ely DO - 08/24/2022 EXAMINATION: XR RIBS BILATERAL 3 VIEWS HISTORY: Bilateral rib pain. History of left-sided rib fractures back in April. FINDINGS: Images of the bilateral ribs was provided for interpretation, with comparison to radiographs (05/27/2022). No displaced rib fractures are seen. The bilateral lower ribes are not well seen due to superimposed soft tissue. There is mild left acromioclavicular and glenohumeral joint osteoarthritis. No pneumothorax. Small lung volumes with diffuse mixed reticular and ground-glass opacities, consistent with reported history of interstitial lung disease. Atherosclerotic calcifications in the aorta. Cholecystectomy clips. IMPRESSION: 1. No displaced fractures of the partially visualized bilateral ribs. Dictated by: Earline Hamilton MD, MPH The radiology attending physician has personally reviewed this study, and had reviewed and/or edited this written report and agrees with it. Electronically signed by: Fady Ely DO Sandra Bauman MD IMG XR PROCEDURES Final Result documented in this encounter Visit Diagnoses Diagnosis Rib pain Unspecified chest pain documented in this encounter Additional Health Concerns Infection Onset Date Last Indicated Resolved Time COVID: Recovered Comment:Added based on recent COVID infection. 06/17/2022 06/18/2022 10/15/2022 3:[address] documented as of this encounter Care Teams Butcher Meat Relationship Specialty Start Date End Date Modesto Reyez DO PCP - General Internal Medicine 01/03/20 01/13/23 documented as of this encounter
--- OUTSIDE RECORDS SUMMARY | 2024-11-15 05:56 | XMS_ITS | Encounter Summary ---
Author Organization [facility] Address [address] [place] [address] Phone Care Team Providers Care Pearl Glue Operator Name Role Phone Ni Armas RN Unavailable Lizette Liliana Prakash MD Primary Care Provider [phone] Encounter Details Date Type Department Care Team (Late st Contact Info) Description 01/14/2023 Telephone [facility] Pulmonary [address] [facility] 8[address] [place] [address] [place] [address] Ni Armas, BILLY Social History Tobacco Use Types Packs/Day Years Used Date Smoking Tobacco: Never Smokeless Tobacco: Never Alcohol Use Standard Drinks/Week Comments Not Currently 0 (1 standard drink = 0.6 oz pur e alcohol) Comments Unknown Sex and Gender Information Value Date Recorded Sex Assigned at Not on file Legal Sex Female 1:14 AM LANDFILL GAS COLLECTION SYSTEM OPERATOR Gender Identity Female 05/04/2020 3:33 PM CDT Sexual Orientation Not on file 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 Pts daughter stated they have the CT scheduled forFriday and was wanting to scheduled their follow up. I told them I would be in contact once we havea time and date available. Pts daughter verbalized understanding and had no further questions or concerns at this time. ----- Message from KISHA Haddad sent at 01/14/2023 11:06 AM LANDFILL GAS COLLECTION SYSTEM OPERATOR ----- Pt daughter is calling wanting to speak with you regarding the CT scan that needs to be scheduled. Please call patient daughter at: [phone]. Thanks FILL GAS COLLECTION SYSTEM OPERATOR FILL GAS COLLECTION SYSTEM OPERATOR documented in this encounter Plan of Treatment Not on file documented as of this encounter Visit Diagnoses Not on filedocumented in this encounter Care Teams Pearl Glue Operator Relationship Specialty Start Date End Date Liliana Baron MD PCP - General Internal Medicine 01/14/23 04/11/23 Ni Armas, RN Registered Nurse Pulmonary Disease 01/11/23 documented as of this encounter
--- OUTSIDE RECORDS SUMMARY | 2024-11-15 05:56 | XMS_ITS | Encounter Summary ---
Author Organization [facility] Address [address] [place] [address] Care Team Providers Care Patient Financial Coordinator Name Role Phone Ni Armas RN Unavailable Lizette Liliana Prakash MD Primary Care Provider [phone] Reason for Visit * Reason Comments Atrial Fibrillation * Cardiology (Routine) - Closed Specialty Diagnoses / Procedures Referred By Contac t Referred To Contact Diagnoses Longstanding persistent atrial fibrillation (CMS/HCC) (HCC) Procedures ECG 12 lead Myles Reyes MD Phone: tel: fax: [facility] Referral ID Status Reason Start Date Expiration Date Visits Re quested Visits Authorized [id number] Closed 02/05/2023 03/06/2024 1 1 Encounter Details Date Type Department Care Team (Latest Contact Info) Description 02/06/2023 8:30 AM CDT Procedure visit [facility] Medical [facility] Cardiology [address] [place] [address] Longstanding persistent atrial fibrillation (CMS/HCC) (HCC) Social History Tobacco Use Types Packs/Day Years Used Date Smoking Tobacco: Never Smokeless Tobacco: Never Alcohol Use Standard Drinks/Week Comments Not Currently 0 (1 standard drink = 0.6 oz pur e alcohol) Comments Unknown Sex and Gender Information Value Date Recorded Sex Assigned at Not on file Legal Sex Female 1:14 AM BORING MACHINE OPERATOR PRODUCTION Gender Identity Female 05/04/2020 3:33 PM CDT Sexual Orientation Not on file 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 Last night HR was 170 going up 7 steps to go to bed. This morning her HR was 132 even after meds. EKG today shows HR being 98. Pt is at rest as she is in a wheelchair. Sat in waiting room for 20 minutes before EKG. documented in this encounter Plan of Treatment Not on file documented as of this encounter Procedures Procedure Name Priority Date/Time Associated Diagnosis Comments ECG 12-LEAD Routine 02/06/2023 Longstanding persistent atrial fibrillation (CMS/HCC) (HCC) documented in this encounter Results * ECG 12 lead (02/06/2023) Myles Reyes MD ECG ORDERABLES Edited R esult - Final documented in this encounter Visit Diagnoses Diagnosis Longstanding persistent atrial fibrillation (CMS/HCC) (HCC) documented in this encounter Care Teams Patient Financial Coordinator Relationship Specialty Start Date End Date Liliana Baron MD PCP - General Internal Medicine 01/14/23 04/11/23 Ni Armas, RN Registered Nurse Pulmonary Disease 01/11/23 documented as of this encounter
--- OUTSIDE RECORDS SUMMARY | 2024-11-15 05:56 | XMS_ITS | Encounter Summary ---
Author Organization [facility] Address [address] [place] [address] Care Team Providers Care Ice Cream Server Name Role Phone Ni Armas RN Unavailable Lizette Liliana Prakash MD Primary Care Provider [phone] Reason for Referral * Cardiology (Routine) - Closed Specialty Diagnoses / Procedures Referred By Contac t Referred To Contact Diagnoses Longstanding persistent atrial fibrillation (CMS/HCC) (HCC) Procedures ECG 12 lead Myles Reyes MD Phone: tel: fax: [facility] Referral ID Status Reason Start Date Expiration Date Visits Re quested Visits Authorized [id number] Closed 02/05/2023 03/06/2024 1 1 Encounter Details Date Type Department Care Team (Late st Contact Info) Description 02/05/2023 Telephone [facility] Cardiology [address] [place] [address] Myles Reyes MD [facility] [facility] [address] [place] [address] Social History Tobacco Use Types Packs/Day Years Used Date Smoking Tobacco: Never Smokeless Tobacco: Never Alcohol Use Standard Drinks/Week Comments Not Currently 0 (1 standard drink = 0.6 oz pur e alcohol) Comments Unknown Sex and Gender Information Value Date Recorded Sex Assigned at Not on file Legal Sex Female 1:14 AM RECREATION CENTER DIRECTOR Gender Identity Female 05/04/2020 3:33 PM CDT Sexual Orientation Not on file 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 AD requests 48 hour monitor. Daughter requests next week for monitor placement. * Addendum Note - Tito Lewis RN - 02/06/2023 12:30 PM CDTAddended by: TITO LEWIS on: 02/06/2023 12:30 PM Modules accepted: Orders * Telephone Encounter - Yesenia Villafana RN - 02/05/2023 3:46 PM CDT Spoke with pt daughter. Pt HR better at 53 now bt she would still like to get ekg tomorrow * Telephone Encounter - Leonie Cronin - 02/05/2023 3:39 PM CDT Pt daughter Mae states pt just called her and told her that her HR is now at 53. Requesting call back. Contact: * Telephone Encounter - Yesenia Villafana RN - 02/05/2023 3:31 PM CDT Spoke with pt daughter. Pts HR is elevated. BP has not been checked. Pt has not complained of anything else such as SOB or lightheadedness or dizziness. Pt scheduled for EKG tomorrow am. * Telephone Encounter - Nasreen Nunez - 02/05/2023 2:55 PM CDT Mae calling in to report that pt experiences increased heart rate when moving from the restroom to her chair. States that her pulse is 132 while walking and then sitting is 126. While going up stairs pt pulse increased to 170 and that was only half of her steps on Saturday. Requesting call back to discuss. Contact [phone] documented in this encounter Plan of Treatment Not on file documented as of this encounter Results * ECG 12 lead (02/06/2023) Myles Reyes MD ECG ORDERABLES Edited R esult - Final documented in this encounter Visit Diagnoses Diagnosis Longstanding persistent atrial fibrillation (CMS/HCC) (HCC)- Primary documented in this encounter Care Teams Ice Cream Server Relationship Specialty Start Date End Date Liliana Baron MD PCP - General Internal Medicine 01/14/23 04/11/23 Ni Armas, BILLY Registered Nurse Pulmonary Disease 01/11/23 documented as of this encounter
--- OUTSIDE RECORDS SUMMARY | 2024-11-15 05:56 | XMS_ITS | Encounter Summary ---
Author Organization [facility] Address [address] [place] [address] Care Team Providers Care Dump Attendant Name Role Phone Modesto Reyez Primary Care Provider [phone] Encounter Details Date Type Department Care Team (Late st Contact Info) Description 08/07/2022 Telephone [facility] Cardiology [address] [place] [address] Myles Reyes MD [address] [facility] [address] [place] [address] Social History Tobacco Use Types Packs/Day Years Used Date Smoking Tobacco: Never Smokeless Tobacco: Never Alcohol Use Standard Drinks/Week Comments Not Currently 0 (1 standard drink = 0.6 oz pur e alcohol) Comments Unknown Sex and Gender Information Value Date Recorded Sex Assigned at Not on file Legal Sex Female 1:14 AM ARMAMENT REPAIRER Gender Identity Female 05/04/2020 3:33 PM CDT Sexual Orientation Not on file 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 No one instructed pt to do so. Advised daughter to resume normal dose of lasix. Pt has not been doing daily weights, discussed the importance of daily weights, low sodium diet and elevating legs. Daughter verbalizes understanding. She reports pt has not been eating well since coming home from the hospital. Discussed options to help pt get proper and healthy nutrition. Daughter appreciative of return call and information. BMP order faxed to as requested. * Telephone Encounter - Myles Reyes MD - 08/08/2022 6:52 PM CDT Why is she not taking her Lasix? Was she told to hold it? Makes sense why she is having more edema.What about her daily weights? She needs to take her LAsix, limit sodium elevate her legs check BMP in 1 week * Telephone Encounter - Noa Gaines RN - 08/08/2022 12:26 PM CDT Spoke with pt and daughter, swelling to lower extremities is the same. Pt has not taken lasix todayor yesterday. Will await for AD response, pt and daughter aware. * Telephone Encounter - Leonie Cronin - 08/08/2022 10:24 AM CDT Pt daughter Mae states pt has not taken Lasix today either so that is going to be two days in a row. Requesting call back to discuss resuming/dosage for lasix. Contact: * Telephone Encounter - Noa Gaines RN - 08/07/2022 2:11 PM CDT BMP results received and scanned in to [facility]. Will forward to AD. Please advise. * Telephone Encounter - Charli Nye - 08/07/2022 1:49 PM CDT Pt daughter Mae called states pt had labs drawn yesterday after visit with ,states BUN=4.1,creatinine=1.7(both increased)white count=11,000 decreased(was 14,000 in the hospital), states pt did not take her Lasix today,states she has her kidney stent removed today as well. States pt will not take her Lasix dosage this evening because it will keep her up all night,requesting AD recommendation on resuming/dosage for Lasix.Please advise.Thank you Contact:[phone] States office should have faxed these lab results today documented in this encounter Plan of Treatment Scheduled Orders Name Type Priority Associated Diagnoses Orde r Schedule Basic metabolic panel Lab Routine Chronic heart failure with preserved ejection fraction (CMS/HCC) (HCC) Expected: 08/13/2022, Expires: 08/09/2023 documented as of this encounter Visit Diagnoses Diagnosis Chronic heart failure with preserved ejection fraction (CMS/HCC) (HCC)- Primary documented in this encounter Additional Health Concerns Infection Onset Date Last Indicated Resolved Time COVID: Recovered Comment:Added based on recent COVID infection. 06/17/2022 06/18/2022 10/15/2022 3:[address] documented as of this encounter Care Teams Dump Attendant Relationship Specialty Start Date End Date Modesto Reyez DO PCP - General Internal Medicine 01/03/20 01/13/23 documented as of this encounter
--- OUTSIDE RECORDS SUMMARY | 2024-11-15 05:56 | XMS_ITS | Encounter Summary ---
Author Organization [facility] Address [address] [place] [address] Phone Care Team Providers Care Records And Information Manager Name Role Phone Ni Armas RN Unavailable Lizette Liliana Prakash MD Primary Care Provider [phone] Encounter Details Date Type Department Care Team (Late st Contact Info) Description 01/28/2023 Telephone 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 Called pt to notify them. No answer. LMOR ----- Message from Denita Correa MD sent at 01/28/2023 2:25 PM CONDUIT WORKER ----- 40 mg a day for a week, then 30 mg a day for a week, then 20 mg a day for a week, then 10 mg a day for a week, then 5 mg a day for a week, then back to usual 2.5 mg a day. Send in Bactrim prophylaxis too. UIT WORKER UIT WORKER documented in this encounter Plan of Treatment Not on file documented as of this encounter Visit Diagnoses Not on filedocumented in this encounter Care Teams Records And Information Manager Relationship Specialty Start Date End Date Liliana Baron MD PCP - General Internal Medicine 01/14/23 04/11/23 Ni Armas, RN Registered Nurse Pulmonary Disease 01/11/23 documented as of this encounter
--- OUTSIDE RECORDS SUMMARY | 2024-11-15 05:56 | XMS_ITS | Encounter Summary ---
Author Organization [facility] Address [address] [place] [address] Phone Care Team Providers Care Teacher Of The Sight Impaired Name Role Phone Ni Armas RN Unavailable Lizette Liliana Prakash MD Primary Care Provider [phone] Encounter Details Date Type Department Care Team (Late st Contact Info) Description 01/25/2023 Telephone [facility] Pulmonary [address] [facility] [address] [place] [address] [place] [address] Denita Correa MD [address] [facility] [address] [place] [address] Social History Tobacco Use Types Packs/Day Years Used Date Smoking Tobacco: Never Smokeless Tobacco: Never Alcohol Use Standard Drinks/Week Comments Not Currently 0 (1 standard drink = 0.6 oz pur e alcohol) Comments Unknown Sex and Gender Information Value Date Recorded Sex Assigned at Not on file Legal Sex Female 1:14 AM SCALE MECHANIC Gender Identity Female 05/04/2020 3:33 PM CDT Sexual Orientation Not on file 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 Will discuss prednisone boost/taper. 01/28/23 11:20 am : Spoke to patient's daughter about pred - 40 mg a day for a week, then 30 mg a dayfor a week, then 20 mg a day for a week, then 10 mg a day for a week, then 5 mg a day for a week, then back to 2.5 mg a day. Would repeat tano at end of taper. She notes her mother has been reluctant to go on higher doses of pred. We discussed pros and cons. She will speak with mother and let us know. E MECHANIC E MECHANIC documented in this encounter Plan of Treatment Not on file documented as of this encounter Visit Diagnoses Not on filedocumented in this encounter Care Teams Teacher Of The Sight Impaired Relationship Specialty Start Date End Date Liliana Baron MD PCP - General Internal Medicine 01/14/23 04/11/23 Ni Armas, RN Registered Nurse Pulmonary Disease 01/11/23 documented as of this encounter
--- OUTSIDE RECORDS SUMMARY | 2024-11-15 05:56 | XMS_ITS | Encounter Summary ---
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); Osteopenia of multiple sites Social History Tobacco Use Types Packs/Day Years Used Date Smoking Tobacco: Never Smokeless Tobacco: Never Alcohol Use Standard Drinks/Week Comments Not Currently 0 (1 standard drink = 0.6 oz pur e alcohol) Comments Unknown Sex and Gender Information Value Date Recorded Sex Assigned at Not on file Legal Sex Female 1:14 AM PHYSICAL THERAPY NURSE Gender Identity Female 05/04/2020 3:33 PM CDT Sexual Orientation Not on file 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 Not on file documented as of this encounter Plan of Treatment Not on file documented as of this encounter Procedures Procedure Name Priority Date/Time Associated Diagnosis Comments CBC WITH AUTO DIFFERENTIAL Routine 02/27/2023 9:07 AM CDT 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) VITAMIN D 25 HYDROXY Routine 02/27/2023 9:07 AM CDT 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 * Vitamin D 25 hydroxy (02/27/2023 9:07 AM CDT) Vitamin D 43.4 20.0 - 100.0 ng/mL [facility] Comment: VITAMIN D DEFICIENCY = LESS THAN or EQUAL TO 20 ng/mL VITAMIN D INSUFFICIENCY = 21 - 29 ng/mL VITAMIN D SUFFICIENT = 30-100 ng/mL Blood 02/27/2023 9:07 AM CDT 02/27/2023 10:25 AM CDT Sandra Bauman MD LAB BLOOD ORDERABLES Final Resul t Performing Organization Address City/[facility] Co de Phone Number 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
--- OUTSIDE RECORDS SUMMARY | 2024-11-15 05:56 | XMS_ITS | Encounter Summary ---
Author Organization [facility] Address [address] [place] [address] Phone Care Team Providers Care Autopsy Assistant Name Role Phone Ni Armas RN Unavailable Lizette Liliana Prakash MD Primary Care Provider [phone] Encounter Details Date Type Department Care Team (Late st Contact Info) Description 01/31/2023 Telephone [facility] Pulmonary [address] 8th [place] [address] [place] [address] Ni Armas, BILLY Social History Tobacco Use Types Packs/Day Years Used Date Smoking Tobacco: Never Smokeless Tobacco: Never Alcohol Use Standard Drinks/Week Comments Not Currently 0 (1 standard drink = 0.6 oz pur e alcohol) Comments Unknown Sex and Gender Information Value Date Recorded Sex Assigned at Not on file Legal Sex Female 1:14 AM MILITARY TECHNICIAN Gender Identity Female 05/04/2020 3:33 PM CDT Sexual Orientation Not on file 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 PFT set up at [facility] for 02/26 @ 0900. Pt s daughter verbalized understanding and had no further questions or concerns at this time. Mae can be reached at: [phone]. Thanks TARY TECHNICIAN TARY TECHNICIAN documented in this encounter Plan of Treatment Not on file documented as of this encounter Visit Diagnoses Not on filedocumented in this encounter Care Teams Autopsy Assistant Relationship Specialty Start Date End Date Liliana Baron MD PCP - General Internal Medicine 01/14/23 04/11/23 Ni Armas, RN Registered Nurse Pulmonary Disease 01/11/23 documented as of this encounter
--- OUTSIDE RECORDS SUMMARY | 2024-11-15 05:56 | XMS_ITS | Encounter Summary ---
Author Organization [facility] Address [address] [place] [address] Phone Care Team Providers Care Account Installer Name Role Phone Modesto Reyez Primary Care Provider [phone] Reason for Referral * Diagnostic Imaging (Routine) - Closed Specialty Diagnoses / Procedures Referred By Contac t Referred To Contact Diagnoses Rib pain Procedures XR Ribs Bilateral 3 Views Sandra Bauman MD [address] [place] [address] Phone: tel: fax: [address] [address] Referral ID Status Reason Start Date Expiration Date Visits Re quested Visits Authorized [id number] Closed 08/24/2022 09/23/2023 1 1 Encounter Details Date Type Department Care Team (Late st Contact Info) Description 08/24/2022 9:00 AM CDT Office Visit [facility] Rheumatology [address] [facility] [address] [facility] [address]th [place] [address] [place] [address] 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); High risk medication use; Rib pain Social History Tobacco Use Types Packs/Day Years Used Date Smoking Tobacco: Never Smokeless Tobacco: Never Tobacco Cessation:Counseling Given: Not Answered Alcohol Use Standard Drinks/Week Comments Not Currently 0 (1 standard drink = 0.6 oz pur e alcohol) Comments Unknown Sex and Gender Information Value Date Recorded Sex Assigned at Not on file Legal Sex Female 1:14 AM FOOD SAFETY MANAGER Gender Identity Female 05/04/2020 3:33 PM CDT Sexual Orientation Not on file 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 Not on file Not on file documented as of this encounter Last Filed Vital Signs Vital Sign Reading Time Taken Comments Blood Pressure 145/87 08/24/2022 8:48 AM CDT Pulse 73 08/24/2022 8:48 AM CDT Temperature 36.7 ??C (98 ??F) 08/24/2022 8:48 AM CDT Respiratory Rate - - Oxygen Saturation - - Inhaled Oxygen Concentration - - Weight 113.4 kg (250 lb) 08/24/2022 8:48 AM CDT Height 157.5 cm (5' 2 ) 08/24/2022 8:48 AM CDT Body Mass Index 45.73 08/24/2022 8:48 AM CDT documented in this encounter Patient Instructions * Patient Instructions* Tomeka Kwok RMA - 08/24/2022 9:00 AM CDT Prednisone taper to start 4 weeks after starting Orencia. 12.5 mg daily for 2 weeks, 10 mg daily for 2 weeks, 7.5 mg daily for 2 weeks, then 5 mg daily. documented in this encounter Ordered Prescriptions Prescription Sig Dispense Quantity Refills Last Filled Start Date End Date predniSONE (DELTASONE) 2.5 mg tablet Take 5 tablets (12.5 mg) by mouth daily for 14 days, THEN 4 tablets (10 mg) daily for 14 days, THEN 3 tablets (7.5 mg) daily for 14 days, THEN 2 tablets (5 mg) daily. 228 tablet 08/24/2022 3 documented in this encounter Progress Notes * Sandra Bauman MD - 08/24/2022 9:00 AM CDT Images from the original note were not included. RHEUMATOLOGY PROGRESS NOTE DIAGNOSES: Seropositive rheumatoid arthritis Interstitial lung disease DVT and PE Atrial fibrillation Congestive heart failure Sleep apnea Hypothyroidism Chief Complaint: Follow up SUBJECTIVE: Last seen in clinic in February 2022 for evaluation of ILD and RA. Patient was diagnosed with rheumatoid arthritis and lung disease in 2018, placed on hydroxychloroquine and methotrexate with progressive decline in respiratory status, particularly worsened after influenza in September 2021. Methotrexate was discontinued in November 2021. Was on hydroxychloroquine and prednisone at the time of her initial visit. Is being followed by Pulmonary in the ILD clinic. Her case was discussed at the multidisciplinary CTD-ILD meeting, and we had decided to move forward with abatacept for treatment of rheumatoid arthritis. She has had delays in initiation of therapy with abatacept due to insurance issues along with interruptions in therapy due to infections and hospitalizations. Had a recent hospital admission after a fall and rib fractures when she was noted to be in pulmonary edema. She has been on abatacept for about 6 weeks with interruptions. Orencia on a hold at this time due to recent UTI, patient on ciprofloxacin at this time. States that overall she felt better with use of abatacept. Reports pain on either side of the spineat midthoracic level, symptoms exacerbated by recent physical therapy sessions. Review of Systems: All systems negative except as above Current Outpatient Medications Medication Sig Dispense Refill acetaminophen 325 mg capsule Take by mouth calcium carbonate-vit D3-min 600 mg calcium- 400 unit tablet Take by mouth 2 (two) times a day cholecalciferol (VITAMIN D-3) 2000 unit tablet Take 1,000 Units by mouth daily cholestyramine (QUESTRAN) 4 gram packet ciprofloxacin (CIPRO) 500 mg tablet Take 500 mg by mouth 2 (two) times a day DULoxetine DR (CYMBALTA) 20 mg capsule Take 20 mg by mouth daily Eliquis 5 mg tablet Take 5 mg by mouth 2 (two) times a day furosemide (LASIX ORAL) Take 60 mg by mouth daily 60 mg hydroxychloroquine (PLAQUENIL) 200 mg tablet Take 200 [...] tablet Take 80 mg by mouth daily traMADoL (ULTRAM) 50 mg tablet Take 1 tablet (50 mg total) by mouth every 8 (eight) hours as neededfor pain 21 tablet 0 abatacept (Orencia ClickJect) 125 mg/mL auto-injector (Patient not taking: Reported on 08/24/2022) lidocaine (LIDODERM) 5 % Place 1 patch on the skin daily Remove & discard patch within 12 hoursor as directed by . 30 patch 0 predniSONE (DELTASONE) 2.5 mg tablet Take 5 tablets (12.5 mg) by mouth daily for 14 days, THEN 4 tablets (10 mg) daily for 14 days, THEN 3 tablets (7.5 mg) daily for 14 days, THEN 2 tablets (5 mg) daily. 228 tablet 0 trimethoprim (TRIMPEX) 100 mg tablet Take 1 tablet (100 mg total) by mouth nightly at bedtime. (Patient not taking: Reported on 08/24/2022) 30 tablet 0 No current facility-administered medications for this visit. Objective: BP 145/87 Pulse 73 Temp 36.7 ??C (98 ??F) Ht 157.5 cm (5' 2 ) Wt 113.4 kg (250 lb) BMI 45.73 kg/m?? General: alert, cooperative, no distress Skin: [...] wheelchair SI Joints: Normal Spine: Normal alignment, no tenderness to palpation Swollen Joints: 0 Trigger/ tender Points; Tight [...] methotrexate discontinued in November 2021 --Currently on hydroxychloroquine and prednisone 15 mg/day with recent initiation of with frequent interruptions due to infections in hospitalization --patient advised to resume therapy with abatacept after completion of antibiotics for the current UTI --she has been advised to reduce prednisone after being on abatacept for 4 weeks-reduce prednisone to to 12.5 mg a day for 2 weeks, and mg a day for 2 weeks, 7.5 mg a day for 2 weeks, and mg a day --serial eye exam while on hydroxychloroquine therapy 2. Interstitial Lung Disease: --likely related to RA --being followed by Pulmonary --treatment plan for rheumatoid arthritis was discussed multidisciplinary CTD- ILD meeting 3. Other: --Obtain XR ribs due to chest wall pain The patient is to return to clinic in 3 months. Orders Placed This Encounter Procedures XR Ribs Bilateral 3 Views Standing Status: Future Number of Occurrences: 1 Standing Expiration Date: 08/24/2023 Order Specific Question: Where should this order be performed? Answer: [facility] [152] CBC with auto differential Standing Status: Future Number of Occurrences: 1 Standing Expiration Date: 08/24/2023 Comprehensive metabolic panel Standing Status: Future Number of Occurrences: 1 Standing Expiration Date: 08/24/2023 CRP (acute phase) Standing Status: Future Number of Occurrences: 1 Standing Expiration Date: 08/24/2023 Erythrocyte sedimentation rate Standing Status: Future Number of Occurrences: 1 Standing Expiration Date: 08/24/2023 Be advised that voice recognition software has been used on this chart and inadvertent errors may occur. These may not represent a true interpretation of the dictation given. documented in this encounter Plan of Treatment Not on file documented as of this encounter Results * XR Ribs Bilateral [...] and agrees with it. Electronically signed by: DO Diana Santo 08/24/2022 12:05 PM CDT EXAMINATION: ??XR RIBS [...] Bauman MD IMG XR PROCEDURES Final Result * (ABNORMAL) Erythrocyte sedimentation rate (08/24/2022 9:45 AM CDT) Pathologist [facility] Erythrocyte sedimentation rate 31(H) 1 - 30 mm/hr [facility] Blood 08/24/2022 9:45 AM CDT 08/24/2022 12:22 PM CDT Sandra Bauman MD LAB BLOOD ORDERABLES Final Resul t [facility] [place] [address] * CRP (acute phase) (08/24/2022 9:45 AM CDT) Pathologist [facility] CRP 6.5 <=10.0 mg/L [facility] Blood 08/24/2022 9:45 AM CDT 08/24/2022 12:22 PM CDT Sandra Bauman MD LAB BLOOD ORDERABLES Final Resul t Performing Organization Address City/State/[facility] Co de Phone Number KUR[facility] Shultz [facility] Department [place] [address] * (ABNORMAL) Comprehensive metabolic panel (08/24/2022 9:45 AM CDT) Total Protein 6.2 6.1 - 8.4 g/dL [facility] Albumin 4.0 3.5 - 5.2 g/dL [facility] Calcium 10.1 8.6 - 10.3 mg/dL [facility] BUN 36(H) 7 - 23 mg/dL [facility] Total Bilirubin 0.23 0.20 - 1.40 mg/dL [facility] Alk Phos, Total 56 35 - 129 IU/L [facility] AST (SGOT) 15 11 - 47 IU/L [facility] ALT (SGPT) 11 6 - 53 IU/L [facility] Creatinine 1.35(H) 0.60 - 1.10 mg/dL [facility] Sodium 140 135 - 145 mmol/L [facility] Potassium 3.8 3.3 - 5.1 mmol/L [facility] Chloride 102 95 - 107 mmol/L [facility] CO2 Content 23 21 - 29 mmol/L [facility] Glucose 98 64 - 99 mg/dL [facility] Comment: NONFASTING GLUCOSE RANGE = 64-199 mg/dL FASTING GLUCOSE 64 - 99 = NORMAL FASTING GLUCOSE 100 - 125 = IMPAIRED FASTING GLUCOSE FASTING GLUCOSE >=126 = PROVISIONAL DIAGNOSIS OF DIABETES eGFR 41.2(L) >60.0 mL/min/1.7 3 m2 [facility] Blood 08/24/2022 9:45 AM CDT 08/24/2022 10:21 AM CDT Sandra Bauman MD LAB BLOOD ORDERABLES Final Resul t [facility] * (ABNORMAL) CBC with auto differential (08/24/2022 9:45 AM CDT) White Blood Count 16.0(H) 3.6 - 11.2 K/uL [facility] RBC 3.35(L) 3.63 - 4.92 M/uL [facility] Hemoglobin 10.3(L) 11.9 - 15.5 g/dL [facility] Hematocrit 32.2(L) 36.1 - 44.3 % [facility] MCV 96.2 80.0 - 97.6 fL [facility] MCH 30.9 26.7 - 33.7 pg [facility] MCHC 32.1(L) 32.7 - 35.5 g/dL [facility] RBC Dist Width 16.2 12.3 - 17.0 % [facility] Platelet Count 238 140 - 440 K/uL [facility] Comment:Repeated and Verifie d MPV 8.1 6.8 - 10.4 fL [facility] Neutrophils % 87.1(H) 38.7 - 74.5 % [facility] Lymphocyte % 6.2(L) 20.0 - 54.3 % [facility] Monocytes % 5.6 4.3 - 13.5 % [facility] Eosinophils % 0.6 0.0 - 6.0 % [facility] Basophil % 0.5 0.0 - 3.0 % [facility] Absolute Neutrophil 13.9(H) 1.8 - 6.6 K/uL [facility] Absolute Lymphocyte 1.0 0.8 - 3.3 K/uL [facility] Absolute Monocyte 0.9 0.2 - 1.2 K/uL [facility] Absolute Eosinophil 0.1 0.0 - 0.5 K/uL [facility] Absolute Basophil 0.1 0.0 - 0.2 K/uL [facility] Nucleated RBC % 0.0 0.0 - 0.4 /100 WBC [facility] Blood 08/24/2022 9:45 AM CDT 08/24/2022 10:21 AM CDT us Sandra Bauman MD LAB BLOOD ORDERABLES Final Resul t [facility] documented in this encounter Visit Diagnoses Diagnosis 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)- Primary High risk medication use Rib pain Unspecified chest pain Rib pain Unspecified chest pain documented in this encounter Discontinued Medications Medication Sig Discontinue Reason Start Date End Da te lisinopriL (PRINIVIL,ZESTRIL) 5 mg tablet Take 2 tablets (10 mg total) by mouth daily Therapy completed 07/03/2022 08/24/2022 ipratropium-albuteroL (DUO-NEB) 0.5-2.5 mg/3 mL nebulizer solutionIndications:Chr onic Obstructive Pulmonary Disease with Bronchospasms Take 3 mL by nebulization every 6 (six) hours as needed for wheezing Therapy completed 07/03/2022 08/24/2022 loperamide (IMODIUM) 2 mg capsule Take 2 mg by mouth 4 (four) times a day as needed for diarrhea Therapy completed 08/24/2022 simethicone (MYLICON) 80 mg chewable tablet Take 80 mg by mouth every 6 (six) hours as needed for flatulence Therapy completed 08/24/2022 sertraline (ZOLOFT) 50 mg tablet Take 50 mg by mouth daily Therapy completed 10/23/2021 08/24/2022 phenazopyridine (PYRIDIUM) 200 mg tablet TAKE 1 TABLET BY MOUTH THREE TIMES DAILY NEEDED FOR URINARY SYMPTOMS Therapy completed 11/10/2021 08/24/2022 cyanocobalamin 2,000 mcg tablet Take 1,000 mcg by mouth daily Therapy completed 08/24/2022 predniSONE (DELTASONE) 10 mg tablet TAKE 1 TABLET(10 MG) BY MOUTH EVERY MORNING Dose adjustment 08/21/2022 08/24/2022 documented as of this encounter Historical Medications * This list may reflect changes made after this encounter. potassium chloride ER (KLOR-CON) 20 mEq CR tablet 1 tablet (20 mEq total) 2 (two) times a day 08/20/2022 abatacept (Orencia ClickJect) 125 mg/mL auto-injector 06/22/2022 11/19/2023 ciprofloxacin (CIPRO) 500 mg tablet Take 500 mg by mouth 2 (two) times a day 08/20/2022 09/13/2022 added in this encounter Additional Health Concerns Infection Onset Date Last Indicated Resolved Time COVID: Recovered Comment:Added based on recent COVID infection. 06/17/2022 06/18/2022 10/15/2022 3:[address] documented as of this encounter Care Teams Account Installer Relationship Specialty Start Date End Date Modesto Reyez DO PCP - General Internal Medicine 01/03/20 01/13/23 documented as of this encounter
--- OUTSIDE RECORDS SUMMARY | 2024-11-15 05:56 | XMS_ITS | Encounter Summary ---
Author Organization [facility] Address [address] [place] [address] Phone Care Team Providers Care Security Police Officer Name Role Phone Ni Armas RN Unavailable Lizette Liliana Prakash MD Primary Care Provider [phone] Encounter Details Date Type Department Care Team (Late st Contact Info) Description 01/28/2023 Orders Only [facility] Pulmonary [address] [facility] [address] [facility] [address] [place] [address] [place] [address] Denita Correa MD [address] [place] [address] Social History Tobacco Use Types Packs/Day Years Used Date Smoking Tobacco: Never Smokeless Tobacco: Never Alcohol Use Standard Drinks/Week Comments Not Currently 0 (1 standard drink = 0.6 oz pur e alcohol) Comments Unknown Sex and Gender Information Value Date Recorded Sex Assigned at Not on file Legal Sex Female 1:14 AM ADVANCED SOLUTIONS ARCHITECT Gender Identity Female 05/04/2020 3:33 PM CDT Sexual Orientation Not on file 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 74 tablet 01/28/2023 3 documented in this encounter Plan of Treatment Not on file documented as of this encounter Visit Diagnoses Not on filedocumented in this encounter Care Teams Security Police Officer Relationship Specialty Start Date End Date Liliana Baron MD PCP - General Internal Medicine 01/14/23 04/11/23 Ni Armas, RN Registered Nurse Pulmonary Disease 01/11/23 documented as of this encounter
--- OUTSIDE RECORDS SUMMARY | 2024-11-15 05:56 | XMS_ITS | Encounter Summary ---
Author Organization [facility] Address [address] [place] [address] Phone Care Team Providers Care Patient Care Director Name Role Phone Modesto Reyez DO Primary Care Provider [phone] Ni Armas RN Unavailable Lizette Liliana Prakash MD Primary Care Provider [phone] Encounter Details Date Type Department Care Team (Late st Contact Info) Description 01/11/2023 8:45 AM HEALTH UNIT COORDINATOR Office Visit [facility] Pulmonary [address] 8th [place] [address] [place] [address] Denita Correa MD [address] [place] [address] ILD (interstitial lung disease) (CMS/HCC) (HCC) (Primary Dx) Social History Tobacco Use Types Packs/Day Years Used Date Smoking Tobacco: Never Smokeless Tobacco: Never Alcohol Use Standard Drinks/Week Comments Not Currently 0 (1 standard drink = 0.6 oz pur e alcohol) Comments Unknown Sex and Gender Information Value Date Recorded Sex Assigned at Not on file Legal Sex Female 1:14 AM HEALTH UNIT COORDINATOR Gender Identity Female 05/04/2020 3:33 PM CDT Sexual Orientation Not on file 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 Not on file Not on file documented as of this encounter Last Filed Vital Signs Vital Sign Reading Time Taken Comments Blood Pressure 155/81 01/11/2023 8:21 AM HEALTH UNIT COORDINATOR Pulse 65 01/11/2023 8:21 AM HEALTH UNIT COORDINATOR Temperature 36.8 ??C (98.3 ??F) 01/11/2023 8:21 AM CS T Respiratory Rate 18 01/11/2023 8:21 AM HEALTH UNIT COORDINATOR Oxygen Saturation 100% 01/11/2023 8:21 AM HEALTH UNIT COORDINATOR 2 liters 02 Inhaled Oxygen Concentration - - Weight 108.9 kg (240 lb) 01/11/2023 8:21 AM HEALTH UNIT COORDINATOR Height 157.5 cm (5' 2 ) 01/11/2023 8:21 AM HEALTH UNIT COORDINATOR Body Mass Index 43.9 01/11/2023 8:21 AM HEALTH UNIT COORDINATOR documented in this encounter Patient Instructions * Patient Instructions* Ni Armas RN - 01/11/2023 8:45 AM HEALTH UNIT COORDINATOR Please call BILLY Dan with any questions at [phone]. TH UNIT COORDINATOR documented in this encounter Progress Notes * Denita Correa MD - 01/11/2023 12:00 AM CST PATIENT NAME: AYANNA CASH : 1950 ANGELICA: 01/11/2023 PROBLEM LIST: Rheumatoid arthritis, seropositive, previously on methotrexate, Changed to abatacept and prednisone Hypertension. Congestive heart failure. Obstructive sleep apnea [...] fractures and heart failure exacerbation. INTERVAL HISTORY: Since Ms. Cash was last seen, she states she has had a continued progression of her dyspnea. She states it has been a slow and steady decline. She has started abatacept and her prednisone has been weaned down to 2.5 mg a day. She denies any coughing. She is using 2 L/minute oxygen at rest, 4 L/minute with activity and her CPAP at night. She is able to do her own bathing and dressing, but her daughter helps her with all other household activities. Of note, she had a fall back in April off the bed. She has since been diagnosed with compression fractures by MRI. This occurred at the T5 and T11 level which appear chronic and new compression fractures at T10 and T12. She has a DEXA scan scheduled. MEDICATIONS: Metoprolol 50 mg a day. Abatacept. Tylenol p.r.n. Calcium with vitamin D3. Cholestyramine. Vitamin B12 1000 mcg a day. Duloxetine 20 mg a day. Eliquis 5 mg b.i.d. Lasix 60 mg a day. Hydroxychloroquine 200 mg b.i.d. Levothyroxine 112 mcg a day. Potassium chloride. Pravachol 80 mg a day. Prednisone 2.5 mg a day. Ultram p.r.n. REVIEW OF SYSTEMS: She has bilateral lower extremity edema. No fevers or chills. Weight is down 15 pounds. PHYSICAL EXAMINATION: Vital Signs: Afebrile, blood pressure 115/81, pulse 65, respiratory rate 18. O2 saturation is 100% on 2 L. Height 5 feet 2 inches, weight 240 pounds for a BMI of 43.9. General: Pleasant white woman in no acute distress. HEENT: Sclerae anicteric. Conjunctivae pink. No oropharyngeal lesions. No cervical lymphadenopathy. Lungs: Bibasilar inspiratory crackles approximately a third of the way up. Cardiovascular: S1, S2. No murmurs, rubs, or gallops. Abdomen: Obese but nontender. Extremities: No clubbing, cyanosis, 1+ edema. DATA: Spirometry: Date FVC,% pred FEV1, % pred FEV1/FVC TLC, % pred DLCO, % pred 12/2022 0.89, 38% 0.86, 43% 88% 05/2022 1.40, 55% 1.21, 62% 87% 02/2022 1.26, 49% 1.10, 55% 87% 10/2021 1.22, 47% 1.11, 56% 91% 2.63, 55% 45% Oxygen assessment: Resting room air saturation 98%. She walked 100 feet with a room air saturation trixie of 88%. She required 2 L/minute to maintain an O2 saturation greater than 90%. Prior echocardiogram from November 2021 with RVSP of 8 mmHg, LV systolic function 55% to 60%, RV systolic function normal. IMPRESSION: Ms. Cash is a 72-year-old woman with a history of underlying rheumatoid arthritis and associated interstitial lung disease, who returns for follow-up. Unfortunately, she has had a significant decline in her lung function. It is possible some of this may be related to a change in her thoracic cavity size due to the compression fractures, but I am also concerned about progression of her underlying interstitial lung disease. RECOMMENDATIONS: We will obtain a CT scan. The patient is unable to stay to do that, so we will order it through [facility] high-resolution protocol. Once we have the CT scan, we will review with the radiologist. If she has significant worsening of her underlying interstitial lung disease, we will then need to discuss with Dr. Bauman, her security technician if medications need to be changed. We will plan to see her back in approximately 3 months with spirometry and oxygen assessment. ELECTRONICALLY SIGNED - 01/14/2023 03:26 PM Denita Correa M.D. director of staff development TR/carl cc: MODESTO REYEZ DO [facility] [place] [place] [id number] / ETIENNE BAUMAN MD [address] [place] [address] TH UNIT COORDINATOR TH UNIT COORDINATOR documented in this encounter Plan of Treatment Not on file documented as of this encounter Visit Diagnoses Diagnosis ILD (interstitial lung disease) (CMS/HCC) (HCC)- Primary Postinflammatory pulmonary fibrosis documented in this encounter Historical Medications * This list may reflect changes made after this encounter. cyanocobalamin (Vitamin B-12) 1,000 mcg tabletIndications :Prevention of Vitamin B12 Deficiency Take 1 tablet (1,000 mcg total) by mouth daily alendronate (FOSAMAX) 70 mg tablet 01/10/2023 added in this encounter Care Teams Patient Care Director Relationship Specialty Start Date End Date Modesto Reyez DO PCP - General Internal Medicine 01/03/20 01/13/23 Liliana Baron MD PCP - General Internal Medicine 01/14/23 04/11/23 Ni Armas, RN Registered Nurse Pulmonary Disease 01/11/23 documented as of this encounter
--- OUTSIDE RECORDS SUMMARY | 2024-11-15 05:56 | XMS_ITS | Encounter Summary ---
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); High risk medication use Discharge Disposition: Discharge to home or self care Social History Tobacco Use Types Packs/Day Years Used Date Smoking Tobacco: Never Smokeless Tobacco: Never Alcohol Use Standard Drinks/Week Comments Not Currently 0 (1 standard drink = 0.6 oz pur e alcohol) Comments Unknown Sex and Gender Information Value Date Recorded Sex Assigned at Not on file Legal Sex Female 1:14 AM SERVICE GIRL Gender Identity Female 05/04/2020 3:33 PM CDT Sexual Orientation Not on file 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) High risk medication use documented in this encounter Results * (ABNORMAL) Erythrocyte sedimentation rate (08/24/2022 9:45 AM CDT) Erythrocyte sedimentation rate 31(H) 1 - 30 mm/hr [facility] Blood 08/24/2022 9:45 AM CDT 08/24/2022 12:22 PM CDT Sandra Bauman MD LAB BLOOD ORDERABLES Final Resul t Performing Organization Address [facility] Co de Phone Number [facility] Department [place] [address] * CRP (acute phase) (08/24/2022 9:45 AM CDT) CRP 6.5 <=10.0 mg/L [facility] Blood 08/24/2022 9:45 AM CDT 08/24/2022 12:22 PM CDT Sandra Bauman MD LAB BLOOD ORDERABLES Final Resul t Performing Organization Address City/[facility]/ZIP Co de Phone Number [facility] Department [place] [address] documented in this encounter Visit Diagnoses Diagnosis 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 06/17/2022 06/18/2022 10/15/2022 3:[address] documented as of this encounter Care Teams Carry Out Clerk Relationship Specialty Start Date End Date Modesto Reyez DO PCP - General Internal Medicine 01/03/20 01/13/23 documented as of this encounter
--- OUTSIDE RECORDS SUMMARY | 2024-11-15 05:56 | XMS_ITS | Encounter Summary ---
Author Organization [facility] Address [address] [place] [address] Phone Care Team Providers Care Rotary Planer Set Up Operator Name Role Phone Modesto Reyez DO Primary Care Provider [phone] Reason for Visit * Reason Onset Date Comments Brandon donahue 10/03/2022 Encounter Details Date Type Department Care Team (Late st Contact Info) Description 10/03/2022 Telephone [facility] Rheumatology [address] [place] [address] 5th [place] [address] [place] [address] Tomeka Kwok RMA [place] Social History Tobacco Use Types Packs/Day Years Used Date Smoking Tobacco: Never Smokeless Tobacco: Never Alcohol Use Standard Drinks/Week Comments Not Currently 0 (1 standard drink = 0.6 oz pur e alcohol) Comments Unknown Sex and Gender Information Value Date Recorded Sex Assigned at Not on file Legal Sex Female 1:14 AM SPORTS LEADERSHIP INSTRUCTOR Gender Identity Female 05/04/2020 3:33 PM CDT Sexual Orientation Not on file 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 Patient will fax their portion to us for processing. TS LEADERSHIP INSTRUCTOR documented in this encounter Plan of Treatment Not on file documented as of this encounter Visit Diagnoses Not on filedocumented in this encounter Additional Health Concerns Infection Onset Date Last Indicated Resolved Time COVID: Recovered Comment:Added based on recent COVID infection. 06/17/2022 06/18/2022 10/15/2022 3:[address] documented as of this encounter Care Teams Rotary Planer Set Up Operator Relationship Specialty Start Date End Date Modesto Reyez DO PCP - General Internal Medicine 01/03/20 01/13/23 documented as of this encounter
--- OUTSIDE RECORDS SUMMARY | 2024-11-15 05:56 | XMS_ITS | Encounter Summary ---
Author Organization [facility] Address [address] [place] [address] Phone Care Team Providers Care Religion Professor Name Role Phone Ni Armas RN Unavailable Lizette Liliana Prakash MD Primary Care Provider [phone] Encounter Details Date Type Department Care Team (Late st Contact Info) Description 02/27/2023 Documentation [facility] Pulmonary [address] [facility] [address] 8th [place] [address] [place] [address] Ni Armas, BILLY Social History Tobacco Use Types Packs/Day Years Used Date Smoking Tobacco: Never Smokeless Tobacco: Never Alcohol Use Standard Drinks/Week Comments Not Currently 0 (1 standard drink = 0.6 oz pur e alcohol) Comments Unknown Sex and Gender Information Value Date Recorded Sex Assigned at Not on file Legal Sex Female 1:14 AM METALSMITH APPRENTICE Gender Identity Female 05/04/2020 3:33 PM CDT Sexual Orientation Not on file 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 Pt will need PFTs prior to appt. Order in place. Please contact pt with times. Thank you Ni documented in this encounter Plan of Treatment Not on file documented as of this encounter Visit Diagnoses Not on filedocumented in this encounter Care Teams Religion Professor Relationship Specialty Start Date End Date Liliana Baron MD PCP - General Internal Medicine 01/14/23 04/11/23 Ni Armas, RN Registered Nurse Pulmonary Disease 01/11/23 documented as of this encounter
--- OUTSIDE RECORDS SUMMARY | 2024-11-15 05:56 | XMS_ITS | Encounter Summary ---
Author Organization [facility] Address [address] [place] [address] Care Team Providers Care Denture Finisher Name Role Phone Modesto Reyez Primary Care Provider [phone] Encounter Details Date Type Department Care Team (Late st Contact Info) Description 08/02/2022 Telephone [facility] Cardiology [address] [facility] [address] [place] [address] Yolanda Soto NP [address] [facility] [address] [place] [address] Social History Tobacco Use Types Packs/Day Years Used Date Smoking Tobacco: Never Smokeless Tobacco: Never Alcohol Use Standard Drinks/Week Comments Not Currently 0 (1 standard drink = 0.6 oz pur e alcohol) Comments Unknown Sex and Gender Information Value Date Recorded Sex Assigned at Not on file Legal Sex Female 1:14 AM SOLAR PROJECT MANAGER Gender Identity Female 05/04/2020 3:33 PM CDT Sexual Orientation Not on file 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 She verbalizes understanding. * Telephone Encounter - Noa Gaines RN - 08/02/2022 3:09 PM CDT Spoke with pt's daughter, she states pt c/o increasing lower extremity swelling. [facility] during admission due to dehydration and elevated creatinine. Pt was restarted on furosemide 20 mg daily on 06/27 and then discharged with instructions to continue furosemide 20 mg daily. Daughter reports pt was on furosemide 60 mg daily prior to admission. Pt on home o2 at 4L/min which is chronic. Daughter denies any increased sob. While pt was in the hospital she was also treated for a kidney stone with stent placement and is scheduled to have this removed on 08/07. Daughter wanting to know if pt's furosemide can be increased due to lower extremityswelling. records scanned in to [employer]. I did discuss low sodium diet, elevating legs, compressionstockings and daily weights with pts daughter. Will forward to CT and AD. Please advise. * Telephone Encounter - Charli Nye - 08/02/2022 1:41 PM CDT Pt daughter Mae returning nurse Noa call,requesting you call her job phone ([employer]) and ask for her.Thank you Contact:[phone] States she is there til 5pm * Telephone Encounter - Noa Gaines RN - 08/02/2022 1:27 PM CDT LM on requesting return call. * Telephone Encounter - Charli Nye - 08/02/2022 1:07 PM CDT Pt daughter Mae called states pt [facility] for dehydration and kidney stone(states stent was placed in her kidney and will be removed 08/07), instructed to decrease Lasix from 50 mg to 20 mg. Mae reports pts legs are now swelling,asking if CT will like to increase again.Please advise.Thank you Contact:[phone] documented in this encounter Plan of Treatment Not on file documented as of this encounter Visit Diagnoses Not on filedocumented in this encounter Additional Health Concerns Infection Onset Date Last Indicated Resolved Time COVID: Recovered Comment:Added based on recent COVID infection. 06/17/2022 06/18/2022 10/15/2022 3:[address] documented as of this encounter Care Teams Denture Finisher Relationship Specialty Start Date End Date Modesto Reyez DO PCP - General Internal Medicine 01/03/20 01/13/23 documented as of this encounter
--- OUTSIDE RECORDS SUMMARY | 2024-11-15 05:56 | XMS_ITS | Encounter Summary ---
Author Organization [facility] Address [address] [facility] [address] [place] [address] Phone Care Team Providers Care Web Services Architect Name Role Phone Ni Armas RN Unavailable Lizette Liliana Prakash MD Primary Care Provider [phone] Reason for Referral * Procedure (Routine) - Closed Specialty Diagnoses / Procedures Referred By Contac t Referred To Contact Pulmonology Diagnoses ILD (interstitial lung disease) (CMS/HCC) (HCC) Procedures Pulmonary Function Test -[facility]; Full PFT in PFT Lab Pulmonary Function Test -[facility]- [facility]; Spirometry Denita Correa MD [address] [place] [address] Phone: tel: fax: Referral ID Status Reason Start Date Expiration Date Visits Re quested Visits Authorized [id number] Closed 01/29/2023 02/28/2024 1 1 ARD/STEWARDESS WINE Encounter Details Date Type Department Care Team (Late st Contact Info) Description 01/29/2023 Orders Only [facility] Pulmonary [address] [facility] 8th [place] [address] [place] [address] Denita Correa MD [address] [place] [address] ILD (interstitial lung disease) (CMS/HCC) (HCC) (Primary Dx) Social History Tobacco Use Types Packs/Day Years Used Date Smoking Tobacco: Never Smokeless Tobacco: Never Alcohol Use Standard Drinks/Week Comments Not Currently 0 (1 standard drink = 0.6 oz pur e alcohol) Comments Unknown Sex and Gender Information Value Date Recorded Sex Assigned at Not on file Legal Sex Female 1:14 AM STEWARD/STEWARDESS WINE Gender Identity Female 05/04/2020 3:33 PM CDT Sexual Orientation Not on file 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 FEV1 PRE 0.99(L) 1.38 - 2.46 L 02/26/2023 9:27 AM T [facility] [id number] 72.98 63.84 - 89.90 % 02/26/2023 9:27 AM T [facility] [id number]% PRE 0.66(L) 0.72 - 2.97 L/s 02/26/2023 9:27 AM [facility] PEF PRE 3.25(L) 3.85 - 6.81 L/s 02/26/2023 9:27 AM [facility] FET 100% PRE 7.48 sec 02/26/2023 9:27 AM [facility] FIVC PRE 1.11(L) 1.59 - 2.97 L 02/26/2023 9:27 AM [facility] FIF50% PRE 2.28 L/s 02/26/2023 9:27 AM [facility] Anatomical Region Laterality Modality PFT 02/26/2023 9:06 [...] pulmonary fibrosis ILD (interstitial lung disease) (CMS/HCC) ([facility]) Postinflammatory pulmonary fibrosis documented in this encounter Care Teams Web Services Architect Relationship Specialty Start Date End Date Liliana Baron MD PCP - General Internal Medicine 01/14/23 04/11/23 Ni Armas, RN Registered Nurse Pulmonary Disease 01/11/23 documented as of this encounter
--- OUTSIDE RECORDS SUMMARY | 2024-11-15 05:56 | XMS_ITS | Encounter Summary ---
Author Organization [facility] Address [address] [place] [address] Phone Care Team Providers Care Veneer Slicing Machine Operator Name Role Phone Modesto Reyez DO Primary Care Provider [phone] Encounter Details Date Type Department Care Team (Late st Contact Info) Description 12/20/2022 Orders Only [facility] Rheumatology [address] [facility] [address] 5th [place] [address] [place] [address] Sandra Bauman MD [address] [facility] [address] [place] [address] Thoracic spine pain Social History Tobacco Use Types Packs/Day Years Used Date Smoking Tobacco: Never Smokeless Tobacco: Never Alcohol Use Standard Drinks/Week Comments Not Currently 0 (1 standard drink = 0.6 oz pur e alcohol) Comments Unknown Sex and Gender Information Value Date Recorded Sex Assigned at Not on file Legal Sex Female 1:14 AM HOME PERFORMANCE CONSULTANT Gender Identity Female 05/04/2020 3:33 PM CDT Sexual Orientation Not on file 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
--- OUTSIDE RECORDS SUMMARY | 2024-11-15 05:56 | XMS_ITS | Encounter Summary ---
Author Organization [facility] Healthcare Address [address] [place] [address] Care Team Providers Care Proposal Review Analyst Name Role Phone Ni Armas RN Unavailable Lizette Liliana Prakash MD Primary Care Provider [phone] Reason for Referral * MRI/CAT/PET Scan (Routine) - Closed Specialty Diagnoses / Procedures Referred By Contac t Referred To Contact Radiology Diagnoses ILD (interstitial lung disease) (CMS/HCC) (HCC) Procedures CT Chest High Resolution WO Contrast Denita Correa MD [address] [address] Phone: tel: fax: External Order Referral ID Status Reason Start Date Expiration Date Visits Re quested Visits Authorized [id number] Closed 01/11/2023 02/10/2024 1 1 CLOTH CUTTER Reason for Visit * MRI/CAT/PET Scan (Routine) - Closed Specialty Diagnoses / Procedures Referred By Contac t Referred To Contact Radiology Diagnoses ILD (interstitial lung disease) ([facility]/HCC) (HCC) Procedures CT Chest High Resolution WO Contrast Denita Correa MD [id number] [place] [address] Phone: tel: fax: External Order Referral ID Status Reason Start Date Expiration Date Visits Re quested Visits Authorized [id number] Closed 01/11/2023 02/10/2024 1 1 Encounter Details Date Type Department Care Team (Latest Contact Info) Description 01/18/2023 7:17 AM HAND CLOTH CUTTER - 01/18/2023 11:59 PM HAND CLOTH CUTTER Hospital Encounter [address] [address] ILD (interstitial lung disease) (CMS/HCC) ([facility]) Discharge Disposition: Discharge to home or self care Social History Tobacco Use Types Packs/Day Years Used Date Smoking Tobacco: Never Smokeless Tobacco: Never Alcohol Use Standard Drinks/Week Comments Not Currently 0 (1 standard drink = 0.6 oz pur e alcohol) Comments Unknown Sex and Gender Information Value Date Recorded Sex Assigned at Not on file Legal Sex Female 1:14 AM HAND CLOTH CUTTER Gender Identity Female 05/04/2020 3:33 PM CDT Sexual Orientation Not on file 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 Not on [...] mouth daily 30 tablet 2 12/03/2022 3 documented as of this encounter Discharge Disposition Disposition Code Departure Means Destination Discharge to home or self care documented in this encounter Plan of Treatment Not on file documented as of this encounter Procedures Procedure Name Priority Date/Time Associated Diagnosis Comments CT CHEST HIGH RESOLUTION WO CONTRAST Schedule Routine, Read Routine (OP Routine) 01/18/2023 7:41 AM HAND CLOTH CUTTER ILD (interstitial lung disease) (CMS/HCC) (HCC) documented in this encounter Results * CT Chest High Resolution WO Contrast (01/18/2023 7:41 AM HAND CLOTH CUTTER) Anatomical Region Laterality Modality Chest N/A Computed Tomogra phy 01/18/2023 9:33 AM HAND CLOTH CUTTER Narrative 01/18/2023 9:52 AM HAND CLOTH CUTTER EXAM DESCRIPTION: ?? CT CHEST HIGH RESOLUTION [...] Electronically signed by ??Saray Almonte M.D. TW: TW D: ??01/18/2023 9:52 AM T: ??01/18/2023 9:52 AM Report ID: [id number] Reading Location: ??[id number] Procedure Note Saary Almonte MD - 01/18/2023 EXAM DESCRIPTION: CT [...] Saray Almonte M.D. TW: TW Report ID: [id number] Reading Location: [place] [address] Denita Correa MD IMG CT PROCEDURES Final Resu lt documented in this encounter Visit Diagnoses Diagnosis ILD (interstitial lung disease) (CMS/HCC) (HCC) Postinflammatory pulmonary fibrosis documented in this encounter Care Teams Proposal Review Analyst Relationship Specialty Start Date End Date Liliana Baron MD PCP - General Internal Medicine 01/14/23 04/11/23 Ni Armas, RN Registered Nurse Pulmonary Disease 01/11/23 documented as of this encounter
--- OUTSIDE RECORDS SUMMARY | 2024-11-15 05:56 | XMS_ITS | Encounter Summary ---
Author Organization [facility] Address [address] [place] [address] Phone Care Team Providers Care Glory Hole Tender Name Role Phone Modesto Reyez DO Primary Care Provider [phone] Ni Armas RN Unavailable Lizette Liliana Prakash MD Primary Care Provider [phone] Reason for Visit * Reason Onset Date Comments bone density 01/11/2023 Encounter Details Date Type Department Care Team (Late st Contact Info) Description 01/11/2023 Telephone [facility] Rheumatology [facility] 5th [place] [address] [place] [address] Tomeka Kwok RMA bone density Social History Tobacco Use Types Packs/Day Years Used Date Smoking Tobacco: Never Smokeless Tobacco: Never Alcohol Use Standard Drinks/Week Comments Not Currently 0 (1 standard drink = 0.6 oz pur e alcohol) Comments Unknown Sex and Gender Information Value Date Recorded Sex Assigned at Not on file Legal Sex Female 1:14 AM DOUBLE CUT SAWYER Gender Identity Female 05/04/2020 3:33 PM CDT Sexual Orientation Not on file 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 LE CUT SAWYER * Telephone Encounter - Tomeka Kwok RMA - 01/15/2023 12:03 PM CST LMOM for patient's daughter informing to please proceed with taking Alendronate as prescribed. LE CUT SAWYER * Telephone Encounter - Tomeka Kwok RMA - 01/11/2023 8:21 AM CST Patient was recently prescribed Fosamax per recent bone density results. Requests Dr. Bauman's opinion on taking. Results forwarded to Dr. Bauman to review. LE CUT SAWYER documented in this encounter Plan of Treatment Not on file documented as of this encounter Visit Diagnoses Not on filedocumented in this encounter Care Teams Glory Hole Tender Relationship Specialty Start Date End Date Modesto Reyez DO PCP - General Internal Medicine 01/03/20 01/13/23 Liliana Baron MD PCP - General Internal Medicine 01/14/23 04/11/23 Ni Armas, BILLY Registered Nurse Pulmonary Disease 01/11/23 documented as of this encounter
--- OUTSIDE RECORDS SUMMARY | 2024-11-15 05:56 | XMS_ITS | Encounter Summary ---
Author Organization [facility] Healthcare Address [address] [place] [address] Care Team Providers Care Powder Cutting Operator Name Role Phone Aissatou Modesto PADILLA Primary Care Provider Reason for Referral * Diagnostic Imaging (Routine) - Closed Specialty Diagnoses / Procedures Referred By Contac t Referred To Contact Diagnoses Thoracic spine pain Procedures X-ray thoracic spine 2 views Sandra Bauman MD [address] [facility] [address] [address] [place] [address] Phone: tel: fax: [address] [address] Referral ID Status Reason Start Date Expiration Date Visits Re quested Visits Authorized [id number] Closed 11/28/2022 12/28/2023 1 1 LE LOOM TENDER Reason for Visit * Diagnostic Imaging (Routine) - Closed Specialty Diagnoses / Procedures Referred By Contac t Referred To Contact Diagnoses Thoracic spine pain Procedures X-ray thoracic spine 2 views Sandra Bauman MD [address] [facility] [address] [address] Phone: tel: fax: [address] [address] Referral ID Status Reason Start Date Expiration Date Visits Re quested Visits Authorized [id number] Closed 11/28/2022 12/28/2023 1 1 Encounter Details Date Type Department Care Team (Latest Contact Info) Description 11/28/2022 8:58 AM NEEDLE LOOM TENDER - 11/28/2022 11:59 PM NEEDLE LOOM TENDER Hospital Encounter [facility] Radiology [facility] [address] [place] [address] Sandra Bauman MD [address] [facility] [address] [place] [address] Thoracic spine pain Discharge Disposition: Discharge to home or self care Social History Tobacco Use Types Packs/Day Years Used Date Smoking Tobacco: Never Smokeless Tobacco: Never Alcohol Use Standard Drinks/Week Comments Not Currently 0 (1 standard drink = 0.6 oz pur e alcohol) Comments Unknown Sex and Gender Information Value Date Recorded Sex Assigned at Not on file Legal Sex Female 1:14 AM NEEDLE LOOM TENDER Gender Identity Female 05/04/2020 3:33 PM CDT Sexual Orientation Not on file 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 228 tablet 08/24/2022 3 predniSONE (DELTASONE) 5 mg tablet Take 5 mg by mouth 3 documented as of this encounter Discharge Disposition Disposition Code Departure Means Destination Discharge to home or self care documented in this encounter Plan of Treatment Not on file documented as of this encounter Procedures Procedure Name Priority Date/Time Associated Diagnosis Comments XR SPINE THORACIC 2 VIEWS Schedule Routine, Read Routine (OP Routine) 11/28/2022 9:17 AM NEEDLE LOOM TENDER Thoracic spine pain documented in this encounter Results * X-ray thoracic spine 2 views (11/28/2022 9:17 AM NEEDLE LOOM TENDER) Anatomical Region Laterality Modality Spine N/A Computed Radiogr aphy 11/28/2022 9:27 AM NEEDLE LOOM TENDER Impressions 11/28/2022 9:27 AM NEEDLE LOOM TENDER New mild compression deformity of T5 or T6 and mild to moderate compression deformities of T12 and L1. Electronically signed by: Abdifatah Conway M.D. Narrative 11/28/2022 9:27 AM NEEDLE LOOM TENDER EXAMINATION: Thoracic spine 2 views HISTORY: Back [...] of T12 and L1. Electronically signed by: Abdiaftah Conway M.D. Sandra Bauman MD IMG XR PROCEDURES Final Result documented in this encounter Visit Diagnoses Diagnosis Thoracic spine pain Pain in thoracic spine documented in this encounter Care Teams Powder Cutting Operator Relationship Specialty Start Date End Date Modesto Reyez DO PCP - General Internal Medicine 01/03/20 01/13/23 documented as of this encounter
--- OUTSIDE RECORDS SUMMARY | 2024-11-15 05:56 | XMS_ITS | Encounter Summary ---
Author Organization [facility] Address [address] [facility] [address] [place] [address] Care Team Providers Care Patcher Helper Name Role Phone Modesto Reyez DO Primary Care Provider [phone] Encounter Details Date Type Department Care Team (Late st Contact Info) Description 10/29/2022 Telephone [facility] Cardiology [address] [facility] [address] [place] [address] Myles Reyes MD [address] [facility] [address] [place] [address] Social History Tobacco Use Types Packs/Day Years Used Date Smoking Tobacco: Never Smokeless Tobacco: Never Alcohol Use Standard Drinks/Week Comments Not Currently 0 (1 standard drink = 0.6 oz pur e alcohol) Comments Unknown Sex and Gender Information Value Date Recorded Sex Assigned at Not on file Legal Sex Female 1:14 AM UROLOGIST Gender Identity Female 05/04/2020 3:33 PM CDT Sexual Orientation Not on file 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 OGIST * Telephone Encounter - Wanda Engle - 10/29/2022 9:35 AM UROLOGIST Pt daughter Mae is requesting a call back to discuss the pt medication Cb [phone] OGIST documented in this encounter Plan of Treatment Not on file documented as of this encounter Visit Diagnoses Not on filedocumented in this encounter Discontinued Medications Medication Sig Discontinue Reason Start Date End Da te furosemide (LASIX ORAL) Take 60 mg by mouth daily 60 mg 10/29/2022 documented as of this encounter Care Teams Patcher Helper Relationship Specialty Start Date End Date Modesto Reyez DO PCP - General Internal Medicine 01/03/20 01/13/23 documented as of this encounter
--- OUTSIDE RECORDS SUMMARY | 2024-11-15 05:56 | XMS_ITS | Encounter Summary ---
Author Organization [facility] Address [address] [place] [address] Phone Care Team Providers Care Residential Builder Name Role Phone Modesto Reyez Primary Care Provider [phone] Ni Armas RN Unavailable Lizette vailable Reason for Referral * (Routine) - Closed Specialty Diagnoses / Procedures Referred By Contac t Referred To Contact Diagnoses ILD (interstitial lung disease) (CMS/HCC) ([facility]) Procedures Pulmonary Function Test -[facility]- [facility]; Spirometry, Oxygen Assessment Titration Renetta Goodson MD [address] [place] [address] Phone: tel: fax: Referral ID Status Reason Start Date Expiration Date Visits Re quested Visits Authorized [id number] Closed 06/15/2022 07/15/2023 1 1 NIUM SULFATE OPERATOR Reason for Visit * (Routine) - Closed Specialty Diagnoses / Procedures Referred By Contac t Referred To Contact Diagnoses ILD (interstitial lung disease) ([facility]) ([facility]) Procedures Pulmonary Function Test -[facility]- [facility]; Spirometry, Oxygen Assessment Titration Renetta Goodson MD [address] [place] [address] Phone: tel: fax: Referral ID Status Reason Start Date Expiration Date Visits Re quested Visits Authorized [id number] Closed 06/15/2022 07/15/2023 1 1 Encounter Details Date Type Department Care Team (Latest Contact Info) Description 01/11/2023 7:29 AM AMMONIUM SULFATE OPERATOR - 01/11/2023 11:59 PM AMMONIUM SULFATE OPERATOR Hospital Encounter [facility] Pulmonary [address] [facility] [address] [place] [address] ILD (interstitial lung disease) ([facility]/HCC) ([facility]) Discharge Disposition: Discharge to home or self care Social History Tobacco Use Types Packs/Day Years Used Date Smoking Tobacco: Never Smokeless Tobacco: Never Alcohol Use Standard Drinks/Week Comments Not Currently 0 (1 standard drink = 0.6 oz pur e alcohol) Comments Unknown Sex and Gender Information Value Date Recorded Sex Assigned at Not on file Legal Sex Female 1:14 AM AMMONIUM SULFATE OPERATOR Gender Identity Female 05/04/2020 3:33 PM CDT Sexual Orientation Not on file 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 file [...] Diagnosis Comments PULMONARY FUNCTION TEST (PFT) Routine 01/11/2023 7:59 AM AMMONIUM SULFATE OPERATOR ILD (interstitial lung disease) (CMS/HCC) ([facility]) documented in this encounter Results * Pulmonary Function Test - (01/11/2023 7:59 AM AMMONIUM SULFATE OPERATOR) FVC PRE 0.98 L [facility] FVC %PRE PRED 38 % [facility] FEV1 PRE 0.86 L [facility] FEV1 %PRE PRED 43 % [facility] FEV1/FVC PRE 88.2 % [facility] Anatomical Region Laterality Modality PFT 01/11/2023 7:41 AM AMMONIUM SULFATE OPERATOR Narrative 01/15/2023 9:45 PM AMMONIUM SULFATE OPERATOR Table formatting from the original result was not included. [facility] of Pulmonary & Critical Care Medicine [address] [place] [address]; [place] [address]; [place], [place] ??[address]; [phone] Pulmonary Function Laboratory Pulmonary Stress Test Simple/Oxygen Assessment Patient: Ayanna Cash Date: 01/11/2023 : 1950 Ht: 62 IN Wt: 240 LBS Time (min) Distance (ft)/ Ozuna O2 L/M SpO2 HR Kaitlin* BP FEV1 % Pred Rest: ??RA 98 69 0 152/79 0.86 43 % ? Walk/Bike: 1 ??RA/2 88/96 86/97 0 ? 2 ??2 95 107 5 ? 3 ? 4 ? 5 ? 6 min 0 sec ? Recovery: 1 ? 3 ?*Kaitlin rate of perceived exertion (1-10 dyspnea scale) ??Victor M, CHEST 2003; [id number] Walk Test Summary: Six Minute Walk Distance: 100 ft Six-minute Walk Work [distance (m) x body wt (kg)]: 3312 kg.m (normal >60,000kg.m) Oxygen required to maintain SpO2 greater than 90% during six minutes of walkin L/M Comments: O2A- STOPPED DUE TO SOB AND LEG PAIN. Interpretation: Breathing room air, SpO2 is normal at rest and during exercise sufficient to increase pulse from 69 to 107 b/min, SpO2 is falls to hypoxemic levels. On this basis, SpO2 is adequate at rest breathing room air and while walking breathing supplemental O2 at 2 L/min. This level of exercise is associated with no significant change of FEV1. ?? Dallas Briceño M.D. By signing this report, the attending pulmonary physician certifies that he/she has personally reviewed and interpreted the graphic and numerical data associated with this pulmonary function study and has reviewed and /or edited a preliminary draft report and agrees with the written final report. PFT performed at:->[facility]FT [facility]- [facility] Procedure:->Spirometry Procedure:->Oxygen Assessment Titration Renetta Jazmyn Hamzah MD PFT ORDERABLES Final Res ult documented in this encounter Visit Diagnoses Diagnosis ILD (interstitial lung disease) (CMS/HCC) (HCC) Postinflammatory pulmonary fibrosis documented in this encounter Care Teams Residential Builder Relationship Specialty Start Date End Date Modesto Reyez DO PCP - General Internal Medicine 01/03/20 01/13/23 Ni Armas, RN Registered Nurse Pulmonary Disease 01/11/23 documented as of this encounter
--- OUTSIDE RECORDS SUMMARY | 2024-11-15 05:56 | XMS_ITS | Encounter Summary ---
Author Organization [facility] Address [address] [place] [address] Phone Care Team Providers Care Oil Pipe Inspector Helper Name Role Phone Modesto Reyez DO Primary Care Provider [phone] Encounter Details Date Type Department Care Team (Late st Contact Info) Description 08/24/2022 9:50 AM CDT Lab [facility] Endocrinology Metabolism and Lipid [address] 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 Not on file Not on file documented as of this encounter Plan of Treatment Not on file documented as of this encounter Procedures Procedure Name Priority Date/Time Associated Diagnosis Comments CBC WITH AUTO DIFFERENTIAL Routine 08/24/2022 9:45 AM CDT 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
--- OUTSIDE RECORDS SUMMARY | 2024-11-15 05:56 | XMS_ITS | Encounter Summary ---
Author Organization [facility] Address [address] [place] [address] Care Team Providers Care Inspector Plumbing Name Role Phone Modesto Reyez Primary Care Provider [phone] Reason for Visit * Reason Comments Follow-up 3-4 mo f/u Atrial Fibrillation Chronic HF Encounter Details Date Type Department Care Team (Late st Contact Info) Description 12/27/2022 9:30 AM HYDRO PLANT SITE MANAGER Office Visit [facility] Cardiology [address] [place] [address] Myles Reyes MD [address] [facility] [address] [place] [address] Chronic heart failure with preserved ejection fraction (CMS/HCC) (HCC) (Primary Dx); Longstanding persistent atrial fibrillation (CMS/HCC) (HCC); Primary hypertension; Chronic respiratory failure with hypoxia (CMS/HCC) (HCC); ILD (interstitial lung disease) (CMS/HCC) (HCC); STARR on CPAP; Rheumatoid arthritis, involving unspecified site, unspecified whether rheumatoid factor present (HCC); Morbid obesity with BMI of 45.0-49.9, adult (CMS/HCC) (HCC); Chronic anticoagulation; History of pulmonary embolus (PE); Lipid screening Social History Tobacco Use Types Packs/Day Years Used Date Smoking Tobacco: Never Smokeless Tobacco: Never Alcohol Use Standard Drinks/Week Comments Not Currently 0 (1 standard drink = 0.6 oz pur e alcohol) Comments Unknown Sex and Gender Information Value Date Recorded Sex Assigned at Not on file Legal Sex Female 1:14 AM HYDRO PLANT SITE MANAGER Gender Identity Female 05/04/2020 3:33 PM CDT Sexual Orientation Not on file 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 Not on file Not on file documented as of this encounter Last Filed Vital Signs Vital Sign Reading Time Taken Comments Blood Pressure 126/68 12/27/2022 9:38 AM HYDRO PLANT SITE MANAGER Pulse 71 12/27/2022 9:38 AM HYDRO PLANT SITE MANAGER Temperature - - Respiratory Rate - - Oxygen Saturation 97% 12/27/2022 9:38 AM HYDRO PLANT SITE MANAGER with O2 Inhaled Oxygen Concentration - - Weight 108.4 kg (239 lb) 12/27/2022 9:38 AM HYDRO PLANT SITE MANAGER per pt Height 157.5 cm (5' 2 ) 12/27/2022 9:38 AM HYDRO PLANT SITE MANAGER Body Mass Index 43.71 12/27/2022 9:38 AM HYDRO PLANT SITE MANAGER documented in this encounter Progress Notes * Myles Reyes MD - 12/27/2022 9:30 AM CST [facility] DATE OF VISIT: 12/27/2022 CHIEF COMPLAINT Chief Complaint Patient presents with Follow-up 3-4 mo f/u Atrial Fibrillation Chronic HF ASSESSMENT Diagnoses and all orders for this visit: Chronic heart failure with preserved ejection fraction (CMS/HCC) (HCC) (Primary) Longstanding persistent atrial fibrillation (CMS/HCC) (HCC) Primary hypertension Chronic respiratory failure with hypoxia (CMS/HCC) (HCC) ILD (interstitial lung disease) (CMS/HCC) (HCC) STARR on CPAP Rheumatoid arthritis, involving unspecified site, unspecified whether rheumatoid factor present (HCC) Morbid obesity with BMI of 45.0-49.9, adult (CMS/HCC) (HCC) Chronic anticoagulation History of pulmonary embolus (PE) Lipid screening - POCT lipid panel PLAN/RECOMMENDATIONS 1. AFib historically paroxysmal persistent of [...] medication compliance, and low-sodium diet. -Toprol XL 50 mg daily for now 3. Compensated, chronic HFpEF NYHA class III sxs confounded by chronic hypoxic respiratory failure.CHF counseling performed. Follow daily weight, less than 2 g daily sodium intake, medication compliance. Call w/ wt gain >3lb in 24 hrs or worsening edema and/or FALCON. -Doing better with managing her clinical risk factors, contribute to edema, heart failure includingbut not limited to morbid obesity, STARR, RA, dietary lifestyle and inconsistency with recommendations. -Continue Lasix 60mg daily and KCl to 20MEQ daily. -She has not been compliant with sodium and diet restrictions as previously counseled. Stressed theimportance of consistent compliance with recommendations as her edema is multifactorial but exacerbated by lack of activity, sedentary lifestyle, excess sodium intake, STARR, obesity. -plan to repeat echocardiogram after next visit to assess LV function, valve pathology, pulmonary pressures, chamber size. 4. Compliance with medications, recommendations follow-up once [...] Weight loss, exercise, reduction in caloric intake. Over [...] was previously followed by Dr. Parker. Her hop trainer is Dr. Norman. Her certified green building engineer is Dr. Kobe Gerard. She presented to [facility] on 01/01/2020 with complaint of worsening shortness [...] CPAP machine nightly, but sometimes remove sit longterm through the night. PCP follows her INRs [...] trying to lose some weight, following a 5143-7830 Na restriction. Now using a foot pedal [...] 09/29/21 CAT visit-On 09/21/21 she went to [facility] ER for complaint of worsening shortnessof breath. [...] Norman has referred her to pulmonology at [facility] and that appointment is next month. 12-lead ECG performed in the office today was independently interpreted by me and showed sinus rhythm, normal axis and normal intervals, rate 88 beats per minute 11/02/21 Says not feeling any better at all after admission to [place] with influenza B hurts to doeverything takes a lot out of her, no energy or appetite, SOB same as before. Attributes a lot to being off her pain meds including Hydroxychloroquine and Methotrexate for a while while in hospital. On CPAP. Not much edema though. Pain is mostly in shoulders and hands. Uses heating pad and Tylenol.Saw PCP recently. Sees Pulm at [place] tomorrow. Using 2L O2 at rest 4L O2 with activity. She notes her O2 drops to 85% on 4L still. Rheum adjusting meds on prednisone for 1 week without noted improvement thus far. Has PT coming into home. 04/17/22 Admitted to [place] with ILD and CHF admits she hasn't [...] CAT visit - she was hospitalized at [place] 05/25-05/26 for pulmonary edema, tested positive for COVID, treated for rib fractures due to a fall 2 days prior. Then hospitalized at [place] 05/27-06/07for treatment of pneumonia (bacterial verses COVID) / COPD exacerbation, diastolic heart failure exacerbation. She became bradycardic on telemetry (heart rate 30-40 with pause up to 3 seconds) so remdesivir was stopped and metoprolol was stopped. IV furosemide caused MIKE so she was discharged without furosemide but it has since been restarted in [facility] re[facility] (currently she is at [facility] in [place]). When she is doing physical therapy her heart rate will go in the 150s.She cannot feel the tachycardia. She denies any bleeding problems. She states the swelling in her le gs ???goes up and down?? and she is [...] per recnet Renal visit. Here with daughter. MEDICAL HISTORY Past Medical History: Diagnosis Date Atrial fibrillation (CMS/HCC) ([facility]) Cataracts, bilateral CHF (congestive heart failure) (CMS/HCC) ([facility]) Depression 12/2021 Diastolic dysfunction Diverticulitis H/O section [...] capsule Eliquis 5 mg tablet furosemide (LASIX) 20 mg tablet hydroxychloroquine (PLAQUENIL) 200 mg tablet [...] and are negative. PHYSICAL EXAM Vitals BP 126/68 (BP Location: Right arm, Patient Position: Sitting) Pulse 71 Ht 157.5 cm (5' 2 ) Wt 108.4 kg (239 lb) SpO2 97% BMI 43.71 kg/m?? Weight: 108.4 kg (239 lb) (per pt) Height: 157.5 cm (5' 2 ) Body mass index is 43.71 kg/m??. Physical Exam Vitals reviewed. Constitutional: General: [...] orders placed or performed in visit on 12/27/22 POCT lipid panel Result Value Ref Range Cholesterol, POC 153 mg/dL HDL, POC 88 mg/dL Triglycerides, POC 113 mg/dL LDL, Direct, POC 42 mg/dL Chol/HDL Ratio, POC 0.5 Non-HDL Cholesterol, POC 64 mg/dL Cholesterol Total, POC 153 mg/dL 09/29/2021 2D echocardiogram: [facility] EF 55-60% mild LVH, mild LVE, trivial MR, normal pulmonary pressures 10/04/2021 48 hour Holter monitor: Interpretation Summary AMBULATORY ATTENDANT COIN OPERATED LAUNDRY REPORT Patient Name: Ayanna Cash Date of [...] Clinical correlation is recommended. 12/29/21 2D Echo ([place]): EF 55-60% mild LVH moderate left atrial enlargement no MR unable to estimate PA systolic pressure. No . 07/11/22 Interpretation Summary AMBULATORY ATTENDANT COIN OPERATED LAUNDRY REPORT Patient Name: Ayanna Cash Date of [...] rate. Longest RR intervals appearedto have occurred lime kiln and recausticizing operator overnight hours presumably while asleep. Sinus rhythm was not appreciated. Conclusions: Persistent atrial fibrillation with intermittent atrial flutter with variable AV block controlled average heart rate with frequent episodes of rapid ventricular response which majority of patient's symptoms were associated with tachycardia. Sinus rhythm was not appreciated No pathologic or prolonged pauses or high-grade AV blocks identified. Personally reviewed EKG, electronic medical record, [facility] records, and bloodwork/lipids. Geetha Reyes MD, [facility] This note is dictated and transcribed using [employer] Direct Software. Facing Machine Operator variancesmay occur. Despite proofreading, typographical errors may occur. O PLANT SITE MANAGER documented in this encounter Plan of Treatment Not on file documented as of this encounter Procedures Procedure Name Priority Date/Time Associated Diagnosis Comments POCT LIPID PANEL Routine 12/27/2022 10:4 6 AM HYDRO PLANT SITE MANAGER Lipid screening documented in this encounter Results * POCT lipid panel (12/27/2022 10:46 AM HYDRO PLANT SITE MANAGER) Cholesterol, POC 153 mg/dL Comment:GLU = 100 HDL, POC 88 mg/dL Triglycerides, POC 113 mg/dL LDL Cholesterol POC 42 mg/dL Chol/HDL Ratio, POC 0.5 Non-HDL Cholesterol, POC 64 mg/dL Cholesterol Total, POC 153 mg/dL Capillary blood 12/27/2022 1 0:46 AM HYDRO PLANT SITE MANAGER Myles Reyes MD POINT OF CARE TEST ORDER KHOA Final Result documented in this encounter Visit Diagnoses Diagnosis Chronic heart failure with preserved ejection fraction (CMS/HCC) (HCC)- Primary Longstanding persistent atrial fibrillation (CMS/HCC) (HCC) Primary hypertension Unspecified essential hypertension Chronic respiratory failure with hypoxia (CMS/HCC) (HCC) ILD (interstitial lung disease) (CMS/HCC) (HCC) Postinflammatory pulmonary fibrosis STARR on CPAP Rheumatoid arthritis, involving unspecified site, unspecified whether rheumatoid factor present (HCC) Morbid obesity with BMI of 45.0-49.9, adult (HCC) Chronic anticoagulation Encounter for long-term (current) use of anticoagulants History of pulmonary embolus (PE) Lipid screening Screening for lipoid disorders documented in this encounter Care Teams Inspector Plumbing Relationship Specialty Start Date End Date Modesto Reyez DO PCP - General Internal Medicine 01/03/20 01/13/23 documented as of this encounter
--- OUTSIDE RECORDS SUMMARY | 2024-11-15 05:57 | XMS_ITS | Encounter Summary ---
Author Organization [facility] Address [address] [place] [address] Care Team Providers Care Order Planner Name Role Phone Modesto Reyez Primary Care Provider [phone] Reason for Visit * Reason Onset Date Comments SNF Outreach 07/06/2022 Encounter Details Date Type Department Care Team (Late st Contact Info) Description 07/06/2022 Telephone [facility] Post Acute Care [address] [address] Thania Holland MA [address] [place] [address] [phone] SNF Outreach Social History Tobacco Use Types Packs/Day Years Used Date Smoking Tobacco: Never Smokeless Tobacco: Never Alcohol Use Standard Drinks/Week Comments Not Currently 0 (1 standard drink = 0.6 oz pur e alcohol) Comments Unknown Sex and Gender Information Value Date Recorded Sex Assigned at Not on file Legal Sex Female 1:14 AM BIG DATA DEVELOPER Gender Identity Female 05/04/2020 3:33 PM CDT Sexual Orientation Not on file 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 Mackenzie Chery's care. Patient's PCP is not with a [facility]. Patient's discharge summary hasbeen uploaded to patients chart and has been faxed to PCP for review. documented in this encounter Plan of Treatment Not on file documented as of this encounter Visit Diagnoses Not on filedocumented in this encounter Additional Health Concerns Infection Onset Date Last Indicated Resolved Time COVID: Recovered Comment:Added based on recent COVID infection. 06/17/2022 06/18/2022 10/15/2022 3:[address] documented as of this encounter Care Teams Order Planner Relationship Specialty Start Date End Date Modesto Reyez DO PCP - General Internal Medicine 01/03/20 01/13/23 documented as of this encounter
--- OUTSIDE RECORDS SUMMARY | 2024-11-15 05:57 | XMS_ITS | Encounter Summary ---
Author Organization [facility] Address [address] [place] [address] Care Team Providers Care Security Officers And Guards Name Role Phone Modesto Reyez DO Primary Care Provider [phone] Reason for Referral * Cardiology (Routine) - Closed Specialty Diagnoses / Procedures Referred By Contac t Referred To Contact Diagnoses Longstanding persistent atrial fibrillation (CMS/HCC) (HCC) Procedures Event Monitor, 30 Day Event Yolanda Soto NP [address] [address] Phone: tel: fax: [facility] Referral ID Status Reason Start Date Expiration Date Visits Re quested Visits Authorized [id number] Closed 06/22/2022 07/22/2023 1 1 Reason for Visit * Reason Comments Hospital Follow Up Encounter Details Date Type Department Care Team (Late st Contact Info) Description 06/22/2022 10:00 AM CDT Office Visit [facility] Cardiology [address] [id number] Yolanda Soto NP [address] [address] Longstanding persistent atrial fibrillation (CMS/HCC) (HCC) (Primary Dx); Chronic heart failure with preserved ejection fraction (CMS/HCC) (HCC); Chronic anticoagulation Social History Tobacco Use Types Packs/Day Years Used Date Smoking Tobacco: Never Smokeless Tobacco: Never Alcohol Use Standard Drinks/Week Comments Not Currently 0 (1 standard drink = 0.6 oz pur e alcohol) Comments Unknown Sex and Gender Information Value Date Recorded Sex Assigned at Not on file Legal Sex 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 Gender Identity Female 05/04/2020 3:33 PM CDT Sexual Orientation Not on file 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 Not on file Not on file Not on file documented as of this encounter Last Filed Vital Signs Vital Sign Reading Time Taken Comments Blood Pressure 126/76 06/22/2022 10:16 AM CDT Pulse 112 06/22/2022 10:16 AM CDT Temperature - - Respiratory Rate - - Oxygen Saturation 96% 06/22/2022 10:16 AM CDT Inhaled Oxygen Concentration - - Weight 117.5 kg (259 lb) 06/22/2022 10:16 AM CDT Height 157.5 cm (5' 2 ) 06/22/2022 10:16 AM CDT Body Mass Index 47.37 06/22/2022 10:16 AM CDT documented in this encounter Ordered Prescriptions Prescription Sig Dispense Quantity Refills Last Filled Start Date End Date metoprolol XL (TOPROL-XL) 25 mg extended release tabletIndications: Longstanding persistent atrial fibrillation (CMS/HCC) (HCC) Take 2 tablets (50 mg total) by mouth daily 60 tablet 11 06/22/2022 2 documented in this encounter Progress Notes * Yolanda Soto NP - 06/22/2022 10:00 AM CDT Images from the original note were not included. [facility] Cardiology [address] [place] [address] Date of Visit: 06/22/2022 Patient ID: Ayanna Cash 1950 Chief Complaint Patient presents with ??? Hospital Follow Up Ayanna Cash is a 72 y.o. female who is an established patient of Dr. Reyes with a history ofPAF and chronic diastolic heart failure returning for hospital follow-up. History of Present Illness: Ayanna Cash is a 72 y.o. female with a PMHx of rheumatoid arthritis, hypertension, hyperlipidemia, morbid obesity, STARR, diastolic heart failure, atrial fibrillation, and interstitial lung disease. She was on amiodarone and digoxin in the past , she had also had a successful cardioversion in the past. Mahamed in September 2019 showed EF 60%. She was previously followed by Dr. Parker. Her singing waiter or waitress is Dr. Norman. Her application lead is Dr. Kobe Gerard. She presented to [facility] on 01/01/2020 with complaint of worsening shortness [...] at 40 mg daily. Spironolactone was discontinued. ?? 02/09/20 HFU w/ CAT- she comes to [...] CPAP machine nightly, but sometimes remove sit care home through the night. PCP follows her [...] trying to lose some weight, following a [id number] Na restriction. Now using a foot pedal [...] 09/29/21 CAT visit-On 09/21/21 she went to [facility] ER for complaint of worsening shortnessof breath. [...] Norman has referred her to pulmonology at [facility] and that appointment is next month. 12-lead ECG performed in the office today was independently interpreted by me and showed sinus rhythm, normal axis and normal intervals, rate 88 beats per minute 11/02/21 Says not feeling any better at all after admission to [facility] with influenza B hurts to doeverything takes a lot out of her, no energy or appetite, SOB same as before. Attributes a lot to being off her pain meds including Hydroxychloroquine and Methotrexate for a while while in hospital. On CPAP. Not much edema though. Pain is mostly in shoulders and hands. Uses heating pad and Tylenol.Saw PCP recently. Sees Pulm at [facility] tomorrow. Using 2L O2 at rest 4L O2 with activity. She notes her O2 drops to 85% on 4L still. Rheum adjusting meds on prednisone for 1 week without noted improvement thus far. Has PT coming into home. 04/17/22 Admitted to [facility] with ILD and CHF admits she hasn't [...] CAT visit - she was hospitalized at [facility] 05/25-05/26 for pulmonary edema, tested positive for COVID, treated for rib fractures due to a fall 2 days prior. Then hospitalized at [facility] 05/27-06/07for treatment of pneumonia (bacterial verses COVID) / COPD exacerbation, diastolic heart failure exacerbation. She became bradycardic on telemetry (heart rate 30-40 with pause up to 3 seconds) so remdesivir was stopped and metoprolol was stopped. IV furosemide caused MIKE so she was discharged without furosemide but it has since been restarted in snf rehab (currently she is at [facility] 2[facility] in [place]). When she is doing physical therapy her heart rate will go in the 150s. She cannot feel the tachycardia. She denies any bleeding problems. She states the swelling in her legs ???goes up and down?? and she is having wraps placed by the staff there. Oxygen requirement remains the same. Records that I personally reviewed on the day of this visit include: (the interpretation is outlined in the HPI above) 05/10/2022 office note from myself, 06/07/2022 [facility] discharge summary I have also reviewed: allergies, current medications, past family history, past medical history, past social history, past surgical history and problem list Medical History: Past Medical History: Diagnosis Date ??? Atrial fibrillation (CMS/HCC) (HCC) ??? Cataracts, bilateral ??? CHF (congestive heart failure) (CMS/HCC) (HCC) ??? Depression 12/2021 ??? Diastolic dysfunction ??? Diverticulitis ??? H/O section ??? Heart disease ??? Hypertension ??? Obesity ??? Sleep apnea ??? Thyroid disease ??? Wears dentures Past Surgical History: Procedure Laterality Date ??? SECTION ??? CHOLECYSTECTOMY ? ? JOINT REPLACEMENT Knee replacement both (L) & (R) ??? THYROIDECTOMY Social History Tobacco Use ??? Smoking status: Never Smoker ??? Smokeless tobacco: Never Used Substance Use Topics ??? Alcohol use: Not Currently Alcohol/week: 0.0 standard drinks ??? Drug use: Never Family History Problem Relation Age of Onset ??? Hypertension Mother ??? Blood Clot Father ??? Clotting disorder Father ??? Rheum arthritis Father ??? No Known Problems Sister ??? No Known Problems Sister Review of Systems Constitutional: Positive for malaise/fatigue. Negative for diaphoresis, fever, weight gain and weight loss. HENT: Negative for hearing loss. Eyes: Positive for visual disturbance. Cardiovascular: Positive for leg swelling. Negative for chest pain, claudication, orthopnea, palpitations, paroxysmal nocturnal dyspnea and syncope. Respiratory: Positive for shortness of breath. Negative for cough, hemoptysis, snoring and wheezing. Hematologic/Lymphatic: Does not bruise/bleed easily. Skin: Negative for poor wound healing and rash. Musculoskeletal: Positive for joint pain and myalgias. Gastrointestinal: Negative for heartburn, nausea and vomiting. Genitourinary: Negative for hematuria. Neurological: Negative for dizziness, headaches and light-headedness. Psychiatric/Behavioral: Positive for depression. The patient is not nervous/anxious. Vital Signs: BP 126/76 (BP Location: Left arm, Patient Position: Sitting) Pulse 112 Ht 157.5 cm (5' 2 ) Wt117.5 kg (259 lb) SpO2 96% BMI 47.37 kg/m?? Physical Exam Constitutional: General: She is not in acute distress. Appearance: She is well-developed. She is obese. Comments: Seated in wheelchair. HENT: Head: Normocephalic and atraumatic. Nose: Comments: Wearing a mask Eyes: General: No scleral icterus. Conjunctiva/sclera: Conjunctivae normal. Neck: Vascular: No JVD. Trachea: No tracheal deviation. Cardiovascular: Rate and Rhythm: Tachycardia present. Rhythm irregular. Heart sounds: Normal heart sounds. No murmur heard. Comments: Rate 110-120 bpm Pulmonary: Effort: Pulmonary effort is normal. No respiratory distress. Comments: Course breath sounds bilateral bases; wearing supplemental oxygen via nasal cannula. Musculoskeletal: Comments: bilateral lower extremities not assessed, wearing wraps Skin: General: Skin is warm and dry. Neurological: Mental Status: She is alert and oriented to person, place, and time. Psychiatric: Mood and Affect: Mood normal. Behavior: Behavior normal. No Known Allergies Current Outpatient Medications: ??? acetaminophen 325 mg capsule, Take by mouth, Disp: , Rfl: ??? calcium carbonate-vit D3-min 600 mg calcium- 400 unit tablet, Take by mouth 2 (two) times a day, Disp: , Rfl: ??? cholecalciferol (VITAMIN D-3) 2000 unit tablet, Take 1,000 Units by mouth daily , Disp: , Rfl: ??? cholestyramine (QUESTRAN) 4 gram packet, , Disp: , Rfl: ??? cyanocobalamin 2,000 mcg tablet, Take 1,000 mcg by mouth daily , Disp: , Rfl: ??? DULoxetine DR (CYMBALTA) 20 mg capsule, Take 20 mg by mouth daily, Disp: , Rfl: ??? Eliquis 5 mg tablet, Take 5 mg by mouth 2 (two) times a day, Disp: , Rfl: ??? furosemide (LASIX ORAL), Take 60 mg by mouth daily 60 mg, Disp: , Rfl: ??? hydroxychloroquine (PLAQUENIL) 200 mg tablet, Take 200 mg by mouth 2 (two) times a day , Disp: , Rfl: ??? levothyroxine (SYNTHROID) 112 mcg tablet, Take 112 mcg by mouth daily, Disp: , Rfl: ??? lidocaine 5 % cream, Apply topically, Disp: , Rfl: ??? lisinopriL (PRINIVIL,ZESTRIL) 5 mg tablet, Take 5 mg by mouth daily, Disp: , Rfl: ??? loperamide (IMODIUM) 2 mg capsule, Take 2 mg by mouth 4 (four) times a day as needed for diarrhea, Disp: , Rfl: ??? phenazopyridine (PYRIDIUM) 200 mg tablet, TAKE 1 TABLET BY MOUTH THREE TIMES DAILY NEEDED FOR URINARY SYMPTOMS, Disp: , Rfl: ??? pravastatin (PRAVACHOL) 80 mg tablet, Take 80 mg by mouth daily, Disp: , Rfl: ??? predniSONE (DELTASONE) 5 mg tablet, Take 15 mg by mouth every morning, Disp: , Rfl: ??? sertraline (ZOLOFT) 50 mg tablet, Take 50 mg by mouth daily, Disp: , Rfl: ??? simethicone (MYLICON) 80 mg chewable tablet, Take 80 mg by mouth every 6 (six) hours as needed for flatulence, Disp: , Rfl: ??? traMADoL (ULTRAM) 50 mg tablet, Take 1 tablet (50 mg total) by mouth every 8 (eight) hours as needed for pain, Disp: 21 tablet, Rfl: 0 ??? trimethoprim (TRIMPEX) 100 mg tablet, Take 100 mg by mouth nightly at bedtime., Disp: , Rfl: ??? umeclidinium-vilanteroL (ANORO ELLIPTA) 62.5-25 mcg/actuation blister with device, Inhale 1 puff daily, Disp: 1 each, Rfl: 0 ??? abatacept (Orencia ClickJect) 125 mg/mL auto-injector, Inject 1 mL (125 mg total) under the skin once a week (Patient not taking: Reported on 06/22/2022), Disp: 4 mL, Rfl: 2 ??? cefdinir (OMNICEF) 300 mg capsule, , Disp: , Rfl: ??? metoprolol XL (TOPROL-XL) 25 mg extended release tablet, Take 2 tablets (50 mg total) by mouth daily, Disp: 60 tablet, Rfl: 11 ??? nitrofurantoin monohydrate (MACROBID) 100 mg capsule, TAKE 1 CAPSULE BY MOUTH EVERY 12 HOURS FOR 7 DAYS (Patient not taking: No sig reported), Disp: , Rfl: Lab Results Component Value Date POTASSIUM 4.2 06/06/2022 BUNSER 31 (H) 06/06/2022 CREATININE 1.44 (H) 06/06/2022 Lab Results Component Value Date WBC 10.2 (H) 06/02/2022 HGB 10.9 (L) 06/02/2022 HCT 34.8 (L) 06/02/2022 MCV 97.2 (H) 06/02/2022 PLT 320 03/09/2022 Assessment: Diagnoses and all orders for this visit: Longstanding persistent atrial fibrillation (CMS/HCC) (HCC) (Primary) - Event Monitor, 30 Day Event; Future - metoprolol XL (TOPROL-XL) 25 mg extended release tablet; Take 2 tablets (50 mg total) by mouth daily Chronic heart failure with preserved ejection fraction (CMS/[facility]) ([facility]) Chronic anticoagulation Plan/Recommendations: During recent hospitalization she was bradycardic with pauses up to 3 seconds and therefore metoprolol was stopped. Currently she is in AFib with RVR, asymptomatic. Her previous dose of metoprolol was 125 mg daily. I am going to restart metoprolol succinate at [address] a 14 day event monitor to assess her heart rate and assess for recurrence of pauses. She was treated for diastolic heart failure exacerbation during recent hospitalization for pneumonia. Continue furosemide 60 mg daily. BMP is being drawn weekly at sn[facility] rehab to monitor renal function. She is tolerating systemic oral anticoagulation. Continue Eliquis for stroke risk reduction. Return to the office to see Dr. Reyes in 4 months. Call us sooner with questions or concerns. Keep the previously scheduled follow-up visit with Dr. Reyes in August. I will follow-up with her over the phone about the results of the event monitor once available and adjust dose of metoprololif indicated. 06/22/2022 CRISTEL Abdi- Nurse Practitioner with [facility] This note is dictated and transcribed using [employer]. Shoe Dresser variancesmay occur. Despite proofreading, typographical errors may occur. Cosigned by Myles Reyes MD at 06/22/2022 2:53 PM CDT documented in this encounter Plan of Treatment Not on file documented as of this encounter Results * Event Monitor, 30 Day Event (07/11/2022 1:30 PM CDT) Anatomical Region Laterality Modality Other Narrative 07/11/2022 1:38 PM CDT AMBULATORY CARBIDE GRINDER REPORT Patient Name: Ayanna Cash Date of : 1950 ?? Requesting Physician: Yolanda Soto NP Date of interpretation: 07/11/22 Type of monitor : ??14 day monitor Date of the study/Enrollment period: ??June 22, 2022 to July 05, 2022 Indication: ??Atrial fibrillation Quality of the study: Acceptable Interpretation: Underlying rhythm is persistent atrial fibrillation and intermittent atrial flutter with controlled average heart rate of 75 beats per minute with a minimum of 37 beats per minute occurring June 25 at 2:04 a.m. in association with a 2.2nd pause and a maximum 169 beats per minute occurring July 02 at 9:18 a.m.. ??Infrequent PVCs versus aberrant conduction totaling 2287. ??Premature atrial contractions were reported which is nonsensical given persistent atrial fibrillation and/or atrial flutter. ??Predominant underlying atrial fibrillation with intermittent atrial flutter with variable AV block. ??Longest pause 3.2 seconds occurring July 02 at 11:05 p.m.. ??Patient had 39 patient triggered symptom events in conjunction with this study. ??Patient with shortness of breath, heart racing, chest pain predominantly associated with atrial fibrillation and/or atrial flutter with rapid ventricular response occasional with atrial fibrillation with controlled heart rate. 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 ??Sinus rhythm was not appreciated. ?? Conclusions: 1. Persistent atrial fibrillation with intermittent atrial flutter with variable AV block controlled average heart rate with frequent episodes of rapid ventricular response which majority of patient's symptoms were associated with tachycardia. 2. Sinus rhythm was not appreciated 3. No pathologic or prolonged pauses or high-grade AV blocks identified. Geetha Reyes MD, [facility] 07/11/22 Voice recognition software was used to complete this document, therefore, financial sales representative variances may occur. Procedure Note Myles Reyes MD - 07/11/2022 Images from the original note were not included. AMBULATORY CARBIDE GRINDER REPORT Patient Name: Ayanna Cash Date of : 1950 Requesting Physician: Yolanda Soto NP Date of interpretation: 07/11/22 Type of monitor : 14 day monitor Date of the study/Enrollment period: June 22, 2022 to July 05, 2022 Indication: Atrial fibrillation Quality of the study: Acceptable Interpretation: Underlying rhythm is persistent atrial fibrillation and intermittentatrial flutter with controlled average heart rate of 75 beats per minutewith a minimum of 37 beats per minute occurring June 25 at 2:04 a.m. inassociation with a 2.2nd pause and a maximum 169 beats per minuteoccurring July 02 at 9:18 a.m.. Infrequent PVCs versus aberrantconduction totaling 2287. Premature atrial contractions were reportedwhich is nonsensical given persistent atrial fibrillation and/or atrialflutter. Predominant underlying atrial fibrillation with intermittentatrial flutter with variable AV block. Longest pause 3.2 secondsoccurring July 02 at 11:05 p.m.. Patient had 39 patient triggeredsymptom events in conjunction with this study. Patient with shortness ofbreath, heart racing, chest pain predominantly associated with atrialfibrillation and/or atrial flutter with rapid ventricular responseoccasional with atrial fibrillation with controlled heart rate. LongestRR intervals appeared to have occurred tool salvage worker overnight hourspresumably while asleep. Sinus rhythm was not appreciated. Conclusions: 1. Persistent atrial fibrillation with intermittent atrial flutter withvariable AV block controlled average heart rate with frequent episodes ofrapid ventricular response which majority of patient's symptoms wereassociated with tachycardia. 2. Sinus rhythm was not appreciated 3. No pathologic or prolonged pauses or high-grade AV blocks identified. Geetha Reyes MD, [facility] 07/11/22 Voice recognition software was used to complete this document, therefore,financial sales representative variances may occur. Yolanda Soto NP [facility] Final Result documented in this encounter Visit Diagnoses Diagnosis Longstanding persistent atrial fibrillation (CMS/HCC) (HCC)- Primary Chronic heart failure with preserved ejection fraction (CMS/HCC) (HCC) Chronic anticoagulation Encounter for long-term (current) use of anticoagulants Longstanding persistent atrial fibrillation (CMS/HCC) (HCC) documented in this encounter Historical Medications * This list may reflect changes made after this encounter. acetaminophen 325 mg capsule Take by mouth lidocaine 5 % cream Apply topically 2 loperamide (IMODIUM) 2 mg capsule Take 2 mg by mouth 4 (four) times a day as needed for diarrhea 2 simethicone (MYLICON) 80 mg chewable tablet Take 80 mg by mouth every 6 (six) hours as needed for flatulence 2 lisinopriL (PRINIVIL,ZESTRI L) 5 mg tablet Take 5 mg by mouth daily 2 added in this encounter Additional Health Concerns Infection Onset Date Last Indicated Resolved Time COVID: Recovered Comment:Added based on recent COVID infection. 06/17/2022 06/18/2022 10/15/2022 3:[address] documented as of this encounter Care Teams Security Officers And Guards Relationship Specialty Start Date End Date Modesto Reyez DO PCP - General Internal Medicine 01/03/20 01/13/23 documented as of this encounter
--- OUTSIDE RECORDS SUMMARY | 2024-11-15 05:57 | XMS_ITS | Encounter Summary ---
Author Organization [facility] Healthcare Address [address] [place] [address] Care Team Providers Care Speeder Hand Name Role Phone Modesto Reyez DO Primary Care Provider [phone] Reason for Visit * Reason Comments Abdominal Pain Headache Vomiting Encounter Details Date Type Department Care Team (Late st Contact Info) Description 07/20/2022 2:37 PM CDT - 07/20/2022 10:47 PM CDT Emergency [facility] Emergency Department [address] [place] [phone] Discharge Disposition: Left without being seen Social History Tobacco Use Types Packs/Day Years Used Date Smoking Tobacco: Never Smokeless Tobacco: Never Alcohol Use Standard Drinks/Week Comments Not Currently 0 (1 standard drink = 0.6 oz pur e alcohol) Comments Unknown Sex and Gender Information Value Date Recorded Sex Assigned at Not on file 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 Gender Identity Female 05/04/2020 3:33 PM CDT Sexual Orientation Not on file 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 Not on file Not on file Not on file documented as of this encounter Last Filed Vital Signs Vital Sign Reading Time Taken Comments Blood Pressure 94/56 07/20/2022 2:57 PM CDT Pulse 103 07/20/2022 2:57 PM CDT Temperature 37.5 ??C (99.5 ??F) 07/20/2022 2:57 PM CD T Respiratory Rate 18 07/20/2022 2:57 PM CDT Oxygen Saturation 94% 07/20/2022 2:57 PM CDT Inhaled Oxygen Concentration - - Weight - - Height - - Body Mass Index - - documented in this encounter Medications at Time [...] (112 mcg total) by mouth daily 11/11/2019 pravastatin (PRAVACHOL) 80 mg tablet Take 1 tablet (80 mg total) by mouth daily 01/22/2020 traMADoL (ULTRAM) 50 mg tablet Take 1 tablet (50 mg total) by mouth every 8 (eight) hours as needed for pain 21 tablet 07/03/2022 abatacept (Orencia ClickJect) 125 mg/mL auto-injector 06/22/2022 11/19/20 23 cholestyramine (QUESTRAN) 4 gram packet 06/09/2020 09/19/20 23 cyanocobalamin 2,000 mcg tablet Take 1,000 mcg by mouth daily 08/24/20 22 furosemide (LASIX ORAL) Take 60 mg by mouth daily 60 mg 10/29/20 22 hydroxychloroquine (PLAQUENIL) 200 mg tablet Take 1 tablet (200 mg total) by mouth 2 (two) times a day 11/26/2019 01/01/20 24 ipratropium-albute roL (DUO-NEB) 0.5-2.5 mg/3 mL nebulizer solutionIndication s:Chronic Obstructive Pulmonary Disease with Bronchospasms Take 3 mL by nebulization every 6 (six) hours as needed for wheezing 180 mL 07/03/2022 08/24/20 22 lidocaine (LIDODERM) 5 % Place 1 patch on the skin daily Remove & discard patch within 12 hours or as directed by . 30 patch 07/03/2022 09/13/20 22 lisinopriL (PRINIVIL,ZESTRIL) 5 mg tablet Take 2 tablets (10 mg total) by mouth daily 60 tablet 07/03/2022 08/24/20 22 loperamide (IMODIUM) 2 mg capsule Take 2 mg by mouth 4 (four) times a day as needed for diarrhea 08/24/20 22 metoprolol XL (TOPROL-XL) 25 mg extended release tabletIndications: Longstanding persistent atrial fibrillation (CMS/HCC) (HCC) Take 2 tablets (50 mg total) by mouth daily 60 tablet 11 07/04/2022 06/17/20 23 phenazopyridine (PYRIDIUM) 200 mg tablet TAKE 1 TABLET BY MOUTH THREE TIMES DAILY NEEDED FOR URINARY SYMPTOMS 11/10/2021 08/24/20 22 predniSONE (DELTASONE) 10 mg tablet Take 1 tablet (10 mg) by mouth every morning 30 tablet 2 03/20/2022 08/21/20 22 predniSONE (DELTASONE) 5 mg tablet Take 15 mg by mouth every morning 02/15/2022 08/21/20 22 sertraline (ZOLOFT) 50 mg tablet Take 50 mg by mouth daily 10/23/2021 08/24/20 22 simethicone (MYLICON) 80 mg chewable tablet Take 80 mg by mouth every 6 (six) hours as needed for flatulence 08/24/20 22 trimethoprim (TRIMPEX) 100 mg tabletIndications: Prevention of Bacterial Urinary Tract Infection Take 1 tablet (100 mg total) by mouth nightly at bedtime. 30 tablet 07/03/2022 11/28/19 23 documented as of this encounter Discharge Disposition Disposition Code Departure Means Destination Left without being seen documented in this encounter ED Notes * Caprice Sandoval RN - 07/20/2022 2:54 PM CDT 72 y/o F presents here with N/V/D, abdominal pain, and headaches. Symptoms began last night. Abdominal pain is generalized, crampy, and is non-radiating. +Chills. Patient COVID recovered from May. No sick contacts that she is aware of. documented in this encounter Plan of Treatment Not on file documented as of this encounter Visit Diagnoses Not on filedocumented in this encounter Additional Health Concerns Infection Onset Date Last Indicated Resolved Time COVID: Recovered Comment:Added based on recent COVID infection. 06/17/2022 06/18/2022 10/15/2022 3:[address] documented as of this encounter Care Teams Speeder Hand Relationship Specialty Start Date End Date Modesto Reyez DO PCP - General Internal Medicine 01/03/20 01/13/23 documented as of this encounter
--- OUTSIDE RECORDS SUMMARY | 2024-11-15 05:57 | XMS_ITS | Encounter Summary ---
Author Organization [facility] Healthcare Address [address] [place] [address] Care Team Providers Care Top Collar Maker Name Role Phone Modesto Reyez DO Primary Care Provider [phone] Encounter Details Date Type Department Care Team (Late st Contact Info) Description 06/07/2022 Orders Only Internal Medicine Rickie Marinelli MD [address] [facility] [address] [place] [address] Social History Tobacco Use Types Packs/Day Years Used Date Smoking Tobacco: Never Smokeless Tobacco: Never Alcohol Use Standard Drinks/Week Comments Not Currently 0 (1 standard drink = 0.6 oz pur e alcohol) Comments Unknown Sex and Gender Information Value Date Recorded Sex Assigned at Not on file Legal Sex Female 1:14 AM ART 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 Review on on 06/12 - IP Cornelia oCnn RN IP Review - original result from 05/22 scanned into media section, eligible to be reviewed 06/0205/31/2022 Eri Joyceded from the Screening question BPA, identifying patients that tested positive for COVID in the last 14 days and the result is from a facility outside [facility] . 05/22/2022 05/27/2022 06/17/2022 3:05 AM CDT documented as of this encounter Care Teams Top Collar Maker Relationship Specialty Start Date End Date Modesto Reyez DO PCP - General Internal Medicine 01/03/20 01/13/23 documented as of this encounter
--- OUTSIDE RECORDS SUMMARY | 2024-11-15 05:57 | XMS_ITS | Encounter Summary ---
Author Organization [facility] Address [address] [place] [address] Care Team Providers Care Cherry Cutter Name Role Phone Modesto Reyez Primary Care Provider Reason for Visit * Reason Onset Date Comments After Hours 06/07/2022 Encounter Details Date Type Department Care Team (Late st Contact Info) Description 06/07/2022 Telephone [facility] Post Acute Care [address] [phone] Mackenzie Chery MD [address] [place] [address] [id number] After Hours Social History Tobacco Use Types Packs/Day Years Used Date Smoking Tobacco: Never Smokeless Tobacco: Never Alcohol Use Standard Drinks/Week Comments Not Currently 0 (1 standard drink = 0.6 oz pur e alcohol) Comments Unknown Sex and Gender Information Value Date Recorded Sex Assigned at Not on file Legal Sex Female 1:14 AM 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 Gender Identity Female 05/04/2020 3:33 PM CDT Sexual Orientation Not on file 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 Not on file Not on file documented as of this encounter Miscellaneous Notes * Telephone Encounter - Mary Marshall CMA - 06/07/2022 7:26 PM CDT Provider Vik [phone] Magaly @[email or web address],RE:Ayanna Cash 46 new patient medication verification Left message to call exchange documented in this encounter Plan of Treatment Not on file documented as of this encounter Visit Diagnoses Not on filedocumented in this encounter Additional Health Concerns Infection Onset Date Last Indicated Resolved Time COVID19 Comment:06/02/2022 Patient is considered Immunosuppressed and will need 20 days of isolation. Review on on 06/12 - IP Cornelia Conn RN IP Review - original result from 05/22 scanned into media section, eligible to be reviewed 06/0205/31/2022 Eri Oliveros IAdded from the Screening question BPA, identifying patients that tested positive for COVID in the last 14 days and the result is from a facility outside [facility] . 05/22/2022 05/27/2022 06/17/2022 3:05 AM CDT COVID: Recovered Comment:Added based on recent COVID infection. 06/17/2022 06/18/2022 10/15/2022 3:[address] documented as of this encounter Care Teams Cherry Cutter Relationship Specialty Start Date End Date Modesto Reyez DO PCP - General Internal Medicine 01/03/20 01/13/23 documented as of this encounter
--- OUTSIDE RECORDS SUMMARY | 2024-11-15 05:57 | XMS_ITS | Encounter Summary ---
Author Organization [facility] Medical [facility] Address [address] [place] [address] Care Team Providers Care Spectacle Truer Name Role Phone Modesto Reyez DO Primary Care Provider [phone] Encounter Details Date Type Department Care Team (Late st Contact Info) Description 06/28/2022 NH/SNF Visit [facility] Post Acute Care [facility] [address] [place] [address] Ni Newman, VICTIMS ADVOCATE CLERK/SPECIALIST [address] [facility] [address] [place] [id number] Chronic heart failure with preserved ejection fraction (CMS/HCC) (HCC) (Primary Dx); Chronic respiratory failure with hypoxia (CMS/HCC) (HCC); Primary hypertension Social History Tobacco Use Types Packs/Day Years Used Date Smoking Tobacco: Never Smokeless Tobacco: Never Alcohol Use Standard Drinks/Week Comments Not Currently 0 (1 standard drink = 0.6 oz pur e alcohol) Comments Unknown Sex and Gender Information Value Date Recorded Sex Assigned at Not on file Legal Sex Female 1:14 AM STUDENT ASSISTANT Gender Identity Female 05/04/2020 3:33 PM CDT Sexual Orientation Not on file 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 [facility] Daily Progress Note Chief complaint of None. Interval History: 72-year-old female with past medical history significant for hypertension, hypothyroidism, i.e., hyperlipidemia, chronic respiratory failure with hypoxia, rheumatoid arthritis, longstanding persistent atrial fibrillation, depressive disorder, transferred from [facility], where she was admitted from 05/27- 06/07/2022. Patient presented in ER from rehab with chief complaints of lethargy from rehab facility. Of note patient was recently admitted at [facility] for worsening leg edema and subsequent mechanical fall at home. Tested positive for COVID on 05/22. CT with left-sided 3 rib fracture, GGO with underlying ILD. Treated with diuretics, and discharged on cefdinir (PNA tx) to [facility] rehab facility on 05/26. While at the facility patient remained lethargic and unable to work with therapy, the reason sent to be [facility] ER on 05/27. In ER tested positive for COVID again on 05/27, received ceftriaxone, azithromycin and 40 IV Lasix. Patient received remdesivir x2 but discontinued due to bradycardia/pauses with heart rate 30-40. Pulmonary status remains stable on home oxygen.For acute on chronic chf IV lasix transition to oral lasix home dose 60 mg but slowly trapered downand dcd as Cr elevated, to resume lasix on 06/10/22. Metoprolol 125 mg reduced for bradycardia an ddcd due to persistent normocardia with pauses. Need to f/u her Cardilogist OP. Completed 7 day Tx forPNA and UTI Azith Cipro started 05/22- 05/29/22.Pt has hx of chronic UTI on bactrim, f/u with UrologyOP. Ucx was positive for 100 k Ent. Faecalis (Amp resistent). Received linezolid 600 mg p.o. b.i.d.on 06/01-06/07, Zoloft placed on hold while on linezolid to avoid serotonin syndrome, resumed on discharge. Per lead business systems analyst her home Abatacept (DMARD) hled due to acute illness and resume after dc.Plaquenil to cont. Patient hemodynamically and clinically stabilized transferred to [facility] [place] furtherre[facility]. ?? She lives in a two-story home (with 14 steps) with her daughter. Uses walker 06/11: Patient resting in bed. She denies any concerns or complaints. Asks about labs & Cr - reviewed & stable. Edema stable to BLE - GEORGI wraps in place. VSS. 06/18: Patient is sitting upright in bed, alert and awake, reading newspaper. Patient has been feeling well, pain to left fractured ribs controlled. Lab results reviewed, overall controlled, unchanged. Patient has upcoming cardiology appointment on 06/22. She would like to keep her appointment, her daughter will pick her up for the visit. 06/21: Patient resting in bed. Reports L shoulder pain from pulleys in therapy, requesting lidoderm patch. Patient has been taking Bactrim 100mg [facility] group home for prophylaxis. She was not transferred on medication, but was not told to discontinue. She has noticed her urine has been cloudier than normal. Will resume Bactrim, encourage to increase fluids to flush sx. Monitor. 06/25: Patient resting in bed. She had f/u with VICTIMS ADVOCATE CLERK/SPECIALIST Charles 06/22 - Toprol XL increased to 50mg daily. Pulse stable, BP continues to fluctuate and be elevated. Labs pending today. She denies concerns. CGA with tx. Progressing. No nursing concerns. 06/26: Patient resting in bed. Denies concerns or complaints. Pulse stable but now BP fluctuating. Continues to progress in tx, discharge planning for next week. No nursing concerns. ?? COVID-19 vaccine: received 1 vaccine on 03/15. Refused any vaccine dose for now DVT Prophylaxis: eliquis 5 mg bid ?? Code status: full MDM: 86954 POS 31 A/P: Diagnoses and all orders for this visit: Chronic heart failure with preserved ejection fraction (CMS/HCC) ([facility]) (Primary) Assessment & Plan: Compensated. Continue Lasix 60mg daily. Monitor. Chronic respiratory failure with hypoxia (CMS/HCC) ([facility]) Assessment & Plan: Resp stable. Primary hypertension Assessment & Plan: BP fluctuates. Continues on Toprol 50mg daily, Lisinopril 5mg, Lasix 60mg daily. Monitor for need to increase medication if BP continues to remain elevated. Pulse stable. Recent Labs: 06/11: WBC 8.9, H/H 10.2/32.6, platelets 122, sodium 139, potassium 4.4, creatinine 1.2 06/18: WBC 8, H/H 9.7/31.1, platelets 178, na 139, K 3.4, BUN 24, creatinine 1.2, GFR 48. 8/: WBC 8.9, H/H 9.9/32.3, Plt 269 Labs 07/02 Medications reviewed today. Vital Signs: Vitals BP 165/91 Pulse 76 Temp 36.8 ??C (98.2 ??F) Resp 18 SpO2 96% Review of Systems: Review of Systems Constitutional: Negative for chills and fever. HENT: Negative. Eyes: Negative. Respiratory: Negative. Negative for cough, shortness of breath and wheezing. Cardiovascular: Negative for chest pain and leg swelling. Gastrointestinal: Negative. Negative for abdominal pain, constipation, diarrhea, nausea and vomiting. Endocrine: Negative. Genitourinary: Negative. Negative for dysuria and frequency. Musculoskeletal: Negative. Skin: Negative. Allergic/Immunologic: Negative. Neurological: Negative. Hematological: Negative. Psychiatric/Behavioral: Negative. All other systems reviewed and are negative. Breast: Negative. Physical Exam: Physical Exam Vitals and nursing note reviewed. Constitutional: General: She is not in acute distress. Appearance: She is not ill-appearing. HENT: Head: Normocephalic and atraumatic. Eyes: Extraocular Movements: Extraocular movements intact. Conjunctiva/sclera: Conjunctivae normal. Pupils: Pupils are equal, round, and reactive to light. Cardiovascular: Rate and Rhythm: Normal rate. Rhythm irregular. Pulmonary: Effort: Pulmonary effort is normal. Breath sounds: Normal breath sounds. Decreased air movement present. Abdominal: General: Bowel sounds are normal. There is no distension. Palpations: Abdomen is soft. Tenderness: There is no abdominal tenderness. Musculoskeletal: General: Normal range of motion. Right lower leg: Edema (trace) present. Left lower leg: Edema (trace) present. Skin: General: Skin is warm and dry. Neurological: General: No focal deficit present. Mental Status: She is alert and oriented to person, place, and time. Mental status is at baseline. Psychiatric: Mood and Affect: Mood normal. Behavior: Behavior normal. Ni Newman NP 06/28/2022 10:58 AM Voice recognition software [employer] Direct was used dictate and transcribe this document. Health Services Administrator variances may occur. Despite proofreading, typographical errors may occur. Cosigned by Mackenzie Chery MD at 06/30/2022 7:20 PM CDT documented in this encounter Miscellaneous Notes * Assessment & Plan Note - Ni Newman NP - 06/28/2022 10:57 AM CDT Associated Problem(s): Chronic respiratory failure with hypoxia (CMS/HCC) (HCC) Resp stable. * Assessment & Plan Note - Ni Newman NP - 06/28/2022 10:56 AM CDT Associated Problem(s): Primary hypertension BP fluctuates. Continues on Toprol 50mg daily, Lisinopril 5mg, Lasix 60mg daily. Monitor for need to increase medication if BP continues to remain elevated. Pulse stable. * Assessment & Plan Note - Ni Newman NP - 06/28/2022 10:56 AM CDT Associated Problem(s): Chronic heart failure with preserved ejection fraction (CMS/HCC) (HCC) (Resolved 10/01/2023) Compensated. Continue Lasix 60mg daily. Monitor. documented in this encounter Plan of Treatment Not on file documented as of this encounter Visit Diagnoses Diagnosis Chronic heart failure with preserved ejection fraction (CMS/HCC) (HCC)- Primary Chronic respiratory failure with hypoxia (CMS/HCC) (HCC) Primary hypertension Unspecified essential hypertension documented in this encounter Additional Health Concerns Infection Onset Date Last Indicated Resolved Time COVID: Recovered Comment:Added based on recent COVID infection. 06/17/2022 06/18/2022 10/15/2022 3:[address] documented as of this encounter Care Teams Spectacle Truer Relationship Specialty Start Date End Date Modesto Reyez DO PCP - General Internal Medicine 01/03/20 01/13/23 documented as of this encounter
--- OUTSIDE RECORDS SUMMARY | 2024-11-15 05:57 | XMS_ITS | Encounter Summary ---
Author Organization [facility] Address [address] [place] [address] Care Team Providers Care Traveling Clerk Name Role Phone Modesto Reyez DO Primary Care Provider [phone] Encounter Details Date Type Department Care Team (Late st Contact Info) Description 06/18/2022 NH/SNF Visit [facility] Post Acute Care [address] [id number] Mackenzie Chery MD [address] [place] [address] [id number] Acute on chronic diastolic CHF (congestive heart failure) (CMS/HCC) ([facility]) (Primary Dx); Closed fracture of multiple ribs of left side with routine healing, subsequent encounter; Longstanding persistent atrial fibrillation (CMS/HCC) (HCC) Social History Tobacco Use Types Packs/Day Years Used Date Smoking Tobacco: Never Smokeless Tobacco: Never Alcohol Use Standard Drinks/Week Comments Not Currently 0 (1 standard drink = 0.6 oz pur e alcohol) Comments Unknown Sex and Gender Information Value Date Recorded Sex Assigned at Not on file Legal Sex Female 1:14 AM PUBLIC HEALTH ASSISTANT Gender Identity Female 05/04/2020 3:33 PM CDT Sexual Orientation Not on file 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 [facility] Daily Progress Note Chief complaint of None. Interval History: 72-year-old female with past medical history significant for hypertension, hypothyroidism, i.e., hyperlipidemia, chronic respiratory failure with hypoxia, rheumatoid arthritis, longstanding persistent atrial fibrillation, depressive disorder, transferred from [facility], where she was admitted from 05/27- 06/07/2022. Patient presented in ER from rehab with chief complaints of lethargy from rehab facility. Of note patient was recently admitted at [facility] for worsening leg edema and subsequent mechanical fall at home. Tested positive for COVID on 05/22. CT with left-sided 3 rib fracture, GGO with underlying ILD. Treated with diuretics, and discharged on cefdinir (PNA tx) to [facility] rehab facility on 05/26. While at the facility patient remained lethargic and unable to work with therapy, the reason sent to be [facility] ER on 05/27. In ER tested positive [...] Completed 7 day Tx forPNA and UTI Azith, Cipro started 05/22- 05/29/22.Pt has hx of chronic UTI on bactrim, f/u with UrologyOP. Ucx was positive for 100 k Ent. Faecalis (Amp resistent). Received linezolid 600 mg p.o. b.i.d.on 06/01-06/07, Zoloft placed on hold while on linezolid to avoid serotonin syndrome, resumed on discharge. Per turf farmer her home Abatacept (DMARD) hled due to acute illness and resume after dc.Plaquenil to cont. Patient hemodynamically and clinically stabilized transferred to [facility] for furtherrehab. ?? She lives in a [...] daughter will pick her up for the visit.. ?? COVID-19 vaccine: received 1 vaccine on 03/15. Refused any vaccine dose for now DVT Prophylaxis: eliquis 5 mg bid ?? Code status: full MDM: 30037 POS 31 A/P: Diagnoses and all orders for this visit: Acute on chronic diastolic CHF (congestive heart failure) ([facility]) ([facility]) (Primary) Assessment & Plan: Edema lower extremity controlled. Will continue for now on Lasix 60 mg daily, renal function stableon this dose. Monitor lytes and weight. Closed fracture of multiple ribs of left side with routine healing, subsequent encounter Assessment & Plan: Pain remains controlled. Continue PT/OT Longstanding persistent atrial fibrillation ([facility]) ([facility]) Assessment & Plan: HR fluctuates. Continue Eliquis 5 mg b.i.d. will follow-up with cardiology on 06/22 Recent Labs: 06/11: WBC 8.9, H/H 10.2/32.6, platelets 122, sodium 139, potassium 4.4, creatinine 1.2 06/18: WBC 8, H/H 9.7/31.1, platelets 178, na 139, K 3.4, BUN 24, creatinine 1.2, GFR 48. Next labs 06/25 Medications reviewed today. Vital Signs: Vitals BP 158/84 Pulse 96 Temp 36.5 ??C (97.7 ??F) Resp 18 SpO2 98% Review of Systems: Review of Systems Constitutional: Negative for chills and fever. HENT: Negative. Eyes: Negative. Respiratory: Negative. Negative for cough, shortness of breath and wheezing. Cardiovascular: Negative. Negative for chest pain and leg swelling. Gastrointestinal: Negative. Negative for abdominal pain, constipation, diarrhea, nausea and vomiting. Endocrine: Negative. Genitourinary: Negative. Negative for dysuria. Musculoskeletal: Negative. Skin: Negative. Allergic/Immunologic: Negative. Hematological: Negative. Psychiatric/Behavioral: Negative. All other systems reviewed and are negative. Breast: Negative. Physical Exam: Physical Exam Vitals and nursing note reviewed. Constitutional: General: She is not in acute distress. HENT: Head: Normocephalic and atraumatic. Eyes: Extraocular [...] focal deficit present. Mental Status: She is alert. Mental status is at baseline. Psychiatric: Mood and Affect: Mood normal. Mackenzie Chery MD 06/18/2022 9:44 PM Voice recognition software mphoria Direct was used dictate and transcribe this document. Teletray Operator variances may occur. Despite proofreading, typographical errors may occur. documented in this encounter Miscellaneous Notes * Assessment & Plan Note - Mackenzie Chery MD - 06/18/2022 9:43 PM CDTAssociated Problem(s): Longstanding persistent atrial fibrillation (CMS/HCC) (HCC) HR fluctuates. Continue Eliquis 5 mg b.i.d. will follow-up with cardiology on 06/22 * Assessment & Plan Note - Mackenzie Chery MD - 06/18/2022 9:41 PM CDTAssociated Problem(s): Rib fracture (Resolved 07/03/2022) Pain remains controlled. Continue PT/OT * Assessment & Plan Note - Mackenzie Chery MD - 06/18/2022 9:40 PM CDTAssociated Problem(s): Acute on chronic diastolic CHF (congestive heart failure) (CMS/HCC) (HCC) (Resolved 06/25/2022) Edema lower extremity controlled. Will continue for now on Lasix 60 mg daily, renal function stableon this dose. Monitor lytes and weight. documented in this encounter Plan of Treatment Not on file documented as of this encounter Visit Diagnoses Diagnosis Acute on chronic diastolic CHF (congestive heart failure) (CMS/HCC) (HCC)- Primary Closed fracture of multiple ribs of left side with routine healing, subsequent encounter Longstanding persistent atrial fibrillation (CMS/HCC) (HCC) documented in this encounter Additional Health Concerns Infection Onset Date Last Indicated Resolved Time COVID: Recovered Comment:Added based on recent COVID infection. 06/17/2022 06/18/2022 10/15/2022 3:[address] documented as of this encounter Care Teams Traveling Clerk Relationship Specialty Start Date End Date Modesto Reyez DO PCP - General Internal Medicine 01/03/20 01/13/23 documented as of this encounter
--- OUTSIDE RECORDS SUMMARY | 2024-11-15 05:57 | XMS_ITS | Encounter Summary ---
Author Organization [facility] Address [address] [place] [address] Care Team Providers Care Employment Specialist Name Role Phone Modesto Reyez DO Primary Care Provider [phone] Encounter Details Date Type Department Care Team (Late st Contact Info) Description 06/08/2022 NH/SNF Visit [facility] Post Acute Care [address] [id number] Mackenzie Chery MD [address] [place] [address] [address] Acute on chronic diastolic CHF (congestive heart failure) ([facility]) ([facility]) (Primary Dx); Closed fracture of multiple ribs of left side, initial encounter; COVID-19; Pneumonia due to infectious organism, unspecified laterality, unspecified part of lung; Chronic respiratory failure with hypoxia (CMS/HCC) ([facility]); ILD (interstitial lung disease) (CMS/[facility]) ([facility]); Recurrent major depressive disorder, in partial remission ([facility]); Acquired hypothyroidism; Rheumatoid arthritis, involving unspecified site, unspecified whether rheumatoid factor present ([facility]); STARR on CPAP; Mixed hyperlipidemia; Acute cystitis without hematuria; History of pulmonary embolus (PE) Social History Tobacco Use Types Packs/Day Years Used Date Smoking Tobacco: Never Smokeless Tobacco: Never Alcohol Use Standard Drinks/Week Comments Not Currently 0 (1 standard drink = 0.6 oz pur e alcohol) Comments Unknown Sex and Gender Information Value Date Recorded Sex Assigned at Not on file Legal Sex Female 1:14 AM 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 Gender Identity Female 05/04/2020 3:33 PM CDT Sexual Orientation Not on file 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 [facility] [place] and Physical Date of service: 06/08/2022 Primary care provider: Modesto Reyez DO SUBJECTIVE lethargy HPI: This is a 72-year-old female with past medical history significant for hypertension, hypothyroidism, i.e., hyperlipidemia, chronic respiratory failure with hypoxia, rheumatoid arthritis, longstandingpersistent atrial fibrillation, depressive disorder, transferred from [facility], where she was admitted from 05/27- 06/07/2022. Patient presented in ER from rehab with chief complaints of lethargy from rehab facility. Of note patient was recently admitted at [facility] for worsening leg edema and subsequent mechanical fall at home. Tested positive for COVID on 05/22. CT with left-sided 3 rib fracture, GGO with underlying ILD. Treated with diuretics, and discharged on cefdinir (PNA tx) to [facility] rehab facility on 05/26. While at the facility patient remained lethargic and unable to work with therapy, the reason sent to be [facility] ER on 05/27. In ER tested positive for COVID again on 05/27, received ceftriaxone, azithromycin and 40 IV Lasix. Patient received remdesivir x2 but discontinued due to bradycardia/pauses with heart rate 30-40. Pulmonary status remains stable on home oxygen. For acute on chronic chf IV lasix transition to oral lasix home dose 60 mg but slowly trapered down and dcdas Cr elevated, to resume lasix on 06/10/22. Metoprolol 125 mg reduced for bradycardia an ddcd due to persistent normocardia with pauses. Need to f/u her Cardilogist OP. Completed 7 day Tx for PNA andKATIE Horn, Cipro started 05/22- 05/29/22.Pt has hx of chronic UTI on bactrim, f/u with Urology OP. Ucxwas positive for 100 k Ent. Faecalis (Amp resistent). Received linezolid 600 mg p.o. b.i.d. on 06/01-06/07, Zoloft placed on hold while on linezolid to avoid serotonin syndrome, resumed on discharge. Per wedding planning internship her home Abatacept (DMARD) hled due to acute illness and resume after dc. Plaquenil to cont. Patient hemodynamically and clinically stabilized transferred [place] [facility] [place]. She lives in a two-story home (with 14 steps) with her daughter. Uses walker Patient is seen for initial visit. She is sitting upright in bed, alert and awake. Patient reports COVID-19 vaccine: received 1 vaccine on 03/15. Refused any vaccine dose for now DVT Prophylaxis: eliquis 5 mg bid Code status: full MDM: 82192 (spent a total of 45 Face to Face minutes of which more than 50% of the time was spent in counseling and coordination of care. This time included: review of PMH, allergies, hospital stay, medication review and reconciliation) POS 31 A/P: Diagnoses and all orders for this visit: Acute on chronic diastolic CHF (congestive heart failure) ([facility]) ([facility]) (Primary) Assessment & Plan: TTE 01/16: EF 55-60%. Currently compensating well. Was on home Lasix 60 mg, discontinued inpatient due to MIKE. Recommended to resume on 06/10. Will resume with 20 mg daily, monitor creatinine, weightsand lytes. Follow-up cardiology outpatient Closed fracture of multiple ribs of left side, initial encounter Assessment & Plan: Pain well controlled. Continue Tylenol 650 Q 6 p.r.n., tramadol p.r.n.. Lidocaine patch. Incentive spirometer. PT/OT eval COVID-19 Assessment & Plan: Patient presented with lethargy, leg swelling, and cough. Tested + on 05/22/22 at [facility] and repeatedly positive at [facility] on 05/27/2022. s/p remdesivir x2 days for high risk->stopped for bradycardia/pauses w/HR 30-40. Needs full 20 days isolation before quarantine can be lifted ~06/12 per IP. Respiratory status stable, on home oxygen 2 L at rest, 4 L with exertion. Continue to monitor. Pneumonia due to infectious organism, unspecified laterality, unspecified part of lung Assessment & Plan: Completed tx with cefdinir for PNA and UTI at OSH starting 05/22 and completed 7 total days of antibiotics (Azith, CTX) on 05/29/22. ?? Chronic respiratory failure with hypoxia (CMS/HCC) ([facility]) Assessment & Plan: 2/2 ILD, STARR, COVID. Pulmonary status stable on her baseline oxygen requirement of 2L at rest, 4L with exertion.?? Continue Anoro Ellipta. Follow-up Pulmonary outpatient. Has an appointment with Pulmonary on 06/15 at [facility] for PFTs, may need to reschedule ILD (interstitial lung disease) (CMS/HCC) ([facility]) Assessment & Plan: At baseline on supplemental oxygen 2 L at rest, 4 L with exertion, prednisone 15 mg, abatacept on hold. Follows up with Pulmonary, Dr. Norman and wedding planning internship Dr. Bauman. PFT scheduled at [facility] 06/15 Recurrent major depressive disorder, in partial remission ([facility]) Assessment & Plan: Mood stable. Continue home med Zoloft 50 mg, Cymbalta Acquired hypothyroidism Assessment & Plan: Continue levothyroxine 112 mg daily. Rheumatoid arthritis, involving unspecified site, unspecified whether rheumatoid factor present ([facility]) Assessment & Plan: Held??abatacept (DMARD) during acute illness phase, per rheumatology it can be resumed on discharge. Will continue plaquenil, prednisone 15 mg daily. Follows up with wedding planning internship, Dr. Bauman outpatient. ?? STARR on CPAP Assessment & Plan: Compliant with CPAP. Continue using nighttime Mixed hyperlipidemia Assessment & Plan: Continue home med pravastatin 80 mg daily Acute cystitis without hematuria Assessment & Plan: Hx chronic UTis, on trimethoprim chronically->follows outpatient with Urology. WBC elevated to 10.6 on 05/29/22. Ux > 100,000 colonies/mL of Enterococcus faecium->Amp resistant. Treated with Linezolid 600mgPO BID on 06/01 - 06/07. Held Zoloft while on Linezolid (avoid serotonin syndrome). Resumed on discharge. History of pulmonary embolus (PE) Assessment & Plan: Patient has history of DVT and PE x 2, 1st episode was provoked and the 2nd episode occurred with discontinuation on Coumadin. Continue Eliquis 5 mg b.i.d. Past Medical History: Diagnosis Date ??? Atrial fibrillation (CMS/HCC) ([facility]) ??? Cataracts, bilateral ??? CHF (congestive heart failure) (CMS/HCC) (HCC) ??? Depression 12/2021 ??? Diastolic dysfunction ??? Diverticulitis ??? H/O section ??? Heart disease ??? Hypertension ??? Obesity ??? Sleep apnea ??? Thyroid disease ??? Wears dentures Past Surgical History: Procedure Laterality Date ??? SECTION ??? CHOLECYSTECTOMY ? ? JOINT REPLACEMENT Knee replacement both (L) & (R) ??? THYROIDECTOMY (Not in a hospital admission) No Known Allergies Social History Tobacco Use ??? Smoking status: Never Smoker ??? Smokeless tobacco: Never Used Substance and Sexual Activity ??? Drug use: Never ??? Sexual activity: Never Alcohol use: denies use Family History Problem Relation Age of Onset ??? Hypertension Mother ??? Blood Clot Father ??? Clotting disorder Father ??? Rheum arthritis Father ??? No Known Problems Sister ??? No Known Problems Sister Prior to Admission medications Medication Sig Start Date End Date Taking? Authorizing Provider abatacept (Orencia ClickJect) 125 mg/mL auto-injector Inject 1 mL (125 mg total) under the skin once a week 03/23/22 Sandra Bauman MD calcium carbonate-vit D3-min 600 mg calcium- 400 unit tablet Take by mouth 2 (two) times a day Joon Chang MD cholecalciferol (VITAMIN D-3) 2000 unit tablet Take 1,000 Units by mouth daily Joon Chang MD cholestyramine (QUESTRAN) 4 gram packet 06/09/20 Joon Chang MD cyanocobalamin 2,000 mcg tablet Take 1,000 mcg by mouth daily Joon Chang MD DULoxetine DR (CYMBALTA) 20 mg capsule Take 20 mg by mouth daily 10/24/21 Provider, Historical, MD Eliquis 5 mg tablet Take 5 mg by mouth 2 (two) times a day 04/11/21 Joon Chang MD hydroxychloroquine (PLAQUENIL) 200 mg tablet Take 200 mg by mouth 2 (two) times a day 11/26/19 Joon Chang MD levothyroxine (SYNTHROID) 112 mcg tablet Take 112 mcg by mouth daily 11/11/19 Joon Chang MD phenazopyridine (PYRIDIUM) 200 mg tablet TAKE 1 TABLET BY MOUTH THREE TIMES DAILY NEEDED FOR URINARY SYMPTOMS 11/10/21 Joon Chang MD pravastatin (PRAVACHOL) 80 mg tablet Take 80 mg by mouth daily 01/22/20 Joon Chang MD predniSONE (DELTASONE) 5 mg tablet Take 15 mg by mouth every morning 02/15/22 Joon Chang MD sertraline (ZOLOFT) 50 mg tablet Take 50 mg by mouth daily 10/23/21 Joon Chang MD traMADoL (ULTRAM) 50 mg tablet Take 1 tablet (50 mg total) by mouth every 8 (eight) hours as neededfor pain 06/07/22 Rickie Marinelli MD trimethoprim (TRIMPEX) 100 mg tablet Take 100 mg by mouth nightly at bedtime. 02/23/22 Joon Chang MD umeclidinium-vilanteroL (ANORO ELLIPTA) 62.5-25 mcg/actuation blister with device Inhale 1 puff daily 06/08/22 Edilma Chang MD OBJECTIVE Vital Signs: Vitals BP 158/85 Pulse 86 Temp 36.6 ??C (97.9 ??F) Resp 18 SpO2 99% Review of Systems: Review of Systems Constitutional: Positive for fatigue. HENT: Negative. Eyes: Negative. Respiratory: Negative. Cardiovascular: Negative. Gastrointestinal: Abdominal gas Endocrine: Negative. Genitourinary: Negative. Musculoskeletal: Negative. Skin: Negative. Allergic/Immunologic: Negative. Neurological: Positive for weakness. Hematological: Negative. Psychiatric/Behavioral: Negative. Breast: Negative. Physical Exam: Physical Exam Constitutional: General: She is not in acute distress. Appearance: She is obese. HENT: Head: Normocephalic and atraumatic. Mouth/Throat: Mouth: Mucous membranes are moist. Pharynx: Oropharynx is clear. Eyes: Conjunctiva/sclera: Conjunctivae normal. Pupils: Pupils are equal, round, and reactive to light. Cardiovascular: Rate and Rhythm: Normal rate. Rhythm irregular. Pulses: Normal pulses. Pulmonary: Effort: Pulmonary effort is normal. Breath sounds: Normal breath sounds. Abdominal: General: Bowel sounds are normal. Palpations: Abdomen is soft. Tenderness: There is no abdominal tenderness. Musculoskeletal: Cervical back: Normal range of motion. Right lower leg: Edema (trace) present. Left lower leg: Edema (trace) present. Skin: General: Skin is warm. Neurological: General: No focal deficit present. Mental Status: She is alert and oriented to person, place, and time. Mental status is at baseline. Psychiatric: Mood and Affect: Mood normal. Behavior: Behavior normal. Lab/Radiology/Diagnostic Review: No results found for this or any previous visit (from the past 72 hour(s)). ECG 12 lead Result Date: 05/27/2022 Narrative: Gene Nails MD 05/27/2022 3:56 PM ECG 12 lead Date/Time: 05/27/2022 3:52 PM Performed by: Gene Nails MD Authorized by: Luis Fernando Gomez MD Rate: ECG rate: 59 beats per minute ECG rate assessment: bradycardic Rhythm: Rhythm: sinus bradycardia Ectopy: Ectopy: none QRS: QRS axis: Normal QRS intervals: Normal Conduction: Conduction: normal ST segments: ST segments: Non-specific T waves: T waves: normal Previous ECG: Previous ECG: Compared to current Date of previous EC09/29/2021 Similarity: Changes noted Interpretation: Interpretation: non-specific Recommended Follow-up: Recommended follow up: further workup in the ED XR Chest Pa Lateral 2 Vw Result Date: 05/27/2022 Narrative: EXAMINATION: 2 view chest radiograph Impression: Small lung volumes. Increasing opacification of the left base is likely due to a combination of increasing atelectasis superimposed on a background of diffuse chronic interstitial lung disease. No pleural effusion or pneumothorax. Cardiomediastinal silhouette is normal. Dictated by: Jaciel Rashid MD The radiology attending physician has personally reviewed this study, and had reviewed and/or edited this written report and agrees with it. Electronically signed by: Sam Salas M.D. Current Medications: Mackenzie Siraj, MD Voice recognition software [employer] was used dictate and transcribe this document. Box Nailer variances may occur. Despite proofreading, typographical errors may occur. documented in this encounter Miscellaneous Notes * Assessment & Plan Note - Mackenzie Chery MD - 06/10/2022 11:33 AM CDTAssociated Problem(s): History of pulmonary embolus (PE) Patient has history of DVT and PE x 2, 1st episode was provoked and the 2nd episode occurred with discontinuation on Coumadin. Continue Eliquis 5 mg b.i.d. * Assessment & Plan Note - Mackenzie Chery MD - 06/10/2022 11:32 AM CDTAssociated Problem(s): Acute cystitis without hematuria (Resolved 06/11/2022) Hx chronic UTis, on trimethoprim chronically->follows outpatient with Urology. WBC elevated to 10.6 on 05/29/22. Ux > 100,000 colonies/mL of Enterococcus faecium->Amp resistant. Treated with Linezolid 600mgPO BID on 06/01 - 06/07. Held Zoloft while on Linezolid (avoid serotonin syndrome). Resumed on discharge. * Assessment & Plan Note - Mackenzie Chery MD - 06/10/2022 11:31 AM CDTAssociated Problem(s): Hyperlipidemia, unspecified Continue home med pravastatin 80 mg daily * Assessment & Plan Note - Mackenzie Chery MD - 06/10/2022 11:31 AM CDTAssociated Problem(s): STARR on CPAP Compliant with CPAP. Continue using nighttime * Assessment & Plan Note - Mackenzie Chery MD - 06/10/2022 11:29 AM CDTAssociated Problem(s): Rheumatoid arthritis (HCC) Held??abatacept (DMARD) during acute illness phase, per rheumatology it can be resumed on discharge. Will continue plaquenil, prednisone 15 mg daily. Follows up with wedding planning internship, Dr. Bauman outpatient. ?? * Assessment & Plan Note - Mackenzie Chery MD - 06/10/2022 11:27 AM CDTAssociated Problem(s): Longstanding persistent atrial fibrillation (CMS/HCC) (HCC) While inpatient had afib with slow ventricular rate with intermittent pauses up to 3 seconds, metoprolol 125 mg discontinued. Remdesivir dc'd due to bradycardia/pauses. Pt was continued on eliquis. Follow-up cardiology, Dr. Reyes/ Yolanda Soto, ZLUY on 06/22/22 10 am. * Assessment & Plan Note - Mackenzie Chery MD - 06/10/2022 11:27 AM CDTAssociated Problem(s): Hypothyroidism Continue levothyroxine 112 mg daily. * Assessment & Plan Note - Mackenzie Chery MD - 06/10/2022 11:25 AM CDTAssociated Problem(s): Recurrent major depressive disorder, in partial remission (HCC) Mood stable. Continue home med Zoloft 50 mg, Cymbalta * Assessment & Plan Note - Mackenzie Chery MD - 06/10/2022 11:22 AM CDTAssociated Problem(s): ILD (interstitial lung disease) (CMS/HCC) ([facility]) At baseline on supplemental oxygen 2 L at rest, 4 L with exertion, prednisone 15 mg, abatacept on hold. Follows up with Pulmonary, Dr. Norman and wedding planning internship Dr. Bauman. PFT scheduled at [facility] 06/15 * Assessment & Plan Note - Mackenzie Chery MD - 06/10/2022 11:20 AM CDTAssociated Problem(s): Chronic respiratory failure with hypoxia (CMS/HCC) ([facility]) 2/2 ILD, STARR, COVID. Pulmonary status stable on her baseline oxygen requirement of 2L at rest, 4L with exertion.?? Continue Anoro Ellipta. Follow-up Pulmonary outpatient. Has an appointment with Pulmonary on 06/15 at [facility] for PFTs, may need to reschedule * Assessment & Plan Note - Mackenzie Chery MD - 06/10/2022 11:18 AM CDTAssociated Problem(s): Pneumonia due to infectious organism (Resolved 06/11/2022) Completed tx with cefdinir for PNA and UTI at OSH starting 05/22 and completed 7 total days of antibiotics (Azith, CTX) on 05/29/22. ?? * Assessment & Plan Note - Mackenzie Chery MD - 06/10/2022 11:16 AM CDTAssociated Problem(s): COVID-19 (Resolved 07/03/2022) Patient presented with lethargy, leg swelling, and cough. Tested + on 05/22/22 at [facility] and repeatedly positive at [facility] on 05/27/2022. s/p remdesivir x2 days for high risk->stopped for bradycardia/pauses w/HR 30-40. Needs full 20 days isolation before quarantine can be lifted ~7/19 per IP. Respiratory status stable, on home oxygen 2 L at rest, 4 L with exertion. Continue to monitor. * Assessment & Plan Note - Mackenzie Chery MD - 06/10/2022 11:15 AM CDTAssociated Problem(s): Rib fracture (Resolved 07/03/2022) Pain well controlled. Continue Tylenol 650 Q 6 p.r.n., tramadol p.r.n.. Lidocaine patch. Incentive spirometer. PT/OT eval * Assessment & Plan Note - Mackenzie Chery MD - 06/10/2022 11:11 AM CDTAssociated Problem(s): Acute on chronic diastolic CHF (congestive heart failure) (CMS/HCC) ([facility]) (Resolved 06/25/2022) TTE 01/16: EF 55-60%. Currently compensating well. Was on home Lasix 60 mg, discontinued inpatient due to MIKE. Recommended to resume on 06/10. Will resume with 20 mg daily, monitor creatinine, weightsand lytes. Follow-up cardiology outpatient documented in this encounter Plan of Treatment Not on file documented as of this encounter Visit Diagnoses Diagnosis Acute on chronic diastolic CHF (congestive heart failure) (CMS/HCC) ([facility])- Primary Closed fracture of multiple ribs of left side, initial encounter COVID-19 Pneumonia due to infectious organism, unspecified laterality, unspecified part of lung Chronic respiratory failure with hypoxia (CMS/HCC) ([facility]) ILD (interstitial lung disease) (CMS/HCC) (HCC) Postinflammatory pulmonary fibrosis Recurrent major depressive disorder, in partial remission (HCC) Acquired hypothyroidism Unspecified hypothyroidism Rheumatoid arthritis, involving unspecified site, unspecified whether rheumatoid factor present (HCC) STARR on CPAP Mixed hyperlipidemia Acute cystitis without hematuria History of pulmonary embolus (PE) documented in this encounter Additional Health Concerns [...] the result is from a facility outside [facility] . 05/22/2022 05/27/2022 06/17/2022 3:05 AM CDT documented as of this encounter Care Teams Employment Specialist Relationship Specialty Start Date End Date Modesto Reyez DO PCP - General Internal Medicine 01/03/20 01/13/23 documented as of this encounter
--- OUTSIDE RECORDS SUMMARY | 2024-11-15 05:57 | XMS_ITS | Encounter Summary ---
Author Organization [facility] Address [address] [place] [address] Care Team Providers Care Asphalt Paving Foreman Name Role Phone Modesto Reyez DO Primary Care Provider [phone] Encounter Details Date Type Department Care Team (Late st Contact Info) Description 06/08/[address] 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 Metoprolol was stopped due to bradycardia and pauses. Discussed this with pts daughter. Pt is currently at [facility] in [place] for rehab. * Telephone Encounter - Noa Gaines RN - 06/08/2022 9:58 AM CDT LM on requesting return call to discuss. * Telephone Encounter - Leonie Cronin - 06/08/2022 8:39 AM CDT Pt daughter Mea states when pt was at [facility] they took her off metorpolol 100 mg and 25 mg. Requesting call back to discuss. Contact: documented [...] media section, eligible to be reviewed 06/0205/31/2022 Eir Oliveros IAdded from the Screening question BPA, identifying patients that tested positive for COVID in the last 14 days and the result is from a facility outside [facility] . 05/22/2022 05/27/2022 06/17/2022 3:05 AM CDT documented as of this encounter Care Teams Asphalt Paving Foreman Relationship Specialty Start Date End Date Modesto Reyez DO PCP - General Internal Medicine 01/03/20 01/13/23 documented as of this encounter
--- OUTSIDE RECORDS SUMMARY | 2024-11-15 05:57 | XMS_ITS | Encounter Summary ---
Author Organization [facility] Healthcare Address [address] [place] [address] Care Team Providers Care Fermenting Cellars Supervisor Name Role Phone Modesto Reyez DO Primary Care Provider [phone] Encounter Details Date Type Department Care Team (Late st Contact Info) Description 06/07/2022 Orders Only [facility] [address] [facility] [address] [place] [address] Rickie Marinelli MD [address] [facility] [address] [place], [place] [id number] Social History Tobacco Use Types Packs/Day Years Used Date Smoking Tobacco: Never Smokeless Tobacco: Never Alcohol Use Standard Drinks/Week Comments Not Currently 0 (1 standard drink = 0.6 oz pur e alcohol) Comments Unknown Sex and Gender Information Value Date Recorded Sex Assigned at Not on file Legal Sex Female 1:14 AM GRADER MEAT Gender Identity Female 05/04/2020 3:33 PM CDT Sexual Orientation Not on file 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 I sent a limited script to the facility [phone] Chang. documented in this encounter Plan of Treatment Not on file documented as of this encounter Visit Diagnoses Not on filedocumented in this encounter Discontinued Medications Medication Sig Discontinue Reason Start Date End Da te traMADoL (ULTRAM) 50 mg tablet Take by mouth every 8 (eight) hours as needed Reorder 12/21/2021 06/07/2022 documented as of this encounter Additional Health [...] the result is from a facility outside [facility] . 05/22/2022 05/27/2022 06/17/2022 3:05 AM CDT documented as of this encounter Care Teams Fermenting Cellars Supervisor Relationship Specialty Start Date End Date Modesto Reyez DO PCP - General Internal Medicine 01/03/20 01/13/23 documented as of this encounter
--- OUTSIDE RECORDS SUMMARY | 2024-11-15 05:57 | XMS_ITS | Encounter Summary ---
Author Organization [facility] Address [address] [place] [address] Care Team Providers Care Automobile Lights Assembler Name Role Phone Modesto Reyez DO Primary Care Provider [phone] Encounter Details Date Type Department Care Team (Late st Contact Info) Description 06/25/2022 NH/SNF Visit [facility] Post Acute Care [facility] [address] [place] [address] Ni Newman, LACE MACHINE OPERATOR [address] [facility] [address] [place] [id number] Chronic heart failure with preserved ejection fraction (CMS/HCC) (HCC) (Primary Dx); Longstanding persistent atrial fibrillation (CMS/HCC) (HCC); Acute pain of left shoulder; Chronic respiratory failure with hypoxia (CMS/HCC) (HCC) Social History Tobacco Use Types Packs/Day Years Used Date Smoking Tobacco: Never Smokeless Tobacco: Never Alcohol Use Standard Drinks/Week Comments Not Currently 0 (1 standard drink = 0.6 oz pur e alcohol) Comments Unknown Sex and Gender Information Value Date Recorded Sex Assigned at Not on file Legal Sex Female 1:14 AM PANEL GLUER Gender Identity Female 05/04/2020 3:33 PM CDT Sexual Orientation Not on file 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 [facility] [place] Daily Progress Note Chief complaint of None. Interval History: 72-year-old female with past medical history significant for hypertension, hypothyroidism, i.e., hyperlipidemia, chronic respiratory failure with hypoxia, rheumatoid arthritis, longstanding persistent atrial fibrillation, depressive disorder, transferred from [facility], where she was admitted from 05/27- 06/07/2022. Patient presented in ER from rehab with chief complaints of lethargy from rehab facility. Of note patient was recently admitted at [facility] for worsening leg edema and subsequent mechanical fall at home. Tested positive for COVID on 05/22. CT with left-sided 3 rib fracture, GGO with underlying ILD. Treated with diuretics, and discharged on cefdinir (PNA tx) to [facility] rehab facility on 05/26. While at the facility patient remained lethargic and unable to work with therapy, the reason sent to be [facility] ER on 05/27. In ER tested positive [...] avoid serotonin syndrome, resumed on discharge. Per cabin furnishings installer her home Abatacept (DMARD) hled due to acute illness and resume after dc.Plaquenil to cont. Patient hemodynamically and clinically stabilized transferred to [facility] [place]re[place]. ?? She lives in a [...] Patient has been taking Bactrim 100mg qhs terminologist for prophylaxis. She was not transferred on medication, but was not told to discontinue. She has noticed her urine has been cloudier than normal. Will resume Bactrim, encourage to increase fluids to flush sx. Monitor. 06/25: Patient resting in bed. She had f/u with LACE MACHINE OPERATOR Charles 06/22 - Toprol XL increased to 50mg daily. Pulse stable, BP continues to fluctuate and be elevated. Labs pending today. She denies concerns. CGA with tx. Progressing. No nursing concerns. ?? COVID-19 vaccine: received 1 vaccine on 03/15. Refused any vaccine dose for now DVT Prophylaxis: eliquis 5 mg bid ?? Code status: full MDM: 85906 POS 31 A/P: Diagnoses and all orders for this visit: Chronic heart failure with preserved ejection fraction (CMS/HCC) (HCC) (Primary) Assessment & Plan: TTE 01/16: EF 55-60%. Currently compensating well. Was on home Lasix 60 mg, discontinued inpatient due to MIKE. Recommended to resume on 06/10. Monitor creatinine, weights and lytes. Follow-up cardiology. Saw 06/22 - Toprol XL increased to 50mg. Remains well controlled. Longstanding persistent atrial fibrillation (CMS/HCC) ([facility]) Assessment & Plan: SEE ABOVE Acute pain of left shoulder Assessment & Plan: Improved Chronic respiratory failure with hypoxia (CMS/HCC) ([facility]) Assessment & Plan: Resp. Status stable. Continue Inhalers. Recent Labs: 06/11: WBC 8.9, H/H 10.2/32.6, platelets 122, sodium 139, potassium 4.4, creatinine 1.2 06/18: WBC 8, H/H 9.7/31.1, platelets 178, na 139, K 3.4, BUN 24, creatinine 1.2, GFR 48. 8/1: WBC 8.9, H/H 9.9/32.3, Plt 269 Medications reviewed today. Vital Signs: Vitals BP 141/81 Pulse 66 Temp 36.7 ??C (98 ??F) Resp 18 SpO2 99% Review of [...] normal. Behavior: Behavior normal. Ni Newman NP 06/25/2022 12:57 PM Voice recognition software [employer] Direct was used dictate and transcribe this document. Device Processing Engineer variances may occur. Despite proofreading, typographical errors may occur. Cosigned by Mackenzie Chery MD at 06/26/2022 5:45 PM CDT documented in this encounter Miscellaneous Notes * Assessment & Plan Note - Ni Newman NP - 06/25/2022 12:56 PM CDT Associated Problem(s): Longstanding persistent atrial fibrillation (CMS/HCC) (HCC) SEE ABOVE * Assessment & Plan Note - Ni Newman NP - 06/25/2022 12:56 PM CDT Associated Problem(s): Chronic heart failure with preserved ejection fraction (CMS/HCC) (HCC) (Resolved 10/01/2023) TTE 01/16: EF 55-60%. Currently compensating well. Was on home Lasix 60 mg, discontinued inpatient due to MIKE. Recommended to resume on 06/10. Monitor creatinine, weights and lytes. Follow-up cardiology. Saw 06/22 - Toprol XL increased to 50mg. Remains well controlled. * Assessment & Plan Note - Ni Newman NP - 06/25/2022 12:55 PM CDT Associated Problem(s): Acute pain of left shoulder (Resolved 06/28/2022) Improved * Assessment & Plan Note - Ni Newman NP - 06/25/2022 12:55 PM CDT Associated Problem(s): Chronic respiratory failure with hypoxia (CMS/HCC) (HCC) Resp. Status stable. Continue Inhalers. documented in this encounter Plan of Treatment Not on file documented as of this encounter Visit Diagnoses Diagnosis Chronic heart failure with preserved ejection fraction (CMS/HCC) (HCC)- Primary Longstanding persistent atrial fibrillation (CMS/HCC) (HCC) Acute pain of left shoulder Chronic respiratory failure with hypoxia (CMS/HCC) (HCC) documented in this encounter Additional Health Concerns Infection Onset Date Last Indicated Resolved Time COVID: Recovered Comment:Added based on recent COVID infection. 06/17/2022 06/18/2022 10/15/2022 3:[address] documented as of this encounter Care Teams Automobile Lights Assembler Relationship Specialty Start Date End Date Modesto Reyez DO PCP - General Internal Medicine 01/03/20 01/13/23 documented as of this encounter
--- OUTSIDE RECORDS SUMMARY | 2024-11-15 05:57 | XMS_ITS | Encounter Summary ---
Author Organization [facility] Address [address] [place] [address] Care Team Providers Care Scouring Machine Operator Name Role Phone Aissatou Modesto PADILLA Primary Care Provider [phone] Reason for Visit * Cardiology (Routine) - Closed Specialty Diagnoses / Procedures Referred By Contac t Referred To Contact Diagnoses Longstanding persistent atrial fibrillation (CMS/HCC) (HCC) Procedures Event Monitor, 30 Day Event Yolanda Soto NP [address] [facility] [address] [address] Phone: tel: fax: [facility] Referral ID Status Reason Start Date Expiration Date Visits Re quested Visits Authorized [id number] Closed 06/22/2022 07/22/2023 1 1 Encounter Details Date Type Department Care Team (Latest Contact Info) Description 06/22/2022 11:00 AM CDT Ancillary Procedure [facility] [address] [id number] Longstanding persistent atrial fibrillation (CMS/HCC) (HCC) Social History Tobacco Use Types Packs/Day Years Used Date Smoking Tobacco: Never Smokeless Tobacco: Never Alcohol Use Standard Drinks/Week Comments Not Currently 0 (1 standard drink = 0.6 oz pur e alcohol) Comments Unknown Sex and Gender Information Value Date Recorded Sex Assigned at Not on file Legal Sex Female 1:14 AM CHRONIC MANAGER Gender Identity Female 05/04/2020 3:33 PM CDT Sexual Orientation Not on file 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 Not on file Not on file documented as of this encounter Plan of Treatment Not on file documented as of this encounter Procedures Procedure Name Priority Date/Time Associated Diagnosis Comments EVENT MONITOR Routine 07/11/2022 1:30 PM CDT Longstanding persistent atrial fibrillation (CMS/HCC) (HCC) documented in this encounter Results * Event Monitor, 30 Day Event (07/11/2022 1:30 PM CDT) Anatomical Region Laterality Modality Other Narrative 07/11/2022 1:38 PM CDT AMBULATORY BARREL DEDENTING MACHINE OPERATOR REPORT Patient Name: Ayanna Cash Date of [...] ??Longest RR intervals appeared to have occurred director of early childhood overnight hours presumably while asleep. ??Sinus rhythm [...] high-grade AV blocks identified. Geetha Reyes MD, [facility] 07/11/22 Voice recognition software was used to complete this document, therefore, opening machine cleaner variances may occur. Procedure Note Myles Reyes MD - 07/11/2022 Images from the original note were not included. AMBULATORY BARREL DEDENTING MACHINE OPERATOR REPORT Patient Name: Ayanna Cash Date of [...] rate. LongestRR intervals appeared to have occurred director of early childhood overnight hourspresumably while asleep. Sinus rhythm was not appreciated. Conclusions: 1. Persistent atrial fibrillation with intermittent atrial flutter withvariable AV block controlled average heart rate with frequent episodes ofrapid ventricular response which majority of patient's symptoms wereassociated with tachycardia. 2. Sinus rhythm was not appreciated 3. No pathologic or prolonged pauses or high-grade AV blocks identified. Geetha Reyes MD, [facility] 07/11/22 Voice recognition software was used to complete this document, therefore,opening machine cleaner variances may occur. Yolanda Soto HOME CONNECT LPN [facility] Final Result documented in this encounter Visit Diagnoses Diagnosis Longstanding persistent atrial fibrillation (CMS/HCC) (HCC) documented in this encounter Additional Health Concerns Infection Onset Date Last Indicated Resolved Time COVID: Recovered Comment:Added based on recent COVID infection. 06/17/2022 06/18/2022 10/15/2022 3:[address] documented as of this encounter Care Teams Scouring Machine Operator Relationship Specialty Start Date End Date Modesto Reyez DO PCP - General Internal Medicine 01/03/20 01/13/23 documented as of this encounter
--- OUTSIDE RECORDS SUMMARY | 2024-11-15 05:57 | XMS_ITS | Encounter Summary ---
Author Organization [facility] Address [address] [place] [address] Care Team Providers Care Assignment Desk Assistant Name Role Phone Modesto Reyez DO Primary Care Provider [phone] Encounter Details Date Type Department Care Team (Late st Contact Info) Description 07/03/2022 NH/SNF Visit [facility] Post Acute Care [facility] [address] [place] [address] Ni Newman, SCABBLER [address] [facility] [address] [place] [id number] Chronic respiratory failure with hypoxia (CMS/HCC) (HCC) (Primary Dx); Rheumatoid arthritis, involving unspecified site, unspecified whether rheumatoid factor present (HCC); Primary hypertension; Chronic heart failure with preserved ejection fraction (CMS/HCC) (HCC) Social History Tobacco Use Types Packs/Day Years Used Date Smoking Tobacco: Never Smokeless Tobacco: Never Alcohol Use Standard Drinks/Week Comments Not Currently 0 (1 standard drink = 0.6 oz pur e alcohol) Comments Unknown Sex and Gender Information Value Date Recorded Sex Assigned at Not on file Legal Sex Female 1:14 AM UTILITY SPRAY OPERATOR Gender Identity Female 05/04/2020 3:33 PM CDT Sexual Orientation Not on file 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 file Not on file documented as of this encounter Last Filed Vital Signs Vital Sign Reading Time Taken Comments Blood Pressure 150/89 07/03/2022 11:25 AM CDT Pulse 89 07/03/2022 11:25 AM CDT Temperature 36.7 ??C (98 ??F) 07/03/2022 11:25 AM CDT Respiratory Rate 20 07/03/2022 11:25 AM CDT Oxygen Saturation 99% 07/03/2022 11:25 AM CDT Inhaled Oxygen Concentration - - Weight - - Height - - Body Mass Index - - documented in this encounter Ordered Prescriptions Prescription Sig Dispense Quantity Refills Last Filled Start Date End Date traMADoL (ULTRAM) 50 mg tablet Take 1 tablet (50 mg total) by mouth every 8 (eight) hours as needed for pain 21 tablet 07/03/2022 lisinopriL (PRINIVIL,ZESTRIL) 5 mg tablet Take 2 tablets (10 mg total) by mouth daily 60 tablet 07/03/2022 08/24/20 22 lidocaine (LIDODERM) 5 % Place 1 patch on the skin daily Remove & discard patch within 12 hours or as directed by MD. 30 patch 07/03/2022 09/13/20 22 trimethoprim (TRIMPEX) 100 mg tabletIndications: Prevention of Bacterial Urinary Tract Infection Take 1 tablet (100 mg total) by mouth nightly at bedtime. 30 tablet 07/03/2022 11/28/19 23 ipratropium-albute roL (DUO-NEB) 0.5-2.5 mg/3 mL nebulizer solutionIndication s:Chronic Obstructive Pulmonary Disease with Bronchospasms Take 3 mL by nebulization every 6 (six) hours as needed for wheezing 180 mL 07/03/2022 08/24/20 22 documented in this encounter Progress Notes * Ni Newman, SCABBLER - 07/03/2022 11:23 AM CDT Alf Facility Discharge Note Admitting Provider: Mackenzie Chery MD Discharge Provider: Mackenzie Chery MD Primary Care Physician at Discharge: Modesto Reyez DO [phone] Admission Date: 06/07 Discharge Date: 07/05 Admission Location: [facility] Assessment and Plan Diagnoses and all orders for this visit: Chronic respiratory failure with hypoxia (CMS/HCC) (HCC) (Primary) Assessment & Plan: Resp status stable. Restart duonebs at home. Montior. F/u with pulm outpt, will need to reschedule PFT testing. Rheumatoid arthritis, involving unspecified site, unspecified whether rheumatoid factor present ([facility]) Assessment & Plan: Continue Plaquenil & Prednisone - f/u with Rheum outpt. Primary hypertension Assessment & Plan: BP flucutates, pulse improved. Continues on Toprol 50mg & Lisinopril 5mg. Will increase Lisinopril to 10mg & pt needs to f/u with Bridge Repair Crew Person outpt. Chronic heart failure with preserved ejection fraction (CMS/HCC) ([facility]) Assessment & Plan: Remains compensated. Subjective and Objective Patient ID: Ayanna Cash is a 72 y.o. female. HPI: Transferred from [facility], where she was admitted from 05/27-06/07/2022. ??Patient presented in ER from rehab with chief complaints of lethargy from rehab facility. ??Of note patient was [facility] for worsening leg edema and subsequent mechanical fall at home. ??Tested positive for COVID on 05/22. ??CT with left-sided 3 rib fracture, GGO with underlying ILD. ??Treated withdiuretics, and discharged on cefdinir (PNA tx) to [facility] rehab facility on 05/26. ??While at the facility patient remained lethargic and unable to work with therapy, the reason sent to be [facility] ER on 05/27. ??In ER tested positive for COVID again on 05/27, received ceftriaxone, azithromycin and 40 IV Lasix. ??Patient received remdesivir x2 but discontinued due to bradycardia/pauses with heart [id number]. ??Pulmonary status remains stable on home oxygen. For acute on chronic chf IV lasix transition to oral lasix home dose 60 mg but slowly trapered down and dcd as Cr elevated, to resume lasix on 06/10/22. Metoprolol 125 mg reduced for bradycardia an ddcd due to persistent normocardia with pauses. Need to f/u her Cardilogist OP. Completed 7 day Tx for PNA and UTI Inez Horn started 05/22- 05/29/22.Pt has hx of chronic UTI on bactrim, f/u with Urology OP. Ucx was positive for 100 k Ent. Faecalis (Amp resistent). ??Received linezolid 600 mg p.o. b.i.d. on 06/01-06/07, Zoloft placed on hold while on linezolid to avoid serotonin syndrome, resumed on discharge. ??Per gear generator set up operator her home Abatacept (DMARD) hled due to acute illness and resume after dc on f/u. Plaquenil to cont. ??Patient hemodynamically and clinically stabilized transferred to [facility] for further rehab. Vitals: Vitals BP 150/89 Pulse 89 Temp 36.7 ??C (98 ??F) Resp 20 SpO2 99% Physical Exam Vitals and nursing note reviewed. [...] and Affect: Mood normal. Behavior: Behavior normal. Pertinent Test Results: 06/11: WBC 8.9, H/H 10.2/32.6, platelets 122, sodium 139, potassium 4.4, creatinine 1.2 06/18: WBC 8, H/H 9.7/31.1, platelets 178, na 139, K 3.4, BUN 24, creatinine 1.2, GFR 48. 8/1: WBC 8.9, H/H 9.9/32.3, Plt 269 07/02: WBC 9.9, H/H 9.7/31.8, Plt 221, Na 138, K 4.0, Cr 1.3 Active Issues Requiring Follow-up: BP monitoring Discharge Disposition: Home Health: PT/OT DME: None Code status: Full Discharge Medications: Medication Sig ??? acetaminophen 325 mg capsule Take by mouth ??? calcium carbonate-vit D3-min 600 mg calcium- 400 unit tablet Take by mouth 2 (two) times a day ??? cholecalciferol (VITAMIN D-3) 2000 unit tablet Take 1,000 Units by mouth daily ??? cholestyramine (QUESTRAN) 4 gram packet ??? cyanocobalamin 2,000 mcg tablet Take 1,000 mcg by mouth daily ??? DULoxetine DR (CYMBALTA) 20 mg capsule Take 20 mg by mouth daily ??? Eliquis 5 mg tablet Take 5 mg by mouth 2 (two) times a day ??? furosemide (LASIX ORAL) Take 60 mg by mouth daily 60 mg ??? hydroxychloroquine (PLAQUENIL) 200 mg tablet Take 200 mg by mouth 2 (two) times a day ??? levothyroxine (SYNTHROID) 112 mcg tablet Take 112 mcg by mouth daily ??? loperamide (IMODIUM) 2 mg capsule Take 2 mg by mouth 4 (four) times a day as needed for diarrhea ??? metoprolol XL (TOPROL-XL) 25 mg extended release tablet Take 2 tablets (50 mg total) by mouth daily ??? phenazopyridine (PYRIDIUM) 200 mg tablet TAKE 1 TABLET BY MOUTH THREE TIMES DAILY NEEDED FORURINARY SYMPTOMS ??? pravastatin (PRAVACHOL) 80 mg tablet Take 80 mg by mouth daily ??? predniSONE (DELTASONE) 5 mg tablet Take 15 mg by mouth every morning ??? sertraline (ZOLOFT) 50 mg tablet Take 50 mg by mouth daily ??? simethicone (MYLICON) 80 mg chewable tablet Take 80 mg by mouth every 6 (six) hours as needed for flatulence ??? ipratropium-albuteroL (DUO-NEB) 0.5-2.5 mg/3 mL nebulizer solution Take 3 mL by nebulization every 6 (six) hours as needed for wheezing ? ? lidocaine (LIDODERM) 5 % Place 1 patch on the skin daily Remove & discard patch within 12 hours or as directed by MD. ??? lisinopriL (PRINIVIL,ZESTRIL) 5 mg tablet Take 2 tablets (10 mg total) by mouth daily ??? traMADoL (ULTRAM) 50 mg tablet Take 1 tablet (50 mg total) by mouth every 8 (eight) hours as needed for pain ??? trimethoprim (TRIMPEX) 100 mg tablet Take 1 tablet (100 mg total) by mouth nightly at bedtime. Discharge Instructions: Discharge activity: Per therapy discharge instructions Discharge diet: Cardiac Post-Discharge Dressing Care: No dressing needed. Call provider for: difficulty breathing or chest pain Call provider for: redness, tenderness, or signs of infection Call provider for: headache, visual disturbances, weakness and speech changes Outpatient Follow-Up: Follow up with PCP in 1 week, Rheum 1-2 weeks, Reschedule PFT Future Appointments Date Time Provider Department Center 09/13/2022 9:15 AM Myles Reyes MD [facility] Special[facility] 01/11/2023 8:00 AM PFT 6 CAM 8D PFT [facility] 8D [facility] 01/11/2023 8:45 AM [facility] PUL ILD 2 PUL [facility] 8B [facility] Total time spent on all discharge activities today: 45 minutes Discussed with staff, resident and family. POS 31 Ni Newman NP 07/03/2022 11:37 AM Voice recognition software Creabil[employer] Direct was used dictate and transcribe this document. Cash Poster variances may occur. Despite proofreading, typographical errors may occur. Cosigned by Mackenzie Chery MD at 07/04/2022 8:43 PM CDT documented in this encounter Miscellaneous Notes * Assessment & Plan Note - Ni Newman NP - 07/03/2022 11:37 AM CDT Associated Problem(s): Chronic heart failure with preserved ejection fraction (CMS/HCC) (HCC) (Resolved 10/01/2023) Remains compensated. * Assessment & Plan Note - Ni Newman NP - 07/03/2022 11:34 AM CDT Associated Problem(s): Primary hypertension BP flucutates, pulse improved. Continues on Toprol 50mg & Lisinopril 5mg. Will increase Lisinopril to 10mg & pt needs to f/u with Bridge Repair Crew Person outpt. * Assessment & Plan Note - Ni Newman NP - 07/03/2022 11:31 AM CDT Associated Problem(s): Rheumatoid arthritis (HCC) Continue Plaquenil & Prednisone - f/u with Rheum outpt. * Assessment & Plan Note - Ni Newman NP - 07/03/2022 11:30 AM CDT Associated Problem(s): Chronic respiratory failure with hypoxia (CMS/HCC) ([facility]) Resp status stable. Restart duonebs at home. Montior. F/u with pulm outpt, will need to reschedule PFT testing. documented in this encounter Plan of Treatment Not on file documented as of this encounter Visit Diagnoses Diagnosis Chronic respiratory failure with hypoxia (CMS/HCC) ([facility])- Primary Rheumatoid arthritis, involving unspecified site, unspecified whether rheumatoid factor present ([facility]) Primary hypertension Unspecified essential hypertension Chronic heart failure with preserved ejection fraction (CMS/HCC) ([facility]) documented in this encounter Discontinued Medications Medication Sig Discontinue Reason Start Date End Da te cefdinir (OMNICEF) 300 mg capsule 05/26/2022 07/03/2022 abatacept (Orencia ClickJect) 125 mg/mL auto-injectorIndication s: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) Inject 1 mL (125 mg total) under the skin once a week 03/23/2022 07/03/2022 lidocaine 5 % cream Apply topically 07/03/2022 nitrofurantoin monohydrate (MACROBID) 100 mg capsule TAKE 1 CAPSULE BY MOUTH EVERY 12 HOURS FOR 7 DAYS 05/22/2022 07/03/2022 umeclidinium-vilanteroL (ANORO ELLIPTA) 62.5-25 mcg/actuation blister with device Inhale 1 puff daily 06/08/2022 07/03/2022 trimethoprim (TRIMPEX) 100 mg tablet Take 100 mg by mouth nightly at bedtime. Reorder 02/23/2022 07/03/2022 traMADoL (ULTRAM) 50 mg tablet Take 1 tablet (50 mg total) by mouth every 8 (eight) hours as needed for pain Reorder 06/07/2022 07/03/2022 lisinopriL (PRINIVIL,ZESTRIL) 5 mg tablet Take 5 mg by mouth daily Reorder 07/03/2022 documented as of this encounter Additional Health Concerns Infection Onset Date Last Indicated Resolved Time COVID: Recovered Comment:Added based on recent COVID infection. 06/17/2022 06/18/2022 10/15/2022 3:[address] documented as of this encounter Care Teams Assignment Desk Assistant Relationship Specialty Start Date End Date Modesto Reyez DO PCP - General Internal Medicine 01/03/20 01/13/23 documented as of this encounter
--- OUTSIDE RECORDS SUMMARY | 2024-11-15 05:57 | XMS_ITS | Encounter Summary ---
Author Organization [facility] Address [address] [place] [address] Phone Care Team Providers Care Special Education Curriculum Specialist Name Role Phone Modesto Reyez DO Primary Care Provider [phone] Encounter Details Date Type Department Care Team (Late st Contact Info) Description 06/14/2022 Orders Only [facility] Pulmonary 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 nitrofurantoin monohydrate (MACROBID) 100 mg capsule TAKE 1 CAPSULE BY MOUTH EVERY 12 HOURS FOR 7 DAYS 05/22/2022 07/03/2022 cefdinir (OMNICEF) 300 mg capsule 05/26/2022 07/03/2022 added in this encounter Additional Health Concerns [...] the result is from a facility outside [facility] . 05/22/2022 05/27/2022 06/17/2022 3:05 AM CDT documented as of this encounter Care Teams Special Education Curriculum Specialist Relationship Specialty Start Date End Date Modesto Reyez DO PCP - General Internal Medicine 01/03/20 01/13/23 documented as of this encounter
--- OUTSIDE RECORDS SUMMARY | 2024-11-15 05:57 | XMS_ITS | Encounter Summary ---
Author Organization [facility] Address [address] [place] [address] Care Team Providers Care Meat Scrubber Name Role Phone Modesto Reyez DO Primary Care Provider [phone] Encounter Details Date Type Department Care Team (Late st Contact Info) Description 07/04/2022 Telephone [facility] Cardiology [address] [place] [address] Myles Reyes MD [address] [facility] [address] [place] [address] Social History Tobacco Use Types Packs/Day Years Used Date Smoking Tobacco: Never Smokeless Tobacco: Never Alcohol Use Standard Drinks/Week Comments Not Currently 0 (1 standard drink = 0.6 oz pur e alcohol) Comments Unknown Sex and Gender Information Value Date Recorded Sex Assigned at Not on file 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 Sex 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 Gender Identity Female 05/04/2020 3:33 PM CDT Sexual Orientation Not on file 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 Not on file Not on file documented as of this encounter Ordered Prescriptions Prescription Sig Dispense Quantity Refills Last Filled Start Date End Date metoprolol XL (TOPROL-XL) 25 mg extended release tabletIndications: Longstanding persistent atrial fibrillation (CMS/HCC) (HCC) Take 2 tablets (50 mg total) by mouth daily 60 tablet 11 07/04/2022 3 documented in this encounter Miscellaneous Notes * Telephone Encounter - Edilma Carballo MA - 07/04/2022 9:37 AM CDT Refills sent to the pharmacy * Telephone Encounter - Leonie Cronin - 07/04/2022 9:18 AM CDT Pt daughter Mae [facility] Contact: documented in this encounter Plan of Treatment Not on file documented as of this encounter Visit Diagnoses Diagnosis Longstanding persistent atrial fibrillation (CMS/HCC) (HCC) documented in this encounter Discontinued Medications Medication Sig Discontinue Reason Start Date End Da te metoprolol XL (TOPROL-XL) 25 mg extended release tabletIndications:Longsta nding persistent atrial fibrillation (CMS/HCC) (HCC) Take 2 tablets (50 mg total) by mouth daily Reorder 06/22/2022 07/04/2022 documented as of this encounter Additional Health Concerns Infection Onset Date Last Indicated Resolved Time COVID: Recovered Comment:Added based on recent COVID infection. 06/17/2022 06/18/2022 10/15/2022 3:[address] documented as of this encounter Care Teams Meat Scrubber Relationship Specialty Start Date End Date Modesto Reyez DO PCP - General Internal Medicine 01/03/20 01/13/23 documented as of this encounter
--- OUTSIDE RECORDS SUMMARY | 2024-11-15 05:57 | XMS_ITS | Encounter Summary ---
Author Organization [facility] Address [address] [place] [address] Care Team Providers Care Janitorial Manager Name Role Phone Modesto Reyez Primary Care Provider [phone] Reason for Visit * Reason Onset Date Comments Test Results 07/13/2022 Encounter Details Date Type Department Care Team (Late st Contact Info) Description 07/13/2022 Telephone [facility] Cardiology [address] [address] Yolanda Soto NP [address] [facility] [address] [place] [address] Test Results Social History Tobacco Use Types Packs/Day Years Used Date Smoking Tobacco: Never Smokeless Tobacco: Never Alcohol Use Standard Drinks/Week Comments Not Currently 0 (1 standard drink = 0.6 oz pur e alcohol) Comments Unknown Sex and Gender Information Value Date Recorded Sex Assigned at Not on file Legal Sex Female 1:14 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 The patient has not been complaining of bothersome shortness of breath or palpitations. Therefore I recommend she continue the metoprolol at the current dosage of 50 mg daily because overall heart ratewas fairly well controlled on this monitor. The patient's daughter verbalized understanding and agreed. (This was a late entry documentation. The above conversation occurred approx 13:10 on 07/13/2022) * Telephone Encounter - Yolanda Soto NP - 07/13/2022 12:19 PM CDT I left a voicemail for the patient's daughter Mae to review the results of the patient's heart monitor. If I do not hear back from her today I will try her again early next week. documented in this encounter Plan of Treatment Not on file documented as of this encounter Visit Diagnoses Not on filedocumented in this encounter Additional Health Concerns Infection Onset Date Last Indicated Resolved Time COVID: Recovered Comment:Added based on recent COVID infection. 06/17/2022 06/18/2022 10/15/2022 3:[address] documented as of this encounter Care Teams Janitorial Manager Relationship Specialty Start Date End Date Modesto Reyez DO PCP - General Internal Medicine 01/03/20 01/13/23 documented as of this encounter
--- OUTSIDE RECORDS SUMMARY | 2024-11-15 05:57 | XMS_ITS | Encounter Summary ---
Author Organization [facility] Address [address] [place] [address] Care Team Providers Care Hides Inspector Name Role Phone Modesto Reyez DO Primary Care Provider [phone] Encounter Details Date Type Department Care Team (Late st Contact Info) Description 06/11/2022 NH/SNF Visit [facility] Post Acute Care [facility] [address] [place] [address] iN Newman, RESIDENTIAL CHILD CARE COUNSELOR [address] [facility] [address] [place] [address] Acute on chronic diastolic CHF (congestive heart failure) (CMS/HCC) ([facility]) (Primary Dx); Closed fracture of multiple ribs of left side with routine healing, subsequent encounter; Chronic respiratory failure with hypoxia (CMS/HCC) (HCC) Social History Tobacco Use Types Packs/Day Years Used Date Smoking Tobacco: Never Smokeless Tobacco: Never Alcohol Use Standard Drinks/Week Comments Not Currently 0 (1 standard drink = 0.6 oz pur e alcohol) Comments Unknown Sex and Gender Information Value Date Recorded Sex Assigned at Not on file 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 Gender Identity Female 05/04/2020 3:33 PM CDT Sexual Orientation Not on file 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 [facility] Daily Progress Note Chief complaint of None. Interval History: 72-year-old female with past medical history significant for hypertension, hypothyroidism, i.e., hyperlipidemia, chronic respiratory failure with hypoxia, rheumatoid arthritis, longstanding persistent atrial fibrillation, depressive disorder, transferred from [facility], where she was admitted from 05/27- 06/07/2022. Patient presented in ER from rehab with chief complaints of lethargy from rehab facility. Of note patient was recently admitted at [facility] for worsening leg edema and subsequent mechanical fall at home. Tested positive for COVID on 05/22. CT with left-sided 3 rib fracture, GGO with underlying ILD. Treated with diuretics, and discharged on cefdinir (PNA tx) to [facility] rehab facility on 05/26. While at the facility patient remained lethargic and unable to work with therapy, the reason sent to be [facility] ER on 05/27. In ER tested positive [...] avoid serotonin syndrome, resumed on discharge. Per material carrier her home Abatacept (DMARD) hled due to acute illness and resume after dc.Plaquenil to cont. Patient hemodynamically and clinically stabilized transferred to [facility] for furtherrehab. ?? She lives in a two-story home (with 14 steps) with her daughter. Uses walker 06/11: Patient resting in bed. She denies any concerns or complaints. Asks about labs & Cr - reviewed & stable. Edema stable to BLE - GEORGI wraps in place. VSS. ?? COVID-19 vaccine: received 1 vaccine on 03/15. Refused any vaccine dose for now DVT Prophylaxis: eliquis 5 mg bid ?? Code status: full MDM: 68677 POS 31 A/P: Diagnoses and all orders for this visit: Acute on chronic diastolic CHF (congestive heart failure) ([facility]) ([facility]) (Primary) Assessment & Plan: Acute phase resolved. Cr stable. Will increase Lasix to 60mg every day in am. Monitor. Closed fracture of multiple ribs of left side with routine healing, subsequent encounter Assessment & Plan: Pain controlled. Continue PT/OT. Chronic respiratory failure with hypoxia ([facility]) ([facility]) Assessment & Plan: Continues on O2, Resp status stable. Monitor. Recent Labs: 06/11: WBC 8.9, H/H 10.2/32.6, platelets 122, sodium 139, potassium 4.4, creatinine 1.2 Medications reviewed today. Vital Signs: Vitals BP 136/88 Pulse 93 Temp 36.3 ??C (97.3 ??F) Resp 20 SpO2 93% Review of Systems: Review of Systems Constitutional: [...] baseline. Psychiatric: Mood and Affect: Mood normal. Ni Newman NP 06/11/2022 3:08 PM Voice recognition software [employer] was used dictate and transcribe this document. Global Sales Director variances may occur. Despite proofreading, typographical errors may occur. Cosigned by Mackenzie Chery MD at 06/14/2022 10:25 AM CDT documented in this encounter Miscellaneous Notes * Assessment & Plan Note - Ni Newman NP - 06/11/2022 3:08 PM CDT Associated Problem(s): Chronic respiratory failure with hypoxia (CMS/HCC) (HCC) Continues on O2, Resp status stable. Monitor. * Assessment & Plan Note - Ni Newman NP - 06/11/2022 3:08 PM CDT Associated Problem(s): Rib fracture (Resolved 07/03/2022) Pain controlled. Continue PT/OT. * Assessment & Plan Note - Ni Newman NP - 06/11/2022 3:06 PM CDT Associated Problem(s): Acute on chronic diastolic CHF (congestive heart failure) (CMS/HCC) (HCC) (Resolved 06/25/2022) Acute phase resolved. Cr stable. Will increase Lasix to 60mg every day in am. Monitor. documented in this encounter Plan of Treatment Not on file documented as of this encounter Visit Diagnoses Diagnosis Acute on chronic diastolic CHF (congestive heart failure) (CMS/HCC) (HCC)- Primary Closed fracture of multiple ribs of left side with routine healing, subsequent encounter Chronic respiratory failure with hypoxia (CMS/HCC) ([facility]) documented in this encounter Additional Health Concerns [...] the result is from a facility outside [facility] . 05/22/2022 05/27/2022 06/17/2022 3:05 AM CDT documented as of this encounter Care Teams Hides Inspector Relationship Specialty Start Date End Date Modesto Reyez DO PCP - General Internal Medicine 01/03/20 01/13/23 documented as of this encounter
--- OUTSIDE RECORDS SUMMARY | 2024-11-15 05:57 | XMS_ITS | Encounter Summary ---
Author Organization [facility] Address [address] [place] [address] Phone Care Team Providers Care Business Banking Relationship Manager Name Role Phone Modesto Reyez Primary Care Provider [phone] Reason for Referral * (Routine) - Closed Specialty Diagnoses / Procedures Referred By Contac t Referred To Contact Diagnoses ILD (interstitial lung disease) (CMS/HCC) (HCC) Procedures Pulmonary Function Test -[facility] Adult PFT Lab- [facility]; Spirometry, Oxygen Assessment Titration Renetta Goodson MD [address] [place] [address] Phone: tel: fax: Referral ID Status Reason Start Date Expiration Date Visits Re quested Visits Authorized [id number] Closed 06/15/2022 07/15/2023 1 1 Encounter Details Date Type Department Care Team (Late st Contact Info) Description 06/15/2022 10:15 AM CDT Office Visit [facility] Pulmonary [address] [facility] [address] 8th [place] [address] [place] [address] Renetta Goodson MD [address] [place] [address] ILD (interstitial lung disease) (CMS/HCC) (HCC) (Primary Dx); STARR on CPAP Social History Tobacco Use Types Packs/Day Years Used Date Smoking Tobacco: Never Smokeless Tobacco: Never Alcohol Use Standard Drinks/Week Comments Not Currently 0 (1 standard drink = 0.6 oz pur e alcohol) Comments Unknown Sex and Gender Information Value Date Recorded Sex Assigned at Not on file Legal Sex Female 1:14 AM DIABETES CLINICAL MANAGER Gender Identity Female 05/04/2020 3:33 PM CDT Sexual Orientation Not on file 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 Not on file Not on file documented as of this encounter Last Filed Vital Signs Vital Sign Reading Time Taken Comments Blood Pressure 144/83 06/15/2022 9:38 AM CDT Pulse 91 06/15/2022 9:38 AM CDT Temperature 36.3 ??C (97.3 ??F) 06/15/2022 9:38 AM CD T Respiratory Rate 18 06/15/2022 9:38 AM CDT Oxygen Saturation 100% 06/15/2022 9:38 AM CDT 2L Inhaled Oxygen Concentration - - Weight 116.6 kg (257 lb) 06/15/2022 9:38 AM CDT Height 157.5 cm (5' 2 ) 06/15/2022 9:38 AM CDT Body Mass Index 47.01 06/15/2022 9:38 AM CDT documented in this encounter Progress Notes * Manoj Chua MD - 06/15/2022 12:00 AM CDT PATIENT NAME: AYANNA CASH : 1950 ANGELICA: 06/15/2022 PROBLEM LIST: 1. Rheumatoid arthritis, seropositive, previously on methotrexate, now on prednisone 15 mg p.o. daily and hydroxychloroquine. 2. Hypertension. 3. Congestive heart failure. 4. [...] fractures and heart failure exacerbation. INTERVAL HISTORY: Ayanna Cash presents today for follow-up. Since she was last seen in clinic in February, she unfortunately had 2 hospitalizations. The first was for a mechanical fall complicated by rib fractures. She was also diagnosed with asymptomatic COVID-19 infection at that time. She was discharged to rehab,but readmitted due to weakness and suspected heart failure exacerbation, requiring diuresis. She was discharged to a subacute rehab facility on June 07, where she is currently still living. She has had some dypsnea during her hospital stay, but currently feels at baseline. Her primary care physician at the rehab facility just increased her Lasix to 60 mg daily a few days ago which she is tolerating. She does have significant lower extremity edema. She is currently using 2 L of oxygen at rest and 4 L with exertion. She does continue on prednisone 15 mg daily and Plaquenil. Prior to hospitalization, the plan with Dr. Bauman was to start Orencia. This was prescribed, but she has not received word back from the manufacture regarding a drug assistance program so she has not started taking thisyet. She also endorses that she was on antibiotics during his recent hospital stay. She says that she is still receiving an antibiotic at the rehab facility, but she is not sure what it is for. She denies any fevers, chills, or other infectious symptoms. While her respiratory symptoms are stable, she is very deconditioned. She only walked a limited distance with PT yesterday. MEDICATIONS: 1. Cefdinir 300 mg capsule. Patient unsure if taking. 2. Vitamin D. 3. Cholestyramine. 4. Vitamin B12. 5. Duloxetine 20 mg daily. 6. Eliquis 5 mg twice daily. 7. Lasix 60 mg daily. 8. Hydroxychloroquine 200 mg twice daily. 9. Synthroid 112 mcg daily. 10. Pravastatin 80 mg daily. 11. Prednisone 15 mg daily. 12. Sertraline 50 mg daily. 13. Tramadol as needed. 14. Anoro inhaler 1 puff daily. REVIEW OF SYSTEMS: As above. The rest of 12 systems reviewed and otherwise. PHYSICAL EXAMINATION: Vital Signs: Weight is 257 pounds, blood pressure 144/83, heart rate 91, SpO2 100% on 2 L. General: Obese female, in no acute distress. HEENT: Normal oropharynx. Neck: No lymphadenopathy. Cardiovascular: Regular rate and rhythm. No murmurs appreciated. Pulmonary: Bibasilar rales. No rhonchi or wheezes. Abdomen: Obese but soft and nontender. Extremities: She has 2+ lower extremity pitting edema. No cyanosis or clubbing. DATA: 1. PFTs: Date FVC, % pred FEV1, % pred FEV1/FVC TLC, % pred DLCO, % pred 05/2022 1.40, 55% 1.21, 62% 87% 02/2022 1.26, 49% 1.10, 55% 87% 10/2021 1.22, 47% 1.11, 56% 91% 2.63, 55% 45% 2. Six-minute walk test: The patient had significant difficulty ambulating due to deconditioning and weakness. Saturation was 95% on room air. With ambulation she required 2 L to maintain an oxygen saturation 94%. She was only able to ambulate 45 feet. Blood pressure remained stable with exertion. Concluding Kaitlin score was 5. ASSESSMENT: Ms. Cash is a 72-year-old female with a history of seropositive rheumatoid arthritis with associated interstitial lung disease. Less likely other considerations for her lung disease include hypersensitivity pneumonitis. She has had frequent hospitalizations recently for a variety of issues including congestive heart failure, as well as recent COVID-19 infection. She is clinically improving and currently admitted to a subacute rehabilitation facility. RECOMMENDATIONS: 1. Ms. Cash is on 15 mg of prednisone daily for now. She and her daughter will reach out to Rheumatology to let them know that she is out of the hospital and follow up on starting Orencia. We will monitor her lung function on Orencia and hopefully she will be able to titrate down her prednisone in the coming weeks when Orencia has been initiated. 2. Agree with continued diuresis. She is currently on Lasix 60 mg daily. 3. She will continue on nocturnal CPAP without oxygen therapy. It appears that she does not need supplemental oxygen at rest, but she can continue on 2 to 4 L of oxygen with exertion. This will be monitored at rehab. 4. Follow up in 6 months with repeat oxygen spirometry at that time. The patient was seen and discussed with Dr. Renetta Goodson. ELECTRONICALLY SIGNED - 06/15/2022 01:59 PM Manoj Chua M.D. Fellow I have seen and examined the patient, and agree with the assessment and plan as documented in Dr. Chua' note. Renetta Goodson M.D. Homicide Investigatorscreen roller ZTL/JO/cp cc: MODESTO REYEZ DO [address] [place] [address] / [place] [address] [facility] [address] [place] [address] / ETIENNE BAUMAN MD [facility] [place] [address] documented in this encounter Plan of Treatment Not on file documented as of this encounter Results * Pulmonary Function Test - (01/11/2023 7:59 AM DIABETES CLINICAL MANAGER) FVC PRE 0.98 L [facility] FVC %PRE PRED 38 % [facility] FEV1 PRE 0.86 L [facility] FEV1 %PRE PRED 43 % [facility] FEV1/FVC PRE 88.2 % [facility] Anatomical Region Laterality Modality PFT 01/11/2023 7:41 AM DIABETES CLINICAL MANAGER Narrative 01/15/2023 9:45 PM DIABETES CLINICAL MANAGER Table formatting from the original result was not included. [facility] Division of Pulmonary & Critical Care Medicine [address] [place] [address]; [place] [facility]; [place], [place] ??[address]; [phone] Pulmonary Function Laboratory Pulmonary Stress Test Simple/Oxygen [...] written final report. PFT performed at:->[facility] Adult PFT Lab- [facility]-8D Procedure:->Spirometry Procedure:->Oxygen Assessment Titration Renetta Goodson MD PFT ORDERABLES Final Res ult documented in this encounter Visit Diagnoses Diagnosis ILD (interstitial lung disease) (CMS/HCC) ([facility] Primary Postinflammatory pulmonary fibrosis STARR on CPAP ILD (interstitial lung disease) (CMS/HCC) ([facility]) Postinflammatory pulmonary fibrosis documented in this encounter Historical Medications * This list may reflect changes made after this encounter. furosemide (LASIX ORAL) Take 60 mg by mouth daily 60 mg 10/29/2022 added in this encounter Additional Health Concerns Infection Onset Date Last Indicated Resolved Time COVID19 Comment:06/02/2022 Patient is considered Immunosuppressed and will need 20 days of isolation. Review on on 06/12 - IP Cornelia Conn, BILLY IP Review - original result from 05/22 scanned into media section, eligible to be reviewed 06/0205/31/2022 Eri Gutierrez from the Screening question BPA, identifying patients that tested positive for COVID in the last 14 days and the result is from a facility outside [facility] . 05/22/2022 05/27/2022 06/17/2022 3:05 AM CDT documented as of this encounter Care Teams Business Banking Relationship Manager Relationship Specialty Start Date End Date Modesto Reyez DO PCP - General Internal Medicine 01/03/20 01/13/23 documented as of this encounter
--- OUTSIDE RECORDS SUMMARY | 2024-11-15 05:57 | XMS_ITS | Encounter Summary ---
Author Organization [facility] Address [address] [facility] [facility] [address] [place] [address] Phone Care Team Providers Care Cover Inspector Name Role Phone Modesto Reyez DO Primary Care Provider [phone] Reason for Referral * (Routine) - Closed Specialty Diagnoses / Procedures Referred By Contac t Referred To Contact Diagnoses Rheumatoid lung (CMS/HCC) (HCC) Procedures Pulmonary Function Test -[facility] Adult PFT Lab- [facility]-8D; Spirometry, Oxygen Assessment Titration Denita Correa MD [address] [address] Phone: tel: fax: Referral ID Status Reason Start Date Expiration Date Visits Re quested Visits Authorized [id number] Closed 03/16/2022 04/15/2023 1 1 Reason for Visit * (Routine) - Closed Specialty Diagnoses / Procedures Referred By Contac t Referred To Contact Diagnoses Rheumatoid lung (CMS/HCC) (HCC) Procedures Pulmonary Function Test -[facility]FT [facility]- [facility]; Spirometry, Oxygen Assessment Titration Denita Correa MD [id number] [place] [address] Phone: tel: fax: Referral ID Status Reason Start Date Expiration Date Visits Re quested Visits Authorized [id number] Closed 03/16/2022 04/15/2023 1 1 Encounter Details Date Type Department Care Team (Latest Contact Info) Description 06/15/2022 9:00 AM CDT - 06/15/2022 11:59 PM CDT Hospital Encounter [facility] Pulmonary [address] [place] [address] Rheumatoid lung (CMS/HCC) (HCC) Discharge Disposition: Discharge to home or self care Social History Tobacco Use Types Packs/Day Years Used Date Smoking Tobacco: Never Smokeless Tobacco: Never Alcohol Use Standard Drinks/Week Comments Not Currently 0 (1 standard drink = 0.6 oz pur e alcohol) Comments Unknown Sex and Gender Information Value Date Recorded Sex Assigned at Not on file Legal Sex 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 Gender Identity Female 05/04/2020 3:33 PM CDT Sexual Orientation Not on file 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 Not on file Not on file Not on file documented as of this encounter Medications at Time of Discharge calcium carbonate-vit D3-min 600 mg calcium- 400 [...] (80 mg total) by mouth daily 01/22/2020 abatacept (Orencia ClickJect) 125 mg/mL auto-injectorIndi cations:Rheumatoi d lung disease with rheumatoid arthritis (HCC) Inject 1 mL (125 mg total) under the skin once a week 4 mL 2 03/23/2022 2 cefdinir (OMNICEF) 300 mg capsule 05/26/2022 2 cholestyramine (QUESTRAN) 4 gram packet 06/09/2020 3 cyanocobalamin 2,000 mcg tablet Take 1,000 mcg by mouth daily 2 furosemide (LASIX ORAL) Take 60 mg by mouth daily 60 mg 2 hydroxychloroquin e (PLAQUENIL) 200 mg tablet Take 1 tablet (200 mg total) by mouth 2 (two) times a day 11/26/2019 4 nitrofurantoin monohydrate (MACROBID) 100 mg capsule TAKE 1 CAPSULE BY MOUTH EVERY 12 HOURS FOR 7 DAYS 05/22/2022 2 phenazopyridine (PYRIDIUM) 200 mg tablet TAKE 1 TABLET BY MOUTH THREE TIMES DAILY NEEDED FOR URINARY SYMPTOMS 11/10/2021 2 predniSONE (DELTASONE) 10 mg tablet Take 1 tablet (10 mg) by mouth every morning 30 tablet 2 03/20/2022 2 predniSONE (DELTASONE) 5 mg tablet Take 15 mg by mouth every morning 02/15/2022 2 sertraline (ZOLOFT) 50 mg tablet Take 50 mg by mouth daily 10/23/2021 2 traMADoL (ULTRAM) 50 mg tablet Take 1 tablet (50 mg total) by mouth every 8 (eight) hours as needed for pain 21 tablet 06/07/2022 2 trimethoprim (TRIMPEX) 100 mg tablet Take 100 mg by mouth nightly at bedtime. 02/23/2022 2 umeclidinium-robina nteroL (ANORO ELLIPTA) 62.5-25 mcg/actuation blister with device Inhale 1 puff daily 1 each 06/08/2022 2 documented as of this encounter Discharge Disposition Disposition Code Departure Means Destination Discharge to home or self care documented in this encounter Plan of Treatment Not on file documented as of this encounter Procedures Procedure Name Priority Date/Time Associated Diagnosis Comments PULMONARY FUNCTION TEST (PFT) Routine 06/15/2022 9:33 AM CDT Rheumatoid lung ([facility]/HCC) ([facility]) documented in this encounter Results * Pulmonary Function Test - (06/15/2022 9:33 AM CDT) FVC PRE 1.40 L [facility] FVC %PRE PRED 55 % [facility] FEV1 PRE 1.21 L [facility] FEV1 %PRE PRED 62 % [facility] FEV1/FVC PRE 86.9 % [facility] Anatomical Region Laterality Modality PFT 06/15/2022 9:06 AM CDT Narrative 06/20/2022 3:26 PM CDT [facility] Division of Pulmonary & Critical Care Medicine [address] [place] [address]; [place] [facility]; [place] ??[address]; [phone] Pulmonary Function Laboratory Pulmonary Stress Test Simple/Oxygen Assessment Patient: Ayanna Cash Date: 06/15/2022 : 1950 Ht: 62 IN Wt: 257 LBS Time (min) Distance (ft)/ Ozuna O2 L/M SpO2 HR Kaitlin* BP FEV1 % Pred Rest: ??2 100 89 0 122/77 1.21 62 % ??RA 95 92 0 ? Walk/Bike: 1 ??RA 91 148 5 ? 2 ??RA/2 87/94 130/135 2 ? 3 ? 4 ? 5 ? 6 min 0 sec ? Recovery: 1 ??2 99 93 0 133/77 ?? 3 ??2 99 87 0 ?*Kaitlin rate of perceived exertion (1-10 dyspnea scale) ??Victor M, CHEST 2003; [id number] Walk Test Summary: Six Minute Walk Distance: 45 ft Six-minute Walk Work [distance (m) x body wt (kg)]: 1596 kg.m (normal >60,000kg.m) Oxygen required to maintain SpO2 greater than 90% during six minutes of walkin L/M Comments: WALK ENDED DUE TO LEG FATIGUE. WALK DURATION AND DISTANCE BELOW NORMAL. Interpretation: Breathing room air, SpO2 is normal at rest and during limited- duration exercise sufficient to increase pulse from 89 to 135 b/min, SpO2 is falls to hypoxemic levels. On this basis, SpO2 is adequate at rest breathing room air and while walking breathing supplemental O2 at 2 L/min. ?? Dieter Ramírez M.D. By signing this report, the attending pulmonary physician certifies that he/she has personally reviewed and interpreted the graphic and numerical data associated with this pulmonary function study and has reviewed and /or edited a preliminary draft report and agrees with the written final report. PFT performed at:->[facility] Adult PFT Lab- [facility] Procedure:->Spirometry Procedure:->Oxygen Assessment Titration us Denita Correa MD PFT ORDERABLES Final Result documented in this encounter Visit Diagnoses Diagnosis Rheumatoid lung (CMS/HCC) (HCC) Rheumatoid lung documented in this encounter Additional Health Concerns [...] the result is from a facility outside [facility] . 05/22/2022 05/27/2022 06/17/2022 3:05 AM CDT documented as of this encounter Care Teams Cover Inspector Relationship Specialty Start Date End Date Modesto Reyez DO PCP - General Internal Medicine 01/03/20 01/13/23 documented as of this encounter
--- OUTSIDE RECORDS SUMMARY | 2024-11-15 05:57 | XMS_ITS | Encounter Summary ---
Author Organization [facility] Address [address] [place] [address] Care Team Providers Care Warp Starter Name Role Phone Modesto Reyez DO Primary Care Provider [phone] Encounter Details Date Type Department Care Team (Late st Contact Info) Description 06/21/2022 NH/SNF Visit [facility] Post Acute Care [facility] [address] [place] [address] Ni Newman, LIVESTOCK SHOWMAN [address] [facility] [address] [place] [id number] Acute on chronic diastolic CHF (congestive heart failure) (CMS/HCC) (HCC) (Primary Dx); Chronic respiratory failure with hypoxia (CMS/HCC) (HCC); Chronic UTI; Acute pain of left shoulder Social History Tobacco Use Types Packs/Day Years Used Date Smoking Tobacco: Never Smokeless Tobacco: Never Alcohol Use Standard Drinks/Week Comments Not Currently 0 (1 standard drink = 0.6 oz pur e alcohol) Comments Unknown Sex and Gender Information Value Date Recorded Sex Assigned at Not on file 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 Gender Identity Female 05/04/2020 3:33 PM CDT Sexual Orientation Not on file 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 [facility] Daily Progress Note Chief complaint of L shoulder pain. Interval History: 72-year-old female with past medical history significant for hypertension, hypothyroidism, i.e., hyperlipidemia, chronic respiratory failure with hypoxia, rheumatoid arthritis, longstanding persistent atrial fibrillation, depressive disorder, transferred from [facility], where she was admitted from 05/27- 06/07/2022. Patient presented in ER from rehab with chief complaints of lethargy from rehab facility. Of note patient was recently admitted at [facility] for worsening leg edema and subsequent mechanical fall at home. Tested positive for COVID on 05/22. CT with left-sided 3 rib fracture, GGO with underlying ILD. Treated with diuretics, and discharged on cefdinir (PNA tx) to [facility] rehab facility on 05/26. While at the facility patient remained lethargic and unable to work with therapy, the reason sent to be [facility] ER on 05/27. In ER tested positive [...] avoid serotonin syndrome, resumed on discharge. Per editing clerk her home Abatacept (DMARD) hled due to acute illness and resume after dc.Plaquenil to cont. Patient hemodynamically and clinically stabilized transferred to [facility] for furtherrehab. ?? 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 She was not transferred on medication, but was not told to discontinue. She has noticed her urine has been cloudier than normal. Will resume Bactrim, encourage to increase fluids to flush sx. Monitor. ?? COVID-19 vaccine: received 1 vaccine on 03/15. Refused any vaccine dose for now DVT Prophylaxis: eliquis 5 mg bid ?? Code status: full MDM: 09845 POS 31 A/P: Diagnoses and all orders for this visit: Acute on chronic diastolic CHF (congestive heart failure) (CMS/HCC) ([facility]) (Primary) Assessment & Plan: Edema controlled. Continue to monitor. Labs stable. Continue GEORGI wraps. Chronic respiratory failure with hypoxia (CMS/[facility]) ([facility]) Assessment & Plan: Resp status stable. Chronic UTI Assessment & Plan: Takes Bactrim 100mg qhs for prophylaxis. Resume today. Was not transferred on med but have confirmed with patient and record she should continue on. Acute pain of left shoulder Assessment & Plan: Believes from pulleys in therapy. Will add lidoderm patch. Monitor. Recent Labs: 06/11: WBC 8.9, H/H 10.2/32.6, platelets 122, sodium 139, potassium 4.4, creatinine 1.2 06/18: WBC 8, H/H 9.7/31.1, platelets 178, na 139, K 3.4, BUN 24, creatinine 1.2, GFR 48. Next labs 06/25 Medications reviewed today. Vital Signs: Vitals BP 137/86 Pulse 80 Temp 36.7 ??C (98.1 ??F) Resp 18 SpO2 97% Review of Systems: Review of Systems Constitutional: Negative for chills and fever. HENT: Negative. Eyes: Negative. Respiratory: Negative. Negative for cough, shortness of breath and wheezing. Cardiovascular: Positive for leg swelling. Negative for chest pain. Gastrointestinal: Negative. Negative for abdominal pain, constipation, diarrhea, nausea and vomiting. Endocrine: Negative. Genitourinary: Positive for frequency. Negative for dysuria. Musculoskeletal: Negative. L shoulder pain Skin: Negative. Allergic/Immunologic: Negative. Hematological: Negative. Psychiatric/Behavioral: [...] normal. Behavior: Behavior normal. Ni Newman NP 06/21/2022 10:46 AM Voice recognition software SignNow Direct was used dictate and transcribe this document. Silviculture Professor variances may occur. Despite proofreading, typographical errors may occur. Cosigned by Mackenzie Chery MD at 06/26/2022 5:45 PM CDT documented in this encounter Miscellaneous Notes * Assessment & Plan Note - Ni Newman NP - 06/21/2022 10:33 AM CDT Associated Problem(s): Acute pain of left shoulder (Resolved 06/28/2022) Believes from pulleys in therapy. Will add lidoderm patch. Monitor. * Assessment & Plan Note - Ni Newman NP - 06/21/2022 10:32 AM CDT Associated Problem(s): Chronic UTI Takes Bactrim 100mg qhs for prophylaxis. Resume today. Was not transferred on med but have confirmed with patient and record she should continue on. * Assessment & Plan Note - Ni Newman NP - 06/21/2022 10:31 AM CDT Associated Problem(s): Chronic respiratory failure with hypoxia (CMS/HCC) (HCC) Resp status stable. * Assessment & Plan Note - Ni Newman NP - 06/21/2022 10:30 AM CDT Associated Problem(s): Acute on chronic diastolic CHF (congestive heart failure) (CMS/HCC) (HCC) (Resolved 06/25/2022) Edema controlled. Continue to monitor. Labs stable. Continue GEORGI wraps. documented in this encounter Plan of Treatment Not on file documented as of this encounter Visit Diagnoses Diagnosis Acute on chronic diastolic CHF (congestive heart failure) ([facility]) ([facility])- Primary Chronic respiratory failure with hypoxia ([facility]) ([facility]) Chronic UTI Urinary tract infection, site not specified Acute pain of left shoulder documented in this encounter Additional Health Concerns Infection Onset Date Last Indicated Resolved Time COVID: Recovered Comment:Added based on recent COVID infection. 06/17/2022 06/18/2022 10/15/2022 3:[address] documented as of this encounter Care Teams Warp Starter Relationship Specialty Start Date End Date Modesto Reyez DO PCP - General Internal Medicine 01/03/20 01/13/23 documented as of this encounter
--- OUTSIDE RECORDS SUMMARY | 2024-11-15 05:58 | XMS_ITS | Encounter Summary ---
Author Organization [facility] Address [address] [place] [address] Care Team Providers Care Reinsurance Analyst Name Role Phone Modesto Reyez DO Primary Care Provider [phone] Encounter Details Date Type Department Care Team (Late st Contact Info) Description 10/03/2021 Orders Only [facility] Cardiology [address] [place] [address] Efrain Rodriguez MD [address] [id number] Social History Tobacco Use Types Packs/Day Years Used Date Smoking Tobacco: Never Smokeless Tobacco: Never Alcohol Use Standard Drinks/Week Comments Not Currently 0 (1 standard drink = 0.6 oz pur e alcohol) Comments Unknown Sex and Gender Information Value Date Recorded Sex Assigned at Not on file 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 Gender Identity Female 05/04/2020 3:33 PM CDT Sexual Orientation Not on file documented as of this encounter Plan of Treatment Not on file documented as of this encounter Procedures Procedure Name Priority Date/Time Associated Diagnosis Comments CARDIOLOGY DOCUMENT SCAN Routine 10/03/2021 documented in this encounter Results * SCAN - CARDIOLOGY (10/03/2021) Anatomical Region Laterality Modality Other Efrain Rodriguez MD CV CARDIAC SERVICES PROCEDURES F inal Result documented in this encounter Visit Diagnoses Not on filedocumented in this encounter Care Teams Reinsurance Analyst Relationship Specialty Start Date End Date Modesto Reyez DO PCP - General Internal Medicine 01/03/20 01/13/23 documented as of this encounter
--- OUTSIDE RECORDS SUMMARY | 2024-11-15 05:58 | XMS_ITS | Encounter Summary ---
Author Organization [facility] Address [address] [place] [address] Phone Care Team Providers Care Paste Plant Supervisor Name Role Phone Modesto Reyez DO Primary Care Provider [phone] Reason for Visit * Reason Onset Date Comments appt change and status update 05/23/2022 Encounter Details Date Type Department Care Team (Late st Contact Info) Description 05/23/2022 Telephone [facility] Rheumatology [address] [place] [address] 5th [place] [address] [place] [address] Tomeka Kwok RMA appt change and status update Social History Tobacco Use Types Packs/Day Years Used Date Smoking Tobacco: Never Smokeless Tobacco: Never Alcohol Use Standard Drinks/Week Comments Not Currently 0 (1 standard drink = 0.6 oz pur e alcohol) Comments Unknown Sex and Gender Information Value Date Recorded Sex Assigned at Not on file 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 Was informed that it was approved and shipped to patient's home on June 21. * Telephone Encounter - Sandra Bauman MD - 05/24/2022 12:51 PM CDT Spoke with the daughter. Patient currently in house for rib fractures, pulmonary edema, and COVID. Denies any hemoptysis. Is being seen by Cardiology. Please facilitate in rescheduling her appointment and follow-up on Orencia. * Telephone Encounter - Tomeka Kwok RMA - 05/23/2022 3:21 PM CDT Patient's daughter Mae called our office stating she will cancel Saturday's appt as patient is currently hospitalized due to a fall she had on Saturday/Saturday. She is currently at [facility]. Cheryl states she has blood in lungs and 3 broken ribs. She is awaiting xrays of her hip for hip pain. She also tested positive for covid. She will call us upon discharge to re-schedule appt. documented in this encounter Plan of Treatment [...] the result is from a facility outside [facility] . 05/22/2022 05/27/2022 06/17/2022 3:05 AM CDT COVID: Recovered Comment:Added based on recent COVID infection. 06/17/2022 06/18/2022 10/15/2022 3:[address] documented as of this encounter Care Teams Paste Plant Supervisor Relationship Specialty Start Date End Date Modesto Reyez DO PCP - General Internal Medicine 01/03/20 01/13/23 documented as of this encounter
--- OUTSIDE RECORDS SUMMARY | 2024-11-15 05:58 | XMS_ITS | Encounter Summary ---
Author Organization [facility] Address [address] [place] [address] Phone Care Team Providers Care Set Up Operator Name Role Phone Modesto Reyez DO Primary Care Provider [phone] Encounter Details Date Type Department Care Team (Late st Contact Info) Description 11/28/2021 Telephone [facility] Pulmonary [address] 8th [place] [address] [place] [id number] Denita Correa MD [address] [place] [address] Social History Tobacco Use Types Packs/Day Years Used Date Smoking Tobacco: Never Smokeless Tobacco: Never Alcohol Use Standard Drinks/Week Comments Not Currently 0 (1 standard drink = 0.6 oz pur e alcohol) Comments Unknown Sex and Gender Information Value Date Recorded Sex Assigned at Not on file Legal Sex 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 Cho - patient does have diagnosis of RA. He does not feel MMF or azathioprinewould have much benefit for joint symptoms. Given current COVID surge would favor using something like tocilizumab over rituximab currently. His office will look into it. Also discussed with patient's daughter. MANAGER documented in this encounter Plan of Treatment Not on file documented as of this encounter Visit Diagnoses Not on filedocumented in this encounter Care Teams Set Up Operator Relationship Specialty Start Date End Date Modesto Reyez DO PCP - General Internal Medicine 01/03/20 01/13/23 documented as of this encounter
--- OUTSIDE RECORDS SUMMARY | 2024-11-15 05:58 | XMS_ITS | Encounter Summary ---
Author Organization [facility] Address [address] [place] [address] Care Team Providers Care Light Rail Transit Operator Name Role Phone Modesto Reyez DO Primary Care Provider [phone] Encounter Details Date Type Department Care Team (Late st Contact Info) Description 10/05/[address] 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 ----- Message from Myles Reyes MD sent at 10/05/2021 1:53 PM WORM FARMER ----- No atrial fibrillation noted during this study. Occasional PACs and PVCs. Symptoms correspond with sinus rhythm, sinus tachycardia and occasional brief atrial runs. FARMER FARMER documented in this encounter Plan of Treatment Not on file documented as of this encounter Visit Diagnoses Not on filedocumented in this encounter Care Teams Light Rail Transit Operator Relationship Specialty Start Date End Date Modesto Reyez DO PCP - General Internal Medicine 01/03/20 01/13/23 documented as of this encounter
--- OUTSIDE RECORDS SUMMARY | 2024-11-15 05:58 | XMS_ITS | Encounter Summary ---
Author Organization [facility] Address [address] [place] [address] Care Team Providers Care Singer And Unloader Name Role Phone Modesto Reyez DO Primary Care Provider [phone] Reason for Visit * Reason Comments COVID-19 EVALUATION * Auth/Cert Specialty Diagnoses / Procedures Referred By Contac t Referred To Contact Diagnoses Acute on chronic heart failure, unspecified heart failure type (HCC) Procedures na Referral ID Status Reason Start Date Expiration Date Visits Re quested Visits Authorized [id number] 1 1 Encounter Details Date Type Department Care Team (Latest Contact Info) Description 05/27/2022 11:58 AM CDT - 06/07/2022 6:40 PM CDT Hospital Encounter [facility] [address] [place] [address] Gene Nails MD [address] [place] [address] Moisés Yeboah MD [address] [facility] [address] [place] [address] Timothy Hernandez MD [address] [place] [address] Manoj Joseph [address] [address] Tamera Garza MD [address] [place] [address] Edilma Chang MD [address] [place] [address] Acute on chronic heart failure, unspecified heart failure type (HCC) (Primary Dx) Discharge Disposition: Discharge to SNF Social History Tobacco Use Types Packs/Day Years Used Date Smoking Tobacco: Never Smokeless Tobacco: Never Alcohol Use Standard Drinks/Week Comments Not Currently 0 (1 standard drink = 0.6 oz pur e alcohol) Comments Unknown Sex and Gender Information Value Date Recorded Sex Assigned at Not on file Legal Sex 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 Gender Identity Female 05/04/2020 3:33 PM CDT Sexual Orientation Not on file 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 Not on file Not on file Not on file documented as of this encounter Last Filed Vital Signs Vital Sign Reading Time Taken Comments Blood Pressure 113/59 06/07/2022 4:10 PM CDT Pulse 79 06/07/2022 4:10 PM CDT Temperature 36.6 ??C (97.9 ??F) 06/07/2022 4:10 PM CD T Respiratory Rate 16 06/07/2022 4:10 PM CDT Oxygen Saturation 98% 06/07/2022 4:10 PM CDT Inhaled Oxygen Concentration - - Weight 110.2 kg (242 lb 15.2 oz) 06/07/2022 5:55 AM CDT Height 157.5 cm (5' 2 ) 05/27/2022 7:10 PM CDT Body Mass Index 44.44 05/27/2022 7:10 PM CDT documented in this encounter Discharge Summaries * Edilma Chang MD - 06/07/2022 12:08 PM CDT Inpatient Discharge Summary BRIEF OVERVIEW Admitting Provider: Gene Nials MD Discharge Provider: Edilma Chang MD Primary Care Physician at Discharge: Modesto Reyez DO [phone] Admission Date: 05/27/2022 Discharge Date: 06/07/2022 Admission Location: [facility] Problems/Diagnoses: Principal Problem (Resolved): Acute on chronic heart failure ([facility]/HCC) ([facility]) Active Problems: Longstanding persistent atrial fibrillation ([facility]/HCC) ([facility]) Rheumatoid arthritis (HCC) Morbid obesity with BMI of 45.0-49.9, adult ([facility]) ([facility]) STARR on CPAP ILD (interstitial lung disease) ([facility]) ([facility]) Chronic respiratory failure with hypoxia ([facility]) ([facility]) Hyperlipidemia, unspecified Recurrent major depressive disorder, in partial remission ([facility]) COVID-19 Rib fracture Hypothyroidism Resolved Problems: Bacterial pneumonia UTI (urinary tract infection) due to Enterococcus MIKE (acute kidney injury) ([facility]) ([facility]) Hyperkalemia DETAILS OF HOSPITAL STAY Presenting Problem/History of Present Illness: 72 w/ hx of RA, ILD on 2L rest 4L exertion, AF who presents with leg swelling ?? She states she was in her usual state of health approximately early April described as walking 40 feet at a time using a walker, climbing 7 steps at a time, requiring 2L at rest, 4L with exertion, andindependent of ADL until her cardiology appointment (05/10) where they were happy that she had lost weight on a diuretic regimen of 60mg daily. Afterwards she stated that she may have drank more soda and ate more unhealthy food. During the week after her appointment, she noticed increased leg swelling without orthopnea, or dyspnea on exertion (although is extremely functionaly limited at baseline). ?? Then on 05/22 at night, she was unable to lift her legs to get on the bed. She subsequently had a mechnaical fall without hitting her heard or prodoromal symptoms. She fell on her side and her family took her to the ED. She received a CT chest that showed three left sided rib fractures and GGOs consistent with her underlying ILD. She received pain medications for her rib fractures but only home diuretics for her leg swelling. To note, her discharge medication list from [facility] includescefdinir. She was discharged on 05/26 to [facility] facility. When she was at the facility, she was too lethargic and unable to work with therapy and decided to go to [facility] ER on 05/27. To note, she states she has had a new productive green cough only after eating for 3-4 weeks that has been unchanged. ?? On arrival to [facility] ER, her vital signs were stable saturating 98% on home 2L O2 at rest. Her diagnostic tests were pertinent for +COVID test. She was treated as a COPD and HF exacerbation and receivedceftriaxone, azithromycin, and 40 IV lasix. ?? Her current complaints is generalized fatigue and bilateral leg swelling minimally greater than usual. Hospital Course: Acute on chronic heart failure 2/2 dietary indiscretion vs COVID or bacterial pneumonia. IV diuresed ~3kg. Not severely decompensated. Transitioned to oral diuretics when euvolemic on 05/30. Home lasix 60 daily was initially decreased to 40mg daily, then held for rising Cr for 7 days, since 06/03 and should be restarted on 06/10. The home metoprolol 125mg daily was dose reduced for bradycardia, and then discontinued altogether due to persistent normocardia with pauses. Pt needs to follow up with her cardiologists to eval needfor it. Last TTE 12/2021 per outside notes with EF 55-60%. Strict I/o, daily weights were maintained. 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 Tramadol and miralax were offered daily prn. Incentive spirometry and early mobilitywere encouraged. She required SNF at discharge, but needed new referrals as patient & daughter did not want her going back to prior facility. Bacterial pneumonia Reported two weeks of productive green sputum prior to admission. Was started on cefdinir for PNA and UTI at OSH starting 05/22 and completed 7 total days of antibiotics (Azith, CTX) on 05/29/22. COVID-19 Symptomatic with lethargy, leg swelling, and cough. Tested + on 05/22/22 at [facility] (external result entered and pic of result in media tab). s/p remdesivir x2 days for high risk->stoppedfor bradycardia/pauses w/HR 30-40. Pulm stable on home oxygen requirement. Tested +COVID on 05/22, needs full 20 days isolation before quarantine can be lifted ~06/12 per IP Chronic respiratory failure with hypoxia 2/2 ILD, STARR, COVID. She was placed on continuous pulse ox while with COVID. She remained afebrile,HD stable on her baseline oxygen requirement of 2L at rest, 4L with exertion throughout her hospitalization. The home prednisone 15 mg was continued. She was started on daily anoro. STARR on CPAP CPAP at night-home unit brought in by daughter, used nightly. Rheumatoid arthritis Held abatacept (DMARD) during acute illness phase, per rheumatology it can be resumed on discharge.Continued plaquenil. Permanent atrial fibrillation Pt remained in afib with slow ventricular rate with intermittent pauses up to 3 seconds. Initially continued home metoprolol, which ended up being discontinued due to the persistent pauses. Remdesivir dc'd due to bradycardia/pauses. Pt was continued on eliquis. Pt needs to see her repeat photocomposing machine operator to re-eval her need for rate control. UTI (urinary tract infection) due to Enterococcus pt with Hx chronic UTis, on trimethoprim chronically->follows outpatient with Urology. WBC elevated to 10.6 on 05/29/22. UA with 3+ leukocytes, 3+ blood, 2+ bacteria, RBCs 11-20, >50 WBCs, patient denied symptoms, afebrile. Urine culture Greater than or equal to 100,000 colonies/mL of Enterococcus faecium->Amp resistant. S/p Linezolid 600mg PO BID on 06/01 - 06/07. Held Zoloft while on Linezolid (avoid serotonin syndrome), will be restarted on discharge. Active Issues Requiring Follow-up: -Lasix held due to MIKE. To restart on 06/10 (after 7 day hold). Depending on exam and BMP, as 40mg or 60mg daily. -Please check electrolytes and renal function in 1 week. -please continue daily standing weights and eval for lower extremity edema -stay on covid quarantine until 06/12. Discharge Details Physical Exam at Discharge: Discharge Condition: good Pulse: 80 Resp: 16 BP: 142/69 Temp: 36.5 ??C (97.7 ??F) Weight: 110.2 kg (242 lb 15.2 oz) Pertinent Exam Findings at Discharge: Morbidly obese woman in NAD. Friendly. AAO x4, knows all her meds and history. On 2L NC at rest. Comfortable. Mild fine crackles at bases. No cough. Soft abdomen. No lower extremity edema. Non tender to palpation of shins. Discharge Disposition: FULL Code Status at Discharge: FULL Discharge Medications: Current Medications TAKE these medications calcium carbonate-vit D3-min 600 mg calcium- 400 unit tablet Take by mouth 2 (two) times a day cholecalciferol 2000 unit tablet Take 1,000 Units by mouth daily Commonly known as: VITAMIN D-3 cholestyramine 4 gram packet Commonly known as: QUESTRAN cyanocobalamin 2,000 mcg tablet Take 1,000 mcg by mouth daily DULoxetine DR 20 mg capsule Take 20 mg by mouth daily Commonly known as: CYMBALTA Eliquis 5 mg tablet Take 5 mg by mouth 2 (two) times a day Generic drug: apixaban hydrOXYchloroQUINE 200 mg tablet Take 200 mg by mouth 2 (two) times a day Commonly known as: PLAQUENIL levothyroxine 112 mcg tablet Take 112 mcg by mouth daily Commonly known as: SYNTHROID Orencia ClickJect 125 mg/mL auto-injector Inject 1 mL (125 mg total) under the skin once a week Generic drug: abatacept phenazopyridine 200 mg tablet TAKE 1 TABLET BY MOUTH THREE TIMES DAILY NEEDED FOR URINARY SYMPTOMS Commonly known as: PYRIDIUM pravastatin 80 mg tablet Take 80 mg by mouth daily Commonly known as: PRAVACHOL predniSONE 5 mg tablet Take 15 mg by mouth every morning Commonly known as: DELTASONE sertraline 50 mg tablet Take 50 mg by mouth daily Commonly known as: ZOLOFT traMADoL 50 mg tablet Take by mouth every 8 (eight) hours as needed Commonly known as: ULTRAM trimethoprim 100 mg tablet Take 100 mg by mouth nightly at bedtime. Commonly known as: TRIMPEX umeclidinium-vilanteroL 62.5-25 mcg/actuation blister with device Inhale 1 puff daily Commonly known as: ANORO ELLIPTA Start taking on: June 08, 2022 Outpatient Follow-Up: Future Appointments Date Time Provider Department Center 06/15/2022 9:30 AM PFT 4 [facility] 8[facility] 06/15/2022 10:15 AM ILD [facility]IN[facility] P[facility] 09/13/2022 9:15 AM Myles Reyse MD [facility] documented in this encounter Discharge Instructions * Discharge Instructions* Edilma Chang MD - 06/07/2022 12:16 PM CDT -Lasix held due to MIKE. To restart on 06/10 (after 7 day hold). -Please check electrolytes and renal function in 1 week. -please continue daily standing weights and eval for lower extremity edema -stay on covid quarantine until 06/12. documented in this encounter Medications at Time [...] Take 1,000 mcg by mouth daily 2 hydroxychloroquin e (PLAQUENIL) 200 mg tablet [...] 50 mg by mouth daily 10/23/2021 2 trimethoprim (TRIMPEX) 100 mg tablet Take 100 mg by mouth nightly at bedtime. 02/23/2022 2 umeclidinium-robina nteroL (ANORO ELLIPTA) 62.5-25 mcg/actuation blister with device Inhale 1 puff daily 1 each 06/08/2022 2 documented as of this encounter Ordered Prescriptions Prescription Sig Dispense Quantity Refills Last Filled Start Date End Date umeclidinium-vilan teroL (ANORO ELLIPTA) 62.5-25 mcg/actuation blister with device Inhale 1 puff daily 1 each 06/08/2022 07/03/2022 documented in this encounter Discharge Disposition Disposition Code Departure Means Destination Discharge to [facility] ([place], [place]) documented in this encounter Progress Notes * Hugo Reyna RN - 06/07/2022 12:39 PM CDT 06/07/22 1238 Discharge Summary Chart reviewed For Medical Necessity Does patient have a planned readmission to hospital planned? No Discharge Disposition SNF, Medicare, Short Term Skilled Specify Facility [facility] Facility Contact Number [phone] Discharge Records Transfer Form Completed Discharge Additional Assistance Does the patient need discharge transport arranged? Yes Has discharge transport been arranged? Yes Details of Transportation [facility] trip# [id number] What day is the transport expected? 06/07/22 What time is the transport expected? 1400 Discharge Transportation Communication Mode of transport has been discussed with the patient/family. All are agreeable to the plan and understand their responsibilities to ensure the safe transfer. No further CM/SW intervention is anticipated at this time. Post Discharge Care Provider Post Discharge Care Plan Next level of care provider has access to complete EMR Per medical team, patient is medically stable for discharge at this time. Patient has been [facility]. CM spoke with the patient/family, admissions, medical team and RN in regards to discharge planning and all are agreeable to discharge. Post-acute care transfer packet completed and will be sent with the patient. RN provided with report number to nurses station. Room # 204-2provided by facility. Mode of transport has been discussed with the patient/family, MD, nursing staff. All are agreeable to plan and understand their responsibilities to ensure the safe transfer. Hugo Reyna RN Case Manager * Edilma Chang MD - 06/07/2022 12:07 PM CDT Daily Progress Note Division of Hospital Medicine Name: Ayanna Gibbs Today: June 07, 2022 : 1950 Age: 72 y.o. female Admit: 05/27/2022 Bed: [id number] Subjective Chief complaint: Shortness of breath Interval History: NAEON. Had dry cough last night, none this morning. Breathing is stable. Yesterday K 4.2 and creat improved to 1.44, while holding lasix. Pt feels LE edema is not existent, but is worried because she has gained 3lbs over the last few days. (Standing weight). Going to SNF today. Objective Medications: Scheduled: apixaban, 5 mg, oral, Q12H DELFIN cholecalciferol, 1,000 Units, oral, Daily cholestyramine-aspartame, 1 packet, oral, Daily - 0600 cyanocobalamin, 2,000 mcg, oral, Daily hydrOXYchloroQUINE, 200 mg, oral, BID levothyroxine, 112 mcg, oral, Daily linezolid, 600 mg, oral, BID pravastatin, 80 mg, oral, Daily predniSONE, 15 mg, oral, QAM [Held by Provider] sertraline, 50 mg, oral, Daily [Held by Provider] trimethoprim, 100 mg, oral, Nightly umeclidinium-vilanteroL, 1 puff, inhalation, Daily Infusions: PRN: ??? acetaminophen ??? albuterol HFA ??? polyethylene glycol ??? ramelteon ??? traMADoL Vitals: 24hr Min/Max: Temp Min: 36.4 ??C (97.5 ??F) Max: 36.7 ??C (98.1 ??F) Pulse Min: 52 Max: 80 BP Min: 110/77 Max: 142/69 Resp Min: 16 Max: 17 SpO2 Min: 98 % Max: 100 % Vitals: 06/07/22 0846 BP: 142/69 Pulse: 80 Resp: 16 Temp: 36.5 ??C (97.7 ??F) SpO2: 100% Intake/Output Summary (Last 24 hours) at 06/07/2022 1200 Last data filed at 06/07/2022 0500 Gross per 24 hour Intake 100 ml Output 1800 ml Net -1700 ml Physical Exam Vitals reviewed. Constitutional: General: She is not in acute distress. Appearance: She is obese. She is not ill-appearing, toxic-appearing or diaphoretic. HENT: Head: Normocephalic and atraumatic. Right Ear: External ear normal. Left Ear: External ear normal. Eyes: General: No scleral icterus. Conjunctiva/sclera: Conjunctivae normal. Cardiovascular: Rate and Rhythm: Normal rate. Rhythm irregular. Pulses: Normal pulses. Heart sounds: Normal heart sounds. Pulmonary: Effort: Pulmonary effort is normal. No respiratory distress. Breath sounds: Normal breath sounds. Abdominal: General: Abdomen is flat. Bowel sounds are normal. There is no distension. Palpations: Abdomen is soft. Tenderness: There is no abdominal tenderness. Musculoskeletal: General: No swelling or tenderness. Right lower leg: No edema. Left lower leg: No edema. Skin: General: Skin is warm and dry. Neurological: General: No focal deficit present. Mental Status: She is alert and oriented to person, place, and time. Psychiatric: Mood and Affect: Mood normal. Behavior: Behavior normal. Thought Content: Thought content normal. Judgment: Judgment normal. Lab/Diagnostic Review: Recent Results (from the past 36 hour(s)) ECG 12 lead Collection Time: 06/06/22 7:22 AM Result Value Ref Range Ventricular Rate EKG/Min 62 BPM Atrial Rate 58 BPM QRS-Interval (MSEC) 122 ms QT-Interval (MSEC) 460 ms QTc 466 ms R Volcano -20 degrees T Volcano 74 degrees Diagnosis Atrial fibrillation Left ventricular hypertrophy with QRS widening Nonspecific ST abnormality Abnormal ECG No previous ECGs available POCT glucose Collection Time: 06/06/22 8:14 AM Result Value Ref Range Glucose, POC 72 70 - 199 mg/dL Basic metabolic panel Collection Time: 06/06/22 12:46 PM Result Value Ref Range Sodium 140 135 - 145 mmol/L Potassium, pl 4.2 3.3 - 4.9 mmol/L Chloride 103 97 - 110 mmol/L CO2 31 22 - 32 mmol/L Anion gap 6 2 - 15 mmol/L BUN 31 (H) 8 - 25 mg/dL Creatinine 1.44 (H) 0.60 - 1.10 mg/dL Glucose 118 70 - 199 mg/dL Calcium 10.0 8.5 - 10.3 mg/dL eGFR Collection Time: 06/06/22 12:46 PM Result Value Ref Range eGFR 38 (L) 90 - 130 mL/min/1.73 m2 I have reviewed the laboratory results. Imaging Results: ECG 12 lead Gene Nails MD 05/27/2022 3:56 PM ECG [...] ED XR Chest Pa Lateral 2 Vw Narrative: EXAMINATION: 2 view chest radiograph Impression: [...] and agrees with it. Electronically signed by: Vincent Obed Mellnick, M.D. Telemetry I have independently reviewed and interpreted telemetry, which showed Atrial fibrillation and slow ventricular response. Intermittent pauses Assessment/Plan Hyperkalemia Assessment & Plan K 5.6 on 06/06, likely in setting of MIKE K trend: 4.4 -> 4.9 -> 5.1 -> 5.6 -> normalized after lokelma. No ECG changes 06/06 AM Scheduled lokelma TID x 1 day MIKE (acute kidney injury) ([facility]) ([facility]) Assessment & Plan Baseline Cr ~1.3, increased to 1.8 in setting of diuresis Currently holding home furosemide. Had MIKE which improved with holding lasix. Hyperkalemia normalized on next check. Hypothyroidism Assessment & Plan Continue levothyroxine. UTI (urinary tract infection) due to Enterococcus Assessment & Plan Pt with Hx chronic UTis, on trimethoprim chronically->follows outpatient with Urology. UA with 3+ leukocytes, 3+ blood, 2+ bacteria, RBCs 11-20, >50 WBCs. Patient report urinary frequency. Urine culture Greater than or equal to 100,000 colonies/mL of Enterococcus faecium - Linezolid 600mg po BID, plan 7 days (last dose 06/07). Holding Zoloft while on Linezolid (avoid serotonin syndrome) COVID-19 Assessment & Plan Symptomatic with lethargy, leg swelling, and cough. Tested + on 05/22/22 at [facility] (external result entered and pic of result in media tab). S/p remdesivir x2 days for high risk->stoppedfor bradycardia/pauses w/HR 30-40, though these have persisted days later - Per IP, pt needs 20 full days COVID isolation before quarantine can be lifted (immunosuppressed on abatacept). Isolation can be lifted 06/12 -stable for discharge if SNF has COVID bed, or improves w/PT enough to safely go home, otherwise toremain inpatient until isolation lifted. Recurrent major depressive disorder, in partial remission ([facility]) Assessment & Plan Holding home SSRI in setting of linezolid use, okay to resume following completion of antibiotic course Hyperlipidemia, unspecified Assessment & Plan c/w pravastatin Chronic respiratory failure with hypoxia ([facility]) ([facility]) Assessment & Plan 2/2 ILD, STARR. Baseline 2L at rest, 4L w/ exertion -Continuous pulse ox while with COVID. -cont home prednisone, holding abetacept while acutely ill -> per rheum okay to restart as an outpatient -cont CPAP QHS on home machine. ILD (interstitial lung disease) ([facility]) ([facility]) Assessment & Plan No increased oxygen requirement or symptoms of dyspnea. Baseline 2L at rest, 4L w/ exertion. Home meds = pred 15, abetacept; follows with Dr. Bauman - discussed with Rheum for timing of abetacept resumption, ok to resume on discharge. - Continue pred 15 mg STARR on CPAP Assessment & Plan CPAP at night-home unit at bedside, brought in by daughter Encourage nightly use. Morbid obesity with BMI of 45.0-49.9, adult ([facility]) ([facility]) Assessment & Plan PT/OT consulted. Rheumatoid arthritis ([facility]) Assessment & Plan Home meds: prednisone, plaquenil, abatacept - Hold abatacept in setting of acute illness -> okay to resume upon DC - Cont home plaquenil and prednisone Paroxysmal atrial fibrillation ([facility]) ([facility]) Assessment & Plan History of chronic A.fib prior to admission. Home regimen = metoprolol XL 125, eliquis. 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) ([facility]) Assessment & Plan 2/2 dietary indiscretion vs COVID vs bacterial [...] EF 55-60% -strict I/o, daily standing weights Discharge Planning I have spent 45 minutes on discharge planning activities. Time spent was on Coordination of care, counseling patient. * Keren Mary, OT - 06/06/2022 3:07 PM CDT Occupational Therapy 06/06/22 1458 General OT Missed Visit Reason Patient declined (Per PT, pt declined despite encouragement. OT will continue to follow) Recommendation/Plan OT - Next Appointment 06/07/22 * Esther Santos, PT - 06/06/2022 2:44 PM CDT Physical Therapy 06/06/22 1444 General PT Missed Visit Reason Patient declined (Pt. reports she has a headache and just took tylenol. Requests PT come back at a later time/date for mobility) * Silverio Daley MD - 06/06/2022 11:10 AM CDT Daily Progress Note Division of Hospital Medicine Name: Ayanna Gibbs Today: June 06, 2022 : 1950 Age: 72 y.o. female Admit: 05/27/2022 Bed: [id number] Subjective Chief complaint: COVID-19 Interval History: NAEO. Pt remains stable with no new complaints. States that breathing is at baseline with no worsening of symptoms - remains on stable 2L at rest. Pt hyperkalemic overnight requiring lokelma, no ECG changes. MIKE worsening. Asymptomatic. Objective Medications: Scheduled: apixaban, 5 mg, oral, Q12H DELFIN cholecalciferol, 1,000 Units, oral, Daily [Held by Provider] cholestyramine-aspartame, 1 packet, oral, Daily - 0600 cyanocobalamin, 2,000 mcg, oral, Daily hydrOXYchloroQUINE, 200 mg, oral, BID levothyroxine, 112 mcg, oral, Daily linezolid, 600 mg, oral, BID pravastatin, 80 mg, oral, Daily predniSONE, 15 mg, oral, QAM [Held by Provider] sertraline, 50 mg, oral, Daily sodium zirconium cyclosilicate, 10 g, oral, TID [Held by Provider] trimethoprim, 100 mg, oral, Nightly umeclidinium-vilanteroL, 1 puff, inhalation, Daily Infusions: PRN: ??? acetaminophen ??? albuterol HFA ??? polyethylene glycol ??? ramelteon ??? traMADoL Vitals: 24hr Min/Max: Temp Min: 36.3 ??C (97.3 ??F) Max: 36.7 ??C (98.1 ??F) Pulse Min: 64 Max: 78 BP Min: 106/93 Max: 138/72 Resp Min: 18 Max: 18 SpO2 Min: 99 % Max: 100 % Most Recent: Vitals: 06/06/22 0815 BP: 106/93 Pulse: 66 Resp: 18 Temp: 36.4 ??C (97.5 ??F) SpO2: 100% Intake/Output Summary (Last 24 hours) at 06/06/2022 1110 Last data filed at 06/06/2022 0715 Gross per 24 hour Intake 600 ml Output 700 ml Net -100 ml Physical Exam Constitutional: Appearance: Normal appearance. HENT: Head: Normocephalic and atraumatic. Cardiovascular: Rate and Rhythm: Regular rhythm. Bradycardia present. Pulmonary: Effort: Pulmonary effort is normal. Comments: Pt remains on home O2 2L at rest Abdominal: General: Abdomen is flat. Palpations: Abdomen is soft. Musculoskeletal: General: Normal range of motion. Neurological: General: No focal deficit present. Mental Status: She is alert. Lab/Diagnostic Review: Recent Results (from the past 36 hour(s)) Basic metabolic panel Collection Time: 06/05/22 9:57 PM Result Value Ref Range Sodium 140 135 - 145 mmol/L Potassium, pl 5.6 (H) 3.3 - 4.9 mmol/L Chloride 103 97 - 110 mmol/L CO2 29 22 - 32 mmol/L Anion gap 8 2 - 15 mmol/L BUN 35 (H) 8 - 25 mg/dL Creatinine 1.69 (H) 0.60 - 1.10 mg/dL Glucose 123 70 - 199 mg/dL Calcium 9.6 8.5 - 10.3 mg/dL Magnesium Collection Time: 06/05/22 9:57 PM Result Value Ref Range Magnesium 1.9 1.4 - 2.5 mg/dL eGFR Collection Time: 06/05/22 9:57 PM Result Value Ref Range eGFR 32 (L) 90 - 130 mL/min/1.73 m2 ECG 12 lead Collection Time: 06/06/22 7:22 AM Result Value Ref Range Ventricular Rate EKG/Min 62 BPM Atrial Rate 58 BPM QRS-Interval (MSEC) 122 ms QT-Interval (MSEC) 460 ms QTc 466 ms R Volcano -20 degrees T Volcano 74 degrees Diagnosis Atrial fibrillation Left ventricular hypertrophy with QRS widening Nonspecific ST abnormality Abnormal ECG No previous ECGs available POCT glucose Collection Time: 06/06/22 8:14 AM Result Value Ref Range Glucose, POC 72 70 - 199 mg/dL I have reviewed the laboratory results. Imaging Results: ECG 12 lead Gene Nails MD 05/27/2022 3:56 PM ECG [...] ED XR Chest Pa Lateral 2 Vw Narrative: EXAMINATION: 2 view chest radiograph Impression: [...] it. Electronically signed by: Sam Salas M.D. I have independently reviewed and interpreted results and vitals Assessment and Plan Hyperkalemia Assessment & Plan K 5.6 overnight, likely in setting of IMKE K trend: 4.4 -> 4.9 -> 5.1 -> 5.6 No ECG changes 713 AM Scheduled lokelma TID - Recheck BMP MIKE (acute kidney injury) ([facility] ([facility]) Assessment & Plan Baseline Cr ~1.3, increased to 1.8 in setting of diuresis Currently holding home furosemide. Cr worsened overnight 1.69, complicated by hyperkalemia Repeat BMP 1300 -> if does not improve will consider further workup, pt does endorse history of poor PO intake Continue to trend Cr. Monitor daily weight and volume status Hypothyroidism Assessment & Plan Continue levothyroxine. UTI (urinary tract infection) due to Enterococcus Assessment & Plan Pt with Hx chronic UTis, on trimethoprim chronically->follows outpatient with Urology. UA with 3+ leukocytes, 3+ blood, 2+ bacteria, RBCs 11-20, >50 WBCs. Patient report urinary frequency. Urine culture Greater than or equal to 100,000 colonies/mL of Enterococcus faecium - Linezolid 600mg po BID, plan 7 days (last dose 06/07). Holding Zoloft while on Linezolid (avoid serotonin syndrome) COVID-19 Assessment & Plan Symptomatic with lethargy, leg swelling, and cough. Tested + on 05/22/22 at [facility] (external result entered and pic of result in media tab). S/p remdesivir x2 days for high risk->stoppedfor bradycardia/pauses w/HR 30-40, though these have persisted days later - Per IP, pt needs 20 full days COVID isolation before quarantine can be lifted (immunosuppressed on abatacept). Isolation can be lifted 06/12 -stable for discharge if SNF has COVID bed, or improves w/PT enough to safely go home, otherwise toremain inpatient until isolation lifted. Recurrent major depressive disorder, in partial remission ([facility]) Assessment & Plan Holding home SSRI in setting of linezolid use, okay to resume following completion of antibiotic course Hyperlipidemia, unspecified Assessment & Plan c/w pravastatin Chronic respiratory failure with hypoxia ([facility] ([facility]) Assessment & Plan 2/2 ILD, STARR. Baseline 2L at rest, 4L w/ exertion -Continuous pulse ox while with COVID. -cont home prednisone, holding abetacept while acutely ill -> per rheum okay to restart as an outpatient -cont CPAP QHS ILD (interstitial lung disease) ([facility] ([facility]) Assessment & Plan No increased oxygen requirement or symptoms of dyspnea. Baseline 2L at rest, 4L w/ exertion. Home meds = pred 15, abetacept; follows with Dr. Bauman - Consult to Rheum for timing of abetacept resumption - Continue pred 15 mg STARR on CPAP Assessment & Plan CPAP at night-home unit at bedside, brought in by daughter Encourage nightly use. Rheumatoid arthritis ([facility]) Assessment & Plan Home meds: prednisone, plaquenil, abatacept - Hold abatacept in setting of acute illness -> okay to resume upon DC - Cont home plaquenil and prednisone Paroxysmal atrial fibrillation ([facility] ([facility]) Assessment & Plan History of chronic A.fib prior to admission. Home regimen = metoprolol XL 125, eliquis. Pt reports history of RVR as an outpatient, with recent home dose adjustment prior to admission - Hold metoprolol for series of bradycardia/pauses throughout admission- remains rate controlled (HR <110) off metoprolol - telemetry - Consider outpatient f/u w/ cardiology for further management upon DC * Acute on chronic heart failure ([facility]) ([facility]) Assessment & Plan 2/2 dietary indiscretion vs COVID vs bacterial pneumonia. -Diuresed with IV lasix, now euvolemic->on home 60mg po Lasix since 05/30 (held 06/03-06/05 secondary to MIKE) -stable pulmonary status on home oxygen need (2L at rest, 4L with activity) -Holding metoprolol in setting of recurrent bradycardia and pauses on tele -last TTE 12/2021 per outside notes with EF 55-60% -strict I/o, daily standing weights (overall down ~4 kg since admit) Silverio Daley MD Internal Medicine, PGY-2 06/06/2022 11:10 AM Cosigned by Edilma Chang MD at 06/06/2022 2:37 PM CDT Associated attestation - Edilma Chang MD - 06/06/2022 2:37 PM CDT I have seen and examined the patient on 06/06. I agree with the findings and plan of care as documented in the resident's/fellow's note.. EKG this AM without changes concerning for hyperkalemia. Given lokelma. Repeat BMP with normal K and improved creat to 1.4. Pt felt well and had no complaints. Likely dc tomorrow. * Belkys Platt RRT - 06/06/2022 1:17 AM CDT Pt with STARR currently wearing her home machine. She self maintains and plan is continue therapy permd/flat polisher orders and respiratory guidelines. * Lisy Suarez RD - 06/05/2022 3:00 PM CDT Nutrition Assessment Reason for Assessment: Length of Stay Encounter Date: 06/05/22 3:12 PM Patient is a 72 y.o. female with chief complaint of leg swelling. LOS is 9 days. HPI: 72 y.o. female with ILD, HFpEF, HTN, pAFib and hx of DVT, COVID + at [facility] on 05/22/22 was admitted on 05/22 for 3 L sided rib fractures then discharged to [facility] yesterday now presenting for LE swelling that has not improved since recent admission. Also reporting worsening green sputum productive cough. COVID+ Objective Past Medical History: Diagnosis Date ??? Atrial [...] use: Never ??? Sexual activity: Never Alcohol Use: Not on file Family History Problem Relation Age of Onset ??? Hypertension Mother ??? Blood Clot Father ??? Clotting disorder Father ??? Rheum arthritis Father ??? No Known Problems Sister ??? No Known Problems Sister Anthropometrics: Wt Readings from Last 3 Encounters: 06/05/22 (!) 239.1 kg (527 lb 1.9 oz) 05/10/22 112.9 kg (249 lb) 04/17/22 117.9 kg (260 lb) Anthropometrics Weight: (!) 239.1 kg (527 lb 1.9 oz) Admission Weight : 116.4 kg Weight Change: 129.96 kg (286.52 lbs) IBW/kg (Calculated) : 49.9 kg Height: 157.5 cm (5' 2 ) Weight in (lb) to have BMI = 25: 136.4 BMI (Calculated): 96.4 Nutrition Needs Calculations: Calculated Energy Needs Using Equations Weight: (!) 239.1 kg (527 lb 1.9 oz) Height: 157.5 cm (5' 2 ) Vital Signs: BP: 120/64 Temp: 36.3 ??C (97.3 ??F) Pulse: 64 Resp: 18 SpO2: 98 % Medications: Scheduled Meds: apixaban, 5 mg, oral, Q12H DELFIN cholecalciferol, 1,000 Units, oral, Daily [Held by Provider] cholestyramine-aspartame, 1 packet, oral, Daily - 0600 cyanocobalamin, 2,000 mcg, oral, Daily hydrOXYchloroQUINE, 200 mg, oral, BID levothyroxine, 112 mcg, oral, Daily linezolid, 600 mg, oral, BID pravastatin, 80 mg, oral, Daily predniSONE, 15 mg, oral, QAM [Held by Provider] sertraline, 50 mg, oral, Daily [Held by Provider] trimethoprim, 100 mg, oral, Nightly umeclidinium-vilanteroL, 1 puff, inhalation, Daily Continuous Infusions: PRN Meds: ??? acetaminophen ??? albuterol HFA ??? polyethylene glycol ??? ramelteon ??? traMADoL Lab Review: Sodium Date Value Ref Range Status 06/04/2022 139 135 - 145 mmol/L Final Potassium, pl Date Value Ref Range Status 06/04/2022 5.1 (H) 3.3 - 4.9 mmol/L Final BUN Date Value Ref Range Status 06/04/2022 38 (H) 8 - 25 mg/dL Final Creatinine Date Value Ref Range Status 06/04/2022 1.53 (H) 0.60 - 1.10 mg/dL Final Magnesium Date Value Ref Range Status 06/04/2022 1.9 1.4 - 2.5 mg/dL Final Calcium Date Value Ref Range Status 06/04/2022 10.4 (H) 8.5 - 10.3 mg/dL Final No results found for: HGBA1C, HDL, LDLCALC, CHOL, TRIG Nursing Assessment: No intake or output data in the 24 hours ending 06/05/22 1512 Gastrointestinal Gastrointestinal (WDL): Within Defined Limits Abdomen Inspection: Soft, Rounded, Nondistended Bowel Sounds (All Quadrants): Active Palpation: Soft, Nontender Last BM Date: 06/05/22 Passing Flatus: Yes GI Symptoms: None Last BM Date: 06/05/22 Juan Scale Score: 17 Skin Integrity: (history of dark blotches on BLLE) Dietary Orders (From admission, onward) Start Ordered 05/28/22 0738 Adult Diet Restricted; 2 GM Sodium Diet effective now Question Answer Comment ([facility]) Diet type Restricted Fat / Sodium Restriction: 2 GM Sodium 05/28/22 0737 Impression: Pt screened for LOS She reports a good appetite and eating most of food. Amenable to Ensure 1x daily for when po intakes decreased. No n/v. Has diarrhea, believes it is not related to medical condition but rather d/t eating vegetables since admission. Does not typically eat vegetables at home. No chewing/swallowing difficulty. Reports wt loss d/t fluid losses. [employer] 250 lbs. Was on Lasix, currently on hold d/t too much fluid loss? Wt range since admit 233-250 lbs. Wt today 527 lbs, likely error when entered in flowsheets. Will order new wt. No pitting edema today. K elevated yesterday. On vitamin D and B12 supplementation NUTRITION DIAGNOSIS Nutrition Diagnosis 1: No nutrition issue at this time INTERVENTION Ensure Q D - chocolate Continue adequate po intakes New wt GOALS / MONITORING: Goals: Continue adequate PO intakes, Tolerance of medical food supplement by next assessment Interventions: Assess for nutrition changes, Medical food supplement, Orders weight check Monitoring and Evaluation: Appetite, Labs, Plan of care, PO intake, Stool patterns, Supplement tolerance, Weight changes Rossana Suarez M.S., RD, [facility] [phone] * Silverio Daley MD - 06/05/2022 1:25 PM CDT Daily Progress Note Division of Hospital Medicine Name: Ayanna Gibbs Today: June 05, 2022 : 1950 Age: 72 y.o. female Admit: 05/27/2022 Bed: [id number] Subjective Chief complaint: COVID-19 Interval History: NAEO. Pt remains stable with no new complaints. States that breathing is at baseline with no worsening of symptoms. Continuing to have episodes of variable pause and A.fib on Tele overnight, holding home metoprolol. Objective Medications: Scheduled: apixaban, 5 mg, oral, Q12H DELFIN cholecalciferol, 1,000 Units, oral, Daily cholestyramine-aspartame, 1 packet, oral, Daily - 0600 cyanocobalamin, 2,000 mcg, oral, Daily [Held by Provider] furosemide, 40 mg, oral, Daily hydrOXYchloroQUINE, 200 mg, oral, BID levothyroxine, 112 mcg, oral, Daily linezolid, 600 mg, oral, BID [Held by Provider] metoprolol XL, 50 mg, oral, Daily pravastatin, 80 mg, oral, Daily predniSONE, 15 mg, oral, QAM [Held by Provider] sertraline, 50 mg, oral, Daily [Held by Provider] trimethoprim, 100 mg, oral, Nightly umeclidinium-vilanteroL, 1 puff, inhalation, Daily Infusions: PRN: ??? acetaminophen ??? albuterol HFA ??? polyethylene glycol ??? ramelteon ??? traMADoL Vitals: 24hr Min/Max: Temp Min: 36.3 ??C (97.4 ??F) Max: 36.4 ??C (97.6 ??F) Pulse Min: 59 Max: 122 BP Min: 110/55 Max: 149/93 Resp Min: 16 Max: 18 SpO2 Min: 96 % Max: 98 % Most Recent: Vitals: 06/05/22 0822 BP: Pulse: 66 Resp: Temp: SpO2: No intake or output data in the 24 hours ending 06/05/22 1348 Physical Exam Constitutional: Appearance: Normal appearance. HENT: Head: Normocephalic and atraumatic. Cardiovascular: Rate and Rhythm: Regular rhythm. Bradycardia present. Pulmonary: Effort: Pulmonary effort is normal. Comments: Pt remains on home O2 2L at rest Abdominal: General: Abdomen is flat. Palpations: Abdomen is soft. Musculoskeletal: General: Normal range of motion. Neurological: General: No focal deficit present. Mental Status: She is alert. Lab/Diagnostic Review: Recent Results (from the past 36 hour(s)) Basic metabolic panel Collection Time: 06/04/22 9:22 PM Result Value Ref Range Sodium 139 135 - 145 mmol/L Potassium, pl 5.1 (H) 3.3 - 4.9 mmol/L Chloride 101 97 - 110 mmol/L CO2 29 22 - 32 mmol/L Anion gap 9 2 - 15 mmol/L BUN 38 (H) 8 - 25 mg/dL Creatinine 1.53 (H) 0.60 - 1.10 mg/dL Glucose 146 70 - 199 mg/dL Calcium 10.4 (H) 8.5 - 10.3 mg/dL Magnesium Collection Time: 06/04/22 9:22 PM Result Value Ref Range Magnesium 1.9 1.4 - 2.5 mg/dL eGFR Collection Time: 06/04/22 9:22 PM Result Value Ref Range eGFR 35 (L) 90 - 130 mL/min/1.73 m2 I have reviewed the laboratory results. Imaging Results: ECG 12 lead Gene Nails MD 05/27/2022 3:56 PM ECG [...] ED XR Chest Pa Lateral 2 Vw Narrative: EXAMINATION: 2 view chest radiograph Impression: [...] it. Electronically signed by: Sam Salas M.D. I have independently reviewed and interpreted results and vitals Assessment and Plan MIKE (acute kidney injury) (CMS/HCC) (HCC) Assessment & Plan Baseline Cr ~1.3, now up to 1.8 in the setting of diuresis. Currently holding home furosemide. Continue to trend Cr. Monitor daily weight and volume status Hypothyroidism Assessment & Plan Continue levothyroxine. UTI (urinary tract infection) due to Enterococcus Assessment & Plan Pt with Hx chronic UTis, on trimethoprim chronically->follows outpatient with Urology. UA with 3+ leukocytes, 3+ blood, 2+ bacteria, RBCs 11-20, >50 WBCs. Patient report urinary frequency. Urine culture Greater than or equal to 100,000 colonies/mL of Enterococcus faecium - Linezolid 600mg po BID, plan 7 days. Holding Zoloft while on Linezolid (avoid serotonin syndrome) COVID-19 Assessment & Plan Symptomatic with lethargy, leg swelling, and cough. Tested + on 05/22/22 at [facility] (external result entered and pic of result in media tab). S/p remdesivir x2 days for high risk->stoppedfor bradycardia/pauses w/HR 30-40, though these have persisted days later - Per IP, pt needs 20 full days COVID isolation before quarantine can be lifted (immunosuppressed on abatacept). Isolation can be lifted 06/12 -stable for discharge if SNF has COVID bed, or improves w/PT enough to safely go home, otherwise toremain inpatient until isolation lifted. Recurrent major depressive disorder, in partial remission ([facility]) Assessment & Plan Holding home SSRI in setting of linezolid use, okay to resume following completion of antibiotic course Hyperlipidemia, unspecified Assessment & Plan c/w pravastatin Chronic respiratory failure with hypoxia ([facility] ([facility]) Assessment & Plan 2/2 ILD, STARR. Baseline 2L at rest, 4L w/ exertion -Continuous pulse ox while with COVID. -cont home prednisone, holding abetacept while acutely ill. -cont CPAP QHS ILD (interstitial lung disease) ([facility] ([facility]) Assessment & Plan No increased oxygen requirement or symptoms of dyspnea. Baseline 2L at rest, 4L w/ exertion. Home meds = pred 15, abetacept; follows with Dr. Bauman - Consult to Rheum for timing of abetacept resumption - Continue pred 15 mg STARR on CPAP Assessment & Plan CPAP at night-home unit at bedside, brought in by daughter Encourage nightly use. Rheumatoid arthritis ([facility]) Assessment & Plan Home meds: prednisone, plaquenil, abatacept - Hold abatacept in setting of acute illness -> consult to rheum regarding timing of restarting upon DC - Cont home plaquenil and prednisone Paroxysmal atrial fibrillation ([facility]) ([facility]) Assessment & Plan History of chronic A.fib prior to admission. Home regimen = metoprolol XL 125, eliquis. Pt reports history of RVR as an outpatient, with recent home dose adjustment prior to admission - Hold metoprolol for series of bradycardia/pauses overnight - remains rate controlled (HR <110)off metoprolol - telemetry - Consider outpatient referral to cardiology for further management upon DC * Acute on chronic heart failure ([facility]) ([facility]) Assessment & Plan 2/2 dietary indiscretion vs COVID vs bacterial pneumonia. -Diuresed with IV lasix, now euvolemic->on home 60mg po Lasix since 05/30 (held 06/03-06/05 secondary to MIKE) -stable pulmonary status on home oxygen need (2L at rest, 4L with activity) -Holding metoprolol in setting of recurrent bradycardia and pauses on tele -last TTE 12/2021 per outside notes with EF 55-60% -strict I/o, daily standing weights (overall down ~4 kg since admit) Silverio Daley MD Internal Medicine, PGY-2 06/05/2022 1:49 PM Cosigned by Edilma Chang MD at 06/05/2022 2:03 PM CDT Associated attestation - Edilma Chang MD - 06/05/2022 2:03 PM CDT I have seen and examined the patient on 06/05. I agree with the findings and plan of care as documented in the resident's/fellow's note.. Feels well. On baseline O2. Creat improved with holding lasix. Is euvolemic on exam. Continues to have intermittent HR to 40s with pauses, cont to hold metop. Awaiting dc to SNF. * Belkys Platt RRT - 06/05/2022 12:35 AM CDT Pt with STARR currently wearing her home cpap machine. She self maintains and is tolerating it well. Continue therapy per md/flat polisher orders and respiratory guidelines. * Tamera Garza MD - 06/04/2022 6:04 PM CDT Daily Progress Note Division of Hospital Medicine Name: Ayanna Gibbs Today: June 04, 2022 : 1950 Age: 72 y.o. female Admit: 05/27/2022 Bed: [id number] Subjective Chief complaint: Shortness of breath Interval History: NAEON. No complaints today. Breathing is stable. Telemetry continues to show intermittent bouts of slow AF including a ~3 second pause. Cr remains ~1.8; diuretics held again. Plan SNF once placement found +/- COVID isolation completed. Objective Medications: Scheduled: apixaban, 5 mg, oral, Q12H DELFIN cholecalciferol, 1,000 Units, oral, Daily cholestyramine-aspartame, 1 packet, oral, Daily - 0600 cyanocobalamin, 2,000 mcg, oral, Daily [Held by Provider] furosemide, 40 mg, oral, Daily hydrOXYchloroQUINE, 200 mg, oral, BID levothyroxine, 112 mcg, oral, Daily linezolid, 600 mg, oral, BID [Held by Provider] metoprolol XL, 50 mg, oral, Daily pravastatin, 80 mg, oral, Daily predniSONE, 15 mg, oral, QAM [Held by Provider] sertraline, 50 mg, oral, Daily trimethoprim, 100 mg, oral, Nightly umeclidinium-vilanteroL, 1 puff, inhalation, Daily Infusions: PRN: ??? acetaminophen ??? albuterol HFA ??? polyethylene glycol ??? ramelteon ??? traMADoL Vitals: 24hr Min/Max: Temp Min: 36.3 ??C (97.3 ??F) Max: 36.9 ??C (98.4 ??F) Pulse Min: 54 Max: 74 BP Min: 114/70 Max: 136/59 Resp Min: 16 Max: 18 SpO2 Min: 97 % Max: 99 % Vitals: 06/04/22 1105 BP: 118/65 Pulse: 54 Resp: 16 Temp: 36.3 ??C (97.3 ??F) SpO2: 98% Intake/Output Summary (Last 24 hours) at 06/04/2022 1308 Last data filed at 06/04/2022 1130 Gross per 24 hour Intake 700 ml Output 1650 ml Net -950 ml Physical Exam Constitutional: NAD, well developed, obese Eyes: PERRL, EOMI, anicteric ENT: NCAT, oropharynx normal, moist mucus membranes Lungs: CTA, unlabored at rest, NC in place Cardiovascular: Irreg, syd, normal S1 and S2, no murmurs, no JVD appreciated GI: Soft, non-tender, non-distended, no organomegaly Skin: No new rashes, lesions or bruises on visible skin Extremities: Trace pretibial edema bilat, no cyanosis Neurologic: AOx4, CNII-XII intact, normal strength and sensation Psychiatric: Normal affect and mood, euthymic Lab/Diagnostic Review: Recent Results (from the past 36 hour(s)) Basic metabolic panel Collection Time: 06/03/22 9:16 PM Result Value Ref Range Sodium 138 135 - 145 mmol/L Potassium, pl 4.9 3.3 - 4.9 mmol/L Chloride 101 97 - 110 mmol/L CO2 30 22 - 32 mmol/L Anion gap 7 2 - 15 mmol/L BUN 41 (H) 8 - 25 mg/dL Creatinine 1.81 (H) 0.60 - 1.10 mg/dL Glucose 137 70 - 199 mg/dL Calcium 9.7 8.5 - 10.3 mg/dL Magnesium Collection Time: 06/03/22 9:16 PM Result Value Ref Range Magnesium 1.8 1.4 - 2.5 mg/dL eGFR Collection Time: 06/03/22 9:16 PM Result Value Ref Range eGFR 29 (L) 90 - 130 mL/min/1.73 m2 I have reviewed the laboratory results. Imaging Results: ECG 12 lead Gene Nails MD 05/27/2022 3:56 PM ECG [...] ED XR Chest Pa Lateral 2 Vw Narrative: EXAMINATION: 2 view chest radiograph Impression: [...] it. Electronically signed by: Sam Salas M.D. Telemetry I have independently reviewed and interpreted telemetry, which showed Atrial fibrillation and slow ventricular response. Intermittent pauses Assessment/Plan COVID-19 Assessment & Plan Symptomatic with lethargy, leg swelling, and cough. -Tested + on 05/22/22 at [facility] (external result entered and pic of result [...] w/PT enough to safely go home, otherwise toremain inpatient until isolation lifted. * [facility] failure [facility] [facility] ([facility] Assessment & Plan 2/2 dietary indiscretion vs COVID vs bacterial [...] weights (overall down ~4 kg since admit) MIKE (acute kidney injury) (CMS/[facility]) ([facility]) Assessment & Plan Baseline Cr ~1.3, now up to 1.8 in the setting of diuresis. Currently holding home furosemide. Continue to trend Cr. Monitor daily weight and volume status UTI (urinary tract infection) due to Enterococcus Assessment & Plan -pt with Hx chronic UTis, on trimethoprim chronically->follows outpatient with Urology -UA with 3+ leukocytes, 3+ blood, 2+ bacteria, RBCs 11-20, >50 WBCs. Patient report urinary frequency -WBC ~10, remains afebrile -Urine culture Greater than or equal to 100,000 colonies/mL of Enterococcus faecium -Sensitivities noted -Day #4 Linezolid 600mg po BID, plan 7 days. Holding Zoloft while on Linezolid (avoid serotonin syndrome) Chronic respiratory failure with hypoxia (CMS/[facility]) ([facility]) Assessment & Plan -2/2 ILD, STARR -Continuous pulse ox while with COVID. -Remains at baseline 2L at rest, 4L with exertion. -cont home prednisone, holding abetacept while acutely ill. -cont CPAP at night. ILD (interstitial lung disease) (CMS/HCC) ([facility]) Assessment & Plan No increased oxygen requirement or symptoms of dyspnea. c/w prednisone 15mg. Hold abetacept. Will need to coordinate timing of resumption with rheumatology (Dr. Sandra HILLMAN) closer to discharge. Paroxysmal atrial fibrillation (CMS/HCC) ([facility]) Assessment & Plan -Chronic, on home metoprolol (now holding for persistent bradycardia/pauses) and eliquis. Patient reports history of RVR at home with recent dose escalation to 125 mg XL -CTM on tele given bradycardia/pauses. Hypothyroidism Assessment & Plan Continue levothyroxine. Hyperlipidemia, unspecified Assessment & Plan c/w pravastatin STARR on CPAP Assessment & Plan CPAP at night-home unit at bedside, brought in by daughter Encourage nightly use. Rib fracture Assessment & Plan Tramadol prn. miralax daily prn. 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 -mobilize as able-pt needs LOTs of encouragement to participate, likes to stay in bed - PT/OT evals completed 05/31-rec SNF, multiple referrals pending Rheumatoid arthritis ([facility]) Assessment & Plan -Holding abatacept during acute illness. Continuing plaquenil and prednisone -will coordinate with rheumatology prior to discharge re: abatacept * Maria L Ghotra, PT - 06/04/2022 3:26 PM CDT Physical Therapy Progress Note NOTE: This is a summary note of the cuenca components of the treatment session. For full details, review chart for all flowsheets documented on by this physical therapy clinician on this date. Vital signs documented in vital signs flowsheet. Care plan progress documented in Care Plan Activity. For questions, please review the treatment team and contact the PT or FACILITY SUPERVISOR currently assigned to this patient. If a physical therapy clinician is not assigned to this patient, please call [phone]. 06/04/22 1526 PT Last Visit Session Type Treatment PT Received On 06/04/22 Subjective Agreeable to Therapy Subjective Comment Patient reports she sat in the chair for a few hours today. Family/Caregiver Present No Precautions Precautions Fall risk;STARR Activity Tolerance Activity Tolerance Comments rey: hard Pain Assessment Pain Assessment No/denies pain Cognition Arousal/Alertness Alert Orientation Oriented X4 (person, place, time, situation) Following Commands Follows all commands and directions without difficulty Compliance/Behavior Easy to engage Balance Balance Yes Static Sitting Balance Static Sitting-Balance Support No upper extremity supported;Feet supported Static Sitting-Sitting Surface Bed Static Sitting-Level of Assistance Distant supervision Static Sitting-Comment/# of Minutes for safety Static Standing Balance Static Standing-Balance Support Bilateral upper extremity supported (with walker) Static Standing-Standing Surface Floor Static Standing-Level of Assistance Distant supervision Static Standing-Comment/# of Minutes for safety; pt demonstrates flexed trunk posture Standing Standing-Exercises Lower extremity Standing-Exercise Comments sit to/from stand x 5 consecutive reps for LE strengthening and balance training; with UE support and with SBA for safety Equipment Use Equipment Use Comments gait belt used Bed Mobility Bed Mobility Yes Bed Mobility 1 Bed Mobility From 1 Supine Bed Mobility Type 1 To Bed Mobility to 1 Edge of bed Level of Assistance 1 Standby Assist Bed Mobility Comments 1 with HOB elevated; with use of bed rail Bed Mobility 2 Bed Mobility From 2 Edge of bed Bed Mobility Type 2 To Bed Mobility to 2 Supine Level of Assistance 2 Minimum Assist;Minimal verbal cues Bed Mobility Comments 2 with HOB flat; assist to lift LEs onto bed Transfers Transfer Yes Transfer 1 Transfer From 1 Sit Transfer Type 1 To and from Transfer to 1 Stand Transfer Device 1 Wheeled walker Transfer Level of Assistance 1 Standby Assist Trials/Comments 1 10 reps total during mobility and exercises; with UE support; SBA for safety. Pt demonstrates decreased force production Transfers 2 Transfer From 2 Chair with arms Transfer Type 2 To Transfer to 2 Bed Transfer Device 2 Wheeled walker Transfer Level of Assistance 2 Standby Assist Trials/Comments 2 SBA for safety; stand and step transfer with walker Ambulation Ambulation Yes Ambulation 1 Distance (ft) 1 70 Surface 1 Level tile Device 1 Wheeled walker Assistance 1 Standby Assist;Minimal verbal cues Gait: Requires verbal cues to 1 Pace activity Quality of Gait 1 decreased venita, decreased bilateral step length, flexed trunk posture Ambulation Comments 1 Patient ambulated 70+20+80 feet with seated rest breaks. Gait distance limited by c/o SOB. Stairs Stairs No Other Comments Other PT Comments Patient requires frequent rest breaks due to c/o SOB and fatigue. Basic Mobility - 6 Click How much difficulty does the patient have: Turning over in bed 3 How much difficulty does the patient currently have: Sitting down and standing up from a chair witharms? 3 How much difficulty does the patient have: Moving from lying on back to sitting on the side of the bed? 3 How much difficulty does the patient have: Moving to and from a bed to a chair including wheelchair? 3 How much help does the patient currently need: Walk in hospital room? 3 How much help from another person does the patient currently need: Climbing 3-5 steps with a railing? 2 Total 6 Click Score (range 6-24) 17 Plan Plan Continue with current plan;If this is the last note, consider this the discharge summary Recommendation/Plan PT Recommendation/Plan Assisted Facility Patient at high risk for Falls;Readmission Recommend SNF due to Skilled therapy needed to address functional deficits;Risk of injury at home (limited caregiver support) PT Frequency 3-5x/wk Progress Progressing toward goals PT - Next Appointment 06/06/22 Multi-Disciplinary Problems (from Physical Therapy) Active Problems Problem: Mobility Start Date: 05/31/22 Goal Start Date Expected End Date End Date LTG - Patient will ambulate household distance 05/31/22 07/26/22 -- Goal Details: With modified independence with walker. Goal Start Date Expected End Date End Date STG - Patient will ambulate 05/31/22 06/14/22 -- Goal Details: 80 feet with walker with modified independence. Goal Start Date Expected End Date End Date STG - Patient will ambulate up and down a curb/step 05/31/22 06/14/22 -- Goal Details: 2 reps with standby assistance. Problem: Transfers Start Date: 05/31/22 Goal Start Date Expected End Date End Date STG - Patient to transfer to and from sit to supine 05/31/22 06/14/22 -- Goal Details: With modified independence. Goal Start Date Expected End Date End Date STG - Patient will transfer sit to and from stand 05/31/22 06/14/22 -- Goal Details: With modified independence. * Joann Lyon, [employer] HAR[employer]ST[employer] SUPERVISOR - 06/03/2022 12:18 PM CDT Daily Progress Note Division of Hospital Medicine Name: Ayanna Gibbs Today: June 03, 2022 : 1950 Age: 72 y.o. female Admit: 05/27/2022 Bed: [id number] Subjective Chief complaint: Shortness of breath Interval History: Slept well last night on CPAP. Motivated to get Oob with nursing today. Asx syd/pauses (HR down to 30s, w/intermittent 2 sec pauses) on telemetry. Objective Medications: Scheduled: apixaban, 5 mg, oral, Q12H DELFIN cholecalciferol, 1,000 Units, oral, Daily cholestyramine-aspartame, 1 packet, oral, Daily - 0600 cyanocobalamin, 2,000 mcg, oral, Daily [START ON 06/04/2022] furosemide, 40 mg, oral, Daily hydrOXYchloroQUINE, 200 mg, oral, BID levothyroxine, 112 mcg, oral, Daily linezolid, 600 mg, oral, BID [START ON 06/04/2022] metoprolol XL, 50 mg, oral, Daily pravastatin, 80 mg, oral, Daily predniSONE, 15 mg, oral, QAM [Held by Provider] sertraline, 50 mg, oral, Daily trimethoprim, 100 mg, oral, Nightly umeclidinium-vilanteroL, 1 puff, inhalation, Daily Infusions: PRN: ??? acetaminophen ??? albuterol HFA ??? polyethylene glycol ??? ramelteon ??? traMADoL Vitals: 24hr Min/Max: Temp Min: 36.3 ??C (97.4 ??F) Max: 36.7 ??C (98.1 ??F) Pulse Min: 60 Max: 66 BP Min: 113/65 Max: 127/61 Resp Min: 18 Max: 18 SpO2 Min: 96 % Max: 100 % Most Recent: Vitals: 06/03/22 0730 BP: 117/65 Pulse: 66 Resp: 18 Temp: 36.6 ??C (97.9 ??F) SpO2: 100% 2L Intake/Output Summary (Last 24 hours) at 06/03/2022 1211 Last data filed at 06/03/2022 0425 Gross per 24 hour Intake 120 ml Output 550 ml Net -430 ml Independent Telemetry Review: A-fib, intermittent bradycardia down to high 30s with occasional ~2sec pauses. Physical Exam Constitutional: NAD, well developed, obese Eyes: PERRL, EOMI, anicteric ENT: NCAT, oropharynx normal, moist mucus membranes Lungs: CTA, unlabored at rest. Cardiovascular: Irreg, syd, normal S1 and S2, no murmurs, no JVD appreciated GI: Soft, non-tender, non-distended, bowel sounds +, no organomegaly Skin: No new rashes, lesions or bruises on visible skin Extremities: Trace pretibial edema bilat, no cyanosis Neurologic: AOx4, CNII-XII intact, normal strength and sensation Psychiatric: Normal affect and mood, euthymic Lab/Diagnostic Review: Recent Results (from the past 36 hour(s)) Basic metabolic panel Collection Time: 06/02/22 12:21 AM Result Value Ref Range Sodium 140 135 - 145 mmol/L Potassium, pl 4.2 3.3 - 4.9 mmol/L Chloride 100 97 - 110 mmol/L CO2 33 (H) 22 - 32 mmol/L Anion gap 7 2 - 15 mmol/L BUN 40 (H) 8 - 25 mg/dL Creatinine 1.60 (H) 0.60 - 1.10 mg/dL Glucose 109 70 - 199 mg/dL Calcium 9.8 8.5 - 10.3 mg/dL CBC with auto differential Collection Time: 06/02/22 12:21 AM Result Value Ref Range WBC 11.3 (H) 3.8 - 9.9 K/cumm Hgb 10.9 (L) 11.9 - 15.5 g/dL Hct 34.2 (L) 35.6 - 45.5 % Plt 275 150 - 400 K/cumm MPV 10.6 9.1 - 12.3 fL RBC 3.53 (L) 3.90 - 5.20 M/cumm MCV 96.9 (H) 81.3 - 96.4 fL MCH 30.9 27.1 - 33.3 pg MCHC 31.9 (L) 32.3 - 35.7 g/dL RDW CV 12.9 11.1 - 14.9 % RDW SD 45.5 35.7 - 48.1 fL NRBC abs 0.00 0.00 - 0.01 K/cumm Magnesium Collection Time: 06/02/22 12:21 AM Result Value Ref Range Magnesium 1.8 1.4 - 2.5 mg/dL Differential, auto Collection Time: 06/02/22 12:21 AM Result Value Ref Range Neutrophil abs 8.1 (H) 1.7 - 6.5 K/cumm Imm gran abs 0.2 (H) 0.0 - 0.1 K/cumm Lymphocyte abs 1.6 0.8 - 3.3 K/cumm Monocyte abs 1.3 (H) 0.2 - 0.8 K/cumm Eosinophil abs 0.1 0.0 - 0.5 K/cumm Basophil abs 0.0 0.0 - 0.1 K/cumm Neutrophil pct 71.9 % Imm gran pct 1.4 % Lymphocyte pct 14.2 % Monocyte pct 11.4 % Eosinophil pct 0.9 % Basophil pct 0.2 % eGFR Collection Time: 06/02/22 12:21 AM Result Value Ref Range eGFR 34 (L) 90 - 130 mL/min/1.73 m2 Basic metabolic panel Collection Time: 06/02/22 8:56 PM Result Value Ref Range Sodium 139 135 - 145 mmol/L Potassium, pl 4.4 3.3 - 4.9 mmol/L Chloride 100 97 - 110 mmol/L CO2 33 (H) 22 - 32 mmol/L Anion gap 6 2 - 15 mmol/L BUN 36 (H) 8 - 25 mg/dL Creatinine 1.78 (H) 0.60 - 1.10 mg/dL Glucose 169 70 - 199 mg/dL Calcium 9.5 8.5 - 10.3 mg/dL CBC with auto differential Collection Time: 06/02/22 8:56 PM Result Value Ref Range WBC 10.2 (H) 3.8 - 9.9 K/cumm Hgb 10.9 (L) 11.9 - 15.5 g/dL Hct 34.8 (L) 35.6 - 45.5 % Plt 286 150 - 400 K/cumm MPV 10.4 9.1 - 12.3 fL RBC 3.58 (L) 3.90 - 5.20 M/cumm MCV 97.2 (H) 81.3 - 96.4 fL MCH 30.4 27.1 - 33.3 pg MCHC 31.3 (L) 32.3 - 35.7 g/dL RDW CV 13.0 11.1 - 14.9 % RDW SD 46.7 35.7 - 48.1 fL NRBC abs 0.00 0.00 - 0.01 K/cumm Magnesium Collection Time: 06/02/22 8:56 PM Result Value Ref Range Magnesium 1.8 1.4 - 2.5 mg/dL Differential, auto Collection Time: 06/02/22 8:56 PM Result Value Ref Range Neutrophil abs 8.3 (H) 1.7 - 6.5 K/cumm Imm gran abs 0.1 0.0 - 0.1 K/cumm Lymphocyte abs 1.0 0.8 - 3.3 K/cumm Monocyte abs 0.7 0.2 - 0.8 K/cumm Eosinophil abs 0.1 0.0 - 0.5 K/cumm Basophil abs 0.0 0.0 - 0.1 K/cumm Neutrophil pct 81.2 % Imm gran pct 1.1 % Lymphocyte pct 9.8 % Monocyte pct 7.2 % Eosinophil pct 0.5 % Basophil pct 0.2 % eGFR Collection Time: 06/02/22 8:56 PM Result Value Ref Range eGFR 30 (L) 90 - 130 mL/min/1.73 m2 I have reviewed the laboratory results. Imaging Results: ECG 12 lead Gene Nails MD 05/27/2022 3:56 PM ECG [...] ED XR Chest Pa Lateral 2 Vw Narrative: EXAMINATION: 2 view chest radiograph Impression: [...] it. Electronically signed by: Sam Salas M.D. Assessment/Plan * Acute on chronic heart failure (CMS/HCC) ([facility]) Assessment & Plan 12/27 dietary indiscretion vs COVID vs bacterial pneumonia. -Diuresed with IV lasix, now euvolemic->on home 60mg po Lasix since 05/30-hold today for Cr bump -stable pulm status on home oxygen need (2L at rest, 4L with activity) -continue home metop (dose decreased for bradycardia) -last TTE 12/2021 per outside notes with EF 55-60% -strict I/o, daily standing weights (down ~7 kg since admit) UTI (urinary tract infection) due to Enterococcus Assessment & Plan -pt with Hx chronic UTis, on trimethoprim chronically->follows outpatient with Urology -UA with 3+ leukocytes, 3+ blood, 2+ bacteria, RBCs 11-20, >50 WBCs. Patient report urinary frequency -WBC ~10, remains afebrile -Urine culture Greater than or equal to 100,000 colonies/mL of Enterococcus faecium -Sensitivities noted -Day #3 Linezolid 600mg po BID, plan 7 days. Holding Zoloft while on Linezolid (avoid serotonin syndrome) Rib fracture Assessment & Plan Tramadol prn. miralax daily prn. 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 Completed 7 total days of antibiotics (Azith, CTX) on 05/29. -pulm status at baseline. COVID-19 Assessment & Plan Symptomatic with lethargy, leg swelling, and cough. -Tested + on 05/22/22 at [facility] (external result entered and pic of result in media tab) -s/p remdesivir x2 days for high risk->stopped for bradycardia/pauses w/HR 30-40 - Discussed with IP on 06/02-pt needs 20 full days COVID isolation before quarantine can be lifted (immunosuppressed on abatacept). Isolation can be lifted 06/12 -stable for discharge if SNF has COVID bed, or improves w/PT enough to safely go home, otherwise toremain inpatient until isolation lifted. Chronic respiratory failure with hypoxia (CMS/HCC) ([facility]) Assessment & Plan -2/2 ILD, STARR -Continuous pulse ox while with COVID. -Remains at baseline 2L at rest, 4L with exertion. -cont home prednisone, holding abetacept while acutely ill. -cont CPAP at night. STARR on CPAP Assessment & Plan CPAP at night-home unit at bedside, brought in by daughter Encourage nightly use. Rheumatoid arthritis ([facility]) Assessment & Plan -Holding abatacept during acute illness. Continued plaquenil. -would let her Rheum know prior to discharge re: abatacept Paroxysmal atrial fibrillation (CMS/HCC) ([facility]) Assessment & Plan -Chronic, on home metoprolol (dose decreased again today for persistent bradycardia/pauses) and eliquis -CTM on tele given bradycardia/pauses->remdesivir d/c'd after 2 doses Cosigned by Tamera Garza MD at 06/03/2022 4:37 PM CDT Associated attestation - Tamera Garza MD - 06/03/2022 4:37 PM CDT I have seen and examined the patient on 06/03/22 in conjunction with the non- physician provider. Telemetry I have independently reviewed and interpreted telemetry, which showed afib with slow ventricular response. Patient denies lethargy, dizzines, syncope/near-syncope, chest pain, SOB Decrease Metop. Monitor tele. * Joann Lyon NP - 06/02/2022 12:19 PM CDT Daily Progress Note Division of Hospital Medicine Name: Ayanna Gibbs Today: June 02, 2022 : 1950 Age: 72 y.o. female Admit: 05/27/2022 Bed: [id number] Subjective Chief complaint: Shortness of breath Interval History: Remains at baseline oxygen requirement. Tired this am, reports did not sleep well. Otherwise no complaints. Medically stable for discharge. To SNF once placement found, +/- COVID isolation completed. Objective Medications: Scheduled: apixaban, 5 mg, oral, Q12H DELFIN cholecalciferol, 1,000 Units, oral, Daily cholestyramine-aspartame, 1 packet, oral, Daily - 0600 cyanocobalamin, 2,000 mcg, oral, Daily furosemide, 60 mg, oral, Daily hydrOXYchloroQUINE, 200 mg, oral, BID levothyroxine, 112 mcg, oral, Daily linezolid, 600 mg, oral, BID metoprolol XL, 100 mg, oral, Daily pravastatin, 80 mg, oral, Daily predniSONE, 15 mg, oral, QAM [Held by Provider] sertraline, 50 mg, oral, Daily trimethoprim, 100 mg, oral, Nightly umeclidinium-vilanteroL, 1 puff, inhalation, Daily Infusions: PRN: ??? acetaminophen ??? albuterol HFA ??? polyethylene glycol ??? ramelteon ??? traMADoL Vitals: 24hr Min/Max: Temp Min: 36.4 ??C (97.6 ??F) Max: 36.6 ??C (97.9 ??F) Pulse Min: 57 Max: 70 BP Min: 116/59 Max: 128/55 Resp Min: 18 Max: 18 SpO2 Min: 98 % Max: 99 % Most Recent: Vitals: 06/02/22 0829 BP: 116/59 Pulse: 63 Resp: 18 Temp: 36.6 ??C (97.9 ??F) SpO2: 99% 2L Intake/Output Summary (Last 24 hours) at 06/02/2022 1201 Last data filed at 06/01/2022 1800 Gross per 24 hour Intake 822 ml Output 700 ml Net 122 ml Telemetry review: a-fib, syd, occasional pause ~2sec Physical Exam Constitutional: NAD, well developed, obese Eyes: PERRL, EOMI, anicteric ENT: NCAT, oropharynx normal, moist mucus membranes Lungs: CTA, unlabored at rest, increased WOB with minimal activity Cardiovascular: Irreg, syd, normal S1 and S2, no murmurs, no JVD appreciated GI: Soft, non-tender, non-distended, bowel sounds +, no organomegaly Skin: No new rashes, lesions or bruises on visible skin Extremities: Trace pretibial edema bilat, no cyanosis Neurologic: AOx4, CNII-XII intact, normal strength and sensation Psychiatric: Normal affect and mood, euthymic Lab/Diagnostic Review: Recent Results (from the past 36 hour(s)) Basic metabolic panel Collection Time: 06/02/22 12:21 AM Result Value Ref Range Sodium 140 135 - 145 mmol/L Potassium, pl 4.2 3.3 - 4.9 mmol/L Chloride 100 97 - 110 mmol/L CO2 33 (H) 22 - 32 mmol/L Anion gap 7 2 - 15 mmol/L BUN 40 (H) 8 - 25 mg/dL Creatinine 1.60 (H) 0.60 - 1.10 mg/dL Glucose 109 70 - 199 mg/dL Calcium 9.8 8.5 - 10.3 mg/dL CBC with auto differential Collection Time: 06/02/22 12:21 AM Result Value Ref Range WBC 11.3 (H) 3.8 - 9.9 K/cumm Hgb 10.9 (L) 11.9 - 15.5 g/dL Hct 34.2 (L) 35.6 - 45.5 % Plt 275 150 - 400 K/cumm MPV 10.6 9.1 - 12.3 fL RBC 3.53 (L) 3.90 - 5.20 M/cumm MCV 96.9 (H) 81.3 - 96.4 fL MCH 30.9 27.1 - 33.3 pg MCHC 31.9 (L) 32.3 - 35.7 g/dL RDW CV 12.9 11.1 - 14.9 % RDW SD 45.5 35.7 - 48.1 fL NRBC abs 0.00 0.00 - 0.01 K/cumm Magnesium Collection Time: 06/02/22 12:21 AM Result Value Ref Range Magnesium 1.8 1.4 - 2.5 mg/dL Differential, auto Collection Time: 06/02/22 12:21 AM Result Value Ref Range Neutrophil abs 8.1 (H) 1.7 - 6.5 K/cumm Imm gran abs 0.2 (H) 0.0 - 0.1 K/cumm Lymphocyte abs 1.6 0.8 - 3.3 K/cumm Monocyte abs 1.3 (H) 0.2 - 0.8 K/cumm Eosinophil abs 0.1 0.0 - 0.5 K/cumm Basophil abs 0.0 0.0 - 0.1 K/cumm Neutrophil pct 71.9 % Imm gran pct 1.4 % Lymphocyte pct 14.2 % Monocyte pct 11.4 % Eosinophil pct 0.9 % Basophil pct 0.2 % eGFR Collection Time: 06/02/22 12:21 AM Result Value Ref Range eGFR 34 (L) 90 - 130 mL/min/1.73 m2 I have reviewed the laboratory results. Imaging Results: ECG 12 lead Gene Nails MD 05/27/2022 3:56 PM ECG [...] ED XR Chest Pa Lateral 2 Vw Narrative: EXAMINATION: 2 view chest radiograph Impression: [...] it. Electronically signed by: Sam Salas M.D. Assessment/Plan * Acute on chronic heart failure (CMS/[facility]) ([facility]) Assessment & Plan 12/27 dietary indiscretion vs COVID or bacterial pneumonia. -Diuresed with IV lasix, now euvolemic->back on home 60mg po Lasix since 05/30 -stable pulm status on home oxygen need (2L at rest, 4L with activity) -continue home metop (dose decreased for bradycardia) -last TTE 12/2021 per outside notes with EF 55-60% -strict I/o, daily weights (down ~3 kg since admit) UTI (urinary tract infection) due to Enterococcus Assessment & Plan -pt with Hx chronic UTis, on trimethoprim chronically->follows outpatient with Urology -UA with 3+ leukocytes, 3+ blood, 2+ bacteria, RBCs 11-20, >50 WBCs, patient denies symptoms, remains asx -WBC ~10, remains afebrile -Urine culture Greater than or equal to 100,000 colonies/mL of Enterococcus faecium -Sensitivities reviewed -Start Linezolid 600mg po BID, plan 7 days. Holding Zoloft while on Linezolid (avoid serotonin syndrome) Rib fracture Assessment & Plan Tramadol prn. miralax daily prn. 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 -mobilize as able-rehab/SNF at discharge->Needs new referrals as patient & daughter do not want her going back to prior facility. 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 Completed 7 total days of antibiotics (Azith, CTX) on 05/29. -pulm status at baseline. COVID-19 Assessment & Plan Symptomatic with lethargy, leg swelling, and cough. -Tested + on 05/22/22 at [facility] (external result entered and pic of result in media tab) -s/p remdesivir x2 days for high risk->stopped for bradycardia/pauses w/HR 30-40 yesterday - Discussed with IP today-pt need 20 full days COVID isolation before quarantine can be lifted (immunosuppressed on abatacept) ~isolation to be lifted 06/12 -stable for discharge if SNF has COVID bed, otherwise to remain inpatient until isolation lifted. Chronic respiratory failure with hypoxia (CMS/HCC) ([facility]) Assessment & Plan -2/2 ILD, STARR -Continuous pulse ox while with COVID. -Remains at baseline 2L at rest, 4L with exertion. -cont home prednisone, holding abetacept while acutely ill -cont CPAP at night. STARR on CPAP Assessment & Plan CPAP at night-home unit brought in by daughter. Encourage nightly use. Rheumatoid arthritis ([facility]) Assessment & Plan holding abatacept during acute illness. Continued plaquenil. Cosigned by Tamera Garza MD at 06/02/2022 5:40 PM CDT Associated attestation - Tamera Garza MD - 06/02/2022 5:40 PM CDT I have seen and examined the patient on 06/02/22 in conjunction with the non- physician provider. * Joann Lyon NP - 06/01/2022 1:56 PM CDT Daily Progress Note Division of Hospital Medicine Name: Ayanna Gibbs Today: June 01, 2022 : 1950 Age: 72 y.o. female Admit: 05/27/2022 Bed: [id number] Subjective Chief complaint: Shortness of breath Interval History: Up to chair today. Remains at baseline oxygen requirement. Anticipating [facility] SNF once COVID isolation lifted. Objective Medications: Scheduled: apixaban, 5 mg, oral, Q12H DELFIN cholecalciferol, 1,000 Units, oral, Daily cholestyramine-aspartame, 1 packet, oral, Daily - 0600 cyanocobalamin, 2,000 mcg, oral, Daily furosemide, 60 mg, oral, Daily hydrOXYchloroQUINE, 200 mg, oral, BID levothyroxine, 112 mcg, oral, Daily linezolid, 600 mg, oral, BID metoprolol XL, 100 mg, oral, Daily pravastatin, 80 mg, oral, Daily predniSONE, 15 mg, oral, QAM [Held by Provider] sertraline, 50 mg, oral, Daily trimethoprim, 100 mg, oral, Nightly umeclidinium-vilanteroL, 1 puff, inhalation, Daily Infusions: PRN: ??? acetaminophen ??? albuterol HFA ??? polyethylene glycol ??? ramelteon ??? traMADoL Vitals: 24hr Min/Max: Temp Min: 36.3 ??C (97.4 ??F) Max: 36.7 ??C (98 ??F) Pulse Min: 60 Max: 65 BP Min: 117/61 Max: 128/76 Resp Min: 18 Max: 18 SpO2 Min: 96 % Max: 98 % Most Recent: Vitals: 06/01/22 0805 BP: 128/76 Pulse: 62 Resp: 18 Temp: 36.3 ??C (97.4 ??F) SpO2: 98% RA Telemetry: a-fib, intermittently bradycardic, 2 pauses overnight 2sec Intake/Output Summary (Last 24 hours) at 06/01/2022 1350 Last data filed at 06/01/2022 0805 Gross per 24 hour Intake 1422 ml Output 1600 ml Net -178 ml Physical Exam Constitutional: NAD, well developed, obese Eyes: PERRL, EOMI, anicteric ENT: NCAT, oropharynx normal, moist mucus membranes Lungs: CTA, unlabored at rest, increased WOB with minimal activity Cardiovascular: Irreg, syd, normal S1 and S2, no murmurs, no JVD appreciated GI: Soft, non-tender, non-distended, bowel sounds +, no organomegaly Skin: No new rashes, lesions or bruises on visible skin Extremities: Trace pretibial edema bilat, no cyanosis Neurologic: AOx4, CNII-XII intact, normal strength and sensation Psychiatric: Normal affect and mood, euthymic Lab/Diagnostic Review: Recent Results (from the past 36 hour(s)) Basic metabolic panel Collection Time: 05/31/22 11:57 PM Result Value Ref Range Sodium 139 135 - 145 mmol/L Potassium, pl 4.3 3.3 - 4.9 mmol/L Chloride 100 97 - 110 mmol/L CO2 31 22 - 32 mmol/L Anion gap 8 2 - 15 mmol/L BUN 40 (H) 8 - 25 mg/dL Creatinine 1.41 (H) 0.60 - 1.10 mg/dL Glucose 122 70 - 199 mg/dL Calcium 9.6 8.5 - 10.3 mg/dL CBC with auto differential Collection Time: 05/31/22 11:57 PM Result Value Ref Range WBC 10.1 (H) 3.8 - 9.9 K/cumm Hgb 10.9 (L) 11.9 - 15.5 g/dL Hct 34.2 (L) 35.6 - 45.5 % Plt 274 150 - 400 K/cumm MPV 10.3 9.1 - 12.3 fL RBC 3.52 (L) 3.90 - 5.20 M/cumm MCV 97.2 (H) 81.3 - 96.4 fL MCH 31.0 27.1 - 33.3 pg MCHC 31.9 (L) 32.3 - 35.7 g/dL RDW CV 12.9 11.1 - 14.9 % RDW SD 46.0 35.7 - 48.1 fL NRBC abs 0.00 0.00 - 0.01 K/cumm Magnesium Collection Time: 05/31/22 11:57 PM Result Value Ref Range Magnesium 1.9 1.4 - 2.5 mg/dL Differential, auto Collection Time: 05/31/22 11:57 PM Result Value Ref Range Neutrophil abs 7.7 (H) 1.7 - 6.5 K/cumm Imm gran abs 0.2 (H) 0.0 - 0.1 K/cumm Lymphocyte abs 1.1 0.8 - 3.3 K/cumm Monocyte abs 1.1 (H) 0.2 - 0.8 K/cumm Eosinophil abs 0.1 0.0 - 0.5 K/cumm Basophil abs 0.0 0.0 - 0.1 K/cumm Neutrophil pct 75.8 % Imm gran pct 1.5 % Lymphocyte pct 10.6 % Monocyte pct 10.9 % Eosinophil pct 1.0 % Basophil pct 0.2 % eGFR Collection Time: 05/31/22 11:57 PM Result Value Ref Range eGFR 39 (L) 90 - 130 mL/min/1.73 m2 I have reviewed the laboratory results. Imaging Results: ECG 12 lead Gene Nails MD 05/27/2022 3:56 PM ECG 12 lead Date/Time: 05/27/2022 3:52 PM Performed by: Gene Nails MD Authorized by: Luis Fernando Goemz MD Rate: ECG rate: 59 beats per [...] ED XR Chest Pa Lateral 2 Vw Narrative: EXAMINATION: 2 view chest radiograph Impression: [...] it. Electronically signed by: Sam Salas M.D. Assessment/Plan * Acute on chronic heart failure (CMS/HCC) ([facility]) Assessment & Plan 2/2 dietary indiscretion vs COVID or bacterial pneumonia. -Diuresed with IV lasix, now euvolemic->back on home 60mg po Lasix 05/30 -stable pulm status on home oxygen need (2L at rest, 4L with activity) -continue home metop (dose decreased for bradycardia) -last TTE 12/2021 per outside notes with EF 55-60% -strict I/o, daily weights (down ~3 kg since admit) UTI (urinary tract infection) due to Enterococcus Assessment & Plan -pt with Hx chronic UTis, on trimethoprim chronically->follows outpatient with Urology -UA with 3+ leukocytes, 3+ blood, 2+ bacteria, RBCs 11-20, >50 WBCs, patient denies symptoms, remains asx -WBC ~10, remains afebrile -Urine culture Greater than or equal to 100,000 colonies/mL of Enterococcus faecium -Sensitivities reviewed -Start Linezolid 600mg po BID, plan 7 days. Holding Zoloft while on Linezolid (avoid serotonin syndrome) Rib fracture Assessment & Plan Tramadol prn. miralax daily prn. 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 -mobilize as able-rehab/SNF at discharge->Needs new referrals as patient & daughter do not want her going back to prior facility. PT/OT radha completed 05/31-rec SNF Bacterial pneumonia Assessment & Plan Reports two weeks of productive green sputum after eating that is new. 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 Completed 7 total days of antibiotics (Azith, CTX) on 05/29. -pulm status at baseline COVID-19 Assessment & Plan Symptomatic with lethargy, leg swelling, and cough. -Tested + on 05/22/22 at [facility] (external result entered and pic of result in media tab) -s/p remdesivir x2 days for high risk->stopped for bradycardia/pauses w/HR 30-40 yesterday -may be able to lift COVID isolation ~06/02, IP aware Chronic respiratory failure with hypoxia (CMS/HCC) ([facility]) Assessment & Plan -2/2 ILD, STARR -Continuous pulse ox while with COVID. -Remains at baseline 2L at rest, 4L with exertion. -cont home prednisone, holding abetacept while acutely ill -cont CPAP at night STARR on CPAP Assessment & Plan CPAP at night-home unit brought in by daughter. Encourage nightly use. Rheumatoid arthritis ([facility]) Assessment & Plan holding abatacept. Continued plaquenil Paroxysmal atrial fibrillation (CMS/HCC) ([facility]) Assessment & Plan -Chronic, on home metoprolol (dose decreased for persistent bradycardia/pauses) and eliquis -CTM on tele given bradycardia/pauses->remdesivir d/c'd Cosigned by Tamera Garza MD at 06/01/2022 2:33 PM CDT Associated attestation - Tamera Garza MD - 06/01/2022 2:33 PM CDT I have seen and examined the patient on 06/01/22 in conjunction with the non- physician provider. Enterococcus UTI. Amp R. Start Linezolid. Hold SSRI * Елена Wu RRT - 06/01/2022 4:11 AM CDT Pt wore their home cpap and tolerated with no issue. Pt just requires RT to set the machine up for her but is able to put on and remove on her own. Plan- continue to monitor and treat. * Joann Lyon NP - 05/31/2022 5:17 PM CDT Daily Progress Note Division of Hospital Medicine Name: Ayanna Gibbs Today: May 31, 2022 : 1950 Age: 72 y.o. female Admit: 05/27/2022 Bed: [id number] Subjective Chief complaint: Volume Overload, SOB Interval History: Breathing remains at baseline oxygen needs. Worked well with therapies today. Hx frequent UTIs with dirty UA, asx at present. Objective Medications: Scheduled: apixaban, 5 mg, oral, Q12H DELFIN cholecalciferol, 1,000 Units, oral, Daily cholestyramine-aspartame, 1 packet, oral, Daily - 0600 cyanocobalamin, 2,000 mcg, oral, Daily furosemide, 60 mg, oral, Daily hydrOXYchloroQUINE, 200 mg, oral, BID levothyroxine, 112 mcg, oral, Daily metoprolol XL, 100 mg, oral, Daily pravastatin, 80 mg, oral, Daily predniSONE, 15 mg, oral, QAM sertraline, 50 mg, oral, Daily trimethoprim, 100 mg, oral, Nightly umeclidinium-vilanteroL, 1 puff, inhalation, Daily Infusions: PRN: ??? acetaminophen ??? albuterol HFA ??? polyethylene glycol ??? ramelteon ??? traMADoL Vitals: 24hr Min/Max: Temp Min: 36.4 ??C (97.6 ??F) Max: 36.7 ??C (98 ??F) Pulse Min: 56 Max: 77 BP Min: 107/80 Max: 135/67 Resp Min: 16 Max: 18 SpO2 Min: 96 % Max: 98 % Most Recent: Vitals: 05/31/22 1515 BP: 128/54 Pulse: 65 Resp: 18 Temp: 36.7 ??C (98 ??F) SpO2: 98% 2L Telemetry review: A-fib with occasional pauses, max pause 1.5sec today Intake/Output Summary (Last 24 hours) at 05/31/2022 1702 Last data filed at 05/31/2022 1550 Gross per 24 hour Intake 922 ml Output 2200 ml Net -1278 ml Physical Exam Constitutional: NAD, well developed, obese Eyes: PERRL, EOMI, anicteric ENT: NCAT, oropharynx normal, moist mucus membranes Lungs: CTA, unlabored at rest, increased WOB with minimal activity Cardiovascular: Irreg, syd, normal S1 and S2, no murmurs, no JVD appreciated GI: Soft, non-tender, non-distended, bowel sounds +, no organomegaly Skin: No new rashes, lesions or bruises on visible skin Extremities: Trace pretibial edema bilat, no cyanosis Neurologic: AOx4, CNII-XII intact, normal strength and sensation Psychiatric: Normal affect and mood, euthymic Lab/Diagnostic Review: Recent Results (from the past 36 hour(s)) Urinalysis reflex to microscopic and culture Urine, clean voided Collection Time: 05/30/22 9:19 AM Specimen: Urine, clean voided Result Value Ref Range Color, ur Straw Yellow Clarity, ur Clear Clear Specific gravity, ur 1.024 1.003 - 1.030 pH, urine 6.0 Protein, ur ql 1+ (A) Negative Glucose, ur ql Negative Negative Ketones, ur Negative Negative Bilirubin, ur Negative Negative Blood, ur 3+ (A) Negative Urobilinogen, ur <2.0 <2.0 mg/dL Nitrite, ur Negative Negative Leukocyte esterase, ur 3+ (A) Negative UA reflex comment Reflex to microscopic UA will be performed. Urinalysis, microscopic only Collection Time: 05/30/22 9:19 AM Result Value Ref Range WBC, ur >50 (A) 0 - 5 /HPF RBC, ur 11-20 (A) 0 - 2 /HPF Epithelial cells, squamous, ur 1-5 0 - 5 /HPF Bacteria, ur 2+ (A) Hyaline casts, ur 1-5 0 - 10 /LPF Culture Reflex Comment Reflex to urine culture will be performed. Urine culture Urine, clean voided Collection Time: 05/30/22 9:19 AM Specimen: Urine, clean voided Result Value Ref Range Report (.) Preliminary Report: Greater than or equal to 100,000 colonies/mL of Enterococcus faecium Susceptibility testing results to follow. Organism ENTEROCOCCUS FAECIUM Basic metabolic panel Collection Time: 05/30/22 9:54 PM Result Value Ref Range Sodium 141 135 - 145 mmol/L Potassium, pl 4.5 3.3 - 4.9 mmol/L Chloride 102 97 - 110 mmol/L CO2 32 22 - 32 mmol/L Anion gap 7 2 - 15 mmol/L BUN 40 (H) 8 - 25 mg/dL Creatinine 1.65 (H) 0.60 - 1.10 mg/dL Glucose 109 70 - 199 mg/dL Calcium 9.4 8.5 - 10.3 mg/dL CBC with auto differential Collection Time: 05/30/22 9:54 PM Result Value Ref Range WBC 10.2 (H) 3.8 - 9.9 K/cumm Hgb 11.0 (L) 11.9 - 15.5 g/dL Hct 35.0 (L) 35.6 - 45.5 % Plt 264 150 - 400 K/cumm MPV 10.7 9.1 - 12.3 fL RBC 3.60 (L) 3.90 - 5.20 M/cumm MCV 97.2 (H) 81.3 - 96.4 fL MCH 30.6 27.1 - 33.3 pg MCHC 31.4 (L) 32.3 - 35.7 g/dL RDW CV 12.7 11.1 - 14.9 % RDW SD 45.0 35.7 - 48.1 fL NRBC abs 0.00 0.00 - 0.01 K/cumm Magnesium Collection Time: 05/30/22 9:54 PM Result Value Ref Range Magnesium 2.0 1.4 - 2.5 mg/dL Differential, auto Collection Time: 05/30/22 9:54 PM Result Value Ref Range Neutrophil abs 7.8 (H) 1.7 - 6.5 K/cumm Imm gran abs 0.1 0.0 - 0.1 K/cumm Lymphocyte abs 1.1 0.8 - 3.3 K/cumm Monocyte abs 1.0 (H) 0.2 - 0.8 K/cumm Eosinophil abs 0.0 0.0 - 0.5 K/cumm Basophil abs 0.0 0.0 - 0.1 K/cumm Neutrophil pct 77.2 % Imm gran pct 0.8 % Lymphocyte pct 11.2 % Monocyte pct 10.2 % Eosinophil pct 0.4 % Basophil pct 0.2 % eGFR Collection Time: 05/30/22 9:54 PM Result Value Ref Range eGFR 32 (L) 90 - 130 mL/min/1.73 m2 I have reviewed the laboratory results. Imaging Results: ECG 12 lead Gene Nails MD 05/27/2022 3:56 PM ECG [...] ED XR Chest Pa Lateral 2 Vw Narrative: EXAMINATION: 2 view chest radiograph Impression: [...] it. Electronically signed by: Sam Salas M.D. Assessment/Plan * Acute on chronic heart failure (CMS/[facility]) ([facility]) Assessment & Plan 2/2 dietary indiscretion vs COVID or bacterial pneumonia. -Diuresed with IV lasix, now euvolemic->back on home 60mg po Lasix 05/30 -stable pulm status on home oxygen need -continue home metop (dose decreased for bradycardia) -last TTE 12/2021 per outside notes with EF 55-60% -strict I/o, daily weights Bacteria in urine Assessment & Plan -pt with Hx chronic UTis, on trimethoprim chronically->follows outpatient with Urology -UA with 3+ leukocytes, 3+ blood, 2+ bacteria, RBCs 11-20, >50 WBCs, patient denies symptoms, remains asx -WBC ~10, afebrile -Urine culture Greater than or equal to 100,000 colonies/mL of Enterococcus faecium -Sensitivities pending -Given lack of symptoms and HD stability, will defer antibx pending final sensitivity results Rib fracture Assessment & Plan Tramadol prn. miralax daily prn. Incentive spirometer. -mobilize as able-rehab/SNF at discharge->will need new referrals as patient & daughter do not want her going back to prior facility. PT/OT evals completed today-rec SNF Bacterial pneumonia Assessment & Plan Reports two weeks of productive green sputum after eating that is new. Appears to have been startedon cefdinir for PNA and UTI at OSH starting 05/22. Completed 7 total days of antibiotics (Azith, CTX) on 05/29. COVID-19 Assessment & Plan Symptomatic with lethargy, leg swelling, and cough. -Tested + on 05/22/22 at [facility] (external result entered and pic of result in media tab) -s/p remdesivir x2 days for high risk->stopped for bradycardia/pauses w/HR 30-40 yesterday Chronic respiratory failure with hypoxia (CMS/[facility]) ([facility]) Assessment & Plan -2/2 ILD, STARR -Continuous pulse ox while with COVID. -Remains at baseline 2L at rest, 4L with exertion. -cont home prednisone, holding abetacept while acutely ill -CPAP at night STARR on CPAP Assessment & Plan CPAP at night-home unit brought in by daughter. Encourage nightly use. Rheumatoid arthritis ([facility]) Assessment & Plan holding abatacept. Continued plaquenil Paroxysmal atrial fibrillation (CMS/HCC) (HCC) Assessment & Plan -Chronic, on home metoprolol (dose decreased for persistent bradycardia/pauses) and eliquis -CTM on tele given bradycardia/pauses->remdesivir d/c'd Cosigned by Tamera Garza MD at 05/31/2022 6:01 PM CDT Associated attestation - Tamera Garza MD - 05/31/2022 6:01 PM CDT I have seen and examined the patient on 05/31/22 in conjunction with the non- physician provider. * Fady Awan - 05/31/2022 12:57 PM CDT Spiritual Care Notes: Director Of Rehabilitation And Wellness: [employer]. [phone]. 05/31/22 1200 Time Spent Start Time 1230 Stop Time 1240 Time Calculation (min) 10 min Patient Spiritual Assessment Spirituality Assessed Unable to assess Jainism Affiliation Amish Spiritual Needs (Unable to assess. Pt declined visit.) * Maria L Gohtra, PT - 05/31/2022 9:25 AM CDT Physical Therapy Physical Therapy Initial Assessment NOTE: This is a summary note for the cuenca assessments completed during the evaluation session. For full details, review chart review for all flowsheets documented on by this physical therapist on thisdate. Vital signs documented in vital signs flowsheet. Assessment Assessment Prognosis: Good Problem List: Gait deviations, Decreased strength, Decreased endurance, Impaired balance, Decreasedmobility Problem List Comments: PT Diagnosis: LE edema, fall with three left rib fractures, and COVID+ results in above listed activity deficits and impairments which prevent full participation in home mobility. Barriers to Discharge: Current Mobility Status, Decreased caregiver support, Home environment challenged Plan Plan Plan : Plan of care initiated, If this is the last note, consider this the discharge summary PT Recommendation and Plan Recommendation/Plan PT Recommendation/Plan: Assisted Facility Patient at high risk for: Falls, Readmission, Injury due to reduced functional status Recommend SNF due to: Skilled therapy needed to address functional deficits, Risk of injury at home PT Recommendation/Plan Comments: PT POC was discussed with patient. Patient states she will go to SNF if needed. PT Frequency: 3-5x/wk Treatment/Interventions: Balance Training, Bed mobility, Endurance training, Functional activity, Functional transfer training, Gait training, Stair training, Therapeutic activity, Therapeutic exercise PT - Next Appointment: 06/04/22 PT Evaluation Complete: Yes General Information General Chart Reviewed: Yes Session Type: Evaluation PT Received On: 05/31/22 Subjective: Agreeable to Therapy Subjective Comment: I've been in bed for 9 days. Additional Pertinent History: PMH includes RA, ILD on 2L rest 4L exertion, AFib, depression. Family/Caregiver Present: No Physical Therapy-Patient Goal: to be able to move around. Prior Function Prior Function Level of [place]: Independent with ambulation (with walker) Lives With: Daughter Receives Help From: Family (departure clerk assist) Fall within the last 6 months: Yes Fall within the last 6 months comment: Patient reports one fall due to sliding off bed; fall resulted in admission and left rib fractures. Home Living Home Living Type of Home: House Home Layout: Two level, Stairs with rails # of Steps-Railed: 14 Home Access: Stairs to enter with rails Entrance Stairs-Rails: Both Entrance Stairs-Number of Steps: 2 Home Mobility Equipment: Wheeled walker, Single point cane Additional Comments: Patient reports independence with all household mobility; reports using walkerfor all ambulation. patient reports using wheelchair only for doctor's appointments. Pt states she uses her stairs once per day, to and from bedroom; reports independence on stairs. Precautions Precautions Precautions: Fall risk, Obstructive sleep apnea Pain Pain Assessment Pain Assessment: No/denies pain Cognition Cognition Arousal/Alertness: Alert Orientation : Oriented X4 (person, place, time, situation) Following Commands: Follows all commands and directions without difficulty Compliance/Behavior: Easy to engage 6 Clicks Basic Mobility - 6 Click How much difficulty does the patient have: Turning over in bed: A little How much difficulty does the patient currently have: Sitting down and standing up from a chair witharms?: A little How much difficulty does the patient have: Moving from lying on back to sitting on the side of the bed?: A little How much difficulty does the patient have: Moving to and from a bed to a chair including wheelchair?: A little How much help does the patient currently need: Walk in hospital room?: A little How much help from another person does the patient currently need: Climbing 3-5 steps with a railing?: A lot Total 6 Click Score (range 6-24): 17 Bed Mobility Bed Mobility Bed Mobility: Yes Bed Mobility 1 Bed Mobility From 1: Supine Bed Mobility Type 1: To Bed Mobility to 1: Edge of bed Level of Assistance 1: Standby Assist Bed Mobility Comments 1: with HOB elevated and with use of bed rail; requires increased time. Pt reports she can elevate HOB on her bed at home. Bed Mobility 2 Bed Mobility From 2: Edge of bed Bed Mobility Type 2: To Bed Mobility to 2: Supine Level of Assistance 2: Minimum Assist, Minimal verbal cues Bed Mobility Comments 2: with HOB flat; assist to lift BLEs onto bed Transfers Transfers Transfer: Yes Transfer 1 Transfer From 1: Sit Transfer Type 1: To and from Transfer to 1: Stand Transfer Device 1: Wheeled walker Transfer Level of Assistance 1: Standby Assist Trials/Comments 1: 4 reps; with UE support; SBA for safety. Pt demonstrates decreased force production and decreased control of descsent. Balance Static Sitting Balance Static Sitting-Balance Support: No upper extremity supported, Feet supported Static Sitting-Sitting Surface: Bed Static Sitting-Level of Assistance: Distant supervision Static Sitting-Comment/# of Minutes: for safety Static Standing Balance Static Standing-Balance Support: Bilateral upper extremity supported (with walker) Static Standing-Standing Surface: Floor Static Standing-Level of Assistance: Distant supervision Static Standing-Comment/# of Minutes: for safety; decreased standing tolerance due to c/o fatigue and SOB. Pt reports she can't stand for long times at baseline. Ambulation Ambulation Ambulation: Yes Ambulation 1 Distance (ft) 1: 40 Surface 1: Level tile Device 1: Wheeled walker Assistance 1: Standby Assist, Minimal verbal cues Gait: Requires verbal cues to 1: Pace activity Quality of Gait 1: decreased venita, decreased step length, flexed trunk posture Ambulation Comments 1: Patient ambulated 20+20+40 feet with seated rest breaks. Gait distance limited by c/o fatigue, SOB, and lightheadedness with noted slight decrease in SBP after ambulation; SBP improved at end of PT session. O2 increased to 4L/min for ambulation, as patient reports requiring 4L O2 during exertion at baseline. Stairs Stairs Stairs: No Stair Comments: Stairs simulated: standing toe taps to side of trash cane x 2 reps each leg, with walker and close supervision for safety. Pt unable to tolerate further standing toe taps due to SOB and fatigue. Curbs RLE Assessment RLE Assessment RLE Assessment: Within Functional Limits Strength RLE R Hip Flexion: 4-/5 R Knee Flexion: 4/5 R Knee Extension: 4/5 R Ankle Dorsiflexion: 4+/5 LLE Assessment LLE Assessment LLE Assessment: Within Functional Limits Strength LLE L Hip Flexion: 4-/5 L Knee Flexion: 4+/5 L Knee Extension: 4+/5 L Ankle Dorsiflexion: 4+/5 Equipment Used Equipment Use Equipment Use Comments: gait belt used Other Comments Other Comments Other PT Comments: Patient requires increased time for all mobility and frequent rest breaks due tofatigue and SOB. Patient requires standby assistance for safety during ambulation and mobility and reports having only departure clerk assist at home; states she is home alone from 5am-5pm when daughter isat work. Pt demonstrates decreased activity tolerance and unable to tolerate stairs at this time. Patient would benefit from skilled PT in SNF setting to improve functional mobility. PT Goals Multi-Disciplinary Problems (from Physical Therapy) Active Problems Problem: Mobility Start Date: 05/31/22 Goal Start Date Expected End Date End Date LTG - Patient will ambulate household distance 05/31/22 07/26/22 -- Goal Details: With modified independence with walker. Goal Start Date Expected End Date End Date STG - Patient will ambulate 05/31/22 06/14/22 -- Goal Details: 80 feet with walker with standby assistance. Goal Start Date Expected End Date End Date STG - Patient will ambulate up and down a curb/step 05/31/22 06/14/22 -- Goal Details: 2 reps with standby assistance. Problem: Transfers Start Date: 05/31/22 Goal Start Date Expected End Date End Date STG - Patient to transfer to and from sit to supine 05/31/22 06/14/22 -- Goal Details: With modified independence. Goal Start Date Expected End Date End Date STG - Patient will transfer sit to and from stand 05/31/22 06/14/22 -- Goal Details: With modified independence. For questions, please review the treatment team and contact the PT or FACILITY SUPERVISOR currently assigned to this patient. If a physical therapy clinician is not assigned to this patient, please call [phone]. * Ni Walton, OT - 05/31/2022 8:10 AM CDT Occupational Therapy Occupational Therapy Initial Assessment NOTE:This is a summary note for the cuenca assessments completed during the evaluation session. For full details, review chart review for all flowsheets documented on by this Occupational Therapist on this date. Vital signs documented in vital signs flowsheet. Assessment Assessment Problem List: Decreased endurance, Decreased ROM, Pain, Decreased ADL independence, Decreased IADL independence Barriers to Discharge: Current Mobility Status, Home environment challenged Plan Plan Plan: Plan of care initiated, If this is the last note, consider this the discharge summary OT Recommendation and Plan Recommendation/Plan OT Recommendation: Assisted Facility (home with possible home modifications on main level, OT home health to address safety in home & complaince with med management due to 6 on short blessed) Patient at high risk for: Readmission, Injury due to decreased ability to care for self OT Recommendation/Plan Comments: pending how patient does with P.T with distance & steps-could go home with assist OT Frequency: 2-3x/wk Treatment/Interventions: ADL/IADL retraining, Balance Training, Compensatory technique education, Endurance training, Equipment eval/education, Functional mobility training, Functional transfer training, Functional activity, Positioning, Positioning equipment, Parent/caregiver training and education, Strengthening, Therapeutic activity, Therapeutic exercise, Transfer training OT Equipment Recommended: Top Installer, Sock aid OT - Next Appointment: 06/04/22 OT Evaluation Complete: Yes General Information General Chart Reviewed: Yes Session Type: Evaluation OT Received On: 05/31/22 Safe Environment: Arm Band Checked, Call Light within Reach, Patient found in Supine, Overbed Tablewithin Reach (Pt left in supine iwth call light, phone & overhead table within reach) Subjective: Agreeable to Therapy Family/Caregiver Present: No Occupational Therapy-Patient Goal: To go back home Precautions Precautions Precautions: Fall risk, Obstructive sleep apnea Home Living Home Living Type of Home: House Home Layout: Two level Home Access: Stairs to enter with rails Entrance Stairs-Rails: Both Entrance Stairs-Number of Steps: 2 Bathroom Shower/Tub: Walk-in shower with threshold (shower chair) Bathroom Toilet: Raised Bathroom Equipment: Grab bars in shower/tub, Grab bars around toilet (grab bars around the toilet on maibn level where she is during the days-no grab bars next to upstairs toilet-grab bars in walk- in shower) Bathroom Accessibility: Accessible via walker Home Mobility Equipment: Wheeled walker (used all times in home & outside of home) Home ADL Equipment: Sock aid, Top Installer, Dressing stick, Other (Comment) (two BSCs-one on each level) Additional Comments: Pt stays on main level all day & goes up 14 steps to her bedroom/walk-in shower omce at night when she's ready for bed. Bilat rails around 14 steps Prior Function Prior Function Level of [place]: Independent with ADLs, Independent functional transfers, Independent with ambulation, Dependent with homemaking with ambulation Lives With: Daughter (lives with one daughter who does all cooking , a different daughter does grocery shopping, laundry.) Receives Help From: Family Driving: No Mode of Transportation: Family ADL Assistance: Independent Instrumental ADL (IADL) Assistance: Needs assistance Vocational/Occupation: Retired Fall within the last 6 months: Yes Fall within the last 6 months comment: 1 Prior Function Comments: independent with ADLs, using walker, one fall out of bed in last [place] [facility] [place] Two daughters assist wih all IADLs, driving. Has a son to assist as well. Pt's daughter works 12 hours a day-pt doesn't have 24 hour assist Activities of Daily Living Grooming Grooming: Where assessed: Standing at sink Grooming: Level of assistance: Modified independent (pt uses ww & leans over pressing her forearms on sink to wash hands/face-reports that was her PLOF) LE Dressing LE Dressing: Where assessed: Standing, Sitting, Edge of bed LE Dressing: Level of assistance: Maximum Assist LE Dressing: Assistance with: Don/doff R sock, Don/doff L sock (pt reports hospital bed (on lowest setting) is still higher than her bed at home where she don/doffed socks-pt also has sock aside at home she used after knee replacement)) Toileting Toileting: Where assessed: Bedside Commode Toileting: Level of assistance: Modified Independent Toileting: Assistance with: (pt uses ww to stand when manging hygiene-has grab bar next to toilet at home) Pain Pain Assessment Pain Assessment: No/denies pain Pain Score: 0 - No pain Patient's Stated Pain Goal: No pain Cognition Cognition Cognition Comments: 6 on short blessed Arousal/Alertness: Alert, Appropriate responses to stimuli Attention Span: Appears intact Memory: Appears intact Current communication: Appears Intact Orientation : Oriented X4 (person, place, time, situation) Following Commands: Follows all commands and directions without difficulty Safety Judgment: Good awareness of safety precautions Awareness of Errors: Good awareness of errors made Insight: Fully aware of deficits Problem Solving: Able to problem solve independently Compliance/Behavior: Easy to engage Perseveration: Not present Short Blessed Test What year is it now?: Correct What month is it now?: Correct Repeat this name and address after me: Fady Arriaga [address] [place] [address] Without looking at the clock, tell me what time it is: Correct-within one hour Count aloud backwards from 20-1: 0 Errors Say the months of the year backwards in reverse order: 0 Errors Repeat the name and address I asked you to remember: 3 Errors Short Blessed Total Score: 6 Short Blessed Comments: questionable impairement 6 Clicks Daily Activity - 6 Clicks Putting on and taking off regular lower body clothing: A lot Bathing: A little Toileting: None Putting on and taking off upper body clothing: None Personal Grooming: None Eating Meals: None Total Score (range 6-24): 21 Score Interpretation: 21 Balance Dynamic Sitting Balance Dynamic Sitting-Balance Support: Feet supported, Unilateral upper extremity supported Dynamic Sitting-Balance: Forward lean, Reaching for objects, Reaching across midline Dynamic Sitting-Level of Assistance: Distant supervision (safety-high bed) Dynamic Standing Balance Dynamic Standing-Balance Support: Unilateral upper extremity supported Dynamic Standing-Balance: Forward lean, Reaching for objects, Reaching across midline Dynamic Standing-Standing Surface: Floor Dynamic Standing-Level of Assistance: Distant supervision (MOD I using walker) Dynamic Standing-Comments: MOD I using walker Transfers Transfers Transfer: Yes (gait belt used during session) Transfer 1 Transfer From 1: Sit Transfer Type 1: To and from Transfer to 1: Stand Technique 1: Sit to stand, Stand to sit Transfer Device 1: Wheeled walker Transfer Level of Assistance 1: Modified Independent Trials/Comments 1: using bed rail Transfers 2 Trials/Comments 2: MOD I with ww short distances to [facility] in room Bed Mobility Bed Mobility Bed Mobility: Yes Bed Mobility 1 Bed Mobility From 1: Supine Bed Mobility Type 1: To Bed Mobility to 1: Edge of bed Level of Assistance 1: Standby Assist (using rails & elevated HOB) Bed Mobility Comments 1: safety Bed Mobility 2 Bed Mobility From 2: Edge of bed Bed Mobility Type 2: To Bed Mobility to 2: Supine Level of Assistance 2: Minimum Assist Bed Mobility Comments 2: BLE into bed RUE Assessment RUE Assessment RUE Assessment: Within Functional Limits LUE Assessment LUE Assessment LUE Assessment: Within Functional Limits Other Comments OT Goals Multi-Disciplinary Problems (from Occupational Therapy) Active Problems Problem: Bathing Start Date: 05/31/22 Goal Start Date Expected End Date End Date STG - Patient will bathe body 05/31/22 06/07/22 -- Goal Details: (Simulated) with MOD I Problem: Dressings Lower Extremities Start Date: 05/31/22 Goal Start Date Expected End Date End Date LTG - Patient will dress lower body 05/31/22 06/07/22 -- Goal Details: MOD I using A/E Problem: Transfers Start Date: 05/31/22 Goal Start Date Expected End Date End Date STG - Patient will perform toilet transfer 05/31/22 06/07/22 -- Goal Details: Pt will perform toilet transfer with MOD I ( only used BS) Problem: OT Misc Start Date: 05/31/22 Goal Start Date Expected End Date End Date OT STG - Misc 1 05/31/22 06/07/22 -- Goal Details: Pt to be indep with ADL/IADL * Belkys Platt RRT - 05/31/2022 1:35 AM CDT Pt with COVID PNA/STARR currently refusing to wear CPAP/NPPV therapy. rn / aware. * Joann Lyon [employer] SUPERVISOR - 05/30/2022 2:04 PM CDT Daily Progress Note Division of Hospital Medicine Name: Ayanna Gibbs Today: May 30, 2022 : 1950 Age: 72 y.o. female Admit: 05/27/2022 Bed: [id number] Subjective Chief complaint: Volume overload, SOB Interval History: Pulm status back to baseline O2 requirement. Asx bradycardia/pauses (up to 2.0 sec) overnight. Awaits PT/OT evals. Objective Medications: Scheduled: apixaban, 5 mg, oral, Q12H DELFIN cholecalciferol, 1,000 Units, oral, Daily cholestyramine-aspartame, 1 packet, oral, Daily - 0600 cyanocobalamin, 2,000 mcg, oral, Daily furosemide, 60 mg, oral, Daily hydrOXYchloroQUINE, 200 mg, oral, BID levothyroxine, 112 mcg, oral, Daily [START ON 05/31/2022] metoprolol XL, 100 mg, oral, Daily pravastatin, 80 mg, oral, Daily predniSONE, 15 mg, oral, QAM sertraline, 50 mg, oral, Daily trimethoprim, 100 mg, oral, Nightly umeclidinium-vilanteroL, 1 puff, inhalation, Daily (RT) Infusions: PRN: ??? acetaminophen ??? albuterol HFA ??? polyethylene glycol ??? ramelteon ??? traMADoL Vitals: 24hr Min/Max: Temp Min: 36.3 ??C (97.3 ??F) Max: 36.8 ??C (98.2 ??F) Pulse Min: 60 Max: 73 BP Min: 113/61 Max: 135/88 Resp Min: 16 Max: 18 SpO2 Min: 94 % Max: 97 % Most Recent: Vitals: 05/30/22 0939 BP: 135/88 Pulse: 68 Resp: 18 Temp: 36.7 SpO2: 94% 2L Intake/Output Summary (Last 24 hours) at 05/30/2022 1349 Last data filed at 05/30/2022 0900 Gross per 24 hour Intake 600 ml Output 1600 ml Net -1000 ml Physical Exam Constitutional: NAD, well developed, obese Eyes: PERRL, EOMI, anicteric ENT: NCAT, oropharynx normal, moist mucus membranes Lungs: CTA, unlabored at rest, increased WOB with minimal activity Cardiovascular: Irreg, syd, normal S1 and S2, no murmurs, no JVD appreciated GI: Soft, non-tender, non-distended, bowel sounds +, no organomegaly Skin: No new rashes, lesions or bruises on visible skin Extremities: Trace pretibial edema bilat, no cyanosis Neurologic: AOx4, CNII-XII intact, normal strength and sensation Psychiatric: Normal affect and mood, euthymic Lab/Diagnostic Review: Recent Results (from the past 36 hour(s)) Basic metabolic panel Collection Time: 05/29/22 9:28 PM Result Value Ref Range Sodium 140 135 - 145 mmol/L Potassium, pl 4.2 3.3 - 4.9 mmol/L Chloride 100 97 - 110 mmol/L CO2 31 22 - 32 mmol/L Anion gap 9 2 - 15 mmol/L BUN 44 (H) 8 - 25 mg/dL Creatinine 1.52 (H) 0.60 - 1.10 mg/dL Glucose 109 70 - 199 mg/dL Calcium 9.0 8.5 - 10.3 mg/dL CBC with auto differential Collection Time: 05/29/22 9:28 PM Result Value Ref Range WBC 10.6 (H) 3.8 - 9.9 K/cumm Hgb 10.3 (L) 11.9 - 15.5 g/dL Hct 33.3 (L) 35.6 - 45.5 % Plt 230 150 - 400 K/cumm MPV 10.8 9.1 - 12.3 fL RBC 3.39 (L) 3.90 - 5.20 M/cumm MCV 98.2 (H) 81.3 - 96.4 fL MCH 30.4 27.1 - 33.3 pg MCHC 30.9 (L) 32.3 - 35.7 g/dL RDW CV 12.7 11.1 - 14.9 % RDW SD 45.5 35.7 - 48.1 fL NRBC abs 0.00 0.00 - 0.01 K/cumm Hepatic function panel Collection Time: 05/29/22 9:28 PM Result Value Ref Range Bilirubin, total 0.3 0.1 - 1.2 mg/dL Bilirubin, direct <0.2 0.1 - 0.3 mg/dL Protein, pl 5.8 (L) 6.5 - 8.5 g/dL Albumin 3.3 (L) 3.5 - 5.0 g/dL Alk phos 100 40 - 130 Units/L ALT 21 7 - 45 Units/L AST 26 10 - 45 Units/L Magnesium Collection Time: 05/29/22 9:28 PM Result Value Ref Range Magnesium 2.2 1.4 - 2.5 mg/dL Differential, auto Collection Time: 05/29/22 9:28 PM Result Value Ref Range Neutrophil abs 8.7 (H) 1.7 - 6.5 K/cumm Imm gran abs 0.1 0.0 - 0.1 K/cumm Lymphocyte abs 1.0 0.8 - 3.3 K/cumm Monocyte abs 0.8 0.2 - 0.8 K/cumm Eosinophil abs 0.0 0.0 - 0.5 K/cumm Basophil abs 0.0 0.0 - 0.1 K/cumm Neutrophil pct 82.0 % Imm gran pct 0.8 % Lymphocyte pct 9.1 % Monocyte pct 7.6 % Eosinophil pct 0.3 % Basophil pct 0.2 % eGFR Collection Time: 05/29/22 9:28 PM Result Value Ref Range eGFR 36 (L) 90 - 130 mL/min/1.73 m2 Urinalysis reflex to microscopic and culture Urine, clean voided Collection Time: 05/30/22 9:19 AM Specimen: Urine, clean voided Result Value Ref Range Color, ur Straw Yellow Clarity, ur Clear Clear Specific gravity, ur 1.024 1.003 - 1.030 pH, urine 6.0 Protein, ur ql 1+ (A) Negative Glucose, ur ql Negative Negative Ketones, ur Negative Negative Bilirubin, ur Negative Negative Blood, ur 3+ (A) Negative Urobilinogen, ur <2.0 <2.0 mg/dL Nitrite, ur Negative Negative Leukocyte esterase, ur 3+ (A) Negative UA reflex comment Reflex to microscopic UA will be performed. Urinalysis, microscopic only Collection Time: 05/30/22 9:19 AM Result Value Ref Range WBC, ur >50 (A) 0 - 5 /HPF RBC, ur 11-20 (A) 0 - 2 /HPF Epithelial cells, squamous, ur 1-5 0 - 5 /HPF Bacteria, ur 2+ (A) Hyaline casts, ur 1-5 0 - 10 /LPF Culture Reflex Comment Reflex to urine culture will be performed. I have reviewed the laboratory results. Imaging Results: ECG 12 lead Gene Nails MD 05/27/2022 3:56 PM ECG [...] ED XR Chest Pa Lateral 2 Vw Narrative: EXAMINATION: 2 view chest radiograph Impression: [...] it. Electronically signed by: Sam Salas M.D. Assessment/Plan * Acute on chronic heart failure (CMS/HCC) ([facility]) Assessment & Plan 2/2 dietary indiscretion vs COVID or bacterial pneumonia. No standing weights recorded, still with some LE edema but on stable O2 - 40mg IV lasix yesterday, now well diuresed->can transition back to home 60mg po Lasix -continue home metop (dose decreased for bradycardia) -last TTE 12/2021 per outside notes with EF 55-60% -strict I/o, daily weights Rib fracture Assessment & Plan Tramadol prn. miralax daily prn. Incentive spirometer. -mobilize as able-rehab/SNF at discharge->will need new referrals as patient & daughter do not want her going back to prior facility. PT/OT evals pending Bacterial pneumonia Assessment & Plan Reports two weeks of productive green sputum after eating that is new. Appears to have been startedon cefdinir for PNA and UTI at OSH starting 05/22. Completed 7 total days of antibiotics (Azith, CTX) 05/29. COVID-19 Assessment & Plan Symptomatic with lethargy, leg swelling, and cough. -s/p remdesivir x2 days for high risk->stopped for bradycardia/pauses w/HR 30-40 yesterday Chronic respiratory failure with hypoxia (CMS/HCC) ([facility]) Assessment & Plan Continuous pulse ox while with COVID. -Remains at baseline 2L at rest, 4L with exertion. STARR on CPAP Assessment & Plan CPAP at night-home unit brought in by daughter. Encourage nightly use Rheumatoid arthritis (HCC) Assessment & Plan holding abatacept. Continued plaquenil Paroxysmal atrial fibrillation (CMS/HCC) ([facility]) Assessment & Plan -Chronic, on home metoprolol (dose decreased for persistent bradycardia/pauses) and eliquis -CTM on tele given bradycardia/pauses->remdesivir d/c'd Cosigned by Tamera Garza MD at 05/30/2022 6:21 PM CDT Associated attestation - Tamera Garza MD - 05/30/2022 6:21 PM CDT I have seen and examined the patient on 05/30/22 in conjunction with the non- physician provider. * Belkys Platt RRT - 05/30/2022 1:43 AM CDT Pt with STARR is refusing to wear cpap/nppv therapy. /rn aware. * Joann Lyno [employer] SUPERVISOR - 05/29/2022 4:29 PM CDT Daily Progress Note Division of Hospital Medicine Name: Ayanna Gibbs Today: May 29, 2022 : 1950 Age: 72 y.o. female Admit: 05/27/2022 Bed: [id number] Subjective Chief complaint: Volume overload, SOB Interval History: Stable pulm on baseline 2L, tho increased WOB with minimal activity. Remdesivir stopped 2/2 bradycardia this am. Objective Medications: Scheduled: apixaban, 5 mg, oral, Q12H DELFIN cholecalciferol, 1,000 Units, oral, Daily cholestyramine-aspartame, 1 packet, oral, Daily - 0600 cyanocobalamin, 2,000 mcg, oral, Daily hydrOXYchloroQUINE, 200 mg, oral, BID levothyroxine, 112 mcg, oral, Daily metoprolol XL, 125 mg, oral, Daily pravastatin, 80 mg, oral, Daily predniSONE, 15 mg, oral, QAM sertraline, 50 mg, oral, Daily trimethoprim, 100 mg, oral, Nightly umeclidinium-vilanteroL, 1 puff, inhalation, Daily (RT) Infusions: PRN: ??? acetaminophen ??? albuterol HFA ??? polyethylene glycol ??? ramelteon ??? traMADoL Vitals: 24hr Min/Max: Temp Min: 36.3 ??C (97.3 ??F) Max: 36.8 ??C (98.2 ??F) Pulse Min: 68 Max: 82 BP Min: 107/67 Max: 132/57 Resp Min: 16 Max: 20 SpO2 Min: 97 % Max: 99 % Most Recent: Vitals: 05/29/22 1555 BP: 115/58 Pulse: 73 Resp: 16 Temp: 36.3 ??C (97.3 ??F) SpO2: 98% 2L Intake/Output Summary (Last 24 hours) at 05/29/2022 1559 Last data filed at 05/29/2022 1000 Gross per 24 hour Intake 530 ml Output 1400 ml Net -870 ml Physical Exam Constitutional: NAD, well developed, obese Eyes: PERRL, EOMI, anicteric ENT: NCAT, oropharynx normal, moist mucus membranes Lungs: Fine wheezes bilat bases, unlabored at rest, increased WOB with minimal activity Cardiovascular: Irreg, syd, normal S1 and S2, no murmurs, no JVD appreciated GI: Soft, non-tender, non-distended, bowel sounds +, no organomegaly Skin: No new rashes, lesions or bruises on visible skin Extremities: 1+ pretibial edema bilat, no cyanosis Neurologic: AOx4, CNII-XII intact, normal strength and sensation Psychiatric: Normal affect and mood, euthymic I have reviewed the patient's vital signs. Lab/Diagnostic Review: I have reviewed the laboratory results from 05/28/22. Imaging Results: ECG 12 lead Gene Nails MD 05/27/2022 3:56 PM ECG [...] ED XR Chest Pa Lateral 2 Vw Narrative: EXAMINATION: 2 view chest radiograph Impression: [...] it. Electronically signed by: Sam Salas M.D. Assessment/Plan * Acute on chronic heart failure (CMS/HCC) ([facility]) Assessment & Plan 2/2 dietary indiscretion vs COVID or bacterial pneumonia. No standing weights recorded, still with some LE edema but on stable O2 - 40mg IV lasix today and reassess need for additional IV lasix tomorrow-can probably transition back to home 60mg po Lasix -continue home metop -last TTE 12/2021 per outside notes with EF 55-60% -strict I/o, daily weights Rib fracture Assessment & Plan Tramadol prn. miralax daily prn. Incentive spirometer. -mobilize as able-rehab/SNF at discharge->will need new referrals as patient & daughter do not want her going back to prior facility Bacterial pneumonia Assessment & Plan Reports two weeks of productive green sputum after eating that is new. Appears to have been startedon cefdinir for PNA and UTI at OSH starting 05/22. Will complete 7 total days of antibiotics (Azith,CTX) today. COVID-19 Assessment & Plan Symptomatic with lethargy, leg swelling, and cough. -s/p remdesivir x2 days for high risk->stopped for bradycardia/pauses w/HR 30-40 Chronic respiratory failure with hypoxia ([facility]) ([facility]) Assessment & Plan Continuous pulse ox while with COVID. -Remains at baseline 2L at rest, 4L with exertion. STARR on CPAP Assessment & Plan CPAP at night-home unit brought in by daughter Rheumatoid arthritis ([facility]) Assessment & Plan holding abatacept. Continue plaquenil Paroxysmal atrial fibrillation ([facility]) ([facility]) Assessment & Plan c/w home metoprolol and eliquis -CTM on tele given bradycardia/pauses->remdesivir d/c'd Cosigned by Tamera Garza MD at 05/29/2022 7:33 PM CDT Associated attestation - Tamera Garza MD - 05/29/2022 7:33 PM CDT I have seen and examined the patient on 05/29/22 in conjunction with the non- physician provider. Continue diuresis PRN * Hugo Reyna RN - 05/29/2022 1:45 PM CDT CM Initial Assessment Interview Note Information Obtained From: Adult child Name: BRIAN GIBBS (Daughter) [phone] (05/29/221339) via phone call Admission Source: from [facility] Impression: 72 yo female admitted for leg swelling Plan Includes: to establish a safe discharge plan Primary Source of Transportation: Does the patient need discharge transport arranged?: No (05/27/221909) Health Insurance Coverage: Medicare A&B, BCBS Prescription Coverage: yes [facility]acy: [facility] Primary Care Provider: Modesto Reyez DO Prior to Admission: Primary Caregiver: Family Support System: [employer] Support system contact info (name, phone, availablity): BRIAN GIBBS (Daughter) [phone] Home Care Services: No Durable Medical Equipment: Oxygen, CPAP/Bi-PAP, Wheelchair, Walker (wheeled) (2L at rest, 4L with exertion, oxygen thru [facility]) Living Arrangements: Children Type of Residence: Private residence Does patient wish to return to care facility?: Yes, wishes to return Steps in home? : Yes, Outside of home, Yes, Inside home Number of steps inside:: 14 steps Number of steps outside:: 1 steps (05/27/221909) SDOH: Transportation Needs: Not on file Financial Resource Strain: Not on file Housing Stability: Not on file Social Connections: Not on file Tobacco Use: Low Risk ??? Smoking Tobacco Use: Never Smoker ??? Smokeless Tobacco Use: Never Used Social History Substance and Sexual Activity Alcohol Use Not Currently ??? Alcohol/week: 0.0 standard drinks PHQ Screening Potential discharge needs include: needs pending Dialysis: No Behavioral Health Services: Behavioral Health Services: No (05/29/221339) Patient expects to be Discharged to: Assisted Facility, (05/29/221339) Additional Information: Patient's daughter Brian is POA. Patient lives in a house with her daughter. No active HH, no dialysis. Patient uses walker, wheelchair, oxygen and CPAP at home. Oxygen supplied through [facility]. On 2 liters at rest, 4 liters with exertion. Not a . Patient's Identified Problem/Goal Problem: Ensure acute medical needs are met and that patient has a safe discharge plan. Goal: Secure a discharge plan that patient/family are agreeable with and ensure patient has continuum of care. Case management will follow for discharge planning and send referrals as needed. Goals include: To assure continuity of care, To maximize coping skills, To assure patient is in a safe environment and To assure access to community resources. Plan includes: 1. Collaboration with patient, MD, direct care nurse, Customer Specialist, Nurse Coordinator and other members of the health care team to assure needed interventions completed. 2. Return patient to optimal level of self-care post discharge. 3. Trading Manager will follow for Discharge Planning - interventions as needed 4. Anticipated level of care at discharge 5. Planned Discharge Disposition Based on a comprehensive family assessment, assistance with instrumental activities of daily livingafter discharge will be provided by TBD Through the course of our work I determined that the TBD possesses the skill and ability to provideand monitor the care of the patient when he or she returns home. TBD has the capacity to provide/monitor/arrange for the care of the patient. Finally, we determined that TBD has the knowledge of available resources and that combining them with their existing resources will suffice to sustain and care for the patient when he or she returns home. The treatment team is aware of this information. Allare in agreement with the aftercare plan. Hugo Reyna RN * Manoj Joseph MD - 05/28/2022 1:19 PM CDT Daily Progress Note Division of Hospital Medicine Name: Ayanna Gibbs Today: May 28, 2022 : 1950 Age: 72 y.o. female Admit: 05/27/2022 Bed: [id number] Subjective Chief complaint: volume overload, SOB Interval History: - No acute overnight events. Good UOP with IV lasix. Still reports feeling poorly, having trouble getting comfortable and sleeping. Has some skin breakdown on buttocks. - Daughter at bedside. Wants pt go to rehab at discharge, but will not return to same rehab Objective Medications: Scheduled: apixaban, 5 mg, oral, Q12H DELFIN azithromycin, 500 mg, oral, Daily cefTRIAXone, 1,000 mg, intravenous, Q24H DELFIN cholecalciferol, 1,000 Units, oral, Daily cholestyramine-aspartame, 1 packet, oral, Daily - 0600 cyanocobalamin, 2,000 mcg, oral, Daily hydrOXYchloroQUINE, 200 mg, oral, BID levothyroxine, 112 mcg, oral, Daily metoprolol XL, 125 mg, oral, Daily pravastatin, 80 mg, oral, Daily predniSONE, 15 mg, oral, QAM remdesivir, 100 mg, intravenous, Q24H sertraline, 50 mg, oral, Daily trimethoprim, 100 mg, oral, Nightly umeclidinium-vilanteroL, 1 puff, inhalation, Daily (RT) Infusions: PRN: ??? acetaminophen ??? albuterol HFA ??? polyethylene glycol ??? ramelteon ??? traMADoL Vitals: 24hr Min/Max: Temp Min: 36.2 ??C (97.2 ??F) Max: 36.5 ??C (97.7 ??F) Pulse Min: 53 Max: 80 BP Min: 131/73 Max: 188/138 Resp Min: 14 Max: 23 SpO2 Min: 96 % Max: 100 % Most Recent: Vitals: 05/28/22 0850 BP: Pulse: 77 Resp: 19 Temp: 36.2 ??C (97.2 ??F) SpO2: 100% Intake/Output Summary (Last 24 hours) at 05/28/2022 1303 Last data filed at 05/28/2022 1145 Gross per 24 hour Intake -- Output 3150 ml Net -3150 ml Physical Exam Constitutional: NAD, chronically ill appearing Eyes: PERRL, EOMI, anicteric ENT: NCAT, oropharynx normal, moist mucus membranes Lungs: Bibasilar dry crackle, intermitte wheeze and squeak, unlabored Cardiovascular: RRR, normal S1 and S2, no murmurs, no JVD GI: Soft, non-tender, non-distended, bowel sounds +, no organomegaly Skin: No new rashes, lesions or bruises on visible skin Extremities: 1-2+ BLE edema Neurologic: AOx4, nonfocal Psychiatric: Normal affect and mood I have reviewed the patient's vital signs. Lab/Diagnostic Review: Recent Results (from the past 36 hour(s)) CBC with auto differential Collection Time: 05/27/22 1:16 PM Result Value Ref Range WBC 7.9 3.8 - 9.9 K/cumm Hgb 11.9 11.9 - 15.5 g/dL Hct 37.2 35.6 - 45.5 % Plt 265 150 - 400 K/cumm MPV 11.6 9.1 - 12.3 fL RBC 3.83 (L) 3.90 - 5.20 M/cumm MCV 97.1 (H) 81.3 - 96.4 fL MCH 31.1 27.1 - 33.3 pg MCHC 32.0 (L) 32.3 - 35.7 g/dL RDW CV 13.0 11.1 - 14.9 % RDW SD 47.0 35.7 - 48.1 fL NRBC abs 0.00 0.00 - 0.01 K/cumm Basic metabolic panel Collection Time: 05/27/22 1:16 PM Result Value Ref Range Sodium 142 135 - 145 mmol/L Potassium, pl See Comment 3.3 - 4.9 mmol/L Chloride 102 97 - 110 mmol/L CO2 32 22 - 32 mmol/L Anion gap 8 2 - 15 mmol/L BUN 49 (H) 8 - 25 mg/dL Creatinine 1.31 (H) 0.60 - 1.10 mg/dL Glucose 110 70 - 199 mg/dL Calcium 10.0 8.5 - 10.3 mg/dL Blood gas, venous Collection Time: 05/27/22 1:16 PM Result Value Ref Range pH, Venous 7.32 7.32 - 7.43 PCO2, Venous 59 (H) 40 - 50 mmHg PO2, Venous 39 mmHg HCO3 Venous, Calculated 32 (H) 20 - 30 mmol/L BE, venous 3 mmol/L Troponin I high-sensitivity series (baseline, 2hr, 4hr, 6hr) Collection Time: 05/27/22 1:16 PM Result Value Ref Range Trop I hs 22 (H) <=17 ng/L Pro B-type natriuretic peptide Collection Time: 05/27/22 1:16 PM Result Value Ref Range NT-proBNP 1,618 (H) <=300 pg/mL Differential, auto Collection Time: 05/27/22 1:16 PM Result Value Ref Range Neutrophil abs 6.4 1.7 - 6.5 K/cumm Imm gran abs 0.0 0.0 - 0.1 K/cumm Lymphocyte abs 0.9 0.8 - 3.3 K/cumm Monocyte abs 0.6 0.2 - 0.8 K/cumm Eosinophil abs 0.0 0.0 - 0.5 K/cumm Basophil abs 0.0 0.0 - 0.1 K/cumm Neutrophil pct 81.1 % Imm gran pct 0.5 % Lymphocyte pct 11.2 % Monocyte pct 7.1 % Eosinophil pct 0.0 % Basophil pct 0.1 % eGFR Collection Time: 05/27/22 1:16 PM Result Value Ref Range eGFR 43 (L) 90 - 130 mL/min/1.73 m2 Hepatic function panel Collection Time: 05/27/22 1:16 PM Result Value Ref Range Bilirubin, total 0.4 0.1 - 1.2 mg/dL Bilirubin, direct See Comment 0.1 - 0.3 mg/dL Protein, pl 7.4 6.5 - 8.5 g/dL Albumin 3.9 3.5 - 5.0 g/dL Alk phos See Comment 40 - 130 Units/L ALT See Comment 7 - 45 Units/L AST See Comment 10 - 45 Units/L Troponin I high-sensitivity 2-hour Collection Time: 05/27/22 2:53 PM Result Value Ref Range Trop I hs 21 (H) <=17 ng/L Trop I hs delta -1 ng/L Trop I hs interp Insignificant Troponin I high-sensitivity 4-hour Collection Time: 05/27/22 4:55 PM Result Value Ref Range Trop I hs 21 (H) <=17 ng/L Trop I hs delta -1 ng/L Trop I hs interp Insignificant COVID-19 Coronavirus RNA Nasopharyngeal Collection Time: 05/27/22 4:55 PM Specimen: Nasopharyngeal Result Value Ref Range COVID-19 RNA Positive (A) Negative Potassium, whole blood Collection Time: 05/27/22 4:55 PM Result Value Ref Range Potassium, bld 4.8 3.3 - 4.9 mmol/L Troponin I high-sensitivity 6-hour Collection Time: 05/27/22 9:48 PM Result Value Ref Range Trop I hs 18 (H) <=17 ng/L Trop I hs delta See Comment ng/L Trop I hs pct delta See Comment % Trop I hs interp See Comment Basic metabolic panel Collection Time: 05/28/22 12:08 AM Result Value Ref Range Sodium 143 135 - 145 mmol/L Potassium, pl 4.5 3.3 - 4.9 mmol/L Chloride 102 97 - 110 mmol/L CO2 32 22 - 32 mmol/L Anion gap 9 2 - 15 mmol/L BUN 49 (H) 8 - 25 mg/dL Creatinine 1.31 (H) 0.60 - 1.10 mg/dL Glucose 75 70 - 199 mg/dL Calcium 10.0 8.5 - 10.3 mg/dL CBC with auto differential Collection Time: 05/28/22 12:08 AM Result Value Ref Range WBC 6.3 3.8 - 9.9 K/cumm Hgb 10.8 (L) 11.9 - 15.5 g/dL Hct 34.4 (L) 35.6 - 45.5 % Plt 192 150 - 400 K/cumm MPV 11.0 9.1 - 12.3 fL RBC 3.52 (L) 3.90 - 5.20 M/cumm MCV 97.7 (H) 81.3 - 96.4 fL MCH 30.7 27.1 - 33.3 pg MCHC 31.4 (L) 32.3 - 35.7 g/dL RDW CV 12.9 11.1 - 14.9 % RDW SD 45.8 35.7 - 48.1 fL NRBC abs 0.00 0.00 - 0.01 K/cumm Hepatic function panel Collection Time: 05/28/22 12:08 AM Result Value Ref Range Bilirubin, total 0.4 0.1 - 1.2 mg/dL Bilirubin, direct <0.2 0.1 - 0.3 mg/dL Protein, pl 6.4 (L) 6.5 - 8.5 g/dL Albumin 3.5 3.5 - 5.0 g/dL Alk phos 112 40 - 130 Units/L ALT 23 7 - 45 Units/L AST 39 10 - 45 Units/L Magnesium Collection Time: 05/28/22 12:08 AM Result Value Ref Range Magnesium 1.7 1.4 - 2.5 mg/dL Differential, auto Collection Time: 05/28/22 12:08 AM Result Value Ref Range Neutrophil abs 4.2 1.7 - 6.5 K/cumm Imm gran abs 0.1 0.0 - 0.1 K/cumm Lymphocyte abs 1.4 0.8 - 3.3 K/cumm Monocyte abs 0.7 0.2 - 0.8 K/cumm Eosinophil abs 0.0 0.0 - 0.5 K/cumm Basophil abs 0.0 0.0 - 0.1 K/cumm Neutrophil pct 65.7 % Imm gran pct 0.8 % Lymphocyte pct 22.4 % Monocyte pct 10.9 % Eosinophil pct 0.2 % Basophil pct 0.0 % eGFR Collection Time: 05/28/22 12:08 AM Result Value Ref Range eGFR 43 (L) 90 - 130 mL/min/1.73 m2 I have reviewed the laboratory results. Imaging Results: ECG 12 lead Gene Nails MD 05/27/2022 3:56 PM ECG [...] ED XR Chest Pa Lateral 2 Vw Narrative: EXAMINATION: 2 view chest radiograph Impression: [...] it. Electronically signed by: Sam Salas M.D. Assessment/Plan * Acute on chronic heart failure ([facility] ([facility]) Assessment & Plan 2/2 dietary indiscretion vs COVID or bacterial pneumonia. No standing weights recorded, still with some LE edema but on stable O2 - 60 IV lasix today and reassess need for additional IV lasix tomorrow -continue home metop -strict I/o, daily weights Bacterial pneumonia Assessment & Plan Reports two weeks of productive green sputum after eating that is new. Appears to have been startedon cefdinir for PNA and UTI at OSH starting 05/22. Will continue treatment for 7 total days of antibiotics COVID-19 Assessment & Plan Symptomatic with lethargy, leg swelling, and cough. -remdesivir x3 days for high risk. Chronic respiratory failure with hypoxia ([facility] ([facility]) Assessment & Plan Continuous pulse ox while with COVID. Baseline 2L at rest, 4L with exertion. ILD (interstitial lung disease) ([facility] ([facility]) Assessment & Plan No increased oxygen requirement or symptoms of dyspnea. c/w prednisone 15mg, bactrim. Hold abetacept. Message rheum (usually hold 7-10 days until sx resolve) Rib fracture Assessment & Plan Tramadol prn. miralax daily prn. Incentive spirometer. Recurrent major depressive disorder, in partial remission ([facility]) Assessment & Plan hold duloxetine due to decreased Cr, setraline Hyperlipidemia, unspecified Assessment & Plan c/w pravastatin STARR on CPAP Assessment & Plan CPAP at night Morbid obesity with BMI of 45.0-49.9, adult ([facility] ([facility]) Assessment & Plan PT/OT consulted. Rheumatoid arthritis ([facility]) Assessment & Plan hold abatacept. Continue plaquinel Paroxysmal atrial fibrillation ([facility]) ([facility]) Assessment & Plan c/w home metoprolol and eliquis documented in this encounter H&P Notes * Timothy Hernandez MD - 05/27/2022 8:45 PM CDT History and Physical Division of [facility] Name: Ayanna Gibbs Today: May 27, 2022 : 1950 Age: 72 y.o. female Subjective The patient is a 72 y.o. female with chief complaint of leg swelling. HPI: 72 w/ hx of RA, ILD on 2L rest 4L exertion, AF who presents with leg swelling She states she was in her usual state of health approximately early April described as walking 40 feet at a time using a walker, climbing 7 steps at a time, requiring 2L at rest, 4L with exertion, andindependent of ADL until her cardiology appointment (05/10) where they were happy that she had lost weight on a diuretic regimen of 60mg daily. Afterwards she stated that she may have drank more soda and ate more unhealthy food. During the week after her appointment, she noticed increased leg swelling without orthopnea, or dyspnea on exertion (although is extremely functionaly limited at baseline). Then on 05/22 at night, she was unable to lift her legs to get on the bed. She subsequently had a mechnaical fall without hitting her heard or prodoromal symptoms. She fell on her side and her family took her to the ED. She received a CT chest that showed three left sided rib fractures and GGOs consistent with her underlying ILD. She received pain medications for her rib fractures but only home diuretics for her leg swelling. To note, her discharge medication list from [facility] includescefdinir. She was discharged on 05/26 to [facility] facility. When she was at the facility, she was too lethargic and unable to work with therapy and decided to go to [facility] ER on 05/27. To note, she states she has had a new productive green cough only after eating for 3-4 weeks that has been unchanged. On arrival to [facility] ER, her vital signs were stable saturating 98% on home 2L O2 at rest. Her diagnostic tests were pertinent for +COVID test. She was treated as a COPD and HF exacerbation and receivedceftriaxone, azithromycin, and 40 IV lasix. Her current complaints is generalized fatigue and bilateral leg swelling minimally greater than usual. Past Medical History: Diagnosis Date ??? Atrial [...] replacement both (L) & (R) ??? THYROIDECTOMY Medications Prior to Admission Medication Sig Dispense Refill Last Dose ??? abatacept (Orencia ClickJect) 125 mg/mL auto-injector Inject 1 mL (125 mg total) under the skinonce a week 4 mL 2 ??? calcium carbonate-vit D3-min 600 mg calcium- [...] 2 (two) times a day ??? furosemide (LASIX) 20 mg tablet Take 1 tablet (20 mg total) by mouth daily To be taken along with furosemide 40 mg tab daily (TOTAL 60MG) 90 tablet 3 ??? furosemide (LASIX) 40 mg tablet Take 1 tablet (40 mg total) by mouth daily To be taken along with furosemide 20 mg tab daily (TOTAL 60MG) 90 tablet 3 ??? hydroxychloroquine (PLAQUENIL) 200 mg tablet Take 200 mg by mouth 2 (two) times a day ??? levothyroxine (SYNTHROID) 112 mcg tablet Take 112 mcg by mouth daily ??? metoprolol XL (TOPROL-XL) 100 mg 24 hr tablet TAKE 1 TABLET(100 MG) BY MOUTH TREASURY ACCOUNTANT BEFORE BREAKFAST 90 tablet 3 ??? metoprolol XL (TOPROL-XL) 25 mg extended release tablet TAKE 1 TABLET(25 MG) BY MOUTH DAILY 90 tablet 3 ??? phenazopyridine (PYRIDIUM) 200 mg tablet TAKE 1 TABLET BY MOUTH THREE TIMES DAILY NEEDED FORURINARY SYMPTOMS ??? potassium chloride ER (KLOR-CON) 10 mEq CR tablet Take 3 tablet/capsule (30 mEq total) by mouthdaily 270 tablet/capsule 3 ??? pravastatin (PRAVACHOL) 80 mg tablet Take 80 mg by mouth daily ??? predniSONE (DELTASONE) 5 mg tablet Take 15 mg by mouth every morning ??? sertraline (ZOLOFT) 50 mg tablet Take 50 mg by mouth daily ??? traMADoL (ULTRAM) 50 mg tablet Take by mouth every 8 (eight) hours as needed ??? trimethoprim (TRIMPEX) 100 mg tablet Take 100 mg by mouth nightly at bedtime. No Known Allergies Social History Tobacco Use ??? Smoking status: Never Smoker ??? Smokeless tobacco: Never Used Substance and Sexual Activity ??? Drug use: Never ??? Sexual activity: Never Alcohol Use: Not on file Family History Problem Relation Age of Onset ??? Hypertension Mother ??? Blood Clot Father ??? Clotting disorder Father ??? Rheum arthritis Father ??? No Known Problems Sister ??? No Known Problems Sister Review of Systems Review of Systems Constitutional: Negative for chills, fever and weight loss. HENT: Positive for congestion. Negative for ear discharge, ear pain and sore throat. Eyes: Negative for blurred vision and pain. Respiratory: Positive for cough (Green). Negative for shortness of breath. Cardiovascular: Positive for leg swelling. Negative for chest pain. Gastrointestinal: Negative for abdominal pain, blood in stool, constipation, diarrhea, melena, nausea and vomiting. Genitourinary: Negative for dysuria, frequency and hematuria. Musculoskeletal: Negative for back pain. Skin: Negative for rash. Neurological: Negative for sensory change, focal weakness and headaches. Endo/Heme/Allergies: Does not bruise/bleed easily. Psychiatric/Behavioral: Negative for depression. All other systems reviewed and are negative. Objective Vitals: 24hr Min/Max: Temp Min: 36.4 ??C (97.5 ??F) Max: 36.6 ??C (97.8 ??F) Pulse Min: 47 Max: 72 BP Min: 132/67 Max: 188/138 Resp Min: 14 Max: 28 SpO2 Min: 96 % Max: 100 % Most Recent Vitals: Vitals: 05/27/22 1910 BP: 132/67 Pulse: 72 Resp: 18 Temp: 36.4 ??C (97.5 ??F) SpO2: 99% Intake/Output Summary (Last 24 hours) at 05/27/20222044 Last data filed at 05/27/2022 1716 Gross per 24 hour Intake -- Output 800 ml Net -800 ml Physical Exam: Physical Exam Constitutional: General: She is not in acute distress. Appearance: She is not toxic-appearing. HENT: Head: Normocephalic and atraumatic. Mouth/Throat: Pharynx: Oropharynx is clear. No oropharyngeal exudate or posterior oropharyngeal erythema. Eyes: Pupils: Pupils are equal, round, and reactive to light. Neck: Thyroid: No thyromegaly. Vascular: No JVD. Cardiovascular: Rate and Rhythm: Normal rate and regular rhythm. Heart sounds: Normal heart sounds. No murmur heard. Pulmonary: Effort: Pulmonary effort is normal. No respiratory distress. Breath sounds: Normal breath sounds. Abdominal: General: Bowel sounds are normal. Palpations: Abdomen is soft. Tenderness: There is no abdominal tenderness. Musculoskeletal: Right lower leg: Edema (2+ to knee) present. Left lower leg: Edema (2+ to knee) present. Lymphadenopathy: Cervical: No cervical adenopathy. Skin: General: Skin is warm and dry. Neurological: Mental Status: She is alert and oriented to person, place, and time. Sensory: No sensory deficit. Motor: No weakness. Psychiatric: Mood and Affect: Mood normal. Lab/Diagnostic Review: Recent Results (from the past 24 hour(s)) CBC with auto differential Collection Time: 05/27/22 1:16 PM Result Value Ref Range WBC 7.9 3.8 - 9.9 K/cumm Hgb 11.9 11.9 - 15.5 g/dL Hct 37.2 35.6 - 45.5 % Plt 265 150 - 400 K/cumm MPV 11.6 9.1 - 12.3 fL RBC 3.83 (L) 3.90 - 5.20 M/cumm MCV 97.1 (H) 81.3 - 96.4 fL MCH 31.1 27.1 - 33.3 pg MCHC 32.0 (L) 32.3 - 35.7 g/dL RDW CV 13.0 11.1 - 14.9 % RDW SD 47.0 35.7 - 48.1 fL NRBC abs 0.00 0.00 - 0.01 K/cumm Basic metabolic panel Collection Time: 05/27/22 1:16 PM Result Value Ref Range Sodium 142 135 - 145 mmol/L Potassium, pl See Comment 3.3 - 4.9 mmol/L Chloride 102 97 - 110 mmol/L CO2 32 22 - 32 mmol/L Anion gap 8 2 - 15 mmol/L BUN 49 (H) 8 - 25 mg/dL Creatinine 1.31 (H) 0.60 - 1.10 mg/dL Glucose 110 70 - 199 mg/dL Calcium 10.0 8.5 - 10.3 mg/dL Blood gas, venous Collection Time: 05/27/22 1:16 PM Result Value Ref Range pH, Venous 7.32 7.32 - 7.43 PCO2, Venous 59 (H) 40 - 50 mmHg PO2, Venous 39 mmHg HCO3 Venous, Calculated 32 (H) 20 - 30 mmol/L BE, venous 3 mmol/L Troponin I high-sensitivity series (baseline, 2hr, 4hr, 6hr) Collection Time: 05/27/22 1:16 PM Result Value Ref Range Trop I hs 22 (H) <=17 ng/L Pro B-type natriuretic peptide Collection Time: 05/27/22 1:16 PM Result Value Ref Range NT-proBNP 1,618 (H) <=300 pg/mL Differential, auto Collection Time: 05/27/22 1:16 PM Result Value Ref Range Neutrophil abs 6.4 1.7 - 6.5 K/cumm Imm gran abs 0.0 0.0 - 0.1 K/cumm Lymphocyte abs 0.9 0.8 - 3.3 K/cumm Monocyte abs 0.6 0.2 - 0.8 K/cumm Eosinophil abs 0.0 0.0 - 0.5 K/cumm Basophil abs 0.0 0.0 - 0.1 K/cumm Neutrophil pct 81.1 % Imm gran pct 0.5 % Lymphocyte pct 11.2 % Monocyte pct 7.1 % Eosinophil pct 0.0 % Basophil pct 0.1 % eGFR Collection Time: 05/27/22 1:16 PM Result Value Ref Range eGFR 43 (L) 90 - 130 mL/min/1.73 m2 Troponin I high-sensitivity 2-hour Collection Time: 05/27/22 2:53 PM Result Value Ref Range Trop I hs 21 (H) <=17 ng/L Trop I hs delta -1 ng/L Trop I hs interp Insignificant Troponin I high-sensitivity 4-hour Collection Time: 05/27/22 4:55 PM Result Value Ref Range Trop I hs 21 (H) <=17 ng/L Trop I hs delta -1 ng/L Trop I hs interp Insignificant COVID-19 Coronavirus RNA Nasopharyngeal Collection Time: 05/27/22 4:55 PM Specimen: Nasopharyngeal Result Value Ref Range COVID-19 RNA Positive (A) Negative Potassium, whole blood Collection Time: 05/27/22 4:55 PM Result Value Ref Range Potassium, bld 4.8 3.3 - 4.9 mmol/L I have reviewed the laboratory results. Imaging Results: ECG 12 lead Gene Nails MD 05/27/2022 3:56 PM ECG 12 lead Date/Time: 05/27/2022 3:52 PM Performed by: Gene aNils MD Authorized by: Luis Fernando Gomez MD [...] ED XR Chest Pa Lateral 2 Vw Narrative: EXAMINATION: 2 view chest radiograph Impression: [...] it. Electronically signed by: Sam Salas M.D. Additional diagnostic/procedure review: I have reviewed EKG. My findings are: normal sinus rhythm Assessment/Plan 72 w/ hx of RA, ILD on 2L rest 4L exertion, AF who presents with leg swelling. Likely has a mild HFexacerbation secondary to some dietary indiscretion and COVID. Unlikely to have a bacterial pneumonia but was treated with cephalosporins and will cover for ~5-7 days. Her dry weight appears to be 112- 115 kg so she will only need a short course of IV diuresis. Rib fracture Assessment & Plan Tramadol prn. miralax daily prn Bacterial pneumonia Assessment & Plan Reports two weeks of productive green sputum after eating that is new. Appears to have been startedon cefdinir at OSH starting 05/22. Will continue treatment of 7 days of antibiotics -Obtain OSH records. Likely needs CTX for 1 more day for a 5-7 day course COVID-19 Assessment & Plan Symptomatic with lethargy, leg swelling, and cough. -remdesivir x3 days for high risk. Pending LFT to confirm no transaminitis Recurrent major depressive disorder, in partial remission ([facility]) Assessment & Plan hold duloxetine due to decreased Cr, setraline Hyperlipidemia, unspecified Assessment & Plan c/w pravastatin Chronic respiratory failure with hypoxia ([facility] ([facility]) Assessment & Plan Continuous pulsox while with COVID. Baseline 2L at rest, 4L with exertion. ILD (interstitial lung disease) ([facility] ([facility]) Assessment & Plan No increased oxygen requirement or symptoms of dyspnea. c/w prednisone 15mg, bactrim. Hold abetacept. Message rheum (usually hold 7-10 days until sx resolve) STARR on CPAP Assessment & Plan CPAP at night Morbid obesity with BMI of 45.0-49.9, adult ([facility] ([facility]) Assessment & Plan PT/OT consulted. Rheumatoid arthritis ([facility]) Assessment & Plan hold abatacept. Continue plaquinel Paroxysmal atrial fibrillation ([facility]) ([facility] Assessment & Plan c/w home metoprolol and eliquis * Acute on chronic heart failure ([facility]) ([facility]) Assessment & Plan 2/2 dietary indiscretion vs COVID or bacterial pneumonia. Appears to be at dry weight. - 60 IV lasix daily. Likely needs only 2 days of IV diuresis -continue home metop -strict I/o, daily weights documented in this encounter Nursing Notes * Missy Davidson RN - 06/07/2022 6:40 PM CDT Patient's VS stable. Peripheral IV removed. Went over discharge education and orders with patient, verbalized understanding. Patient belongings taken with. No mobile pharmacy medications. Patient [facility] via EMS. Report given to receiving SNF. * Elle Toth RN - 06/04/2022 3:25 PM CDT Assumed care at 1520, agree with previous assessment.. * Tawana Farmer RN - 06/04/2022 12:00 PM CDT Report called to Manuela at [facility]. Telemetry removed. * Helene Cuevas RN - 06/02/2022 10:38 PM CDT Precepting TOM Smalls from 1900 to 0700. Agree with all assessments made. All tasks and assessments completed under direct supervision of this RN. * Saray Noble RN - 05/29/2022 3:47 PM CDT Wound/Ostomy Service Initial Consult Note Admit Date: 05/27/2022 11:58 AM Today's Date: 05/29/22 Day of Hospital Stay: Hospital Day: 3 Reason for Consult: buttocks Nutrition Body mass index is 45.48 kg/m??. Adult Diet Restricted; 2 GM Sodium Support Surfaces Type of Bed: bariatric Type of Sitting Surface: n/a Skin/Wound Assessment : 05/29/22 1500 Wound 05/27/22 MASD (Moisture associated skin damage) Other (Comment) Buttocks scattered skin peel on both buttocks with some skin discoloration, blanchable Date First Assessed/Time First Assessed: 05/27/22 2200 Present on Hospital Admission: Yes Wound Type: (c) MASD (Moisture associated skin damage) Location Orientation: (c) Other (Comment) Location: Buttocks Wound Description (Comments): scattered... Wound Status Evolving Site Assessment Excoriated Amaya-wound Assessment Ecchymosis Closure Open to air Drainage Amount None Education: Discussed rolling side to side for skin health. Recommendations: Please apply thin layer EPC to buttocks BID and PRN. Please use personal cleanser to completely remove EPC, dry thoroughly and place interdry to skin folds and under breasts, leaving two inches out for wicking. Plan of care discussed with: Pt and BILLY [place] Questions answered: Yes Wound/Ostomy will follow patient: no Any questions or concerns please contact the Wound/Ostomy department at [phone] Saray Noble RN * Vaishnavi Swain RN - 05/27/2022 7:16 PM CDT Pt arrived to [address] [place] [address] A from ED with patient transport and RN. VSS. documented in this encounter ED Notes * Gene Nails MD - 05/27/2022 12:35 PM CDT HPI Chief Complaint Patient presents with ??? COVID-19 EVALUATION HPI Patient History: 72 y.o. female with ILD on 2-4L home O2, HFpEF, HTN, pAFib and hx of DVT on apixiban, COVID + at [facility] on 05/22/22 was admitted on 05/22 for 3 L sided rib fractures then discharged to [facility] yesterday now presenting for LE swelling that has not improved since recent admission and reports rehab facility did not do anything for her . Also reporting worsening green sputumproductive cough. Patient denies chest pain other than the left lateral chest pain she has from herrib fractures with coughing, fevers, shortness of breath, abd pain, nausea, vomiting. Reports she did receive some of her home medications this morning but unclear which were given to her at the facility. Patient Active Problem List Diagnosis Date Noted ??? Acute on chronic heart failure (CMS/HCC) ([facility]) 05/27/2022 ??? Chronic respiratory failure with hypoxia (CMS/HCC) ([facility]) 04/17/2022 ??? ILD (interstitial lung disease) (CMS/HCC) ([facility]) ??? H/O influenza 11/02/2021 ??? STARR on CPAP 07/07/2020 ??? Chronic heart failure with preserved ejection fraction (CMS/HCC) ([facility]) 05/05/2020 ??? Rheumatoid arthritis ([facility]) 05/05/2020 ??? Morbid obesity with BMI of 45.0-49.9, adult (CMS/HCC) ([facility]) 05/05/2020 ??? Paroxysmal atrial fibrillation (CMS/HCC) ([facility]) 02/09/2020 ??? Chronic anticoagulation 02/09/2020 Past Medical History: Diagnosis Date ??? Atrial fibrillation (CMS/HCC) ([facility]) ??? Cataracts, bilateral ??? CHF (congestive heart failure) ([facility]/HCC) ([facility]) ??? Depression 12/2021 ??? Diastolic dysfunction ??? Diverticulitis ??? H/O section ??? Heart disease ??? Hypertension ??? Obesity ??? Sleep apnea ??? Thyroid disease ??? Wears dentures Past Surgical History: Procedure Laterality Date ??? SECTION ??? CHOLECYSTECTOMY ? ? JOINT REPLACEMENT Knee replacement both (L) & (R) ??? THYROIDECTOMY Family History Problem Relation Age of Onset ??? Hypertension Mother ??? Blood Clot Father ??? Clotting disorder Father ??? Rheum arthritis Father ??? No Known Problems Sister ??? No Known Problems Sister Social History Tobacco Use ??? Smoking status: Never Smoker ??? Smokeless tobacco: Never Used Substance and Sexual Activity ??? Drug use: Never ??? Sexual activity: Never Alcohol Use: Not on file Social History Social History Narrative ??? Not on file Review of Systems Review of Systems Constitutional: Negative for fever. HENT: Negative for congestion. Eyes: Negative for visual disturbance. Respiratory: Positive for cough. Negative for shortness of breath. Cardiovascular: Positive for chest pain (left sided ) and leg swelling. Gastrointestinal: Negative for abdominal pain and vomiting. Genitourinary: Negative for dysuria. Musculoskeletal: Negative for arthralgias. Skin: Negative for rash. Neurological: Negative for headaches. Physical Exam ED Triage Vitals [05/27/22 1012] Temp Pulse Resp BP SpO2 36.6 ??C (97.8 ??F) 57 18 151/82 96 % Temp src Heart Rate Source Patient Position BP Location FiO2 (%) Oral -- -- -- -- Height Height Method Weight Weight Method 1.575 m (5' 2 ) -- 113.4 kg (250 lb) -- Physical Exam Vitals and nursing note reviewed. Constitutional: General: She is not in acute distress. Appearance: She is obese. She is not ill-appearing or diaphoretic. HENT: Head: Normocephalic and atraumatic. Nose: Nose normal. Mouth/Throat: Mouth: Mucous membranes are dry. Pharynx: Oropharynx is clear. Eyes: Conjunctiva/sclera: Conjunctivae normal. Comments: No eye discharge Cardiovascular: Rate and Rhythm: Regular rhythm. Bradycardia present. Pulses: Normal pulses. Heart sounds: Normal heart sounds. Pulmonary: Effort: Pulmonary effort is normal. Breath sounds: No wheezing. Comments: Bibasilar crackles L>R. Mild residual tenderness to palpation on left lateral chest. Abdominal: Palpations: Abdomen is soft. Tenderness: There is no abdominal tenderness. There is no right CVA tenderness, left CVA tendernessor guarding. Hernia: No hernia is present. Musculoskeletal: General: No deformity. Comments: Edema to ankles, nonpitting Skin: General: Skin is warm and dry. Findings: No rash. Neurological: General: No focal deficit present. Mental Status: She is alert. Psychiatric: Attention and Perception: Attention normal. Mood and Affect: Mood normal. MDM MDM Ayanna Gibbs is a 72 y.o. female with aforementioned past medical history presenting with persistent lower extremity swelling since recent admission as well as a new productive cough. Vitals notable for bradycardia otherwise saturating well with normal vitals on home 2 L. On exam, has bibasilarcrackles, nonpitting swelling to bilateral feet. Ddx: Worsening a known COVID pneumonia, superimposed bacterial pneumonia, atelectasis, heart failure exacerbation, ACS. Plan for labs including cardiac workup, chest x-ray and repeat COVID swab is in no test found in our system. Dispo: Pending Portions of the record may have been created with voice recognition software. Occasional wrong-word or '[id number]' substitutions may have occurred due to the inherent limitations of voice recognition software. Read the chart carefully and recognize, using context, where substitutions have occurred. Attending Summary of Care I Gene Nails MD have seen and examined this patient. I have discussed/reviewed the history, physical exam and assessment with the resident. We are in agreement with treatment plan except as I have noted. ED Course as of 05/27/221743 Time: 05/27 1520 Value: Indra Cardoza hs(!): 22 Comment: No prev to compare will give ASA and trend By: Luis Fernando Gomez MD Time: 05/27 1550 Value: Trop I hs(!): 21 Comment: (Reviewed) By: Luis Fernando Gomez MD Time: 05/27 1744 Value: COVID-19 RNA(!): Positive Comment: (Reviewed) By: Luis Fernando Gomez MD Acute on chronic heart failure, unspecified heart failure type (HCC) Gene Nails MD 05/27/22 1128 * Caprice Sandoval, BILLY - 05/27/2022 11:58 AM CDT Bed: ED2-28 Expected date: 05/27/22 Expected time: Means of arrival: Comments: Shailesh - Triage Caprice Sandoval RN 05/27/22 1158 * Cristin Peace RN - 05/27/2022 10:06 AM CDT Pt presents from [facility] ([place], [place]). Pt sustained a fall last week and was admitted to [facility]. She was discharged to the rehab yesterday. She reports that rehab didn't do anything for her yesterday... I had to ask for something to eat. She reports that sheis in the process of transferring her care/doctors to [place] and wanted to be seen. No acute/new complaints. Is COVID + from [facility] last Saturday, wears 2-4L per NC at baseline. documented in this encounter Miscellaneous Notes * Assessment & Plan Note - Edilma Chang MD - 06/07/2022 12:06 PM CDT Associated Problem(s): Morbid obesity with BMI of 45.0-49.9, adult (CMS/HCC) (HCC) (Resolved 10/13/2024) PT/OT consulted. * Subjective & Objective - Edilma Chang MD - 06/07/2022 12:00 PM CDT Daily Progress Note Division of Hospital Medicine Name: Ayanna Gibbs Today: June 07, 2022 : 1950 Age: 72 y.o. female Admit: 05/27/2022 Bed: [id number] Subjective Chief complaint: Shortness of breath Interval History: NAEON. Had dry cough last night, none this morning. Breathing is stable. Yesterday K 4.2 and creat improved to 1.44, while holding lasix. Pt feels LE edema is not existent, but is worried because she has gained 3lbs over the last few days. (Standing weight). Going to SNF today. Objective Medications: Scheduled: apixaban, 5 mg, oral, Q12H DELFIN cholecalciferol, 1,000 Units, oral, Daily cholestyramine-aspartame, 1 packet, oral, Daily - 0600 cyanocobalamin, 2,000 mcg, oral, Daily hydrOXYchloroQUINE, 200 mg, oral, BID levothyroxine, 112 mcg, oral, Daily linezolid, 600 mg, oral, BID pravastatin, 80 mg, oral, Daily predniSONE, 15 mg, oral, QAM [Held by Provider] sertraline, 50 mg, oral, Daily [Held by Provider] trimethoprim, 100 mg, oral, Nightly umeclidinium-vilanteroL, 1 puff, inhalation, Daily Infusions: PRN: acetaminophen albuterol HFA polyethylene glycol ramelteon traMADoL Vitals: 24hr Min/Max: Temp Min: 36.4 ??C (97.5 ??F) Max: 36.7 ??C (98.1 ??F) Pulse Min: 52 Max: 80 BP Min: 110/77 Max: 142/69 Resp Min: 16 Max: 17 SpO2 Min: 98 % Max: 100 % Vitals: 06/07/22 0846 BP: 142/69 Pulse: 80 Resp: 16 Temp: 36.5 ??C (97.7 ??F) SpO2: 100% Intake/Output Summary (Last 24 hours) at 06/07/2022 1200 Last data filed at 06/07/2022 0500 Gross per 24 hour Intake 100 ml Output 1800 ml Net -1700 ml Physical Exam Vitals reviewed. Constitutional: General: She is not in acute distress. Appearance: She is obese. She is not ill-appearing, toxic-appearing or diaphoretic. HENT: Head: Normocephalic and atraumatic. Right Ear: External ear normal. Left Ear: External ear normal. Eyes: General: No scleral icterus. Conjunctiva/sclera: Conjunctivae normal. Cardiovascular: Rate and Rhythm: Normal rate. Rhythm irregular. Pulses: Normal pulses. Heart sounds: Normal heart sounds. Pulmonary: Effort: Pulmonary effort is normal. No respiratory distress. Breath sounds: Normal breath sounds. Abdominal: General: Abdomen is flat. Bowel sounds are normal. There is no distension. Palpations: Abdomen is soft. Tenderness: There is no abdominal tenderness. Musculoskeletal: General: No swelling or tenderness. Right lower leg: No edema. Left lower leg: No edema. Skin: General: Skin is warm and dry. Neurological: General: No focal deficit present. Mental Status: She is alert and oriented to person, place, and time. Psychiatric: Mood and Affect: Mood normal. Behavior: Behavior normal. Thought Content: Thought content normal. Judgment: Judgment normal. Lab/Diagnostic Review: Recent Results (from the past 36 hour(s)) ECG 12 lead Collection Time: 06/06/22 7:22 AM Result Value Ref Range Ventricular Rate EKG/Min 62 BPM Atrial Rate 58 BPM QRS-Interval (MSEC) 122 ms QT-Interval (MSEC) 460 ms QTc 466 ms R Volcano -20 degrees T Volcano 74 degrees Diagnosis Atrial fibrillation Left ventricular hypertrophy with QRS widening Nonspecific ST abnormality Abnormal ECG No previous ECGs available POCT glucose Collection Time: 06/06/22 8:14 AM Result Value Ref Range Glucose, POC 72 70 - 199 mg/dL Basic metabolic panel Collection Time: 06/06/22 12:46 PM Result Value Ref Range Sodium 140 135 - 145 mmol/L Potassium, pl 4.2 3.3 - 4.9 mmol/L Chloride 103 97 - 110 mmol/L CO2 31 22 - 32 mmol/L Anion gap 6 2 - 15 mmol/L BUN 31 (H) 8 - 25 mg/dL Creatinine 1.44 (H) 0.60 - 1.10 mg/dL Glucose 118 70 - 199 mg/dL Calcium 10.0 8.5 - 10.3 mg/dL eGFR Collection Time: 06/06/22 12:46 PM Result Value Ref Range eGFR 38 (L) 90 - 130 mL/min/1.73 m2 I have reviewed the laboratory results. Imaging Results: ECG 12 lead Gene Nails MD 05/27/2022 3:56 PM ECG [...] ED XR Chest Pa Lateral 2 Vw Narrative: EXAMINATION: 2 view chest radiograph Impression: [...] it. Electronically signed by: Sam Salas M.D. Telemetry I have independently reviewed and interpreted telemetry, which showed Atrial fibrillation and slow ventricular response. Intermittent pauses * Plan of Care - Alexandra Mason - 06/07/2022 7:29 AM CDT Goals: Clinical Goals for the Shift: vital signs, labs, I and O, medication, comfort and safety, repositioning Summary: Patient AOx4, on oxygen via nasal cannula at 2lpm. Vital signs taken and charted, due medications given. Amaya care done, monitored I and O. Patient able to transfer from bed to commode with minimal assistance. Monitored patient accordingly, comfort and safety implemented. Problem: Activity: Goal: Mobility will improve Outcome: Progressing Problem: Lack of Knowledge: Goal: Understanding of ways to prevent future skin breakdown will improve Outcome: Progressing Goal: Ability to identify appropriate dietary choices will improve Outcome: Progressing Problem: Nutritional: Goal: Dietary intake will improve Outcome: Progressing Goal: Ability to maintain a balanced intake and output will improve Outcome: Progressing Problem: Skin Integrity: Goal: Risk for impaired skin integrity will decrease Outcome: Progressing Goal: Ability to demonstrate warm and dry skin will improve Outcome: Progressing Goal: Circulation will improve to fullest extent possible Outcome: Progressing Problem: Activity: Goal: Risk for activity intolerance will decrease Outcome: Progressing Problem: Lack of Knowledge: Goal: Knowledge of diagnostic tests will improve Outcome: Progressing Goal: Knowledge of disease or condition will improve Outcome: Progressing Goal: Knowledge of safety precautions will improve Outcome: Progressing Goal: Knowledge of the prescribed therapeutic regimen will improve Outcome: Progressing Problem: Health Behavior: Goal: Ability to state signs and symptoms to report to health care provider will improve Outcome: Progressing Problem: Physical Regulation: Goal: Ability to maintain clinical measurements within normal limits will improve Outcome: Progressing Problem: Infection Risk: Goal: Will remain free from infection Outcome: Progressing Problem: Safety: Goal: Ability to remain free from injury will improve Outcome: Progressing Goal: Will remain free from falls Outcome: Progressing Problem: Self-Care: Goal: Ability to participate in self-care as condition permits will improve Outcome: Progressing Problem: Sensory: Goal: Pain level will decrease Outcome: Progressing Goal: Ability to develop a pain control plan will improve Outcome: Progressing Problem: Skin Integrity: Goal: Risk for impaired skin integrity will decrease Outcome: Progressing Problem: Tissue Perfusion: Goal: Risk factors for ineffective tissue perfusion will decrease Outcome: Progressing Problem: Lack of Knowledge: Goal: Knowledge of risk factors and measures for prevention of condition will improve Outcome: Progressing Problem: Coping: Goal: Psychosocial and spiritual needs will be supported Outcome: Progressing Problem: Physical Regulation: Goal: Spread of further infection will be prevented Outcome: Progressing Problem: Respiratory: Goal: Will maintain a patent airway Outcome: Progressing Goal: Complications related to the disease process, condition or treatment will be avoided or minimized Outcome: Progressing Problem: Lack of Knowledge: Goal: Ability to develop a pain control plan will improve Outcome: Progressing Goal: Ability to identify pain intensity on a pain scale and rate it consistently will improve Outcome: Progressing Goal: Ability to notify healthcare provider of pain before it becomes unmanageable or unbearable will improve Outcome: Progressing Problem: Medication: Goal: Satisfaction with pain management regimen will improve Outcome: Progressing Problem: Sensory: Goal: Ability to identify factors that increase the pain will improve Outcome: Progressing Goal: Pain level will decrease Outcome: Progressing Problem: Lack of Knowledge: Goal: Ability to state ways to decrease the risk of falls will improve Outcome: Progressing Problem: Safety: Goal: Will remain free from falls Outcome: Progressing Goal: Will remain free from injury from falls Outcome: Progressing Goal: Will remain free from falls and injury in home environment Outcome: Progressing Problem: Health Behavior: Goal: Understanding of discharge needs will improve Outcome: Progressing * Plan of Care - Daphney Bourne, JUAN - 06/07/2022 3:40 AM CDT Patient wore home NPPV last night. Respiratory will continue to monitor. * Assessment & Plan Note - Edilma Chang MD - 06/06/2022 11:05 AM CDT Associated Problem(s): Hyperkalemia (Resolved 06/07/2022) K 5.6 on 06/06, likely in setting of MIKE K trend: 4.4 -> 4.9 -> 5.1 -> 5.6 -> normalized after lokelma. No ECG changes 06/06 AM Scheduled lokelma TID x 1 day * Plan of Care - Missy Davidson RN - 06/06/2022 9:47 AM CDT Goals: Clinical Goals for the Shift: VS, I&Os, labs, mobility, safety, comfot Summary: Patient's VS stable. I&Os recorded. Patient's potassium from previous night labs was 5.6, around 0740 MD Chang and Edi notified, see new orders. ECG completed. Lokelma given. Potassiumrecheck was 4.2 around 1400. PRN pain medication given with full relief for headache. Patient declined to sit in chair today. Incentive spirometer at bedside. Problem: Activity: Goal: Mobility will improve Outcome: Progressing Problem: Lack of Knowledge: Goal: Understanding of ways to prevent future skin breakdown will improve Outcome: Progressing Problem: Nutritional: Goal: Dietary intake will improve Outcome: Progressing Problem: Skin Integrity: Goal: Risk for impaired skin integrity will decrease Outcome: Progressing Goal: Ability to demonstrate warm and dry skin will improve Outcome: Progressing Problem: Lack of Knowledge: Goal: Knowledge of disease or condition will improve Outcome: Progressing Goal: Knowledge of safety precautions will improve Outcome: Progressing Goal: Knowledge of the prescribed therapeutic regimen will improve Outcome: Progressing * Plan of Care - Ivanna Cyr RN - 06/06/2022 4:09 AM CDT Goals: Clinical Goals for the Shift: Monitor vitals and labs as ordered. Medicatins. Safety. Up to chair. Summary: Problem: Activity: Goal: Mobility will improve Outcome: Progressing Problem: Lack of Knowledge: Goal: Understanding of ways to prevent future skin breakdown will improve Outcome: Progressing Goal: Ability to identify appropriate dietary choices will improve Outcome: Progressing Problem: Nutritional: Goal: Dietary intake will improve Outcome: Progressing Goal: Ability to maintain a balanced intake and output will improve Outcome: Progressing Problem: Skin Integrity: Goal: Risk for impaired skin integrity will decrease Outcome: Progressing Goal: Ability to demonstrate warm and dry skin will improve Outcome: Progressing Goal: Circulation will improve to fullest extent possible Outcome: Progressing Problem: Activity: Goal: Risk for activity intolerance will decrease Outcome: Progressing Problem: Lack of Knowledge: Goal: Knowledge of diagnostic tests will improve Outcome: Progressing Goal: Knowledge of disease or condition will improve Outcome: Progressing Goal: Knowledge of safety precautions will improve Outcome: Progressing Goal: Knowledge of the prescribed therapeutic regimen will improve Outcome: Progressing Problem: Health Behavior: Goal: Ability to state signs and symptoms to report to health care provider will improve Outcome: Progressing Problem: Physical Regulation: Goal: Ability to maintain clinical measurements within normal limits will improve Outcome: Progressing Problem: Infection Risk: Goal: Will remain free from infection Outcome: Progressing Problem: Safety: Goal: Ability to remain free from injury will improve Outcome: Progressing Goal: Will remain free from falls Outcome: Progressing Problem: Self-Care: Goal: Ability to participate in self-care as condition permits will improve Outcome: Progressing Problem: Sensory: Goal: Pain level will decrease Outcome: Progressing Goal: Ability to develop a pain control plan will improve Outcome: Progressing Problem: Skin Integrity: Goal: Risk for impaired skin integrity will decrease Outcome: Progressing Problem: Tissue Perfusion: Goal: Risk factors for ineffective tissue perfusion will decrease Outcome: Progressing Problem: Lack of Knowledge: Goal: Knowledge of risk factors and measures for prevention of condition will improve Outcome: Progressing Problem: Coping: Goal: Psychosocial and spiritual needs will be supported Outcome: Progressing Problem: Physical Regulation: Goal: Spread of further infection will be prevented Outcome: Progressing Problem: Respiratory: Goal: Will maintain a patent airway Outcome: Progressing Goal: Complications related to the disease process, condition or treatment will be avoided or minimized Outcome: Progressing Problem: Lack of Knowledge: Goal: Ability to develop a pain control plan will improve Outcome: Progressing Goal: Ability to identify pain intensity on a pain scale and rate it consistently will improve Outcome: Progressing Goal: Ability to notify healthcare provider of pain before it becomes unmanageable or unbearable will improve Outcome: Progressing Problem: Medication: Goal: Satisfaction with pain management regimen will improve Outcome: Progressing Problem: Sensory: Goal: Ability to identify factors that increase the pain will improve Outcome: Progressing Goal: Pain level will decrease Outcome: Progressing Problem: Lack of Knowledge: Goal: Ability to state ways to decrease the risk of falls will improve Outcome: Progressing Problem: Safety: Goal: Will remain free from falls Outcome: Progressing Goal: Will remain free from injury from falls Outcome: Progressing Goal: Will remain free from falls and injury in home environment Outcome: Progressing Problem: Health Behavior: Goal: Understanding of discharge needs will improve Outcome: Progressing Patient remains on covid precaution. Patient is compliant with her care. No fall this shift. Patient denies pain or discomfort. Skin remains intact with no break down. * Assessment & Plan Note - Edilma Chang MD - 06/05/2022 1:44 PM CDT Associated Problem(s): MIKE (acute kidney injury) (HCC) (Resolved 06/07/2022) Baseline Cr ~1.3, increased to 1.8 in setting of diuresis Currently holding home furosemide. Had MIKE which improved with holding lasix. Hyperkalemia normalized on next check. * Assessment & Plan Note - Silverio Daley MD - 06/05/2022 1:44 PM CDT Associated Problem(s): Hypothyroidism Continue levothyroxine. * Assessment & Plan Note - Silverio Daley MD - 06/05/2022 1:43 PM CDT Associated Problem(s): UTI (urinary tract infection) due to Enterococcus (Resolved 06/07/2022) Pt with Hx chronic UTis, on trimethoprim chronically->follows outpatient with Urology. UA with 3+ leukocytes, 3+ blood, 2+ bacteria, RBCs 11-20, >50 WBCs. Patient report urinary frequency. Urine culture Greater than or equal to 100,000 colonies/mL of Enterococcus faecium - Linezolid 600mg po BID, plan 7 days (last dose 06/07). Holding Zoloft while on Linezolid (avoid serotonin syndrome) * Assessment & Plan Note - Silverio Daley MD - 06/05/2022 1:42 PM CDT Associated Problem(s): COVID-19 (Resolved 07/03/2022) Symptomatic with lethargy, leg swelling, and cough. Tested + on 05/22/22 at [facility] (external result entered and pic of result in media tab). S/p remdesivir x2 days for high risk->stoppedfor bradycardia/pauses w/HR 30-40, though these have persisted days later - Per IP, pt needs 20 full days COVID isolation before quarantine can be lifted (immunosuppressed on abatacept). Isolation can be lifted 06/12 -stable for discharge if SNF has COVID bed, or improves w/PT enough to safely go home, otherwise toremain inpatient until isolation lifted. * Assessment & Plan Note - Silverio Daley MD - 06/05/2022 1:40 PM CDT Associated Problem(s): Recurrent major depressive disorder, in partial remission (HCC) Holding home SSRI in setting of linezolid use, okay to resume following completion of antibiotic course * Assessment & Plan Note - Silverio Daley MD - 06/05/2022 1:40 PM CDT Associated Problem(s): Hyperlipidemia, unspecified c/w pravastatin * Assessment & Plan Note - Edilma Chang MD - 06/05/2022 1:36 PM CDT Associated Problem(s): Acute on chronic heart failure (CMS/HCC) (HCC) (Resolved 06/07/2022) 2/2 dietary indiscretion vs COVID vs bacterial [...] EF 55-60% -strict I/o, daily standing weights * Assessment & Plan Note - Silverio Daley MD - 06/05/2022 1:35 PM CDT Associated Problem(s): Rheumatoid arthritis (HCC) Home meds: prednisone, plaquenil, abatacept - Hold abatacept in setting of acute illness -> okay to resume upon DC - Cont home plaquenil and prednisone * Assessment & Plan Note - Edilma Chang MD - 06/05/2022 1:35 PM CDT Associated Problem(s): Chronic respiratory failure with hypoxia (CMS/HCC) ([facility]) 2/2 ILD, STARR. Baseline 2L at rest, 4L w/ exertion -Continuous pulse ox while with COVID. -cont home prednisone, holding abetacept while acutely ill -> per rheum okay to restart as an outpatient -cont CPAP QHS on home machine. * Assessment & Plan Note - Edilma Chang MD - 06/05/2022 1:32 PM CDT Associated Problem(s): Longstanding persistent atrial fibrillation (CMS/HCC) ([facility]) History of chronic A.fib prior to admission. Home regimen = metoprolol XL 125, eliquis. 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 * Assessment & Plan Note - Edilma Chang MD - 06/05/2022 1:31 PM CDT Associated Problem(s): ILD (interstitial lung disease) (CMS/HCC) (HCC) No increased oxygen requirement or symptoms of dyspnea. Baseline 2L at rest, 4L w/ exertion. Home meds = pred 15, abetacept; follows with Dr. Bauman - discussed with Rheum for timing of abetacept resumption, ok to resume on discharge. - Continue pred 15 mg * Plan of Care - Ileana Giordano RN - 06/05/2022 8:19 AM CDT Goals: Clinical Goals for the Shift: Monitor vitals and labs as ordered. Medicatins. Safety. Up to chair. Summary: Problem: Activity: Goal: Mobility will improve Outcome: Progressing Problem: Lack of Knowledge: Goal: Understanding of ways to prevent future skin breakdown will improve Outcome: Progressing Goal: Ability to identify appropriate dietary choices will improve Outcome: Progressing Problem: Nutritional: Goal: Dietary intake will improve Outcome: Progressing Goal: Ability to maintain a balanced intake and output will improve Outcome: Progressing Problem: Skin Integrity: Goal: Risk for impaired skin integrity will decrease Outcome: Progressing Goal: Ability to demonstrate warm and dry skin will improve Outcome: Progressing Goal: Circulation will improve to fullest extent possible Outcome: Progressing Problem: Activity: Goal: Risk for activity intolerance will decrease Outcome: Progressing Problem: Lack of Knowledge: Goal: Knowledge of diagnostic tests will improve Outcome: Progressing Goal: Knowledge of disease or condition will improve Outcome: Progressing Goal: Knowledge of safety precautions will improve Outcome: Progressing Goal: Knowledge of the prescribed therapeutic regimen will improve Outcome: Progressing Problem: Physical Regulation: Goal: Ability to maintain clinical measurements within normal limits will improve Outcome: Progressing Problem: Infection Risk: Goal: Will remain free from infection Outcome: Progressing Problem: Safety: Goal: Ability to remain free from injury will improve Outcome: Progressing Goal: Will remain free from falls Outcome: Progressing Problem: Self-Care: Goal: Ability to participate in self-care as condition permits will improve Outcome: Progressing * Plan of Care - Ivanna Cyr RN - 06/04/2022 11:04 PM CDT Goals: Clinical Goals for the Shift: Monitor vitals and labs as ordered. Medicatins. Safety. Up to chair. Summary: Problem: Activity: Goal: Mobility will improve Outcome: Progressing Problem: Lack of Knowledge: Goal: Understanding of ways to prevent future skin breakdown will improve Outcome: Progressing Goal: Ability to identify appropriate dietary choices will improve Outcome: Progressing Problem: Nutritional: Goal: Dietary intake will improve Outcome: Progressing Goal: Ability to maintain a balanced intake and output will improve Outcome: Progressing Problem: Skin Integrity: Goal: Risk for impaired skin integrity will decrease Outcome: Progressing Goal: Ability to demonstrate warm and dry skin will improve Outcome: Progressing Goal: Circulation will improve to fullest extent possible Outcome: Progressing Problem: Activity: Goal: Risk for activity intolerance will decrease Outcome: Progressing Problem: Lack of Knowledge: Goal: Knowledge of diagnostic tests will improve Outcome: Progressing Goal: Knowledge of disease or condition will improve Outcome: Progressing Goal: Knowledge of safety precautions will improve Outcome: Progressing Goal: Knowledge of the prescribed therapeutic regimen will improve Outcome: Progressing Problem: Health Behavior: Goal: Ability to state signs and symptoms to report to health care provider will improve Outcome: Progressing Problem: Physical Regulation: Goal: Ability to maintain clinical measurements within normal limits will improve Outcome: Progressing Problem: Infection Risk: Goal: Will remain free from infection Outcome: Progressing Problem: Safety: Goal: Ability to remain free from injury will improve Outcome: Progressing Goal: Will remain free from falls Outcome: Progressing Problem: Self-Care: Goal: Ability to participate in self-care as condition permits will improve Outcome: Progressing Problem: Sensory: Goal: Pain level will decrease Outcome: Progressing Goal: Ability to develop a pain control plan will improve Outcome: Progressing Problem: Skin Integrity: Goal: Risk for impaired skin integrity will decrease Outcome: Progressing Problem: Tissue Perfusion: Goal: Risk factors for ineffective tissue perfusion will decrease Outcome: Progressing Problem: Lack of Knowledge: Goal: Knowledge of risk factors and measures for prevention of condition will improve Outcome: Progressing Problem: Coping: Goal: Psychosocial and spiritual needs will be supported Outcome: Progressing Problem: Physical Regulation: Goal: Spread of further infection will be prevented Outcome: Progressing Problem: Respiratory: Goal: Will maintain a patent airway Outcome: Progressing Goal: Complications related to the disease process, condition or treatment will be avoided or minimized Outcome: Progressing Problem: Lack of Knowledge: Goal: Ability to develop a pain control plan will improve Outcome: Progressing Goal: Ability to identify pain intensity on a pain scale and rate it consistently will improve Outcome: Progressing Goal: Ability to notify healthcare provider of pain before it becomes unmanageable or unbearable will improve Outcome: Progressing Problem: Medication: Goal: Satisfaction with pain management regimen will improve Outcome: Progressing Problem: Sensory: Goal: Ability to identify factors that increase the pain will improve Outcome: Progressing Goal: Pain level will decrease Outcome: Progressing Problem: Lack of Knowledge: Goal: Ability to state ways to decrease the risk of falls will improve Outcome: Progressing Problem: Safety: Goal: Will remain free from falls Outcome: Progressing Goal: Will remain free from injury from falls Outcome: Progressing Goal: Will remain free from falls and injury in home environment Outcome: Progressing Problem: Health Behavior: Goal: Understanding of discharge needs will improve Outcome: Progressing Patient had a bm this shift, which is soft and brown. Said that she is eating a lot of vegetable that she should not be eating. She remains compliant with her care. Patient requested for Tylenol, said she is not in pain but that it relaxes her at night. Patient remains on 2L oxygen. No distress at this time. * Plan of Care - Tawana Farmer RN - 06/04/2022 2:54 PM CDT Goals: Clinical Goals for the Shift: Monitor vitals and labs as ordered. Medicatins. Safety. Up to chair. Summary: Vitals and labs monitored as ordered. Pt taking meds as ordered. Pt is up with 1 assist; uses call light for assistance. Up to chair for several hours today. * Plan of Care - Hugo Reyna RN - 06/04/2022 2:20 PM CDT SNF referrals sent. Related to ILD and immunosuppression, patient will require isolation until 06/12. [facility] can accept tomorrow. [facility] can potentially accept tomorr or Saturday. CM in communication with patient's Brian ADORNO. * Assessment & Plan Note - Tamera Garza MD - 06/04/2022 1:17 PM CDT Associated Problem(s): MIKE (acute kidney injury) (HCC) (Resolved 06/07/2022) Baseline Cr ~1.3, now up to 1.8 in the setting of diuresis. Currently holding home furosemide. Continue to trend Cr. Monitor daily weight and volume status * Assessment & Plan Note - Ronnie Ornelas MD PhD - 06/04/2022 1:16 PM CDTAssociated Problem(s): Hypothyroidism Continue levothyroxine. * Assessment & Plan Note - Ronnie Ornelas MD PhD - 06/04/2022 1:15 PM CDTAssociated Problem(s): UTI (urinary tract infection) due to Enterococcus (Resolved 06/07/2022) -pt with Hx chronic UTis, on trimethoprim chronically->follows outpatient with Urology -UA with 3+ leukocytes, 3+ blood, 2+ bacteria, RBCs 11-20, >50 WBCs. Patient report urinary frequency -WBC ~10, remains afebrile -Urine culture Greater than or equal to 100,000 colonies/mL of Enterococcus faecium -Sensitivities noted -Day #4 Linezolid 600mg po BID, plan 7 days. Holding Zoloft while on Linezolid (avoid serotonin syndrome) * Assessment & Plan Note - Ronnie Ornelas MD PhD - 06/04/2022 1:15 PM CDTAssociated Problem(s): Rib fracture (Resolved 07/03/2022) Tramadol prn. miralax daily prn. 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 Completed 7 total days of antibiotics (Azith, CTX) on 05/29. -pulm status at baseline. * Assessment & Plan Note - Ronnie Ornelas MD PhD - 06/04/2022 1:14 PM CDTAssociated Problem(s): COVID-19 (Resolved 07/03/2022) Symptomatic with lethargy, leg swelling, and cough. -Tested + on 05/22/22 at [facility] (external result entered and pic of result [...] w/PT enough to safely go home, otherwise toremain inpatient until isolation lifted. * Assessment & Plan Note - Ronnie Ornelas MD PhD - 06/04/2022 1:14 PM CDTAssociated Problem(s): Hyperlipidemia, unspecified c/w pravastatin * Assessment & Plan Note - Ronnie Ornelas MD PhD - 06/04/2022 1:14 PM CDTAssociated Problem(s): Rheumatoid arthritis (HCC) -Holding abatacept during acute illness. Continuing plaquenil and prednisone -will coordinate with rheumatology prior to discharge re: abatacept * Assessment & Plan Note - Ronnie Ornelas MD PhD - 06/04/2022 1:13 PM CDTAssociated Problem(s): Chronic respiratory failure with hypoxia (CMS/HCC) (HCC) -2/2 ILD, STARR -Continuous pulse ox while with COVID. -Remains at baseline 2L at rest, 4L with exertion. -cont home prednisone, holding abetacept while acutely ill. -cont CPAP at night. * Assessment & Plan Note - Tamera Garza MD - 06/04/2022 1:12 PM CDT Associated Problem(s): ILD (interstitial lung disease) (CMS/HCC) (HCC) No increased oxygen requirement or symptoms of dyspnea. c/w prednisone 15mg. Hold abetacept. Will need to coordinate timing of resumption with rheumatology (Dr. Sandra HILLMAN) closer to discharge. * Assessment & Plan Note - Ronnie Ornelas MD PhD - 06/04/2022 1:12 PM CDTAssociated Problem(s): STARR on CPAP CPAP at night-home unit at bedside, brought in by daughter Encourage nightly use. * Assessment & Plan Note - Tamera Garza MD - 06/04/2022 1:11 PM CDT Associated Problem(s): Longstanding persistent atrial fibrillation (CMS/HCC) ([facility]) -Chronic, on home metoprolol (now holding for persistent bradycardia/pauses) and eliquis. Patient reports history of RVR at home with recent dose escalation to 125 mg XL -CTM on tele given bradycardia/pauses. * Assessment & Plan Note - Tamera Garza MD - 06/04/2022 1:10 PM CDT Associated Problem(s): Acute on chronic heart failure (CMS/HCC) (HCC) (Resolved 06/07/2022) 2/2 dietary indiscretion vs COVID vs bacterial [...] weights (overall down ~4 kg since admit) * Subjective & Objective - Tamera Garza MD - 06/04/2022 1:08 PM CDT Daily Progress Note Division of Hospital Medicine Name: Ayanna Gibbs Today: June 04, 2022 : 1950 Age: 72 y.o. female Admit: 05/27/2022 Bed: [id number] Subjective Chief complaint: Shortness of breath Interval History: NAEON. No complaints today. Breathing is stable. Telemetry continues to show intermittent bouts of slow AF including a ~3 second pause. Cr remains ~1.8; diuretics held again. Plan SNF once placement found +/- COVID isolation completed. Objective Medications: Scheduled: apixaban, 5 mg, oral, Q12H DELFIN cholecalciferol, 1,000 Units, oral, Daily cholestyramine-aspartame, 1 packet, oral, Daily - 0600 cyanocobalamin, 2,000 mcg, oral, Daily [Held by Provider] furosemide, 40 mg, oral, Daily hydrOXYchloroQUINE, 200 mg, oral, BID levothyroxine, 112 mcg, oral, Daily linezolid, 600 mg, oral, BID [Held by Provider] metoprolol XL, 50 mg, oral, Daily pravastatin, 80 mg, oral, Daily predniSONE, 15 mg, oral, QAM [Held by Provider] sertraline, 50 mg, oral, Daily trimethoprim, 100 mg, oral, Nightly umeclidinium-vilanteroL, 1 puff, inhalation, Daily Infusions: PRN: acetaminophen albuterol HFA polyethylene glycol ramelteon traMADoL Vitals: 24hr Min/Max: Temp Min: 36.3 ??C (97.3 ??F) Max: 36.9 ??C (98.4 ??F) Pulse Min: 54 Max: 74 BP Min: 114/70 Max: 136/59 Resp Min: 16 Max: 18 SpO2 Min: 97 % Max: 99 % Vitals: 06/04/22 1105 BP: 118/65 Pulse: 54 Resp: 16 Temp: 36.3 ??C (97.3 ??F) SpO2: 98% Intake/Output Summary (Last 24 hours) at 06/04/2022 1308 Last data filed at 06/04/2022 1130 Gross per 24 hour Intake 700 ml Output 1650 ml Net -950 ml Physical Exam Constitutional: NAD, well developed, obese Eyes: PERRL, EOMI, anicteric ENT: NCAT, oropharynx normal, moist mucus membranes Lungs: CTA, unlabored at rest, NC in place Cardiovascular: Irreg, syd, normal S1 and S2, no murmurs, no JVD appreciated GI: Soft, non-tender, non-distended, no organomegaly Skin: No new rashes, lesions or bruises on visible skin Extremities: Trace pretibial edema bilat, no cyanosis Neurologic: AOx4, CNII-XII intact, normal strength and sensation Psychiatric: Normal affect and mood, euthymic Lab/Diagnostic Review: Recent Results (from the past 36 hour(s)) Basic metabolic panel Collection Time: 06/03/22 9:16 PM Result Value Ref Range Sodium 138 135 - 145 mmol/L Potassium, pl 4.9 3.3 - 4.9 mmol/L Chloride 101 97 - 110 mmol/L CO2 30 22 - 32 mmol/L Anion gap 7 2 - 15 mmol/L BUN 41 (H) 8 - 25 mg/dL Creatinine 1.81 (H) 0.60 - 1.10 mg/dL Glucose 137 70 - 199 mg/dL Calcium 9.7 8.5 - 10.3 mg/dL Magnesium Collection Time: 06/03/22 9:16 PM Result Value Ref Range Magnesium 1.8 1.4 - 2.5 mg/dL eGFR Collection Time: 06/03/22 9:16 PM Result Value Ref Range eGFR 29 (L) 90 - 130 mL/min/1.73 m2 I have reviewed the laboratory results. Imaging Results: ECG 12 lead Gene Nails MD 05/27/2022 3:56 PM ECG [...] ED XR Chest Pa Lateral 2 Vw Narrative: EXAMINATION: 2 view chest radiograph Impression: [...] it. Electronically signed by: Sam Salas M.D. Telemetry I have independently reviewed and interpreted telemetry, which showed Atrial fibrillation and slow ventricular response. Intermittent pauses * Plan of Care - Helene Cuevas RN - 06/04/2022 6:24 AM CDT Goals: Clinical Goals for the Shift: remain free from injury; monitor vitals; obtain labs; monitor and treat pain; and rest Summary: Ayanna has remained free from injury and rested well throughout this shift. Her vitals were monitored as ordered and remained stable. Her labs were obtained with no further treatments required. Ayanna pain was monitored and treated with PRN pain medications, she is reporting relief at this time. She is currently resting comfortably in bed, denies pain, shortness of breath, and s/s of distress or discomfort. Problem: Activity: Goal: Mobility will improve Outcome: Progressing Problem: Lack of Knowledge: Goal: Understanding of ways to prevent future skin breakdown will improve Outcome: Progressing Goal: Ability to identify appropriate dietary choices will improve Outcome: Progressing Problem: Nutritional: Goal: Dietary intake will improve Outcome: Progressing Goal: Ability to maintain a balanced intake and output will improve Outcome: Progressing Problem: Skin Integrity: Goal: Risk for impaired skin integrity will decrease Outcome: Progressing Goal: Ability to demonstrate warm and dry skin will improve Outcome: Progressing Goal: Circulation will improve to fullest extent possible Outcome: Progressing Problem: Activity: Goal: Risk for activity intolerance will decrease Outcome: Progressing Problem: Lack of Knowledge: Goal: Knowledge of diagnostic tests will improve Outcome: Progressing Goal: Knowledge of disease or condition will improve Outcome: Progressing Goal: Knowledge of safety precautions will improve Outcome: Progressing Goal: Knowledge of the prescribed therapeutic regimen will improve Outcome: Progressing Problem: Health Behavior: Goal: Ability to state signs and symptoms to report to health care provider will improve Outcome: Progressing Problem: Physical Regulation: Goal: Ability to maintain clinical measurements within normal limits will improve Outcome: Progressing Problem: Infection Risk: Goal: Will remain free from infection Outcome: Progressing Problem: Safety: Goal: Ability to remain free from injury will improve Outcome: Progressing Goal: Will remain free from falls Outcome: Progressing Problem: Self-Care: Goal: Ability to participate in self-care as condition permits will improve Outcome: Progressing Problem: Sensory: Goal: Pain level will decrease Outcome: Progressing Goal: Ability to develop a pain control plan will improve Outcome: Progressing Problem: Skin Integrity: Goal: Risk for impaired skin integrity will decrease Outcome: Progressing Problem: Tissue Perfusion: Goal: Risk factors for ineffective tissue perfusion will decrease Outcome: Progressing Problem: Lack of Knowledge: Goal: Knowledge of risk factors and measures for prevention of condition will improve Outcome: Progressing Problem: Coping: Goal: Psychosocial and spiritual needs will be supported Outcome: Progressing Problem: Physical Regulation: Goal: Spread of further infection will be prevented Outcome: Progressing Problem: Respiratory: Goal: Will maintain a patent airway Outcome: Progressing Goal: Complications related to the disease process, condition or treatment will be avoided or minimized Outcome: Progressing Problem: Lack of Knowledge: Goal: Ability to develop a pain control plan will improve Outcome: Progressing Goal: Ability to identify pain intensity on a pain scale and rate it consistently will improve Outcome: Progressing Goal: Ability to notify healthcare provider of pain before it becomes unmanageable or unbearable will improve Outcome: Progressing Problem: Medication: Goal: Satisfaction with pain management regimen will improve Outcome: Progressing Problem: Sensory: Goal: Ability to identify factors that increase the pain will improve Outcome: Progressing Goal: Pain level will decrease Outcome: Progressing Problem: Lack of Knowledge: Goal: Ability to state ways to decrease the risk of falls will improve Outcome: Progressing Problem: Safety: Goal: Will remain free from falls Outcome: Progressing Goal: Will remain free from injury from falls Outcome: Progressing Goal: Will remain free from falls and injury in home environment Outcome: Progressing Problem: Health Behavior: Goal: Understanding of discharge needs will improve Outcome: Progressing * Plan of Care - Kellen Alcaraz RRT - 06/04/2022 4:55 AM CDT Impression: Pt. Ordered on nocturnal NPPV via home unit. Plan: continue use of NPPV as ordered. * Subjective & Objective - Joann Lyon NP - 06/03/2022 12:11 PM CDT Daily Progress Note Division of Hospital Medicine Name: Ayanna Gibbs Today: June 03, 2022 : 1950 Age: 72 y.o. female Admit: 05/27/2022 Bed: [id number] Subjective Chief complaint: Shortness of breath Interval History: Slept well last night on CPAP. Motivated to get Oob with nursing today. Remains medically stable for discharge. Plan SNF once placement found +/- COVID isolation completed. Objective Medications: Scheduled: apixaban, 5 mg, oral, Q12H DELFIN cholecalciferol, 1,000 Units, oral, Daily cholestyramine-aspartame, 1 packet, oral, Daily - 0600 cyanocobalamin, 2,000 mcg, oral, Daily [START ON 06/04/2022] furosemide, 40 mg, oral, Daily hydrOXYchloroQUINE, 200 mg, oral, BID levothyroxine, 112 mcg, oral, Daily linezolid, 600 mg, oral, BID [START ON 06/04/2022] metoprolol XL, 50 mg, oral, Daily pravastatin, 80 mg, oral, Daily predniSONE, 15 mg, oral, QAM [Held by Provider] sertraline, 50 mg, oral, Daily trimethoprim, 100 mg, oral, Nightly umeclidinium-vilanteroL, 1 puff, inhalation, Daily Infusions: PRN: acetaminophen albuterol HFA polyethylene glycol ramelteon traMADoL Vitals: 24hr Min/Max: Temp Min: 36.3 ??C (97.4 ??F) Max: 36.7 ??C (98.1 ??F) Pulse Min: 60 Max: 66 BP Min: 113/65 Max: 127/61 Resp Min: 18 Max: 18 SpO2 Min: 96 % Max: 100 % Most Recent: Vitals: 06/03/22 0730 BP: 117/65 Pulse: 66 Resp: 18 Temp: 36.6 ??C (97.9 ??F) SpO2: 100% 2L Intake/Output Summary (Last 24 hours) at 06/03/2022 1211 Last data filed at 06/03/2022 0425 Gross per 24 hour Intake 120 ml Output 550 ml Net -430 ml Physical Exam Constitutional: NAD, well developed, obese Eyes: PERRL, EOMI, anicteric ENT: NCAT, oropharynx normal, moist mucus membranes Lungs: CTA, unlabored at rest. Cardiovascular: Irreg, syd, normal S1 and S2, no murmurs, no JVD appreciated GI: Soft, non-tender, non-distended, bowel sounds +, no organomegaly Skin: No new rashes, lesions or bruises on visible skin Extremities: Trace pretibial edema bilat, no cyanosis Neurologic: AOx4, CNII-XII intact, normal strength and sensation Psychiatric: Normal affect and mood, euthymic Lab/Diagnostic Review: Recent Results (from the past 36 hour(s)) Basic metabolic panel Collection Time: 06/02/22 12:21 AM Result Value Ref Range Sodium 140 135 - 145 mmol/L Potassium, pl 4.2 3.3 - 4.9 mmol/L Chloride 100 97 - 110 mmol/L CO2 33 (H) 22 - 32 mmol/L Anion gap 7 2 - 15 mmol/L BUN 40 (H) 8 - 25 mg/dL Creatinine 1.60 (H) 0.60 - 1.10 mg/dL Glucose 109 70 - 199 mg/dL Calcium 9.8 8.5 - 10.3 mg/dL CBC with auto differential Collection Time: 06/02/22 12:21 AM Result Value Ref Range WBC 11.3 (H) 3.8 - 9.9 K/cumm Hgb 10.9 (L) 11.9 - 15.5 g/dL Hct 34.2 (L) 35.6 - 45.5 % Plt 275 150 - 400 K/cumm MPV 10.6 9.1 - 12.3 fL RBC 3.53 (L) 3.90 - 5.20 M/cumm MCV 96.9 (H) 81.3 - 96.4 fL MCH 30.9 27.1 - 33.3 pg MCHC 31.9 (L) 32.3 - 35.7 g/dL RDW CV 12.9 11.1 - 14.9 % RDW SD 45.5 35.7 - 48.1 fL NRBC abs 0.00 0.00 - 0.01 K/cumm Magnesium Collection Time: 06/02/22 12:21 AM Result Value Ref Range Magnesium 1.8 1.4 - 2.5 mg/dL Differential, auto Collection Time: 06/02/22 12:21 AM Result Value Ref Range Neutrophil abs 8.1 (H) 1.7 - 6.5 K/cumm Imm gran abs 0.2 (H) 0.0 - 0.1 K/cumm Lymphocyte abs 1.6 0.8 - 3.3 K/cumm Monocyte abs 1.3 (H) 0.2 - 0.8 K/cumm Eosinophil abs 0.1 0.0 - 0.5 K/cumm Basophil abs 0.0 0.0 - 0.1 K/cumm Neutrophil pct 71.9 % Imm gran pct 1.4 % Lymphocyte pct 14.2 % Monocyte pct 11.4 % Eosinophil pct 0.9 % Basophil pct 0.2 % eGFR Collection Time: 06/02/22 12:21 AM Result Value Ref Range eGFR 34 (L) 90 - 130 mL/min/1.73 m2 Basic metabolic panel Collection Time: 06/02/22 8:56 PM Result Value Ref Range Sodium 139 135 - 145 mmol/L Potassium, pl 4.4 3.3 - 4.9 mmol/L Chloride 100 97 - 110 mmol/L CO2 33 (H) 22 - 32 mmol/L Anion gap 6 2 - 15 mmol/L BUN 36 (H) 8 - 25 mg/dL Creatinine 1.78 (H) 0.60 - 1.10 mg/dL Glucose 169 70 - 199 mg/dL Calcium 9.5 8.5 - 10.3 mg/dL CBC with auto differential Collection Time: 06/02/22 8:56 PM Result Value Ref Range WBC 10.2 (H) 3.8 - 9.9 K/cumm Hgb 10.9 (L) 11.9 - 15.5 g/dL Hct 34.8 (L) 35.6 - 45.5 % Plt 286 150 - 400 K/cumm MPV 10.4 9.1 - 12.3 fL RBC 3.58 (L) 3.90 - 5.20 M/cumm MCV 97.2 (H) 81.3 - 96.4 fL MCH 30.4 27.1 - 33.3 pg MCHC 31.3 (L) 32.3 - 35.7 g/dL RDW CV 13.0 11.1 - 14.9 % RDW SD 46.7 35.7 - 48.1 fL NRBC abs 0.00 0.00 - 0.01 K/cumm Magnesium Collection Time: 06/02/22 8:56 PM Result Value Ref Range Magnesium 1.8 1.4 - 2.5 mg/dL Differential, auto Collection Time: 06/02/22 8:56 PM Result Value Ref Range Neutrophil abs 8.3 (H) 1.7 - 6.5 K/cumm Imm gran abs 0.1 0.0 - 0.1 K/cumm Lymphocyte abs 1.0 0.8 - 3.3 K/cumm Monocyte abs 0.7 0.2 - 0.8 K/cumm Eosinophil abs 0.1 0.0 - 0.5 K/cumm Basophil abs 0.0 0.0 - 0.1 K/cumm Neutrophil pct 81.2 % Imm gran pct 1.1 % Lymphocyte pct 9.8 % Monocyte pct 7.2 % Eosinophil pct 0.5 % Basophil pct 0.2 % eGFR Collection Time: 06/02/22 8:56 PM Result Value Ref Range eGFR 30 (L) 90 - 130 mL/min/1.73 m2 I have reviewed the laboratory results. Imaging Results: ECG 12 lead Gene Nails MD 05/27/2022 3:56 PM ECG [...] ED XR Chest Pa Lateral 2 Vw Narrative: EXAMINATION: 2 view chest radiograph Impression: [...] this written report and agrees with it. * Plan of Care - Karishma Alonso RN - 06/03/2022 10:16 AM CDT Goals: Clinical Goals for the Shift: remain free from injury; monitor vitals; obtain labs; monitor and treat pain; rest Problem: Activity: Goal: Mobility will improve Outcome: Progressing Note: Outcome progressing, patient agreeable to sit upright in chair for lunch. Will continue to monitor. * Assessment & Plan Note - Joann Lyon NP - 06/03/2022 8:34 AM CDT Associated Problem(s): UTI (urinary tract infection) due to Enterococcus (Resolved 06/07/2022) -pt with Hx chronic UTis, on trimethoprim chronically->follows outpatient with Urology -UA with 3+ leukocytes, 3+ blood, 2+ bacteria, RBCs 11-20, >50 WBCs. Patient report urinary frequency -WBC ~10, remains afebrile -Urine culture Greater than or equal to 100,000 colonies/mL of Enterococcus faecium -Sensitivities noted -Day #3 Linezolid 600mg po BID, plan 7 days. Holding Zoloft while on Linezolid (avoid serotonin syndrome) * Assessment & Plan Note - Joann Lyon NP - 06/03/2022 8:33 AM CDT Associated Problem(s): Rib fracture (Resolved 07/03/2022) Tramadol prn. miralax daily prn. 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 -mobilize as able-pt needs LOTs of encouragement to participate, likes to stay in bed - PT/OT radha completed 05/31-rec SNF, multiple referrals pending * Assessment & Plan Note - Joann Lyon NP - 06/03/2022 8:33 AM CDT Associated Problem(s): Rheumatoid arthritis (HCC) -Holding abatacept during acute illness. Continued plaquenil. -would let her Rheum know prior to discharge re: abatacept * Assessment & Plan Note - Joann Lyon NP - 06/03/2022 8:33 AM CDT Associated Problem(s): Longstanding persistent atrial fibrillation (CMS/HCC) (HCC) -Chronic, on home metoprolol (dose decreased again today for persistent bradycardia/pauses) and eliquis -CTM on tele given bradycardia/pauses->remdesivir d/c'd after 2 doses * Assessment & Plan Note - Joann Lyon NP - 06/03/2022 8:32 AM CDT Associated Problem(s): STARR on CPAP CPAP at night-home unit at bedside, brought in by daughter Encourage nightly use. * Assessment & Plan Note - Joann Lyon NP - 06/03/2022 8:30 AM CDT Associated Problem(s): COVID-19 (Resolved 07/03/2022) Symptomatic with lethargy, leg swelling, and cough. -Tested + on 05/22/22 at [facility] (external result entered and pic of result in media tab) -s/p remdesivir x2 days for high risk->stopped for bradycardia/pauses w/HR 30-40 - Discussed with IP on 06/02-pt needs 20 full days COVID isolation before quarantine can be lifted (immunosuppressed on abatacept). Isolation can be lifted 06/12 -stable for discharge if SNF has COVID bed, or improves w/PT enough to safely go home, otherwise toremain inpatient until isolation lifted. * Assessment & Plan Note - Joann Lyon NP - 06/03/2022 8:30 AM CDT Associated Problem(s): Chronic respiratory failure with hypoxia (CMS/HCC) ([facility]) -2/2 ILD, STARR -Continuous pulse ox while with COVID. -Remains at baseline 2L at rest, 4L with exertion. -cont home prednisone, holding abetacept while acutely ill. -cont CPAP at night. 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 Completed 7 total days of antibiotics (Azith, CTX) on 05/29. -pulm status at baseline. * Assessment & Plan Note - Joann Lyon NP - 06/03/2022 8:27 AM CDT Associated Problem(s): Acute on chronic heart failure (CMS/HCC) ([facility]) (Resolved 06/07/2022) 2/2 dietary indiscretion vs COVID vs bacterial pneumonia. -Diuresed with IV lasix, now euvolemic->on home 60mg po Lasix since 05/30-hold today for Cr bump -stable pulm status on home oxygen need (2L at rest, 4L with activity) -continue home metop (dose decreased for bradycardia) -last TTE 12/2021 per outside notes with EF 55-60% -strict I/o, daily standing weights (down ~7 kg since admit) * Plan of Alan - Helene Cuevas RN - 06/03/2022 4:45 AM CDT Goals: Clinical Goals for the Shift: remain free from injury; monitor vitals; obtain labs; monitor and treat pain; rest Summary: Ayanna has remained free from injury and rested well throughout this shift. Her vitals were monitored as ordered and remained stable. Her labs were obtained with no further treatment required. Ms Gibbs's pain was monitored and treated with PRN tylenol as requested. She currently reports relief at this time. Ayanna is currently resting comfortably in bed, denies pain, shortness of breath, and s/s of distress or discomfort. Problem: Activity: Goal: Mobility will improve Outcome: Progressing Problem: Lack of Knowledge: Goal: Understanding of ways to prevent future skin breakdown will improve Outcome: Progressing Goal: Ability to identify appropriate dietary choices will improve Outcome: Progressing Problem: Nutritional: Goal: Dietary intake will improve Outcome: Progressing Goal: Ability to maintain a balanced intake and output will improve Outcome: Progressing Problem: Skin Integrity: Goal: Risk for impaired skin integrity will decrease Outcome: Progressing Goal: Ability to demonstrate warm and dry skin will improve Outcome: Progressing Goal: Circulation will improve to fullest extent possible Outcome: Progressing Problem: Activity: Goal: Risk for activity intolerance will decrease Outcome: Progressing Problem: Lack of Knowledge: Goal: Knowledge of diagnostic tests will improve Outcome: Progressing Goal: Knowledge of disease or condition will improve Outcome: Progressing Goal: Knowledge of safety precautions will improve Outcome: Progressing Goal: Knowledge of the prescribed therapeutic regimen will improve Outcome: Progressing Problem: Health Behavior: Goal: Ability to state signs and symptoms to report to health care provider will improve Outcome: Progressing Problem: Physical Regulation: Goal: Ability to maintain clinical measurements within normal limits will improve Outcome: Progressing Problem: Infection Risk: Goal: Will remain free from infection Outcome: Progressing Problem: Safety: Goal: Ability to remain free from injury will improve Outcome: Progressing Goal: Will remain free from falls Outcome: Progressing Problem: Self-Care: Goal: Ability to participate in self-care as condition permits will improve Outcome: Progressing Problem: Sensory: Goal: Pain level will decrease Outcome: Progressing Goal: Ability to develop a pain control plan will improve Outcome: Progressing Problem: Skin Integrity: Goal: Risk for impaired skin integrity will decrease Outcome: Progressing Problem: Tissue Perfusion: Goal: Risk factors for ineffective tissue perfusion will decrease Outcome: Progressing Problem: Lack of Knowledge: Goal: Knowledge of risk factors and measures for prevention of condition will improve Outcome: Progressing Problem: Coping: Goal: Psychosocial and spiritual needs will be supported Outcome: Progressing Problem: Physical Regulation: Goal: Spread of further infection will be prevented Outcome: Progressing Problem: Respiratory: Goal: Will maintain a patent airway Outcome: Progressing Goal: Complications related to the disease process, condition or treatment will be avoided or minimized Outcome: Progressing Problem: Lack of Knowledge: Goal: Ability to develop a pain control plan will improve Outcome: Progressing Goal: Ability to identify pain intensity on a pain scale and rate it consistently will improve Outcome: Progressing Goal: Ability to notify healthcare provider of pain before it becomes unmanageable or unbearable will improve Outcome: Progressing Problem: Medication: Goal: Satisfaction with pain management regimen will improve Outcome: Progressing Problem: Sensory: Goal: Ability to identify factors that increase the pain will improve Outcome: Progressing Goal: Pain level will decrease Outcome: Progressing Problem: Lack of Knowledge: Goal: Ability to state ways to decrease the risk of falls will improve Outcome: Progressing Problem: Safety: Goal: Will remain free from falls Outcome: Progressing Goal: Will remain free from injury from falls Outcome: Progressing Goal: Will remain free from falls and injury in home environment Outcome: Progressing Problem: Health Behavior: Goal: Understanding of discharge needs will improve Outcome: Progressing * Plan of Care - Kellen Alcaraz RRT - 06/03/2022 2:14 AM CDT Impression: Pt. Ordered on nocturnal NPPV via home unit. Plan: continue use of NPPV as ordered. * Plan of Care - Jersey Nioxn RRT - 06/02/2022 5:54 PM CDT Medical Conditions Diagnosis ??? Paroxysmal atrial fibrillation (CMS/HCC) (HCC) ??? Chronic anticoagulation ??? Chronic heart failure with preserved ejection fraction (CMS/HCC) (HCC) ??? Rheumatoid arthritis (HCC) ??? Morbid obesity with BMI of 45.0-49.9, adult (CMS/HCC) (HCC) ??? STARR on CPAP ??? H/O influenza ??? ILD (interstitial lung disease) (CMS/HCC) (HCC) ??? Chronic respiratory failure with hypoxia (CMS/HCC) (HCC) ??? Acute on chronic heart failure (CMS/HCC) (HCC) ??? Hyperlipidemia, unspecified ??? Recurrent major depressive disorder, in partial remission ([facility]) ??? COVID-19 ??? Bacterial pneumonia ??? Rib fracture ??? UTI (urinary tract infection) due to Enterococcus The patients home CPAP equipment was on standby during the day today. * Plan of Care - Karishma Alonso RN - 06/02/2022 2:35 PM CDT Goals: Clinical Goals for the Shift: meds/vs/labs/rest/pain/free from falls and injury Problem: Safety: Goal: Will remain free from falls Outcome: Progressing Note: Outcome progressing, will continue to monitor toward goal. * Subjective & Objective - Joann Lyon NP - 06/02/2022 12:01 PM CDT Daily Progress Note Division of Hospital Medicine Name: Ayanna Gibbs Today: June 02, 2022 : 1950 Age: 72 y.o. female Admit: 05/27/2022 Bed: [id number] Subjective Chief complaint: Shortness of breath Interval History: Remains at baseline oxygen requirement. Tired this am, reports did not sleep well. Otherwise no complaints. Medically stable for discharge. To SNF once placement found, +/- COVID isolation completed. Objective Medications: Scheduled: apixaban, 5 mg, oral, Q12H DELFIN cholecalciferol, 1,000 Units, oral, Daily cholestyramine-aspartame, 1 packet, oral, Daily - 0600 cyanocobalamin, 2,000 mcg, oral, Daily furosemide, 60 mg, oral, Daily hydrOXYchloroQUINE, 200 mg, oral, BID levothyroxine, 112 mcg, oral, Daily linezolid, 600 mg, oral, BID metoprolol XL, 100 mg, oral, Daily pravastatin, 80 mg, oral, Daily predniSONE, 15 mg, oral, QAM [Held by Provider] sertraline, 50 mg, oral, Daily trimethoprim, 100 mg, oral, Nightly umeclidinium-vilanteroL, 1 puff, inhalation, Daily Infusions: PRN: acetaminophen albuterol HFA polyethylene glycol ramelteon traMADoL Vitals: 24hr Min/Max: Temp Min: 36.4 ??C (97.6 ??F) Max: 36.6 ??C (97.9 ??F) Pulse Min: 57 Max: 70 BP Min: 116/59 Max: 128/55 Resp Min: 18 Max: 18 SpO2 Min: 98 % Max: 99 % Most Recent: Vitals: 06/02/22 0829 BP: 116/59 Pulse: 63 Resp: 18 Temp: 36.6 ??C (97.9 ??F) SpO2: 99% 2L Intake/Output Summary (Last 24 hours) at 06/02/2022 1201 Last data filed at 06/01/2022 1800 Gross per 24 hour Intake 822 ml Output 700 ml Net 122 ml Telemetry review: a-fib, syd, occasional pause ~2sec Physical Exam Constitutional: NAD, well developed, obese Eyes: PERRL, EOMI, anicteric ENT: NCAT, oropharynx normal, moist mucus membranes Lungs: CTA, unlabored at rest, increased WOB with minimal activity Cardiovascular: Irreg, syd, normal S1 and S2, no murmurs, no JVD appreciated GI: Soft, non-tender, non-distended, bowel sounds +, no organomegaly Skin: No new rashes, lesions or bruises on visible skin Extremities: Trace pretibial edema bilat, no cyanosis Neurologic: AOx4, CNII-XII intact, normal strength and sensation Psychiatric: Normal affect and mood, euthymic Lab/Diagnostic Review: Recent Results (from the past 36 hour(s)) Basic metabolic panel Collection Time: 06/02/22 12:21 AM Result Value Ref Range Sodium 140 135 - 145 mmol/L Potassium, pl 4.2 3.3 - 4.9 mmol/L Chloride 100 97 - 110 mmol/L CO2 33 (H) 22 - 32 mmol/L Anion gap 7 2 - 15 mmol/L BUN 40 (H) 8 - 25 mg/dL Creatinine 1.60 (H) 0.60 - 1.10 mg/dL Glucose 109 70 - 199 mg/dL Calcium 9.8 8.5 - 10.3 mg/dL CBC with auto differential Collection Time: 06/02/22 12:21 AM Result Value Ref Range WBC 11.3 (H) 3.8 - 9.9 K/cumm Hgb 10.9 (L) 11.9 - 15.5 g/dL Hct 34.2 (L) 35.6 - 45.5 % Plt 275 150 - 400 K/cumm MPV 10.6 9.1 - 12.3 fL RBC 3.53 (L) 3.90 - 5.20 M/cumm MCV 96.9 (H) 81.3 - 96.4 fL MCH 30.9 27.1 - 33.3 pg MCHC 31.9 (L) 32.3 - 35.7 g/dL RDW CV 12.9 11.1 - 14.9 % RDW SD 45.5 35.7 - 48.1 fL NRBC abs 0.00 0.00 - 0.01 K/cumm Magnesium Collection Time: 06/02/22 12:21 AM Result Value Ref Range Magnesium 1.8 1.4 - 2.5 mg/dL Differential, auto Collection Time: 06/02/22 12:21 AM Result Value Ref Range Neutrophil abs 8.1 (H) 1.7 - 6.5 K/cumm Imm gran abs 0.2 (H) 0.0 - 0.1 K/cumm Lymphocyte abs 1.6 0.8 - 3.3 K/cumm Monocyte abs 1.3 (H) 0.2 - 0.8 K/cumm Eosinophil abs 0.1 0.0 - 0.5 K/cumm Basophil abs 0.0 0.0 - 0.1 K/cumm Neutrophil pct 71.9 % Imm gran pct 1.4 % Lymphocyte pct 14.2 % Monocyte pct 11.4 % Eosinophil pct 0.9 % Basophil pct 0.2 % eGFR Collection Time: 06/02/22 12:21 AM Result Value Ref Range eGFR 34 (L) 90 - 130 mL/min/1.73 m2 I have reviewed the laboratory results. Imaging Results: ECG 12 lead Gene Nails MD 05/27/2022 3:56 PM ECG [...] ED XR Chest Pa Lateral 2 Vw Narrative: EXAMINATION: 2 view chest radiograph Impression: [...] this written report and agrees with it. * Assessment & Plan Note - Joann Lyon NP - 06/02/2022 8:46 AM CDT Associated Problem(s): UTI (urinary tract infection) due to Enterococcus (Resolved 06/07/2022) -pt with Hx chronic UTis, on trimethoprim chronically->follows outpatient with Urology -UA with 3+ leukocytes, 3+ blood, 2+ bacteria, RBCs 11-20, >50 WBCs, patient denies symptoms, remains asx -WBC ~10, remains afebrile -Urine culture Greater than or equal to 100,000 colonies/mL of Enterococcus faecium -Sensitivities reviewed -Start Linezolid 600mg po BID, plan 7 days. Holding Zoloft while on Linezolid (avoid serotonin syndrome) * Assessment & Plan Note - Joann Lyon NP - 06/02/2022 8:46 AM CDT Associated Problem(s): Rib fracture (Resolved 07/03/2022) Tramadol prn. miralax daily prn. 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 -mobilize as able-rehab/SNF at discharge->Needs new referrals as patient & daughter do not want her going back to prior facility. PT/OT radha completed 05/31-rec SNF, multiple referrals pending * Assessment & Plan Note - Joann Lyon NP - 06/02/2022 8:45 AM CDT Associated Problem(s): Rheumatoid arthritis (HCC) holding abatacept during acute illness. Continued plaquenil. * Assessment & Plan Note - Joann Lyon NP - 06/02/2022 8:45 AM CDT Associated Problem(s): STARR on CPAP CPAP at night-home unit brought in by daughter. Encourage nightly use. * Assessment & Plan Note - Joann Lyon NP - 06/02/2022 8:44 AM CDT Associated Problem(s): COVID-19 (Resolved 07/03/2022) Symptomatic with lethargy, leg swelling, and cough. -Tested + on 05/22/22 at [facility] (external result entered and pic of result in media tab) -s/p remdesivir x2 days for high risk->stopped for bradycardia/pauses w/HR 30-40 yesterday - Discussed with IP today-pt need 20 full days COVID isolation before quarantine can be lifted (immunosuppressed on abatacept) ~isolation to be lifted 06/12 -stable for discharge if SNF has COVID bed, otherwise to remain inpatient until isolation lifted. * Assessment & Plan Note - Joann Lyon NP - 06/02/2022 8:44 AM CDT Associated Problem(s): Chronic respiratory failure with hypoxia (CMS/HCC) (HCC) -2/2 ILD, STARR -Continuous pulse ox while with COVID. -Remains at baseline 2L at rest, 4L with exertion. -cont home prednisone, holding abetacept while acutely ill -cont CPAP at night. 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 Completed 7 total days of antibiotics (Azith, CTX) on 05/29. -pulm status at baseline. * Assessment & Plan Note - Joann Lyon NP - 06/02/2022 8:44 AM CDT Associated Problem(s): Acute on chronic heart failure (CMS/HCC) (HCC) (Resolved 06/07/2022) 2/2 dietary indiscretion vs COVID or bacterial pneumonia. -Diuresed with IV lasix, now euvolemic->back on home 60mg po Lasix since 05/30 -stable pulm status on home oxygen need (2L at rest, 4L with activity) -continue home metop (dose decreased for bradycardia) -last TTE 12/2021 per outside notes with EF 55-60% -strict I/o, daily weights (down ~3 kg since admit) * Plan of Care - Mary Bagley RN - 06/02/2022 6:47 AM CDT Problem: Activity: Goal: Mobility will improve Outcome: Progressing Problem: Lack of Knowledge: Goal: Understanding of ways to prevent future skin breakdown will improve Outcome: Progressing Goal: Ability to identify appropriate dietary choices will improve Outcome: Progressing Problem: Nutritional: Goal: Dietary intake will improve Outcome: Progressing Goal: Ability to maintain a balanced intake and output will improve Outcome: Progressing Problem: Skin Integrity: Goal: Risk for impaired skin integrity will decrease Outcome: Progressing Goal: Ability to demonstrate warm and dry skin will improve Outcome: Progressing Goal: Circulation will improve to fullest extent possible Outcome: Progressing Problem: Activity: Goal: Risk for activity intolerance will decrease Outcome: Progressing Problem: Lack of Knowledge: Goal: Knowledge of diagnostic tests will improve Outcome: Progressing Goal: Knowledge of disease or condition will improve Outcome: Progressing Goal: Knowledge of safety precautions will improve Outcome: Progressing Goal: Knowledge of the prescribed therapeutic regimen will improve Outcome: Progressing Problem: Health Behavior: Goal: Ability to state signs and symptoms to report to health care provider will improve Outcome: Progressing Problem: Physical Regulation: Goal: Ability to maintain clinical measurements within normal limits will improve Outcome: Progressing Problem: Infection Risk: Goal: Will remain free from infection Outcome: Progressing Problem: Safety: Goal: Ability to remain free from injury will improve Outcome: Progressing Goal: Will remain free from falls Outcome: Progressing Problem: Self-Care: Goal: Ability to participate in self-care as condition permits will improve Outcome: Progressing Problem: Sensory: Goal: Pain level will decrease Outcome: Progressing Goal: Ability to develop a pain control plan will improve Outcome: Progressing Problem: Skin Integrity: Goal: Risk for impaired skin integrity will decrease Outcome: Progressing Problem: Tissue Perfusion: Goal: Risk factors for ineffective tissue perfusion will decrease Outcome: Progressing Problem: Lack of Knowledge: Goal: Knowledge of risk factors and measures for prevention of condition will improve Outcome: Progressing Problem: Coping: Goal: Psychosocial and spiritual needs will be supported Outcome: Progressing Problem: Physical Regulation: Goal: Spread of further infection will be prevented Outcome: Progressing Problem: Respiratory: Goal: Will maintain a patent airway Outcome: Progressing Goal: Complications related to the disease process, condition or treatment will be avoided or minimized Outcome: Progressing Problem: Lack of Knowledge: Goal: Ability to develop a pain control plan will improve Outcome: Progressing Goal: Ability to identify pain intensity on a pain scale and rate it consistently will improve Outcome: Progressing Goal: Ability to notify healthcare provider of pain before it becomes unmanageable or unbearable will improve Outcome: Progressing Problem: Medication: Goal: Satisfaction with pain management regimen will improve Outcome: Progressing Problem: Sensory: Goal: Ability to identify factors that increase the pain will improve Outcome: Progressing Goal: Pain level will decrease Outcome: Progressing Problem: Lack of Knowledge: Goal: Ability to state ways to decrease the risk of falls will improve Outcome: Progressing Problem: Safety: Goal: Will remain free from falls Outcome: Progressing Goal: Will remain free from injury from falls Outcome: Progressing Goal: Will remain free from falls and injury in home environment Outcome: Progressing Problem: Health Behavior: Goal: Understanding of discharge needs will improve Outcome: Progressing Goals: Clinical Goals for the Shift: meds/vs/labs/rest/pain/free from falls and injury Summary: meds are given as ordered/vital signs are stable/labs are obtained and monitored/client given pain reliever for complaint of dull headache with relief voiced/client is given a sleeping pill for voiced complaint of insomnia with voiced relief- client states she slept well through the night/ client has remained free from falls and injury. * Plan of Care - Daphney Bourne RRT - 06/02/2022 4:28 AM CDT Patient wore home NPPV. Respiratory will continue to monitor. * Subjective & Objective - Joann Lyon [employer]VEST[employer] SUPERVISOR - 06/01/2022 1:50 PM CDT Daily Progress Note Division of Hospital Medicine Name: Ayanna Gibbs Today: June 01, 2022 : 1950 Age: 72 y.o. female Admit: 05/27/2022 Bed: [id number] Subjective Chief complaint: Shortness of breath Interval History: Up to chair today. Remains at baseline oxygen requirement. Anticipating dischargeto SNF once COVID isolation lifted. Objective Medications: Scheduled: apixaban, 5 mg, oral, Q12H DELFIN cholecalciferol, 1,000 Units, oral, Daily cholestyramine-aspartame, 1 packet, oral, Daily - 0600 cyanocobalamin, 2,000 mcg, oral, Daily furosemide, 60 mg, oral, Daily hydrOXYchloroQUINE, 200 mg, oral, BID levothyroxine, 112 mcg, oral, Daily linezolid, 600 mg, oral, BID metoprolol XL, 100 mg, oral, Daily pravastatin, 80 mg, oral, Daily predniSONE, 15 mg, oral, QAM [Held by Provider] sertraline, 50 mg, oral, Daily trimethoprim, 100 mg, oral, Nightly umeclidinium-vilanteroL, 1 puff, inhalation, Daily Infusions: PRN: acetaminophen albuterol HFA polyethylene glycol ramelteon traMADoL Vitals: 24hr Min/Max: Temp Min: 36.3 ??C (97.4 ??F) Max: 36.7 ??C (98 ??F) Pulse Min: 60 Max: 65 BP Min: 117/61 Max: 128/76 Resp Min: 18 Max: 18 SpO2 Min: 96 % Max: 98 % Most Recent: Vitals: 06/01/22 0805 BP: 128/76 Pulse: 62 Resp: 18 Temp: 36.3 ??C (97.4 ??F) SpO2: 98% RA Telemetry: a-fib, intermittently bradycardic, 2 pauses overnight 2sec Intake/Output Summary (Last 24 hours) at 06/01/2022 1350 Last data filed at 06/01/2022 0805 Gross per 24 hour Intake 1422 ml Output 1600 ml Net -178 ml Physical Exam Constitutional: NAD, well developed, obese Eyes: PERRL, EOMI, anicteric ENT: NCAT, oropharynx normal, moist mucus membranes Lungs: CTA, unlabored at rest, increased WOB with minimal activity Cardiovascular: Irreg, syd, normal S1 and S2, no murmurs, no JVD appreciated GI: Soft, non-tender, non-distended, bowel sounds +, no organomegaly Skin: No new rashes, lesions or bruises on visible skin Extremities: Trace pretibial edema bilat, no cyanosis Neurologic: AOx4, CNII-XII intact, normal strength and sensation Psychiatric: Normal affect and mood, euthymic Lab/Diagnostic Review: Recent Results (from the past 36 hour(s)) Basic metabolic panel Collection Time: 05/31/22 11:57 PM Result Value Ref Range Sodium 139 135 - 145 mmol/L Potassium, pl 4.3 3.3 - 4.9 mmol/L Chloride 100 97 - 110 mmol/L CO2 31 22 - 32 mmol/L Anion gap 8 2 - 15 mmol/L BUN 40 (H) 8 - 25 mg/dL Creatinine 1.41 (H) 0.60 - 1.10 mg/dL Glucose 122 70 - 199 mg/dL Calcium 9.6 8.5 - 10.3 mg/dL CBC with auto differential Collection Time: 05/31/22 11:57 PM Result Value Ref Range WBC 10.1 (H) 3.8 - 9.9 K/cumm Hgb 10.9 (L) 11.9 - 15.5 g/dL Hct 34.2 (L) 35.6 - 45.5 % Plt 274 150 - 400 K/cumm MPV 10.3 9.1 - 12.3 fL RBC 3.52 (L) 3.90 - 5.20 M/cumm MCV 97.2 (H) 81.3 - 96.4 fL MCH 31.0 27.1 - 33.3 pg MCHC 31.9 (L) 32.3 - 35.7 g/dL RDW CV 12.9 11.1 - 14.9 % RDW SD 46.0 35.7 - 48.1 fL NRBC abs 0.00 0.00 - 0.01 K/cumm Magnesium Collection Time: 05/31/22 11:57 PM Result Value Ref Range Magnesium 1.9 1.4 - 2.5 mg/dL Differential, auto Collection Time: 05/31/22 11:57 PM Result Value Ref Range Neutrophil abs 7.7 (H) 1.7 - 6.5 K/cumm Imm gran abs 0.2 (H) 0.0 - 0.1 K/cumm Lymphocyte abs 1.1 0.8 - 3.3 K/cumm Monocyte abs 1.1 (H) 0.2 - 0.8 K/cumm Eosinophil abs 0.1 0.0 - 0.5 K/cumm Basophil abs 0.0 0.0 - 0.1 K/cumm Neutrophil pct 75.8 % Imm gran pct 1.5 % Lymphocyte pct 10.6 % Monocyte pct 10.9 % Eosinophil pct 1.0 % Basophil pct 0.2 % eGFR Collection Time: 05/31/22 11:57 PM Result Value Ref Range eGFR 39 (L) 90 - 130 mL/min/1.73 m2 I have reviewed the laboratory results. Imaging Results: ECG 12 lead Gene Nails MD 05/27/2022 3:56 PM ECG [...] ED XR Chest Pa Lateral 2 Vw Narrative: EXAMINATION: 2 view chest radiograph Impression: [...] this written report and agrees with it. * [facility] Note - Hugo Reyna RN - 06/01/2022 9:44 AM CDT Images from the original note were not included. Patient Information: OT Eval and Treat Last 72 Hours OT Evaluation Row Name 05/31/22 0810 Chart Reviewed Yes - Session Type Evaluation -JR OT Received On 05/31/22 - Safe Environment Arm Band Checked;Call Light within Reach;Patient found in Supine;Overbed Table within Reach Pt left in supine iwth call light, phone & overhead table within reach - Subjective Agreeable to Therapy - Family/Caregiver Present No -JR Occupational Therapy-Patient Goal To go back home - Precautions Fall risk;STARR - Type of Home House - Home Layout Two level - Home Access Stairs to enter with rails - Entrance Stairs-Rails Both - Entrance Stairs-Number of Steps 2 -JR Bathroom Shower/Tub Walk-in shower with threshold shower chair - Bathroom Toilet Raised - Bathroom Equipment Grab bars in shower/tub;Grab bars around toilet grab bars around the toilet on maibn level where she is during the days-no grab bars next to upstairs toilet-grab bars in walk- in shower - Bathroom Accessibility Accessible via walker - Home Mobility Equipment Wheeled walker used all times in home & outside of home - Home ADL Equipment Sock aid;Top Installer;Dressing stick;Other (Comment) two BSCs-one on each level - Additional Comments Pt stays on main level all day & goes up 14 steps to her bedroom/walk-in shower omce at night when she's ready for bed. Bilat rails around 14 steps - Level of [place] Independent with ADLs;Independent functional transfers;Independent with ambulation;Dependent with homemaking with ambulation -JR Lives With Daughter lives with one daughter who does all cooking , a different daughter does grocery shopping, laundry. -JR Receives Help From Family -JR Driving No -JR Mode of Transportation Family -JR ADL Assistance Independent -JR Instrumental ADL (IADL) Assistance Needs assistance -JR Vocational/Occupation Retired -JR Fall within the last 6 months Yes -JR Fall within the last 6 months comment 1 -JR Prior Function Comments independent with ADLs, using walker, one fall out of bed in last 6 m ont.Two daughters assist wih all IADLs, driving. Has a son to assist as well. Pt's daughter works 12 hours a day-pt doesn't have 24 hour assist -JR ADLS (WDL) X -JR Grooming: Where assessed Standing at sink -JR Grooming: Level of assistance Modified independent pt uses ww & leans over pressing her forearms on sink to wash hands/face-reports that was her PLOF -JR LE Dressing: Where assessed Standing;Sitting;Edge of bed -JR LE Dressing: Level of assistance Maximum Assist -JR LE Dressing: Assistance with Don/doff R sock;Don/doff L sock pt reports hospital bed (on lowest setting) is still higher than her bed at home where she don/doffed socks-pt also has sock aside at homeshe used after knee replacement) -JR Toileting: Where assessed Bedside Commode -JR Toileting: Level of assistance Modified Independent -JR Toileting: Assistance with -- pt uses ww to stand when manging hygiene-has grab bar next to toilet at home -JR Pain Assessment No/denies pain -JR Pain Score 0 - No pain -JR Patient's Stated Pain Goal No pain -JR Activity Tolerance Comments REY- somewhat exerting -JR Current Vision Wears glasses all the time -JR Cognition Comments 6 on short blessed -JR Arousal/Alertness Alert;Appropriate responses to stimuli -JR Attention Span Appears intact -JR Memory Appears intact -JR Current communication Appears Intact -JR Orientation Oriented X4 (person, place, time, situation) -JR Following Commands Follows all commands and directions without difficulty -JR Safety Judgment Good awareness of safety precautions -JR Awareness of Errors Good awareness of errors made -JR Insight Fully aware of deficits -JR Problem Solving Able to problem solve independently -JR Compliance/Behavior Easy to engage -JR Perseveration Not present -JR Light Touch WFL -JR Hand Preference Right -JR Balance Yes -JR Dynamic Sitting-Balance Support Feet supported;Unilateral upper extremity supported -JR Dynamic Sitting-Balance Forward lean;Reaching for objects;Reaching across midline -JR Dynamic Sitting-Level of Assistance Distant supervision safety-high bed -JR Dynamic Standing-Balance Support Unilateral upper extremity supported -JR Dynamic Standing-Balance Forward lean;Reaching for objects;Reaching across midline -JR Dynamic Standing-Standing Surface Floor -JR Dynamic Standing-Level of Assistance Distant supervision MOD I using walker -JR Dynamic Standing-Comments MOD I using walker -JR Bed Mobility Yes -JR Bed Mobility From 1 Supine -JR Bed Mobility Type 1 To -JR Bed Mobility to 1 Edge of bed -JR Level of Assistance 1 Standby Assist using rails & elevated HOB -JR Bed Mobility Comments 1 safety -JR Bed Mobility From 2 Edge of bed -JR Bed Mobility Type 2 To -JR Bed Mobility to 2 Supine -JR Level of Assistance 2 Minimum Assist -JR Bed Mobility Comments 2 BLE into bed -JR Transfer Yes gait belt used during session -JR Transfer From 1 Sit -JR Transfer Type 1 To and from -JR Transfer to 1 Stand -JR Technique 1 Sit to stand;Stand to sit -JR Transfer Device 1 Wheeled walker -JR Transfer Level of Assistance 1 Modified Independent -JR Trials/Comments 1 using bed rail -JR Trials/Comments 2 MOD I with ww short distances to [facility] in room -JR RUE Assessment WFL -JR LUE Assessment WFL -JR Putting on and taking off regular lower body clothing 2 -JR Bathing 3 -JR Toileting 4 -JR Putting on and taking off upper body clothing 4 -JR Personal Grooming 4 -JR Eating Meals 4 -JR Total Score (range 6-24) 21 -JR Score Interpretation 44.27 -JR Problem List Decreased endurance;Decreased ROM;Pain;Decreased ADL independence;Decreased IADL independence -JR Barriers to Discharge Current Mobility Status;Home environment challenged -JR Plan Plan of care initiated;If this is the last note, consider this the discharge summary -JR OT Recommendation Assisted Facility home with possible home modifications on main level, OT home health to address safety in home & complaince with med management due to 6 on short blessed-JR Patient at high risk for Readmission;Injury due to decreased ability to care for self -JR OT Recommendation/Plan Comments pending how patient does with P.T with distance & steps-could go home with assist -JR OT Frequency 2-3x/wk -JR Treatment/Interventions ADL/IADL retraining;Balance Training;Compensatory technique education;Endurance training;Equipment eval/education;Functional mobility training;Functional transfer training;Functional activity;Positioning;Positioning equipment;Parent/caregiver training and education;Strengthening;Therapeutic activity;Therapeutic exercise;Transfer training - OT Equipment Recommended Top Installer;Sock aid - OT - Next Appointment 06/04/22 -JR OT Evaluation Complete Yes -JR User Cuenca (r) = Recorded By, (t) = Taken By, (c) = Cosigned By Initials Name Effective Dates JR Ni Walton, BINDU 03/01/22 - OT Treatment No documentation. OT Notes 05/31/2022 10:31 AM Progress Notes signed by Ni Walton OT , PT Eval and Treat Last 72 Hours PT Evaluation Row Name 05/31/22 0925 Chart Reviewed Yes -LM Session Type Evaluation -LM Subjective Agreeable to Therapy -LM Subjective Comment I've been in bed for 9 days. -LM Additional Pertinent History PMH includes RA, ILD on 2L rest 4L exertion, AFib, depression. -LM Family/Caregiver Present No -LM Physical Therapy-Patient Goal to be able to move around. -LM Precautions Fall risk;STARR -LM Type of Home House -LM Home Layout Two level;Stairs with rails -LM # of Steps-Railed 14 -LM Home Access Stairs to enter with rails -LM Entrance Stairs-Rails Both -LM Entrance Stairs-Number of Steps 2 -LM Home Mobility Equipment Wheeled walker;Single point cane -LM Additional Comments Patient reports independence with all household mobility; reports using walker for all ambulation. patient reports using wheelchair only for doctor's appointments. Pt states she uses her stairs once per day, to and from bedroom; reports independence on stairs. -LM Level of [place] Independent with ambulation with walker -LM Lives With Daughter -LM Receives Help From Family departure clerk assist -LM Fall within the last 6 months Yes -LM Fall within the last 6 months comment Patient reports one fall due to sliding off bed; fall resulted in admission and left rib fractures. -LM Activity Tolerance Comments rye: somewhat hard -LM Pain Assessment No/denies pain -LM Arousal/Alertness Alert -LM Orientation Oriented X4 (person, place, time, situation) -LM Following Commands Follows all commands and directions without difficulty -LM Compliance/Behavior Easy to engage -LM Light Touch WFL bilateral feet -LM Sensation Comments skin intact bilateral feet -LM Balance Yes -LM Static Sitting-Balance Support No upper extremity supported;Feet supported -LM Static Sitting-Sitting Surface Bed -LM Static Sitting-Level of Assistance Distant supervision -LM Static Sitting-Comment/# of Minutes for safety -LM Static Standing-Balance Support Bilateral upper extremity supported with walker -LM Static Standing-Standing Surface Floor -LM Static Standing-Level of Assistance Distant supervision -LM Static Standing-Comment/# of Minutes for safety; decreased standing tolerance due to c/o fatigue and SOB. Pt reports she can't stand for long times at baseline. -LM Bed Mobility Yes -LM Bed Mobility From 1 Supine -LM Bed Mobility Type 1 To -LM Bed Mobility to 1 Edge of bed -LM Level of Assistance 1 Standby Assist -LM Bed Mobility Comments 1 with HOB elevated and with use of bed rail; requires increased time. Pt reports she can elevate HOB on her bed at home. -LM Bed Mobility From 2 Edge of bed -LM Bed Mobility Type 2 To -LM Bed Mobility to 2 Supine -LM Level of Assistance 2 Minimum Assist;Minimal verbal cues -LM Bed Mobility Comments 2 with HOB flat; assist to lift BLEs onto bed -LM Transfer Yes -LM Transfer From 1 Sit -LM Transfer Type 1 To and from -LM Transfer to 1 Stand -LM Transfer Device 1 Wheeled walker -LM Transfer Level of Assistance 1 Standby Assist -LM Trials/Comments 1 4 reps; with UE support; SBA for safety. Pt demonstrates decreased force production and decreased control of descsent. -LM Ambulation Yes -LM Distance (ft) 1 40 -LM Surface 1 Level tile -LM Device 1 Wheeled walker -LM Assistance 1 Standby Assist;Minimal verbal cues -LM Gait: Requires verbal cues to 1 Pace activity -LM Quality of Gait 1 decreased venita, decreased step length, flexed trunk posture -LM Ambulation Comments 1 Patient ambulated 20+20+40 feet with seated rest breaks. Gait distance limited by c/o fatigue, SOB, and lightheadedness with noted slight decrease in SBP after ambulation; SBP improved at end of PT session. O2 increased to 4L/min for ambulation, as patient reports requiring 4LO2 during exertion at baseline. -LM Stairs No -LM Stair Comments Stairs simulated: standing toe taps to side of trash cane x 2 reps each leg, with walker and close supervision for safety. Pt unable to tolerate further standing toe taps due to SOB and fatigue. -LM RUE Assessment WFL -LM LUE Assessment WFL -LM RLE Assessment WFL -LM R Hip Flexion 4-/5 -LM R Knee Flexion 4/5 -LM R Knee Extension 4/5 -LM R Ankle Dorsiflexion 4+/5 -LM LLE Assessment WFL -LM L Hip Flexion 4-/5 -LM L Knee Flexion 4+/5 -LM L Knee Extension 4+/5 -LM L Ankle Dorsiflexion 4+/5 -LM Equipment Use Comments gait belt used -LM Other PT Comments Patient requires increased time for all mobility and frequent rest breaks due to fatigue and SOB. Patient requires standby assistance for safety during ambulation and mobility and reports having only departure clerk assist at home; states she is home alone from 5am-5pm when daughter is at work. Pt demonstrates decreased activity tolerance and unable to tolerate stairs at this time. Patient would benefit from skilled PT in SNF setting to improve functional mobility. -LM How much difficulty does the patient have: Turning over in bed 3 -LM How much difficulty does the patient currently have: Sitting down and standing up from a chair witharms? 3 -LM How much difficulty does the patient have: Moving from lying on back to sitting on the side of the bed? 3 -LM How much difficulty does the patient have: Moving to and from a bed to a chair including wheelchair? 3 -LM How much help does the patient currently need: Walk in hospital room? 3 -LM How much help from another person does the patient currently need: Climbing 3-5 steps with a railing? 2 -LM Total 6 Click Score (range 6-24) 17 -LM Prognosis Good -LM Problem List Gait deviations;Decreased strength;Decreased endurance;Impaired balance;Decreased mobility -LM Problem List Comments PT Diagnosis: LE edema, fall with three left rib fractures, and COVID+ results in above listed activity deficits and impairments which prevent full participation in home mobility. -LM Barriers to Discharge Current Mobility Status;Decreased caregiver support;Home environment challenged -LM Plan Plan of care initiated;If this is the last note, consider this the discharge summary -LM PT Recommendation/Plan Assisted Facility - Patient at high risk for Falls;Readmission;Injury due to reduced functional status - Recommend SNF due to Skilled therapy needed to address functional deficits;Risk of injury at home - PT Recommendation/Plan Comments PT POC was discussed with patient. Patient states she will go to SNF if needed. - PT Frequency 3-5x/wk - Treatment/Interventions Balance Training;Bed mobility;Endurance training;Functional activity;Functional transfer training;Gait training;Stair training;Therapeutic activity;Therapeutic exercise - PT Evaluation Complete Yes -LM User Cuenca (r) = Recorded By, (t) = Taken By, (c) = Cosigned By Initials Name Effective Dates LM Maria L Ghotra, PT 10/26/19 - PT TREATMENT (last 168 hours) PT Treatment No documentation. PT Notes 05/31/2022 11:43 AM Progress Notes signed by Maria L Ghotra, PT * Assessment & Plan Note - Joann Lyon NP - 06/01/2022 8:19 AM CDT Associated Problem(s): Rib fracture (Resolved 07/03/2022) Tramadol prn. miralax daily prn. 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 -mobilize as able-rehab/SNF at discharge->Needs new referrals as patient & daughter do not want her going back to prior facility. PT/OT evals completed 05/31-rec SNF * Assessment & Plan Note - Joann Lyon NP - 06/01/2022 8:19 AM CDT Associated Problem(s): Rheumatoid arthritis (HCC) holding abatacept. Continued plaquenil * Assessment & Plan Note - Joann Lyon NP - 06/01/2022 8:19 AM CDT Associated Problem(s): Longstanding persistent atrial fibrillation (CMS/HCC) ([facility]) -Chronic, on home metoprolol (dose decreased for persistent bradycardia/pauses) and eliquis -CTM on tele given bradycardia/pauses->remdesivir d/c'd * Assessment & Plan Note - Joann Lyon NP - 06/01/2022 8:19 AM CDT Associated Problem(s): STARR on CPAP CPAP at night-home unit brought in by daughter. Encourage nightly use. * Assessment & Plan Note - Joann Lyon NP - 06/01/2022 8:18 AM CDT Associated Problem(s): COVID-19 (Resolved 07/03/2022) Symptomatic with lethargy, leg swelling, and cough. -Tested + on 05/22/22 at [facility] (external result entered and pic of result in media tab) -s/p remdesivir x2 days for high risk->stopped for bradycardia/pauses w/HR 30-40 yesterday -may be able to lift COVID isolation ~06/02, IP aware * Assessment & Plan Note - Joann Lyon NP - 06/01/2022 8:18 AM CDT Associated Problem(s): Chronic respiratory failure with hypoxia (CMS/HCC) ([facility]) -2/2 ILD, STARR -Continuous pulse ox while with COVID. -Remains at baseline 2L at rest, 4L with exertion. -cont home prednisone, holding abetacept while acutely ill -cont CPAP at night * Assessment & Plan Note - Joann Lyon NP - 06/01/2022 8:17 AM CDT Associated Problem(s): Pneumonia due to infectious organism (Resolved 06/11/2022) Reports two weeks of productive green sputum after eating that is new. 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 Completed 7 total days of antibiotics (Azith, CTX) on 05/29. -pulm status at baseline * Assessment & Plan Note - Joann Lyon NP - 06/01/2022 8:16 AM CDT Associated Problem(s): UTI (urinary tract infection) due to Enterococcus (Resolved 06/07/2022) -pt with Hx chronic UTis, on trimethoprim chronically->follows outpatient with Urology -UA with 3+ leukocytes, 3+ blood, 2+ bacteria, RBCs 11-20, >50 WBCs, patient denies symptoms, remains asx -WBC ~10, remains afebrile -Urine culture Greater than or equal to 100,000 colonies/mL of Enterococcus faecium -Sensitivities reviewed -Start Linezolid 600mg po BID, plan 7 days. Holding Zoloft while on Linezolid (avoid serotonin syndrome) * Assessment & Plan Note - Joann Lyon NP - 06/01/2022 8:15 AM CDT Associated Problem(s): Acute on chronic heart failure (CMS/HCC) (HCC) (Resolved 06/07/2022) 2/2 dietary indiscretion vs COVID or bacterial pneumonia. -Diuresed with IV lasix, now euvolemic->back on home 60mg po Lasix 05/30 -stable pulm status on home oxygen need (2L at rest, 4L with activity) -continue home metop (dose decreased for bradycardia) -last TTE 12/2021 per outside notes with EF 55-60% -strict I/o, daily weights (down ~3 kg since admit) * Plan of Care - Missy Davidson RN - 06/01/2022 7:27 AM CDT Goals: Clinical Goals for the Shift: VS, mobility, comfort, safety Summary: Patient's VS stable, patient on 2L satting 95-100%. No complaints of pain. Patient sat up in chair for 4.5 hours today. Incentive spirometer at bedside, goal of 1500, tolerating well. Wound care performed to breast folds, amaya folds, and amaya area. Updated patient on plan of care, verbalized understanding. Problem: Activity: Goal: Mobility will improve Outcome: Progressing Problem: Lack of Knowledge: Goal: Understanding of ways to prevent future skin breakdown will improve Outcome: Progressing Problem: Nutritional: Goal: Dietary intake will improve Outcome: Progressing Problem: Skin Integrity: Goal: Risk for impaired skin integrity will decrease Outcome: Progressing Goal: Ability to demonstrate warm and dry skin will improve Outcome: Progressing Problem: Activity: Goal: Risk for activity intolerance will decrease Outcome: Progressing Problem: Lack of Knowledge: Goal: Knowledge of diagnostic tests will improve Outcome: Progressing Goal: Knowledge of disease or condition will improve Outcome: Progressing Goal: Knowledge of the prescribed therapeutic regimen will improve Outcome: Progressing Problem: Health Behavior: Goal: Ability to state signs and symptoms to report to health care provider will improve Outcome: Progressing * Plan of Care - Luisa Fermin RN - 06/01/2022 6:59 AM CDT Goals: Clinical Goals for the Shift: VS, pain control, isolation Summary: Problem: Activity: Goal: Mobility will improve Outcome: Progressing Problem: Lack of Knowledge: Goal: Understanding of ways to prevent future skin breakdown will improve Outcome: Progressing Goal: Ability to identify appropriate dietary choices will improve Outcome: Progressing Problem: Nutritional: Goal: Dietary intake will improve Outcome: Progressing Goal: Ability to maintain a balanced intake and output will improve Outcome: Progressing Problem: Skin Integrity: Goal: Risk for impaired skin integrity will decrease Outcome: Progressing Goal: Ability to demonstrate warm and dry skin will improve Outcome: Progressing Goal: Circulation will improve to fullest extent possible Outcome: Progressing Problem: Activity: Goal: Risk for activity intolerance will decrease Outcome: Progressing Problem: Lack of Knowledge: Goal: Knowledge of diagnostic tests will improve Outcome: Progressing Goal: Knowledge of disease or condition will improve Outcome: Progressing Goal: Knowledge of safety precautions will improve Outcome: Progressing Goal: Knowledge of the prescribed therapeutic regimen will improve Outcome: Progressing Problem: Health Behavior: Goal: Ability to state signs and symptoms to report to health care provider will improve Outcome: Progressing Problem: Physical Regulation: Goal: Ability to maintain clinical measurements within normal limits will improve Outcome: Progressing Problem: Infection Risk: Goal: Will remain free from infection Outcome: Progressing Problem: Safety: Goal: Ability to remain free from injury will improve Outcome: Progressing Goal: Will remain free from falls Outcome: Progressing Problem: Self-Care: Goal: Ability to participate in self-care as condition permits will improve Outcome: Progressing Problem: Sensory: Goal: Pain level will decrease Outcome: Progressing Goal: Ability to develop a pain control plan will improve Outcome: Progressing Problem: Skin Integrity: Goal: Risk for impaired skin integrity will decrease Outcome: Progressing Problem: Tissue Perfusion: Goal: Risk factors for ineffective tissue perfusion will decrease Outcome: Progressing Problem: Lack of Knowledge: Goal: Knowledge of risk factors and measures for prevention of condition will improve Outcome: Progressing Problem: Coping: Goal: Psychosocial and spiritual needs will be supported Outcome: Progressing Problem: Physical Regulation: Goal: Spread of further infection will be prevented Outcome: Progressing Problem: Respiratory: Goal: Will maintain a patent airway Outcome: Progressing Goal: Complications related to the disease process, condition or treatment will be avoided or minimized Outcome: Progressing Problem: Lack of Knowledge: Goal: Ability to develop a pain control plan will improve Outcome: Progressing Goal: Ability to identify pain intensity on a pain scale and rate it consistently will improve Outcome: Progressing Goal: Ability to notify healthcare provider of pain before it becomes unmanageable or unbearable will improve Outcome: Progressing Problem: Medication: Goal: Satisfaction with pain management regimen will improve Outcome: Progressing Problem: Sensory: Goal: Ability to identify factors that increase the pain will improve Outcome: Progressing Goal: Pain level will decrease Outcome: Progressing Problem: Lack of Knowledge: Goal: Ability to state ways to decrease the risk of falls will improve Outcome: Progressing Problem: Safety: Goal: Will remain free from falls Outcome: Progressing Goal: Will remain free from injury from falls Outcome: Progressing Goal: Will remain free from falls and injury in home environment Outcome: Progressing Problem: Health Behavior: Goal: Understanding of discharge needs will improve Outcome: Progressing * Assessment & Plan Note - Joann Lyon NP - 05/31/2022 5:12 PM CDT Associated Problem(s): UTI (urinary tract infection) due to Enterococcus (Resolved 06/07/2022) -pt with Hx chronic UTis, on trimethoprim chronically->follows outpatient with Urology -UA with 3+ leukocytes, 3+ blood, 2+ bacteria, RBCs 11-20, >50 WBCs, patient denies symptoms, remains asx -WBC ~10, afebrile -Urine culture Greater than or equal to 100,000 colonies/mL of Enterococcus faecium -Sensitivities pending -Given lack of symptoms and HD stability, will defer antibx pending final sensitivity results * Assessment & Plan Note - Joann Lyon NP - 05/31/2022 5:11 PM CDT Associated Problem(s): Rib fracture (Resolved 07/03/2022) Tramadol prn. miralax daily prn. Incentive spirometer. -mobilize as able-rehab/SNF at discharge->will need new referrals as patient & daughter do not want her going back to prior facility. PT/OT evals completed today-rec SNF * Assessment & Plan Note - Joann Lyon NP - 05/31/2022 5:11 PM CDT Associated Problem(s): Rheumatoid arthritis (HCC) holding abatacept. Continued plaquenil * Assessment & Plan Note - Joann Lyon NP - 05/31/2022 5:11 PM CDT Associated Problem(s): Longstanding persistent atrial fibrillation (CMS/HCC) ([facility]) -Chronic, on home metoprolol (dose decreased for persistent bradycardia/pauses) and eliquis -CTM on tele given bradycardia/pauses->remdesivir d/c'd * Assessment & Plan Note - Joann Lyon NP - 05/31/2022 5:11 PM CDT Associated Problem(s): STARR on CPAP CPAP at night-home unit brought in by daughter. Encourage nightly use. * Assessment & Plan Note - Joann Lyon NP - 05/31/2022 5:08 PM CDT Associated Problem(s): COVID-19 (Resolved 07/03/2022) Symptomatic with lethargy, leg swelling, and cough. -Tested + on 05/22/22 at [facility] (external result entered and pic of result in media tab) -s/p remdesivir x2 days for high risk->stopped for bradycardia/pauses w/HR 30-40 yesterday * Assessment & Plan Note - Joann Lyon NP - 05/31/2022 5:08 PM CDT Associated Problem(s): Chronic respiratory failure with hypoxia (CMS/HCC) ([facility]) -2/2 ILD, STARR -Continuous pulse ox while with COVID. -Remains at baseline 2L at rest, 4L with exertion. -cont home prednisone, holding abetacept while acutely ill -CPAP at night * Assessment & Plan Note - Joann Lyon NP - 05/31/2022 5:08 PM CDT Associated Problem(s): Pneumonia due to infectious organism (Resolved 06/11/2022) Reports two weeks of productive green sputum after eating that is new. Appears to have been startedon cefdinir for PNA and UTI at OSH starting 05/22. Completed 7 total days of antibiotics (Azith, CTX) on 05/29. * Assessment & Plan Note - Joann Lyon NP - 05/31/2022 5:06 PM CDT Associated Problem(s): Acute on chronic heart failure (CMS/HCC) (HCC) (Resolved 06/07/2022) 2/ dietary indiscretion vs COVID or bacterial pneumonia. -Diuresed with IV lasix, now euvolemic->back on home 60mg po Lasix 05/30 -stable pulm status on home oxygen need -continue home metop (dose decreased for bradycardia) -last TTE 12/2021 per outside notes with EF 55-60% -strict I/o, daily weights * Subjective & Objective - Joann Lyon NP - 05/31/2022 5:02 PM CDT Daily Progress Note Division of Hospital Medicine Name: Ayanna Gibbs Today: May 31, 2022 : 1950 Age: 72 y.o. female Admit: 05/27/2022 Bed: [id number] Subjective Chief complaint: Volume Overload, SOB Interval History: Breathing remains at baseline oxygen needs. Worked well with therapies today. Hx frequent UTIs with dirty UA, asx at present. Objective Medications: Scheduled: apixaban, 5 mg, oral, Q12H DELFIN cholecalciferol, 1,000 Units, oral, Daily cholestyramine-aspartame, 1 packet, oral, Daily - 0600 cyanocobalamin, 2,000 mcg, oral, Daily furosemide, 60 mg, oral, Daily hydrOXYchloroQUINE, 200 mg, oral, BID levothyroxine, 112 mcg, oral, Daily metoprolol XL, 100 mg, oral, Daily pravastatin, 80 mg, oral, Daily predniSONE, 15 mg, oral, QAM sertraline, 50 mg, oral, Daily trimethoprim, 100 mg, oral, Nightly umeclidinium-vilanteroL, 1 puff, inhalation, Daily Infusions: PRN: acetaminophen albuterol HFA polyethylene glycol ramelteon traMADoL Vitals: 24hr Min/Max: Temp Min: 36.4 ??C (97.6 ??F) Max: 36.7 ??C (98 ??F) Pulse Min: 56 Max: 77 BP Min: 107/80 Max: 135/67 Resp Min: 16 Max: 18 SpO2 Min: 96 % Max: 98 % Most Recent: Vitals: 05/31/22 1515 BP: 128/54 Pulse: 65 Resp: 18 Temp: 36.7 ??C (98 ??F) SpO2: 98% 2L Telemetry review: A-fib with occasional pauses, max pause 1.5sec today Intake/Output Summary (Last 24 hours) at 05/31/2022 1702 Last data filed at 05/31/2022 1550 Gross per 24 hour Intake 922 ml Output 2200 ml Net -1278 ml Physical Exam Constitutional: NAD, well developed, obese Eyes: PERRL, EOMI, anicteric ENT: NCAT, oropharynx normal, moist mucus membranes Lungs: CTA, unlabored at rest, increased WOB with minimal activity Cardiovascular: Irreg, syd, normal S1 and S2, no murmurs, no JVD appreciated GI: Soft, non-tender, non-distended, bowel sounds +, no organomegaly Skin: No new rashes, lesions or bruises on visible skin Extremities: Trace pretibial edema bilat, no cyanosis Neurologic: AOx4, CNII-XII intact, normal strength and sensation Psychiatric: Normal affect and mood, euthymic Lab/Diagnostic Review: Recent Results (from the past 36 hour(s)) Urinalysis reflex to microscopic and culture Urine, clean voided Collection Time: 05/30/22 9:19 AM Specimen: Urine, clean voided Result Value Ref Range Color, ur Straw Yellow Clarity, ur Clear Clear Specific gravity, ur 1.024 1.003 - 1.030 pH, urine 6.0 Protein, ur ql 1+ (A) Negative Glucose, ur ql Negative Negative Ketones, ur Negative Negative Bilirubin, ur Negative Negative Blood, ur 3+ (A) Negative Urobilinogen, ur <2.0 <2.0 mg/dL Nitrite, ur Negative Negative Leukocyte esterase, ur 3+ (A) Negative UA reflex comment Reflex to microscopic UA will be performed. Urinalysis, microscopic only Collection Time: 05/30/22 9:19 AM Result Value Ref Range WBC, ur >50 (A) 0 - 5 /HPF RBC, ur 11-20 (A) 0 - 2 /HPF Epithelial cells, squamous, ur 1-5 0 - 5 /HPF Bacteria, ur 2+ (A) Hyaline casts, ur 1-5 0 - 10 /LPF Culture Reflex Comment Reflex to urine culture will be performed. Urine culture Urine, clean voided Collection Time: 05/30/22 9:19 AM Specimen: Urine, clean voided Result Value Ref Range Report (.) Preliminary Report: Greater than or equal to 100,000 colonies/mL of Enterococcus faecium Susceptibility testing results to follow. Organism ENTEROCOCCUS FAECIUM Basic metabolic panel Collection Time: 05/30/22 9:54 PM Result Value Ref Range Sodium 141 135 - 145 mmol/L Potassium, pl 4.5 3.3 - 4.9 mmol/L Chloride 102 97 - 110 mmol/L CO2 32 22 - 32 mmol/L Anion gap 7 2 - 15 mmol/L BUN 40 (H) 8 - 25 mg/dL Creatinine 1.65 (H) 0.60 - 1.10 mg/dL Glucose 109 70 - 199 mg/dL Calcium 9.4 8.5 - 10.3 mg/dL CBC with auto differential Collection Time: 05/30/22 9:54 PM Result Value Ref Range WBC 10.2 (H) 3.8 - 9.9 K/cumm Hgb 11.0 (L) 11.9 - 15.5 g/dL Hct 35.0 (L) 35.6 - 45.5 % Plt 264 150 - 400 K/cumm MPV 10.7 9.1 - 12.3 fL RBC 3.60 (L) 3.90 - 5.20 M/cumm MCV 97.2 (H) 81.3 - 96.4 fL MCH 30.6 27.1 - 33.3 pg MCHC 31.4 (L) 32.3 - 35.7 g/dL RDW CV 12.7 11.1 - 14.9 % RDW SD 45.0 35.7 - 48.1 fL NRBC abs 0.00 0.00 - 0.01 K/cumm Magnesium Collection Time: 05/30/22 9:54 PM Result Value Ref Range Magnesium 2.0 1.4 - 2.5 mg/dL Differential, auto Collection Time: 05/30/22 9:54 PM Result Value Ref Range Neutrophil abs 7.8 (H) 1.7 - 6.5 K/cumm Imm gran abs 0.1 0.0 - 0.1 K/cumm Lymphocyte abs 1.1 0.8 - 3.3 K/cumm Monocyte abs 1.0 (H) 0.2 - 0.8 K/cumm Eosinophil abs 0.0 0.0 - 0.5 K/cumm Basophil abs 0.0 0.0 - 0.1 K/cumm Neutrophil pct 77.2 % Imm gran pct 0.8 % Lymphocyte pct 11.2 % Monocyte pct 10.2 % Eosinophil pct 0.4 % Basophil pct 0.2 % eGFR Collection Time: 05/30/22 9:54 PM Result Value Ref Range eGFR 32 (L) 90 - 130 mL/min/1.73 m2 I have reviewed the laboratory results. Imaging Results: ECG 12 lead Gene Nails MD 05/27/2022 3:56 PM ECG [...] ED XR Chest Pa Lateral 2 Vw Narrative: EXAMINATION: 2 view chest radiograph Impression: [...] this written report and agrees with it. * Plan of Care - Hugo Reyna RN - 05/31/2022 12:30 PM CDT CM emailed TILA Gibbs a list of SNF options. Email: [email or web address] to review options and call CM with choices. * Plan of Care - Elle Toth RN - 05/31/2022 11:01 AM CDT Problem: Activity: Goal: Mobility will improve Outcome: Progressing Problem: Lack of Knowledge: Goal: Understanding of ways to prevent future skin breakdown will improve Outcome: Progressing Goal: Ability to identify appropriate dietary choices will improve Outcome: Progressing Problem: Nutritional: Goal: Dietary intake will improve Outcome: Progressing Goal: Ability to maintain a balanced intake and output will improve Outcome: Progressing Problem: Skin Integrity: Goal: Risk for impaired skin integrity will decrease Outcome: Progressing Goal: Ability to demonstrate warm and dry skin will improve Outcome: Progressing Goal: Circulation will improve to fullest extent possible Outcome: Progressing Problem: Activity: Goal: Risk for activity intolerance will decrease Outcome: Progressing Problem: Lack of Knowledge: Goal: Knowledge of diagnostic tests will improve Outcome: Progressing Goal: Knowledge of disease or condition will improve Outcome: Progressing Goal: Knowledge of safety precautions will improve Outcome: Progressing Goal: Knowledge of the prescribed therapeutic regimen will improve Outcome: Progressing Problem: Health Behavior: Goal: Ability to state signs and symptoms to report to health care provider will improve Outcome: Progressing Problem: Physical Regulation: Goal: Ability to maintain clinical measurements within normal limits will improve Outcome: Progressing Problem: Infection Risk: Goal: Will remain free from infection Outcome: Progressing Problem: Safety: Goal: Ability to remain free from injury will improve Outcome: Progressing Goal: Will remain free from falls Outcome: Progressing Problem: Sensory: Goal: Pain level will decrease Outcome: Progressing Goal: Ability to develop a pain control plan will improve Outcome: Progressing Problem: Skin Integrity: Goal: Risk for impaired skin integrity will decrease Outcome: Progressing Problem: Tissue Perfusion: Goal: Risk factors for ineffective tissue perfusion will decrease Outcome: Progressing Problem: Coping: Goal: Psychosocial and spiritual needs will be supported Outcome: Progressing Problem: Physical Regulation: Goal: Spread of further infection will be prevented Outcome: Progressing Problem: Respiratory: Goal: Will maintain a patent airway Outcome: Progressing Goal: Complications related to the disease process, condition or treatment will be avoided or minimized Outcome: Progressing Problem: Lack of Knowledge: Goal: Ability to develop a pain control plan will improve Outcome: Progressing Goal: Ability to identify pain intensity on a pain scale and rate it consistently will improve Outcome: Progressing Goal: Ability to notify healthcare provider of pain before it becomes unmanageable or unbearable will improve Outcome: Progressing Problem: Sensory: Goal: Ability to identify factors that increase the pain will improve Outcome: Progressing Goal: Pain level will decrease Outcome: Progressing Problem: Lack of Knowledge: Goal: Ability to state ways to decrease the risk of falls will improve Outcome: Progressing Problem: Safety: Goal: Will remain free from falls Outcome: Progressing Goal: Will remain free from injury from falls Outcome: Progressing Goal: Will remain free from falls and injury in home environment Outcome: Progressing Problem: Health Behavior: Goal: Understanding of discharge needs will improve Outcome: Progressing Goals: Clinical Goals for the Shift: VS, pain control, isolation Summary: Patient is progressing towards goals. * Provider Query - Jaonn Lyon NP - 05/31/2022 7:23 AM CDT How to answer a query: Click on Encounter, found above the query, to open the patient's chart Query will populate on the right hand sidebar, under To Do Click on Respond with New Note Click on New Note Answer query that auto-populates by placing an X next to the appropriate choice and/or enter a response under the Additional Provider Response field Click on Sign Please note: A query cannot be signed unless the 3 asterisks/wild card (*) are either removed or replaced with text. Please see contact information below and reach out if you have any questions. Specify the patient???s Renal Status and document in the medical record and on the form below. ___Acute Renal Failure ___Acute Renal Failure on Chronic Kidney Disease (CKD), specify stage below __X_Chronic Kidney Disease (CKD), specify stage below ___Findings clinically insignificant ___Other, specify below ___Clinically unable to determine Additional Provider Response: Stage 3b Clinical Indicators/Treatments: Pt p/w abn renal labs: & on Lasix 05/27 LABS: Bun 49, Cr 1.31 05/28 LABS: Bun 49, Cr 1.31 w eGFR 43 Tx: Labs, Monitoring, Strict I&Os National Kid[employer] KDIGO Conference Definition of MIKE MIKE Any of the following: Increase in SCr by >=0.3 mg/dl within 48 hours* Increase in SCr to >=1.5 times baseline, which is known or presumed to have occurred within the prior 7 days Urine volume < 0.5 ml/kg/h for 6 hours *Once the creatinine is above 3 mg/dL, the SCr increase by >=0.3 becomes less significant If provider believes patient has MIKE in the absence of above clinical indicators, please document rationale and clinical impression in detail CKD stage Definition (National Kidney Disease Foundation) Stage 1: GFR greater than or equal to 90 Stage 2: GFR 60-89 Stage 3: GFR 30-59 Stage 3a: GFR 45-59 Stage 3b: GFR 30-44 Stage 4: GFR 15-29 Stage 5: GFR less than 15 or Dialysis Use of terms such as likely, suspected, possible, or probable (associated with a specific diagnosisthat is being evaluated, monitored, or treated as if it exists) are acceptable and can be coded in the inpatient setting when documented at the time of discharge. This documentation will become part of the patient???s medical record. Sincerely, Shaniqua Velasquez [facility] Health Information Management [phone] * Plan of Care - Luisa Fermin RN - 05/31/2022 6:27 AM CDT Problem: Activity: Goal: Mobility will improve Outcome: Progressing Problem: Lack of Knowledge: Goal: Understanding of ways to prevent future skin breakdown will improve Outcome: Progressing Goal: Ability to identify appropriate dietary choices will improve Outcome: Progressing Problem: Nutritional: Goal: Dietary intake will improve Outcome: Progressing Goal: Ability to maintain a balanced intake and output will improve Outcome: Progressing Problem: Skin Integrity: Goal: Risk for impaired skin integrity will decrease Outcome: Progressing Goal: Ability to demonstrate warm and dry skin will improve Outcome: Progressing Goal: Circulation will improve to fullest extent possible Outcome: Progressing Problem: Activity: Goal: Risk for activity intolerance will decrease Outcome: Progressing Problem: Lack of Knowledge: Goal: Knowledge of diagnostic tests will improve Outcome: Progressing Goal: Knowledge of disease or condition will improve Outcome: Progressing Goal: Knowledge of safety precautions will improve Outcome: Progressing Goal: Knowledge of the prescribed therapeutic regimen will improve Outcome: Progressing Problem: Health Behavior: Goal: Ability to state signs and symptoms to report to health care provider will improve Outcome: Progressing Problem: Physical Regulation: Goal: Ability to maintain clinical measurements within normal limits will improve Outcome: Progressing Problem: Infection Risk: Goal: Will remain free from infection Outcome: Progressing Problem: Safety: Goal: Ability to remain free from injury will improve Outcome: Progressing Goal: Will remain free from falls Outcome: Progressing Problem: Self-Care: Goal: Ability to participate in self-care as condition permits will improve Outcome: Progressing Problem: Sensory: Goal: Pain level will decrease Outcome: Progressing Goal: Ability to develop a pain control plan will improve Outcome: Progressing Problem: Skin Integrity: Goal: Risk for impaired skin integrity will decrease Outcome: Progressing Problem: Tissue Perfusion: Goal: Risk factors for ineffective tissue perfusion will decrease Outcome: Progressing Problem: Lack of Knowledge: Goal: Knowledge of risk factors and measures for prevention of condition will improve Outcome: Progressing Problem: Coping: Goal: Psychosocial and spiritual needs will be supported Outcome: Progressing Problem: Physical Regulation: Goal: Spread of further infection will be prevented Outcome: Progressing Problem: Respiratory: Goal: Will maintain a patent airway Outcome: Progressing Goal: Complications related to the disease process, condition or treatment will be avoided or minimized Outcome: Progressing Problem: Lack of Knowledge: Goal: Ability to develop a pain control plan will improve Outcome: Progressing Goal: Ability to identify pain intensity on a pain scale and rate it consistently will improve Outcome: Progressing Goal: Ability to notify healthcare provider of pain before it becomes unmanageable or unbearable will improve Outcome: Progressing Problem: Medication: Goal: Satisfaction with pain management regimen will improve Outcome: Progressing Problem: Sensory: Goal: Ability to identify factors that increase the pain will improve Outcome: Progressing Goal: Pain level will decrease Outcome: Progressing Problem: Lack of Knowledge: Goal: Ability to state ways to decrease the risk of falls will improve Outcome: Progressing Problem: Safety: Goal: Will remain free from falls Outcome: Progressing Goal: Will remain free from injury from falls Outcome: Progressing Goal: Will remain free from falls and injury in home environment Outcome: Progressing Problem: Health Behavior: Goal: Understanding of discharge needs will improve Outcome: Progressing Goals: Clinical Goals for the Shift: VS, pain control, isolation Summary: * Plan of Care - Lesly Elias RRT - 05/30/2022 3:14 PM CDT Pt ordered on Anoro Every day. Colton well, with good technique. Will continue with current schedule, but turn over to Rn administration. * Plan of Care - Shraddha Cardenas RN - 05/30/2022 3:12 PM CDT Problem: Activity: Goal: Mobility will improve Outcome: Progressing Problem: Lack of Knowledge: Goal: Understanding of ways to prevent future skin breakdown will improve Outcome: Progressing Problem: Nutritional: Goal: Dietary intake will improve Outcome: Progressing Goals: Clinical Goals for the Shift: VS, pain control, isolation Summary: Patient is working with PT and transferring more easily, patient is on an airbed and interdry applied, now consuming at least % of meals. * Subjective & Objective - Joann Lyon NP - 05/30/2022 1:49 PM CDT Daily Progress Note Division of Hospital Medicine Name: Ayanna Gibbs Today: May 30, 2022 : 1950 Age: 72 y.o. female Admit: 05/27/2022 Bed: [id number] Subjective Chief complaint: Volume overload, SOB Interval History: Pulm status back to baseline O2 requirement. Asx bradycardia/pauses (up to 2.0 sec) overnight. Awaits PT/OT evals. Objective Medications: Scheduled: apixaban, 5 mg, oral, Q12H EDLFIN cholecalciferol, 1,000 Units, oral, Daily cholestyramine-aspartame, 1 packet, oral, Daily - 0600 cyanocobalamin, 2,000 mcg, oral, Daily furosemide, 60 mg, oral, Daily hydrOXYchloroQUINE, 200 mg, oral, BID levothyroxine, 112 mcg, oral, Daily [START ON 05/31/2022] metoprolol XL, 100 mg, oral, Daily pravastatin, 80 mg, oral, Daily predniSONE, 15 mg, oral, QAM sertraline, 50 mg, oral, Daily trimethoprim, 100 mg, oral, Nightly umeclidinium-vilanteroL, 1 puff, inhalation, Daily (RT) Infusions: PRN: acetaminophen albuterol HFA polyethylene glycol ramelteon traMADoL Vitals: 24hr Min/Max: Temp Min: 36.3 ??C (97.3 ??F) Max: 36.8 ??C (98.2 ??F) Pulse Min: 60 Max: 73 BP Min: 113/61 Max: 135/88 Resp Min: 16 Max: 18 SpO2 Min: 94 % Max: 97 % Most Recent: Vitals: 05/30/22 0939 BP: 135/88 Pulse: 68 Resp: 18 Temp: 36.7 SpO2: 94% 2L Intake/Output Summary (Last 24 hours) at 05/30/2022 1349 Last data filed at 05/30/2022 0900 Gross per 24 hour Intake 600 ml Output 1600 ml Net -1000 ml Physical Exam Constitutional: NAD, well developed, obese Eyes: PERRL, EOMI, anicteric ENT: NCAT, oropharynx normal, moist mucus membranes Lungs: CTA, unlabored at rest, increased WOB with minimal activity Cardiovascular: Irreg, syd, normal S1 and S2, no murmurs, no JVD appreciated GI: Soft, non-tender, non-distended, bowel sounds +, no organomegaly Skin: No new rashes, lesions or bruises on visible skin Extremities: Trace pretibial edema bilat, no cyanosis Neurologic: AOx4, CNII-XII intact, normal strength and sensation Psychiatric: Normal affect and mood, euthymic Lab/Diagnostic Review: Recent Results (from the past 36 hour(s)) Basic metabolic panel Collection Time: 05/29/22 9:28 PM Result Value Ref Range Sodium 140 135 - 145 mmol/L Potassium, pl 4.2 3.3 - 4.9 mmol/L Chloride 100 97 - 110 mmol/L CO2 31 22 - 32 mmol/L Anion gap 9 2 - 15 mmol/L BUN 44 (H) 8 - 25 mg/dL Creatinine 1.52 (H) 0.60 - 1.10 mg/dL Glucose 109 70 - 199 mg/dL Calcium 9.0 8.5 - 10.3 mg/dL CBC with auto differential Collection Time: 05/29/22 9:28 PM Result Value Ref Range WBC 10.6 (H) 3.8 - 9.9 K/cumm Hgb 10.3 (L) 11.9 - 15.5 g/dL Hct 33.3 (L) 35.6 - 45.5 % Plt 230 150 - 400 K/cumm MPV 10.8 9.1 - 12.3 fL RBC 3.39 (L) 3.90 - 5.20 M/cumm MCV 98.2 (H) 81.3 - 96.4 fL MCH 30.4 27.1 - 33.3 pg MCHC 30.9 (L) 32.3 - 35.7 g/dL RDW CV 12.7 11.1 - 14.9 % RDW SD 45.5 35.7 - 48.1 fL NRBC abs 0.00 0.00 - 0.01 K/cumm Hepatic function panel Collection Time: 05/29/22 9:28 PM Result Value Ref Range Bilirubin, total 0.3 0.1 - 1.2 mg/dL Bilirubin, direct <0.2 0.1 - 0.3 mg/dL Protein, pl 5.8 (L) 6.5 - 8.5 g/dL Albumin 3.3 (L) 3.5 - 5.0 g/dL Alk phos 100 40 - 130 Units/L ALT 21 7 - 45 Units/L AST 26 10 - 45 Units/L Magnesium Collection Time: 05/29/22 9:28 PM Result Value Ref Range Magnesium 2.2 1.4 - 2.5 mg/dL Differential, auto Collection Time: 05/29/22 9:28 PM Result Value Ref Range Neutrophil abs 8.7 (H) 1.7 - 6.5 K/cumm Imm gran abs 0.1 0.0 - 0.1 K/cumm Lymphocyte abs 1.0 0.8 - 3.3 K/cumm Monocyte abs 0.8 0.2 - 0.8 K/cumm Eosinophil abs 0.0 0.0 - 0.5 K/cumm Basophil abs 0.0 0.0 - 0.1 K/cumm Neutrophil pct 82.0 % Imm gran pct 0.8 % Lymphocyte pct 9.1 % Monocyte pct 7.6 % Eosinophil pct 0.3 % Basophil pct 0.2 % eGFR Collection Time: 05/29/22 9:28 PM Result Value Ref Range eGFR 36 (L) 90 - 130 mL/min/1.73 m2 Urinalysis reflex to microscopic and culture Urine, clean voided Collection Time: 05/30/22 9:19 AM Specimen: Urine, clean voided Result Value Ref Range Color, ur Straw Yellow Clarity, ur Clear Clear Specific gravity, ur 1.024 1.003 - 1.030 pH, urine 6.0 Protein, ur ql 1+ (A) Negative Glucose, ur ql Negative Negative Ketones, ur Negative Negative Bilirubin, ur Negative Negative Blood, ur 3+ (A) Negative Urobilinogen, ur <2.0 <2.0 mg/dL Nitrite, ur Negative Negative Leukocyte esterase, ur 3+ (A) Negative UA reflex comment Reflex to microscopic UA will be performed. Urinalysis, microscopic only Collection Time: 05/30/22 9:19 AM Result Value Ref Range WBC, ur >50 (A) 0 - 5 /HPF RBC, ur 11-20 (A) 0 - 2 /HPF Epithelial cells, squamous, ur 1-5 0 - 5 /HPF Bacteria, ur 2+ (A) Hyaline casts, ur 1-5 0 - 10 /LPF Culture Reflex Comment Reflex to urine culture will be performed. I have reviewed the laboratory results. Imaging Results: ECG 12 lead Gene Nails MD 05/27/2022 3:56 PM ECG 12 lead Date/Time: 05/27/2022 3:52 PM Performed by: Gene Nails MD Authorized by: Luis Fernando oGmez MD Rate: ECG rate: 59 beats per [...] ED XR Chest Pa Lateral 2 Vw Narrative: EXAMINATION: 2 view chest radiograph Impression: [...] this written report and agrees with it. * Plan of Care - Hugo Reyna RN - 05/30/2022 1:47 PM CDT Per Medical Chart/Rounds/DCAM: not medically ready for discharge ADD: 06/01 Plan & referrals made/in place: Needing PT/OT evals. Then will make referrals as needed. POA lizzieBrian Shailesh and anticipating placement Support following discharge: daughter/POA (Brian) Transportation: EMS F/U Appointments: Placement anticipated Patient's Identified Problem/Goal Problem: Ensure acute medical needs are met and that patient has a safe discharge plan. Goal: Secure a discharge plan that patient/family are agreeable with and ensure patient has continuum of care. Patient and/or family are agreeable with plan. senior portfolio manager will continue to follow and assist with discharge planning as needed. If any further discharge needs arise, please contact the covering watch caser. * Assessment & Plan Note - Joann Lyon NP - 05/30/2022 8:32 AM CDT Associated Problem(s): Rib fracture (Resolved 07/03/2022) Tramadol prn. miralax daily prn. Incentive spirometer. -mobilize as able-rehab/SNF at discharge->will need new referrals as patient & daughter do not want her going back to prior facility. PT/OT evals pending * Assessment & Plan Note - Joann Lyon NP - 05/30/2022 8:32 AM CDT Associated Problem(s): Rheumatoid arthritis (HCC) holding abatacept. Continued plaquenil * Assessment & Plan Note - Joann Lyon NP - 05/30/2022 8:32 AM CDT Associated Problem(s): Longstanding persistent atrial fibrillation (CMS/HCC) (HCC) -Chronic, on home metoprolol (dose decreased for persistent bradycardia/pauses) and eliquis -CTM on tele given bradycardia/pauses->remdesivir d/c'd * Assessment & Plan Note - Joann Lyon NP - 05/30/2022 8:31 AM CDT Associated Problem(s): STARR on CPAP CPAP at night-home unit brought in by daughter. Encourage nightly use * Assessment & Plan Note - Joann Lyon NP - 05/30/2022 8:31 AM CDT Associated Problem(s): COVID-19 (Resolved 07/03/2022) Symptomatic with lethargy, leg swelling, and cough. -s/p remdesivir x2 days for high risk->stopped for bradycardia/pauses w/HR 30-40 yesterday * Assessment & Plan Note - Joann Lyon NP - 05/30/2022 8:31 AM CDT Associated Problem(s): Chronic respiratory failure with hypoxia (CMS/HCC) (HCC) Continuous pulse ox while with COVID. -Remains at baseline 2L at rest, 4L with exertion. * Assessment & Plan Note - Joann Lyon NP - 05/30/2022 8:30 AM CDT Associated Problem(s): Pneumonia due to infectious organism (Resolved 06/11/2022) Reports two weeks of productive green sputum after eating that is new. Appears to have been startedon cefdinir for PNA and UTI at OSH starting 05/22. Completed 7 total days of antibiotics (Azith, CTX) 05/29. * Assessment & Plan Note - Joann Lyon NP - 05/30/2022 8:30 AM CDT Associated Problem(s): Acute on chronic heart failure (CMS/HCC) (HCC) (Resolved 06/07/2022) 12/27 dietary indiscretion vs COVID or bacterial pneumonia. No standing weights recorded, still with some LE edema but on stable O2 - 40mg IV lasix yesterday, now well diuresed->can transition back to home 60mg po Lasix -continue home metop (dose decreased for bradycardia) -last TTE 12/2021 per outside notes with EF 55-60% -strict I/o, daily weights * Plan of Care - Luisa Fermin RN - 05/30/2022 5:45 AM CDT Goals: Clinical Goals for the Shift: VS, medications, safety, isolation Summary: Problem: Activity: Goal: Mobility will improve Outcome: Progressing Problem: Lack of Knowledge: Goal: Understanding of ways to prevent future skin breakdown will improve Outcome: Progressing Goal: Ability to identify appropriate dietary choices will improve Outcome: Progressing Problem: Nutritional: Goal: Dietary intake will improve Outcome: Progressing Goal: Ability to maintain a balanced intake and output will improve Outcome: Progressing Problem: Skin Integrity: Goal: Risk for impaired skin integrity will decrease Outcome: Progressing Goal: Ability to demonstrate warm and dry skin will improve Outcome: Progressing Goal: Circulation will improve to fullest extent possible Outcome: Progressing Problem: Activity: Goal: Risk for activity intolerance will decrease Outcome: Progressing Problem: Lack of Knowledge: Goal: Knowledge of diagnostic tests will improve Outcome: Progressing Goal: Knowledge of disease or condition will improve Outcome: Progressing Goal: Knowledge of safety precautions will improve Outcome: Progressing Goal: Knowledge of the prescribed therapeutic regimen will improve Outcome: Progressing Problem: Health Behavior: Goal: Ability to state signs and symptoms to report to health care provider will improve Outcome: Progressing Problem: Physical Regulation: Goal: Ability to maintain clinical measurements within normal limits will improve Outcome: Progressing Problem: Infection Risk: Goal: Will remain free from infection Outcome: Progressing Problem: Safety: Goal: Ability to remain free from injury will improve Outcome: Progressing Goal: Will remain free from falls Outcome: Progressing Problem: Self-Care: Goal: Ability to participate in self-care as condition permits will improve Outcome: Progressing Problem: Sensory: Goal: Pain level will decrease Outcome: Progressing Goal: Ability to develop a pain control plan will improve Outcome: Progressing Problem: Skin Integrity: Goal: Risk for impaired skin integrity will decrease Outcome: Progressing Problem: Tissue Perfusion: Goal: Risk factors for ineffective tissue perfusion will decrease Outcome: Progressing Problem: Lack of Knowledge: Goal: Knowledge of risk factors and measures for prevention of condition will improve Outcome: Progressing Problem: Coping: Goal: Psychosocial and spiritual needs will be supported Outcome: Progressing Problem: Physical Regulation: Goal: Spread of further infection will be prevented Outcome: Progressing Problem: Respiratory: Goal: Will maintain a patent airway Outcome: Progressing Goal: Complications related to the disease process, condition or treatment will be avoided or minimized Outcome: Progressing Problem: Lack of Knowledge: Goal: Ability to develop a pain control plan will improve Outcome: Progressing Goal: Ability to identify pain intensity on a pain scale and rate it consistently will improve Outcome: Progressing Goal: Ability to notify healthcare provider of pain before it becomes unmanageable or unbearable will improve Outcome: Progressing Problem: Medication: Goal: Satisfaction with pain management regimen will improve Outcome: Progressing Problem: Sensory: Goal: Ability to identify factors that increase the pain will improve Outcome: Progressing Goal: Pain level will decrease Outcome: Progressing Problem: Lack of Knowledge: Goal: Ability to state ways to decrease the risk of falls will improve Outcome: Progressing Problem: Safety: Goal: Will remain free from falls Outcome: Progressing Goal: Will remain free from injury from falls Outcome: Progressing Goal: Will remain free from falls and injury in home environment Outcome: Progressing Problem: Health Behavior: Goal: Understanding of discharge needs will improve Outcome: Progressing * [facility], Ronnie Meredith MD PhD - 05/29/2022 5:53 PM CDT Acute on chronic heart failure 2/2 dietary indiscretion vs COVID or bacterial pneumonia. IV diuresed ~3kg. Not severely decompensated. Transitioned to oral diuretics when euvolemic on 05/30. Diuretics later held for rising Cr, and restarted . The home metoprolol was dose reduced for bradycardia, with discharge dose Last TTE 12/2021 per outside notes with EF 55-60%. Strict I/o, daily weights were maintained. 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 Tramadol and miralax were offered daily prn. Incentive spirometry and early mobilitywere encouraged. She required SNF at discharge, but needed new referrals as patient & daughter did not want her going back to prior facility. Bacterial pneumonia Reported two weeks of productive green sputum prior to admission. Was started on cefdinir for PNA and UTI at OSH starting 05/22 and completed 7 total days of antibiotics (Azith, CTX) on 05/29/22. COVID-19 Symptomatic with lethargy, leg swelling, and cough. Tested + on 05/22/22 at [facility] (external result entered and pic of result in media tab). s/p remdesivir x2 days for high risk->stoppedfor bradycardia/pauses w/HR 30-40. Pulm stable on home oxygen requirement. Tested +COVID on 05/22, needs full 20 days isolation before quarantine can be lifted ~06/12 per IP Chronic respiratory failure with hypoxia 2/2 ILD, STARR, COVID. She was placed on continuous pulse ox while with COVID. She remained afebrile,HD stable on her baseline oxygen requirement of 2L at rest, 4L with exertion throughout her hospitalization. The home prednisone 15 mg was continued. STARR on CPAP CPAP at night-home unit brought in by daughter, used nightly. Rheumatoid arthritis Held abatacept (DMARD) during acute illness phase. Continued plaquenil. Paroxysmal atrial fibrillation Continued home metoprolol and eliquis and monitored on telemetry. Remdesivir dc'd due to bradycardia/pauses. Metoprolol dose reduced also to 50 mg daily due to persistent bradycardia. UTI (urinary tract infection) due to Enterococcus pt with Hx chronic UTis, on trimethoprim chronically->follows outpatient with Urology. WBC elevated to 10.6 on 05/29/22. UA with 3+ leukocytes, 3+ blood, 2+ bacteria, RBCs 11-20, >50 WBCs, patient denied symptoms, afebrile Urine culture Greater than or equal to 100,000 colonies/mL of Enterococcus faecium->Amp resistant. Started Linezolid 600mg po BID on 06/01, for 7 day course. Held Zoloft while on Linezolid (avoid serotonin syndrome). * Plan of Care - Shraddha Cardenas RN - 05/29/2022 5:17 PM CDT Problem: Activity: Goal: Mobility will improve Outcome: Progressing Problem: Lack of Knowledge: Goal: Understanding of ways to prevent future skin breakdown will improve Outcome: Progressing Problem: Nutritional: Goal: Dietary intake will improve Outcome: Progressing Goals: Clinical Goals for the Shift: VS, medications, safety, isolation Summary: Patient is working with PT to improve mobility, now on airbed, consuming at least 50% of meals. * Assessment & Plan Note - Joann Lyon NP - 05/29/2022 4:27 PM CDT Associated Problem(s): STARR on CPAP CPAP at night-home unit brought in by daughter * Assessment & Plan Note - Joann Lyon NP - 05/29/2022 4:26 PM CDT Associated Problem(s): Longstanding persistent atrial fibrillation (CMS/HCC) (HCC) c/w home metoprolol and eliquis -CTM on tele given bradycardia/pauses->remdesivir d/c'd * Assessment & Plan Note - Joann Lyon NP - 05/29/2022 4:26 PM CDT Associated Problem(s): Rheumatoid arthritis (HCC) holding abatacept. Continue plaquenil * Assessment & Plan Note - Joann Lyon NP - 05/29/2022 4:26 PM CDT Associated Problem(s): Rib fracture (Resolved 07/03/2022) Tramadol prn. miralax daily prn. Incentive spirometer. -mobilize as able-rehab/SNF at discharge->will need new referrals as patient & daughter do not want her going back to prior facility * Assessment & Plan Note - Joann Lyon NP - 05/29/2022 4:24 PM CDT Associated Problem(s): COVID-19 (Resolved 07/03/2022) Symptomatic with lethargy, leg swelling, and cough. -s/p remdesivir x2 days for high risk->stopped for bradycardia/pauses w/HR 30-40 * Assessment & Plan Note - Joann Lyon NP - 05/29/2022 4:24 PM CDT Associated Problem(s): Chronic respiratory failure with hypoxia (CMS/HCC) ([facility]) Continuous pulse ox while with COVID. -Remains at baseline 2L at rest, 4L with exertion. * Assessment & Plan Note - Joann Lyon NP - 05/29/2022 4:23 PM CDT Associated Problem(s): Pneumonia due to infectious organism (Resolved 06/11/2022) Reports two weeks of productive green sputum after eating that is new. Appears to have been startedon cefdinir for PNA and UTI at OSH starting 05/22. Will complete 7 total days of antibiotics (Azith,CTX) today. * Assessment & Plan Note - Joann Lyon NP - 05/29/2022 4:22 PM CDT Associated Problem(s): Acute on chronic heart failure (CMS/HCC) ([facility]) (Resolved 06/07/2022) 2/2 dietary indiscretion vs COVID or bacterial pneumonia. No standing weights recorded, still with some LE edema but on stable O2 - 40mg IV lasix today and reassess need for additional IV lasix tomorrow-can probably transition back to home 60mg po Lasix -continue home metop -last TTE 12/2021 per outside notes with EF 55-60% -strict I/o, daily weights * Subjective & Objective - Sonali Joannjunito Godinez, [employer]PER[employer]OR - 05/29/2022 3:59 PM CDT Daily Progress Note Division of Hospital Medicine Name: Ayanna Gibbs Today: May 29, 2022 : 1950 Age: 72 y.o. female Admit: 05/27/2022 Bed: [place] [id number] Subjective Chief complaint: Volume overload, SOB Interval History: Stable pulm on baseline 2L, tho increased WOB with minimal activity. Remdesivir stopped 2/2 bradycardia this am. Objective Medications: Scheduled: apixaban, 5 mg, oral, Q12H DELFIN cholecalciferol, 1,000 Units, oral, Daily cholestyramine-aspartame, 1 packet, oral, Daily - 0600 cyanocobalamin, 2,000 mcg, oral, Daily hydrOXYchloroQUINE, 200 mg, oral, BID levothyroxine, 112 mcg, oral, Daily metoprolol XL, 125 mg, oral, Daily pravastatin, 80 mg, oral, Daily predniSONE, 15 mg, oral, QAM sertraline, 50 mg, oral, Daily trimethoprim, 100 mg, oral, Nightly umeclidinium-vilanteroL, 1 puff, inhalation, Daily (RT) Infusions: PRN: acetaminophen albuterol HFA polyethylene glycol ramelteon traMADoL Vitals: 24hr Min/Max: Temp Min: 36.3 ??C (97.3 ??F) Max: 36.8 ??C (98.2 ??F) Pulse Min: 68 Max: 82 BP Min: 107/67 Max: 132/57 Resp Min: 16 Max: 20 SpO2 Min: 97 % Max: 99 % Most Recent: Vitals: 05/29/22 1555 BP: 115/58 Pulse: 73 Resp: 16 Temp: 36.3 ??C (97.3 ??F) SpO2: 98% 2L Intake/Output Summary (Last 24 hours) at 05/29/2022 1559 Last data filed at 05/29/2022 1000 Gross per 24 hour Intake 530 ml Output 1400 ml Net -870 ml Physical Exam Constitutional: NAD, well developed, obese Eyes: PERRL, EOMI, anicteric ENT: NCAT, oropharynx normal, moist mucus membranes Lungs: Fine wheezes bilat bases, unlabored at rest, increased WOB with minimal activity Cardiovascular: Irreg, syd, normal S1 and S2, no murmurs, no JVD appreciated GI: Soft, non-tender, non-distended, bowel sounds +, no organomegaly Skin: No new rashes, lesions or bruises on visible skin Extremities: 1+ pretibial edema bilat, no cyanosis Neurologic: AOx4, CNII-XII intact, normal strength and sensation Psychiatric: Normal affect and mood, euthymic I have reviewed the patient's vital signs. Lab/Diagnostic Review: I have reviewed the laboratory results from 05/28/22. Imaging Results: ECG 12 lead Gene Nails MD 05/27/2022 3:56 PM ECG [...] ED XR Chest Pa Lateral 2 Vw Narrative: EXAMINATION: 2 view chest radiograph Impression: [...] this written report and agrees with it. * Plan of Alan - Alexandra Mason - 05/29/2022 7:42 AM CDT Goals: Clinical Goals for the Shift: vitals signs, medication, turn to sides, skin breakdown, comfort and safety Summary: Patient AOx4, on oxygen via nasal cannula at 2lpm. Vital signs taken and charted, due medications given. IV cannula on site. Pure wick on site, amaya care done. Patient puts on her own CPAP machine, tolerated well. Noted patient had some pauses and bradycardia as low as 35bpm, MD Cunningham informed, given medication as per ordered. Transferred patient to an air mattress. Weight checked. Comfort and safety implemented. Problem: Activity: Goal: Mobility will improve Outcome: Progressing Problem: Lack of Knowledge: Goal: Understanding of ways to prevent future skin breakdown will improve Outcome: Progressing Goal: Ability to identify appropriate dietary choices will improve Outcome: Progressing Problem: Nutritional: Goal: Dietary intake will improve Outcome: Progressing Goal: Ability to maintain a balanced intake and output will improve Outcome: Progressing Problem: Skin Integrity: Goal: Risk for impaired skin integrity will decrease Outcome: Progressing Goal: Ability to demonstrate warm and dry skin will improve Outcome: Progressing Goal: Circulation will improve to fullest extent possible Outcome: Progressing Problem: Activity: Goal: Risk for activity intolerance will decrease Outcome: Progressing Problem: Lack of Knowledge: Goal: Knowledge of diagnostic tests will improve Outcome: Progressing Goal: Knowledge of disease or condition will improve Outcome: Progressing Goal: Knowledge of safety precautions will improve Outcome: Progressing Goal: Knowledge of the prescribed therapeutic regimen will improve Outcome: Progressing Problem: Health Behavior: Goal: Ability to state signs and symptoms to report to health care provider will improve Outcome: Progressing Problem: Physical Regulation: Goal: Ability to maintain clinical measurements within normal limits will improve Outcome: Progressing Problem: Infection Risk: Goal: Will remain free from infection Outcome: Progressing Problem: Safety: Goal: Ability to remain free from injury will improve Outcome: Progressing Goal: Will remain free from falls Outcome: Progressing Problem: Self-Care: Goal: Ability to participate in self-care as condition permits will improve Outcome: Progressing Problem: Sensory: Goal: Pain level will decrease Outcome: Progressing Goal: Ability to develop a pain control plan will improve Outcome: Progressing Problem: Skin Integrity: Goal: Risk for impaired skin integrity will decrease Outcome: Progressing Problem: Tissue Perfusion: Goal: Risk factors for ineffective tissue perfusion will decrease Outcome: Progressing Problem: Lack of Knowledge: Goal: Knowledge of risk factors and measures for prevention of condition will improve Outcome: Progressing Problem: Coping: Goal: Psychosocial and spiritual needs will be supported Outcome: Progressing Problem: Physical Regulation: Goal: Spread of further infection will be prevented Outcome: Progressing Problem: Respiratory: Goal: Will maintain a patent airway Outcome: Progressing Goal: Complications related to the disease process, condition or treatment will be avoided or minimized Outcome: Progressing Problem: Lack of Knowledge: Goal: Ability to develop a pain control plan will improve Outcome: Progressing Goal: Ability to identify pain intensity on a pain scale and rate it consistently will improve Outcome: Progressing Goal: Ability to notify healthcare provider of pain before it becomes unmanageable or unbearable will improve Outcome: Progressing Problem: Medication: Goal: Satisfaction with pain management regimen will improve Outcome: Progressing Problem: Sensory: Goal: Ability to identify factors that increase the pain will improve Outcome: Progressing Goal: Pain level will decrease Outcome: Progressing Problem: Lack of Knowledge: Goal: Ability to state ways to decrease the risk of falls will improve Outcome: Progressing Problem: Safety: Goal: Will remain free from falls Outcome: Progressing Goal: Will remain free from injury from falls Outcome: Progressing Goal: Will remain free from falls and injury in home environment Outcome: Progressing * Plan of Care - Shraddha Cardenas RN - 05/28/2022 2:29 PM CDT Problem: Lack of Knowledge: Goal: Understanding of ways to prevent future skin breakdown will improve Outcome: Progressing Problem: Nutritional: Goal: Dietary intake will improve Outcome: Progressing Problem: Skin Integrity: Goal: Ability to demonstrate warm and dry skin will improve Outcome: Progressing Goals: Clinical Goals for the Shift: VS, skin breakdown, infection control Summary: Patient is aware and understanding of ways to prevent further skin breakdown, patient is able to turn self , but often refused. VS WNL. * Subjective & Objective - Manoj Joseph MD - 05/28/2022 1:03 PM CDT Daily Progress Note Division of Hospital Medicine Name: Ayanna Gibbs Today: May 28, 2022 : 1950 Age: 72 y.o. female Admit: 05/27/2022 Bed: [id number] Subjective Chief complaint: volume overload, SOB Interval History: - No acute overnight events. Good UOP with IV lasix. Still reports feeling poorly, having trouble getting comfortable and sleeping. Has some skin breakdown on buttocks. - Daughter at bedside. Wants pt go to rehab at discharge, but will not return to same rehab Objective Medications: Scheduled: apixaban, 5 mg, oral, Q12H DELFIN azithromycin, 500 mg, oral, Daily cefTRIAXone, 1,000 mg, intravenous, Q24H DELFIN cholecalciferol, 1,000 Units, oral, Daily cholestyramine-aspartame, 1 packet, oral, Daily - 0600 cyanocobalamin, 2,000 mcg, oral, Daily hydrOXYchloroQUINE, 200 mg, oral, BID levothyroxine, 112 mcg, oral, Daily metoprolol XL, 125 mg, oral, Daily pravastatin, 80 mg, oral, Daily predniSONE, 15 mg, oral, QAM remdesivir, 100 mg, intravenous, Q24H sertraline, 50 mg, oral, Daily trimethoprim, 100 mg, oral, Nightly umeclidinium-vilanteroL, 1 puff, inhalation, Daily (RT) Infusions: PRN: acetaminophen albuterol HFA polyethylene glycol ramelteon traMADoL Vitals: 24hr Min/Max: Temp Min: 36.2 ??C (97.2 ??F) Max: 36.5 ??C (97.7 ??F) Pulse Min: 53 Max: 80 BP Min: 131/73 Max: 188/138 Resp Min: 14 Max: 23 SpO2 Min: 96 % Max: 100 % Most Recent: Vitals: 05/28/22 0850 BP: Pulse: 77 Resp: 19 Temp: 36.2 ??C (97.2 ??F) SpO2: 100% Intake/Output Summary (Last 24 hours) at 05/28/2022 1303 Last data filed at 05/28/2022 1145 Gross per 24 hour Intake -- Output 3150 ml Net -3150 ml Physical Exam Constitutional: NAD, chronically ill appearing Eyes: PERRL, EOMI, anicteric ENT: NCAT, oropharynx normal, moist mucus membranes Lungs: Bibasilar dry crackle, intermitte wheeze and squeak, unlabored Cardiovascular: RRR, normal S1 and S2, no murmurs, no JVD GI: Soft, non-tender, non-distended, bowel sounds +, no organomegaly Skin: No new rashes, lesions or bruises on visible skin Extremities: 1-2+ BLE edema Neurologic: AOx4, nonfocal Psychiatric: Normal affect and mood I have reviewed the patient's vital signs. Lab/Diagnostic Review: Recent Results (from the past 36 hour(s)) CBC with auto differential Collection Time: 05/27/22 1:16 PM Result Value Ref Range WBC 7.9 3.8 - 9.9 K/cumm Hgb 11.9 11.9 - 15.5 g/dL Hct 37.2 35.6 - 45.5 % Plt 265 150 - 400 K/cumm MPV 11.6 9.1 - 12.3 fL RBC 3.83 (L) 3.90 - 5.20 M/cumm MCV 97.1 (H) 81.3 - 96.4 fL MCH 31.1 27.1 - 33.3 pg MCHC 32.0 (L) 32.3 - 35.7 g/dL RDW CV 13.0 11.1 - 14.9 % RDW SD 47.0 35.7 - 48.1 fL NRBC abs 0.00 0.00 - 0.01 K/cumm Basic metabolic panel Collection Time: 05/27/22 1:16 PM Result Value Ref Range Sodium 142 135 - 145 mmol/L Potassium, pl See Comment 3.3 - 4.9 mmol/L Chloride 102 97 - 110 mmol/L CO2 32 22 - 32 mmol/L Anion gap 8 2 - 15 mmol/L BUN 49 (H) 8 - 25 mg/dL Creatinine 1.31 (H) 0.60 - 1.10 mg/dL Glucose 110 70 - 199 mg/dL Calcium 10.0 8.5 - 10.3 mg/dL Blood gas, venous Collection Time: 05/27/22 1:16 PM Result Value Ref Range pH, Venous 7.32 7.32 - 7.43 PCO2, Venous 59 (H) 40 - 50 mmHg PO2, Venous 39 mmHg HCO3 Venous, Calculated 32 (H) 20 - 30 mmol/L BE, venous 3 mmol/L Troponin I high-sensitivity series (baseline, 2hr, 4hr, 6hr) Collection Time: 05/27/22 1:16 PM Result Value Ref Range Trop I hs 22 (H) <=17 ng/L Pro B-type natriuretic peptide Collection Time: 05/27/22 1:16 PM Result Value Ref Range NT-proBNP 1,618 (H) <=300 pg/mL Differential, auto Collection Time: 05/27/22 1:16 PM Result Value Ref Range Neutrophil abs 6.4 1.7 - 6.5 K/cumm Imm gran abs 0.0 0.0 - 0.1 K/cumm Lymphocyte abs 0.9 0.8 - 3.3 K/cumm Monocyte abs 0.6 0.2 - 0.8 K/cumm Eosinophil abs 0.0 0.0 - 0.5 K/cumm Basophil abs 0.0 0.0 - 0.1 K/cumm Neutrophil pct 81.1 % Imm gran pct 0.5 % Lymphocyte pct 11.2 % Monocyte pct 7.1 % Eosinophil pct 0.0 % Basophil pct 0.1 % eGFR Collection Time: 05/27/22 1:16 PM Result Value Ref Range eGFR 43 (L) 90 - 130 mL/min/1.73 m2 Hepatic function panel Collection Time: 05/27/22 1:16 PM Result Value Ref Range Bilirubin, total 0.4 0.1 - 1.2 mg/dL Bilirubin, direct See Comment 0.1 - 0.3 mg/dL Protein, pl 7.4 6.5 - 8.5 g/dL Albumin 3.9 3.5 - 5.0 g/dL Alk phos See Comment 40 - 130 Units/L ALT See Comment 7 - 45 Units/L AST See Comment 10 - 45 Units/L Troponin I high-sensitivity 2-hour Collection Time: 05/27/22 2:53 PM Result Value Ref Range Trop I hs 21 (H) <=17 ng/L Trop I hs delta -1 ng/L Trop I hs interp Insignificant Troponin I high-sensitivity 4-hour Collection Time: 05/27/22 4:55 PM Result Value Ref Range Trop I hs 21 (H) <=17 ng/L Trop I hs delta -1 ng/L Trop I hs interp Insignificant COVID-19 Coronavirus RNA Nasopharyngeal Collection Time: 05/27/22 4:55 PM Specimen: Nasopharyngeal Result Value Ref Range COVID-19 RNA Positive (A) Negative Potassium, whole blood Collection Time: 05/27/22 4:55 PM Result Value Ref Range Potassium, bld 4.8 3.3 - 4.9 mmol/L Troponin I high-sensitivity 6-hour Collection Time: 05/27/22 9:48 PM Result Value Ref Range Trop I hs 18 (H) <=17 ng/L Trop I hs delta See Comment ng/L Trop I hs pct delta See Comment % Trop I hs interp See Comment Basic metabolic panel Collection Time: 05/28/22 12:08 AM Result Value Ref Range Sodium 143 135 - 145 mmol/L Potassium, pl 4.5 3.3 - 4.9 mmol/L Chloride 102 97 - 110 mmol/L CO2 32 22 - 32 mmol/L Anion gap 9 2 - 15 mmol/L BUN 49 (H) 8 - 25 mg/dL Creatinine 1.31 (H) 0.60 - 1.10 mg/dL Glucose 75 70 - 199 mg/dL Calcium 10.0 8.5 - 10.3 mg/dL CBC with auto differential Collection Time: 05/28/22 12:08 AM Result Value Ref Range WBC 6.3 3.8 - 9.9 K/cumm Hgb 10.8 (L) 11.9 - 15.5 g/dL Hct 34.4 (L) 35.6 - 45.5 % Plt 192 150 - 400 K/cumm MPV 11.0 9.1 - 12.3 fL RBC 3.52 (L) 3.90 - 5.20 M/cumm MCV 97.7 (H) 81.3 - 96.4 fL MCH 30.7 27.1 - 33.3 pg MCHC 31.4 (L) 32.3 - 35.7 g/dL RDW CV 12.9 11.1 - 14.9 % RDW SD 45.8 35.7 - 48.1 fL NRBC abs 0.00 0.00 - 0.01 K/cumm Hepatic function panel Collection Time: 05/28/22 12:08 AM Result Value Ref Range Bilirubin, total 0.4 0.1 - 1.2 mg/dL Bilirubin, direct <0.2 0.1 - 0.3 mg/dL Protein, pl 6.4 (L) 6.5 - 8.5 g/dL Albumin 3.5 3.5 - 5.0 g/dL Alk phos 112 40 - 130 Units/L ALT 23 7 - 45 Units/L AST 39 10 - 45 Units/L Magnesium Collection Time: 05/28/22 12:08 AM Result Value Ref Range Magnesium 1.7 1.4 - 2.5 mg/dL Differential, auto Collection Time: 05/28/22 12:08 AM Result Value Ref Range Neutrophil abs 4.2 1.7 - 6.5 K/cumm Imm gran abs 0.1 0.0 - 0.1 K/cumm Lymphocyte abs 1.4 0.8 - 3.3 K/cumm Monocyte abs 0.7 0.2 - 0.8 K/cumm Eosinophil abs 0.0 0.0 - 0.5 K/cumm Basophil abs 0.0 0.0 - 0.1 K/cumm Neutrophil pct 65.7 % Imm gran pct 0.8 % Lymphocyte pct 22.4 % Monocyte pct 10.9 % Eosinophil pct 0.2 % Basophil pct 0.0 % eGFR Collection Time: 05/28/22 12:08 AM Result Value Ref Range eGFR 43 (L) 90 - 130 mL/min/1.73 m2 I have reviewed the laboratory results. Imaging Results: ECG 12 lead Gene Nails MD 05/27/2022 3:56 PM ECG [...] ED XR Chest Pa Lateral 2 Vw Narrative: EXAMINATION: 2 view chest radiograph Impression: [...] this written report and agrees with it. * Plan of Care - Alexandra Mason - 05/28/2022 7:21 AM CDT Goals: Clinical Goals for the Shift: admission orientation, vital signs, medication, labs, amaya care, use of purewick, comfort and safety Summary: Received patient admission, oriented to room and unit, call light within reach. Vital signs taken and charted, due medications given. Amaya care done, skin assessment done with 2 RN. Purewickon site and working well. All blood test collected. Patient refused to turn to sides, skin integrity and impairment education done, needs reinforcement. Per patient she will try to scoot on her own and lift her buttocks from time to time. Bath given, encourage patient to turn to sides from time to time, patient still refuses, CN informed. Denies of any pain, comfort and safety implemented. Problem: Activity: Goal: Mobility will improve 05/28/202224 by Alexandra Mason Outcome: Progressing 05/28/202211 by Alexandra Mason Outcome: Progressing Problem: Lack of Knowledge: Goal: Understanding of ways to prevent future skin breakdown will improve 05/28/202224 by Alexandra Mason Outcome: Progressing 05/28/202211 by Alexandra Mason Outcome: Progressing Goal: Ability to identify appropriate dietary choices will improve 05/28/202224 by Alexandra Mason Outcome: Progressing 05/28/202211 by Alexandra Mason Outcome: Progressing Problem: Nutritional: Goal: Dietary intake will improve 05/28/202224 by Alexandra Mason Outcome: Progressing 05/28/202211 by Alexandra Mason Outcome: Progressing Goal: Ability to maintain a balanced intake and output will improve 05/28/202224 by Alexandra Mason Outcome: Progressing 05/28/202211 by Alexandra Mason Outcome: Progressing Problem: Skin Integrity: Goal: Risk for impaired skin integrity will decrease 05/28/202224 by Alexandra Mason Outcome: Progressing 05/28/202211 by Alexandra Mason Outcome: Progressing Goal: Ability to demonstrate warm and dry skin will improve 05/28/202224 by Alexandra Mason Outcome: Progressing 05/28/202211 by Alexandra Mason Outcome: Progressing Goal: Circulation will improve to fullest extent possible 05/28/202224 by Alexandra Mason Outcome: Progressing 05/28/202211 by Alexandra Mason Outcome: Progressing Problem: Activity: Goal: Risk for activity intolerance will decrease Outcome: Progressing Problem: Lack of Knowledge: Goal: Knowledge of diagnostic tests will improve Outcome: Progressing Goal: Knowledge of disease or condition will improve Outcome: Progressing Goal: Knowledge of safety precautions will improve Outcome: Progressing Goal: Knowledge of the prescribed therapeutic regimen will improve Outcome: Progressing Problem: Health Behavior: Goal: Ability to state signs and symptoms to report to health care provider will improve Outcome: Progressing Problem: Physical Regulation: Goal: Ability to maintain clinical measurements within normal limits will improve Outcome: Progressing Problem: Infection Risk: Goal: Will remain free from infection Outcome: Progressing Problem: Safety: Goal: Ability to remain free from injury will improve Outcome: Progressing Goal: Will remain free from falls Outcome: Progressing Problem: Self-Care: Goal: Ability to participate in self-care as condition permits will improve Outcome: Progressing Problem: Sensory: Goal: Pain level will decrease Outcome: Progressing Goal: Ability to develop a pain control plan will improve Outcome: Progressing Problem: Skin Integrity: Goal: Risk for impaired skin integrity will decrease Outcome: Progressing Problem: Tissue Perfusion: Goal: Risk factors for ineffective tissue perfusion will decrease Outcome: Progressing Problem: Lack of Knowledge: Goal: Knowledge of risk factors and measures for prevention of condition will improve Outcome: Progressing Problem: Coping: Goal: Psychosocial and spiritual needs will be supported Outcome: Progressing Problem: Physical Regulation: Goal: Spread of further infection will be prevented Outcome: Progressing Problem: Respiratory: Goal: Will maintain a patent airway Outcome: Progressing Goal: Complications related to the disease process, condition or treatment will be avoided or minimized Outcome: Progressing Problem: Lack of Knowledge: Goal: Ability to develop a pain control plan will improve Outcome: Progressing Goal: Ability to identify pain intensity on a pain scale and rate it consistently will improve Outcome: Progressing Goal: Ability to notify healthcare provider of pain before it becomes unmanageable or unbearable will improve Outcome: Progressing Problem: Medication: Goal: Satisfaction with pain management regimen will improve Outcome: Progressing Problem: Sensory: Goal: Ability to identify factors that increase the pain will improve Outcome: Progressing Goal: Pain level will decrease Outcome: Progressing Problem: Lack of Knowledge: Goal: Ability to state ways to decrease the risk of falls will improve Outcome: Progressing Problem: Safety: Goal: Will remain free from falls Outcome: Progressing Goal: Will remain free from injury from falls Outcome: Progressing Goal: Will remain free from falls and injury in home environment Outcome: Progressing * Plan of Care - Magaly Harrington RRT - 05/28/2022 5:27 AM CDT Medical Conditions Diagnosis ??? Paroxysmal atrial fibrillation (CMS/HCC) (HCC) ??? Chronic anticoagulation ??? Chronic heart failure with preserved ejection fraction (CMS/HCC) (HCC) ??? Rheumatoid arthritis (HCC) ??? Morbid obesity with BMI of 45.0-49.9, adult (CMS/HCC) (HCC) ??? STARR on CPAP ??? H/O influenza ??? ILD (interstitial lung disease) (CMS/HCC) (HCC) ??? Chronic respiratory failure with hypoxia (CMS/HCC) (HCC) ??? Acute on chronic heart failure (CMS/HCC) (HCC) ??? Hyperlipidemia, unspecified ??? Recurrent major depressive disorder, in partial remission (HCC) ??? COVID-19 ??? Bacterial pneumonia ??? Rib fracture Impression: Patient non-compliant with NPPV. RN is aware. Patient states her daughter is bringing her home unit to the hospital to use beginning on 05/28. ?? Plan: Encourage patient to wear NPPV. * Plan of Care - Magaly Harrington RRT - 05/28/2022 4:58 AM CDT Medical Conditions Diagnosis ??? Paroxysmal atrial fibrillation (CMS/HCC) (HCC) ??? Chronic anticoagulation ??? Chronic heart failure with preserved ejection fraction (CMS/HCC) (HCC) ??? Rheumatoid arthritis (HCC) ??? Morbid obesity with BMI of 45.0-49.9, adult (CMS/HCC) (HCC) ??? STARR on CPAP ??? H/O influenza ??? ILD (interstitial lung disease) (CMS/HCC) (HCC) ??? Chronic respiratory failure with hypoxia (CMS/HCC) (HCC) ??? Acute on chronic heart failure (CMS/HCC) (HCC) ??? Hyperlipidemia, unspecified ??? Recurrent major depressive disorder, in partial remission (HCC) ??? COVID-19 ??? Bacterial pneumonia ??? Rib fracture Impression: Patient non-compliant with NPPV. RN is aware. Patient states her daughter is bringing her home unit to the hospital to use beginning on 05/28. Plan: Encourage patient to wear NPPV. * Assessment & Plan Note - Manoj Joseph MD - 05/27/2022 8:27 PM CDT Associated Problem(s): Rib fracture (Resolved 07/03/2022) Tramadol prn. miralax daily prn. Incentive spirometer. * Assessment & Plan Note - Manoj Joseph MD - 05/27/2022 8:26 PM CDT Associated Problem(s): Pneumonia due to infectious organism (Resolved 06/11/2022) Reports two weeks of productive green sputum after eating that is new. Appears to have been startedon cefdinir for PNA and UTI at OSH starting 05/22. Will continue treatment for 7 total days of antibiotics * Assessment & Plan Note - Manoj Joseph MD - 05/27/2022 8:24 PM CDT Associated Problem(s): Acute on chronic heart failure (CMS/HCC) (HCC) (Resolved 06/07/2022) 2/2 dietary indiscretion vs COVID or bacterial pneumonia. No standing weights recorded, still with some LE edema but on stable O2 - 60 IV lasix today and reassess need for additional IV lasix tomorrow -continue home metop -strict I/o, daily weights * Assessment & Plan Note - Manoj Joseph MD - 05/27/2022 8:23 PM CDT Associated Problem(s): COVID-19 (Resolved 07/03/2022) Symptomatic with lethargy, leg swelling, and cough. -remdesivir x3 days for high risk. * Assessment & Plan Note - Timothy Hernandez MD - 05/27/2022 8:23 PM CDT Associated Problem(s): Recurrent major depressive disorder, in partial remission (HCC) hold duloxetine due to decreased Cr, setraline * Assessment & Plan Note - Timothy Hernandez MD - 05/27/2022 8:23 PM CDT Associated Problem(s): Hyperlipidemia, unspecified c/w pravastatin * Assessment & Plan Note - Manoj Joseph MD - 05/27/2022 8:22 PM CDT Associated Problem(s): Chronic respiratory failure with hypoxia (CMS/HCC) ([facility]) Continuous pulse ox while with COVID. Baseline 2L at rest, 4L with exertion. * Assessment & Plan Note - Timothy Hernandez MD - 05/27/2022 8:22 PM CDT Associated Problem(s): Rheumatoid arthritis (HCC) hold abatacept. Continue plaquinel * Assessment & Plan Note - Timothy Hernandez MD - 05/27/2022 8:22 PM CDT Associated Problem(s): ILD (interstitial lung disease) (CMS/HCC) ([facility]) No increased oxygen requirement or symptoms of dyspnea. c/w prednisone 15mg, bactrim. Hold abetacept. Message rheum (usually hold 7-10 days until sx resolve) * Assessment & Plan Note - Timothy Hernandez MD - 05/27/2022 8:22 PM CDT Associated Problem(s): STARR on CPAP CPAP at night * Assessment & Plan Note - Timothy Hernandez MD - 05/27/2022 8:21 PM CDT Associated Problem(s): Morbid obesity with BMI of 45.0-49.9, adult (CMS/HCC) (HCC) (Resolved 10/13/2024) PT/OT consulted. * Assessment & Plan Note - Timothy Hernandez MD - 05/27/2022 8:21 PM CDT Associated Problem(s): Longstanding persistent atrial fibrillation (CMS/HCC) (HCC) c/w home metoprolol and eliquis * ED Procedure Note - Gene Nails MD - 05/27/2022 3:52 PM CDT Associated Order(s): ECG 12 lead Procedure ECG 12 lead Date/Time: 05/27/2022 3:52 PM [...] follow up: further workup in the ED Gene Nails MD 05/27/22 1556 documented in this encounter Plan of Treatment Not on file documented as of this encounter Procedures Procedure Name Priority Date/Time Associated Diagnosis Comments EGFR Timed 06/06/2022 12:46 PM CDT BASIC METABOLIC PANEL Timed 06/06/2022 12:46 PM CDT POCT GLUCOSE DEVICE Routine 06/06/2022 8 :14 AM CDT ECG 12-LEAD STAT 06/06/2022 7:22 AM CDT EGFR Routine 06/05/2022 9:57 PM CDT MAGNESIUM Routine 06/05/2022 9:57 PM CDT BASIC METABOLIC PANEL Routine 06/05/2022 9:57 PM CDT EGFR Routine 06/04/2022 9:22 PM CDT MAGNESIUM Routine 06/04/2022 9:22 PM CDT BASIC METABOLIC PANEL Routine 06/04/2022 9:22 PM CDT EGFR Routine 06/03/2022 9:16 PM CDT MAGNESIUM Routine 06/03/2022 9:16 PM CDT BASIC METABOLIC PANEL Routine 06/03/2022 9:16 PM CDT EGFR Routine 06/02/2022 8:56 PM CDT DIFFERENTIAL AUTO Routine 06/02/2022 8:5 6 PM CDT CBC WITH AUTO DIFFERENTIAL Routine 06/02/2022 8:56 PM CDT MAGNESIUM Routine 06/02/2022 8:56 PM CDT BASIC METABOLIC PANEL Routine 06/02/2022 8:56 PM CDT EGFR Routine 06/02/2022 12:21 AM CDT DIFFERENTIAL AUTO Routine 06/02/2022 12: 21 AM CDT CBC WITH AUTO DIFFERENTIAL Routine 06/02/2022 12:21 AM CDT MAGNESIUM Routine 06/02/2022 12:21 AM CDT BASIC METABOLIC PANEL Routine 06/02/2022 12:21 AM CDT EGFR Routine 05/31/2022 11:57 PM CDT DIFFERENTIAL AUTO Routine 05/31/2022 11: 57 PM CDT CBC WITH AUTO DIFFERENTIAL Routine 05/31/2022 11:57 PM CDT MAGNESIUM Routine 05/31/2022 11:57 PM CDT BASIC METABOLIC PANEL Routine 05/31/2022 11:57 PM CDT EGFR Routine 05/30/2022 9:54 PM CDT DIFFERENTIAL AUTO Routine 05/30/2022 9:5 4 PM CDT CBC WITH AUTO DIFFERENTIAL Routine 05/30/2022 9:54 PM CDT MAGNESIUM Routine 05/30/2022 9:54 PM CDT BASIC METABOLIC PANEL Routine 05/30/2022 9:54 PM CDT URINALYSIS AND REFLEX TO MICROSCOPIC AND CULTURE Routine 05/30/2022 9:19 AM CDT URINALYSIS, MICROSCOPIC ONLY Routine 05/30/2022 9:19 AM CDT URINE CULTURE Routine 05/30/2022 9:19 AM CDT EGFR Routine 05/29/2022 9:28 PM CDT DIFFERENTIAL AUTO Routine 05/29/2022 9:2 8 PM CDT CBC WITH AUTO DIFFERENTIAL Routine 05/29/2022 9:28 PM CDT MAGNESIUM Routine 05/29/2022 9:28 PM CDT HEPATIC FUNCTION PANEL Routine 05/29/2022 9:28 PM CDT BASIC METABOLIC PANEL Routine 05/29/2022 9:28 PM CDT EGFR STAT 05/28/2022 12:08 AM CDT DIFFERENTIAL AUTO STAT 05/28/2022 12: 08 AM CDT CBC WITH AUTO DIFFERENTIAL STAT 05/28/2022 12:08 AM CDT MAGNESIUM STAT 05/28/2022 12:08 AM CDT HEPATIC FUNCTION PANEL STAT 05/28/2022 12:08 AM CDT BASIC METABOLIC PANEL STAT 05/28/2022 12:08 AM CDT TROPONIN I HIGH-SENSITIVITY 6-HOUR Timed 05/27/2022 9:48 PM CDT TROPONIN I HIGH-SENSITIVITY 4-HOUR Timed 05/27/2022 4:55 PM CDT COVID-19 CORONAVIRUS RNA Routine 05/27/2022 4:55 PM CDT POTASSIUM, WHOLE BLOOD Routine 05/27/2022 4:55 PM CDT ECG 12-LEAD STAT 05/27/2022 3:52 PM CDT TROPONIN I HIGH-SENSITIVITY 2-HOUR Timed 05/27/2022 2:53 PM CDT XR CHEST PA LATERAL 2 VIEWS ED 05/27/2022 2:47 PM CDT TROPONIN I HIGH-SENSITIVITY SERIES (BASELINE, 2HR, 4HR, 6HR) STAT 05/27/2022 1:16 PM CDT EGFR STAT 05/27/2022 1:16 PM CDT DIFFERENTIAL AUTO STAT 05/27/2022 1:1 6 PM CDT PRO B-TYPE NATRIURETIC PEPTIDE STAT 05/27/2022 1:16 PM CDT CBC WITH AUTO DIFFERENTIAL STAT 05/27/2022 1:16 PM CDT BLOOD GAS, VENOUS STAT 05/27/2022 1:1 6 PM CDT HEPATIC FUNCTION PANEL STAT 05/27/2022 1:16 PM CDT BASIC METABOLIC PANEL STAT 05/27/2022 1:16 PM CDT COVID-19 CORONAVIRUS RNA Routine 05/22/2022 9:32 PM CDT documented in this encounter Results * (ABNORMAL) eGFR (06/06/2022 12:46 PM CDT) [facility] eGFR 38(L) 90 - 130 mL/min/1. 73 m2 [facility] Comment: Interpretive Data Reference Interval Normal ?>/= [...] Current interpretive data was last reviewed 2021. Blood 06/06/2022 12:4 6 PM CDT 06/06/2022 1:25 PM CDT us Edilma Chang MD LAB BLOOD ORDERABLES Final Res ult [facility] Department [place] [address] * (ABNORMAL) Basic metabolic panel (06/06/2022 12:46 PM CDT) Sodium 140 135 - 145 mmol/L [facility] Potassium, pl 4.2 3.3 - 4.9 mmol/L [facility] Chloride 103 97 - 110 mmol/L [facility] CO2 31 22 - 32 mmol/L [facility] Anion gap 6 2 - 15 mmol/L [facility] BUN 31(H) 8 - 25 mg/dL [facility] Creatinine 1.44(H) 0.60 - 1.10 mg/dL [facility] Glucose 118 70 - 199 mg/dL [facility] Comment: Interpretive Data Fasting glucose >/= 126 [...] classification and Diagnosis of Diabetes Diabetes Care 2017;40 (Suppl. 1):S11. Current interpretive data was last revised 2017. Calcium 10.0 8.5 - 10.3 mg/dL [facility] Blood 06/06/2022 12:4 6 PM CDT 06/06/2022 1:25 PM CDT Edilma Chang MD LAB BLOOD ORDERABLES Final Res ult Performing Organization Address [facility] de Phone Number [facility] Department [place] [address] * POCT glucose (06/06/2022 8:14 AM CDT) Glucose, POC 72 70 - 199 mg/dL [facility] Blood 06/06/2022 8:14 AM CDT 06/06/2022 8:14 AM CDT Edilma Chang MD LAB POCT ORDERABLES - DEVICE F inal Result Performing Organization Address [facility] de Phone Number [facility] Department [place] [address] * ECG 12 lead (06/06/2022 7:22 AM CDT) Ventricular Rate EKG/Min 62 BPM [facility] Atrial Rate 58 BPM [facility] QRS-Interval (MSEC) 122 ms [facility] QT-Interval (MSEC) 460 ms [facility] QTc 466 ms [facility] R Volcano -20 degrees [facility] T Volcano 74 degrees [facility] Diagnosis Atrial fibrillation Left ventricular hypertrophy with QRS widening Nonspecific ST abnormality Abnormal ECG No previous ECGs available Confirmed by JOSEE LINK M.D ([id number]) on 06/07/2022 5:03:08 PM [facility] 06/06/2022 7:22 AM CDT 06/07/2022 5:03 PM CDT Edilma Chang MD ECG ORDERABLES Final Result Performing Organization Address [facility] Co de Phone Number [facility] * (ABNORMAL) eGFR (06/05/2022 9:57 PM CDT) eGFR 32(L) 90 - 130 mL/min/1. 73 m2 [facility] Comment: Interpretive Data Reference Interval Normal ?>/= [...] Current interpretive data was last reviewed 2021. Blood 06/05/2022 9:57 PM CDT 06/05/2022 10:17 PM CDT us Nick Manzanares MD LAB BLOOD ORDERABLES Final Result Performing Organization Address [facility] de Phone Number [facility] [place] [address] * Magnesium (06/05/2022 9:57 PM CDT) Magnesium 1.9 1.4 - 2.5 mg/dL [facility] Blood 06/05/2022 9:57 PM CDT 06/05/2022 10:17 PM CDT us Nick Manzanares MD LAB BLOOD ORDERABLES Final Result [facility] [place] [address] * (ABNORMAL) Basic metabolic panel (06/05/2022 9:57 PM CDT) [facility] Sodium 140 135 - 145 mmol/L [facility] Potassium, pl 5.6(H) 3.3 - 4.9 mmol/L [facility] Chloride 103 97 - 110 mmol/L [facility] CO2 29 22 - 32 mmol/L [facility] Anion gap 8 2 - 15 mmol/L [facility] BUN 35(H) 8 - 25 mg/dL [facility] Creatinine 1.69(H) 0.60 - 1.10 mg/dL [facility] Glucose 123 70 - 199 mg/dL [facility] Comment: Interpretive Data Fasting glucose >/= 126 [...] classification and Diagnosis of Diabetes Diabetes Care 2017;40 (Suppl. 1):S11. Current interpretive data was last revised 2017. Calcium 9.6 8.5 - 10.3 mg/dL [facility] Blood 06/05/2022 9:57 PM CDT 06/05/2022 10:17 PM CDT us Nick Manzanares MD LAB BLOOD ORDERABLES Final Result Performing Organization Address City/[facility]/ZIP Co de Phone Number [facility] Department [place] [address] * (ABNORMAL) eGFR (06/04/2022 9:22 PM CDT) eGFR 35(L) 90 - 130 mL/min/1. 73 m2 [facility] Comment: Interpretive Data Reference Interval Normal ?>/= [...] Current interpretive data was last reviewed 2021. Blood 06/04/2022 9:22 PM CDT 06/04/2022 9:52 PM CDT us Nick Manzanares MD LAB BLOOD ORDERABLES Final Result [facility] Department [place] [address] * Magnesium (06/04/2022 9:22 PM CDT) Magnesium 1.9 1.4 - 2.5 mg/dL [facility] Blood 06/04/2022 9:22 PM CDT 06/04/2022 9:52 PM CDT Nick Manzanares MD LAB BLOOD ORDERABLES Final Result [facility] Department [place] [address] * (ABNORMAL) Basic metabolic panel (06/04/2022 9:22 PM CDT) [facility] Sodium 139 135 - 145 mmol/L [facility] Potassium, pl 5.1(H) 3.3 - 4.9 mmol/L [facility] Chloride 101 97 - 110 mmol/L [facility] CO2 29 22 - 32 mmol/L [facility] Anion gap 9 2 - 15 mmol/L [facility] BUN 38(H) 8 - 25 mg/dL [facility] Creatinine 1.53(H) 0.60 - 1.10 mg/dL [facility] Glucose 146 70 - 199 mg/dL [facility] Comment: Interpretive Data Fasting glucose >/= 126 [...] classification and Diagnosis of Diabetes Diabetes Care 2017;40 (Suppl. 1):S11. Current interpretive data was last revised 2017. Calcium 10.4(H) 8.5 - 10.3 mg/dL [facility] Blood 06/04/2022 9:22 PM CDT 06/04/2022 9:52 PM CDT us Nick Manzanares MD LAB BLOOD ORDERABLES Final Result [facility] Department [place] [address] * (ABNORMAL) eGFR (06/03/2022 9:16 PM CDT) eGFR 29(L) 90 - 130 mL/min/1. 73 m2 [facility] Comment: Interpretive Data Reference Interval Normal ?>/= [...] Current interpretive data was last reviewed 2021. Blood 06/03/2022 9:16 PM CDT 06/03/2022 9:59 PM CDT us Nick Manzanares MD LAB BLOOD ORDERABLES Final Result [facility] Department [place] [address] * Magnesium (06/03/2022 9:16 PM CDT) Magnesium 1.8 1.4 - 2.5 mg/dL [facility] Blood 06/03/2022 9:16 PM CDT 06/03/2022 9:59 PM CDT Nick Manzanares MD LAB BLOOD ORDERABLES Final Result [facility] Department [place] [address] * (ABNORMAL) Basic metabolic panel (06/03/2022 9:16 PM CDT) [facility] Sodium 138 135 - 145 mmol/L [facility] Potassium, pl 4.9 3.3 - 4.9 mmol/L [facility] Chloride 101 97 - 110 mmol/L [facility] CO2 30 22 - 32 mmol/L [facility] Anion gap 7 2 - 15 mmol/L [facility] BUN 41(H) 8 - 25 mg/dL [facility] Creatinine 1.81(H) 0.60 - 1.10 mg/dL [facility] Glucose 137 70 - 199 mg/dL [facility] Comment: Interpretive Data Fasting glucose >/= 126 [...] classification and Diagnosis of Diabetes Diabetes Care 2017;40 (Suppl. 1):S11. Current interpretive data was last revised 2017. Calcium 9.7 8.5 - 10.3 mg/dL [facility] Blood 06/03/2022 9:16 PM CDT 06/03/2022 9:59 PM CDT Nick Manzanares MD LAB BLOOD ORDERABLES Final Result Performing Organization Address City/[facility]/ZIP Co de Phone Number [facility] [place] [address] * (ABNORMAL) eGFR (06/02/2022 8:56 PM CDT) eGFR 30(L) 90 - 130 mL/min/1. 73 m2 [facility] Comment: Interpretive Data Reference Interval Normal ?>/= [...] Current interpretive data was last reviewed 2021. Blood 06/02/2022 8:56 PM CDT 06/02/2022 10:22 PM CDT us Nick Manzanares MD LAB BLOOD ORDERABLES Final Result [facility] [place] [address] * (ABNORMAL) Differential, auto (06/02/2022 8:56 PM CDT) Neutrophil abs 8.3(H) 1.7 - 6.5 K/cumm [facility] Imm gran abs 0.1 0.0 - 0.1 K/cumm [facility] Lymphocyte abs 1.0 0.8 - 3.3 K/cumm [facility] Monocyte abs 0.7 0.2 - 0.8 K/cumm [facility] Eosinophil abs 0.1 0.0 - 0.5 K/cumm [facility] Basophil abs 0.0 0.0 - 0.1 K/cumm [facility] Neutrophil pct 81.2 % [facility] Comment: Interpretive Data Percent cell count reference ranges are not reported, since discordance with absolute values may lead to misinterpretation of CBC data. Current Interpretive Data was last revised on 2018. Imm gran pct 1.1 % [facility] Comment: Interpretive Data Percent cell count reference ranges are not reported, since discordance with absolute values may lead to misinterpretation of CBC data. Current Interpretive Data was last revised on 2018. Lymphocyte pct 9.8 % [facility] Comment: Interpretive Data Percent cell count reference ranges are not reported, since discordance with absolute values may lead to misinterpretation of CBC data. Current Interpretive Data was last revised on 2018. Monocyte pct 7.2 % [facility] Comment: Interpretive Data Percent cell count reference ranges are not reported, since discordance with absolute values may lead to misinterpretation of CBC data. Current Interpretive Data was last revised on 2018. Eosinophil pct 0.5 % [facility] Comment: Interpretive Data Percent cell count reference ranges are not reported, since discordance with absolute values may lead to misinterpretation of CBC data. Current Interpretive Data was last revised on 2018. Basophil pct 0.2 % [facility] Comment: Interpretive Data Percent cell count reference ranges are not reported, since discordance with absolute values may lead to misinterpretation of CBC data. Current Interpretive Data was last revised on 2018. Blood 06/02/2022 8:56 PM CDT 06/02/2022 10:24 PM CDT Nick Manzanares MD LAB BLOOD ORDERABLES [facility] [place] [address] * Magnesium (06/02/2022 8:56 PM CDT) [facility] Magnesium 1.8 1.4 - 2.5 mg/dL [facility] Blood 06/02/2022 8:56 PM CDT 06/02/2022 10:22 PM CDT Nick Manzanares MD LAB BLOOD ORDERABLES Final Result [facility] [place] [address] * (ABNORMAL) CBC with auto differential (06/02/2022 8:56 PM CDT) [facility] WBC 10.2(H) 3.8 - 9.9 K/cumm [facility] Hgb 10.9(L) 11.9 - 15.5 g/dL [facility] Hct 34.8(L) 35.6 - 45.5 % [facility] Plt 286 150 - 400 K/cumm [facility] MPV 10.4 9.1 - 12.3 fL [facility] RBC 3.58(L) 3.90 - 5.20 M/cumm [facility] MCV 97.2(H) 81.3 - 96.4 fL [facility] MCH 30.4 27.1 - 33.3 pg [facility] MCHC 31.3(L) 32.3 - 35.7 g/dL [facility] RDW CV 13.0 11.1 - 14.9 % [facility] RDW SD 46.7 35.7 - 48.1 fL [facility] NRBC abs 0.00 0.00 - 0.01 K/cumm [facility] Blood 06/02/2022 8:56 PM CDT 06/02/2022 10:24 PM CDT Nick Manzanares MD LAB BLOOD ORDERABLES Final Result [facility] Department [place] [address] * (ABNORMAL) Basic metabolic panel (06/02/2022 8:56 PM CDT) Sodium 139 135 - 145 mmol/L [facility] Potassium, pl 4.4 3.3 - 4.9 mmol/L [facility] Chloride 100 97 - 110 mmol/L [facility] CO2 33(H) 22 - 32 mmol/L [facility] Anion gap 6 2 - 15 mmol/L [facility] BUN 36(H) 8 - 25 mg/dL [facility] Creatinine 1.78(H) 0.60 - 1.10 mg/dL [facility] Glucose 169 70 - 199 mg/dL [facility] Comment: Interpretive Data Fasting glucose >/= 126 [...] classification and Diagnosis of Diabetes Diabetes Care 2017;40 (Suppl. 1):S11. Current interpretive data was last revised 2017. Calcium 9.5 8.5 - 10.3 mg/dL [facility] Blood 06/02/2022 8:56 PM CDT 06/02/2022 10:22 PM CDT Nick Mnazanares MD LAB BLOOD ORDERABLES Final Result [facility] [place] [address] * (ABNORMAL) eGFR (06/02/2022 12:21 AM CDT) eGFR 34(L) 90 - 130 mL/min/1. 73 m2 [facility] Comment: Interpretive Data Reference Interval Normal ?>/= [...] Current interpretive data was last reviewed 2021. Blood 06/02/2022 12:2 1 AM CDT 06/02/2022 1:18 AM CDT us Nick Manzanares MD LAB BLOOD ORDERABLES Final Result [facility] [place] [address] * (ABNORMAL) Differential, auto (06/02/2022 12:21 AM CDT) Neutrophil abs 8.1(H) 1.7 - 6.5 K/cumm [facility] Imm gran abs 0.2(H) 0.0 - 0.1 K/cumm [facility] Lymphocyte abs 1.6 0.8 - 3.3 K/cumm [facility] Monocyte abs 1.3(H) 0.2 - 0.8 K/cumm [facility] Eosinophil abs 0.1 0.0 - 0.5 K/cumm [facility] Basophil abs 0.0 0.0 - 0.1 K/cumm [facility] Neutrophil pct 71.9 % [facility] Comment: Interpretive Data Percent cell count reference ranges are not reported, since discordance with absolute values may lead to misinterpretation of CBC data. Current Interpretive Data was last revised on 2018. Imm gran pct 1.4 % [facility] Comment: Interpretive Data Percent cell count reference ranges are not reported, since discordance with absolute values may lead to misinterpretation of CBC data. Current Interpretive Data was last revised on 2018. Lymphocyte pct 14.2 % [facility] Comment: Interpretive Data Percent cell count reference ranges are not reported, since discordance with absolute values may lead to misinterpretation of CBC data. Current Interpretive Data was last revised on 2018. Monocyte pct 11.4 % [facility] Comment: Interpretive Data Percent cell count reference ranges are not reported, since discordance with absolute values may lead to misinterpretation of CBC data. Current Interpretive Data was last revised on 2018. Eosinophil pct 0.9 % [facility] Comment: Interpretive Data Percent cell count reference ranges are not reported, since discordance with absolute values may lead to misinterpretation of CBC data. Current Interpretive Data was last revised on 2018. Basophil pct 0.2 % [facility] Comment: Interpretive Data Percent cell count reference ranges are not reported, since discordance with absolute values may lead to misinterpretation of CBC data. Current Interpretive Data was last revised on 2018. Blood 06/02/2022 12:2 1 AM CDT 06/02/2022 1:18 AM CDT us Nick Manzanares MD LAB BLOOD ORDERABLES Final Result [facility] Department [place] [address] * Magnesium (06/02/2022 12:21 AM CDT) [facility] Magnesium 1.8 1.4 - 2.5 mg/dL [facility] Blood 06/02/2022 12:2 1 AM CDT 06/02/2022 1:18 AM CDT Nick Manzanares MD LAB BLOOD ORDERABLES Final Result Performing Organization Address [facility] de Phone Number [facility] [place] [address] * (ABNORMAL) CBC with auto differential (06/02/2022 12:21 AM CDT) [facility] WBC 11.3(H) 3.8 - 9.9 K/cumm [facility] Hgb 10.9(L) 11.9 - 15.5 g/dL [facility] Hct 34.2(L) 35.6 - 45.5 % [facility] Plt 275 150 - 400 K/cumm [facility] MPV 10.6 9.1 - 12.3 fL [facility] RBC 3.53(L) 3.90 - 5.20 M/cumm [facility] MCV 96.9(H) 81.3 - 96.4 fL [facility] MCH 30.9 27.1 - 33.3 pg [facility] MCHC 31.9(L) 32.3 - 35.7 g/dL [facility] RDW CV 12.9 11.1 - 14.9 % [facility] RDW SD 45.5 35.7 - 48.1 fL [facility] NRBC abs 0.00 0.00 - 0.01 K/cumm [facility] Blood 06/02/2022 12:2 1 AM CDT 06/02/2022 1:18 AM CDT us Nick Manzanares MD LAB BLOOD ORDERABLES Final Result Performing Organization Address City/[facility]/ZIP Co de Phone Number [facility] [address] * (ABNORMAL) Basic metabolic panel (06/02/2022 12:21 AM CDT) Pathologist [facility] Sodium 140 135 - 145 mmol/L [facility] Potassium, pl 4.2 3.3 - 4.9 mmol/L [facility] Chloride 100 97 - 110 mmol/L [facility] CO2 33(H) 22 - 32 mmol/L [facility] Anion gap 7 2 - 15 mmol/L [facility] BUN 40(H) 8 - 25 mg/dL [facility] Creatinine 1.60(H) 0.60 - 1.10 mg/dL [facility] Glucose 109 70 - 199 mg/dL [facility] Comment: Interpretive Data Fasting glucose >/= 126 [...] classification and Diagnosis of Diabetes Diabetes Care 2017;40 (Suppl. 1):S11. Current interpretive data was last revised 2017. Calcium 9.8 8.5 - 10.3 mg/dL [facility] Blood 06/02/2022 12:2 1 AM CDT 06/02/2022 1:18 AM CDT Nick Manzanares MD LAB BLOOD ORDERABLES Final Result [facility] [place] [address] * (ABNORMAL) eGFR (05/31/2022 11:57 PM CDT) Pathologist [facility] eGFR 39(L) 90 - 130 mL/min/1. 73 m2 [facility] Comment: Interpretive Data Reference Interval Normal ?>/= [...] Current interpretive data was last reviewed 2021. Blood 05/31/2022 11:5 7 PM CDT 06/01/2022 12:31 AM CDT us Nick Manzanares MD LAB BLOOD ORDERABLES Final Result [facility] Department [place] [address] * (ABNORMAL) Differential, auto (05/31/2022 11:57 PM CDT) Neutrophil abs 7.7(H) 1.7 - 6.5 K/cumm [facility] Imm gran abs 0.2(H) 0.0 - 0.1 K/cumm [facility] Lymphocyte abs 1.1 0.8 - 3.3 K/cumm [facility] Monocyte abs 1.1(H) 0.2 - 0.8 K/cumm [facility] Eosinophil abs 0.1 0.0 - 0.5 K/cumm [facility] Basophil abs 0.0 0.0 - 0.1 K/cumm [facility] Neutrophil pct 75.8 % [facility] Comment: Interpretive Data Percent cell count reference ranges are not reported, since discordance with absolute values may lead to misinterpretation of CBC data. Current Interpretive Data was last revised on 2018. Imm gran pct 1.5 % [facility] Comment: Interpretive Data Percent cell count reference ranges are not reported, since discordance with absolute values may lead to misinterpretation of CBC data. Current Interpretive Data was last revised on 2018. Lymphocyte pct 10.6 % [facility] Comment: Interpretive Data Percent cell count reference ranges are not reported, since discordance with absolute values may lead to misinterpretation of CBC data. Current Interpretive Data was last revised on 2018. Monocyte pct 10.9 % [facility] Comment: Interpretive Data Percent cell count reference ranges are not reported, since discordance with absolute values may lead to misinterpretation of CBC data. Current Interpretive Data was last revised on 2018. Eosinophil pct 1.0 % [facility] Comment: Interpretive Data Percent cell count reference ranges are not reported, since discordance with absolute values may lead to misinterpretation of CBC data. Current Interpretive Data was last revised on 2018. Basophil pct 0.2 % [facility] Comment: Interpretive Data Percent cell count reference ranges are not reported, since discordance with absolute values may lead to misinterpretation of CBC data. Current Interpretive Data was last revised on 2018. Blood 05/31/2022 11:5 7 PM CDT 06/01/2022 12:31 AM CDT us Nick Manzanares MD LAB BLOOD ORDERABLES Final Result [facility] Department [place] [address] * Magnesium (05/31/2022 11:57 PM CDT) Magnesium 1.9 1.4 - 2.5 mg/dL [facility] Blood 05/31/2022 11:5 7 PM CDT 06/01/2022 12:31 AM CDT Nick Manzanares MD LAB BLOOD ORDERABLES Final Result Performing Organization Address [facility] de Phone Number [facility] [place] [address] * (ABNORMAL) CBC with auto differential (05/31/2022 11:57 PM CDT) WBC 10.1(H) 3.8 - 9.9 K/cumm [facility] Hgb 10.9(L) 11.9 - 15.5 g/dL [facility] Hct 34.2(L) 35.6 - 45.5 % [facility] Plt 274 150 - 400 K/cumm [facility] MPV 10.3 9.1 - 12.3 fL [facility] RBC 3.52(L) 3.90 - 5.20 M/cumm [facility] MCV 97.2(H) 81.3 - 96.4 fL [facility] MCH 31.0 27.1 - 33.3 pg [facility] MCHC 31.9(L) 32.3 - 35.7 g/dL [facility] RDW CV 12.9 11.1 - 14.9 % [facility] RDW SD 46.0 35.7 - 48.1 fL [facility] NRBC abs 0.00 0.00 - 0.01 K/cumm [facility] Blood 05/31/2022 11:5 7 PM CDT 06/01/2022 12:31 AM CDT Nick Manzanares MD LAB BLOOD ORDERABLES Final Result Performing Organization Address [facility] Co de Phone Number [facility] Department [place] [address] * (ABNORMAL) Basic metabolic panel (05/31/2022 11:57 PM CDT) Pathologist [facility] Sodium 139 135 - 145 mmol/L [facility] Potassium, pl 4.3 3.3 - 4.9 mmol/L [facility] Chloride 100 97 - 110 mmol/L [facility] CO2 31 22 - 32 mmol/L [facility] Anion gap 8 2 - 15 mmol/L [facility] BUN 40(H) 8 - 25 mg/dL [facility] Creatinine 1.41(H) 0.60 - 1.10 mg/dL [facility] Glucose 122 70 - 199 mg/dL [facility] Comment: Interpretive Data Fasting glucose >/= 126 [...] classification and Diagnosis of Diabetes Diabetes Care 2017;40 (Suppl. 1):S11. Current interpretive data was last revised 2017. Calcium 9.6 8.5 - 10.3 mg/dL [facility] Blood 05/31/2022 11:5 7 PM CDT 06/01/2022 12:31 AM CDT us Nick Manzanares MD LAB BLOOD ORDERABLES Final Result [facility] Department [place] [address] * (ABNORMAL) eGFR (05/30/2022 9:54 PM CDT) [facility] eGFR 32(L) 90 - 130 mL/min/1. 73 m2 [facility] Comment: Interpretive Data Reference Interval Normal ?>/= [...] Current interpretive data was last reviewed 2021. Blood 05/30/2022 9:54 PM CDT 05/30/2022 11:02 PM CDT us Nick Manzanares MD LAB BLOOD ORDERABLES Final Result [facility] Department [place] [address] * (ABNORMAL) Differential, auto (05/30/2022 9:54 PM CDT) Neutrophil abs 7.8(H) 1.7 - 6.5 K/cumm [facility] Imm gran abs 0.1 0.0 - 0.1 K/cumm [facility] Lymphocyte abs 1.1 0.8 - 3.3 K/cumm [facility] Monocyte abs 1.0(H) 0.2 - 0.8 K/cumm [facility] Eosinophil abs 0.0 0.0 - 0.5 K/cumm [facility] Basophil abs 0.0 0.0 - 0.1 K/cumm [facility] Neutrophil pct 77.2 % [facility] Comment: Interpretive Data Percent cell count reference ranges are not reported, since discordance with absolute values may lead to misinterpretation of CBC data. Current Interpretive Data was last revised on 2018. Imm gran pct 0.8 % [facility] Comment: Interpretive Data Percent cell count reference ranges are not reported, since discordance with absolute values may lead to misinterpretation of CBC data. Current Interpretive Data was last revised on 2018. Lymphocyte pct 11.2 % [facility] Comment: Interpretive Data Percent cell count reference ranges are not reported, since discordance with absolute values may lead to misinterpretation of CBC data. Current Interpretive Data was last revised on 2018. Monocyte pct 10.2 % [facility] Comment: Interpretive Data Percent cell count reference ranges are not reported, since discordance with absolute values may lead to misinterpretation of CBC data. Current Interpretive Data was last revised on 2018. Eosinophil pct 0.4 % [facility] Comment: Interpretive Data Percent cell count reference ranges are not reported, since discordance with absolute values may lead to misinterpretation of CBC data. Current Interpretive Data was last revised on 2018. Basophil pct 0.2 % [facility] Comment: Interpretive Data Percent cell count reference ranges are not reported, since discordance with absolute values may lead to misinterpretation of CBC data. Current Interpretive Data was last revised on 2018. Blood 05/30/2022 9:54 PM CDT 05/30/2022 11:02 PM CDT us Nick Manzanares MD LAB BLOOD ORDERABLES Final Result Performing Organization Address City/State/[facility] Co de Phone Number [facility] [place] [address] * Magnesium (05/30/2022 9:54 PM CDT) Magnesium 2.0 1.4 - 2.5 mg/dL [facility] Blood 05/30/2022 9:54 PM CDT 05/30/2022 11:02 PM CDT us Nick Manzanares MD LAB BLOOD ORDERABLES Final Result [facility] Department [place] [address] * (ABNORMAL) CBC with auto differential (05/30/2022 9:54 PM CDT) Pathologist [facility] WBC 10.2(H) 3.8 - 9.9 K/cumm [facility] Hgb 11.0(L) 11.9 - 15.5 g/dL [facility] Hct 35.0(L) 35.6 - 45.5 % [facility] Plt 264 150 - 400 K/cumm [facility] MPV 10.7 9.1 - 12.3 fL [facility] RBC 3.60(L) 3.90 - 5.20 M/cumm [facility] MCV 97.2(H) 81.3 - 96.4 fL [facility] MCH 30.6 27.1 - 33.3 pg [facility] MCHC 31.4(L) 32.3 - 35.7 g/dL [facility] RDW CV 12.7 11.1 - 14.9 % [facility] RDW SD 45.0 35.7 - 48.1 fL [facility] NRBC abs 0.00 0.00 - 0.01 K/cumm [facility] Blood 05/30/2022 9:54 PM CDT 05/30/2022 11:02 PM CDT us Nick Manzanares MD LAB BLOOD ORDERABLES Final Result [facility] [place] [address] * (ABNORMAL) Basic metabolic panel (05/30/2022 9:54 PM CDT) Pathologist [facility] Sodium 141 135 - 145 mmol/L [facility] Potassium, pl 4.5 3.3 - 4.9 mmol/L [facility] Chloride 102 97 - 110 mmol/L [facility] CO2 32 22 - 32 mmol/L [facility] Anion gap 7 2 - 15 mmol/L [facility] BUN 40(H) 8 - 25 mg/dL [facility] Creatinine 1.65(H) 0.60 - 1.10 mg/dL [facility] Glucose 109 70 - 199 mg/dL [facility] Comment: Interpretive Data Fasting glucose >/= 126 [...] classification and Diagnosis of Diabetes Diabetes Care 2017;40 (Suppl. 1):S11. Current interpretive data was last revised 2017. Calcium 9.4 8.5 - 10.3 mg/dL [facility] Blood 05/30/2022 9:54 PM CDT 05/30/2022 11:02 PM CDT us Nick Manzanares MD LAB BLOOD ORDERABLES Final Result [facility] [place] [address] * (ABNORMAL) Urine culture Urine, clean voided (05/30/2022 9:19 AM CDT) Report Final Report: Greater than or equal to 100,000 colonies/mL of Enterococcus faecium Plus growth of clinically insignificant bacterial rojelio. (.) [facility] Organism ENTEROCOCCUS FAECIUM [facility] Organism PLUS GROWTH OF CLINICALLY INSIGNIFICANT ROJELIO. [facility] Urine, clean voided 05/30/2022 9:19 AM CDT 05/30/2022 12:37 PM CDT Narrative [facility] - 06/01/2022 1:12 PM CDT Urine culture reflexed based upon urinalysis results. Testing performed by [facility] ([phone]) Organism Antibiotic Method Susceptibility Enterococcus faecium Ampicillin INTERPRETATION Resistant Enterococcus faecium Vancomycin INTERPRETATION Susceptible Enterococcus faecium Nitrofurantoin INTERPRETATION Resistant Enterococcus faecium Linezolid INTERPRETATION Susceptible Enterococcus faecium Doxycycline INTERPRETATION Resistant Joann Lyon NP LAB MICROBIOLOGY - GENERAL ORDERABLES Final Result Performing Organization Address [facility] de Phone Number [facility] [place] [address] * (ABNORMAL) Urinalysis, microscopic only (05/30/2022 9:19 AM CDT) WBC, ur >50(A) 0 - 5 /HPF [facility] RBC, ur 11-20(A) 0 - 2 /HPF [facility] Epithelial cells, squamous, ur 1-5 0 - 5 /HPF [facility] Bacteria, ur 2+(A) [facility] Hyaline casts, ur 1-5 0 - 10 /LPF [facility] Culture Reflex Comment Reflex to urine culture will be performed. [facility] Urine, clean voided 05/30/2022 9:19 AM CDT 05/30/2022 9:45 AM CDT Joann Lyon NP LAB URINE ORDERABLES Final Result Performing Organization Address [facility] de Phone Number [facility] [place] [address] * (ABNORMAL) Urinalysis reflex to microscopic and culture Urine, clean voided (05/30/2022 9:19 AM CDT) Color, ur Straw Yellow [facility] Clarity, ur Clear Clear [facility] Specific gravity, ur 1.024 1.003 - 1.030 [facility] pH, urine 6.0 [facility] Protein, ur ql 1+(A) Negative [facility] Glucose, ur ql Negative Negative [facility] Ketones, ur Negative Negative [facility] Bilirubin, ur Negative Negative [facility] Blood, ur 3+(A) Negative [facility] Urobilinogen, ur <2.0 <2.0 mg/dL [facility] Nitrite, ur Negative Negative [facility] Leukocyte esterase, ur 3+(A) Negative [facility] UA reflex comment Reflex to microscopic UA will be performed. [facility] Urine, clean voided 05/30/2022 9:19 AM CDT 05/30/2022 9:45 AM CDT [facility]ative [facility] - 05/30/2022 10:08 AM CDT ?? Urine pH is affected by diet, medications, systemic acid-base disturbances, and renal tubular function. ??pH may affect urinary stone formation. ??For example, urine pH below 6.0 may help reduce the tendency for calcium phosphate stones and pH greater than 6.0 may reduce the tendency for uric acid stone formation. Source: [employer]. Last revised 12-05-2017 us Joann Lyon NP LAB MICROBIOLOGY - GENERAL ORDERABLES Final Result [facility] [place] [address] * (ABNORMAL) eGFR (05/29/2022 9:28 PM CDT) eGFR 36(L) 90 - 130 mL/min/1. 73 m2 [facility] Comment: Interpretive Data Reference Interval Normal ?>/= [...] Current interpretive data was last reviewed 2021. Blood 05/29/2022 9:28 PM CDT 05/29/2022 10:57 PM CDT us Nick Manzanares MD LAB BLOOD ORDERABLES Final Result [facility] [place] [address] * (ABNORMAL) Differential, auto (05/29/2022 9:28 PM CDT) Neutrophil abs 8.7(H) 1.7 - 6.5 K/cumm [facility] Imm gran abs 0.1 0.0 - 0.1 K/cumm [facility] Lymphocyte abs 1.0 0.8 - 3.3 K/cumm [facility] Monocyte abs 0.8 0.2 - 0.8 K/cumm [facility] Eosinophil abs 0.0 0.0 - 0.5 K/cumm [facility] Basophil abs 0.0 0.0 - 0.1 K/cumm [facility] Neutrophil pct 82.0 % [facility] Comment: Interpretive Data Percent cell count reference ranges are not reported, since discordance with absolute values may lead to misinterpretation of CBC data. Current Interpretive Data was last revised on 2018. Imm gran pct 0.8 % [facility] Comment: Interpretive Data Percent cell count reference ranges are not reported, since discordance with absolute values may lead to misinterpretation of CBC data. Current Interpretive Data was last revised on 2018. Lymphocyte pct 9.1 % [facility] Comment: Interpretive Data Percent cell count reference ranges are not reported, since discordance with absolute values may lead to misinterpretation of CBC data. Current Interpretive Data was last revised on 2018. Monocyte pct 7.6 % [facility] Comment: Interpretive Data Percent cell count reference ranges are not reported, since discordance with absolute values may lead to misinterpretation of CBC data. Current Interpretive Data was last revised on 2018. Eosinophil pct 0.3 % [facility] Comment: Interpretive Data Percent cell count reference ranges are not reported, since discordance with absolute values may lead to misinterpretation of CBC data. Current Interpretive Data was last revised on 2018. Basophil pct 0.2 % [facility] Comment: Interpretive Data Percent cell count reference ranges are not reported, since discordance with absolute values may lead to misinterpretation of CBC data. Current Interpretive Data was last revised on 2018. Blood 05/29/2022 9:28 PM CDT 05/29/2022 9:51 PM CDT Nick Manzanares MD LAB BLOOD ORDERABLES Final Result Performing Organization Address City/[facility]/ZIP Co de Phone Number [facility] [place] [address] * Magnesium (05/29/2022 9:28 PM CDT) [facility] Magnesium 2.2 1.4 - 2.5 mg/dL [facility] Blood 05/29/2022 9:28 PM CDT 05/29/2022 10:57 PM CDT Nick Manzanares MD LAB BLOOD ORDERABLES Final Result [facility] [place] [address] * (ABNORMAL) CBC with auto differential (05/29/2022 9:28 PM CDT) Pathologist [facility] [place] WBC 10.6(H) 3.8 - 9.9 K/cumm [facility] Hgb 10.3(L) 11.9 - 15.5 g/dL [facility] Hct 33.3(L) 35.6 - 45.5 % [facility] Plt 230 150 - 400 K/cumm [facility] MPV 10.8 9.1 - 12.3 fL [facility] RBC 3.39(L) 3.90 - 5.20 M/cumm [facility] MCV 98.2(H) 81.3 - 96.4 fL [facility] MCH 30.4 27.1 - 33.3 pg [facility] MCHC 30.9(L) 32.3 - 35.7 g/dL [facility] RDW CV 12.7 11.1 - 14.9 % [facility] RDW SD 45.5 35.7 - 48.1 fL [facility] NRBC abs 0.00 0.00 - 0.01 K/cumm [facility] Blood 05/29/2022 9:28 PM CDT 05/29/2022 9:51 PM CDT Nick Manzanares MD LAB BLOOD ORDERABLES Final Result [facility] [place] [address] * (ABNORMAL) Basic metabolic panel (05/29/2022 9:28 PM CDT) Sodium 140 135 - 145 mmol/L [facility] Potassium, pl 4.2 3.3 - 4.9 mmol/L [facility] Chloride 100 97 - 110 mmol/L [facility] CO2 31 22 - 32 mmol/L [facility] Anion gap 9 2 - 15 mmol/L [facility] BUN 44(H) 8 - 25 mg/dL [facility] Creatinine 1.52(H) 0.60 - 1.10 mg/dL [facility] Glucose 109 70 - 199 mg/dL [facility] Comment: Interpretive Data Fasting glucose >/= 126 [...] classification and Diagnosis of Diabetes Diabetes Care 2017;40 (Suppl. 1):S11. Current interpretive data was last revised 2017. Calcium 9.0 8.5 - 10.3 mg/dL [facility] Blood 05/29/2022 9:28 PM CDT 05/29/2022 10:57 PM CDT Nick Manzanares MD LAB BLOOD ORDERABLES Final Result Performing Organization Address [facility] de Phone Number [facility] [place] [address] * (ABNORMAL) Hepatic function panel (05/29/2022 9:28 PM CDT) Pathologist [facility] [place] Bilirubin, total 0.3 0.1 - 1.2 mg/dL [facility] Bilirubin, direct <0.2 0.1 - 0.3 mg/dL [facility] Protein, pl 5.8(L) 6.5 - 8.5 g/dL [facility] Albumin 3.3(L) 3.5 - 5.0 g/dL [facility] Alk phos 100 40 - 130 Units/L [facility] ALT 21 7 - 45 Units/L [facility] AST 26 10 - 45 Units/L [facility] Blood 05/29/2022 9:28 PM CDT 05/29/2022 10:57 PM CDT Nick Manzanares MD LAB BLOOD ORDERABLES Final Result Performing Organization Address [facility] de Phone Number [facility] [place] [address] * (ABNORMAL) eGFR (05/28/2022 12:08 AM CDT) Pathologist [facility] [place] eGFR 43(L) 90 - 130 mL/min/1. 73 m2 [facility] Comment: Interpretive Data Reference Interval Normal ?>/= [...] Current interpretive data was last reviewed 2021. Blood 05/28/2022 12:0 8 AM CDT 05/28/2022 1:42 AM CDT Nick Manzanares MD LAB BLOOD ORDERABLES Final Result [facility] [place] [address] * Differential, auto (05/28/2022 12:08 AM CDT) Neutrophil abs 4.2 1.7 - 6.5 K/cumm [facility] Imm gran abs 0.1 0.0 - 0.1 K/cumm [facility] Lymphocyte abs 1.4 0.8 - 3.3 K/cumm [facility] Monocyte abs 0.7 0.2 - 0.8 K/cumm [facility] Eosinophil abs 0.0 0.0 - 0.5 K/cumm [facility] Basophil abs 0.0 0.0 - 0.1 K/cumm [facility] Neutrophil pct 65.7 % [facility] Comment: Interpretive Data Percent cell count reference ranges are not reported, since discordance with absolute values may lead to misinterpretation of CBC data. Current Interpretive Data was last revised on 2018. Imm gran pct 0.8 % [facility] Comment: Interpretive Data Percent cell count reference ranges are not reported, since discordance with absolute values may lead to misinterpretation of CBC data. Current Interpretive Data was last revised on 2018. Lymphocyte pct 22.4 % [facility] Comment: Interpretive Data Percent cell count reference ranges are not reported, since discordance with absolute values may lead to misinterpretation of CBC data. Current Interpretive Data was last revised on 2018. Monocyte pct 10.9 % [facility] Comment: Interpretive Data Percent cell count reference ranges are not reported, since discordance with absolute values may lead to misinterpretation of CBC data. Current Interpretive Data was last revised on 2018. Eosinophil pct 0.2 % [facility] Comment: Interpretive Data Percent cell count reference ranges are not reported, since discordance with absolute values may lead to misinterpretation of CBC data. Current Interpretive Data was last revised on 2018. Basophil pct 0.0 % [facility] Comment: Interpretive Data Percent cell count reference ranges are not reported, since discordance with absolute values may lead to misinterpretation of CBC data. Current Interpretive Data was last revised on 2018. Blood 05/28/2022 12:0 8 AM CDT 05/28/2022 1:43 AM CDT us Nick Manzanares MD LAB BLOOD ORDERABLES Final Result [facility] [place] [address] * Magnesium (05/28/2022 12:08 AM CDT) [facility] Magnesium 1.7 1.4 - 2.5 mg/dL [facility] Blood 05/28/2022 12:0 8 AM CDT 05/28/2022 1:42 AM CDT Nick Manzanares MD LAB BLOOD ORDERABLES Final Result Performing Organization Address [facility] de Phone Number [facility] [place] [address] * (ABNORMAL) Hepatic function panel (05/28/2022 12:08 AM CDT) [facility] Bilirubin, total 0.4 0.1 - 1.2 mg/dL [facility] Bilirubin, direct <0.2 0.1 - 0.3 mg/dL [facility] Protein, pl 6.4(L) 6.5 - 8.5 g/dL [facility] Albumin 3.5 3.5 - 5.0 g/dL [facility] Alk phos 112 40 - 130 Units/L [facility] ALT 23 7 - 45 Units/L [facility] AST 39 10 - 45 Units/L [facility] Comment:Hemolyzed; result ma y be falsely elevated Blood 05/28/2022 12:0 8 AM CDT 05/28/2022 1:42 AM CDT Nick Manzanares MD LAB BLOOD ORDERABLES Final Result Performing Organization Address [facility] de Phone Number [facility] [place] [address] * (ABNORMAL) CBC with auto differential (05/28/2022 12:08 AM CDT) [facility] WBC 6.3 3.8 - 9.9 K/cumm [facility] Hgb 10.8(L) 11.9 - 15.5 g/dL [facility] Hct 34.4(L) 35.6 - 45.5 % [facility] Plt 192 150 - 400 K/cumm [facility] MPV 11.0 9.1 - 12.3 fL [facility] RBC 3.52(L) 3.90 - 5.20 M/cumm [facility] MCV 97.7(H) 81.3 - 96.4 fL [facility] MCH 30.7 27.1 - 33.3 pg [facility] MCHC 31.4(L) 32.3 - 35.7 g/dL [facility] RDW CV 12.9 11.1 - 14.9 % [facility] RDW SD 45.8 35.7 - 48.1 fL [facility] NRBC abs 0.00 0.00 - 0.01 K/cumm [facility] Blood 05/28/2022 12:0 8 AM CDT 05/28/2022 1:43 AM CDT Nick Manzanares MD LAB BLOOD ORDERABLES Final Result [facility] [place] [address] * (ABNORMAL) Basic metabolic panel (05/28/2022 12:08 AM CDT) Sodium 143 135 - 145 mmol/L [facility] Potassium, pl 4.5 3.3 - 4.9 mmol/L [facility] Comment:Hemolyzed; Potassium value may be falsely elevated by as much as 0.3-0.5 mmol/L. Suggest redraw and reanalysis. Chloride 102 97 - 110 mmol/L [facility] CO2 32 22 - 32 mmol/L [facility] Anion gap 9 2 - 15 mmol/L [facility] BUN 49(H) 8 - 25 mg/dL [facility] Creatinine 1.31(H) 0.60 - 1.10 mg/dL [facility] Glucose 75 70 - 199 mg/dL [facility] Comment: Interpretive Data Fasting glucose >/= 126 [...] classification and Diagnosis of Diabetes Diabetes Care 2017;40 (Suppl. 1):S11. Current interpretive data was last revised 2017. Calcium 10.0 8.5 - 10.3 mg/dL [facility] Blood 05/28/2022 12:0 8 AM CDT 05/28/2022 1:42 AM CDT us Nick Manzanares MD LAB BLOOD ORDERABLES Final Result Performing Organization Address [facility]/ZIP Co de Phone Number [facility] [place] [address] * (ABNORMAL) Troponin I high-sensitivity 6-hour (05/27/2022 9:48 PM CDT) Trop I hs 18(H) <=17 ng/L [facility] Comment: Interpretive Data For further hscTnI resources including the diagnostic algorithm and an aid in interpretation, copy and paste this link: https://bjhlab.testcatalog.org/show/hsTrop-1 Current Interpretive Data last revised 2020. Trop I hs delta See Comment ng/L [facility] Comment:Inappropriate collec tion time to report a delta. Trop I hs pct delta See Comment % [facility] Comment:Inappropriate collec tion time to report a delta. Trop I hs interp See Comment [facility] Comment:Inappropriate collec tion time to report a delta. Blood 05/27/2022 9:48 PM CDT 05/27/2022 10:31 PM CDT us Luis Fernando Gomez MD LAB BLOOD ORDERABLES Final Re sult Performing Organization Address [facility]/ZIP Co de Phone Number [facility] [place] [address] * Potassium, whole blood (05/27/2022 4:55 PM CDT) Potassium, bld 4.8 3.3 - 4.9 mmol/L [facility] Blood 05/27/2022 4:55 PM CDT 05/27/2022 5:13 PM CDT us Luis Fernando Gomez MD LAB BLOOD ORDERABLES Final Re sult [facility] [place] [address] * (ABNORMAL) COVID-19 Coronavirus RNA Nasopharyngeal (05/27/2022 4:55 PM CDT) COVID-19 RNA Positive(A ) Negative [facility] Nasopharyngeal 05/27/2022 4: 55 PM CDT 05/27/2022 5:15 PM CDT Narrative [facility] - 05/27/2022 5:41 PM CDT Is the patient experiencing any symptoms consistent with COVID (eg. Fever, cough, shortness of breath)?->Yes What is the reason for testing?->Bed placement or semi-private room (Rapid) Date of Symptom Onset->05/22/22 ??Interpretive data: Synonyms for this test include: PCR and NAAT . ??This test is performed using the bubl Xpert Xpress plus assay. This is a real-time RT-PCR test intended for the qualitative detection of nucleic acid from the SARS-CoV-2. This assay has been reviewed by the FDA for Emergency Use Authorization (EUA). The performance characteristics have been verified by the performing laboratory. Results must be considered in the clinical context and a negative result does not rule out infection. Interpretive data last revised April 25, 2022. ??Interpretive data: Synonyms for this test include: PCR and NAAT . ??This test is performed using the bubl Xpert Xpress plus assay. This is a real-time RT-PCR test intended for the qualitative detection of nucleic acid from the SARS-CoV-2. This assay has been reviewed by the FDA for Emergency Use Authorization (EUA). The performance characteristics have been verified by the performing laboratory. Results must be considered in the clinical context and a negative result does not rule out infection. Interpretive data last revised April 25, 2022. Luis Fernando Gomez MD LAB MICROBIOLOGY - GENERAL OR DERABLES Final Result Performing Organization Address [facility] de Phone Number [facility] [place] [address] * (ABNORMAL) Troponin I high-sensitivity 4-hour (05/27/2022 4:55 PM CDT) Trop I hs 21(H) <=17 ng/L [facility] Comment: Interpretive Data For further hscTnI resources including the diagnostic algorithm and an aid in interpretation, copy and paste this link: https://bjhlab.testcatalog.org/show/hsTrop-1 Current Interpretive Data last revised 2020. Trop I hs delta -1 ng/L [facility] Trop I hs interp Insignificant [facility] Blood 05/27/2022 4:55 PM CDT 05/27/2022 5:21 PM CDT Luis Fernando Gomez MD LAB BLOOD ORDERABLES Final Re sult Performing Organization Address [facility] de Phone Number [facility] [place] [address] * ECG 12-LEAD (05/27/2022 3:52 PM CDT) Narrative [facility] - 05/27/2022 3:52 PM CDT Gene Nails MD ? 05/27/2022 ??3:56 PM ECG 12 lead Date/Time: 05/27/2022 3:52 PM Performed by: Gene Nails MD Authorized by: Luis Fernando Gomez MD Rate: ??ECG rate: ??59 beats per minute ??ECG rate assessment: bradycardic ?? Rhythm: ??Rhythm: sinus bradycardia ?? Ectopy: ??Ectopy: none ?? QRS: ??QRS axis: ??Normal ??QRS intervals: ??Normal Conduction: ??Conduction: normal ?? ST segments: ??ST segments: ??Non-specific T waves: ??T waves: normal ?? Previous ECG: ??Previous ECG: ??Compared to current ??Date of previous ECG: ??09/29/2021 ??Similarity: ??Changes noted Interpretation: ??Interpretation: non-specific ?? Recommended Follow-up: ??Recommended follow up: further workup in the ED ?? Procedure Note Gene Nails MD - 05/27/2022 3:52 PM CDT Procedure ECG 12 lead Date/Time: 05/27/2022 3:52 PM Performed by: Gene Nials MD Authorized by: Luis Fernando Gomez MD [...] follow up: further workup in the ED Gene Nails MD 05/27/22 [id number] us Luis Fernando Gomez MD ECG ORDERABLES Final Result [facility] * (ABNORMAL) Troponin I high-sensitivity 2-hour (05/27/2022 2:53 PM CDT) Trop I hs 21(H) <=17 ng/L [facility] Comment: Interpretive Data For further hscTnI resources including the diagnostic algorithm and an aid in interpretation, copy and paste this link: https://bjhlab.testcatalog.org/show/hsTrop-1 Current Interpretive Data last revised 2020. Trop I hs delta -1 ng/L [facility] Trop I hs interp Insignificant [facility] Blood 05/27/2022 2:53 PM CDT 05/27/2022 3:10 PM CDT Luis Fernando Gomez MD LAB BLOOD ORDERABLES Final Re sult [facility] [place] [address] * XR Chest Pa Lateral 2 Vw (05/27/2022 2:47 PM CDT) Anatomical Region Laterality Modality Body, Chest N/A Computed Radiogr aphy 05/27/2022 2:56 PM CDT Impressions 05/27/2022 3:12 PM CDT Small lung volumes. Increasing opacification of the [...] it. Electronically signed by: Sam Salas M.D. Narrative 05/27/2022 3:12 PM CDT EXAMINATION: 2 view chest radiograph Procedure Note Sam Salas MD - 05/27/2022 EXAMINATION: 2 view chest radiograph IMPRESSION: Small lung volumes. Increasing opacification of the [...] it. Electronically signed by: Sam Salas M.D. us Luis Fernando Gomez MD IMG XR PROCEDURES Final Resul t * Hepatic function panel (05/27/2022 1:16 PM CDT) [facility] Bilirubin, total 0.4 0.1 - 1.2 mg/dL [facility] Bilirubin, direct See Comment 0.1 - 0.3 mg/dL [facility] Comment:Credited; Hemolyzed Specimen Protein, pl 7.4 6.5 - 8.5 g/dL [facility] Comment:Hemolyzed; result ma y be falsely elevated Albumin 3.9 3.5 - 5.0 g/dL [facility] Alk phos See Comment 40 - 130 Units/L [facility] Comment:Credited; Hemolyzed Specimen ALT See Comment 7 - 45 Units/L [facility] Comment:Credited; Hemolyzed Specimen AST See Comment 10 - 45 Units/L [facility] Comment:Credited; Hemolyzed Specimen Blood 05/27/2022 1:16 PM CDT 05/27/2022 1:34 PM CDT us Timothy Hernandez MD LAB BLOOD ORDERABLES Fi nal Result [facility] [place] [address] * (ABNORMAL) eGFR (05/27/2022 1:16 PM CDT) [facility] eGFR 43(L) 90 - 130 mL/min/1. 73 m2 [facility] Comment: Interpretive Data Reference Interval Normal ?>/= [...] Current interpretive data was last reviewed 2021. Blood 05/27/2022 1:16 PM CDT 05/27/2022 1:34 PM CDT us Luis Fernando Gomez MD LAB BLOOD ORDERABLES Final Re sult [facility] [place] [address] * Differential, auto (05/27/2022 1:16 PM CDT) Pathologist [facility] [place] Neutrophil abs 6.4 1.7 - 6.5 K/cumm [facility] Imm gran abs 0.0 0.0 - 0.1 K/cumm [facility] Lymphocyte abs 0.9 0.8 - 3.3 K/cumm [facility] Monocyte abs 0.6 0.2 - 0.8 K/cumm [facility] Eosinophil abs 0.0 0.0 - 0.5 K/cumm [facility] Basophil abs 0.0 0.0 - 0.1 K/cumm [facility] Neutrophil pct 81.1 % [facility] Comment: Interpretive Data Percent cell count reference ranges are not reported, since discordance with absolute values may lead to misinterpretation of CBC data. Current Interpretive Data was last revised on 2018. Imm gran pct 0.5 % [facility] Comment: Interpretive Data Percent cell count reference ranges are not reported, since discordance with absolute values may lead to misinterpretation of CBC data. Current Interpretive Data was last revised on 2018. Lymphocyte pct 11.2 % [facility] Comment: Interpretive Data Percent cell count reference ranges are not reported, since discordance with absolute values may lead to misinterpretation of CBC data. Current Interpretive Data was last revised on 2018. Monocyte pct 7.1 % [facility] Comment: Interpretive Data Percent cell count reference ranges are not reported, since discordance with absolute values may lead to misinterpretation of CBC data. Current Interpretive Data was last revised on 2018. Eosinophil pct 0.0 % [facility] Comment: Interpretive Data Percent cell count reference ranges are not reported, since discordance with absolute values may lead to misinterpretation of CBC data. Current Interpretive Data was last revised on 2018. Basophil pct 0.1 % [facility] Comment: Interpretive Data Percent cell count reference ranges are not reported, since discordance with absolute values may lead to misinterpretation of CBC data. Current Interpretive Data was last revised on 2018. Blood 05/27/2022 1:16 PM CDT 05/27/2022 1:33 PM CDT us Luis Fernando Gomez MD LAB BLOOD ORDERABLES Final Re sult [facility] [place] [address] * (ABNORMAL) Pro B-type natriuretic peptide (05/27/2022 1:16 PM CDT) NT-proBNP 1,618(H) <=300 pg/mL [facility] Comment: Interpretive Comments: A. Dyspnea in Acute Care Setting All Ages: ?< 300 pg/ml, acute heart failure unlikely. < 50 yrs: ?300 - 450 pg/ml, further investigation warranted. ? > 450 pg/ml, acute heart failure likely. 50 - 74 yrs: ? 300 - 900 pg/ml, further investigation warranted. ? > 900 pg/ml, acute heart failure likely . > or = 75 yrs: ? 450 - 1800 pg/ml, further investigation warranted. ? > 1800 pg/ml, acute heart failure likely. B. Non-acute Setting < 75 yrs ? < 125 pg/ml, rules out heart failure. ? > or = 125 pg/ml, further investigation warranted. > or = 75 yrs ?< 450 pg/ml, rules out heart failure. ? > or = 450 pg/ml, further investigation warranted. - Knowledge of each individual patient's NT-proBNP range may be more useful than using similar cut-points for every patient. Please note that marked elevations in NT-proBNP levels may be observed in state other than Left Ventricular Congestive Failure, including: acute coronary syndromes, right heart strain/failure (including pulmonary embolism and cor pulmonale), critical illness, renal failure, as well as advanced age. - References: 1. Sam MASON et.al. Eur Heart J. 2006:27:330-337. 2. Anabelle RW, uYdi HUFFMAN. J. AM Steve Cardiol: Cardiovasc Imag. 2009;2: 216- 225. Interpretive Data Last Revised Date: 2018. Blood 05/27/2022 1:16 PM CDT 05/27/2022 1:34 PM CDT us Luis Fernando Gomez MD LAB BLOOD ORDERABLES Final Re sult [id number] [place] [address] * (ABNORMAL) Troponin I high-sensitivity series (baseline, 2hr, 4hr, 6hr) (05/27/2022 1:16 PM CDT) Trop I hs 22(H) <=17 ng/L [facility] Comment: Interpretive Data For further hscTnI resources including the diagnostic algorithm and an aid in interpretation, copy and paste this link: [email or web address] Current Interpretive Data last revised 2020. Blood 05/27/2022 1:16 PM CDT 05/27/2022 1:33 PM CDT Luis Fernando Gomez MD LAB BLOOD ORDERABLES Final Re sult Performing Organization Address [facility] Co de Phone Number [facility] [address] * (ABNORMAL) Blood gas, venous (05/27/2022 1:16 PM CDT) pH, Venous 7.32 7.32 - 7.43 [facility] PCO2, Venous 59(H) 40 - 50 mmHg [facility] PO2, Venous 39 mmHg [facility] Comment: Interpretive Data No Reference Range Established Current Interpretive Data was last revised on 2018. HCO3 Venous, Calculated 32(H) 20 - 30 mmol/L [facility] BE, venous 3 mmol/L [facility] Comment: Interpretive Data No Reference Range Established Current Interpretive Data was last revised on 2018. Blood 05/27/2022 1:16 PM CDT 05/27/2022 1:23 PM CDT Luis Fernando Gomez MD LAB BLOOD ORDERABLES Final Re sult Performing Organization Address [facility]/ZIP Co de Phone Number [facility] [place] [address] * (ABNORMAL) Basic metabolic panel (05/27/2022 1:16 PM CDT) Sodium 142 135 - 145 mmol/L [facility] Potassium, pl See Comment 3.3 - 4.9 mmol/L [facility] Comment:Credited; Hemolyzed Specimen Chloride 102 97 - 110 mmol/L [facility] CO2 32 22 - 32 mmol/L [facility] Anion gap 8 2 - 15 mmol/L [facility] BUN 49(H) 8 - 25 mg/dL [facility] Creatinine 1.31(H) 0.60 - 1.10 mg/dL [facility] Glucose 110 70 - 199 mg/dL [facility] Comment: Interpretive Data Fasting glucose >/= 126 [...] classification and Diagnosis of Diabetes Diabetes Care 2017;40 (Suppl. 1):S11. Current interpretive data was last revised 2017. Calcium 10.0 8.5 - 10.3 mg/dL [facility] Blood 05/27/2022 1:16 PM CDT 05/27/2022 1:34 PM CDT us Luis Fernando Gomez MD LAB BLOOD ORDERABLES Final Re sult [facility] [place] [address] * (ABNORMAL) CBC with auto differential (05/27/2022 1:16 PM CDT) Pathologist [facility] WBC 7.9 3.8 - 9.9 K/cumm [facility] Hgb 11.9 11.9 - 15.5 g/dL [facility] Hct 37.2 35.6 - 45.5 % [facility] Plt 265 150 - 400 K/cumm [facility] MPV 11.6 9.1 - 12.3 fL [facility] RBC 3.83(L) 3.90 - 5.20 M/cumm [facility] MCV 97.1(H) 81.3 - 96.4 fL [facility] MCH 31.1 27.1 - 33.3 pg [facility] MCHC 32.0(L) 32.3 - 35.7 g/dL [facility] RDW CV 13.0 11.1 - 14.9 % [facility] RDW SD 47.0 35.7 - 48.1 fL [facility] NRBC abs 0.00 0.00 - 0.01 K/cumm [facility] Blood 05/27/2022 1:16 PM CDT 05/27/2022 1:33 PM CDT us Luis Fernando Gomez MD LAB BLOOD ORDERABLES Final Re sult [facility] [place] [address] * (ABNORMAL) COVID-19 Coronavirus RNA Nasopharyngeal (05/22/2022 9:32 PM CDT) SCRIBED COVID-19 Coronavirus RNA Positive( A) Not Detected, Negative, Undetected EXTERNAL LAB Comment:Scribed Nasopharyngeal 05/22/2022 9: 32 PM CDT Jersey Encinas MD LAB MICROBIOLOGY - GENERAL ORDERABLES Final Result EXTERNAL LAB documented in this encounter Visit Diagnoses Diagnosis Acute on chronic heart failure (CMS/HCC) (HCC)- Primary Acute on chronic heart failure, unspecified heart failure type (HCC) Longstanding persistent atrial fibrillation (CMS/HCC) (HCC) Morbid obesity with BMI of 45.0-49.9, adult (CMS/HCC) (HCC) STARR on CPAP ILD (interstitial lung disease) (CMS/HCC) (HCC) Postinflammatory pulmonary fibrosis Chronic respiratory failure with hypoxia (CMS/HCC) (HCC) Rheumatoid arthritis (HCC) Hyperlipidemia, unspecified Recurrent major depressive disorder, in partial remission (HCC) COVID-19 Bacterial pneumonia Unspecified bacterial pneumonia Rib fracture Closed fracture of rib(s), unspecified UTI (urinary tract infection) due to Enterococcus Hypothyroidism Unspecified hypothyroidism MIKE (acute kidney injury) (HCC) Hyperkalemia Hyperpotassemia documented in this encounter Administered Medications Inactive Administered Medications - up to 3 most recent administrations Medication Order MAR Action Action Date Dose Rate Site acetaminophen (TYLENOL) tablet 650 mg 650 mg, oral, Every 4 hours PRN, 1st line for pain, fever, fever greater than 38.3 C, Starting on Sat05/27/22 at 1913, Indications: Fever, PainIndications:Fever,Pain Given 06/06/2022 10:08 PM CDT 650 mg Given 06/06/2022 2:28 PM CDT 650 mg Given 06/05/2022 9:01 PM CDT 650 mg albuterol HFA (PROVENTIL HFA,VENTOLIN HFA,PROAIR HFA) 90 mcg/actuation inhaler 2 puff 2 puff, inhalation, Every 4 hours PRN (respiratory supervisor), wheezing, Starting on Sat05/27/22 at 2011 apixaban (ELIQUIS) tablet 5 mg 5 mg, oral, Every 12 hours scheduled, First dose on Sat05/27/22 at 2100, Nurse to discontinue heparin infusion order and associated bolus at first administration of apixaban using ? order condition met? order source, Indications: Venous ThrombosisIndications:Venous Thrombosis Given 06/07/2022 8:48 AM CDT 5 mg Given 06/06/2022 8:05 PM CDT 5 mg Given 06/06/2022 9:03 AM CDT 5 mg aspirin chewable tablet 324 mg 324 mg, oral, Once, On Sat05/27/22 at 1434, For 1 dose Given 05/27/2022 3:01 PM CDT 324 mg azithromycin (ZITHROMAX) 500 mg/255 mL in sodium chloride 0.9% (premix) 500 mg 500 mg, intravenous, at 255 mL/hr, Administer over 60 Minutes, Every 24 hours scheduled, First dose on Sat05/27/22 at 1601, Indications: Pneumonia, Community AcquiredIndications:Pneumonia, Community Acquired New Bag 05/27/2022 4:53 PM CDT 500 mg 255 mL/hr azithromycin (ZITHROMAX) tablet 500 mg 500 mg, oral, Daily, First dose on Sat05/28/22 at 1500, For 2 doses, Indications: Pneumonia, Community AcquiredIndications:Pneumonia, Community Acquired Given 05/29/2022 1:50 PM CDT 500 mg Given 05/28/2022 3:08 PM CDT 500 mg cefTRIAXone (ROCEPHIN) 1,000 mg/10 mL in sterile water (premix) 1,000 mg 1,000 mg, intravenous, at 600 mL/hr, Administer over 1 Minutes, Every 24 hours scheduled, First dose on Sat05/27/22 at 1601, Indications: Pneumonia, Community AcquiredIndications:Pneumonia, Community Acquired Given 05/27/2022 4:53 PM CDT 1,000 mg 600 mL/hr cefTRIAXone (ROCEPHIN) 1,000 mg/10 mL in sterile water (premix) 1,000 mg 1,000 mg, intravenous, at 600 mL/hr, Administer over 1 Minutes, Every 24 hours scheduled, First dose (after last modification) on Sat05/28/22 at 1600, For 2 doses, Indications: Pneumonia, Community AcquiredIndications:Pneumonia, Community Acquired Given 05/29/2022 3:53 PM CDT 1,000 mg 600 mL/hr Given 05/28/2022 4:10 PM CDT 1,000 mg 600 mL/hr cholecalciferol (VITAMIN D-3) capsule 1,000 Units 1,000 Units, oral, Daily, First dose on Sat05/27/22 at 204 Given 06/07/2022 8:48 AM CDT 1,000 Units Given 06/06/2022 9:04 AM CDT 1,000 Units Given 06/05/2022 8:51 AM CDT 1,000 Units cholestyramine-aspartame (QUESTRAN LIGHT) 4 gram packet 1 packet 1 packet, oral, Daily (early AM), First dose on Sat05/28/22 at 0600, Mix with water or juice. Schedule other medications 1 hour before or 4 hours after cholestyramine. Given 06/07/2022 5:47 AM CDT 1 pa cket Given 06/05/2022 5:06 AM CDT 1 packet Given 06/04/2022 5:43 AM CDT 1 packet cyanocobalamin (Vitamin B-12) tablet 2,000 mcg 2,000 mcg, oral, Daily, First dose on Sat05/27/22 at 2045 Given 06/07/2022 8:48 AM CDT 2,000 mcg Given 06/06/2022 9:04 AM CDT 2,000 mcg Given 06/05/2022 8:50 AM CDT 2,000 mcg furosemide (LASIX) 10 mg/mL injection 40 mg 40 mg, intravenous, Once, On Sat05/27/22 at 1511, For 1 dose, For IV push: administer doses < 160 mg at a rate of 20 -40 mg/min. Doses >/= 160 mg should be administered no faster than 4 mg/min. Room temperature only Given 05/27/2022 4:5 3 PM CDT 40 mg furosemide (LASIX) 10 mg/mL injection 40 mg 40 mg, intravenous, Once, On Sat05/29/22 at 1245, For 1 dose, For IV push: administer doses < 160 mg at a rate of 20 -40 mg/min. Doses >/= 160 mg should be administered no faster than 4 mg/min. Room temperature only Given 05/29/2022 1:3 9 PM CDT 40 mg furosemide (LASIX) 10 mg/mL injection 60 mg 60 mg, intravenous, Once, On Sat05/28/22 at 0900, For 1 dose, For IV push: administer doses < 160 mg at a rate of 20 -40 mg/min. Doses >/= 160 mg should be administered no faster than 4 mg/min. Room temperature only Given 05/28/2022 8:5 6 AM CDT 60 mg furosemide (LASIX) tablet 60 mg 60 mg, oral, Daily, First dose on Sat05/30/22 at 0900, Indications: Peripheral Edema due to Chronic Heart Failure, On hold since Sat06/03/2022 at 0825 until manually unheldIndications:Peripheral Edema due to Chronic Heart Failure Given 06/02/2022 8:30 AM CDT 60 mg Given 06/01/2022 8:08 AM CDT 60 mg Given 05/31/2022 9:04 AM CDT 60 mg hydrOXYchloroQUINE (PLAQUENIL) tablet 200 mg 200 mg, oral, 2 times daily, First dose on Sat05/27/22 at 2100, Do not crush, break, or open. Administer with food to decrease GI adverse effects if tolerating a diet. Oral liquid is preferred for per tube administration. Given 06/07/2022 8:48 AM CDT 200 mg Given 06/06/2022 8:05 PM CDT 200 mg Given 06/06/2022 9:04 AM CDT 200 mg ipratropium-albuteroL (DUO-NEB) 0.5-2.5 mg/3 mL nebulizer solution 3 mL 3 mL, nebulization, 4 times daily (respiratory supervisor), First dose on Sat05/27/22 at 1525, Indications: Chronic Obstructive Pulmonary Disease with BronchospasmsIndications:Chronic Obstructive Pulmonary Disease with Bronchospasms Given 05/27/2022 5:29 PM CDT 3 mL levothyroxine (SYNTHROID) tablet 112 mcg 112 mcg, oral, Daily, First dose on Sat05/28/22 at 0600, Administer on an empty stomach, preferably 30 minutes before breakfast. Take 4 hours apart from antacids, iron and calcium products. Separate from tube feeds, if applicable. Given 06/07/2022 5:47 AM CDT 112 mcg Given 06/06/2022 5:45 AM CDT 112 mcg Given 06/05/2022 5:06 AM CDT 112 mcg linezolid (ZYVOX) tablet 600 mg 600 mg, oral, 2 times daily, First dose on Sat06/01/22 at 1430, For 7 days, Indications: Urinary Tract/Genitourinary InfectionIndications:Urinary Tract/Genitourinary Infection Given 06/07/2022 8:48 AM CDT 600 mg Given 06/06/2022 8:06 PM CDT 600 mg Given 06/06/2022 9:03 AM CDT 600 mg magnesium sulfate 4 g/100 mL in water (premix) 4 g 4 g, intravenous, Administer over 90 Minutes, Once, On Sat05/29/22 at 0030, For 1 dose New Bag 05/29/2022 1:53 AM CDT 4 g metoprolol XL (TOPROL-XL) extended release tablet 100 mg 100 mg, oral, Daily, First dose (after last modification) on Sat05/31/22 at 0900, Tablets that are scored may be split, but do not crush, chew, dissolve, open or otherwise manipulate tablet/capsule. Given 06/03/2022 8:36 AM CDT 100 mg Given 06/02/2022 8:29 AM CDT 100 mg Given 06/01/2022 8:08 AM CDT 100 mg metoprolol XL (TOPROL-XL) extended release tablet 125 mg 125 mg, oral, Daily, First dose on Sat05/28/22 at 0900, Tablets that are scored may be split, but do not crush, chew, dissolve, open or otherwise manipulate tablet/capsule. Given 05/30/2022 9:04 AM CDT 125 mg Given 05/29/2022 9:03 AM CDT 125 mg Given 05/28/2022 8:53 AM CDT 125 mg metoprolol XL (TOPROL-XL) extended release tablet 50 mg 50 mg, oral, Daily, First dose (after last modification) on Sat06/04/22 at 0900, Tablets that are scored may be split, but do not crush, chew, dissolve, open or otherwise manipulate tablet/capsule., On hold since Sat06/04/2022 at 1038 until manually unheld Given 06/04/2022 8:50 AM CDT 50 m g pravastatin (PRAVACHOL) tablet 80 mg 80 mg, oral, Daily, First dose on Sat05/28/22 at 0900 Given 06/07/2022 8:48 AM CDT 80 mg Given 06/06/2022 9:03 AM CDT 80 mg Given 06/05/2022 8:51 AM CDT 80 mg predniSONE (DELTASONE) tablet 15 mg 15 mg, oral, Every morning, First dose on Sat05/28/22 at 0900 Given 06/07/2022 8:48 AM CDT 15 mg Given 06/06/2022 9:03 AM CDT 15 mg Given 06/05/2022 8:50 AM CDT 15 mg ramelteon (ROZEREM) tablet 8 mg 8 mg, oral, Nightly PRN, sleep, Starting on 05/27/22 at 1913, Indications: Sleep-Onset InsomniaIndications:Sleep-Onset Insomnia Given 06/06/2022 10:08 PM CDT 8 mg Given 06/03/2022 9:03 PM CDT 8 mg Given 06/02/2022 8:49 PM CDT 8 mg remdesivir (VEKLURY) 100 mg in sodium chloride 0.9% 250 mL IVPB 100 mg, intravenous, at 270 mL/hr, Administer over 60 Minutes, Every 24 hours, First dose on Sat05/28/22 at 2130, For 2 doses, Do not shake or tube., [facility] appropriate use criteria for remdesivir are limited to the following below options. It is recommended that therapy for infections outside of these indications be discussed with infectious diseases, if available. Laboratory- confirmed symptomatic COVID-19 with risk factor for progression to severe, Indications: COVID-19Indications:COVID-19 New Bag 05/28/2022 8:41 PM CDT 100 mg 27 0 mL/hr remdesivir (VEKLURY) 200 mg in sodium chloride 0.9% 250 mL IVPB 200 mg, intravenous, at 290 mL/hr, Administer over 60 Minutes, Every 24 hours, First dose on Sat05/27/22 at 2030, For 1 dose, Do not shake or tube., [facility] appropriate use criteria for remdesivir are limited to the following below options. It is recommended that therapy for infections outside of these indications be discussed with infectious diseases, if available. Laboratory- confirmed symptomatic COVID-19 with risk factor for progression to severe, Indications: COVID-19Indications:COVID-19 New 05/27/2022 10:09 PM CDT 200 mg 2 90 mL/hr sertraline (ZOLOFT) tablet 50 mg 50 mg, oral, Daily, First dose on Sat05/27/22 at 2100, On hold since Sat06/01/2022 at 1349 until manually unheld Given 05/31/2022 9:47 PM CDT 50 mg Given 05/30/2022 9:39 PM CDT 50 mg Given 05/29/2022 9:18 PM CDT 50 mg sodium zirconium cyclosilicate (LOKELMA) packet 10 g 10 g, oral, 3 times daily, First dose (after last modification) on Sat06/06/22 at 0945, For 2 doses, Adjust medication timing to ensure other oral medications are administered at least 2 hours before or 2 hours after sodium zirconium cyclosilicate. Empty packet(s) into a glass with 3 tablespoons (45 mL) of water. Stir and administer immediately. Repeat until no powder remains in glass., Indications: hyperkalemiaIndications:hyperkalemia Given 06/06/2022 2:20 PM CDT 10 g Given 06/06/2022 10:09 AM CDT 10 g trimethoprim (TRIMPEX) tablet 100 mg 100 mg, oral, Nightly, First dose on Sat05/27/22 at 2100, On hold since Sat06/04/2022 at 1804 until manually unheld Given 06/03/2022 9:03 PM CDT 100 mg Given 06/02/2022 8:50 PM CDT 100 mg Given 06/01/2022 10:49 PM CDT 100 mg umeclidinium-vilanteroL (ANORO ELLIPTA) 62.5-25 mcg/actuation inhaler 1 puff 1 puff, inhalation, Daily (respiratory supervisor), First dose on Sat05/28/22 at 0900 Given 05/30/2022 8:24 AM CDT 1 puff Given 05/28/2022 7:42 AM CDT 1 puff umeclidinium-vilanteroL (ANORO ELLIPTA) 62.5-25 mcg/actuation inhaler 1 puff 1 puff, inhalation, Daily, First dose (after last modification) on [facility] 05/31/22 at 0900, RN to administer. Given 06/07/2022 8:52 AM CDT 1 puff Given 06/06/2022 10:08 AM CDT 1 puff Given 06/04/2022 11:26 AM CDT 1 puff documented in this encounter Discontinued Medications Medication Sig Discontinue Reason Start Date End Da te metoprolol XL (TOPROL-XL) 25 mg extended release tablet TAKE 1 TABLET(25 MG) BY MOUTH DAILY Stop Taking at Discharge 05/09/2022 06/07/2022 metoprolol XL (TOPROL-XL) 100 mg 24 hr tablet TAKE 1 TABLET(100 MG) BY MOUTH TREASURY ACCOUNTANT BEFORE BREAKFAST Stop Taking at Discharge 05/09/2022 06/07/2022 potassium chloride ER (KLOR-CON) 10 mEq CR tabletIndications:Chr onic heart failure with preserved ejection fraction (CMS/HCC) (HCC) Take 3 tablet/capsule (30 mEq total) by mouth daily Stop Taking at Discharge 05/10/2022 06/07/2022 furosemide (LASIX) 40 mg tabletIndications:Chr onic heart failure with preserved ejection fraction (CMS/HCC) (HCC) Take 1 tablet (40 mg total) by mouth daily To be taken along with furosemide 20 mg tab daily (TOTAL 60MG) Stop Taking at Discharge 05/10/2022 06/07/2022 furosemide (LASIX) 20 mg tabletIndications:Chr onic heart failure with preserved ejection fraction (CMS/HCC) (HCC) Take 1 tablet (20 mg total) by mouth daily To be taken along with furosemide 40 mg tab daily (TOTAL 60MG) Stop Taking at Discharge 05/10/2022 06/07/2022 documented as of this encounter Active and Recently Administered Medications Times are shown in CDT. Scheduled Medication Order 06/05/2022 06/06/2022 06/07/2022 apixaban (ELIQUIS) tablet 5 mg 5 mg, oral, Every 12 hours scheduled, First dose on 05/27/22 at 2100, Nurse to discontinue heparin infusion order and associated bolus at first administration of apixaban using ? order condition met? order source, Indications: Venous Thrombosis 0850 (Given - Provider: Ileana Giordano RN)2100 (Given - Provider: Ivanna Cyr RN) 09 (Given - Provider: Missy [place] RN)2004 (Given - Provider: Alexandra Mason) 0848 (Given - Provider: Ata Plata) cholecalciferol (VITAMIN D-3) capsule 1,000 Units 1,000 Units, oral, Daily, First dose on 05/27/22 at 2045 0851 (Given - Provider: Ileana Giordano RN) 0904 (Given - Provider: Missy [place] RN) 0848 (Given - Provider: Ata Plata) cholestyramine-aspartame (QUESTRAN LIGHT) 4 gram packet 1 packet 1 packet, oral, Daily (early AM), First dose on Sat05/28/22 at 0600, Mix with water or juice. Schedule other medications 1 hour before or 4 hours after cholestyramine. 0506 (Given - Provider: Ivanna Cyr RN)1452 (Held by Provider - Provider: Edilma Chang MD - Reason: Other) 0600 (Dose Auto Held - Provider: Edilma Chang MD)1417 (Unheld by Provider - Provider: Silverio Daley MD) 0547 (Given - Provider: Alexandra Mason) cyanocobalamin (Vitamin B-12) tablet 2,000 mcg 2,000 mcg, oral, Daily, First dose on 05/27/22 at 2045 0850 (Given - Provider: Ileana Giordano RN) 0904 (Given - Provider: Missy [place] RN) 0848 (Given - Provider: Ata Plata) hydrOXYchloroQUINE (PLAQUENIL) tablet 200 mg 200 mg, oral, 2 times daily, First dose on Sat05/27/22 at 2100, Do not crush, break, or open. Administer with food to decrease GI adverse effects if tolerating a diet. Oral liquid is preferred for per tube administration. 0851 (Given - Provider: Ileana Giordano RN)2100 (Given - Provider: Ivanna Cyr RN) 09 (Given - Provider: Missy [place] RN)2004 (Given - Provider: Alexandra Mason) 0848 (Given - Provider: Ata Plata) levothyroxine (SYNTHROID) tablet 112 mcg 112 mcg, oral, Daily, First dose on Sat05/28/22 at 0600, Administer on an empty stomach, preferably 30 minutes before breakfast. Take 4 hours apart from antacids, iron and calcium products. Separate from tube feeds, if applicable. 0506 (Given - Provider: Ivanna Cyr RN) 0545 (Given - Provider: Ivanna Cyr RN) 0547 (Given - Provider: Alexandra Mason) linezolid (ZYVOX) tablet 600 mg 600 mg, oral, 2 times daily, First dose on Sat06/01/22 at 1430, For 7 days, Indications: Urinary Tract/Genitourinary Infection 0850 (Given - Provider: Ileana Giordano RN)2099 (Given - Provider: Ivanna Cyr RN) 09 (Given - Provider: Missy [place], BILLY)2005 (Given - Provider: Alexandra Mason) 0848 (Given - Provider: Ata Plata) pravastatin (PRAVACHOL) tablet 80 mg 80 mg, oral, Daily, First dose on Sat05/28/22 at 0900 0851 (Given - Provider: Ileana Giordano RN) 09 (Given - Provider: Missy [place] RN) 0848 (Given - Provider: Ata Plata) predniSONE (DELTASONE) tablet 15 mg 15 mg, oral, Every morning, First dose on Sat05/28/22 at 0900 0850 (Given - Provider: Ileana Giordano RN) 0903 (Given - Provider: Missy [place] RN) 0848 (Given - Provider: Ata Plata) sertraline (ZOLOFT) tablet 50 mg 50 mg, oral, Daily, First dose on Sat05/27/22 at 2100, On hold since Sat06/01/2022 at 1349 until manually unheld 2100 (Dose Auto Held - Provider: Joann Lyon NP) 2099 (Dose Auto Held) 2240 (Unheld by Provider - Provider: Automatic Discharge Provider) sodium zirconium cyclosilicate (LOKELMA) packet 10 g (COMPLETED) 10 g, oral, 3 times daily, First dose (after last modification) on Sat06/06/22 at 0945, For 2 doses, Adjust medication timing to ensure other oral medications are administered at least 2 hours before or 2 hours after sodium zirconium cyclosilicate. Empty packet(s) into a glass with 3 tablespoons (45 mL) of water. Stir and administer immediately. Repeat until no powder remains in glass., Indications: hyperkalemia 1009 (Given - Provider: Missy [place] RN)1420 (Given - Provider: Missy [place] RN) trimethoprim (TRIMPEX) tablet 100 mg 100 mg, oral, Nightly, First dose on Sat05/27/22 at 2100, On hold since Sat06/04/2022 at 1804 until manually unheld 2100 (Dose Auto Held - Provider: Tamera Garza MD) 2099 (Dose Auto Held - Provider: Tamera Garza MD) 2240 (Unheld by Provider - Provider: Automatic Discharge Provider) umeclidinium-vilanteroL (ANORO ELLIPTA) 62.5-25 mcg/actuation inhaler 1 puff 1 puff, inhalation, Daily, First dose (after last modification) on [facility] 05/31/22 at 0900, RN to administer. 0900 (Not Given - Provider: Ileana Giordano RN - Reason: Medication not available) 1008 (Given - Provider: Missy [place] RN) 0852 (Given - Provider: Ata Plata) PRN Medication Order 06/05/2022 06/06/2022 06/07/2022 acetaminophen (TYLENOL) tablet 650 mg 650 mg, oral, Every 4 hours PRN, 1st line for pain, fever, fever greater than 38.3 C, Starting on 05/27/22 at 1913, Indications: Fever, Pain 2100 (Given - Provider: Ivanna Cyr RN) 142 (Given - Provider: Missy [place], BILLY)2207 (Given - Provider: Alexandra Mason) albuterol HFA (PROVENTIL HFA,VENTOLIN HFA,PROAIR HFA) 90 mcg/actuation inhaler 2 puff 2 puff, inhalation, Every 4 hours PRN (respiratory supervisor), wheezing, Starting on 05/27/22 at 2010 polyethylene glycol (MIRALAX) packet 17 g 17 g, oral, Daily PRN, constipation, Starting on 05/27/22 at 1913, Indications: constipation ramelteon (ROZEREM) tablet 8 mg 8 mg, oral, Nightly PRN, sleep, Starting on 05/27/22 at 1913, Indications: Sleep-Onset Insomnia 2207 (Given - Provider: Alexandra Mason) traMADoL (ULTRAM) tablet 25 mg 25 mg, oral, Every 8 hours PRN, 2nd line for pain, Starting on 05/27/22 at 2010 documented in this encounter Orders Medications Ordered That Jorge Luis ht Not Have Been Administered Count Last Ordered Date First Ordered Date dextrose (D10W) 10% bolus 250 mL 1 06/06/20 insulin regular (HumuLIN R, NovoLIN R) 100 unit/mL injection 10 Units 1 06/06/2022 sodium zirconium cyclosilica te (LOKELMA) packet 10 g 2 06/06/2022 furosemide (LASIX) tablet 40 mg 1 albuterol HFA (PROVENTIL HFA ,VENTOLIN HFA,PROAIR HFA) 90 mcg/actuation inhaler 2 puff 1 05/27/2022 polyethylene glycol (MIRALAX) packet 17 g 1 05/27/2022 traMADoL (ULTRAM) tablet 25 mg 1 05/27/2022 Lab Orders Without Results Count Last Ordered D ate First Ordered Date POCT GLUCOSE DEVICE 1 06/06/2022 HEPATIC FUNCTION PANEL 1 05/27/2022 Nursing Count Last Ordered Date First Orde red Date TELEMETRY MONITORING 1 05/29/2022 CONTINUOUS PULSE OXIMETRY 1 05/27/2022 INCENTIVE SPIROMETRY NURSING 1 05/27/2022 WEIGH PATIENT 1 05/27/2022 Consult Count Last Ordered Date First Orde red Date CONSULT TO WOUND CARE 1 05/28/2022 Isolation Count Last Ordered Date First Orde red Date INITIATE AIRBORNE ISOLATION 1 05/27/2022 INITIATE CONTACT ISOLATION 1 05/27/2022 Admission Count Last Ordered Date First Orde red Date ADMIT TO INPATIENT 1 05/27/2022 Discharge Count Last Ordered Date First Orde red Date DISCHARGE PATIENT 1 06/07/2022 CORE MEASURES Count Last Ordered Date First Ord ered Date REASON FOR NO VTE PROPHYLAXIS AT ADMISSION 1 05/27/2022 documented in this encounter Additional Health Concerns [...] the result is from a facility outside [facility] . 05/22/2022 05/27/2022 06/17/2022 3:05 AM CDT documented as of this encounter Care Teams Singer And Unloader Relationship Specialty Start Date End Date Modesto Reyez DO PCP - General Internal Medicine 01/03/20 01/13/23 documented as of this encounter
--- OUTSIDE RECORDS SUMMARY | 2024-11-15 05:58 | XMS_ITS | Encounter Summary ---
Author Organization [facility] Address [address] [place] [address] Care Team Providers Care Email Marketing Manager Name Role Phone Modesto Reyez DO Primary Care Provider [phone] Encounter Details Date Type Department Care Team (Late st Contact Info) Description 10/03/2021 Orders Only [facility] Cardiology [address] [facility] [address] [facility] [address] [place] [address] Romy Price MD [address] [facility] [address] [facility] [address] [place] [address] Social History Tobacco Use Types Packs/Day Years Used Date Smoking Tobacco: Never Smokeless Tobacco: Never Alcohol Use Standard Drinks/Week Comments Not Currently 0 (1 standard drink = 0.6 oz pur e alcohol) Comments Unknown Sex and Gender Information Value Date Recorded Sex Assigned at Not on file Legal Sex Female 1:14 AM ETHANOL OPERATOR Gender Identity Female 05/04/2020 3:33 PM CDT Sexual Orientation Not on file documented as of this encounter Plan of Treatment Not on file documented as of this encounter Procedures Procedure Name Priority Date/Time Associated Diagnosis Comments CARDIOLOGY DOCUMENT SCAN Routine 10/03/2021 documented in this encounter Results * SCAN - CARDIOLOGY (10/03/2021) Anatomical Region Laterality Modality Other Romy Price MD CV CARDIAC SERVICES PROCEDU RES Final Result documented in this encounter Visit Diagnoses Not on filedocumented in this encounter Care Teams Email Marketing Manager Relationship Specialty Start Date End Date Modesto Reyez DO PCP - General Internal Medicine 01/03/20 01/13/23 documented as of this encounter
--- OUTSIDE RECORDS SUMMARY | 2024-11-15 05:58 | XMS_ITS | Encounter Summary ---
Author Organization 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) Procedures XR Hip Right 2 or 3 Views XR Hip Right 4 or More Views Sandra Bauman MD [address] [facility] [address] [address] [place] [address] Phone: tel: fax: [address] [phone] Referral ID Status Reason Start Date Expiration Date Visits Re quested Visits Authorized [id number] Closed 03/09/2022 04/08/2023 1 1 Encounter Details Date Type Department Care Team (Latest Contact Info) Description 03/09/2022 9:27 AM CDT - 03/09/2022 11:59 PM CDT Hospital Encounter [facility] [address] [place] [id number] Sandra Bauman MD [address] [facility] [address] [address] [place] [address] 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) [...] on file Legal Sex Female 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 Gender Identity Female 05/04/2020 3:33 PM CDT Sexual Orientation Not on file 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 Not on file [...] (80 mg total) by mouth daily 01/22/2020 cholestyramine (QUESTRAN) 4 gram packet 06/09/2020 3 cyanocobalamin 2,000 mcg tablet Take 1,000 mcg by mouth daily 2 furosemide (LASIX) 40 mg tablet TAKE 1 TABLET BY MOUTH EVERY MORNING AND ONE-HALF TABLET BY MOUTH EVERY EVENING 135 tablet 3 09/06/2020 2 hydroxychloroqui ne (PLAQUENIL) 200 mg tablet Take 1 tablet (200 mg total) by mouth 2 (two) times a day 11/26/2019 4 metoprolol XL (TOPROL-XL) 100 mg 24 hr tablet TAKE 1 TABLET(100 MG) BY MOUTH LEAD CONSULTANT BEFORE BREAKFAST 90 tablet 3 05/18/2021 2 metoprolol XL (TOPROL-XL) 25 mg extended release tablet TAKE 1 TABLET(25 MG) BY MOUTH DAILY 90 tablet 3 05/18/2021 2 phenazopyridine (PYRIDIUM) 200 mg tablet TAKE 1 TABLET BY MOUTH THREE TIMES DAILY NEEDED FOR URINARY SYMPTOMS 11/10/2021 2 potassium chloride ER (KLOR-CON) 10 mEq CR tablet Take 10 mEq by mouth daily 2 predniSONE (DELTASONE) 10 mg tablet Take 10 mg by mouth every morning 10/24/2021 2 predniSONE (DELTASONE) 5 mg tablet Take 15 mg by mouth every morning 02/15/2022 2 sertraline (ZOLOFT) 50 mg tablet Take 50 mg by mouth daily 10/23/2021 2 traMADoL (ULTRAM) 50 mg tablet Take by mouth every 8 (eight) hours as needed 12/21/2021 2 trimethoprim (TRIMPEX) 100 mg tablet Take 100 mg by mouth nightly at bedtime. 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) Once for 1 Occurrences starting 03/09/2022 until 03/09/2022 documented as of this encounter Procedures Procedure Name Priority Date/Time Associated Diagnosis Comments XR HIP RIGHT 2 OR 3 VIEWS Schedule Routine, Read Routine (OP Routine) 03/09/2022 10:11 AM CDT 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) XR SHOULDER LEFT 2 OR MORE VIEWS Schedule Routine, Read Routine (OP Routine) 03/09/2022 10:11 AM CDT 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 ??Mild bilateral acromioclavicular and glenohumeral joint osteoarthritis. 2. 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 These findings can be seen in patients with erosive arthritis, possibly calcium pyrophosphate deposition disease. 3. ??Mild to moderate multifocal osteoarthritis of both hands. 4. ??Severe right hip joint osteoarthritis. Electronically signed by: Kieran Tay MD Narrative 03/09/2022 10:20 AM CDT EXAMINATION: 1. ??XR SHOULDER RIGHT 2 OR MORE VIEWS 2. ??XR SHOULDER LEFT 2 OR MORE VIEWS 3. ??XR HIP RIGHT 2 OR 3 VIEWS 4. ??XR HAND BILATERAL 3 OR MORE VIEWS OF EACH HISTORY: ??Rheumatoid arthritis, polyarthralgia FINDINGS: Shoulders: 3 radiographs of each shoulder submitted for interpretation without comparison. Alignment of both shoulders is normal. No acute fracture is identified. There are small osteophytes at the bilateral acromioclavicular and glenohumeral joints, more pronounced on the left side. Hands: 3 radiographs of each hand are submitted for interpretation without comparison. There is no acute fracture or dislocation. There is moderate narrowing of the bilateral thumb carpometacarpal and triscaphe joint spaces. There is also mild narrowing of multiple distal interphalangeal joints spaces with very small osteophyte formation. The metacarpophalangeal joints are normal. There is chondrocalcinosis of the bilateral triangular fibrocartilage complexes. Multiple osseous erosions are seen in both wrists. Right hip: 2 radiographs of the right hip are submitted for interpretation without comparison. No acute fracture or dislocation. There is severe, nonuniform narrowing of the right hip joint space with subchondral sclerosis and cyst formation. There is a rim of osteophytes along the femoral head. Procedure Note Windy Tay MD - 03/09/2022 EXAMINATION: 1. XR SHOULDER RIGHT 2 OR MORE VIEWS 2. XR SHOULDER LEFT 2 OR MORE VIEWS 3. XR HIP RIGHT 2 OR 3 VIEWS 4. XR HAND BILATERAL 3 OR MORE VIEWS OF EACH HISTORY: Rheumatoid arthritis, polyarthralgia FINDINGS: Shoulders: 3 radiographs of each shoulder submitted for interpretation without comparison. Alignment of both shoulders is normal. No acute fracture is identified. There are small osteophytes at the bilateral acromioclavicular and glenohumeral joints, more pronounced on the left side. Hands: 3 radiographs of each hand are submitted for interpretation without comparison. There is no acute fracture or dislocation. There is moderate narrowing of the bilateral thumb carpometacarpal and triscaphe joint spaces. There is also mild narrowing of multiple distal interphalangeal joints spaces with very small osteophyte formation. The metacarpophalangeal joints are normal. There is chondrocalcinosis of the bilateral triangular fibrocartilage complexes. Multiple osseous erosions are seen in both wrists. Right hip: 2 radiographs of the right hip are submitted for interpretation without comparison. No acute fracture or dislocation. There is severe, nonuniform narrowing of the right hip joint space with subchondral sclerosis and cyst formation. There is a rim of osteophytes along the femoral head. IMPRESSION: 1. Mild bilateral acromioclavicular and glenohumeral joint osteoarthritis. 2. 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 These findings can be seen in patients with erosive arthritis, possibly calcium pyrophosphate deposition disease. 3. Mild to moderate multifocal osteoarthritis of both hands. 4. Severe right hip joint osteoarthritis. 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
--- OUTSIDE RECORDS SUMMARY | 2024-11-15 05:58 | XMS_ITS | Encounter Summary ---
Author Organization [facility] Healthcare Address [address] [place] [address] Care Team Providers Care Ethnology Professor Name Role Phone Aissatou Modesto PADILLA Primary Care Provider [phone] Reason for Referral * Diagnostic Imaging (Routine) - Closed Specialty Diagnoses / Procedures Referred By Contac t Referred To Contact Diagnoses ILD (interstitial lung disease) (CMS/HCC) (HCC) Procedures XR Chest Pa Lateral 2 Views Denita Correa MD [address] [address] Phone: tel: fax: [address] [phone] Referral ID Status Reason Start Date Expiration Date Visits Re quested Visits Authorized [id number] Closed 06/07/2021 07/07/2022 1 1 ACE PROCESS PLANT OPERATOR Reason for Visit * Diagnostic Imaging (Routine) - Closed Specialty Diagnoses / Procedures Referred By Contac t Referred To Contact Diagnoses ILD (interstitial lung disease) (CMS/HCC) (HCC) Procedures XR Chest Pa Lateral 2 Views Denita Correa MD [address] [address] Phone: tel: fax: [address] [phone] Referral ID Status Reason Start Date Expiration Date Visits Re quested Visits Authorized [id number] Closed 06/07/2021 07/07/2022 1 1 Encounter Details Date Type Department Care Team (Latest Contact Info) Description 11/03/2021 8:14 AM FURNACE PROCESS PLANT OPERATOR - 11/03/2021 11:59 PM FURNACE PROCESS PLANT OPERATOR Hospital Encounter [facility]) [facility] [place] [address] Denita Correa MD [address] [place], [place] [id number] ILD (interstitial lung disease) (CMS/HCC) ([facility]) Discharge Disposition: Discharge to home or self care Social History Tobacco Use Types Packs/Day Years Used Date Smoking Tobacco: Never Smokeless Tobacco: Never Alcohol Use Standard Drinks/Week Comments Not Currently 0 (1 standard drink = 0.6 oz pur e alcohol) Comments Unknown Sex and Gender Information Value Date Recorded Sex Assigned at Not on file Legal Sex Female 1:14 AM FURNACE PROCESS PLANT OPERATOR Gender Identity Female 05/04/2020 3:33 PM [...] (80 mg total) by mouth daily 01/22/2020 albuterol HFA (PROVENTIL HFA,VENTOLIN HFA,PROAIR HFA) 90 mcg/actuation inhaler INHALE 2 PUFFS EVERY 6 HOURS NEEDED FOR SHORTNESS OF BREATH OR WHEEZING 10/09/2021 2 cholestyramine (QUESTRAN) 4 gram packet 06/09/2020 3 cyanocobalamin 2,000 mcg tablet Take 1,000 mcg by mouth daily 2 folic acid (FOLVITE) 1 mg tablet Take 1 mg by mouth daily 12/14/2019 2 furosemide (LASIX) 40 mg tablet TAKE 1 TABLET BY MOUTH EVERY MORNING AND ONE-HALF TABLET BY MOUTH EVERY EVENING 135 tablet 3 09/06/2020 2 hydroxychloroqui ne (PLAQUENIL) 200 mg tablet Take 1 tablet (200 mg total) by mouth 2 (two) times a day 11/26/2019 4 methotrexate 2.5 mg tablet Take 2.5 mg by mouth once a week Take 5 tablets once weekly 01/21/2020 2 metoprolol XL (TOPROL-XL) 100 mg 24 hr tablet TAKE 1 TABLET(100 MG) BY MOUTH ESL TEACHER BEFORE BREAKFAST 90 tablet 3 05/18/2021 2 metoprolol XL (TOPROL-XL) 25 mg extended release tablet TAKE 1 TABLET(25 MG) BY MOUTH DAILY 90 tablet 3 05/18/2021 2 potassium chloride ER (KLOR-CON) 10 mEq CR tablet Take 10 mEq by mouth daily 2 predniSONE (DELTASONE) 10 mg tablet Take 10 mg by mouth every morning 10/24/2021 2 sertraline (ZOLOFT) 50 mg tablet Take 50 mg by mouth daily 10/23/2021 2 documented as of this encounter Discharge Disposition Disposition Code Departure Means Destination Discharge to home or self care documented in this encounter Plan of Treatment Not on file documented as of this encounter Procedures Procedure Name Priority Date/Time Associated Diagnosis Comments XR CHEST PA LATERAL 2 VIEWS Schedule Routine, Read Routine (OP Routine) 11/03/2021 8:21 AM FURNACE PROCESS PLANT OPERATOR ILD (interstitial lung disease) (CMS/HCC) (HCC) documented in this encounter Results * XR Chest Pa Lateral 2 Views (11/03/2021 8:21 AM FURNACE PROCESS PLANT OPERATOR) Anatomical Region Laterality Modality Body, Chest N/A Computed Radiogr aphy 11/03/2021 8:32 AM FURNACE PROCESS PLANT OPERATOR Impressions 11/03/2021 8:32 AM FURNACE PROCESS PLANT OPERATOR Comparison made to the outside CT examination of 01/02/2020 Diffuse bilateral interstitial opacities consistent with chronic interstitial disease are noted. There is no pleural effusion or pneumothorax. Heart size and mediastinal contours within normal limits. Electronically signed by: Rema Gorman M.D. Narrative 11/03/2021 8:32 AM FURNACE PROCESS PLANT OPERATOR EXAMINATION: 2 view chest radiograph Procedure Note Rema Gorman MD - 11/03/2021 EXAMINATION: 2 view chest radiograph IMPRESSION: Comparison made to the outside CT examination of 01/02/2020 Diffuse bilateral interstitial opacities consistent with chronic interstitial disease are noted. There is no pleural effusion or pneumothorax. Heart size and mediastinal contours within normal limits. Electronically signed by: Rema Gorman M.D. Denita Correa MD IMG XR PROCEDURES Final Resu lt documented in this encounter Visit Diagnoses Diagnosis ILD (interstitial lung disease) (CMS/HCC) (HCC) Postinflammatory pulmonary fibrosis documented in this encounter Care Teams Ethnology Professor Relationship Specialty Start Date End Date Modesto Reyez DO PCP - General Internal Medicine 01/03/20 01/13/23 documented as of this encounter
--- OUTSIDE RECORDS SUMMARY | 2024-11-15 05:58 | XMS_ITS | Encounter Summary ---
Author Organization [facility] Address [address] [place] [address] Phone Care Team Providers Care Receptionist Name Role Phone Modesto Reyez DO Primary Care Provider [phone] Encounter Details Date Type Department Care Team (Late st Contact Info) Description 05/27/2022 Telephone [facility] [address] [facility] 8th [place] [address] [place] [address] Carlo Faye MD [address] [place] [address] Social History Tobacco Use Types Packs/Day Years Used Date Smoking Tobacco: Never Smokeless Tobacco: Never Alcohol Use Standard Drinks/Week Comments Not Currently 0 (1 standard drink = 0.6 oz pur e alcohol) Comments Unknown Sex and Gender Information Value Date Recorded Sex Assigned at Not on file Legal Sex Female 1:14 AM COLLAR STITCHER Gender Identity Female 05/04/2020 3:33 PM CDT Sexual Orientation Not on file 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 Daughter is concerned that patient is not receiving adequate care at the rehab facility hence she is requesting admission to [facility]. Daughter complains that patient's legs are still swollen and patient is unable to get around much. No worsening of baseline symptoms like cough, dyspnea/SOB. Plan -Advised daughter that if she is concerned that patient is not doing too well, then she should takeher to the ED. The ED physician will evaluate patient and decide on the need for admission. Daughter says she will discuss with her siblings and decide on the next course of action. She expressed concern that she would not want to bring patient to the ED where she will be deemed medically stable and not admitted. -Will update Dr. Correa. Advised patient that the earliest she may hear back from Dr. Correa's team on Saturday. But again, if she has concerns for patient's health, she should please take patient to the ED for evaluation. Carlo Faye PGY-4 Pulmonary and Critical Care Medicine documented in this encounter Plan of Treatment Not on file documented as of this encounter Visit Diagnoses Not on filedocumented in this encounter Care Teams Receptionist Relationship Specialty Start Date End Date Modesto Reyez DO PCP - General Internal Medicine 01/03/20 01/13/23 documented as of this encounter
--- OUTSIDE RECORDS SUMMARY | 2024-11-15 05:58 | XMS_ITS | Encounter Summary ---
Author Organization [facility] Address [address] [place] [address] Care Team Providers Care Government Program Manager Name Role Phone Modesto Reyez DO Primary Care Provider [phone] Reason for Visit * Reason Comments Follow-up 6 mo f/u on heart fa verena pappas Encounter Details Date Type Department Care Team (Late st Contact Info) Description 11/02/2021 8:30 AM AGENCY DEVELOPMENT MANAGER Office Visit [facility] Cardiology [address] [place] [address] Myles Reyes MD [address] [facility] [place] [address] Chronic heart failure with preserved ejection fraction (CMS/HCC) (HCC) (Primary Dx); Paroxysmal atrial fibrillation (CMS/HCC) (HCC); Chronic anticoagulation; STARR on CPAP; H/O influenza; Rheumatoid arthritis, involving unspecified site, unspecified whether rheumatoid factor present (HCC); Lipid screening Social History Tobacco Use Types Packs/Day Years Used Date Smoking Tobacco: Never Smokeless Tobacco: Never Alcohol Use Standard Drinks/Week Comments Not Currently 0 (1 standard drink = 0.6 oz pur e alcohol) Comments Unknown Sex and Gender Information Value Date Recorded Sex Assigned at Not on file Legal Sex Female 1:14 AM AGENCY DEVELOPMENT MANAGER Gender Identity Female 05/04/2020 3:33 PM CDT Sexual Orientation Not on file documented as of this encounter Last Filed Vital Signs Vital Sign Reading Time Taken Comments Blood Pressure 120/76 11/02/2021 8:32 AM AGENCY DEVELOPMENT MANAGER Pulse 50 11/02/2021 8:32 AM AGENCY DEVELOPMENT MANAGER Temperature - - Respiratory Rate - - Oxygen Saturation 97% 11/02/2021 8:32 AM AGENCY DEVELOPMENT MANAGER Inhaled Oxygen Concentration - - Weight 111.6 kg (246 lb) 11/02/2021 8:32 AM AGENCY DEVELOPMENT MANAGER Height 157.5 cm (5' 2 ) 11/02/2021 8:32 AM AGENCY DEVELOPMENT MANAGER Body Mass Index 44.99 11/02/2021 8:32 AM AGENCY DEVELOPMENT MANAGER documented in this encounter Progress Notes * Myles Reyes MD - 11/02/2021 8:30 AM CST [facility] DATE OF VISIT: 11/02/2021 CHIEF COMPLAINT Chief Complaint Patient presents with ??? Follow-up 6 mo f/u on heart failure, a-fib ASSESSMENT Diagnoses and all orders for this visit: Chronic heart failure with preserved ejection fraction (CMS/HCC) (HCC) (Primary) Paroxysmal atrial fibrillation (CMS/HCC) (HCC) Chronic anticoagulation STARR on CPAP H/O influenza Rheumatoid arthritis, involving unspecified site, unspecified whether rheumatoid factor present (HCC) Lipid screening - POCT lipid panel PLAN/RECOMMENDATIONS 1. AFib paroxysmal, SR on exam today, heart rate controlled. Stable, A. Fib controlled. Continue current medical therapy and systemic anticoagulation for stroke risk reduction. CHADS2 Vasc score 3. -Continue Eliquis 5 mg b.i.d.. Monitor for bleeding. If falls, head injury or bleeding go to ER immediately. Monitor renal function at least on yearly basis. -continue Toprol XL 125 mg daily. Monitor bradycardia, dizziness, symptomatic hypotension. Ambulatewith caution. 2. BP controlled goal <140/90mmHg. Monitor [...] 24 hrs or worsening edema and/or FALCON. -continue current diuretic regimen. Patient doing well with dietary changes in sodium restriction. -Lasix 40mg daily -patient complained of worsening fatigue, dyspnea secondary to recent influenza, RA as there is no evidence of decompensated heart failure is primary explanation at this time. 4. Compliance with medications, recommendations follow-up once again extensively reviewed with patient and her daughter. They both verbalized understanding and agreed. Counseled extensively on importance with continue activity, dietary, sodium and fluid restriction as counseled. 5. Follow-up with pulmonology and Rheumatology as scheduled. Compliance with CPAP. She will continue on hydroxychloroquine, methotrexate and prednisone as directed 6. Lipids personally reviewed 11/02/21 LDL 48, well controlled goal LDL less than 100. Continue statin therapy and lifestyle modification. Pravastatin 80mg qhs. 7. Lifestyle modification counseling performed. Weight loss, exercise, reduction in caloric intake. Personally reviewed [facility] records from September 2021 admission for influenza Over 50% of this visit counseling CHF, HTN, lipids, medications, lifestyle modification. Follow up in the office in 4 months or sooner as needed. Thank you for allowing me the privilege of participating in the care this very pleasant patient. Please do not hesitate to contact me with any additional questions or concerns. HPI Ayanna Cash is a 71 y.o. female with a PMHx of rheumatoid arthritis, hypertension, hyperlipidemia, morbid obesity, STARR, diastolic heart failure, atrial fibrillation, and interstitial lung disease. She was on amiodarone and digoxin in the past , she had also had a successful cardioversion in the past. [facility] in September 2019 showed EF 60%. She was previously followed by Dr. Parker. Her childhood teacher is Dr. oNrman. Her telescope maintenance is Dr. Kobe Gerard. She presented to [facility] on 01/01/2020 with complaint of worsening [...] CPAP machine nightly, but sometimes remove sit retirement through the night. PCP follows her INRs [...] trying to lose some weight, following a [id number] Na restriction. Now using a foot pedal [...] 09/29/21 CAT visit-On 09/21/21 she went to [facility] ER for complaint of worsening shortnessof [...] Norman has referred her to pulmonology at [facility] and that appointment is next month. 12-lead ECG performed in the office today was independently interpreted by me and showed sinus rhythm, normal axis and normal intervals, rate 88 beats per minute 11/02/21 Says not feeling any better at all after admission to [place] with influenza B hurts to doeverything takes a lot out of her, no energy or appetite, SOB same as before. Attributes a lot to being off her pain meds including Hydroxychloroquine and Methotrexate for a while while in hospital. On CPAP. Not much edema though. Pain is mostly in shoulders and hands. Uses heating pad and Tylenol.Saw PCP recently. Sees [facility] at [place] tomorrow. Using 2L O2 at rest 4L O2 with activity. She notes her O2 drops to 85% on 4L still. Rheum adjusting meds on prednisone for 1 week without noted improvement thus far. Has PT coming into home. MEDICAL HISTORY Past Medical History: Diagnosis Date ??? Arthritis ??? Atrial fibrillation (CMS/HCC) (HCC) ??? Cataracts, bilateral ??? CHF (congestive heart failure) (CMS/HCC) (HCC) ??? Diastolic dysfunction ??? Diverticulitis ??? H/O section ??? Heart disease ??? Heart failure (HCC) ??? Hypertension ??? Obesity ??? Sleep apnea ??? Thyroid disease ??? Wears dentures Social History Tobacco Use ??? Smoking status: Never Smoker ??? Smokeless tobacco: Never Used Substance Use Topics ??? Alcohol use: Not Currently Alcohol/week: 0.0 standard drinks ??? Drug use: Never Family History Problem Relation Age of Onset ??? Hypertension Mother ??? Blood Clot Father ??? Clotting disorder Father ??? No Known Problems Sister ??? No Known Problems Sister MEDICATIONS HOME MEDICATIONS : calcium carbonate-vit D3-min 600 mg calcium- 400 unit tablet cholecalciferol (Vitamin D3) 2000 unit tablet cholestyramine (QUESTRAN) 4 gram packet cyanocobalamin 2,[address] (CYMBALTA) 20 mg capsule Eliquis 5 mg tablet folic acid (FOLVITE) 1 mg tablet furosemide (LASIX) 40 mg tablet hydroxychloroquine (PLAQUENIL) 200 mg tablet levothyroxine (SYNTHROID) 112 mcg tablet methotrexate 2.5 mg tablet metoprolol XL (TOPROL-XL) 100 mg 24 hr tablet metoprolol XL (TOPROL-XL) 25 mg extended release tablet potassium chloride ER (potassium chloride ER) 10 mEq CR tablet pravastatin (PRAVACHOL) 80 mg tablet predniSONE (DELTASONE) 10 mg tablet ALLERGIES No Known Allergies REVIEW OF SYSTEMS Review of Systems Constitutional: Positive for malaise/fatigue and weight loss. Negative for decreased appetite, diaphoresis, fever and night sweats. HENT: Negative for hearing loss and nosebleeds. [...] not nervous/anxious. Allergic/Immunologic: Negative for environmental allergies. PHYSICAL EXAM Vitals BP 120/76 (BP Location: Right arm, Patient Position: Sitting) Pulse 50 Ht 157.5 cm (5' 2 ) Wt 111.6 kg (246 lb) SpO2 97% BMI 44.99 kg/m?? Weight: 111.6 kg (246 lb) Height: 157.5 cm (5' 2 ) Body mass index is 44.99 kg/m??. Physical Exam Vitals reviewed. Constitutional: General: She is not in acute distress. Appearance: She is well-developed. She is not diaphoretic. Comments: O2 via [...] leg: Edema present. Comments: trace+ edema bilateral In wheelchair Lymphadenopathy: Cervical: No cervical adenopathy. [...] orders placed or performed in visit on 11/02/21 POCT lipid panel Result Value Ref Range Cholesterol, POC 136 mg/dL HDL, POC 75 mg/dL Triglycerides, POC 68 mg/dL LDL, Direct, POC 48 mg/dL Chol/HDL Ratio, POC 1.8 Non-HDL Cholesterol, POC 61 mg/dL Cholesterol Total, POC 136 mg/dL 09/29/2021 2D echocardiogram: [facility] EF 55-60% mild LVH, mild LVE, trivial MR, normal pulmonary pressures 10/04/2021 48 hour Holter monitor: Interpretation Summary AMBULATORY ORACLE DISTRIBUTION CONSULTANT REPORT ?? Patient Name: Ayanna Cash Date of : 1950 Requesting Physician: Dr. Reyes Date of interpretation: 10/04/21 ?? Type of monitor : 48 hour Holter [...] sinus rhythm, atrial run and sinus tachycardia. ?? Conclusions: 1. Predominant underlying rhythm is sinus rhythm, average heart rate 70 beats per minute. 2. Occasional supraventricular ectopy was seen in the form of PACs, atrial runs with a burden of 0.1% for the duration of the study; occasional ventricular ectopy in the form of PVCs, couplets, trigeminy with a burden of 1.07%. 3. No other significant arrhythmias or heart blocks were noted. 4. Patient's reported shortness of breath correlated with sinus rhythm, sinus tachycardia, atrial run. 5. Clinical correlation is recommended. Personally reviewed EKG, electronic medical record, [facility] records, and bloodwork/lipids. Geetha Reyes MD, [facility] This note is dictated and transcribed using Flurry Direct Software. Cartography Teacher variancesmay occur. Despite proofreading, typographical errors may occur. CY DEVELOPMENT MANAGER documented in this encounter Plan of Treatment Not on file documented as of this encounter Procedures Procedure Name Priority Date/Time Associated Diagnosis Comments POCT LIPID PANEL Routine 11/02/2021 9:21 AM AGENCY DEVELOPMENT MANAGER Lipid screening documented in this encounter Results * POCT lipid panel (11/02/2021 9:21 AM AGENCY DEVELOPMENT MANAGER) Cholesterol, POC 136 mg/dL HDL, POC 75 mg/dL Triglycerides, POC 68 mg/dL LDL Cholesterol POC 48 mg/dL Chol/HDL Ratio, POC 1.8 Non-HDL Cholesterol, POC 61 mg/dL Cholesterol Total, POC 136 mg/dL Capillary blood 11/02/2021 9 :21 AM AGENCY DEVELOPMENT MANAGER Myles Reyes MD POINT OF CARE TEST ORDER KHOA Final Result documented in this encounter Visit Diagnoses Diagnosis Chronic heart failure with preserved ejection fraction (CMS/HCC) (HCC)- Primary Paroxysmal atrial fibrillation (CMS/HCC) (HCC) Atrial fibrillation Chronic anticoagulation Encounter for long-term (current) use of anticoagulants STARR on CPAP H/O influenza Rheumatoid arthritis, involving unspecified site, unspecified whether rheumatoid factor present (HCC) Lipid screening Screening for lipoid disorders documented in this encounter Historical Medications * This list may reflect changes made after this encounter. DULoxetine DR (CYMBALTA) 20 mg capsule Take 1 capsule (20 mg total) by mouth daily 10/24/2021 predniSONE (DELTASONE) 10 mg tablet Take 10 mg by mouth every morning 10/24/2021 03/20/2022 added in this encounter Care Teams Government Program Manager Relationship Specialty Start Date End Date Modesto Reyez DO PCP - General Internal Medicine 01/03/20 01/13/23 documented as of this encounter
--- OUTSIDE RECORDS SUMMARY | 2024-11-15 05:58 | XMS_ITS | Encounter Summary ---
Author Organization [facility] Address [address] [place] [address] Care Team Providers Care Pricing/Signage Team Member Name Role Phone Modesto Reyez DO Primary Care Provider [phone] Encounter Details Date Type Department Care Team (Latest Contact Info) Description 03/16/2022 9:04 AM CDT Hospital Encounter [facility] [address] [place] [phone] Discharge Disposition: Discharge to home or self care Social History Tobacco Use Types Packs/Day Years Used Date Smoking Tobacco: Never Smokeless Tobacco: Never Alcohol Use Standard Drinks/Week Comments Not Currently 0 (1 standard drink = 0.6 oz pur e alcohol) Comments Unknown Sex and Gender Information Value Date Recorded Sex Assigned at Not on file Legal Sex Female 1:14 AM PASTER SUPERVISOR Gender Identity Female 05/04/2020 3:33 PM CDT Sexual Orientation Not on file 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 ??There will be no report generated by a [facility] Radiologist. Narrative [facility] - 03/16/2022 9:04 AM CDT EXAMINATION: ??Images For Reference Purposes Only us Renetta Goodson MD IMG XR PROCEDURES Final R esult [facility] documented in this encounter Visit Diagnoses Not on filedocumented in this encounter Care Teams Pricing/Signage Team Member Relationship Specialty Start Date End Date Modesto Reyez DO PCP - General Internal Medicine 01/03/20 01/13/23 documented as of this encounter
--- OUTSIDE RECORDS SUMMARY | 2024-11-15 05:58 | XMS_ITS | Encounter Summary ---
Author Organization [facility] Address [address] [place] [address] Care Team Providers Care Laser Engraver Name Role Phone Modesto Reyez DO Primary Care Provider [phone] Encounter Details Date Type Department Care Team (Latest Contact Info) Description 03/16/2022 9:04 AM CDT Hospital Encounter [facility] [address] [place] [phone] Discharge Disposition: Discharge to home or self care Social History Tobacco Use Types Packs/Day Years Used Date Smoking Tobacco: Never Smokeless Tobacco: Never Alcohol Use Standard Drinks/Week Comments Not Currently 0 (1 standard drink = 0.6 oz pur e alcohol) Comments Unknown Sex and Gender Information Value Date Recorded Sex Assigned at Not on file Legal Sex Female 1:14 AM PUBLIC RELATIONS CONSULTANT Gender Identity Female 05/04/2020 3:33 PM CDT Sexual Orientation Not on file 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 Narrative [facility] - 03/16/2022 9:04 AM CDT EXAMINATION: ??Images For Reference Purposes Only us Renetta Goodson MD IMG XR PROCEDURES Final R esult [facility] documented in this encounter Visit Diagnoses Not on filedocumented in this encounter Care Teams Laser Engraver Relationship Specialty Start Date End Date Modesto Reyez DO PCP - General Internal Medicine 01/03/20 01/13/23 documented as of this encounter
--- OUTSIDE RECORDS SUMMARY | 2024-11-15 05:58 | XMS_ITS | Encounter Summary ---
Author Organization [facility] Address [address] [place] [address] Phone Care Team Providers Care Work Station Support Specialist Name Role Phone Modesto Reyez DO Primary Care Provider [phone] Reason for Visit * Reason Onset Date Comments Multidisciplinary Discussion 11/09/2021 Encounter Details Date Type Department Care Team (Latest Contact Info) Description 11/09/2021 Documentation [facility] Pulmonary [address] [place] [address] [place] [address] Denita Correa MD [address] [facility] [address] [place] [address] Multidisciplinary Discussion Social History Tobacco Use Types Packs/Day Years Used Date Smoking Tobacco: Never Smokeless Tobacco: Never Alcohol Use Standard Drinks/Week Comments Not Currently 0 (1 standard drink = 0.6 oz pur e alcohol) Comments Unknown Sex and Gender Information Value Date Recorded Sex Assigned at Not on file Legal Sex Female 1:14 AM RUBBER ATTACHER Gender Identity Female 05/04/2020 3:33 PM CDT Sexual Orientation Not on file documented as of this encounter Progress Notes * Denita Correa MD - 11/09/2021 9:35 AM CST See clinic note for ILDC review. Attempted to call Dr. Gerard at number provided by patient - [phone]. Recorded message obtained, but unable to leave voice mail. Will try again later. ER ATTACHER documented in this encounter Plan of Treatment Not on file documented as of this encounter Visit Diagnoses Not on filedocumented in this encounter Care Teams Work Station Support Specialist Relationship Specialty Start Date End Date Modesto Reyez DO PCP - General Internal Medicine 01/03/20 01/13/23 documented as of this encounter
--- OUTSIDE RECORDS SUMMARY | 2024-11-15 05:58 | XMS_ITS | Encounter Summary ---
Author Organization [facility] Address [address] [place] [address] Care Team Providers Care Reconstructive Dentist Name Role Phone Modesto Reyez Primary Care Provider [phone] Reason for Referral * MRI/CAT/PET Scan (Routine) - Closed Specialty Diagnoses / Procedures Referred By Contac t Referred To Contact Radiology Diagnoses ILD (interstitial lung disease) (CMS/HCC) (HCC) Procedures CT Chest High Resolution WO Contrast Denita Correa MD [address] [address] Phone: tel: fax: [address] [address] Referral ID Status Reason Start Date Expiration Date Visits Re quested Visits Authorized [id number] Closed 11/03/2021 12/03/2022 1 1 PRODUCTION WORKER Reason for Visit * MRI/CAT/PET Scan (Routine) - Closed Specialty Diagnoses / Procedures Referred By Contac t Referred To Contact Radiology Diagnoses ILD (interstitial lung disease) (CMS/HCC) (HCC) Procedures CT Chest High Resolution WO Contrast Denita Correa MD [address] [address] Phone: tel: fax: [address] [address] Referral ID Status Reason Start Date Expiration Date Visits Re quested Visits Authorized [id number] Closed 11/03/2021 12/03/2022 1 1 Encounter Details Date Type Department Care Team (Latest Contact Info) Description 11/07/2021 4:50 PM SLAG PRODUCTION WORKER - 11/07/2021 11:59 PM SLAG PRODUCTION WORKER Hospital Encounter [facility]iology [facility] [address] [place] [address] Denita Correa MD [address] [facility] [address] [place] [address] ILD (interstitial lung disease) ([facility]/HCC) ([facility]) Discharge Disposition: Discharge [...] on file Legal Sex Female 1:14 AM SLAG PRODUCTION WORKER Gender Identity Female 05/04/2020 3:33 PM [...] tablet TAKE 1 TABLET(100 MG) BY MOUTH SKIDDER BEFORE BREAKFAST 90 tablet 3 05/18/2021 2 [...] CONTRAST Schedule Routine, Read Routine (OP Routine) 11/07/2021 5:26 PM SLAG PRODUCTION WORKER ILD (interstitial lung disease) (CMS/HCC) (HCC) documented in this encounter Results * CT Chest High Resolution WO Contrast (11/07/2021 5:26 PM SLAG PRODUCTION WORKER) Anatomical Region Laterality Modality Chest N/A Computed Tomogra phy 11/07/2021 8:43 PM SLAG PRODUCTION WORKER Impressions 11/07/2021 8:43 PM SLAG PRODUCTION WORKER Findings in keeping with a collagen vascular disease interstitial lung disease with a predominantly nonspecific interstitial pneumonia type pattern. No significant change is seen in severity when the portions of the lung bases are compared to the prior study of 01/14/2020. Electronically signed by: Blair Howard M.D. Narrative 11/07/2021 8:43 PM SLAG PRODUCTION WORKER EXAMINATION: CT CHEST WITHOUT INTRAVENOUS CONTRAST (HIGH RESOLUTION CHEST CT) TECHNIQUE: Standard high-resolution chest CT was performed both in inspiration and exhalation. Images were reconstructed using thin section 1 mm and more standard 3 mm sections. HISTORY: Follow-up interstitial lung disease FINDINGS: Comparison is made to the lung bases from a prior abdominal pelvic CT of 01/02/2020. No supraclavicular, axillary or mediastinal lymphadenopathy is seen. The main pulmonary artery is mildly enlarged measuring about 3.5 cm orthogonal to the long axis. Heart size is mildly enlarged. No pleural or pericardial effusion. Patient is post cholecystectomy. Right renal cyst is seen but no hydronephrosis. Mild left renal atrophy is seen and note is made of diffuse diverticulosis of the colon but no diverticulitis. The lung windows show areas of reticulation and groundglass with some honeycombing. Findings have no vertical predilection but some of the honeycombing is greater in the upper lobes. In addition, there is minimal air trapping. No significant change is seen when compared to the prior study of 01/02/2020. Consultation of findings is in keeping with collagen vascular disease interstitial lung disease. Bone windows do not demonstrate any osseous lesion. Procedure Note Blair Howard MD - 11/07/2021 EXAMINATION: CT CHEST WITHOUT INTRAVENOUS CONTRAST (HIGH RESOLUTION CHEST CT) TECHNIQUE: Standard high-resolution chest CT was performed both in inspiration and exhalation. Images were reconstructed using thin section 1 mm and more standard 3 mm sections. HISTORY: Follow-up interstitial lung disease FINDINGS: Comparison is made to the lung bases from a prior abdominal pelvic CT of 01/02/2020. No supraclavicular, axillary or mediastinal lymphadenopathy is seen. The main pulmonary artery is mildly enlarged measuring about 3.5 cm orthogonal to the long axis. Heart size is mildly enlarged. No pleural or pericardial effusion. Patient is post cholecystectomy. Right renal cyst is seen but no hydronephrosis. Mild left renal atrophy is seen and note is made of diffuse diverticulosis of the colon but no diverticulitis. The lung windows show areas of reticulation and groundglass with some honeycombing. Findings have no vertical predilection but some of the honeycombing is greater in the upper lobes. In addition, there is minimal air trapping. No significant change is seen when compared to the prior study of 01/02/2020. Consultation of findings is in keeping with collagen vascular disease interstitial lung disease. Bone windows do not demonstrate any osseous lesion. IMPRESSION: Findings in keeping with a collagen vascular disease interstitial lung disease with a predominantly nonspecific interstitial pneumonia type pattern. No significant change is seen in severity when the portions of the lung bases are compared to the prior study of 01/14/2020. Electronically signed by: Blair Howard M.D. Denita Correa MD IMG CT PROCEDURES Final Resu lt documented in this encounter Visit Diagnoses Diagnosis ILD (interstitial lung disease) (CMS/HCC) (HCC) Postinflammatory pulmonary fibrosis documented in this encounter Care Teams Reconstructive Dentist Relationship Specialty Start Date End Date Modesto Reyez DO PCP - General Internal Medicine 01/03/20 01/13/23 documented as of this encounter
--- OUTSIDE RECORDS SUMMARY | 2024-11-15 05:58 | XMS_ITS | Encounter Summary ---
Author Organization [facility] Address [address] [place] [address] Phone Care Team Providers Care Search Marketing Coordinator Name Role Phone Modesto Reyez DO Primary Care Provider [phone] Encounter Details Date Type Department Care Team (Late st Contact Info) Description 04/02/2022 Documentation [facility] Rheumatology [address] [facility] [place] [address] [place] [id number] Sandra Bauman MD [address] [facility] [address] [place] [address] Social History Tobacco Use Types Packs/Day Years Used Date Smoking Tobacco: Never Smokeless Tobacco: Never Alcohol Use Standard Drinks/Week Comments Not Currently 0 (1 standard drink = 0.6 oz pur e alcohol) Comments Unknown Sex and Gender Information Value Date Recorded Sex Assigned at Not on file Legal Sex Female 1:14 AM WIRE CHARGER Gender Identity Female 05/04/2020 3:33 PM CDT Sexual Orientation Not on file 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
--- OUTSIDE RECORDS SUMMARY | 2024-11-15 05:58 | XMS_ITS | Encounter Summary ---
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) Social History Tobacco Use Types Packs/Day Years Used Date Smoking Tobacco: Never Smokeless Tobacco: Never Alcohol Use Standard Drinks/Week Comments Not Currently 0 (1 standard drink = 0.6 oz pur e alcohol) Comments Unknown Sex and Gender Information Value Date Recorded Sex Assigned at Not on file Legal Sex Female 1:14 AM MANAGER AREA Gender Identity Female 05/04/2020 3:33 PM CDT Sexual Orientation Not on file 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 Not on file Not on file documented as of this encounter Plan of Treatment Not on file documented as of this encounter Procedures Procedure Name Priority Date/Time Associated Diagnosis Comments LUPUS ANTICOAGULANT PANEL PLUS REFLEXES Routine 03/09/2022 9:20 AM CDT MYOMARKER PANEL 3 Routine 03/09/2022 9:2 0 AM CDT 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) HANNAH QUALITATIVE WITH REFLEX TO HANNAH QUANTITATIVE Routine 03/09/2022 9:20 AM CDT 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) T-SPOT.TB Routine 03/09/2022 9:20 AM CDT 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) TERESA ANTIBODY EVALUATION WITH REFLEX Routine 03/09/2022 9:20 AM CDT 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) BETA 2 GLYCOPROTEIN IGM AB Routine 03/09/2022 9:20 AM CDT 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) BETA 2 GLYCOPROTEIN IGG AB Routine 03/09/2022 9:20 AM CDT 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) CYCLIC CITRUL PEPTIDE ANTIBODY, IGG Routine 03/09/2022 9:20 AM CDT 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) ALDOLASE Routine 03/09/2022 9:20 AM CDT 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) HEPATITIS PANEL, ACUTE Routine 9:20 AM CDT 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) BETA 2 GLYCOPROTEIN IGA AB Routine 03/09/2022 9:20 AM CDT 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) CARDIOLIPIN ANTIBODY, IGG AND IGM Routine 03/09/2022 9:20 AM CDT 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) ERYTHROCYTE SEDIMENTATION RATE Routine 03/09/2022 9:20 AM CDT 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) RHEUMATOID FACTOR Routine 03/09/2022 9:2 0 AM CDT 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) CRP (ACUTE PHASE) Routine 03/09/2022 9:2 0 AM CDT 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 Current interpretive data was last revised on 2019. aPTT 26(L) 27 - 37 sec [facility] Comment: Interpretive Data Therapeutic heparin range: 60.0 - 94.0 seconds. Based on correlation with therapeutic heparin activity range of 0.3-0.7 Units/mL. Current interpretive data was last revised on 2021. DRVVT screen ratio 1.64(H) 0.00 - 1.20 Ratio [facility] DRVVT confirm ratio 1.97 Ratio [facility] DRVVT S/C Ratio 0.83 0.00 - 1.20 Ratio [facility] SCT Screen Ratio 0.67 0.00 - 1.16 Ratio [facility] Lupus anticoagulant, interp Negative [facility] Comment: Interpretive data ?? Lupus anticoagulants (LA) are acquired autoantibodies that interfere with invitro clotting in a phospholipid-dependent manner and are associated with an increased risk of thromboembolic events and complications. ?? Routine APTT and PT reagents are not sensitive to inhibition by LA, and should not be used as screening tests. ? The laboratory follows ISTH 2009 guidelines (Pengo, 2009) for LA testing and interpretation: Two sensitive methods performed in parallel improve sensitivity. One activates the intrinsic pathway (Silica-APTT) and one activates the common pathway (dilute Sunny's viper venom time - dRVVT). ?? Each method begins with a SCREEN step, and if neither is prolonged, no further testing is performed and the interpretation is: NO LA DETECTED. ?? If either screening test is prolonged, then additional steps are performed to provide specificity. A POSITIVE LA result occurs if either one or both tests produce a positive CONFIRM result. ?? An INDETERMINATE result means results cannot distinguish between coagulopathy and a weak LA. Consider retesting when PT/INR is less prolonged, if clinical indicated. ?? To support laboratory confirmation of antiphospholipid syndrome, persistence of a positive LA result should be verified by repeat testing at least 12 weeks later (Kristen, 2006). ?? Prior to LA testing, the laboratory screens patient plasma samples for evidence of heparin contamination, which is neutralized prior to LA testing, and the following interfering conditions which require canceling LA testing: INR >3.0, fibrinogen < 100 mg/dl, use of direct oral or IV anticoagulants other than heparin. ?? References: 1) Miguelo V, Stone A, Marietta JH, Orkatiel TL, Blank M, De Esther PG. Update of the guidelines for lupus anticoagulant detection. J Thromb Haemost. 2009; 7:3347-1511. 2. Kristen Magaña. et al. International consensus statement on an update of the classification criteria for definite antiphospholipid syndrome (APS). J Thromb Haemost. 2006; 4:295-306. Current interpretive data was last revised on 2018 Blood 03/09/2022 9:20 AM CDT 03/09/2022 10:10 AM CDT us Sandra Bauman MD LAB BLOOD ORDERABLES Final Resul t [facility] Department [place] [address] * HANNAH qualitative with reflex to HANNAH Quantitative (03/09/2022 9:20 AM CDT) HANNAH Positive 1:160 [facility] Comment: Interpretive Data Normal range for HANNAH Qualitative Antibody = Negative. 1. HANNAH is performed using indirect immunofluorescence against HEp-2 cells 2. HANNAH titers are performed on all positive qualitative results. 3. A significantly positive HANNAH result is defined as a positive nuclear fluorescence at a titer of 1:80 or greater. 4. 15% of normal people above age 65 have significantly positive HANNAH results. ??5% or less of normal people age 65 or under have significantly positive HANNAH results. Current interpretive data was last revised on 2020. HANNAH, quant 1:160 titer [facility] HANNAH, interp Homogeneous [facility] Blood 03/09/2022 9:20 AM CDT 03/09/2022 10:20 AM CDT Sandra Baumna MD LAB BLOOD ORDERABLES Final Resul t Performing Organization Address [facility] de Phone Number [facility] [place] [address] * CRP (acute phase) (03/09/2022 9:20 AM CDT) CRP 4.1 <=10.0 mg/L [facility] Blood 03/09/2022 9:20 AM CDT 03/09/2022 10:20 AM CDT Sandra Bauman MD LAB BLOOD ORDERABLES Final Resul t Performing Organization Address [facility] [place] [address] * (ABNORMAL) Cyclic citrul peptide antibody, IgG (03/09/2022 9:20 AM CDT) CCP Ab 21.8(H) <=2.9 units/mL [facility] Comment: Interpretive data Negative: <3 units/mL Positive: > or equal to 3 units/mL Current interpretive data was last revised on 2017. Blood 03/09/2022 9:20 AM CDT 03/09/2022 10:20 AM CDT Sandra Bauman MD LAB BLOOD ORDERABLES Final Resul t Performing Organization Address [facility] [place] [address] * TERESA Antibody Evaluation with Reflex (03/09/2022 9:20 AM CDT) TERESA ab Negative Negative [facility] Comment: Interpretive Data Positive Screens will be reflexed to specific testing for the following antigens: Loretta-1 Ab, STATEMENT REQUEST CLERK Ab, Scl-70 Ab, Barton Ab, SS-A/Ro Ab, and SS-B/La Ab. Further testing for dsDNA, Centromere, or Ribosomal P antibodies is suggested in patient with a positive screen and negative specific antibodies. Current interpretive data was last revised on 17. Blood 03/09/2022 9:20 AM CDT 03/09/2022 10:20 AM CDT Sandra Bauman MD LAB BLOOD ORDERABLES Final Resul t Performing Organization Address City/[facility] Co de Phone Number [facility] [address] * Erythrocyte sedimentation rate (03/09/2022 9:20 AM CDT) Erythrocyte sedimentation rate 19 1 - 30 mm/hr [facility] Blood 03/09/2022 9:20 AM CDT 03/09/2022 10:20 AM CDT Sandra Bauman MD LAB BLOOD ORDERABLES Final Resul t Performing Organization Address [facility] de Phone Number [facility] [address] * Hepatitis panel, acute (03/09/2022 9:20 AM CDT) Hep A IgM Nonreactive Nonreactive [facility] Comment: Interpretive Data: If Hep A IgM Ab is reported as Equivocal, a new sample should be drawn in two weeks for testing. Current interpretive data was last revised on 20. Hep B core IgM Nonreactive Nonreactive [facility] Comment: Interpretive Data If HepB Core IgM Ab is reported as Equivocal, a new sample should be drawn in two weeks for testing. Current interpretive data was last revised on 20. Hep C Ab Nonreactive Nonreactive [facility] Comment:Antibodies to HCV no t detected. Does NOT exclude the possibility of recent exposure to HCV. HepBsAg Nonreactive Nonreactive [facility] Blood 03/09/2022 9:20 AM CDT 03/09/2022 10:20 AM CDT Sandra Bauman MD LAB MICROBIOLOGY - GENERAL ORDER KHOA Final Result Performing Organization Address City/[facility] Co de Phone Number [facility] Department [place] [address] * (ABNORMAL) Rheumatoid factor (03/09/2022 9:20 AM CDT) Rheumatoid factor, quant 63.0(H) 0.1 - 15.0 IUnits/mL [facility] Blood 03/09/2022 9:20 AM CDT 03/09/2022 10:20 AM CDT Sandra Bauman MD LAB BLOOD ORDERABLES Final Resul t Performing Organization Address City/[facility] Co de Phone Number [facility] Department [place] [address] * Cardiolipin antibody, IgG and IgM (03/09/2022 9:20 AM CDT) Pathologist [facility] Cardiolipin, IgG 2.9 <=19.9 GPL U/mL [facility] Comment: Interpretive Data Negative: <20 GPL U/mL Positive: > or = 20 GPL U/mL Anticardiolipin antibodies are associated with certain clinical events including unexplained arterial and venous thromboemboli, and unexplained morbidity. However, detection of low levels of anticardiolipin antibodies occurs in both healthy individuals and patients with co-morbidities not associated with the antiphospholipid antibody (APA) syndrome including inflammatory and infectious conditions. In order to improve specificity, the International Congress on Antiphospholipid Antibodies recommends ACL antibodies of IgG or IgM isotype present in medium or high titer (e.g. > 40 GPL, or >the 99th percentile), on two or more occasions, at least 12 weeks apart, to support a diagnosis of antiphospholipid syndrome. The cutoff for this assay was developed from data based on the 99th percentile. In addition, the International Congress on Antiphospholipid Antibodies does not recommend testing for IgA ABDI. These results were obtained with the [employer] BioPlex 2200 System. Cardiolipin IgG values obtained with different manufacturers' assay methods may not be used interchangeably. Current interpretive data was last revised on 2017. Cardiolipin, IgM 6.5 <=19.9 MPL U/mL [facility] Comment: Interpretive Data Negative: <20 MPL U/mL Positive: > or = 20 MPL U/mL Anticardiolipin antibodies are associated with certain clinical events including unexplained arterial and venous thromboemboli, and unexplained morbidity. However, detection of low levels of anticardiolipin antibodies occurs in both healthy individuals and patients with co-morbidities not associated with the antiphospholipid antibody (APA) syndrome including inflammatory and infectious conditions. In order to improve specificity, the International Congress on Antiphospholipid Antibodies recommends ACL antibodies of IgG or IgM isotype present in medium or high titer (e.g. > 40 MPL, or >the 99th percentile), on two or more occasions, at least 12 weeks apart, to support a diagnosis of antiphospholipid syndrome. The cutoff for this assay was developed from data based on the 99th percentile. ?? In addition, the International Congress on Antiphospholipid Antibodies does not recommend testing for IgA ABDI. The ACL IgM test can produce false positive results due to cross- reactivity with Rheumatoid factor, dsDNA or certain infectious disease antibodies. ??These results were obtained with the [employer] BioPlex 2200 System. Cardiolipin IgM values obtained with different manufacturers' assay methods may not be used interchangeably. Current interpretive data was last revised on 2017. Blood 03/09/2022 9:20 AM CDT 03/09/2022 10:20 AM CDT us Sandra Bauman MD LAB BLOOD ORDERABLES Final Resul t [facility] Department [place] [address] * Beta 2 glycoprotein IgA Ab (03/09/2022 9:20 AM CDT) Beta-2 glycoprotein I, IgA 2.2 <=19.9 units/mL [facility] Comment: Interpretive Data Negative: <20 U/mL Positive: > or = 20 U/mL ? The International Congress on Antiphospholipid Antibodies does not recommend testing for IgA Beta-2 glycoprotein 1 (Beta-2 GP1) since this isotype rarely occurs in the absence of IgG or IgM [id number], and the association of an isolated IgA Beta-2 [id number] APA clinical signs and symptoms is weak. The following results were obtained with the LigerTail 2200 System. Beta-2 GP1IgA values obtained with different manufacturers' assay methods may not be used interchangeably. Current interpretive data was last revised on 2017. Blood 03/09/2022 9:20 AM CDT 03/09/2022 10:20 AM CDT us Sandra Bauman MD LAB BLOOD ORDERABLES Final Resul t [facility] Department [place] [address] * Beta 2 glycoprotein IgG Ab (03/09/2022 9:20 AM CDT) [facility] Beta-2 glycoprotein I, IgG 2.7 <=19.9 units/mL [facility] Comment: Interpretive Data Negative: <20 U/mL Positive: > or = 20 U/mL ? Beta-2 glycoprotein 1 (Beta-2 GP1) antibodies are a more specific marker of thrombotic risk. It is expected that some samples will be ACL positive and Beta- 2 [id number]. In order to improve specificity, the International Congress on Antiphospholipid Antibodies recommends Beta-2 GP1 antibodies of IgG or IgM isotype ??(> the 99th percentile), obtained twice, at least 12 weeks apart, to support a diagnosis of antiphospholipid syndrome. The cutoff for this assay was developed from data based on the 99th percentile. These results were obtained with the [employer] BioPlex 2200 System. Beta 2GP1 IgG values obtained with different manufacturers' assay methods may not be used interchangeably. Current interpretive data was last revised on 2017. Blood 03/09/2022 9:20 AM CDT 03/09/2022 10:20 AM CDT Sandra Bauman MD LAB BLOOD ORDERABLES Final Resul t Performing Organization Address [facility] Co de Phone Number [facility] Department [place] [address] * Beta 2 glycoprotein IgM Ab (03/09/2022 9:20 AM CDT) Beta-2 glycoprotein I, IgM 3.6 <=19.9 units/mL [facility] Comment: Interpretive Data Negative: <20 U/mL Positive: > or = 20 U/mL ? Beta- 2 glycoprotein 1 (Beta-2 GP1) antibodies are a more specific marker of thrombotic risk. It is expected that some samples will be ACL positive and Beta- 2 GP1 negative. In order to improve specificity, the International Congress on Antiphospholipid Antibodies recommends Beta-2 GP1 antibodies of IgG or IgM isotype ??(> the 99th percentile), obtained twice, at least 12 weeks apart, to support a diagnosis of antiphospholipid syndrome. The cutoff for this assay was developed from data based on the 99th percentile. The Beta-2 GP1 IgM test can produce false positive results due to cross-reactivity with Rheumatoid factor. ??These results were obtained with the LigerTail 2200 System. Beta-2 GP1 IgM values obtained with different manufacturers' assay methods may not be used interchangeably. Current interpretive data was last revised on 2017. Blood 03/09/2022 9:20 AM CDT 03/09/2022 10:20 AM CDT Sandra Bauman MD LAB BLOOD ORDERABLES Final Resul t Performing Organization Address City/[facility]/ZIP Co de Phone Number [facility] Department [place] [address] * Myomarker panel 3 (03/09/2022 9:20 AM CDT) Anti-Loretta-1 ab <20 <20 Units [facility] Anti PL-7 ab Negative Negative [facility] Comment: This test was developed and its performance characteristics determined by [facility]. It has not been cleared or approved by the Food and Drug Administration. Anti PL-12 ab Negative Negative [facility] Comment: This test was developed and its performance characteristics determined by [facility]. It has not been cleared or approved by the Food and Drug Administration. Anti EJ ab Negative Negative [facility] Comment: This test was developed and its performance characteristics determined by [facility]. It has not been cleared or approved by the Food and Drug Administration. Anti OJ ab Negative Negative [facility] Comment: This test was developed and its performance characteristics determined by [facility]. It has not been cleared or approved by the Food and Drug Administration. Anti SRP ab Negative Negative [facility] Comment: This test was developed and its performance characteristics determined by [facility]. It has not been cleared or approved by the Food and Drug Administration. Anti Mi-2 ab Negative Negative [facility] Comment: This test was developed and its performance characteristics determined by [facility]. It has not been cleared or approved by the Food and Drug Administration. Polymyositis PM-SCL ab <20 <20 Units [facility] Comment: This test was developed and its performance characteristics determined by [facility]. It has not been cleared or approved by the Food and Drug Administration. Fibrillarin U3 ab Negative Negative [facility] Comment: This test was developed and its performance characteristics determined by [facility]. It has not been cleared or approved by the Food and Drug Administration. ?Interpretation for Anti-Loretta-1, [id number], ?Anti-MDA-5, Anti-NXP-2, Anti-PM/Scl-100, ?Anti-SS-A 52 kD, Anti-U1 STATEMENT REQUEST CLERK: ?Negative: ?<20 ?Weak Positive: ? 20 - 39 ?Moderate Positive: ? 40 - 80 ?Strong Positive: ? >80 ?. Test Performed by: [facility] [address] [place] [address] Anti U2 SN STATEMENT REQUEST CLERK ab Negative Negative [facility] Comment: This test was developed and its performance characteristics determined by [facility]. It has not been cleared or approved by the Food and Drug Administration. Anti U1RNP ab <20 <20 Units [facility] Anti KU ab Negative Negative [facility] Comment: This test was developed and its performance characteristics determined by [facility]. It has not been cleared or approved by the Food and Drug Administration. P155/140 ab <20 <20 Units [facility] Comment: This test was developed and its performance characteristics determined by [facility]. It has not been cleared or approved by the Food and Drug Administration. MDA-5 P140 ab <20 <20 Units [facility] Comment: This test was developed and its performance characteristics determined by [facility]. It has not been cleared or approved by the Food and Drug Administration. NXP-2 P140 ab <20 <20 Units [facility] Comment: This test was developed and its performance characteristics determined by [facility]. It has not been cleared or approved by the Food and Drug Administration. SSA52 KD ab IgG <20 <20 Units [facility] Comment: This test was developed and its performance characteristics determined by [facility]. It has not been cleared or approved by the Food and Drug Administration. Blood 03/09/2022 9:20 AM CDT 03/09/2022 10:39 AM CDT us Sandra Bauman MD LAB BLOOD ORDERABLES Final Resul t [facility] [place] [address] * (ABNORMAL) Aldolase (03/09/2022 9:20 AM CDT) Aldolase 9.5(H) 0.1 - 8.0 Units/L [facility] Blood 03/09/2022 9:20 AM CDT 03/09/2022 10:20 AM CDT Sandra Bauman MD LAB BLOOD ORDERABLES Final Resul t [facility] Department [place] [address] * T-SPOT.TB (03/09/2022 9:20 AM CDT) [facility] T-SPOT.TB Negative SeeBelow [facility] Comment: Normal Value: Negative A [...] test. T-SPOT.TB Panel A Spot Count 0 [facility] T-SPOT.TB Panel B Spot Count 0 [facility] T-SPOT.TB Negative Control Passed [facility] T-SPOT.TB Positive Control Passed [facility] Comment: Test Performed at: [facility], [employer] [address] [place], [place] ??[address] ? 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
--- OUTSIDE RECORDS SUMMARY | 2024-11-15 05:58 | XMS_ITS | Encounter Summary ---
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) Social History Tobacco Use Types Packs/Day Years Used Date Smoking Tobacco: Never Smokeless Tobacco: Never Alcohol Use Standard Drinks/Week Comments Not Currently 0 (1 standard drink = 0.6 oz pur e alcohol) Comments Unknown Sex and Gender Information Value Date Recorded Sex Assigned at Not on file Legal Sex Female 1:14 AM ABRASIVE GRADER Gender Identity Female 05/04/2020 3:33 PM CDT Sexual Orientation Not on file 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 file Not on file documented as of this encounter Plan of Treatment Not on file documented as of this encounter Procedures Procedure Name Priority Date/Time Associated Diagnosis Comments CBC WITH AUTO DIFFERENTIAL Routine 03/09/2022 9:20 AM CDT 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) CREATINE KINASE (CK), TOTAL Routine 03/09/2022 9:20 AM CDT 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) COMPREHENSIVE METABOLIC PANEL Routine 03/09/2022 9:20 AM CDT 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) documented in this encounter Results * (ABNORMAL) CBC with auto differential (03/09/2022 9:20 AM CDT) White Blood Count 16.0(H) 3.6 - 11.2 K/uL [facility] RBC 3.50(L) 3.63 - 4.92 M/uL [facility] Hemoglobin 10.7(L) 11.9 - 15.5 g/dL [facility] Hematocrit 33.9(L) 36.1 - 44.3 % [facility] MCV 96.8 80.0 - 97.6 fL [facility] MCH 30.7 26.7 - 33.7 pg [facility] MCHC 31.7(L) 32.7 - 35.5 g/dL [facility] RBC Dist Width 16.2 12.3 - 17.0 % [facility] Platelet Count 320 140 - 440 K/uL [facility] MPV 8.5 6.8 - 10.4 fL [facility] Neutrophils % 83.5(H) 38.7 - 74.5 % [facility] Lymphocyte % 7.5(L) 20.0 - 54.3 % [facility] Monocytes % 7.5 4.3 - 13.5 % [facility] Eosinophils % 0.8 0.0 - 6.0 % [facility] Basophil % 0.7 0.0 - 3.0 % [facility] Absolute Neutrophil 13.3(H) 1.8 - 6.6 K/uL [facility] Absolute Lymphocyte 1.2 0.8 - 3.3 K/uL [facility] Absolute Monocyte 1.2 0.2 - 1.2 K/uL [facility] Absolute Eosinophil 0.1 0.0 - 0.5 K/uL [facility] Absolute Basophil 0.1 0.0 - 0.2 K/uL [facility] Nucleated RBC % 0.0 0.0 - 0.4 /100 WBC [facility] Blood specimen (specimen) 03/09/2022 9:20 AM CDT 03/09/2022 11:59 AM CDT Narrative [facility] - 03/09/2022 12:57 PM CDT Repeated and Verified us Sandra Bauman MD LAB BLOOD ORDERABLES Final Resul t [facility] * (ABNORMAL) Comprehensive metabolic panel (03/09/2022 9:20 AM CDT) Total Protein 6.4 6.1 - 8.4 g/dL [facility] Albumin 4.0 3.5 - 5.2 g/dL [facility] Calcium 9.9 8.6 - 10.3 mg/dL [facility] BUN 44(H) 7 - 23 mg/dL [facility] Total Bilirubin 0.30 0.20 - 1.40 mg/dL [facility] Alk Phos, Total 70 35 - 129 IU/L [facility] AST (SGOT) 14 11 - 47 IU/L [facility] ALT (SGPT) 18 6 - 53 IU/L [facility] Creatinine 1.18(H) 0.60 - 1.10 mg/dL [facility] Sodium 139 135 - 145 mmol/L [facility] Potassium 4.7 3.3 - 5.1 mmol/L [facility] Chloride 105 95 - 107 mmol/L [facility] CO2 Content 20(L) 21 - 29 mmol/L [facility] Glucose 88 64 - 99 mg/dL [facility] Comment: NONFASTING GLUCOSE RANGE = 64-199 mg/dL FASTING GLUCOSE 64 - 99 = NORMAL FASTING GLUCOSE 100 - 125 = IMPAIRED FASTING GLUCOSE FASTING GLUCOSE >=126 = PROVISIONAL DIAGNOSIS OF DIABETES eGFR 48.8(L) >60.0 mL/min/1.7 3 m2 [facility] Comment:eGFR updated to new CKD-EPI (2020) calculation without race on 10/09/21. Blood specimen (specimen) 03/09/2022 9:20 AM CDT 03/09/2022 11:59 AM CDT Sandra Bauman MD LAB BLOOD ORDERABLES Final Resul t [facility] * Creatine kinase (CK), total (03/09/2022 9:20 AM CDT) CK, Total 35 26 - 308 IU/L [facility] Blood specimen (specimen) 03/09/2022 9:20 AM CDT 03/09/2022 11:59 AM CDT Sandra Bauman MD LAB BLOOD ORDERABLES Final Resul t Performing Organization Address [facility] Co de Phone Number [facility] documented in this encounter Visit Diagnoses Diagnosis 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
--- OUTSIDE RECORDS SUMMARY | 2024-11-15 05:58 | XMS_ITS | Encounter Summary ---
Author Organization [facility] Address [address] [facility] [address] [place] [address] Phone Care Team Providers Care Printing Press Machine Operator Name Role Phone Modesto Reyez DO Primary Care Provider [phone] Reason for Referral * MRI/CAT/PET Scan (Routine) - Closed Specialty Diagnoses / Procedures Referred By Contac t Referred To Contact Radiology Diagnoses ILD (interstitial lung disease) (CMS/HCC) (HCC) Procedures CT Chest High Resolution WO Contrast Denita Correa MD [address] [place] [address] Phone: tel: fax: [facility] [address] [place] [address] Referral ID Status Reason Start Date Expiration Date Visits Re quested Visits Authorized [id number] Closed 11/03/2021 12/03/2022 1 1 T LIABILITY ANALYST * (Routine) - Closed Specialty Diagnoses / Procedures Referred By Contac t Referred To Contact Diagnoses ILD (interstitial lung disease) (CMS/HCC) (HCC) Procedures Pulmonary Function Test -[facility] PFT [facility]- [facility]; Spirometry, Oxygen Assessment Titration Denita Correa MD [address] [place] [address] Phone: tel: fax: Referral ID Status Reason Start Date Expiration Date Visits Re quested Visits Authorized [id number] Closed 11/03/2021 12/03/2022 1 1 T LIABILITY ANALYST Reason for Visit * Consultation (Routine) - Closed Specialty Diagnoses / Procedures Referred By Contac t Referred To Contact Pulmonary Disease / Pulmonology Diagnoses ILD (interstitial lung disease) (CMS/HCC) ([facility]) Rashid Norman MD [address] [place] [address] Phone: tel: fax: Maynor Sky MD [address] [place] [address] Phone: tel: fax: Referral ID Status Reason Start Date Expiration Date V isits Requested Visits Authorized [id number] Closed Specialty Services Required 05/25/2021 06/24/2022 12 12 Encounter Details Date Type Department Care Team (Late st Contact Info) Description 11/03/2021 9:15 AM ASSET LIABILITY ANALYST Office Visit [facility] Pulmonary [address] [facility] 8th [place] [address] [place] [address] Denita Correa MD [address] [facility] [address] [place] [address] ILD (interstitial lung disease) (CMS/HCC) ([facility]) (Primary Dx); Rheumatoid arthritis, involving unspecified site, unspecified whether rheumatoid factor present ([facility]) Social History Tobacco Use Types Packs/Day Years Used Date Smoking Tobacco: Never Smokeless Tobacco: Never Alcohol Use Standard Drinks/Week Comments Not Currently 0 (1 standard drink = 0.6 oz pur e alcohol) Comments Unknown Sex and Gender Information Value Date Recorded Sex Assigned at Not on file Legal Sex Female 1:14 AM ASSET LIABILITY ANALYST Gender Identity Female 05/04/2020 3:33 PM CDT Sexual Orientation Not on file documented as of this encounter Last Filed Vital Signs Vital Sign Reading Time Taken Comments Blood Pressure 145/61 11/03/2021 8:36 AM ASSET LIABILITY ANALYST Pulse 54 11/03/2021 8:36 AM ASSET LIABILITY ANALYST Temperature 36.3 ??C (97.3 ??F) 11/03/2021 8:36 AM CS T Respiratory Rate 20 11/03/2021 8:36 AM ASSET LIABILITY ANALYST Oxygen Saturation 95% 11/03/2021 8:36 AM ASSET LIABILITY ANALYST 2 liters Inhaled Oxygen Concentration - - Weight 112.9 kg (249 lb) 11/03/2021 8:36 AM ASSET LIABILITY ANALYST Height 157.5 cm (5' 2 ) 11/03/2021 8:36 AM ASSET LIABILITY ANALYST Body Mass Index 45.54 11/03/2021 8:36 AM ASSET LIABILITY ANALYST documented in this encounter Progress Notes * Denita Correa MD - 11/03/2021 12:00 AM CST PATIENT NAME: AYANNA CASH : 1950 ANGELICA: 11/03/2021 CHIEF COMPLAINT: Dyspnea. HISTORY OF PRESENT ILLNESS: Ms. Cash is a 71-year-old woman who reports she developed significant dyspnea 2 to 3 years ago. She has now reached the point where she is dyspneic walking 20 to 25 feet. Three to four years ago she was unlimited in how far she could walk. She has a cough productive of green sputum first thing inthe morning, but that has only been going on for the last couple of months. She was originally diagn osed in November 2018 with rheumatoid arthritis. She reported joint swelling specifically in her MCPjoints, as well as hand stiffness. She sees Dr. Gerard in [place]. She was placed on hydroxychloroquine, and then in February 2021 started methotrexate at 12.5 mg a week. In early September this year she was hospitalized for what she describes as influenza B at [facility]. Since that hospitalization she has had a significant worsening of her dyspnea. Prior to that, she could walk approximately 25 feet without significant limitation, but now she feels very limited walking through her house. Her methotrexate was held for two doses while she had the influenza. Unfortunately, her joint symptoms worsened. She is now on 15 mg a week for 2 weeks and will be goingup to 17.5 mg next dosing. Her prednisone was also boosted to 10 mg a day. She reports prior prednisone boost in 2019 to 30 mg and then over the course of several months weaned down to 10 mg a day. Prior to having influenza she wore 2 L/minute oxygen just with walking. Now she uses 2 L/minute at rest and 4 L/minute with walking. PAST MEDICAL HISTORY: 1. Rheumatoid arthritis as per HPI. 2. Hypertension. 3. Congestive heart failure-unclear if this is diastolic or systolic. 4. History of obstructive sleep apnea on CPAP for a year. 5. History of bilateral knee replacements. 6. Prior history of urinary tract infections up to 5 times a year. She states she is treated with antibiotics but unsure if she has ever been treated with Macrodantin. 7. Prior thyroid surgery. ALLERGIES: NO KNOWN DRUG ALLERGIES. MEDICATIONS: 1. Calcium with vitamin D3. 2. Vitamin D3 1000 units a day. 3. Cholestyramine. 4. Vitamin B12 1000 mcg a day. 5. Duloxetine 20 mg a day. 6. Eliquis 5 mg b.i.d. 7. Folic acid. 8. Lasix 40 mg a day. 9. Hydroxychloroquine 200 mg b.i.d. 10. Levothyroxine. 11. Methotrexate 17.5 mg a week. 12. Metoprolol 100 mg a day. 13. Pravastatin 80 mg a day. 14. Prednisone 10 mg a day. FAMILY HISTORY: Positive for hypertension. SOCIAL HISTORY: She denies any tobacco use or E cigarette use. No secondhand exposures. No marijuana or other substance use. No alcohol use. She has 2 dogs and a cat. No pet birds. No down feather pillows, mold, or water issues in her home. REVIEW OF SYSTEMS: Her weight is stable. No fevers or chills. She does have the MCP arthralgias. No lower extremity edema. She uses an adjustable bed to prop up the head of her bed. No wheezing. No reflux or dysphagia.All other systems negative. PHYSICAL EXAMINATION: Vital Signs: Afebrile, blood pressure is 145/61, pulse 54, O2 saturations 95% on 2 L, height 5 feet2 inches, weight 249 pounds for a BMI of 45.5. General: Pleasant white woman in no acute distress. HEENT: Sclerae anicteric. Conjunctivae pink. No oropharyngeal lesions. No cervical lymphadenopathy.There is a well-healed anterior cervical scar. No lymphadenopathy. Lungs: Bilateral inspiratory crackles right greater than left, pretty much throughout the right lung. Cardiovascular: S1, S2. No murmurs, rubs, or gallops. Abdomen: Obese but nontender. Extremities: No clubbing, cyanosis, or edema. Skin: No rashes. Joints: Her right second and third MCP joint are swollen but no erythema. DATA: 1. Spirometry: FVC is 1.22, 47%. FEV1 1.11, 56%. FEV1/FVC 91%. There is no bronchodilator change. TLC is 2.63, 55%. RV is 1.29, 60%. DLCO corrected is 53%. 2. Room air ABG: PH 7.44, pCO2 41, PO2 81. 3. Oxygen assessment: Resting room air saturation 99%. She walked 85 feet with room air saturation trixie of 87%. She required 4 L/minute to maintain O2 saturation greater than 90%. Heart rate went from 52 to 98. Kaitlin dyspnea index 0 at rest, 2 with walking. Blood pressure remained stable, as did FEV1. 4. Chest x-ray from today shows bilateral diffuse interstitial opacities, appear both in the lower and upper lungs. 5. Review of chest CT from September 2021 demonstrates diffuse ground-glass with some areas of reticulation. This was done as a PE protocol. Abdominal CT available from December 2019 shows ground-glass in the lower lobes but upper lobes are not available for review. IMPRESSION: Ms. Cash is a 71-year-old woman with a history of underlying interstitial lung disease. Based offthe limited imaging we have it does not appear classic for UIP pattern suggestive of idiopathic pulmonary fibrosis. The imaging does not have expiratory imaging to determine air trapping. Considerations could include interstitial lung disease related to rheumatoid arthritis or possibly hypersensitivity pneumonitis. RECOMMENDATIONS: 1. We will try to obtain records from the music librarian to see what evaluation has previously beensent and how the diagnosis of rheumatoid arthritis was made. 2. We will try to obtain records from primary care doctor to see if she has been prescribed Macrodantin on a regular basis as that would potentially increase the risk for hypersensitivity pneumonitis. 3. We will obtain a high-resolution chest CT today to better evaluate her underlying interstitial lung disease. 4. We will follow-up with the patient after we review the CT scan and obtain the records to better determine what the next step would be. 5. We will plan a 4 month visit, but we will be in touch prior to that. ADDENDUM: Review of CT scan in ILD conference - in 12/2019 tehre was ground glass and mild reticulation. 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 Discussed with patient and daughter - will speak with Dr. Moustapha feliciano if there is different regimen that can be used to reat lung and joint symptoms. Attempted to call Dr. Gerard's office - unable to get through and unable to leave a message. Will try again later. ELECTRONICALLY SIGNED - 11/09/2021 09:35 AM Denita Correa M.D. sheriff detective TR/ll cc: MODESTO REYEZ DO [address] [place] [address] / [place] [address] [facility] [address] [place] [address] / T LIABILITY ANALYST documented in this encounter Plan of Treatment Not on file documented as of this encounter Results * Pulmonary Function Test - (03/16/2022 7:58 AM CDT) FVC PRE 1.26 L [facility] FVC %PRE PRED 49 % [facility] FEV1 PRE 1.10 L [facility] FEV1 %PRE PRED 55 % [facility] FEV1/FVC PRE 87.0 % [facility] Anatomical Region Laterality Modality PFT 03/16/2022 7:38 AM CDT Narrative 03/20/2022 5:11 PM CDT [facility] Division of Pulmonary & Critical Care Medicine [address] [place] [address]; [address]; [place], [place] ??[address]; [phone] Pulmonary Function Laboratory Pulmonary Stress Test Simple/Oxygen Assessment Patient: Ayanna Cash Date: No visit date found. : 1950 Ht: 62 IN Wt: 253 LBS Time (min) Distance (ft)/ Ozuna O2 L/M SpO2 HR Kaitlin* BP FEV1 % Pred Rest: ??2 94 77 0 121/76 1.10 55 % ??RA 95 82 0 ? Walk/Bike: 1 ??RA 90 149 3 ? 2 ??RA/2 86/91 141/121 5 ? Recovery: 1 ??2 94 98 2 158/79 / ?? 3 ??2 97 96 0 ??/ ?*Kaitlin rate of perceived exertion (1-10 dyspnea scale) ??Victor M, CHEST 2003; 123:1408 Walk Test Summary: Six Minute Walk Distance: 90 ft Six-minute Walk Work [distance (m) x body wt (kg)]: 3142 kg.m (normal >60,000kg.m) Oxygen required to maintain SpO2 greater than 90% during six minutes of walkin L/M Comments: WALKED WITH WALKER. WALK STOPPED DUE TO SOB. Interpretation: Breathing room air, SpO2 is adequate at rest and during exercise sufficient to increase pulse from 82 to 141 b/min, SpO2 is falls to hypoxemic levels. On this basis, SpO2 is adequate at rest breathing room air and while walking breathing supplemental O2 at 2 L/min. By signing this report, the attending pulmonary physician certifies that he/she has personally reviewed and interpreted the graphic and numerical data associated with this pulmonary function study and has reviewed and /or edited a preliminary draft report and agrees with the written final report. Noam Aguillon M.D. PFT performed at:->[facility] Adult PFT Lab- [facility] Procedure:->Spirometry Procedure:->Oxygen Assessment Titration us Denita Correa MD PFT ORDERABLES Final Result * CT Chest High Resolution WO Contrast (11/07/2021 5:26 PM ASSET LIABILITY ANALYST) Anatomical Region Laterality Modality Chest N/A Computed Tomogra phy 11/07/2021 8:43 PM ASSET LIABILITY ANALYST Impressions 11/07/2021 8:43 PM ASSET LIABILITY ANALYST Findings in keeping with a collagen vascular disease interstitial lung disease with a predominantly nonspecific interstitial pneumonia type pattern. No significant change is seen in severity when the portions of the lung bases are compared to the prior study of 01/14/2020. Electronically signed by: Blair Howard M.D. Narrative 11/07/2021 8:43 PM ASSET LIABILITY ANALYST EXAMINATION: CT CHEST WITHOUT INTRAVENOUS CONTRAST (HIGH [...] disease) (CMS/HCC) (HCC)- Primary Postinflammatory pulmonary fibrosis Rheumatoid arthritis, involving unspecified site, unspecified whether rheumatoid factor present (HCC) ILD (interstitial lung disease) (CMS/HCC) (HCC) Postinflammatory pulmonary fibrosis ILD (interstitial lung disease) (CMS/HCC) (HCC) Postinflammatory pulmonary fibrosis documented in this encounter Orders Outpatient Referral Count Last Ordered Date Fir st Ordered Date AMB REFERRAL TO PULMONOLOGY 1 11/03/2021 documented in this encounter Care Teams Printing Press Machine Operator Relationship Specialty Start Date End Date Modesto Reyez DO PCP - General Internal Medicine 01/03/20 01/13/23 documented as of this encounter
--- OUTSIDE RECORDS SUMMARY | 2024-11-15 05:58 | XMS_ITS | Encounter Summary ---
Author Organization [facility] Address [address] [facility] [address] [place] [address] Phone Care Team Providers Care Safety Sitter Name Role Phone Modesto Reyez DO Primary Care Provider [phone] Reason for Referral * (Routine) - Closed Specialty Diagnoses / Procedures Referred By Contac t Referred To Contact Diagnoses ILD (interstitial lung disease) (CMS/HCC) ([facility]) Procedures Pulmonary Function Test -[facility]FT [facility]- [facility]; Spirometry, Oxygen Assessment Titration Denita Correa MD [address] [address] Phone: tel: fax: Referral ID Status Reason Start Date Expiration Date Visits Re quested Visits Authorized [id number] Closed 11/03/2021 12/03/2022 1 1 Reason for Visit * (Routine) - Closed Specialty Diagnoses / Procedures Referred By Contac t Referred To Contact Diagnoses ILD (interstitial lung disease) ([facility]) ([facility]) Procedures Pulmonary Function Test -[facility]- [facility]; Spirometry, Oxygen Assessment Titration Denita Correa MD [address] [address] Phone: tel: fax: Referral ID Status Reason Start Date Expiration Date Visits Re quested Visits Authorized [id number] Closed 11/03/2021 12/03/2022 1 1 Encounter Details Date Type Department Care Team (Latest Contact Info) Description 03/16/2022 7:28 AM CDT - 03/16/2022 9:02 AM CDT Hospital Encounter [facility] Pulmonary [address] [facility] [address] [place] [id number] ILD (interstitial lung disease) ([facility]/HCC) ([facility]) Discharge Disposition: Discharge to home or self care Social History Tobacco Use Types Packs/Day Years Used Date Smoking Tobacco: Never Smokeless Tobacco: Never Alcohol Use Standard Drinks/Week Comments Not Currently 0 (1 standard drink = 0.6 oz pur e alcohol) Comments Unknown Sex and Gender Information Value Date Recorded Sex Assigned at Not on file Legal Sex Female 1:[address] Gender Identity Female 05/04/2020 3:33 PM CDT Sexual Orientation Not on file 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 [...] tablet TAKE 1 TABLET(100 MG) BY MOUTH MICA PATCHER BEFORE BREAKFAST 90 tablet 3 05/18/2021 2 [...] Diagnosis Comments PULMONARY FUNCTION TEST (PFT) Routine 03/16/2022 7:58 AM CDT ILD (interstitial lung disease) ([facility]) ([facility]) documented in this encounter Results * Pulmonary Function Test - (03/16/2022 7:58 AM CDT) FVC PRE 1.26 L [facility] FVC %PRE PRED 49 % [facility] FEV[facility] PRE 1.10 L [facility] FEV1 %PRE PRED 55 % [facility] FEV1/FVC PRE 87.0 % [facility] Anatomical Region Laterality Modality PFT 03/16/2022 7:38 AM CDT Narrative 03/20/2022 5:11 PM CDT [facility] Division of Pulmonary & Critical Care Medicine [address] [place] [address]; [address] [facility]; [place], [place] ??[address]; [phone] Pulmonary Function Laboratory Pulmonary Stress Test Simple/Oxygen [...] final report. Noam Aguillon M.D. PFT performed at:->[facility] Adult PFT Lab- [facility] Procedure:->Spirometry Procedure:->Oxygen Assessment Titration us Denita Correa MD PFT ORDERABLES Final Result documented in this encounter Visit Diagnoses Diagnosis ILD (interstitial lung disease) (CMS/HCC) (HCC) Postinflammatory pulmonary fibrosis documented in this encounter Care Teams Safety Sitter Relationship Specialty Start Date End Date Modesto Reyez DO PCP - General Internal Medicine 01/03/20 01/13/23 documented as of this encounter
--- OUTSIDE RECORDS SUMMARY | 2024-11-15 05:58 | XMS_ITS | Encounter Summary ---
Author Organization [facility] Address [address] [place] [address] Care Team Providers Care Park Interpretive Specialist Name Role Phone Modesto Reyez DO Primary Care Provider [phone] Encounter Details Date Type Department Care Team (Late st Contact Info) Description 12/30/2021 Orders Only [facility] Cardiology [address] [address] [place] [address] Efrain Rodriguez MD [address] [id number] Social History Tobacco Use Types Packs/Day Years Used Date Smoking Tobacco: Never Smokeless Tobacco: Never Alcohol Use Standard Drinks/Week Comments Not Currently 0 (1 standard drink = 0.6 oz pur e alcohol) Comments Unknown Sex and Gender Information Value Date Recorded Sex Assigned at Not on file Legal Sex Female 1:14 AM TEMPORARY HELP AGENCY REFERRAL CLERK Gender Identity Female 05/04/2020 3:33 PM CDT Sexual Orientation Not on file documented as of this encounter Plan of Treatment Not on file documented as of this encounter Procedures Procedure Name Priority Date/Time Associated Diagnosis Comments CARDIOLOGY DOCUMENT SCAN Routine 12/30/2021 documented in this encounter Results * SCAN - CARDIOLOGY (12/30/2021) Anatomical Region Laterality Modality Other Efrain Rodriguez MD CV CARDIAC SERVICES PROCEDURES F inal Result documented in this encounter Visit Diagnoses Not on filedocumented in this encounter Care Teams Park Interpretive Specialist Relationship Specialty Start Date End Date Modesto Reyez DO PCP - General Internal Medicine 01/03/20 01/13/23 documented as of this encounter
--- OUTSIDE RECORDS SUMMARY | 2024-11-15 05:58 | XMS_ITS | Encounter Summary ---
Author Organization [facility] Address [address] [facility] [address] [place] [address] Phone Care Team Providers Care Dough Puncher Name Role Phone Modesto Reyez DO Primary Care Provider [phone] Reason for Referral * (Routine) - Closed Specialty Diagnoses / Procedures Referred By Contac t Referred To Contact Diagnoses Rheumatoid lung (CMS/HCC) (HCC) Procedures Pulmonary Function Test -[facility] PFT [facility]- [facility]; Spirometry, Oxygen Assessment Titration Denita Correa MD [address] [place] [address] Phone: tel: fax: Referral ID Status Reason Start Date Expiration Date Visits Re quested Visits Authorized [id number] Closed 03/16/2022 04/15/2023 1 1 Encounter Details Date Type Department Care Team (Late st Contact Info) Description 03/16/2022 8:45 AM CDT Office Visit [facility] Pulmonary [address] [facility] Advanced Medicine 8th [place] [address] [place] [address] Denita Correa MD [address] [place] [address] Rheumatoid lung (CMS/HCC) (HCC) (Primary Dx); Hypervolemia, unspecified hypervolemia type Social History Tobacco Use Types Packs/Day Years Used Date Smoking Tobacco: Never Smokeless Tobacco: Never Alcohol Use Standard Drinks/Week Comments Not Currently 0 (1 standard drink = 0.6 oz pur e alcohol) Comments Unknown Sex and Gender Information Value Date Recorded Sex Assigned at Not on file Legal Sex Female 1:14 AM TIMBER FELLER Gender Identity Female 05/04/2020 3:33 PM CDT Sexual Orientation Not on file 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 on 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 Not on file Not on file documented as of this encounter Last Filed Vital Signs Vital Sign Reading Time Taken Comments Blood Pressure 130/80 03/16/2022 8:37 AM CDT Pulse 70 03/16/2022 8:37 AM CDT Temperature 36.2 ??C (97.1 ??F) 03/16/2022 8:37 AM CD T Respiratory Rate 18 03/16/2022 8:37 AM CDT Oxygen Saturation 97% 03/16/2022 8:37 AM CDT 2 liters Inhaled Oxygen Concentration - - Weight 114.8 kg (253 lb) 03/16/2022 8:37 AM CDT Height 157.5 cm (5' 2 ) 03/16/2022 8:37 AM CDT Body Mass Index 46.27 03/16/2022 8:37 AM CDT documented in this encounter Ordered Prescriptions Prescription Sig Dispense Quantity Refills Last Filled Start Date End Date furosemide (LASIX) 20 mg tablet Take 1 tab every other day with baseline dose of 40 mg a day 15 tablet 4 03/16/2022 2 documented in this encounter Progress Notes * Denita Correa MD - 03/16/2022 12:00 AM CDT PATIENT NAME: AYANNA CASH : 1950 ANGELICA: 03/16/2022 Problem List: 1. Rheumatoid arthritis, seropositive, previously on methotrexate, now on prednisone 15 mg p.o. daily and hydroxychloroquine. 2. Hypertension. 3. Congestive heart failure. 4. Obstructive sleep apnea on CPAP. 5. History of bilateral knee replacements. 6. History of frequent urinary tract infections. 7. History of influenza A infection in September 2021, requiring hospitalization. 8. History of recurrent DVT and PE, on lifelong anticoagulation with Eliquis Interval History: Ms. Cash presents for routine follow-up visit. Since she was last seen in our clinic in October 2021, she was hospitalized for approximately 7 days in December 2021 with congestive heart failure. She reports that her dry weight is around 240 pounds, and she will progressively gain about 30 pounds over a period of about 3 months. She was also hospitalized for congestive heart failure exacerbation in September 2021. She received diuresis and was discharged at her dry weight. She now presents toclinic and weighs 253 pounds and feels that she has accumulated quite a bit of fluid in her legs. She reports that she adheres to a 2 L fluid restriction and a 1200 to 1500 mg sodium restriction. Shetakes Lasix 40 mg daily and feels like this lasts into the night and makes her wake up frequently at night to urinate. She is hesitant to double up on her diuretic dose in the evening because she will wake up even more to urinate. She is using 2 L of oxygen at rest and 4 with exertion. She is sleeping with her CPAP without oxygen bleeding in. She reports that her arthritis is stable but still both ersome. It is mainly in her hands and shoulders and knees. She takes Tylenol throughout the day to help with the pain. She is ambulatory around the house, but requires a walker for this. She continues to be independent with showering, feeding and minor household tasks. She is taking prednisone 15 mg daily. Review of Systems: All systems reviewed and negative except in HPI. Physical Exam: Vital Signs: Blood pressure 130/80, pulse 70, respirations 18, temperature 36.2 Celsius, SpO2 of 97% on 2 L of pulse flow oxygen. Weight 114.8 kg, 253 pounds, BMI 46.27 kg/m??. General: Elderly appearing, accompanied by her daughter. No acute distress. A&O x4. HEENT: Normal conjunctivae. Normal OMM. Cardiac: Regular rate, irregular rhythm with frequent ectopy. Pulmonary: Crackles appreciated anteriorly and posteriorly. Squeaks appreciated in the right lower lung and no conversational dyspnea. Abdomen: Obese, soft, nontender, nondistended. Extremities: 2+ lower extremity pitting edema to the knees. No cyanosis or clubbing. Normal capillary refill. Data: 1. PFTs: Date FVC, % pred FEV1, % pred FEV1/FVC TLC, % pred DLCO % pred 02/2022 1.26, 49% 1.10, 55% 87% 10/2021 1.22, 47% 1.11, 56% 91% 2.63, 55% 45% 2. Six-minute walk test: She walked 90 feet and discontinued her walk test at 2 minutes. Her starting oxygen was room air trixie was 86% and her final oxygen was 2 Lpm. Her initial SpO2 was 95%, her final SpO2 was 91%. Heart rate was 82, final heart rate was 121. Initial Kaitlin was 0, final Kaitlin was 5. Initial blood pressure 121/76, final blood pressure 158/79. Initial FEV1 was 1.10, 55% predicted. 3. Imaging 12/29/2021, outside CT chest PE protocol [facility]: There is some motion artifact in her most recent CT scan, but otherwise there is similar peripheral reticulation, ground-glass changes, and architectural distortion as compared to a October 2021 CT chest [facility]. Assessment: Ms. Cash is a 71-year-old woman with history of seropositive rheumatoid arthritis with associatedinterstitial lung disease. Less likely considerations for interstitial lung disease would be hypersensitivity pneumonitis; it is also unclear if she was frequently prescribed Macrodantin for her UTIs, which would increase her risk for hypersensitivity pneumonitis. Currently, it appears that her frequent hospitalizations are primarily driven by her congestive heart failure. Recommendations: 1. After discussion with Ms. Cash, she is amenable to alternating 40 mg and 60 mg of furosemide in an effort to reduce her weight and prevent further hospitalization. She will call us in 7 to 10 days to follow up with us about her weight. She will continue to take 20 mEq of potassium daily. 2. With respect to therapy for her interstitial lung disease, we will discuss with her water main inspector Dr. Bauman and decide what the best course of therapy would be to eventually replace prednisone and address her joint and lung symptoms. 3. She will continue to use 4 L of oxygen with exertion and 2 at rest. She will continue to use nocturnal CPAP without oxygen. 4. We will plan to see her back in 3 to 4 months and will repeat O2 assessment and spirometry at that time. ELECTRONICALLY SIGNED - 03/17/2022 12:13 AM Eladio Maurice M.D. Fellow I have seen and examined the patient and agree with the findings and plan of care as documented by and/or discussed with Eladio Maurice M.D. I have edited the note. Review of CT scan in ILD conference - reticulation, ground glass opacities with no particular apical-basilar distribution. No honeycombing or air trapping - could be consistent with collagen vascular disease related ILD. Slightly worse than 2019, but stable compared to 10/2021. Spoke with Dr. Bauman who would like to start patient on abatacept. I think her ILD can be monitored on the abatcept. ELECTRONICALLY SIGNED - 03/21/2022 05:47 PM Denita Correa M.D. adding machine servicer AR/TR/dh cc: MODESTO REYEZ DO [address] [place] [address] / [place] [address] [address] / ETIENNE BAUMAN MD [address] [place] [address] documented in this encounter Plan of Treatment Not on file documented as of this encounter Results * Pulmonary Function Test - (06/15/2022 9:33 AM CDT) FVC PRE 1.40 L [facility] FVC %PRE PRED 55 % [facility] FEV1 PRE 1.21 L [facility] FEV1 %PRE PRED 62 % [facility] FEV1/FVC PRE 86.9 % [facility] Anatomical Region Laterality Modality PFT 06/15/2022 9:06 AM CDT Narrative 06/20/2022 3:26 PM CDT [facility] Division of Pulmonary & Critical Care Medicine [address] [place] [address]; [place] [address]; [place], [place] ??[address]; [phone] Pulmonary Function Laboratory Pulmonary Stress Test Simple/Oxygen [...] written final report. PFT performed at:->[facility] Adult PFT [facility]- [facility]-8D Procedure:->Spirometry Procedure:->Oxygen Assessment Titration Denita Correa MD PFT ORDERABLES Final Result documented in this encounter Visit Diagnoses Diagnosis Rheumatoid lung (CMS/HCC) (HCC)- Primary Rheumatoid lung Hypervolemia, unspecified hypervolemia type Rheumatoid lung (CMS/HCC) (HCC) Rheumatoid lung documented in this encounter Care Teams Dough Puncher Relationship Specialty Start Date End Date Modesto Reyez DO PCP - General Internal Medicine 01/03/20 01/13/23 documented as of this encounter
--- OUTSIDE RECORDS SUMMARY | 2024-11-15 05:58 | XMS_ITS | Encounter Summary ---
Author Organization [facility] Address [address] [place] [address] Phone Care Team Providers Care Chip Bin Conveyor Tender Name Role Phone Modesto Reyez DO Primary Care Provider [phone] Encounter Details Date Type Department Care Team (Late st Contact Info) Description 11/13/2021 Telephone [facility] Pulmonary [address] [facility] Advanced Medicine 8th [place] [address] [place] [address] Denita Correa MD [address] [place] [address] Social History Tobacco Use Types Packs/Day Years Used Date Smoking Tobacco: Never Smokeless Tobacco: Never Alcohol Use Standard Drinks/Week Comments Not Currently 0 (1 standard drink = 0.6 oz pur e alcohol) Comments Unknown Sex and Gender Information Value Date Recorded Sex Assigned at Not on file Legal Sex Female 1:14 AM BELLHOP CAPTAIN Gender Identity Female 05/04/2020 3:33 PM CDT Sexual Orientation Not on file documented as of this encounter Miscellaneous Notes * Telephone Encounter - Denita Correa MD - 11/13/2021 10:22 AM BELLHOP CAPTAIN Called Dr. Gerard's office last week - no answer, no voice mail. Tried again today twice. Left on hold for extended period both times. Unable to speak to anyone. Will fax note that I am trying to reach Dr. Gerard. HOP CAPTAIN documented in this encounter Plan of Treatment Not on file documented as of this encounter Visit Diagnoses Not on filedocumented in this encounter Care Teams Chip Bin Conveyor Tender Relationship Specialty Start Date End Date Modesto Reyez DO PCP - General Internal Medicine 01/03/20 01/13/23 documented as of this encounter
--- OUTSIDE RECORDS SUMMARY | 2024-11-15 05:58 | XMS_ITS | Encounter Summary ---
Author Organization [facility] Address [address] [place] [address] Phone Care Team Providers Care Interior Design Program Chair Name Role Phone Modesto Reyez DO Primary Care Provider Encounter Details Date Type Department Care Team (Late st Contact Info) Description 11/22/2021 Telephone [facility] Pulmonary [facility] Advanced Medicine 8th [place] [address] [place] [address] Barbara White RN Social History Tobacco Use Types Packs/Day Years Used Date Smoking Tobacco: Never Smokeless Tobacco: Never Alcohol Use Standard Drinks/Week Comments Not Currently 0 (1 standard drink = 0.6 oz pur e alcohol) Comments Unknown Sex and Gender Information Value Date Recorded Sex Assigned at Not on file Legal Sex Female 1:14 AM BRAKE LINING CURER Gender Identity Female 05/04/2020 3:33 PM CDT Sexual Orientation Not on file documented as of this encounter Miscellaneous Notes * Telephone Encounter - Barbara White RN - 11/23/2021 10:51 AM BRAKE LINING CURER I spoke w/Mae, pts daughter. I let her know Dr. Correa will speak w/her mom's rheum dr next weekwhen she returns to office. Also discussed weather or not to keep her local spool tender. Discussed benefits of having a local dr in case she gets acutely sick and needs seen urgently. Mae did state that her passenger car conductor did hold MTX and increased pred to 15 mg a day for time being. She is still taking plaquenil. E LINING CURER * Telephone Encounter - Barbara White RN - 11/22/2021 3:22 PM BRAKE LINING CURER Returned call to pts daughter. NO answer. LMOR for her to call office. ----- Message from KISHA Haddad sent at 11/22/2021 11:48 AM BRAKE LINING CURER ----- Pt Mae wants to speak with you regarding patient. She didn't leave much of the message of what the call is regarding. Pt can be reached at: . Thanks. E LINING CURER E LINING CURER documented in this encounter Plan of Treatment Not on file documented as of this encounter Visit Diagnoses Not on filedocumented in this encounter Care Teams Interior Design Program Chair Relationship Specialty Start Date End Date Modesto Reyez DO PCP - General Internal Medicine 01/03/20 01/13/23 documented as of this encounter
--- OUTSIDE RECORDS SUMMARY | 2024-11-15 05:58 | XMS_ITS | Encounter Summary ---
Author Organization [facility] Address [address] [place] [address] Phone Care Team Providers Care Big Data Analytics Lead Name Role Phone Modesto Reyez DO Primary Care Provider [phone] Encounter Details Date Type Department Care Team (Late st Contact Info) Description 05/23/2022 Telephone [facility] Pulmonary [facility] Advanced [facility] 8th [place] [address] [place] [address] Barbara White RN Social History Tobacco Use Types Packs/Day Years Used Date Smoking Tobacco: Never Smokeless Tobacco: Never Alcohol Use Standard Drinks/Week Comments Not Currently 0 (1 standard drink = 0.6 oz pur e alcohol) Comments Unknown Sex and Gender Information Value Date Recorded Sex Assigned at Not on file Legal Sex Female 1:14 AM PIE TOPPER Gender Identity Female 05/04/2020 3:33 PM CDT Sexual Orientation Not on file 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 Pt is currently admitted to [facility]. She fell out of bed and broke 3ribs. She also is covid positive. MD Correa notified. Daughter will keep us updated on how pt is doing. documented in this encounter Plan of Treatment Not on file documented as of this encounter Visit Diagnoses Not on filedocumented in this encounter Care Teams Big Data Analytics Lead Relationship Specialty Start Date End Date Modesto Reyez DO PCP - General Internal Medicine 01/03/20 01/13/23 documented as of this encounter
--- OUTSIDE RECORDS SUMMARY | 2024-11-15 05:58 | XMS_ITS | Encounter Summary ---
Author Organization [facility] Address [address] [place] [address] Phone Care Team Providers Care Printing Press Operator Apprentice Name Role Phone Modesto Reyez DO Primary Care Provider [phone] Encounter Details Date Type Department Care Team (Late st Contact Info) Description 01/09/2022 Orders Only [facility] Pulmonary [address] [facility] Advanced Medicine 8th [place] [address] [place] [address] Barbara White RN ILD (interstitial lung disease) (CMS/HCC) (HCC) (Primary Dx) Social History Tobacco Use Types Packs/Day Years Used Date Smoking Tobacco: Never Smokeless Tobacco: Never Alcohol Use Standard Drinks/Week Comments Not Currently 0 (1 standard drink = 0.6 oz pur e alcohol) Comments Unknown Sex and Gender Information Value Date Recorded Sex Assigned at Not on file Legal Sex Female 1:14 AM SCAGLIOLA MECHANIC Gender Identity Female 05/04/2020 3:33 PM CDT Sexual Orientation Not on file documented as of this encounter Progress Notes * Babrara White, BILLY - 01/09/2022 12:36 PM CST Pt added to schedule to see Dr. Correa on 01/16 for hosp f/u LIOLA MECHANIC documented in this encounter Plan of Treatment Not on file documented as of this encounter Visit Diagnoses Diagnosis ILD (interstitial lung disease) (CMS/HCC) (HCC)- Primary Postinflammatory pulmonary fibrosis documented in this encounter Care Teams Printing Press Operator Apprentice Relationship Specialty Start Date End Date Modesto Reyez DO PCP - General Internal Medicine 01/03/20 01/13/23 documented as of this encounter
--- OUTSIDE RECORDS SUMMARY | 2024-11-15 05:58 | XMS_ITS | Encounter Summary ---
Author Organization [facility] Address [address] [place] [address] Care Team Providers Care Wage Adjuster Name Role Phone Modesto Reyez DO Primary Care Provider [phone] Encounter Details Date Type Department Care Team (Latest Contact Info) Description 03/16/2022 9:05 AM CDT - 03/16/2022 11:59 PM CDT Hospital Encounter [facility] [address] [place] [address] Discharge Disposition: Discharge to home or self care Social History Tobacco Use Types Packs/Day Years Used Date Smoking Tobacco: Never Smokeless Tobacco: Never Alcohol Use Standard Drinks/Week Comments Not Currently 0 (1 standard drink = 0.6 oz pur e alcohol) Comments Unknown Sex and Gender Information Value Date Recorded Sex Assigned at Not on file Legal Sex Female 1:14 AM INFORMATION RESOURCES DIRECTOR Gender Identity Female 05/04/2020 3:33 PM CDT Sexual Orientation Not on file 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 [...] mcg by mouth daily 2 furosemide (LASIX) 20 mg tablet Take 1 tab every other day with baseline dose of 40 mg a day 15 tablet 4 03/16/2022 2 furosemide (LASIX) 40 mg tablet TAKE 1 TABLET BY MOUTH EVERY MORNING AND ONE-HALF TABLET BY MOUTH EVERY EVENING 135 tablet 3 09/06/2020 2 hydroxychloroqui ne (PLAQUENIL) 200 mg tablet Take 1 tablet (200 mg total) by mouth 2 (two) times a day 11/26/2019 4 metoprolol XL (TOPROL-XL) 100 mg 24 hr tablet TAKE 1 TABLET(100 MG) BY MOUTH FELLMONGERY WORKER BEFORE BREAKFAST 90 tablet 3 05/18/2021 2 [...] Diagnosis Comments CT BODY OUTSIDE REFERENCE Routine 03/16/2022 9:05 AM CDT documented in this encounter Results * CT Body Outside Reference (03/16/2022 9:05 AM CDT) Impressions [facility] - 03/16/2022 9:05 AM CDT These images are for Reference purposes only and have not been reviewed by [facility]. ??There will be no report generated by a [facility] Radiologist. Narrative [facility] - 03/16/2022 9:05 AM CDT EXAMINATION: ??Images For Reference Purposes Only us Renetta Goodson MD IMG CT PROCEDURES Final R esult [facility] documented in this encounter Visit Diagnoses Not on filedocumented in this encounter Care Teams Wage Adjuster Relationship Specialty Start Date End Date Modesto Reyez DO PCP - General Internal Medicine 01/03/20 01/13/23 documented as of this encounter
--- OUTSIDE RECORDS SUMMARY | 2024-11-15 05:58 | XMS_ITS | Encounter Summary ---
Author Organization [facility] Address [address] [facility] [address] [place] [address] Phone Care Team Providers Care Mental Health Nurse Practitioner Name Role Phone Modesto Reyez DO Primary Care Provider [phone] Reason for Referral * (Routine) - Closed Specialty Diagnoses / Procedures Referred By Contac t Referred To Contact Diagnoses ILD (interstitial lung disease) ([facility]) ([facility]) Procedures Pulmonary Function Test -[facility]FT [facility]- CAM-8D; Spirometry with Bronchodilator, Spirometry, Oxygen Assessment Titration, ABG, DLCO, Lung Volumes; Pleth with Airway Resistance; Room Air ABG; Spirometry Denita Correa MD [id number] [address] Phone: tel: fax: Referral ID Status Reason Start Date Expiration Date Visits Re quested Visits Authorized [id number] Closed 06/07/2021 07/07/2022 1 1 LINE SERVICE ATTENDANT Reason for Visit * (Routine) - Closed Specialty Diagnoses / Procedures Referred By Contac t Referred To Contact Diagnoses ILD (interstitial lung disease) ([facility]) ([facility]) Procedures Pulmonary Function Test -[facility]FT [facility]- CAM-8D; Spirometry with Bronchodilator, Spirometry, Oxygen Assessment Titration, ABG, DLCO, Lung Volumes; Pleth with Airway Resistance; Room Air ABG; Spirometry Denita Correa MD [address] [address] Phone: tel: fax: Referral ID Status Reason Start Date Expiration Date Visits Re quested Visits Authorized [id number] Closed 06/07/2021 07/07/2022 1 1 Encounter Details Date Type Department Care Team (Latest Contact Info) Description 11/03/2021 7:07 AM GASOLINE SERVICE ATTENDANT - 11/03/2021 8:13 AM GASOLINE SERVICE ATTENDANT Hospital Encounter [facility] Pulmonary [address] [facility] [address] [place] [address] ILD (interstitial lung disease) ([facility]) ([facility]) Discharge Disposition: Discharge to home or self care Social History Tobacco Use Types Packs/Day Years Used Date Smoking Tobacco: Never Smokeless Tobacco: Never Alcohol Use Standard Drinks/Week Comments Not Currently 0 (1 standard drink = 0.6 oz pur e alcohol) Comments Unknown Sex and Gender Information Value Date Recorded Sex Assigned at Not on file Legal Sex Female 1:14 AM GASOLINE SERVICE ATTENDANT Gender Identity Female 05/04/2020 3:33 PM CDT [...] tablet TAKE 1 TABLET(100 MG) BY MOUTH HAMMER SMITH BEFORE BREAKFAST 90 tablet 3 05/18/2021 2 [...] Diagnosis Comments PULMONARY FUNCTION TEST (PFT) Routine 11/03/2021 8:06 AM GASOLINE SERVICE ATTENDANT ILD (interstitial lung disease) ([facility]) ([facility]) documented in this encounter Results * Pulmonary Function Test - (11/03/2021 8:06 AM GASOLINE SERVICE ATTENDANT) FVC PRE 1.22 L [facility] FVC %PRE PRED 47 % [facility] FVC POST 1.34 L [facility] FVC %POST PRED 52 % [facility] FEV1 PRE 1.11 L [facility] FEV1 %PRE PRED 56 % [facility] FEV1 POST 1.21 L [facility] FEV1 %POST PRED 61 % [facility] FEV1/FVC PRE 91.0 % [facility] FEV1/FVC POST 90.3 % [facility] FRC PL PRE 1.48 L [facility] FRC PL %PRE PRED 54 % [facility] RV PRE 1.29 L [facility] RV %PRE PRED 60 % [facility] TLC PRE 2.63 L [facility] TLC %PRE PRED 55 % [facility] DLCO PRE 8.1 ml/min/mmH g [facility] DLCO %PRE PRED 45 % [facility] FIO2 % 21.00 % [facility] PaO2 81.0 mmHg [facility] PaCO2 41.0 mmHg [facility] pH 7.44 [facility] A-aDO2 POC 17.0 mmHg [facility] METHGB % 1.4 % [facility] COHb POC 2.7 % [facility] HCO3 27.8 mEq/L [facility] Anatomical Region Laterality Modality PFT 11/03/2021 7:23 AM GASOLINE SERVICE ATTENDANT Narrative 11/08/2021 1:00 PM GASOLINE SERVICE ATTENDANT [facility] Division of Pulmonary & Critical Care Medicine [address] [place] [address]; [place] [address] [facility]; [place], [place] ??[address]; [phone] Pulmonary Function Laboratory Pulmonary Stress Test Simple/Oxygen Assessment Patient: Ayanna Cash Date: 11/03/2021 Physician: EMERSON Ht: 62 ?? Wt: 249 Room: OP Mulling Machine Operator: DUSTY : 1950 Diagnosis: ILD Time(min) Distance (ft)/ Ozuna O2 L/M SpO2 HR Kaitlin* BP FEV1/ ?% Pred Rest: ?2 100 52 0 150/72 ?/ ??RA 99 54 ? Walk/Bike: ? 1 ??RA 91 90 2 ?? 2 ??RA/2/4 87/86/90 98/89/86 2 ?? 3 ? 4 ? 5 ? 6 min 0 sec ? Recovery: ? 1 ??4 100 62 0 159/74 ?/ 2 ??4 ?/ ? *Kaitlin rate of perceived exertion (1-10 dyspnea scale) ?? Victor M, CHEST 2003; [phone] Walk Test Summary: Six Minute Walk Distance: 85 ft Six minute Walk Work [distance (m) x body wt (kg)]: 2921 kg.m (normal >60,000 kg.m) Oxygen required to maintain SpO2 greater than 90% during six minutes of walking: ??L/M Comments:STOP WALKING DUE TO HIP PAIN WALKED WITH WALKER Interpretation: Breathing room air, SpO2 is normal at rest and during exercise sufficient to increase pulse from ??54 to 98 b/min, SpO2 falls to hypoxemic levels. ?? On this basis, SpO2 is adequate at rest breathing supplemental O2 at 4 L/min and while walking breathing room air. Karthikeyan Nayak MD By signing this report, the attending pulmonary physician certifies that he/she has personally reviewed and interpreted the graphic and numerical data associated with this pulmonary function study and has reviewed and /or edited a preliminary draft report and agrees with the written final report. PFT performed at:->[facility] Adult PFT Lab- [facility] Procedure:->Spirometry with Bronchodilator Procedure:->Spirometry Procedure:->Oxygen Assessment Titration Procedure:->ABG Procedure:->DLCO Procedure:->Lung Volumes Lung Volumes via:->Pleth with Airway Resistance ABG:->Room Air ABG DLCO:->Spirometry us Denita Correa MD PFT ORDERABLES Final Result documented in this encounter Visit Diagnoses Diagnosis ILD (interstitial lung disease) (CMS/HCC) (HCC) Postinflammatory pulmonary fibrosis documented in this encounter Care Teams Mental Health Nurse Practitioner Relationship Specialty Start Date End Date Modesto Reyez DO PCP - General Internal Medicine 01/03/20 01/13/23 documented as of this encounter
--- OUTSIDE RECORDS SUMMARY | 2024-11-15 05:58 | XMS_ITS | Encounter Summary ---
Author Organization [facility] Address [address] [place] [address] Phone Care Team Providers Care Record Press Supervisor Name Role Phone Modesto Reyez DO Primary Care Provider [phone] Reason for Visit * Reason Onset Date Comments Medical Records Request 03/09/2022 Encounter Details Date Type Department Care Team (Late st Contact Info) Description 03/09/2022 Telephone [facility] Rheumatology [address] [place] [address] 5th [place] [address] [place] [address] Tomeka Kwok RMA Medical Records Request Social History Tobacco Use Types Packs/Day Years Used Date Smoking Tobacco: Never Smokeless Tobacco: Never Alcohol Use Standard Drinks/Week Comments Not Currently 0 (1 standard drink = 0.6 oz pur e alcohol) Comments Unknown Sex and Gender Information Value Date Recorded Sex Assigned at Not on file Legal Sex Female 1:14 AM HEAD WAITER Gender Identity Female 05/04/2020 3:33 PM CDT Sexual Orientation Not on file 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 Kobe Gerard (language path) and Dr. Noreen Norman (pulmonogist). * Telephone Encounter - Tomeka Kwok MA - 03/09/2022 10:13 AM CDT ----- Message from Sandra Bauman MD sent at 03/09/2022 8:37 AM CDT ----- Obtain records from her previous language path (Dr. Talley) and business machine operator (Dr. Connors). documented in this encounter Plan of Treatment Not on file documented as of this encounter Visit Diagnoses Not on filedocumented in this encounter Care Teams Record Press Supervisor Relationship Specialty Start Date End Date Modesto Reyez DO PCP - General Internal Medicine 01/03/20 01/13/23 documented as of this encounter
--- OUTSIDE RECORDS SUMMARY | 2024-11-15 05:58 | XMS_ITS | Encounter Summary ---
Author Organization [facility] Address [address] [place] [address] Phone Care Team Providers Care Buffing Turner And Counter Name Role Phone Modesto Reyez DO Primary Care Provider [phone] Encounter Details Date Type Department Care Team (Late st Contact Info) Description 05/01/2022 Telephone [facility] Pulmonary [facility] [facility] 8th [place] [address] [place] [address] Andreia Ricks RMA Social History Tobacco Use Types Packs/Day Years Used Date Smoking Tobacco: Never Smokeless Tobacco: Never Alcohol Use Standard Drinks/Week Comments Not Currently 0 (1 standard drink = 0.6 oz pur e alcohol) Comments Unknown Sex and Gender Information Value Date Recorded Sex Assigned at Not on file Legal Sex Female 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 OFFICIAL Gender Identity Female 05/04/2020 3:33 PM CDT Sexual Orientation Not on file 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 Patient stated the last week of May and 2nd week of June are weeks that she is unavailable. Thanks! documented in this encounter Plan of Treatment Not on file documented as of this encounter Visit Diagnoses Not on filedocumented in this encounter Care Teams Buffing Turner And Counter Relationship Specialty Start Date End Date Modesto Reyez DO PCP - General Internal Medicine 01/03/20 01/13/23 documented as of this encounter
--- OUTSIDE RECORDS SUMMARY | 2024-11-15 05:58 | XMS_ITS | Encounter Summary ---
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) Procedures XR Hip Right 2 or 3 Views XR Hip Right 4 or More Views Sandra Bauman MD [address] [facility] [address] [address] Phone: tel: fax: [address] [phone] Referral ID Status Reason Start Date Expiration Date Visits Re quested Visits Authorized [id number] Closed 03/09/2022 04/08/2023 1 1 * Diagnostic Imaging (Routine) - Closed Specialty Diagnoses / Procedures Referred By Contac t Referred To Contact Diagnoses 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) Procedures XR Shoulder Left 2 or More Views Sandra Bauman MD [address] [address] Phone: tel: fax: [address] [phone] Referral ID Status Reason Start Date Expiration Date Visits Re quested Visits Authorized [id number] Closed 03/09/2022 04/08/2023 1 1 * Diagnostic Imaging (Routine) - Closed Specialty Diagnoses / Procedures Referred By Janae t Referred To Contact Diagnoses 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) Procedures XR Shoulder Right 2 or More Views Sandra Bauman MD [address] [place] [address] Phone: tel: fax: [facility] 1 [facility] [place] [address] Referral ID Status Reason Start Date Expiration Date Visits Re quested Visits Authorized [id number] Closed 03/09/2022 04/08/2023 1 1 Reason for Visit * Consultation (Routine) - Closed Specialty Diagnoses / Procedures Referred By Contmeghana t Referred To Contact Rheumatology Diagnoses 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) Denita Correa MD [address] [place] [address] Phone: tel: fax: [facility] (All Locations) Referral ID Status Reason Start Date Expiration Date V isits Requested Visits Authorized [id number] Closed Specialty Services Required 01/05/2022 02/04/2023 30 30 Encounter Details Date Type Department Care Team (Late st Contact Info) Description 03/09/2022 8:00 AM CDT Office Visit [facility] Rheumatology [address] [place] [address] 5th [place] [address] [place] [address] 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) Social History Tobacco Use Types Packs/Day Years Used Date Smoking Tobacco: Never Smokeless Tobacco: Never Alcohol Use Standard Drinks/Week Comments Not Currently 0 (1 standard drink = 0.6 oz pur e alcohol) Comments Unknown Sex and Gender Information Value Date Recorded Sex Assigned at Not on file Legal Sex 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 Gender Identity Female 05/04/2020 3:33 PM CDT Sexual Orientation Not on file 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 Not on file Not on file Not on file documented as of this encounter Last Filed Vital Signs Vital Sign Reading Time Taken Comments Blood Pressure 146/108 03/09/2022 7:55 AM CDT Pulse 71 03/09/2022 7:55 AM CDT Temperature 36.7 ??C (98.1 ??F) 03/09/2022 7:55 AM CD T Respiratory Rate - - Oxygen Saturation - - Inhaled Oxygen Concentration - - Weight 115.2 kg (254 lb) 03/09/2022 7:55 AM CDT Height 157.5 cm (5' 2 ) 03/09/2022 7:55 AM CDT Body Mass Index 46.46 03/09/2022 7:55 AM CDT documented in this encounter Progress Notes * Sandra Bauman MD - 03/09/2022 8:00 AM CDT RHEUMATOLOGY CONSULT NOTE Referring Physician: Denita Correa MD Reason for Referral: Interstitial lung disease and rheumatoid arthritis Chief Complaint: Interstitial lung disease and rheumatoid arthritis HPI: Ayanna Cash is a 71 y.o. female, referred for evaluation of interstitial lung disease The patient states that she developed polyarticular joint pain and swelling involving shoulders, elbows, and the hands, and significant dyspnea about 3 years ago. She was evaluated by Rheumatology and Pulmonary and was diagnosed with rheumatoid arthritis and lung disease. She was placed on oxygen at 2 L with exertion. Therapy for rheumatoid arthritis included hydroxychloroquine followed by addition of methotrexate (max dose 12.5 m q/wk). She was also taking Macrodantin from time to time for herurinary tract infection. She was hospitalized in September 2021 with Influenza A. Her respiratory symptoms worsened and her oxygen needs went up to 4 L with exertion and 2 L at rest. [facility] October 2021 and it was decided to take her off methotrexate in November. She was also placed on prednisone therapy at 15 mg a day. She had a 2nd hospitalization in December 2021 with increasing shortness of breath. Her prednisone dose was increased to 40 mg a day for 5 days and then reduced to 15 mg a day. She has noted worsening dyspnea and limitation in her walking ability since her illness in September 2021. She uses a walker at home due to arthritis and pain in right hip and bilateral knees. Her primary assembly inspector is Dr. Talley in [place]. She is currently on hydroxychloroquine 200 mg b.i.d. and prednisone 15 mg a day. Therapy with abatacept was being considered but it was not approved by insurance company. She has prior history of DVTs that 1st occurred in [address] trip vi to [place]. Shewas diagnosed with DVT and PE. Was placed on Coumadin. Took Coumadin for about 3 years. Her Coumadin was discontinued in 2006. 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 She reports family history of DVT/PE and rheumatoid arthritis (dad of PE). Previous Rheumatologic Diagnosis: Rheumatoid arthritis Previous Rheumatologic Medicines: Methotrexate ([id number]) Current Rheumatologic Medicines: Hydroxychloroquine, prednisone REVIEW OF SYSTEMS: (POSITIVES IN BOLD) GENERAL: Morning stiffness (30 minutes or more), fatigue, fever,intermittent chills, night sweats, weight loss >10 lbs, weight gain >10 lbs EYES: Blurred vision, red eye, eye pain, dry eyes, eyelid sores EARS: Wax, hearing loss, ringing in the ears, drainage, ear cartilage pain NOSE: Nasal sores, bleeding, sinus drainage, congestion, cartilage pain MOUTH and NECK: Teeth decay, thrush, dry mouth, ulcers, angular cheilosis, lymphadenopathy HEART: Chest pain, palpitations, orthopnea, syncope, edema LUNGS: Shortness of breath, dry cough, pleurisy, wheezing, rib fracture GI: Nausea, vomiting, reflux, hematemesis, abdominal pain, diarrhea, constipation, rectal bleed, hemorrhoids : Nocturia, dysuria, frequency, urgency, kidney stones, brown foamy urine, hematuria, vaginal discharge SKIN: Rash, itching, dry skin, acne, psoriasis MS: Muscle weakness, muscle tenderness, muscle cramps, joint pain, joint swelling NEURO: Headaches, seizures, dizziness, confusion, numbness, tingling in b/l legs HEME: Bruising, bleeding, swollen glands, anemia, low cell counts VASC: Edema, blood clots, poor circulation, ? 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 Atrial [...] use: Not Currently Alcohol/week: 0.0 standard drinks No Known Allergies Current Outpatient Medications Medication Sig Dispense Refill ??? calcium carbonate-vit D3-min 600 mg calcium- [...] (two) times a day ??? furosemide (LASIX) 40 mg tablet TAKE 1 TABLET BY MOUTH EVERY MORNING AND ONE-HALF TABLET BY MOUTH EVERY EVENING (Patient taking differently: 40 mg daily) 135 tablet 3 ??? hydroxychloroquine (PLAQUENIL) 200 mg tablet Take 200 mg by mouth 2 (two) times a day ??? levothyroxine (SYNTHROID) 112 mcg tablet Take 112 mcg by mouth daily ??? metoprolol XL (TOPROL-XL) 100 mg 24 hr tablet TAKE 1 TABLET(100 MG) BY MOUTH INSPECTOR STRUCTURAL BONDING BEFORE BREAKFAST 90 tablet 3 ??? metoprolol XL (TOPROL-XL) 25 mg extended release tablet TAKE 1 TABLET(25 MG) BY MOUTH DAILY 90 tablet 3 ??? phenazopyridine (PYRIDIUM) 200 mg tablet TAKE 1 TABLET BY MOUTH THREE TIMES DAILY NEEDED FORURINARY SYMPTOMS ??? potassium chloride ER (KLOR-CON) 10 mEq CR tablet Take 10 mEq by mouth daily ??? pravastatin (PRAVACHOL) 80 mg tablet Take 80 mg by mouth daily ??? predniSONE (DELTASONE) 10 mg tablet Take 10 mg by mouth every morning ??? sertraline (ZOLOFT) 50 mg tablet Take 50 mg by mouth daily ??? traMADoL (ULTRAM) 50 mg tablet Take by mouth every 8 (eight) hours as needed ??? predniSONE (DELTASONE) 5 mg tablet Take 5 mg by mouth every morning ??? trimethoprim (TRIMPEX) 100 mg tablet Take 100 mg by mouth nightly at bedtime. No current facility-administered medications for this visit. Physical Examination: BP (!) 146/108 Pulse 71 Temp 36.7 ??C (98.1 ??F) Ht 157.5 cm (5' 2 ) Wt 115.2 kg (254 lb) BMI 46.46 kg/m?? General: alert, cooperative, no distress HEENT: EOMI,ISH, moist oral mucosa, no oral/nasal lesion, no lymphadenopathy Skin: Rash - Nodules: - Lungs: clear to auscultation bilaterally Heart: regular rate and rhythm .Pulses OK. No edema Abdomen: soft without mass, non-tender, with normal bowel sounds Neuromuscular: Cranial nerves grossly intact, muscle strength normal and symmetrical in upper and lower extremities Tinel's Test +: Right: no Left: no Joint Review Right Left Shoulder Tenderness over the joint line and with ROM normal Elbow normal normal Wrist normal normal MCP normal normal PIP normal normal DIP normal normal Knee Tenderness over the joint line and with ROM Tenderness over the joint line and with ROM Ankle normal normal Foot normal normal Normal Hip ROM: yes SI Joints: Normal Spine: Normal alignment, no tenderness to palpation Swollen Joints: 0 Trigger/ tender Points; Tight Muscle Groups: no LABORATORY STUDIES AND OTHER DATA: CT Chest 11/03/2021 FINDINGS: Comparison is made to the lung bases from a prior abdominal pelvic CT of 01/02/2020. No supraclavicular, axillary or mediastinal lymphadenopathy is seen. The main pulmonary artery is mildly enlarged measuring about 3.5 cm orthogonal to the long axis. Heart size is mildly enlarged. No pleural or pericardial effusion. ?? Patient is post cholecystectomy. Right renal cyst is seen but no hydronephrosis. Mild left renal atrophy is seen and note is made of diffuse diverticulosis of the colon but no diverticulitis. ?? The lung windows show areas of reticulation and ground glass with some honeycombing. Findings have no vertical predilection but some of the honeycombing is greater in the upper lobes. In addition, there is minimal air trapping. No significant change is seen when compared to the prior study of 01/02/2020. Consultation of findings is in keeping with collagen vascular disease interstitial lung disease. ?? Bone windows do not demonstrate any osseous lesion. ?? IMPRESSION: Findings in keeping with a collagen vascular disease interstitial lung disease with a predominantly nonspecific interstitial pneumonia type pattern. No significant change is seen in severity when the portions of the lung bases are compared to the prior study of 01/14/2020. PFT DATA: 10/29/2021: FEV1 1.11 L (56% pred) , FVC 1.22 L(47 % pred), FEV1 FVC ratio 91 %, DLCO 45% IMPRESSION: Ayanna Cash, 71 y.o. female ?? Diagnosed with rheumatoid arthritis and lung disease in 2018, placed on hydroxychloroquine and methotrexate with progressive decline in respiratory status, particularly worsened after influenza inNov2020 ?? Currently on hydroxychloroquine and prednisone 15 mg/day; methotrexate discontinued in November 2021 ?? Oxygen needs at 4 L with exertion and 2 L at rest ?? DVT and PE x 2, 1st episode was provoked and the 2nd episode occurred with discontinuation on Coumadin ?? Dad was diagnosed with rheumatoid arthritis and of PE ?? Atrial fibrillation ?? Hypertension ?? Hypothyroidism PLAN/RECOMMENDATIONS: ?? Obtain labs including CBC, CMP, inflammatory markers, RA panel, any panel, antiphospholipid antibody panel, hepatitis panel, and TB gold ?? Obtain x-ray of bilateral hands, bilateral shoulders, bilateral knees, and the right hip ?? We briefly discussed the use of abatacept vs MMF + abatacept with the patient; further recommendations to be made after review of above studies and after discussing with Pulmonary ?? Her prednisone dose could also be increased to 0.5 mg/kg/dya for few weeks followed by a slow taper ?? Obtain all records from Rheumatology and Pulmonary including prior serologies, CT scans, echocardiogram, and lung function test The patient is to return to clinic in 3-4 weeks. Thank you for the consultation and allowing me to participate in the care of your patient. Orders Placed This Encounter Procedures ??? XR Hand Bilateral 3 or More Views of Each Standing Status: Future Number of Occurrences: 1 Standing Expiration Date: 03/09/2023 Order Specific Question: Where should this order be performed? Answer: [facility] [[id number]] ??? XR Knee Bilateral 4 or More Views Standing Status: Future Number of Occurrences: 1 Standing Expiration Date: 03/09/2023 Scheduling Instructions: PLEASE INCLUDE SUNRISE VIEWS Order Specific Question: Where should this order be performed? Answer: [facility] [152] ??? XR Shoulder Right 2 or More Views Order Specific Question: Clinical question to be answered: Answer: Pain. R/o inflammatory arthritis Order Specific Question: Where should this order be performed? Answer: [facility] [152] ??? XR Shoulder Left 2 or More Views Order Specific Question: Clinical question to be answered: Answer: Pain. R/o inflammatory arthritis Order Specific Question: Where should this order be performed? Answer: [facility] [152] ??? XR Hip Right 2 or 3 Views Order Specific Question: Clinical question to be answered: Answer: Pain. R/o inflammatory arthritis Order Specific Question: Where should this order be performed? Answer: [facility] [152] ??? CBC with auto differential Standing Status: Future Number of Occurrences: 1 Standing Expiration Date: 03/09/2023 ??? Comprehensive metabolic panel Standing Status: Future Number of Occurrences: 1 Standing Expiration Date: 03/09/2023 ??? Creatine kinase (CK), total Standing Status: Future Number of Occurrences: 1 Standing Expiration Date: 03/09/2023 ??? HANNAH qualitative with reflex to HANNAH Quantitative Standing Status: Future Number of Occurrences: 1 Standing Expiration Date: 03/09/2023 ??? CRP (acute phase) Standing Status: Future Number of Occurrences: 1 Standing Expiration Date: 03/09/2023 ??? Cyclic citrul peptide antibody, IgG Standing Status: Future Number of Occurrences: 1 Standing Expiration Date: 03/09/2023 ??? TERESA Antibody Evaluation with Reflex Standing Status: Future Number of Occurrences: 1 Standing Expiration Date: 03/09/2023 ??? Erythrocyte sedimentation rate Standing Status: Future Number of Occurrences: 1 Standing Expiration Date: 03/09/2023 ??? Hepatitis panel, acute Standing Status: Future Number of Occurrences: 1 Standing Expiration Date: 03/09/2023 ??? Rheumatoid factor Standing Status: Future Number of Occurrences: 1 Standing Expiration Date: 03/09/2023 ??? Cardiolipin antibody, IgG and IgM Standing Status: Future Number of Occurrences: 1 Standing Expiration Date: 03/09/2023 ??? Beta 2 glycoprotein IgA Ab Standing Status: Future Number of Occurrences: 1 Standing Expiration Date: 03/09/2023 ??? Beta 2 glycoprotein IgG Ab Standing Status: Future Number of Occurrences: 1 Standing Expiration Date: 03/09/2023 ??? Beta 2 glycoprotein IgM Ab Standing Status: Future Number of Occurrences: 1 Standing Expiration Date: 03/09/2023 ??? Myomarker panel 3 Standing Status: Future Number of Occurrences: 1 Standing Expiration Date: 03/09/2023 ??? Aldolase Standing Status: Future Number of Occurrences: 1 Standing Expiration Date: 03/09/2023 ??? 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) Expected: 03/09/2022, Expires: 03/09/2023 documented as of this encounter Procedures Procedure [...] in this encounter Results * XR Hip Right 2 or 3 Views (03/09/2022 10:11 AM CDT) Anatomical Region Laterality Modality Lower Extremities, Hip, Pelvis Right C omputed Radiography 03/09/2022 10:2 0 AM CDT Impressions [...] MD IMG XR PROCEDURES Final Result * XR Shoulder Left 2 or More Views (03/09/2022 10:11 AM CDT) Anatomical Region Laterality Modality Upper Extremities, Shoulder Left Comp uted Radiography 03/09/2022 10:2 0 AM CDT Impressions [...] by: Kieran Tay MD Sandra Bauman MD IM XR PROCEDURES Final Result * XR Shoulder Right 2 or More Views (03/09/2022 10:11 AM CDT) Anatomical Region Laterality Modality Upper Extremities, Shoulder Right Comp uted Radiography 03/09/2022 10:2 0 AM CDT Impressions [...] MD IMG XR PROCEDURES Final Result * XR Hand Bilateral 3 or More [...] MD IMG XR PROCEDURES Final Result * T-SPOT.TB (03/09/2022 9:20 AM CDT) [facility] T-SPOT.TB Negative [facility] Comment: Normal Value: Negative A negative test [...] test. T-SPOT.TB Panel A Spot Count 0 [facility] T-SPOT.TB Panel B Spot Count 0 [facility] T-SPOT.TB Negative Control Passed [facility] T-SPOT.TB Positive Control Passed [facility] Comment: Test Performed at: [address] [place], [place] ??[address] ? CORAZON IBARRA MD,PHD Blood 03/09/2022 9:20 AM CDT 03/09/2022 10:33 AM CDT Sandra Bauman MD LAB MICROBIOLOGY - GENERAL ORDER KHOA Final Result [facility] Department [place] [address] * (ABNORMAL) Aldolase (03/09/2022 9:20 AM CDT) Aldolase 9.5(H) 0.1 - 8.0 Units/L [facility] Blood 03/09/2022 9:20 AM CDT 03/09/2022 10:20 AM CDT us Sandra Bauman MD LAB BLOOD ORDERABLES Final Resul t Performing Organization Address City/[facility]/ZIP Co de Phone Number [facility] Department [place] [address] * Myomarker panel 3 (03/09/2022 9:20 AM CDT) Anti-Loretta-1 ab <20 <20 Units [facility] Anti PL-7 ab Negative Negative [facility] Comment: This test was developed and its performance characteristics determined by [facility]. It has not been cleared or approved by the Food and Drug Administration. Anti PL-12 ab Negative Negative [facility] Comment: This test was developed and its performance characteristics determined by [facility]. It has not been cleared or approved by the Food and Drug Administration. Anti EJ ab Negative Negative [facility] Comment: This test was developed and its performance characteristics determined by [facility]. It has not been cleared or approved by the Food and Drug Administration. Anti OJ ab Negative Negative [facility] Comment: This test was developed and its performance characteristics determined by [facility]. It has not been cleared or approved by the Food and Drug Administration. Anti SRP ab Negative Negative [facility] Comment: This test was developed and its performance characteristics determined by [facility]. It has not been cleared or approved by the Food and Drug Administration. Anti Mi-2 ab Negative Negative [facility] Comment: This test was developed and its performance characteristics determined by [facility]. It has not been cleared or approved by the Food and Drug Administration. Polymyositis PM-SCL ab <20 <20 Units [facility] Comment: This test was developed and its performance characteristics determined by [facility]. It has not been cleared or approved by the Food and Drug Administration. Fibrillarin U3 ab Negative Negative [facility] Comment: This test was developed and its performance characteristics determined by [facility]. It has not been cleared or approved by the Food and Drug Administration. ?Interpretation for Anti-Loretta-1, [id number]-IZE-[id number], ?Anti-MDA-5, Anti-NXP-2, Anti-PM/Scl-100, ?Anti-SS-A 52 kD, Anti-U1 ADMINISTRATIVE ASSOCIATE: ?Negative: ?<20 ?Weak Positive: ? 20 - 39 ?Moderate Positive: ? 40 - 80 ?Strong Positive: ? >80 ?. Test Performed by: [facility] [place] [address] Anti U2 SN ADMINISTRATIVE ASSOCIATE ab Negative Negative [facility] Comment: This test was developed and its performance characteristics determined by [facility]. It has not been cleared or approved by the Food and Drug Administration. Anti U1RNP ab <20 <20 Units [facility] Anti KU ab Negative Negative [facility] Comment: This test was developed and its performance characteristics determined by [facility]. It has not been cleared or approved by the Food and Drug Administration. P155/140 ab <20 <20 Units [facility] Comment: This test was developed and its performance characteristics determined by [facility]. It has not been cleared or approved by the Food and Drug Administration. MDA-5 P140 ab <20 <20 Units [facility] Comment: This test was developed and [facility] performance characteristics [facility] It has not been cleared or approved by the Food and Drug Administration. NXP-2 P140 ab <20 <20 Units [facility] Comment: This test was developed and its performance characteristics determined [facility]. It has not been cleared or approved by the Food and Drug Administration. SSA52 KD ab IgG <20 <20 Units [facility] Comment: This test was developed and its performance characteristics [facility]. It has not been cleared or approved by the Food and Drug Administration. Blood 03/09/2022 9:20 AM CDT 03/09/2022 10:39 AM CDT us Sandra Bauman MD LAB BLOOD ORDERABLES Final Resul t [facility] Department [place] [address] * Beta 2 glycoprotein IgM Ab (03/09/2022 9:20 AM CDT) [facility] Beta-2 glycoprotein I, IgM 3.6 <=19.9 units/mL [facility] Comment: Interpretive Data Negative: <20 U/mL [...] factor. ??These results were obtained with the Anchor™ 2200 System. Beta-2 GP1 IgM values obtained with different manufacturers' assay methods may not be used interchangeably. Current interpretive data was last revised on 2017. Blood 03/09/2022 9:20 AM CDT 03/09/2022 10:20 AM CDT Sandra Bauman MD LAB BLOOD ORDERABLES Final Resul t Performing Organization Address [facility] [place] [address] * Beta 2 glycoprotein IgG Ab (03/09/2022 9:20 AM CDT) Beta-2 glycoprotein I, IgG 2.7 <=19.9 units/mL [facility] Comment: Interpretive Data Negative: <20 U/mL Positive: > or = 20 U/mL ? Beta-2 glycoprotein 1 (Beta-2 GP1) antibodies are a more specific marker of thrombotic risk. It is expected that some samples will be ACL positive and Beta- 2 [id number]. In order to improve specificity, the International Congress on Antiphospholipid Antibodies recommends Beta-2 GP1 antibodies of IgG or IgM isotype ??(> the 99th percentile), obtained twice, at least 12 weeks apart, to support a diagnosis of antiphospholipid syndrome. The cutoff for this assay was developed from data based on the 99th percentile. These results were obtained with the Anchor™ 2200 System. Beta 2GP1 IgG values obtained with different manufacturers' assay methods may not be used interchangeably. Current interpretive data was last revised on 2017. Blood 03/09/2022 9:20 AM CDT 03/09/2022 10:20 AM CDT Sandra Bauman MD LAB BLOOD ORDERABLES Final Resul t Performing Organization Address [facility] Co de Phone Number [facility] [place] [address] * Beta 2 glycoprotein IgA Ab (03/09/2022 9:20 AM CDT) Beta-2 glycoprotein I, IgA 2.2 <=19.9 units/mL [facility] Comment: Interpretive Data Negative: <20 U/mL Positive: > or = 20 U/mL ? The International Congress on Antiphospholipid Antibodies does not recommend testing for IgA Beta-2 glycoprotein 1 (Beta-2 GP1) since this isotype rarely occurs in the absence of IgG or IgM [id number], and the association of an isolated IgA Beta-2 IL2tptj APA clinical signs and symptoms is weak. The following results were obtained with the Anchor™ 2200 System. Beta-2 GP1IgA values obtained with different manufacturers' assay methods may not be used interchangeably. Current interpretive data was last revised on 2017. Blood 03/09/2022 9:20 AM CDT 03/09/2022 10:20 AM CDT us Sandra Bauman MD LAB BLOOD ORDERABLES Final Resul t [facility] Department [place] [address] * Cardiolipin antibody, IgG and IgM (03/09/2022 9:20 AM CDT) Cardiolipin, IgG 2.9 <=19.9 GPL U/mL [facility] Comment: Interpretive Data Negative: <20 GPL U/mL [...] ABDI. These results were obtained with the Isotera BioPlex 2200 System. Cardiolipin IgG values obtained with different manufacturers' assay methods may not be used interchangeably. Current interpretive data was last revised on 2017. Cardiolipin, IgM 6.5 <=19.9 MPL U/mL [facility] Comment: Interpretive Data Negative: <20 MPL U/mL [...] antibodies. ??These results were obtained with the Isotera BioPlex 2200 System. Cardiolipin IgM values obtained with different manufacturers' assay methods may not be used interchangeably. Current interpretive data was last revised on 2017. Blood 03/09/2022 9:20 AM CDT 03/09/2022 10:20 AM CDT us Sandra Bauman MD LAB BLOOD ORDERABLES Final Resul t [facility] Department [place] [address] * (ABNORMAL) Rheumatoid factor (03/09/2022 9:20 AM CDT) Rheumatoid factor, quant 63.0(H) 0.1 - 15.0 IUnits/mL [facility] Blood 03/09/2022 9:20 AM CDT 03/09/2022 10:20 AM CDT Sandra Bauman MD LAB BLOOD ORDERABLES Final Resul t Performing Organization Address [facility] Co de Phone Number [facility] Department [place] [address] * Hepatitis panel, acute (03/09/2022 9:20 AM CDT) Hep A IgM Nonreactive Nonreactive [facility] Comment: Interpretive Data: If Hep A IgM Ab is reported as Equivocal, a new sample should be drawn in two weeks for testing. Current interpretive data was last revised on 20. Hep B core IgM Nonreactive Nonreactive [facility] Comment: Interpretive Data If HepB Core IgM Ab is reported as Equivocal, a new sample should be drawn in two weeks for testing. Current interpretive data was last revised on 20. Hep C Ab Nonreactive Nonreactive [facility] Comment:Antibodies to HCV no t detected. Does NOT exclude the possibility of recent exposure to HCV. HepBsAg Nonreactive Nonreactive [facility] Blood 03/09/2022 9:20 AM CDT 03/09/2022 10:20 AM CDT Sandra Bauman MD LAB MICROBIOLOGY - GENERAL ORDER KHOA Final Result Performing Organization Address [facility] de Phone Number [facility] Department [place] [address] * Erythrocyte sedimentation rate (03/09/2022 9:20 AM CDT) Erythrocyte sedimentation rate 19 1 - 30 mm/hr [facility] Blood 03/09/2022 9:20 AM CDT 03/09/2022 10:20 AM CDT Sandra Bauman MD LAB BLOOD ORDERABLES Final Resul t Performing Organization Address [facility] Co de Phone Number [facility] [place] [address] * TERESA Antibody Evaluation with Reflex (03/09/2022 9:20 AM CDT) Pathologist [facility] TERESA ab Negative Negative [facility] Comment: Interpretive Data Positive Screens will be reflexed to specific testing for the following antigens: Loretta-1 Ab, ADMINISTRATIVE ASSOCIATE Ab, Scl-70 Ab, Barton Ab, SS-A/Ro Ab, and SS-B/La Ab. Further testing for dsDNA, Centromere, or Ribosomal P antibodies is suggested in patient with a positive screen and negative specific antibodies. Current interpretive data was last revised on 17. Blood 03/09/2022 9:20 AM CDT 03/09/2022 10:20 AM CDT Sandra Bauman MD LAB BLOOD ORDERABLES Final Resul t Performing Organization Address [facility] Co de Phone Number [facility] [place] [address] * (ABNORMAL) Cyclic citrul peptide antibody, IgG (03/09/2022 9:20 AM CDT) Pathologist [facility] CCP Ab 21.8(H) <=2.9 units/mL [facility] Comment: Interpretive data Negative: <3 units/mL Positive: > or equal to 3 units/mL Current interpretive data was last revised on 2017. Blood 03/09/2022 9:20 AM CDT 03/09/2022 10:20 AM CDT Sandra Bauman MD LAB BLOOD [place] [address] * CRP (acute phase) (03/09/2022 9:20 AM CDT) Pathologist [facility] CRP 4.1 <=10.0 mg/L [facility] Blood 03/09/2022 9:20 AM CDT 03/09/2022 10:20 AM CDT Sandra Bauman MD LAB BLOOD ORDERABLES Final Resul t Performing Organization Address [facility] de Phone Number [facility] [place] [address] * HANNAH qualitative with reflex to HANNAH Quantitative (03/09/2022 9:20 AM CDT) HANNAH Positive 1:160 [facility] Comment: Interpretive Data Normal range for HANNAH [...] revised on 2020. HANNAH, quant 1:160 titer [facility] HANNAH, interp Homogeneous [facility] Blood 03/09/2022 9:20 AM CDT 03/09/2022 10:20 AM CDT Sandra Bauman MD LAB BLOOD ORDERABLES Final Resul t Performing Organization Address [facility] de Phone Number [facility] Department [place] [address] * Creatine kinase (CK), total (03/09/2022 9:20 AM CDT) CK, Total 35 26 - 308 IU/L [facility] Blood specimen (specimen) 03/09/2022 9:20 AM CDT 03/09/2022 11:59 AM CDT Sandra Bauman MD LAB BLOOD ORDERABLES Final Resul t [facility] * [...] 9:20 AM CDT 03/09/2022 11:59 AM CDT us Sandra Bauman MD LAB BLOOD ORDERABLES Final Resul t [facility] * (ABNORMAL) CBC with auto differential (03/09/2022 [...] 9:20 AM CDT 03/09/2022 11:59 AM CDT [facility] - 03/09/2022 12:57 PM CDT Repeated and Verified us Sandra Bauman MD LAB BLOOD ORDERABLES Final Resul t [facility] documented in this encounter Visit Diagnoses Diagnosis 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) 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) 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) documented in this encounter Discontinued Medications Medication Sig Discontinue Reason Start Date End Da te metroNIDAZOLE (METROCREAM) 0.75 % cream Therapy completed 01/05/2022 03/09/2022 methotrexate 2.5 mg tablet Take 2.5 mg by mouth once a week Take 5 tablets once weekly Therapy completed 01/21/2020 03/09/2022 ipratropium (ATROVENT) 0.02 % nebulizer solution USE 1 VIAL VIA NEBULIZER EVERY 6 HOURS Therapy completed 01/05/2022 03/09/2022 famotidine (PEPCID) 20 mg tablet Take 20 mg by mouth every 12 (twelve) hours Therapy completed 01/05/2022 03/09/2022 albuterol HFA (PROVENTIL HFA,VENTOLIN HFA,PROAIR HFA) 90 mcg/actuation inhaler INHALE 2 PUFFS EVERY 6 HOURS NEEDED FOR SHORTNESS OF BREATH OR WHEEZING Therapy completed 10/09/2021 03/09/2022 albuterol 2.5 mg /3 mL (0.083 %) nebulizer solution INHALE 1 VIAL IN NEBULIZER EVERY 6 HOURS Therapy completed 01/05/2022 03/09/2022 nitrofurantoin monohydrate (MACROBID) 100 mg capsule TAKE 1 CAPSULE BY MOUTH EVERY 12 HOURS FOR 7 DAYS 12/11/2021 03/09/2022 cephalexin (KEFLEX) 250 mg capsule TAKE 1 CAPSULE BY MOUTH EVERY 8 HOURS 11/24/2021 03/09/2022 folic acid (FOLVITE) 1 mg tablet Take 1 mg by mouth daily Therapy completed 12/14/2019 03/09/2022 documented as of this encounter Historical Medications * This list may reflect changes made after this encounter. trimethoprim (TRIMPEX) 100 mg tablet Take 100 mg by mouth nightly at bedtime. 02/23/2022 07/03/2022 predniSONE (DELTASONE) 5 mg tablet Take 15 mg by mouth every morning 02/15/2022 08/21/2022 added in this encounter Orders Outpatient Referral Count Last Ordered Date Fir st Ordered Date AMB REFERRAL TO RHEUMATOLOGY 1 03/09/2022 documented in this encounter Care Teams Kelp Or Seagrass Gatherer Relationship Specialty Start Date End Date Modesto Reyez DO PCP - General Internal Medicine 01/03/20 01/13/23 documented as of this encounter
--- OUTSIDE RECORDS SUMMARY | 2024-11-15 05:58 | XMS_ITS | Encounter Summary ---
Author Organization [facility] Address [address] [facility] [address] [facility] [address] [place] [address] Care Team Providers Care Line Technician Name Role Phone Modesto Reyez Primary Care Provider [phone] Reason for Visit * Reason Comments Follow-up 4 wk Congestive Heart Failure Atrial Fibrillation Encounter Details Date Type Department Care Team (Late st Contact Info) Description 05/10/2022 9:00 AM CDT Office Visit [facility] Cardiology [address] [facility] [address] [place] [address] Yolanda Soto NP [address] [facility] [address] [place] [address] Chronic heart failure with preserved ejection fraction (CMS/HCC) (HCC) (Primary Dx); Paroxysmal atrial fibrillation (CMS/HCC) (HCC); Chronic anticoagulation Social History Tobacco Use Types Packs/Day Years Used Date Smoking Tobacco: Never Smokeless Tobacco: Never Alcohol Use Standard Drinks/Week Comments Not Currently 0 (1 standard drink = 0.6 oz pur e alcohol) Comments Unknown Sex and Gender Information Value Date Recorded Sex Assigned at Not on file Legal Sex Female 1:14 AM HAND ENGRAVER Gender Identity Female 05/04/2020 3:33 PM CDT Sexual Orientation Not on file 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 Not on file Not on file documented as of this encounter Last Filed Vital Signs Vital Sign Reading Time Taken Comments Blood Pressure 146/82 05/10/2022 9:12 AM CDT Pulse 68 05/10/2022 9:12 AM CDT Temperature - - Respiratory Rate - - Oxygen Saturation 94% 05/10/2022 9:12 AM CDT Inhaled Oxygen Concentration - - Weight 112.9 kg (249 lb) 05/10/2022 9:12 AM CDT Height 157.5 cm (5' 2 ) 05/10/2022 9:12 AM CDT Body Mass Index 45.54 05/10/2022 9:12 AM CDT documented in this encounter Ordered Prescriptions Prescription Sig Dispense Quantity Refills Last Filled Start Date End Date furosemide (LASIX) 20 mg tabletIndications: Chronic heart failure with preserved ejection fraction (CMS/HCC) (HCC) Take 1 tablet (20 mg total) by mouth daily To be taken along with furosemide 40 mg tab daily (TOTAL 60MG) 90 tablet 3 05/10/2022 2 furosemide (LASIX) 40 mg tabletIndications: Chronic heart failure with preserved ejection fraction (CMS/HCC) (HCC) Take 1 tablet (40 mg total) by mouth daily To be taken along with furosemide 20 mg tab daily (TOTAL 60MG) 90 tablet 3 05/10/2022 2 potassium chloride ER (KLOR-CON) 10 mEq CR tabletIndications: Chronic heart failure with preserved ejection fraction (CMS/HCC) (HCC) Take 3 tablet/capsule (30 mEq total) by mouth daily 270 tablet/capsul e 3 05/10/2022 2 documented in this encounter Progress Notes * Yolanda Soto, ZULY - 05/10/2022 9:00 AM CDT Images from the original note were not included. [facility] Cardiology [address] [place] [address] Date of Visit: 05/10/2022 Patient ID: Ayanna Cash 1950 Chief Complaint Patient presents with ??? Follow-up 4 wk ??? Congestive Heart Failure ??? Atrial Fibrillation Ayanna Cash is a 72 y.o. female who is an established patient of Dr. Reyes with a history ofPAF and chronic diastolic heart failure returning for one-month follow-up. History of Present Illness: Ayanna Cash [...] was previously followed by Dr. [place]. Her pressure controller is Dr. Norman. Her neurophysiological technician is Dr. Kobe Gerard. She presented to [facility] on 01/01/2020 with complaint of [...] trying to lose some weight, following a 1106-9452 Na restriction. Now using a foot pedal [...] 09/29/21 CAT visit-On 09/21/21 she went to [facility] ER for complaint of worsening [...] referred her to pulmonology at [facility] and that appointment is next month. 12-lead ECG performed in the office today was independently interpreted by me and showed sinus rhythm, normal axis and normal intervals, rate 88 beats per minute 11/02/21 Says not feeling any better at all after admission to [facility] with influenza B hurts to doeverything takes a lot out of her, no energy or appetite, SOB same as before. Attributes a lot to being off her pain meds including Hydroxychloroquine and Methotrexate for a while while in hospital. On CPAP. Not much edema though. Pain is mostly in shoulders and hands. Uses heating pad and Tylenol.Saw PCP recently. Sees Pulm at [facility] tomorrow. Using 2L O2 at rest 4L O2 with activity. She notes her O2 drops to 85% on 4L still. Rheum adjusting meds on prednisone for 1 week without noted improvement thus far. Has PT coming into home. 04/17/22 Admitted to [facility] with ILD and CHF admits she hasn't [...] complaints. She repeated the BMP this morning. Records that I personally reviewed on the day of this visit include: (the interpretation is outlined in the HPI above) 04/17/[address] Reyes, subsequent telephone notes in [facility], BMP results from 2019 to present. I have also reviewed: allergies, current medications, [...] fever, weight gain and weight loss. HENT: Positive for hearing loss. Eyes: Negative for visual disturbance. Cardiovascular: Positive for leg swelling. Negative for chest pain, claudication, orthopnea, palpitations, paroxysmal nocturnal dyspnea and syncope. Respiratory: Positive for shortness of breath. Negative for cough, hemoptysis, snoring and wheezing. Hematologic/Lymphatic: Bruises/bleeds easily. Skin: Negative for poor wound healing and rash. Musculoskeletal: Positive for joint pain and myalgias. Gastrointestinal: Negative for heartburn, nausea and vomiting. Genitourinary: Negative for hematuria. Neurological: Negative for dizziness, headaches and light-headedness. Psychiatric/Behavioral: Positive for depression. The patient is not nervous/anxious. Vital Signs: BP 146/82 (BP Location: Left arm, Patient Position: Sitting) Pulse 68 Ht 157.5 cm (5' 2 ) Wt 112.9 kg (249 lb) SpO2 94% BMI 45.54 kg/m?? Physical Exam Constitutional: General: She is [...] No respiratory distress. Comments: Course breath sounds throughout; wearing supplemental oxygen via nasal cannula. Musculoskeletal: Comments: Trace bilateral lower extremity edema Skin: General: Skin is warm and dry. Neurological: Mental Status: She is alert and oriented to person, place, and time. Psychiatric: Mood and Affect: Mood normal. Behavior: Behavior normal. No Known Allergies Current Outpatient Medications: ??? abatacept (Orencia ClickJect) 125 mg/mL auto-injector, Inject 1 mL (125 mg total) under the skin once a week, Disp: 4 mL, Rfl: 2 ??? calcium carbonate-vit D3-min 600 mg [...] times a day, Disp: , Rfl: ??? hydroxychloroquine (PLAQUENIL) 200 mg tablet, Take 200 mg by mouth 2 (two) times a day , Disp: , Rfl: ??? levothyroxine (SYNTHROID) 112 mcg tablet, Take 112 mcg by mouth daily, Disp: , Rfl: ??? metoprolol XL (TOPROL-XL) 100 mg 24 hr tablet, TAKE 1 TABLET(100 MG) BY MOUTH PROJECT ASST BEFORE BREAKFAST, Disp: 90 tablet, Rfl: 3 ??? metoprolol XL (TOPROL-XL) 25 mg extended release tablet, TAKE 1 TABLET(25 MG) BY MOUTH DAILY, Disp: 90 tablet, Rfl: 3 ??? phenazopyridine (PYRIDIUM) 200 mg tablet, TAKE 1 TABLET BY MOUTH THREE TIMES DAILY NEEDED FOR URINARY SYMPTOMS, Disp: , Rfl: ??? pravastatin (PRAVACHOL) 80 mg tablet, Take 80 mg by mouth daily, Disp: , Rfl: ??? predniSONE (DELTASONE) 5 mg tablet, Take 5 mg by mouth every morning, Disp: , Rfl: ??? sertraline (ZOLOFT) 50 mg tablet, Take 50 mg by mouth daily, Disp: , Rfl: ??? traMADoL (ULTRAM) 50 mg tablet, Take by mouth every 8 (eight) hours as needed, Disp: , Rfl: ??? trimethoprim (TRIMPEX) 100 mg tablet, Take 100 mg by mouth nightly at bedtime., Disp: , Rfl: ??? furosemide (LASIX) 20 mg tablet, Take 1 tablet (20 mg total) by mouth daily To be taken along with furosemide 40 mg tab daily (TOTAL 60MG), Disp: 90 tablet, Rfl: 3 ??? furosemide (LASIX) 40 mg tablet, Take 1 tablet (40 mg total) by mouth daily To be taken along with furosemide 20 mg tab daily (TOTAL 60MG), Disp: 90 tablet, Rfl: 3 ??? potassium chloride ER (KLOR-CON) 10 mEq CR tablet, Take 3 tablet/capsule (30 mEq total) by mouth daily, Disp: 270 tablet/capsule, Rfl: 3 Lab Results Component Value Date CREATININE 1.18 (H) 03/09/2022 Lab Results Component Value Date WBC 16.0 (H) 03/09/2022 HGB 10.7 (L) 03/09/2022 HCT 33.9 (L) 03/09/2022 MCV 96.8 03/09/2022 PLT 320 03/09/2022 Assessment: Diagnoses and all orders for this visit: Chronic heart failure with preserved ejection fraction (CMS/HCC) ([facility]) (Primary) - potassium chloride ER (KLOR-CON) 10 mEq CR tablet; Take 3 tablet/capsule (30 mEq total) by mouth daily - furosemide (LASIX) 40 mg tablet; Take 1 tablet (40 mg total) by mouth daily To be taken along with furosemide 20 mg tab daily (TOTAL 60MG) - furosemide (LASIX) 20 mg tablet; Take 1 tablet (20 mg total) by mouth daily To be taken along with furosemide 40 mg tab daily (TOTAL 60MG) Paroxysmal atrial fibrillation (CMS/HCC) ([facility]) Chronic anticoagulation Plan/Recommendations: Chronic diastolic heart failure appears to have stabilized. She has lost 11 lb after increased doseof furosemide. I recommend she continue the current dose of furosemide 60 mg daily (she will use one 40 mg tablet and one 20 mg tablet daily) along with KCl 30 mEq daily. I will follow-up on the BMP she had drawn this morning to make sure her creatinine is stable. I reinforced importance of low-sodium diet. Atrial fibrillation is rate controlled and asymptomatic. She is not having any bleeding problems although she bruises easily. Continue metoprolol and Eliquis. Return to the office to see Dr. Reyes in 4 months. Call us sooner with questions or concerns. 16:30 Addendum: I received resolve the BMP done this morning. It showed K 4.4, BUN 39, creatinine 1.3, GFR 40. This is stable compared to her last results I recommend she continue same dosages of furosemide and potassium chloride. I left the patient and her daughter voicemail explaining this. 05/10/2022 Yolanda Soto ANP-BC Nurse Practitioner with [facility] This note is dictated and transcribed using [employer] Direct Software. Registration Specialist variancesmay occur. Despite proofreading, typographical errors may occur. documented in this encounter Plan of Treatment Not on file documented as of this encounter Visit Diagnoses Diagnosis Chronic heart failure with preserved ejection fraction (CMS/HCC) (HCC)- Primary Paroxysmal atrial fibrillation (CMS/[facility]) (HCC) Atrial fibrillation Chronic anticoagulation Encounter for long-term (current) use of anticoagulants documented in this encounter Discontinued Medications Medication Sig Discontinue Reason Start Date End Da te potassium chloride ER (KLOR-CON) 10 mEq CR tablet Take 10 mEq by mouth daily Dose adjustment 05/10/2022 furosemide (LASIX) 40 mg tablet TAKE ONE AND ONE-HALFTABLET BY MOUTH EVERY MORNING (TOTAL 60MG) Dose adjustment 04/17/2022 05/10/2022 furosemide (LASIX) 20 mg tablet Take 1 tab every other day with baseline dose of 40 mg a day Reorder 03/16/2022 05/10/2022 documented as of this encounter Care Teams Line Technician Relationship Specialty Start Date End Date Modesto Reyez DO PCP - General Internal Medicine 01/03/20 01/13/23 documented as of this encounter
--- OUTSIDE RECORDS SUMMARY | 2024-11-15 05:58 | XMS_ITS | Encounter Summary ---
Author Organization [facility] Address [address] [place] [address] Phone Care Team Providers Care Hasher Machine Operator Name Role Phone Modesto Reyez Primary Care Provider [phone] Ni Armas RN Unavailable Lizette Liliana Prakash MD Primary Care Provider [phone] Timothy Donis MD Primary Care Provider [phone] Reason for Visit * Reason Onset Date Comments prior auth request 03/28/2022 Laurita Encounter Details Date Type Department Care Team (Late st Contact Info) Description 03/28/2022 Telephone [facility] Rheumatology [facility] [address] [place] [address] [place] [address] Tomeka Kwok RMA prior auth request (Orejonathania) Social History Tobacco Use Types Packs/Day Years Used Date Smoking Tobacco: Never Smokeless Tobacco: Never Alcohol Use Standard Drinks/Week Comments Not Currently 0 (1 standard drink = 0.6 oz pur e alcohol) Comments Unknown Sex and Gender Information Value Date Recorded Sex Assigned at Not on file Legal Sex Female 1:14 AM 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 * Telephone Encounter - Marine Doyle MA - 04/08/2023 9:51 AM CDT RENEWAL Tate: [id number] [employer] Medicare Orencia ClickJect 125MG/ML auto-injectors Case # [id number] Prior Auth Status: Approval Coverage Date: 01/11/2023-04/11/2024 * Telephone Encounter - Brandee Nino COA - 04/03/2022 5:50 AM CDT Faxed appeal to [facility] [place] D-04/03 Orencia ClickJect 125MG/ML auto-injectors [employer] D Appeal case#: [id number] Appeal Status: Approved Effective Dates:01/04/22 to 04/04/23 * Telephone Encounter - Sandra Bauman MD - 04/02/2022 5:16 PM CDT Letter drafted. * Telephone Encounter - Brandee Nino COA - 03/29/2022 9:58 AM CDT Tate: [id number] Orencia ClickJect 125MG/ML auto-injectors [employer] case#: [id number] Status: Denied Reason: Pt must have tried and fail BOTH preferred meds: Xeljanz and Rinvoq. Please write a LMN if you wish to appeal. * Telephone Encounter - Khloe Nick - 03/28/2022 2:21 PM CDT Tate: [id number] Orencia ClickJect 125MG/ML auto-injectors [employer] Status: Pending * Telephone Encounter - Tomeka Kwok MA - 03/28/2022 2:09 PM CDT Ayanna Cash Tate: [id number] - Rx #: [id number] Status New(Not sent to plan) Drug Orencia ClickJect 125MG/ML auto-injectors Form [employer] Medicare Electronic [place] Form documented in this encounter Plan of Treatment [...] the result is from a facility outside [facility] . 05/22/2022 05/27/2022 06/17/2022 3:05 AM CDT COVID: Recovered Comment:Added based on recent COVID infection. 06/17/2022 06/18/2022 10/15/2022 3:[address] documented as of this encounter Care Teams Hasher Machine Operator Relationship Specialty Start Date End Date Modesto Reyez DO PCP - General Internal Medicine 01/03/20 01/13/23 Liliana Baron MD PCP - General Internal Medicine 01/14/23 04/11/23 Timothy Donis MD PCP - General Family Practice 04/12/23 Ni Armas, RN Registered Nurse Pulmonary Disease 01/11/23 documented as of this encounter
--- OUTSIDE RECORDS SUMMARY | 2024-11-15 05:58 | XMS_ITS | Encounter Summary ---
Author Organization [facility] Address [address] [place] [address] Phone Care Team Providers Care Mixer Dry Food Products Name Role Phone Modesto Reyez DO Primary Care Provider Reason for Visit * Reason Onset Date Comments Medical Records Request 11/13/2021 Encounter Details Date Type Department Care Team (Late st Contact Info) Description 11/13/2021 Documentation [facility] Pulmonary [address] Advanced Medicine 8th [place] [address] [place] [address] Denita Correa MD [address] [facility] [address] [place] [address] Medical Records Request Social History Tobacco Use Types Packs/Day Years Used Date Smoking Tobacco: Never Smokeless Tobacco: Never Alcohol Use Standard Drinks/Week Comments Not Currently 0 (1 standard drink = 0.6 oz pur e alcohol) Comments Unknown Sex and Gender Information Value Date Recorded Sex Assigned at Not on file Legal Sex Female 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 Treated for influenza B and diuresed. Labs from 10/07/21: WBC 7.7, Hgb 9.0, Plt 275, Creat 1.10, N WOOD SHADE ASSEMBLER documented in this encounter Plan of Treatment Not on file documented as of this encounter Visit Diagnoses Not on filedocumented in this encounter Care Teams Mixer Dry Food Products Relationship Specialty Start Date End Date Modesto Reyez DO PCP - General Internal Medicine 01/03/20 01/13/23 documented as of this encounter
--- OUTSIDE RECORDS SUMMARY | 2024-11-15 05:58 | XMS_ITS | Encounter Summary ---
Author Organization [facility] Healthcare Address [address] [place] [address] Care Team Providers Care Is Analyst Name Role Phone Modesto Reyez DO Primary Care Provider [phone] Encounter Details Date Type Department Care Team (Latest Contact Info) Description 03/16/2022 9:03 AM CDT Hospital Encounter [facility] [address] [place] [id number] Discharge Disposition: Discharge to home or self care Social History Tobacco Use Types Packs/Day Years Used Date Smoking Tobacco: Never Smokeless Tobacco: Never Alcohol Use Standard Drinks/Week Comments Not Currently 0 (1 standard drink = 0.6 oz pur e alcohol) Comments Unknown Sex and Gender Information Value Date Recorded Sex Assigned at Not on file Legal Sex Female 1:14 AM JAVA ARCHITECT Gender Identity Female 05/04/2020 3:33 PM CDT Sexual Orientation Not on file 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 ??There will be no report generated by a [facility] Radiologist. Narrative [facility] - 03/16/2022 9:03 AM CDT EXAMINATION: ??Images For Reference Purposes Only us Renetta Goodson MD IMG US PROCEDURES Final R esult [facility] documented in this encounter Visit Diagnoses Not on filedocumented in this encounter Care Teams Is Analyst Relationship Specialty Start Date End Date Modesto Reyez DO PCP - General Internal Medicine 01/03/20 01/13/23 documented as of this encounter
--- OUTSIDE RECORDS SUMMARY | 2024-11-15 05:58 | XMS_ITS | Encounter Summary ---
Author Organization [facility] Address [address] [place] [address] Care Team Providers Care Pharmacist Aide Name Role Phone Modesto Reyez Primary Care Provider [phone] Reason for Visit * Reason Comments Congestive Heart Failure Atrial Fibrillation 3 mo f/u Encounter Details Date Type Department Care Team (Late st Contact Info) Description 04/17/2022 3:45 PM CDT Office Visit [facility] Cardiology [address] [place] [address] Myles Reyes MD [address] [facility] [address] [place] [address] Chronic heart failure with preserved ejection fraction (CMS/HCC) (HCC) (Primary Dx); Paroxysmal atrial fibrillation (CMS/HCC) (HCC); Chronic anticoagulation; ILD (interstitial lung disease) (CMS/HCC) (HCC); Chronic respiratory failure with hypoxia (CMS/HCC) (HCC); STARR on CPAP; Morbid obesity with BMI of 45.0-49.9, adult (CMS/HCC) (HCC) Social History Tobacco Use Types Packs/Day Years Used Date Smoking Tobacco: Never Smokeless Tobacco: Never Alcohol Use Standard Drinks/Week Comments Not Currently 0 (1 standard drink = 0.6 oz pur e alcohol) Comments Unknown Sex and Gender Information Value Date Recorded Sex Assigned at Not on file Legal Sex Female 1:14 AM COGENERATION TECHNICIAN Gender Identity Female 05/04/2020 3:33 PM CDT Sexual Orientation Not on file 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 Not on file Not on file documented as of this encounter Last Filed Vital Signs Vital Sign Reading Time Taken Comments Blood Pressure 120/80 04/17/2022 4:01 PM CDT Pulse 70 04/17/2022 4:01 PM CDT Temperature - - Respiratory Rate - - Oxygen Saturation 97% 04/17/2022 4:01 PM CDT Inhaled Oxygen Concentration - - Weight 117.9 kg (260 lb) 04/17/2022 4:01 PM CDT Height 157.5 cm (5' 2 ) 04/17/2022 4:01 PM CDT Body Mass Index 47.55 04/17/2022 4:01 PM CDT documented in this encounter Ordered Prescriptions Prescription Sig Dispense Quantity Refills Last Filled Start Date End Date furosemide (LASIX) 40 mg tablet TAKE ONE AND ONE-HALFTABLE T BY MOUTH EVERY MORNING (TOTAL 60MG) 135 tablet 3 04/17/2022 2 documented in this encounter Progress Notes * Myles Reyes MD - 04/17/2022 3:45 PM CDT [facility] DATE OF VISIT: 04/17/2022 CHIEF COMPLAINT Chief Complaint Patient presents with ??? Congestive Heart Failure ??? Atrial Fibrillation 3 mo f/u ASSESSMENT Diagnoses and all orders for this visit: Chronic heart failure with preserved ejection fraction (CMS/HCC) ([facility]) (Primary) - Basic metabolic panel; Future Paroxysmal atrial fibrillation (CMS/HCC) (HCC) - Basic metabolic panel; Future Chronic anticoagulation ILD (interstitial lung disease) (CMS/HCC) (HCC) Chronic respiratory failure with hypoxia (CMS/HCC) ([facility]) STARR on CPAP - Basic metabolic panel; Future Morbid obesity with BMI of 45.0-49.9, adult (CMS/HCC) ([facility]) Other orders - furosemide (LASIX) 40 mg tablet; TAKE ONE AND ONE-HALFTABLET BY MOUTH EVERY MORNING (TOTAL 60MG) PLAN/RECOMMENDATIONS 1. AFib paroxysmal, SR on exam [...] RA, dietary lifestyle and inconsistency with recommendations. -Increase Lasix to 60mg daily and monitor closely call with readings, inc KCl to 30MEQ daily and check BMP in one week. Call next week with daily weight, symptoms for recommendations. Patient and daughter verbalized understanding and agreed with plan of care. The appreciated my explanations and time spent with them. -She has not been compliant with sodium and diet restrictions as previously counseled. Stressed theimportance of consistent compliance with recommendations as her edema is multifactorial but exacerbated by lack of activity, sedentary lifestyle, excess sodium intake, STARR, obesity. 4. Compliance with medications, recommendations follow-up once [...] exercise, reduction in caloric intake. Personally reviewed [facility] records from Dec 2021. My total encounter time on 04/17/2022 was 49 minutes which was spent in the activities documented inthe note. This includes time spent prior to the visit and after the visit in direct care of the patient. This time does not include time spent in any separately reportable services. Over 50% of this visit counseling CHF, HTN, lipids, medications, lifestyle modification. Follow up in the office in 1 month or sooner as needed. Thank you for allowing me the privilege of participating in the care this very pleasant patient. Please do not hesitate to contact me with any additional questions or concerns. NIRANJAN Cash is a 71 y.o. female with a PMHx of rheumatoid arthritis, hypertension, hyperlipidemia, morbid obesity, STARR, diastolic heart failure, atrial fibrillation, and interstitial lung disease. She was on amiodarone and digoxin in the past , she had also had a successful cardioversion in the past. Mahamed in September 2019 showed EF 60%. She was previously followed by Dr. Parker. Her deployment technician is Dr. Norman. Her day camp counselor is Dr. Kobe Gerard. She presented to [facility] on 01/01/2020 with complaint of worsening [...] CPAP machine nightly, but sometimes remove sit prison through the night. PCP follows her INRs [...] trying to lose some weight, following a [id number] Na restriction. Now using a foot pedal [...] 09/29/21 CAT visit-On 09/21/21 she went to [facility] ER for complaint of worsening shortnessof [...] Norman has referred her to pulmonology at [facility] and that appointment is next month. 12-lead ECG performed in the office today was independently interpreted by me and showed sinus rhythm, normal axis and normal intervals, rate 88 beats per minute 11/02/21 Says not feeling any better at all after admission to [facility] with influenza B hurts to doeverything takes a lot out of her, no energy or appetite, SOB same as before. Attributes a lot to being off her pain meds including Hydroxychloroquine and Methotrexate for a while while in hospital. On CPAP. Not much edema though. Pain is mostly in shoulders and hands. Uses heating pad and Tylenol.Saw PCP recently. Sees Pulm at [place] tomorrow. Using 2L O2 at rest 4L O2 with activity. She notes her O2 drops to 85% on 4L still. Rheum adjusting meds on prednisone for 1 week without noted improvement thus far. Has PT coming into home. 04/17/22 Admitted to [facility] with ILD and CHF admits she hasn't [...] cans daily (which pt did not mention). MEDICAL HISTORY Past Medical History: Diagnosis Date ??? Atrial [...] XL (TOPROL-XL) 25 mg extended release tablet phenazopyridine (PYRIDIUM) 200 mg tablet potassium chloride ER (KLOR-CON) 10 mEq CR tablet pravastatin (PRAVACHOL) 80 mg tablet predniSONE (DELTASONE) 10 mg tablet predniSONE (DELTASONE) 5 mg tablet sertraline (ZOLOFT) 50 mg tablet traMADoL (ULTRAM) 50 mg tablet trimethoprim (TRIMPEX) 100 mg tablet furosemide (LASIX) 40 mg tablet abatacept (Orencia ClickJect) 125 mg/mL auto-injector furosemide (LASIX) 40 mg tablet ALLERGIES No Known Allergies REVIEW [...] for environmental allergies. PHYSICAL EXAM Vitals BP 120/80 (BP Location: Right arm, Patient Position: Sitting) Pulse 70 Ht 157.5 cm (5' 2 ) Wt 117.9 kg (260 lb) SpO2 97% BMI 47.55 kg/m?? Weight: 117.9 kg (260 lb) Height: 157.5 cm (5' 2 ) Body mass index is 47.55 kg/m??. Physical Exam Vitals reviewed. Constitutional: General: [...] or performed during the hospital encounter of 03/16/22 Pulmonary Function Test - Result Value Ref Range FVC PRE 1.26 L FVC %PRE PRED 49 % FEV1 PRE 1.10 L FEV1 %PRE PRED 55 % FEV1/FVC PRE 87.0 % 09/29/2021 2D echocardiogram: [facility] EF 55-60% mild LVH, mild LVE, trivial MR, normal pulmonary pressures 10/04/2021 48 hour Holter monitor: Interpretation Summary AMBULATORY TOE TRIMMER REPORT ?? Patient Name: Ayanna Cash Date [...] atrial run. 5. Clinical correlation is recommended. 12/29/21 2D Echo ([facility]): EF 55-60% mild LVH moderate left atrial enlargement no MR unable to estimate PA systolic pressure. No . Personally reviewed EKG, electronic medical record, [facility] records, and bloodwork/lipids. Geetha Reyes MD, [facility] This note is dictated and transcribed using [employer] Direct Software. Window Shade Cutter variancesmay occur. Despite proofreading, typographical errors may occur. documented in this encounter Plan of Treatment Not on file documented as of this encounter Visit Diagnoses Diagnosis Chronic heart failure with preserved ejection fraction (CMS/HCC) (HCC)- Primary Paroxysmal atrial fibrillation (CMS/HCC) (HCC) Atrial fibrillation Chronic anticoagulation Encounter for long-term (current) use of anticoagulants ILD (interstitial lung disease) (CMS/HCC) (HCC) Postinflammatory pulmonary fibrosis Chronic respiratory failure with hypoxia ([facility]) ([facility]) STARR on CPAP Morbid obesity with BMI of 45.0-49.9, adult ([facility]) documented in this encounter Discontinued Medications Medication Sig Discontinue Reason Start Date End Da te furosemide (LASIX) 40 mg tablet TAKE 1 TABLET BY MOUTH EVERY MORNING AND ONE-HALF TABLET BY MOUTH EVERY EVENING Reorder 09/06/2020 04/17/2022 documented as of this encounter Care Teams Pharmacist Aide Relationship Specialty Start Date End Date Modesto Reyez DO PCP - General Internal Medicine 01/03/20 01/13/23 documented as of this encounter
--- OUTSIDE RECORDS SUMMARY | 2024-11-15 05:58 | XMS_ITS | Encounter Summary ---
Author Organization [facility] Address [address] [place] [address] Care Team Providers Care Research And Development Scientist Name Role Phone Modesto Reyez Primary Care Provider [phone] Encounter Details Date Type Department Care Team (Late st Contact Info) Description 05/25/2022 Telephone [facility] Cardiology [address] [place] [address] Myles Reyes MD [address] [facility] [address] [place] [address] Social History Tobacco Use Types Packs/Day Years Used Date Smoking Tobacco: Never Smokeless Tobacco: Never Alcohol Use Standard Drinks/Week Comments Not Currently 0 (1 standard drink = 0.6 oz pur e alcohol) Comments Unknown Sex and Gender Information Value Date Recorded Sex Assigned at Not on file Legal Sex Female 1:14 AM EDUCATIONAL 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 States pt has medicare and BCBS. Contact: * Telephone Encounter - Myles Reyes MD - 05/30/2022 4:42 PM CDT I cannot believe her insurance will not approve a different dose of the same medication particularly one that has been generic for decades. * Telephone Encounter - Noa Cohen MA - 05/25/2022 1:46 PM CDT Called pt to get prescription coverage information. Left msg for pt to call office. Dr. Reyes, Does anything need to be done while pt is in the hospital? Should I attempt PA for metoprolol? * Telephone Encounter - Leonie Cronin - 05/25/2022 8:53 AM CDT Mae called states pt insurance is not covering metoprolol 100 mg but they are covering [id number] mg. Mae wanting to know what to do about the 100 mg. Also states pt is admitted at in room 319 due to fractures in ribs, pulmonary edema, and positive for COVID. Contact: documented in this encounter Plan of [...] eligible to be reviewed 06/0205/31/2022 Eri Oliveros IAdeliel from the Screening question BPA, identifying patients that tested positive for COVID in the last 14 days and the result is from a facility outside [facility] . 05/22/2022 05/27/2022 06/17/2022 3:05 AM CDT COVID: Recovered Comment:Added based on recent COVID infection. 06/17/2022 06/18/2022 10/15/2022 3:[address] documented as of this encounter Care Teams Research And Development Scientist Relationship Specialty Start Date End Date Modesto Reyez DO PCP - General Internal Medicine 01/03/20 01/13/23 documented as of this encounter
--- OUTSIDE RECORDS SUMMARY | 2024-11-15 05:58 | XMS_ITS | Encounter Summary ---
Author Organization [facility] Address [address] [place] [address] Phone Care Team Providers Care Attacher Name Role Phone Modesto Reyez DO Primary Care Provider [phone] Encounter Details Date Type Department Care Team (Late st Contact Info) Description 01/12/2022 Telephone [facility] Pulmonary [facility] [facility] Advanced Medicine 8th [place] [address] [place] [address] Eduar Blunt CPhT Social History Tobacco Use Types Packs/Day Years Used Date Smoking Tobacco: Never Smokeless Tobacco: Never Alcohol Use Standard Drinks/Week Comments Not Currently 0 (1 standard drink = 0.6 oz pur e alcohol) Comments Unknown Sex and Gender Information Value Date Recorded Sex Assigned at Not on file Legal Sex Female 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 - OK to overbook Barbara Burr GER OF SCHOOL documented in this encounter Plan of Treatment Not on file documented as of this encounter Visit Diagnoses Not on filedocumented in this encounter Care Teams Attacher Relationship Specialty Start Date End Date Modesto Reyez DO PCP - General Internal Medicine 01/03/20 01/13/23 documented as of this encounter
--- OUTSIDE RECORDS SUMMARY | 2024-11-15 05:58 | XMS_ITS | Encounter Summary ---
Author Organization [facility] Address [address] [place] [address] Phone Care Team Providers Care Bag Printer Name Role Phone Modesto Reyez Primary Care Provider [phone] Ni Armas RN Unavailable Lizette Liliana Prakash MD Primary Care Provider [phone] Timothy Donis MD Primary Care Provider [phone] Encounter Details Date Type Department Care Team (Latest Contact Info) Description 10/20/2021 Orders Only [facility] Scanning, Provider Social History Tobacco Use Types Packs/Day Years Used Date Smoking Tobacco: Never Smokeless Tobacco: Never Alcohol Use Standard Drinks/Week Comments Not Currently 0 (1 standard drink = 0.6 oz pur e alcohol) Comments Unknown Sex and Gender Information Value Date Recorded Sex Assigned at Not on file Legal Sex Female 1:14 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 05/22/2022 05/27/2022 06/17/2022 3:05 AM CDT COVID: Recovered Comment:Added based on recent COVID infection. 06/17/2022 06/18/2022 10/15/2022 3:[address] documented as of this encounter Care Teams Bag Printer Relationship Specialty Start Date End Date Modesto Reyez DO PCP - General Internal Medicine 01/03/20 01/13/23 Liliana Baron MD PCP - General Internal Medicine 01/14/23 04/11/23 Timothy Donis MD PCP - General Family Practice 04/12/23 Ni Armas, BILLY Registered Nurse Pulmonary Disease 01/11/23 documented as of this encounter
--- OUTSIDE RECORDS SUMMARY | 2024-11-15 05:58 | XMS_ITS | Encounter Summary ---
Author Organization 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) Denita Correa MD [address] [place] [address] Phone: tel: fax: [facility] (All Locations) Referral ID Status Reason Start Date Expiration Date V isits Requested Visits Authorized [id number] Closed Specialty Services Required 01/05/2022 02/04/2023 30 30 Question Answer Please select the performing region: [facility] (All Locations) [[id number]] Service Line General Rheumatology # of visits: 1 Comments RA ILD OMER SUCCESS ASSOCIATE Encounter Details Date Type Department Care Team (Late st Contact Info) Description 01/05/2022 Telephone [facility] Pulmonary [address] Advanced [address] 8th [place] [address] [place] [address] Barbara White RN Social History Tobacco Use Types Packs/Day Years Used Date Smoking Tobacco: Never Smokeless Tobacco: Never Alcohol Use Standard Drinks/Week Comments Not Currently 0 (1 standard drink = 0.6 oz pur e alcohol) Comments Unknown Sex and Gender Information Value Date Recorded Sex Assigned at Not on file Legal Sex Female 1:14 AM CUSTOMER SUCCESS ASSOCIATE Gender Identity Female 05/04/2020 3:33 PM CDT Sexual Orientation Not on file documented as of this encounter Miscellaneous Notes * Telephone Encounter - Barbara White RN - 01/05/2022 1:59 PM CUSTOMER SUCCESS ASSOCIATE Last week on Sat pt starting having tachycardia to 150's. PCP recommended ER but pt reluctant to cathleen. pt took home covid test that was negative. Saturday pt took home covid test that was postivie and called EMS d/t tachycardia/sob. She was d/c'd today from [facility] with 2 additional covid tests that are negative so they haveruled out covid as cause even with the positive home test. Her BNP is 11,000 and she was placed on a lasix gtt. She is requiring 2 LPM at rest and 4 LPM with activity. She is off plaquenil and MTX and only on pred 15 mg - Daughter states this is per rheum who has not been able to get the tocilizumab approved by insurance yet. Daughter is asking if she should be referred to rheum at [facility] and pt also would like to move up her pulmonary f/u apt. MD Correa notified. Will work on a earlier apt and refer to rheum. 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
--- OUTSIDE RECORDS SUMMARY | 2024-11-15 05:58 | XMS_ITS | Encounter Summary ---
Author Organization [facility] Address [address] [place] [address] Care Team Providers Care Pipe Line Inspector Name Role Phone Modesto Reyez DO Primary Care Provider [phone] Encounter Details Date Type Department Care Team (Late st Contact Info) Description 05/03/2022 Telephone [facility] Cardiology [address] [address] [facility] [address] [place] [address] Myles Reyes MD [address] [facility] [address] [place], [place] [id number] Social History Tobacco Use Types Packs/Day Years Used Date Smoking Tobacco: Never Smokeless Tobacco: Never Alcohol Use Standard Drinks/Week Comments Not Currently 0 (1 standard drink = 0.6 oz pur e alcohol) Comments Unknown Sex and Gender Information Value Date Recorded Sex Assigned at Not on file Legal Sex Female 1:14 AM INSURANCE VERIFIER Gender Identity Female 05/04/2020 3:33 PM CDT Sexual Orientation Not on file 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 Advised pt to cont furosemide 60mg daily for now, to contto monitor weights and call us back after blood work has been drawn with an update on weight, edema, sob ect. Mailing copy of order for BMP. Advised her to callback with any questions or concerns. * Telephone Encounter - Myles Reyes MD - 05/03/2022 2:36 PM CDT That is difficult to answer given the reported history that patient is not compliant with low-sodium diet, skips doses but has lost a significant amount of weight with the increase in Lasix. Therefore I would say she needs to continue on Lasix 60 mg daily would mostly be compliant with recommendations and consistent with medications as discussed at length during the office visit. Need to repeat basic metabolic panel once again and 1-2 weeks. Creatinine 1.3 slightly elevated potassium normal range. Continue medical therapy monitor daily weight. * Telephone Encounter - Maria L Jensen RN - 05/03/2022 9:45 AM CDT Spoke with pt dgt, she reports pt has lost 12 pounds in the last 2 weeks, she still has a little swelling and some SOB with exertion. Pt had her labs drawn- the results are scanned in media. She also notes pt has been having some diarrhea and indigestion at night-she is taking tums and pepcid and isstill vomiting on occasion-advised her to contact PCP regarding this. She notes pt is not complyingwith a low salt diet and has been eating crackers and pretzels-she is going grocery shopping for [employer] to try and assist with lower sodium foods- dgt is aware of the need of a low sodium diet. Pt is still currently taking furosemide 60mg daily. Dgt noted that some days pt doesn't feel like getting up and going to the bathroom a lot so she will skip a dose here and there. Dgt is asking if she needs to remain on the 60mg dose? Will forward to AD Please advise, thank you! * Telephone Encounter - Charli Nye - 05/03/2022 8:43 AM CDT Pt daughter Mae called requesting lab results from 2 weeks ago, also has concerns about water pill dosage. Also wants to inform AD of pt having indigestion and diarrhea asked if contacted pcp states no because AD is who pt seen last.Please advise.Thank you Contact:[phone] documented in this encounter Plan of Treatment Scheduled Orders Name Type Priority Associated Diagnoses Orde r Schedule Basic metabolic panel Lab Routine Chronic heart failure with preserved ejection fraction (CMS/HCC) (HCC) Expected: 05/03/2022, Expires: 05/03/2023 documented as of this encounter Visit Diagnoses Diagnosis Chronic heart failure with preserved ejection fraction (CMS/HCC) (HCC)- Primary documented in this encounter Care Teams Pipe Line Inspector Relationship Specialty Start Date End Date Modesto Reyez DO PCP - General Internal Medicine 01/03/20 01/13/23 documented as of this encounter
--- OUTSIDE RECORDS SUMMARY | 2024-11-15 05:59 | XMS_ITS | Encounter Summary ---
Author Organization [facility] Address [address] [place] [address] Care Team Providers Care Balance Sheet Analyst Name Role Phone Modesto Reyez DO Primary Care Provider [phone] Encounter Details Date Type Department Care Team (Late st Contact Info) Description 01/29/2020 Orders Only [facility] Cardiology [address] [place] [id number] Layne Santillan, SHIFT COMMANDER [address] [place] [address] Social History Tobacco Use Types Packs/Day Years Used Date Smoking Tobacco: Never Assessed Comments Unknown Sex and Gender Information Value Date Recorded Sex Assigned at Not on file Legal Sex Female 1: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 CHOPPER Gender Identity Female 05/04/2020 3:33 PM CDT Sexual Orientation Not on file documented as of this encounter Plan of Treatment Not on file documented as of this encounter Procedures Procedure Name Priority Date/Time Associated Diagnosis Comments CARDIOLOGY DOCUMENT SCAN Routine 01/29/2020 documented in this encounter Results * SCAN - CARDIOLOGY (01/29/2020) Anatomical Region Laterality Modality Other Layne Santillan SHIFT COMMANDER CV CARDIAC SERVICES PROCEDURES F inal Result documented in this encounter Visit Diagnoses Not on filedocumented in this encounter Care Teams Balance Sheet Analyst Relationship Specialty Start Date End Date Modesto Reyez DO PCP - General Internal Medicine 01/03/20 01/13/23 documented as of this encounter
--- OUTSIDE RECORDS SUMMARY | 2024-11-15 05:59 | XMS_ITS | Encounter Summary ---
Author Organization [facility] Address [address] [facility] [address] [place] [address] Care Team Providers Care Culled Fruit Packer Name Role Phone Modesto Reyez Primary Care Provider [phone] Encounter Details Date Type Department Care Team (Late st Contact Info) Description 04/13/2020 Telephone [facility] Cardiology [address] [facility] [address] [place] [address] Myles Reyes MD [address] [facility] [address] [place] [address] Social History Tobacco Use Types Packs/Day Years Used Date Smoking Tobacco: Never Smokeless Tobacco: Never Alcohol Use Standard Drinks/Week Comments Not Currently 0 (1 standard drink = 0.6 oz pur e alcohol) Comments Unknown Sex and Gender Information Value Date Recorded Sex Assigned at Not on file 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 But make sure she continues to try to drink her 2 L of fluid daily (she had problems with MIKE due to dehydration earlier this year). She will need to get a BMP in two weeks. Thank you. Pt wanted a 20mg tablet called in because she said its a hassle to break the 40mg tablets in half. I called in 20mg tablet daily. She knows to take the 20mg tablet in the evening. Pt knows to get herlabs done in 1 week. Pt knows to continue drinking 2L of fluid daily and that her labs are to checkon her kidneys. Pt verablized understanding and wll pick her prescription up from the pharmacy and call us with any other concerns. * Telephone Encounter - Анна Rosales - 04/13/2020 9:41 AM CDT Pt's daughter called very upset about pt lasix 40 mg refill order sent to the pharm was wrong. Pt'sdaughter report pt has severe pain in both legs and pt not able to walk. documented in this encounter Plan of Treatment Not on file documented as of this encounter Visit Diagnoses Not on filedocumented in this encounter Care Teams Culled Fruit Packer Relationship Specialty Start Date End Date Modesto Reyez DO PCP - General Internal Medicine 01/03/20 01/13/23 documented as of this encounter
--- OUTSIDE RECORDS SUMMARY | 2024-11-15 05:59 | XMS_ITS | Encounter Summary ---
Author Organization [facility] Address [address] [place] [address] Care Team Providers Care Software Product Manager Name Role Phone Modesto Reyez DO Primary Care Provider [phone] Encounter Details Date Type Department Care Team (Latest Contact Info) Description 06/22/2021 8:05 AM CDT - 06/22/2021 8:08 AM CDT Hospital Encounter [facility] [address] [place] [id number] Discharge Disposition: Discharge to home or self care Social History Tobacco Use Types Packs/Day Years Used Date Smoking Tobacco: Never Smokeless Tobacco: Never Alcohol Use Standard Drinks/Week Comments Not Currently 0 (1 standard drink = 0.6 oz pur e alcohol) Comments Unknown Sex and Gender Information Value Date Recorded Sex Assigned at Not on file Legal Sex Female 1:14 AM SERVICE COORDINATOR ELDERLY FACILITY Gender Identity Female 05/04/2020 3:33 PM CDT Sexual Orientation Not on file documented as of this encounter Medications at Time of Discharge calcium carbonate-vit D3-min 600 mg calcium- 400 unit tablet Take by mouth 2 (two) times a day cholecalciferol (VITAMIN D-3) 2000 unit tablet Take 0.5 tablets (1,000 Units total) by mouth daily Eliquis 5 mg [...] tablet TAKE 1 TABLET(100 MG) BY MOUTH DIRECT CARE WORKER BEFORE BREAKFAST 90 tablet 3 05/18/2021 2 metoprolol XL (TOPROL-XL) 25 mg extended release tablet TAKE 1 TABLET(25 MG) BY MOUTH DAILY 90 tablet 3 05/18/2021 2 potassium chloride ER (KLOR-CON) 10 mEq CR tablet Take 10 mEq by mouth daily 2 warfarin (COUMADIN) 6 mg tablet Take 6 mg by mouth daily 02/02/2020 1 documented as of this encounter Discharge Disposition Disposition Code Departure Means Destination Discharge to home or self care documented in this encounter Plan of Treatment Not on file documented as of this encounter Procedures Procedure Name Priority Date/Time Associated Diagnosis Comments CT BODY OUTSIDE REFERENCE Routine 06/22/2021 8:05 AM CDT Diagnosis unknown documented in this encounter Results * CT Body Outside Reference (06/22/2021 8:05 AM CDT) Impressions [facility] - 06/22/2021 8:05 AM CDT These images are for Reference purposes only and have not been reviewed by [facility] Radiology. ??There will be no report generated by a [facility] Radiologist. Narrative [facility] - 06/22/2021 8:05 AM CDT EXAMINATION: ??Images For Reference Purposes Only us Denita Correa MD IMG CT PROCEDURES Final Resu lt [facility]_P[facility] documented in this encounter Visit Diagnoses Not on filedocumented in this encounter Care Teams Software Product Manager Relationship Specialty Start Date End Date Modesto Reyez DO PCP - General Internal Medicine 01/03/20 01/13/23 documented as of this encounter
--- OUTSIDE RECORDS SUMMARY | 2024-11-15 05:59 | XMS_ITS | Encounter Summary ---
Author Organization [facility] Address [address] [place] [address] Care Team Providers Care Extension Service Specialist In Charge Name Role Phone Modesto Reyez DO Primary Care Provider [phone] Encounter Details Date Type Department Care Team (Late st Contact Info) Description 04/04/2020 Telephone [facility] Cardiology [address] [facility] [address] [place] [address] Myles Reyes MD [address] [facility] [address] [place] [address] Social History Tobacco Use Types Packs/Day Years Used Date Smoking Tobacco: Never Smokeless Tobacco: Never Alcohol Use Standard Drinks/Week Comments Not Currently 0 (1 standard drink = 0.6 oz pur e alcohol) Comments Unknown Sex and Gender Information Value Date Recorded Sex Assigned at Not on file Legal Sex Female 1:14 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 Pt verbalized understanding. She says she has been very diligent in drinking 2L of fluid a day and keeping her sodium intake to under 2000mg/day. Mailingpt order for BMP in 2 weeks. * Telephone Encounter - Yolanda Soto NP - 04/04/2020 9:55 AM CDT Let us increase her furosemide to 40 mg in the morning and 20 mg in the afternoon. But make sure she continues to try to drink her 2 L of fluid daily (she had problems with MIKE due to dehydration earlier this year). She will need to get a BMP in two weeks. Thank you. * Telephone Encounter - Maria L Jensen, BILLY - 04/04/2020 9:44 AM CDT Pt called with concerns about her weight gain and legs swelling today. She said she was instructed when she left the hospital to let us know. Pt said her weight today was 265.4, she has been 263, 260, 262 the last few days. She said her legs are starting to swell again also. She denies SOB and CP. Pt has been taking her furosemide 40mg daily as prescribed and wonders if it needs to be increased? Will forward to CT Please advise, thank you! * Telephone Encounter - Nicole Parr - 04/04/2020 8:59 AM CDT Pt has requested a return call to discuss her recent weight gain and swelling of her legs. [phone] documented in this encounter Plan of Treatment Scheduled Orders Name Type Priority Associated Diagnoses Orde r Schedule Basic metabolic panel Lab Routine Congestive heart failure, unspecified HF chronicity, unspecified heart failure type (CMS/HCC) Expected: 04/04/2020, Expires: 04/04/2021 documented as of this encounter Visit Diagnoses Diagnosis Congestive heart failure, unspecified HF chronicity, unspecified heart failure type (HCC)- Primary documented in this encounter Care Teams Extension Service Specialist In Charge Relationship Specialty Start Date End Date Modesto Reyez DO PCP - General Internal Medicine 01/03/20 01/13/23 documented as of this encounter
--- OUTSIDE RECORDS SUMMARY | 2024-11-15 05:59 | XMS_ITS | Encounter Summary ---
Author Organization [facility] Address [address] [facility] [address] [place] [address] Phone Care Team Providers Care Felt Finishing Supervisor Name Role Phone Modesto Reyez DO Primary Care Provider [phone] Reason for Referral * Diagnostic Imaging (Routine) - Closed Specialty Diagnoses / Procedures Referred By Contac t Referred To Contact Diagnoses ILD (interstitial lung disease) (CMS/HCC) ([facility]) Procedures XR Chest Pa Lateral 2 Views Denita Correa MD [address] [place] [address] Phone: tel: fax: [address] [address] Referral ID Status Reason Start Date Expiration Date Visits Re quested Visits Authorized [id number] Closed 06/07/2021 07/07/2022 1 1 * (Routine) - Closed Specialty Diagnoses / Procedures Referred By Contac t Referred To Contact Diagnoses ILD (interstitial lung disease) (CMS/HCC) ([facility]) Procedures Pulmonary Function Test -[facility] Adult PFT Lab- [facility]; Spirometry with Bronchodilator, Spirometry, Oxygen Assessment Titration, ABG, DLCO, Lung Volumes; Pleth with Airway Resistance; Room Air ABG; Spirometry Denita Correa MD [address] [place] [address] Phone: tel: fax: Referral ID Status Reason Start Date Expiration Date Visits Re quested Visits Authorized [id number] Closed 06/07/2021 07/07/2022 1 1 Encounter Details Date Type Department Care Team (Late st Contact Info) Description 06/07/2021 Orders Only [facility] Pulmonary [address] [facility] [address] [place] [address] [place] [address] Gwendolyn Bunch, DEJA ILD (interstitial lung disease) (CMS/HCC) (HCC) (Primary Dx) Social History Tobacco Use Types Packs/Day Years Used Date Smoking Tobacco: Never Smokeless Tobacco: Never Alcohol Use Standard Drinks/Week Comments Not Currently 0 (1 standard drink = 0.6 oz pur e alcohol) Comments Unknown Sex and Gender Information Value Date Recorded Sex Assigned at Not on file Legal Sex Female 1:14 AM HEEL ATTACHER WOOD Gender Identity Female 05/04/2020 3:33 PM CDT Sexual Orientation Not on file documented as of this encounter Plan of Treatment Not on file documented as of this encounter Results * XR Chest Pa Lateral 2 Views (11/03/2021 8:21 AM HEEL ATTACHER WOOD) Anatomical Region Laterality Modality Body, Chest N/A Computed Radiogr aphy 11/03/2021 8:32 AM HEEL ATTACHER WOOD Impressions 11/03/2021 8:32 AM HEEL ATTACHER WOOD Comparison made to the outside CT examination of 01/02/2020 Diffuse bilateral interstitial opacities consistent with chronic interstitial disease are noted. There is no pleural effusion or pneumothorax. Heart size and mediastinal contours within normal limits. Electronically signed by: Rema Gorman M.D. Narrative 11/03/2021 8:32 AM HEEL ATTACHER WOOD EXAMINATION: 2 view chest radiograph Procedure Note Rema Gorman MD - 11/03/2021 EXAMINATION: 2 view chest radiograph IMPRESSION: Comparison made to the outside CT examination of 01/02/2020 Diffuse bilateral interstitial opacities consistent with chronic interstitial disease are noted. There is no pleural effusion or pneumothorax. Heart size and mediastinal contours within normal limits. Electronically signed by: Rema Gorman M.D. us Denita Correa MD IMG XR PROCEDURES Final Resu lt * Pulmonary Function Test - (11/03/2021 8:06 AM HEEL ATTACHER WOOD) FVC PRE 1.22 L [facility] FVC %PRE PRED 47 % [facility] FVC POST 1.34 L [facility] FVC %POST PRED 52 % [facility] FEV1 PRE 1.11 L [facility] FEV1 %PRE PRED 56 % [facility] FEV1 POST 1.21 L [facility] FEV1 %POST PRED 61 % [facility] FEV1/FVC PRE 91.0 % [facility] FEV1/FVC POST 90.3 % [facility] FRC PL PRE 1.48 L [facility] FRC PL %PRE PRED 54 % [facility] RV PRE 1.29 L [facility] RV %PRE PRED 60 % [facility] TLC PRE 2.63 L [facility] TLC %PRE PRED 55 % [facility] DLCO PRE 8.1 ml/min/mmH g [facility] DLCO %PRE PRED 45 % [facility] FIO2 % 21.00 % [facility] PaO2 81.0 mmHg [facility] PaCO2 41.0 mmHg [facility] pH 7.44 [facility] A-aDO2 POC 17.0 mmHg [facility] METHGB % 1.4 % [facility] COHb POC 2.7 % [facility] HCO3 27.8 mEq/L [facility] Anatomical Region Laterality Modality PFT 11/03/2021 7:23 AM HEEL ATTACHER WOOD Narrative 11/08/2021 1:00 PM HEEL ATTACHER WOOD [facility] Division of Pulmonary & Critical Care Medicine [address] [place] [address]; [address] [facility]; [place], [place] [address]; [phone] Pulmonary Function Laboratory Pulmonary Stress Test Simple/Oxygen Assessment Patient: Ayanna Cash Date: 11/03/2021 Physician: EMERSON Ht: 60 ?? Wt: 249 Room: OP Ready To Wear Department Manager: DUSTY : 1950 Diagnosis: ILD Time(min) Distance [...] with the written final report. PFT performed at:->[facility] Adult PFT Lab- [facility] Procedure:->Spirometry with Bronchodilator Procedure:->Spirometry Procedure:->Oxygen Assessment Titration Procedure:->ABG Procedure:->DLCO Procedure:->Lung Volumes Lung Volumes via:->Pleth with Airway Resistance ABG:->Room Air ABG DLCO:->Spirometry Denita Correa MD PFT ORDERABLES Final Result documented in this encounter Visit Diagnoses Diagnosis ILD (interstitial lung disease) (CMS/HCC) (HCC)- Primary Postinflammatory pulmonary fibrosis ILD (interstitial lung disease) (CMS/HCC) (HCC) Postinflammatory pulmonary fibrosis ILD (interstitial lung disease) (CMS/HCC) (HCC) Postinflammatory pulmonary fibrosis documented in this encounter Care Teams Felt Finishing Supervisor Relationship Specialty Start Date End Date Modesto Reyez DO PCP - General Internal Medicine 01/03/20 01/13/23 documented as of this encounter
--- OUTSIDE RECORDS SUMMARY | 2024-11-15 05:59 | XMS_ITS | Encounter Summary ---
Author Organization [facility] Address [address] [place] [address] Care Team Providers Care Analytical Strategist Name Role Phone Modesto Reyez Primary Care Provider [phone] Reason for Visit * Reason Comments Follow-up 3 mo follow up on a- fib, HF Encounter Details Date Type Department Care Team (Late st Contact Info) Description 05/05/2020 8:45 AM CDT Office Visit [facility] Cardiology [address] [place] [address] Myles Reyes MD [address] [place] [address] Atrial fibrillation (CMS/HCC) (Primary Dx); Chronic anticoagulation; Chronic diastolic heart failure (CMS/HCC); Rheumatoid arthritis, involving unspecified site, unspecified rheumatoid factor presence (CMS/HCC); Morbid obesity with BMI of 45.0-49.9, adult (CMS/HCC) Social History Tobacco Use Types Packs/Day Years Used Date Smoking Tobacco: Never Smokeless Tobacco: Never Alcohol Use Standard Drinks/Week Comments Not Currently 0 (1 standard drink = 0.6 oz pur e alcohol) Comments Unknown Sex and Gender Information Value Date Recorded Sex Assigned at Not on file Legal Sex Female 1:14 AM MOLD CLEANER Gender Identity Female 05/04/2020 3:33 PM CDT Sexual Orientation Not on file documented as of this encounter Last Filed Vital Signs Vital Sign Reading Time Taken Comments Blood Pressure 130/74 05/05/2020 8:41 AM CDT Pulse 73 05/05/2020 8:41 AM CDT Temperature - - Respiratory Rate - - Oxygen Saturation 97% 05/05/2020 8:41 AM CDT Inhaled Oxygen Concentration - - Weight 118.8 kg (262 lb) 05/05/2020 8:41 AM CDT Height 157.5 cm (5' 2 ) 05/05/2020 8:41 AM CDT Body Mass Index 47.92 05/05/2020 8:41 AM CDT documented in this encounter Progress Notes * Myles Reyes MD - 05/05/2020 8:45 AM CDT [facility] DATE OF VISIT: 05/05/2020 CHIEF COMPLAINT Chief Complaint Patient presents with ??? Follow-up 3 mo follow up on a-fib, HF ASSESSMENT Diagnoses and all orders for this visit: Atrial fibrillation (CMS/HCC) (Primary) Chronic anticoagulation Chronic diastolic heart failure (CMS/HCC) Rheumatoid arthritis, involving unspecified site, unspecified rheumatoid factor presence (CMS/HCC) Morbid obesity with BMI of 45.0-49.9, adult (CMS/HCC) PLAN/RECOMMENDATIONS 1. AFib persistent, heart rate controlled. Stable, A. Fib controlled. Continue current medical therapy and systemic anticoagulation for stroke risk reduction. CHADS2 Vasc score 3. -Continue warfarin goal INR 2-3. Must comply with Monthly INR checks or as directed, monitor for bleeding. If significant falls, bleeding or head injury go to ER immediately. -caution with ambulation to avoid falls and injuries/bleeding. 2. BP improved on repeat check in the office. Monitor BP on routine basis. Call with readings. Continue consistent cardiovascular exercise, weight loss, medication compliance, and low-sodium diet. 3. Heart failure preserved ejection fraction. Reasonably compensated NYHA class III sxs. CHF counseling performed. Follow daily weight, less than 2 g daily sodium intake, medication compliance. Call w/ wt gain >3lb in 24 hrs or worsening edema and/or FALCON. -continue current diuretic regimen. Patient noted no improvement with increase and does not wish tomake a change at this time due to frequent urination. Her weight is stable and in fact decreased, edema remains fairly mild. Leg pain and decreased mobility appears to be secondary to uncontrolled arthritic pain. Strongly encouraged to contact her clinical phlebotomist with regards to management. 4. Creatinine 1.2. Unchanged with increase Lasix overall. Continue to monitor renal function. 5. Compliance with medications, recommendations follow-up once again extensively reviewed with patient and her daughter. They both verbalized understanding and agreed. Counseled extensively on importance with continue activity, dietary, sodium and fluid restriction as counseled. 6. Continue Toprol XL 125 mg daily. Twelve lead EKG atrial fibrillation controlled heart rate 67 beats per minute PVCs, nonspecific IVCD QRS 118 milliseconds QT corrected 462 milliseconds Over 50% of this visit counseling CHF, HTN, lipids, medications, lifestyle modification. Follow up in the office in 2 months or sooner as needed. Thank you for allowing me the privilege of participating in the care this very pleasant patient. Please do not hesitate to contact me with any additional questions or concerns. NIRANJAN Cash is a 70 y.o. female with a PMHx of rheumatoid arthritis, hypertension, hyperlipidemia, morbid obesity, STARR, diastolic heart failure, atrial fibrillation, and interstitial lung disease. She was on amiodarone and digoxin in the past , she had also had a successful cardioversion in the past. [place] in September 2019 showed EF 60%. She was previously followed by Dr. Parker. Her emergency medical technician is Dr. Norman. Her clinical phlebotomist is Dr. Kobe Gerard. She presented to [facility] on 01/01/2020 with complaint of worsening shortness [...] CPAP machine nightly, but sometimes remove sit mcc through the night. PCP follows her INRs [...] frequent naps during day and not using. MEDICAL HISTORY Past Medical History: Diagnosis Date ??? Arthritis ??? Atrial fibrillation (CMS/HCC) ??? Cataracts, bilateral ??? CHF (congestive heart failure) (CMS/HCC) ??? Diastolic dysfunction ??? Diverticulitis ??? H/O section ??? Heart failure (CMS/HCC) ??? Hypertension ??? Obesity ??? Sleep apnea [...] tablet cholecalciferol (Vitamin D3) 2000 unit tablet cyanocobalamin 2,000 mcg tablet folic acid (FOLVITE) 1 mg tablet furosemide (LASIX) 40 mg tablet hydroxychloroquine (PLAQUENIL) 200 mg tablet levothyroxine (SYNTHROID) 112 mcg tablet methotrexate 2.5 mg tablet metoprolol XL (TOPROL-XL) 100 mg 24 hr tablet metoprolol XL (TOPROL-XL) 25 mg extended release tablet potassium chloride ER (potassium chloride ER) 10 mEq CR tablet pravastatin (PRAVACHOL) 80 mg tablet warfarin (COUMADIN) 6 mg tablet furosemide (LASIX) 20 mg tablet traZODone (DESYREL) 50 mg tablet ALLERGIES No Known Allergies REVIEW OF SYSTEMS Review of Systems Constitution: Positive for malaise/fatigue and weight loss. Negative [...] rash and suspicious lesions. Musculoskeletal: Positive for arthritis and joint pain. Negative for falls, muscle weakness and myalgias. Gastrointestinal: Negative for abdominal pain, heartburn, hematemesis, melena and nausea. Genitourinary: Negative for dysuria, hematuria and nocturia. Neurological: Negative for excessive daytime sleepiness, dizziness, focal weakness, headaches, light-headedness, loss of balance and weakness. Psychiatric/Behavioral: Negative for altered mental status, depression and memory loss. The patientis not nervous/anxious. Allergic/Immunologic: Negative for environmental allergies. PHYSICAL EXAM Vitals BP 130/74 (BP Location: Right arm, Patient Position: Sitting) Pulse 73 Ht 157.5 cm (5' 2 ) Wt 118.8 kg (262 lb) SpO2 97% BMI 47.92 kg/m?? Weight: 118.8 kg (262 lb) Height: 157.5 cm (5' 2 ) Body mass index is 47.92 kg/m??. Physical Exam Constitutional: She is oriented to person, place, and time. She appears well- developed and well-nourished. She is cooperative. No distress. HENT: Head: Normocephalic and atraumatic. Right Ear: External ear normal. Left Ear: External ear normal. Mouth/Throat: Mucous membranes are normal. Normal dentition. O2 via nasal canula Eyes: Conjunctivae, EOM and lids are normal. No scleral icterus. Neck: Normal range of motion. Neck supple. Normal carotid pulses, no hepatojugular reflux and no JVD present. Carotid bruit is not present. No tracheal deviation present. No thyromegaly present. Cardiovascular: Normal rate, regular rhythm, S1 normal, S2 normal, normal heart sounds, intact distal pulses and normal pulses. Exam reveals no gallop, no S3, no S4, no distant heart sounds and no friction rub. No murmur heard. Pulmonary/Chest: Effort normal and breath sounds normal. No respiratory distress. She has no wheezes. She has no rales. She exhibits no tenderness. Abdominal: Soft. Bowel sounds are normal. She exhibits no distension and no mass. There is no abdominal tenderness. There is no rebound and no guarding. Morbidly obese Musculoskeletal: Normal range of motion. General: Edema present. No tenderness or deformity. Comments: 1+ edema bilateral Lymphadenopathy: She has no cervical adenopathy. Neurological: She is alert and oriented to person, place, and time. No cranial nerve deficit. She exhibits normal muscle tone. Coordination normal. Skin: Skin is warm and dry. No ecchymosis, no petechiae and no rash noted. She is not diaphoretic. No cyanosis or erythema. No pallor. Nails show no clubbing. Psychiatric: She has a normal mood and affect. Her speech is normal and behavior is normal. Judgment normal. LABS AND OTHER DIAGNOSTIC TESTS Results for orders placed or performed in visit on 02/09/20 POCT lipid panel Result Value Ref Range Cholesterol, POC 166 mg/dL HDL, POC 78 mg/dL Triglycerides, POC 112 mg/dL LDL, Direct, POC 65 mg/dL Chol/HDL Ratio, POC 2.1 Non-HDL Cholesterol, POC 88 mg/dL Cholesterol Total, POC 166 mg/dL Personally reviewed EKG, electronic medical record, [facility] records, and bloodwork/lipids. Geetha Reyes MD, [facility] This note is dictated and transcribed using HAL[employer] Direct Software. Telegraph Installer variancesmay occur. Despite proofreading, typographical errors may occur. documented in this encounter Miscellaneous Notes * Addendum Note - Samara Leyva MA - 05/05/2020 8:45 AM CDTAddended by: SAMARA LEYVA on: 05/11/2020 11:31 AM Modules accepted: Orders documented in this encounter Plan of Treatment Not on file documented as of this encounter Procedures Procedure Name Priority Date/Time Associated Diagnosis Comments ECG 12-LEAD Routine 05/05/2020 Atrial fibrillation ([facility]/HCC) documented in this encounter Results * ECG 12 lead (05/05/2020) Myles Reyes MD ECG ORDERABLES Final Re sult documented in this encounter Visit Diagnoses Diagnosis Atrial fibrillation (CMS/HCC) (HCC)- Primary Atrial fibrillation Chronic anticoagulation Encounter for long-term (current) use of anticoagulants Chronic diastolic heart failure (HCC) Chronic diastolic heart failure Rheumatoid arthritis, involving unspecified site, unspecified rheumatoid factor presence Morbid obesity with BMI of 45.0-49.9, adult ([facility]) documented in this encounter Discontinued Medications Medication Sig Discontinue Reason Start Date End Da te traZODone (DESYREL) 50 mg tablet Take 100 mg by mouth nightly Therapy completed 12/25/2019 05/05/2020 furosemide (LASIX) 20 mg tablet Take 1 tablet (20 mg total) by mouth daily Therapy completed 04/13/2020 05/05/2020 documented as of this encounter Historical Medications * This list may reflect changes made after this encounter. calcium carbonate-vit D3-min 600 mg calcium- 400 unit tablet Take by mouth 2 (two) times a day metoprolol XL (TOPROL-XL) 25 mg extended release tablet Take 25 mg by mouth daily 05/31/2020 added in this encounter Care Teams Analytical Strategist Relationship Specialty Start Date End Date Modesto Reyez DO PCP - General Internal Medicine 01/03/20 01/13/23 documented as of this encounter
--- OUTSIDE RECORDS SUMMARY | 2024-11-15 05:59 | XMS_ITS | Encounter Summary ---
Author Organization [facility] Address [address] [place] [address] Care Team Providers Care Director Of Category Management Name Role Phone Modesto Reyez DO Primary Care Provider [phone] Encounter Details Date Type Department Care Team (Late st Contact Info) Description 01/27/[address] [facility] Cardiology [address] [address], [place] [id number] [place] [address] [place] [address] [address] [place] [address] Social History Tobacco Use Types Packs/Day Years Used Date Smoking Tobacco: Never Assessed Comments Unknown Sex and Gender Information Value Date Recorded Sex Assigned at Not on file Legal Sex Female 1:14 AM CIGAR MAKER Gender Identity Female 05/04/2020 3:33 PM CDT Sexual Orientation Not on file COVID-19 Exposure Response Date Recorded In the last month, have you been in contact with someone who was confirmed or suspected to have Coronavirus / COVID-19? No / Unsure 02/09/2020 1:38 PM CDT documented as of this encounter Miscellaneous Notes * Telephone Encounter - Noa Licona RN - 01/27/2020 11:47 AM CIGAR MAKER ZULY Tillman notified. R MAKER * Telephone Encounter - Alysha Mejias RN - 01/27/2020 11:40 AM CIGAR MAKER Forwarded to Glenn RN. R MAKER * Telephone Encounter - Nicole Parr - 01/27/2020 10:19 AM CST Pt daughter called to report that the pt is now in the [place] [facility]. Pt daughter report that her B/Pis 81/52. [phone] R MAKER documented in this encounter Plan of Treatment Not on file documented as of this encounter Visit Diagnoses Not on filedocumented in this encounter Care Teams Director Of Category Management Relationship Specialty Start Date End Date Modesto Reyez DO PCP - General Internal Medicine 01/03/20 01/13/23 documented as of this encounter
--- OUTSIDE RECORDS SUMMARY | 2024-11-15 05:59 | XMS_ITS | Encounter Summary ---
Author Organization [facility] Address [address] [place] [address] Phone Care Team Providers Care Lawn Service Worker Name Role Phone Modesto Reyez Primary Care Provider [phone] Ni Armas RN Unavailable Lizette Liliana Prakash MD Primary Care Provider [phone] Timothy Donis MD Primary Care Provider [phone] Encounter Details Date Type Department Care Team (Latest Contact Info) Description 09/21/2021 Orders Only [facility] Scanning, Provider Social History Tobacco Use Types Packs/Day Years Used Date Smoking Tobacco: Never Smokeless Tobacco: Never Alcohol Use Standard Drinks/Week Comments Not Currently 0 (1 standard drink = 0.6 oz pur e alcohol) Comments Unknown Sex and Gender Information Value Date Recorded Sex Assigned at Not on file Legal Sex Female 1:14 AM SOLAR PANEL INSTALLATION SUPERVISOR Gender Identity Female 05/04/2020 3:33 PM CDT Sexual Orientation Not on file documented as of this encounter Plan of Treatment Not on file documented as of this encounter Procedures Procedure Name Priority Date/Time Associated Diagnosis Comments SCAN - RADIOLOGY/IMAGING 09/21/2021 documented in this encounter Results * SCAN - RADIOLOGY/IMAGING (09/21/2021) Anatomical Region Laterality Modality Other us Provider [...] the result is from a facility outside [facility] . 05/22/2022 05/27/2022 06/17/2022 3:05 AM CDT COVID: Recovered Comment:Added based on recent COVID infection. 06/17/2022 06/18/2022 10/15/2022 3:[address] documented as of this encounter Care Teams Lawn Service Worker Relationship Specialty Start Date End Date Modesto Reyez DO PCP - General Internal Medicine 01/03/20 01/13/23 Liliana Baron MD PCP - General Internal Medicine 01/14/23 04/11/23 Timothy Donis MD PCP - General Family Practice 04/12/23 Ni Armas, BILLY Registered Nurse Pulmonary Disease 01/11/23 documented as of this encounter
--- OUTSIDE RECORDS SUMMARY | 2024-11-15 05:59 | XMS_ITS | Encounter Summary ---
Author Organization [facility] Address [address] [place] [address] Care Team Providers Care Lodge Attendant Name Role Phone Modesto Reyez Primary Care Provider [phone] Encounter Details Date Type Department Care Team (Late st Contact Info) Description 10/24/2020 Telephone [facility] Cardiology [address] [place] [address] Myles Reyes MD [address] [place] [address] Social History Tobacco Use Types Packs/Day Years Used Date Smoking Tobacco: Never Smokeless Tobacco: Never Alcohol Use Standard Drinks/Week Comments Not Currently 0 (1 standard drink = 0.6 oz pur e alcohol) Comments Unknown Sex and Gender Information Value Date Recorded Sex Assigned at Not on file Legal Sex Female 1:14 AM LAST GREASER Gender Identity Female 05/04/2020 3:33 PM CDT Sexual Orientation Not on file documented as of this encounter Miscellaneous Notes * Telephone Encounter - Maria L Jensen RN - 10/24/2020 10:34 AM LAST GREASER Pts dgt called to report that she has lost 8 pounds. Pt took the extra dose of furosemide on Wed, Th, and Fri and then returned back to her normal dose. Dgt asked if pt can just increase her furosemide on her own in the future if she needs to and I advised her against that but to rather call theoffice to discuss. Reviewed instructions with dgt about a low sodium diet, monitoring her weight and when to notify us. Dgt verbalized understanding and appreciated the time. GREASER * Telephone Encounter - Анна Rosales - 10/24/2020 8:36 AM CST Pt's daughter called to speak with Maria L RN> GREASER documented in this encounter Plan of Treatment Not on file documented as of this encounter Visit Diagnoses Not on filedocumented in this encounter Care Teams Lodge Attendant Relationship Specialty Start Date End Date Modesto Reyez DO PCP - General Internal Medicine 01/03/20 01/13/23 documented as of this encounter
--- OUTSIDE RECORDS SUMMARY | 2024-11-15 05:59 | XMS_ITS | Encounter Summary ---
Author Organization [facility] Address [address] [place] [address] Care Team Providers Care Polisher Sand Name Role Phone Modesto Reyez DO Primary Care Provider [phone] Encounter Details Date Type Department Care Team (Late st Contact Info) Description 02/02/2020 Orders Only [facility] Cardiology [address] [place] [id number] Layne Santillan, LABORATORY SAMPLER [address] [place] [address] Social History Tobacco Use Types Packs/Day Years Used Date Smoking Tobacco: Never Assessed Comments Unknown Sex and Gender Information Value Date Recorded Sex Assigned at Not on file Legal Sex Female 1:14 AM PUMP TESTER Gender Identity Female 05/04/2020 3:33 PM CDT Sexual Orientation Not on file documented as of this encounter Plan of Treatment Not on file documented as of this encounter Procedures Procedure Name Priority Date/Time Associated Diagnosis Comments CARDIOLOGY DOCUMENT SCAN Routine 02/02/2020 documented in this encounter Results * SCAN - CARDIOLOGY (02/02/2020) Anatomical Region Laterality Modality Other Layne Santillan LABORATORY SAMPLER CV CARDIAC SERVICES PROCEDURES F inal Result documented in this encounter Visit Diagnoses Not on filedocumented in this encounter Care Teams Polisher Sand Relationship Specialty Start Date End Date Modesto Reyez DO PCP - General Internal Medicine 01/03/20 01/13/23 documented as of this encounter
--- OUTSIDE RECORDS SUMMARY | 2024-11-15 05:59 | XMS_ITS | Encounter Summary ---
Author Organization [facility] Address [address] [place] [address] Phone Care Team Providers Care Cooling Machine Operator Name Role Phone Modesto Reyez Primary Care Provider [phone] Ni Armas RN Unavailable Lizette Liliana Prakash MD Primary Care Provider [phone] Timothy Donis MD Primary Care Provider [phone] Encounter Details Date Type Department Care Team (Latest Contact Info) Description 10/02/2021 Orders Only [facility] Scanning, Provider Social History Tobacco Use Types Packs/Day Years Used Date Smoking Tobacco: Never Smokeless Tobacco: Never Alcohol Use Standard Drinks/Week Comments Not Currently 0 (1 standard drink = 0.6 oz pur e alcohol) Comments Unknown Sex and Gender Information Value Date Recorded Sex Assigned at Not on file Legal Sex Female 1:14 AM PRIMARY CLINICIAN Gender Identity Female 05/04/2020 3:33 PM CDT Sexual Orientation Not on file documented as of this encounter Plan of Treatment Not on file documented as of this encounter Procedures Procedure Name Priority Date/Time Associated Diagnosis Comments SCAN - RADIOLOGY/IMAGING 10/01/2021 documented in this encounter Results * SCAN - RADIOLOGY/IMAGING (10/01/2021) Anatomical Region Laterality Modality Other us Provider Scanning Edited Result - Final documented in this [...] the result is from a facility outside [facility] . 05/22/2022 05/27/2022 06/17/2022 3:05 AM CDT COVID: Recovered Comment:Added based on recent COVID infection. 06/17/2022 06/18/2022 10/15/2022 3:[address] documented as of this encounter Care Teams Cooling Machine Operator Relationship Specialty Start Date End Date Modesto Reyez DO PCP - General Internal Medicine 01/03/20 01/13/23 Liliana Baron MD PCP - General Internal Medicine 01/14/23 04/11/23 Timothy Donis MD PCP - General Family Practice 04/12/23 Ni Armas, BILLY Registered Nurse Pulmonary Disease 01/11/23 documented as of this encounter
--- OUTSIDE RECORDS SUMMARY | 2024-11-15 05:59 | XMS_ITS | Encounter Summary ---
Author Organization [facility] Address [address] [place] [address] Care Team Providers Care Mobile Home Park Manager Name Role Phone Modesto Reyez DO Primary Care Provider [phone] Encounter Details Date Type Department Care Team (Late st Contact Info) Description 10/02/2021 Telephone [facility] Cardiology [address] [facility] [address] [place] [address] Yolanda Soto NP [address] [facility] [address] [place] [address] Social History Tobacco Use Types Packs/Day Years Used Date Smoking Tobacco: Never Smokeless Tobacco: Never Alcohol Use Standard Drinks/Week Comments Not Currently 0 (1 standard drink = 0.6 oz pur e alcohol) Comments Unknown Sex and Gender Information Value Date Recorded Sex Assigned at Not on file Legal Sex Female 1:14 AM ORDER ENTRY SPECIALIST Gender Identity Female 05/04/2020 3:33 PM CDT Sexual Orientation Not on file documented as of this encounter Miscellaneous Notes * Telephone Encounter - Maria L Jensen RN - 10/02/2021 10:21 AM ORDER ENTRY SPECIALIST Message sent from CT: Please send a copy of this to both Dr. Norman and Dr. Reyez, along with a copy of my office note. ??Please call pt to let her know the chest CT did not find any blood clots. ??Instead, it showed evidence of pneumonia. ??The radiologist comments that the pattern looks like COVID pneumonia. ??But this is not an accurate way to make that diagnosis. ??It's possible she could have a break through infection of covid (she is vaccinated and had her booster shot about 4 days beforeher current symptoms began) or this could be pneumonia from another cause. ??Let her know we are sending copies to her PCP and to Dr. Norman, and will you please call PCP's office and ask them to bring it to Dr. Reyez's attention today to see if he wants to treat her for pneumonia. ??We will be in touch with her again tomorrow about the results of the echo she is going to have this afternoon. Thank you. Faxed CTA results and OV notes to PCP and [facility]. Called PCP office and spoke with staff-they were going to call pt this morning. Called pt dgt- reviewed message from CT-she was upset and said her momhas been doing worse at home and she desated after walking over the weekend to 68%, she was headed to her house now to check on her. Told her I had just got off the phone with PCP office and they would be calling her soon. Told her we were cancelling the echo for today based on test results and pt still being symptomatic. She verbalized understanding and said PCP office was calling her on the other line now. Pt dgt called to inform us that pt is headed to ED as advised by her PCP. Thanked her for the update and told her I would pass that info onto our hosp provider in case we get consulted. Message sent to CK as FYI. R ENTRY SPECIALIST R ENTRY SPECIALIST documented in this encounter Plan of Treatment Not on file documented as of this encounter Visit Diagnoses Not on filedocumented in this encounter Care Teams Mobile Home Park Manager Relationship Specialty Start Date End Date Modesto Reyez DO PCP - General Internal Medicine 01/03/20 01/13/23 documented as of this encounter
--- OUTSIDE RECORDS SUMMARY | 2024-11-15 05:59 | XMS_ITS | Encounter Summary ---
Author Organization [facility] Address [address] [place] [address] Care Team Providers Care Collar Feller Name Role Phone Modesto Reyez DO Primary Care Provider [phone] Encounter Details Date Type Department Care Team (Late st Contact Info) Description 06/06/2020 Orders Only [facility] Cardiology [address] [facility] [address] [place] [address] Provider, MD Joon [address] [place] [address] Social History Tobacco Use Types Packs/Day Years Used Date Smoking Tobacco: Never Smokeless Tobacco: Never Alcohol Use Standard Drinks/Week Comments Not Currently 0 (1 standard drink = 0.6 oz pur e alcohol) Comments Unknown Sex and Gender Information Value Date Recorded Sex Assigned at Not on file Legal Sex Female 1:14 AM 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 COATER Gender Identity Female 05/04/2020 3:33 PM CDT Sexual Orientation Not on file documented as of this encounter Plan of Treatment Not on file documented as of this encounter Procedures Procedure Name Priority Date/Time Associated Diagnosis Comments CBC WITH AUTO DIFFERENTIAL Routine 06/06/2020 documented in this encounter Results * CBC with auto differential (06/06/2020) Blood specimen (specimen) Historical Provider LAB BLOOD ORDERABLES Tg l Result documented in this encounter Visit Diagnoses Not on filedocumented in this encounter Care Teams Collar Feller Relationship Specialty Start Date End Date Modesto Reyez DO PCP - General Internal Medicine 01/03/20 01/13/23 documented as of this encounter
--- OUTSIDE RECORDS SUMMARY | 2024-11-15 05:59 | XMS_ITS | Encounter Summary ---
Author Organization [facility] Address [address] [place] [address] Care Team Providers Care Assistant Attorney General Name Role Phone Modesto Reyez DO Primary Care Provider [phone] Reason for Visit * Cardiology (Routine) - Closed Specialty Diagnoses / Procedures Referred By Contac t Referred To Contact Diagnoses Paroxysmal atrial fibrillation (CMS/HCC) (HCC) Procedures 48 HR Holter Monitor Yolanda Soto NP [address] [address] Phone: tel: fax: [facility] Referral ID Status Reason Start Date Expiration Date Visits Re quested Visits Authorized [id number] Closed 09/29/2021 10/29/2022 1 1 Encounter Details Date Type Department Care Team (Latest Contact Info) Description 09/29/2021 10:30 AM CDT Ancillary Procedure [facility] Cardiology [address] [facility] [address] [id number] Paroxysmal atrial fibrillation (CMS/HCC) (HCC) Social History Tobacco Use Types Packs/Day Years Used Date Smoking Tobacco: Never Smokeless Tobacco: Never Alcohol Use Standard Drinks/Week Comments Not Currently 0 (1 standard drink = 0.6 oz pur e alcohol) Comments Unknown Sex and Gender Information Value Date Recorded Sex Assigned at Not on file Legal Sex Female 1:14 AM GLUE SIZE MACHINE OPERATOR Gender Identity Female 05/04/2020 3:33 PM CDT Sexual Orientation Not on file documented as of this encounter Plan of Treatment Not on file documented as of this encounter Procedures Procedure Name Priority Date/Time Associated Diagnosis Comments HOLTER MONITOR 48 HR Routine 09/29/2021 3:47 PM CDT Paroxysmal atrial fibrillation (CMS/HCC) (HCC) documented in this encounter Results * 48 HR Holter Monitor (09/29/2021 3:47 PM CDT) Anatomical Region Laterality Modality Other Narrative 10/04/2021 5:19 PM GLUE SIZE MACHINE OPERATOR AMBULATORY FINAL DRESSING CUTTER REPORT Patient Name: Ayanna Cash Date of : 1950 ?? Requesting Physician: ??Dr. Reyes Date of interpretation: 10/04/21 Type of monitor : ??48 hour Holter monitor Date of the study/Enrollment period: ??09/29/2021 Indication: ??Paroxysmal atrial fibrillation Quality of the study: ??Fair with occasional artifact Interpretation: ??Predominant underlying rhythm is sinus rhythm, heart rate ranges between 49 beats per minute to 131 beats per minute, average heart 70 beats per minute. ??Supraventricular ectopy was seen in the form of isolated PACs and atrial runs with a burden of 0.1% for the duration of the study. ??Occasional ventricular ectopy was seen in the form of isolated PVCs, couplets, trigeminy with a burden of 1.07% for the duration of the study. ??No sustained atrial or ventricular arrhythmias were noted. ??No significant bradyarrhythmias or heart blocks or significant pauses were noted. ??Patient's symptoms of shortness of breath correlated with sinus rhythm, atrial run and sinus tachycardia. Conclusions: 1. Predominant underlying rhythm is sinus [...] atrial run. 5. Clinical correlation is recommended. Voice recognition software was used to complete this document, therefore, z os mainframe systems programmer variances may occur. Efrain Rodriguez MD, [facility] 10/04/21 Procedure Note Efrain Rodriguez MD - 10/04/2021 AMBULATORY FINAL DRESSING CUTTER REPORT Patient Name: Ayanna Cash Date of : 1950 Requesting Physician: Dr. Reyes Date of interpretation: 10/04/21 Type of monitor : 48 hour Holter monitor Date of the study/Enrollment period: 09/29/2021 Indication: Paroxysmal atrial fibrillation Quality of the study: Fair with occasional artifact Interpretation: Predominant underlying rhythm is sinus rhythm, heart rateranges between 49 beats per minute to 131 beats per minute, average heart70 beats per minute. Supraventricular ectopy was seen in the form ofisolated PACs and atrial runs with a burden of 0.1% for the duration ofthe study. Occasional ventricular ectopy was seen in the form of isolatedPVCs, couplets, trigeminy with a burden of 1.07% for the duration of thestudy. No sustained atrial or ventricular arrhythmias were noted. Nosignificant bradyarrhythmias or heart blocks or significant pauses werenoted. Patient's symptoms of shortness of breath correlated with sinusrhythm, atrial run and sinus tachycardia. Conclusions: 1. Predominant underlying rhythm is sinus rhythm, average heart rate 70beats per minute. 2. Occasional supraventricular ectopy was seen in the form of PACs, atrialruns with a burden of 0.1% for the duration of the study; occasionalventricular ectopy in the form of PVCs, couplets, trigeminy with a burdenof 1.07%. 3. No other significant arrhythmias or heart blocks were noted. 4. Patient's reported shortness of breath correlated with sinus rhythm,sinus tachycardia, atrial run. 5. Clinical correlation is recommended. Voice recognition software was used to complete this document, therefore,z os mainframe systems programmer variances may occur. Efrain Rodriguez MD, [facility] 10/04/21 Yolanda Soto NP CARDIAC SERVICES [facility] Final Result documented in this encounter Visit Diagnoses Diagnosis Paroxysmal atrial fibrillation (CMS/HCC) (HCC) Atrial fibrillation documented in this encounter Care Teams Assistant Attorney General Relationship Specialty Start Date End Date Modesto Reyez DO PCP - General Internal Medicine 01/03/20 01/13/23 documented as of this encounter
--- OUTSIDE RECORDS SUMMARY | 2024-11-15 05:59 | XMS_ITS | Encounter Summary ---
Author Organization [facility] Address [address] [place] [address] Care Team Providers Care Cloth Finisher Name Role Phone Modesto Reyez DO Primary Care Provider [phone] Encounter Details Date Type Department Care Team (Late st Contact Info) Description 09/25/2021 Telephone [facility] Cardiology [address] [facility] [address] [place] [address] Myles Reyes MD [address] [facility] [address] [place] [address] Social History Tobacco Use Types Packs/Day Years Used Date Smoking Tobacco: Never Smokeless Tobacco: Never Alcohol Use Standard Drinks/Week Comments Not Currently 0 (1 standard drink = 0.6 oz pur e alcohol) Comments Unknown Sex and Gender Information Value Date Recorded Sex Assigned at Not on file 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 * Telephone Encounter - Yolanda Soto NP - 09/25/2021 2:16 PM CDT Alice, Please refer to Maria L's note below - please request [facility] ER record from Ms. Cash's visit last week. Thank you. * Telephone Encounter - Maria L Jensen RN - 09/25/2021 1:40 PM CDT Spoke with pt dgt-they went to the ED last week and was told she was in CHF, she said they didn't mention if she was in afib or not. Pt was treated with IV lasix and steroids and sent home 4 hours later-dgt doesn't think they sent her home on any lasix. Pt was told to follow up with our office. Pt has also been talking with Dr. Norman's office in regards to pt O2-pt is currently on 4 L at home. Ptis fine at rest with HR 78 today but dgt said when she starts moving her HR goes to the 110's. Pt does have some swelling in her ankles but the dgt says they are always swollen-she has not been weighing herself at home encouraged them to do so. Pt is having no CP or any other issues. Schedule pt for ENZO appt with CT this coming Saturday. Advise them to contact us with any concerns prior to then. Will forward to CT as FYI. * Telephone Encounter - Leonie Cronin - 09/25/2021 11:48 AM CDT Mae Lisa call. Contact: * Telephone Encounter - Maria L Jensen RN - 09/25/2021 11:32 AM CDT REDD on for dgt to callback. * Telephone Encounter - Charli Quiroz - 09/25/2021 9:29 AM CDT Pt daughter Mae called pt was in the E.R this past 09/21 states was not cardiac related,Mae states pt received her covid booster 09/14 and started having diarrhea,low ox 83,and increased HR 150's on 09/18.Mae/pt reports no chest pain or other symptoms at this time.Concerned about HR states today it is 113 when walking.please advise.Thank you Contact:[phone] documented in this encounter Plan of Treatment Not on file documented as of this encounter Visit Diagnoses Not on filedocumented in this encounter Care Teams Cloth Finisher Relationship Specialty Start Date End Date Modesto Reyez DO PCP - General Internal Medicine 01/03/20 01/13/23 documented as of this encounter
--- OUTSIDE RECORDS SUMMARY | 2024-11-15 05:59 | XMS_ITS | Encounter Summary ---
Author Organization [facility] Address [address] [place] [address] Care Team Providers Care Coldfusion Name Role Phone Modesto Reyez DO Primary Care Provider [phone] Encounter Details Date Type Department Care Team (Late st Contact Info) Description 01/29/2020 Orders Only [facility] Cardiology [address] [place] [id number] Layne Santillan, CHANGE NUMBER OPERATOR [address] [place] [address] Social History Tobacco Use Types Packs/Day Years Used Date Smoking Tobacco: Never Assessed Comments Unknown Sex and Gender Information Value Date Recorded Sex Assigned at Not on file Legal Sex Female 1:14 AM LEASING PROPERTY MANAGER Gender Identity Female 05/04/2020 3:33 PM CDT Sexual Orientation Not on file documented as of this encounter Plan of Treatment Not on file documented as of this encounter Procedures Procedure Name Priority Date/Time Associated Diagnosis Comments CARDIOLOGY DOCUMENT SCAN Routine 01/29/2020 documented in this encounter Results * SCAN - CARDIOLOGY (01/29/2020) Anatomical Region Laterality Modality Other Layne Santillan CHANGE NUMBER OPERATOR CV CARDIAC SERVICES PROCEDURES F inal Result documented in this encounter Visit Diagnoses Not on filedocumented in this encounter Care Teams Coldfusion Relationship Specialty Start Date End Date Modesto Reyez DO PCP - General Internal Medicine 01/03/20 01/13/23 documented as of this encounter
--- OUTSIDE RECORDS SUMMARY | 2024-11-15 05:59 | XMS_ITS | Encounter Summary ---
Author Organization [facility] Address [address] [place] [address] Care Team Providers Care Rotary Machine Operator Name Role Phone Modesto Reyez Primary Care Provider [phone] Encounter Details Date Type Department Care Team (Late st Contact Info) Description 05/11/2021 11:00 AM CDT Office Visit [facility] Cardiology [address] [facility] [address] [place] [address] Yolanda Soto NP [address] [address] [place] [address] Preoperative cardiovascular examination (Primary Dx); Chronic heart failure with preserved ejection fraction (CMS/HCC); Paroxysmal atrial fibrillation (CMS/HCC); Chronic anticoagulation; STARR on CPAP; Elevated blood pressure reading Social History Tobacco Use Types Packs/Day Years Used Date Smoking Tobacco: Never Smokeless Tobacco: Never Alcohol Use Standard Drinks/Week Comments Not Currently 0 (1 standard drink = 0.6 oz pur e alcohol) Comments Unknown Sex and Gender Information Value Date Recorded Sex Assigned at Not on file Legal Sex Female 1:14 AM 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 DESIGNER Gender Identity Female 05/04/2020 3:33 PM CDT Sexual Orientation Not on file documented as of this encounter Last Filed Vital Signs Vital Sign Reading Time Taken Comments Blood Pressure 154/70 05/11/2021 11:23 AM CDT Pulse 53 05/11/2021 10:56 AM CDT Temperature - - Respiratory Rate - - Oxygen Saturation 97% 05/11/2021 10:56 AM CDT Inhaled Oxygen Concentration - - Weight 112.9 kg (249 lb) 05/11/2021 10:56 AM CDT Height 157.5 cm (5' 2 ) 05/11/2021 10:56 AM CDT Body Mass Index 45.54 05/11/2021 10:56 AM CDT documented in this encounter Progress Notes * Yolanda Soto NP - 05/11/2021 11:00 AM CDT Images from the original note were not included. [facility] Cardiology [address] [place] [address] Date of Visit: 05/11/2021 Patient ID: Ayanna Cash 1950 Chief Complaint: Ayanna Cash is a 71 y.o. female who is an established patient of Dr. Reyes with chronic HFpEF and afib, returning for cardovascular assessment prior to proceeding with cataract surgery. History of Present Illness: Ayanna Cash is a 71 y.o. female with a PMHx of rheumatoid arthritis, hypertension, hyperlipidemia, morbid obesity, STARR, diastolic heart failure, atrial fibrillation, and interstitial lung disease. She was on amiodarone and digoxin in the past , she had also had a successful cardioversion in the past. Mahamed in September 2019 showed EF 60%. She was previously followed by Dr. Parker. Her fisher lampara net is Dr. [place]. Her vacuum drum drier operator is Dr. Kobe Gerard. She presented to [facility] on 01/01/2020 with complaint of worsening [...] CPAP machine nightly, but sometimes remove sit fci through the night. PCP follows her INRs [...] trying to lose some weight, following a [id number] Na restriction. Now using a foot pedal [...] also agreed she is doing better overall. 05/11/21 CAT visit- she is here for preoperative evaluation planning cataract surgery. The only change in her health since the last visit is she states she had an ER visit on 02/26/21 for complaint of lightheadedness/dizziness and her workup in the ER was unremarkable. She had 1 other episode shortly after that but no recurrence since then. She saw PCP yesterday and BP was 150/82. Twelve lead ECG performed in the office today was reviewed by me personally and shows sinus rhythm, normal axis, rate 53 beats per minute, otherwise normal intervals. Records that I personally reviewed on the day of this visit include: (the interpretation is outlined in the HPI above) 01/12/[address] Reyes I have also reviewed: allergies, current medications, past family history, past medical history, past social history, past surgical history and problem list Review of Systems Constitutional: Positive for malaise/fatigue. Negative for diaphoresis, fever, weight gain and weight loss. HENT: Negative for hearing loss. Eyes: Positive for visual disturbance. Cardiovascular: Positive for leg swelling. Negative for chest pain, claudication, dyspnea on exertion, orthopnea, palpitations, paroxysmal nocturnal dyspnea and syncope. Respiratory: Negative for cough, hemoptysis, shortness of breath, snoring and wheezing. Hematologic/Lymphatic: Does not bruise/bleed easily. Skin: Negative for poor wound healing and rash. Musculoskeletal: Positive for joint pain and myalgias. Gastrointestinal: Negative for heartburn, nausea and vomiting. Genitourinary: Negative for hematuria. Neurological: Negative for dizziness, headaches and light-headedness. Psychiatric/Behavioral: Negative for depression. The patient is not nervous/anxious. Vital Signs: BP 160/64 (BP Location: Right arm, Patient Position: Sitting) Pulse 53 Ht 157.5 cm (5' 2 ) Wt112.9 kg (249 lb) SpO2 97% BMI 45.54 kg/m?? Physical Exam Constitutional: General: She is not in acute distress. Appearance: She is well-developed. She is obese. Comments: Seated in wheelchair HENT: Head: Normocephalic and atraumatic. Nose: Comments: Wearing a mask Eyes: General: No scleral icterus. Conjunctiva/sclera: Conjunctivae normal. Pupils: Pupils are equal, round, and reactive to light. Neck: Vascular: No JVD. Trachea: No tracheal deviation. Cardiovascular: Rate and Rhythm: Normal rate and regular rhythm. Heart sounds: Normal heart sounds. No murmur heard. Pulmonary: Effort: Pulmonary effort is normal. No respiratory distress. Breath sounds: Normal breath sounds. Abdominal: General: Bowel sounds are normal. Palpations: Abdomen is soft. Tenderness: There is no abdominal tenderness. Musculoskeletal: Comments: Mild bilateral nonpitting lower extremity edema Skin: General: Skin is warm and dry. Neurological: Mental Status: She is alert and oriented to person, place, and time. Psychiatric: Mood and Affect: Mood normal. Behavior: Behavior normal. No Known Allergies Current Outpatient Medications: ??? calcium carbonate-vit D3-min 600 mg calcium- 400 unit tablet, Take by mouth 2 (two) times a day, Disp: , Rfl: ??? cholecalciferol (Vitamin D3) 2000 unit tablet, Take 1,000 Units by mouth daily , Disp: , Rfl: ??? cholestyramine (QUESTRAN) 4 gram packet, , Disp: , Rfl: ??? cyanocobalamin 2,000 mcg tablet, Take 1,000 mcg by mouth daily , Disp: , Rfl: ??? Eliquis 5 mg tablet, Take 5 mg by mouth 2 (two) times a day, Disp: , Rfl: ??? folic acid (FOLVITE) 1 mg tablet, Take 1 mg by mouth daily, Disp: , Rfl: ??? furosemide (LASIX) 40 mg tablet, TAKE 1 TABLET BY MOUTH EVERY MORNING AND ONE-HALF TABLET BY MOUTH EVERY EVENING (Patient taking differently: 40 mg daily ), Disp: 135 tablet, Rfl: 3 ??? hydroxychloroquine (PLAQUENIL) 200 mg tablet, Take 200 mg by mouth 2 (two) times a day , Disp: , Rfl: ??? levothyroxine (SYNTHROID) 112 mcg tablet, Take 112 mcg by mouth daily, Disp: , Rfl: ??? methotrexate 2.5 mg tablet, Take 2.5 mg by mouth once a week Take 5 tablets once weekly, Disp: , Rfl: ??? metoprolol XL (TOPROL-XL) 100 mg 24 hr tablet, Take 1 tablet (100 mg total) by mouth early childhood education instructor before breakfast, Disp: 90 tablet, Rfl: 3 ??? metoprolol XL (TOPROL-XL) 25 mg extended release tablet, Take 1 tablet (25 mg total) by mouth daily, Disp: 90 tablet, Rfl: 3 ??? potassium chloride ER (potassium chloride ER) 10 mEq CR tablet, Take 10 mEq by mouth daily, Disp: , Rfl: ??? pravastatin (PRAVACHOL) 80 mg tablet, Take 80 mg by mouth daily, Disp: , Rfl: ??? warfarin (COUMADIN) 6 mg tablet, Take 6 mg by mouth daily (Patient not taking: Reported on 05/11/2021), Disp: , Rfl: No results found for: POTASSIUM, BUNSER, CREATININE, CHOL, TRIG, LDL, LDLCALC, HDL Assessment: Diagnoses and all orders for this visit: Preoperative cardiovascular examination (Primary) Chronic heart failure with preserved ejection fraction (CMS/HCC) Paroxysmal atrial fibrillation (CMS/HCC) Chronic anticoagulation STARR on CPAP Elevated blood pressure reading Plan/Recommendations: She has a history of chronic diastolic heart failure and paroxysmal atrial fibrillation. Her cardiac status appears stable. Therefore I would consider her a low risk of cardio vascular complications with this low risk surgical procedure. I advised her to take all of her usual medications the morning of the procedure except hold the furosemide and potassium chloride intake these upon returning home after the procedure. Explained that as with any procedure there it is in extremely small risk of perioperative MACE, so she develops any signs or symptoms of AK or CVA after the procedure, seek evaluation immediately. She verbalized understanding. She is currently in sinus rhythm. Continue metoprolol and Eliquis. She denies any bleeding problemsand she will not be required to hold the Eliquis prior to cataract extraction. She reports that she remains compliant with her CPAP machine. Blood pressure is elevated today and was elevated yesterday at the PCPs office. I advised her to begin checking blood pressures at home and keep a record to bring to the in next visit. But call the office sooner to report blood pressure readings if they remain high. Keep the previously scheduled follow-up visit with Dr. Reyes in June. CRISTEL Abdi- Nurse Practitioner with [facility] [place] Cardiology This note is dictated and transcribed using [employer] Direct Software. Balance Wheel Hand Filer variancesmay occur. Despite proofreading, typographical errors may occur. documented in this encounter Miscellaneous Notes * Addendum Note - Azeem Culp MA - 05/11/2021 11:00 AM CDTAddended by: AZEEM CULP on: 05/16/2021 09:43 AM Modules accepted: Orders documented in this encounter Plan of Treatment Not on file documented as of this encounter Procedures Procedure Name Priority Date/Time Associated Diagnosis Comments ECG 12-LEAD Routine 05/11/2021 Paroxysmal atrial fibrillation (CMS/HCC) documented in this encounter Results * ECG 12 lead (05/11/2021) us Yolanda Soto NP ECG ORDERABLES Final Res ult documented in this encounter Visit Diagnoses Diagnosis Preoperative cardiovascular examination- Primary Pre-operative cardiovascular examination Chronic heart failure with preserved ejection fraction (CMS/HCC) (HCC) Paroxysmal atrial fibrillation (CMS/HCC) (HCC) Atrial fibrillation Chronic anticoagulation Encounter for long-term (current) use of anticoagulants STARR on CPAP Elevated blood pressure reading Elevated blood pressure reading without diagnosis of hypertension documented in this encounter Historical Medications * This list may reflect changes made after this encounter. Eliquis 5 mg tablet Take 1 tablet (5 mg total) by mouth 2 (two) times a day 04/11/2021 added in this encounter Care Teams Rotary Machine Operator Relationship Specialty Start Date End Date Modesto Reyez DO PCP - General Internal Medicine 01/03/20 01/13/23 documented as of this encounter
--- OUTSIDE RECORDS SUMMARY | 2024-11-15 05:59 | XMS_ITS | Encounter Summary ---
Author Organization [facility] Address [address] [place] [address] Care Team Providers Care Priming Machine Operator Name Role Phone Modesto Reyez Primary Care Provider [phone] Encounter Details Date Type Department Care Team (Late st Contact Info) Description 04/21/2020 Telephone [facility] Cardiology [address] [facility] [address] [place] [address] Yolanda Soto NP [address] [facility] [address] [place] [address] Social History Tobacco Use Types Packs/Day Years Used Date Smoking Tobacco: Never Smokeless Tobacco: Never Alcohol Use Standard Drinks/Week Comments Not Currently 0 (1 standard drink = 0.6 oz pur e alcohol) Comments Unknown Sex and Gender Information Value Date Recorded Sex Assigned at Not on file Legal Sex Female 1:14 AM HOGSHEAD PRESS OPERATOR Gender Identity Female 05/04/2020 3:33 PM CDT Sexual Orientation Not on file documented as of this encounter Miscellaneous Notes * Addendum Note - Yesenia Clements RN - 04/21/2020 9:46 AM CDTAddended by: YESENIA CLEMENTS on: 04/21/2020 09:46 AM Modules accepted: Orders * Telephone Encounter - Yesenia Clements RN - 04/21/2020 9:35 AM CDT Spoke with pt. She states that the increase in furosemide has not helped her much. Her legs are still swollen not really any better. States her breathing is fine. Discussed with CT. Pt to return to ashly lower dosing of furosemide, 20 mg in the am and 20 in the afternoon. Pt prefers to take all 40 in the am. Reviewed with pt compression stocking use , which she does not have,low na diet and LE elevation. Pt seems to be compliant with elevating legs several times a day and appears to try to follow a low Na diet. Pt to obtain BMP 05/03 or prior to next OV with AD. Will mail req to pt as requested. * Telephone Encounter - Karly Lee - 04/21/2020 9:21 AM CDT Patient would like a call back to discuss the previous message. * Telephone Encounter - Yesenia Clements RN - 04/21/2020 9:10 AM CDT LM on Vm to discuss message below from CT Creatinine has risen from 1.2 to 1.5 on the higher dose of furosemide (40 mg in morning and 20 mg in afternoon). ??Has the higher dose helped? ??If so, she can remain on it, but we should recheck a BMP again prior to 05/[address] Reyes (get lab drawn on 05/03 or 05/04). ??Thanks. documented in this encounter Plan of Treatment Scheduled Orders Name Type Priority Associated Diagnoses Orde r Schedule Basic metabolic panel Lab Routine Chronic diastolic congestive heart failure (CMS/HCC) Acute kidney injury (CMS/HCC) Expected: 2020, Expires: 04/21/2021 documented as of this encounter Visit Diagnoses Diagnosis Chronic diastolic congestive heart failure (CMS/HCC) (HCC)- Primary Acute kidney injury (HCC) documented in this encounter Care Teams Priming Machine Operator Relationship Specialty Start Date End Date Modesto Reyez DO PCP - General Internal Medicine 01/03/20 01/13/23 documented as of this encounter
--- OUTSIDE RECORDS SUMMARY | 2024-11-15 05:59 | XMS_ITS | Encounter Summary ---
Author Organization [facility] Address [address] [place] [address] Care Team Providers Care Protective Services Social Worker Name Role Phone AissatouModesto Primary Care Provider [phone] Reason for Visit * Reason Comments Atrial Fibrillation 2 mo f/u Encounter Details Date Type Department Care Team (Late st Contact Info) Description 07/07/2020 8:30 AM CDT Office Visit [facility] Cardiology [address] [facility] [address] [place] [address] Yolanda Soto NP [address] [place] [address] Chronic atrial fibrillation (CMS/HCC) (Primary Dx); Chronic anticoagulation; Chronic diastolic heart failure (CMS/HCC); STARR on CPAP Social History Tobacco Use Types Packs/Day Years Used Date Smoking Tobacco: Never Smokeless Tobacco: Never Alcohol Use Standard Drinks/Week Comments Not Currently 0 (1 standard drink = 0.6 oz pur e alcohol) Comments Unknown Sex and Gender Information Value Date Recorded Sex Assigned at Not on file Legal Sex Female 1:14 AM HISTORY FACULTY MEMBER Gender Identity Female 05/04/2020 3:33 PM CDT Sexual Orientation Not on file documented as of this encounter Last Filed Vital Signs Vital Sign Reading Time Taken Comments Blood Pressure 142/72 07/07/2020 8:35 AM CDT Pulse 74 07/07/2020 8:35 AM CDT Temperature - - Respiratory Rate - - Oxygen Saturation 99% 07/07/2020 8:35 AM CDT 2L O2 Inhaled Oxygen Concentration - - Weight 116.6 kg (257 lb) 07/07/2020 8:35 AM CDT Height 157.5 cm (5' 2 ) 07/07/2020 8:35 AM CDT Body Mass Index 47.01 07/07/2020 8:35 AM CDT documented in this encounter Progress Notes * Yolanda Soto NP - 07/07/2020 8:30 AM CDT Images from the original note were not included. [facility] Cardiology [address] [place] [address] Date of Visit: 07/07/2020 Patient ID: Ayanna Cash 1950 Chief Complaint: Ayanna Cash is a 70 y.o. female who is an established patient of Dr. Reyes with atrial fibrillation and chronic diastolic heart failure returning for a two-month follow-up visit. History of Present Illness: Ayanna Cash is a 70 y.o. female with a PMHx of rheumatoid arthritis, hypertension, hyperlipidemia, morbid obesity, STARR, diastolic heart failure, atrial fibrillation, and interstitial lung disease. She was on amiodarone and digoxin in the past , she had also had a successful cardioversion in the past. Mahamed in September 2019 showed EF 60%. She was previously followed by Dr. Parker. Her air battle manager is Dr. Norman. Her gauge and weigh machine adjuster is Dr. Kobe Gerard. She presented to [facility] on 01/01/2020 with complaint of worsening shortness [...] CPAP machine nightly, but sometimes remove sit skilled nursing through the night. PCP follows her INRs [...] trying to lose some weight, following a [id number] Na restriction. Now using a foot pedal for some exercise. Her LE swelling does improve with elevation. She typically uses a walker but came to the office in a wheelchair due to the longer distance. Compliant with CPAP at night but does not use it during the day for a nap. Records that I personally reviewed on the day of this visit include: (the interpretation is outlined in the HPI above) 05/05/[address] Reyes I have also reviewed: allergies, current medications, past family history, past medical history, past social history, past surgical history and problem list Review of Systems Constitution: Positive for malaise/fatigue. Negative for diaphoresis, fever, weight gain and weightloss. HENT: Negative for hearing loss. Eyes: Negative for visual disturbance. Cardiovascular: Negative for chest pain, claudication, dyspnea on exertion, leg swelling, orthopnea, palpitations, paroxysmal nocturnal dyspnea and syncope. [...] patient is not nervous/anxious. Vital Signs: BP 142/72 (BP Location: Right arm, Patient Position: Sitting) Pulse 74 Ht 157.5 cm (5' 2 ) Wt116.6 kg (257 lb) SpO2 99% Comment: 2L O2 BMI 47.01 kg/m?? Physical Exam Constitutional: She is oriented to person, place, and time. She appears well- developed. No distress. Nasal cannula in place. Morbidly obese body habitus. HENT: Head: Normocephalic and atraumatic. Nose: Nose normal. Wearing a mask Eyes: Pupils are equal, round, and reactive to light. Conjunctivae and EOM are normal. No scleral icterus. Neck: Normal range of motion. No JVD present. No tracheal deviation present. Cardiovascular: Normal rate and normal heart sounds. An irregular rhythm present. No murmur heard. Auscultated 80 bpm Pulmonary/Chest: Effort normal and breath sounds normal. No respiratory distress. Abdominal: Soft. Bowel sounds are normal. There is no abdominal tenderness. Musculoskeletal: General: Edema present. Comments: Only a trace of bilateral lower extremity edema. Usually ambulates with a walker but is seated in wheelchair at today's visit. Neurological: She is alert and oriented to person, place, and time. Skin: Skin is warm and dry. Psychiatric: She has a normal mood and affect. No Known Allergies Current Outpatient Medications: ??? calcium carbonate-vit D3-min 600 mg calcium- 400 unit tablet, Take by mouth, Disp: , Rfl: ??? cholecalciferol (Vitamin D3) 2000 unit tablet, Take 2,000 Units by mouth daily, Disp: , Rfl: ??? cholestyramine (QUESTRAN) 4 gram packet, , Disp: , Rfl: ??? cyanocobalamin 2,000 mcg tablet, Take 2,000 mcg by mouth daily, Disp: , Rfl: ??? folic acid (FOLVITE) 1 mg tablet, Take 1 mg by mouth daily, Disp: , Rfl: ??? furosemide (LASIX) 40 mg tablet, Take 1 tablet po in the morning and 0.5 tablet po in the evening. (Patient taking differently: Take 40 mg by mouth daily ), Disp: 135 tablet, Rfl: 0 ??? hydroxychloroquine (PLAQUENIL) 200 mg tablet, Take 400 mg by mouth daily, Disp: , Rfl: ??? levothyroxine (SYNTHROID) 112 mcg tablet, Take 112 mcg by mouth daily, Disp: , Rfl: ??? methotrexate 2.5 mg tablet, Take 2.5 mg by mouth once a week, Disp: , Rfl: ??? metoprolol XL (TOPROL-XL) 100 mg 24 hr tablet, Take 1 tablet (100 mg total) by mouth gin clerk before breakfast, Disp: 90 tablet, Rfl: 3 [...] daily, Disp: , Rfl: ??? predniSONE (DELTASONE) 10 mg tablet, TK 1 T PO QAM, Disp: , Rfl: ??? warfarin (COUMADIN) 6 mg tablet, Take 6 mg by mouth daily, Disp: , Rfl: No results found for: POTASSIUM, BUNSER, CREATININE, CHOL, TRIG, LDL, LDLCALC, HDL Assessment: Diagnoses and all orders for this visit: Chronic atrial fibrillation (CMS/HCC) (Primary) Chronic anticoagulation Chronic diastolic heart failure (CMS/HCC) STARR on CPAP Plan/Recommendations: Her atrial fibrillation is rate controlled with metoprolol succinate 125 mg daily. She is tolerating anticoagulation with warfarin. Her INR is followed by her PCP. She is compliant with regular INR checks. Chronic diastolic heart failure appears compensated at this time. Continue furosemide 40 mg daily with potassium supplementation. Continue fluid and sodium restriction. I encouraged her to continue using the foot pedal as this will help control lower extremity edema as well. She is compliant with her CPAP machine at night but does not use it during the day for naps. I suggested that she do, but because it is up stairs in her bedroom and she naps down stairs she said she will not move it for naps. Return to the office to see Dr. Reyes in 6 months. Call us sooner with questions or concerns. CRISTEL Abdi- Nurse Practitioner with [facility] [place] Cardiology This note is dictated and transcribed using [employer] Software. Metallurgical Or Materials Technician variancesmay occur. Despite proofreading, typographical errors may occur. documented in this encounter Plan of Treatment Not on file documented as of this encounter Visit Diagnoses Diagnosis Chronic atrial fibrillation (HCC)- Primary Atrial fibrillation Chronic anticoagulation Encounter for long-term (current) use of anticoagulants Chronic diastolic heart failure (HCC) Chronic diastolic heart failure STARR on CPAP documented in this encounter Historical Medications * This list may reflect changes made after this encounter. predniSONE (DELTASONE) 10 mg tablet TK 1 T PO QAM 05/12/2020 01/12/2021 cholestyramine (QUESTRAN) 4 gram packet 06/09/2020 09/19/2023 added in this encounter Care Teams Protective Services Social Worker Relationship Specialty Start Date End Date Modesto Reyez DO PCP - General Internal Medicine 01/03/20 01/13/23 documented as of this encounter
--- OUTSIDE RECORDS SUMMARY | 2024-11-15 05:59 | XMS_ITS | Encounter Summary ---
Author Organization [facility] Address [address] [place] [address] Care Team Providers Care Bunghole Borer Name Role Phone Modesto Reyez DO Primary Care Provider [phone] Encounter Details Date Type Department Care Team (Late st Contact Info) Description 10/17/[address] [facility] Cardiology [address] [place] [address] Myles Reyes MD [address] [facility] [place] [address] Social History Tobacco Use Types Packs/Day Years Used Date Smoking Tobacco: Never Smokeless Tobacco: Never Alcohol Use Standard Drinks/Week Comments Not Currently 0 (1 standard drink = 0.6 oz pur e alcohol) Comments Unknown Sex and Gender Information Value Date Recorded Sex Assigned at Not on file Legal Sex Female 1:14 AM FUR BLOWING MACHINE OPERATOR Gender Identity Female 05/04/2020 3:33 PM CDT Sexual Orientation Not on file documented as of this encounter Miscellaneous Notes * Telephone Encounter - Maria L Jensen RN - 10/18/2020 12:56 PM FUR BLOWING MACHINE OPERATOR Spoke with pt dgt and reviewed message from AD. Dgt verbalized understanding and appreciated the assistance-she will call back next week with an update. BLOWING MACHINE OPERATOR * Telephone Encounter - Myles Reyes MD - 10/18/2020 12:46 PM FUR BLOWING MACHINE OPERATOR Increase Lasix to 80 mg in the morning the next 3-4 days, observe BP, daily weight. She must be compliant with less than 2 g daily sodium intake, monitor fluid intake as previously counseled. She is notify the office next week at least but of symptoms continue to progress worsening shortness of breath and weight gain contact us or present to the nearest ER via EMS if her symptoms are intolerable. BLOWING MACHINE OPERATOR * Telephone Encounter - Maria L Jensen RN - 10/18/2020 9:40 AM FUR BLOWING MACHINE OPERATOR Spoke with pt dgt and she had gained 9 pounds by the end of the weekend and as of today she is still up 6 pounds. She said pt should have called on Saturday but is stubborn and wanted to see if it got better over the weekend. Reviewed instructions again with when to notify us with weight gain: if pt gains 3 pounds from day to day or 5 pounds in one week to please call us. Dgt verbalized understanding. Pt has swelling in her legs so bad that it is hard for her to walk but she denies any SOB. Pt isonly taking furosemide 40mg daily at this time. Pt is supposed to take an additional 20mg in the pmbut doesn't because she is fearful that it will keep her awake at night. Will forward to AD Please advise, thank you! BLOWING MACHINE OPERATOR * Telephone Encounter - Анна Rosales - 10/18/2020 8:40 AM CST Pt's daughter called back to speak with Maria L CERVANTES. BLOWING MACHINE OPERATOR * Telephone Encounter - Maria L Jensen RN - 10/17/2020 8:43 AM FUR BLOWING MACHINE OPERATOR LM for pt to callback. BLOWING MACHINE OPERATOR * Telephone Encounter - Анна Rosales - 10/17/2020 8:15 AM CST Pt's emergency contact called to report pt would like to increase her lasix 40 mg tabs due to gaining 7 lbs last week and having trouble walking. BLOWING MACHINE OPERATOR documented in this encounter Plan of Treatment Not on file documented as of this encounter Visit Diagnoses Not on filedocumented in this encounter Care Teams Bunghole Borer Relationship Specialty Start Date End Date Modesto Reyez DO PCP - General Internal Medicine 01/03/20 01/13/23 documented as of this encounter
--- OUTSIDE RECORDS SUMMARY | 2024-11-15 05:59 | XMS_ITS | Encounter Summary ---
Author Organization [facility] Address [address] [place] [address] Care Team Providers Care Rope Walker Name Role Phone Modesto Reyez Primary Care Provider [phone] Reason for Visit * Reason Comments Chronic Afib 6 month f/u Chronic HF Encounter Details Date Type Department Care Team (Late st Contact Info) Description 01/12/2021 8:45 AM DISTANCE LEARNING PROGRAM COORDINATOR Office Visit [facility] Cardiology [address] [place] [address] Myles Reyes MD [id number] [place] [address] Chronic heart failure with preserved ejection fraction (CMS/HCC) (Primary Dx); Paroxysmal atrial fibrillation (CMS/HCC); STARR on CPAP; Chronic anticoagulation; Morbid obesity with BMI of 45.0-49.9, adult (CMS/HCC); Rheumatoid arthritis, involving unspecified site, unspecified whether rheumatoid factor present (CMS/HCC) Social History Tobacco Use Types Packs/Day Years Used Date Smoking Tobacco: Never Smokeless Tobacco: Never Alcohol Use Standard Drinks/Week Comments Not Currently 0 (1 standard drink = 0.6 oz pur e alcohol) Comments Unknown Sex and Gender Information Value Date Recorded Sex Assigned at Not on file Legal Sex Female 1:14 AM DISTANCE LEARNING PROGRAM COORDINATOR Gender Identity Female 05/04/2020 3:33 PM CDT Sexual Orientation Not on file documented as of this encounter Last Filed Vital Signs Vital Sign Reading Time Taken Comments Blood Pressure 122/70 01/12/2021 8:58 AM DISTANCE LEARNING PROGRAM COORDINATOR Pulse 51 01/12/2021 8:58 AM DISTANCE LEARNING PROGRAM COORDINATOR Temperature - - Respiratory Rate - - Oxygen Saturation 99% 01/12/2021 8:58 AM DISTANCE LEARNING PROGRAM COORDINATOR Inhaled Oxygen Concentration - - Weight 114.6 kg (252 lb 9.6 oz) 01/12/2021 8:58 AM DISTANCE LEARNING PROGRAM COORDINATOR Height 157.5 cm (5' 2 ) 01/12/2021 8:58 AM DISTANCE LEARNING PROGRAM COORDINATOR Body Mass Index 46.2 01/12/2021 8:58 AM DISTANCE LEARNING PROGRAM COORDINATOR documented in this encounter Progress Notes * Myles Reyes MD - 01/12/2021 8:45 AM CST [facility] DATE OF VISIT: 01/12/2021 CHIEF COMPLAINT Chief Complaint Patient presents with ??? Chronic Afib 6 month f/u ??? Chronic HF ASSESSMENT Diagnoses and all orders for this visit: Chronic heart failure with preserved ejection fraction (CMS/HCC) (Primary) Longstanding persistent atrial fibrillation (CMS/HCC) STARR on CPAP Chronic anticoagulation Morbid obesity with BMI of 45.0-49.9, adult (CMS/HCC) Rheumatoid arthritis, involving unspecified site, unspecified whether rheumatoid factor present (CMS/HCC) PLAN/RECOMMENDATIONS 1. AFib paroxysmal, SR on exam [...] to avoid falls and injuries/bleeding. 2. BP controlled. Monitor BP on routine basis. Call with readings. Continue consistent cardiovascular exercise, weight loss, medication compliance, and low- sodium diet. 3. Heart failure preserved ejection fraction. Reasonably compensated NYHA class II-III sxs. CHF counseling performed. Follow daily weight, less than 2 g daily sodium intake, medication compliance. Call w/ wt gain >3lb in 24 hrs or worsening edema and/or FALCON. -continue current diuretic regimen. Patient doing well with dietary changes in sodium restriction. 4. Compliance with medications, recommendations follow-up once again extensively reviewed with patient and her daughter. They both verbalized understanding and agreed. Counseled extensively on importance with continue activity, dietary, sodium and fluid restriction as counseled. 5. Continue Toprol XL 125 mg daily. HR regular on exam today. Tolerating well at this time. Monitorfor bradycardia, dizziness, symptomatic hypotension. 6. Lipids personally reviewed 02/09/20 LDL 65, well controlled. Continue statin therapy and lifestyle modification. Pravastatin 80mg qhs. Over 50% of this visit counseling CHF, HTN, lipids, medications, lifestyle modification. Follow up in the office in 5-6 months or sooner as needed. Thank you for allowing me the privilege of participating in the care this very pleasant patient. Please do not hesitate to contact me with any additional questions or concerns. HPI Ayanna Cash is a 70 y.o. female with a PMHx of rheumatoid arthritis, hypertension, hyperlipidemia, morbid obesity, STARR, diastolic heart failure, atrial fibrillation, and interstitial lung disease. She was on amiodarone and digoxin in the past , she had also had a successful cardioversion in the past. Mahamed in September 2019 showed EF 60%. She was previously followed by Dr. Parker. Her six pack packer is Dr. Norman. Her veterans contact representative is Dr. Kobe Gerard. She presented to [facility] 01[facility]01[facility]2020 with complaint of worsening [...] per minute. On 02/02/2020, her K was 4.4,BUN 24, creatinine 1.2. 05/05/20 c/o more pain [...] trying to lose some weight, following a 5814-1835 Na restriction. Now using a foot pedal [...] also agreed she is doing better overall. MEDICAL HISTORY Past Medical History: [...] 4 gram packet cyanocobalamin 2,000 mcg tablet folic acid (FOLVITE) [...] mg tablet warfarin (COUMADIN) 6 mg tablet predniSONE (DELTASONE) 10 mg tablet [...] for environmental allergies. PHYSICAL EXAM Vitals BP 122/70 (BP Location: Left arm, Patient Position: Sitting) Pulse 51 Ht 157.5 cm (5' 2 ) Wt 114.6 kg (252 lb 9.6 oz) SpO2 99% BMI 46.20 kg/m?? Weight: 114.6 kg (252 lb 9.6 oz) Height: 157.5 cm (5' 2 ) Body mass index is 46.2 kg/m??. Physical Exam Constitutional: She is oriented [...] orders placed or performed in visit on 05/15/20 Protime-INR Result Value Ref Range SCRIBED PT 20.9 L - H sec SCRIBED INR 1.9 L - H sec Protime-INR Result Value Ref Range SCRIBED PT 26.5 L - H sec SCRIBED INR 2.5 L - H sec Personally reviewed EKG, electronic medical record, [facility] records, and bloodwork/lipids. Geetha Reyes MD, [facility] This note is dictated and transcribed using [employer] Direct Software. Watershed Manager variancesmay occur. Despite proofreading, typographical errors may occur. ANCE LEARNING PROGRAM COORDINATOR documented in this encounter Plan of Treatment Not on file documented as of this encounter Visit Diagnoses Diagnosis Chronic heart failure with preserved ejection fraction (CMS/HCC) (HCC)- Primary Paroxysmal atrial fibrillation (CMS/HCC) (HCC) Atrial fibrillation STARR on CPAP Chronic anticoagulation Encounter for long-term (current) use of anticoagulants Morbid obesity with BMI of 45.0-49.9, adult (HCC) Rheumatoid arthritis, involving unspecified site, unspecified whether rheumatoid factor present (HCC) documented in this encounter Discontinued Medications Medication Sig Discontinue Reason Start Date End Da te predniSONE (DELTASONE) 10 mg tablet TK 1 T PO QAM Therapy completed 05/12/2020 01/12/2021 documented as of this encounter Care Teams Rope Walker Relationship Specialty Start Date End Date Modesto Reyez DO PCP - General Internal Medicine 01/03/20 01/13/23 documented as of this encounter
--- OUTSIDE RECORDS SUMMARY | 2024-11-15 05:59 | XMS_ITS | Encounter Summary ---
Author Organization [facility] Address [address] [place] [address] Care Team Providers Care Manager Social Work Name Role Phone Modesto Reyez DO Primary Care Provider [phone] Encounter Details Date Type Department Care Team (Late st Contact Info) Description 10/02/2021 Orders Only [facility] Cardiology [address] [place] [address] Yolanda Soto NP [address] [place] [address] FALCON (dyspnea on exertion) Social History Tobacco Use Types Packs/Day Years Used Date Smoking Tobacco: Never Smokeless Tobacco: Never Alcohol Use Standard Drinks/Week Comments Not Currently 0 (1 standard drink = 0.6 oz pur e alcohol) Comments Unknown Sex and Gender Information Value Date Recorded Sex Assigned at Not on file Legal Sex Female 1:14 AM SALESPERSON WOMEN'S HATS Gender Identity Female 05/04/2020 3:33 PM CDT Sexual Orientation Not on file documented as of this encounter Plan of Treatment Not on file documented as of this encounter Visit Diagnoses Diagnosis FALCON (dyspnea on exertion) Other dyspnea and respiratory abnormality documented in this encounter Orders Imaging Orders Without Results Count Last Order ed Date First Ordered Date CT CHEST PE (CTA) W CONTRAST 1 10/02/2021 documented in this encounter Care Teams Manager Social Work Relationship Specialty Start Date End Date Modesto Reyez DO PCP - General Internal Medicine 01/03/20 01/13/23 documented as of this encounter
--- OUTSIDE RECORDS SUMMARY | 2024-11-15 05:59 | XMS_ITS | Encounter Summary ---
Author Organization [facility] Address [address] [place] [address] Care Team Providers Care Regulatory Affairs Director Name Role Phone Modesto Reyez DO Primary Care Provider [phone] Encounter Details Date Type Department Care Team (Late st Contact Info) Description 01/28/2020 Orders Only [facility] Cardiology [address] [place] [address] Amanda Herman MD [address] [place] [id number] Social History Tobacco Use Types Packs/Day Years Used Date Smoking Tobacco: Never Assessed Comments Unknown Sex and Gender Information Value Date Recorded Sex Assigned at Not on file Legal Sex Female 1:14 AM SIGNAL WORKER Gender Identity Female 05/04/2020 3:33 PM CDT Sexual Orientation Not on file documented as of this encounter Plan of Treatment Not on file documented as of this encounter Procedures Procedure Name Priority Date/Time Associated Diagnosis Comments CARDIOLOGY DOCUMENT SCAN Routine 01/28/2020 documented in this encounter Results * SCAN - CARDIOLOGY (01/28/2020) Anatomical Region Laterality Modality Other Amanda Herman MD CV CARDIAC SERVICES PROCEDURES Final Result documented in this encounter Visit Diagnoses Not on filedocumented in this encounter Care Teams Regulatory Affairs Director Relationship Specialty Start Date End Date Modesto Reyez DO PCP - General Internal Medicine 01/03/20 01/13/23 documented as of this encounter
--- OUTSIDE RECORDS SUMMARY | 2024-11-15 05:59 | XMS_ITS | Encounter Summary ---
Author Organization [facility] Address [address] [place] [address] Care Team Providers Care Distribution Superintendent Name Role Phone Modesto Reyez DO Primary Care Provider [phone] Encounter Details Date Type Department Care Team (Latest Contact Info) Description 06/22/2021 8:09 AM CDT - 06/22/2021 11:59 PM CDT Hospital Encounter [facility] [address] [place] [address] Discharge Disposition: Discharge to home or self care Social History Tobacco Use Types Packs/Day Years Used Date Smoking Tobacco: Never Smokeless Tobacco: Never Alcohol Use Standard Drinks/Week Comments Not Currently 0 (1 standard drink = 0.6 oz pur e alcohol) Comments Unknown Sex and Gender Information Value Date Recorded Sex Assigned at Not on file Legal Sex Female 1:14 AM SINGER BACK TENDER Gender Identity Female 05/04/2020 3:33 PM [...] tablet TAKE 1 TABLET(100 MG) BY MOUTH TEST FIXTURE ASSEMBLER BEFORE BREAKFAST 90 tablet 3 05/18/2021 2 [...] Comments XR TRANSFER OF OUTSIDE FILMS Routine 06/22/2021 8:09 AM CDT Diagnosis unknown documented in this encounter Results * XR Outside Reference (06/22/2021 8:09 AM CDT) Impressions RAD_PACS_[facility] - 06/22/2021 8:09 AM CDT These images are for Reference purposes only and have not been reviewed by [facility] Radiology. ??There will be no report generated by a [facility] Radiologist. Narrative RAD_PACS_[facility] - 06/22/2021 8:09 AM CDT EXAMINATION: ??Images For Reference Purposes Only us Denita Correa MD IMG XR PROCEDURES Final Resu lt [facility] documented in this encounter Visit Diagnoses Not on filedocumented in this encounter Care Teams Distribution Superintendent Relationship Specialty Start Date End Date Modesto Reyez DO PCP - General Internal Medicine 01/03/20 01/13/23 documented as of this encounter
--- OUTSIDE RECORDS SUMMARY | 2024-11-15 05:59 | XMS_ITS | Encounter Summary ---
Author Organization [facility] Address [address] [place] [address] Care Team Providers Care Hall Worker Name Role Phone Modesto Reyez DO Primary Care Provider [phone] Encounter Details Date Type Department Care Team (Late st Contact Info) Description 05/10/2020 Anticoagulation Visit [facility] Cardiology [address] [place] [address] Maria L Jensen RN Social History Tobacco Use Types Packs/Day Years Used Date Smoking Tobacco: Never Smokeless Tobacco: Never Alcohol Use Standard Drinks/Week Comments Not Currently 0 (1 standard drink = 0.6 oz pur e alcohol) Comments Unknown Sex and Gender Information Value Date Recorded Sex Assigned at Not on file Legal Sex Female 1:14 AM MID LEVEL NET DEVELOPER Gender Identity Female 05/04/2020 3:33 PM CDT Sexual Orientation Not on file documented as of this encounter Plan of Treatment Not on file documented as of this encounter Visit Diagnoses Not on filedocumented in this encounter Care Teams Hall Worker Relationship Specialty Start Date End Date Modesto Reyez DO PCP - General Internal Medicine 01/03/20 01/13/23 documented as of this encounter
--- OUTSIDE RECORDS SUMMARY | 2024-11-15 05:59 | XMS_ITS | Encounter Summary ---
Author Organization [facility] Address [address] [place] [address] Care Team Providers Care Filtration Plant Mechanic Name Role Phone Modesto Reyez DO Primary Care Provider [phone] Encounter Details Date Type Department Care Team (Late st Contact Info) Description 01/03/2020 Orders Only [facility] Cardiology [address] [place] [address] Myles Reyes MD [address] [facility] [place] [address] Social History Tobacco Use Types Packs/Day Years Used Date Smoking Tobacco: Never Assessed Comments Unknown Sex and Gender Information Value Date Recorded Sex Assigned at Not on file Legal Sex Female 1:14 AM DOLLY OPERATOR Gender Identity Female 05/04/2020 3:33 PM CDT Sexual Orientation Not on file documented as of this encounter Plan of Treatment Not on file documented as of this encounter Procedures Procedure Name Priority Date/Time Associated Diagnosis Comments CARDIOLOGY DOCUMENT SCAN Routine 01/03/2020 documented in this encounter Results * SCAN - CARDIOLOGY (01/03/2020) Anatomical Region Laterality Modality Other Myles Reyes MD CV CARDIAC SERVICES PROC EDURES Final Result documented in this encounter Visit Diagnoses Not on filedocumented in this encounter Care Teams Filtration Plant Mechanic Relationship Specialty Start Date End Date Modesto Reyez DO PCP - General Internal Medicine 01/03/20 01/13/23 documented as of this encounter
--- OUTSIDE RECORDS SUMMARY | 2024-11-15 05:59 | XMS_ITS | Encounter Summary ---
Author Organization [facility] Address [address] [place] [address] Care Team Providers Care Digital Project Manager Name Role Phone Aissatou Modesto PAIDLLA Primary Care Provider [phone] Reason for Referral * MRI/CAT/PET Scan (Routine) - Closed Specialty Diagnoses / Procedures Referred By Contac t Referred To Contact Radiology Diagnoses FALCON (dyspnea on exertion) Procedures CT Chest PE (CTA) W Contrast Yolanda Soot NP [address] [place] [address] Phone: tel: fax: External Order Referral ID Status Reason Start Date Expiration Date Visits Re quested Visits Authorized [id number] Closed 09/29/2021 10/29/2022 1 1 * Cardiology (Routine) - Closed Specialty Diagnoses / Procedures Referred By Contac t Referred To Contact Diagnoses Paroxysmal atrial fibrillation (CMS/HCC) (HCC) Procedures 48 HR Holter Monitor Yolanda Soto NP [address] [address] Phone: tel: fax: [facility] Referral ID Status Reason Start Date Expiration Date Visits Re quested Visits Authorized [id number] Closed 09/29/2021 10/29/2022 1 1 Reason for Visit * Reason Comments Congestive Heart Failure Encounter Details Date Type Department Care Team (Late st Contact Info) Description 09/29/2021 10:00 AM CDT Office Visit [facility] Cardiology [address] [place] [address] Yolanda Soto NP [address] [place] [id number] Chest pain, unspecified type (Primary Dx); FALCON (dyspnea on exertion); Paroxysmal atrial fibrillation (CMS/HCC) (HCC); Chronic anticoagulation; Chronic diastolic heart failure (CMS/HCC) (HCC); ILD (interstitial lung disease) (CMS/HCC) (HCC) Social History Tobacco Use Types Packs/Day Years Used Date Smoking Tobacco: Never Smokeless Tobacco: Never Alcohol Use Standard Drinks/Week Comments Not Currently 0 (1 standard drink = 0.6 oz pur e alcohol) Comments Unknown Sex and Gender Information Value Date Recorded Sex Assigned at Not on file Legal Sex Female 1:14 AM SOFTWARE QUALITY MANAGER Gender Identity Female 05/04/2020 3:33 PM CDT Sexual Orientation Not on file documented as of this encounter Last Filed Vital Signs Vital Sign Reading Time Taken Comments Blood Pressure 122/60 09/29/2021 10:04 AM CDT Pulse 84 09/29/2021 10:04 AM CDT Temperature - - Respiratory Rate - - Oxygen Saturation 92% 09/29/2021 10:04 AM CDT Inhaled Oxygen Concentration - - Weight - - Height 157.5 cm (5' 2 ) 09/29/2021 10:04 AM CDT Body Mass Index - - documented in this encounter Progress Notes * Yolanda Soto NP - 09/29/2021 10:00 AM CDT Images from the original note were not included. [facility] Cardiology [address] [place] [address] Date of Visit: 09/29/2021 Patient ID: Ayanna Cash [id number] Chief Complaint: Ayanna Cash is a 71 y.o. female who is an established patient of Dr. Reyes with chronic HFpEF and afib, returning for follow-up after she had an ER visit for shortness of breath.. History of Present Illness: Ayanna Cash is [...] was previously followed by Dr. Parker. Her intelligence agent is Dr. Norman. Her customer success intern is Dr. Kobe Gerard. She presented to [facility] on 01/01/2020 with complaint of worsening [...] trying to lose some weight, following a [id number] Na restriction. Now using a foot pedal [...] 53 beats per minute, otherwise normal intervals. 09/29/21 CAT visit-On 09/21/21 she went to [facility] ER for complaint of worsening shortnessof [...] Norman has referred her to pulmonology at [facility] and that appointment is next month. 12-lead ECG performed in the office today was independently interpreted by me and showed sinus rhythm, normal axis and normal intervals, rate 88 beats per minute Records that I personally reviewed on the day of this visit include: (the interpretation is outlined in the HPI above) 01/12/[address] Reyes, 05/11/2021 office note from myself, 09/21/2021 [facility] emergency room record, today's ECG I have also reviewed: allergies, current medications, [...] patient is not nervous/anxious. Vital Signs: BP 122/60 (BP Location: Right arm, Patient Position: Sitting) Pulse 84 Ht 157.5 cm (5' 2 ) SpO2 92% BMI 45.54 kg/m?? Physical Exam Constitutional: General: She is not in acute distress. Appearance: She is well-developed. She is morbidly obese. Interventions: Nasal cannula in place. Comments: Seated in wheelchair HENT: Head: Normocephalic [...] effort is normal. No respiratory distress. Comments: Fine crackles heard in all lung khan. Wearing supplemental oxygen via nasal cannula Abdominal: General: Bowel sounds are normal. Palpations: Abdomen is soft. Tenderness: There is no abdominal tenderness. Musculoskeletal: Right lower leg: No edema. Left lower leg: No edema. Comments: Mild bilateral nonpitting lower extremity edema [...] a day , Disp: , Rfl: ??? cholecalciferol (Vitamin D3) [...] tablet, TAKE 1 TABLET(100 MG) BY MOUTH COMMUNITY THEATER ACTOR BEFORE BREAKFAST, Disp: 90 tablet, Rfl: 3 ??? metoprolol XL (TOPROL-XL) 25 mg extended release tablet, TAKE 1 TABLET(25 MG) BY MOUTH DAILY, Disp: 90 tablet, Rfl: 3 ??? potassium chloride ER (potassium chloride ER) 10 mEq CR tablet, Take 10 mEq by mouth daily, Disp: , Rfl: ??? pravastatin (PRAVACHOL) 80 mg tablet, Take 80 mg by mouth daily, Disp: , Rfl: No results found for: POTASSIUM, BUNSER, CREATININE, CHOL, TRIG, LDL, LDLCALC, HDL Assessment: Diagnoses and all orders for this visit: FALCON (dyspnea on exertion) (Primary) - D-dimer, quantitative; Future Paroxysmal atrial fibrillation (CMS/HCC) (HCC) - 48 HR Holter Monitor; Future Chronic anticoagulation Chronic diastolic heart failure (CMS/HCC) (HCC) - Transthoracic Echo Complete W Doppler/CF; Future ILD (interstitial lung disease) (CMS/HCC) ([facility] Plan/Recommendations: The patient has been on Eliquis and I reassured her the risk of PE is low although it is not zero. Because she is concerned about this possibility and it was not included in her recent ER testing, I sent her for a D-dimer and it is elevated at 1.59 micrograms/mL. This type of D-dimer elevation can be seen with chronic inflammation/rheumatologic conditions and is still not an accurate way to assess her risk of PE. Therefore I will order a CT of the chest with PE protocol and it looks like we will be able to get this scheduled within the next 4 days. She is becoming tachycardic when she walks around and therefore I will place a 48 hour Holter monitor to assess her rhythm, whether this is AFib with RVR or some other tachycardia. She had no fluid in her lungs on her recent chest x-ray and her proBNP was not that elevated and therefore I do not think she has much exacerbation of her chronic diastolic heart failure going on. She has a higher oxygen requirement recently so I suspect this is more pulmonary with her interstitiallung disease. But she has not had an echocardiogram for a couple of years and therefore I think it could be helpful to repeat her echocardiogram and reassess her RVSP and RV function. We will bring her back into the office for this in the next week, and then I will follow-up with her over the phoneabout this result. I agree with her referral to pulmonology [facility] to further assess her ILD. Keep the previously scheduled follow-up visit with Dr. Reyes in October. CRISTEL Abdi- Nurse Practitioner with [facility] This note is dictated and transcribed using [employer] Direct Software. Speech Instructor variancesmay occur. Despite proofreading, typographical errors may occur. documented in this encounter Plan of Treatment Scheduled Orders Name Type Priority Associated Diagnoses Orde r Schedule D-dimer, quantitative Lab Routine FALCON (dyspnea on exertion) Expected: 09/29/2021, Expires: 10/29/2021 CT Chest PE (CTA) W Contrast Imaging Schedule Routine, Read Routine (OP Routine) FALCON (dyspnea on exertion) Expected: 09/29/2021, Expires: 09/29/2022 documented as of this encounter Procedures Procedure Name Priority Date/Time Associated Diagnosis Comments ECG 12-LEAD Routine 09/29/2021 Chest pain, unspecified type documented in this encounter Results * 48 HR Holter Monitor (09/29/2021 3:47 PM CDT) Anatomical Region Laterality Modality Other Narrative 10/04/2021 5:19 PM SOFTWARE QUALITY MANAGER AMBULATORY IT NETWORK ADMINISTRATOR REPORT Patient Name: Ayanna Cash Date of [...] was used to complete this document, therefore, supervisor grips variances may occur. Efrain Rodriguez MD, [facility] 10/04/21 Procedure Note Efrain Rodriguez MD - 10/04/2021 AMBULATORY IT NETWORK ADMINISTRATOR REPORT Patient Name: Ayanna Cash Date of [...] software was used to complete this document, therefore,supervisor grips variances may occur. Efrain Rodriguez MD, [facility] 10/04/21 Yolanda Soto NP [facility] Final Result * ECG 12 lead (09/29/2021) Myles Reyes MD ECG ORDERABLES Final Re sult documented in this encounter Visit Diagnoses Diagnosis Chest pain, unspecified type- Primary FALCON (dyspnea on exertion) Other dyspnea and respiratory abnormality Paroxysmal atrial fibrillation (CMS/HCC) (HCC) Atrial fibrillation Chronic anticoagulation Encounter for long-term (current) use of anticoagulants Chronic diastolic heart failure (HCC) Chronic diastolic heart failure ILD (interstitial lung disease) (CMS/HCC) (HCC) Postinflammatory pulmonary fibrosis Paroxysmal atrial fibrillation (CMS/HCC) (HCC) Atrial fibrillation documented in this encounter Discontinued Medications Medication Sig Discontinue Reason Start Date End Da te warfarin (COUMADIN) 6 mg tablet Take 6 mg by mouth daily Alternate therapy 02/02/2020 09/29/2021 documented as of this encounter Care Teams Digital Project Manager Relationship Specialty Start Date End Date Modesto Reyez DO PCP - General Internal Medicine 01/03/20 01/13/23 documented as of this encounter
--- OUTSIDE RECORDS SUMMARY | 2024-11-15 05:59 | XMS_ITS | Encounter Summary ---
Author Organization [facility] Address [address] [place] [address] Care Team Providers Care Public Service Representative Name Role Phone Modesto Reyez DO Primary Care Provider [phone] Encounter Details Date Type Department Care Team (Late st Contact Info) Description 06/06/2020 Anticoagulation Visit [facility] Cardiology [address] [place] [address] Noa Licona, RN Social History Tobacco Use Types Packs/Day Years Used Date Smoking Tobacco: Never Smokeless Tobacco: Never Alcohol Use Standard Drinks/Week Comments Not Currently 0 (1 standard drink = 0.6 oz pur e alcohol) Comments Unknown Sex and Gender Information Value Date Recorded Sex Assigned at Not on file Legal Sex Female 1:14 AM ECONOMETRICIAN Gender Identity Female 05/04/2020 3:33 PM CDT Sexual Orientation Not on file documented as of this encounter Progress Notes * Noa Licona RN - 06/06/2020 3:20 PM CDT This was in error. inr's managed by pcp documented in this encounter Plan of Treatment Not on file documented as of this encounter Visit Diagnoses Not on filedocumented in this encounter Care Teams Public Service Representative Relationship Specialty Start Date End Date Modesto Reyez DO PCP - General Internal Medicine 01/03/20 01/13/23 documented as of this encounter
--- OUTSIDE RECORDS SUMMARY | 2024-11-15 05:59 | XMS_ITS | Encounter Summary ---
Author Organization [facility] Address [address] [place] [address] Care Team Providers Care Nurse Coordinator Name Role Phone Modesto Reyez DO Primary Care Provider [phone] Encounter Details Date Type Department Care Team (Late st Contact Info) Description 04/26/[address] [facility] Cardiology [address] [place] [address] Maria L Jensen RN Social History Tobacco Use Types Packs/Day Years Used Date Smoking Tobacco: Never Smokeless Tobacco: Never Alcohol Use Standard Drinks/Week Comments Not Currently 0 (1 standard drink = 0.6 oz pur e alcohol) Comments Unknown Sex and Gender Information Value Date Recorded Sex Assigned at Not on file Legal Sex Female 1:14 AM APARTMENT COORDINATOR Gender Identity Female 05/04/2020 3:33 PM CDT Sexual Orientation Not on file documented as of this encounter Plan of Treatment Not on file documented as of this encounter Visit Diagnoses Not on filedocumented in this encounter Care Teams Nurse Coordinator Relationship Specialty Start Date End Date Modesto Reyez DO PCP - General Internal Medicine 01/03/20 01/13/23 documented as of this encounter
--- OUTSIDE RECORDS SUMMARY | 2024-11-15 05:59 | XMS_ITS | Encounter Summary ---
Author Organization [facility] Address [address] [place] [address] Phone Care Team Providers Care Tax Evaluator Name Role Phone Modesto Reyez DO Primary Care Provider [phone] Reason for Visit * Reason Onset Date Comments miscellaneous 06/22/2021 Encounter Details Date Type Department Care Team (Late st Contact Info) Description 06/22/2021 Documentation [facility] [address] Advanced [facility] [address]th [place] [address] [place] [address] Denita Correa MD [address] [facility] [address] [place] [address] miscellaneous Social History Tobacco Use Types Packs/Day Years Used Date Smoking Tobacco: Never Smokeless Tobacco: Never Alcohol Use Standard Drinks/Week Comments Not Currently 0 (1 standard drink = 0.6 oz pur e alcohol) Comments Unknown Sex and Gender Information Value Date Recorded Sex Assigned at Not on file Legal Sex Female 1:14 AM INSPECTOR INTEGRATED CIRCUITS Gender Identity Female 05/04/2020 3:33 PM CDT Sexual Orientation Not on file documented as of this encounter Progress Notes * Denita Correa MD - 06/22/2021 7:53 AM CDT Received osh films - patient has appointment in October in ILD clinic. Loaded into [employer]. documented in this encounter Plan of Treatment Not on file documented as of this encounter Visit Diagnoses Not on filedocumented in this encounter Care Teams Tax Evaluator Relationship Specialty Start Date End Date Modesto Reyez DO PCP - General Internal Medicine 01/03/20 01/13/23 documented as of this encounter
--- OUTSIDE RECORDS SUMMARY | 2024-11-15 05:59 | XMS_ITS | Encounter Summary ---
Author Organization [facility] Address [address] [place] [address] Care Team Providers Care Finance Executive Name Role Phone Modesto Reyez DO Primary Care Provider [phone] Encounter Details Date Type Department Care Team (Late st Contact Info) Description 01/30/2020 Orders Only [facility] Cardiology [address] [place] [address] Myles Reyes MD [address] [facility] [address] [place] [address] Social History Tobacco Use Types Packs/Day Years Used Date Smoking Tobacco: Never Assessed Comments Unknown Sex and Gender Information Value Date Recorded Sex Assigned at Not on file Legal Sex Female 1:14 AM DIRECTOR GEOTHERMAL OPERATIONS Gender Identity Female 05/04/2020 3:33 PM CDT Sexual Orientation Not on file documented as of this encounter Plan of Treatment Not on file documented as of this encounter Procedures Procedure Name Priority Date/Time Associated Diagnosis Comments CARDIOLOGY DOCUMENT SCAN Routine 01/30/2020 documented in this encounter Results * SCAN - CARDIOLOGY (01/30/2020) Anatomical Region Laterality Modality Other Myles Reyes MD [facility] PROC EDURES Final Result documented in this encounter Visit Diagnoses Not on filedocumented in this encounter Care Teams Finance Executive Relationship Specialty Start Date End Date Modesto Reyez DO PCP - General Internal Medicine 01/03/20 01/13/23 documented as of this encounter
--- OUTSIDE RECORDS SUMMARY | 2024-11-15 05:59 | XMS_ITS | Encounter Summary ---
Author Organization [facility] Address [address] [place] [address] Care Team Providers Care Drop Press Hand Name Role Phone Modesto Reyez DO Primary Care Provider [phone] Encounter Details Date Type Department Care Team (Late st Contact Info) Description 04/06/2020 Telephone [facility] Cardiology [address] [address] [place] [address] Myles Reyes MD [address] [facility] [address] [place] [address] Social History Tobacco Use Types Packs/Day Years Used Date Smoking Tobacco: Never Smokeless Tobacco: Never Alcohol Use Standard Drinks/Week Comments Not Currently 0 (1 standard drink = 0.6 oz pur e alcohol) Comments Unknown Sex and Gender Information Value Date Recorded Sex Assigned at Not on file Legal Sex Female 1:14 AM CLINICAL PROGRAMMER Gender Identity Female 05/04/2020 3:33 PM CDT Sexual Orientation Not on file documented as of this encounter Ordered Prescriptions Prescription Sig Dispense Quantity Refills Last Filled Start Date End Date furosemide (LASIX) 40 mg tablet Take 1 tablet po in the morning and 0.5 tablet po in the evening. 135 tablet 04/06/2020 0 documented in this encounter Miscellaneous Notes * Telephone Encounter - Samara Leyva MA - 04/06/2020 10:38 AM CDT Medication sent to pharmacy. * Telephone Encounter - Niocle Parr - 04/06/2020 8:51 AM CDT Patient/and or Pharmacy calling to request refills on the following medications:Furosemide 20 mg Pharmacy:[facility] [place] on [address] documented in this encounter Plan of Treatment Not on file documented as of this encounter Visit Diagnoses Not on filedocumented in this encounter Discontinued Medications Medication Sig Discontinue Reason Start Date End Da te furosemide (LASIX) 40 mg tablet Take 40 mg by mouth daily Reorder 01/07/2020 04/06/2020 documented as of this encounter Care Teams Drop Press Hand Relationship Specialty Start Date End Date Modesto Reyez DO PCP - General Internal Medicine 01/03/20 01/13/23 documented as of this encounter
--- OUTSIDE RECORDS SUMMARY | 2024-11-15 05:59 | XMS_ITS | Encounter Summary ---
Author Organization [facility] Address [address] [place] [address] Phone Care Team Providers Care Media Planner / Buyer Name Role Phone Modesto Reyez DO Primary Care Provider [phone] Encounter Details Date Type Department Care Team (Late st Contact Info) Description 06/07/2021 Telephone [facility]monary [facility] 8th [place] [address] [place] [address] Gwendolyn Bunch CMA Social History Tobacco Use Types Packs/Day Years Used Date Smoking Tobacco: Never Smokeless Tobacco: Never Alcohol Use Standard Drinks/Week Comments Not Currently 0 (1 standard drink = 0.6 oz pur e alcohol) Comments Unknown Sex and Gender Information Value Date Recorded Sex Assigned at Not on file Legal Sex Female 1:14 AM BROADCAST TRAFFIC COORDINATOR Gender Identity Female 05/04/2020 3:33 PM CDT Sexual Orientation Not on file documented as of this encounter Miscellaneous Notes * Telephone Encounter - Gwendolyn Bunch CMA - 06/08/2021 7:52 AM CDT error documented in this encounter Plan of Treatment Not on file documented as of this encounter Visit Diagnoses Not on filedocumented in this encounter Care Teams Media Planner / Buyer Relationship Specialty Start Date End Date Modesto Reyez DO PCP - General Internal Medicine 01/03/20 01/13/23 documented as of this encounter
--- OUTSIDE RECORDS SUMMARY | 2024-11-15 05:59 | XMS_ITS | Encounter Summary ---
Author Organization [facility] Address [address] [facility] [address] [place] [address] Care Team Providers Care Back Hanger Name Role Phone Modesto Reyez Primary Care Provider [phone] Reason for Visit * Reason Comments Hospital Follow Up A-fib,AKL,diastolic heart failure Encounter Details Date Type Department Care Team (Late st Contact Info) Description 02/09/2020 2:00 PM CDT Office Visit [facility] Cardiology [address] [facility] [address] [place] [id number] Yolanda Soto, ZULY [address] [place] [address] Persistent atrial fibrillation (Primary Dx); Chronic anticoagulation; Chronic diastolic congestive heart failure (CMS/HCC); Acute kidney injury (CMS/HCC) Social History Tobacco Use Types Packs/Day Years Used Date Smoking Tobacco: Never Smokeless Tobacco: Never Tobacco Cessation:Counseling Given: Yes Alcohol Use Standard Drinks/Week Comments Not Currently 0 (1 standard drink = 0.6 oz pur e alcohol) Comments Unknown Sex and Gender Information Value Date Recorded Sex Assigned at Not on file Legal Sex Female 1:14 AM PILE DRIVER OPERATOR HELPER Gender Identity Female 05/04/2020 3:33 PM CDT Sexual Orientation Not on file COVID-19 Exposure Response Date Recorded In the last month, have you been in contact with someone who was confirmed or suspected to have Coronavirus / COVID-19? No / Unsure 02/09/2020 1:38 PM CDT documented as of this encounter Last Filed Vital Signs Vital Sign Reading Time Taken Comments Blood Pressure 140/72 02/09/2020 2:16 PM CDT Pulse 59 02/09/2020 2:16 PM CDT Temperature - - Respiratory Rate - - Oxygen Saturation 97% 02/09/2020 2:16 PM CDT Inhaled Oxygen Concentration - - Weight 120.5 kg (265 lb 9.6 oz) 02/09/2020 2:16 PM CDT Height 157.5 cm (5' 2 ) 02/09/2020 2:16 PM CDT Body Mass Index 48.58 02/09/2020 2:16 PM CDT documented in this encounter Progress Notes * Yolanda Soto NP - 02/09/2020 2:00 PM CDT [facility] Cardiology [address] [place] [address] Date of Visit: 02/09/2020 Patient ID: Ayanna Cash 1950 Chief Complaint: Ayanna Cash is a 69 y.o. female who comes to the office for hospital follow-up appointment after she was treated for CHF and atrial fibrillation. History of Present Illness: Ayanna Cash is a 69 y.o. female with a past medical history of rheumatoid arthritis, hypertension, hyperlipidemia, morbid obesity, STARR, diastolic heart failure, atrial fibrillation, and interstitial lung disease. She was on amiodarone and digoxin in the past , she had also had a successful cardioversion in the past. [place]amed in September 2019 showed EF 60%. She was previously followed by Dr. Parker.Her instrument installer is Dr. Norman. Her plate take out worker is Dr. Kobe Gerard. She presented to [facility] on 01/01/2020 with complaint of worsening shortness of breath. Dr. Reyes met her in consultation. She was diuresed, improved and discharged to home. However, she presented back to the hospitalon 01/27/2020 with weakness and was found to be in acute kidney injury from dehydration (was takingspironolactone 50 mg daily and furosemide 40 mg [...] K was 4.4, BUN 24, creatinine 1.2. Records that I personally reviewed on the day of this visit include: (the interpretation is outlined in the HPI above) [facility] inpatient records from December and January 2020 including the cardiology consultation notes and progress notes, lab results, discharge summary. I have also reviewed: allergies, current medications, [...] for poor wound healing and rash. Musculoskeletal: Negative for joint pain and myalgias. Gastrointestinal: Negative for heartburn, nausea and vomiting. Genitourinary: Negative for hematuria. Neurological: Negative for dizziness, headaches and light-headedness. Psychiatric/Behavioral: Negative for depression. The patient is not nervous/anxious. Vital Signs: BP 140/72 (BP Location: Right arm, Patient Position: Sitting) Pulse 59 Ht 157.5 cm (5' 2 ) Wt120.5 kg (265 lb 9.6 oz) SpO2 97% BMI 48.58 kg/m?? Physical Exam Constitutional: She is oriented to person, place, and time. She appears well- developed. No distress. Morbidly obese body habitus. HENT: Head: Normocephalic and atraumatic. Nose: Nose normal. Mouth/Throat: Mucous membranes are normal. Eyes: Pupils are equal, round, and reactive to light. Conjunctivae and EOM are normal. No scleral icterus. Neck: Normal range of motion. No JVD present. No tracheal deviation present. Cardiovascular: Normal rate and normal heart sounds. An irregular rhythm present. No murmur heard. Pulmonary/Chest: Effort normal and breath sounds normal. No respiratory distress. Abdominal: Soft. Bowel sounds are normal. There is no abdominal tenderness. Musculoskeletal: Normal range of motion. General: Edema present. Comments: Mild bilateral lower extremity dependent edema. Ambulates with wheeled walker. Neurological: She is alert and oriented to person, place, and time. Skin: Skin is warm and dry. Psychiatric: She has a normal mood and affect. No Known Allergies Current Outpatient Medications: ??? cholecalciferol (Vitamin D3) 2000 unit tablet, Take 2,000 Units by mouth daily, Disp: , Rfl: ??? cyanocobalamin 2,000 mcg tablet, Take 2,000 mcg by mouth daily, Disp: , Rfl: ??? folic acid (FOLVITE) 1 mg tablet, Take 1 mg by mouth daily, Disp: , Rfl: ??? furosemide (LASIX) 40 mg tablet, Take 40 mg by mouth daily, Disp: , Rfl: ??? hydroxychloroquine (PLAQUENIL) 200 mg tablet, Take 400 mg by mouth daily, Disp: , Rfl: ??? levothyroxine (SYNTHROID) 112 mcg tablet, Take 112 mcg by mouth daily, Disp: , Rfl: ??? methotrexate 2.5 mg tablet, Take 2.5 mg by mouth once a week, Disp: , Rfl: ??? metoprolol XL (TOPROL-XL) 100 mg 24 hr tablet, Take 100 mg by mouth architecture internship before breakfast, Disp: , Rfl: ??? potassium chloride ER (potassium chloride ER) 10 mEq CR tablet, Take 10 mEq by mouth daily, Disp: , Rfl: ??? pravastatin (PRAVACHOL) 80 mg tablet, Take 80 mg by mouth daily, Disp: , Rfl: ??? traZODone (DESYREL) 50 mg tablet, Take 100 mg by mouth nightly, Disp: , Rfl: ??? warfarin (COUMADIN) 6 mg tablet, Take 6 mg by mouth daily, Disp: , Rfl: Assessment: Diagnoses and all orders for this visit: Persistent atrial fibrillation (Primary) Chronic anticoagulation Chronic diastolic congestive heart failure (CMS/HCC) Acute kidney injury (CMS/HCC) Plan/Recommendations: She has a history of persistent atrial fibrillation and currently her heart rate is well controlledwith metoprolol succinate 125 mg daily. I advised her to continue this dosage. She is on systemic oral anticoagulation with warfarin. Her PCP follows her INRs. Her recent INR wastherapeutic with warfarin 6 mg daily. Her chronic diastolic heart failure currently appears stable. She has a little bit of dependent edema in the lower extremities but her home weights are unchanged. I directed her to continue furosemide 40 mg daily, continue daily weights, follow the 2 L per day fluid restriction. Renal function is also improving. She is having home health care who is monitoring her blood chemistry and sending to PCP. She wishes to have ongoing cardiac care with Dr. Reyes here in our office. I will arrange for herto return for routine follow-up to see Dr. Reyes in 3 months. However, call us sooner with any questions or concerns and we can adjust this follow-up if needed. She verbalized understanding and agreed. CRISTEL Abdi- Nurse Practitioner with [facility] This note is dictated and transcribed using [employer]. Data Analytics Specialist variancesmay occur. Despite proofreading, typographical errors may occur. documented in this encounter Miscellaneous Notes * Addendum Note - Casandra Byrd MA - 02/09/2020 2:00 PM CDTAddended by: CASANDRA BYRD on: 02/09/2020 03:25 PM Modules accepted: Orders documented in this encounter Plan of Treatment Not on file documented as of this encounter Procedures Procedure Name Priority Date/Time Associated Diagnosis Comments POCT LIPID PANEL Routine 02/09/2020 3:26 PM CDT Chronic diastolic congestive heart failure (CMS/[facility]) documented in this encounter Results * POCT lipid panel (02/09/2020 3:26 PM CDT) Cholesterol, POC 166 mg/dL HDL, POC 78 mg/dL Triglycerides, POC 112 mg/dL LDL Cholesterol POC 65 mg/dL Chol/HDL Ratio, POC 2.1 Non-HDL Cholesterol, POC 88 mg/dL Cholesterol Total, POC 166 mg/dL Capillary blood 02/09/2020 3 :26 PM CDT Yolanda Soto NP POINT OF CARE TEST ORDERA BLES Edited Result - Final documented in this encounter Visit Diagnoses Diagnosis Persistent atrial fibrillation (HCC)- Primary Atrial fibrillation Chronic anticoagulation Encounter for long-term (current) use of anticoagulants Chronic diastolic congestive heart failure (CMS/[facility]) (HCC) Acute kidney injury (HCC) documented in this encounter Historical Medications * This list may reflect changes made after this encounter. cholecalciferol (VITAMIN D-3) 2000 unit tablet Take 0.5 tablets (1,000 Units total) by mouth daily levothyroxine (SYNTHROID) 112 mcg tablet Take 1 tablet (112 mcg total) by mouth daily 11/11/2019 pravastatin (PRAVACHOL) 80 mg tablet Take 1 tablet (80 mg total) by mouth daily 01/22/2020 potassium chloride ER (KLOR-CON) 10 mEq CR tablet Take 10 mEq by mouth daily 2 cyanocobalamin 2,000 mcg tablet Take 1,000 mcg by mouth daily 2 furosemide (LASIX) 40 mg tablet Take 40 mg by mouth daily 01/07/2020 0 folic acid (FOLVITE) 1 mg tablet Take 1 mg by mouth daily 12/14/2019 2 metoprolol XL (TOPROL-XL) 100 mg 24 hr tablet Take 100 mg by mouth architecture internship before breakfast 02/02/2020 0 warfarin (COUMADIN) 6 mg tablet Take 6 mg by mouth daily 02/02/2020 1 methotrexate 2.5 mg tablet Take 2.5 mg by mouth once a week Take 5 tablets once weekly 01/21/2020 2 hydroxychloroqui ne (PLAQUENIL) 200 mg tablet Take 1 tablet (200 mg total) by mouth 2 (two) times a day 11/26/2019 4 traZODone (DESYREL) 50 mg tablet Take 100 mg by mouth nightly 12/25/2019 0 added in this encounter Care Teams Back Hanger Relationship Specialty Start Date End Date Modesto Reyez DO PCP - General Internal Medicine 01/03/20 01/13/23 documented as of this encounter
--- OUTSIDE RECORDS SUMMARY | 2024-11-15 05:59 | XMS_ITS | Encounter Summary ---
Author Organization [facility] Address [address] [place] [address] Phone Care Team Providers Care Extrusion Machine Operator Name Role Phone Modesto Reyez DO Primary Care Provider [phone] Ni Armas RN Unavailable Lizette Liliana Prakash MD Primary Care Provider [phone] Timothy Donis MD Primary Care Provider [phone] Encounter Details Date Type Department Care Team (Latest Contact Info) Description 01/02/2020 Orders Only [facility] Scanning, Provider Social History Tobacco Use Types Packs/Day Years Used Date Smoking Tobacco: Never Assessed Comments Unknown Sex and Gender Information Value Date Recorded Sex Assigned at Not on file Legal Sex Female 1:14 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 05/22/2022 05/27/2022 06/17/2022 3:05 AM CDT COVID: Recovered Comment:Added based on recent COVID infection. 06/17/2022 06/18/2022 10/15/2022 3:[address] documented as of this encounter Care Teams Extrusion Machine Operator Relationship Specialty Start Date End Date Modesto Reyez DO PCP - General Internal Medicine 01/03/20 01/13/23 Liliana Baron MD PCP - General Internal Medicine 01/14/23 04/11/23 Timothy Donis MD PCP - General Family Practice 04/12/23 Ni Armas, RN Registered Nurse Pulmonary Disease 01/11/23 documented as of this encounter
--- OUTSIDE RECORDS SUMMARY | 2024-11-15 05:59 | XMS_ITS | Encounter Summary ---
Author Organization [facility] Address [address] [facility] [address] [place] [address] Care Team Providers Care Chemist Organic Name Role Phone Modesto Reyez Primary Care Provider [phone] Encounter Details Date Type Department Care Team (Late st Contact Info) Description 05/15/2020 Orders Only [facility] Cardiology [address] [facility] [address] [place] [address] ProviderJoon MD [address] [place], [place] [id number] Social History Tobacco Use Types Packs/Day Years Used Date Smoking Tobacco: Never Smokeless Tobacco: Never Alcohol Use Standard Drinks/Week Comments Not Currently 0 (1 standard drink = 0.6 oz pur e alcohol) Comments Unknown Sex and Gender Information Value Date Recorded Sex Assigned at Not on file Legal Sex Female 1:14 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 Gender Identity Female 05/04/2020 3:33 PM CDT Sexual Orientation Not on file documented as of this encounter Plan of Treatment Not on file documented as of this encounter Procedures Procedure Name Priority Date/Time Associated Diagnosis Comments PROTIME-INR Routine 04/26/2020 8:13 AM CDT PROTIME-INR Routine 04/19/2020 8:06 AM CDT documented in this encounter Results * Protime-INR (04/26/2020 8:13 AM CDT) SCRIBED PT 26.5 L - H sec EXTERNAL LAB SCRIBED INR 2.5 L - H sec EXTERNAL LAB Blood specimen (specimen) us Historical Provider MD LAB BLOOD ORDERABLES Edit ed Result - Final EXTERNAL LAB * Protime-INR (04/19/2020 8:06 AM CDT) SCRIBED PT 20.9 L - H sec EXTERNAL LAB SCRIBED INR 1.9 L - H sec EXTERNAL LAB Blood specimen (specimen) Historical Provider LAB BLOOD ORDERABLES Edit ed Result - Final EXTERNAL LAB documented in this encounter Visit Diagnoses Not on filedocumented in this encounter Care Teams Chemist Organic Relationship Specialty Start Date End Date Modesto Reyez DO PCP - General Internal Medicine 01/03/20 01/13/23 documented as of this encounter
--- OUTSIDE RECORDS SUMMARY | 2024-11-15 05:59 | XMS_ITS | Encounter Summary ---
Author Organization [facility] Address [address] [facility] [address] [place] [address] Care Team Providers Care Piping Designer Name Role Phone Modesto Reyez DO Primary Care Provider [phone] Reason for Visit * Reason Onset Date Comments Need to r/s appt on 07/20/21 07/17/2021 Encounter Details Date Type Department Care Team (Late st Contact Info) Description 07/17/2021 Telephone [facility] Cardiology [address] [facility] [address] [place] [address] Noa Cohen MA Need to r/s appt on 07/20/21 Social History Tobacco Use Types Packs/Day Years Used Date Smoking Tobacco: Never Smokeless Tobacco: Never Alcohol Use Standard Drinks/Week Comments Not Currently 0 (1 standard drink = 0.6 oz pur e alcohol) Comments Unknown Sex and Gender Information Value Date Recorded Sex Assigned at Not on file Legal Sex Female 1:14 AM 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 AD starting clinic late that morning. VM not setup [phone] No answer [phone] documented in this encounter Plan of Treatment Not on file documented as of this encounter Visit Diagnoses Not on filedocumented in this encounter Care Teams Piping Designer Relationship Specialty Start Date End Date Modesto Reyez DO PCP - General Internal Medicine 01/03/20 01/13/23 documented as of this encounter
--- OUTSIDE RECORDS SUMMARY | 2024-11-15 05:59 | XMS_ITS | Encounter Summary ---
Author Organization [facility] Care Team Providers Care Truck Chauffeur Name Role Phone Modesto Reyez DO Primary Care Provider Encounter Details Date Type Department Care Team (Latest Contact Info) Description 02/09/2020 Travel Social History Tobacco Use Types Packs/Day Years Used Date Smoking Tobacco: Never Smokeless Tobacco: Never Alcohol Use Standard Drinks/Week Comments Not Currently 0 (1 standard drink = 0.6 oz pur e alcohol) Comments Unknown Sex and Gender Information Value Date Recorded Sex Assigned at Not on file Legal Sex Female 1:14 AM HEAD WAITRESS Gender Identity Female 05/04/2020 3:33 PM CDT Sexual Orientation Not on file COVID-19 Exposure Response Date Recorded In the last month, have you been in contact with someone who was confirmed or suspected to have Coronavirus / COVID-19? No / Unsure 02/09/2020 1:38 PM CDT documented as of this encounter Plan of Treatment Not on file documented as of this encounter Visit Diagnoses Not on filedocumented in this encounter Care Teams Truck Chauffeur Relationship Specialty Start Date End Date Modesto Reyez DO PCP - General Internal Medicine 01/03/20 01/13/23 documented as of this encounter
--- OUTSIDE RECORDS SUMMARY | 2024-11-15 06:20 | XMS_ITS | Encounter Summary ---
Author Organization [facility] Address [address] [place] [address] Care Team Providers Care Senior Nurse Manager Name Role Phone Unavailable Primary Care Provider Unavailabl e Encounter Details Date Type Department Care Team (Late st Contact Info) Description 10/23/2024 Orders Only [facility] Heart [facility] V[facility] - [address] [place] [address] Clarisa Cook Social History Tobacco Use Types Packs/Day Years Used Date Smoking Tobacco: Never Smokeless Tobacco: Never Alcohol Use Standard Drinks/Week Comments Not Currently 0 (1 standard drink = 0.6 oz pur e alcohol) Sex and Gender Information Value Date Recorded Sex Assigned at Female 11/03/2024 11:06 AM DOMESTIC VIOLENCE ADVOCATE Gender Identity Female 11/03/2024 11:06 AM DOMESTIC VIOLENCE ADVOCATE Sexual Orientation Not on file documented as of this encounter Plan of Treatment Upcoming Encounters Date Type Department Care Team (Late st Contact Info) Description 12/24/2024 8:00 AM DOMESTIC VIOLENCE ADVOCATE Office Visit [facility] Heart and Vascular - [address] [place] [address] Myles Reyes MD [address] [place] [address] documented as of this encounter Visit Diagnoses Not on filedocumented in this encounter
--- OUTSIDE RECORDS SUMMARY | 2024-11-15 06:20 | XMS_ITS | Encounter Summary ---
Author Organization [facility] Address [address] [place] [address] Care Team Providers Care Professor Of Literacy Name Role Phone Unavailable Primary Care Provider Unavailabl e Encounter Details Date Type Department Care Team (Late st Contact Info) Description 08/13/2024 Orders Only [facility] Vascular - [address] [place] [address] Daja Bajwa LPN [address] [place] [address] Chronic diastolic heart failure; Elevated serum creatinine Social History Tobacco Use Types Packs/Day Years Used Date Smoking Tobacco: Never Smokeless Tobacco: Never Alcohol Use Standard Drinks/Week Comments Not Currently 0 (1 standard drink = 0.6 oz pur e alcohol) Sex and Gender Information Value Date Recorded Sex Assigned at Female 11/03/2024 11:06 AM ELECTRIC DISTRIBUTION ENGINEER Gender Identity Female 11/03/2024 11:06 AM ELECTRIC DISTRIBUTION ENGINEER Sexual Orientation Not on file documented as of this encounter Plan of Treatment Upcoming Encounters Date Type Department Care Team (Late st Contact Info) Description 12/24/2024 8:00 AM ELECTRIC DISTRIBUTION ENGINEER Office Visit [facility] - [address] [place] [address] Myles Reyes MD [address] [place] [address] documented as of this encounter Procedures Procedure Name Priority Date/Time Associated Diagnosis Comments BASIC METABOLIC PANEL Routine 08/13/2024 1:24 PM CDT Chronic diastolic heart failure Elevated serum creatinine documented in this encounter Results * BASIC METABOLIC PANEL (08/13/2024 1:24 PM CDT) Blood 08/13/2024 1:24 PM CDT Myles Reyes MD CHEMISTRY ORDERA [facility] Organization Address City/State/ZIP Co de Phone Number NON [facility] documented in this encounter Visit Diagnoses Diagnosis Chronic diastolic heart failure Elevated serum creatinine Other nonspecific findings on examination of blood documented in this encounter
--- OUTSIDE RECORDS SUMMARY | 2024-11-15 06:20 | XMS_ITS | Encounter Summary ---
Author Organization [facility] Address [address], [place] [address] Phone Care Team Providers Care Operator Helper Name Role Phone Modesto Reyez Primary Care Provider [phone] Encounter Details Date Type Department Care Team (Late st Contact Info) Description 08/22/2022 1:15 PM CDT Office Visit [facility] Nephrology and Hypertension [address] [place] [address], [address] [place] [address] Ariana Franco MD [address] [facility], [address] [place] [address] Chronic kidney disease stage 3B (CMS-HCC); Benign hypertension with chronic kidney disease Social History Tobacco Use Types Packs/Day Years Used Date Smoking Tobacco: Never Smokeless Tobacco: Never Alcohol Use Standard Drinks/Week Comments Never 0 (1 standard drink = 0.6 oz pur e alcohol) AUDIT-C Answer Date Recorded Q1: How often do you have a drink containing alc ohol? Never 08/04/2020 Average Number of Drinks Not on file 020 Frequency of Binge Drinking Not on file 07/26 Sex and Gender Information Value Date Recorded Sex Assigned at Not on file Gender Identity Not on file Sexual Orientation Not on file documented as of this encounter Last Filed Vital Signs Vital Sign Reading Time Taken Comments Blood Pressure 110/62 08/22/2022 1:15 PM CDT Pulse - - Temperature 36.9 ??C (98.4 ??F) 08/22/2022 1:15 PM CD T Respiratory Rate 18 08/22/2022 1:15 PM CDT Oxygen Saturation - - Inhaled Oxygen Concentration - - Weight 109 kg (240 lb) 08/22/2022 1:15 PM CDT Height 160 cm (5' 3 ) 08/22/2022 1:15 PM CDT Body Mass Index 42.51 08/22/2022 1:15 PM CDT documented in this encounter Progress Notes * Ariana Franco MD - 08/22/2022 1:15 PM CDT FOLLOW-UP OFFICE VISIT Patient: Ayanna Cash Birthdate: 1950 PCP: Modesto Reyez DO Visit Date: 08/22/2022 INTERIM HISTORY Ayanna Cash here for follow-up regarding her chronic kidney disease. I last saw her during her recent hospitalization at [facility] for MIKE thought to be secondary dehydration. Creatining improved with holding lasix but edema returned so diuretics restarted. Since discharge, her diuretics have been titrated to optimize her volume status. She seems to be doing resonably well since last seen.. No apparent distress or concerns to mention at this time. No issues or other matters communicated on this clinic visit. Past medical history, social history and family history has not changed since previous visit. ALLERGIES No Known Allergies MEDICATIONS Current Outpatient Medications: ??? Abatacept (Orencia ClickJect) 125 MG/ML solution auto-injector, , Disp: , Rfl: ??? furosemide (LASIX) 20 MG tablet, , Disp: , Rfl: ??? metoprolol succinate XL (Toprol XL) 25 MG 24 hr tablet, , Disp: , Rfl: ??? phenazopyridine (PYRIDIUM) 200 MG tablet, TAKE 1 TABLET BY MOUTH THREE TIMES DAILY NEEDED FOR URINARY SYMPTOMS, Disp: , Rfl: ??? potassium chloride (MICRO-K) 10 MEQ CR capsule, , Disp: , Rfl: ??? trimethoprim (TRIMPEX) 100 MG tablet, Take 100 mg by mouth daily, Disp: , Rfl: ??? apixaban (Eliquis) 5 MG tablet, Take 5 mg by mouth 2 times daily, Disp: , Rfl: ??? Calcium Carbonate-Vit D-Min (CALCIUM 600+D PLUS MINERALS) 600-400 MG-UNIT tablet, Take by mouth, Disp: , Rfl: ??? cholestyramine (QUESTRAN) 4 g packet, , Disp: , Rfl: ??? ciprofloxacin (CIPRO) 500 MG tablet, , Disp: , Rfl: ??? codeine 30 MG tablet, , Disp: , Rfl: ??? Cyanocobalamin ER (B-12 TR) 2000 MCG tablet controlled-release, Take 2,000 mcg by mouth daily, Disp: , Rfl: ??? DULoxetine (CYMBALTA) [address] capsule, Take 20 mg by mouth 1 (one) time each day, Disp: , Rfl: ??? hydroxychloroquine (PLAQUENIL) 200 MG tablet, TK 1 T PO BID, Disp: , Rfl: ??? levothyroxine (SYNTHROID, LEVOTHROID) 112 MCG tablet, TK 1 T PO QD, Disp: , Rfl: ??? lisinopril (PRINIVIL) 5 MG tablet, , Disp: , Rfl: ??? potassium chloride (KLOR-CON M20) 20 MEQ CR tablet, , Disp: , Rfl: ??? pravastatin (PRAVACHOL) 80 MG tablet, TK 1 T PO D, Disp: , Rfl: ??? predniSONE (DELTASONE) 5 MG tablet, , Disp: , Rfl: ??? traMADol (ULTRAM) 50 MG tablet, Take 50 mg by mouth every 8 (eight) hours if needed for pain, Disp: , Rfl: REVIEW OF SYSTEMS Constitutional: No fever, weight loss or gain, no fatigue. No loss of appetite. Cardiovascular: No chest pain. No Orthopnea, PND. Respiratory: No cough, no sputum production, no SOB or FALCON. : No dysuria or gross hematuria. No frequency or urgency. No nocturia. Skin: No rash or itching. VITALS BP 110/62 (BP Location: Right arm, Patient Position: Sitting) Temp 98.4 ??F (36.9 ??C) Resp 18 Ht 5' 3 (1.6 m) Wt 240 lb (109 kg) BMI 42.51 kg/m?? BSA 2.2 m?? PHYSICAL EXAM General: Comfortable and in no acute distress Cardiovascular: Normal S1, S2; no rub Respiratory: Clear bilaterally Abdominal: Soft, non-tender, non-distended; positive bowel sounds Extremities: No cyanosis, clubbing, or edema Skin: No rash or nodules RECENT LABS/IMAGING Lab Results Component Value Date BUN 39 08/20/2022 CREATININE 1.6 08/20/2022 EGFRAA 51 01/31/2022 EGFR 32 08/20/2022 NA 141 08/20/2022 K 3.1 08/20/2022 CL 100 08/20/2022 CO2 28 08/20/2022 CA 10.1 08/20/2022 PHOSPHATE 3.1 08/20/2022 ALBUMIN 4.1 08/20/2022 GLUCOSE 87 08/20/2022 PROTCREATUR 100 08/20/2022 PTH 69.8 08/20/2022 VITD 53 08/20/2022 01/28/20 Renal U/S: right kidney 10cm, left kidney 10.9cm; right renal cyst but no hydronephrosis present. Creatinine, Serum/Plasma Date Value Ref Range Status 08/20/2022 1.6 mg/dL Final 01/31/2022 1.2 mg/dL Final 01/09/2022 1.3 mg/dL Final 11/08/2021 1.1 mg/dL Final 12/22/2020 1.4 mg/dL Final 08/29/2020 1.6 mg/dL Final 07/27/2020 1.5 mg/dL Final 06/06/2020 1.2 mg/dL Final ASSESSMENT 1. Chronic kidney disease stage 3B (CMS-HCC) 2. Benign hypertension with chronic kidney disease DISCUSSION/PLAN Ayanna has chronic kidney disease/renal insufficiency. ?? It would seem the necessity of diuretic therapy to maintain her volume status given her diastolic heart failure likely precipitated by her pulmonary hypertension and suspected obstructive sleep apneais the main reason why her kidney function is abnormal. Her evaluation to date demonstrates a normal renal ultrasound, no significant proteinuria, and a negative serological evaluation. Her creatinine tends to run ~ 1.2 - 1.6mg/dl. To help reduce the rate of kidney deterioration: Control BP: follow trend Control LDL cholesterol: on statin Control Intact PTH: in range with adequate Vitamin D Use GEORGI/ARB: consider if BP rises Low protein diet: not an issue Benefits of slowing renal deterioration reviewed with patient in laymen's terms. Lowering blood pressure, controlling diabetes, and controlling cholesterol reduce insults to the kidney. Low protein diet helps take excess workload off of the kidney. GEORGI/ARB help to decrease pressure in kidney and also decrease hormones that cause scar formation. Blood Pressure for this visit is 110/62. The follow up plan to address blood pressure is follow trend. Body mass index is 42.51 kg/m??. Follow up plan to address BMI is diet/exercise as tolerated. Continue current medications Repeat labs prior to next visit Tiffanie Franco MD documented in this encounter Plan of Treatment Not on file documented as of this encounter Procedures Procedure Name Priority Date/Time Associated Diagnosis Comments PTH, INTACT W/ CALCIUM Routine 08/20/2022 VITAMIN D, 1, 25-DIHYDROXY Routine 08/20/2022 TOTAL PROTEIN W/ CREATININE, URINE, RANDOM Routine 08/20/2022 RENAL FUNCTION PANEL (RFP) Routine 08/20/2022 documented in this encounter Results * PTH, Intact w/ Calcium (08/20/2022) PTH, Intact, Serum/Plasma 69.8 ng/L EXTERNAL LAB (NON-INTERFACE D) Historical Provider MD LAB BLOOD ORDERAB LES Performing Organization Address [facility] Co de Phone Number EXTERNAL LAB (NON-INTERFACED) * Vitamin D, 1, 25-Dihydroxy (08/20/2022) 25-Hydroxyvitam in D2+25-Hydroxyvi tamin D3, Serum/Plasma 53 ng/mL EXTERNAL LAB (NON-INTERFACE D) Historical Provider MD LAB BLOOD ORDERAB LES EXTERNAL LAB (NON-INTERFACED) * Total Protein w/ Creatinine, Urine, Random (08/20/2022) Protein/Creati nine, Urine 100 mg/g creatinine EXTERNAL LAB (NON-INTERFAC ED) Historical Provider MD LAB URINE ORDERAB LES Performing Organization Address City/[facility]/ZIP Co de Phone Number EXTERNAL LAB (NON-INTERFACED) * Renal Function Panel (RFP) (08/20/2022) Albumin, Serum/Plasma 4.1 g/L EXTERNAL LAB (NON-INTERFACE D) Calcium, Serum/Plasma 10.1 mg/dL EXTERNAL LAB (NON-INTERFACE D) Carbon dioxide CO2), total, Serum/Plasma 28 mmol/L EXTERNAL LAB (NON-INTERFACE D) Chloride, Serum/Plasma 100 mmol/L EXTERNAL LAB (NON-INTERFACE D) Creatinine, Serum/Plasma 1.6 mg/dL EXTERNAL LAB (NON-INTERFACE D) Glucose, Serum/Plasma 87 mg/dL EXTERNAL LAB (NON-INTERFACE D) Phosphate, Serum/Plasma 3.1 mg/dL EXTERNAL LAB (NON-INTERFACE D) Potassium, Serum/Plasma 3.1 mmol/L EXTERNAL LAB (NON-INTERFACE D) Sodium, Serum/Plasma 141 mmol/L EXTERNAL LAB (NON-INTERFACE D) Urea nitrogen, Serum/Plasma (BUN) 39 mg/dL EXTERNAL LAB (NON-INTERFACE D) eGFR, non 32 mL/min EXTERNAL LAB (NON-INTERFACE D) Blood (Blood, Venous) Historical Provider MD LAB BLOOD ORDERAB LES EXTERNAL LAB (NON-INTERFACED) documented in this encounter Visit Diagnoses Diagnosis Chronic kidney disease stage 3B (CMS-HCC) Benign hypertension with chronic kidney disease documented in this encounter Care Teams Operator Helper Relationship Specialty Start Date End Date Modesto Reyez DO [address] [place] [id number] PCP - General Internal Medicine 06/16/20 documented as of this encounter
--- OUTSIDE RECORDS SUMMARY | 2024-11-15 06:20 | XMS_ITS | Encounter Summary ---
Author Organization [facility] Address [address] [place] [address] Care Team Providers Care Narrow Gauge Operator Name Role Phone Unavailable Primary Care Provider Unavailabl e Reason for Visit * Reason Onset Date Comments Medication Refill 08/14/2024 Encounter Details Date Type Department Care Team (Late st Contact Info) Description 08/14/2024 Refill [facility] Heart and Vascular - [address] [place] [address] Myles Reyes MD [address] [place] [address] Social History Tobacco Use Types Packs/Day Years Used Date Smoking Tobacco: Never Smokeless Tobacco: Never Alcohol Use Standard Drinks/Week Comments Not Currently 0 (1 standard drink = 0.6 oz pur e alcohol) Sex and Gender Information Value Date Recorded Sex Assigned at Female 11/03/2024 11:06 AM MAKE UP ARRANGER Gender Identity Female 11/03/2024 11:06 AM MAKE UP ARRANGER Sexual Orientation Not on file documented as of this encounter Plan of Treatment Upcoming Encounters Date Type Department Care Team (Late st Contact Info) Description 12/24/2024 8:00 AM MAKE UP ARRANGER Office Visit [facility] Heart and Vascular - [address] [place] [address] Myles Reyes MD [address] [place] [address] documented as of this encounter Visit Diagnoses Not on filedocumented in this encounter
--- OUTSIDE RECORDS SUMMARY | 2024-11-15 06:20 | XMS_ITS | Encounter Summary ---
Author Organization [facility] Address [address] [place] [address] Care Team Providers Care Recreation Coordinator Name Role Phone Unavailable Primary Care Provider Unavailabl e Encounter Details Date Type Department Care Team (Late st Contact Info) Description 07/28/2024 Orders Only [facility] Heart and Vascular - [address] [place] [address] Daja Bajwa LPN [address] [place] [address] Chronic heart failure with preserved ejection fraction Social History Tobacco Use Types Packs/Day Years Used Date Smoking Tobacco: Never Smokeless Tobacco: Never Alcohol Use Standard Drinks/Week Comments Not Currently 0 (1 standard drink = 0.6 oz pur e alcohol) Sex and Gender Information Value Date Recorded Sex Assigned at Female 11/03/2024 11:06 AM GENERAL OFFICE ASSOCIATE Gender Identity Female 11/03/2024 11:06 AM GENERAL OFFICE ASSOCIATE Sexual Orientation Not on file documented as of this encounter Plan of Treatment Upcoming Encounters Date Type Department Care Team (Late st Contact Info) Description 12/24/2024 8:00 AM GENERAL OFFICE ASSOCIATE Office Visit [facility] Heart and Vascular - [address] [place] [address] Myles Reyes MD [address] [place] [address] documented as of this encounter Visit Diagnoses Diagnosis Chronic heart failure with preserved ejection fraction documented in this encounter
--- OUTSIDE RECORDS SUMMARY | 2024-11-15 06:20 | XMS_ITS | Encounter Summary ---
Author Organization [facility] Address [address] [place] [phone] Phone Care Team Providers Care Low Pressure Kettle Operator Name Role Phone Modesto Reyez DO Primary Care Provider [phone] Encounter Details Date Type Department Care Team (Latest Contact Info) Description 12/25/2022 Travel Social History Tobacco Use Types Packs/Day [...] on file Sexual Orientation Not on file COVID-19 Exposure Response Date Recorded In the last 10 days, have yo u been in contact with someone who was confirmed or suspected to have Coronavirus/COVID-19? No / Unsure 12/25/2022 10:13 AM NUCLEAR MEDICINE OFFICER documented as of this encounter Plan of Treatment Not on file documented as of this encounter Visit Diagnoses Not on filedocumented in this encounter Care Teams Low Pressure Kettle Operator Relationship Specialty Start Date End Date Modesto Reyez DO [address] [place] [address] PCP - General Internal Medicine 06/16/20 documented as of this encounter
--- OUTSIDE RECORDS SUMMARY | 2024-11-15 06:20 | XMS_ITS | Encounter Summary ---
Author Organization [facility] Address [address] [place] [address] Care Team Providers Care Manager Valuation Name Role Phone Unavailable Primary Care Provider Unavailabl e Encounter Details Date Type Department Care Team (Late st Contact Info) Description 08/31/2024 Orders Only [facility] Heart and Vascular - [address] [place] [address] Daja Bajwa LPN [address] [place] [address] Chronic diastolic heart failure Social History Tobacco Use Types Packs/Day Years Used Date Smoking Tobacco: Never Smokeless Tobacco: Never Alcohol Use Standard Drinks/Week Comments Not Currently 0 (1 standard drink = 0.6 oz pur e alcohol) Sex and Gender Information Value Date Recorded Sex Assigned at Female 11/03/2024 11:06 AM PROCESS IMPROVEMENT ANALYST Gender Identity Female 11/03/2024 11:06 AM PROCESS IMPROVEMENT ANALYST Sexual Orientation Not on file documented as of this encounter Plan of Treatment Upcoming Encounters Date Type Department Care Team (Late st Contact Info) Description 12/24/2024 8:00 AM PROCESS IMPROVEMENT ANALYST Office Visit [facility] Heart and Vascular - [address] [place] [address] Myles Reyes MD [address] [place] [address] documented as of this encounter Visit Diagnoses Diagnosis Chronic diastolic heart failure documented in this encounter
--- OUTSIDE RECORDS SUMMARY | 2024-11-15 06:20 | XMS_ITS | Encounter Summary ---
Author Organization [facility] Address [address] [place] [address] Care Team Providers Care Shock Absorption Floor Layer Name Role Phone Unavailable Primary Care Provider Unavailabl e Reason for Visit * Reason Comments Irregular Heart Beat 6mth f/u from [facility] SUBHASH leg swelling worse in the L, L side goes numb. Encounter Details Date Type Department Care Team (Late st Contact Info) Description 06/19/2024 9:30 AM CDT Office Visit [facility] - [address] [place] [address] Myles Reyes MD [address] [place] [address] Chronic heart failure with preserved ejection fraction (Primary Dx); Longstanding persistent atrial fibrillation; Primary hypertension; Mixed hyperlipidemia; Chronic interstitial lung disease; Rheumatoid arthritis, involving unspecified site, unspecified whether rheumatoid factor present; Chronic anticoagulation; History of pulmonary embolism; Body mass index 40.0-44.9, adult Social History Tobacco Use Types Packs/Day Years Used Date Smoking Tobacco: Never Smokeless Tobacco: Never Alcohol Use Standard Drinks/Week Comments Not Currently 0 (1 standard drink = 0.6 oz pur e alcohol) Sex and Gender Information Value Date Recorded Sex Assigned at Female 11/03/2024 11:06 AM HEAD OF HUMAN RESOURCES Gender Identity Female 11/03/2024 11:06 AM HEAD OF HUMAN RESOURCES Sexual Orientation Not on file documented as of this encounter Last Filed Vital Signs Vital Sign Reading Time Taken Comments Blood Pressure 104/54 06/19/2024 9:40 AM CDT Pulse 57 06/19/2024 9:40 AM CDT Temperature - - Respiratory Rate - - Oxygen Saturation 95% 06/19/2024 9:40 AM CDT Inhaled Oxygen Concentration - - Weight 111.1 kg (245 lb) 06/19/2024 9:40 AM CDT Height 157.5 cm (5' 2 ) 06/19/2024 9:40 AM CDT Body Mass Index 44.81 06/19/2024 9:40 AM CDT documented in this encounter Progress Notes * Myles Reyes MD - 06/19/2024 9:40 AM CDTAssociated Order(s): EKG Post-Procedure Diagnose(s): Chronic heart failure with preserved ejection fraction; Longstanding persistent atrial fibrillation [facility] Heart [facility] Vascular Cardiology Outpatient Consultation Note Date of Service: 06/19/24 Primary Care Physician: No primary care provider on file. Referring Physician: No ref. provider found Chief Complaint Patient presents with Irregular Heart Beat 6mth f/u from [facility]. SUBHASH leg swelling worse in the L, L side goes numb. History of Present Illness: Patient is a pleasant 74 y.o. female with a PMHx significant for rheumatoid arthritis, hypertension, hyperlipidemia, morbid obesity, STARR, diastolic heart failure, atrial fibrillation, and interstitial lung disease. She was on amiodarone and digoxin in the past , she had also had a successful cardioversion in the past. Mahamed in September 2019 showed EF 60%. She was previously followed by Dr. Parker. Her driver trainer is Dr. Norman. Her single stroke preformer is Dr. Kobe Gerard. She presented to [facility] on 01/01/2020 with complaint of worsening [...] metoprolol was set 125 mg daily and herfurosemide was restarted at 40 mg daily. Spironolactone was discontinued. OLD RECORDS care everywhere [facility]: 02/09/20 HFU w/ CAT- she comes to [...] CPAP machine nightly, but sometimes remove sit detention through the night. PCP follows her INRs [...] trying to lose some weight, following a [id number] Na restriction. Now using a foot pedal [...] 09/29/21 CAT visit-On 09/21/21 she went to [facility] ER for complaint of worsening shortnessof [...] Norman has referred her to pulmonology at [facility] and that appointment is next month. 12-lead ECG performed in the office today was independently interpreted by me and showed sinus rhythm, normal axis and normal intervals, rate 88 beats per minute 11/02/21 Says not feeling any better at all after admission to [facility] with influenza B hurts to doeverything takes a lot out of her, no energy or appetite, SOB same as before. Attributes a lot to being off her pain meds including Hydroxychloroquine and Methotrexate for a while while in hospital. On CPAP. Not much edema though. Pain is mostly in shoulders and hands. Uses heating pad and Tylenol.Saw PCP recently. Sees Pulm at [place] tomorrow. Using 2L O2 at rest 4L O2 with activity. She notes her O2 drops to 85% on 4L still. Rheum adjusting meds on prednisone for 1 week without noted improvement thus far. Has PT coming into home. 04/17/22 Admitted to [place] with ILD and CHF admits she hasn't [...] CAT visit - she was hospitalized at [place] 05/25-05/26 for pulmonary edema, tested positive for COVID, treated for rib fractures due to a fall 2 days prior. Then hospitalized at [facility] 05/27-06/07for treatment of pneumonia (bacterial verses COVID) / COPD exacerbation, diastolic heart failure exacerbation. She became bradycardic on telemetry (heart rate 30-40 with pause up to 3 seconds) so remdesivir was stopped and metoprolol was stopped. IV furosemide caused MIKE so she was discharged without furosemide but it has since been restarted in senior care rehab (currently she is at [facility] in [place]). When she is doing physical therapy her [...] and atrial flutter with RVR. Went to [facility] after February admission then back to [place] in March after and she feels diet at [facility] is to fault and salty. Cough is incessant at [facility]. Has blood in stool reported soUGI recommended discharge yesterday on Dilt 300mg daily and Toprol XL 150mg Lasix 40mg BID Echo with EF 27% but in AF with RVR. Extensively reviewed [facility] records. Patient's daughter veryconcerned about her [...] them. Today she had an appointment at [facility] with her driver trainer so she has not been able to [...] better helping her. No bleeding. Meds same. Patient is now being seen in very kind consultation request by No primary care provider on file. for my opinion regarding atrial fibrillation, heart failure. Initial visit 06/19/24: having trouble getting around back pain told possible pinched nerve planningon MRI soon. Denies new issues with breathing which is chronically a problem, wearing O2. No chest pain or palpitations. She confirms she is taking Entresto and not lisinopril. Mild edema but no change. Her weight is up and she admits that she is not active even less so than before her legs always in dependent position, and she has not been consistent with her diet and watching her salt as before. She is compliant with Lasix 40 mg twice daily. She reports recurrent UTIs and chronic indwelling Paige catheter. Dresses quite expensive. No bleeding. Sees nephrology next week, blood work at that time. Past Medical History: Past Medical History: Diagnosis Date A-fib Social History: Social History Tobacco Use Smoking status: Never Smokeless tobacco: Never Substance Use Topics Alcohol use: Not Currently Family History: No family history on file. Past Surgical History: Past Surgical History: Procedure Laterality Date HX HEART CATHETERIZATION Allergies: No Known Allergies Current Medications: Current Outpatient Medications on File Prior to Visit Medication Sig Dispense Refill abatacept (Orencia ClickJect) 125 mg/mL Auto-Injector Inject 125 mg by subcutaneous injection. apixaban (Eliquis) 5 mg tablet Cholestyramine Light 4 gram Powder in Packet MIX 1 PACKET WITH LIQUID AND DRINK EVERY DAY WITH A MEAL. AVOID OTHER MEDS WITHIN 1 HOUR BEFORE OR 4 TO 6 HOURS AFTER DOSE diltiaZEM (CARDIZEM CD) 300 mg Controlled Delivery 24 hour capsule Take 300 mg by mouth daily. DULoxetine (CYMBALTA) 20 mg Capsule, Delayed Release(E.C.) Take 20 mg by mouth daily. furosemide (LASIX) 40 mg tablet Take 40 mg by mouth 2 times daily. hydroxychloroquine (PLAQUENIL) 200 mg tablet Take 200 mg by mouth 2 times daily. levothyroxine 112 mcg tablet Take 1 Tablet by mouth daily. pantoprazole (PROTONIX) 40 mg Tablet, Delayed Release (E.C.) Take 40 mg by mouth daily. pravastatin (PRAVACHOL) 80 mg tablet Take 80 mg by mouth daily at bedtime. predniSONE (DELTASONE) 2.5 mg tablet Take 2.5 mg by mouth daily. sacubitriL-valsartan (ENTRESTO) 24-26 mg Tablet Take 1 Tablet by mouth 2 times daily. acetaminophen 325 mg Capsule Take by mouth. alendronate (FOSAMAX) 70 mg tablet TAKE 1 TABLET BY MOUTH ONCE WEEKLY ON SATURDAYS Calcium Carbonate-Vit D3-Min 600 mg calcium- 400 unit Tablet Take by mouth 2 times daily. cephALEXin (KEFLEX) 250 mg capsule Take 250 mg by mouth daily. cholecalciferol, Vitamin D3, 50 mcg (2,000 unit) Tablet Take 1,000 Units by mouth daily. cyanocobalamin 1,000 mcg Tablet Take 1,000 mcg by mouth daily. metoprolol succinate (TOPROL XL) 100 mg Extended Release 24 hour tablet TAKE 1 TABLET BY MOUTH DAILY ALONG WITH 50MG metoprolol succinate (TOPROL XL) 50 mg Extended Release 24 hour tablet Take 50 mg by mouth daily. potassium chloride (KLOR-CON M20) 20 mEq Extended Release tablet Take 20 mEq by mouth 2 times daily. traMADoL (ULTRAM) 50 mg tablet Take 50 mg by mouth every 8 hours as needed for Pain. [DISCONTINUED] lisinopriL (PRINIVIL) 5 mg tablet No current facility-administered medications on file prior to visit. Review of Systems: Review of Systems Constitutional: Positive for fatigue. Negative for diaphoresis. Respiratory: Positive for shortness of breath. Negative for chest tightness. Cardiovascular: Negative for chest pain, palpitations and leg swelling. Gastrointestinal: Negative for blood in stool. Musculoskeletal: Positive for arthralgias and back pain. Negative for myalgias. Neurological: Negative for dizziness and light-headedness. All other systems reviewed and are negative. Physical Examination: BP 104/54 (BP Location: Left arm, Patient Position (BP): Sitting, BP Cuff Size: Large Adult) Pulse (!) 57 Ht 5' 2 (1.575 m) Wt 111.1 kg (245 lb) SpO2 95% BMI 44.81 kg/m?? Physical Exam Vitals reviewed. Constitutional: General: She is not in acute distress. Appearance: Normal appearance. She is obese. Comments: O2 via nasal canula HENT: Head: Normocephalic and atraumatic. Mouth/Throat: Mouth: Mucous membranes are moist. Eyes: Extraocular Movements: Extraocular movements intact. Conjunctiva/sclera: Conjunctivae normal. Cardiovascular: Rate and Rhythm: Normal rate and regular rhythm. Pulses: Carotid pulses are 2+ on the right side and 2+ on the left side. Radial pulses are 2+ on the right side and 2+ on the left side. Heart sounds: S1 normal and S2 normal. Pulmonary: Effort: Pulmonary effort is normal. Breath sounds: Normal breath sounds. Abdominal: General: Abdomen is flat. Palpations: Abdomen is soft. Genitourinary: Comments: Indwelling Paige catheter Musculoskeletal: Cervical back: Normal range of motion. Right lower le+ Edema present. Left lower le+ Edema present. Skin: General: Skin is warm and dry. Coloration: Skin is not jaundiced. Neurological: General: No focal deficit present. Mental Status: She is alert and oriented to person, place, and time. Mental status is at baseline. Psychiatric: Mood and Affect: Mood normal. Behavior: Behavior normal. Thought Content: Thought content normal. Judgment: Judgment normal. 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 Longest RR intervals appearedto have occurred laborer pipelines overnight hours presumably while asleep. Sinus rhythm was not appreciated. Conclusions: Persistent atrial fibrillation with intermittent atrial flutter with variable AV block controlled average heart rate with frequent episodes of rapid ventricular response which majority of patient's symptoms were associated with tachycardia. Sinus rhythm was not appreciated No pathologic or prolonged pauses or high-grade AV blocks identified. 01/18/23 CT Chest: IMPRESSION: HEART: The heart is mildly enlarged. No pericardial effusion. CORONARY ARTERY CALCIFICATION: Minimal VASCULATURE: The thoracic aorta is atherosclerotic, without aneurysm. Main pulmonary artery measures approximately 3.5 cm, mildly enlarged. 1. Interstitial lung disease, with pattern most suggestive of nonspecific interstitial pneumonia. No significant interval change compared to prior examination in October 2021. 2. Compression deformities within the thoracic spine, likely at least subacute if not chronic, but new compared to prior examination in October 2021. Dedicated thoracic spine imaging can be obtained as warranted clinically. 07/26/23 2D echo: Conclusions: Normal left ventricular [...] prolapse. Mild mitral valve regurgitation. Atrial fibrillation. Laboratory studies reviewed 05/05/2024 ESR 28, BMP: Sodium 140 potassium 4.3 chloride 99 bicarb 30 BUN 41 creatinine 1.0 CBC: WBC 11.2 hemoglobin 9.5 hematocrit 31.3 platelet count 237 EKG Date/Time: 06/19/2024 9:30 AM Performed by: Myles Reyes MD Authorized by: Myles Reyes MD Comments: Sinus rhythm with premature contractions and premature ventricular contractions first-degree AV block 67 bpm WA 220 ms QRS 120 ms QT corrected 41 ms, poor R wave progression, LVH, abnormal ECG. I have personally reviewed and analyzed electronic medical record, pertinent imaging, laboratory studies, ECG, and available consultation notes. Impression: ICD-10-CM ICD-9-CM 1. Chronic heart failure with preserved ejection fraction I50.32 428.9 2. Longstanding persistent atrial fibrillation I48.11 427.31 3. Primary hypertension I10 401.9 4. Mixed hyperlipidemia E78.2 272.2 5. Chronic interstitial lung disease J84.9 515 6. Rheumatoid arthritis, involving unspecified site, unspecified whether rheumatoid factor present M06.9 714.0 7. Chronic anticoagulation Z79.01 V58.61 8. History of pulmonary embolism Z86.711 V12.55 9. Body mass index 40.0-44.9, adult Z68.41 V85.41 Assessment/Plan of Care: 1. AFib historically paroxysmal developing into more persistent A-fib requiring dual AV neno blocking agents but currently in SR She also has a history of intermittent atrial flutter with variable AV block. Continue current medical therapy and systemic anticoagulation for stroke risk reduction. CHADS2 Vasc score 4. -Continue Eliquis 5 mg BID. Monitor for bleeding. If falls, head injury or bleeding go to ER immediately. Monitor renal function at least on yearly basis. -continue Toprol XL 150 mg daily, Diltiazem 300 mg daily. -As previously discussed, amiodarone is not an option given advancing underlying [...] not wish for any changes at present. -She is NOT to be on Lisinopril concomitantly with Entresto as this will increase risk for angioedema complications. They confirm she is not taking Lisinopril, only Entresto but cost an issue. 3. Reasonably compensated, chronic HFpEF history of HFrEF now recovered historically now reduced LVfunction EF 20% during AFib with RVR NYHA class III sxs confounded by chronic hypoxic respiratory failure. CHF counseling performed. Follow daily weight, less than 2 g daily sodium intake, medicationcompliance. Call w/ wt gain >3lb in 24 hrs or worsening edema and/or FALCON. -Echo 04/05/2023 at [facility] EF 25-30% during AFib with RVR [id number] MR moderate pulmonary hypertension RVSP 50 mm Hg. -07/2023 Echo EF improved 50-55% mild RV hypokinesis, mild left atrial enlargement mild MR/TR, no , PASP 30 mmHg. -Cont Lasix 40mg BID in general but will increase Lasix to 80mg in AM and 40mg evening for next 5 days, BMP in 1 week. -not a good candidate for SGLT2 inhibitor therapy due to indwelling Paige catheter and h/o recurrent UTI. -last weight 234lb today 245lbs -Call next week with daily weights, sxs for additional recommendations. 4. Follow up with Renal as scheduled. Cr improved to 1.0 but BUN higher at 41. No change in currentregimen at this time. Monitor closely. Discussed at length. 5. Follow-up with pulmonology and Rheumatology as scheduled. Compliance with CPA for tx of STARR. Rosalio continue on hydroxychloroquine, methotrexate and prednisone as directed 6. Lipids personally reviewed 01/17/24 LDL 63, well controlled goal LDL< 70. Continue statin therapy and lifestyle modification. Pravastatin 80mg qhs. 7. Lifestyle modification counseling performed. Encouraged consistent weight loss, exercise, reduction in caloric intake. Discussed needs to get back to her diet as she knows. 8. Strongly encouraged remain compliant with dietary restrictions as previously counseled. Patient verbalized understanding and will attempt to follow recommendations. Continue aggressive atherosclerotic risk reduction given evidence for minimal coronary calcification and degree of atherosclerosis of the thoracic aorta by CT chest 12/2022 reviewed. Follow up in the office in [place] in about 4 months (around 10/20/2024). or sooner as needed. Thank you for allowing me the privilege of participating in the care this very pleasant patient. Please do not hesitate to contact me with any additional questions or concerns. This note was dictated and transcribed using [employer] Speech Recognition software. Cash Poster variances may occur. Despite proofreading, typographical errors may occur. Myles Reyes MD documented in this encounter Plan of Treatment Upcoming Encounters Date Type Department Care Team (Late st Contact Info) Description 12/24/2024 8:00 AM HEAD OF HUMAN RESOURCES [facility] Visit [facility] - [address] [place] [id number] Myles Reyes MD [address] [place] [id number] documented as of this encounter Procedures Procedure Name Priority Date/Time Associated Diagnosis Comments WA ECG ROUTINE ECG W/LEAST 12 LDS W/I&R Routine 06/19/2024 9:30 AM CDT Chronic heart failure with preserved ejection fraction Longstanding persistent atrial fibrillation documented in this encounter Results * WA ECG ROUTINE ECG W/LEAST 12 LDS W/I&R (06/19/2024 9:30 AM CDT) Narrative NON [facility] - 06/19/2024 9:30 AM CDT Myles Reyes MD ? 06/19/2024 10:36 AM EKG Date/Time: 06/19/2024 9:30 AM Performed by: Myles Reyes MD Authorized by: Myles Reyes MD ??Comments: Sinus rhythm with premature contractions and premature ventricular contractions first-degree AV block 67 bpm WA 220 ms QRS 120 ms QT corrected 41 ms, poor R wave progression, LVH, abnormal ECG. Procedure Note Myles Reyes MD - 06/19/2024 9:40 AM CDT [facility] Heart and Vascular Cardiology Outpatient Consultation Note Date of Service: 06/19/24 Primary Care Physician: No primary care provider on file. Referring Physician: No ref. provider found Chief Complaint Patient presents with Irregular Heart Beat 6mth f/u from [facility]. SUBHASH leg swelling worse in the L, L sidegoes numb. History of Present Illness: Patient is a pleasant 74 y.o. female with a PMHx significant forrheumatoid arthritis, hypertension, hyperlipidemia, morbid obesity, STARR,diastolic heart failure, atrial fibrillation, and interstitial lungdisease. She was on amiodarone and digoxin in the past , she had also hada successful cardioversion in the past. Mahamed in September 2019 showed EF60%. She was previously followed by Dr. Parker. Her driver trainer is . Her single stroke preformer is Dr. Kobe Gerard. She presented to [facility] on 01/01/2020 with complaint of worsening shortness of breath.Dr. Reyes met her in consultation. She was diuresed, improved anddischarged to home. However, she presented back to the hospital on01/27/2020 with weakness and was found to be in acute kidney injury fromdehydration (was taking spironolactone 50 mg daily and furosemide 40 mgb.i.d., and not drinking adequate fluids). She was rehydrated, diureticsand lisinopril were held and her renal function improved. Her metoprololwas up titrated because her heart rate was elevated. I discharge hermetoprolol was set 125 mg daily and her furosemide was restarted at 40 mgdaily. Spironolactone was discontinued. OLD RECORDS care everywhere [facility]: 02/09/20 HFU w/ CAT- she comes to the office today for hospital follow-up.She is accompanied by her daughter. Since discharge she has been feelingbetter but over the last few days has felt more fatigued. She is able togo up the 14 steps in her house, and her heart rate will elevate to [id number] bpm, but then it promptly goes back down. She has been weighingherself daily at home in weights have been stable. She is trying to drink2 L of fluid a day but sometimes finds it hard to finish all of it. Shewears oxygen p.r.n. Activity. She is using her CPAP machine nightly, butsometimes remove sit detention through the night. PCP follows her INRs andyesterday it was 2.6. She denies any bleeding. Twelve lead ECG performedin the office today was reviewed by me personally and shows atrialfibrillation with variable ventricular response, rate 80 beats per minute.On 02/02/2020, her K was 4.4, BUN 24, creatinine 1.2. 05/05/20 c/o more pain in legs and things like they are on fire. Edemapersists, weight unchanged. Breathing ok with O2 on or short walking butotherwise not very good. Additional Lasix 20mg in afternoon to Lasix 40mgin AM after 2 week made no difference so she is now only taking Lasix 40mgin AM. She is still watching fluid and sodium intake <2000mg daily. She isnot active or moving per daughter because her legs hurt up to her thighs.Primary complaint is leg pain. Goes to see Rheum in May she thinksweaning prednisone making her pain worse picking up around 5mg prednisonedaily. In February, pain was not that bad supposedly. Doing ok when she hadPT at the house but admits she is not doing what she is supposed to do. RAis a limiting issue. -No CP, palps, falls or bleeding. CPAP use at night consistent but takesfrequent naps during day and not using. 07/07/20 OV w/ CAT-she returns for routine follow-up, accompanied by adela. No complaints today. She denies palpitations or chest pain,denies any bleeding problems, INR checked last week was 2.7. Has beentrying to lose some weight, following a [id number] Na restriction. Nowusing a foot pedal for some exercise. Her LE swelling does improve withelevation. She typically uses a walker but came to the office in awheelchair due to the longer distance. Compliant with CPAP at night butdoes not use it during the day for a nap. 01/12/21 Edema present but not as bad stable, trying to keep salt down,doing well now she states. Has changed diet, gave up cheese, no processedlunch meats, no CP or new SOB. Wearing CPAP every night, now used to it.No palps. No dizziness. Ashley meds. Still seeing Rheum, she c/o legs andhip pain told was OA. Toprol XKL 125mg daily along with warfarin. Patient is accompanied by adela who also agreed she is doing better overall. 09/29/21 CAT visit-On 09/21/21 she went to [facility] ER forcomplaint of worsening shortness of breath. She was in sinus rhythm witha heart rate in the 90s. Labs included a proBNP of 677, negativetroponin, BUN 32, creatinine 1.2, H&H 11 and 34.9, chest x-ray showed noacute process. ABG showed a pCO2 of 29 and a PO2 of 184.9, bicarb 19.5and pH 7.43. She was given the diagnosis of COPD exacerbation and CHFexacerbation. She take a she returns to the office accompanied by adela. She is still short of breath and is highly concerned. Adela thinks her symptoms are due to the COVID booster shot that shegot about 4 days before her symptom onset. Her oxygen saturation at restwithout supplemental oxygen is about 80% and it will improve with wearingoxygen anywhere from 88-97%. When she walks around wearing her oxygen hersaturation is 85-88%. She notices that her heart rate jumps up sometimesto the 160s when she is walking around. She reports not missing any dosesof Eliquis but wonders if she could have a PE. She sees her PCP nextThday. Dr. Norman has referred her to pulmonology [facility] and thatappointment is next month. 12-lead ECG performed in the office today was independently interpreted byme and showed sinus rhythm, normal axis and normal intervals, rate 88beats per minute 11/02/21 Says not feeling any better at all [facility] hurts to do everything takes a lot out of her, no energyor appetite, SOB same as before. Attributes a lot to being off her painmeds including Hydroxychloroquine and Methotrexate for a while while inhospital. On CPAP. Not much edema though. Pain is mostly in shoulders andhands. Uses heating pad and Tylenol. Saw PCP recently. Sees Pulm at [facility]. Using 2L O2 at rest 4L O2 with activity. She notes her O2 dropsto 85% on 4L still. Rheum adjusting meds on prednisone for 1 week withoutnoted improvement thus far. Has PT coming into home. 04/17/22 Admitted to [place] with ILD and CHF admits she hasn't beenmonitoring her diet as much says she just can't eat at home it's boring soeating out more. For a while was eating a lot of cookies, eating lightlysalted potato chips, steaks, hamburgers on buns, spaghetti, pasta. Eatsfettuccini weekly or so. BP has been ok. Has more edema but does not feelall her weight is fluid. Wants to know why she is gaining weight, noactive either. Currently Lasix 40mg alternating with 60mg. She eats to stay awake as shefalls asleep very easily. Wears CPAP at night.breathing is stable. WearingO2. Daughter mentions she drinks a lot of soda she says 3 cans daily(which pt did not mention). 05/10/22 CAT visit-at the last visit furosemide was increased to 60 mgdaily and she was counseled extensively on low-sodium diet compliance. Anew BMP showed slight elevation in creatinine to 1.3 (baseline 1.1),potassium normal, she was advised to repeat BMP in 1-2 weeks. Today aquilinoeturns to the office with her daughter. She reports she can tell she haslost fluid weight. She is trying better to follow the low-sodium diet.She has no complaints. She repeated the BMP this morning. 06/22/22 CAT visit - she was hospitalized at [place] 05/25-05/26 for pulmonaryedema, tested positive for COVID, treated for rib fractures due to a fall2 days prior. Then hospitalized at [place] 05/27-06/07 for treatment ofpneumonia (bacterial verses COVID) / COPD exacerbation, diastolic heartfailure exacerbation. She became bradycardic on telemetry (heart [id number] with pause up to 3 seconds) so remdesivir was stopped and metoprololwas stopped. IV furosemide caused MIKE so she was discharged withoutfurosemide but it has since been restarted in senior care rehab(currently she is at [facility] in [place]). When she isdoing physical therapy her heart rate will go in the 150s. She cannotfeel the tachycardia. She denies any bleeding problems. She states theswelling in her legs ? goes up and down? and she is having wraps placed bythe staff there. Oxygen requirement remains the same. 09/13/22 then in June had kidney stones dehydration now feeling muchbetter. Taking Lasix 60mg daily having difficulty drinking enough waterdrinking 3 coffee daily not soda like before. Breathing is fine right nowfeels good has O2 ok at rest off O2 but any activity wears it. Toprol XL50mg daily, Eliquis 5mg BID, Plaquenil, KCl 20MEQ daily. Doing quite wellcurrently. Edema. Family helping her now cooking without salt no fastfoods at all and is working out well. 12/27/22 Doing fine, trying to follow her diet and ashley meds. On Orenciatrying to reduce prednisone now 2.5mg daily controlling her pain. Feelsfairly well. LAsix 60mg daily. Followed by Renal and Rheum. Ashley CPAP quitewell. Sometimes appetite not that great occ diarrhea or constipation,sometime nocturia no UTI they state per recnet Renal visit. Here withdaughter. 04/12/23 recurrent admissions for cough, CHF, AFib with RVR and atrialflutter with RVR. Went to [facility] after February admission then backto [place] in March after and she feels diet at [facility] is to faultand salty. Cough is incessant at [facility]. Has blood in stoolreported so UGI recommended discharge yesterday on Dilt 300mg daily andToprol XL 150mg Lasix 40mg BID Echo with EF 27% but in AF with RVR.Extensively reviewed [facility] records. Patient's daughter veryconcerned about her cough has been no different throughouthospitalizations of late. They admit that her interstitial lung diseaseis progressing. No improvement with antibiotics for diuresis or change inmedications. 04/26/23 CAT visit-Entresto was started at the last visit. She had noperceived problems with it and had a BNP drawn a week ago. She feels herbreathing is a little better and her swelling is a little better. Legs doget more swollen throughout the day if she does not elevate them. Todayshnick had an appointment at 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 She hasa history of frequent UTIs. 07/30/23 Breathing still an issue some days better than others, but DOEpersists has to rest after walking short distances. Echo done EF 50-55%.Remains on Lasix 80mg daily Entresto, Toprol XL 150mg daily. Has endoscopyupcoming. On Eliquis 5mg BID. Not using CPAP due to urination and changingO2. She is here with her daughter once again. She is tolerating hermedical regimen and feels better overall. 10/01/23 Feeling better she says not as SOB or elevated HR but not walkingas much has a chronic catheter. Having surgery for suprapubiccatheter. Off Eliquis for this since Saturday. Dx with Celiac disease. SawRheum today more labs upcoming and workup. Losing a lot of weight due toCeliac. She is eating more and weight up, watching salt. 01/17/24 gaining more weight, not using CPAP, sleeps poorly maybe 2 hoursat night if she is oswaldo. No falls. No CP. Breathing stable no changestill FALCON no change. Here with her daughter. She admits she has not beenconsistent with diet splurges with cheese, weight up a bit more edema. Hadinjections in hips moving a little better helping her. No bleeding. Medssame. Patient is now being seen in very kind consultation request by No primarycare provider on file. for my opinion regarding atrial fibrillation, heartfailure. Initial visit 06/19/24: having trouble getting around back pain toldpossible pinched nerve planning on MRI soon. Denies new issues withbreathing which is chronically a problem, wearing O2. No chest pain orpalpitations. She confirms she is taking Entresto and not lisinopril.Mild edema but no change. Her weight is up and she admits that she is notactive even less so than before her legs always in dependent position, andshe has not been consistent with her diet and watching her salt as before.She is compliant with Lasix 40 mg twice daily. She reports recurrentUTIs and chronic indwelling Paige catheter. Dresses quite expensive. Nobleeding. Sees nephrology next week, blood work at that time. Past Medical History: Past Medical History: Diagnosis Date A-fib Social History: Social History Tobacco Use Smoking status: Never Smokeless tobacco: Never Substance Use Topics Alcohol use: Not Currently Family History: No family history on file. Past Surgical History: Past Surgical History: Procedure Laterality Date HX HEART CATHETERIZATION Allergies: No Known Allergies Current Medications: Current Outpatient Medications on File Prior to Visit Medication Sig Dispense Refill abatacept (Orencia ClickJect) 125 mg/mL Auto-Injector Inject 125 mg bysubcutaneous injection. apixaban (Eliquis) 5 mg tablet Cholestyramine Light 4 gram Powder in Packet MIX 1 PACKET WITH LIQUID ANDDRINK EVERY DAY WITH A MEAL. AVOID OTHER MEDS WITHIN 1 HOUR BEFORE OR 4 TO6 HOURS AFTER DOSE diltiaZEM (CARDIZEM CD) 300 mg Controlled Delivery 24 hour capsule Ulby935 mg by mouth daily. DULoxetine (CYMBALTA) 20 mg Capsule, Delayed Release(E.C.) Take 20 mg bymouth daily. furosemide (LASIX) 40 mg tablet Take 40 mg by mouth 2 times daily. hydroxychloroquine (PLAQUENIL) 200 mg tablet Take 200 mg by mouth 2 timesdaily. levothyroxine 112 mcg tablet Take 1 Tablet by mouth daily. pantoprazole (PROTONIX) 40 mg Tablet, Delayed Release (E.C.) Take 40 mgby mouth daily. pravastatin (PRAVACHOL) 80 mg tablet Take 80 mg by mouth daily atbedtime. predniSONE (DELTASONE) 2.5 mg tablet Take 2.5 mg by mouth daily. sacubitriL-valsartan (ENTRESTO) 24-26 mg Tablet Take 1 Tablet by mouth 2times daily. acetaminophen 325 mg Capsule Take by mouth. alendronate (FOSAMAX) 70 mg tablet TAKE 1 TABLET BY MOUTH ONCE WEEKLY ONSATURDAYS Calcium Carbonate-Vit D3-Min 600 mg calcium- 400 unit Tablet Take bymouth 2 times daily. cephALEXin (KEFLEX) 250 mg capsule Take 250 mg by mouth daily. cholecalciferol, Vitamin D3, 50 mcg (2,000 unit) Tablet Take 1,000 Unitsby mouth daily. cyanocobalamin 1,000 mcg Tablet Take 1,000 mcg by mouth daily. metoprolol succinate (TOPROL XL) 100 mg Extended Release 24 hour tabletTAKE 1 TABLET BY MOUTH DAILY ALONG WITH 50MG metoprolol succinate (TOPROL XL) 50 mg Extended Release 24 hour tabletTake 50 mg by mouth daily. potassium chloride (KLOR-CON M20) 20 mEq Extended Release tablet Take 20mEq by mouth 2 times daily. traMADoL (ULTRAM) 50 mg tablet Take 50 mg by mouth every 8 hours asneeded for Pain. [DISCONTINUED] lisinopriL (PRINIVIL) 5 mg tablet No current facility-administered medications on file prior to visit. Review of Systems: Review of Systems Constitutional: Positive for fatigue. Negative for diaphoresis. Respiratory: Positive for shortness of breath. Negative for chesttightness. Cardiovascular: Negative for chest pain, palpitations and leg swelling. Gastrointestinal: Negative for blood in stool. Musculoskeletal: Positive for arthralgias and back pain. Negative formyalgias. Neurological: Negative for dizziness and light-headedness. All other systems reviewed and are negative. Physical Examination: BP 104/54 (BP Location: Left arm, Patient Position (BP): Sitting, BP CuffSize: Large Adult) Pulse (!) 57 Ht 5' 2 (1.575 m) Wt 111.1 kg(245 lb) SpO2 95% BMI 44.81 kg/m?? Physical Exam Vitals reviewed. Constitutional: General: She is not in acute distress. Appearance: Normal appearance. She is obese. Comments: O2 via nasal canula HENT: Head: Normocephalic and atraumatic. Mouth/Throat: Mouth: Mucous membranes are moist. Eyes: Extraocular Movements: Extraocular movements intact. Conjunctiva/sclera: Conjunctivae normal. Cardiovascular: Rate and Rhythm: Normal rate and regular rhythm. Pulses: Carotid pulses are 2+ on the right side and 2+ on the left side. Radial pulses are 2+ on the right side and 2+ on the left side. Heart sounds: S1 normal and S2 normal. Pulmonary: Effort: Pulmonary effort is normal. Breath sounds: Normal breath sounds. Abdominal: General: Abdomen is flat. Palpations: Abdomen is soft. Genitourinary: Comments: Indwelling Paige catheter Musculoskeletal: Cervical back: Normal range of motion. Right lower le+ Edema present. Left lower le+ Edema present. Skin: General: Skin is warm and dry. Coloration: Skin is not jaundiced. Neurological: General: No focal deficit present. Mental Status: She is alert and oriented to person, place, and time.Mental status is at baseline. Psychiatric: Mood and Affect: Mood normal. Behavior: Behavior normal. Thought Content: Thought content normal. Judgment: Judgment normal. 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 Sinus rhythm was not appreciated. Conclusions: Persistent atrial fibrillation with intermittent atrial flutter withvariable AV block controlled average heart rate with frequent episodes ofrapid ventricular response which majority of patient's symptoms wereassociated with tachycardia. Sinus rhythm was not appreciated No pathologic or prolonged pauses or high-grade AV blocks identified. 01/18/23 CT Chest: IMPRESSION: HEART: The heart is mildly enlarged. No pericardial effusion. CORONARY ARTERY CALCIFICATION: Minimal VASCULATURE: The thoracic aorta is atherosclerotic, without aneurysm.Main pulmonary artery measures approximately 3.5 cm, mildly enlarged. 1. Interstitial lung disease, with pattern most suggestive ofnonspecific interstitial pneumonia. No significant interval change compared to prior examination in October 2021. 2. Compression deformities within the thoracic spine, likely at least subacute if not chronic, but new compared to prior examination in October 2021. Dedicated thoracic spine imaging can be obtained as warranted clinically. 07/26/23 2D echo: Conclusions: Normal left ventricular [...] prolapse. Mild mitral valve regurgitation. Atrial fibrillation. Laboratory studies reviewed 05/05/2024 ESR 28, BMP: Sodium 140 potassium 4.3 chloride 99 bicarb 30 BUN 41 creatinine1.0 CBC: WBC 11.2 hemoglobin 9.5 hematocrit 31.3 platelet count 237 EKG Date/Time: 06/19/2024 9:30 AM Performed by: Myles Reyes MD Authorized by: Myles Reyes MD Comments: Sinus rhythm withpremature contractions and premature ventricular contractions first-degreeAV block 67 bpm WA 220 ms QRS 120 ms QT corrected 41 ms, poor R waveprogression, LVH, abnormal ECG. I have personally reviewed and analyzed electronic medical record,pertinent imaging, laboratory studies, ECG, and available consultationnotes. Impression: ICD-10-CM ICD-9-CM 1. Chronic heart failure with preserved ejection fraction I50.32 428.9 2. Longstanding persistent atrial fibrillation I48.11 427.31 3. Primary hypertension I10 401.9 4. Mixed hyperlipidemia E78.2 272.2 5. Chronic interstitial lung disease J84.9 515 6. Rheumatoid arthritis, involving unspecified site, unspecified whetherrheumatoid factor present M06.9 714.0 7. Chronic anticoagulation Z79.01 V58.61 8. History of pulmonary embolism Z86.711 V12.55 9. Body mass index 40.0-44.9, adult Z68.41 V85.41 Assessment/Plan of Care: 1. AFib historically paroxysmal developing into more persistent A-fibrequiring dual AV neno blocking agents but currently in SR She also hasa history of intermittent atrial flutter with variable AV block. Continuecurrent medical therapy and systemic anticoagulation for stroke riskreduction. CHADS2 Vasc score 4. -Continue Eliquis 5 mg BID. Monitor for bleeding. If falls, head injuryor bleeding go to ER immediately. Monitor renal function at least onyearly basis. -continue Toprol XL 150 mg daily, Diltiazem 300 mg daily. -As previously discussed, amiodarone is not an option given advancingunderlying interstitial lung disease and chronic hypoxic respiratoryfailure. -patient is doing fairly well at this time with regards to her AFibcontrol. 2. BP controlled goal <140/90mmHg. Monitor BP on routine basis. Call withreadings. Continue consistent cardiovascular exercise, weight loss,medication compliance, and low-sodium diet. -Continue Toprol XL 150 mg daily. Continue Entresto 24/26 mg twice daily.Once again, we discussed increase to 49/51mg BID but she is doing well andwould prefer not to do so at this time. She has a had intermittenthypotension in the past placing her at higher fall risk. Patient'sdaughter does not wish for any changes at present. -She is NOT to be on Lisinopril concomitantly with Entresto as this willincrease risk for angioedema complications. They confirm she is nottaking Lisinopril, only Entresto but cost an issue. 3. Reasonably compensated, chronic HFpEF history of HFrEF now recoveredhistorically now reduced LV function EF 20% during AFib with RVR NYHAclass III sxs confounded by chronic hypoxic respiratory failure. CHFcounseling performed. Follow daily weight, less than 2 g daily sodiumintake, medication compliance. Call w/ wt gain >3lb in 24 hrs orworsening edema and/or FALCON. -Echo 04/05/2023 at [facility] EF 25-30% during AFib with [id number] MR moderate pulmonary hypertension RVSP 50 mm Hg. -07/2023 Echo EF improved 50-55% mild RV hypokinesis, mild left atrialenlargement mild MR/TR, no , PASP 30 mmHg. -Cont Lasix 40mg BID in general but will increase Lasix to 80mg in AM lie64lo evening for next 5 days, BMP in 1 week. -not a good candidate for SGLT2 inhibitor therapy due to indwelling Foleycatheter and h/o recurrent UTI. -last weight 234lb today 245lbs -Call next week with daily weights, sxs for additional recommendations. 4. Follow up with Renal as scheduled. Cr improved to 1.0 but BUN higher at41. No change in current regimen at this time. Monitor closely.Discussed at length. 5. Follow-up with pulmonology and Rheumatology as scheduled. Compliancewith CPA for tx of STARR. She will continue on hydroxychloroquine,methotrexate and prednisone as directed 6. Lipids personally reviewed 01/17/24 LDL 63, well controlled goal LDL<70. Continue statin therapy and lifestyle modification. Pravastatin 80mgqhs. 7. Lifestyle modification counseling performed. Encouraged consistentweight loss, exercise, reduction in caloric intake. Discussed needs to getback to her diet as she knows. 8. Strongly encouraged remain compliant with dietary restrictions aspreviously counseled. Patient verbalized understanding and will attemptto follow recommendations. Continue aggressive atherosclerotic risk reduction given evidence forminimal coronary calcification and degree of atherosclerosis of thethoracic aorta by CT chest 12/2022 reviewed. Follow up in the office in [place] in about 4 months (around 10/20/2024).or sooner as needed. Thank you for allowing me the privilege of participating in the care thisvery pleasant patient. Please do not hesitate to contact me with anyadditional questions or concerns. This note was dictated and transcribed using [employer] Speech Recognitionsoftware. Cash Poster variances may occur. Despite proofreading,typographical errors may occur. Myles Reyes MD Myles Reyes MD ECG ORDERABLES NON [facility] documented in this encounter Visit Diagnoses Diagnosis Chronic heart failure with preserved ejection fraction- Primary Longstanding persistent atrial fibrillation Primary hypertension Unspecified essential hypertension Mixed hyperlipidemia Chronic interstitial lung disease Rheumatoid arthritis, involving unspecified site, unspecified whether rheumatoid factor present Chronic anticoagulation Encounter for long-term (current) use of anticoagulants History of pulmonary embolism Personal history of pulmonary embolism Body mass index 40.0-44.9, adult Body Mass Index 40.0-44.9, adult documented in this encounter
--- OUTSIDE RECORDS SUMMARY | 2024-11-15 06:20 | XMS_ITS | Clinical Summary ---
Author Organization [facility] Address [address] [place] [address] Care Team Providers Care Chief Engineer Production Name Role Phone Timothy Donis MD Primary Care Provider [phone] Allergies No known active allergies Medications Medication Sig Dispensed Refills Start Date End Date Status abatacept (Orencia ClickJect) 125 mg/mL Auto-Injector Inject 125 mg by subcutaneous injection. 2 Active acetaminophen 325 mg Capsule Take by mouth. Active alendronate (FOSAMAX) 70 mg tablet TAKE 1 TABLET BY MOUTH ONCE WEEKLY ON SATURDAYS Active apixaban (Eliquis) 5 mg tablet 1 Active Calcium Carbonate-Vit D3-Min 600 mg calcium- 400 unit Tablet Take by mouth 2 times daily. Active cephALEXin (KEFLEX) 250 mg capsule Take 250 mg by mouth daily. Active cholecalciferol , Vitamin D3, 50 mcg (2,000 unit) Tablet Take 1,000 Units by mouth daily. Active Cholestyramine Light 4 gram Powder in Packet MIX 1 PACKET WITH LIQUID AND DRINK EVERY DAY WITH A MEAL. AVOID OTHER MEDS WITHIN 1 HOUR BEFORE OR 4 TO 6 HOURS AFTER DOSE 0 Active cyanocobalamin 1,000 mcg Tablet Take 1,000 mcg by mouth daily. Active diltiaZEM (CARDIZEM CD) 300 mg Controlled Delivery 24 hour capsule Take 300 mg by mouth daily. 3 Active DULoxetine (CYMBALTA) 20 mg Capsule, Delayed Release(E.C.) Take 20 mg by mouth daily. 1 Active hydroxychloroqu ine (PLAQUENIL) 200 mg tablet Take 200 mg by mouth 2 times daily. 4 Active levothyroxine 112 mcg tablet Take 1 Tablet by mouth daily. 4 Active metoprolol succinate (TOPROL XL) 100 mg Extended Release 24 hour tablet TAKE 1 TABLET BY MOUTH DAILY ALONG WITH 50MG Active metoprolol succinate (TOPROL XL) 50 mg Extended Release 24 hour tablet Take 50 mg by mouth daily. Active pantoprazole (PROTONIX) 40 mg Tablet, Delayed Release (E.C.) Take 40 mg by mouth daily. 4 Active potassium chloride (KLOR-CON M20) 20 mEq Extended Release tablet Take 20 mEq by mouth 2 times daily. Active pravastatin (PRAVACHOL) 80 mg tablet Take 80 mg by mouth daily at bedtime. 4 Active predniSONE (DELTASONE) 2.5 mg tablet Take 2.5 mg by mouth daily. 3 Active traMADoL (ULTRAM) 50 mg tablet Take 50 mg by mouth every 8 hours as needed for Pain. Active sacubitriL-vals razia (ENTRESTO) 24-26 mg Tablet Take 1 Tablet by mouth 2 times daily. 56 Tablet 4 Active furosemide (LASIX) 80 mg tablet TAKE 1 TABLET(80 MG) BY MOUTH TWICE DAILY 180 Tablet 1 4 Active sacubitriL-vals razia (ENTRESTO) 24-26 mg Tablet Take 1 Tablet by mouth 2 times daily. 3 10/23/20 24 Discontinued(Reo rder) furosemide (LASIX) 80 mg tablet TAKE 1 TABLET(80 MG) BY MOUTH TWICE DAILY 180 Tablet 4 11/13/20 24 Discontinued Active Problems Patient Care Coordination No te Formatting of this note migh t be different from the original. [facility] Dr. Amy Ambrose Problem Noted Date Diagnosed Date Chronic kidney disease 06/19/2024 Congestive heart failure 06/19/2024 Chronic heart failure with preserved ejection fr action 06/19/2024 Dilated cardiomyopathy 04/12/2023 Primary hypertension 06/28/2022 Overview (06/19/2024): Last Assessment & Plan: BP flucutates, pulse improved. Continues on Toprol 50mg & Lisinopril 5mg. Will increase Lisinopril to 10mg & pt needs to f/u with [facility]. History of pulmonary embolism 06/10/2022 Overview (06/19/2024): Last Assessment & Plan: Patient has history of DVT and PE x 2, 1st episode was provoked and the 2nd episode occurred with discontinuation on Coumadin. Continue Eliquis 5 mg b.i.d. Hypothyroidism 06/04/2022 Overview (06/19/2024): Last Assessment & Plan: Continue levothyroxine 112 mg daily. Hyperlipidemia 05/27/2022 Overview (06/19/2024): Last Assessment & Plan: Continue home med pravastatin 80 mg daily Recurrent major depressive disorder, in partial remission 05/27/2022 Overview (06/19/2024): Last Assessment & Plan: Mood stable. Continue home med Zoloft 50 mg, Cymbalta Chronic interstitial lung disease 11/09/2021 Overview (06/19/2024): Last Assessment & Plan: At baseline on supplemental oxygen 2 L at rest, 4 L with exertion, prednisone 15 mg, abatacept on hold. Follows up with Pulmonary, Dr. Norman and instrument panel assembler Dr. Bauman. PFT scheduled at [facility] 06/15 H/O influenza 11/02/2021 Obstructive sleep apnea syndrome 07/07/2020 Overview (06/19/2024): Last Assessment & Plan: Compliant with CPAP. Continue using nighttime Chronic diastolic heart failure 05/05/2020 Rheumatoid arthritis 05/05/2020 Overview (06/19/2024): Last Assessment & Plan: Continue Plaquenil & Prednisone - f/u with Rheum outpt. Body mass index (BMI) 45.0-49.9, adult 0 Atrial fibrillation 02/09/2020 Chronic anticoagulation 02/09/2020 Longstanding persistent atrial fibrillation 01/23 Overview (06/19/2024): Last Assessment & Plan: SEE ABOVE Resolved Problems Problem Noted Date Diagnosed Date Resolved Date Body mass index 40.0-44.9, adult 01/17/2024 10/23/2024 Encounters Date Type Department Care Team Description 11/13/2024 Refill [facility] Heart and Vascular - [address] [place] [address] Myles Reyes MD 10/23/2024 10:00 AM CONSUMER ELECTRONICS MERCHANDISER Office Visit [facility] Heart and Vascular - [address] [place] [address] Myles Reyes MD Chronic heart failure with preserved ejection fraction (Primary Dx); Longstanding persistent atrial fibrillation; Chronic interstitial lung disease; Chronic anticoagulation; Body mass index (BMI) 45.0-49.9, adult; History of pulmonary embolism 10/23/2024 Orders Only [facility] Heart and Vascular - [address] [place] [address] Clarisa Cook 08/31/2024 Orders Only [facility] Heart and Vascular - [address] [place] [address] Daja Bajwa LPN Chronic diastolic heart failure from Last 3 Months Social History Tobacco Use Types Packs/Day Years Used Date Smoking Tobacco: Never Smokeless Tobacco: Never Tobacco Cessation:Counseling Given: Not Answered Alcohol Use Standard Drinks/Week Comments Not Currently 0 (1 standard drink = 0.6 oz pur e alcohol) Sex and Gender Information Value Date Recorded Sex Assigned at Female 11/03/2024 11:06 AM CONSUMER ELECTRONICS MERCHANDISER Gender Identity Female 11/03/2024 11:06 AM CONSUMER ELECTRONICS MERCHANDISER Sexual Orientation Not on file Last Filed Vital Signs Vital Sign Reading Time Taken Comments Blood Pressure 102/50 10/23/2024 9:38 AM CONSUMER ELECTRONICS MERCHANDISER Pulse 68 10/23/2024 9:38 AM CONSUMER ELECTRONICS MERCHANDISER Temperature - - Respiratory Rate - - Oxygen Saturation 90% 10/23/2024 9:38 AM CONSUMER ELECTRONICS MERCHANDISER Inhaled Oxygen Concentration - - Weight 114.3 kg (252 lb) 10/23/2024 9:38 AM CONSUMER ELECTRONICS MERCHANDISER Height 157.5 cm (5' 2 ) 10/23/2024 9:38 AM CONSUMER ELECTRONICS MERCHANDISER Body Mass Index 46.09 10/23/2024 9:38 AM CONSUMER ELECTRONICS MERCHANDISER Plan of Treatment Upcoming Encounters Date Type Department Care Team (Late st Contact Info) Description 12/24/2024 8:00 AM CONSUMER ELECTRONICS MERCHANDISER Office Visit [facility] Heart and Vascular - [address] [place] [address] Myles Reyes MD [address] [place] [address] Health Maintenance Due Date Last Done Comments DTAP/TDAP/TD VACCINES (1 - Tdap) 1967 ZOSTER VACCINE (1 of 2) 1967 OSTEOPOROSIS SCREENING 2013 RSV VACCINE (60+ or ) (1 - 1-dose 75+ series) 2023 INFLUENZA VACCINE (#1) 2024 09/16/2020, 2018 PNEUMOCOCCAL VACCINE 65+ YEARS Completed 10/16/2019 , 12/05/2017 Advance Directives For more information, please contact: [phone] Documents on File Type Date Recorded Patient Ms Sql Server Developer Expl anation Advance Directive POA 06/19/2024 9:45 AM A dvance Directive POA Care Teams Chief Engineer Production Relationship Specialty Start Date End Date Timothy Donis MD [address] [place] [id number] PCP - General Family Practice 10/30/24
--- OUTSIDE RECORDS SUMMARY | 2024-11-15 06:20 | XMS_ITS | Encounter Summary ---
Author Organization [facility] Address [address] [place] [address] Care Team Providers Care Refractory Specialist Name Role Phone Unavailable Primary Care Provider Unavailabl e Encounter Details Date Type Department Care Team (Late st Contact Info) Description 06/23/2024 External Device Data [facility] ABSTRACTION Provider, Abstract NO ADDRESS ON FILE Social History Tobacco Use Types Packs/Day Years Used Date Smoking Tobacco: Never Smokeless Tobacco: Never Alcohol Use Standard Drinks/Week Comments Not Currently 0 (1 standard drink = 0.6 oz pur e alcohol) Sex and Gender Information Value Date Recorded Sex Assigned at Female 11/03/2024 11:06 AM BATCH RECORDS CLERK Gender Identity Female 11/03/2024 11:06 AM BATCH RECORDS CLERK Sexual Orientation Not on file documented as of this encounter Plan of Treatment Upcoming Encounters Date Type Department Care Team (Late st Contact Info) Description 12/24/2024 8:00 AM BATCH RECORDS CLERK Office Visit [facility] Heart and Vascular - [address] [place] [address] Myles Reyes MD [address] [place] [address] documented as of this encounter Visit Diagnoses Not on filedocumented in this encounter
--- OUTSIDE RECORDS SUMMARY | 2024-11-15 06:20 | XMS_ITS | Encounter Summary ---
Author Organization [facility] Address [address] [place] [address] Phone Care Team Providers Care Vest Baster Name Role Phone Modesto Reyez Primary Care Provider [phone] Encounter Details Date Type Department Care Team (Late st Contact Info) Description 06/08/2021 [facility] Nephrology and Hypertension [address] [facility], [address] [place] [address] Jas Mcfarland MD [address] [facility], [address] [place] [address] Social History Tobacco Use Types Packs/Day Years [...] Miscellaneous Notes * Telephone Encounter - Ni Sanchez - 06/13/2021 11:15 AM CDT Pt called back to reschld for dec * Telephone Encounter - Ni Sanchez - 06/09/2021 11:23 AM CDT LMOR- * Telephone Encounter - Jas Mcfarland MD - 06/08/2021 8:33 PM CDT Please reschedule pt with Dr Franco. documented in this encounter Plan of Treatment Not on file documented as of this encounter Visit Diagnoses Not on filedocumented in this encounter Care Teams Vest Baster Relationship Specialty Start Date End Date Modesto Reyez DO [address] [place] [address] PCP - General Internal Medicine 06/16/20 documented as of this encounter
--- OUTSIDE RECORDS SUMMARY | 2024-11-15 06:20 | XMS_ITS | Clinical Summary ---
Author Organization [facility] Address [address] [place] [id number] Phone Care Team Providers Care Printing Supplies Sales Representative Name Role Phone Modesto Reyez Primary Care Provider [phone] Allergies No known active allergies Medications Medication Sig Dispensed Refills Start Date End Date Status Calcium Carbonate-Vit D-Min (CALCIUM 600+D PLUS MINERALS) 600-400 MG-UNIT tablet Take by mouth Active cholestyramine (QUESTRAN) 4 g packet 06/09/2020 Act anastacia Cyanocobalamin ER (B-12 TR) 2000 MCG tablet controlled-release Take 2,000 mcg by mouth daily Active hydroxychloroquine (PLAQUENIL) 200 MG tablet TK 1 T PO BID 06/02/2020 Active levothyroxine (SYNTHROID, LEVOTHROID) 112 MCG tablet TK 1 T PO QD 06/02/2020 Active pravastatin (PRAVACHOL) 80 MG tablet TK 1 T PO D 07/13/2020 Active apixaban (Eliquis) 5 MG tablet Take 5 mg by mouth 2 times daily 04/11/2021 Active DULoxetine (CYMBALTA) [address] capsule Take 20 mg by mouth 1 (one) time each day 10/24/2021 Active ciprofloxacin (CIPRO) 500 MG tablet 08/20/2022 Active codeine 30 MG tablet 08/21/2022 Acti ve lisinopril (PRINIVIL) 5 MG tablet 07/03/2022 Active phenazopyridine (PYRIDIUM) 200 MG tablet TAKE 1 TABLET BY MOUTH THREE TIMES DAILY NEEDED FOR URINARY SYMPTOMS 11/10/2021 Active potassium chloride (KLOR-CON M20) 20 MEQ CR tablet 08/20/2022 Active traMADol (ULTRAM) 50 MG tablet Take 50 mg by mouth every 8 (eight) hours if needed for pain 07/13/2022 Active predniSONE (DELTASONE) 5 MG tablet 08/20/2022 Active furosemide (LASIX) 20 MG tablet 06/22/2022 Active metoprolol succinate XL (Toprol XL) 25 MG 24 hr tablet 06/22/2022 Active potassium chloride (MICRO-K) 10 MEQ CR capsule 08/21/2022 Active Abatacept (Orencia ClickJect) 125 MG/ML solution auto-injector 06/22/2022 Active trimethoprim (TRIMPEX) 100 MG tablet Take 100 mg by mouth daily 07/03/2022 Active Active Problems Problem Noted Date Diagnosed Date Chronic urinary tract infection 06/21/2022 Overview (08/22/2022): Last Assessment & Plan: Takes Bactrim 100mg qhs for prophylaxis. Resume today. Was not transferred on med but have confirmed with patient and record she should continue on. Hyperlipidemia 05/27/2022 Overview (08/22/2022): Last Assessment & Plan: Continue home med pravastatin 80 mg daily Recurrent major depression in partial remission 05/27/2022 Overview (08/22/2022): Last Assessment & Plan: Mood stable. Continue home med Zoloft 50 mg, Cymbalta Interstitial pulmonary disease 11/09/2021 Obstructive sleep apnea syndrome 07/07/2020 Body mass index 40+ - severely obese 05/05/2020 Chronic diastolic heart failure 05/05/2020 Rheumatoid arthritis 05/05/2020 Atrial fibrillation 02/09/2020 Long-term current use of anticoagulant 0 Longstanding persistent atrial fibrillation 01/23 Overview (08/22/2022): Last Assessment & Plan: SEE ABOVE Chronic kidney disease Chronic interstitial lung disease Chronic respiratory failure Congestive heart failure H/O: pulmonary embolus Hypertension Hypothyroidism Obesity Osteoarthritis Pulmonary hypertension Immunizations Name Administration Dates Next Due Influenza, Unspecified 09/08/2021 Pneumococcal Polysaccharide 10/16/2019 Sars-cov-2, Unspecified 03/10/2021 Family History Medical History Relation Comments Pulmonary embolism Father Rheumatoid arthritis Father Hypertension Mother Relation Status Comments Father Mother Social History Tobacco Use Types Packs/Day Years [...] on file Sexual Orientation Not on file Last Filed [...] Mass Index 42.51 08/22/2022 1:15 PM CDT Plan of Treatment Health Maintenance Due Date Last Done Comments Pneumococcal PPSV23/PCV13 65 + Years / High and Highest Risk (2 of 3 - PCV) 10/16/2020 10/16/2019 Influenza Vaccine (#1) 2024 09/08/2021 Care Teams Printing Supplies Sales Representative Relationship Specialty Start Date End Date Modesto Reyez DO [address] [place] [address] PCP - General Internal Medicine 06/16/20
--- OUTSIDE RECORDS SUMMARY | 2024-11-15 06:20 | XMS_ITS | Encounter Summary ---
Author Organization [facility] Address [address] [place] [address] Care Team Providers Care Capacitor Repairer Name Role Phone Unavailable Primary Care Provider Unavailabl e Reason for Visit * Reason Onset Date Comments Question 08/14/2024 Encounter Details Date Type Department Care Team (Late st Contact Info) Description 08/14/2024 Telephone [facility] Heart and Vascular - [address] [place] [address] Myles Reyes MD [address] [place] [address] Question Social History Tobacco Use Types Packs/Day Years Used Date Smoking Tobacco: Never Smokeless Tobacco: Never Alcohol Use Standard Drinks/Week Comments Not Currently 0 (1 standard drink = 0.6 oz pur e alcohol) Sex and Gender Information Value Date Recorded Sex Assigned at Female 11/03/2024 11:06 AM ACCOUNTING RECONCILIATION CLERK Gender Identity Female 11/03/2024 11:06 AM ACCOUNTING RECONCILIATION CLERK Sexual Orientation Not on file documented as of this encounter Miscellaneous Notes * Addendum Note - Daja Bajwa LPN - 08/14/2024 1:58 PM CDTAddended by: DAJA BAJWA on: 08/14/2024 01:58 PM Modules accepted: Orders * Telephone Encounter - Daja Bajwa LPN - 08/14/2024 1:57 PM CDT Dtr Mae notified and agrees to recommendations. She is already taking potassium 20 Meq bid. Lab order faxed to [facility] * Telephone Encounter - Daja Bajwa LPN - 08/14/2024 1:51 PM CDT Images from the original note were not included. Nicole Strauss, SOLUTION PROFESSIONAL-BC Daja Bajwa LPN Caller: Unspecified (Today, 11:06 AM) Ok to increase to 80mg BID and add klor cont 10meq BID, repeat bmp 2 weeks Nicole * Telephone Encounter - Daja Bajwa LPN - 08/14/2024 11:24 AM CDT Mae reports FALCON walking from chair to stair lift. Mild ankle swelling. Weight today 241 LB. She has been taking 80/40 more than 2 weeks. Please advise * Telephone Encounter - Melonie Gimenez RMA - 08/14/2024 11:06 AM CDT Pt daughter states her weight has only gone down 2 pounds. Pt is still very sob and heart rate goesup and O2 drops every time she stands up. Please advise. documented in this encounter Plan of Treatment Upcoming Encounters Date Type Department Care Team (Late st Contact Info) Description 12/24/2024 8:00 AM ACCOUNTING RECONCILIATION CLERK Office Visit [facility] Heart and Vascular - [address] [place] [address] Myles Reyes MD [address] [place] [address] Scheduled Orders Name Type Priority Associated Diagnoses Orde r Schedule BASIC METABOLIC PANEL Lab Routine Chronic diastolic heart failure Expected: 08/28/2024, Expires: 08/14/2025 documented as of this encounter Visit Diagnoses Diagnosis Chronic diastolic heart failure- Primary documented in this encounter
--- OUTSIDE RECORDS SUMMARY | 2024-11-15 06:20 | XMS_ITS | Encounter Summary ---
Author Organization [facility] Address [address] [place] [address] Phone Care Team Providers Care Patent Chemist Name Role Phone Modesto Reyez DO Primary Care Provider [phone] Encounter Details Date Type Department Care Team (Late st Contact Info) Description 08/28/2022 [facility] Nephrology and Hypertension [address] [facility], [address] [place] [address] Karly Mcfarland RN Social History Tobacco Use Types Packs/Day [...] encounter Miscellaneous Notes * Telephone Encounter - Ariana Franco MD - 08/30/2022 2:46 PM CDT LATE ENTRY: discussed labs with daughter Mae; renal function is stable if not better and apparently patient has uric acid stones based on pathology; would probably recommend starting allopurinol for that; unclear why WBC is still elevated but she will discuss with Thermite Bomb Loader. * Telephone Encounter - Karly Mcfarland RN - 08/28/2022 2:11 PM CDT Pt's daughter called re: recent labs from dr gay done at [place]. Mae requesting [facility] take alook at the uric acid. Mae also stated pt had labs done at [facility] for rheum. Per mae pt's whitecount is up. Laine would like to discuss labs with [facility]. Please call documented in this encounter Plan of Treatment Not on file documented as of this encounter Visit Diagnoses Not on filedocumented in this encounter Care Teams Patent Chemist Relationship Specialty Start Date End Date Modesto Reyez DO [address] [place] [id number] PCP - General Internal Medicine 06/16/20 documented as of this encounter
--- OUTSIDE RECORDS SUMMARY | 2024-11-15 06:20 | XMS_ITS | Encounter Summary ---
Author Organization [facility] Address [address], [place] [address] Phone Care Team Providers Care Footwear Factory Worker Name Role Phone Modesto Reyez Primary Care Provider [phone] Encounter Details Date Type Department Care Team (Late st Contact Info) Description 09/08/2020 11:30 AM CDT Office Visit [facility] Nephrology and Hypertension [address] [place] [address], [address] [place] [address] Ariana Franco MD [address] [facility], [address] [place] [address] Chronic kidney disease, stage 3b; Hypertensive renal disease Social History Tobacco Use Types Packs/Day [...] Sign Reading Time Taken Comments Blood Pressure 138/78 09/08/2020 11:17 AM CDT Pulse - - Temperature 36.7 ??C (98.1 ??F) 09/08/2020 11:17 AM C DT Respiratory Rate 18 09/08/2020 11:17 AM CDT Oxygen Saturation - - Inhaled Oxygen Concentration - - Weight 114 kg (252 lb) 09/08/2020 11:17 AM CDT Height 160 cm (5' 3 ) 09/08/2020 11:17 AM CDT Body Mass Index 44.64 09/08/2020 11:17 AM CDT documented in this encounter Progress Notes * Ariana Franco MD - 09/08/2020 11:30 AM CDT FOLLOW-UP OFFICE VISIT Patient: Ayanna Cash Birthdate: 1950 PCP: Modesto Reyez DO Visit Date: 09/08/2020 INTERIM HISTORY Ayanna Cash here for follow-up regarding her elevated creatinine/renal insufficiency/chronic kidney disease. She was seen about a month ago for initial evaluation of this issue. Since last seen, he/she appears to be doing reasonably well. No apparent distress or concerns voiced at this time. No issues or problems to report on this clinic visit. Past medical history, social history and family history has not changed since previous visit. ALLERGIES No Known Allergies MEDICATIONS Current Outpatient Medications: ??? Calcium Carbonate-Vit D-Min (CALCIUM 600+D PLUS MINERALS) 600-400 MG-UNIT tablet, Take by mouth, Disp: , Rfl: ??? cholestyramine (QUESTRAN) 4 g packet, , Disp: , Rfl: ??? Cyanocobalamin ER (B-12 TR) 2000 MCG tablet controlled-release, Take 2,000 mcg by mouth daily, Disp: , Rfl: ??? folic acid (FOLVITE) 1 MG tablet, TK 1 T PO D, Disp: , Rfl: ??? furosemide (LASIX) 40 MG tablet, Take 1 tablet po in the morning and 0.5 tablet po in the evening., Disp: , Rfl: ??? hydroxychloroquine (PLAQUENIL) 200 MG tablet, TK 1 T PO BID, Disp: , Rfl: ??? levothyroxine (SYNTHROID, LEVOTHROID) 112 MCG tablet, TK 1 T PO QD, Disp: , Rfl: ??? methotrexate 2.5 MG tablet, TK 3 TS PO ONCE WEEKLY, Disp: , Rfl: ??? metoprolol succinate XL (TOPROL-XL) 100 MG 24 hr tablet, , Disp: , Rfl: ??? metoprolol succinate XL (TOPROL-XL) 25 MG 24 hr tablet, , Disp: , Rfl: ??? potassium chloride (KLOR-CON) 10 MEQ CR tablet, Take 10 mEq by mouth daily, Disp: , Rfl: ??? pravastatin (PRAVACHOL) 80 MG tablet, TK 1 T PO D, Disp: , Rfl: ??? predniSONE (DELTASONE) 10 MG tablet, TK 1 T PO QAM, Disp: , Rfl: ??? warfarin (COUMADIN) 3 MG tablet, , Disp: , Rfl: ??? warfarin (COUMADIN) 6 MG tablet, TK 1 T PO D AT 5PM, Disp: , Rfl: REVIEW OF SYSTEMS Constitutional: No fever, weight loss or gain, no fatigue. No loss of appetite. Cardiovascular: No chest pain. No Orthopnea, PND. Respiratory: No cough, no sputum production, no SOB or FALCON. : No dysuria or gross hematuria. No frequency or urgency. No nocturia. Skin: No rash or itching. VITALS BP 138/78 (BP Location: Right arm, Patient Position: Sitting) Temp 98.1 ??F (36.7 ??C) Resp 18 Ht 5' 3 (1.6 m) Wt 252 lb (114 kg) BMI 44.64 kg/m?? BSA 2.25 m?? PHYSICAL EXAM General: Comfortable and in no acute distress Cardiovascular: Normal S1, S2; no rub Respiratory: Clear bilaterally Abdominal: Soft, non-tender, non-distended; positive bowel sounds Extremities: No cyanosis, clubbing, or edema Skin: Warm and dry RECENT LABS/IMAGING Lab Results Component Value Date BUN 44 08/29/2020 CREATININE 1.6 08/29/2020 EGFRAA 37 08/29/2020 EGFR 32 08/29/2020 NA 140 08/29/2020 K 4.2 08/29/2020 CL 102 08/29/2020 CO2 30 08/29/2020 CA 10.5 08/29/2020 PHOSPHATE 3.1 08/29/2020 ALBUMIN 3.8 08/29/2020 GLUCOSE 92 08/29/2020 PROTCREATUR 71 08/29/2020 Lab Results Component Value Date C3 124 08/29/2020 C4 37.9 08/29/2020 HANNAH negative 08/29/2020 CANCA negative 08/29/2020 PANCA negative 08/29/2020 MSPIKE negative 08/29/2020 MSPIKEURPCT negative 08/29/2020 ANTIGLOMBMAB negative 08/29/2020 ANTIDNADS negative 08/29/2020 01/28/20 Renal U/S: right kidney 10cm, left kidney 10.9cm; right renal cyst but no hydronephrosis present. Creatinine, Serum/Plasma Date Value Ref Range Status 08/29/2020 1.6 mg/dL Final 07/27/2020 1.5 mg/dL Final 06/06/2020 1.2 mg/dL Final 04/19/2020 1.5 mg/dL Final 03/22/2020 1.4 mg/dL Final 02/18/2020 1.3 mg/dL Final 01/03/2020 0.9 mg/dL Final ASSESSMENT AND PLAN 1. Chronic kidney disease, stage 3b 2. Hypertensive renal disease Ayanna has what appears to have chronic kidney disease/renal insufficiency. ?? It would seem the necessity of diuretic therapy to maintain her volume status given her diastolic heart failure likely precipitated by her pulmonary hypertension and suspected obstructive sleep apneais the main reason why her kidney function is abnormal. Her evaluation to date demonstrates a normal renal ultrasound, no significant proteinuria, and a negative serological evaluation. To help reduce the rate of kidney deterioration: Control BP: follow trend Control LDL cholesterol: on statin Control Intact PTH: will check Use GEORGI/ARB: consider if BP rises Low [...] formation. Blood Pressure for this visit is 138/78. The follow up plan to address blood pressure is follow trend. Body mass index is 44.64 kg/m??. Follow up plan to address BMI is diet/exercise as tolerated. Continue current medications Repeat labs prior to next visit Tiffanie Franco MD documented in this encounter Plan of Treatment Not on file documented as of this encounter Procedures Procedure Name Priority Date/Time Associated Diagnosis Comments TOTAL PROTEIN W/ CREATININE, URINE, RANDOM Routine 08/29/2020 RENAL FUNCTION PANEL (RFP) Routine 08/29/2020 ANCA SCREEN W/ MPO AND PR3 W/ REFLEX TO TITER Routine 08/29/2020 COMPLEMENT C3 + C4 Routine 08/29/2020 GLOMERULAR BASEMENT MEMBRANE ANTIBODY (IGG), SERUM Routine 08/29/2020 DSDNA AB, SERUM Routine 08/29/2020 ANTINUCLEAR ANTIBODIES (HANNAH), IFA W/ REFL TITER AND PATTERN Routine 08/29/2020 PROTEIN ELECTROPHORESIS, SERUM Routine 08/29/2020 documented in this encounter Results * Protein Electrophoresis, Serum (08/29/2020) Protein, monoclonal, Serum/Plasma negative g/L EXTERNAL LAB (NON-INTERFAC ED) Blood (Blood, Venous) Historical Provider MD LAB BLOOD ORDERAB LES Performing Organization Address City/[facility]/ZIP Co de Phone Number EXTERNAL LAB (NON-INTERFACED) * Total Protein w/ Creatinine, Urine, Random (08/29/2020) Protein/Creat inine, Urine 71 mg/g creatinine EXTERNAL LAB (NON-INTERFAC ED) Protein, monoclonal/Pr otein, total, Urine negative % EXTERNAL LAB (NON-INTERFAC ED) Historical Provider MD LAB URINE ORDERAB LES EXTERNAL LAB (NON-INTERFACED) * Renal Function Panel (RFP) (08/29/2020) Albumin, Serum/Plasma 3.8 g/L EXTERNAL LAB (NON-INTERFACE D) Calcium, Serum/Plasma 10.5 mg/dL EXTERNAL LAB (NON-INTERFACE D) Carbon dioxide CO2), total, Serum/Plasma 30 mmol/L EXTERNAL LAB (NON-INTERFACE D) Chloride, Serum/Plasma 102 mmol/L EXTERNAL LAB (NON-INTERFACE D) Creatinine, Serum/Plasma 1.6 mg/dL EXTERNAL LAB (NON-INTERFACE D) Glucose, Serum/Plasma 92 mg/dL EXTERNAL LAB (NON-INTERFACE D) Phosphate, Serum/Plasma 3.1 mg/dL EXTERNAL LAB (NON-INTERFACE D) Potassium, Serum/Plasma 4.2 mmol/L EXTERNAL LAB (NON-INTERFACE D) Sodium, Serum/Plasma 140 mmol/L EXTERNAL LAB (NON-INTERFACE D) Urea nitrogen, Serum/Plasma (BUN) 44 mg/dL EXTERNAL LAB (NON-INTERFACE D) eGFR, non 32 mL/min EXTERNAL LAB (NON-INTERFACE D) eGFR, 37 mL/min EXTERNAL LAB (NON-INTERFACE D) Blood (Blood, Venous) Historical Provider MD LAB BLOOD ORDERAB LES Performing Organization Address [facility] Co de Phone Number EXTERNAL LAB (NON-INTERFACED) * ANCA Screen w/ MPO and PR3 w/ Reflex to Titer (08/29/2020) c-ANCA, Serum negative titer CRAWLER DRAGLINE OPERATOR AL LAB (NON-INTERFAC ED) Neutrophil Cytoplasmic Ab Perinuclear (P-ANCA), Serum negative titer EXTERNAL LAB (NON-INTERFAC ED) Blood (Blood, Venous) Historical Provider MD LAB BLOOD ORDERAB LES Performing Organization Address [facility] de Phone Number EXTERNAL LAB (NON-INTERFACED) * Complement C3 + C4 (08/29/2020) Complement C3, Serum/Plasma 124 g/L EXTERNAL LAB (NON-INTERFACE D) Complement C4, Serum/Plasma 37.9 g/L EXTERNAL LAB (NON-INTERFACE D) Blood (Blood, Venous) Historical Provider MD LAB BLOOD ORDERAB LES Performing Organization Address [facility] Co de Phone Number EXTERNAL LAB (NON-INTERFACED) * Glomerular Basement Membrane Antibody (IGG), Serum (08/29/2020) Glomerular basement membrane IgG Ab, Serum negative EXTERNAL LAB (NON-INTERFAC ED) Blood (Blood, Venous) Historical Provider MD LAB BLOOD ORDERAB LES Performing Organization Address City/[facility]/ZIP Co de Phone Number EXTERNAL LAB (NON-INTERFACED) * dsDNA AB, Serum (08/29/2020) DNA double strand Ab, Serum negative IU/mL EXTERNAL LAB (NON-INTERFAC ED) Blood (Blood, Venous) Historical Provider MD LAB BLOOD ORDERAB LES Performing Organization Address City/[facility]/ZIP Co de Phone Number EXTERNAL LAB (NON-INTERFACED) * Antinuclear Antibodies (HANNAH), IFA w/ Refl Titer and Pattern (08/29/2020) HANNAH, Serum negative EXTERNAL LAB (NON-INTERFACE D) Blood (Blood, Venous) Historical Provider MD LAB BLOOD ORDERAB LES Performing Organization Address [facility]/ZIP Co de Phone Number EXTERNAL LAB (NON-INTERFACED) documented in this encounter Visit Diagnoses Diagnosis Chronic kidney disease, stage 3b Hypertensive renal disease documented in this encounter Care Teams Footwear Factory Worker Relationship Specialty Start Date End Date Modesto Reyez DO [address] [place] [id number] PCP - General Internal Medicine 06/16/20 documented as of this encounter
--- OUTSIDE RECORDS SUMMARY | 2024-11-15 06:20 | XMS_ITS | Encounter Summary ---
Author Organization [facility] Address [address] [address] Phone Care Team Providers Care Child Care Counselor Name Role Phone Modesto Reyez Primary Care Provider [phone] Encounter Details Date Type Department Care Team (Late st Contact Info) Description 01/05/2021 9:00 AM SIDEHAND Office Visit [facility] Nephrology and Hypertension [address] [place] [address], [address] [place] [address] Ariana Franco MD [address] [facility], [address] [place] [address] Stage 3b chronic kidney disease (CMS-HCC); Benign hypertension with chronic kidney disease [...] Sign Reading Time Taken Comments Blood Pressure 132/70 01/05/2021 9:00 AM SIDEHAND Pulse - - Temperature 35.9 ??C (96.6 ??F) 01/05/2021 9:00 AM CS T Respiratory Rate 18 01/05/2021 9:00 AM SIDEHAND Oxygen Saturation - - Inhaled Oxygen Concentration - - Weight 115 kg (254 lb) 01/05/2021 9:00 AM SIDEHAND Height 160 cm (5' 3 ) 01/05/2021 9:00 AM SIDEHAND Body Mass Index 44.99 01/05/2021 9:00 AM SIDEHAND documented in this encounter Progress Notes * Ariana Franco MD - 01/05/2021 9:00 AM CST FOLLOW-UP OFFICE VISIT Patient: Ayanna Cash Birthdate: 1950 PCP: Modesto Reyez DO Visit Date: 01/05/2021 INTERIM HISTORY Ayanna Cash here for follow-up regarding her chronic kidney disease. She seems to be feeling relatively well since I last saw her. No apparent distress or concerns expressed at this time. No issues or other matters conveyed on this clinic visit. Past medical history, [...] in the evening., Disp: , Rfl: ??? HYDROcodone-acetaminophen (NORCO) 5-325 MG per tablet, Take 1 tablet by mouth 2 (two) times a day if needed for pain, Disp: , Rfl: ??? hydroxychloroquine (PLAQUENIL) 200 [...] D, Disp: , Rfl: ??? predniSONE (DELTASONE) 1 MG tablet, SEE ATTACHED, Disp: , Rfl: ??? warfarin (COUMADIN) 3 [...] Skin: No rash or itching. VITALS BP 132/70 (BP Location: Right arm, Patient Position: Sitting) Temp 96.6 ??F (35.9 ??C) Resp 18 Ht 5' 3 (1.6 m) Wt 254 lb (115 kg) BMI 44.99 kg/m?? BSA 2.26 m?? PHYSICAL EXAM General: Comfortable and in no acute distress Cardiovascular: Normal S1, S2; no rub Respiratory: Clear bilaterally Abdominal: Soft, non-tender, non-distended; positive bowel sounds Extremities: No cyanosis, clubbing, or edema Skin: Warm and intact RECENT LABS/IMAGING Lab Results Component Value Date BUN 39 12/22/2020 CREATININE 1.4 12/22/2020 EGFRAA 43 12/22/2020 EGFR 37 12/22/2020 NA 137 12/22/2020 K 4.3 12/22/2020 CL 106 12/22/2020 CO2 28 12/22/2020 CA 10.3 12/22/2020 PHOSPHATE 3.5 12/22/2020 ALBUMIN 4.2 12/22/2020 GLUCOSE 85 12/22/2020 PROTCREATUR 220 12/22/2020 PTH 46.5 12/22/2020 VITD 43.6 12/22/2020 01/28/20 Renal U/S: right kidney 10cm, left kidney 10.9cm; right renal cyst but no hydronephrosis present. Creatinine, Serum/Plasma Date Value Ref Range Status 12/22/2020 1.4 mg/dL Final 08/29/2020 1.6 mg/dL Final 07/27/2020 1.5 mg/dL Final 06/06/2020 1.2 mg/dL Final 04/19/2020 1.5 mg/dL Final 03/22/2020 1.4 mg/dL Final 02/18/2020 1.3 mg/dL Final 01/03/2020 0.9 mg/dL Final ASSESSMENT AND PLAN 1. Stage 3b chronic kidney disease (CMS-HCC) 2. Benign hypertension with chronic kidney disease PLAN: Ayanna has chronic kidney disease/renal insufficiency. ?? [...] formation. Blood Pressure for this visit is 132/70. The follow up plan to address blood pressure is follow trend. Body mass index is 44.99 kg/m??. Follow up plan to address BMI is diet/exercise as tolerated. Continue current medications Repeat labs prior to next visit Tiffanie Franco MD documented in this encounter Plan of Treatment Not on file documented as of this encounter Procedures Procedure Name Priority Date/Time Associated Diagnosis Comments PTH, INTACT W/ CALCIUM Routine 12/22/2020 VITAMIN D, 1, 25-DIHYDROXY Routine 12/22/2020 TOTAL PROTEIN W/ CREATININE, URINE, RANDOM Routine 12/22/2020 RENAL FUNCTION PANEL (RFP) Routine 12/22/2020 documented in this encounter Results * PTH, Intact w/ Calcium (12/22/2020) PTH, Intact, Serum/Plasma 46.5 ng/L EXTERNAL LAB (NON-INTERFACE D) Historical Provider MD LAB BLOOD ORDERAB LES Performing Organization Address [facility] Co de Phone Number EXTERNAL LAB (NON-INTERFACED) * Vitamin D, 1, 25-Dihydroxy (12/22/2020) 25-Hydroxyvitam in D2+25-Hydroxyvi tamin D3, Serum/Plasma 43.6 ng/mL EXTERNAL LAB (NON-INTERFACE D) Historical Provider MD LAB BLOOD ORDERAB LES Performing Organization Address City/[facility]/ZIP Co de Phone Number EXTERNAL LAB (NON-INTERFACED) * Total Protein w/ Creatinine, Urine, Random (12/22/2020) Protein/Creati nine, Urine 220 mg/g creatinine EXTERNAL LAB (NON-INTERFAC ED) Historical Provider MD LAB URINE ORDERAB LES Performing Organization Address [facility]/ZIP Co de Phone Number EXTERNAL LAB (NON-INTERFACED) * Renal Function Panel (RFP) (12/22/2020) Albumin, Serum/Plasma 4.2 g/L EXTERNAL LAB (NON-INTERFACE D) Calcium, Serum/Plasma 10.3 mg/dL EXTERNAL LAB (NON-INTERFACE D) Carbon dioxide CO2), total, Serum/Plasma 28 mmol/L EXTERNAL LAB (NON-INTERFACE D) Chloride, Serum/Plasma 106 mmol/L EXTERNAL LAB (NON-INTERFACE D) Creatinine, Serum/Plasma 1.4 mg/dL EXTERNAL LAB (NON-INTERFACE D) Glucose, Serum/Plasma 85 mg/dL EXTERNAL LAB (NON-INTERFACE D) Phosphate, Serum/Plasma 3.5 mg/dL EXTERNAL LAB (NON-INTERFACE D) Potassium, Serum/Plasma 4.3 mmol/L EXTERNAL LAB (NON-INTERFACE D) Sodium, Serum/Plasma 137 mmol/L EXTERNAL LAB (NON-INTERFACE D) Urea nitrogen, Serum/Plasma (BUN) 39 mg/dL EXTERNAL LAB (NON-INTERFACE D) eGFR, non 37 mL/min EXTERNAL LAB (NON-INTERFACE D) eGFR, 43 mL/min EXTERNAL LAB (NON-INTERFACE D) Blood (Blood, Venous) Historical Provider MD LAB BLOOD ORDERAB LES EXTERNAL LAB (NON-INTERFACED) documented in this encounter Visit Diagnoses Diagnosis Stage 3b chronic kidney disease (CMS-HCC) Benign hypertension with chronic kidney disease documented in this encounter Care Teams Child Care Counselor Relationship Specialty Start Date End Date Modesto Reyez DO [address] [place] [address] PCP - General Internal Medicine 06/16/20 documented as of this encounter
--- OUTSIDE RECORDS SUMMARY | 2024-11-15 06:20 | XMS_ITS | Encounter Summary ---
Author Organization [facility] Address [address] [place] [address] Care Team Providers Care Algebra Teacher Name Role Phone Unavailable Primary Care Provider Unavailabl e Reason for Visit * Reason Onset Date Comments Results 08/14/2024 Encounter Details Date Type Department Care Team (Late st Contact Info) Description 08/14/2024 Telephone [facility] Heart and Vascular - [address] [place] [address] Myles Reyes MD [address] [place] [address] Results Social History Tobacco Use Types Packs/Day Years Used Date Smoking Tobacco: Never Smokeless Tobacco: Never Alcohol Use Standard Drinks/Week Comments Not Currently 0 (1 standard drink = 0.6 oz pur e alcohol) Sex and Gender Information Value Date Recorded Sex Assigned at Female 11/03/2024 11:06 AM DAY CARE AIDE Gender Identity Female 11/03/2024 11:06 AM DAY CARE AIDE Sexual Orientation Not on file documented as of this encounter Miscellaneous Notes * Telephone Encounter - Clarisa Cook - 08/14/2024 10:06 AM CDT LVM to discuss results. Thank you * Telephone Encounter - Clarisa Cook - 08/14/2024 10:06 AM CDT ----- Message from Nicole Strauss sent at 08/14/2024 8:01 AM CDT ----- Cr 1.3, consistent with prior, no changes, continue higher lasix 80/40 documented in this encounter Plan of Treatment Upcoming Encounters Date Type Department Care Team (Late st Contact Info) Description 12/24/2024 8:00 AM DAY CARE AIDE Office Visit [facility] Heart and Vascular - [address] [place] [address] Myles Reyes MD [address] [place] [address] documented as of this encounter Visit Diagnoses Not on filedocumented in this encounter
--- OUTSIDE RECORDS SUMMARY | 2024-11-15 06:20 | XMS_ITS | Encounter Summary ---
Author Organization [facility] Address [address] [place] [address] Care Team Providers Care Sales Exec Name Role Phone Unavailable Primary Care Provider Unavailabl e Reason for Visit * Reason Comments Med Refill Encounter Details Date Type Department Care Team (Late st Contact Info) Description 08/14/2024 Refill [facility] Heart and Vascular - [address] [place] [address] Myles Reyes MD [address] [place] [address] Social History Tobacco Use Types Packs/Day Years Used Date Smoking Tobacco: Never Smokeless Tobacco: Never Alcohol Use Standard Drinks/Week Comments Not Currently 0 (1 standard drink = 0.6 oz pur e alcohol) Sex and Gender Information Value Date Recorded Sex Assigned at Female 11/03/2024 11:06 AM FELTING MACHINE OPERATOR Gender Identity Female 11/03/2024 11:06 AM FELTING MACHINE OPERATOR Sexual Orientation Not on file documented as of this encounter Plan of Treatment Upcoming Encounters Date Type Department Care Team (Late st Contact Info) Description 12/24/2024 8:00 AM FELTING MACHINE OPERATOR Office Visit [facility] Heart and Vascular - [address] [place] [address] Myles Reyes MD [address] [place] [address] documented as of this encounter Visit Diagnoses Not on filedocumented in this encounter
--- OUTSIDE RECORDS SUMMARY | 2024-11-15 06:20 | XMS_ITS | Encounter Summary ---
Author Organization [facility] Address [address] [place] [address] Care Team Providers Care Senior Statistician Name Role Phone Unavailable Primary Care Provider [...] Sex Assigned at Female 11/03/2024 11:06 AM KNOT BORER Gender Identity Female 11/03/2024 11:06 AM KNOT BORER Sexual Orientation Not on file documented as of this encounter Plan of Treatment Upcoming Encounters Date Type Department Care Team (Late st Contact Info) Description 12/24/2024 8:00 AM KNOT BORER Office Visit [facility] Heart and Vascular - [address] [place] [address] Myles Reyes MD [address] [place] [id number] documented as of this encounter Visit Diagnoses Not on filedocumented in this encounter
--- OUTSIDE RECORDS SUMMARY | 2024-11-15 06:20 | XMS_ITS | Encounter Summary ---
Author Organization [facility] Address [address] [place] [address] Phone Care Team Providers Care Box Storage Worker Name Role Phone Modesto Reyez Primary Care Provider [phone] Encounter Details Date Type Department Care Team (Late st Contact Info) Description 11/09/2021 9:00 AM STATE PATROL OFFICER Office Visit [facility] Nephrology and Hypertension [address] [place] [address], [address] [place] [address] Ariana Franco MD [address] [facility], [address] [place] [address] Chronic kidney disease stage 3B (CMS-HCC); Benign [...] Sign Reading Time Taken Comments Blood Pressure 136/72 11/09/2021 9:28 AM STATE PATROL OFFICER Pulse - - Temperature 36.1 ??C (97 ??F) 11/09/2021 9:28 AM STATE PATROL OFFICER Respiratory Rate 18 11/09/2021 9:28 AM STATE PATROL OFFICER Oxygen Saturation - - Inhaled Oxygen Concentration - - Weight 112 kg (246 lb) 11/09/2021 9:28 AM STATE PATROL OFFICER Height 160 cm (5' 3 ) 11/09/2021 9:28 AM STATE PATROL OFFICER Body Mass Index 43.58 11/09/2021 9:28 AM STATE PATROL OFFICER documented in this encounter Progress Notes * Ariana Franco MD - 11/09/2021 9:00 AM CST FOLLOW-UP OFFICE VISIT Patient: Ayanna Cash Birthdate: 1950 PCP: Modesto Reyez DO Visit Date: 11/09/2021 INTERIM HISTORY Ayanna Cash here for follow-up regarding her chronic kidney disease. Since last seen, she appears to be doing fairly well. No apparent distress or concerns stated at this time. No issues or other matters to speak of on this clinic visit. Past medical history, social history and family history has not changed since previous visit. ALLERGIES No Known Allergies MEDICATIONS Current Outpatient Medications: ??? apixaban (Eliquis) 5 MG tablet, Take 5 mg by mouth 2 times daily, Disp: , Rfl: ??? albuterol HFA (PROVENTIL HFA) 108 (90 Base) MCG/ACT inhaler, INHALE 2 PUFFS EVERY 6 HOURS NEEDED FOR SHORTNESS OF BREATH OR WHEEZING, Disp: , Rfl: ??? Calcium Carbonate-Vit D-Min [...] time each day, Disp: , Rfl: ??? folic acid [...] , Disp: , Rfl: ??? potassium chloride (MICRO-K) 10 MEQ CR capsule, , Disp: , Rfl: ??? pravastatin (PRAVACHOL) 80 MG tablet, TK 1 T PO D, Disp: , Rfl: ??? predniSONE (DELTASONE) 10 MG tablet, Take 10 mg by mouth 1 (one) time each day in the morning, Disp: , Rfl: ??? sertraline (ZOLOFT) 50 MG tablet, Take 50 mg by mouth 1 (one) time each day with food, Disp: , Rfl: ??? warfarin (COUMADIN) 3 [...] Skin: No rash or itching. VITALS BP 136/72 (BP Location: Right arm, Patient Position: Sitting) Temp 97 ??F (36.1 ??C) Resp 18 Ht 5' 3 (1.6 m) Wt 246 lb (112 kg) BMI 43.58 kg/m?? BSA 2.23 m?? PHYSICAL EXAM General: Comfortable and in no acute distress Cardiovascular: Normal S1, S2; no rub Respiratory: Clear bilaterally Abdominal: Soft, non-tender, non-distended; positive bowel sounds Extremities: No cyanosis, clubbing, or edema Skin: No rash or nodules RECENT LABS/IMAGING Lab Results Component Value Date BUN 20 11/08/2021 CREATININE 1.1 11/08/2021 EGFRAA 57 11/08/2021 EGFR 49 11/08/2021 NA 134 11/08/2021 K 3.7 11/08/2021 CL 98 11/08/2021 CO2 24 11/08/2021 CA 9.9 11/08/2021 PHOSPHATE 3.0 11/08/2021 ALBUMIN 4.1 11/08/2021 GLUCOSE 114 11/08/2021 PROTCREATUR 222 11/08/2021 PTH 46.5 12/22/2020 VITD 43.6 12/22/2020 01/28/20 Renal U/S: right kidney 10cm, left kidney 10.9cm; right renal cyst but no hydronephrosis present. Creatinine, Serum/Plasma Date Value Ref Range Status 11/08/2021 1.1 mg/dL Final 12/22/2020 1.4 mg/dL Final 08/29/2020 1.6 mg/dL Final 07/27/2020 1.5 mg/dL Final 06/06/2020 1.2 mg/dL Final 04/19/2020 1.5 mg/dL Final 03/22/2020 1.4 mg/dL Final 02/18/2020 1.3 mg/dL Final ASSESSMENT 1. Chronic kidney disease [...] creatinine tends to run ~ 1.2 - 1.6mg/dl - creatinine a bit better by recent testing. To help reduce the rate of kidney [...] formation. Blood Pressure for this visit is 136/72. The follow up plan to address blood pressure is follow trend. Body mass index is 43.58 kg/m??. Follow up plan to address BMI is diet/exercise as tolerated. Continue current medications Repeat labs prior to next visit Tiffanie Franco MD [facility] documented in this encounter Plan of Treatment Not on file documented as of this encounter Procedures Procedure Name Priority Date/Time Associated Diagnosis Comments TOTAL PROTEIN W/ CREATININE, URINE, RANDOM Routine 11/08/2021 RENAL FUNCTION PANEL (RFP) Routine 11/08/2021 documented in this encounter Results * Total Protein w/ Creatinine, Urine, Random (11/08/2021) Protein/Creati nine, Urine 222 mg/g creatinine EXTERNAL LAB (NON-INTERFAC ED) Historical Provider LAB URINE ORDERAB LES EXTERNAL LAB (NON-INTERFACED) * Renal Function Panel (RFP) (11/08/2021) Albumin, Serum/Plasma 4.1 g/L EXTERNAL LAB (NON-INTERFACE D) Calcium, Serum/Plasma 9.9 mg/dL EXTERNAL LAB (NON-INTERFACE D) Carbon dioxide CO2), total, Serum/Plasma 24 mmol/L EXTERNAL LAB (NON-INTERFACE D) Chloride, Serum/Plasma 98 mmol/L EXTERNAL LAB (NON-INTERFACE D) Creatinine, Serum/Plasma 1.1 mg/dL EXTERNAL LAB (NON-INTERFACE D) Glucose, Serum/Plasma 114 mg/dL EXTERNAL LAB (NON-INTERFACE D) Phosphate, Serum/Plasma 3.0 mg/dL EXTERNAL LAB (NON-INTERFACE D) Potassium, Serum/Plasma 3.7 mmol/L EXTERNAL LAB (NON-INTERFACE D) Sodium, Serum/Plasma 134 mmol/L EXTERNAL LAB (NON-INTERFACE D) Urea nitrogen, Serum/Plasma (BUN) 20 mg/dL EXTERNAL LAB (NON-INTERFACE D) eGFR, non 49 mL/min EXTERNAL LAB (NON-INTERFACE D) eGFR, 57 mL/min EXTERNAL LAB (NON-INTERFACE D) Blood (Blood, Venous) Historical Provider MD LAB BLOOD ORDERAB LES EXTERNAL LAB (NON-INTERFACED) documented in this encounter Visit Diagnoses Diagnosis Chronic kidney disease stage 3B (CMS-HCC) Benign hypertension with chronic kidney disease documented in this encounter Care Teams Box Storage Worker Relationship Specialty Start Date End Date Modesto Reyez DO [address] [place] [address] PCP - General Internal Medicine 06/16/20 documented as of this encounter
--- OUTSIDE RECORDS SUMMARY | 2024-11-15 06:20 | XMS_ITS | Encounter Summary ---
Author Organization [facility] Address [address] [place] [address] Care Team Providers Care Building Carpenter Name Role Phone Unavailable Primary Care Provider Unavailabl e Reason for Visit * Reason Comments Congestive Heart Failure (office visit) 4mth fu-SOB, SUBHASH lower leg swelling, weight has gone up. HR has been dropping to 37 with no activity Encounter Details Date Type Department Care Team (Late st Contact Info) Description 10/23/2024 10:00 AM ENGINEER THIRD ASSISTANT Office Visit [facility] Heart and Vascular - [address] [place] [address] Myles Reyes MD [address] [place] [address] Chronic heart failure with preserved ejection fraction (Primary Dx); Longstanding persistent atrial fibrillation; Chronic interstitial lung disease; Chronic anticoagulation; Body mass index (BMI) 45.0-49.9, adult; History of pulmonary embolism Social History Tobacco Use Types Packs/Day Years Used Date Smoking Tobacco: Never Smokeless Tobacco: Never Tobacco Cessation:Counseling Given: Not Answered Alcohol Use Standard Drinks/Week Comments Not Currently 0 (1 standard drink = 0.6 oz pur e alcohol) Sex and Gender Information Value Date Recorded Sex Assigned at Female 11/03/2024 11:06 AM ENGINEER THIRD ASSISTANT Gender Identity Female 11/03/2024 11:06 AM ENGINEER THIRD ASSISTANT Sexual Orientation Not on file documented as of this encounter Last Filed Vital Signs Vital Sign Reading Time Taken Comments Blood Pressure 102/50 10/23/2024 9:38 AM ENGINEER THIRD ASSISTANT Pulse 68 10/23/2024 9:38 AM ENGINEER THIRD ASSISTANT Temperature - - Respiratory Rate - - Oxygen Saturation 90% 10/23/2024 9:38 AM ENGINEER THIRD ASSISTANT Inhaled Oxygen Concentration - - Weight 114.3 kg (252 lb) 10/23/2024 9:38 AM ENGINEER THIRD ASSISTANT Height 157.5 cm (5' 2 ) 10/23/2024 9:38 AM ENGINEER THIRD ASSISTANT Body Mass Index 46.09 10/23/2024 9:38 AM ENGINEER THIRD ASSISTANT documented in this encounter Progress Notes * Myles Reyes MD - 10/23/2024 10:12 AM CST [facility] Cardiology Outpatient Progress Note Date of Service: 10/23/24 Primary Care Physician: No primary care provider on file. Referring Physician: No ref. provider found Chief Complaint Patient presents with Congestive Heart Failure (office visit) 4mth fu-SOB, SUBHASH lower leg swelling, weight has gone up. HR has been dropping to 37 with no activity History of Present Illness: Patient is a [...] was previously followed by Dr. Parker. Her industrial pipefitter journeyman is Dr. Norman. Her warehouse operations manager is Dr. Kobe Gerard. She presented to [facility] on 01/01/2020 with complaint of worsening shortness [...] Spironolactone was discontinued. OLD RECORDS care everywhere [facility]: 02/09/20 HFU w/ CAT- she comes to [...] CPAP machine nightly, but sometimes remove sit long term through the night. PCP follows her INRs [...] trying to lose some weight, following a [id number] Na restriction. Now using a foot pedal [...] 09/29/21 CAT visit-On 09/21/21 she went to [facility] ER for complaint of worsening shortnessof breath. [...] Norman has referred her to pulmonology at [facility] and that appointment is next month. 12-lead ECG performed in the office today was independently interpreted by me and showed sinus rhythm, normal axis and normal intervals, rate 88 beats per minute 11/02/21 Says not feeling any better at all after admission to [facility] with influenza B hurts to doeverything takes a lot out of her, no energy or appetite, SOB same as before. Attributes a lot to being off her pain meds including Hydroxychloroquine and Methotrexate for a while while in hospital. On CPAP. Not much edema though. Pain is mostly in shoulders and hands. Uses heating pad and Tylenol.Saw PCP recently. Sees Pulm at [facility] tomorrow. Using 2L O2 at rest 4L O2 with activity. She notes her O2 drops to 85% on 4L still. Rheum adjusting meds on prednisone for 1 week without noted improvement thus far. Has PT coming into home. 04/17/22 Admitted to [facility] with ILD and CHF admits she hasn't [...] CAT visit - she was hospitalized at [facility] 05/25-05/26 for pulmonary edema, tested positive for COVID, treated for rib fractures due to a fall 2 days prior. Then hospitalized at [facility] 05/27-06/07for treatment of pneumonia (bacterial verses COVID) / COPD exacerbation, diastolic heart failure exacerbation. She became bradycardic on telemetry (heart rate 30-40 with pause up to 3 seconds) so remdesivir was stopped and metoprolol was stopped. IV furosemide caused MIKE so she was discharged without furosemide but it has since been restarted [facility] (currently she is at [facility] in [place]). When she is doing physical therapy her [...] and atrial flutter with RVR. Went to [facility] after February admission then back to [facility] in March after and she feels diet at [facility] is to fault and salty. Cough is incessant at [facility]. Has blood in stool reported soUGI recommended discharge yesterday on Dilt 300mg daily and Toprol XL 150mg Lasix 40mg BID Echo with EF 27% but in AF with RVR. Extensively reviewed [facility] records. Patient's daughter veryconcerned about her [...] them. Today she had an appointment at [facility] with her industrial pipefitter journeyman so she has not been able to [...] 2 hours at night if she is owsaldo. No falls. No CP. Breathing stable no [...] next week, blood work at that time. 10/20/24: seeing Pulm had testing. She asked if she should drink more water due daughter says due to recurrent UTI and has darker and bloody urine they report. She reports more sodium this past week,has not been as consistent weighing herself. Has chronic indwelling catheter does not measure her urine. Denies new change in SOB but lung function not great, wears O2. Edema stable. Daughter has also noted HR in upper 30's at times but she feels fine. She also had diarrhea transient earlier this week Past Medical History: Past Medical History: Diagnosis [...] Prior to Visit Medication Sig Dispense Refill furosemide (LASIX) 80 mg tablet TAKE 1 TABLET(80 MG) BY MOUTH TWICE DAILY 180 Tablet 0 abatacept (Orencia ClickJect) 125 mg/mL Auto-Injector Inject 125 mg by subcutaneous injection. acetaminophen 325 mg Capsule Take by mouth. alendronate (FOSAMAX) 70 mg tablet TAKE 1 TABLET BY MOUTH ONCE WEEKLY ON SATURDAYS apixaban (Eliquis) 5 mg tablet Calcium Carbonate-Vit D3-Min 600 mg calcium- 400 unit Tablet Take by mouth 2 times daily. cephALEXin (KEFLEX) 250 mg capsule Take 250 mg by mouth daily. cholecalciferol, Vitamin D3, 50 mcg (2,000 unit) Tablet Take 1,000 Units by mouth daily. Cholestyramine Light 4 gram Powder in Packet MIX 1 PACKET WITH LIQUID AND DRINK EVERY DAY WITH A MEAL. AVOID OTHER MEDS WITHIN 1 HOUR BEFORE OR 4 TO 6 HOURS AFTER DOSE cyanocobalamin 1,000 mcg Tablet Take 1,000 mcg by mouth daily. diltiaZEM (CARDIZEM CD) 300 mg Controlled Delivery 24 hour capsule Take 300 mg by mouth daily. DULoxetine (CYMBALTA) 20 mg Capsule, Delayed Release(E.C.) Take 20 mg by mouth daily. hydroxychloroquine (PLAQUENIL) 200 mg tablet Take 200 mg by mouth 2 times daily. levothyroxine 112 mcg tablet Take 1 Tablet by mouth daily. metoprolol succinate (TOPROL XL) 100 mg Extended Release 24 hour tablet TAKE 1 TABLET BY MOUTH DAILY ALONG WITH 50MG metoprolol succinate (TOPROL XL) 50 mg Extended Release 24 hour tablet Take 50 mg by mouth daily. pantoprazole (PROTONIX) 40 mg Tablet, Delayed Release (E.C.) Take 40 mg by mouth daily. potassium chloride (KLOR-CON M20) 20 mEq Extended Release tablet Take 20 mEq by mouth 2 times daily. pravastatin (PRAVACHOL) 80 mg tablet Take 80 mg by mouth daily at bedtime. predniSONE (DELTASONE) 2.5 mg tablet Take 2.5 mg by mouth daily. traMADoL (ULTRAM) 50 mg tablet Take 50 mg by mouth every 8 hours as needed for Pain. [DISCONTINUED] sacubitriL-valsartan (ENTRESTO) 24-26 mg Tablet Take 1 Tablet by mouth 2 times daily. No current facility-administered medications on file prior [...] reviewed and are negative. Physical Examination: BP 102/50 (BP Location: Left arm, Patient Position (BP): Sitting, BP Cuff Size: Large Adult) Pulse 68 Ht 5' 2 (1.575 m) Wt 114.3 kg (252 lb) SpO2 90% BMI 46.09 kg/m?? Physical Exam Vitals reviewed. Constitutional: General: [...] Heart sounds: S1 normal and S2 normal. Comments: 1-2+ bilateral LE edema Pulmonary: Effort: Pulmonary effort is normal. Breath [...] Personally reviewed outside records from care everywhere [facility]: 07/11/22 AMBULATORY LICENSED CUSTOMS BROKER REPORT Interpretation: Underlying rhythm is persistent atrial [...] rate. Longest RR intervals appearedto have occurred senior mechanical project manager overnight hours presumably while asleep. Sinus rhythm [...] hemoglobin 9.5 hematocrit 31.3 platelet count 237 Procedures I have personally reviewed and analyzed electronic medical record, pertinent imaging, laboratory studies, ECG, and available consultation notes. Impression: ICD-10-CM ICD-9-CM 1. Chronic heart failure with preserved ejection fraction I50.32 428.9 2. Longstanding persistent atrial fibrillation I48.11 427.31 3. Chronic interstitial lung disease J84.9 515 4. Chronic anticoagulation Z79.01 V58.61 5. Body mass index (BMI) 45.0-49.9, adult Z68.42 V85.42 6. History of pulmonary embolism Z86.711 V12.55 Assessment/Plan of Care: 1. AFib historically paroxysmal [...] lung disease and chronic hypoxic respiratory failure. -At length discussed mention of bradycardia on home pulse oximeter readings. -Offered Holter monitor to track heart rate given intermittent notation of bradycardia albeit asymptomatic. Patient declined at this time. They will continue to monitor closely and if recurrent issues call the office is again my recommendation would be Holter monitor for more definitive assessment as it may need to reduce AV neno blocking agents. 2. BP controlled, goal <130/80mmHg. Monitor BP on routine basis. Call with readings. Continue consistent cardiovascular exercise, weight loss, medication compliance, and low-sodium diet. -Continue Toprol XL 150 mg daily. Continue Entresto 24/26 mg twice daily. Not likely able to tolerate further up titration due to underlying renal failure 3. Mildly decompensated, chronic HFpEF history of HFrEF now recovered historically now reduced LV function EF 20% during AFib with RVR NYHA class III sxs confounded by chronic hypoxic respiratory failure. CHF counseling performed. Follow daily weight, less than 2 g daily sodium intake, medication compliance. Call w/ wt gain >3lb in 24 hrs or worsening edema and/or FALCON. -Echo 04/05/2023 at [facility] EF 25-30% during AFib with RVR [id number] MR moderate pulmonary hypertension RVSP 50 mm Hg. -07/2023 Echo EF improved 50-55% mild RV hypokinesis, mild left atrial enlargement mild MR/TR, no , PASP 30 mmHg. BMP in 1 week. -not a good candidate for SGLT2 inhibitor therapy due to indwelling Paige catheter and h/o recurrent UTI along with propensity for acute on chronic kidney injury. -weight 252lb today up 8 pounds since last visit. -Very lengthy discussion held with the patient and her daughter. Discussed significant increase in fluid intake with UTI while reasonable cannot be broadly recommended unless urine output is droppingand/or stability or decline in daily weights. Explained benefit of tracking daily urine output to understand this difference combined with her daily weight when they call the office for will help us clarify more specifically how best to handle concerns with acute urinary tract infection. Discussed at length the importance patient adheres to recommended low-sodium intake and communicate significant weight gain. Most recent creatinine on 10/01/2024 was 1.4 otherwise stable. -Increase Lasix to 120 mg in a.m., 80 mg in afternoon until weight drops by over 5 pounds. Call theoffice if no such improvement and/or further weight gain. Will provide recommendations on timing ofrepeat BMP as well. She is scheduled to follow-up with nephrology on an outpatient basis. They verbalized understanding and agreed with plan of care. -If worsening failure or greater difficulty in control repeat 2D echocardiac advised. 4. Follow up with Renal as scheduled. Renal function remains a problem creatinine 1.4 but otherwisestable no change in current regimen at this time. Monitor closely. Discussed at length. Discussed at length her recurrent UTI with chronic indwelling Paige catheter. Follow-up with urology and nephrology. 5. Follow-up with pulmonology and Rheumatology as scheduled. Compliance with CPAP for tx of STARR. She will continue on hydroxychloroquine, methotrexate and [...] of the thoracic aorta by CT chest 12/2022. On the day of this visit I spent 45 minutes providing care to this patient including Preparing to see the patient, Obtaining and/or reviewing separately obtained history, Coordinating with bedside members of the care team, Counseling and educating the patient/family/caregiver, Ordering medications,tests or procedures, Documenting clinical information in the medical record, Referring and communication with other health neonatal intensive care unit nurse (not separately reported), Independently interpreting results and communicating results to the patient/family/caregiver (not separately reported), Care coordination (not separately reported), and Excluding time spent performing separately billed procedures and/or services Follow up in the office in Return in about 2 months (around 12/23/2024). or sooner as needed. Thank you for allowing me the privilege of participating in the care this very pleasant patient. Please do not hesitate to contact me with any additional questions or concerns. This note was dictated and transcribed using [employer] Speech Recognition software. Librarian School variances may occur. Despite proofreading, typographical errors may occur. Myles Reyes MD NEER THIRD ASSISTANT documented in this encounter Plan of Treatment Upcoming Encounters Date Type Department Care Team (Late st Contact Info) Description 12/24/2024 8:00 AM ENGINEER THIRD ASSISTANT Office Visit [facility] Heart and Vascular - [address] [place] [id number] Myles Reyes MD [address] [place] [phone] documented as of this encounter Visit Diagnoses Diagnosis Chronic heart failure with preserved ejection fraction- Primary Longstanding persistent atrial fibrillation Chronic interstitial lung disease Chronic anticoagulation Encounter for long-term (current) use of anticoagulants Body mass index (BMI) 45.0-49.9, adult History of pulmonary embolism Personal history of pulmonary embolism documented in this encounter
--- OUTSIDE RECORDS SUMMARY | 2024-11-15 06:20 | XMS_ITS | Encounter Summary ---
Author Organization [facility] Address [address], [place] [address] Phone Care Team Providers Care Batch Unloader Name Role Phone Modesto Reyez Primary Care Provider [phone] Encounter Details Date Type Department Care Team (Late st Contact Info) Description 08/04/2020 9:00 AM CDT Office Visit [facility] Nephrology and Hypertension [address] [place] [address], [address] [place] [address] Ariana Franco MD [address] [facility], [address] [place] [address] Chronic kidney disease stage 3 (CMS-HCC); Essential (primary) hypertension Social History Tobacco Use Types Packs/Day [...] Sign Reading Time Taken Comments Blood Pressure 140/70 08/04/2020 9:15 AM CDT Pulse - - Temperature 36.6 ??C (97.9 ??F) 08/04/2020 9:15 AM CD T Respiratory Rate 18 08/04/2020 9:15 AM CDT Oxygen Saturation - - Inhaled Oxygen Concentration - - Weight 115 kg (253 lb) 08/04/2020 9:15 AM CDT Height 160 cm (5' 3 ) 08/04/2020 9:15 AM CDT Body Mass Index 44.82 08/04/2020 9:15 AM CDT documented in this encounter Progress Notes * Ariana Franco MD - 08/04/2020 9:00 AM CDT NEW PATIENT CONSULTATION Patient: Ayanna Cash Birthdate: 1950 Referring Provider: Kobe Gerard MD PCP: Modesto Reyez DO Visit Date: 08/04/2020 CHIEF COMPLAINT Elevated creatinine HISTORY OF PRESENT ILLNESS Ayanna Cash is a 70 y.o. / female with a past medical history as outlined below who presents for further evaluation of her elevated creatinine. The patient Head recently see her lapeler for ongoing management of her rheumatoid arthritis. He noted by review of her records that her creatinine had been running somewhat higher than usual since earlier this year and requested renal referral/consultation for further evaluation of this issue. From review of the patient's records, it would seem that in early December, her kidney function was well within normal limits. However she was initiated on diuretic therapy at that time an effort to compensate for her congestive heart failure. Unfortunately, she was hospitalized in January,for acute kidney injury/acute renal failure thought to be secondary to overdiuresis. She subsequently received IV fluids and her kidney function improved but never back to her baseline as she still required diuretic therapy to maintain her volume status given her problems/issues with fluid retention. Since December,, it would seem that her creatinine has been running anywhere from 1.3 - 1.5 mg/dL. This creatinine seems to correlate with stability in her fluid status as well as relative stability in her kidney function in general. With regard to risk factors for kidney disease, she does have hypertension, obstructive sleep apnea, pulmonary hypertension, hyperlipidemia, obesity, and frequent urinary tract infections as well as her recently diagnosed diastolic heart failure. She has no history of coronary artery disease, diabetes, peripheral vascular disease, liver disease, or any otherautoimmune disorders besides her rheumatoid arthritis. She has no history of recent hospitalizations, IV contrast/dye exposure, or new medications with regard to NSAIDs or antibiotics. She reports no issues with hematuria, dysuria, nephrolithiasis, CVA/flank pain or trauma, foamy urine, or urinary incontinence. She denies any other systemic issues/symptoms with regard to fevers, chills, blurry vision, headaches, abdominal pain, nausea, vomiting, diarrhea, chest pain, shortness of breath, palpitations, dizziness, or lightheadedness. Currently, on this clinic visit, she appears in no acute distress. Her daughter is present on this office visit. PAST MEDICAL HISTORY Diagnosis ??? Atrial fibrillation (CMS-HCC) ??? Chronic interstitial lung disease (CMS-HCC) ??? Chronic kidney disease ??? Chronic respiratory failure (CMS-HCC) ??? Congestive heart failure (CMS-HCC) ??? H/O: pulmonary embolus ??? Hypertension ??? Hypothyroidism ??? Obesity ??? Obstructive sleep apnea syndrome ??? Osteoarthritis ??? Pulmonary hypertension (CMS-HCC) ??? Rheumatoid arthritis (CMS-HCC) ALLERGIES No Known Allergies MEDICATIONS Current Outpatient Medications: ??? furosemide (LASIX) 40 MG tablet, Take 1 tablet po in the morning and 0.5 tablet po in the evening., Disp: , Rfl: ??? Calcium Carbonate-Vit D-Min [...] T PO D, Disp: , Rfl: ??? hydroxychloroquine (PLAQUENIL) 200 [...] PO D AT 5PM, Disp: , Rfl: SOCIAL HISTORY Tobacco Use ??? Smoking status: Never Smoker ??? Smokeless tobacco: Never Used Substance Use Topics ??? Alcohol use: Never Frequency: Never ??? Drug use: Never FAMILY HISTORY Problem Relation ??? Hypertension Mother ??? Pulmonary embolism Father ??? Rheumatoid arthritis Father REVIEW OF SYSTEMS Constitutional: No fever, weight loss or gain, no fatigue. No loss of appetite. Eyes: No sudden change in vision, eye pain, or light sensitivity ENMT: No ringing in ear, no nasal drainage. Cardiovascular: No chest pain. No Orthopnea, PND. Respiratory: No cough, no sputum production, no SOB or FALCON. GI: No abdominal pain. No tenderness or masses. : No dysuria or gross hematuria. No frequency or urgency. No nocturia. Musculoskeletal: No weakness, cramps, or muscle aches. No joint pain. Skin: No rash or itching. Neurologic: No weakness, tingling, or numbness in extremities. No seizures. Psychiatric: Not depressed, no suicidal ideation, generally satisfied with life. Endocrine: No excessive thirst or hunger. Not excessively hot or cold. Hematologic: No abnormal bruising or bleeding. Immunologic: No seasonal allergy/hay fever, no abnormal rashes, no excessive itching. VITALS BP 140/70 (BP Location: Right arm, Patient Position: Sitting) Temp 97.9 ??F (36.6 ??C) Resp 18 Ht 5' 3 (1.6 m) Wt 253 lb (115 kg) BMI 44.82 kg/m?? BSA 2.26 m?? PHYSICAL EXAM Head: Atraumatic, normocephalic Eyes: PERRLA, anicteric sclerae, moist conjuntivae ENMT: Moist mucous membranes, no oral lesions or exudates Neck: Supple, no tenderness or masses Cardiovascular: Normal S1, S2; no rub Respiratory: Clear bilaterally Abdominal: Soft, non-tender, non-distended; positive bowel sounds Skin: No rash, bruising, or excoriations Extremities: No cyanosis, clubbing, or edema Functional: Comfortable and in no acute distress Cognitive: Cranial nerves 2-12 intact, no focal musculoskeletal or sensory deficits noted Psychological: Appropriate affect, alert and oriented to person, place and time RECENT LABS/IMAGES Lab Results Component Value Date BUN 39 07/27/2020 CREATININE 1.5 07/27/2020 EGFRAA 39 07/27/2020 EGFR 34 07/27/2020 NA 136 07/27/2020 K 3.8 07/27/2020 CL 100 07/27/2020 CO2 27 07/27/2020 CA 10 07/27/2020 ALBUMIN 4.6 07/27/2020 GLUCOSE 128 07/27/2020 Creatinine, Serum/Plasma Date Value Ref Range Status 07/27/2020 1.5 mg/dL Final 06/06/2020 1.2 mg/dL Final 04/19/2020 1.5 mg/dL Final 03/22/2020 1.4 mg/dL Final 02/18/2020 1.3 mg/dL Final 01/03/2020 0.9 mg/dL Final 01/28/20 Renal U/S: right kidney 10cm, left kidney 10.9cm; right renal cyst but no hydronephrosis present. ASSESSMENT AND PLAN 1. Chronic kidney disease stage 3 (CMS-HCC) 2. Essential (primary) hypertension Ayanna has what appears to be some degree of chronic kidney disease/ renal insufficiency. It would seem the necessity of diuretic therapy to maintain her volume status given her diastolic heart failure likely precipitated by her pulmonary hypertension and suspected obstructive sleep apneais the main reason why her kidney function is abnormal. However, I do not want discount the possibility there could be other factors playing a role, particularly since she has rheumatoid arthritis which argues that she is more susceptible to autoimmune disorders in general. With this in mind, I will check some baseline serological studies to rule out any instrinsic, infiltrative, or inflammatory disorder, and assess for proteinuria with a random urine protein to creatinine ratio. She already had a renal ultrasound done earlier this year and is noted as above. For now, I will continue her medications as is particularly since it has maintained stability in her fluid And respiratory status with relative stability in her kidney function as well. I will review the above results with the patient on her next clinic visit and determine our next course of action at that time. Blood Pressure for this visit is 140/70. The follow up plan to address blood pressure is follow trend. Body mass index is 44.82 kg/m??. Follow up plan to address BMI is diet/exercise as tolerated. Thank you for allowing me to participate in the care of your patient. Tiffanie Franco MD documented in this encounter Plan of Treatment Not on file documented as of this encounter Procedures Procedure Name Priority Date/Time Associated Diagnosis Comments RENAL FUNCTION PANEL (RFP) Routine 07/27/2020 RENAL FUNCTION PANEL (RFP) Routine 06/06/2020 RENAL FUNCTION PANEL (RFP) Routine 04/19/2020 RENAL FUNCTION PANEL (RFP) Routine 03/22/2020 RENAL FUNCTION PANEL (RFP) Routine 02/18/2020 RENAL FUNCTION PANEL (RFP) Routine 01/03/2020 documented in this encounter Results * Renal Function Panel (RFP) (07/27/2020) Albumin, Serum/Plasma 4.6 g/L EXTERNAL LAB (NON-INTERFACE D) Calcium, Serum/Plasma 10 mg/dL EXTERNAL LAB (NON-INTERFACE D) Carbon dioxide CO2), total, Serum/Plasma 27 mmol/L EXTERNAL LAB (NON-INTERFACE D) Chloride, Serum/Plasma 100 mmol/L EXTERNAL LAB (NON-INTERFACE D) Creatinine, Serum/Plasma 1.5 mg/dL EXTERNAL LAB (NON-INTERFACE D) Glucose, Serum/Plasma 128 mg/dL EXTERNAL LAB (NON-INTERFACE D) Potassium, Serum/Plasma 3.8 mmol/L EXTERNAL LAB (NON-INTERFACE D) Sodium, Serum/Plasma 136 mmol/L EXTERNAL LAB (NON-INTERFACE D) Urea nitrogen, Serum/Plasma (BUN) 39 mg/dL EXTERNAL LAB (NON-INTERFACE D) eGFR, non 34 mL/min EXTERNAL LAB (NON-INTERFACE D) eGFR, 39 mL/min EXTERNAL LAB (NON-INTERFACE D) Blood (Blood, Venous) Historical Provider MD LAB BLOOD ORDERAB LES Performing Organization Address [facility] Co de Phone Number EXTERNAL LAB (NON-INTERFACED) * Renal Function Panel (RFP) (06/06/2020) Creatinine, Serum/Plasma 1.2 mg/dL EXTERNAL LAB (NON-INTERFACE D) Blood (Blood, Venous) Historical Provider MD LAB BLOOD ORDERAB LES Performing Organization Address [facility] Co de Phone Number EXTERNAL LAB (NON-INTERFACED) * Renal Function Panel (RFP) (04/19/2020) Creatinine, Serum/Plasma 1.5 mg/dL EXTERNAL LAB (NON-INTERFACE D) Blood (Blood, Venous) Historical Provider MD LAB BLOOD ORDERAB LES Performing Organization Address [facility] Co de Phone Number EXTERNAL LAB (NON-INTERFACED) * Renal Function Panel (RFP) (03/22/2020) Creatinine, Serum/Plasma 1.4 mg/dL EXTERNAL LAB (NON-INTERFACE D) Blood (Blood, Venous) Historical Provider MD LAB BLOOD ORDERAB LES Performing Organization Address [facility] Co de Phone Number EXTERNAL LAB (NON-INTERFACED) * Renal Function Panel (RFP) (02/18/2020) Creatinine, Serum/Plasma 1.3 mg/dL EXTERNAL LAB (NON-INTERFACE D) Blood (Blood, Venous) Historical Provider MD LAB BLOOD ORDERAB LES Performing Organization Address [facility]/ZIP Co de Phone Number EXTERNAL LAB (NON-INTERFACED) * Renal Function Panel (RFP) (01/03/2020) Creatinine, Serum/Plasma 0.9 mg/dL EXTERNAL LAB (NON-INTERFACE D) Blood (Blood, Venous) Historical Provider LAB BLOOD ORDERAB LES EXTERNAL LAB (NON-INTERFACED) documented in this encounter Visit Diagnoses Diagnosis Chronic kidney disease stage 3 (CMS-HCC) Essential (primary) hypertension documented in this encounter Care Teams Batch Unloader Relationship Specialty Start Date End Date Modesto Reyez DO [address] [place] [address] PCP - General Internal Medicine 06/16/20 documented as of this encounter
--- OUTSIDE RECORDS SUMMARY | 2024-11-15 06:20 | XMS_ITS | Encounter Summary ---
Author Organization [facility] Address [address] [place] [address] Care Team Providers Care Brand Leader Name Role Phone Unavailable Primary Care Provider Unavailabl e Encounter Details Date Type Department Care Team (Late st Contact Info) Description 07/16/2024 External Device Data ST[place] ABSTRACTION Provider, Abstract NO ADDRESS ON FILE Social History Tobacco Use Types Packs/Day Years Used Date Smoking Tobacco: Never Smokeless Tobacco: Never Alcohol Use Standard Drinks/Week Comments Not Currently 0 (1 standard drink = 0.6 oz pur e alcohol) Sex and Gender Information Value Date Recorded Sex Assigned at Female 11/03/2024 11:06 AM MACHINE CLOTHING REPLACER Gender Identity Female 11/03/2024 11:06 AM MACHINE CLOTHING REPLACER Sexual Orientation Not on file documented as of this encounter Plan of Treatment Upcoming Encounters Date Type Department Care Team (Late st Contact Info) Description 12/24/2024 8:00 AM MACHINE CLOTHING REPLACER Office Visit [facility] Heart and Vascular - [address] [place] [address] Myles Reyes MD [address] [place] [id number] documented as of this encounter Visit Diagnoses Not on filedocumented in this encounter
--- OUTSIDE RECORDS SUMMARY | 2024-11-15 06:20 | XMS_ITS | Encounter Summary ---
Author Organization [facility] Address [address] [place] [address] Care Team Providers Care Pulp Bleacher Name Role Phone Unavailable Primary Care Provider [...] Sex Assigned at Female 11/03/2024 11:06 AM INSURANCE CLAIMS ANALYST Gender Identity Female 11/03/2024 11:06 AM INSURANCE CLAIMS ANALYST Sexual Orientation Not on file documented as of this encounter Plan of Treatment Upcoming Encounters Date Type Department Care Team (Late st Contact Info) Description 12/24/2024 8:00 AM INSURANCE CLAIMS ANALYST Office Visit [facility] Heart and Vascular - [address] [place] [address] Myles Reyes MD [address] [place] [address] documented as of this encounter Visit Diagnoses Not on filedocumented in this encounter
--- OUTSIDE RECORDS SUMMARY | 2024-11-15 06:20 | XMS_ITS | Encounter Summary ---
Author Organization [facility] Address [address] [place] [address] Phone Care Team Providers Care Aeronautical Inspector Name Role Phone Modesto Reyez DO Primary Care Provider [phone] Encounter Details Date Type Department Care Team (Late st Contact Info) Description 07/30/2020 Orders Only [facility] Nephrology and Hypertension [address] [facility], [address] [place] [address] Ariana Franco MD [address] [facility], [address] [place] [address] Social History Tobacco Use Types Packs/Day Years Used Date Smoking Tobacco: Never Assessed AUDIT-C Answer Date Recorded Q1: How often [...] on filedocumented in this encounter Care Teams Aeronautical Inspector Relationship Specialty Start Date End Date Modesto Reyez DO [address] [place] [id number] PCP - General Internal Medicine 06/16/20 documented as of this encounter
== END 2024-11-09 08:20 | disposition home or self-care (01) ==
PROVIDERS: PCP Family Medicine; Referring Provider Internal Medicine Cardiovascular Disease; Visit Provider Internal Medicine Nephrology
DX: I12.9 Hypertensive chronic kidney disease with stage 1 through stage 4 chronic kidney disease, or unspecified chronic kidney disease (principal); N18.32 Chronic kidney disease, stage 3b; N25.81 Secondary hyperparathyroidism of renal origin; E55.9 Vitamin D deficiency, unspecified
CPT/HCPCS: 36415; 80069; 82306; 82570; 83970; 84156

== ENCOUNTER 2025-01-18 08:05 | Outpatient (CLI) | payer MEDICARE, SELFPAY ==
--- OUTSIDE RECORDS SUMMARY | 2025-01-18 08:26 | XMS_ITS | Clinical Summary ---
Author Organization [facility] Address [address] [place] [address] Care Team Providers Care Sweatband Drummer Name Role Phone Timothy Donis MD Primary Care Provider [phone] Allergies No known active allergies Medications acetaminophen 325 mg Capsule Take by mouth. [...] Take 1,000 mcg by mouth daily. Active DULoxetine (CYMBALTA) 20 mg Capsule, Delayed Release(E.C.) Take 40 mg by mouth daily. 1 Active hydroxychloroqu [...] 8 hours as needed for Pain. Active furosemide (LASIX) 80 mg tablet TAKE 1 TABLET(80 MG) BY MOUTH TWICE DAILY 180 Tablet 1 4 Active azaTHIOprine (IMURAN) 50 mg tablet Take 50 mg by mouth daily. 5 06/16/20 25 Active colestipoL (COLESTID) 1 gram tablet Take 1 Gram by mouth daily. 4 Active magnesium oxide 250 mg magnesium Tablet Take 250 mg by mouth daily. 4 Active sacubitriL-vals razia (ENTRESTO) 24-26 mg Tablet Take 1 Tablet by mouth 2 times daily. 60 Tablet 11 5 Active dilTIAZem (CARDIZEM CD, CARTIA XT) 300 mg Controlled Delivery 24 hour capsule Take 1 Capsule (300 mg) by mouth daily. 90 Capsule 3 5 Active diltiaZEM (CARDIZEM CD) 300 mg Controlled Delivery 24 hour capsule Take 300 mg by mouth daily. 3 12/24/19 25 Discontinu ed(Reorder ) sacubitriL-vals razia (ENTRESTO) 24-26 mg Tablet Take 1 Tablet by mouth 2 times daily. 56 Tablet 4 12/24/19 25 Discontinu ed(Reorder ) Active Problems Patient Care Coordination No te Formatting of this note migh t be different from the original. [employer] Dr. Amy Ambrose Problem Noted Date Diagnosed Date Chronic kidney disease 06/19/2024 Chronic heart failure with preserved ejection fr action 06/19/2024 Dilated cardiomyopathy 04/12/2023 Primary hypertension 06/28/2022 Overview (06/19/2024): Last Assessment & Plan: BP flucutates, pulse improved. Continues on Toprol 50mg & Lisinopril 5mg. Will increase Lisinopril to 10mg & pt needs to f/u with [employer] outpt. History of pulmonary embolism 06/10/2022 Overview [...] Follows up with Pulmonary, Dr. Norman and cdl b driver Dr. Bauman. PFT scheduled at [facility] 06/15 H/O influenza 11/02/2021 Obstructive sleep apnea [...] Problem Noted Date Diagnosed Date Resolved Date Congestive heart failure 06/19/2024 Body mass index 40.0-44.9, adult 01/17/2024 10/23/2024 Encounters Date Type Department Care Team Description 12/29/2024 External Device Data STL ABSTRACTION Provider, Abstract 12/24/2024 8:00 AM FIELD ARTILLERY OPERATIONS SPECIALIST Office Visit [facility] Heart and Vascular - [address] [place] [address] Myles Reyes MD Chronic heart failure with preserved ejection fraction (CMS/HCC) (Primary Dx); Longstanding persistent atrial fibrillation (CMS/HCC); Primary hypertension; Chronic interstitial lung disease (CMS/HCC); Rheumatoid arthritis, involving unspecified site, unspecified whether rheumatoid factor present (CMS/HCC); Chronic anticoagulation; Body mass index (BMI) 45.0-49.9, adult (CMS/HCC); History of pulmonary embolism 12/17/2024 External Device Data STL ABSTRACTION Provider, Abstract 11/13/2024 Refill [facility] Heart and Vascular - [address] [place] [address] Myles Reyes MD 10/23/2024 10:00 AM FIELD ARTILLERY OPERATIONS SPECIALIST Office Visit [facility] Heart and Vascular - [address] [place] [address] Myles Reyes MD Chronic heart failure with preserved ejection fraction (CMS/HCC) (Primary Dx); Longstanding persistent atrial fibrillation (CMS/HCC); Chronic interstitial lung disease (CMS/HCC); Chronic anticoagulation; Body mass index (BMI) 45.0-49.9, adult (CMS/HCC); History of pulmonary embolism 10/23/2024 Orders Only [facility] Heart and Vascular - [address] [place] [address] Clarisa Cook from Last 3 Months Family History Medical History Relation Name Comments No Known Problems Father No Known Problems Mother Relation Name Status Comments Father Mother Social History Tobacco Use Types Packs/Day Years Used Date Smoking Tobacco: Never Smokeless Tobacco: Never Tobacco Cessation:Counseling Given: Not Answered Alcohol Use Standard Drinks/Week Comments Not Currently 0 (1 standard drink = 0.6 oz pur e alcohol) Comments No Sex and Gender Information Value Date Recorded Sex Assigned at Female 11/03/2024 11:06 AM FIELD ARTILLERY OPERATIONS SPECIALIST Legal Sex Female 1:41 PM CDT Gender Identity Female 11/03/2024 11:06 AM FIELD ARTILLERY OPERATIONS SPECIALIST Sexual Orientation Not on file Last Filed Vital Signs Vital Sign Reading Time Taken Comments Blood Pressure 126/70 12/24/2024 8:08 AM FIELD ARTILLERY OPERATIONS SPECIALIST Pulse 64 12/24/2024 8:08 AM FIELD ARTILLERY OPERATIONS SPECIALIST Temperature - - Respiratory Rate - - Oxygen Saturation 90% 12/24/2024 8:08 AM FIELD ARTILLERY OPERATIONS SPECIALIST Inhaled Oxygen Concentration - - Weight 108.9 kg (240 lb) 12/24/2024 8:08 AM FIELD ARTILLERY OPERATIONS SPECIALIST Height 157.5 cm (5' 2 ) 12/24/2024 8:08 AM FIELD ARTILLERY OPERATIONS SPECIALIST Body Mass Index 43.9 12/24/2024 8:08 AM FIELD ARTILLERY OPERATIONS SPECIALIST Plan of Treatment Upcoming Encounters Date Type Department Care Team (Late st Contact Info) Description 04/23/2025 8:00 AM CDT Office Visit [facility] Heart and Vascular - [address] [place] [address] Myles Reyes MD [address] [place] [address] Health Maintenance Due Date Last Done Comments DTAP/TDAP/TD VACCINES (1 - Tdap) 1967 ZOSTER VACCINE (1 of 2) 1967 OSTEOPOROSIS SCREENING 2013 RSV VACCINE (60+ or ) (1 - 1-dose 75+ series) 2023 INFLUENZA VACCINE (#1) 2024 09/16/2020, 2018 PNEUMOCOCCAL VACCINE 65+ YEARS Completed 10/16/2019 , 12/05/2017 Insurance MEDICARE PART A AND B BCBS SUPP Advance Directives For more information, please contact: [phone] Documents on File Type Date Recorded Patient Security Representative Expl anation Advance Directive POA 06/19/2024 9:45 AM A dvance Directive POA Care Teams Sweatband Drummer Relationship Specialty Start Date End Date Timothy Donis MD [address] [place] [phone] PCP - General Family Practice 10/30/24
--- OUTSIDE RECORDS SUMMARY | 2025-01-18 08:26 | XMS_ITS | Clinical Summary ---
Author Organization [facility] Address [address] [place] [address] Phone Care Team Providers Care Photovoltaic Fabrication Technician Name Role Phone Modesto Reyez Primary Care Provider [phone] Allergies No known active allergies Medications Medication [...] PM CDT Pulse - - Temperature 36.9 C (98.4 F) 08/22/2022 1:15 PM CDT Respiratory Rate 18 08/22/2022 1:15 PM CDT Oxygen Saturation - - Inhaled Oxygen Concentration - - Weight 109 kg (240 lb) 08/22/2022 1:15 PM CDT Height 160 cm (5' 3 ) 08/22/2022 1:15 PM CDT Body Mass Index 42.51 08/22/2022 1:15 PM CDT Plan of Treatment Health Maintenance Due Date Last Done Comments Pneumococcal PPSV23/PCV13 65 + Years / Low and Medium Risk (2 of 3 - PCV) 10/16/2020 10/16/2019 Influenza Vaccine (#1) 2024 09/08/2021 Care Teams Photovoltaic Fabrication Technician Relationship Specialty Start Date End Date Modesto Reyez DO [address] [place] [address] PCP - General Internal Medicine 06/16/20
[2025-01-18 09:09] LABS: Albumin Level 4.1 g/dL (3.5-5.1); Anion Gap 8 mmol/L (4-12); Blood Urea Nitrogen 31 mg/dL (7-17); Calcium 10.2 mg/dL (8.4-10.2); Carbon Dioxide 32 mmol/L (22-30); Chloride 91 mmol/L (98-107); Estimated Glomerular Filt Rate 41; Glucose 87 mg/dL (65-110); Phosphorus 3.4 mg/dL (2.5-4.5); Potassium 4.2 mmol/L (3.4-5.0); Sodium 131 mmol/L (137-145)
[2025-01-18 10:27] LABS: Creatinine Urine 38.1 mg/dL; Total Protein Urine Random 53 mg/dL; Ur Ttl Prot Creatinine Ratio 1.39 mg/mg (0-0.20)
[2025-01-18 10:39] LABS: Vitamin D 25 Hydroxy 59.2 ng/mL
== END 2025-01-18 08:06 | disposition home or self-care (01) ==
PROVIDERS: PCP Family Medicine; Referring Provider Internal Medicine Cardiovascular Disease; Visit Provider Internal Medicine Nephrology
DX: I12.9 Hypertensive chronic kidney disease with stage 1 through stage 4 chronic kidney disease, or unspecified chronic kidney disease (principal); N18.32 Chronic kidney disease, stage 3b; E55.9 Vitamin D deficiency, unspecified
CPT/HCPCS: 36415; 80069; 82306; 82570; 84156

== ENCOUNTER 2025-03-11 08:39 | Outpatient (CLI) | payer MEDICARE, SELFPAY ==
--- NOTE | ~2025-03-11 | CT_ITS ---
Non-contrast CT scan of the Abdomen and Pelvis Clinical indication: Hematuria Technique: 2.5 mm axial scans were obtained through the abdomen and pelvis without intravenous or or al contrast. Dose reduction technique was used on this scan by utilizing automated exposure control a nd iterative reconstruction technique. The dose-length product (DLP) was 1056.64 mGy-cm. COMPARISON: 07/22/2022 Findings: Images through the lung bases reveal stable chronic interstitial disease throughout the vi sualized lung bases. 6 mm nonobstructing left renal stone present. No right renal stone. No ureteral stone or hydronephros is on either side. Right renal cyst present. The liver, spleen, pancreas, and adrenals appear normal. Cholecystectomy clips are present. There is no aortic aneurysm. There is no evidence of bowel obstruction. Images through the pelvis were performed. There is no evidence of ascites or lymphadenopathy. Urinary bladder collapsed around a suprapubic catheter. No adnexal mass seen. Compression fractures of T11 a nd T12 are present, new from prior exam, likely chronic overall. Impression: 6 mm nonobstructing left renal stone. Urinary bladder collapsed around a suprapubic catheter, limiting evaluation. T11 and T12 compression fractures are likely chronic, though new from prior exam. Stable chronic interstitial disease the lung bases. Reviewed, dictated and finalized at location M. Impression: 6 mm nonobstructing left renal stone. Urinary bladder collapsed around a suprapubic catheter, limiting evaluation. T11 and T12 compression fractures are likely chronic, though new from prior exa m. Stable chronic interstitial disease the lung bases.
== END 2025-03-11 08:40 | disposition home or self-care (01) ==
LOC: MICIMG 08:40
PROVIDERS: PCP Family Medicine; Visit Provider Urology
DX: R31.0 Gross hematuria (principal); N20.0 Calculus of kidney; S22.080A Wedge compression fracture of T11-T12 vertebra, initial encounter for closed fracture; X58.XXXA Exposure to other specified factors, initial encounter; R91.8 Other nonspecific abnormal finding of lung field
CPT/HCPCS: 74176

== ENCOUNTER 2025-03-18 07:55 | Outpatient (RCR) | payer MEDICARE, SELFPAY ==
[2025-01-18 09:00] LABS: Hemoglobin 9.1 g/dL (12.0-15.0); Mean Corpuscular HGB Conc 30.3 g/dl (32-36); Mean Corpuscular Hemoglobin 29.1 pg (26-34); Mean Corpuscular Volume 95.8 fl (80-100); Mean Platelet Volume 9.3 fl (7.4-10.4); Platelet Count Result 246 k/mm3 (150-375); Red Blood Count 3.13 M/mm3 (4.2-5.4); Red Cell Distribution Width 13.5 % (11.5-14.5); White Blood Count 9.1 K/mm3 (4.5-10.0)
[2025-01-18 09:12] LABS: Alanine Aminotransferase 12 U/L (6-35); Albumin Level 4.1 g/dL (3.5-5.1); Alkaline Phosphatase 43 U/L (38-126); Anion Gap 8 mmol/L (4-12); Aspartate Amino Transferase 27 U/L (14-36); Bilirubin,Total 0.4 mg/dL (0.2-1.3); Blood Urea Nitrogen 31 mg/dL (7-17); CRP 1.6 mg/dL (<1.0); Calcium 10.2 mg/dL (8.4-10.2); Carbon Dioxide 30 mmol/L (22-30); Chloride 92 mmol/L (98-107); Estimated Glomerular Filt Rate 42; Glucose 87 mg/dL (65-110); Potassium 4.3 mmol/L (3.4-5.0); Sodium 130 mmol/L (137-145)
[2025-01-18 09:33] LABS: Iron 71 ug/dL (37-170)
[2025-01-18 09:43] LABS: Percent Iron Saturation 23 % (20-50)
[2025-01-18 11:31] LABS: Band Neutrophils Percent 1 % (0-6); Eosinophils Absolute Manual 0.45 K/mm3 (0.02-0.50); Eosinophils Percent Manual 5 % (0-4); Lymphocytes Absolute Manual 1.82 K/mm3 (1.1-4.5); Lymphocytes Percent Manual 20 % (18-44); Monocytes Absolute Manual 0.36 K/mm3 (0.1-0.90); Monocytes Percent Manual 4 % (3-9); Neutrophils Absolute Manual 6.46 K/mm3 (1.7-7.2); Neutrophils Percent Manual 70 % (46-73); Total Cells Counted 100
[2025-01-18 11:35] LABS: Ovalocytes 1+; Platelet Estimate Adequate (Adequate); Schistocytes None Seen; Tear Drop Cells 1+
[2025-01-18 13:08] LABS: Erythrocyte Sedimentation Rate 37 mm/hr (0-20)
[2025-02-15 08:25] LABS: Basophils Absolute Auto 0.1 K/mm3 (0.0-0.1); Basophils Percent Auto 0.6 % (0.2-1.2); Hematocrit 32.1 % (37.0-47.0); Hemoglobin 9.4 g/dL (12.0-15.0); Immature Granulocyte Absolute 0.03 K/mm3 (0.00-0.031); Immature Granulocyte Percent A 0.3 % (0-0.5); Lymphocytes Absolute Auto 1.43 K/mm3 (0.9-3.2); Lymphocytes Percent Auto 14.9 % (18.3-44.2); Mean Corpuscular HGB Conc 29.3 g/dl (32-36); Mean Corpuscular Hemoglobin 28.9 pg (26-34); Mean Corpuscular Volume 98.8 fl (80-100); Mean Platelet Volume 9.7 fl (7.4-10.4); Monocytes Percent Auto 10.5 % (2.6-8.5); Neutrophils Absolute Auto 7.1 K/mm3 (1.3-6.7); Neutrophils Percent Auto 73.7 % (45.5-73.1); Platelet Count Result 255 k/mm3 (150-375); Red Blood Count 3.25 M/mm3 (4.2-5.4); Red Cell Distribution Width 14.5 % (11.5-14.5); White Blood Count 9.6 K/mm3 (4.5-10.0)
[2025-02-15 08:36] LABS: Iron 77 ug/dL (37-170)
[2025-02-15 08:41] LABS: Alanine Aminotransferase 13 U/L (6-35); Albumin Level 4.6 g/dL (3.5-5.1); Alkaline Phosphatase 38 U/L (38-126); Anion Gap 9 mmol/L (4-12); Aspartate Amino Transferase 20 U/L (14-36); Bilirubin,Total 0.3 mg/dL (0.2-1.3); Blood Urea Nitrogen 41 mg/dL (7-17); CRP 1.3 mg/dL (<1.0); Calcium 10.7 mg/dL (8.4-10.2); Carbon Dioxide 32 mmol/L (22-30); Chloride 100 mmol/L (98-107); Estimated Glomerular Filt Rate 37; Glucose 104 mg/dL (65-110); Potassium 4.9 mmol/L (3.4-5.0); Sodium 141 mmol/L (137-145)
[2025-02-15 08:46] LABS: Percent Iron Saturation 25 % (20-50)
[2025-02-15 08:49] LABS: Anisocytosis 1+; Hypochromasia 1+; Ovalocytes 1+; Platelet Estimate Adequate (Adequate); Schistocytes None Seen
[2025-02-15 09:01] LABS: Erythrocyte Sedimentation Rate 38 mm/hr (0-20)
[2025-03-18 08:30] LABS: Basophils Percent Auto 0.4 % (0.2-1.2); Eosinophils Percent Auto 0.5 % (0-4.4); Hematocrit 29.1 % (37.0-47.0); Hemoglobin 8.8 g/dL (12.0-15.0); Immature Granulocyte Absolute 0.03 K/mm3 (0.00-0.031); Immature Granulocyte Percent A 0.4 % (0-0.5); Lymphocytes Absolute Auto 0.99 K/mm3 (0.9-3.2); Lymphocytes Percent Auto 12.2 % (18.3-44.2); Mean Corpuscular HGB Conc 30.2 g/dl (32-36); Mean Corpuscular Volume 99.3 fl (80-100); Mean Platelet Volume 9.3 fl (7.4-10.4); Monocytes Absolute Auto 0.8 K/mm3 (0.1-0.6); Monocytes Percent Auto 9.3 % (2.6-8.5); Neutrophils Absolute Auto 6.3 K/mm3 (1.3-6.7); Neutrophils Percent Auto 77.2 % (45.5-73.1); Platelet Count Result 210 k/mm3 (150-375); Red Blood Count 2.93 M/mm3 (4.2-5.4); Red Cell Distribution Width 14.4 % (11.5-14.5); White Blood Count 8.1 K/mm3 (4.5-10.0)
[2025-03-18 08:46] LABS: Alanine Aminotransferase 11 U/L (6-35); Albumin Level 4.3 g/dL (3.5-5.1); Alkaline Phosphatase 40 U/L (38-126); Anion Gap 7 mmol/L (4-12); Aspartate Amino Transferase 21 U/L (14-36); Bilirubin,Total 0.4 mg/dL (0.2-1.3); Blood Urea Nitrogen 31 mg/dL (7-17); CRP 1.6 mg/dL (<1.0); Calcium 9.8 mg/dL (8.4-10.2); Carbon Dioxide 33 mmol/L (22-30); Chloride 96 mmol/L (98-107); Estimated Glomerular Filt Rate 45; Glucose 89 mg/dL (65-110); Potassium 4.5 mmol/L (3.4-5.0); Sodium 136 mmol/L (137-145)
[2025-03-18 09:38] LABS: Erythrocyte Sedimentation Rate 52 mm/hr (0-20)
== END 2025-04-18 23:59 | disposition home or self-care (01) ==
LOC: ANHLAB 07:55
PROVIDERS: PCP Family Medicine
DX: M05.10 Rheumatoid lung disease with rheumatoid arthritis of unspecified site (principal); R79.9 Abnormal finding of blood chemistry, unspecified; Z79.899 Other long term (current) drug therapy
CPT/HCPCS: 36415; 80053; 80069; 82306; 82330; 82570; 82728; 83540; 83550; 84156; 84443; 85025; 85652; 86140

== ENCOUNTER 2025-03-18 07:56 | Outpatient (CLI) | payer MEDICARE, SELFPAY ==
--- OUTSIDE RECORDS SUMMARY | 2025-03-18 08:02 | XMS_ITS | Encounter Summary ---
Author Organization [facility] Address [address] [place] [address] Phone Care Team Providers Care Production Boring Machine Operator Name Role Phone Ni Armas RN Unavailable Lizette Liliana Prakash MD Primary Care Provider [phone] Timothy Donis MD Primary Care Provider [phone] Myles Reyes MD Unavailable [phone] Encounter Details Date Type Department Care Team [...] on file Legal Sex Female 1:14 AM ROLLING ATTENDANT Gender Identity Female 05/04/2020 3:33 PM CDT Sexual Orientation Not on file 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
--- OUTSIDE RECORDS SUMMARY | 2025-03-18 08:02 | XMS_ITS | Encounter Summary ---
Author Organization [facility] Address [address] [place] [address] Phone Care Team Providers Care Cloud Software Engineer Name Role Phone Modesto Reyez DO Primary Care Provider [phone] Ni Armas RN Unavailable Lizette Liliana Prakash MD Primary Care Provider [phone] Timothy Donis MD Primary Care Provider [phone] Myles Reyes MD Unavailable [phone] Encounter Details Date Type Department Care Team [...] on file Legal Sex Female 1:14 AM BRAIDER SETTER Gender Identity Female 05/04/2020 3:33 PM CDT [...] section, eligible to be reviewed 06/0205/31/2022 Eri Sabineflora IAdded from the Screening question BPA, identifying patients that tested positive for COVID in the last 14 days and the result is from a facility outside [facility] . 05/22/2022 05/27/2022 06/17/2022 3:05 AM CDT COVID: Recovered Comment:Added based on recent COVID infection. 06/17/2022 06/18/2022 10/15/2022 3:[address] documented as of this encounter Care Teams Cloud Software Engineer Relationship Specialty Start Date End Date Modesto Reyez DO PCP - General Internal Medicine 01/03/20 01/13/23 Liliana Baron MD PCP - General Internal Medicine 01/14/23 04/11/23 Timothy Donis MD PCP - General Family Practice 04/12/23 Ni Armas, BILLY Registered Nurse Pulmonary Disease 01/11/23 Myles Reyes MD [address] [place] [address] Catering Attendant Cardiology 12/23/24 documented as of this encounter
--- OUTSIDE RECORDS SUMMARY | 2025-03-18 08:02 | XMS_ITS | Referral Summary ---
Author Organization [facility] [place] [address] Address [address] [place] [address] Care Team Providers Care Outside Cutter Name Role Phone Ni Armas RN Unavailable Lizette Timothy Land MD Primary Care Provider [phone] Myles Reyes MD Unavailable [phone] Encounters Date Type Department Care Team Description 01/04/2025 Telephone [facility] Rheumatology [address] [facility] [address]th [place] [address] [place] [address] Sandra Bauman MD Prior Auth (Duloxetine) 12/25/2024 Telephone [facility] Rheumatology [address] [facility] [address] [place] [address] [place] [address] Sandra Bauman MD Prior Auth (AZA) from Last 3 Months Allergies No known [...] 2 (two) times a day 1 Active acetaminophen 325 mg capsule Take [...] TO 6 HOURS AFTER DOSE [address] (PROTONIX) 40 mg [...] tablet once daily 90 tablet 3 4 Active metoprolol XL (TOPROL-XL) 100 mg 24 hr tablet Take 1 tablet (100 mg total) by mouth daily To be taken with Metoprolol 50 mg tablet once daily 90 tablet 3 4 Active cephalexin (KEFLEX) 250 mg capsule Take 1 capsule (250 mg total) by mouth daily 4 Active traZODone (DESYREL) 50 mg tablet TAKE 1 TABLET BY MOUTH EVERY DAY AT BEDTIME NEEDED FOR INSOMNIA 4 Active MAGNESIUM ORAL Take 250 mg by mouth daily Active furosemide (LASIX) 80 mg tablet 4 Active magnesium oxide (MAG-OX) 250 mg (150.8 mg elemental) tablet Take 1 tablet (250 mg total) by mouth daily 4 Active colestipoL (COLESTID) 1 gram tablet Take 1 tablet (1 g total) by mouth daily [address] 40 mg capsule,delayed release(DR/EC) Take 40 mg by mouth daily 30 capsule 2 5 Active azaTHIOprine (IMURAN) 50 mg tabletIndicatio ns:autoimmune disease Take 1 tablet (50 mg total) by mouth daily 30 tablet 2 5 06/16/20 25 Active predniSONE (DELTASONE) 2.5 mg tablet TAKE 1 TABLET(2.5 MG) BY MOUTH DAILY 90 tablet 1 5 Active Active Problems Problem Noted Date Diagnosed Date Body mass index 40.0-44.9, adult ([facility]) 01/17 Pulmonary hypertension 12/12/2023 Osteoarthritis 12/12/2023 Dilated cardiomyopathy 04/12/2023 HFrEF (heart failure with reduced ejection fract ion) 04/12/2023 Primary hypertension 06/28/2022 Assessment & Plan (07/03/2022 11:37 AM CDT): BP flucutates, pulse improved. Continues on Toprol 50mg & Lisinopril 5mg. Will increase Lisinopril to 10mg & pt needs to f/u with [facility] outpt. Assessment & Plan (06/28/2022 10:57 AM [...] Cr, setraline Chronic respiratory failure with hypoxia 022 Assessment & Plan (07/03/2022 11:31 AM CDT): [...] requirement of 2L at rest, 4L with exertion. Continue Anoro Ellipta. Follow-up Pulmonary outpatient. Has an appointment with Pulmonary on 06/15 at [facility] for PFTs, may need to reschedule Assessment [...] Assessment & Plan (06/10/2022 11:30 AM CDT): Held abatacept (DMARD) during acute illness phase, per rheumatology it can be resumed on discharge. Will continue plaquenil, prednisone 15 mg daily. Follows up with mba intern, Dr. Bauman outpatient. Assessment & Plan (06/06/2022 11:02 AM CDT): [...] abatacept. Continue plaquinel Longstanding persistent atrial fibrillation 01/23 Assessment & Plan (06/25/2022 12:56 PM CDT): [...] - will need to f/u w/ her chlorobutadiene scrubber operator for further management upon DC Assessment & [...] Chronic anticoagulation 02/09/2020 ILD (interstitial lung disease) Assessment & Plan (06/10/2022 11:25 AM CDT): At baseline on supplemental oxygen 2 L at rest, 4 L with exertion, prednisone 15 mg, abatacept on hold. Follows up with Pulmonary, Dr. Norman and mba intern Dr. Bauman. PFT scheduled at [facility] 06/15 Assessment & Plan (06/07/2022 12:06 PM [...] to coordinate timing of resumption with rheumatology ([facility], Dr. Sandra Bauman) closer to discharge. Assessment [...] chronic diastolic C HF (congestive heart failure) 06/10/2022 06/25/2022 Assessment & Plan (06/21/2022 10:31 [...] sensitivity results Acute on chronic heart failure 05/27/2022 06/07/2022 Assessment & Plan (06/07/2022 12:04 [...] and cough. Tested + on 05/22/22 at [facility] and repeatedly positive at [facility] on 05/27/2022. s/p remdesivir x2 days for high risk->stopped for bradycardia/pauses w/HR 30-40. Needs full 20 days isolation before quarantine can be lifted ~06/12 per IP. Respiratory status stable, on home oxygen 2 L at rest, 4 L with exertion. Continue to monitor. Assessment & Plan (06/05/2022 1:43 PM CDT): Symptomatic with lethargy, leg swelling, and cough. Tested + on 05/22/22 at [facility] (external result entered and pic of [...] and cough. -Tested + on 05/22/22 at [facility] (external result entered and pic of [...] and cough. -Tested + on 05/22/22 at [facility] (external result entered and pic of [...] and cough. -Tested + on 05/22/22 at [facility] (external result entered and pic of [...] and cough. -Tested + on 05/22/22 at [facility] (external result entered and pic of result in media tab) -s/p remdesivir x2 days for high risk->stopped for bradycardia/pauses w/HR 30-40 yesterday -may be able to lift COVID isolation ~06/02, IP aware Assessment & Plan (05/31/2022 5:09 PM CDT): Symptomatic with lethargy, leg swelling, and cough. -Tested + on 05/22/22 at [facility] (external result entered and pic of [...] days of antibiotics (Azith, CTX) on 05/29/22. Assessment & Plan (06/04/2022 1:15 PM CDT): Reported two weeks of productive green sputum LEARNING STRATEGIST. 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 Completed 7 total days of antibiotics (Azith, CTX) on 05/29. -pulm status at baseline. Assessment & Plan (06/03/2022 8:30 AM CDT): Reported two weeks of productive green sputum LEARNING STRATEGIST. 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 Completed 7 total days of antibiotics (Azith, CTX) on 05/29. -pulm status at baseline. Assessment & Plan (06/02/2022 12:05 PM CDT): Reports two weeks of productive green sputum LEARNING STRATEGIST. Started on cefdinir for PNA and UTI [...] total days of antibiotics (Azith, CTX) on 7/5. -pulm status at baseline Assessment & Plan [...] heart failure with p reserved ejection fraction 05/05/2020 10/01/2023 Assessment & Plan (07/03/2022 11:37 [...] obesity with BMI of 4 5.0-49.9, adult ([facility]) 05/05/2020 10/13/2024 Assessment & Plan (06/07/2022 12:06 PM CDT): PT/OT consulted. Assessment & Plan (05/27/2022 8:21 PM CDT): PT/OT consulted. 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 Not on file Not on file Last Filed Vital Signs Vital Sign Reading Time Taken Comments Blood Pressure 140/77 12/02/2024 8:03 AM SENIOR TECHNICAL PROJECT MANAGER Pulse 66 12/02/2024 8:03 AM SENIOR TECHNICAL PROJECT MANAGER Temperature 36.6 C (97.9 F) 12/02/2024 8:03 AM SENIOR TECHNICAL PROJECT MANAGER Respiratory Rate 18 10/08/2024 12:18 PM SENIOR TECHNICAL PROJECT MANAGER Oxygen Saturation 98% 10/08/2024 12:18 PM SENIOR TECHNICAL PROJECT MANAGER 4 liters o2 Inhaled Oxygen Concentration - - Weight 108.9 kg (240 lb) 12/02/2024 8:03 AM SENIOR TECHNICAL PROJECT MANAGER Height 157.5 cm (5' 2 ) 12/02/2024 8:03 AM SENIOR TECHNICAL PROJECT MANAGER Body Mass Index 43.9 12/02/2024 8:03 AM SENIOR TECHNICAL PROJECT MANAGER Plan of Treatment Not on file Procedures Procedure Name Priority Date/Time Associated Diagnosis Comments CRP (ACUTE PHASE) Routine 01/18/2025 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) High risk medication use ERYTHROCYTE SEDIMENTATION RATE Routine 01/18/2025 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) High risk medication use COMPREHENSIVE METABOLIC PANEL Routine 01/18/2025 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) High risk medication use CBC WITH AUTO DIFFERENTIAL Routine 01/18/2025 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 de Phone Number EXTERNAL LAB * (ABNORMAL) Erythrocyte sedimentation rate (01/18/2025) SCRIBED ESR 37(A) 0 - 20 mm/hr EXTERNAL LAB Blood 01/18/2025 Sandra Bauman MD LAB BLOOD ORDERABLES Final Resul t Performing Organization Address [facility] de Phone Number EXTERNAL LAB * CRP (acute phase) (01/18/2025) Pathologist [facility] SCRIBED CRP 1.6 <1.0 - <1.0 mg/L EXTERNAL LAB Blood 01/18/2025 Sandra Bauman MD LAB BLOOD ORDERABLES Final Resul t Performing Organization Address [facility]/ZIP Co de Phone Number EXTERNAL LAB * (ABNORMAL) Comprehensive metabolic panel (01/18/2025) SCRIBED Creatinine 1.25(A) 0.7 - 1.0 mg/dl EXTERNAL LAB SCRIBED Bilirubin 0.4 0.2 - 1.3 mg/dl EXTERNAL LAB SCRIBED Alkaline Phosphatase 43 38 - 126 Units/L EXTERNAL LAB SCRIBED Alanine Transaminase (ALT) 12 6 - 35 Units/L EXTERNAL LAB SCRIBED Aspartate Transaminase (AST) 27 14 - 36 Units/L EXTERNAL LAB Blood 01/18/2025 Sandra Bauman MD LAB BLOOD ORDERABLES Final Resul t Performing Organization Address [facility] Phone Number EXTERNAL LAB * Hepatitis panel, acute (03/09/2022 9:20 AM CDT) Hep A IgM Nonreactive Nonreactive [facility] Comment: Interpretive Data: If Hep A IgM Ab is reported as Equivocal, a new sample should be drawn in two weeks for testing. Current interpretive data was last revised on 20. Hep B core IgM Nonreactive Nonreactive [facility] Comment: Interpretive Data If HepB Core IgM Ab is reported as Equivocal, a new sample should be drawn in two weeks for testing. Current interpretive data was last revised on 20. Hep C Ab Nonreactive Nonreactive [facility] Comment:Antibodies to HCV no t detected. Does NOT exclude the possibility of recent exposure to HCV. HepBsAg Nonreactive Nonreactive [facility] Blood 03/09/2022 9:20 AM CDT 03/09/2022 10:20 AM CDT Sandra Baumna MD LAB MICROBIOLOGY - GENERAL ORDER KHOA Final Result Performing Organization Address [facility] de Phone Number [facility] Department [place] [address] from Last 3 Months or Most Recently Relevant to Health Maintenance Insurance [facility] MEDICARE MEDICARE BLUE CROSS MEDICARE SUPPLEMENT [facility] MEDICARE [facility]IC[facility] SUPPLE[facility] Advance Directives For more information, please contact: [phone] Documents on File Type Date Recorded Patient Spindraw Operator Expl anation ADVANCE DIRECTIVE 11/03/2021 10:23 AM Pow er of Medical Lab Assistant-Medical * Full Code (Latest Code Status on File) Date Activated Date Inactivated Comments 05/27/2022 7:14 PM 06/07/2022 10:45 PM Care Teams Outside Cutter Relationship Specialty Start Date End Date Timothy Donis MD PCP - General Family Practice 04/12/23 Ni Armas, BILLY Registered Nurse Pulmonary Disease 01/11/23 Myles Reyes MD [address] [place] [address] Cheese Wrapper Cardiology 12/23/24
--- OUTSIDE RECORDS SUMMARY | 2025-03-18 08:02 | XMS_ITS | Encounter Summary ---
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
--- OUTSIDE RECORDS SUMMARY | 2025-03-18 08:02 | XMS_ITS | Clinical Summary ---
Author Organization [facility] Address [address] [place] [address] Care Team Providers Care Child Care Centre Manager Name Role Phone Timothy Donis MD Primary Care Provider [phone] Allergies No known active allergies Medications acetaminophen [...] TWICE DAILY 180 Tablet 1 4 Active Additional Information Patient taking differently: 120 mgOralDAILY, Reported on 01/22/2025 azaTHIOprine (IMURAN) 50 mg tablet Take 50 [...] mouth daily. 90 Capsule 3 5 Active Active Problems Patient Care Coordination No te Formatting of this note migh t be different from the original. Chip Drier Dr. Amy Ambrose Problem Noted Date Diagnosed Date Chronic kidney disease 06/19/2024 Chronic heart failure with preserved ejection fr action 06/19/2024 Dilated cardiomyopathy 04/12/2023 Primary hypertension 06/28/2022 Overview (06/19/2024): Last Assessment & Plan: BP flucutates, pulse improved. Continues on Toprol 50mg & Lisinopril 5mg. Will increase Lisinopril to 10mg & pt needs to f/u with [facility] outpt. History of pulmonary embolism 06/10/2022 Overview [...] Follows up with Pulmonary, Dr. Norman and bindery machine operator Dr. Bauman. PFT scheduled at [facility] 06/15 H/O influenza 11/02/2021 Obstructive sleep apnea [...] Encounters Date Type Department Care Team Description 01/26/2025 External Device Data STL ABSTRACTION Provider, Abstract 01/22/2025 Telephone [facility] - [address] [place] [address] Myles Reyes MD Results (Lab ) 12/29/2024 External Device Data STL ABSTRACTION Provider, Abstract 12/24/2024 8:00 AM SENIOR WEB SERVICES DEVELOPER Office Visit [facility] - [address] [place] [address] Myles Reyes MD Chronic heart failure with preserved ejection fraction (CMS/HCC) (Primary Dx); Longstanding persistent atrial fibrillation (CMS/HCC); Primary hypertension; Chronic interstitial lung disease (CMS/HCC); Rheumatoid arthritis, involving unspecified site, unspecified whether rheumatoid factor present (CMS/HCC); Chronic anticoagulation; Body mass index (BMI) 45.0-49.9, adult (CMS/HCC); History of pulmonary embolism from Last 3 Months Family History Medical [...] Sex Assigned at Female 11/03/2024 11:06 AM SENIOR WEB SERVICES DEVELOPER Legal Sex Female 1:41 PM CDT Gender Identity Female 11/03/2024 11:06 AM SENIOR WEB SERVICES DEVELOPER Sexual Orientation Not on file Last Filed Vital Signs Vital Sign Reading Time Taken Comments Blood Pressure 126/70 12/24/2024 8:08 AM SENIOR WEB SERVICES DEVELOPER Pulse 64 12/24/2024 8:08 AM SENIOR WEB SERVICES DEVELOPER Temperature - - Respiratory Rate - - Oxygen Saturation 90% 12/24/2024 8:08 AM SENIOR WEB SERVICES DEVELOPER Inhaled Oxygen Concentration - - Weight 108.9 kg (240 lb) 12/24/2024 8:08 AM SENIOR WEB SERVICES DEVELOPER Height 157.5 cm (5' 2 ) 12/24/2024 8:08 AM SENIOR WEB SERVICES DEVELOPER Body Mass Index 43.9 12/24/2024 8:08 AM SENIOR WEB SERVICES DEVELOPER Plan of Treatment Upcoming Encounters Date Type Department Care Team (Late st Contact Info) Description 04/29/2025 8:00 AM CDT Office Visit [facility] - [address] [place] [address] Myles Reyes MD [address] [place] [address] Health Maintenance Due Date Last Done Comments DTAP/TDAP/TD VACCINES (1 - Tdap) 1969 Traditional Medicare (ACO) A nnual Wellness Visit 1969 ZOSTER VACCINE (1 of 2) 1967 OSTEOPOROSIS SCREENING 2013 RSV VACCINE (60+ or ) (1 - 1-dose 75+ series) 2023 INFLUENZA VACCINE (#1) 2024 09/16/2020, 2018 PNEUMOCOCCAL VACCINE 50+ YEARS Completed 10/16/2019 , 12/05/2017 Insurance [place] [id number] MEDICARE PART A AND B [facility] SUPP Advance Directives For more information, please contact: [phone] Documents on File Type Date Recorded Patient Liquid Fertilizer Servicer Expl anation Advance Directive POA 06/19/2024 9:45 AM A dvance Directive POA Care Teams Child Care Centre Manager Relationship Specialty Start Date End Date Timothy Donis MD [address] [place] [address] PCP - General Family Practice 10/30/24
--- OUTSIDE RECORDS SUMMARY | 2025-03-18 08:02 | XMS_ITS | Clinical Summary ---
Author Organization [facility] Address [address] [place] [address] Phone Care Team Providers Care Tool Marker Name Role Phone Modesto Reyez Primary Care Provider [phone] Allergies No known active allergies Medications Calcium Carbonate-Vit D-Min (CALCIUM 600+D PLUS MINERALS) 600-400 MG-UNIT tablet Take by mouth Active cholestyramine (QUESTRAN) 4 g packet 06/09/2020 Active Cyanocobalamin ER (B-12 TR) 2000 MCG tablet controlled-rele ase Take 2,000 mcg by mouth daily Active hydroxychloroqu ine (PLAQUENIL) 200 MG tablet TK 1 T PO BID 06/02/2020 A ctive levothyroxine (SYNTHROID, LEVOTHROID) 112 MCG tablet TK 1 T PO QD 06/02/2020 Activ e pravastatin (PRAVACHOL) 80 MG tablet TK 1 T PO D 07/13/2020 Active apixaban (Eliquis) 5 MG tablet Take 5 mg by mouth 2 times daily 04/11/2021 Active DULoxetine (CYMBALTA) [address] capsule Take 20 mg by mouth 1 (one) time each day 10/24/2021 Active ciprofloxacin (CIPRO) 500 MG tablet 08/20/2022 Active codeine 30 MG tablet 08/21/2022 Active lisinopril (PRINIVIL) 5 MG tablet 07/03/2022 Active [...] XL) 25 MG 24 hr tablet 06/22/2022 Act anastacia potassium chloride (MICRO-K) 10 MEQ CR capsule 08/21/2022 Acti ve Abatacept (Orencia ClickJect) 125 MG/ML solution auto-injector 06/22/2022 Activ e trimethoprim (TRIMPEX) 100 MG tablet Take 100 [...] Hypertension Hypothyroidism Obesity Osteoarthritis Pulmonary hypertension Immunizations Immunization Administration Dates Next Due Influenza, Unspecified 09/08/2021 [...] of Binge Drinking Not on file 07/26 Comments Unknown Sex and Gender Information Value Date Recorded Sex Assigned at Not on file Legal Sex Female 8:35 AM MDT Gender Identity Not on file Sexual Orientation [...] 3 - PCV) 10/16/2020 10/16/2019 Influenza Vaccine (Season Ended) 2025 09/08/20 21 Insurance MEDICARE [facility] BLUE CROSS Care Teams Tool Marker Relationship Specialty Start Date End Date Modesto Reyez DO [address] [place] [id number] PCP - General Internal Medicine 06/16/20
--- OUTSIDE RECORDS SUMMARY | 2025-03-18 08:02 | XMS_ITS | Encounter Summary ---
Author Organization [facility] Address [address] [place] [address] Phone Care Team Providers Care Ict Customer Support Officer Name Role Phone Modesto Reyez DO Primary Care Provider [phone] Ni Armas RN Unavailable Lizette Liliana Prakash MD Primary Care Provider [phone] Timothy Donis MD Primary Care Provider [phone] Myles Reyes MD Unavailable [phone] Encounter Details Date Type Department Care Team (Latest Contact Info) Description 01/02/2020 Orders Only [facility] Scanning, Provider Social History Tobacco Use Types Packs/Day Years Used Date Smoking Tobacco: Never Assessed Comments Unknown Sex and Gender Information Value Date Recorded Sex Assigned at Not on file Legal Sex Female 1:14 AM SUPERVISOR PLASTERING Gender Identity Female 05/04/2020 3:33 PM CDT [...] the result is from a facility outside [facility] . 05/22/2022 05/27/2022 06/17/2022 3:05 AM CDT COVID: Recovered Comment:Added based on recent COVID infection. 06/17/2022 06/18/2022 10/15/2022 3:[address] documented as of this encounter Care Teams Ict Customer Support Officer Relationship Specialty Start Date End Date Modesto Reyez DO PCP - General Internal Medicine 01/03/20 01/13/23 Liliana Baron MD PCP - General Internal Medicine 01/14/23 04/11/23 Timothy Donis MD PCP - General Family Practice 04/12/23 Ni Armas, BILLY Registered Nurse Pulmonary Disease 01/11/23 Myles Reyes MD [address] [address] Microeconomics Professor Cardiology 12/23/24 documented as of this encounter
--- OUTSIDE RECORDS SUMMARY | 2025-03-18 08:02 | XMS_ITS | Clinical Summary ---
Author Organization [facility] [address] Address [address] [place] [address] Care Team Providers Care Golf Club Head Inspector And Adjuster Name Role Phone Ni Armas RN Unavailable Lizette Timothy Land MD Primary Care Provider [phone] Myles Reyes MD Unavailable [phone] Allergies No known active allergies Medications pravastatin [...] Diagnosed Date Body mass index 40.0-44.9, adult ([facility]) 01/17 Pulmonary hypertension 12/12/2023 Osteoarthritis 12/12/2023 Dilated cardiomyopathy 04/12/2023 HFrEF (heart failure with reduced ejection fract ion) 04/12/2023 Primary hypertension 06/28/2022 Assessment & Plan (07/03/2022 11:37 AM CDT): BP flucutates, pulse improved. Continues on Toprol 50mg & Lisinopril 5mg. Will increase Lisinopril to 10mg & pt needs to f/u with Mechatronics Technician outpt. Assessment & Plan (06/28/2022 10:57 AM [...] an appointment with Pulmonary on 06/15 at [facility] for PFTs, may need to reschedule Assessment [...] prednisone 15 mg daily. Follows up with sr. merchandise planner, Dr. Bauman outpatient. Assessment & Plan (06/06/2022 [...] - will need to f/u w/ her food sanitarian for further management upon DC Assessment & [...] Follows up with Pulmonary, Dr. Norman and sr. merchandise planner Dr. Bauman. PFT scheduled at [facility] 06/15 Assessment & Plan (06/07/2022 12:06 PM [...] timing of resumption with rheumatology ([facility], Dr. Sandar Bauman) closer to discharge. Assessment & Plan [...] and cough. Tested + on 05/22/22 at [facility] and repeatedly positive at [facility] on 05/27/2022. s/p remdesivir x2 days for high risk->stopped for bradycardia/pauses w/HR 30-40. Needs full 20 days isolation before quarantine can be lifted ~06/12 per IP. Respiratory status stable, on home oxygen 2 L at rest, 4 L with exertion. Continue to monitor. Assessment & Plan (06/05/2022 1:43 PM CDT): Symptomatic with lethargy, leg swelling, and cough. Tested + on 05/22/22 at [facility] (external result entered and pic of [...] and cough. -Tested + on 05/22/22 at [facility] (external result entered and pic of [...] and cough. -Tested + on 05/22/22 at [facility] (external result entered and pic of [...] and cough. -Tested + on 05/22/22 at [facility] (external result entered and pic of [...] and cough. -Tested + on 05/22/22 at [facility] (external result entered and pic of result in media tab) -s/p remdesivir x2 days for high risk->stopped for bradycardia/pauses w/HR 30-40 yesterday -may be able to lift COVID isolation ~06/02, IP aware Assessment & Plan (05/31/2022 5:09 PM CDT): Symptomatic with lethargy, leg swelling, and cough. 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 Completed 7 total days of antibiotics (Azith, CTX) on 05/29. -pulm status at baseline. 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 Completed 7 total days of antibiotics (Azith, CTX) on 05/29. -pulm status at baseline. 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 Started on cefdinir for PNA and UTI [...] obesity with BMI of 4 5.0-49.9, adult ([facility]) 05/05/2020 10/13/2024 Assessment & Plan (06/07/2022 12:06 PM CDT): PT/OT consulted. Assessment & Plan (05/27/2022 8:21 PM CDT): PT/OT consulted. Encounters Date Type Department Care Team Description 01/04/2025 Telephone [facility] Advanced Medicine 5th [place] [address] [place] [address] Sandra Bauman MD Prior Auth (Duloxetine) 12/25/2024 Telephone [facility] Rheumatology [address] [facility] Advanced [facility] [address]th [place] [address] [place] [address] Sandra Bauman MD Prior Auth (AZA) from Last 3 Months Immunizations Immunization Administration Dates Next Due Influenza, [...] section Sleep apnea Cataracts, bilateral Atrial fibrillation (HCC) CHF (congestive heart failure) (HCC) Diastolic dysfunction Heart disease Depression 12/2021 Chronic [...] on file Legal Sex Female 1:14 AM BATTERY CONTAINER INSPECTOR Gender Identity Female 05/04/2020 3:33 PM CDT Sexual Orientation Not on file 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 Not on file Not [...] Comments Blood Pressure 140/77 12/02/2024 8:03 AM BATTERY CONTAINER INSPECTOR Pulse 66 12/02/2024 8:03 AM BATTERY CONTAINER INSPECTOR Temperature 36.6 C (97.9 F) 12/02/2024 8:03 AM BATTERY CONTAINER INSPECTOR Respiratory Rate 18 10/08/2024 12:18 PM BATTERY CONTAINER INSPECTOR Oxygen Saturation 98% 10/08/2024 12:18 PM BATTERY CONTAINER INSPECTOR 4 liters o2 Inhaled Oxygen Concentration - - Weight 108.9 kg (240 lb) 12/02/2024 8:03 AM BATTERY CONTAINER INSPECTOR Height 157.5 cm (5' 2 ) 12/02/2024 8:03 AM BATTERY CONTAINER INSPECTOR Body Mass Index 43.9 12/02/2024 8:03 AM BATTERY CONTAINER INSPECTOR Plan of Treatment Health Maintenance Due Date Last Done Comments Depression Screening 1950 Osteoporosis Screening-Bone Density Scan 1950 DTaP/Tdap/Td Vaccine (1 - Tdap) 1959 Hepatitis B Screening 1966 Zoster Vaccine (1 of 2) 1967 Well Visit 65+ 2013 Fall Risk Assessment 06/07/2023 06/07/2022 Influenza Vaccine (Season Ended) 2025 09/08/2021, 09/16/2020, 10/16/2019 Pneumococcal vaccine 65+ Completed 10/16/2019, [...] - 375 k/cumm EXTERNAL LAB Blood 01/18/2025 us Sandra Bauman MD LAB BLOOD ORDERABLES Final Resul t Performing Organization Address [facility] de Phone Number EXTERNAL LAB * (ABNORMAL) Erythrocyte sedimentation rate (01/18/2025) SCRIBED ESR 37(A) 0 - 20 mm/hr EXTERNAL LAB Blood 01/18/2025 Sandra Bauman MD LAB BLOOD ORDERABLES Final Resul t Performing Organization Address [facility] de Phone Number EXTERNAL LAB * CRP (acute phase) (01/18/2025) Pathologist [facility] SCRIBED CRP 1.6 <1.0 - <1.0 mg/L EXTERNAL LAB Blood 01/18/2025 Sandra Bauman MD LAB BLOOD ORDERABLES Final Resul t Performing Organization Address [facility] de Phone Number EXTERNAL LAB * (ABNORMAL) Comprehensive metabolic panel (01/18/2025) Pathologist [facility] SCRIBED Creatinine 1.25(A) 0.7 - 1.0 mg/dl EXTERNAL LAB SCRIBED Bilirubin 0.4 0.2 - 1.3 mg/dl EXTERNAL LAB SCRIBED Alkaline Phosphatase 43 38 - 126 Units/L EXTERNAL LAB SCRIBED Alanine Transaminase (ALT) 12 6 - 35 Units/L EXTERNAL LAB SCRIBED Aspartate Transaminase (AST) 27 14 - 36 Units/L EXTERNAL LAB Blood 01/18/2025 Result [facility] Sandra Bauman MD LAB BLOOD ORDERABLES Final Resul t Performing Organization Address [facility] de Phone Number EXTERNAL LAB * Hepatitis panel, acute (03/09/2022 9:20 AM CDT) Hep A IgM Nonreactive Nonreactive [facility] Comment: Interpretive Data: If Hep A IgM Ab is reported as Equivocal, a new sample should be drawn in two weeks for testing. Current interpretive data was last revised on 20. Hep B core IgM Nonreactive Nonreactive [facility] Comment: Interpretive Data If HepB Core IgM Ab is reported as Equivocal, a new sample should be drawn in two weeks for testing. Current interpretive data was last revised on 20. Hep C Ab Nonreactive Nonreactive [facility] Comment:Antibodies to HCV no t detected. Does NOT exclude the possibility of recent exposure to HCV. HepBsAg Nonreactive Nonreactive [facility] Blood 03/09/2022 9:20 AM CDT 03/09/2022 10:20 AM CDT Sandra Bauman MD LAB MICROBIOLOGY - GENERAL ORDER KHOA Final Result [facility] Department [place] [address] from Last 3 Months or Most Recently Relevant to Health Maintenance Insurance [facility] MEDICARE [place] [id number] MEDICARE BLUE CROSS MEDICARE SUPPLEMENT [facility] MEDICARE [place] CROSS MEDICARE SUPPLEMENT Advance Directives For more information, please contact: [phone] Documents on File Type Date Recorded Patient Loading Dock Hand Expl anation ADVANCE DIRECTIVE 11/03/2021 10:23 AM Brent er of Cyberathlete[employer] * Full Code (Latest Code Status on File) Date Activated Date Inactivated Comments 05/27/2022 7:14 PM 06/07/2022 10:45 PM Care Teams Golf Club Head Inspector And Adjuster Relationship Specialty Start Date End Date Timothy Donis MD PCP - General Family Practice 04/12/23 Ni Armas, BILLY Registered Nurse Pulmonary Disease 01/11/23 Myles Reyes MD [address] [place] [address] Mechatronics Technician Cardiology 12/23/24
--- OUTSIDE RECORDS SUMMARY | 2025-03-18 08:02 | XMS_ITS | Encounter Summary ---
Author Organization [facility] Address [address] [place] [address] Phone Care Team Providers Care Fly Raiser Lockstitch Name Role Phone Modesto Reyez DO Primary Care Provider [phone] Ni Armas RN Unavailable Lizette Liliana Prakash MD Primary Care Provider [phone] Timothy Donis MD Primary Care Provider [phone] Myles Reyes MD Unavailable [phone] Encounter Details Date Type Department Care Team [...] on file Legal Sex Female 1:14 AM CHECKER DUMP GROUNDS Gender Identity Female 05/04/2020 3:33 PM CDT [...] section, eligible to be reviewed 06/0205/31/2022 Eri Domo IAdded from the Screening question BPA, identifying patients that tested positive for COVID in the last 14 days and the result is from a facility outside [facility] . 05/22/2022 05/27/2022 06/17/2022 3:05 AM CDT COVID: Recovered Comment:Added based on recent COVID infection. 06/17/2022 06/18/2022 10/15/2022 3:[address] documented as of this encounter Care Teams Fly Raiser Lockstitch Relationship Specialty Start Date End Date Modesto Reyez DO PCP - General Internal Medicine 01/03/20 01/13/23 Liliana Baron MD PCP - General Internal Medicine 01/14/23 04/11/23 Timothy Donis MD PCP - General Family Practice 04/12/23 Ni Armas, BILLY Registered Nurse Pulmonary Disease 01/11/23 Myles Reyes MD [address] [place] [address] Travel Services Professional Cardiology 12/23/24 documented as of this encounter
--- OUTSIDE RECORDS SUMMARY | 2025-03-18 08:02 | XMS_ITS | Encounter Summary ---
Author Organization [facility] Address [address] [place] [address] Phone Care Team Providers Care Trouble Lineman Name Role Phone Modesto Reyez DO Primary Care Provider [phone] Ni Armas RN Unavailable Lizette Liliana Prakash MD Primary Care Provider [phone] Timothy Donis MD Primary Care Provider [phone] Myles Reyes MD Unavailable [phone] Encounter Details Date Type Department Care Team [...] on file Legal Sex Female 1:14 AM FIRE INVESTIGATION MANAGER Gender Identity Female 05/04/2020 3:33 PM [...] the result is from a facility outside [facility] . 05/22/2022 05/27/2022 06/17/2022 3:05 AM CDT COVID: Recovered Comment:Added based on recent COVID infection. 06/17/2022 06/18/2022 10/15/2022 3:[address] documented as of this encounter Care Teams Trouble Lineman Relationship Specialty Start Date End Date Modesto Reyez DO PCP - General Internal Medicine 01/03/20 01/13/23 Liliana Baron MD PCP - General Internal Medicine 01/14/23 04/11/23 Timothy Donis MD PCP - General Family Practice 04/12/23 Ni Armas, BILLY Registered Nurse Pulmonary Disease 01/11/23 Myles Reyes MD [address] [place] [address] Beauty Counselor Cardiology 12/23/24 documented as of this encounter
[2025-03-20 14:23] LABS: Ionized Calcium 5.2 mg/dL (4.7-5.5)
== END 2025-03-18 07:57 | disposition home or self-care (01) ==
PROVIDERS: PCP Family Medicine; Visit Provider Family Medicine
DX: E03.9 Hypothyroidism, unspecified (principal); E83.52 Hypercalcemia
CPT/HCPCS: 36415; 80053; 82330; 84443; 85025; 85652; 86140

== ENCOUNTER 2025-03-25 07:52 | Outpatient (CLI) | payer MEDICARE, SELFPAY ==
--- OUTSIDE RECORDS SUMMARY | 2025-03-25 07:59 | XMS_ITS | Encounter Summary ---
Author Organization [facility] Address [address] [place] [address] Phone Care Team Providers Care Therapeutic Assistant Name Role Phone Modesto Reyez DO Primary Care Provider [phone] Ni Armas RN Unavailable Lizette Liliana Prakash MD Primary Care Provider [phone] Timothy Donis MD Primary Care Provider [phone] Myles Reyes MD Unavailable [phone] Encounter Details Date Type Department Care Team (Latest Contact Info) Description 01/02/2020 Orders Only [facility] Scanning, Provider Social History Tobacco Use Types Packs/Day Years Used Date Smoking Tobacco: Never Assessed Comments Unknown Sex and Gender Information Value Date Recorded Sex Assigned at Not on file Legal Sex Female 1:14 AM SOLUTION DESIGN AND ANALYSIS MANAGER Gender Identity Female 05/04/2020 3:33 PM [...] documented as of this encounter Care Teams Therapeutic Assistant Relationship Specialty Start Date End Date Modesto Reyez DO PCP - General Internal Medicine 01/03/20 01/13/23 Liliana Baron MD PCP - General Internal Medicine 01/14/23 04/11/23 Timothy Donis MD PCP - General Family Practice 04/12/23 Ni Armas, BILLY Registered Nurse Pulmonary Disease 01/11/23 Myles Reyes MD [address] [address] Glass Sander Belt Cardiology 12/23/24 documented as of this encounter
--- OUTSIDE RECORDS SUMMARY | 2025-03-25 07:59 | XMS_ITS | Encounter Summary ---
Author Organization [facility] Address [address] [place] [address] Phone Care Team Providers Care Rn Urgent Care Name Role Phone Modesto Reyez DO Primary Care Provider [phone] Ni Armas RN Unavailable Lizette Liliana Prakash MD Primary Care Provider [phone] Timothy Donis MD Primary Care Provider [phone] Myles Reyes MD Unavailable [phone] Encounter Details Date Type Department Care Team [...] file Legal Sex Female 1:14 AM PANEL BEATER Gender Identity Female 05/04/2020 3:33 PM CDT [...] result is from a facility outside [facility] . 05/22/2022 05/27/2022 06/17/2022 3:05 AM CDT COVID: Recovered Comment:Added based on recent COVID infection. 06/17/2022 06/18/2022 10/15/2022 3:[address] documented as of this encounter Care Teams Rn Urgent Care Relationship Specialty Start Date End Date Modesto Reyez DO PCP - General Internal Medicine 01/03/20 01/13/23 Liliana Baron MD PCP - General Internal Medicine 01/14/23 04/11/23 Timothy Donis MD PCP - General Family Practice 04/12/23 Ni Armas, BILLY Registered Nurse Pulmonary Disease 01/11/23 Myles Reyes MD [address] [place] [address] Campus Recruiting Coordinator Cardiology 12/23/24 documented as of this encounter
--- OUTSIDE RECORDS SUMMARY | 2025-03-25 07:59 | XMS_ITS | Clinical Summary ---
Author Organization [facility] Address [address] [place] [address] Care Team Providers Care Welfare Service Aide Name Role Phone Timothy Donis MD Primary Care Provider [phone] Allergies No known active allergies Medications acetaminophen [...] migh t be different from the original. Group Product Manager Dr. Amy Ambrose Problem Noted Date Diagnosed Date Chronic kidney disease 06/19/2024 Chronic heart failure with preserved ejection fr action 06/19/2024 Dilated cardiomyopathy 04/12/2023 Primary hypertension 06/28/2022 Overview (06/19/2024): Last Assessment & Plan: BP flucutates, pulse improved. Continues on Toprol 50mg & Lisinopril 5mg. Will increase Lisinopril to 10mg & pt needs to f/u with Group Product Manager outpt. History of pulmonary embolism 06/10/2022 Overview [...] Follows up with Pulmonary, Dr. Norman and wellness program administrator Dr. Bauman. PFT scheduled at [facility] 06/15 H/O influenza 11/02/2021 Obstructive [...] Data STL ABSTRACTION Provider, Abstract 01/22/2025 Telephone [facility] Vascular - [address] [place] [phone] Myles Reyes MD Results (Lab ) 12/29/2024 External Device Data STL ABSTRACTION Provider, Abstract from Last 3 Months Family History Medical [...] Sex Assigned at Female 11/03/2024 11:06 AM FRONT END TECHNICIAN Legal Sex Female 1:41 PM CDT Gender Identity Female 11/03/2024 11:06 AM FRONT END TECHNICIAN Sexual Orientation Not on file Last Filed Vital Signs Vital Sign Reading Time Taken Comments Blood Pressure 126/70 12/24/2024 8:08 AM FRONT END TECHNICIAN Pulse 64 12/24/2024 8:08 AM FRONT END TECHNICIAN Temperature - - Respiratory Rate - - Oxygen Saturation 90% 12/24/2024 8:08 AM FRONT END TECHNICIAN Inhaled Oxygen Concentration - - Weight 108.9 kg (240 lb) 12/24/2024 8:08 AM FRONT END TECHNICIAN Height 157.5 cm (5' 2 ) 12/24/2024 8:08 AM FRONT END TECHNICIAN Body Mass Index 43.9 12/24/2024 8:08 AM FRONT END TECHNICIAN Plan of Treatment Upcoming Encounters Date Type Department Care Team (Late st Contact Info) Description 04/29/2025 8:00 AM CDT Office Visit [facility] Vascular - [address] [place] [address] Myles Reyes MD [address] [place] [address] Health Maintenance Due Date Last Done Comments DTAP/TDAP/TD VACCINES (1 - Tdap) 1967 ZOSTER VACCINE (1 of 2) 1967 OSTEOPOROSIS SCREENING 2013 RSV VACCINE (60+ or ) (1 - 1-dose 75+ series) 2023 INFLUENZA VACCINE (#1) 2024 09/16/2020, 2018 PNEUMOCOCCAL VACCINE 50+ YEARS Completed 10/16/2019 , 12/05/2017 Insurance MEDICARE PART A AND B BCBS SUPP Advance Directives For more information, please contact: [phone] Documents on File Type Date Recorded Patient Uat Tester Expl anation Advance Directive POA 06/19/2024 9:45 AM A dvance Directive POA Care Teams Welfare Service Aide Relationship Specialty Start Date End Date Timothy Donis MD [address] [place] [address] PCP - General Family Practice 10/30/24
--- OUTSIDE RECORDS SUMMARY | 2025-03-25 07:59 | XMS_ITS | Clinical Summary ---
Author Organization [facility] Address [address] [place] [address] Phone Care Team Providers Care Youth Agent Name Role Phone Modesto Reyez Primary Care Provider Allergies No known active allergies Medications Calcium [...] (Season Ended) 2025 09/08/20 21 Insurance MEDICARE [facility] BLUE CROSS Care Teams Youth Agent Relationship Specialty Start Date End Date Modesto Reyez DO [address] [place] [phone] PCP - General Internal Medicine 06/16/20
--- OUTSIDE RECORDS SUMMARY | 2025-03-25 08:00 | XMS_ITS | Referral Summary ---
Author Organization [facility] [address] Address [address] [place] [address] Care Team Providers Care Family Protection Specialist Name Role Phone Ni Armas RN Unavailable Lizette Timothy Land MD Primary Care Provider [phone] Myles Reyes MD Unavailable [phone] Encounters Date Type Department Care Team Description 01/04/2025 Telephone [facility] Rheumatology [address] [place] [address] [place] [address] Sandra Bauman MD Prior Auth (Duloxetine) from Last 3 Months Allergies No known active allergies Medications pravastatin (PRAVACHOL) 80 mg tablet Take 1 tablet (80 mg total) by mouth daily 0 Active levothyroxine (SYNTHROID) 112 mcg tablet Take 1 tablet (112 mcg total) by mouth daily 9 Active cholecalcifero l (VITAMIN D-3) 2000 unit tablet Take 0.5 [...] 3 Active cyanocobalamin (Vitamin B-12) 1,000 mcg tabletIndicati ons:Prevention of Vitamin B12 Deficiency Take 1 tablet [...] MOUTH DAILY 90 tablet 1 4 Active hydroxychloroq uine (PLAQUENIL) 200 mg tablet Take 1 tablet (200 mg total) by mouth 2 (two) times a day 180 tablet 1 4 Active sacubitriL-cayla sartan (ENTRESTO) 24-26 mg tabletIndicati ons:chronic heart failure Take 1 tablet by mouth [...] g total) by mouth daily 4 Active predniSONE (DELTASONE) 2.5 mg tablet TAKE 1 TABLET(2.5 MG) BY MOUTH DAILY 90 tablet 1 5 Active DULoxetine 40 mg capsule,delaye d release(DR/EC) Take 40 mg by mouth daily 30 capsule 2 5 04/22/20 25 Active azaTHIOprine (IMURAN) 50 mg tabletIndicati ons:autoimmune disease Take 1 tablet (50 mg total) by mouth daily 30 tablet 2 5 09/19/[address] 40 mg capsule,delaye d release(DR/EC) Take 40 mg by mouth daily 30 capsule 2 5 03/23/20 25 Discontinu ed(Reorder ) azaTHIOprine (IMURAN) 50 mg tabletIndicati ons:autoimmune disease Take 1 tablet (50 mg total) by mouth daily 30 tablet 2 5 03/23/20 25 Discontinu ed(Reorder ) Active Problems Problem Noted Date Diagnosed Date Body mass index 40.0-44.9, adult ([facility]) 01/17 Pulmonary hypertension 12/12/2023 Osteoarthritis 12/12/2023 Dilated cardiomyopathy 04/12/2023 HFrEF (heart failure with reduced ejection fract ion) 04/12/2023 Primary hypertension 06/28/2022 Assessment & Plan (07/03/2022 11:37 AM CDT): BP flucutates, pulse improved. Continues on Toprol 50mg & Lisinopril 5mg. Will increase Lisinopril to 10mg & pt needs to f/u with Film Crew Member outpt. Assessment & Plan (06/28/2022 10:57 AM [...] an appointment with Pulmonary on 06/15 at [facility] for PFTs, may need to reschedule Assessment [...] prednisone 15 mg daily. Follows up with database administration manager, Dr. Shaikh martinez. Assessment & Plan (06/06/2022 11:02 AM CDT): [...] eliquis. Follow-up cardiology, Dr. Reyes/ Yolanda Soto, ZULY on 06/22/22 10 am. Assessment & Plan [...] - will need to f/u w/ her audit partner for further management upon DC Assessment & [...] Follows up with Pulmonary, Dr. Norman and database administration manager Dr. Bauman. PFT scheduled at [facility] 06/15 Assessment & Plan (06/07/2022 12:06 PM [...] rheumatology (Dr. Sandra HILLMAN) closer to discharge. Assessment & Plan (05/27/2022 [...] and cough. Tested + on 05/22/22 at [facility] and repeatedly positive at [facility] on 05/27/2022. s/p remdesivir x2 days for high risk->stopped for bradycardia/pauses w/HR 30-40. Needs full 20 days isolation before quarantine can be lifted ~06/12 per IP. Respiratory status stable, on home oxygen 2 L at rest, 4 L with exertion. Continue to monitor. Assessment & Plan (06/05/2022 1:43 PM CDT): Symptomatic with lethargy, leg swelling, and cough. Tested + on 05/22/22 at [facility] (external result entered and pic [...] and cough. -Tested + on 05/22/22 at [facility] (external result entered and pic [...] and cough. -Tested + on 05/22/22 at [facility] (external result entered and pic [...] and cough. -Tested + on 05/22/22 at [facility] (external result entered and pic [...] and cough. -Tested + on 05/22/22 at [facility] (external result entered and pic of result in media tab) -s/p remdesivir x2 days for high risk->stopped for bradycardia/pauses w/HR 30-40 yesterday -may be able to lift COVID isolation ~06/02, IP aware Assessment & Plan (05/31/2022 5:09 PM CDT): Symptomatic with lethargy, leg swelling, and cough. -Tested + on 05/22/22 at [facility] (external result entered and pic [...] Reported two weeks of productive green sputum BAG SEALER. 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 Completed 7 total days of antibiotics (Azith, CTX) on 05/29. -pulm status at baseline. Assessment & Plan (06/03/2022 8:30 AM CDT): Reported two weeks of productive green sputum BAG SEALER. 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 Completed 7 total days of antibiotics (Azith, CTX) on 05/29. -pulm status at baseline. Assessment & Plan (06/02/2022 12:05 PM CDT): Reports two weeks of productive green sputum BAG SEALER. Started on cefdinir for PNA and UTI [...] her going back to prior facility. PT/OT evkayley completed 05/31-rec SNF, multiple referrals pending Assessment & Plan (06/01/2022 8:26 AM CDT): Tramadol prn. miralax daily prn. 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 -mobilize as able-rehab/SNF at discharge->Needs new referrals as patient & daughter do not want her going back to prior facility. PT/OT evals completed 05/31-rec SNF Assessment & Plan (05/31/2022 5:12 PM CDT): Tramadol prn. miralax daily prn. Incentive spirometer. -mobilize as able-rehab/SNF at discharge->will need new referrals as patient & daughter do not want her going back to prior facility. 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 Not on file Not on file Last Filed Vital Signs Vital Sign Reading Time Taken Comments Blood Pressure 140/77 12/02/2024 8:03 AM WALL SCRAPER Pulse 66 12/02/2024 8:03 AM WALL SCRAPER Temperature 36.6 C (97.9 F) 12/02/2024 8:03 AM WALL SCRAPER Respiratory Rate 18 10/08/2024 12:18 PM WALL SCRAPER Oxygen Saturation 98% 10/08/2024 12:18 PM WALL SCRAPER 4 liters o2 Inhaled Oxygen Concentration - - Weight 108.9 kg (240 lb) 12/02/2024 8:03 AM WALL SCRAPER Height 157.5 cm (5' 2 ) 12/02/2024 8:03 AM WALL SCRAPER Body Mass Index 43.9 12/02/2024 8:03 AM WALL SCRAPER Plan of Treatment Not on file Procedures Procedure Name Priority Date/Time Associated Diagnosis Comments CRP (ACUTE PHASE) Routine 03/18/2025 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) High risk medication use ERYTHROCYTE SEDIMENTATION RATE Routine 03/18/2025 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) High risk medication use COMPREHENSIVE METABOLIC PANEL Routine 03/18/2025 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) High risk medication use CBC WITH AUTO DIFFERENTIAL Routine 03/18/2025 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) High risk medication use CRP (ACUTE PHASE) Routine 01/18/2025 Rheumatoid lung [...] Results * (ABNORMAL) CBC with auto differential (03/18/2025) SCRIBED WBC 8.1 4.5 - 10.0 k/cumm EXTERNAL LAB SCRIBED RBC 2.93(A) 4.2 - 5.4 m/cumm EXTERNAL LAB SCRIBED Hemoglobin 8.8(A) 12.0 - 15.0 g/dL EXTERNAL LAB SCRIBED Platelets 210 150 - 375 k/cumm EXTERNAL LAB Blood 03/18/2025 Sandra Bauman MD LAB BLOOD ORDERABLES Final Resul t EXTERNAL LAB * (ABNORMAL) Erythrocyte sedimentation rate (03/18/2025) SCRIBED ESR 52(A) 0 - 20 mm/hr EXTERNAL LAB Blood 03/18/2025 Sandra Bauman MD LAB BLOOD ORDERABLES Final Resul t EXTERNAL LAB * (ABNORMAL) CRP (acute phase) (03/18/2025) SCRIBED CRP 1.6(A) <1.0 - 1.0 mg/L EXTERNAL LAB Blood 03/18/2025 Sandra Bauman MD LAB BLOOD ORDERABLES Final Resul t Performing Organization Address [facility] de Phone Number EXTERNAL LAB * (ABNORMAL) Comprehensive metabolic panel (03/18/2025) SCRIBED Creatinine 1.16(A) 0.7 - 1.0 mg/dl EXTERNAL LAB SCRIBED Bilirubin 0.4 0.2 - 1.3 mg/dl EXTERNAL LAB SCRIBED Alkaline Phosphatase 40 38 - 126 Units/L EXTERNAL LAB SCRIBED Alanine Transaminase (ALT) 11 6 - 35 Units/L EXTERNAL LAB SCRIBED Aspartate Transaminase (AST) 21 14 - 36 Units/L EXTERNAL LAB Blood 03/18/2025 Sandra Bauman MD LAB BLOOD ORDERABLES Final Resul t Performing Organization Address [facility] de Phone Number EXTERNAL LAB * (ABNORMAL) CBC with auto differential (01/18/2025) SCRIBED WBC 9.1 4.5 - 10.0 k/cumm EXTERNAL LAB SCRIBED RBC 3.13(A) 4.2 - 5.4 m/cumm EXTERNAL LAB SCRIBED Hemoglobin 9.1(A) 12.0 - 15.0 g/dL EXTERNAL LAB SCRIBED Platelets 246 150 - 375 k/cumm EXTERNAL LAB Blood 01/18/2025 us Sandra Bauman MD LAB BLOOD ORDERABLES Final Resul t Performing Organization Address [facility] Co de Phone Number EXTERNAL LAB * (ABNORMAL) Erythrocyte sedimentation rate (01/18/2025) SCRIBED ESR 37(A) 0 - 20 mm/hr EXTERNAL LAB Blood 01/18/2025 us Sandra Bauman MD LAB BLOOD ORDERABLES Final Resul t Performing Organization Address [facility] Co de Phone Number EXTERNAL LAB * CRP (acute phase) (01/18/2025) SCRIBED CRP 1.6 <1.0 - <1.0 mg/L EXTERNAL LAB Blood 01/18/2025 Sandra Bauman MD LAB BLOOD ORDERABLES Final Resul t Performing Organization Address [facility] Co de Phone Number EXTERNAL LAB * [...] - 36 Units/L EXTERNAL LAB Blood 01/18/2025 Snadra Bauman MD LAB BLOOD ORDERABLES Final Resul t Performing Organization Address [facility] de Phone Number EXTERNAL LAB * Hepatitis panel, acute (03/09/2022 9:20 AM CDT) Hep A IgM Nonreactive Nonreactive [facility] Comment: Interpretive Data: If Hep A IgM Ab is reported as Equivocal, a new sample should be drawn in two weeks for testing. Current interpretive data was last revised on 20. Hep B core IgM Nonreactive Nonreactive [facility] Comment: Interpretive Data If HepB Core IgM Ab is reported as Equivocal, a new sample should be drawn in two weeks for testing. Current interpretive data was last revised on 20. Hep C Ab Nonreactive Nonreactive [facility] Comment:Antibodies to HCV no t detected. Does NOT exclude the possibility of recent exposure to HCV. HepBsAg Nonreactive Nonreactive [facility] Blood 03/09/2022 9:20 AM CDT 03/09/2022 10:20 AM CDT us Sandra Bauman MD LAB MICROBIOLOGY - GENERAL ORDER KHOA Final Result [facility] Department [place] [address] from Last 3 Months or Most Recently Relevant to Health Maintenance Insurance [facility] MEDICARE MEDICARE [facility] MEDICARE SUPPLEMENT [facility] MEDICARE [facility] MEDICARE SUPPLEMENT Member Subscriber Plan / Payer ( fective 2013-Present) Name:Ayanna Cash Relation to Subscriber:Self Name:Ayanna Cash Payer ID:[id number] Type:COMMERCIAL Address: [facility] [id number] [place] [id number] Advance Directives For more information, please contact: [phone] Documents on File Type Date Recorded Patient Bias Cutting Machine Operator Vertical Expl anation ADVANCE DIRECTIVE 11/03/2021 10:23 AM Brent er of [employer] * Full Code (Latest Code Status on File) Date Activated Date Inactivated Comments 05/27/2022 7:14 PM 06/07/2022 10:45 PM Care Teams Family Protection Specialist Relationship Specialty Start Date End Date Timothy Donis MD PCP - General Family Practice 04/12/23 Ni Armas, RN Registered Nurse Pulmonary Disease 01/11/23 Myles Reyes MD [address] [place] [address] Film Crew Member Cardiology 12/23/24
--- OUTSIDE RECORDS SUMMARY | 2025-03-25 08:00 | XMS_ITS | Encounter Summary ---
Author Organization [facility] Address [address] [place] [address] Phone Care Team Providers Care Merchandise Flow Manager Name Role Phone Modesto Reyez DO Primary Care Provider [phone] Ni Armas RN Unavailable Lizette Liliana Prakash MD Primary Care Provider [phone] Timothy Donis MD Primary Care Provider [phone] Myles Reyes MD Unavailable [phone] Encounter Details Date Type Department Care Team [...] file Legal Sex Female 1:14 AM DIRECTOR OF CLINICAL SERVICES Gender Identity Female 05/04/2020 3:33 PM CDT [...] documented as of this encounter Care Teams Merchandise Flow Manager Relationship Specialty Start Date End Date Modesto Reyez DO PCP - General Internal Medicine 01/03/20 01/13/23 Liliana Baron MD PCP - General Internal Medicine 01/14/23 04/11/23 Timothy Donis MD PCP - General Family Practice 04/12/23 Ni Armas, BILLY Registered Nurse Pulmonary Disease 01/11/23 Myles Reyes MD [address] [place] [address] Software Program Manager Cardiology 12/23/24 documented as of this encounter
--- OUTSIDE RECORDS SUMMARY | 2025-03-25 08:00 | XMS_ITS | Encounter Summary ---
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
--- OUTSIDE RECORDS SUMMARY | 2025-03-25 08:00 | XMS_ITS | Encounter Summary ---
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
--- OUTSIDE RECORDS SUMMARY | 2025-03-25 08:00 | XMS_ITS | Clinical Summary ---
Author Organization [facility] [place] [address] Address [address] [place] [address] Care Team Providers Care Alkylation Operator Name Role Phone Ni Armas RN Unavailable Lizette Timothy Land MD Primary Care Provider [phone] Myles Reyes MD Unavailable [phone] Allergies No known active allergies Medications pravastatin [...] Diagnosed Date Body mass index 40.0-44.9, adult ([facility]) 01/17 Pulmonary hypertension 12/12/2023 Osteoarthritis 12/12/2023 Dilated cardiomyopathy 04/12/2023 HFrEF (heart failure with reduced ejection fract ion) 04/12/2023 Primary hypertension 06/28/2022 Assessment & Plan (07/03/2022 11:37 AM CDT): BP flucutates, pulse improved. Continues on Toprol 50mg & Lisinopril 5mg. Will increase Lisinopril to 10mg & pt needs to f/u with [facility] out[facility]. Assessment & Plan (06/28/2022 10:57 AM [...] an appointment with Pulmonary on 06/[address] [facility] for PFTs, may need to reschedule Assessment [...] prednisone 15 mg daily. Follows up with dump motorman, Dr. Bauman outpatient. Assessment & Plan (06/06/2022 [...] - will need to f/u w/ her tax intern for further management upon DC Assessment & [...] Follows up with Pulmonary, Dr. Norman and dump motorman Dr. Bauman. PFT scheduled at [facility] 06/15 Assessment & Plan (06/07/2022 12:06 PM [...] and cough. Tested + on 05/22/22 at [facility] and repeatedly positive at [facility] on 05/27/2022. s/p remdesivir x2 days for high risk->stopped for bradycardia/pauses w/HR 30-40. Needs full 20 days isolation before quarantine can be lifted ~7/19 per IP. Respiratory status stable, on home oxygen 2 L at rest, 4 L with exertion. Continue to monitor. Assessment & Plan (06/05/2022 1:43 PM CDT): Symptomatic with lethargy, leg swelling, and cough. Tested + on 05/22/22 at [facility] (external result entered and [...] and cough. -Tested + on 05/22/22 at [facility] (external result entered and [...] and cough. -Tested + on 05/22/22 at [facility] (external result entered and [...] and cough. -Tested + on 05/22/22 at [facility] (external result entered and [...] and cough. -Tested + on 05/22/22 at [facility] (external result entered and pic of result in media tab) -s/p remdesivir x2 days for high risk->stopped for bradycardia/pauses w/HR 30-40 yesterday -may be able to lift COVID isolation ~06/02, IP aware Assessment & Plan (05/31/2022 5:09 PM CDT): Symptomatic with lethargy, leg swelling, and cough. -Tested + on 05/22/22 at [facility] (external result entered and [...] Reported two weeks of productive green sputum SILHOUETTE ARTIST. 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 Completed 7 total days of antibiotics (Azith, CTX) on 05/29. -pulm status at baseline. Assessment & Plan (06/03/2022 8:30 AM CDT): Reported two weeks of productive green sputum SILHOUETTE ARTIST. 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 Completed 7 total days of antibiotics (Azith, CTX) on 05/29. -pulm status at baseline. Assessment & Plan (06/02/2022 12:05 PM CDT): Reports two weeks of productive green sputum SILHOUETTE ARTIST. Started on cefdinir for PNA and UTI [...] likes to stay in bed - PT/OT sykayley completed 05/31-rec SNF, multiple referrals pending Assessment & Plan (06/03/2022 8:34 AM CDT): Tramadol prn. miralax daily prn. 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 -mobilize as able-pt needs LOTs of encouragement to participate, likes to stay in bed - PT/OT sykayley completed 05/31-rec SNF, multiple referrals pending Assessment [...] obesity with BMI of 4 5.0-49.9, adult ([facility]) 05/05/2020 10/13/2024 Assessment & Plan (06/07/2022 12:06 PM CDT): PT/OT consulted. Assessment & Plan (05/27/2022 8:21 PM CDT): PT/OT consulted. 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 Not on file Not on file Obstetrics History Para Term AB IAB SAB Ectopic Multiple Livin g Live Births 5 5 Date Outcome GA Total Labor Labor/2nd/3rd Weight Sex Type Anes PTL Linn A1 A5 Name Clin Para Para Para Para Para Last Filed Vital Signs Vital Sign Reading Time Taken Comments Blood Pressure 140/77 12/02/2024 8:03 AM LINE MECHANIC Pulse 66 12/02/2024 8:03 AM LINE MECHANIC Temperature 36.6 C (97.9 F) 12/02/2024 8:03 AM LINE MECHANIC Respiratory Rate 18 10/08/2024 12:18 PM LINE MECHANIC Oxygen Saturation 98% 10/08/2024 12:18 PM LINE MECHANIC 4 liters o2 Inhaled Oxygen Concentration - - Weight 108.9 kg (240 lb) 12/02/2024 8:03 AM LINE MECHANIC Height 157.5 cm (5' 2 ) 12/02/2024 8:03 AM LINE MECHANIC Body Mass Index 43.9 12/02/2024 8:03 AM LINE MECHANIC Plan of Treatment Health Maintenance Due Date [...] risk medication use HEPATITIS PANEL, ACUTE Routine 2 9:20 AM CDT Rheumatoid lung disease with [...] ORDERABLES Final Resul t Performing Organization Address City/[facility] Co de Phone Number EXTERNAL LAB * (ABNORMAL) Erythrocyte sedimentation rate (03/18/2025) Pathologist [facility] SCRIBED ESR 52(A) 0 - 20 mm/hr EXTERNAL LAB Blood 03/18/2025 Sandra Bauman MD LAB BLOOD ORDERABLES Final Resul t Performing Organization Address City/[facility]/ZIP Co de Phone Number EXTERNAL LAB * (ABNORMAL) CRP (acute phase) (03/18/2025) Pathologist [facility] SCRIBED CRP 1.6(A) <1.0 - 1.0 mg/L EXTERNAL LAB Blood 03/18/2025 Sandra Bauman MD LAB BLOOD ORDERABLES Final Resul t EXTERNAL LAB * (ABNORMAL) Comprehensive metabolic panel (03/18/2025) SCRIBED Creatinine 1.16(A) 0.7 - 1.0 mg/dl EXTERNAL LAB SCRIBED Bilirubin 0.4 0.2 - 1.3 mg/dl EXTERNAL LAB SCRIBED Alkaline Phosphatase 40 38 - 126 Units/L EXTERNAL LAB SCRIBED Alanine Transaminase (ALT) 11 6 - 35 Units/L EXTERNAL LAB SCRIBED Aspartate Transaminase (AST) 21 14 - 36 Units/L EXTERNAL LAB Blood 03/18/2025 Sandra Bamuan MD LAB BLOOD ORDERABLES Final Resul t Performing Organization Address City/[facility]/ZIP Co de Phone Number EXTERNAL LAB * (ABNORMAL) CBC with auto differential (01/18/2025) SCRIBED WBC 9.1 4.5 - 10.0 k/cumm EXTERNAL LAB SCRIBED RBC 3.13(A) 4.2 - 5.4 m/cumm EXTERNAL LAB SCRIBED Hemoglobin 9.1(A) 12.0 - 15.0 g/dL EXTERNAL LAB SCRIBED Platelets 246 150 - 375 k/cumm EXTERNAL LAB Blood 01/18/2025 Sandra Bauman MD LAB BLOOD ORDERABLES Final Resul t Performing Organization Address [facility] Co de Phone Number EXTERNAL LAB * (ABNORMAL) Erythrocyte sedimentation rate (01/18/2025) SCRIBED ESR 37(A) 0 - 20 mm/hr EXTERNAL LAB Blood 01/18/2025 Sandra Bauman MD LAB BLOOD ORDERABLES Final Resul t Performing Organization Address City/[facility]/ZIP Co de Phone Number EXTERNAL LAB * CRP (acute phase) (01/18/2025) SCRIBED CRP 1.6 <1.0 - <1.0 mg/L EXTERNAL LAB Blood 01/18/2025 Sandra Bamuan MD LAB BLOOD ORDERABLES Final Resul t EXTERNAL LAB * (ABNORMAL) Comprehensive metabolic panel [...] ORDERABLES Final Resul t Performing Organization Address [facility] Co de Phone Number EXTERNAL LAB * Hepatitis panel, acute (03/09/2022 9:20 AM CDT) Hep A IgM Nonreactive Nonreactive [facility] Comment: Interpretive Data: If Hep A IgM Ab is reported as Equivocal, a new sample should be drawn in two weeks for testing. Current interpretive data was last revised on 20. Hep B core IgM Nonreactive Nonreactive [facility] Comment: Interpretive Data If HepB Core IgM Ab is reported as Equivocal, a new sample should be drawn in two weeks for testing. Current interpretive data was last revised on 20. Hep C Ab Nonreactive Nonreactive [facility] Comment:Antibodies to HCV no t detected. Does NOT exclude the possibility of recent exposure to HCV. HepBsAg Nonreactive Nonreactive [facility] Blood 03/09/2022 9:20 AM CDT 03/09/2022 10:20 AM CDT Sandra Bauman MD LAB MICROBIOLOGY - GENERAL ORDER KHOA Final Result Performing Organization Address City/[facility]/ZIP Co de Phone Number [facility] Department [place] [address] from Last 3 Months or Most Recently Relevant to Health Maintenance Insurance [facility] MEDICARE MEDICARE [facility] MEDICARE SUPPLEMENT [facility] MEDICARE BLUE CROSS MEDICARE SUPPLEMENT Advance Directives For more information, please contact: [phone] Documents on File Type Date Recorded Patient Clinical Outcomes Manager Expl anation ADVANCE DIRECTIVE 11/03/2021 10:[address] [facility] * Full Code (Latest Code Status on File) Date Activated Date Inactivated Comments 05/27/2022 7:14 PM 06/07/2022 10:45 PM Care Teams Alkylation Operator Relationship Specialty Start Date End Date Timothy Donis MD PCP - General Family Practice 04/12/23 Ni Armas, RN Registered Nurse Pulmonary Disease 01/11/23 Myles Reyes MD [address] [id number] [facility] 12/23/24
--- OUTSIDE RECORDS SUMMARY | 2025-03-25 08:00 | XMS_ITS | Encounter Summary ---
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
[2025-03-25 08:55] LABS: Basophils Absolute Auto 0.1 K/mm3 (0.0-0.1); Basophils Percent Auto 0.6 % (0.2-1.2); Eosinophils Absolute Auto 0.1 K/mm3 (0-0.3); Eosinophils Percent Auto 0.6 % (0-4.4); Hematocrit 31.2 % (37.0-47.0); Hemoglobin 9.2 g/dL (12.0-15.0); Immature Granulocyte Absolute 0.03 K/mm3 (0.00-0.031); Immature Granulocyte Percent A 0.4 % (0-0.5); Lymphocytes Absolute Auto 1.18 K/mm3 (0.9-3.2); Lymphocytes Percent Auto 13.9 % (18.3-44.2); Mean Corpuscular HGB Conc 29.5 g/dl (32-36); Mean Corpuscular Hemoglobin 29.1 pg (26-34); Mean Corpuscular Volume 98.7 fl (80-100); Mean Platelet Volume 9.7 fl (7.4-10.4); Monocytes Absolute Auto 0.9 K/mm3 (0.1-0.6); Monocytes Percent Auto 10.9 % (2.6-8.5); Neutrophils Absolute Auto 6.2 K/mm3 (1.3-6.7); Neutrophils Percent Auto 73.6 % (45.5-73.1); Platelet Count Result 268 k/mm3 (150-375); Red Blood Count 3.16 M/mm3 (4.2-5.4); Red Cell Distribution Width 14.2 % (11.5-14.5); White Blood Count 8.5 K/mm3 (4.5-10.0)
[2025-03-25 09:11] LABS: Anion Gap 11 mmol/L (4-12); Blood Urea Nitrogen 33 mg/dL (7-17); Calcium 10.1 mg/dL (8.4-10.2); Carbon Dioxide 32 mmol/L (22-30); Chloride 95 mmol/L (98-107); Estimated Glomerular Filt Rate 44; Glucose 96 mg/dL (65-110); Potassium 4.3 mmol/L (3.4-5.0); Sodium 138 mmol/L (137-145)
[2025-03-25 09:13] LABS: Iron 79 ug/dL (37-170)
[2025-03-25 09:23] LABS: Percent Iron Saturation 27 % (20-50)
== END 2025-03-25 07:53 | disposition home or self-care (01) ==
PROVIDERS: PCP Family Medicine; Referring Provider Internal Medicine Cardiovascular Disease; Visit Provider Internal Medicine
DX: R79.9 Abnormal finding of blood chemistry, unspecified (principal); M05.10 Rheumatoid lung disease with rheumatoid arthritis of unspecified site; Z79.899 Other long term (current) drug therapy
CPT/HCPCS: 36415; 80048; 82728; 83540; 83550; 85025

== ENCOUNTER 2025-07-09 07:45 | Outpatient (CLI) | payer MEDICARE, SELFPAY ==
--- OUTSIDE RECORDS SUMMARY | 2025-07-09 07:53 | XMS_ITS | Encounter Summary ---
Author Organization [facility] Address [address] [place] [address] Phone Care Team Providers Care Oncology Patient Navigator Name Role Phone Modesto Reyez DO Primary Care Provider [phone] Ni Armas RN Unavailable Lizette Liliana Prakash MD Primary Care Provider [phone] Timothy Donis MD Primary Care Provider [phone] Myles Reyes MD Unavailable [phone] Encounter Details Date Type Department Care Team (Latest Contact Info) Description 01/02/2020 Orders Only [facility] Scanning, Provider Social History Tobacco Use Types Packs/Day Years Used Date Smoking Tobacco: Never Assessed Comments Unknown Sex and Gender Information Value Date Recorded Sex Assigned at Not on file 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
--- OUTSIDE RECORDS SUMMARY | 2025-07-09 07:53 | XMS_ITS | Encounter Summary ---
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 05/22/2022 05/27/2022 06/17/2022 3:05 AM CDT COVID: Recovered Comment:Added based on recent COVID infection. 06/17/2022 06/18/2022 10/15/2022 3:[address] documented as of this encounter Care Teams Bicycle Messenger Relationship Specialty Start Date End Date Modesto Reyez DO PCP - General Internal Medicine 01/03/20 01/13/23 Liliana Baron MD PCP - General Internal Medicine 01/14/23 04/11/23 Timothy Donis MD PCP - General Family Practice 04/12/23 Ni Armas, BILLY Registered Nurse Pulmonary Disease 01/11/23 Myles Reyes MD [address] [place] [phone] Dermatology Teacher Cardiology 12/23/24 documented as of this encounter
--- OUTSIDE RECORDS SUMMARY | 2025-07-09 07:53 | XMS_ITS | Clinical Summary ---
Author Organization [facility] First Address [address] [place] [address] Care Team Providers Care Retail Field Merchandiser Name Role Phone Timothy Donis MD Primary Care Provider [phone] Allergies No known active allergies Medications acetaminophen [...] Take 250 mg by mouth daily. Active cholecalcifero l, Vitamin D3, 50 mcg (2,000 unit) Tablet Take 1,000 Units by mouth daily. Active cyanocobalamin 1,000 mcg Tablet Take 1,000 mcg by mouth daily. Active hydroxychloroq uine (PLAQUENIL) 200 mg tablet Take 200 mg by mouth 2 times daily. 4 Active levothyroxine 112 mcg tablet Take 1 Tablet by mouth daily. 4 Active pantoprazole (PROTONIX) 40 mg Tablet, Delayed [...] 8 hours as needed for Pain. Active colestipoL (COLESTID) 1 gram tablet Take 1 Gram by mouth daily. 4 Active magnesium oxide 250 mg magnesium Tablet Take 250 mg by mouth daily. 4 Active dilTIAZem (CARDIZEM CD, CARTIA XT) 300 mg Controlled Delivery 24 hour capsule Take 1 Capsule (300 mg) by mouth daily. 90 Capsule 3 5 Active sacubitriL-cayla sartan (ENTRESTO) 24-26 mg Tablet Take 1 Tablet by mouth 2 times daily. 60 Tablet 11 5 Active DULoxetine 40 mg Capsule, Delayed Release(E.C.) Take 1 Capsule by mouth daily. Active furosemide (LASIX) 40 mg tablet Take 3 Tablets (120 mg) by mouth daily for 90 doses. 90 Tablet 2 5 08/15/20 25 Active metoprolol succinate (TOPROL XL) 50 mg Extended Release 24 hour tablet Take 1 Tablet (50 mg) by mouth daily. With Metoprolol 100 mg to equal 150 mg daily. 90 Tablet 3 5 Active metoprolol succinate (TOPROL XL) 100 mg Extended Release 24 hour tablet Take 1 Tablet (100 mg) by mouth daily. 90 Tablet 3 5 Active Cholestyramine Light 4 gram Powder in Packet MIX 1 PACKET WITH LIQUID AND DRINK EVERY DAY WITH A MEAL. AVOID OTHER MEDS WITHIN 1 HOUR BEFORE OR 4 TO 6 HOURS AFTER DOSE 0 07/02/20 25 Discontinu ed(Dose/fo rm adjustment ) azaTHIOprine (IMURAN) 50 mg tablet Take 50 mg by mouth daily. 5 06/16/20 25 Active Problems Patient Care Coordination No te Formatting of this note migh t be different from the original. Ben Day Artist Dr. Amy Ambrose Problem Noted Date Diagnosed Date Hypotension due to drugs 07/02/2025 Atrial flutter 07/02/2025 Chronic kidney disease 06/19/2024 Chronic heart failure with preserved ejection fr action 06/19/2024 Dilated cardiomyopathy 04/12/2023 Primary hypertension 06/28/2022 Overview (06/19/2024): Last Assessment & Plan: BP flucutates, pulse improved. Continues on Toprol 50mg & Lisinopril 5mg. Will increase Lisinopril to 10mg & pt needs to f/u with [facility] outpt. History of pulmonary embolism 06/10/2022 Overview [...] Follows up with Pulmonary, Dr. Norman and valve steamer Dr. Bauman. PFT scheduled at [facility] 06/15 H/O influenza 11/02/2021 Obstructive sleep apnea syndrome 07/07/2020 Overview (06/19/2024): Last Assessment & Plan: Compliant with CPAP. Continue using nighttime Rheumatoid arthritis 05/05/2020 Overview (06/19/2024): Last Assessment [...] Body mass index 40.0-44.9, adult 01/17/2024 10/23/2024 Chronic diastolic heart failure 05/05/2020 04/29/2025 Encounters Date Type Department Care Team Description 07/02/2025 8:15 AM CDT Office Visit [facility] - [address] [place] [address] Myles Reyes MD Chronic heart failure with preserved ejection fraction (CMS/HCC) (Primary Dx); Longstanding persistent atrial fibrillation (CMS/HCC); Atrial flutter, unspecified type (CMS/HCC); Chronic interstitial lung disease (CMS/HCC); Hypotension due to drugs; Primary hypertension; Rheumatoid arthritis, involving unspecified site, unspecified whether rheumatoid factor present (CMS/HCC); History of pulmonary embolism; Chronic anticoagulation 05/11/2025 External Device Data STL ABSTRACTION Provider, Abstract 05/10/2025 Refill [facility] - [address] [place] [address] Myles Reyes MD 04/29/2025 9:45 AM CDT Office Visit [facility] - [address] [place] [address] Myles Reyes MD Chronic heart failure with preserved ejection fraction (CMS/HCC) (Primary Dx); Hypotension due to drugs; Paroxysmal atrial fibrillation (CMS/HCC); Dilated cardiomyopathy (CMS/HCC); Chronic interstitial lung disease (CMS/HCC); Obstructive sleep apnea syndrome; History of pulmonary embolism; Chronic anticoagulation from Last 3 Months Family History Medical [...] Sex Assigned at Female 11/03/2024 11:06 AM MRI TECHNICIAN Legal Sex Female 1:41 PM CDT Gender Identity Female 11/03/2024 11:06 AM MRI TECHNICIAN Sexual Orientation Not on file Last Filed Vital Signs Vital Sign Reading Time Taken Comments Blood Pressure 102/60 07/02/2025 8:09 AM CDT Pulse 36 07/02/2025 8:09 AM CDT Temperature - - Respiratory Rate - - Oxygen Saturation 98% 07/02/2025 8:09 AM CDT 3 liters O2 Inhaled Oxygen Concentration - - Weight 98 kg (216 lb) 07/02/2025 8:09 AM CDT Height 157.5 cm (5' 2) 07/02/2025 8:09 AM CDT Body Mass Index 39.51 07/02/2025 8:09 AM CDT Plan of Treatment Upcoming Encounters Date Type Department Care Team (Late st Contact Info) Description 08/06/2025 10:15 AM CDT Office Visit [facility] - [address] [place] [address] Myles Reyes MD [address] [place] [id number] 09/03/2025 9:00 AM CDT Office Visit [facility] - [address] [place] [address] Myles Reyes MD [address] [place] [address] Health Maintenance Due Date Last Done Comments DTAP/TDAP/TD VACCINES (1 - Tdap) 1969 Traditional Medicare (ACO) A nnual Wellness Visit 1969 ZOSTER VACCINE (1 of 2) 1969 RSV VACCINE (60+ or ) (1 - 1-dose 75+ series) 2023 INFLUENZA VACCINE (#1) 2025 09/16/2020, 2018 OSTEOPOROSIS SCREENING 01/08/2028 01/08/2023, 2018 PNEUMOCOCCAL VACCINE 50+ YEARS Completed 10/16/2019 , 12/05/2017 Procedures Procedure Name Priority Date/Time Associated Diagnosis Comments ND ECG ROUTINE ECG W/LEAST 12 LDS W/I&R Routine 07/02/2025 8:15 AM CDT Atrial flutter, unspecified type (CMS/HCC) from Last 3 Months Results * ND ECG ROUTINE ECG W/LEAST 12 LDS W/I&R (07/02/2025 8:15 AM CDT) Narrative [facility] [address] - 07/02/2025 8:15 AM CDT Myles Reyes MD 07/02/2025 5:25 PM EKG Date/Time: 07/02/2025 8:15 AM Performed by: Myles Reyes MD Authorized by: Myles Reyes MD Comments: Atrial flutter with variable AV block 74 bpm QRS [address] abnormality nonspecific IVCD Procedure Note Myles Reyes MD - 07/02/2025 8:02 AM CDT [facility] V[facility] Cardiology Outpatient Progress Note Date of Service: 07/02/25 Primary Care Physician: Timothy Donis MD Referring Physician: No ref. provider found Chief Complaint Patient presents with Congestive Heart Failure (office visit) Leg Swelling With bruising and scabs for 2 weeks. Left leg always numb History of Present Illness: Patient is a pleasant 75 y.o. female with a PMHx significant forrheumatoid arthritis, hypertension, hyperlipidemia, morbid obesity, STARR,diastolic heart failure, atrial fibrillation, and interstitial lungdisease. She was on amiodarone and digoxin in the past , she had also hada successful cardioversion in the past. Mahamed in September 2019 showed EF60%. She was previously followed by Dr. Parker. Her microfiche duplicator is . Her valve steamer is Dr. Kobe Gerard. She presented to [facility] on 01/01/2020 with complaint of worsening shortness [...] Spironolactone was discontinued. OLD RECORDS care everywhere [facility]: 02/09/20 HFU w/ CAT- she comes to the office today for hospital follow-up.She is accompanied by her daughter. Since discharge she has been feelingbetter but over the last few days has felt more fatigued. She is able togo up the 14 steps in her house, and her heart rate will elevate to bpm, but then it promptly goes back down. She has been weighingherself daily at home in weights have been stable. She is trying to drink2 L of fluid a day but sometimes finds it hard to finish all of it. Shewears oxygen p.r.n. Activity. She is using her CPAP machine nightly, butsometimes remove sit fci through the night. PCP [...] beentrying to lose some weight, following a 7446-0068 Na restriction. Nowusing a foot pedal for [...] 09/21/21 she went to [facility] ER forcomplaint of worsening shortness of [...] referred her to pulmonology at [facility] and thatappointment is next month. 12-lead ECG performed in the office today was independently interpreted byme and showed sinus rhythm, normal axis and normal intervals, rate 88beats per minute 11/02/21 Says not feeling any better at all [facility] to do everything takes a lot out of her, no energyor appetite, SOB same as before. Attributes a lot to being off her painmeds including Hydroxychloroquine and Methotrexate for a while while inhospital. On CPAP. Not much edema though. Pain is mostly in shoulders andhands. Uses heating pad and Tylenol. Saw PCP recently. Sees Pulm at [facility]. Using 2L O2 at rest 4L O2 with activity. She notes her O2 dropsto 85% on 4L still. Rheum adjusting meds on prednisone for 1 week withoutnoted improvement thus far. Has PT coming into home. 04/17/22 Admitted to [facility] with ILD and CHF admits she hasn't [...] to repeat BMP in 1-2 weeks. Today kirkurns to the office with her daughter. She reports she can tell she haslost fluid weight. She is trying better to follow the low-sodium diet.She has no complaints. She repeated the BMP this morning. 06/22/22 CAT visit - she was hospitalized at [facility] 05/25-05/26 for pulmonaryedema, tested positive for COVID, treated for rib fractures due to a fall2 days prior. Then hospitalized at [facility] 05/27-06/07 for treatment ofpneumonia (bacterial verses COVID) / COPD exacerbation, diastolic heartfailure exacerbation. She became bradycardic on telemetry (heart [id number] with pause up to 3 seconds) so remdesivir was stopped and metoprololwas stopped. IV furosemide caused MIKE so she was discharged withoutfurosemide but it has since been restarted in alf rehab(currently she is at [facility] in [place]). When she isdoing physical therapy her heart rate will go in the 150s. She cannotfeel the tachycardia. She denies any bleeding problems. She states theswelling in her legs g oes up and down and she is having wraps placed bythe [...] RVR and atrialflutter with RVR. Went to [facility] after February admission then backto [facility] in March after and she feels diet at [facility] is to faultand salty. Cough is incessant at [facility]. Has blood in stoolreported so UGI recommended discharge yesterday on Dilt 300mg daily andToprol XL 150mg Lasix 40mg BID Echo with EF 27% but in AF with RVR.Extensively reviewed [facility] records. Patient's daughter veryconcerned about her [...] day if she does not elevate them. Todayshe had an appointment at [facility] with her microfiche duplicator so she has not beenable to elevate [...] seen in very kind consultation request by Timothy Donis MD for my opinion regarding atrial fibrillation, heartfailure. [...] testing. She asked if she should drink morewater due daughter says due to recurrent UTI and has darker and bloodyurine they report. She reports more sodium this past week, has not been asconsistent weighing herself. Has chronic indwelling catheter does notmeasure her urine. Denies new change in SOB but lung function not great,wears O2. Edema stable. Daughter has also noted HR in upper 30's at timesbut she feels fine. She also had diarrhea transient earlier this week 12/24/24: Orencia stopped, concern over dehydration by her physicians.Stopped drinking soda, feeling fairly well at baseline. No new concerns atpresent, will start Azathioprine soon. 04/29/25: BP has been lower lately 97mmHg systolic, was feeling ok dizzythis AM. Not sleeping again not sure why exhausted as a result. HR goes upwith activity to 130's at times. She is on Lasix 120mg daily and does notwant to change. Breathing fine at rest same FALCON, cut down on bread, nosodas. No falls, no bleeding. 07/02/25: has scabbed lesions on her legs come and go. BP has been lower oflate, 83/60 yesterday much more tired, more SOB nicolas past week, here withson and daughter. Past Medical History: Past Medical History: Diagnosis Date A-fib ([facility]) Congestive heart failure ([facility]) Hyperlipidemia Hypertension Renal disease Allergies: No Known Allergies Current Medications: Current Outpatient Medications on File Prior to Visit Medication Sig Dispense Refill metoprolol succinate (TOPROL XL) 50 mg Extended Release 24 hour tabletTake 1 Tablet (50 mg) by mouth daily. With Metoprolol 100 mg to equal 150mg daily. 90 Tablet 3 metoprolol succinate (TOPROL XL) 100 mg Extended Release 24 hour tabletTake 1 Tablet (100 mg) by mouth daily. 90 Tablet 3 furosemide (LASIX) 40 mg tablet Take 3 Tablets (120 mg) by mouth dailyfor 90 doses. 90 Tablet 2 DULoxetine 40 mg Capsule, Delayed Release(E.C.) Take 1 Capsule by mouthdaily. sacubitriL-valsartan (ENTRESTO) 24-26 mg Tablet Take 1 Tablet by mouth 2times daily. 60 Tablet 11 colestipoL (COLESTID) 1 gram tablet Take 1 Gram by mouth daily. magnesium oxide 250 mg magnesium Tablet Take 250 mg by mouth daily. dilTIAZem (CARDIZEM CD, CARTIA XT) 300 mg Controlled Delivery 24 hourcapsule Take 1 Capsule (300 mg) by mouth daily. 90 Capsule 3 acetaminophen 325 mg Capsule Take by mouth. alendronate (FOSAMAX) 70 mg tablet TAKE 1 TABLET BY MOUTH ONCE WEEKLY ONSATURDAYS apixaban (Eliquis) 5 mg tablet Calcium Carbonate-Vit D3-Min 600 mg calcium- 400 unit Tablet Take bymouth 2 times daily. cephALEXin (KEFLEX) 250 mg capsule Take 250 mg by mouth daily. cholecalciferol, Vitamin D3, 50 mcg (2,000 unit) Tablet Take 1,000 Unitsby mouth daily. cyanocobalamin 1,000 mcg Tablet Take 1,000 mcg by mouth daily. hydroxychloroquine (PLAQUENIL) 200 mg tablet Take 200 mg by mouth 2 timesdaily. levothyroxine 112 mcg tablet Take 1 Tablet by mouth daily. pantoprazole (PROTONIX) 40 mg Tablet, Delayed Release (E.C.) Take 40 mgby mouth daily. potassium chloride (KLOR-CON M20) 20 mEq Extended Release tablet Take 20mEq by mouth 2 times daily. pravastatin (PRAVACHOL) 80 mg tablet Take 80 mg by mouth daily atbedtime. predniSONE (DELTASONE) 2.5 mg tablet Take 2.5 mg by mouth daily. traMADoL (ULTRAM) 50 mg tablet Take 50 mg by mouth every 8 hours asneeded for Pain. [DISCONTINUED] Cholestyramine Light 4 gram Powder in Packet MIX 1 PACKETWITH LIQUID AND DRINK EVERY DAY WITH A MEAL. AVOID OTHER MEDS WITHIN 1HOUR BEFORE OR 4 TO 6 HOURS AFTER DOSE No current facility-administered medications on file prior [...] reviewed and are negative. Physical Examination: BP 102/60 Pulse (!) 36 Ht 5' 2 (1.575 m) Wt 98 kg (216 lb) SpO2 98% Comment: 3 liters O2 BMI 39.51 kg/m Physical Exam Vitals reviewed. Constitutional: General: She [...] Personally reviewed outside records from care everywhere [facility]: 07/11/22 AMBULATORY SPARE FIXER REPORT Interpretation: Underlying rhythm is persistent atrial [...] rate. LongestRR intervals appeared to have occurred electric blanket packer overnight hourspresumably while asleep. Sinus rhythm was [...] hemoglobin 9.5 hematocrit 31.3 platelet count 237 Heart Failure: Preserved Ejection Fraction (HFpEF) Guideline-directed medications (SOR): Current: Notes/plan: SGLT2i (2a) No value filed. Titrate medication to reach blood pressure targets (1) sacubitriL-valsartan (ENTRESTO) 24-26 mg Tablet [[id number]] Diuretics as needed (1) furosemide (LASIX) 40 mg tablet [[id number]] Advance care planning & code status Code Status: Not on file Date ofLast ACP: none EKG Date/Time: 07/02/2025 8:15 AM Performed by: Myles Reyes MD Authorized by: Myles Reyes MD Comments: Atrial flutter withvariable AV block 74 bpm QRS [address] abnormality nonspecificIVCD I have personally reviewed and analyzed electronic medical record,pertinent imaging, laboratory studies, ECG, and available consultationnotes. Impression: ICD-10-CM ICD-9-CM 1. Chronic heart failure with preserved ejection fraction (CMS/HCC)I50.32 428.9 2. Longstanding persistent atrial fibrillation (CMS/HCC) I48.11 427.31 3. Atrial flutter, unspecified type (CMS/HCC) I48.92 427.32 4. Chronic interstitial lung disease (CMS/HCC) J84.9 515 5. Hypotension due to drugs I95.2 458.8 E947.9 6. Primary hypertension I10 401.9 7. Rheumatoid arthritis, involving unspecified site, unspecified whetherrheumatoid factor present ([facility]) M06.9 714.0 8. History of pulmonary embolism Z86.711 V12.55 9. Chronic anticoagulation Z79.01 V58.61 Assessment/Plan of Care: 1. AFib historically paroxysmal developing into more persistent A-fibrequiring dual AV neno blocking agents but currently in SR with ectopy.She also has a history of intermittent atrial flutter with variable AVblock. Continue current medical therapy and systemic anticoagulation forstroke risk reduction. CHADS2 Vasc score 4. - Currently, she is in atrial flutter with controlled ventricular spotswith variable AV block but does report intermittent tachycardia. ContinueEliquis 5 mg BID. Monitor for bleeding. If falls, head injury orbleeding go to ER immediately. Monitor renal function at least on yearlybasis. -continue Toprol XL 150 mg daily, Diltiazem 300 mg daily. Discussed thatthis may contribute to hypotension but with reduction would increase riskfor atrial flutter and/or fibrillation. Explained the difficulty inmanagement in the situation. -As previously discussed, amiodarone is not an option given advancingunderlying interstitial lung disease and chronic hypoxic respiratoryfailure. - Holter monitor to track heart rate given intermittent notation ofbradycardia albeit asymptomatic. Patient declined at this time. Theywill continue to monitor closely and if recurrent issues call the officeis again my recommendation would be Holter monitor for more definitiveassessment as it may need to reduce AV neno blocking agents. -Call if bradycardia or associated sxs. 2. BP relatively low and symptomatic, goal <130/80mmHg. Monitor BP onroutine basis. Call with readings. Continue consistent cardiovascularexercise, weight loss, medication compliance, and low-sodium diet. -Continue Toprol XL 150 mg daily. For now stop Entresto 24/26 mg twicedaily. Not likely able to tolerate further up titration due to underlyingrenal failure -need to ambulate with caution be very careful to avoid falls andsymptomatic hypotension. She desires no changes in her meds at this time.May need to reduce Entresto, or Dilt but need to be mindful ofconsequences in this regard. -Check BP call with readings for recs off Entresto. 3. Compensated, chronic HFpEF history of HFrEF now recoveredhistorically now reduced LV function EF 20% during AFib with RVR NYHAclass III sxs confounded by chronic hypoxic respiratory failure. CHFcounseling performed. Follow daily weight, less than 2 g daily sodiumintake, medication compliance. Call w/ wt gain >3lb in 24 hrs orworsening edema and/or FALCON. -Echo 04/05/2023 at [facility] EF 25-30% during AFib with [id number] MR moderate pulmonary hypertension RVSP 50 mm Hg. -07/2023 Echo EF improved 50-55% mild RV hypokinesis, mild left atrialenlargement mild MR/TR, no , PASP 30 mmHg. -not a good candidate for SGLT2 inhibitor therapy due to indwelling Foleycatheter and h/o recurrent UTI along with propensity for acute on chronickidney injury. -weight down to 216lb previously 225lb due to decreased appetite. No sodareduced bread. -discussed at length, continue Lasix 120 mg daily and call with weights orworsening SOB and edema. Need to reduce further. She has also beeneating less resulting in ongoing weight loss as well. Her symptoms offatigue, shortness of breath compounded by her interstitial lung disease,hypertension, rheumatoid arthritis, atrial fibrillation/flutter andmedication side effects. Very complicated management. - Check CMP, CBC, TSH. Recommendations to follow. 4. Follow up with Renal as scheduled. Renal function remains a problemcreatinine 1.2 on repeat BMP. Monitor closely. Discussed at length.Follow-up with urology and nephrology. 5. Follow-up with pulmonology and Rheumatology as scheduled. Compliancewith CPAP for tx of STARR. She will [...] atherosclerosis of thethoracic aorta by CT chest 12/2022. Follow up in the office in [place] in about 4 weeks (around 07/30/2025). orsooner as needed. Thank you for allowing me the privilege of participating in the care thisvery pleasant patient. Please do not hesitate to contact me with anyadditional questions or concerns. This note was dictated and transcribed using MedStart[employer] Speech Recognitionsoftware. Grout Machine Operator variances may occur. Despite proofreading,typographical errors may occur. Myles Reyes MD us Myles Reyes MD ECG ORDERABLES Final Re sult [facility] [address]# [id number] [place] [address] from Last 3 Months Insurance MEDICARE PART A AND B [facility] SUPP Advance Directives For more information, please contact: [phone] Documents on File Type Date Recorded Patient Ripsaw Operator Expl anation Advance Directive POA 06/19/2024 9:45 AM A dvance Directive POA Care Teams Retail Field Merchandiser Relationship Specialty Start Date End Date Timothy Donis MD [address] [place] [address] PCP - General Family Practice 10/30/24
--- OUTSIDE RECORDS SUMMARY | 2025-07-09 07:53 | XMS_ITS | Encounter Summary ---
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
--- OUTSIDE RECORDS SUMMARY | 2025-07-09 07:53 | XMS_ITS | Encounter Summary ---
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
--- OUTSIDE RECORDS SUMMARY | 2025-07-09 07:53 | XMS_ITS | Encounter Summary ---
Author Organization [facility] Address [address] [place] [address] Phone Care Team Providers Care Parachute Harness Rigger Name Role Phone Ni Armas RN Unavailable Lizette Liliana Prakash MD Primary Care Provider [phone] Timothy Donis MD Primary Care Provider [phone] Myles Reyes MD Unavailable [phone] Encounter Details Date Type Department Care Team [...] file Legal Sex Female 1:14 AM MANAGER BENEFIT Gender Identity Female 05/04/2020 3:33 PM CDT [...] on filedocumented in this encounter Care Teams Parachute Harness Rigger Relationship Specialty Start Date End Date Liliana Baron MD PCP - General Internal Medicine 01/14/23 04/11/23 Timothy Donis MD PCP - General Family Practice 04/12/23 Ni Armas, BILLY Registered Nurse Pulmonary Disease 01/11/23 Myles Reyes MD [address] [place] [address] Project Manager/Design Manager Cardiology 12/23/24 documented as of this encounter
--- OUTSIDE RECORDS SUMMARY | 2025-07-09 07:53 | XMS_ITS | Encounter Summary ---
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 05/22/2022 05/27/2022 06/17/2022 3:05 AM CDT COVID: Recovered Comment:Added based on recent COVID infection. 06/17/2022 06/18/2022 10/15/2022 3:[address] documented as of this encounter Care Teams Gis Manager Relationship Specialty Start Date End Date Modesto Reyez DO PCP - General Internal Medicine 01/03/20 01/13/23 Liliana Baron MD PCP - General Internal Medicine 01/14/23 04/11/23 Timothy Donis MD PCP - General Family Practice 04/12/23 Ni Armas, BILLY Registered Nurse Pulmonary Disease 01/11/23 Myles Reyes MD [address] [place] [address] Insole Taper Cardiology 12/23/24 documented as of this encounter
--- OUTSIDE RECORDS SUMMARY | 2025-07-09 07:53 | XMS_ITS | Clinical Summary ---
Author Organization [facility] [address] Address [address] [place] [address] Care Team Providers Care Hourly Team Members Name Role Phone Ni Armas RN Unavailable Lizette Timothy Land MD Primary Care Provider [phone] Myles Reyes MD Unavailable [phone] Allergies No known active allergies Medications pravastatin (PRAVACHOL) 80 mg tablet Take 1 tablet (80 mg total) by mouth daily 01/22/20 20 Active levothyroxine (SYNTHROID) 112 mcg tablet Take 1 tablet (112 mcg total) by mouth daily 11/11/20 19 Active cholecalcifero l (VITAMIN D-3) 2000 unit tablet Take 0.5 tablets (1,000 Units total) by mouth daily Active calcium carbonate-vit D3-min 600 mg calcium- 400 unit tablet Take by mouth 2 (two) times a day Active Eliquis 5 mg tablet Take 1 tablet (5 mg total) by mouth 2 (two) times a day 04/11/20 21 Active acetaminophen 325 mg capsule Take by mouth A ctive traMADoL (ULTRAM) 50 mg tablet Take 1 tablet (50 mg total) by mouth every 8 (eight) hours as needed for pain 21 tablet 07/03/20 22 Active potassium chloride ER (KLOR-CON) 20 mEq CR tablet 1 tablet (20 mEq total) 2 (two) times a day 08/20/20 22 Active alendronate (FOSAMAX) 70 mg tablet 01/10/20 23 Active cyanocobalamin (Vitamin B-12) 1,000 mcg tabletIndicati ons:Prevention of Vitamin B12 Deficiency Take 1 tablet (1,000 mcg total) by mouth daily Active pantoprazole DR (PROTONIX) 40 mg EC tablet TAKE 1 TABLET(40 MG) BY MOUTH DAILY 90 tablet 1 12/16/19 24 Active hydroxychloroq uine (PLAQUENIL) 200 mg tablet Take 1 tablet (200 mg total) by mouth 2 (two) times a day 180 tablet 1 01/01/20 24 Active sacubitriL-cayla sartan (ENTRESTO) 24-26 mg tabletIndicati ons:chronic heart failure Take 1 tablet by mouth 2 (two) times a day 180 tablet 3 01/17/20 24 Active dilTIAZem CD (CARDIZEM CD) 300 mg 24 hr capsule Take 1 capsule (300 mg total) by mouth daily 90 capsule 2 01/17/20 24 Active metoprolol XL (TOPROL-XL) 50 mg extended release tablet Take 1 tablet (50 mg total) by mouth daily To be taken with Metoprolol 100 mg tablet once daily 90 tablet 3 01/17/20 24 Active metoprolol XL (TOPROL-XL) 100 mg 24 hr tablet Take 1 tablet (100 mg total) by mouth daily To be taken with Metoprolol 50 mg tablet once daily 90 tablet 3 01/17/20 24 Active cephalexin (KEFLEX) 250 mg capsule Take 1 capsule (250 mg total) by mouth daily 05/08/20 24 Active traZODone (DESYREL) 50 mg tablet TAKE 1 TABLET BY MOUTH EVERY DAY AT BEDTIME NEEDED FOR INSOMNIA 10/01/20 24 Active MAGNESIUM ORAL Take 250 mg by mouth daily Active furosemide (LASIX) 80 mg tablet 10/23/20 24 Active magnesium oxide (MAG-OX) 250 mg (150.8 mg elemental) tablet Take 1 tablet (250 mg total) by mouth daily 10/09/20 24 Active colestipoL (COLESTID) 1 gram tablet Take 1 tablet (1 g total) by mouth daily 10/11/20 24 Active DULoxetine 40 mg capsule,delaye d release(DR/EC) TAKE 1 CAPSULE BY MOUTH DAILY 90 capsule 1 06/14/20 25 Active azaTHIOprine (IMURAN) 50 mg tabletIndicati ons:autoimmune disease Take 1 tablet (50 mg total) by mouth daily 90 tablet 1 06/14/20 25 026 Active predniSONE (DELTASONE) 2.5 mg tablet TAKE 1 TABLET(2.5 MG) BY MOUTH DAILY 90 tablet 1 07/06/20 Active predniSONE (DELTASONE) 2.5 mg tablet TAKE 1 TABLET(2.5 MG) BY MOUTH DAILY 90 tablet 1 01/04/20 25 025 Discontinued DULoxetine 40 mg capsule,delaye d release(DR/EC) Take 40 mg by mouth daily 30 capsule 2 03/23/20 25 025 Discontinued azaTHIOprine (IMURAN) 50 mg tabletIndicati ons:autoimmune disease Take 1 tablet (50 mg total) by mouth daily 30 tablet 2 03/23/20 025 Discontinued(Re order) Active Problems Problem Noted Date Diagnosed Date Body mass index 40.0-44.9, adult ([facility]) 01/17 Pulmonary hypertension 12/12/2023 Osteoarthritis 12/12/2023 Dilated cardiomyopathy 04/12/2023 HFrEF (heart failure with reduced ejection fract ion) 04/12/2023 Primary hypertension 06/28/2022 Assessment & Plan (07/03/2022 11:37 AM CDT): BP flucutates, pulse improved. Continues on Toprol 50mg & Lisinopril 5mg. Will increase Lisinopril to 10mg & pt needs to f/u with Spinning Machine Tender outpt. Assessment & Plan (06/28/2022 10:57 AM [...] an appointment with Pulmonary on 06/15 at [facility] for PFTs, may need to reschedule [...] prednisone 15 mg daily. Follows up with stone polisher hand, Dr. Bauman outpatient. Assessment & Plan (06/06/2022 [...] eliquis. Follow-up cardiology, Dr. Reyes/ Yolanda Soto, MIRROR MACHINE FEEDER on 06/22/22 10 am. Assessment & Plan [...] - will need to f/u w/ her malt house operator for further management upon DC Assessment [...] Follows up with Pulmonary, Dr. Norman and stone polisher hand Dr. Bauman. PFT scheduled at [facility] 06/15 Assessment & Plan (06/07/2022 12:06 [...] Lasix since 05/30 (held 06/03-06/05 secondary to IMKE) -stable pulmonary status on home oxygen need [...] [place] and repeatedly positive at [facility] on 05/27/2022. s/p remdesivir x2 days [...] [facility] (external result entered and pic of result [...] and cough. -Tested + on 05/22/22 at [facility] (external result entered and pic of result [...] and cough. -Tested + on 05/22/22 at [facility] (external result entered and pic of result [...] and cough. -Tested + on 05/22/22 at [facility] (external result entered and pic of result [...] and cough. -Tested + on 05/22/22 at [facility] (external result entered and pic of result in media tab) -s/p remdesivir x2 days for high risk->stopped for bradycardia/pauses w/HR 30-40 yesterday -may be able to lift COVID isolation ~06/02, IP aware Assessment & Plan (05/31/2022 5:09 PM CDT): Symptomatic with lethargy, leg swelling, and cough. -Tested + on 05/22/22 at [facility] (external result entered and pic of result [...] Reported two weeks of productive green sputum ADVANCE SEAL DELIVERY SYSTEM MAINTAINER. 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 Completed 7 total days of antibiotics (Azith, CTX) on 05/29. -pulm status at baseline. Assessment & Plan (06/03/2022 8:30 AM CDT): Reported two weeks of productive green sputum ADVANCE SEAL DELIVERY SYSTEM MAINTAINER. 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 Completed 7 total days of antibiotics (Azith, CTX) on 05/29. -pulm status at baseline. Assessment & Plan (06/02/2022 12:05 PM CDT): Reports two weeks of productive green sputum ADVANCE SEAL DELIVERY SYSTEM MAINTAINER. Started on cefdinir for PNA and UTI [...] her going back to prior facility. PT/OT sykayley completed today-rec SNF Assessment & Plan (05/30/2022 [...] with BMI of 4 5.0-49.9, adult ([facility]) 05/05/2020 10/13/2024 Assessment & Plan (06/07/2022 12:06 PM CDT): PT/OT consulted. Assessment & Plan (05/27/2022 8:21 PM CDT): PT/OT consulted. Encounters Date Type Department Care Team Description 04/08/2025 12:30 PM CDT Office Visit [facility] Advanced Medicine [address]th [place] [address] [place] [address] Denita Correa MD ILD (interstitial lung disease) ([facility]) (Primary Dx) 04/08/2025 11:37 AM CDT - 04/08/2025 11:59 PM CDT Hospital Encounter [facility] [address] [facility] [address] [place] [address] ILD (interstitial lung disease) (HCC) Discharge Disposition: Discharge to home or self care from Last 3 Months Immunizations Immunization Administration [...] on file Legal Sex Female 1:14 AM 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 MANAGER Gender Identity Female 05/04/2020 3:33 PM [...] Sign Reading Time Taken Comments Blood Pressure 97/63 04/08/2025 12:11 PM CDT Pulse 61 04/08/2025 12:11 PM CDT Temperature 36 C (96.8 F) 04/08/2025 12:11 PM CDT Respiratory Rate 18 04/08/2025 12:11 PM CDT Oxygen Saturation 95% 04/08/2025 12:11 PM CDT Inhaled Oxygen Concentration - - Weight 104.3 kg (230 lb) 04/08/2025 12:11 PM CDT Height 157.5 cm (5' 2) 04/08/2025 12:11 PM CDT Body Mass Index 42.07 04/08/2025 12:11 PM CDT Plan of Treatment Health Maintenance Due Date Last Done Comments Depression Screening 1950 Osteoporosis Screening-Bone Density Scan 1950 DTaP/Tdap/Td Vaccine (1 - Tdap) 1959 Hepatitis B Screening 1966 Zoster Vaccine (1 of 2) 1967 Well Visit 65+ 2013 Fall Risk Assessment 06/07/2023 06/07/2022 Influenza Vaccine (#1) 2025 , 09/16/2020, 10/16/2019 Pneumococcal vaccine 65+ Completed 10/16/2019, 11/25 Hepatitis C Screening Completed 03/09/2022 Procedures Procedure Name Priority Date/Time Associated Diagnosis Comments PULMONARY FUNCTION TEST (PFT) Routine 04/08/2025 11:57 AM CDT ILD (interstitial lung disease) (HCC) HEPATITIS PANEL, ACUTE Routine 03/09/2022 9:20 AM CDT 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) from Last 3 Months or Most Recently Relevant to Health Maintenance Results * Pulmonary Function Test - (04/08/2025 11:57 AM CDT) FVC PRE 0.93 L [facility] FVC %PRE PRED 38 % [facility] FEV1 PRE 0.77 L [facility] FEV1 %PRE PRED 41 % [facility] FEV1/FVC PRE 82.9 % [facility] Anatomical Region Laterality Modality PFT 04/08/2025 11:5 4 AM CDT Narrative 04/10/2025 3:29 AM CDT PFT performed at:->[facility] Adult PFT Lab- [id number] Procedure:->Spirometry Pulmonary Function Test Interpretation SPIROMETRY: The FEV1 to FVC ratio is normal. The FEV1 and FVC are reduced in a pattern suggestive of a restrictive abnormality. The flow volume loop is normal. Impression: There is a severe restrictive ventilatory [...] and %HbO2 is age dependent. However, the [facility] Pulmonary Function Laboratory defines hypoxemia as a PaO2 <56 mm Hg or a %HbO2 <89%. Starting on November of 2024 the [facility] Pulmonary Function Laboratory utilizes race neutral GLI Global normative equations. Denita Correa MD PFT ORDERABLES Final Result * Hepatitis panel, acute (03/09/2022 9:20 AM CDT) Hep A IgM Nonreactive Nonreactive [facility] Comment: Interpretive Data: If Hep A IgM Ab is reported as Equivocal, a new sample should be drawn in two weeks for testing. Current interpretive data was last revised on 20. Hep B core IgM Nonreactive Nonreactive [facility] Comment: Interpretive Data If HepB Core IgM Ab is reported as Equivocal, a new sample should be drawn in two weeks for testing. Current interpretive data was last revised on 20. Hep C Ab Nonreactive Nonreactive [facility] Comment:Antibodies to HCV no t detected. Does NOT exclude the possibility of recent exposure to HCV. HepBsAg Nonreactive Nonreactive [facility] Blood 03/09/2022 9:20 AM CDT 03/09/2022 10:20 AM CDT Sandra Bauman MD LAB MICROBIOLOGY - GENERAL ORDER KHOA Final Result [facility] Department [place] [address] from Last 3 Months or Most Recently Relevant to Health Maintenance Insurance [facility] MEDICARE MEDICARE BLUE CROSS MEDICARE SUPPLEMENT [facility] MEDICARE BLUE CROSS MEDICARE SUPPLEMENT Advance Directives For more information, please contact: [phone] Documents on File Type Date Recorded Patient Estate Agent Expl anation ADVANCE DIRECTIVE 11/03/2021 10:23 AM [facility] er of Health And Safety Inspector-Medical * Full Code (Latest Code Status on File) Date Activated Date Inactivated Comments 05/27/2022 7:14 PM 06/07/2022 10:45 PM Care Teams Hourly Team Members Relationship Specialty Start Date End Date Timothy Donis MD PCP - General Family Practice 04/12/23 Ni Armas, BILLY Registered Nurse Pulmonary Disease 01/11/23 Myles Reyes MD [address] [place] [address] Spinning Machine Tender Cardiology 12/23/24
--- OUTSIDE RECORDS SUMMARY | 2025-07-09 07:53 | XMS_ITS | Clinical Summary ---
Author Organization [facility] Address [address] [place] [address] Phone Care Team Providers Care Metal Rolling Mill Operator Name Role Phone Modesto Reyez Primary Care Provider [phone] Allergies No known active allergies Medications Calcium [...] 1:15 PM CDT Height 160 cm (5' 3) 08/22/2022 1:15 PM CDT Body Mass Index 42.51 08/22/2022 1:15 PM CDT Plan of Treatment Health Maintenance Due Date Last Done Comments Pneumococcal PPSV23/PCV13 65 + Years / Low and Medium Risk (2 of 3 - PCV) 10/16/2020 10/16/2019 Influenza Vaccine (#1) 2025 09/08/2021 Insurance MEDICARE [facility] BLUE CROSS Care Teams Metal Rolling Mill Operator Relationship Specialty Start Date End Date Modesto Reyez DO [address] [place] [id number] PCP - General Internal Medicine 06/16/20
[2025-07-09 08:21] LABS: Hematocrit 32.0 % (37.0-47.0); Hemoglobin 9.8 g/dL (12.0-15.0); Immature Granulocyte Percent A 0.6 % (0-0.5); Lymphocytes Absolute Auto 1.28 K/mm3 (0.9-3.2); Mean Corpuscular HGB Conc 30.6 g/dl (32-36); Mean Corpuscular Hemoglobin 30.3 pg (26-34); Mean Corpuscular Volume 99.1 fl (80-100); Nucleated Red Blood Cells Absolute Auto 0.000 K/mm3 (0.0-0.012); Nucleated Red Blood Cells Perc 0.0 % (0.0-0.2); Platelet Count Result 247 k/mm3 (150-375); Red Blood Count 3.23 M/mm3 (4.2-5.4); White Blood Count 9.3 K/mm3 (4.5-10.0)
[2025-07-09 09:08] LABS: Alanine Aminotransferase 15 U/L (6-35); Albumin Level 4.2 g/dL (3.5-5.1); Alkaline Phosphatase 42 U/L (38-126); Anion Gap 10 mmol/L (4-12); Aspartate Amino Transferase 28 U/L (14-36); Bilirubin,Total 0.4 mg/dL (0.2-1.3); Blood Urea Nitrogen 46 mg/dL (7-17); Calcium 10.6 mg/dL (8.4-10.2); Carbon Dioxide 27 mmol/L (22-30); Chloride 99 mmol/L (98-107); Estimated Glomerular Filt Rate 37; Glucose 96 mg/dL (65-110); Potassium 3.8 mmol/L (3.4-5.0); Sodium 136 mmol/L (137-145); Total Protein 7.1 g/dL (6.3-8.2)
[2025-07-09 09:12] LABS: Thyroid Stimulating Hormone Reflex 2.170 uIU/mL (0.465-4.68)
== END 2025-07-09 07:46 | disposition home or self-care (01) ==
PROVIDERS: PCP Family Medicine; Visit Provider Internal Medicine Cardiovascular Disease
DX: I50.32 Chronic diastolic (congestive) heart failure (principal); I95.2 Hypotension due to drugs
CPT/HCPCS: 36415; 80053; 84443; 85025

== ENCOUNTER 2025-07-13 08:54 | Outpatient (RCR) | payer MEDICARE, SELFPAY ==
--- NOTE | 2025-07-13 09:17 | WNDPHOTO ---
PHOTO ONLY - See Nursing Notes and/ or assessments for documentation.
== END 2025-08-25 14:36 | disposition home or self-care (01) ==
LOC: ANHWOC 08:54
PROVIDERS: PCP Family Medicine; Visit Provider Nurse Practitioner Family
DX: S81.801A Unspecified open wound, right lower leg, initial encounter (principal); S81.802A Unspecified open wound, left lower leg, initial encounter
CPT/HCPCS: 99213; G0463

== ENCOUNTER 2025-07-17 14:45 | Inpatient (IN) | payer MEDICARE, SELFPAY ==
[2025-07-17] VITALS (10 sets, daily range): BP systolic 95–125; BP diastolic 51–80; PULSE 71–103; RESP 17–24; TEMP 36.5–36.9; O2SAT 92–100; BMI 40.1
--- NOTE | ~2025-07-17 | XR_ITS ---
XR lumbar spine 2-3V 07/17/2025 17:07 Indication: Status post fall. Back pain. Procedure: 2 views lumbar spine Comparison: 07/04/2016 Findings: Lateral view limited due to underpenetration. There is levocurvature of the lumbar spine. There is disc narrowing at all lumbar levels. The posterior spinous processes are not well evaluated on the lateral view. There is a wedge compression fracture of T12, age indeterminate, although new compared with prior examination. Impression: 1: Severe lumbar spondylosis. Limited study. 2: Wedge compression fracture of T12, age indeterminate. Reviewed, dictated and finalized at location O. Impression: 1: Severe lumbar spondylosis. Limited study. 2: Wedge compression fracture of T12, age indeterminate.
--- NOTE | ~2025-07-17 | XR_ITS ---
XR hip BI 2V w AP pelvis 07/17/2025 17:07 Indication: Hip pain after fall Procedure: AP pelvis and 2 views each hip Comparison: 05/23/2022 Findings: Severe osteoarthritis of the hips with remodeling of the left femoral head. No acute fracture or traumatic malalignment. Pelvic rings intact. Sacral foramen are symmetric. Impression: 1: Severe osteoarthritis of the hips with progression since prior examination. Possible avascular necrosis left femoral head. Reviewed, dictated and finalized at location O. Impression: 1: Severe osteoarthritis of the hips with progression since prior examination. Possible avascular necrosis left femoral head.
--- OUTSIDE RECORDS SUMMARY | 2025-07-17 15:29 | XMS_ITS | Encounter Summary ---
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
--- OUTSIDE RECORDS SUMMARY | 2025-07-17 15:29 | XMS_ITS | Clinical Summary ---
Author Organization [facility] Address [address] [place] [address] Care Team Providers Care Boiler Or Engine Operator Name Role Phone Timothy Donis MD Primary Care Provider [phone] Allergies No known active allergies Medications acetaminophen [...] 07/02/20 25 Discontinu ed(Dose/fo rm adjustment ) Active Problems Patient Care Coordination No te Formatting of this note migh t be different from the original. Office Secretary Dr. Amy Ambrose Problem Noted Date Diagnosed Date Hypotension due to drugs 07/02/2025 Atrial flutter 07/02/2025 Chronic kidney disease 06/19/2024 Chronic heart failure with preserved ejection fr action 06/19/2024 Dilated cardiomyopathy 04/12/2023 Primary hypertension 06/28/2022 Overview (06/19/2024): Last Assessment & Plan: BP flucutates, pulse improved. Continues on Toprol 50mg & Lisinopril 5mg. Will increase Lisinopril to 10mg & pt needs to f/u with Office Secretary outpt. History of pulmonary embolism 06/10/2022 Overview [...] Follows up with Pulmonary, Dr. Norman and ammunition officer Dr. Bauman. PFT scheduled at [facility] 06/15 H/O influenza 11/02/2021 Obstructive sleep apnea [...] Encounters Date Type Department Care Team Description 07/09/2025 Results Follow-Up [facility] [address] [place] [address] Myles Reyes MD TSH REFLEXIVE, COMPREHENSIVE METABOLIC PANEL 07/09/2025 Orders Only [facility] - [address] [place] [address] Daja Bajwa LPN Chronic heart failure with preserved ejection fraction (CMS/HCC); Hypotension due to drugs 07/02/2025 8:15 AM CDT Office Visit [facility] - [address] [place] [address] Myles Reyes MD Chronic heart failure with preserved ejection fraction (CMS/HCC) (Primary Dx); Longstanding persistent atrial fibrillation (CMS/HCC); Atrial flutter, unspecified type (CMS/HCC); Chronic interstitial lung disease (CMS/HCC); Hypotension due to drugs; Primary hypertension; Rheumatoid arthritis, involving unspecified site, unspecified whether rheumatoid factor present (CMS/HCC); History of pulmonary embolism; Chronic anticoagulation 05/11/2025 External Device Data STL ABSTRACTION Provider, Abstract 05/10/2025 Refill [facility] - [address] [place] [address] Myles Reyes MD 04/29/2025 9:45 AM CDT Office Visit [facility] - [address] [place] [address] Myles Reyes MD Chronic heart failure with [...] Sex Assigned at Female 11/03/2024 11:06 AM ELECTRICAL FITTER Legal Sex Female 1:41 PM CDT Gender Identity Female 11/03/2024 11:06 AM ELECTRICAL FITTER Sexual Orientation Not on file Last Filed [...] Description 08/06/2025 10:15 AM CDT Office Visit [facility] - [address] [place] [address] Myles Reyes MD [address] [place] [address] 09/03/2025 9:00 AM CDT Office Visit [facility] - [address] [place] [address] Myles Reyes MD [address] [place] [address] Health Maintenance Due Date Last Done Comments DTAP/TDAP/TD VACCINES (1 - Tdap) 1969 ZOSTER VACCINE (1 of 2) 1967 RSV VACCINE (60+ or ) (1 - 1-dose 75+ series) 2023 INFLUENZA VACCINE (#1) 2025 09/16/2020, 2018 OSTEOPOROSIS SCREENING 01/08/2028 01/08/2023, 2018 PNEUMOCOCCAL VACCINE 50+ YEARS Completed 10/16/2019 , 12/05/2017 Procedures Procedure Name Priority Date/Time Associated Diagnosis Comments COMPREHENSIVE METABOLIC PANEL Routine 07/09/2025 11:43 AM CDT Chronic heart failure with preserved ejection fraction (CMS/HCC) Hypotension due to drugs TSH REFLEXIVE Routine 07/09/2025 11:43 AM CDT Chronic heart failure with preserved ejection fraction (CMS/HCC) Hypotension due to drugs [place] ECG ROUTINE ECG W/LEAST 12 LDS W/I&R Routine 07/02/2025 8:15 AM CDT Atrial flutter, unspecified type (CMS/HCC) from Last 3 Months Results * COMPREHENSIVE METABOLIC PANEL (07/09/2025 11:43 AM CDT) Blood 07/09/2025 11:4 3 AM CDT Myles Reyes MD CHEMISTRY ORDERABLES Fin al Result NON [facility] * TSH REFLEXIVE (07/09/2025 11:43 AM CDT) Blood 07/09/2025 11:4 3 AM CDT Myles Reyes MD CHEMISTRY ORDERABLES Fin al Result [facility] * [place] ECG ROUTINE ECG W/LEAST 12 LDS W/I&R (07/02/2025 8:15 AM CDT) Narrative [facility] [address] - 07/02/2025 8:15 AM CDT Myles Reyes MD 07/02/2025 5:25 PM EKG Date/Time: 07/02/2025 8:15 AM Performed by: Myles Reyes MD Authorized by: Myles Reyes MD Comments: Atrial flutter with variable AV block 74 bpm QRS [address] abnormality nonspecific IVCD Procedure Note Myles Reyes MD - 07/02/2025 8:02 AM CDT [facility] Cardiology Outpatient Progress Note [...] was previously followed by Dr. Parker. Her hairspring i inspector is . Her ammunition officer is Dr. Kobe Gerard. She presented to [facility] on 01/01/2020 with complaint of worsening [...] Spironolactone was discontinued. OLD RECORDS care everywhere [facility]: 02/09/20 HFU w/ CAT- she comes to the office today for hospital follow-up.She is accompanied by her daughter. Since discharge she has been feelingbetter but over the last few days has felt more fatigued. She is able togo up the 14 steps in her house, and her heart rate will elevate to nrupw472 bpm, but then it promptly goes back down. She has been weighingherself daily at home in weights have been stable. She is trying to drink2 L of fluid a day but sometimes finds it hard to finish all of it. Shewears oxygen p.r.n. Activity. She is using her CPAP machine nightly, butsometimes remove sit nursing home through the night. PCP follows her [...] beentrying to lose some weight, following a 7407-8387 Na restriction. Nowusing a foot pedal for [...] CAT visit-On 09/21/21 she went to [facility] ER forcomplaint of worsening shortness of breath. [...] referred her to pulmonology at [facility] and thatappointment is next month. 12-lead ECG performed in the office today was independently interpreted byme and showed sinus rhythm, normal axis and normal intervals, rate 88beats per minute 11/02/21 Says not feeling any better at all [facility] hurts to do everything takes a lot out of her, no energyor appetite, SOB same as before. Attributes a lot to being off her painmeds including Hydroxychloroquine and Methotrexate for a while while inhospital. On CPAP. Not much edema though. Pain is mostly in shoulders andhands. Uses heating pad and Tylenol. Saw PCP recently. Sees Pulm at [facility]. Using 2L O2 at rest 4L O2 with activity. She notes her O2 dropsto 85% on 4L still. Rheum adjusting meds on prednisone for 1 week withoutnoted improvement thus far. Has PT coming into home. 04/17/22 Admitted to [facility] with ILD and CHF admits she hasn't [...] CAT visit - she was hospitalized at [facility] 05/25-05/26 for pulmonaryedema, tested positive for COVID, treated for rib fractures due to a fall2 days prior. Then hospitalized at [facility] 05/27-06/07 for treatment ofpneumonia (bacterial verses COVID) / COPD exacerbation, diastolic heartfailure exacerbation. She became bradycardic on telemetry (heart [id number] with pause up to 3 seconds) so remdesivir was stopped and metoprololwas stopped. IV furosemide caused MIKE so she was discharged withoutfurosemide but it has since been restarted in alf rehab(currently she is at [facility] in [place]). When she isdoing physical therapy her heart [...] RVR and atrialflutter with RVR. Went to [facility] after February admission then backto [facility] in March after and she feels diet at [facility] is to faultand salty. Cough is incessant at [facility]. Has blood in stoolreported so UGI recommended discharge yesterday on Dilt 300mg daily andToprol XL 150mg Lasix 40mg BID Echo with EF 27% but in AF with RVR.Extensively reviewed [facility] records. Patient's daughter veryconcerned about her cough [...] elevate them. Todayshnick had an appointment at [facility] with her hairspring i inspector so she has not beenable to elevate [...] History: Past Medical History: Diagnosis Date A-fib ([facility]) Congestive heart failure ([facility]) Hyperlipidemia Hypertension Renal disease Allergies: No Known [...] Personally reviewed outside records from care everywhere [facility]: 07/11/22 AMBULATORY SECURITIES ATTORNEY REPORT Interpretation: Underlying rhythm is persistent atrial [...] rate. LongestRR intervals appeared to have occurred spice miller hammer mill overnight hourspresumably while asleep. Sinus rhythm was [...] targets (1) sacubitriL-valsartan (ENTRESTO) 24-26 mg Tablet [[id number]] Diuretics as needed (1) furosemide (LASIX) 40 mg tablet [[id number]] Advance care planning & code status Code [...] (CMS/HCC)I50.32 428.9 2. Longstanding persistent atrial fibrillation ([facility]) I48.11 427.31 3. Atrial flutter, unspecified type ([facility]) I48.92 427.32 4. Chronic interstitial lung disease ([facility]) J84.9 515 5. Hypotension due to drugs I95.2 458.8 E947.9 6. Primary hypertension I10 401.9 7. Rheumatoid arthritis, involving unspecified site, unspecified whetherrheumatoid factor present ([facility]) M06.9 714.0 8. History of pulmonary embolism [...] orworsening edema and/or FALCON. -Echo 04/05/2023 at [facility] EF 25-30% during AFib with [id number] MR moderate pulmonary hypertension RVSP 50 mm [...] This note was dictated and transcribed using An[employer] DD Speech Recognitionsoftware. Copy Director variances may occur. Despite proofreading,typographical errors may occur. Myles Reyes MD us Myles Reyes MD ECG ORDERABLES Final Re sult [facility] [address] PURI# [id number] [address] [place] [address] from Last 3 Months Insurance MEDICARE PART A AND B BCBS SUPP Advance Directives For more information, please contact: [phone] Documents on File Type Date Recorded Patient Entry Level Electrical Engineer Expl anation Advance Directive POA 06/19/2024 9:45 AM A dvance Directive POA Care Teams Boiler Or Engine Operator Relationship Specialty Start Date End Date Timothy Donis MD [address] [place] [address] PCP - General Family Practice 10/30/24
--- OUTSIDE RECORDS SUMMARY | 2025-07-17 15:29 | XMS_ITS | Clinical Summary ---
Author Organization [facility] [address] Address [address] [place] [address] Care Team Providers Care Construction Ironworker Helper Name Role Phone Ni Armas RN Unavailable Lizette Timothy Land MD Primary Care Provider [phone] Myles Reyes MD Unavailable [phone] Allergies No known active allergies Medications pravastatin [...] BY MOUTH DAILY 90 tablet 1 07/06/20 25 Active predniSONE (DELTASONE) 2.5 mg tablet TAKE 1 TABLET(2.5 MG) BY MOUTH DAILY 90 tablet 1 01/04/20 25 025 Discontinued Active Problems Problem Noted Date Diagnosed Date Body mass index 40.0-44.9, adult ([facility]) 01/17 Pulmonary hypertension 12/12/2023 Osteoarthritis 12/12/2023 Dilated cardiomyopathy 04/12/2023 HFrEF (heart failure with reduced ejection fract ion) 04/12/2023 Primary hypertension 06/28/2022 Assessment & Plan (07/03/2022 11:37 AM CDT): BP flucutates, pulse improved. Continues on Toprol 50mg & Lisinopril 5mg. Will increase Lisinopril to 10mg & pt needs to f/u with Commercial Intelligence Manager outpt. Assessment & Plan (06/28/2022 10:57 AM [...] an appointment with Pulmonary on 06/15 at [facility] for PFTs, may need to reschedule [...] prednisone 15 mg daily. Follows up with drafter electromechanical, Dr. Bauman outpatient. Assessment & Plan (06/06/2022 [...] - will need to f/u w/ her pediatric registered nurse for further management upon DC Assessment & [...] Follows up with Pulmonary, Dr. Norman and drafter electromechanical Dr. Bauman. PFT scheduled at [facility] 06/15 Assessment & Plan (06/07/2022 12:06 [...] on 05/22/22 at [facility] and repeatedly positive at [facility] on 05/27/2022. s/p remdesivir x2 days [...] Reported two weeks of productive green sputum PRIVATE WATCHMAN. 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 Completed 7 total days of antibiotics (Azith, CTX) on 05/29. -pulm status at baseline. Assessment & Plan (06/03/2022 8:30 AM CDT): Reported two weeks of productive green sputum PRIVATE WATCHMAN. 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 Completed 7 total days of antibiotics (Azith, CTX) on 05/29. -pulm status at baseline. Assessment & Plan (06/02/2022 12:05 PM CDT): Reports two weeks of productive green sputum PRIVATE WATCHMAN. Started on cefdinir for PNA and UTI [...] back to prior facility. 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 Current interpretive data was last revised on 20. Hep B core IgM Nonreactive Nonreactive [facility] Comment: Interpretive Data If HepB Core IgM Ab is reported as Equivocal, a new sample should be drawn in two weeks for testing. Current interpretive data was last revised on 20. Hep C Ab Nonreactive Nonreactive [facility] Comment:Antibodies to HCV no t detected. Does NOT exclude the possibility of recent exposure to HCV. HepBsAg Nonreactive Nonreactive [facility] Blood 03/09/2022 9:20 AM CDT 03/09/2022 10:20 AM CDT Sandra Bauman MD LAB MICROBIOLOGY - GENERAL ORDER KHOA Final Result [facility] [place] [address] from Last 3 Months or Most Recently Relevant to Health Maintenance Insurance [facility] MEDICARE MEDICARE BLUE CROSS MEDICARE SUPPLEMENT [facility] MEDICARE [facility] MEDICARE SUPPLEMENT Advance Directives For more information, please contact: [phone] Documents on File Type Date Recorded Patient Registered Nurse Supervisor Expl anation ADVANCE DIRECTIVE 11/03/2021 10:23 AM [facility] er of Beverage Sales Consultant-Medical * Full Code (Latest Code Status on File) Date Activated Date Inactivated Comments 05/27/2022 7:14 PM 06/07/2022 10:45 PM Care Teams Construction Ironworker Helper Relationship Specialty Start Date End Date Timothy Donis MD PCP - General Family Practice 04/12/23 Ni Armas, BILLY Registered Nurse Pulmonary Disease 01/11/23 Myles Reyes MD [address] [place] [address] Commercial Intelligence Manager Cardiology 12/23/24
--- OUTSIDE RECORDS SUMMARY | 2025-07-17 15:29 | XMS_ITS | Encounter Summary ---
Author Organization [facility] Address [address] [place] [address] Phone Care Team Providers Care Mortgage Loan Funder Name Role Phone Modesto Reyez DO Primary Care Provider [phone] Ni Armas RN Unavailable Lizette Liliana Prakash MD Primary Care Provider [phone] Timothy Donis MD Primary Care Provider [phone] Myles Reyes MD Unavailable [phone] Encounter Details Date Type Department Care Team [...] on file Legal Sex Female 1:14 AM EVIDENCE TECHNICIAN Gender Identity Female 05/04/2020 3:33 PM [...] the result is from a facility outside [facility] . 05/22/2022 05/27/2022 06/17/2022 3:05 AM CDT COVID: Recovered Comment:Added based on recent COVID infection. 06/17/2022 06/18/2022 10/15/2022 3:[address] documented as of this encounter Care Teams Mortgage Loan Funder Relationship Specialty Start Date End Date Modesto Reyez DO PCP - General Internal Medicine 01/03/20 01/13/23 Liliana Baron MD PCP - General Internal Medicine 01/14/23 04/11/23 Timothy Donis MD PCP - General Family Practice 04/12/23 Ni Armas, BILLY Registered Nurse Pulmonary Disease 01/11/23 Myles Reyes MD [address] [place] [address] Android Architect Cardiology 12/23/24 documented as of this encounter
--- OUTSIDE RECORDS SUMMARY | 2025-07-17 15:29 | XMS_ITS | Encounter Summary ---
Author Organization [facility] Address [address] [place] [address] Phone Care Team Providers Care Clearing Supervisor Name Role Phone Modesto Reyez DO Primary Care Provider [phone] Ni Armas RN Unavailable Lizette Liliana Prakash MD Primary Care Provider [phone] Timothy Donis MD Primary Care Provider [phone] Myles Reyes MD Unavailable [phone] Encounter Details Date Type Department Care Team [...] on file Legal Sex Female 1:14 AM PROPELLANT ASSEMBLER Gender Identity Female 05/04/2020 3:33 PM [...] documented as of this encounter Care Teams Clearing Supervisor Relationship Specialty Start Date End Date Modesto Reyez DO PCP - General Internal Medicine 01/03/20 01/13/23 Liliana Baron MD PCP - General Internal Medicine 01/14/23 04/11/23 Timothy Donis MD PCP - General Family Practice 04/12/23 Ni Armas, BILLY Registered Nurse Pulmonary Disease 01/11/23 Myles Reyes MD [address] [place] [address] Emt Driver Cardiology 12/23/24 documented as of this encounter
--- OUTSIDE RECORDS SUMMARY | 2025-07-17 15:29 | XMS_ITS | Clinical Summary ---
Author Organization [facility] Address [address] [place] [address] Phone Care Team Providers Care Printed Circuit Boards Plasma Etcher Name Role Phone Modesto Reyez Primary Care Provider [phone] Allergies No known active allergies Medications Calcium [...] Influenza Vaccine (#1) 2025 09/08/2021 Insurance MEDICARE [facility] BLUE CROSS Care Teams Printed Circuit Boards Plasma Etcher Relationship Specialty Start Date End Date Modesto eRyez DO [address] [place] [phone] PCP - General Internal Medicine 06/16/20
--- OUTSIDE RECORDS SUMMARY | 2025-07-17 15:29 | XMS_ITS | Encounter Summary ---
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
--- OUTSIDE RECORDS SUMMARY | 2025-07-17 15:29 | XMS_ITS | Encounter Summary ---
Author Organization [facility] Address [address] [place] [address] Phone Care Team Providers Care Commercial Intern Name Role Phone Modesto Reyez DO Primary Care Provider Ni Armas RN Unavailable Lizette Liliana Prakash MD Primary Care Provider [phone] Timothy Donis MD Primary Care Provider [phone] Myles Reyes MD Unavailable [phone] Encounter Details Date Type Department Care Team [...] on file Legal Sex Female 1:14 AM BULK INTAKE WORKER Gender Identity Female 05/04/2020 3:33 PM [...] the result is from a facility outside [facility] . 05/22/2022 05/27/2022 06/17/2022 3:05 AM CDT COVID: Recovered Comment:Added based on recent COVID infection. 06/17/2022 06/18/2022 10/15/2022 3:[address] documented as of this encounter Care Teams Commercial Intern Relationship Specialty Start Date End Date Modesto Reyez DO PCP - General Internal Medicine 01/03/20 01/13/23 Liliana Baron MD PCP - General Internal Medicine 01/14/23 04/11/23 Timothy Donis MD PCP - General Family Practice 04/12/23 Ni Armas, BILLY Registered Nurse Pulmonary Disease 01/11/23 Myles Reyes MD [address] [place] [address] Tonnage Compilation Clerk Cardiology 12/23/24 documented as of this encounter
[2025-07-17] MEDS: HYDROcodone/acetaminophen (*CRX) 5-325 MG TABLET 1 TAB PO ×2 (15:36→22:34)
--- NOTE | 2025-07-17 17:02 | ED.GENADULT ---
HPI - General Adult General Chief complaint: Fall Stated complaint: fall Time Seen by Provider: 07/17/25 14:54 History of Present Illness HPI narrative: Patient is a 75-year-old female who presents ER with pain to her hips and buttocks. She had a slip and fall while she is in the shower at home. Landed directly antibiotic. Unable to get back up. Did not strike her head or lose consciousness. Chronically O2 dependent on 4 L nasal cannula. She is on eliquis. Related Data Home Medications ?Medication ?Instructions ?Recorded ?Confirmed ?Last Taken ?Type Calcium 600-D3 Plus (mag-zinc) 1 tablet PO BID 07/21/22 07/06/25 09/06/23 History cholecalciferol (vitamin D3) 25 2,000 mcg PO DAILY 07/21/22 07/06/25 09/06/23 History mcg (1,000 unit) capsule cyanocobalamin (vitamin B-12) 1,000 mcg PO DAILY 07/21/22 07/06/25 09/06/23 History 1,000 mcg tablet hydroxychloroquine 200 mg tablet 200 mg PO BID 07/21/22 07/06/25 09/06/23 History acetaminophen 325 mg capsule 650 mg PO Q6H PRN Pain 12/27/22 07/06/25 09/06/23 History (Tylenol) metoprolol succinate 50 mg 50 mg PO DAILY 03/22/23 07/06/25 10/03/23 History tablet,extended release 24 hr metoprolol succinate 100 mg 100 mg PO DAILY 08/28/23 07/06/25 09/06/23 History tablet,extended release 24 hr cephalexin 250 mg capsule 250 mg PO DAILY 08/13/24 07/06/25 Unknown History prednisone 2.5 mg tablet 2.5 mg PO DAILY 08/13/24 07/06/25 Unknown History furosemide 80 mg tablet mg PO 10/01/24 07/06/25 Unknown History azathioprine 50 mg tablet mg PO 02/18/25 07/06/25 Unknown History Allergies Allergy/AdvReac Type Severity Reaction Status Date / Time No Known Allergies Allergy Verified 07/17/25 14:56 Review of Systems Review of Systems: All systems reviewed & are unremarkable except as noted in HPI and below Constitutional: Constitutional: Reports no additional constitutional complaints ENT: Reports system reviewed and no additional complaints, except as documented Cardiovascular: Cardiovascular: Reports no additional cardiovascular complaints Respiratory: Respiratory: Reports no additional respiratory complaints Integumentary/Breasts: Skin/Breast: Reports system reviewed and no additional complaints, except as docu PMFSH Past Medical History Medical History Chronic diarrhea Fecal occult blood test positive Chronic anticoagulation Chronic kidney disease, stage 3 Chronic anemia Deep venous thrombosis (2004) Degenerative joint disease Chronic respiratory failure with hypoxia, on home oxygen therapy On 2 to 4 L nasal cannula. Chronic diastolic congestive heart failure Echocardiogram in 06/2022 showed an EF 50 to 55% and diastolic dysfunction. Osteoporosis Vitamin D deficiency Paroxysmal atrial fibrillation Morbid obesity Interstitial lung disease Pre-diabetes Post menopausal syndrome Stress incontinence Shingles Hearing loss Rheumatoid arthritis Depression with anxiety Nonspecific interstitial pneumonitis Pulmonary embolism (2004) History of COVID-19 Obstructive sleep apnea on CPAP Hypothyroidism Hyperlipidemia Essential hypertension Diverticulosis Surgical History Surgical History History of cholecystectomy History of parathyroidectomy History of section History of arthroscopy of right knee History of tonsillectomy and adenoidectomy History of bilateral knee replacement History of cardiac catheterization Family History Family History Mother Hypertension Father Pulmonary emboli Rheumatoid arthritis Mother , at 91 due to old age Hypertension Father , at 58 due to PE Family history of rheumatoid arthritis Family history of pulmonary embolism Grandparent Cerebrovascular accident Other Family history of malignant neoplasm Social History Social History Social History: [facility] she lived with her daughter Katya in her house prior to going into the rehab facility. Originally from [place], [place]. Surrogate medical decision maker: Mae Cash, daughter. Code status: Full code. Smoking status: Never smoker Second hand tobacco smoke exposure: No Alcohol intake: never Substance use: never Substance use type: does not use Do You Feel Safe in your Home?: Yes Lack of Transportation: No Lack of Food: Never True Current Housing: I Have Housing Concerned About Future Housing: No Difficulty Paying Gas/Electric Bills: No Difficulty Paying for Meds: No Currently Unemployed: No Education: Grade School Difficulty w/ Childcare or Family Care: No Living arrangements: with family Additional living arrangements comments: LIVES WITH PAOLA BRITT Occupation/Education: retired Gender identity (if verbalized by the patient): Female Spiritual care concerns: No Agree to blood products: Yes Exam Narrative: GENERAL: Chronically ill-appearing, well-nourished, and in no acute distress. HEAD: Normocephalic, atraumatic. EYES: PERRL and EOMI. ENT: Mucous membranes moist. CHEST: Clear to auscultation. No respiratory distress. HEART: Regular rate and rhythm. Normal peripheral pulses. ABDOMEN: Soft, nontender, nondistended. EXTREMITIES: Normal range of motion. No edema. Back: Tender palpation over mid lower back and paraspinal musculature bilaterally. No step-off/abrasions/bruises. SKIN: Warm, dry, no rash. Old bruising of the shins bilaterally. NEURO: Alert and oriented x3. PSYCH: Normal mood and affect. Course Course Emergency Course: Patient and family informed of fractures and lab results. Admit to hospitalist service. Orthopedic surgery consulted. Patient will likely require placement and rehabilitation. Vital Signs Vital signs: Vital Signs Temperature 98.1 F 07/17/25 14:57 Pulse Rate 71 07/17/25 14:57 Respiratory Rate 17 07/17/25 14:57 Blood Pressure 102/74 07/17/25 14:57 Pulse Oximetry 98 07/17/25 14:57 Oxygen Delivery Nasal Cannula 07/17/25 14:57 Oxygen Flow Rate 4 07/17/25 14:57 Temperature 97.9 F 07/17/25 18:04 Pulse Rate 89 07/17/25 18:04 Respiratory Rate 24 H 07/17/25 18:04 Blood Pressure 116/77 07/17/25 18:04 Pulse Oximetry 96 07/17/25 18:04 Oxygen Delivery Nasal Cannula 07/17/25 17:51 Oxygen Flow Rate 4 07/17/25 17:51 Medical Decision Making Vital Signs Vital Signs: Vital Signs Temperature 98.1 F 07/17/25 14:57 Pulse Rate 71 07/17/25 14:57 Respiratory Rate 17 07/17/25 14:57 Blood Pressure 102/74 07/17/25 14:57 Pulse Oximetry 98 07/17/25 14:57 Oxygen Delivery Nasal Cannula 07/17/25 14:57 Oxygen Flow Rate 4 07/17/25 14:57 Temperature 97.9 F 07/17/25 18:04 Pulse Rate 89 07/17/25 18:04 Respiratory Rate 24 H 07/17/25 18:04 Blood Pressure 116/77 07/17/25 18:04 Pulse Oximetry 96 07/17/25 18:04 Oxygen Delivery Nasal Cannula 07/17/25 17:51 Oxygen Flow Rate 4 07/17/25 17:51 Lab Data 07/17/25 17:13 07/17/25 17:13 Labs: Lab Results 07/17/25 07/17/25 Range/Units 17:13 17:41 WBC 13.7 H (4.5-10.0) K/mm3 RBC 3.09 L (4.2-5.4) M/mm3 Hgb 9.4 L (12.0-15.0) g/dL Hct 30.8 L (37.0-47.0) % MCV 99.7 (80-100) fl MCH 30.4 (26-34) pg MCHC 30.5 L (32-36) g/dl RDW 14.2 (11.5-14.5) % Plt Count 240 (150-375) k/mm3 MPV 9.5 (7.4-10.4) fl Immature Gran % (Auto) 0.7 H (0-0.5) % Neut % (Auto) 87.2 H (45.5-73.1) % Lymph % (Auto) 4.7 L (18.3-44.2) % [place] % (Auto) 7.1 (2.6-8.5) % Eos % (Auto) 0.0 (0-4.4) % Baso % (Auto) 0.3 (0.2-1.2) % Lymph # (Auto) 0.64 L (0.9-3.2) K/mm3 [place] # (Auto) 1.0 H (0.1-0.6) K/mm3 Eos # (Auto) 0.0 (0-0.3) K/mm3 Baso # (Auto) 0.0 (0.0-0.1) K/mm3 Abs Immat Gran (auto) 0.09 H (0.00-0.031) K/mm3 Absolute Neuts (auto) 12.0 H (1.3-6.7) K/mm3 Absolute Nucleated RBC 0.000 (0.0-0.012) K/mm3 Nucleated RBC % 0.0 (0.0-0.2) % PT 17.6 H (11.1-14.7) Seconds INR 1.5 APTT 26.8 (22.3-36.8) Seconds Sodium 135 L (137-145) mmol/L Potassium 4.4 (3.4-5.0) mmol/L Chloride 100 (98-107) mmol/L Carbon Dioxide 25 (22-30) mmol/L Anion Gap 10 (4-12) mmol/L BUN 42 H (7-17) mg/dL Creatinine 1.23 H (0.7-1.0) mg/dL Estim Creat Clear Calc 38 ml/min Estimated GFR 42 L (59 - ) Glucose 114 H (65-110) mg/dL Calcium 9.8 (8.4-10.2) mg/dL Total Bilirubin 0.4 (0.2-1.3) mg/dL AST 35 (14-36) U/L ALT 20 (6-35) U/L Alkaline Phosphatase 46 (38-126) U/L Total Protein 7.0 (6.3-8.2) g/dL Albumin 4.2 (3.5-5.1) g/dL Urine Color Yellow (Yellow) Urine Appearance Cloudy H (Clear) Urine pH 5.0 (5.0-9.0) Ur Specific [place] 1.013 (1.001-1.035) Urine Protein Negative (Negative) mg/dL Urine Glucose (UA) Negative (Negative) mg/dL Urine Ketones Negative (Negative) mg/dL Ur Blood (Man) 2+ H (Negative) Urine Nitrate Positive H (Negative) Urine Bilirubin Negative (Negative) Urine Urobilinogen 0.2 (<2.0) mg/dL Add Ur Microanalysis Reviewed Leukocyte Esterase Rfl 3+ H (Negative) JAMSHID/UL Urine RBC 21-50 H (0-2) /hpf Urine WBC 51-100 H (0-3) /hpf Ur Squamous Epith Cells None seen (Few) /hpf Urine Bacteria None seen /hpf Urine Casts 11-20 Urine Mucus Present /lpf Imaging Data Radiologist's impression: ITS Impressions Hip/Pelvis X-Ray 08/23/25 17:10 Impression: 1: Severe osteoarthritis of the hips with progression since prior examination. Possible avascular necrosis left femoral head. ADDENDUM: 07/17/25 [id number] Correction: Nondisplaced right superior and inferior pubic rami fractures are present. Lumbar Spine X-Ray 07/17/25 17:11 Impression: 1: Severe lumbar spondylosis. Limited study. 2: Wedge compression fracture of T12, age indeterminate. Discharge Plan Discharge Clinical Impression: Closed fracture of superior pubic ramus, Closed fracture of inferior pubic ramus Patient Disposition: Still a Patient Condition: Stable
[2025-07-17 17:21] LABS: Hematocrit 30.8 % (37.0-47.0); Hemoglobin 9.4 g/dL (12.0-15.0); Immature Granulocyte Percent A 0.7 % (0-0.5); Lymphocytes Absolute Auto 0.64 K/mm3 (0.9-3.2); Mean Corpuscular HGB Conc 30.5 g/dl (32-36); Mean Corpuscular Hemoglobin 30.4 pg (26-34); Mean Corpuscular Volume 99.7 fl (80-100); Nucleated Red Blood Cells Absolute Auto 0.000 K/mm3 (0.0-0.012); Nucleated Red Blood Cells Perc 0.0 % (0.0-0.2); Platelet Count Result 240 k/mm3 (150-375); Red Blood Count 3.09 M/mm3 (4.2-5.4); White Blood Count 13.7 K/mm3 (4.5-10.0)
[2025-07-17 17:30] LABS: INR 1.5; Prothrombin Time 17.6 Seconds (11.1-14.7)
[2025-07-17 17:31] LABS: Partial Thromboplastin Time 26.8 Seconds (22.3-36.8)
[2025-07-17 17:32] LABS: Alanine Aminotransferase 20 U/L (6-35); Albumin Level 4.2 g/dL (3.5-5.1); Alkaline Phosphatase 46 U/L (38-126); Anion Gap 10 mmol/L (4-12); Aspartate Amino Transferase 35 U/L (14-36); Bilirubin,Total 0.4 mg/dL (0.2-1.3); Blood Urea Nitrogen 42 mg/dL (7-17); Calcium 9.8 mg/dL (8.4-10.2); Carbon Dioxide 25 mmol/L (22-30); Chloride 100 mmol/L (98-107); Estimated CRCL calculation 38 ml/min; Estimated Glomerular Filt Rate 42; Glucose 114 mg/dL (65-110); Potassium 4.4 mmol/L (3.4-5.0); Sodium 135 mmol/L (137-145); Total Protein 7.0 g/dL (6.3-8.2)
[2025-07-17 17:57] LABS: Add Urine Microscopic? YES; Appearance Urine Cloudy (Clear); Glucose Urine UA Negative (Negative); Leukocyte Esterase Ur 3+ LEU/UL (Negative); Need Manual Microscopic Reviewed; Nitrate Urine Positive (Negative); Specific Grav Ur 1.013 (1.001-1.035)
--- NOTE | 2025-07-17 18:40 | P.HP_ITS ---
H&P: HPI History of Present Illness Date/Time: 07/17/25 18:40 Chief Complaint: Fall Narrative: 75-year-old female with past medical history of DVT, chronic anemia, COPD on home oxygen, chronic diastolic CHF, AFib, hypertension hyperlipidemia and hypothyroidism presents the hospital after fall. Patient states that she fell in the shower following enter but. She states she was unable to get up afterwards. She states that pain is a 10/10 and has limited range of motion due to acute pain.. Denies hitting her head or losing consciousness. Lab work shows leukocytosis at 13.7, hemoglobin 9.4 sodium of 135, BUN of 42 creatinine of 1.23 which is around baseline, UA is positive for nitrates and leukocyte esterase 3+ with 51-100 wbc's. X-ray lumbar spine with no acute process however there is a wedge compression fracture T12 undetermined age. Hip and pelvis x-ray show Nondisplaced right superior and inferior pubic rami fractures are present. Review of Systems Review of Systems: 12 systems were reviewed and are negativ e except for as per HPI. [facility] Past Medical History Medical History Chronic diarrhea Fecal occult blood test positive Chronic anticoagulation Chronic kidney disease, stage 3 Chronic anemia Deep venous thrombosis (2004) Degenerative joint disease Chronic respiratory failure with hypoxia, on home oxygen therapy On 2 to 4 L nasal cannula. Chronic diastolic congestive heart failure Echocardiogram in 06/2022 showed an EF 50 to 55% and diastolic dysfunction. Osteoporosis Vitamin D deficiency Paroxysmal atrial fibrillation Morbid obesity Interstitial lung disease Pre-diabetes Post menopausal syndrome Stress incontinence Shingles Hearing loss Rheumatoid arthritis Depression with anxiety Nonspecific interstitial pneumonitis Pulmonary embolism (2004) History of COVID-19 Obstructive sleep apnea on CPAP Hypothyroidism Hyperlipidemia Essential hypertension Diverticulosis Surgical History Surgical History History of cholecystectomy History of parathyroidectomy History of section History of arthroscopy of right knee History of tonsillectomy and adenoidectomy History of bilateral knee replacement History of cardiac catheterization Family History Family History Mother Hypertension Father Pulmonary emboli Rheumatoid arthritis Mother , at 91 due to old age Hypertension Father , at 58 due to PE Family history of rheumatoid arthritis Family history of pulmonary embolism Grandparent Cerebrovascular accident Other Family history of malignant neoplasm Social History Social History Social History: [facility] she lived with her daughter Katya in her house prior to going into the rehab facility. Originally from [place], [place]. Surrogate medical decision maker: Mae Cash, daughter. Code status: Full code. Smoking status: Never smoker Second hand tobacco smoke exposure: No Alcohol intake: never Substance use: never Substance use type: does not use Do You Feel Safe in your Home?: Yes Lack of Transportation: No Lack of Food: Never True Current Housing: I Have Housing Concerned About Future Housing: No Difficulty Paying Gas/Electric Bills: No Difficulty Paying for Meds: No Currently Unemployed: No Education: Grade School Difficulty w/ Childcare or Family Care: No Living arrangements: with family Additional living arrangements comments: LIVES WITH DAUGHTER Barbara BRITT Occupation/Education: retired Gender identity (if verbalized by the patient): Female Spiritual care concerns: No Agree to blood products: Yes Meds Home Medications and Allergies Home Medications ?Medication ?Instructions ?Recorded ?Confirmed ?Type Calcium 600-D3 Plus (mag-zinc) 1 tablet PO BID 2 07/17/25 History cholecalciferol (vitamin D3) 25 2,000 mcg PO DAILY 07/17/25 History mcg (1,000 unit) capsule cyanocobalamin (vitamin B-12) 1,000 mcg PO DAILY 07/2107/17/25 History 1,000 mcg tablet hydroxychloroquine 200 mg tablet 200 mg PO BID 2 07/17/25 History acetaminophen 325 mg capsule 650 mg PO Q6H PRN Pain 07/17/25 History (Tylenol) metoprolol succinate 50 mg 50 mg PO DAILY 03/22/23 History tablet,extended release 24 hr diltiazem HCl 300 mg 300 mg PO QAM #30 caps 04/1107/17/25 Rx capsule,extended release 24 hr metoprolol succinate 100 mg 100 mg PO DAILY 08/28/23 0 07/17/25 History tablet,extended release 24 hr cephalexin 250 mg capsule 250 mg PO DAILY 08/13/24 History prednisone 2.5 mg tablet 2.5 mg PO DAILY 08/13/24 History furosemide 80 mg tablet 80 mg PO DAILY 10/01/2406/26 History alendronate 70 mg tablet (Fosamax) 70 mg PO WEEKLY #12 tabs 12/14/24 07/17/25 Rx azathioprine 50 mg tablet 50 mg PO DAILY@0800 02/18/25 07/17/25 History magnesium 250 mg tablet 250 mg PO DAILY #90 tabs 08/1907/17/25 Rx tramadol 50 mg tablet 50 mg PO Q8H PRN pain #90 ta bs 04/16/25 07/17/25 Rx potassium chloride 20 mEq See Rx Instructions .Route 0 05/10/25 07/17/25 Rx tablet,extended release(part/cryst) .COMPLEX #180 tabs pravastatin 80 mg tablet See Rx Instructions .Route 0 05/17/25 07/17/25 Rx .COMPLEX #90 tabs pantoprazole 40 mg tablet,delayed See Rx Instructions .Route 06/11/25 07/17/25 Rx release .COMPLEX #90 tabs apixaban 5 mg tablet (Eliquis) 5 mg PO BID 3 months #1 80 tabs 07/06/25 07/17/25 Rx levothyroxine 112 mcg tablet See Rx Instructions .Rout e 07/16/25 07/17/25 Rx .COMPLEX #90 tabs colestipol 1 gram tablet 1 g PO HS 07/17/25 07/17/25 History duloxetine 20 mg capsule,delayed 40 mg PO DAILY 07/17/25 History release furosemide 40 mg tablet 40 mg PO DAILY 07/17/2506/26 History Allergies Allergy/AdvReac Type Severity Reaction Status Date / Time No Known Allergies Allergy Verified 07/17/25 14:56 Vital Signs Vital Signs - 24 hr 07/17/25 14:57 07/17/25 15:17 07/17/25 15:46 Temperature 98.1 F 98.1 F Pulse Rate 71 81 82 Respiratory Rate 17 17 19 Blood Pressure 102/74 118/71 122/66 Pulse Oximetry 98 94 92 Oxygen Delivery Nasal Cannula Oxygen Flow Rate 4 07/17/25 17:02 07/17/25 17:30 07/17/25 17:42 Temperature Pulse Rate 84 95 90 Respiratory Rate 23 H 24 H 22 H Blood Pressure 95/51 L 101/72 118/80 Pulse Oximetry 95 97 98 Oxygen Delivery Oxygen Flow Rate 07/17/25 17:51 07/17/25 18:04 Temperature 97.9 F Pulse Rate 89 Respiratory Rate 24 H Blood Pressure 116/77 Pulse Oximetry 98 96 Oxygen Delivery Nasal Cannula Oxygen Flow Rate 4 Exam Narrative: General: Chronically of HEENT: normocephalic, atraumatic. Mucous membranes moist. EOMI, PERRLA, bilateral sclera anicteric, no conjunctival injection. Neck supple without JVD, lymphadenopathy, or bruit. Respiratory: clear to ascultation bilaterally. No rales/rhonic/wheezes. Cardiovascular: Regular rate and rhythm, normal S1-S2 upon ascultation. No murmurs, rubs, or clicks. PMI is nondisplaced, capillary refill less than 3 second. Abdomen: Soft, round, no pulsatile masses, nondistended and nontender. No rebound, no guarding. No CVA tenderness, no hepatosplenomegaly. Bowel sounds pr esent to all four quadrants. No high pitch or tinkling sounds, resonant to percussion. Extremities: No cyanosis, clubbing, or edema present. Pulses are palpable 2/2. Lower extremities range of motion reduced due to acute pain Neuro: Alert and orientated x 4. PERRLA. Cranial nerves 2-12 intact without focal deficit. Skin: Warm, dry, and intact, without rash, erythema, or lesion. Psych: pleasant, cooperative, normal speech, normal affect, no hallucinations, no dysarthia For L nasal cannula chronic H&P: Results Labs Labs: Short CBC 07/17/25 Range/Units 17:13 WBC 13.7 H (4.5-10.0) K/mm3 Hgb 9.4 L (12.0-15.0) g/dL Hct 30.8 L (37.0-47.0) % Plt Count 240 (150-375) k/mm3 BMP 07/17/25 17:13 Sodium 135 L Potassium 4.4 Chloride 100 Carbon Dioxide 25 BUN 42 H Creatinine 1.23 H Glucose 114 H Calcium 9.8 Liver Function 07/17/25 Range/Units 17:13 Total Bilirubin 0.4 (0.2-1.3) mg/dL AST 35 (14-36) U/L ALT 20 (6-35) U/L Alkaline Phosphatase 46 (38-126) U/L Albumin 4.2 (3.5-5.1) g/dL Urine 07/17/25 Range/Units 17:41 Urine Color Yellow (Yellow) Urine Appearance Cloudy H (Clear) Urine pH 5.0 (5.0-9.0) Ur Specific [place] 1.013 (1.001-1.035) Urine Protein Negative (Negative) mg/dL Urine Glucose (UA) Negative (Negative) mg/dL Assessment and Plan Assessment and plan (1) Fall: Code(s): W19.XXXA - Unspecified fall, initial encounter Status: Acute Assessment and Plan: Fall precautions PT OT evaluate and treat (2) Acute UTI: Code(s): N39.0 - Urinary tract infection, site not specified Status: Acute Assessment and Plan: IV Rocephin Culture and sensitivity pending (3) Closed fracture of superior pubic ramus: Code(s): S32.519A - Fracture of superior rim of unspecified pubis, initial encounter for closed fracture Status: Acute Assessment and Plan: Orthopedics consulted Pain control and muscle relaxers Bowel protocol PT OT (4) Closed fracture of inferior pubic ramus: Code(s): S32.599A - Other specified fracture of unspecified pubis, initial encounter for closed fracture Status: Acute Assessment and Plan: Plan as above (5) Congestive heart failure: Code(s): I50.9 - Heart failure, unspecified Status: Chronic Assessment and Plan: Continue home Lasix 120 mg (6) Atrial fibrillation with RVR: Code(s): I48.91 - Unspecified atrial fibrillation Status: Acute Assessment and Plan: Continue Eliquis and diltiazem (7) DVT (deep venous thrombosis): Code(s): I82.409 - Acute embolism and thrombosis of unspecified deep veins of unspecified lower extremity Status: Acute Assessment and Plan: Continue Eliquis (8) Rheumatoid arthritis: Code(s): M06.9 - Rheumatoid arthritis, unspecified Status: Acute Assessment and Plan: Continue Imuran, prednisone and hydroxchloroquine (9) Hypothyroidism: Code(s): E03.9 - Hypothyroidism, unspecified Status: Acute Assessment and Plan: Continue levothyroxine Quality VTE Prophylaxis VTE prophylaxis: mechanical ordered and pharmacologic ordered Hospitalist MIPS Advance Care Plan I have confirmed that the patient's Advanced Care Plan is present, code status is documented, or surrogate decision maker is listed in patient medical record.: Yes Medication Reconciliation I have utilized all available resources to obtain, update and review the patients current medications (includes all prescriptions, OTC, herbals, cannabis, and nutritional supplements).: Yes
[2025-07-17] MEDS: MORPHINE SULFATE (*CRX) 2 MG/ML INJ IV PUSH (20:56)
[2025-07-17] MEDS: cefTRIAXone 1 GM in SODIUM CHLORIDE 0.9% IV 50 ML 100 ML IVPB (21:00)
[2025-07-17] MEDS: PRAVASTATIN SODIUM 20 MG TABLET BY MOUTH (22:35)
[2025-07-17] MEDS: COLESTIPOL HCL 1 GM TABLET PO (22:35)
[2025-07-17] MEDS: APIXABAN 5 MG TABLET PO (22:35)
[2025-07-17] MEDS: KETOROLAC 15 MG/ML VIAL (*BKC) IV PUSH (22:36)
[2025-07-18] VITALS (9 sets, daily range): BP systolic 115–123; BP diastolic 50–63; PULSE 71–87; RESP 18–20; TEMP 36.3–36.4; O2SAT 97–100
--- NOTE | 2025-07-18 01:13 | ADMGEN ---
This patient, Ayanna Cash, was admitted to Medical Room 254-01 after having a fall. Patient/family oriented to hospital policies and general routines including ID bracelet, bed and alarms, visiting hours, pain management, procedures, bathroom and other care routines, personal items, smoking policy, room service/diet, and visiting hours. Information on how to activate the Rapid Response Team has been discussed. Patient/Family are encouraged to report perceived risks to care and to ask questions if they do not understand what they are told or what they should do.
[2025-07-18] MEDS: KETOROLAC 15 MG/ML VIAL (*BKC) IV PUSH (04:12)
[2025-07-18 04:43] LABS: Hematocrit 28.7 % (37.0-47.0); Hemoglobin 8.8 g/dL (12.0-15.0); Immature Granulocyte Percent A 0.4 % (0-0.5); Lymphocytes Absolute Auto 1.11 K/mm3 (0.9-3.2); Mean Corpuscular HGB Conc 30.7 g/dl (32-36); Mean Corpuscular Hemoglobin 30.6 pg (26-34); Mean Corpuscular Volume 99.7 fl (80-100); Nucleated Red Blood Cells Absolute Auto 0.000 K/mm3 (0.0-0.012); Nucleated Red Blood Cells Perc 0.0 % (0.0-0.2); Platelet Count Result 188 k/mm3 (150-375); Red Blood Count 2.88 M/mm3 (4.2-5.4); White Blood Count 9.7 K/mm3 (4.5-10.0)
[2025-07-18 05:08] LABS: Anion Gap 9 mmol/L (4-12); Blood Urea Nitrogen 43 mg/dL (7-17); Calcium 9.8 mg/dL (8.4-10.2); Carbon Dioxide 28 mmol/L (22-30); Chloride 100 mmol/L (98-107); Estimated CRCL calculation 37 ml/min; Estimated Glomerular Filt Rate 41; Glucose 87 mg/dL (65-110); Potassium 3.9 mmol/L (3.4-5.0); Sodium 137 mmol/L (137-145)
[2025-07-18] MEDS: HYDROXYCHLOROQUINE SULFATE 200 MG TABLET PO ×2 (08:34→17:13)
[2025-07-18] MEDS: METOPROLOL SUCCINATE EXT REL 100 MG TABCR PO (08:35)
[2025-07-18] MEDS: dilTIAZem HCL CD 300 MG CAP.24HR PO (08:35)
[2025-07-18] MEDS: APIXABAN 5 MG TABLET PO ×2 (08:35→20:19)
[2025-07-18] MEDS: FUROSEMIDE 40 MG TABLET PO (08:35)
[2025-07-18] MEDS: FUROSEMIDE 80 MG TABLET PO (08:35)
--- NOTE | 2025-07-18 10:01 | P.PNIM_ITS ---
Progress Note: A&P Assessment and Plan (1) Fall: Code(s): W19.XXXA - Unspecified fall, initial encounter Status: Acute Assessment and Plan: Fall precautions PT OT evaluate and treat once ortho consult is done (2) Acute UTI: Code(s): N39.0 - Urinary tract infection, site not specified Status: Acute Assessment and Plan: IV Rocephin Culture and sensitivity pending (3) Closed fracture of superior pubic ramus: Code(s): S32.519A - Fracture of superior rim of unspecified pubis, initial encounter for closed fracture Status: Acute Assessment and Plan: Orthopedics consulted Pain control and muscle relaxers Bowel protocol PT/OT pain is controlled-continue hydrocodone/robaxin/morphine will stop toradol for now ortho recommendatiosn reviewed: WBAT with Physical Therapy. Follow up with my office 1 week after discharge. [phone] (4) Closed fracture of inferior pubic ramus: Code(s): S32.599A - Other specified fracture of unspecified pubis, initial encounter for closed fracture Status: Acute Assessment and Plan: Plan as above (5) Congestive heart failure: Code(s): I50.9 - Heart failure, unspecified Status: Chronic Assessment and Plan: Continue home Lasix 120 mg (6) Atrial fibrillation with RVR: Code(s): I48.91 - Unspecified atrial fibrillation Status: Acute Assessment and Plan: Continue Eliquis and diltiazem take 150 mg of metoprolol she is following with cardiology and seems to be alert enough to know exactly what she takes (7) DVT (deep venous thrombosis): Code(s): I82.409 - Acute embolism and thrombosis of unspecified deep veins of unspecified lower extremity Status: Acute Assessment and Plan: Continue Eliquis (8) Rheumatoid arthritis: Code(s): M06.9 - Rheumatoid arthritis, unspecified Status: Acute Assessment and Plan: Continue Imuran, prednisone and hydroxchloroquine (9) Hypothyroidism: Code(s): E03.9 - Hypothyroidism, unspecified Status: Acute Assessment and Plan: Continue levothyroxine Time Spent With Patient Time with patient: 25 - 35 minutes Subjective Date/time seen: 07/18/25 10:01 Interval history: 75-year-old female with past medical history of DVT, chronic anemia, COPD on home oxygen, chronic diastolic CHF, AFib, hypertension hyperlipidemia and hypothyroidism presents the hospital after fall. Patient states that she fell in the shower following enter but. She states she was unable to get up afterwards. She states that pain is a 10/10 and has limited range of motion due to acute pain.. Denies hitting her head or losing consciousness. Lab work shows leukocytosis at 13.7, hemoglobin 9.4 sodium of 135, BUN of 42 creatinine of 1.23 which is around baseline, UA is positive for nitrates and leukocyte esterase 3+ with 51-100 wbc's. X-ray lumbar spine with no acute process however there is a wedge compression fracture T12 undetermined age. Hip and pelvis x-ray show Nondisplaced right superior and inferior pubic rami fractures are present. Pt is seen and examined. Ortho consulted. Pt states that she is taking metoprolol 150 mg daily- only 100 was restarted. takes it for afib. pain is well controlled, no nausea Review of Systems Review of Systems: 12 systems were reviewed and are negativ e except for as per HPI. Exam Narrative: General: resting in bed HEENT: normocephalic, atraumatic. Mucous membranes moist. EOMI, PERRLA, bilateral sclera anicteric, no conjunctival injection. Neck supple without JVD, lymphadenopathy, or bruit. Respiratory: clear to ascultation bilaterally. No rales/rhonic/wheezes. Cardiovascular: Regular rate and rhythm, normal S1-S2 upon ascultation. No murmurs, rubs, or clicks. PMI is nondisplaced, capillary refill less than 3 second. Abdomen: Soft, round, no pulsatile masses, nondistended and nontender. No rebound, no guarding. No CVA tenderness, no hepatosplenomegaly. Bowel sounds present to all four quadrants. No high pitch or tinkling sounds, resonant to percussion. Extremities: No cyanosis, clubbing, or edema present. Pulses are palpable 2/2. Lower extremities range of motion reduced due to acute pain Neuro: Alert and orientated x 4. PERRLA. Cranial nerves 2-12 intact without focal deficit. Skin: Warm, dry, and intact, without rash, erythema, or lesion. Psych: pleasant, cooperative, normal speech, normal affect, no hallucinations, no dysarthia For L nasal cannula chronic Const: General: comfortable Objective Data Vital Signs Vital Signs: Vital Signs - 24 hr 07/17/25 14:57 07/17/25 15:17 07/17/25 15:46 Temperature 98.1 F 98.1 F Pulse Rate 71 81 82 Respiratory Rate 17 17 19 Blood Pressure 102/74 118/71 122/66 Pulse Oximetry 98 94 92 Oxygen Delivery Nasal Cannula Oxygen Flow Rate 4 07/17/25 17:02 07/17/25 17:30 07/17/25 17:42 Temperature Pulse Rate 84 95 90 Respiratory Rate 23 H 24 H 22 H Blood Pressure 95/51 L 101/72 118/80 Pulse Oximetry 95 97 98 Oxygen Delivery Oxygen Flow Rate 07/17/25 17:51 07/17/25 18:04 07/17/25 18:40 Temperature 97.9 F 97.7 F Pulse Rate 89 90 Respiratory Rate 24 H 23 H Blood Pressure 116/77 120/69 Pulse Oximetry 98 96 96 Oxygen Delivery Nasal Cannula Oxygen Flow Rate 4 07/17/25 21:16 07/18/25 06:00 07/18/25 08:34 Temperature 98.4 F 97.6 F Pulse Rate 103 H 71 Respiratory Rate 20 18 Blood Pressure 125/77 120/63 Pulse Oximetry 100 100 100 Oxygen Delivery Nasal Cannula Oxygen Flow Rate 3 07/18/25 08:35 07/18/25 08:38 Temperature Pulse Rate 87 87 Respiratory Rate Blood Pressure 123/50 L Pulse Oximetry 100 Oxygen Delivery Oxygen Flow Rate Intake/Output Intake/Output: Intake & Output 07/15/25 07/16/25 07/17/25 07/18/25 23:59 23:59 23:59 23:59 Intake Total 0 Output Total 475 Balance -475 Meds/Results Medications: Active Medications Generic Name Dose Route Start Last Admin Trade Name Freq PRN Reason Stop Dose Admin Acetaminophen 650 mg 07/17/25 19:02 Acetaminophen 325 Mg Tablet PO Q4H PRN Mild Pain (1-3) or Fever Hydrocodone Bitart/Acetaminophen 1 tab 07/17/25 17:43 07/17/25 22:34 Hydrocodone/Acetaminophen (*Crx) 5-325 Mg Tablet PO 1 tab Q4H PRN Administration Pain Rated 4-6 Apixaban 5 mg 07/17/25 21:45 07/18/25 08:35 Apixaban 5 Mg Tablet PO 5 mg Q12HR DELFIN Administration Azathioprine 50 mg 07/18/25 08:00 07/18/25 08:33 Azathioprine 50 Mg Tablet PO 50 mg DAILY@0800 DELFIN Administration Colestipol HCl 1 gm 07/17/25 21:45 07/17/25 22:35 Colestipol Hcl 1 Gm Tablet PO 1 gm HS DELFIN Administration Diltiazem HCl 300 mg 07/18/25 09:00 07/18/25 08:35 Diltiazem Hcl Cd 300 Mg Cap.24hr PO 300 mg QAM DELFIN Administration Docusate Sodium 100 mg 07/17/25 21:00 07/18/25 08:35 Docusate Sodium 100 Mg Capsule PO Not Given Q12HR DELFIN Duloxetine HCl 40 mg 07/18/25 09:00 07/18/25 08:34 Duloxetine Hcl 20 Mg Capsule.Dr PO 40 mg DAILY DELFIN Administration Furosemide 80 mg 07/18/25 09:00 07/18/25 08:35 Furosemide 80 Mg Tablet PO 80 mg DAILY DELFIN Administration Furosemide 40 mg 07/18/25 09:00 07/18/25 08:35 Furosemide 40 Mg Tablet PO 40 mg DAILY DELFIN Administration Hydroxychloroquine Sulfate 200 mg 07/18/25 08:00 07/18/25 08:34 Hydroxychloroquine Sulfate 200 Mg Tablet PO 200 mg BIDWM DELFIN Administration Ceftriaxone Sodium 1 gm/ 50 mls @ 100 mls/hr 07/17/25 19:00 07/17/25 21:00 Sodium Chloride IVPB 100 mls/hr Q24H DELFIN Administration Ketorolac Tromethamine 15 mg 07/17/25 22:00 07/18/25 04:12 Ketorolac 15 Mg/Ml Vial (*Bkc) IV PUSH 07/22/25 16:01 15 mg Q6H DELFIN Administration Methocarbamol 500 mg 07/17/25 21:00 07/18/25 08:34 Methocarbamol 500 Mg Tablet PO 500 mg QID DELFIN Administration Metoprolol Succinate 100 mg 07/18/25 09:00 07/18/25 08:35 Metoprolol Succinate Ext Rel 100 Mg Tabcr PO 100 mg DAILY DELFIN Administration Morphine Sulfate 2 mg 07/17/25 17:43 07/17/25 20:56 Morphine Sulfate (*Crx) 2 Mg/Ml Inj IV PUSH 2 mg Q2H PRN Administration Pain Rated 7-10 Ondansetron HCl 4 mg 07/17/25 17:43 Ondansetron Inj 4 Mg/2 Ml Vial IV PUSH Q4H PRN Nausea Pravastatin Sodium 20 mg 07/17/25 21:30 07/17/25 22:35 Pravastatin Sodium 20 Mg Tablet BY MOUTH 20 mg HS DELFIN Administration Prednisone 2.5 mg 07/18/25 08:00 07/18/25 08:33 Prednisone 2.5 Mg Tablet PO 2.5 mg DAILY@0800 DELFIN Administration Radiology Results: ITS Impressions Hip/Pelvis X-Ray 07/17/25 17:10 Impression: 1: Severe osteoarthritis of the hips with progression since prior examination. Possible avascular necrosis left femoral head. ADDENDUM: 07/17/25 [id number] Correction: Nondisplaced right superior and inferior pubic rami fractures are present. Lumbar Spine X-Ray 07/17/25 17:11 Impression: 1: Severe lumbar spondylosis. Limited study. 2: Wedge compression fracture of T12, age indeterminate. Labs Labs: Laboratory Results - last 24 hr 07/17/25 07/17/25 07/18/25 17:13 17:41 04:25 WBC 13.7 H 9.7 RBC 3.09 L 2.88 L Hgb 9.4 L 8.8 L Hct 30.8 L 28.7 L MCV 99.7 99.7 MCH 30.4 30.6 MCHC 30.5 L 30.7 L RDW 14.2 13.9 Plt Count 240 188 MPV 9.5 9.6 Immature Gran % (Auto) 0.7 H 0.4 Neut % (Auto) 87.2 H 78.7 H Lymph % (Auto) 4.7 L 11.4 L [place] % (Auto) 7.1 9.2 H Eos % (Auto) 0.0 0.0 Baso % (Auto) 0.3 0.3 Lymph # (Auto) 0.64 L 1.11 [place] # (Auto) 1.0 H 0.9 H Eos # (Auto) 0.0 0.0 Baso # (Auto) 0.0 0.0 Abs Immat Gran (auto) 0.09 H 0.04 H Absolute Neuts (auto) 12.0 H 7.6 H Absolute Nucleated RBC 0.000 0.000 Nucleated RBC % 0.0 0.0 PT 17.6 H INR 1.5 APTT 26.8 Sodium 135 L 137 Potassium 4.4 3.9 Chloride 100 100 Carbon Dioxide 25 28 Anion Gap 10 9 BUN 42 H 43 H Creatinine 1.23 H 1.27 H Estim Creat Clear Calc 38 37 Estimated GFR 42 L 41 L Glucose 114 H 87 Calcium 9.8 9.8 Total Bilirubin 0.4 AST 35 ALT 20 Alkaline Phosphatase 46 Total Protein 7.0 Albumin 4.2 Urine Color Yellow Urine Appearance Cloudy H Urine pH 5.0 Ur Specific [place] 1.013 Urine Protein Negative Urine Glucose (UA) Negative Urine Ketones Negative Ur Blood (Man) 2+ H Urine Nitrate Positive H Urine Bilirubin Negative Urine Urobilinogen 0.2 Add Ur Microanalysis Reviewed Leukocyte Esterase Rfl 3+ H Urine RBC 21-50 H Urine WBC 51-100 H Ur Squamous Epith Cells None seen Urine Bacteria None seen Urine Casts 11-20 Urine Mucus Present Quality VTE Prophylaxis VTE prophylaxis: mechanical ordered and pharmacologic ordered
--- NOTE | 2025-07-18 10:03 | P.CONOP_ITS ---
Assessment and Plan Assessment and plan (1) T12 compression fracture: Code(s): S22.080A - Wedge compression fracture of T11-T12 vertebra, initial encounter for closed fracture Status: Acute Plan The patient is a 75-year-old female presents to the emergency department of with a right pelvic fracture superior inferior pubic rami fracture as well as a T12 compression fracture after falling in her bathroom yesterday. Upon entering shower, she slipped and tried to grab on to hand rails. Failed to do so and landed on to her Right Hip. - lives at home alone in [facility] - children stop by to check on her on a regular basis. - originally from [place] (still has [place] accent) WBAT with Physical Therapy. Follow up with my office 1 week after discharge. [phone] History of Present Illness HPI Consult date: 07/18/25 Chief complaint: T12 Compression fracture and pelvic fx Narrative: The patient is a 75-year-old female presents to the emergency department of with a right pelvic fracture superior inferior pubic rami fracture as well as a T12 compression fracture after falling in her bathroom yesterday. Upon enering shower, she slipped and tried to grab on to hand rails. Failed to do so and landed on to her Right Hip. [facility] Past Medical History Medical History (Reviewed 07/06/25 @ 07:29 by Aiden Gonzalez [facility]) Chronic diarrhea Fecal occult blood test positive Chronic anticoagulation Chronic kidney disease, stage 3 Chronic anemia Deep venous thrombosis (2004) Degenerative joint disease Chronic respiratory failure with hypoxia, on home oxygen therapy On 2 to 4 L nasal cannula. Chronic diastolic congestive heart failure Echocardiogram in 06/2022 showed an EF 50 to 55% and diastolic dysfunction. Osteoporosis Vitamin D deficiency Paroxysmal atrial fibrillation Morbid obesity Interstitial lung disease Pre-diabetes Post menopausal syndrome Stress incontinence Shingles Hearing loss Rheumatoid arthritis Depression with anxiety Nonspecific interstitial pneumonitis Pulmonary embolism (2004) History of COVID-19 Obstructive sleep apnea on CPAP Hypothyroidism Hyperlipidemia Essential hypertension Diverticulosis Surgical History Surgical History (Reviewed 07/06/25 @ 07:29 by Aiden Gonzalez [facility]) History of cholecystectomy History of parathyroidectomy History of section History of arthroscopy of right knee History of tonsillectomy and adenoidectomy History of bilateral knee replacement History of cardiac catheterization Family History Family History (Reviewed 07/06/25 @ 07:29 by Aiden Gonzalez [facility]) Mother Hypertension Father Pulmonary emboli Rheumatoid arthritis Mother , at 91 due to old age Hypertension Father , at 58 due to PE Family history of rheumatoid arthritis Family history of pulmonary embolism Grandparent Cerebrovascular accident Other Family history of malignant neoplasm Social History Social History (Reviewed 07/06/25 @ 07:29 by Aiden Gonzalez [facility]) Social History: [facility] she lived with her daughter Katya in her house prior to going into the rehab facility. Originally [place], [place]. Surrogate medical decision maker: Mae Cash, daughter. Code status: Full code. Smoking status: Never smoker Second hand tobacco smoke exposure: Yes Alcohol intake: never Substance use: never Substance use type: does not use Do You Feel Safe in your Home?: Yes Lack of Transportation: No Lack of Food: Never True Current Housing: I Have Housing Concerned About Future Housing: No Difficulty Paying Gas/Electric Bills: No Difficulty Paying for Meds: No Currently Unemployed: No Education: Decline to Answer Difficulty w/ Childcare or Family Care: No Living arrangements: with family Additional living arrangements comments: LIVES WITH PAOLA BRITT Occupation/Education: retired Gender identity (if verbalized by the patient): Female Spiritual care concerns: No Agree to blood products: Yes Meds Home Medications and Allergies Home Medications ?Medication ?Instructions ?Recorded ?Confirmed ?Type Calcium 600-D3 Plus (mag-zinc) 1 tablet PO BID 2 07/17/25 History cholecalciferol (vitamin D3) 25 2,000 mcg PO DAILY 07/17/25 History mcg (1,000 unit) capsule cyanocobalamin (vitamin B-12) 1,000 mcg PO DAILY 07/2107/17/25 History 1,000 mcg tablet hydroxychloroquine 200 mg tablet 200 mg PO BID 2 07/17/25 History acetaminophen 325 mg capsule 650 mg PO Q6H PRN Pain 07/17/25 History (Tylenol) metoprolol succinate 50 mg 50 mg PO DAILY 03/22/23 History tablet,extended release 24 hr diltiazem HCl 300 mg 300 mg PO QAM #30 caps 04/1107/17/25 Rx capsule,extended release 24 hr metoprolol succinate 100 mg 100 mg PO DAILY 08/28/23 0 07/17/25 History tablet,extended release 24 hr cephalexin 250 mg capsule 250 mg PO DAILY 08/13/24 History prednisone 2.5 mg tablet 2.5 mg PO DAILY 08/13/24 History furosemide 80 mg tablet 80 mg PO DAILY 10/01/2406/26 History alendronate 70 mg tablet (Fosamax) 70 mg PO WEEKLY #12 tabs 12/14/24 07/17/25 Rx azathioprine 50 mg tablet 50 mg PO DAILY@0800 02/18/25 07/17/25 History magnesium 250 mg tablet 250 mg PO DAILY #90 tabs 08/1907/17/25 Rx tramadol 50 mg tablet 50 mg PO Q8H PRN pain #90 ta bs 04/16/25 07/17/25 Rx potassium chloride 20 mEq See Rx Instructions .Route 0 05/10/25 07/17/25 Rx tablet,extended release(part/cryst) .COMPLEX #180 tabs pravastatin 80 mg tablet See Rx Instructions .Route 0 05/17/25 07/17/25 Rx .COMPLEX #90 tabs pantoprazole 40 mg tablet,delayed See Rx Instructions .Route 06/11/25 07/17/25 Rx release .COMPLEX #90 tabs apixaban 5 mg tablet (Eliquis) 5 mg PO BID 3 months #1 80 tabs 07/06/25 07/17/25 Rx levothyroxine 112 mcg tablet See Rx Instructions .Rout e 07/16/25 07/17/25 Rx .COMPLEX #90 tabs colestipol 1 gram tablet 1 g PO HS 07/17/25 07/17/25 History duloxetine 20 mg capsule,delayed 40 mg PO DAILY 07/17/25 History release furosemide 40 mg tablet 40 mg PO DAILY 07/17/2506/26 History Allergies Allergy/AdvReac Type Severity Reaction Status Date / Time No Known Allergies Allergy Verified 07/17/25 14:56 Vital Signs Vital Signs - 24 hr 07/17/25 14:57 07/17/25 15:17 07/17/25 15:46 Temperature 36.7 C 36.7 C Pulse Rate 71 81 82 Respiratory Rate 17 17 19 Blood Pressure 102/74 118/71 122/66 Pulse Oximetry 98 94 92 Oxygen Delivery Nasal Cannula Oxygen Flow Rate 4 07/17/25 17:02 07/17/25 17:30 07/17/25 17:42 Temperature Pulse Rate 84 95 90 Respiratory Rate 23 H 24 H 22 H Blood Pressure 95/51 L 101/72 118/80 Pulse Oximetry 95 97 98 Oxygen Delivery Oxygen Flow Rate 07/17/25 17:51 07/17/25 18:04 07/17/25 18:40 Temperature 36.6 C 36.5 C Pulse Rate 89 90 Respiratory Rate 24 H 23 H Blood Pressure 116/77 120/69 Pulse Oximetry 98 96 96 Oxygen Delivery Nasal Cannula Oxygen Flow Rate 4 07/17/25 21:16 07/18/25 06:00 07/18/25 08:34 Temperature 36.9 C 36.4 C Pulse Rate 103 H 71 Respiratory Rate 20 18 Blood Pressure 125/77 120/63 Pulse Oximetry 100 100 100 Oxygen Delivery Nasal Cannula Oxygen Flow Rate 3 07/18/25 08:35 07/18/25 08:38 Temperature Pulse Rate 87 87 Respiratory Rate Blood Pressure 123/50 L Pulse Oximetry 100 Oxygen Delivery Oxygen Flow Rate Exam 2 Narrative: Right HIp with pain on passive range of motion, moderate tenderness to palpation to the spinous process of t12. Bilateral knee incisions c/d/i with no swelling tenderness or deformity of both knees or of both ankles. Intact sensation and DP pulse to both extremities. No swelling tenderness or deformity to bilateral upper extremities. Const: General: cooperative, comfortable, no acute distress, well developed, alert and awake Nutritional Appearance: overweight O rientation/consciousness: patient oriented x3 Results Labs 07/18/25 04:25 07/18/25 04:25 Labs: Abnormal lab results 07/17/25 07/17/25 07/18/25 Range/Units 17:13 17:41 04:25 WBC 13.7 H (4.5-10.0) K/mm3 RBC 3.09 L 2.88 L (4.2-5.4) M/mm3 Hgb 9.4 L 8.8 L (12.0-15.0) g/dL Hct 30.8 L 28.7 L (37.0-47.0) % MCHC 30.5 L 30.7 L (32-36) g/dl Immature Gran % (Auto) 0.7 H (0-0.5) % Neut % (Auto) 87.2 H 78.7 H (45.5-73.1) % Lymph % (Auto) 4.7 L 11.4 L (18.3-44.2) % [place] % (Auto) 9.2 H (2.6-8.5) % Lymph # (Auto) 0.64 L (0.9-3.2) K/mm3 [place] # (Auto) 1.0 H 0.9 H (0.1-0.6) K/mm3 Abs Immat Gran (auto) 0.09 H 0.04 H (0.00-0.031) K/mm3 Absolute Neuts (auto) 12.0 H 7.6 H (1.3-6.7) K/mm3 PT 17.6 H (11.1-14.7) Seconds Sodium 135 L (137-145) mmol/L BUN 42 H 43 H (7-17) mg/dL Creatinine 1.23 H 1.27 H (0.7-1.0) mg/dL Estimated GFR 42 L 41 L (59 - ) Glucose 114 H (65-110) mg/dL Urine Appearance Cloudy H (Clear) Ur Blood (Man) 2+ H (Negative) Urine Nitrate Positive H (Negative) Leukocyte Esterase Rfl 3+ H (Negative) JAMSHID/UL Urine RBC 21-50 H (0-2) /hpf Urine WBC 51-100 H (0-3) /hpf H & H 07/17/25 07/18/25 Range/Units 17:13 04:25 Hgb 9.4 L 8.8 L (12.0-15.0) g/dL Hct 30.8 L 28.7 L (37.0-47.0) % Coagulation 07/17/25 Range/Units 17:13 INR 1.5 All other labs normal.
[2025-07-18] MEDS: HYDROcodone/acetaminophen (*CRX) 5-325 MG TABLET 1 TAB PO ×2 (10:46→17:13)
[2025-07-18] MEDS: cefTRIAXone 1 GM in SODIUM CHLORIDE 0.9% IV 50 ML 100 ML IVPB (18:42)
[2025-07-18] MEDS: DOCUSATE SODIUM 100 MG CAPSULE PO (20:19)
[2025-07-18] MEDS: COLESTIPOL HCL 1 GM TABLET PO (20:19)
[2025-07-18] MEDS: PRAVASTATIN SODIUM 20 MG TABLET BY MOUTH (20:20)
[2025-07-19] VITALS (10 sets, daily range): BP systolic 117–135; BP diastolic 50–69; PULSE 53–90; RESP 16–20; TEMP 35.9–36.4; O2SAT 94–100
[2025-07-19] MEDS: HYDROcodone/acetaminophen (*CRX) 5-325 MG TABLET 1 TAB PO ×5 (01:21→21:55)
[2025-07-19] MEDS: ACETAMINOPHEN 325 MG TABLET 650 MG PO ×2 (03:59→18:47)
[2025-07-19] MEDS: HYDROXYCHLOROQUINE SULFATE 200 MG TABLET PO ×2 (08:07→17:50)
[2025-07-19] MEDS: METOPROLOL SUCCINATE EXT REL 50 MG TABCR PO (08:08)
[2025-07-19] MEDS: FUROSEMIDE 40 MG TABLET PO (08:08)
[2025-07-19] MEDS: METOPROLOL SUCCINATE EXT REL 100 MG TABCR PO (08:08)
[2025-07-19] MEDS: dilTIAZem HCL CD 300 MG CAP.24HR PO (08:08)
[2025-07-19] MEDS: FUROSEMIDE 80 MG TABLET PO (08:09)
[2025-07-19] MEDS: APIXABAN 5 MG TABLET PO ×2 (08:09→20:23)
--- NOTE | 2025-07-19 08:38 | P.PNIM_ITS ---
Progress Note: A&P Assessment and Plan (1) Chronic respiratory failure with hypoxia, on home oxygen therapy: Code(s): J96.11 - Chronic respiratory failure with hypoxia; Z99.81 - Dependence on supplemental oxygen Status: Acute Assessment and Plan: Chronic, remains on home oxygen of 2-4 L NC Denies shortness of breath (2) Fall: Code(s): W19.XXXA - Unspecified fall, initial encounter Status: Acute Assessment and Plan: Slipped in the shower landing on right hip, unable to stand afterward Denies head strike and loss of consciousness Denies dizziness/lightheadedness prior to fall Hip/pelvis XR: Severe osteoarthritis of the hips with progression since prior examination. Possible avascular necrosis left femoral head. Lumbar XR: Severe lumbar spondylosis with wedge compression fracture of T12, age indeterminant Fall precautions PT OT evaluate and treat WBAT per ortho See plan below (3) Acute UTI: Code(s): N39.0 - Urinary tract infection, site not specified Status: Acute Assessment and Plan: - Chronic suprapubic catheter for urinary retention - UA: cloudy appearance with 2+ blood, positive nitrates, 3+ leukocytes, 21-50 RBC, 51-100 WBC, no bacteria or squamous cells seen. - UC obtained on 07/17: pending - previous micro reviewed 03/26/24: MRSA resistant to oxacillin - started on Rocephin on 07/17 (4) Closed fracture of superior pubic ramus: Code(s): S32.519A - Fracture of superior rim of unspecified pubis, initial encounter for closed fracture Status: Acute Assessment and Plan: Hip/pelvis XR: Nondisplaced right superior and inferior pubic rami fractures are present. Lumbar XR: Severe lumbar spondylosis with wedge compression fracture of T12, age indeterminant Pain control: continue hydrocodone/robaxin/morphine Bowel protocol PT/OT WBAT per ortho recommendations Orthopedics consulted No plan for surgical intervention Follow up in office 1 week after discharge (5) Closed fracture of inferior pubic ramus: Code(s): S32.599A - Other specified fracture of unspecified pubis, initial encounter for closed fracture Status: Acute Assessment and Plan: Plan as above (6) T12 compression fracture: Code(s): S22.080A - Wedge compression fracture of T11-T12 vertebra, initial encounter for closed fracture Status: Acute Assessment and Plan: Lumbar XR: Severe lumbar spondylosis with wedge compression fracture of T12, age indeterminant Discussed patient with Dr. Goode, no acute intervention required at this time Recommend TLSO brace for comfort, does not have to be worn at all times (7) Congestive heart failure: Code(s): I50.9 - Heart failure, unspecified Status: Chronic Assessment and Plan: Does not appear in acute exacerbation Continue home Lasix 120 mg (8) Atrial fibrillation: Code(s): I48.91 - Unspecified atrial fibrillation Status: Acute Assessment and Plan: - Chronic, remains in afib - Current home medication: diltiazem 300 mg daily and metoprolol 50 mg daily - Anticoagulation: eliquis 5 mg BID - Booth Cashier: Dr. Edouard Reaves (9) DVT (deep venous thrombosis): Code(s): I82.409 - Acute embolism and thrombosis of unspecified deep veins of unspecified lower extremity Status: Acute Assessment and Plan: Chronic, continue Eliquis (10) Rheumatoid arthritis: Code(s): M06.9 - Rheumatoid arthritis, unspecified Status: Acute Assessment and Plan: Chronic, continue Imuran, prednisone and hydroxchloroquine (11) Hypothyroidism: Code(s): E03.9 - Hypothyroidism, unspecified Status: Acute Assessment and Plan: Chronic, continue levothyroxine Time Spent With Patient Time with patient: 25 - 35 minutes Subjective Date/time seen: 07/19/25 08:38 Interval history: 75-year-old female with past medical history of DVT, chronic anemia, COPD on home oxygen, chronic diastolic CHF, AFib, hypertension hyperlipidemia and hypothyroidism presents the hospital after fall. Patient is pleasant lying comfortably in bed. She continues to endorse pain to the mid to lower back and hip pain. She states that the back pain has been ongoing for a few months. Imaging showing severe lumbar spondylosis with wedge compression fracture of T12, age indeterminant. Discussed imaging with Dr. Goode neurosurgery and no acute intervention required at this time. Recommend a TLSO brace for comfort. Patient notes that she has not had a bowel movement since admission. She denies any nausea/vomiting or abdominal pain. Patient remains on her baseline oxygen denying shortness of breath and chest pain/palpitations. Review of Systems Review of Systems: All systems reviewed & are unremarkable except as noted in HPI and below Exam Narrative: AF HR 85 RR 20 SpO2 97 2.5L NC (baseline) BP 135/65 General: female in no acute respiratory distress who is nontoxic appearing, lying semi recumbent in bed. HEENT: Normocephalic. Atraumatic. Extraocular movement intact. Sclera clear and anicteric. No facial asymmetry. Chest: Lungs are clear to auscultation bilaterally. Speaking full sentences. CV: Heart was irregularly irregular rate and rhythm. Abd: Abdomen was soft. Nontender. Nondistended. Positive bowel sounds. Ext: No clubbing, cyanosis, or edema. DP pulses bilaterally. Neuro: Patient is alert and oriented x4. Strength is symmetrical in both upper and lower extremities. Speech is clear. Objective Data Vital Signs Vital Signs: Vital Signs - 24 hr 07/18/25 14:00 07/18/25 20:00 07/18/25 20:26 Temperature 97.3 F L 97.5 F L Pulse Rate 75 82 79 Respiratory Rate 18 20 20 Blood Pressure 115/50 L 123/52 L Pulse Oximetry 98 97 97 Oxygen Delivery Nasal Cannula Oxygen Flow Rate 3 Fraction of Inspired Oxygen 28 07/18/25 21:23 07/19/25 05:25 07/19/25 08:05 Temperature 97.0 F L Pulse Rate 82 90 85 Respiratory Rate 20 20 Blood Pressure 126/69 135/65 Pulse Oximetry 97 98 95 Oxygen Delivery Nasal Cannula Oxygen Flow Rate 2 Fraction of Inspired Oxygen 28 07/19/25 08:08 07/19/25 08:08 Temperature Pulse Rate 85 85 Respiratory Rate Blood Pressure Pulse Oximetry Oxygen Delivery Oxygen Flow Rate Fraction of Inspired Oxygen Intake/Output Intake/Output: Intake & Output 07/16/25 07/17/25 07/18/25 07/19/25 23:59 23:59 23:59 23:59 Intake Total 50 1060 400 Output Total 1375 650 Balance 50 -315 -250 Meds/Results Medications: Active Medications Generic Name Dose Route Start Last Admin Trade Name Freq PRN Reason Stop Dose Admin Acetaminophen 650 mg 07/17/25 19:02 07/19/25 03:59 Acetaminophen 325 Mg Tablet PO 650 mg Q4H PRN Administration Mild Pain (1-3) or Fever Hydrocodone Bitart/Acetaminophen 1 tab 07/17/25 17:43 07/19/25 08:09 Hydrocodone/Acetaminophen (*Crx) 5-325 Mg Tablet PO 1 tab Q4H PRN Administration Pain Rated 4-6 Apixaban 5 mg 07/17/25 21:45 07/19/25 08:09 Apixaban 5 Mg Tablet PO 5 mg Q12HR DELFIN Administration Azathioprine 50 mg 07/18/25 08:00 07/19/25 08:07 Azathioprine 50 Mg Tablet PO 50 mg DAILY@0800 DELFIN Administration Colestipol HCl 1 gm 07/17/25 21:45 07/18/25 20:19 Colestipol Hcl 1 Gm Tablet PO 1 gm HS DELFIN Administration Diltiazem HCl 300 mg 07/18/25 09:00 07/19/25 08:08 Diltiazem Hcl Cd 300 Mg Cap.24hr PO 300 mg QAM DELFIN Administration Docusate Sodium 100 mg 07/17/25 21:00 07/19/25 08:09 Docusate Sodium 100 Mg Capsule PO Not Given Q12HR DELFIN Duloxetine HCl 40 mg 07/18/25 09:00 07/19/25 08:08 Duloxetine Hcl 20 Mg Capsule.Dr PO 40 mg DAILY DELFIN Administration Furosemide 80 mg 07/18/25 09:00 07/19/25 08:09 Furosemide 80 Mg Tablet PO 80 mg DAILY DELFIN Administration Furosemide 40 mg 07/18/25 09:00 07/19/25 08:08 Furosemide 40 Mg Tablet PO 40 mg DAILY DELFIN Administration Hydroxychloroquine Sulfate 200 mg 07/18/25 08:00 07/19/25 08:07 Hydroxychloroquine Sulfate 200 Mg Tablet PO 200 mg BIDWM DELFIN Administration Ceftriaxone Sodium 1 gm/ 50 mls @ 100 mls/hr 07/17/25 19:00 07/18/25 18:42 Sodium Chloride IVPB 100 mls/hr Q24H DELFIN Administration Methocarbamol 500 mg 07/17/25 21:00 07/19/25 08:09 Methocarbamol 500 Mg Tablet PO 500 mg QID DELFIN Administration Metoprolol Succinate 100 mg 07/18/25 09:00 07/19/25 08:08 Metoprolol Succinate Ext Rel 100 Mg Tabcr PO 100 mg DAILY DELFIN Administration Metoprolol Succinate 50 mg 07/19/25 09:00 07/19/25 08:08 Metoprolol Succinate Ext Rel 50 Mg Tabcr PO 50 mg DAILY DELFIN Administration Morphine Sulfate 2 mg 07/17/25 17:43 07/17/25 20:56 Morphine Sulfate (*Crx) 2 Mg/Ml Inj IV PUSH 2 mg Q2H PRN Administration Pain Rated 7-10 Ondansetron HCl 4 mg 07/17/25 17:43 Ondansetron Inj 4 Mg/2 Ml Vial IV PUSH Q4H PRN Nausea Pravastatin Sodium 20 mg 07/17/25 21:30 07/18/25 20:20 Pravastatin Sodium 20 Mg Tablet BY MOUTH 20 mg HS DELFIN Administration Prednisone 2.5 mg 07/18/25 08:00 07/19/25 08:07 Prednisone 2.5 Mg Tablet PO 2.5 mg DAILY@0800 DELFIN Administration Radiology Results: ITS Impressions Hip/Pelvis X-Ray 07/17/25 17:10 Impression: 1: Severe osteoarthritis of the hips with progression since prior examination. Possible avascular necrosis left femoral head. ADDENDUM: 07/17/25 [id number] Correction: Nondisplaced right superior and inferior pubic rami fractures are present. Lumbar Spine X-Ray 07/17/25 17:11 Impression: 1: Severe lumbar spondylosis. Limited study. 2: Wedge compression fracture of T12, age indeterminate. Quality VTE Prophylaxis VTE prophylaxis: pharmacologic ordered (Remains on home eliquis )
[2025-07-19 09:29] LABS: Hematocrit 27.0 % (37.0-47.0); Hemoglobin 8.3 g/dL (12.0-15.0); Mean Corpuscular HGB Conc 30.7 g/dl (32-36); Mean Corpuscular Hemoglobin 30.7 pg (26-34); Mean Corpuscular Volume 100.0 fl (80-100); Platelet Count Result 186 k/mm3 (150-375); Red Blood Count 2.70 M/mm3 (4.2-5.4); White Blood Count 8.7 K/mm3 (4.5-10.0)
[2025-07-19 09:51] LABS: Alanine Aminotransferase 13 U/L (6-35); Albumin Level 3.7 g/dL (3.5-5.1); Alkaline Phosphatase 40 U/L (38-126); Anion Gap 7 mmol/L (4-12); Aspartate Amino Transferase 23 U/L (14-36); Bilirubin,Total 0.3 mg/dL (0.2-1.3); Blood Urea Nitrogen 41 mg/dL (7-17); Calcium 9.5 mg/dL (8.4-10.2); Carbon Dioxide 29 mmol/L (22-30); Chloride 101 mmol/L (98-107); Estimated CRCL calculation 44 ml/min; Estimated Glomerular Filt Rate 51; Glucose 103 mg/dL (65-110); Potassium 3.5 mmol/L (3.4-5.0); Sodium 137 mmol/L (137-145); Total Protein 6.3 g/dL (6.3-8.2)
[2025-07-19] MEDS: DOCUSATE SODIUM 100 MG CAPSULE PO (12:50)
[2025-07-19] MEDS: cefTRIAXone 1 GM in SODIUM CHLORIDE 0.9% IV 50 ML 100 ML IVPB (18:48)
[2025-07-19] MEDS: COLESTIPOL HCL 1 GM TABLET PO (20:23)
[2025-07-19] MEDS: PRAVASTATIN SODIUM 20 MG TABLET BY MOUTH (20:23)
[2025-07-20] VITALS (8 sets, daily range): BP systolic 112–149; BP diastolic 59–76; PULSE 68–91; RESP 12–20; TEMP 36.4–36.8; O2SAT 97–100
[2025-07-20] MEDS: HYDROcodone/acetaminophen (*CRX) 5-325 MG TABLET 1 TAB PO ×5 (03:29→21:02)
[2025-07-20 04:57] LABS: Hematocrit 27.8 % (37.0-47.0); Hemoglobin 8.4 g/dL (12.0-15.0); Mean Corpuscular HGB Conc 30.2 g/dl (32-36); Mean Corpuscular Hemoglobin 30.3 pg (26-34); Mean Corpuscular Volume 100.4 fl (80-100); Platelet Count Result 180 k/mm3 (150-375); Red Blood Count 2.77 M/mm3 (4.2-5.4); White Blood Count 8.7 K/mm3 (4.5-10.0)
[2025-07-20 05:25] LABS: Alanine Aminotransferase 12 U/L (6-35); Albumin Level 3.6 g/dL (3.5-5.1); Alkaline Phosphatase 41 U/L (38-126); Anion Gap 9 mmol/L (4-12); Aspartate Amino Transferase 24 U/L (14-36); Bilirubin,Total 0.4 mg/dL (0.2-1.3); Blood Urea Nitrogen 37 mg/dL (7-17); Calcium 9.7 mg/dL (8.4-10.2); Carbon Dioxide 29 mmol/L (22-30); Chloride 99 mmol/L (98-107); Estimated CRCL calculation 48 ml/min; Estimated Glomerular Filt Rate 57; Glucose 94 mg/dL (65-110); Potassium 3.3 mmol/L (3.4-5.0); Sodium 137 mmol/L (137-145); Total Protein 6.3 g/dL (6.3-8.2)
--- NOTE | 2025-07-20 08:19 | PM.IMPN ---
Progress Note: A&P Assessment and Plan (1) Chronic respiratory failure with hypoxia, on home oxygen therapy: Code(s): J96.11 - Chronic respiratory failure with hypoxia; Z99.81 - Dependence on supplemental oxygen Status: Acute Assessment and Plan: Chronic, remains on home oxygen of 2-4 L NC Denies shortness of breath Slightly diminished lung sounds on auscultation to the bilateral bases, likely atelectasis given recent immobility. IS ordered. (2) Fall: Code(s): W19.XXXA - Unspecified fall, initial encounter Status: Acute Assessment and Plan: Slipped in the shower landing on right hip, unable to stand afterward Denies head strike and loss of consciousness Denies dizziness/lightheadedness prior to fall Hip/pelvis XR: Severe osteoarthritis of the hips with progression since prior examination. Possible avascular necrosis left femoral head. Lumbar XR: Severe lumbar spondylosis with wedge compression fracture of T12, age indeterminant Fall precautions PT OT evaluate and treat WBAT per ortho Recommending SNF, care coordination following See plan below (3) Acute UTI: Code(s): N39.0 - Urinary tract infection, site not specified Status: Acute Assessment and Plan: - Chronic suprapubic catheter for urinary retention - UA: cloudy appearance with 2+ blood, positive nitrates, 3+ leukocytes, 21-50 RBC, 51-100 WBC, no bacteria or squamous cells seen. - UC obtained on 07/17: gram negative bacilli with sensitivities pending - previous micro reviewed 03/26/24: MRSA resistant to oxacillin - started on Rocephin on 07/17 Remains on rocephin pending culture sensitivities. (4) Closed fracture of superior pubic ramus: Code(s): S32.519A - Fracture of superior rim of unspecified pubis, initial encounter for closed fracture Status: Acute Assessment and Plan: Hip/pelvis XR: Nondisplaced right superior and inferior pubic rami fractures are present. Lumbar XR: Severe lumbar spondylosis with wedge compression fracture of T12, age indeterminant Pain control: continue hydrocodone/robaxin/morphine Bowel protocol PT/OT WBAT per ortho recommendations Recommending SNF placement, care coordination following Orthopedics consulted No plan for surgical intervention Follow up in office 1 week after discharge (5) Closed fracture of inferior pubic ramus: Code(s): S32.599A - Other specified fracture of unspecified pubis, initial encounter for closed fracture Status: Acute Assessment and Plan: Plan as above (6) T12 compression fracture: Code(s): S22.080A - Wedge compression fracture of T11-T12 vertebra, initial encounter for closed fracture Status: Acute Assessment and Plan: Lumbar XR: Severe lumbar spondylosis with wedge compression fracture of T12, age indeterminant Discussed patient with Dr. Goode, no acute intervention required at this time Recommend TLSO brace for comfort, does not have to be worn at all times Pain well controlled on the current regimen. Denies any tingling/numbness/shooting pains to the extremities. (7) Congestive heart failure: Code(s): I50.9 - Heart failure, unspecified Status: Chronic Assessment and Plan: Does not appear in acute exacerbation Continue home Lasix 120 mg (8) Atrial fibrillation: Code(s): I48.91 - Unspecified atrial fibrillation Status: Acute Assessment and Plan: - Chronic, remains in afib - Current home medication: diltiazem 300 mg daily and metoprolol 50 mg daily - Anticoagulation: eliquis 5 mg BID - Continuous Absorption Process Operator: Dr. Edouard Reaves (9) DVT (deep venous thrombosis): Code(s): I82.409 - Acute embolism and thrombosis of unspecified deep veins of unspecified lower extremity Status: Acute Assessment and Plan: Chronic, continue Eliquis (10) Rheumatoid arthritis: Code(s): M06.9 - Rheumatoid arthritis, unspecified Status: Acute Assessment and Plan: Chronic, continue Imuran, prednisone and hydroxchloroquine (11) Hypothyroidism: Code(s): E03.9 - Hypothyroidism, unspecified Status: Acute Assessment and Plan: Chronic, continue levothyroxine Time Spent With Patient Time with patient: 25 - 35 minutes Subjective Date/time seen: 07/20/25 08:19 Interval history: 75-year-old female with past medical history of DVT, chronic anemia, COPD on home oxygen, chronic diastolic CHF, AFib, hypertension hyperlipidemia and hypothyroidism presents the hospital after fall. Patient is pleasant lying comfortably in bed. She continues to endorse pain to the mid to low back and hip region but states that is well controlled on the current regimen. She denies any associated tingling/numbness/shooting pain to the extremities. Patient able to work with therapy who is recommending SNF placement. Patient agreeable to placement in care coordination is following. Patient's urine culture is growing Gram-negative bacilli. A suprapubic catheter remains in place and patient on Rocephin pending culture sensitivities. Patient has no other complaints denying chest pain, shortness a breath, palpitations, nausea/vomiting, and abdominal pain. Review of Systems Review of Systems: All systems reviewed & are unremarkable except as noted in HPI and below Exam Narrative: AF HR 82 RR 18 Spo2 100 2.5 L NC (baseline) BP 149/59 General: female in no acute respiratory distress who is nontoxic appearing, lying semi recumbent in bed. HEENT: Normocephalic. Atraumatic. Extraocular movement intact. Sclera clear and anicteric. No facial asymmetry. Chest: Lungs are slightly diminished to auscultation bilateral bases. Speaking full sentences. CV: Heart was irregularly irregular rate and rhythm. Abd: Abdomen was soft. Nontender. Nondistended. Positive bowel sounds. Suprapubic catheter yet with no surrounding erythema edema or warmth. Ext: No clubbing, cyanosis, or edema. DP pulses bilaterally. Neuro: Patient is alert and oriented x4. Strength is symmetrical in both upper and lower extremities. Speech is clear. Objective Data Vital Signs Vital Signs: Vital Signs - 24 hr 07/19/25 08:53 07/19/25 12:44 07/19/25 14:00 Temperature 96.6 F L Pulse Rate 58 L 53 L Respiratory Rate 16 Blood Pressure 117/61 118/50 L Pulse Oximetry 97 98 98 Oxygen Delivery Nasal Cannula Oxygen Flow Rate 2.5 07/19/25 15:15 07/19/25 17:48 07/19/25 20:00 Temperature Pulse Rate 75 Respiratory Rate Blood Pressure 121/65 Pulse Oximetry 94 94 Oxygen Delivery Nasal Cannula Nasal Cannula Oxygen Flow Rate 2.5 2.5 07/19/25 20:19 07/20/25 03:55 Temperature 97.6 F 97.6 F Pulse Rate 71 77 Respiratory Rate 18 18 Blood Pressure 117/55 L 124/75 Pulse Oximetry 100 99 Oxygen Delivery Oxygen Flow Rate Intake/Output Intake/Output: Intake & Output 07/17/25 07/18/25 07/19/25 07/20/25 23:59 23:59 23:59 23:59 Intake Total 50 1110 1170 290 Output Total 7265 1800 450 Balance 64 -265 -630 -160 Meds/Results Medications: Active Medications Generic Name Dose Route Start Last Admin Trade Name Juvenal PRN Reason Stop Dose Admin Acetaminophen 650 mg 07/17/25 19:02 07/19/25 18:47 Acetaminophen 325 Mg Tablet PO 650 mg Q4H PRN Administration Mild Pain (1-3) or Fever Hydrocodone Bitart/Acetaminophen 1 tab 07/17/25 17:43 07/20/25 03:29 Hydrocodone/Acetaminophen (*Crx) 5-325 Mg Tablet PO 1 tab Q4H PRN Administration Pain Rated 4-6 Apixaban 5 mg 07/17/25 21:45 07/19/25 20:23 Apixaban 5 Mg Tablet PO 5 mg Q12HR DELFIN Administration Azathioprine 50 mg 07/18/25 08:00 07/19/25 08:07 Azathioprine 50 Mg Tablet PO 50 mg DAILY@0800 DELFIN Administration Colestipol HCl 1 gm 07/17/25 21:45 07/19/25 20:23 Colestipol Hcl 1 Gm Tablet PO 1 gm HS DELFIN Administration Diltiazem HCl 300 mg 07/18/25 09:00 07/19/25 08:08 Diltiazem Hcl Cd 300 Mg Cap.24hr PO 300 mg QAM DELFIN Administration Docusate Sodium 100 mg 07/17/25 21:00 07/19/25 20:24 Docusate Sodium 100 Mg Capsule PO Not Given Q12HR DELFIN Duloxetine HCl 40 mg 07/18/25 09:00 07/19/25 08:08 Duloxetine Hcl 20 Mg Capsule.Dr PO 40 mg DAILY DELFIN Administration Furosemide 80 mg 07/18/25 09:00 07/19/25 08:09 Furosemide 80 Mg Tablet PO 80 mg DAILY DELFIN Administration Furosemide 40 mg 07/18/25 09:00 07/19/25 08:08 Furosemide 40 Mg Tablet PO 40 mg DAILY DELFIN Administration Hydroxychloroquine Sulfate 200 mg 07/18/25 08:00 07/19/25 17:50 Hydroxychloroquine Sulfate 200 Mg Tablet PO 200 mg BIDWM DELFIN Administration Ceftriaxone Sodium 1 gm/ 50 mls @ 100 mls/hr 07/17/25 19:00 07/19/25 19:18 Sodium Chloride IVPB Infused Q24H DELFIN Infusion Methocarbamol 500 mg 07/17/25 21:00 07/19/25 20:23 Methocarbamol 500 Mg Tablet PO 500 mg QID DELFIN Administration Metoprolol Succinate 100 mg 07/18/25 09:00 07/19/25 08:08 Metoprolol Succinate Ext Rel 100 Mg Tabcr PO 100 mg DAILY DELFIN Administration Metoprolol Succinate 50 mg 07/19/25 09:00 07/19/25 08:08 Metoprolol Succinate Ext Rel 50 Mg Tabcr PO 50 mg DAILY DELFIN Administration Morphine Sulfate 2 mg 07/17/25 17:43 07/17/25 20:56 Morphine Sulfate (*Crx) 2 Mg/Ml Inj IV PUSH 2 mg Q2H PRN Administration Pain Rated 7-10 Ondansetron HCl 4 mg 07/17/25 17:43 Ondansetron Inj 4 Mg/2 Ml Vial IV PUSH Q4H PRN Nausea Pravastatin Sodium 20 mg 07/17/25 21:30 07/19/25 20:23 Pravastatin Sodium 20 Mg Tablet BY MOUTH 20 mg HS DELFIN Administration Prednisone 2.5 mg 07/18/25 08:00 07/19/25 08:07 Prednisone 2.5 Mg Tablet PO 2.5 mg DAILY@0800 DELFIN Administration Radiology Results: ITS Impressions Hip/Pelvis X-Ray 07/17/25 17:10 Impression: 1: Severe osteoarthritis of the hips with progression since prior examination. Possible avascular necrosis left femoral head. ADDENDUM: 07/17/25 [id number] Correction: Nondisplaced right superior and inferior pubic rami fractures are present. Lumbar Spine X-Ray 07/17/25 17:11 Impression: 1: Severe lumbar spondylosis. Limited study. 2: Wedge compression fracture of T12, age indeterminate. Labs Labs: Laboratory Results - last 24 hr 07/19/25 07/20/25 09:23 04:43 WBC 8.7 8.7 RBC 2.70 L 2.77 L Hgb 8.3 L 8.4 L Hct 27.0 L 27.8 L MCV 100.0 100.4 H MCH 30.7 30.3 MCHC 30.7 L 30.2 L RDW 14.5 14.2 Plt Count 186 180 MPV 9.4 9.5 Sodium 137 137 Potassium 3.5 3.3 L Chloride 101 99 Carbon Dioxide 29 29 Anion Gap 7 9 BUN 41 H 37 H Creatinine 1.04 H 0.95 Estim Creat Clear Calc 44 48 Estimated GFR 51 L 57 L Glucose 103 94 Calcium 9.5 9.7 Total Bilirubin 0.3 0.4 AST 23 24 ALT 13 12 Alkaline Phosphatase 40 41 Total Protein 6.3 6.3 Albumin 3.7 3.6 Quality VTE Prophylaxis VTE prophylaxis: pharmacologic ordered (Remains on home eliquis )
[2025-07-20] MEDS: FUROSEMIDE 40 MG TABLET PO (08:46)
[2025-07-20] MEDS: HYDROXYCHLOROQUINE SULFATE 200 MG TABLET PO ×2 (08:46→16:58)
[2025-07-20] MEDS: DOCUSATE SODIUM 100 MG CAPSULE PO ×2 (08:46→21:03)
[2025-07-20] MEDS: dilTIAZem HCL CD 300 MG CAP.24HR PO (08:46)
[2025-07-20] MEDS: APIXABAN 5 MG TABLET PO ×2 (08:46→21:02)
[2025-07-20] MEDS: FUROSEMIDE 80 MG TABLET PO (08:46)
[2025-07-20] MEDS: METOPROLOL SUCCINATE EXT REL 50 MG TABCR PO (08:47)
[2025-07-20] MEDS: METOPROLOL SUCCINATE EXT REL 100 MG TABCR PO (08:47)
[2025-07-20] MEDS: POTASSIUM CHLORIDE 20 MEQ ER TABLET 40 MEQ PO (16:58)
[2025-07-20] MEDS: cefTRIAXone 1 GM in SODIUM CHLORIDE 0.9% IV 50 ML 100 ML IVPB (18:41)
[2025-07-20] MEDS: PRAVASTATIN SODIUM 20 MG TABLET BY MOUTH (21:02)
[2025-07-20] MEDS: COLESTIPOL HCL 1 GM TABLET PO (21:02)
[2025-07-21] VITALS (10 sets, daily range): BP systolic 118–128; BP diastolic 58–81; PULSE 78–118; RESP 16–18; TEMP 36.4–36.7; O2SAT 95–100
[2025-07-21] MEDS: HYDROcodone/acetaminophen (*CRX) 5-325 MG TABLET 1 TAB PO ×3 (04:28→12:26)
[2025-07-21 05:28] LABS: Hematocrit 27.7 % (37.0-47.0); Hemoglobin 8.4 g/dL (12.0-15.0); Mean Corpuscular HGB Conc 30.3 g/dl (32-36); Mean Corpuscular Hemoglobin 30.3 pg (26-34); Mean Corpuscular Volume 100.0 fl (80-100); Platelet Count Result 199 k/mm3 (150-375); Red Blood Count 2.77 M/mm3 (4.2-5.4); White Blood Count 9.1 K/mm3 (4.5-10.0)
[2025-07-21 05:49] LABS: Alanine Aminotransferase 12 U/L (6-35); Albumin Level 3.5 g/dL (3.5-5.1); Alkaline Phosphatase 40 U/L (38-126); Anion Gap 8 mmol/L (4-12); Aspartate Amino Transferase 25 U/L (14-36); Bilirubin,Total 0.3 mg/dL (0.2-1.3); Blood Urea Nitrogen 40 mg/dL (7-17); Calcium 9.8 mg/dL (8.4-10.2); Carbon Dioxide 30 mmol/L (22-30); Chloride 98 mmol/L (98-107); Estimated CRCL calculation 45 ml/min; Estimated Glomerular Filt Rate 52; Glucose 96 mg/dL (65-110); Potassium 3.7 mmol/L (3.4-5.0); Sodium 136 mmol/L (137-145); Total Protein 6.3 g/dL (6.3-8.2)
--- NOTE | 2025-07-21 08:07 | PM.IMPN ---
Progress Note: A&P Assessment and Plan (1) Chronic respiratory failure with hypoxia, on home oxygen therapy: Code(s): J96.11 - Chronic respiratory failure with hypoxia; Z99.81 - Dependence on supplemental oxygen Status: Acute Assessment and Plan: Chronic, remains on home oxygen of 2-4 L NC Denies shortness of breath Slightly diminished lung sounds on auscultation to the bilateral bases, likely atelectasis given recent immobility. IS ordered. (2) Fall: Code(s): W19.XXXA - Unspecified fall, initial encounter Status: Acute Assessment and Plan: Slipped in the shower landing on right hip, unable to stand afterward Denies head strike and loss of consciousness Denies dizziness/lightheadedness prior to fall Hip/pelvis XR: Severe osteoarthritis of the hips with progression since prior examination. Possible avascular necrosis left femoral head. Lumbar XR: Severe lumbar spondylosis with wedge compression fracture of T12, age indeterminant Fall precautions PT OT evaluate and treat WBAT per ortho Recommending SNF, care coordination following See plan below (3) Acute UTI: Code(s): N39.0 - Urinary tract infection, site not specified Status: Acute Assessment and Plan: - Chronic suprapubic catheter for urinary retention - UA: cloudy appearance with 2+ blood, positive nitrates, 3+ leukocytes, 21-50 RBC, 51-100 WBC, no bacteria or squamous cells seen. - UC obtained on 07/17: gram negative bacilli with sensitivities pending - previous micro reviewed 03/26/24: MRSA resistant to oxacillin - started on Rocephin on 07/17 Remains on rocephin pending culture sensitivities. - no culture results yet (4) Closed fracture of superior pubic ramus: Code(s): S32.519A - Fracture of superior rim of unspecified pubis, initial encounter for closed fracture Status: Acute Assessment and Plan: Hip/pelvis XR: Nondisplaced right superior and inferior pubic rami fractures are present. Lumbar XR: Severe lumbar spondylosis with wedge compression fracture of T12, age indeterminant Pain control: continue hydrocodone/robaxin/morphine Bowel protocol PT/OT WBAT per ortho recommendations Recommending SNF placement, care coordination following Orthopedics consulted No plan for surgical intervention Follow up in office 1 week after discharge will increase pain meds and add tramadol q6 if needed (5) Closed fracture of inferior pubic ramus: Code(s): S32.599A - Other specified fracture of unspecified pubis, initial encounter for closed fracture Status: Acute Assessment and Plan: Plan as above (6) T12 compression fracture: Code(s): S22.080A - Wedge compression fracture of T11-T12 vertebra, initial encounter for closed fracture Status: Acute Assessment and Plan: Lumbar XR: Severe lumbar spondylosis with wedge compression fracture of T12, age indeterminant Discussed patient with Dr. Goode, no acute intervention required at this time Recommend TLSO brace for comfort, does not have to be worn at all times Pain well controlled on the current regimen. Denies any tingling/numbness/shooting pains to the extremities. (7) Congestive heart failure: Code(s): I50.9 - Heart failure, unspecified Status: Chronic Assessment and Plan: Does not appear in acute exacerbation Continue home Lasix 120 mg (8) Atrial fibrillation: Code(s): I48.91 - Unspecified atrial fibrillation Status: Acute Assessment and Plan: - Chronic, remains in afib - Current home medication: diltiazem 300 mg daily and metoprolol 50 mg daily - Anticoagulation: eliquis 5 mg BID - Nuclear Supervising Operator: Dr. Edouard Reaves (9) DVT (deep venous thrombosis): Code(s): I82.409 - Acute embolism and thrombosis of unspecified deep veins of unspecified lower extremity Status: Acute Assessment and Plan: Chronic, continue Eliquis (10) Rheumatoid arthritis: Code(s): M06.9 - Rheumatoid arthritis, unspecified Status: Acute Assessment and Plan: Chronic, continue Imuran, prednisone and hydroxchloroquine (11) Hypothyroidism: Code(s): E03.9 - Hypothyroidism, unspecified Status: Acute Assessment and Plan: Chronic, continue levothyroxine Subjective Date/time seen: 07/21/25 08:07 Interval history: 75-year-old female with past medical history of DVT, chronic anemia, COPD on home oxygen, chronic diastolic CHF, AFib, hypertension hyperlipidemia and hypothyroidism presents the hospital after fall. Assuming care. Patient able to work with therapy who is recommending SNF placement. Patient agreeable to placement in care coordination is following. Patient's urine culture is growing Gram-negative bacilli. A suprapubic catheter remains in place. On Rocephin pending culture sensitivities. Patient has no other complaints, no chest pain, shortness a breath, palpitations, nausea/vomiting, and abdominal pain. reports that pain medication wears off after about 3 h. Review of Systems Review of Systems: 12 systems were reviewed and are negative except for as per HPI. All systems reviewed & are unremarkable except as noted in HPI and below Exam Narrative: General: female in no acute respiratory distress who is nontoxic appearing, lying semi recumbent in bed. HEENT: Normocephalic. Atraumatic. Extraocular movement intact. Sclera clear and anicteric. No facial asymmetry. Chest: Lungs are slightly diminished to auscultation bilateral bases. Speaking full sentences. CV: Heart was irregularly irregular rate and rhythm. Abd: Abdomen was soft. Nontender. Nondistended. Positive bowel sounds. Suprapubic catheter yet with no surrounding erythema edema or warmth. Ext: No clubbing, cyanosis, or edema. DP pulses bilaterally. Neuro: Patient is alert and oriented x4. Strength is symmetrical in both upper and lower extremities. Speech is clear. Const: General: comfortable Objective Data Vital Signs Vital Signs: Vital Signs - 24 hr 07/20/25 08:44 07/20/25 08:47 07/20/25 08:47 Temperature Pulse Rate 82 82 82 Respiratory Rate Blood Pressure 149/59 H Pulse Oximetry 100 Oxygen Delivery Oxygen Flow Rate 07/20/25 10:35 07/20/25 14:00 07/20/25 15:35 Temperature 98.0 F Pulse Rate 68 71 Respiratory Rate 12 20 Blood Pressure 134/76 Pulse Oximetry 99 99 Oxygen Delivery Nasal Cannula Nasal Cannula Oxygen Flow Rate 2.5 4 07/20/25 20:00 07/20/25 20:15 07/21/25 05:27 Temperature 98.3 F 97.5 F L Pulse Rate 91 91 Respiratory Rate 16 18 Blood Pressure 112/64 128/81 Pulse Oximetry 97 99 100 Oxygen Delivery Nasal Cannula Oxygen Flow Rate 2.5 Intake/Output Intake/Output: Intake & Output 07/18/25 07/19/25 07/20/25 07/21/25 23:59 23:59 23:59 23:59 Intake Total 1110 1170 1510 450 Output Total 1375 1800 1050 1300 Balance -265 -881 629 -220 Meds/Results Medications: Active Medications Generic Name Dose Route Start Last Admin Trade Name Freq PRN Reason Stop Dose Admin Acetaminophen 650 mg 07/17/25 19:02 07/19/25 18:47 Acetaminophen 325 Mg Tablet PO 650 mg Q4H PRN Administration Mild Pain (1-3) or Fever Hydrocodone Bitart/Acetaminophen 1 tab 07/17/25 17:43 07/21/25 04:28 Hydrocodone/Acetaminophen (*Crx) 5-325 Mg Tablet PO 1 tab Q4H PRN Administration Pain Rated 4-6 Apixaban 5 mg 07/17/25 21:45 07/20/25 21:02 Apixaban 5 Mg Tablet PO 5 mg Q12HR DELFIN Administration Azathioprine 50 mg 07/18/25 08:00 07/20/25 08:45 Azathioprine 50 Mg Tablet PO 50 mg DAILY@0800 DELFIN Administration Colestipol HCl 1 gm 07/17/25 21:45 07/20/25 21:02 Colestipol Hcl 1 Gm Tablet PO 1 gm HS DELFIN Administration Diltiazem HCl 300 mg 07/18/25 09:00 07/20/25 08:46 Diltiazem Hcl Cd 300 Mg Cap.24hr PO 300 mg QAM DELFIN Administration Docusate Sodium 100 mg 07/17/25 21:00 07/20/25 21:03 Docusate Sodium 100 Mg Capsule PO 100 mg Q12HR DELFIN Administration Duloxetine HCl 40 mg 07/18/25 09:00 07/20/25 08:46 Duloxetine Hcl 20 Mg Capsule.Dr PO 40 mg DAILY DELFIN Administration Furosemide 80 mg 07/18/25 09:00 07/20/25 08:46 Furosemide 80 Mg Tablet PO 80 mg DAILY DELFIN Administration Furosemide 40 mg 07/18/25 09:00 07/20/25 08:46 Furosemide 40 Mg Tablet PO 40 mg DAILY DELFIN Administration Hydroxychloroquine Sulfate 200 mg 07/18/25 08:00 07/20/25 16:58 Hydroxychloroquine Sulfate 200 Mg Tablet PO 200 mg BIDWM DELFIN Administration Ceftriaxone Sodium 1 gm/ 50 mls @ 100 mls/hr 07/17/25 19:00 07/20/25 19:11 Sodium Chloride IVPB Infused Q24H DELFIN Infusion Methocarbamol 500 mg 07/17/25 21:00 07/20/25 21:02 Methocarbamol 500 Mg Tablet PO 500 mg QID DELFIN Administration Metoprolol Succinate 100 mg 07/18/25 09:00 07/20/25 08:47 Metoprolol Succinate Ext Rel 100 Mg Tabcr PO 100 mg DAILY DELFIN Administration Metoprolol Succinate 50 mg 07/19/25 09:00 07/20/25 08:47 Metoprolol Succinate Ext Rel 50 Mg Tabcr PO 50 mg DAILY DELFIN Administration Morphine Sulfate 2 mg 07/17/25 17:43 07/17/25 20:56 Morphine Sulfate (*Crx) 2 Mg/Ml Inj IV PUSH 2 mg Q2H PRN Administration Pain Rated 7-10 Ondansetron HCl 4 mg 07/17/25 17:43 Ondansetron Inj 4 Mg/2 Ml Vial IV PUSH Q4H PRN Nausea Pravastatin Sodium 20 mg 07/17/25 21:30 07/20/25 21:02 Pravastatin Sodium 20 Mg Tablet BY MOUTH 20 mg HS DELFIN Administration Prednisone 2.5 mg 07/18/25 08:00 07/20/25 08:46 Prednisone 2.5 Mg Tablet PO 2.5 mg DAILY@0800 DELFIN Administration Radiology Results: ITS Impressions Hip/Pelvis X-Ray 07/17/25 17:10 Impression: 1: Severe osteoarthritis of the hips with progression since prior examination. Possible avascular necrosis left femoral head. ADDENDUM: 07/17/25 0478 Correction: Nondisplaced right superior and inferior pubic rami fractures are present. Lumbar Spine X-Ray 07/17/25 17:11 Impression: 1: Severe lumbar spondylosis. Limited study. 2: Wedge compression fracture of T12, age indeterminate. Labs Labs: Laboratory Results - last 24 hr 07/21/25 04:47 WBC 9.1 RBC 2.77 L Hgb 8.4 L Hct 27.7 L MCV 100.0 MCH 30.3 MCHC 30.3 L RDW 14.2 Plt Count 199 MPV 10.1 Sodium 136 L Potassium 3.7 Chloride 98 Carbon Dioxide 30 Anion Gap 8 BUN 40 H Creatinine 1.03 H Estim Creat Clear Calc 45 Estimated GFR 52 L Glucose 96 Calcium 9.8 Total Bilirubin 0.3 AST 25 ALT 12 Alkaline Phosphatase 40 Total Protein 6.3 Albumin 3.5 Quality VTE Prophylaxis VTE prophylaxis: pharmacologic ordered (Remains on home eliquis )
[2025-07-21] MEDS: DOCUSATE SODIUM 100 MG CAPSULE PO ×2 (08:26→21:06)
[2025-07-21] MEDS: dilTIAZem HCL CD 300 MG CAP.24HR PO (08:26)
[2025-07-21] MEDS: APIXABAN 5 MG TABLET PO ×2 (08:26→21:06)
[2025-07-21] MEDS: HYDROXYCHLOROQUINE SULFATE 200 MG TABLET PO ×2 (08:26→17:08)
[2025-07-21] MEDS: FUROSEMIDE 40 MG TABLET PO (08:26)
[2025-07-21] MEDS: FUROSEMIDE 80 MG TABLET PO (08:26)
[2025-07-21] MEDS: METOPROLOL SUCCINATE EXT REL 50 MG TABCR PO (08:26)
[2025-07-21] MEDS: METOPROLOL SUCCINATE EXT REL 100 MG TABCR PO (08:27)
[2025-07-21] MEDS: HYDROcodone/acetaminophen (*CRX) 7.5-325 MG TABLET 1 TAB PO ×2 (17:08→21:06)
[2025-07-21] MEDS: CEFTAZIDIME IVPB (17:09)
[2025-07-21] MEDS: SODIUM CHLORIDE 0.9% IVPB (17:09)
[2025-07-21] MEDS: COLESTIPOL HCL 1 GM TABLET PO (21:06)
[2025-07-21] MEDS: PRAVASTATIN SODIUM 20 MG TABLET BY MOUTH (21:06)
[2025-07-22] VITALS (7 sets, daily range): BP systolic 120–142; BP diastolic 53–75; PULSE 69–110; RESP 16–20; TEMP 36.4–36.8; O2SAT 94–100
[2025-07-22 05:26] LABS: Hematocrit 27.8 % (37.0-47.0); Hemoglobin 8.4 g/dL (12.0-15.0); Mean Corpuscular HGB Conc 30.2 g/dl (32-36); Mean Corpuscular Hemoglobin 30.1 pg (26-34); Mean Corpuscular Volume 99.6 fl (80-100); Platelet Count Result 202 k/mm3 (150-375); Red Blood Count 2.79 M/mm3 (4.2-5.4); White Blood Count 8.8 K/mm3 (4.5-10.0)
[2025-07-22] MEDS: HYDROcodone/acetaminophen (*CRX) 7.5-325 MG TABLET 1 TAB PO ×3 (05:28→17:16)
[2025-07-22 05:47] LABS: Alanine Aminotransferase 12 U/L (6-35); Albumin Level 3.6 g/dL (3.5-5.1); Alkaline Phosphatase 42 U/L (38-126); Anion Gap 9 mmol/L (4-12); Aspartate Amino Transferase 23 U/L (14-36); Bilirubin,Total 0.4 mg/dL (0.2-1.3); Blood Urea Nitrogen 46 mg/dL (7-17); Calcium 9.6 mg/dL (8.4-10.2); Carbon Dioxide 28 mmol/L (22-30); Chloride 98 mmol/L (98-107); Estimated CRCL calculation 46 ml/min; Estimated Glomerular Filt Rate 53; Glucose 92 mg/dL (65-110); Potassium 3.3 mmol/L (3.4-5.0); Sodium 135 mmol/L (137-145); Total Protein 6.3 g/dL (6.3-8.2)
[2025-07-22] MEDS: METOPROLOL SUCCINATE EXT REL 50 MG TABCR PO (08:28)
[2025-07-22] MEDS: METOPROLOL SUCCINATE EXT REL 100 MG TABCR PO (08:28)
[2025-07-22] MEDS: HYDROXYCHLOROQUINE SULFATE 200 MG TABLET PO ×2 (08:28→17:17)
[2025-07-22] MEDS: APIXABAN 5 MG TABLET PO ×2 (08:28→21:10)
[2025-07-22] MEDS: FUROSEMIDE 40 MG TABLET PO (08:28)
[2025-07-22] MEDS: dilTIAZem HCL CD 300 MG CAP.24HR PO (08:28)
[2025-07-22] MEDS: DOCUSATE SODIUM 100 MG CAPSULE PO ×2 (08:28→21:09)
[2025-07-22] MEDS: FUROSEMIDE 80 MG TABLET PO (08:28)
[2025-07-22] MEDS: CEFTAZIDIME IVPB ×2 (08:29→21:08)
[2025-07-22] MEDS: SODIUM CHLORIDE 0.9% IVPB ×2 (08:29→21:08)
--- NOTE | 2025-07-22 08:31 | P.PNIM_ITS ---
Progress Note: A&P Assessment and Plan (1) Chronic respiratory failure with hypoxia, on home oxygen therapy: Code(s): J96.11 - Chronic respiratory failure with hypoxia; Z99.81 - Dependence on supplemental oxygen Status: Acute Assessment and Plan: Chronic, remains on home oxygen of 2-4 L NC Denies shortness of breath Slightly diminished lung sounds on auscultation to the bilateral bases, likely atelectasis given recent immobility. IS ordered. (2) Fall: Code(s): W19.XXXA - Unspecified fall, initial encounter Status: Acute Assessment and Plan: Slipped in the shower landing on right hip, unable to stand afterward Denies head strike and loss of consciousness Denies dizziness/lightheadedness prior to fall Hip/pelvis XR: Severe osteoarthritis of the hips with progression since prior examination. Possible avascular necrosis left femoral head. Lumbar XR: Severe lumbar spondylosis with wedge compression fracture of T12, age indeterminant Fall precautions PT OT evaluate and treat WBAT per ortho Recommending SNF, care coordination following See plan below (3) Acute UTI: Code(s): N39.0 - Urinary tract infection, site not specified Status: Acute Assessment and Plan: - Chronic suprapubic catheter for urinary retention - UA: cloudy appearance with 2+ blood, positive nitrates, 3+ leukocytes, 21-50 RBC, 51-100 WBC, no bacteria or squamous cells seen. - UC obtained on 07/17: gram negative bacilli with sensitivities pending - previous micro reviewed 03/26/24: MRSA resistant to oxacillin - started on Rocephin on 07/17 Remains on rocephin pending culture sensitivities. - no culture results yet 07/22 -urine culture report is back - positive for pseudomonas aeruginosa. IV antibiotics were switched- Rocephin stopped- and Ceftazidime 2 gm q12h started- total 14 doses- end date 07/28. care coordination updated as pt is needing a placement ([facility]). midline order placed (4) Closed fracture of superior pubic ramus: Code(s): S32.519A - Fracture of superior rim of unspecified pubis, initial encounter for closed fracture Status: Acute Assessment and Plan: Hip/pelvis XR: Nondisplaced right superior and inferior pubic rami fractures are present. Lumbar XR: Severe lumbar spondylosis with wedge compression fracture of T12, age indeterminant Pain control: continue hydrocodone/robaxin/morphine Bowel protocol PT/OT WBAT per ortho recommendations Recommending SNF placement, care coordination following Orthopedics consulted No plan for surgical intervention Follow up in office 1 week after discharge will increase pain meds and add tramadol q6 if needed (5) Closed fracture of inferior pubic ramus: Code(s): S32.599A - Other specified fracture of unspecified pubis, initial encounter for closed fracture Status: Acute Assessment and Plan: Plan as above (6) T12 compression fracture: Code(s): S22.080A - Wedge compression fracture of T11-T12 vertebra, initial encounter for closed fracture Status: Acute Assessment and Plan: Lumbar XR: Severe lumbar spondylosis with wedge compression fracture of T12, age indeterminant Discussed patient with Dr. Goode, no acute intervention required at this time Recommend TLSO brace for comfort, does not have to be worn at all times Pain well controlled on the current regimen. Denies any tingling/numbness/shooting pains to the extremities. (7) Congestive heart failure: Code(s): I50.9 - Heart failure, unspecified Status: Chronic Assessment and Plan: Does not appear in acute exacerbation Continue home Lasix 120 mg (8) Atrial fibrillation: Code(s): I48.91 - Unspecified atrial fibrillation Status: Acute Assessment and Plan: - Chronic, remains in afib - Current home medication: diltiazem 300 mg daily and metoprolol 50 mg daily - Anticoagulation: eliquis 5 mg BID - Access Control Specialist: Dr. Edouard Reaves (9) DVT (deep venous thrombosis): Code(s): I82.409 - Acute embolism and thrombosis of unspecified deep veins of unspecified lower extremity Status: Acute Assessment and Plan: Chronic, continue Eliquis (10) Rheumatoid arthritis: Code(s): M06.9 - Rheumatoid arthritis, unspecified Status: Acute Assessment and Plan: Chronic, continue Imuran, prednisone and hydroxchloroquine (11) Hypothyroidism: Code(s): E03.9 - Hypothyroidism, unspecified Status: Acute Assessment and Plan: Chronic, continue levothyroxine Time Spent With Patient Time with patient: 25 - 35 minutes Subjective Date/time seen: 07/22/25 08:31 Interval history: 75-year-old female with past medical history of DVT, chronic anemia, COPD on home oxygen, chronic diastolic CHF, AFib, hypertension hyperlipidemia and hypothyroidism presents the hospital after fall. Assuming care. Patient able to work with therapy who is recommending SNF placement. Patient agreeable to placement in care coordination is following. Patient's urine culture is growing Gram-negative bacilli. A suprapubic catheter remains in place. On Rocephin pending culture sensitivities. Patient has no other complaints, no chest pain, shortness a breath, palpitations, nausea/vomiting, and abdominal pain. reports that pain medication wears off after about 3 h. 07/22- urine culture report is back - positive for pseudomonas aeruginosa. IV antibiotics were switched- care coordination updated. She will need to be on it for 7 days. [facility] tomorrow Review of Systems Review of Systems: 12 systems were reviewed and are negativ e except for as per HPI. All systems reviewed & are unremarkable except as noted in HPI and below Exam Narrative: General: female in no acute respiratory distress who is nontoxic appearing, lying semi recumbent in bed. HEENT: Normocephalic. Atraumatic. Extraocular movement intact. Sclera clear and anicteric. No facial asymmetry. Chest: Lungs are slightly diminished to auscultation bilateral bases. Speaking full sentences. CV: Heart was irregularly irregular rate and rhythm. Abd: Abdomen was soft. Nontender. Nondistended. Positive bowel sounds. Suprapubic catheter yet with no surrounding erythema edema or warmth. Ext: No clubbing, cyanosis, or edema. DP pulses bilaterally. Neuro: Patient is alert and oriented x4. Strength is symmetrical in both upper and lower extremities. Speech is clear. Const: General: comfortable Objective Data Vital Signs Vital Signs: Vital Signs - 24 hr 07/21/25 14:00 07/21/25 20:00 07/21/25 20:01 Temperature 97.6 F Pulse Rate 118 H 78 Respiratory Rate 17 Blood Pressure 124/58 L Pulse Oximetry 100 95 99 Oxygen Delivery Nasal Cannula Nasal Cannula Oxygen Flow Rate 3 3 07/21/25 20:36 07/22/25 05:30 07/22/25 08:27 Temperature 98.0 F 98.2 F Pulse Rate 79 88 81 Respiratory Rate 16 17 Blood Pressure 118/65 137/67 142/75 H Pulse Oximetry 99 94 Oxygen Delivery Oxygen Flow Rate 07/22/25 08:28 07/22/25 08:28 Temperature Pulse Rate 81 81 Respiratory Rate Blood Pressure Pulse Oximetry Oxygen Delivery Oxygen Flow Rate Intake/Output Intake/Output: Intake & Output 07/19/25 07/20/25 07/21/25 07/22/25 23:59 23:59 23:59 23:59 Intake Total 1170 1510 1370 200 Output Total 1800 1050 2300 650 Balance -630 460 -930 -450 Meds/Results Medications: Active Medications Generic Name Dose Route Start Last Admin Trade Name Freq PRN Reason Stop Dose Admin Acetaminophen 650 mg 07/17/25 19:02 07/19/25 18:47 Acetaminophen 325 Mg Tablet PO 650 mg Q4H PRN Administration Mild Pain (1-3) or Fever Hydrocodone Bitart/Acetaminophen 1 tab 07/21/25 14:19 07/22/25 05:28 Hydrocodone/Acetaminophen (*Crx) 7.5-325 Mg Tablet PO 1 tab Q4H PRN Administration Pain Rated 7-10 Apixaban 5 mg 07/17/25 21:45 07/22/25 08:28 Apixaban 5 Mg Tablet PO 5 mg Q12HR DELFIN Administration Azathioprine 50 mg 07/18/25 08:00 07/22/25 08:27 Azathioprine 50 Mg Tablet PO 50 mg DAILY@0800 DELFIN Administration Colestipol HCl 1 gm 07/17/25 21:45 07/21/25 21:06 Colestipol Hcl 1 Gm Tablet PO 1 gm HS DELFIN Administration Diltiazem HCl 300 mg 07/18/25 09:00 07/22/25 08:28 Diltiazem Hcl Cd 300 Mg Cap.24hr PO 300 mg QAM DELFIN Administration Docusate Sodium 100 mg 07/17/25 21:00 07/22/25 08:28 Docusate Sodium 100 Mg Capsule PO 100 mg Q12HR DELFIN Administration Duloxetine HCl 40 mg 07/18/25 09:00 07/22/25 08:28 Duloxetine Hcl 20 Mg Capsule.Dr PO 40 mg DAILY DELFIN Administration Furosemide 80 mg 07/18/25 09:00 07/22/25 08:28 Furosemide 80 Mg Tablet PO 80 mg DAILY DELFIN Administration Furosemide 40 mg 07/18/25 09:00 07/22/25 08:28 Furosemide 40 Mg Tablet PO 40 mg DAILY DELFIN Administration Hydroxychloroquine Sulfate 200 mg 07/18/25 08:00 07/22/25 08:28 Hydroxychloroquine Sulfate 200 Mg Tablet PO 200 mg BIDWM DELFIN Administration Ceftazidime 2 gm/ Sodium 50 mls @ 100 mls/hr 07/21/25 18:00 07/22/25 08:29 Chloride IVPB 07/28/25 09:29 100 mls/hr Q12HR DELFIN Administration Methocarbamol 500 mg 07/17/25 21:00 07/22/25 08:28 Methocarbamol 500 Mg Tablet PO 500 mg QID DELFIN Administration Metoprolol Succinate 100 mg 07/18/25 09:00 07/22/25 08:28 Metoprolol Succinate Ext Rel 100 Mg Tabcr PO 100 mg DAILY [facility] Administration Metoprolol Succinate 50 mg 07/19/25 09:00 07/22/25 08:28 Metoprolol Succinate Ext Rel 50 Mg Tabcr PO 50 mg DAILY [facility] Administration Morphine Sulfate 2 mg 07/17/25 17:43 07/17/25 20:56 Morphine Sulfate (*Crx) 2 Mg/Ml Inj IV PUSH 2 mg Q2H PRN Administration Pain Rated 7-10 Ondansetron HCl 4 mg 07/17/25 17:43 Ondansetron Inj 4 Mg/2 Ml Vial IV PUSH Q4H PRN Nausea Pravastatin Sodium 20 mg 07/17/25 21:30 07/21/25 21:06 Pravastatin Sodium 20 Mg Tablet BY MOUTH 20 mg HS DELFIN Administration Prednisone 2.5 mg 07/18/25 08:00 07/22/25 08:28 Prednisone 2.5 Mg Tablet PO 2.5 mg DAILY@0800 [facility] Administration Tramadol HCl 50 mg 07/21/25 14:19 Tramadol Hcl (*Crx) 50 Mg Tablet PO Q4H PRN Pain Rated 4-6 Radiology Results: ITS Impressions Hip/Pelvis X-Ray 07/17/25 17:10 Impression: 1: Severe osteoarthritis of the hips with progression since prior examination. Possible avascular necrosis left femoral head. ADDENDUM: 07/17/25 1728 Correction: Nondisplaced right superior and inferior pubic rami fractures are present. Lumbar Spine X-Ray 07/17/25 17:11 Impression: 1: Severe lumbar spondylosis. Limited study. 2: Wedge compression fracture of T12, age indeterminate. Labs Labs: Laboratory Results - last 24 hr 07/22/25 04:57 WBC 8.8 RBC 2.79 L Hgb 8.4 L Hct 27.8 L MCV 99.6 MCH 30.1 MCHC 30.2 L RDW 14.3 Plt Count 202 MPV 10.0 Sodium 135 L Potassium 3.3 L Chloride 98 Carbon Dioxide 28 Anion Gap 9 BUN 46 H Creatinine 1.01 H Estim Creat Clear Calc 46 Estimated GFR 53 L Glucose 92 Calcium 9.6 Total Bilirubin 0.4 AST 23 ALT 12 Alkaline Phosphatase 42 Total Protein 6.3 Albumin 3.6 Quality VTE Prophylaxis VTE prophylaxis: pharmacologic ordered (Remains on home eliquis )
[2025-07-22] MEDS: POTASSIUM CHLORIDE 20 MEQ PACKET (FOR LIQUID) PO (09:16)
[2025-07-22] MEDS: LIDOCAINE 1% LOCAL INJ 2 ML AMPUL 5 ML INFILTRATE (12:00)
[2025-07-22] MEDS: SALINE LOCK FLUSH 10 ML IV PUSH ×2 (14:24→21:10)
[2025-07-22] MEDS: COLESTIPOL HCL 1 GM TABLET PO (21:09)
[2025-07-22] MEDS: PRAVASTATIN SODIUM 20 MG TABLET BY MOUTH (21:10)
[2025-07-23] VITALS (7 sets, daily range): BP systolic 107–149; BP diastolic 55–85; PULSE 60–84; RESP 16–20; TEMP 36.2–36.6; O2SAT 96–100
[2025-07-23] MEDS: HYDROcodone/acetaminophen (*CRX) 7.5-325 MG TABLET 1 TAB PO ×5 (05:01→21:31)
[2025-07-23] MEDS: SALINE LOCK FLUSH 10 ML IV PUSH ×3 (05:04→20:24)
[2025-07-23 05:53] LABS: Hematocrit 25.4 % (37.0-47.0); Hemoglobin 7.7 g/dL (12.0-15.0); Mean Corpuscular HGB Conc 30.3 g/dl (32-36); Mean Corpuscular Hemoglobin 30.6 pg (26-34); Mean Corpuscular Volume 100.8 fl (80-100); Platelet Count Result 214 k/mm3 (150-375); Red Blood Count 2.52 M/mm3 (4.2-5.4); White Blood Count 8.7 K/mm3 (4.5-10.0)
[2025-07-23 06:16] LABS: Alanine Aminotransferase 12 U/L (6-35); Albumin Level 3.4 g/dL (3.5-5.1); Alkaline Phosphatase 40 U/L (38-126); Anion Gap 7 mmol/L (4-12); Aspartate Amino Transferase 24 U/L (14-36); Bilirubin,Total 0.4 mg/dL (0.2-1.3); Blood Urea Nitrogen 46 mg/dL (7-17); Calcium 10.1 mg/dL (8.4-10.2); Carbon Dioxide 33 mmol/L (22-30); Chloride 98 mmol/L (98-107); Estimated CRCL calculation 46 ml/min; Estimated Glomerular Filt Rate 54; Glucose 102 mg/dL (65-110); Potassium 3.4 mmol/L (3.4-5.0); Sodium 138 mmol/L (137-145); Total Protein 6.2 g/dL (6.3-8.2)
--- NOTE | 2025-07-23 08:25 | P.DS_ITS ---
DS: Admitting Diagnosis Discharge Date 07/24 Admitting Diagnosis fall DS: Discharge Diagnosis Discharge Diagnosis (1) Chronic respiratory failure with hypoxia, on home oxygen therapy: Code(s): J96.11 - Chronic respiratory failure with hypoxia; Z99.81 - Dependence on supplemental oxygen Status: Acute (2) Fall: Code(s): W19.XXXA - Unspecified fall, initial encounter Status: Acute (3) Acute UTI: Code(s): N39.0 - Urinary tract infection, site not specified Status: Acute (4) Closed fracture of superior pubic ramus: Code(s): S32.519A - Fracture of superior rim of unspecified pubis, initial encounter for closed fracture Status: Acute (5) Closed fracture of inferior pubic ramus: Code(s): S32.599A - Other specified fracture of unspecified pubis, initial encounter for closed fracture Status: Acute Assessment and Plan: Plan as above (6) T12 compression fracture: Code(s): S22.080A - Wedge compression fracture of T11-T12 vertebra, initial encounter for closed fracture Status: Acute (7) Congestive heart failure: Code(s): I50.9 - Heart failure, unspecified Status: Chronic (8) Atrial fibrillation: Code(s): I48.91 - Unspecified atrial fibrillation Status: Acute (9) DVT (deep venous thrombosis): Code(s): I82.409 - Acute embolism and thrombosis of unspecified deep veins of unspecified lower extremity Status: Acute (10) Rheumatoid arthritis: Code(s): M06.9 - Rheumatoid arthritis, unspecified Status: Acute (11) Hypothyroidism: Code(s): E03.9 - Hypothyroidism, unspecified Status: Acute Assessment and Plan: Chronic, continue levothyroxine DS: Summary Hospital Course Hospital Course: 75-year-old female with past medical history of DVT, chronic anemia, COPD on analilia e oxygen, chronic diastolic CHF, AFib, hypertension hyperlipidemia and hypothyroidism presents the hospital after fall. Patient states that she fell in the shower following enter but. She states she was unable to get up afterwards. She states that pain is a 10/10 and has limited range of motion due to acute pain.. Denies hitting her head or losing consciousness. Lab work shows leukocytosis at 13.7, hemoglobin 9.4 sodium of 135, BUN of 42 creatinine of 1.23 which is around baseline, UA is positive for nitrates and leukocyte esterase 3+ with 51-100 wbc's. X-ray lumbar spine with no acute p rocess however there is a wedge compression fracture T12 undetermined age. Hip and pelvis x-ray show Nondisplaced right superior and inferior pubic rami fractures are present. Several issues were addressed during hospital stay: # Chronic respiratory failure with hypoxia, on home oxygen therapy: Chronic, remains on home oxygen of 2-4 L NC Denies shortness of breath Slightly diminished lung sounds on auscultation to the bilateral bases, likely atelectasis given recent immobility. IS ordered. stable. # Fall # Closed fracture of pubic ramus Slipped in the shower landing on right hip, unable to stand afterward Denies head strike and loss of consciousness Denies dizziness/lightheadedness prior to fall Hip/pelvis XR: Severe osteoarthritis of the hips with progression since prior examination. Possible avascular necrosis left femoral head. Lumbar XR: Severe lumbar spondylosis with wedge compression fracture of T12, age indeterminant Fall precautions WBAT per ortho Recommending SNF for rehab Hip/pelvis XR: Nondisplaced right superior and inferior pubic rami fractures are present. Lumbar XR: Severe lumbar spondylosis with wedge compression fracture of T12, age indeterminant Pain control: continue hydrocodone/robaxin Bowel protocol PT/OT WBAT per ortho recommendations Orthopedics following No plan for surgical intervention Follow up in office 1 week after discharge # T12 compression fracture: Lumbar XR: Severe lumbar spondylosis with wedge compression fracture of T12, age indeterminant Dr. Goode was consulted_ no acute intervention required at this time Recommend TLSO brace for comfort, does not have to be worn at all times # Atrial fibrillation: - Chronic, remains in afib - Current home medication: diltiazem 300 mg daily and metoprolol 50 mg daily - Anticoagulation: eliquis 5 mg BID - Wire Steward: Dr. Edouard ramos # DVT (deep venous thrombosis) Chronic, continue Eliquis fall/bleeding risk # Rheumatoid arthritis: Chronic, continue Imuran, prednisone and hydroxchloroquine # Hypothyroidism: Chronic, continue levothyroxine # Acute UTI: - Chronic suprapubic catheter for urinary retention - UA: cloudy appearance with 2+ blood, positive nitrates, 3+ leukocytes, 21-50 RBC, 51-100 WBC, no bacteria or squamous cells seen. - UC obtained on 07/17: gram negative bacilli with sensitivities pending - previous micro reviewed 03/26/24: MRSA resistant to oxacillin - started on Rocephin on 07/17 Remains on rocephin pending culture sensitivities. - no culture results yet 07/22 -urine culture report is back - positive for pseudomonas aeruginosa. IV antibiotics were switched- Rocephin stopped- and Ceftazidime 2 gm q12h started- total 14 doses- end date 07/28. care coordination updated as pt is needing a placement ([facility]). midline order placed - OK to remove midline once antibiotics course completed Status at Discharge Functional status at discharge: uses cane/walker Overall status at discharge: patient is progressing back to baseline Time Spent with Patient Time attestation: Total time spent providing and/or coordinating discharge services: Exam Narrative: General: female in no acute respiratory distress who is nontoxic appearing, lying semi recumbent in bed. HEENT: Normocephalic. Atraumatic. Extraocular movement intact. Sclera clear and anicteric. No facial asymmetry. Chest: Lungs are slightly diminished to auscultation bilateral bases. Speaking full sentences. CV: Heart was irregularly irregular rate and rhythm. Abd: Abdomen was soft. Nontender. Nondistended. Positive bowel sounds. Suprapubic catheter yet with no surrounding erythema edema or warmth. Ext: No clubbing, cyanosis, or edema. DP pulses bilaterally. Neuro: Patient is alert and oriented x4. Strength is symmetrical in both upper and lower extremities. Speech is clear. Const: General: comfortable DS: Data Data Completed and Pending Labs on day of discharge: Labs from last 24 hours 07/23/25 05:45 WBC 8.7 RBC 2.52 L Hgb 7.7 L Hct 25.4 L MCV 100.8 H MCH 30.6 MCHC 30.3 L RDW 14.3 Plt Count 214 MPV 9.8 Sodium 138 Potassium 3.4 Chloride 98 Carbon Dioxide 33 H Anion Gap 7 BUN 46 H Creatinine 1.00 Estim Creat Clear Calc 46 Estimated GFR 54 L Glucose 102 Calcium 10.1 Total Bilirubin 0.4 AST 24 ALT 12 Alkaline Phosphatase 40 Total Protein 6.2 L Albumin 3.4 L Discharge Plan Discharge Attending physician on discharge: Richard Gandhi Consulting providers: Domo Webb; Ivette Robbins Discharging Clinician: Shea Rivera Patient Disposition: SNF Activity: march shower Diet: heart healthy Patient Language: Greenlandic Stand Alone Forms: General Discharge Information Discharge Medications: No Action furosemide 80 mg tablet 80 mg PO DAILY azathioprine 50 mg tablet 50 mg PO DAILY@0800 acetaminophen [Tylenol] 325 mg capsule 650 mg PO Q6H PRN (Reason: Pain) prednisone 2.5 mg tablet 2.5 mg PO DAILY cephalexin 250 mg capsule 250 mg PO DAILY Eliquis 5 mg tablet 5 mg PO BID 90 Days Qty: 180 1RF metoprolol succinate 50 mg tablet extended release 24 hr 100 mg PO DAILY Rx Instructions: XL metoprolol succinate 100 mg tablet extended release 24 hr 100 mg PO DAILY hydroxychloroquine 200 mg tablet 200 mg PO BID Patient Comments: AM dose taken cyanocobalamin (vitamin B-12) 1,000 mcg Tablet 1,000 mcg PO DAILY Patient Comments: QAM cholecalciferol (vitamin D3) 25 mcg (1,000 unit) Capsule 2,000 mcg PO DAILY Patient Comments: QAM Calcium 600-D3 Plus (mag-zinc) 1 tablet PO BID diltiazem HCl 300 mg Capsule,Extended Release 24hr 300 mg PO QAM Qty: 30 0RF furosemide 40 mg Tablet 40 mg PO DAILY colestipol 1 gram tablet 1 g PO HS Rx Instructions: TAKE 1 TABLET BY MOUTH DAILY duloxetine 20 mg capsule,delayed release(DR/EC) 40 mg PO DAILY alendronate [Fosamax] 70 mg tablet 70 mg PO WEEKLY Rx Instructions: on saturdays alendronate [Fosamax] 70 mg tablet 70 mg PO WEEKLY Qty: 12 1RF Rx Instructions: saturdays magnesium 250 mg tablet 250 mg PO DAILY Qty: 90 1RF tramadol 50 mg tablet 50 mg PO Q8H PRN (Reason: pain) Qty: 90 1RF potassium chloride 20 mEq tablet,ER particles/crystals See Rx Instructions .ROUTE .COMPLEX Qty: 180 1RF Dose Instruction: TAKE 1 TABLET BY MOUTH TWICE DAILY Rx Instructions: TAKE 1 TABLET BY MOUTH TWICE DAILY pravastatin 80 mg tablet See Rx Instructions .ROUTE .COMPLEX Qty: 90 1RF Dose Instruction: TAKE 1 TABLET BY MOUTH AT BEDTIME Rx Instructions: TAKE 1 TABLET BY MOUTH AT BEDTIME pantoprazole 40 mg tablet,delayed release (DR/EC) See Rx Instructions .ROUTE .COMPLEX Qty: 90 1RF Dose Instruction: TAKE 1 TABLET(40 MG) BY MOUTH DAILY Rx Instructions: TAKE 1 TABLET(40 MG) BY MOUTH DAILY levothyroxine 112 mcg tablet See Rx Instructions .ROUTE .COMPLEX Qty: 90 0RF Dose Instruction: TAKE ONE TABLET BY MOUTH DAILY Rx Instructions: TAKE ONE TABLET BY MOUTH DAILY Date of admission: 07/18/25 11:48 Primary Care Provider: Timothy Donis Admitting Provider: Richard Gandhi Attending physician on admission: Richard Gandhi Condition: Stable Quality VTE Prophylaxis VTE prophylaxis: pharmacologic ordered (Remains on home eliquis )
[2025-07-23] MEDS: APIXABAN 5 MG TABLET PO (08:38)
[2025-07-23] MEDS: HYDROXYCHLOROQUINE SULFATE 200 MG TABLET PO ×2 (08:38→16:59)
[2025-07-23] MEDS: dilTIAZem HCL CD 300 MG CAP.24HR PO (08:38)
[2025-07-23] MEDS: DOCUSATE SODIUM 100 MG CAPSULE PO ×2 (08:39→20:23)
[2025-07-23] MEDS: FUROSEMIDE 40 MG TABLET PO (08:39)
[2025-07-23] MEDS: FUROSEMIDE 80 MG TABLET PO (08:39)
[2025-07-23] MEDS: METOPROLOL SUCCINATE EXT REL 100 MG TABCR PO (08:40)
[2025-07-23] MEDS: METOPROLOL SUCCINATE EXT REL 50 MG TABCR PO (08:40)
[2025-07-23] MEDS: POTASSIUM CHLORIDE 20 MEQ PACKET (FOR LIQUID) PO (08:41)
[2025-07-23] MEDS: CEFTAZIDIME IVPB ×2 (08:49→20:24)
[2025-07-23] MEDS: SODIUM CHLORIDE 0.9% IVPB ×2 (08:49→20:24)
--- NOTE | 2025-07-23 10:46 | P.PNIM_ITS ---
Progress Note: A&P Assessment and Plan (1) Chronic respiratory failure with hypoxia, on home oxygen therapy: Code(s): J96.11 - Chronic respiratory failure with hypoxia; Z99.81 - Dependence on supplemental oxygen Status: Acute Assessment and Plan: Chronic, remains on home oxygen of 2-4 L NC Denies shortness of breath Slightly diminished lung sounds on auscultation to the bilateral bases, likely atelectasis given recent immobility. IS ordered. (2) Fall: Code(s): W19.XXXA - Unspecified fall, initial encounter Status: Acute Assessment and Plan: Slipped in the shower landing on right hip, unable to stand afterward Denies head strike and loss of consciousness Denies dizziness/lightheadedness prior to fall Hip/pelvis XR: Severe osteoarthritis of the hips with progression since prior examination. Possible avascular necrosis left femoral head. Lumbar XR: Severe lumbar spondylosis with wedge compression fracture of T12, age indeterminant Fall precautions PT OT evaluate and treat WBAT per ortho Recommending SNF, care coordination following See plan below (3) Acute UTI: Code(s): N39.0 - Urinary tract infection, site not specified Status: Acute Assessment and Plan: - Chronic suprapubic catheter for urinary retention - UA: cloudy appearance with 2+ blood, positive nitrates, 3+ leukocytes, 21-50 RBC, 51-100 WBC, no bacteria or squamous cells seen. - UC obtained on 07/17: gram negative bacilli with sensitivities pending - previous micro reviewed 03/26/24: MRSA resistant to oxacillin - started on Rocephin on 07/17 Remains on rocephin pending culture sensitivities. - no culture results yet 07/22 -urine culture report is back - positive for pseudomonas aeruginosa. IV antibiotics were switched- Rocephin stopped- and Ceftazidime 2 gm q12h started- total 14 doses- end date 07/28. care coordination updated as pt is needing a placement ([facility]). midline order placed (4) Closed fracture of superior pubic ramus: Code(s): S32.519A - Fracture of superior rim of unspecified pubis, initial encounter for closed fracture Status: Acute Assessment and Plan: Hip/pelvis XR: Nondisplaced right superior and inferior pubic rami fractures are present. Lumbar XR: Severe lumbar spondylosis with wedge compression fracture of T12, age indeterminant Pain control: continue hydrocodone/robaxin/morphine Bowel protocol PT/OT WBAT per ortho recommendations Recommending SNF placement, care coordination following Orthopedics consulted No plan for surgical intervention Follow up in office 1 week after discharge will increase pain meds and add tramadol q6 if needed (5) Closed fracture of inferior pubic ramus: Code(s): S32.599A - Other specified fracture of unspecified pubis, initial encounter for closed fracture Status: Acute Assessment and Plan: Plan as above (6) T12 compression fracture: Code(s): S22.080A - Wedge compression fracture of T11-T12 vertebra, initial encounter for closed fracture Status: Acute Assessment and Plan: Lumbar XR: Severe lumbar spondylosis with wedge compression fracture of T12, age indeterminant Discussed patient with Dr. Goode, no acute intervention required at this time Recommend TLSO brace for comfort, does not have to be worn at all times Pain well controlled on the current regimen. Denies any tingling/numbness/shooting pains to the extremities. (7) Congestive heart failure: Code(s): I50.9 - Heart failure, unspecified Status: Chronic Assessment and Plan: Does not appear in acute exacerbation Continue home Lasix 120 mg (8) Atrial fibrillation: Code(s): I48.91 - Unspecified atrial fibrillation Status: Acute Assessment and Plan: Chronic, remains in afib - Current home medication: diltiazem 300 mg daily and metoprolol 50 mg daily - Anticoagulation: eliquis 5 mg BID - Steam Table Associate: Dr. Edouard Reaves (9) DVT (deep venous thrombosis): Code(s): I82.409 - Acute embolism and thrombosis of unspecified deep veins of unspecified lower extremity Status: Acute Assessment and Plan: Chronic, continue Eliquis (10) Rheumatoid arthritis: Code(s): M06.9 - Rheumatoid arthritis, unspecified Status: Acute Assessment and Plan: Chronic, continue Imuran, prednisone and hydroxchloroquine (11) Hypothyroidism: Code(s): E03.9 - Hypothyroidism, unspecified Status: Acute Assessment and Plan: Chronic, continue levothyroxine (12) Acute on chronic anemia: Code(s): D64.9 - Anemia, unspecified Status: Acute Assessment and Plan: -noted drop in HG this morning - no s/s of bleeding - GI consulted- no acute interventions needed -consider hem referral as an outpt Notes from GI: Last EGD and colonoscopy done for anemia and heme positive stools in August 2023 , colonoscopy showed internal hemorrhoids and diverticulosis and EGD showed non erosive reflux disease but no findings on endoscopy to explain anemia. Iron panel and ferritin in March was normal. Patient denies any signs of active GI bleeding. Anemia likely multifactorial secondary to chronic kidney disease, lung disease, and recent pelvic fracture * No indication for emergent endoscopic evaluation at this time given other acute issues * If H&H drops will consider outpatient capsule endoscopy given her prior negative workup * primary care team to consider Hematology referral to workup non GI source of anemia * Fecal occult blood canceled as a positive result would not change the treatment plan * Primary care team to continue monitoring H&H and transfuse as needed to keep HGB > 7 Plan NO BM for few days- pt is agreeable to take miralax and start bowel regimen. Anticipate discharge tomorrow. Time Spent With Patient Time with patient: 25 - 35 minutes Subjective Date/time seen: 07/23/25 10:46 Interval history: 75-year-old female with past medical history of DVT, chronic anemia, COPD on home oxygen, chronic diastolic CHF, AFib, hypertension hyperlipidemia and hypothyroidism presents the hospital after fall. Assuming care. Patient able to work with therapy who is recommending SNF placement. Patient agreeable to placement in care coordination is following. Patient's urine culture is growing Gram-negative bacilli. A suprapubic catheter remains in place. On Rocephin pending culture sensitivities. Patient has no other complaints, no chest pain, shortness a breath, palpitations, nausea/vomiting, and abdominal pain. reports that pain medication wears off after about 3 h. 07/22- urine culture report is back - positive for pseudomonas aeruginosa. IV antibiotics were switched- care coordination updated. She will need to be on it for 7 days. [facility] tomorrow. 07/23 noted drop in hg no blood in urine/stool. Pt refusing to be discharged today as she had not had any BMs in few days. Of note, pt was assessed for this and offered miralax and other bowel regimen to avoid constipation but she was always refusing any regimen. Review of Systems Review of Systems: 12 systems were reviewed and are negativ e except for as per HPI. All systems reviewed & are unremarkable except as noted in HPI and below Exam Narrative: General: female in no acute respiratory distress who is nontoxic appearing, lying semi recumbent in bed. HEENT: Normocephalic. Atraumatic. Extraocular movement intact. Sclera clear and anicteric. No facial asymmetry. Chest: Lungs are slightly diminished to auscultation bilateral bases. Speaking full sentences. CV: Heart was irregularly irregular rate and rhythm. Abd: Abdomen was soft. Nontender. Nondistended. Positive bowel sounds. Suprapubic catheter yet with no surrounding erythema edema or warmth. Ext: No clubbing, cyanosis, or edema. DP pulses bilaterally. Neuro: Patient is alert and oriented x4. Strength is symmetrical in both upper and lower extremities. Speech is clear. Const: General: comfortable Objective Data Vital Signs Vital Signs: Vital Signs - 24 hr 07/22/25 14:00 07/22/25 20:00 07/22/25 20:50 Temperature 97.6 F 97.9 F Pulse Rate 110 H 110 H 69 Respiratory Rate 16 16 20 Blood Pressure 120/53 L 128/67 Pulse Oximetry 100 100 100 Oxygen Delivery Nasal Cannula Oxygen Flow Rate 3 Fraction of Inspired Oxygen 07/23/25 04:51 07/23/25 08:35 07/23/25 08:40 Temperature 97.2 F L Pulse Rate 60 84 84 Respiratory Rate 20 Blood Pressure 136/55 L 149/85 H Pulse Oximetry 100 100 Oxygen Delivery Oxygen Flow Rate Fraction of Inspired Oxygen 07/23/25 08:40 Temperature Pulse Rate 84 Respiratory Rate Blood Pressure Pulse Oximetry Oxygen Delivery Oxygen Flow Rate Fraction of Inspired Oxygen Intake/Output Intake/Output: Intake & Output 07/20/25 07/21/25 07/22/25 07/23/25 23:59 23:59 23:59 23:59 Intake Total 1510 1370 540 200 Output Total 1050 2300 1650 650 Balance 460 -185 -0071 -137 Meds/Results Medications: Active Medications Generic Name Dose Route Start Last Admin Trade Name Freq PRN Reason Stop Dose Admin Acetaminophen 650 mg 07/17/25 19:02 07/19/25 18:47 Acetaminophen 325 Mg Tablet PO 650 mg Q4H PRN Administration Mild Pain (1-3) or Fever Hydrocodone Bitart/Acetaminophen 1 tab 07/21/25 14:19 07/23/25 09:10 Hydrocodone/Acetaminophen (*Crx) 7.5-325 Mg Tablet PO 1 tab Q4H PRN Administration Pain Rated 7-10 Azathioprine 50 mg 07/18/25 08:00 07/23/25 08:37 Azathioprine 50 Mg Tablet PO 50 mg DAILY@0800 DELFIN Administration Colestipol HCl 1 gm 07/17/25 21:45 07/22/25 21:09 Colestipol Hcl 1 Gm Tablet PO 1 gm HS DELFIN Administration Diltiazem HCl 300 mg 07/18/25 09:00 07/23/25 08:38 Diltiazem Hcl Cd 300 Mg Cap.24hr PO 300 mg QAM DELFIN Administration Docusate Sodium 100 mg 07/17/25 21:00 07/23/25 08:39 Docusate Sodium 100 Mg Capsule PO 100 mg Q12HR DELFIN Administration Duloxetine HCl 40 mg 07/18/25 09:00 07/23/25 08:39 Duloxetine Hcl 20 Mg Capsule.Dr PO 40 mg DAILY DELFIN Administration Furosemide 80 mg 07/18/25 09:00 07/23/25 08:39 Furosemide 80 Mg Tablet PO 80 mg DAILY DELFIN Administration Furosemide 40 mg 07/18/25 09:00 07/23/25 08:39 Furosemide 40 Mg Tablet PO 40 mg DAILY DELFIN Administration Hydroxychloroquine Sulfate 200 mg 07/18/25 08:00 07/23/25 08:38 Hydroxychloroquine Sulfate 200 Mg Tablet PO 200 mg BIDWM DELFIN Administration Ceftazidime 2 gm/ Sodium 50 mls @ 100 mls/hr 07/21/25 18:00 07/23/25 08:49 Chloride IVPB 07/28/25 09:29 100 mls/hr Q12HR DELFIN Administration Methocarbamol 500 mg 07/17/25 21:00 07/23/25 08:39 Methocarbamol 500 Mg Tablet PO 500 mg QID DELFIN Administration Metoprolol Succinate 100 mg 07/18/25 09:00 07/23/25 08:40 Metoprolol Succinate Ext Rel 100 Mg Tabcr PO 100 mg DAILY DELFIN Administration Metoprolol Succinate 50 mg 07/19/25 09:00 07/23/25 08:40 Metoprolol Succinate Ext Rel 50 Mg Tabcr PO 50 mg DAILY DELFIN Administration Morphine Sulfate 2 mg 07/17/25 17:43 07/17/25 20:56 Morphine Sulfate (*Crx) 2 Mg/Ml Inj IV PUSH 2 mg Q2H PRN Administration Pain Rated 7-10 Ondansetron HCl 4 mg 07/17/25 17:43 Ondansetron Inj 4 Mg/2 Ml Vial IV PUSH Q4H PRN Nausea Potassium Chloride 20 meq 07/22/25 09:00 07/23/25 08:41 Potassium Chloride 20 Meq Packet (For Liquid) PO 20 meq DAILY DELFIN Administration Pravastatin Sodium 20 mg 07/17/25 21:30 07/22/25 21:10 Pravastatin Sodium 20 Mg Tablet BY MOUTH 20 mg HS DELFIN Administration Prednisone 2.5 mg 07/18/25 08:00 07/23/25 08:38 Prednisone 2.5 Mg Tablet PO 2.5 mg DAILY@0800 DELFIN Administration Sodium Chloride 10 ml 07/22/25 14:00 07/23/25 05:04 Saline Lock Flush IV PUSH 10 ml Q8HR DELFIN Administration Sodium Chloride 10 ml 07/22/25 12:23 Saline Lock Flush IV PUSH PRN PRN Flush Sodium Chloride 20 ml 07/22/25 12:23 Saline Lock Flush IV PUSH PRN PRN after blood draws Tramadol HCl 50 mg 07/21/25 14:19 Tramadol Hcl (*Crx) 50 Mg Tablet PO Q4H PRN Pain Rated 4-6 Radiology Results: ITS Impressions Hip/Pelvis X-Ray 07/17/25 17:10 Impression: 1: Severe osteoarthritis of the hips with progression since prior examination. Possible avascular necrosis left femoral head. ADDENDUM: 07/17/25 0286 Correction: Nondisplaced right superior and inferior pubic rami fractures are present. Lumbar Spine X-Ray 07/17/25 17:11 Impression: 1: Severe lumbar spondylosis. Limited study. 2: Wedge compression fracture of T12, age indeterminate. Labs Labs: Laboratory Results - last 24 hr 07/23/25 05:45 WBC 8.7 RBC 2.52 L Hgb 7.7 L Hct 25.4 L MCV 100.8 H MCH 30.6 MCHC 30.3 L RDW 14.3 Plt Count 214 MPV 9.8 Sodium 138 Potassium 3.4 Chloride 98 Carbon Dioxide 33 H Anion Gap 7 BUN 46 H Creatinine 1.00 Estim Creat Clear Calc 46 Estimated GFR 54 L Glucose 102 Calcium 10.1 Total Bilirubin 0.4 AST 24 ALT 12 Alkaline Phosphatase 40 Total Protein 6.2 L Albumin 3.4 L Quality VTE Prophylaxis VTE prophylaxis: pharmacologic ordered (Remains on home eliquis )
[2025-07-23 11:26] LABS: Hematocrit 26.8 % (37.0-47.0); Hemoglobin 8.0 g/dL (12.0-15.0)
--- NOTE | 2025-07-23 11:30 | WPDGICN ---
Assessment and Plan Assessment and plan (1) Acute on chronic anemia: Code(s): D64.9 - Anemia, unspecified Status: Acute Plan 1. Acute on chronic anemia: Last EGD and colonoscopy done for anemia and heme positive stools in August 2023 , colonoscopy showed internal hemorrhoids and diverticulosis and EGD showed non erosive reflux disease but no findings on endoscopy to explain anemia. Iron panel and ferritin in March was normal. Patient denies any signs of active GI bleeding. Anemia likely multifactorial secondary to chronic kidney disease, lung disease, and recent pelvic fracture No indication for emergent endoscopic evaluation at this time given other acute issues If H&H drops will consider outpatient capsule endoscopy given her prior negative workup primary care team to consider Hematology referral to workup non GI source of anemia Fecal occult blood canceled as a positive result would not change the treatment plan Primary care team to continue monitoring H&H and transfuse as needed to keep HGB > 7 Thank you very much for allowing me to share in the care of this very nice patient. This report may have been done utilizing a voice recognition system. Attempts have been made to correct errors. However, there may be uncorrected grammatical, spelling, and recognition errors present. GI Consult Note Consult date/time: 07/23/25 11:30 Reason for consult: anemia HPI: Ayanna Cash is a 75 year old female with PMSH cholecystectomy, , cardiac catheterization, chronic suprapubic catheter, chronic kidney disease stage 3, history of DVT and PE, chronic respiratory failure with hypoxia on 4 L O2, CHF, osteoporosis, AFib, interstitial lung disease, rheumatoid arthritis, depression, anxiety, HLD, HTN and STARR with CPAP use. Patient presented to the emergency room 07/17/2025 after a slip and fall in the shower which resulted in hip and buttocks pain. GI has been consulted for anemia. Patient's sisters were at her bedside throughout the entire visit. Patient's last bowel movement was on Saturday. She denies any history of constipation prior to admission. She otherwise denies any GI complaints. Denies any abdominal pain, nausea, vomiting, bloating, odynophagia, dysphagia, reflux, regurgitation, unexplained weight loss or appetite. Denies diarrhea, hematochezia, or melena. She is on Eliquis daily but denies any other NSAID or aspirin use. She is a nondrinker nonsmoker and denies marijuana use. ENDOSCOPY HISTORY: EGD: 09/06/[address] Patel for JOVANNA Findings: Non erosive reflux disease was present at the GE junction at a depth of 35 cm from the incisors EGD otherwise normal Bx Results: Duodenum, biopsies: - Superficial pieces of benign small bowel mucosa - No evidence of duodenitis or celiac disease COLONOSCOPY: 09/06/[address] Patel for JOVANNA Findings: Multiple diverticula were present in the descending colon and in the sigmoid colon There was a single 8 mm sessile polyp observed in the proximal ascending colon that seemed adenomatous in nature. Polyp removed and retreived a few medium size internal hemorrhoids in the rectum that were non bleeding 5 year repeat recommended Bx results: Ascending colon polyp, polypectomy: - Tubular adenoma LABS AND STOOL STUDIES: Labs 07/23/2025: Sodium 138, potassium 3.4, BUN 46, creatinine 1.00, GFR 54, calcium 10 WBC 9, Hgb 8, Hct 25, MCV 101, platelets 214, INR 1.5 (07/17) Total bilirubin 0.4, AST 24, ALT 12, Alkaline Phos 40, albumin 3.4 Labs 07/17/2025: WBC 14, Hgb 9, Hct 31, MCV 99, platelets 247, INR 1.5 Sodium 135, potassium 4.4, BUN 42, creatinine 1.23, GFR 42, calcium 9.8 Total bilirubin 0.4, AST 35, ALT 20, Alkaline Phos 46, albumin 4.2 Labs 03/25/2025: Total iron 79, TIBC 296, iron sat 27%, ferritin 65.40 IMAGING: CT abd/pelvis w/contrast 03/11/2025: Impression: 6 mm nonobstructing left renal stone. Urinary bladder collapsed around a suprapubic catheter, limiting evaluation. T11 and T12 compression fractures are likely chronic, though new from prior exam. Stable chronic interstitial disease the lung bases. Review of Systems Constitutional: Constitutional: Reports as per HPI ENT: Reports as per HPI Cardiovascular: Cardiovascular: Reports as per HPI, Denies chest pain, Denies leg edema and Reports dyspnea Respiratory: Respiratory: Denies cough and Denies dyspnea Gastrointestinal: Gastrointestinal: Reports as per HPI Genitourinary: Comments: suprapubic cath Musculoskeletal: Musculoskeletal: Reports as per HPI Comments: left hip pain Integumentary/Breasts: Skin/Breast: Reports as per HPI Psychiatric: Psychiatric: Reports as per HPI Endocrine: Endocrine: Reports no additional endocrine complaints Hematologic/Lymphatic: Hematologic/Lymphatic: Reports no additional hematologic/lymphatic complaints [facility] Past Medical History Medical History Chronic diarrhea Fecal occult blood test positive Chronic anticoagulation Chronic kidney disease, stage 3 Chronic anemia Deep venous thrombosis (2004) Degenerative joint disease Chronic respiratory failure with hypoxia, on home oxygen therapy On 2 to 4 L nasal cannula. Chronic diastolic congestive heart failure Echocardiogram in 06/2022 showed an EF 50 to 55% and diastolic dysfunction. Osteoporosis Vitamin D deficiency Paroxysmal atrial fibrillation Morbid obesity Interstitial lung disease Pre-diabetes Post menopausal syndrome Stress incontinence Shingles Hearing loss Rheumatoid arthritis Depression with anxiety Nonspecific interstitial pneumonitis Pulmonary embolism (2004) History of COVID-19 Obstructive sleep apnea on CPAP Hypothyroidism Hyperlipidemia Essential hypertension Diverticulosis Surgical History Surgical History History of cholecystectomy History of parathyroidectomy History of section History of arthroscopy of right knee History of tonsillectomy and adenoidectomy History of bilateral knee replacement History of cardiac catheterization Family History Family History Mother Hypertension Father Pulmonary emboli Rheumatoid arthritis Mother , at 91 due to old age Hypertension Father , at 58 due to PE Family history of rheumatoid arthritis Family history of pulmonary embolism Grandparent Cerebrovascular accident Other Family history of malignant neoplasm Social History Social History Social History: She currently resides [facility] she lived with her daughter Katya in her house prior to going into the rehab facility. Originally from [place], [place]. Surrogate medical decision maker: Mae Cash, daughter. Code status: Full code. Smoking status: Never smoker Second hand tobacco smoke exposure: Yes Alcohol intake: never Substance use: never Substance use type: does not use Do You Feel Safe in your Home?: Yes Lack of Transportation: No Lack of Food: Never True Current Housing: I Have Housing Concerned About Future Housing: No Difficulty Paying Gas/Electric Bills: No Difficulty Paying for Meds: No Currently Unemployed: No Education: Decline to Answer Difficulty w/ Childcare or Family Care: No Living arrangements: with family Additional living arrangements comments: LIVES WITH PAOLA BRITT Occupation/Education: retired Gender identity (if verbalized by the patient): Female Spiritual care concerns: No Agree to blood products: Yes Meds Home Medications and Allergies Home Medications ?Medication ?Instructions ?Recorded ?Confirmed ?Type Calcium 600-D3 Plus (mag-zinc) 1 tablet PO BID 07/21/22 07/17/25 History cholecalciferol (vitamin D3) 25 2,000 mcg PO DAILY 07/21/22 07/17/25 History mcg (1,000 unit) capsule cyanocobalamin (vitamin B-12) 1,000 mcg PO DAILY 07/21/22 07/17/25 History 1,000 mcg tablet hydroxychloroquine 200 mg tablet 200 mg PO BID 07/21/22 07/17/25 History acetaminophen 325 mg capsule 650 mg PO Q6H PRN Pain 12/27/22 07/17/25 History (Tylenol) metoprolol succinate 50 mg 100 mg PO DAILY 03/22/23 07/18/25 History tablet,extended release 24 hr diltiazem HCl 300 mg 300 mg PO QAM #30 caps 04/11/23 07/17/25 Rx capsule,extended release 24 hr metoprolol succinate 100 mg 100 mg PO DAILY 08/28/23 07/17/25 History tablet,extended release 24 hr cephalexin 250 mg capsule 250 mg PO DAILY 08/13/24 07/17/25 History prednisone 2.5 mg tablet 2.5 mg PO DAILY 08/13/24 07/17/25 History furosemide 80 mg tablet 80 mg PO DAILY 10/01/24 07/17/25 History alendronate 70 mg tablet (Fosamax) 70 mg PO WEEKLY #12 tabs 12/14/24 07/17/25 Rx azathioprine 50 mg tablet 50 mg PO DAILY@0800 02/18/25 07/17/25 History magnesium 250 mg tablet 250 mg PO DAILY #90 tabs 04/02/25 07/17/25 Rx tramadol 50 mg tablet 50 mg PO Q8H PRN pain #90 tabs 04/16/25 07/17/25 Rx potassium chloride 20 mEq See Rx Instructions .Route 05/10/25 07/17/25 Rx tablet,extended release(part/cryst) .COMPLEX #180 tabs pravastatin 80 mg tablet See Rx Instructions .Route 05/17/25 07/17/25 Rx .COMPLEX #90 tabs pantoprazole 40 mg tablet,delayed See Rx Instructions .Route 06/11/25 07/17/25 Rx release .COMPLEX #90 tabs apixaban 5 mg tablet (Eliquis) 5 mg PO BID 3 months #180 tabs 07/06/25 07/17/25 Rx levothyroxine 112 mcg tablet See Rx Instructions .Route 07/16/25 07/17/25 Rx .COMPLEX #90 tabs colestipol 1 gram tablet 1 g PO HS 07/17/25 07/17/25 History duloxetine 20 mg capsule,delayed 40 mg PO DAILY 07/17/25 07/17/25 History release furosemide 40 mg tablet 40 mg PO DAILY 07/17/25 07/17/25 History alendronate 70 mg tablet (Fosamax) 70 mg PO WEEKLY 07/18/25 07/18/25 History Allergies Allergy/AdvReac Type Severity Reaction Status Date / Time No Known Allergies Allergy Verified 07/17/25 14:56 Vital Signs Vital Signs - 24 hr 07/22/25 14:00 07/22/25 20:00 07/22/25 20:50 Temperature 97.6 F 97.9 F Pulse Rate 110 H 110 H 69 Respiratory Rate 16 16 20 Blood Pressure 120/53 L 128/67 Pulse Oximetry 100 100 100 Oxygen Delivery Nasal Cannula Oxygen Flow Rate 3 Fraction of Inspired Oxygen 07/23/25 04:51 07/23/25 08:35 07/23/25 08:40 Temperature 97.2 F L Pulse Rate 60 84 84 Respiratory Rate 20 Blood Pressure 136/55 L 149/85 H Pulse Oximetry 100 100 Oxygen Delivery Oxygen Flow Rate Fraction of Inspired Oxygen 07/23/25 08:40 Temperature Pulse Rate 84 Respiratory Rate Blood Pressure Pulse Oximetry Oxygen Delivery Oxygen Flow Rate Fraction of Inspired Oxygen Exam Const: General: cooperative, comfortable, no acute distress and well developed Orientation/consciousness: oriented to person, oriented to place, oriented to time and patient oriented x3 HENMT: Head: normal to inspection, normocephalic and atraumatic Mouth: Yes Normal oral and palatal mucosa present and Yes moist mucous membranes Eyes: General: appearance normal, both eyes and all related structures Conjunctivae: conjunctivae normal Sclera: sclerae normal Pupils: Equal, round and reactive pupils present Neck: Neck: normal visual inspection Chest: Chest palpation & inspection: normal inspection of the chest Resp: Effort & Inspection: able to speak in complete sentences Auscultation: diminished lung sounds Cardio: Jugular venous distension: no JVD Rate: regular rate Rhythm: regular rhythm Heart sounds: S1 normal heart sound present and S2 normal heart sound present GI: Inspection: normal to inspection (large) GI Palp: Yes Soft to palpation, No Tenderness to palpation present (GI), No Guarding due to palpation present (GI) and Yes No hepatosplenomegaly present Auscultation: normal bowel sounds Rectal Exam: deferred Urinary Catheter: Urinary Catheter: patent and draining Skin: General skin exam: normal color Wounds: wounds noted (lower legs) Neuro: General: oriented to person, oriented to place, oriented to time and patient oriented x3 Cranial nerves: Yes Equal, round and reactive pupils present Speech: normal speech Extrem: General: normal to inspection and no clubbing, cyanosis or edema Psych: Appearance: grossly normal and well kempt Affect: normal affect Results Labs 07/23/25 05:45 07/23/25 05:45 Labs: Short CBC 07/23/25 Range/Units 05:45 WBC 8.7 (4.5-10.0) K/mm3 Hgb 7.7 L (12.0-15.0) g/dL Hct 25.4 L (37.0-47.0) % Plt Count 214 (150-375) k/mm3 BMP 07/23/25 05:45 Sodium 138 Potassium 3.4 Chloride 98 Carbon Dioxide 33 H BUN 46 H Creatinine 1.00 Glucose 102 Calcium 10.1 Liver Function 07/23/25 Range/Units 05:45 Total Bilirubin 0.4 (0.2-1.3) mg/dL AST 24 (14-36) U/L ALT 12 (6-35) U/L Alkaline Phosphatase 40 (38-126) U/L Albumin 3.4 L (3.5-5.1) g/dL
[2025-07-23] MEDS: BISACODYL 10 MG SUPPOSITORY RECTAL (12:56)
--- NOTE | 2025-07-23 13:56 | PCNWS ---
Weekly nutritional screen. Patient is tolerating current Heart healthy diet with varied intake, 0-100%. No weight loss reported. No nutritional needs at this time. Supposed to discharge tomorrow.
[2025-07-23] MEDS: PRAVASTATIN SODIUM 20 MG TABLET BY MOUTH (20:23)
[2025-07-23] MEDS: COLESTIPOL HCL 1 GM TABLET PO (20:23)
[2025-07-24] VITALS (7 sets, daily range): BP systolic 122–131; BP diastolic 62–71; PULSE 60–76; RESP 20; TEMP 36.5; O2SAT 95–99; BMI 10.0
[2025-07-24 04:41] LABS: Hematocrit 27.2 % (37.0-47.0); Hemoglobin 8.1 g/dL (12.0-15.0); Mean Corpuscular HGB Conc 29.8 g/dl (32-36); Mean Corpuscular Hemoglobin 29.7 pg (26-34); Mean Corpuscular Volume 99.6 fl (80-100); Platelet Count Result 222 k/mm3 (150-375); Red Blood Count 2.73 M/mm3 (4.2-5.4); White Blood Count 8.1 K/mm3 (4.5-10.0)
[2025-07-24] MEDS: HYDROcodone/acetaminophen (*CRX) 7.5-325 MG TABLET 1 TAB PO ×2 (04:59→11:47)
[2025-07-24 05:03] LABS: Alanine Aminotransferase 12 U/L (6-35); Albumin Level 3.4 g/dL (3.5-5.1); Alkaline Phosphatase 43 U/L (38-126); Anion Gap 7 mmol/L (4-12); Aspartate Amino Transferase 25 U/L (14-36); Bilirubin,Total 0.3 mg/dL (0.2-1.3); Blood Urea Nitrogen 48 mg/dL (7-17); Calcium 9.8 mg/dL (8.4-10.2); Carbon Dioxide 34 mmol/L (22-30); Chloride 96 mmol/L (98-107); Estimated CRCL calculation 40 ml/min; Estimated Glomerular Filt Rate 46; Glucose 100 mg/dL (65-110); Potassium 3.1 mmol/L (3.4-5.0); Sodium 137 mmol/L (137-145); Total Protein 6.2 g/dL (6.3-8.2)
[2025-07-24] MEDS: SALINE LOCK FLUSH 10 ML IV PUSH ×2 (05:04→13:08)
--- NOTE | 2025-07-24 07:11 | PM.DS ---
DS: Admitting Diagnosis Discharge Date 07/24 Admitting Diagnosis fall DS: Discharge Diagnosis Discharge Diagnosis (1) Chronic respiratory failure with hypoxia, on home oxygen therapy: Code(s): J96.11 - Chronic respiratory failure with hypoxia; Z99.81 - Dependence on supplemental oxygen Status: Acute (2) Fall: Code(s): W19.XXXA - Unspecified fall, initial encounter Status: Acute (3) Acute UTI: Code(s): N39.0 - Urinary tract infection, site not specified Status: Acute (4) Closed fracture of superior pubic ramus: Code(s): S32.519A - Fracture of superior rim of unspecified pubis, initial encounter for closed fracture Status: Acute (5) Closed fracture of inferior pubic ramus: Code(s): S32.599A - Other specified fracture of unspecified pubis, initial encounter for closed fracture Status: Acute Assessment and Plan: Plan as above (6) T12 compression fracture: Code(s): S22.080A - Wedge compression fracture of T11-T12 vertebra, initial encounter for closed fracture Status: Acute (7) Congestive heart failure: Code(s): I50.9 - Heart failure, unspecified Status: Chronic (8) Atrial fibrillation: Code(s): I48.91 - Unspecified atrial fibrillation Status: Acute (9) DVT (deep venous thrombosis): Code(s): I82.409 - Acute embolism and thrombosis of unspecified deep veins of unspecified lower extremity Status: Acute (10) Rheumatoid arthritis: Code(s): M06.9 - Rheumatoid arthritis, unspecified Status: Acute (11) Hypothyroidism: Code(s): E03.9 - Hypothyroidism, unspecified Status: Acute Assessment and Plan: Chronic, continue levothyroxine DS: Summary Hospital Course Hospital Course: 75-year-old female with past medical history of DVT, chronic anemia, COPD on home oxygen, chronic diastolic CHF, AFib, hypertension hyperlipidemia and hypothyroidism presents the hospital after fall.? Patient states that she fell in the shower following enter but.? She states she was unable to get up afterwards.? She states that pain is a 10/10 and has limited range of motion due to acute pain..? Denies hitting her head or losing consciousness. Lab work shows leukocytosis at 13.7, hemoglobin 9.4 sodium of 135, BUN of 42 creatinine of 1.23 which is around baseline, UA is positive for nitrates and leukocyte esterase 3+ with 51-100 wbc's.? X-ray lumbar spine with no acute process however there is a wedge compression fracture T12 undetermined age.? Hip and pelvis x-ray show Nondisplaced right superior and inferior pubic rami fractures are present. Several issues were addressed during hospital stay: # Chronic respiratory failure with hypoxia, on home oxygen therapy: Chronic, remains on home oxygen of 2-4 L NC Denies shortness of breath Slightly diminished lung sounds on auscultation to the bilateral bases, likely atelectasis given recent immobility. IS ordered. stable. # Fall # Closed fracture of? pubic ramus Slipped in the shower landing on right hip, unable to stand afterward Denies head strike and loss of consciousness Denies dizziness/lightheadedness prior to fall Hip/pelvis XR: Severe osteoarthritis of the hips with progression since prior examination. Possible avascular necrosis left femoral head. Lumbar XR: Severe lumbar spondylosis with wedge compression fracture of T12, age indeterminant Fall precautions WBAT per ortho Recommending SNF for rehab Hip/pelvis XR: Nondisplaced right superior and inferior pubic rami fractures are present. Lumbar XR: Severe lumbar spondylosis with wedge compression fracture of T12, age indeterminant Pain control: continue hydrocodone/robaxin Bowel protocol PT/OT WBAT per ortho recommendations Orthopedics following No plan for surgical intervention Follow up in office 1 week after discharge # T12 compression fracture: Lumbar XR: Severe lumbar spondylosis with wedge compression fracture of T12, age indeterminant Dr. Goode was consulted_ no acute intervention required at this time Recommend TLSO brace for comfort, does not have to be worn at all times # Atrial fibrillation: - chronic, remains in afib - Current home medication: diltiazem 300 mg daily and metoprolol 50 mg daily - Anticoagulation: eliquis 5 mg BID - Medical Office Clerk: Dr. Edouard ramos # DVT (deep venous thrombosis) Chronic, continue Eliquis fall/bleeding risk # Rheumatoid arthritis: Chronic, continue Imuran, prednisone and hydroxchloroquine # Hypothyroidism: Chronic, continue levothyroxine # Acute UTI: - Chronic suprapubic catheter for urinary retention - UA: cloudy appearance with 2+ blood, positive nitrates, 3+ leukocytes, 21-50 RBC, 51-100 WBC, no bacteria or squamous cells seen. UC obtained on 07/17: gram negative bacilli with sensitivities pending - previous micro reviewed 03/26/24: MRSA resistant to oxacillin - started on Rocephin on 07/17 Remains on rocephin pending culture sensitivities. 07/22 -urine culture report is back - positive for pseudomonas aeruginosa. IV antibiotics were switched- Rocephin stopped- and Ceftazidime 2 gm q12h started- total 14 doses- end date 07/28, next dose 07/24- 1800. care coordination updated as pt is needing a placement ([facility]). midline order placed OK to remove midline once antibiotics course completed Status at Discharge Functional status at discharge: uses cane/walker Overall status at discharge: patient is progressing back to baseline Time Spent with Patient Time attestation: Total time spent providing and/or coordinating discharge services: Time spent: Greater than 30 minutes Exam Narrative: General: female in no acute respiratory distress who is nontoxic appearing, lying semi recumbent in bed. HEENT: Normocephalic. Atraumatic. Extraocular movement intact. Sclera clear and anicteric. No facial asymmetry. Chest: Lungs are slightly diminished to auscultation bilateral bases. Speaking full sentences. CV: Heart was irregularly irregular rate and rhythm. Abd: Abdomen was soft. Nontender. Nondistended. Positive bowel sounds. Suprapubic catheter yet with no surrounding erythema edema or warmth. Ext: No clubbing, cyanosis, or edema. DP pulses bilaterally. Neuro: Patient is alert and oriented x4. Strength is symmetrical in both upper and lower extremities. Speech is clear. Const: General: comfortable DS: Data Data Completed and Pending Labs on day of discharge: Labs from last 24 hours 07/24/25 07/23/25 04:35 11:22 WBC 8.1 RBC 2.73 L Hgb 8.1 L 8.0 L Hct 27.2 L 26.8 L MCV 99.6 MCH 29.7 MCHC 29.8 L RDW 14.2 Plt Count 222 MPV 9.4 Sodium 137 Potassium 3.1 L Chloride 96 L Carbon Dioxide 34 H Anion Gap 7 BUN 48 H Creatinine 1.15 H Estim Creat Clear Calc 40 Estimated GFR 46 L Glucose 100 Calcium 9.8 Total Bilirubin 0.3 AST 25 ALT 12 Alkaline Phosphatase 43 Total Protein 6.2 L Albumin 3.4 L Preliminary micro results at discharge 07/21/25 16:02 Blood Culture - Preliminary Blood 07/21/25 16:08 Blood Culture - Preliminary Blood Discharge Plan Discharge Attending physician on discharge: Richard Gandhi Consulting providers: Domo Webb; Ivette Robbins Discharging Clinician: Shea Rivera Patient Disposition: SNF Activity: march shower Diet: heart healthy Patient Language: Azeri Stand Alone Forms: General Discharge Information Discharge Medications: New hydrocodone-acetaminophen 7.5-325 mg Tablet 1 tablet PO Q4H PRN (Reason: Pain Rated 7-10) Qty: 10 0RF docusate sodium 100 mg Capsule 100 mg PO Q12HR Qty: 7 0RF ceftazidime 2 gram recon soln 2 g IV Q12H 4 Days Rx Instructions: 8 more doses- next one 07/24 1800, last dose on 07/28. OK ok to remove midline once last dose infused. Continued furosemide 80 mg tablet 80 mg PO DAILY azathioprine 50 mg tablet 50 mg PO DAILY@0800 acetaminophen [Tylenol] 325 mg capsule 650 mg PO Q6H PRN (Reason: Pain) prednisone 2.5 mg tablet 2.5 mg PO DAILY Eliquis 5 mg tablet 5 mg PO BID 90 Days Qty: 180 1RF metoprolol succinate 50 mg tablet extended release 24 hr 100 mg PO DAILY Rx Instructions: XL metoprolol succinate 100 mg tablet extended release 24 hr 100 mg PO DAILY hydroxychloroquine 200 mg tablet 200 mg PO BID Patient Comments: AM dose taken cyanocobalamin (vitamin B-12) 1,000 mcg Tablet 1,000 mcg PO DAILY Patient Comments: QAM cholecalciferol (vitamin D3) 25 mcg (1,000 unit) Capsule 2,000 mcg PO DAILY Patient Comments: QAM Calcium 600-D3 Plus (mag-zinc) 1 tablet PO BID diltiazem HCl 300 mg Capsule,Extended Release 24hr 300 mg PO QAM Qty: 30 0RF furosemide 40 mg Tablet 40 mg PO DAILY colestipol 1 gram tablet 1 g PO HS Rx Instructions: TAKE 1 TABLET BY MOUTH DAILY duloxetine 20 mg capsule,delayed release(DR/EC) 40 mg PO DAILY alendronate [Fosamax] 70 mg tablet 70 mg PO WEEKLY Rx Instructions: on saturdays alendronate [Fosamax] 70 mg tablet 70 mg PO WEEKLY Qty: 12 1RF Rx Instructions: saturdays magnesium 250 mg tablet 250 mg PO DAILY Qty: 90 1RF tramadol 50 mg tablet 50 mg PO Q8H PRN (Reason: pain) Qty: 90 1RF potassium chloride 20 mEq tablet,ER particles/crystals See Rx Instructions .ROUTE .COMPLEX Qty: 180 1RF Dose Instruction: TAKE 1 TABLET BY MOUTH TWICE DAILY Rx Instructions: TAKE 1 TABLET BY MOUTH TWICE DAILY pravastatin 80 mg tablet See Rx Instructions .ROUTE .COMPLEX Qty: 90 1RF Dose Instruction: TAKE 1 TABLET BY MOUTH AT BEDTIME Rx Instructions: TAKE 1 TABLET BY MOUTH AT BEDTIME pantoprazole 40 mg tablet,delayed release (DR/EC) See Rx Instructions .ROUTE .COMPLEX Qty: 90 1RF Dose Instruction: TAKE 1 TABLET(40 MG) BY MOUTH DAILY Rx Instructions: TAKE 1 TABLET(40 MG) BY MOUTH DAILY levothyroxine 112 mcg tablet See Rx Instructions .ROUTE .COMPLEX Qty: 90 0RF Dose Instruction: TAKE ONE TABLET BY MOUTH DAILY Rx Instructions: TAKE ONE TABLET BY MOUTH DAILY Discontinued cephalexin 250 mg capsule 250 mg PO DAILY Date of admission: 07/18/25 11:48 Primary Care Provider: Timothy Donis Admitting Provider: Richard Gandhi Attending physician on admission: Richard Gandhi Condition: Stable Quality VTE Prophylaxis VTE prophylaxis: pharmacologic ordered (Remains on home eliquis ) Hospitalist MIPS Heart Failure (Exclusion) Patient has history of Heart Transplant or Left Ventricular Assistive Device?: No IF YES, STOP HERE Heart Failure (Qualifier) Patient has current or prior documentation of LVEF less than or equal to 40%, or mod/servere depressed LVSF?: No IF NO, STOP HERE
[2025-07-24] MEDS: METOPROLOL SUCCINATE EXT REL 100 MG TABCR PO (08:57)
[2025-07-24] MEDS: HYDROXYCHLOROQUINE SULFATE 200 MG TABLET PO ×2 (08:57→16:18)
[2025-07-24] MEDS: APIXABAN 5 MG TABLET PO (08:58)
[2025-07-24] MEDS: METOPROLOL SUCCINATE EXT REL 50 MG TABCR PO (08:58)
[2025-07-24] MEDS: DOCUSATE SODIUM 100 MG CAPSULE PO (08:58)
[2025-07-24] MEDS: FUROSEMIDE 80 MG TABLET PO (08:58)
[2025-07-24] MEDS: CEFTAZIDIME IVPB (08:59)
[2025-07-24] MEDS: SODIUM CHLORIDE 0.9% IVPB (08:59)
[2025-07-24] MEDS: FUROSEMIDE 40 MG TABLET PO (08:59)
[2025-07-24] MEDS: POTASSIUM CHLORIDE 20 MEQ PACKET (FOR LIQUID) PO (08:59)
[2025-07-24] MEDS: dilTIAZem HCL CD 300 MG CAP.24HR PO (08:59)
[2025-07-24] MEDS: LACTULOSE 20 GM/30 ML UDC PO (09:00)
[2025-07-24] MEDS: BISACODYL 10 MG SUPPOSITORY RECTAL (12:50)
[2025-07-24] MEDS: POTASSIUM CHLORIDE 20 MEQ PACKET (FOR LIQUID) 40 MEQ PO (13:07)
== END 2025-07-24 16:50 | DRG 536 ==
LOC: ANHED 15:27 → ANH2MED 18:12
PROVIDERS: Nurse Practitioner; Nurse Practitioner Gerontology; Student in an Organized Health Care Education/Training Program; Admitting Provider General Practice; Emergency Provider Emergency Medicine; PCP Family Medicine; Visit Provider General Practice
DX: S32.591A Other specified fracture of right pubis, initial encounter for closed fracture (principal); S22.080A Wedge compression fracture of T11-T12 vertebra, initial encounter for closed fracture; N39.0 Urinary tract infection, site not specified; J96.11 Chronic respiratory failure with hypoxia; I13.0 Hypertensive heart and chronic kidney disease with heart failure and stage 1 through stage 4 chronic kidney disease, or unspecified chronic kidney disease; I48.20 Chronic atrial fibrillation, unspecified; I50.32 Chronic diastolic (congestive) heart failure; M87.852 Other osteonecrosis, left femur; Z68.41 Body mass index [BMI] 40.0-44.9, adult; J98.11 Atelectasis; W18.2XXA Fall in (into) shower or empty bathtub, initial encounter; B96.5 Pseudomonas (aeruginosa) (mallei) (pseudomallei) as the cause of diseases classified elsewhere; M06.9 Rheumatoid arthritis, unspecified; E03.9 Hypothyroidism, unspecified; J44.9 Chronic obstructive pulmonary disease, unspecified; D64.9 Anemia, unspecified; N18.30 Chronic kidney disease, stage 3 unspecified; M16.0 Bilateral primary osteoarthritis of hip; E66.01 Morbid (severe) obesity due to excess calories; R73.03 Prediabetes; E55.9 Vitamin D deficiency, unspecified; Z96.653 Presence of artificial knee joint, bilateral; G47.33 Obstructive sleep apnea (adult) (pediatric); Z99.81 Dependence on supplemental oxygen; Z79.01 Long term (current) use of anticoagulants; Z99.89 Dependence on other enabling machines and devices; Z86.718 Personal history of other venous thrombosis and embolism; Z86.711 Personal history of pulmonary embolism; Z86.16 Personal history of COVID-19; Z87.19 Personal history of other diseases of the digestive system; Z90.49 Acquired absence of other specified parts of digestive tract; Z90.89 Acquired absence of other organs
CPT/HCPCS: 36415; 36569; 72100; 73521; 80048; 80053; 81001; 85014; 85018; 85025; 85027; 85610; 85730; 87040; 87086; 96365; 96374; 96375; 96376; 97110; 97116; 97162; 97166; 97530; 97535; 99285; A9270; C1751; G0378; J0696; J0713; J1885; J2003; J2270

== ENCOUNTER 2025-08-02 15:15 | Inpatient (IN) | payer MEDICARE, SELFPAY ==
[2025-08-02] VITALS (10 sets, daily range): BP systolic 132; BP diastolic 80–93; PULSE 61–76; RESP 17–28; TEMP 36.4; O2SAT 98–100; BMI 41.1
--- NOTE | ~2025-08-02 | CT_ITS ---
EXAMINATION: CT diagnostic chest wo juan, 08/02/2025 17:05 CDT HISTORY: pneumonia COMPARISON: Comparison 03/22/2023. TECHNIQUE: CT scan of the chest was performed without IV contrast. One or more of the following dose reduction techniques were used: automated exposure control, adjustment of the mA and/or kV according to patient size, use of iterative reconstruction technique. FINDINGS: Coronary artery calcifications. (msn13) LUNGS: No tracheomalacia. No bronchiectasis. Moderate emphysematous changes bilaterally with bilateral pulmonary fibrotic changes with early honeycombing. There are bullous formation noted. There are scattered ill-defined areas of density with some micronodules some of which demonstrate a tree-in-bud d istribution with scattered areas of groundglass attenuation. Trace bilateral pleural effusions. HEART AND PERICARDIUM: Mild cardiomegaly. Trace pericardial effusion. AORTA: Normal caliber aorta. ADENOPATHY/MEDIASTINUM: Enlarged pretracheal lymph node 2 x 2 centimeters. LIMITED VIEWS OF THE ABDOMEN: Partially imaged probable right renal cyst 3 x 3 cm. OSSEOUS STRUCTURES: No sclerotic or lytic lesions. No acute rib fractures. Moderate loss of vertical height throughout with remote fractures T11 and T12, no acute fracture or subluxation. OVERLYING SOFT TISSUES: Unremarkable. THYROID: The thyroid is unremarkable. IMPRESSION: Chronic changes detailed above with superimposed probable bronchopneumonia. Follow-up is suggested to assess improvement. Reviewed, dictated and finalized at location A. IMPRESSION: Chronic changes detailed above with superimposed probable bronchopneumonia. Fol low-up is suggested to assess improvement.
--- NOTE | ~2025-08-02 | XR_ITS ---
XR chest 1V portable 08/02/2025 15:41 Indication: Shortness of breath Procedure: AP portable chest Comparison: Comparison to multiple prior studies sequentially, with oldest reviewed study dated 04/05/2023. Findings: There is extensive chronic bilateral airspace consolidation with relative sparing of the right lung base. Elevated right diaphragm. No significant effusion or pneumothorax. No acute osseous abnormality. Impression: 1: Chronic extensive bilateral airspace consolidation. Differential diagnosis includes organizing pneumonia, chronic aspiration pneumonia, atypical infection, sarcoidosis and chronic eosinophilic pneumonia. Reviewed, dictated and finalized at location O. Impression: 1: Chronic extensive bilateral airspace consolidation. Differential diagnosis i ncludes organizing pneumonia, chronic aspiration pneumonia, atypical infection, sarcoidosis and chronic eosinophilic pneumonia.
--- NOTE | 2025-08-02 15:31 | ECG_ITS ---
Test Date: 2025-08-02 15:35:24 Measurements Intervals [place] Rate: 73 P: 0 ND: 0 QRS: -19 QRSD: 115 T: 13 QT: 427 QTc: 472 Interpretive Statements ATRIAL FIBRILLATION MODERATE INTRAVENTRICULAR CONDUCTION DELAY [110+ ms QRS DURATION] NONSPECIFIC ST & T-WAVE ABNORMALITY ABNORMAL RHYTHM ECG No previous ECG available for comparison Electronically Signed On 08-04-2025 15:20:14 CDT by Obed Sands M.D.
[2025-08-02 15:45] LABS: Hematocrit 25.8 % (37.0-47.0); Hemoglobin 7.4 g/dL (12.0-15.0); Immature Granulocyte Percent A 0.6 % (0-0.5); Lymphocytes Absolute Auto 0.71 K/mm3 (0.9-3.2); Mean Corpuscular HGB Conc 28.7 g/dl (32-36); Mean Corpuscular Hemoglobin 30.2 pg (26-34); Mean Corpuscular Volume 105.3 fl (80-100); Nucleated Red Blood Cells Absolute Auto 0.000 K/mm3 (0.0-0.012); Nucleated Red Blood Cells Perc 0.0 % (0.0-0.2); Platelet Count Result 308 k/mm3 (150-375); Red Blood Count 2.45 M/mm3 (4.2-5.4); White Blood Count 11.7 K/mm3 (4.5-10.0)
[2025-08-02 16:05] LABS: Alanine Aminotransferase 11 U/L (6-35); Albumin Level 3.7 g/dL (3.5-5.1); Alkaline Phosphatase 100 U/L (38-126); Aspartate Amino Transferase 25 U/L (14-36); Bilirubin,Total 0.4 mg/dL (0.2-1.3); Blood Urea Nitrogen 46 mg/dL (7-17); Calcium 9.5 mg/dL (8.4-10.2); Carbon Dioxide > 40 mmol/L (22-30); Chloride 95 mmol/L (98-107); Estimated CRCL calculation 41 ml/min; Estimated Glomerular Filt Rate 45; Glucose 113 mg/dL (65-110); Potassium 5.0 mmol/L (3.4-5.0); Sodium 138 mmol/L (137-145); Total Protein 6.5 g/dL (6.3-8.2)
[2025-08-02 16:14] LABS: Band Neutrophils Percent 0 % (0-6); Schistocytes None Seen
[2025-08-02 16:15] LABS: Anisocytosis 1+; Hypochromasia 1+; Macrocytosis 1+ (NORMAL)
--- NOTE | 2025-08-02 17:01 | ED_ITS ---
HPI - General Adult General Chief complaint: Shortness of Breath/Dyspnea Stated complaint: SOB Time Seen by Provider: 08/02/25 15:54 History of Present Illness HPI narrative: 75-year-old female presenting to the emergency department for evaluation for worsening shortness breath over last 24 hours. Patient does have histor chronic kidney disease, congestive heart failure, morbid obesity, high cholesterol, hypothyroidism, hypertension, hypoxia. Patient only on 4 L of oxygen by nasal cannula but did need to get bumped up to 6 L this morning. At time of initial evaluation patient is saturating well on 6 L but does report increased work of breathing. Patient also does have a suprapubic catheter and does have a large amount of sediment within the catheter. Related Data Home Medications ?Medication ?Instructions ?Recorded ?Confirmed ?Last Taken ?Type Calcium 600-D3 Plus (mag-zinc) 1 tablet PO BID 2 07/17/25 07/17/25 History cholecalciferol (vitamin D3) 25 2,000 mcg PO DAILY 07/17/25 07/17/25 History mcg (1,000 unit) capsule cyanocobalamin (vitamin B-12) 1,000 mcg PO DAILY 07/2107/17/25 07/17/25 History 1,000 mcg tablet hydroxychloroquine 200 mg tablet 200 mg PO BID 2 07/17/25 07/17/25 History acetaminophen 325 mg capsule 650 mg PO Q6H PRN Pain 07/17/25 07/17/25 History (Tylenol) metoprolol succinate 50 mg 100 mg PO DAILY 03/22/2307/17/25 History tablet,extended release 24 hr metoprolol succinate 100 mg 100 mg PO DAILY 08/28/23 0 07/17/25 07/17/25 History tablet,extended release 24 hr prednisone 2.5 mg tablet 2.5 mg PO DAILY 08/13/2407/17/25 History furosemide 80 mg tablet 80 mg PO DAILY 10/01/2406/2607/17/25 History azathioprine 50 mg tablet 50 mg PO DAILY@0800 02/18/25 07/17/25 07/17/25 History colestipol 1 gram tablet 1 g PO HS 07/17/25 07/17/25 07/17/25 History duloxetine 20 mg capsule,delayed 40 mg PO DAILY 07/17/25 07/17/25 History release furosemide 40 mg tablet 40 mg PO DAILY 07/17/2506/2607/17/25 History alendronate 70 mg tablet (Fosamax) 70 mg PO WEEKLY 07/18/25 Unknown History Allergies Allergy/AdvReac Type Severity Reaction Status Date / Time No Known Allergies Allergy Verified 08/02/25 15:50 Review of Systems 2 Review of Systems: All systems reviewed & are unremarkable except as noted in HPI and below PMFSH Past Medical History Medical History Chronic diarrhea Fecal occult blood test positive Chronic anticoagulation Chronic kidney disease, stage 3 Chronic anemia Deep venous thrombosis (2004) Degenerative joint disease Chronic respiratory failure with hypoxia, on home oxygen therapy On 2 to 4 L nasal cannula. Chronic diastolic congestive heart failure Echocardiogram in 06/2022 showed an EF 50 to 55% and diastolic dysfunction. Osteoporosis Vitamin D deficiency Paroxysmal atrial fibrillation Morbid obesity Interstitial lung disease Pre-diabetes Post menopausal syndrome Stress incontinence Shingles Hearing loss Rheumatoid arthritis Depression with anxiety Nonspecific interstitial pneumonitis Pulmonary embolism (2004) History of COVID-19 Obstructive sleep apnea on CPAP Hypothyroidism Hyperlipidemia Essential hypertension Diverticulosis Surgical History Surgical History History of cholecystectomy History of parathyroidectomy History of section History of arthroscopy of right knee History of tonsillectomy and adenoidectomy History of bilateral knee replacement History of cardiac catheterization Family History Family History Mother Hypertension Father Pulmonary emboli Rheumatoid arthritis Mother , at 91 due to old age Hypertension Father , at 58 due to PE Family history of rheumatoid arthritis Family history of pulmonary embolism Grandparent Cerebrovascular accident Other Family history of malignant neoplasm Social History Social History Social History: She currently resides at [facility] facility she lived with her daughter Katya in her house prior to going into the rehab facility. Originally from [place], [place]. Surrogate medical decision maker: Mae Cash, daughter. Code status: Full code. Smoking status: Never smoker Second hand tobacco smoke exposure: Yes Alcohol intake: never Substance use: never Substance use type: does not use Do You Feel Safe in your Home?: Yes Lack of Transportation: No Lack of Food: Never True Current Housing: I Have Housing Concerned About Future Housing: No Difficulty Paying Gas/Electric Bills: No Difficulty Paying for Meds: No Currently Unemployed: No Education: Decline to Answer Difficulty w/ Childcare or Family Care: No Living arrangements: with family Additional living arrangements comments: LIVES WITH PAOLA BRITT Occupation/Education: retired Gender identity (if verbalized by the patient): Female Spiritual care concerns: No Agree to blood products: Yes Exam 2 Narrative: APPEARANCE: Ill-appearing HEAD: normocephalic, atraumatic. EYES: PERRLA/EOMI, conjunctivae clear. NOSE: Normal no drainage EARS:TMS clear with good light reflex. THROAT: Pharynx clear, no exudate. NECK: Supple. No adenopathy, no masses. RESPIRATORY: Increased work of breathing, decreased lung sounds CARDIOVASCULAR: Regular rate and rhythm without murmurs rubs or gallops. ABDOMINAL: Soft, nontender, nondistended, normal bowel sounds MUSCULOSKELETAL: Moves all extremities. Strength/ROM intact, No edema, No calf tenderness. NEURO: Alert. Cranial nerves II through XII intact. Good gait. Good coordination SKIN: Warm, dry. Normal Color Course Vital Signs Vital signs: Vital Signs Temperature 97.6 F 08/02/25 15:15 Pulse Rate 74 08/02/25 15:15 Respiratory Rate 22 H 08/02/25 15:15 Blood Pressure 132/80 08/02/25 15:15 Pulse Oximetry 100 08/02/25 15:15 Oxygen Delivery Nasal Cannula 08/02/25 15:15 Oxygen Flow Rate 6 08/02/25 15:15 Temperature 97.6 F 08/02/25 15:15 Pulse Rate 71 08/02/25 18:05 Respiratory Rate 17 08/02/25 18:05 Blood Pressure 132/93 H 08/02/25 18:05 Pulse Oximetry 100 08/02/25 18:05 Oxygen Delivery BiPAP 08/02/25 18:01 Oxygen Flow Rate 6 08/02/25 15:15 Medical Decision Making [facility] Narrative Medical decision making narrative: 75-year-old female with significant past medical history presented emergency department for evaluation for hallucinations, altered mental status and increased O2 requirement. Chest x-ray and chest CT were concerning for underlying pneumonia. UA was concerning for urinary tract infection. Patient does have a suprapubic urinary catheter and this was changed to the emergency department. Patient does have previous urine cultures showing Pseudomonas aeruginosa with multiple resistances. Patient was started on meropenem and blood cultures were ordered. Case was discussed with hospitalist patient was accepted for admission. Patient does have evidence of hypercapnia and patient was started on BiPAP with pressure for 14. Patient family were updated on the results of the workup and plan for admission. Questions concerns were addressed. Critical Care Procedure Note Authorized and Performed by: Juan Salmon Total critical care time: Approximately 36 minutes Due to a high probability of clinically significant, life threatening deterioration, the patient required my highest level of preparedness to intervene emergently and I personally spent this critical care time directly and personally managing the patient. This critical care time included obtaining a history; examining the patient; pulse oximetry; ordering and review of studies; arranging urgent treatment with development of a management plan; evaluation of patient's response to treatment; frequent reassessment; and, discussions with other providers. This critical care time was performed to assess and manage the high probability of imminent, life-threatening deterioration that could result in multi-organ failure. It was exclusive of separately billable procedures and treating other patients and teaching time. Please see MDM section and the rest of the note for further information on patient assessment and treatment. Differential Diagnosis Differential Diagnosis: Pneumonia, UTI, hypercapnia, respiratory failure, COVID, RSV, influenza Vital Signs Vital Signs: Vital Signs Temperature 97.6 F 08/02/25 15:15 Pulse Rate 74 08/02/25 15:15 Respiratory Rate 22 H 08/02/25 15:15 Blood Pressure 132/80 08/02/25 15:15 Pulse Oximetry 100 08/02/25 15:15 Oxygen Delivery Nasal Cannula 08/02/25 15:15 Oxygen Flow Rate 6 08/02/25 15:15 Temperature 97.6 F 08/02/25 15:15 Pulse Rate 71 08/02/25 18:05 Respiratory Rate 17 08/02/25 18:05 Blood Pressure 132/93 H 08/02/25 18:05 Pulse Oximetry 100 08/02/25 18:05 Oxygen Delivery BiPAP 08/02/25 18:01 Oxygen Flow Rate 6 08/02/25 15:15 Lab Data Lab results reviewed: Yes I reviewed the patient's lab results. 08/02/25 15:37 08/02/25 15:37 Labs: Lab Results 08/02/25 08/02/25 08/02/25 Range/Units 15:37 16:54 17:39 WBC 11.7 H (4.5-10.0) K/mm3 RBC 2.45 L (4.2-5.4) M/mm3 Hgb 7.4 L (12.0-15.0) g/dL Hct 25.8 L (37.0-47.0) % MCV 105.3 H (80-100) fl MCH 30.2 (26-34) pg MCHC 28.7 L (32-36) g/dl RDW 14.5 (11.5-14.5) % Plt Count 308 (150-375) k/mm3 MPV 9.8 (7.4-10.4) fl Immature Gran % (Auto) 0.6 H (0-0.5) % Neut % (Auto) 82.8 H (45.5-73.1) % Lymph % (Auto) 6.1 L (18.3-44.2) % Crockett % (Auto) 9.8 H (2.6-8.5) % Eos % (Auto) 0.3 (0-4.4) % Baso % (Auto) 0.4 (0.2-1.2) % Lymph # (Auto) 0.71 L (0.9-3.2) K/mm3 Crockett # (Auto) 1.2 H (0.1-0.6) K/mm3 Eos # (Auto) 0.0 (0-0.3) K/mm3 Baso # (Auto) 0.1 (0.0-0.1) K/mm3 Abs Immat Gran (auto) 0.07 H (0.00-0.031) K/mm3 Absolute Neuts (auto) 9.7 H (1.3-6.7) K/mm3 Absolute Nucleated RBC 0.000 (0.0-0.012) K/mm3 Band Neutrophils % 0 (0-6) % Nucleated RBC % 0.0 (0.0-0.2) % Platelet Estimate Adequate (Adequate) Hypochromasia 1+ Anisocytosis 1+ Macrocytosis 1+ (NORMAL) Schistocytes None seen Methemoglobin 0.3 (0-1.5) %THb Sodium 138 (137-145) mmol/L Potassium 5.0 (3.4-5.0) mmol/L Chloride 95 L (98-107) mmol/L Carbon Dioxide > 40 H (22-30) mmol/L Anion Gap (4-12) mmol/L BUN 46 H (7-17) mg/dL Creatinine 1.16 H (0.7-1.0) mg/dL Estim Creat Clear Calc 41 ml/min Estimated GFR 45 L (59 - ) Glucose 113 H (65-110) mg/dL Calcium 9.5 (8.4-10.2) mg/dL Total Bilirubin 0.4 (0.2-1.3) mg/dL AST 25 (14-36) U/L ALT 11 (6-35) U/L Alkaline Phosphatase 100 (38-126) U/L NT-Pro-B Natriuret Pep 4530 H (19.9-100) pg/mL Total Protein 6.5 (6.3-8.2) g/dL Albumin 3.7 (3.5-5.1) g/dL Urine Color (Yellow) Urine Appearance (Clear) Urine pH (5.0-9.0) Ur Specific Marissa (1.001-1.035) Urine Protein (Negative) mg/dL Urine Glucose (UA) (Negative) mg/dL Urine Ketones (Negative) mg/dL Ur Blood (Man) (Negative) Urine Nitrate (Negative) Urine Bilirubin (Negative) Urine Urobilinogen (<2.0) mg/dL Add Ur Microanalysis Leukocyte Esterase Rfl (Negative) JAMSHID/UL Urine RBC (0-2) /hpf Urine WBC (0-3) /hpf Ur Squamous Epith Cells (Few) /hpf Urine Bacteria /hpf Urine Casts 08/02/25 Range/Units 17:40 WBC (4.5-10.0) K/mm3 RBC (4.2-5.4) M/mm3 Hgb (12.0-15.0) g/dL Hct (37.0-47.0) % MCV (80-100) fl MCH (26-34) pg MCHC (32-36) g/dl RDW (11.5-14.5) % Plt Count (150-375) k/mm3 MPV (7.4-10.4) fl Immature Gran % (Auto) (0-0.5) % Neut % (Auto) (45.5-73.1) % Lymph % (Auto) (18.3-44.2) % Crockett % (Auto) (2.6-8.5) % Eos % (Auto) (0-4.4) % Baso % (Auto) (0.2-1.2) % Lymph # (Auto) (0.9-3.2) K/mm3 Crockett # (Auto) (0.1-0.6) K/mm3 Eos # (Auto) (0-0.3) K/mm3 Baso # (Auto) (0.0-0.1) K/mm3 Abs Immat Gran (auto) (0.00-0.031) K/mm3 Absolute Neuts (auto) (1.3-6.7) K/mm3 Absolute Nucleated RBC (0.0-0.012) K/mm3 Band Neutrophils % (0-6) % Nucleated RBC % (0.0-0.2) % Platelet Estimate (Adequate) Hypochromasia Anisocytosis Macrocytosis (NORMAL) Schistocytes Methemoglobin (0-1.5) %THb Sodium (137-145) mmol/L Potassium (3.4-5.0) mmol/L Chloride (98-107) mmol/L Carbon Dioxide (22-30) mmol/L Anion Gap (4-12) mmol/L BUN (7-17) mg/dL Creatinine (0.7-1.0) mg/dL Estim Creat Clear Calc ml/min Estimated GFR (59 - ) Glucose (65-110) mg/dL Calcium (8.4-10.2) mg/dL Total Bilirubin (0.2-1.3) mg/dL AST (14-36) U/L ALT (6-35) U/L Alkaline Phosphatase (38-126) U/L NT-Pro-B Natriuret Pep (19.9-100) pg/mL Total Protein (6.3-8.2) g/dL Albumin (3.5-5.1) g/dL Urine Color Light red H (Yellow) Urine Appearance Turbid H (Clear) Urine pH 5.0 (5.0-9.0) Ur Specific Marissa 1.013 (1.001-1.035) Urine Protein 2+ H (Negative) mg/dL Urine Glucose (UA) Negative (Negative) mg/dL Urine Ketones Negative (Negative) mg/dL Ur Blood (Man) 3+ H (Negative) Urine Nitrate Negative (Negative) Urine Bilirubin Negative (Negative) Urine Urobilinogen 0.2 (<2.0) mg/dL Add Ur Microanalysis Reviewed Leukocyte Esterase Rfl 3+ H (Negative) JAMSHID/UL Urine RBC >100 H (0-2) /hpf Urine WBC >100 H (0-3) /hpf Ur Squamous Epith Cells Occasional (Few) /hpf Urine Bacteria Rare /hpf Urine Casts >20 ABG Data ABG results: 08/02/25 17:39 Puncture Site Left radial ABG pH 7.382 ABG pCO2 65.4 H* ABG pO2 70.8 L ABG PO2/FiO2 Ratio 1.77 ABG HCO3 38.0 H ABG O2 Saturation 93.4 L ABG O2 Content 10.9 L ABG Base Excess 11.3 A-a Gradient 139.2 Oxyhemoglobin 91.4 Carboxyhemoglobin 2.4 H Reduced Hemoglobin 5.9 H Total Hemoglobin 8.4 L O2 Delivery Device Nasal cannula O2 Liters/Min 5.0 FiO2 40 Imaging Data Radiologist's impression: Impressions Chest X-Ray 08/02/25 15:44 Impression: 1: Chronic extensive bilateral airspace consolidation. Differential diagnosis includes organizing pneumonia, chronic aspiration pneumonia, atypical infection, sarcoidosis and chronic eosinophilic pneumonia. Chest CT 08/02/25 17:21 IMPRESSION: Chronic changes detailed above with superimposed probable bronchopneumonia. Follow-up is suggested to assess improvement. Critical Care Time Critical Care Time Critical Care Time: Yes Total Critical Care Time: 36 Discharge Plan Discharge Clinical Impression: Hypoxia, Pneumonia, Acute UTI, Hypercapnia Patient Disposition: Still a Patient Condition: Serious
[2025-08-02] MEDS: ALBUTEROL SULFATE NEB 2.5 MG/3 ML INH INHALATION (17:18)
[2025-08-02 17:42] LABS: Alveolar/Arterial O2 Gradient 139.2 mmHg; Carboxyhemoglobin 2.4 % THb (0-2.0); Fractional Inspired Oxygen 40 %; HCO3 ABG 38.0 mEq/l (22.0-26.0); Methemoglobin ABG 0.3 %THb (0-1.5); Oxygen Content ABG 10.9 %vol (16.0-22.0); Oxygen Saturation ABG 93.4 % (95.0-100.0); PO2 ABG 70.8 mmHg (80.0-100.0); PO2 FiO2 Ratio Arterial Blood 1.77 %; Reduced Hemoglobin 5.9 %THb (0-5.0)
[2025-08-02 17:44] LABS: Liters per Minute 5.0 LPM; Modified Allen's Test Pass; PCO2 ABG 65.4 mmHg (35.0-45.0); Site Drawn LEFT RADIAL
[2025-08-02 18:06] LABS: NT Pro B Type Natriuretic Pept 4530 pg/mL (19.9-100)
[2025-08-02 18:12] LABS: Need Manual Microscopic Reviewed; Non Pathogenic Casts >20
[2025-08-02 18:14] LABS: Add Urine Microscopic? YES; Appearance Urine Turbid (Clear); Glucose Urine UA Negative (Negative); Leukocyte Esterase Ur 3+ LEU/UL (Negative); Nitrate Urine Negative (Negative); Specific Grav Ur 1.013 (1.001-1.035)
[2025-08-02] MEDS: FUROSEMIDE INJ 40 MG/4 ML VIAL IV PUSH ×2 (18:43→22:01)
[2025-08-02] MEDS: MEROPENEM 1 GM in SODIUM CHLORIDE 0.9% IV 100 ML 200 ML IVPB (18:44)
[2025-08-02] MEDS: AZITHROMYCIN IV 500 MG in SODIUM CHLORIDE 0.9% IV 250 ML IVPB (20:04)
--- NOTE | 2025-08-02 20:25 | ADMGEN ---
This patient, Ayanna Cash, was admitted to IMU Room 232-01. Patient/family oriented to hospital policies and general routines including ID bracelet, bed and alarms, visiting hours, pain management, procedures, bathroom and other care routines, personal items, smoking policy, room service/diet, and visiting hours. Information on how to activate the Rapid Response Team has been discussed. Patient/Family are encouraged to report perceived risks to care and to ask questions if they do not understand what they are told or what they should do.
--- NOTE | 2025-08-02 20:32 | WNDPHOTO ---
PHOTO ONLY - See Nursing Notes and/ or assessments for documentation.
[2025-08-02 21:34] LABS: CRP 3.3 mg/dL (<1.0); Magnesium 2.0 mg/dL (1.6-2.3)
[2025-08-02] MEDS: COLESTIPOL HCL 1 GM TABLET PO (21:58)
[2025-08-02] MEDS: HYDROcodone/acetaminophen (*CRX) 7.5-325 MG TABLET 1 TAB PO (21:59)
[2025-08-02] MEDS: PRAVASTATIN SODIUM 20 MG TABLET 80 MG PO (22:00)
[2025-08-02] MEDS: APIXABAN 5 MG TABLET PO (22:00)
--- NOTE | 2025-08-02 22:40 | PM.IMHP ---
H&P: HPI History of Present Illness Date/Time: 08/02/25 22:40 Chief Complaint: Increased shortness of breath Narrative: This is a 75-year-old female patient multiple chronic medical conditions as listed below who is admitted for findings of hypercapnic and hypoxic respiratory failure acute on chronic in nature with higher oxygen demand than she usually wears at baseline. Patient usually wears 4 liters/minute nasal cannula and had to be turned up to 6 liters/minute earlier today because she was found to be hypoxic at her facility. Patient complained of shortness of breath and heavy breathing over the past 24 hours which prompted the ER visit. Patient reports she usually lives at home alone but has been at [facility] for rehab after a fall with pelvic fractures. She has a chronic suprapubic catheter which was changed in ER. Patient reports that she has a CPAP machine but doesn't use it, stating she just wears her oxygen instead. Chest x-ray and CT scan indicative of pneumonia on top of chronic lung disease. Findings on workup also includes suspicion of urinary tract infection with greater than 100 white blood cells greater than 100 rbc's and 3+ leukocyte esterase. White blood cell mildly elevated at 11.7. Patient has a history of chronic anemia and her hemoglobin was noted to be 7.4 on admission. Renal function appears to be at patient baseline with creatinine 6 BUN 46 estimated GFR of 45 an estimated creatinine clearance of 41. Potassium noted to be at 5.0. Will hold her supplemental potassium temporarily. BNP elevated at 4530 though this falls roughly midpoint between her lowest and highest values. Trace bilateral pleural effusions noted on CT. Caution for fluid overload status with history of chronic diastolic dysfunction. Prior urine culture a few weeks ago grew Pseudomonas so patient was started on meropenem as well as a azithromycin for findings of tree in bud pneumonia overlying chronic lung disease fibrotic changes. Review of Systems Review of Systems: All systems reviewed & are unremarkable except as noted in HPI and below PMFSH Past Medical History Medical History Chronic diarrhea Fecal occult blood test positive Chronic anticoagulation Chronic kidney disease, stage 3 Chronic anemia Deep venous thrombosis (2004) Degenerative joint disease Chronic respiratory failure with hypoxia, on home oxygen therapy On 2 to 4 L nasal cannula. Chronic diastolic congestive heart failure Echocardiogram in 06/2022 showed an EF 50 to 55% and diastolic dysfunction. Osteoporosis Vitamin D deficiency Paroxysmal atrial fibrillation Morbid obesity Interstitial lung disease Pre-diabetes Post menopausal syndrome Stress incontinence Shingles Hearing loss Rheumatoid arthritis Depression with anxiety Nonspecific interstitial pneumonitis Pulmonary embolism (2004) History of COVID-19 Obstructive sleep apnea on CPAP Hypothyroidism Hyperlipidemia Essential hypertension Diverticulosis Surgical History Surgical History History of cholecystectomy History of parathyroidectomy History of section History of arthroscopy of right knee History of tonsillectomy and adenoidectomy History of bilateral knee replacement History of cardiac catheterization Family History Family History Mother Hypertension Father Pulmonary emboli Rheumatoid arthritis Mother , at 91 due to old age Hypertension Father , at 58 due to PE Family history of rheumatoid arthritis Family history of pulmonary embolism Grandparent Cerebrovascular accident Other Family history of malignant neoplasm Social History Social History Social History: She currently resides at [facility] she lived with her daughter Katya in her house prior to going into the rehab facility. Originally from [place], [place]. Surrogate medical decision maker: Mae Cash, daughter. Code status: Full code. Smoking status: Never smoker Second hand tobacco smoke exposure: Yes Alcohol intake: never Substance use: never Substance use type: does not use Do You Feel Safe in your Home?: Yes Lack of Transportation: No Lack of Food: Never True Current Housing: I Have Housing Concerned About Future Housing: No Difficulty Paying Gas/Electric Bills: No Difficulty Paying for Meds: No Currently Unemployed: No Education: Grade School Difficulty w/ Childcare or Family Care: No Living arrangements: with family Additional living arrangements comments: LIVES WITH PAOLA BRITT Occupation/Education: retired Gender identity (if verbalized by the patient): Female Spiritual care concerns: No Agree to blood products: Yes Meds Home Medications and Allergies Home Medications ?Medication ?Instructions ?Recorded ?Confirmed ?Type Calcium 600-D3 Plus (mag-zinc) 1 tablet PO BID 07/21/22 08/02/25 History cholecalciferol (vitamin D3) 25 2,000 mcg PO DAILY 07/21/22 08/02/25 History mcg (1,000 unit) capsule cyanocobalamin (vitamin B-12) 1,000 mcg PO DAILY 07/21/22 08/02/25 History 1,000 mcg tablet hydroxychloroquine 200 mg tablet 200 mg PO BID 07/21/22 08/02/25 History metoprolol succinate 50 mg 50 mg PO DAILY 03/22/23 08/02/25 History tablet,extended release 24 hr diltiazem HCl 300 mg 300 mg PO QAM #30 caps 04/11/23 08/02/25 Rx capsule,extended release 24 hr metoprolol succinate 100 mg 100 mg PO DAILY 08/28/23 08/02/25 History tablet,extended release 24 hr prednisone 2.5 mg tablet 2.5 mg PO DAILY 08/13/24 08/02/25 History furosemide 80 mg tablet 80 mg PO DAILY 10/01/24 08/02/25 History azathioprine 50 mg tablet 50 mg PO DAILY@0800 02/18/25 08/02/25 History magnesium 250 mg tablet 250 mg PO DAILY #90 tabs 04/02/25 08/02/25 Rx tramadol 50 mg tablet 50 mg PO Q8H PRN pain #90 tabs 04/16/25 08/02/25 Rx potassium chloride 20 mEq See Rx Instructions .Route 05/10/25 08/02/25 Rx tablet,extended release(part/cryst) .COMPLEX #180 tabs pravastatin 80 mg tablet See Rx Instructions .Route 05/17/25 08/02/25 Rx .COMPLEX #90 tabs pantoprazole 40 mg tablet,delayed See Rx Instructions .Route 06/11/25 08/02/25 Rx release .COMPLEX #90 tabs apixaban 5 mg tablet (Eliquis) 5 mg PO BID 3 months #180 tabs 07/06/25 08/02/25 Rx levothyroxine 112 mcg tablet See Rx Instructions .Route 07/16/25 08/02/25 Rx .COMPLEX #90 tabs colestipol 1 gram tablet 1 g PO HS 07/17/25 08/02/25 History duloxetine 20 mg capsule,delayed 40 mg PO DAILY 07/17/25 08/02/25 History release alendronate 70 mg tablet (Fosamax) 70 mg PO WEEKLY 07/18/25 08/02/25 History docusate sodium 100 mg capsule 100 mg PO Q12HR #7 caps 07/24/25 08/02/25 Rx hydrocodone 7.5 mg-acetaminophen 1 tablet PO Q4H PRN Pain Rated 07/24/25 08/02/25 Rx 325 mg tablet 7-10 #10 tabs acetaminophen 325 mg capsule 650 mg PO Q6H PRN pain 08/02/25 08/02/25 History arginine-vitamin C-vitamin E oral 4.5 g PO AC 08/02/25 08/02/25 History 4.5 gram-156 mg/9.2 gram powder pkt (Arginaid) collagenase clostridium histo. 250 1 applic topical DAILY 08/02/25 08/02/25 History unit/gram topical ointment (Santyl) silver sulfadiazine 1 % topical 1 applic topical BID 08/02/25 08/02/25 History cream (Silvadene) Allergies Allergy/AdvReac Type Severity Reaction Status Date / Time No Known Allergies Allergy Verified 08/02/25 15:50 Vital Signs Vital Signs - 24 hr 08/02/25 15:15 08/02/25 15:33 08/02/25 17:18 Temperature 36.4 C Pulse Rate 74 67 75 Respiratory Rate 22 H 28 H Blood Pressure 132/80 Pulse Oximetry 100 Oxygen Delivery Nasal Cannula Oxygen Flow Rate 6 08/02/25 17:25 08/02/25 18:01 08/02/25 18:05 Temperature Pulse Rate 76 61 71 Respiratory Rate 26 H 25 H 17 Blood Pressure 132/93 H Pulse Oximetry 100 100 Oxygen Delivery BiPAP Oxygen Flow Rate 08/02/25 20:20 Temperature Pulse Rate Respiratory Rate Blood Pressure Pulse Oximetry 98 Oxygen Delivery BiPAP Oxygen Flow Rate Exam Narrative: APPEARANCE: Ill-appearing HEAD: normocephalic, atraumatic. EYES: PERRLA/EOMI, conjunctivae clear. NOSE: Normal no drainage EARS:TMS clear with good light reflex. THROAT: Pharynx clear, no exudate. NECK: Supple. No adenopathy, no masses. RESPIRATORY: Increased work of breathing, decreased lung sounds, on BiPAP CARDIOVASCULAR: Regular rate and rhythm ABDOMINAL: Soft, nontender, nondistended, normal bowel sounds MUSCULOSKELETAL: Moves all extremities. Strength/ROM intact, No edema, No calf tenderness. NEURO: Alert. No focal deficits noted SKIN: Warm, dry. Normal Color H&P: Results Labs Labs: Short CBC 08/02/25 Range/Units 15:37 WBC 11.7 H (4.5-10.0) K/mm3 Hgb 7.4 L (12.0-15.0) g/dL Hct 25.8 L (37.0-47.0) % Plt Count 308 (150-375) k/mm3 BMP 08/02/25 15:37 Sodium 138 Potassium 5.0 Chloride 95 L Carbon Dioxide > 40 H BUN 46 H Creatinine 1.16 H Glucose 113 H Calcium 9.5 Liver Function 08/02/25 Range/Units 15:37 Total Bilirubin 0.4 (0.2-1.3) mg/dL AST 25 (14-36) U/L ALT 11 (6-35) U/L Alkaline Phosphatase 100 (38-126) U/L Albumin 3.7 (3.5-5.1) g/dL Urine 08/02/25 Range/Units 17:40 Urine Color Light red H (Yellow) Urine Appearance Turbid H (Clear) Urine pH 5.0 (5.0-9.0) Ur Specific [place] 1.013 (1.001-1.035) Urine Protein 2+ H (Negative) mg/dL Urine Glucose (UA) Negative (Negative) mg/dL ABG ABG results: PH 7.382 pCO2 elevated at 65.4 PO2 decreased at 70.8 on 5 liters/minute HC03 elevated at 38 Attestation: I personally reviewed and interpreted this ABG as follows: Interpretation: Compensated respiratory acidosis Pulse Oximetry SpO2 results: 98% on BiPAP Attestation: I personally reviewed and interpreted this pulse oximetry as follows: Interpretation: Patient continues to require supplemental oxygen, baseline 4 liters/minute was requiring 5-6 liters/minute before BiPAP ECG Attestation: I personally reviewed and interpreted this ECG as follows: ECG completion date: 08/02/25 ECG completion time: 15:35 Prior ECG tracings: not available for review Interpretation: Atrial fibrillation rate of 73 QRS duration 115 QTC 472 QRS axis -19? no STEMI, T-wave flattening in multiple leads and borderline prolonged QTC Imaging Chest x-ray: Radiologist's impression: XR chest 1V portable 08/02/2025 15:41 Indication: Shortness of breath Procedure: AP portable chest Comparison: Comparison to multiple prior studies sequentially, with oldest reviewed study dated 04/05/2023. Findings: There is extensive chronic bilateral airspace consolidation with relative sparing of the right lung base. Elevated right diaphragm. No significant effusion or pneumothorax. No acute osseous abnormality. Impression: 1: Chronic extensive bilateral airspace consolidation. Differential diagnosis includes organizing pneumonia, chronic aspiration pneumonia, atypical infection, sarcoidosis and chronic eosinophilic pneumonia. Reviewed, dictated and finalized at location O. CT scan - chest: Radiologist's impression: EXAMINATION: CT diagnostic chest wo con, 08/02/2025 17:05 CDT HISTORY: pneumonia COMPARISON: Comparison 03/22/2023. TECHNIQUE: CT scan of the chest was performed without IV contrast. One or more of the following dose reduction techniques were used: automated exposure control, adjustment of the mA and/or kV according to patient size, use of iterative reconstruction technique. FINDINGS: Coronary artery calcifications. ([id number]) LUNGS: No tracheomalacia. No bronchiectasis. Moderate emphysematous changes bilaterally with bilateral pulmonary fibrotic changes with early honeycombing. There are bullous formation noted. There are scattered ill-defined areas of density with some micronodules some of which demonstrate a tree-in-bud distribution with scattered areas of groundglass attenuation. Trace bilateral pleural effusions. HEART AND PERICARDIUM: Mild cardiomegaly. Trace pericardial effusion. AORTA: Normal caliber aorta. ADENOPATHY/MEDIASTINUM: Enlarged pretracheal lymph node 2 x 2 centimeters. LIMITED VIEWS OF THE ABDOMEN: Partially imaged probable right renal cyst 3 x 3 cm. OSSEOUS STRUCTURES: No sclerotic or lytic lesions. No acute rib fractures. Moderate loss of vertical height throughout with remote fractures T11 and T12, no acute fracture or subluxation. OVERLYING SOFT TISSUES: Unremarkable. THYROID: The thyroid is unremarkable. IMPRESSION: Chronic changes detailed above with superimposed probable bronchopneumonia. Follow-up is suggested to assess improvement. Reviewed, dictated and finalized at location A. Assessment and Plan Assessment and plan (1) Acute on chronic respiratory failure with hypoxia and hypercapnia: Code(s): J96.21 - Acute and chronic respiratory failure with hypoxia; J96.22 - Acute and chronic respiratory failure with hypercapnia Status: Acute Assessment and Plan: -Patient wears 4 LPM NC at baseline and has hx STARR on CPAP -Today noted desaturation requiring move to 6 LPM at facility -CXR/CT scan indicate tree in bud pneumonia pattern on baseline chronic lung fibrosis -ABG showed hypercapnia and hypoxemia on 5 LPM -Meropenem and azithromycin started for PNA and UTI with prior Pseudamonas -Consult Pulmonology due to new BiPAP requirement and acute overlaying chronic lung findings -Repeat ABG in AM (2) Pneumonia: Code(s): J18.9 - Pneumonia, unspecified organism Status: Acute Assessment and Plan: -See above (3) Urinary tract infection: Code(s): N39.0 - Urinary tract infection, site not specified Status: Acute Assessment and Plan: -Abnormal UA with hematuria and >100 WBC and 3+ leukocyte esterase -Suprapubic catheter, large amount of sediment noted, changed in ER -Prior urine culture 2 weeks ago was Pseudamonas but she has also had MRSA, VRE, Klebsiella and E. coli cultures on file (4) Atrial fibrillation: Code(s): I48.91 - Unspecified atrial fibrillation Status: Chronic Assessment and Plan: -Continue diltiazem and metoprolol for rate control -Eliquis for VTE prophylaxis, this is a home medication (5) Chronic kidney disease, stage 3: Code(s): N18.30 - Chronic kidney disease, stage 3 unspecified Status: Chronic Assessment and Plan: -Renal function appears at baseline on admission with mild worsening of baseline chronic anemia (6) Chronic anemia: Code(s): D64.9 - Anemia, unspecified Status: Chronic Assessment and Plan: -Multifactorial including CKD, multiple chronic diseases -Prior iron studies and B12/Folate testing normal -No acute blood loss suspected/noted (7) Rheumatoid arthritis: Code(s): M06.9 - Rheumatoid arthritis, unspecified Status: Chronic Assessment and Plan: -Continue low dose prednisone and hydroxychloroquine (8) Obstructive sleep apnea on CPAP: Code(s): G47.33 - Obstructive sleep apnea (adult) (pediatric); Z99.89 - Dependence on other enabling machines and devices Status: Chronic Assessment and Plan: -Admitted on BiPAP for hypercapnic respiratory failure (9) Essential (primary) hypertension: Code(s): I10 - Essential (primary) hypertension Status: Chronic Assessment and Plan: -Blood pressure reviewed and stable, continue home medications as appropriate (10) Hypothyroidism: Code(s): E03.9 - Hypothyroidism, unspecified Status: Chronic Assessment and Plan: -Continue levothyroxine (11) Chronic anticoagulation: Code(s): 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.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
[2025-08-03] VITALS (24 sets, daily range): BP systolic 116–160; BP diastolic 56–110; PULSE 64–128; RESP 16–30; TEMP 36.4–36.5; O2SAT 96–100; BMI 41.3
--- NOTE | 2025-08-03 | ECHO_ITS ---
Patient Info Name: Ayanna Cash Age: 75 years : 1950 Gender: Female Ht: 62 in Wt: 224 lbs BSA: 2.16 m2 HR: 72 bpm BP: 116 / 56 mmHg Heart Rhythm: Atrial Fibrillation Technical Quality: Good Exam Date: 08/03/2025 2:19 PM Patient Status: I Admit Date: 08/03/2025 Exam Type: CA echo doppler color flow Complete two-dimensional, color flow and Doppler transthoracic echocardiogram is performed. Staff Referring Physician: Juan Salmon Rotor Assembler: Miguel Wade III Attending Provider: Chichi Hernandez Summary 1. Complete two-dimensional, color flow and Doppler transthoracic echocardiogram is performed. 2. Normal left ventricular size with mildly reduced or low normal contractility. 3. Significant biatrial dilation. 4. Atrial fibrillation. 5. Compared to echo from 2022 the heart rate is no controlled in left ventricular ejection fraction he is significantly improved. Left Ventricle Left ventricular chamber dimension is normal. Left ventricular systolic function is mildly reduced, estimated at 45-50. Right Ventricle Right ventricular chamber dimension is normal. Left Atria Left atrial chamber dimension is moderately enlarged. Right Atria Right atrial chamber dimension is moderately enlarged. Aortic Valve The aortic valve is normal. Pulmonic Valve The pulmonic valve is not well visualized. Mitral Valve The mitral valve has normal leaflets. There is mild mitral valve regurgitation. Tricuspid Valve The tricuspid valve leaflets are normal. There is mild tricuspid valve regurgitation. Pericardium/Pleural The pericardium appears normal. Aorta The aortic root size at the sinus of Valsalva is normal. Left Ventricular Outflow Tract Name Value Normal LVOT 2D LVOT Diameter 2.2 cm LVOT Doppler LVOT Peak Velocity 103 cm/s LVOT Peak Gradient 4 mmHg LVOT Mean Gradient 2 mmHg LVOT VTI 18 cm LVOT VTI/AV VTI Ratio 0.6 LVOT Stroke Volume 67 ml LVOT CO 13.7 l/min LVOT CI 6.3 l/min/m2 Pulmonic Valve Name Value Normal PV Doppler PV Peak Velocity 96 cm/s PV Peak Gradient 4 mmHg PV Mean Gradient 2 mmHg Mitral Valve Name Value Normal MV Doppler MV Peak Gradient 4 mmHg MV Mean Gradient 2 mmHg MV Area (Cont Eq VTI) 2.7 cm2 MV Regurgitation Doppler MR Peak Gradient 100 mmHg MV Diastolic Function MV E Peak Velocity 110 cm/s MV A Peak Velocity 33 cm/s MV E/A 3.3 MV Decel Time (PW) 186 ms MV Annular TDI MV E/e' (Septal) 18.1 MV E/e' (Lateral) 11.2 MV E/e' (Average) 14.6 Tricuspid Valve Name Value Normal TV Regurgitation Doppler TR Peak Velocity 432 cm/s TR Peak Gradient 49 mmHg Estimated PAP/RSVP RA Pressure 10 mmHg <=5 PA Systolic Pressure 85 mmHg <36 RV Systolic Pressure 85 mmHg <36 TV Annular TDI TV Lateral Layne s' Velocity 14.8 cm/s >=9.5 Aortic Valve Name Value Normal AV Doppler AV Peak Velocity 161 cm/s AV Peak Gradient 7 mmHg AV Mean Gradient 3 mmHg AV VTI 28 cm AV Area (Cont Eq VTI) 2.4 cm2 >=3.0 AV Area (Cont Eq Juan Francisco) 2.4 cm2 AV DI (Juan Francisco) 0.64 AV Regurgitation 2D LVOT Area 3.7 cm2 Ventricles Name Value Normal LV Dimensions 2D/MM IVS Diastolic Thickness (2D) 1.1 cm 0.6-1.0 LVID Diastole (2D) 4.9 cm 3.8-5.2 LVIW Diastolic Thickness (2D) 1.1 cm 0.6-0.9 LVID Systole (2D) 3.5 cm 2.2-3.5 LVOT Diameter 2.2 cm LV Mass (2D Cubed) 207.82 g 67.00-162.00 LV Mass Index (2D Cubed) 96 g/m2 43-95 Relative Wall Thickness (2D) 0.45 <=0.42 LV Fractional Shortening/Ejection Fraction 2D/MM LV Fractional Shortening (2D) 29 % 27-45 LV EF (2D Teichholz) 55 % LV Diastolic Volume (4C MOD) 74 ml LV EF (4C MOD) 52 % LV Diastolic Length (4C) 7.4 cm LV Systolic Length (4C) 6.6 cm LV Stroke Volume (4C MOD) 39 ml Atria Name Value Normal LA Dimensions LA Volume (4C A-L) 98 ml LA Volume (BP A-L) 101 ml RA Dimensions RA Systolic Major [place] Length (4C) 6.8 cm 2.2-2.8 RA Area (4C) 23.3 cm2 <=18.0 Report Signatures
[2025-08-03 04:25] LABS: Hematocrit 26.6 % (37.0-47.0); Hemoglobin 7.7 g/dL (12.0-15.0); Immature Granulocyte Percent A 0.7 % (0-0.5); Lymphocytes Absolute Auto 1.01 K/mm3 (0.9-3.2); Mean Corpuscular HGB Conc 28.9 g/dl (32-36); Mean Corpuscular Hemoglobin 30.3 pg (26-34); Mean Corpuscular Volume 104.7 fl (80-100); Nucleated Red Blood Cells Absolute Auto 0.000 K/mm3 (0.0-0.012); Nucleated Red Blood Cells Perc 0.0 % (0.0-0.2); Platelet Count Result 239 k/mm3 (150-375); Red Blood Count 2.54 M/mm3 (4.2-5.4); White Blood Count 7.5 K/mm3 (4.5-10.0)
[2025-08-03 04:50] LABS: Alanine Aminotransferase 9 U/L (6-35); Albumin Level 3.6 g/dL (3.5-5.1); Alkaline Phosphatase 104 U/L (38-126); Aspartate Amino Transferase 25 U/L (14-36); Bilirubin,Total 0.4 mg/dL (0.2-1.3); Blood Urea Nitrogen 44 mg/dL (7-17); Calcium 9.4 mg/dL (8.4-10.2); Carbon Dioxide > 40 mmol/L (22-30); Chloride 94 mmol/L (98-107); Estimated CRCL calculation 43 ml/min; Estimated Glomerular Filt Rate 48; Glucose 93 mg/dL (65-110); Magnesium 2.0 mg/dL (1.6-2.3); Potassium 4.2 mmol/L (3.4-5.0); Sodium 139 mmol/L (137-145); Total Protein 6.3 g/dL (6.3-8.2)
[2025-08-03 05:04] LABS: Procalcitonin 0.1 ng/mL
[2025-08-03 05:14] LABS: Alveolar/Arterial O2 Gradient 71.2 mmHg; Fractional Inspired Oxygen 35 %; HCO3 ABG 37.0 mEq/l (22.0-26.0); Oxygen Content ABG 10.4 %vol (16.0-22.0); Oxygen Saturation ABG 98.2 % (95.0-100.0); PCO2 ABG 55.0 mmHg (35.0-45.0); PO2 ABG 114.4 mmHg (80.0-100.0); PO2 FiO2 Ratio Arterial Blood 3.27 %
[2025-08-03 05:23] LABS: Modified Allen's Test Pass; Site Drawn RIGHT RADIAL
[2025-08-03 05:24] LABS: Anisocytosis 1+
[2025-08-03 05:25] LABS: Non-Invasive Expiratory Pressure 7 CMH2O; Non-Invasive Inspiratory Pressure 14 CMH2O; Non-Invasive Vent Rate 4 /MIN
[2025-08-03 05:25] LABS: Hypochromasia 1+; Schistocytes None Seen; Stomatocytes 1+
[2025-08-03] MEDS: LEVOTHYROXINE SODIUM 112 MCG TABLET PO (06:19)
[2025-08-03] MEDS: MEROPENEM 1 GM in SODIUM CHLORIDE 0.9% IV 100 ML 200 ML IVPB ×2 (06:20→20:51)
[2025-08-03] MEDS: HYDROXYCHLOROQUINE SULFATE 200 MG TABLET PO ×2 (07:44→17:37)
[2025-08-03] MEDS: COLLAGENASE OINT 30 GM TUBE 1 APPLIC TOPICAL (08:45)
[2025-08-03] MEDS: APIXABAN 5 MG TABLET PO ×2 (08:45→20:05)
[2025-08-03] MEDS: CYANOCOBALAMIN 1,000 MCG TABLET 1000 MCG PO (08:45)
[2025-08-03] MEDS: dilTIAZem HCL CD 300 MG CAP.24HR PO (08:46)
[2025-08-03] MEDS: DOCUSATE SODIUM 100 MG CAPSULE PO ×2 (08:46→20:05)
[2025-08-03] MEDS: PANTOPRAZOLE 40 MG TABLET PO (08:47)
[2025-08-03] MEDS: METOPROLOL SUCCINATE EXT REL 50 MG TABCR 150 MG PO (08:47)
[2025-08-03] MEDS: CHOLECALCIFEROL (VITAMIN D3) 125 MCG (5,000 UNITS) TABLET 2000 MCG PO (08:48)
[2025-08-03] MEDS: HYDROcodone/acetaminophen (*CRX) 7.5-325 MG TABLET 1 TAB PO ×2 (08:49→16:01)
--- NOTE | 2025-08-03 09:36 | PM.IMPN ---
Progress Note: A&P Assessment and Plan (1) Interstitial lung disease: Code(s): J84.9 - Interstitial pulmonary disease, unspecified Status: Acute (2) Acute and chronic respiratory failure with hypoxia: Code(s): J96.21 - Acute and chronic respiratory failure with hypoxia Status: Acute (3) Pneumonia: Code(s): J18.9 - Pneumonia, unspecified organism Status: Acute (4) Acute UTI: Code(s): N39.0 - Urinary tract infection, site not specified Status: Acute Plan Acute on chronic hypoxic/hypercapnic respiratory failure improved. Interstitial lung disease followed by [facility] pulmonology. She is back to her baseline 4 L nasal cannula. Pulmonology consultation, appreciate further recommendations. Continue meropenem and azithromycin for probable bronchopneumonia and recurrent UTI. Follow-up cultures including blood cultures. ABG PCO2 improved from 65-55. Hemoglobin stable. Leukocytosis resolved. Serum creatinine stable. PT/OT evaluations. Saline lock IV. Heart healthy diet. Transfer to medical floor. Previously lives at home alone. Discharged from [facility] on 07/24/2025 for pelvic fracture to half-way for rehab. Patient is currently a modified code with CPR and no intubation. I educated the patient on the logistics of the modified code and that it should not be routinely offered. CPR without intubation is largely incompatible with cardiopulmonary resuscitation. The patient could not quite grasp the entire description, she would like to talk with her daughters about this more and let me know later about her final decision. At this time will keep the current modified code. Improved. Stable. Transfer to medical floor. Subjective Date/time seen: 08/03/25 09:36 Interval history: Patient is feeling her breathing is 50% improved. She reports intermittent cough but no sputum production, this is her normal. Denies any pain, fever. Review of Systems Review of Systems: All systems reviewed & are unremarkable except as noted in HPI and below (Subjective) Exam Const: General: comfortable and no acute distress Other: A&O x3 HENMT: Mouth: Yes moist mucous membranes Eyes: Pupils: Equal, round and reactive pupils present Neck: Neck: supple Resp: Effort & Inspection: normal respiratory effort Other: Minimal diffuse crackles, dry. Cardio: Rate: regular rate Rhythm: regular rhythm GI: Inspection: non-distended GI Palp: Yes Soft to palpation Urinary Catheter: Urinary Catheter: patent and draining and other (Purulent discharge surrounding the suprapubic catheter insertion site) Extrem: General: no edema Objective Data Vital Signs Vital Signs: Vital Signs - 24 hr 08/02/25 15:15 08/02/25 15:33 08/02/25 17:18 Temperature 97.6 F Pulse Rate 74 67 75 Respiratory Rate 22 H 28 H Blood Pressure 132/80 Pulse Oximetry 100 Oxygen Delivery Nasal Cannula Oxygen Flow Rate 6 Fraction of Inspired Oxygen 08/02/25 17:25 08/02/25 18:01 08/02/25 18:05 Temperature Pulse Rate 76 61 71 Respiratory Rate 26 H 25 H 17 Blood Pressure 132/93 H Pulse Oximetry 100 100 Oxygen Delivery BiPAP Oxygen Flow Rate Fraction of Inspired Oxygen 08/02/25 20:20 08/02/25 20:45 08/02/25 22:00 Temperature Pulse Rate 65 Respiratory Rate Blood Pressure Pulse Oximetry 98 100 Oxygen Delivery BiPAP BiPAP Oxygen Flow Rate Fraction of Inspired Oxygen 35 08/02/25 23:50 08/03/25 00:00 08/03/25 00:00 Temperature 97.6 F Pulse Rate 68 64 Respiratory Rate 20 18 Blood Pressure 134/66 Pulse Oximetry 100 100 100 Oxygen Delivery BiPAP BiPAP Oxygen Flow Rate Fraction of Inspired Oxygen 35 08/03/25 00:00 08/03/25 02:00 08/03/25 03:55 Temperature 97.7 F Pulse Rate 66 69 73 Respiratory Rate 18 Blood Pressure 116/56 L Pulse Oximetry 100 Oxygen Delivery Oxygen Flow Rate Fraction of Inspired Oxygen 08/03/25 04:00 08/03/25 04:00 08/03/25 04:20 Temperature Pulse Rate 70 72 Respiratory Rate 21 H Blood Pressure Pulse Oximetry 100 100 Oxygen Delivery BiPAP BiPAP Oxygen Flow Rate Fraction of Inspired Oxygen 35 08/03/25 06:00 08/03/25 07:34 08/03/25 08:00 Temperature 97.6 F Pulse Rate 70 95 74 Respiratory Rate 20 20 Blood Pressure 152/93 H Pulse Oximetry 100 100 Oxygen Delivery BiPAP Oxygen Flow Rate 4 Fraction of Inspired Oxygen 35 08/03/25 08:00 08/03/25 08:06 08/03/25 08:07 Temperature Pulse Rate 74 74 92 Respiratory Rate 18 Blood Pressure Pulse Oximetry 100 100 Oxygen Delivery Nasal Cannula Oxygen Flow Rate 4 Fraction of Inspired Oxygen 08/03/25 08:47 Temperature Pulse Rate 103 H Respiratory Rate Blood Pressure Pulse Oximetry Oxygen Delivery Oxygen Flow Rate Fraction of Inspired Oxygen Intake/Output Intake/Output: Intake & Output 07/31/25 08/01/25 08/02/25 08/03/25 23:59 23:59 23:59 23:59 Intake Total 100 370 Output Total 300 750 Balance -200 -380 Meds/Results Medications: Active Medications Generic Name Dose Route Start Last Admin Trade Name Freq PRN Reason Stop Dose Admin Acetaminophen 650 mg 08/02/25 20:28 Acetaminophen 325 Mg Tablet PO Q6H PRN 1-3 or Fever Hydrocodone Bitart/Acetaminophen 1 tab 08/02/25 20:28 08/03/25 08:49 Hydrocodone/Acetaminophen (*Crx) 7.5-325 Mg Tablet PO 1 tab Q4H PRN Administration Pain Rated 7-10 Apixaban 5 mg 08/02/25 21:15 08/03/25 08:45 Apixaban 5 Mg Tablet PO 5 mg Q12HR DELFIN Administration Azathioprine 50 mg 08/03/25 08:00 08/03/25 07:44 Azathioprine 50 Mg Tablet PO 50 mg DAILY@0800 DELFIN Administration Colestipol HCl 1 gm 08/02/25 21:00 08/02/25 21:58 Colestipol Hcl 1 Gm Tablet PO 1 gm HS DELFIN Administration Collagenase 1 applic 08/03/25 09:00 08/03/25 08:45 Collagenase Oint 30 Gm Tube TOPICAL 1 applic DAILY DELFIN Administration Cyanocobalamin 1,000 mcg 08/03/25 09:00 08/03/25 08:45 Cyanocobalamin 1,000 Mcg Tablet PO 1,000 mcg DAILY DELFIN Administration Diltiazem HCl 300 mg 08/03/25 09:00 08/03/25 08:46 Diltiazem Hcl Cd 300 Mg Cap.24hr PO 300 mg QAM DELFIN Administration Docusate Sodium 100 mg 08/02/25 21:00 08/03/25 08:46 Docusate Sodium 100 Mg Capsule PO 100 mg Q12HR DELFIN Administration Duloxetine HCl 40 mg 08/03/25 09:00 08/03/25 08:46 Duloxetine Hcl 20 Mg Capsule.Dr PO 40 mg DAILY DELFIN Administration Furosemide 40 mg 08/02/25 20:35 08/02/25 22:01 Furosemide Inj 40 Mg/4 Ml Vial IV PUSH 40 mg BID DELFIN Administration Hydroxychloroquine Sulfate 200 mg 08/03/25 08:00 08/03/25 07:44 Hydroxychloroquine Sulfate 200 Mg Tablet PO 200 mg BIDWM DELFIN Administration Meropenem 1 gm/ Sodium 100 mls @ 200 mls/hr 08/03/25 07:00 08/03/25 06:20 Chloride IVPB 200 mls/hr Q12H DELFIN Administration Azithromycin 500 mg/ Sodium 250 mls @ 250 mls/hr 08/02/25 19:00 08/02/25 20:04 Chloride IVPB 08/06/25 19:59 250 mls/hr Q24H DELFIN Administration Levothyroxine Sodium 112 mcg 08/03/25 06:30 08/03/25 06:19 Levothyroxine Sodium 112 Mcg Tablet PO 112 mcg DAILY@0630 DELFIN Administration Metoprolol Succinate 150 mg 08/03/25 09:00 08/03/25 08:47 Metoprolol Succinate Ext Rel 50 Mg Tabcr PO 150 mg QAM DELFIN Administration Miscellaneous Information 0 each 08/02/25 00:01 08/03/25 01:54 Collagenase And Silver Sulfadiazine Add Site Of Use XX 09/01/25 00:00 Not Given CLARIFY DELFIN Pantoprazole Sodium 40 mg 08/03/25 09:00 08/03/25 08:47 Pantoprazole 40 Mg Tablet PO 40 mg QAM DELFIN Administration Perflutren Lipid Microsphere 0 ml 08/03/25 03:32 Perflutren Lipid Microspheres 1.5 Ml Vial Diluted To 10 Ml Total Volume IV PUSH 08/06/25 03:32 ONCE PRN adequate visualization Protocol Pravastatin Sodium 80 mg 08/02/25 21:00 08/02/25 22:00 Pravastatin Sodium 20 Mg Tablet PO 80 mg HS DELFIN Administration Prednisone 2.5 mg 08/03/25 08:00 08/03/25 07:44 Prednisone 2.5 Mg Tablet PO 2.5 mg DAILY@0800 DELFIN Administration Silver Sulfadiazine 1 applic 08/03/25 09:00 Silver Sulfadiazine 1% Cr 400 Gm Jar (*Bkc) TOPICAL Q12HR DELFIN Vitamin D 2,000 mcg 08/03/25 09:00 08/03/25 08:48 Cholecalciferol (Vitamin D3) 125 Mcg (5,000 Units) Tablet PO 2,000 mcg DAILY DELFIN Administration Radiology Results: ITS Impressions Chest X-Ray 08/02/25 15:44 Impression: 1: Chronic extensive bilateral airspace consolidation. Differential diagnosis includes organizing pneumonia, chronic aspiration pneumonia, atypical infection, sarcoidosis and chronic eosinophilic pneumonia. Chest CT 08/02/25 17:21 IMPRESSION: Chronic changes detailed above with superimposed probable bronchopneumonia. Follow-up is suggested to assess improvement. Labs Labs: Laboratory Results - last 24 hr 08/02/25 08/02/25 08/02/25 15:37 15:37 15:37 WBC 11.7 H RBC 2.45 L Hgb 7.4 L Hct 25.8 L MCV 105.3 H MCH 30.2 MCHC 28.7 L RDW 14.5 Plt Count 308 MPV 9.8 Immature Gran % (Auto) 0.6 H Neut % (Auto) 82.8 H Lymph % (Auto) 6.1 L [place] % (Auto) 9.8 H Eos % (Auto) 0.3 Baso % (Auto) 0.4 Lymph # (Auto) 0.71 L [place] # (Auto) 1.2 H Eos # (Auto) 0.0 Baso # (Auto) 0.1 Abs Immat Gran (auto) 0.07 H Absolute Neuts (auto) 9.7 H Absolute Nucleated RBC 0.000 Band Neutrophils % 0 Nucleated RBC % 0.0 Platelet Estimate Adequate Hypochromasia 1+ Anisocytosis 1+ Macrocytosis 1+ Stomatocytes Schistocytes None seen ESR 101 H Puncture Site ABG pH ABG pCO2 ABG pO2 ABG PO2/FiO2 Ratio ABG HCO3 ABG O2 Saturation ABG O2 Content ABG Base Excess A-a Gradient Oxyhemoglobin Carboxyhemoglobin Methemoglobin Reduced Hemoglobin Total Hemoglobin O2 Delivery Device O2 Liters/Min Vent Rate FiO2 Expiratory Pressure Inspiratory Pressure Sodium 138 Potassium 5.0 Chloride 95 L Carbon Dioxide > 40 H Anion Gap BUN 46 H Creatinine 1.16 H Estim Creat Clear Calc 41 Estimated GFR 45 L Glucose 113 H Calcium 9.5 Magnesium Cancelled Cancelled Total Bilirubin 0.4 AST 25 ALT 11 Alkaline Phosphatase 100 C-Reactive Protein Cancelled Cancelled NT-Pro-B Natriuret Pep Total Protein 6.5 Albumin 3.7 Procalcitonin Urine Color Urine Appearance Urine pH Ur Specific [place] Urine Protein Urine Glucose (UA) Urine Ketones Ur Blood (Man) Urine Nitrate Urine Bilirubin Urine Urobilinogen Add Ur Microanalysis Leukocyte Esterase Rfl Urine RBC Urine WBC Ur Squamous Epith Cells Urine Bacteria Urine Casts 08/02/25 08/02/25 08/02/25 16:54 17:39 17:40 WBC RBC Hgb Hct MCV MCH MCHC RDW Plt Count MPV Immature Gran % (Auto) Neut % (Auto) Lymph % (Auto) [place] % (Auto) Eos % (Auto) Baso % (Auto) Lymph # (Auto) [place] # (Auto) Eos # (Auto) Baso # (Auto) Abs Immat Gran (auto) Absolute Neuts (auto) Absolute Nucleated RBC Band Neutrophils % Nucleated RBC % Platelet Estimate Hypochromasia Anisocytosis Macrocytosis Stomatocytes Schistocytes ESR Puncture Site Left radial ABG pH 7.382 ABG pCO2 65.4 H* ABG pO2 70.8 L ABG PO2/FiO2 Ratio 1.77 ABG HCO3 38.0 H ABG O2 Saturation 93.4 L ABG O2 Content 10.9 L ABG Base Excess 11.3 A-a Gradient 139.2 Oxyhemoglobin 91.4 Carboxyhemoglobin 2.4 H Methemoglobin 0.3 Reduced Hemoglobin 5.9 H Total Hemoglobin 8.4 L O2 Delivery Device Nasal cannula O2 Liters/Min 5.0 Vent Rate FiO2 40 Expiratory Pressure Inspiratory Pressure Sodium Potassium Chloride Carbon Dioxide Anion Gap BUN Creatinine Estim Creat Clear Calc Estimated GFR Glucose Calcium Magnesium 2.0 Total Bilirubin AST ALT Alkaline Phosphatase C-Reactive Protein 3.3 H NT-Pro-B Natriuret Pep 4530 H Total Protein Albumin Procalcitonin Urine Color Light red H Urine Appearance Turbid H Urine pH 5.0 Ur Specific [place] 1.013 Urine Protein 2+ H Urine Glucose (UA) Negative Urine Ketones Negative Ur Blood (Man) 3+ H Urine Nitrate Negative Urine Bilirubin Negative Urine Urobilinogen 0.2 Add Ur Microanalysis Reviewed Leukocyte Esterase Rfl 3+ H Urine RBC >100 H Urine WBC >100 H Ur Squamous Epith Cells Occasional Urine Bacteria Rare Urine Casts >20 08/03/25 08/03/25 04:12 05:10 WBC 7.5 RBC 2.54 L Hgb 7.7 L Hct 26.6 L MCV 104.7 H MCH 30.3 MCHC 28.9 L RDW 14.5 Plt Count 239 MPV 9.7 Immature Gran % (Auto) 0.7 H Neut % (Auto) 72.2 Lymph % (Auto) 13.4 L [place] % (Auto) 9.7 H Eos % (Auto) 3.5 Baso % (Auto) 0.5 Lymph # (Auto) 1.01 [place] # (Auto) 0.7 H Eos # (Auto) 0.3 Baso # (Auto) 0.0 Abs Immat Gran (auto) 0.05 H Absolute Neuts (auto) 5.4 Absolute Nucleated RBC 0.000 Band Neutrophils % Not Reportable Nucleated RBC % 0.0 Platelet Estimate Adequate Hypochromasia 1+ Anisocytosis 1+ Macrocytosis Stomatocytes 1+ Schistocytes None seen ESR Puncture Site Right radial ABG pH 7.446 ABG pCO2 55.0 H ABG pO2 114.4 H ABG PO2/FiO2 Ratio 3.27 ABG HCO3 37.0 H ABG O2 Saturation 98.2 ABG O2 Content 10.4 L ABG Base Excess 11.7 A-a Gradient 71.2 Oxyhemoglobin 95.9 Carboxyhemoglobin Methemoglobin Reduced Hemoglobin Total Hemoglobin 7.5 L* O2 Delivery Device Non-invasive vent O2 Liters/Min Not Reportable Vent Rate 4 FiO2 35 Expiratory Pressure 7 Inspiratory Pressure 14 Sodium 139 Potassium 4.2 Chloride 94 L Carbon Dioxide > 40 H Anion Gap BUN 44 H Creatinine 1.10 H Estim Creat Clear Calc 43 Estimated GFR 48 L Glucose 93 Calcium 9.4 Magnesium 2.0 Total Bilirubin 0.4 AST 25 ALT 9 Alkaline Phosphatase 104 C-Reactive Protein NT-Pro-B Natriuret Pep Total Protein 6.3 Albumin 3.6 Procalcitonin 0.1 Urine Color Urine Appearance Urine pH Ur Specific [place] Urine Protein Urine Glucose (UA) Urine Ketones Ur Blood (Man) Urine Nitrate Urine Bilirubin Urine Urobilinogen Add Ur Microanalysis Leukocyte Esterase Rfl Urine RBC Urine WBC Ur Squamous Epith Cells Urine Bacteria Urine Casts
[2025-08-03] MEDS: FUROSEMIDE INJ 40 MG/4 ML VIAL IV PUSH ×2 (10:05→17:37)
[2025-08-03] MEDS: SILVER SULFADIAZINE 1% CR 400 GM JAR (*BKC) 1 APPLIC TOPICAL ×2 (10:05→20:12)
--- NOTE | 2025-08-03 14:17 | PCPTNOTE ---
Attempted PT evaluation, pt getting an echo. Will follow.
--- NOTE | 2025-08-03 14:54 | PC.NURSE ---
Report called to BILLY Watson on 3rd M/S. Transfered per bed to room 324-1. All questions answered. Belongings sent with patient.
--- NOTE | 2025-08-03 15:29 | ADMGEN ---
This patient, Ayanna Cash, was admitted to [facility] Surg Room 324-02. Patient/family oriented to hospital policies and general routines including ID bracelet, bed and alarms, visiting hours, pain management, procedures, bathroom and other care routines, personal items, smoking policy, room service/diet, and visiting hours. Information on how to activate the Rapid Response Team has been discussed. Patient/Family are encouraged to report perceived risks to care and to ask questions if they do not understand what they are told or what they should do. patient arrived to floor at 1505 and received report from Daphney.
--- NOTE | 2025-08-03 17:06 | PM.CNPUL ---
Assessment and Plan Assessment and plan (1) Chronic respiratory failure: Code(s): J96.10 - Chronic respiratory failure, unspecified whether with hypoxia or hypercapnia Status: Acute Assessment and Plan: She has been on oxygen for several years, now at 4 L/minute, this admission is the first time an ABG has shown hypercapnia with pCO2 65. She has a compensated pH so this indicates that her hypercapnia is longstanding. Last arterial blood gas we had was in 2021, she had pCO2 in the 33 range with a metabolic acidosis when she had acute kidney injury sore acid-base status was completely different. She has pain this admission after a fall and this can explain the atelectasis on the chest x-ray and chest CT. She has smaller lung volumes now compared ot a prior CXR. (2) Interstitial lung disease: Code(s): J84.9 - Interstitial pulmonary disease, unspecified Status: Acute Assessment and Plan: She has collagen vascular associated ILD, has RA; has been present for several years, she has been on a variety medications for her rheumatoid associated interstitial lung disease and is followed at the [facility] ILD clinic. Last visit was 03/26/2014, no changes were made. Her med list showed that she was on Orencia injections,hydroxychloroquine 200 mg and prednisone 2.5 mg. She is no longer on these medications, now takes azathioprine 50 mg a day. (3) Pulmonary hypertension: Code(s): I27.20 - Pulmonary hypertension, unspecified Status: Acute Assessment and Plan: This is secondary pulmonary hypertension due to underlying lung disease and hypoxemia. Plan plan: add PEP valve and incentive spirometer to improve atelectasis. We can obtain urine antigens for strep pneumoniae & Legionella, and a respiratory pathogen panel. Procalcitonin. Serology for group A strep was negative on 08/04/25. She is using BiPAP at night 07/06 which improved the hypercapnia but her CO2 was compensated. She is no longer using PAP therapy for obstructive sleep apnea. She also has low ejection fraction, heart failure, persistent atrial fibrillation and she remains obese BMI 40; has lost significant weight over the last years. These conditions contribute to her baseline dyspnea and debility. We will continue to follow with you History of Present Illness History of Present Illness Consult date: 08/04/25 Requesting physician: Miguel Weinstein APRN Chief complaint: Hypoxia, Hypercapnia, Pneumonia, UTI Narrative: Patient was seen Aug 04, 2025 at 20:50 Room 324 NEW: Ayanna Cash is a 75-year-old woman known to our service, my last office visit with her was November 2021, and she has been seeing Dr Denita Correa at the [facility] for rheumatoid arthritis associated interstitial lung disease, and also sees Dr Bauman, rheumatology at [facility]. She is on azathioprine 50 mg a day due to persistent joint symptoms. She uses oxygen 4 L/minute at minute at home; she fell in the shower, fractured her right inferior ramus, could not get up after falling. She did not hit her head, no loss of consciousness. Her O2 requirement is same as baseline, 4 L/min. She did not have any worsening of her breathing prior to admission. She does not have a productive cough or sore throat. She has elevated carbon oxide this admission which she has not had in the past. She is no longer using PAP therapy at home. 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 COVID 19 infection May 2022, required hospitalization for mechanical fall with rib fractures and heart failure exacerbation, recurrent UTIs with suprapubic catheter 07/2023 EF 50-55%, mild right ventricular hypokinesis DATA * 08/02/25 CXR; There is extensive chronic bilateral airspace consolidation with relative sparing of the right lung base. Elevated right diaphragm. No significant effusion or pneumothorax. No acute osseous abnormality. Impression: 1: Chronic extensive bilateral airspace consolidation. Differential diagnosis includes organizing pneumonia, chronic aspiration pneumonia, atypical infection, sarcoidosis and chronic eosinophilic pneumonia. * 08/02/[address] without contrast; comparison is 03/22/2023. TECHNIQUE: CT scan of the chest was performed without IV contrast. One or more of the following dose reduction techniques were used: automated exposure control, adjustment of the mA and/or kV according to patient size, use of iterative reconstruction technique. FINDINGS: Coronary artery calcifications. ([id number]) LUNGS: No tracheomalacia. No bronchiectasis. Moderate emphysematous changes bilaterally with bilateral pulmonary fibrotic changes with early honeycombing. There are bullous formation noted. There are scattered ill-defined areas of density with some micronodules some of which demonstrate a tree-in-bud distribution with scattered areas of groundglass attenuation. Trace bilateral pleural effusions. HEART AND PERICARDIUM: Mild cardiomegaly. Trace pericardial effusion. AORTA: Normal caliber aorta. ADENOPATHY/MEDIASTINUM: Enlarged pretracheal lymph node 2 x 2 centimeters. LIMITED VIEWS OF THE ABDOMEN: Partially imaged probable right renal cyst 3 x 3 cm. OSSEOUS STRUCTURES: No sclerotic or lytic lesions. No acute rib fractures. Moderate loss of vertical height throughout with remote fractures T11 and T12, no acute fracture or subluxation. OVERLYING SOFT TISSUES: Unremarkable. THYROID: The thyroid is unremarkable. IMPRESSION: Chronic changes detailed above with superimposed probable bronchopneumonia. Follow-up is suggested to assess improvement. ABG Date 07/22/2208/0208/03/25 pH 7.34 7.38 7.44 pO2 35.5 65.4 55 pCO2 513 70.8 114 HCO3 18.7 38 37 sat 93% 98% FiO2 100% 40% 35% type O2 CarboxyHgb 2.4 IPAP 14 14 EPAP 8 7 Review of Systems Review of Systems: All systems reviewed & are unremarkable except as noted in HPI and below PMFSH Past Medical History Medical History Chronic diarrhea Fecal occult blood test positive Chronic anticoagulation Chronic kidney disease, stage 3 Chronic anemia Deep venous thrombosis (2004) Degenerative joint disease Chronic respiratory failure with hypoxia, on home oxygen therapy On 2 to 4 L nasal cannula. Chronic diastolic congestive heart failure Echocardiogram in 06/2022 showed an EF 50 to 55% and diastolic dysfunction. Osteoporosis Vitamin D deficiency Paroxysmal atrial fibrillation Morbid obesity Interstitial lung disease Pre-diabetes Post menopausal syndrome Stress incontinence Shingles Hearing loss Rheumatoid arthritis Depression with anxiety Nonspecific interstitial pneumonitis Pulmonary embolism (2004) History of COVID-19 Obstructive sleep apnea on CPAP Hypothyroidism Hyperlipidemia Essential hypertension Diverticulosis Surgical History Surgical History History of cholecystectomy History of parathyroidectomy History of section History of arthroscopy of right knee History of tonsillectomy and adenoidectomy History of bilateral knee replacement History of cardiac catheterization Family History Family History Mother Hypertension Father Pulmonary emboli Rheumatoid arthritis Mother , at 91 due to old age Hypertension Father , at 58 due to PE Family history of rheumatoid arthritis Family history of pulmonary embolism Grandparent Cerebrovascular accident Other Family history of malignant neoplasm Social History Social History Social History: [facility] she lived with her daughter Katya in her house prior to going into the rehab facility. Originally from [place], [place]. Surrogate medical decision maker: Mae Cash, daughter. Code status: Full code. Smoking status: Never smoker Second hand tobacco smoke exposure: Yes Alcohol intake: never Substance use: never Substance use type: does not use Do You Feel Safe in your Home?: Yes Lack of Transportation: No Lack of Food: Never True Current Housing: I Have Housing Concerned About Future Housing: No Difficulty Paying Gas/Electric Bills: No Difficulty Paying for Meds: No Currently Unemployed: No Education: Grade School Difficulty w/ Childcare or Family Care: No Living arrangements: with family Additional living arrangements comments: LIVES WITH PAOLA BRITT Occupation/Education: retired Gender identity (if verbalized by the patient): Female Spiritual care concerns: No Agree to blood products: Yes Meds Home Medications and Allergies Home Medications ?Medication ?Instructions ?Recorded ?Confirmed ?Type Calcium 600-D3 Plus (mag-zinc) 1 tablet PO BID 07/21/22 08/02/25 History cholecalciferol (vitamin D3) 25 2,000 mcg PO DAILY 07/21/22 08/02/25 History mcg (1,000 unit) capsule cyanocobalamin (vitamin B-12) 1,000 mcg PO DAILY 07/21/22 08/02/25 History 1,000 mcg tablet hydroxychloroquine 200 mg tablet 200 mg PO BID 07/21/22 08/02/25 History metoprolol succinate 50 mg 50 mg PO DAILY 03/22/23 08/02/25 History tablet,extended release 24 hr diltiazem HCl 300 mg 300 mg PO QAM #30 caps 04/11/23 08/02/25 Rx capsule,extended release 24 hr metoprolol succinate 100 mg 100 mg PO DAILY 08/28/23 08/02/25 History tablet,extended release 24 hr prednisone 2.5 mg tablet 2.5 mg PO DAILY 08/13/24 08/02/25 History furosemide 80 mg tablet 80 mg PO DAILY 10/01/24 08/02/25 History azathioprine 50 mg tablet 50 mg PO DAILY@0800 02/18/25 08/02/25 History magnesium 250 mg tablet 250 mg PO DAILY #90 tabs 04/02/25 08/02/25 Rx tramadol 50 mg tablet 50 mg PO Q8H PRN pain #90 tabs 04/16/25 08/02/25 Rx potassium chloride 20 mEq See Rx Instructions .Route 05/10/25 08/02/25 Rx tablet,extended release(part/cryst) .COMPLEX #180 tabs pravastatin 80 mg tablet See Rx Instructions .Route 05/17/25 08/02/25 Rx .COMPLEX #90 tabs pantoprazole 40 mg tablet,delayed See Rx Instructions .Route 06/11/25 08/02/25 Rx release .COMPLEX #90 tabs apixaban 5 mg tablet (Eliquis) 5 mg PO BID 3 months #180 tabs 07/06/25 08/02/25 Rx levothyroxine 112 mcg tablet See Rx Instructions .Route 07/16/25 08/02/25 Rx .COMPLEX #90 tabs colestipol 1 gram tablet 1 g PO HS 07/17/25 08/02/25 History duloxetine 20 mg capsule,delayed 40 mg PO DAILY 07/17/25 08/02/25 History release alendronate 70 mg tablet (Fosamax) 70 mg PO WEEKLY 07/18/25 08/02/25 History docusate sodium 100 mg capsule 100 mg PO Q12HR #7 caps 07/24/25 08/02/25 Rx hydrocodone 7.5 mg-acetaminophen 1 tablet PO Q4H PRN Pain Rated 07/24/25 08/02/25 Rx 325 mg tablet 7-10 #10 tabs acetaminophen 325 mg capsule 650 mg PO Q6H PRN pain 08/02/25 08/02/25 History arginine-vitamin C-vitamin E oral 4.5 g PO AC 08/02/25 08/02/25 History 4.5 gram-156 mg/9.2 gram powder pkt (Arginaid) collagenase clostridium histo. 250 1 applic topical DAILY 08/02/25 08/02/25 History unit/gram topical ointment (Santyl) silver sulfadiazine 1 % topical 1 applic topical BID 08/02/25 08/02/25 History cream (Silvadene) sacubitril 24 mg-valsartan 26 mg 1 tablet PO BID 08/04/25 08/04/25 History tablet (Entresto) Held on 08/04/25. Instructions: Patient no longer taking furosemide 40 mg tablet 40 mg PO DAILY 08/05/25 08/05/25 History Allergies Allergy/AdvReac Type Severity Reaction Status Date / Time No Known Allergies Allergy Verified 08/02/25 15:50 Vital Signs Vital Signs - 24 hr 08/02/25 17:18 08/02/25 17:25 08/02/25 18:01 Temperature Pulse Rate 75 76 61 Respiratory Rate 28 H 26 H 25 H Blood Pressure Pulse Oximetry 100 Oxygen Delivery BiPAP Oxygen Flow Rate Fraction of Inspired Oxygen 08/02/25 18:05 08/02/25 20:20 08/02/25 20:45 Temperature Pulse Rate 71 Respiratory Rate 17 Blood Pressure 132/93 H Pulse Oximetry 100 98 100 Oxygen Delivery BiPAP BiPAP Oxygen Flow Rate Fraction of Inspired Oxygen 35 08/02/25 22:00 08/02/25 23:50 08/03/25 00:00 Temperature 36.4 C Pulse Rate 65 68 64 Respiratory Rate 20 18 Blood Pressure 134/66 Pulse Oximetry 100 100 Oxygen Delivery BiPAP Oxygen Flow Rate Fraction of Inspired Oxygen 08/03/25 00:00 08/03/25 00:00 08/03/25 02:00 Temperature Pulse Rate 66 69 Respiratory Rate Blood Pressure Pulse Oximetry 100 Oxygen Delivery BiPAP Oxygen Flow Rate Fraction of Inspired Oxygen 35 08/03/25 03:55 08/03/25 04:00 08/03/25 04:00 Temperature 36.5 C Pulse Rate 73 70 Respiratory Rate 18 Blood Pressure 116/56 L Pulse Oximetry 100 100 Oxygen Delivery BiPAP Oxygen Flow Rate Fraction of Inspired Oxygen 35 08/03/25 04:20 08/03/25 06:00 08/03/25 07:34 Temperature 36.4 C Pulse Rate 72 70 95 Respiratory Rate 21 H 20 Blood Pressure 152/93 H Pulse Oximetry 100 100 Oxygen Delivery BiPAP Oxygen Flow Rate Fraction of Inspired Oxygen 08/03/25 08:00 08/03/25 08:00 08/03/25 08:06 Temperature Pulse Rate 74 74 74 Respiratory Rate 20 Blood Pressure Pulse Oximetry 100 100 Oxygen Delivery BiPAP Oxygen Flow Rate 4 Fraction of Inspired Oxygen 35 08/03/25 08:07 08/03/25 08:47 08/03/25 10:00 Temperature Pulse Rate 92 103 H 103 H Respiratory Rate 18 Blood Pressure Pulse Oximetry 100 Oxygen Delivery Nasal Cannula Oxygen Flow Rate 4 Fraction of Inspired Oxygen 08/03/25 15:21 08/03/25 15:24 Temperature 36.4 C Pulse Rate 69 Respiratory Rate 20 Blood Pressure 140/69 Pulse Oximetry 99 99 Oxygen Delivery Nasal Cannula Oxygen Flow Rate 4 Fraction of Inspired Oxygen Exam Narrative: GEN: Alert, oriented, mid increased in respiratory effort, can speak about 5 words then catches her breath, on O2 4L/min, saturation 91-100% HEENT: pupils are equal, EOMI, symmetrical face; oral membranes moist NECK: Trachea is midline CHEST: Equal air entry, symmetric excursion, decreased breath sounds posteriorly CV: irreg irregular S1S2 Extremities : no clubbing, cyanosis, or edema; she has large ecchymoses on lower legs; she says that these are old, not new due to the fall PSYCH: normal thought and speech Results Laboratory Findings 08/05/25 05:38 08/05/25 05:38 ABG, PT/INR, D-dimer: ABG ABG pH 7.446 (7.350-7.450) 08/03/25 05:10 ABG pCO2 55.0 mmHg (35.0-45.0) H 08/03/25 05:10 ABG pO2 114.4 mmHg (80.0-100.0) H 08/03/25 05:10 ABG O2 Saturation 98.2 % (95.0-100.0) 08/03/25 05:10 Abnormal lab findings: Abnormal Labs 08/02/25 08/02/25 08/02/25 15:37 16:54 17:39 WBC 11.7 H RBC 2.45 L Hgb 7.4 L Hct 25.8 L MCV 105.3 H MCHC 28.7 L Immature Gran % (Auto) 0.6 H Neut % (Auto) 82.8 H Lymph % (Auto) 6.1 L Mckean % (Auto) 9.8 H Lymph # (Auto) 0.71 L Mckean # (Auto) 1.2 H Abs Immat Gran (auto) 0.07 H Absolute Neuts (auto) 9.7 H ESR 101 H ABG pCO2 65.4 H* ABG pO2 70.8 L ABG HCO3 38.0 H ABG O2 Saturation 93.4 L ABG O2 Content 10.9 L Carboxyhemoglobin 2.4 H Reduced Hemoglobin 5.9 H Total Hemoglobin 8.4 L Chloride 95 L Carbon Dioxide > 40 H BUN 46 H Creatinine 1.16 H Estimated GFR 45 L Glucose 113 H C-Reactive Protein 3.3 H NT-Pro-B Natriuret Pep 4530 H Urine Color Urine Appearance Urine Protein Ur Blood (Man) Leukocyte Esterase Rfl Urine RBC Urine WBC 08/02/25 08/03/25 08/03/25 17:40 04:12 05:10 WBC RBC 2.54 L Hgb 7.7 L Hct 26.6 L MCV 104.7 H MCHC 28.9 L Immature Gran % (Auto) 0.7 H Neut % (Auto) Lymph % (Auto) 13.4 L Mckean % (Auto) 9.7 H Lymph # (Auto) Mckean # (Auto) 0.7 H Abs Immat Gran (auto) 0.05 H Absolute Neuts (auto) ESR ABG pCO2 55.0 H ABG pO2 114.4 H ABG HCO3 37.0 H ABG O2 Saturation ABG O2 Content 10.4 L Carboxyhemoglobin Reduced Hemoglobin Total Hemoglobin 7.5 L* Chloride 94 L Carbon Dioxide > 40 H BUN 44 H Creatinine 1.10 H Estimated GFR 48 L Glucose C-Reactive Protein NT-Pro-B Natriuret Pep Urine Color Light red H Urine Appearance Turbid H Urine Protein 2+ H Ur Blood (Man) 3+ H Leukocyte Esterase Rfl 3+ H Urine RBC >100 H Urine WBC >100 H
[2025-08-03] MEDS: AZITHROMYCIN IV 500 MG in SODIUM CHLORIDE 0.9% IV 250 ML IVPB (18:53)
[2025-08-03] MEDS: ACETAMINOPHEN 325 MG TABLET 650 MG PO (20:05)
[2025-08-03] MEDS: COLESTIPOL HCL 1 GM TABLET PO (20:05)
[2025-08-03] MEDS: PRAVASTATIN SODIUM 20 MG TABLET 80 MG PO (20:06)
--- NOTE | 2025-08-03 20:43 | ECG_ITS ---
Test Date: 2025-08-03 20:52:00 Measurements Intervals [place] Rate: 129 P: 0 IA: 0 QRS: -16 QRSD: 127 T: 60 QT: 351 QTc: 514 Interpretive Statements ATRIAL FIBRILLATION WITH RAPID VENTRICULAR RESPONSE NONSPECIFIC ST AND T ABNORMALITY INTRAVENTRICULAR CONDUCTION DELAY ABNORMAL ECG Compared to ECG 08/02/2025 15:35:24 VENTRICULAR RESPONSE TO ATRIAL FIBRILLATION RATE, V RATEIS ACCELERATED Electronically Signed On 08-04-2025 16:10:55 CDT by Obed Sands M.D.
[2025-08-03] MEDS: IPRATROPIUM 0.5 MG/ALBUTEROL SULFATE 2.5 MG AMPUL.NEB 3 ML INHALATION (20:48)
[2025-08-03] MEDS: METOPROLOL TARTRATE INJ 5 MG/5 ML VIAL IV PUSH (21:04)
[2025-08-04] VITALS (16 sets, daily range): BP systolic 135–163; BP diastolic 66–83; PULSE 66–103; RESP 16–25; TEMP 36.1–36.6; O2SAT 90–100
[2025-08-04] MEDS: LEVOTHYROXINE SODIUM 112 MCG TABLET PO (06:14)
[2025-08-04] MEDS: MEROPENEM 1 GM in SODIUM CHLORIDE 0.9% IV 100 ML 200 ML IVPB ×2 (06:14→18:04)
[2025-08-04 06:52] LABS: Hematocrit 26.2 % (37.0-47.0); Hemoglobin 7.5 g/dL (12.0-15.0); Immature Granulocyte Percent A 0.4 % (0-0.5); Lymphocytes Absolute Auto 0.86 K/mm3 (0.9-3.2); Mean Corpuscular HGB Conc 28.6 g/dl (32-36); Mean Corpuscular Hemoglobin 30.1 pg (26-34); Mean Corpuscular Volume 105.2 fl (80-100); Nucleated Red Blood Cells Absolute Auto 0.000 K/mm3 (0.0-0.012); Nucleated Red Blood Cells Perc 0.0 % (0.0-0.2); Platelet Count Result 264 k/mm3 (150-375); Red Blood Count 2.49 M/mm3 (4.2-5.4); White Blood Count 9.8 K/mm3 (4.5-10.0)
[2025-08-04 07:11] LABS: Alanine Aminotransferase 9 U/L (6-35); Albumin Level 3.5 g/dL (3.5-5.1); Alkaline Phosphatase 107 U/L (38-126); Anion Gap 6 mmol/L (4-12); Aspartate Amino Transferase 22 U/L (14-36); Bilirubin,Total 0.3 mg/dL (0.2-1.3); Blood Urea Nitrogen 40 mg/dL (7-17); Calcium 9.0 mg/dL (8.4-10.2); Carbon Dioxide 39 mmol/L (22-30); Chloride 95 mmol/L (98-107); Estimated CRCL calculation 43 ml/min; Estimated Glomerular Filt Rate 48; Glucose 91 mg/dL (65-110); Magnesium 2.1 mg/dL (1.6-2.3); Potassium 4.1 mmol/L (3.4-5.0); Sodium 140 mmol/L (137-145); Total Protein 6.3 g/dL (6.3-8.2)
[2025-08-04 07:24] LABS: Anisocytosis 1+; Hypochromasia 1+; Polychromasia Occasional; Target Cells Occasional
[2025-08-04 07:25] LABS: Schistocytes None Seen
[2025-08-04] MEDS: ACETAMINOPHEN 325 MG TABLET 650 MG PO ×2 (08:54→16:41)
[2025-08-04] MEDS: METOPROLOL SUCCINATE EXT REL 50 MG TABCR 150 MG PO (08:56)
[2025-08-04] MEDS: CHOLECALCIFEROL (VITAMIN D3) 25 MCG (1,000 UNITS) TABLET 50 MCG PO (08:56)
[2025-08-04] MEDS: FUROSEMIDE INJ 40 MG/4 ML VIAL IV PUSH ×2 (08:57→16:35)
[2025-08-04] MEDS: DOCUSATE SODIUM 100 MG CAPSULE PO ×2 (08:57→20:35)
[2025-08-04] MEDS: dilTIAZem HCL CD 300 MG CAP.24HR PO (08:57)
[2025-08-04] MEDS: HYDROXYCHLOROQUINE SULFATE 200 MG TABLET PO ×2 (08:58→16:35)
[2025-08-04] MEDS: APIXABAN 5 MG TABLET PO ×2 (08:58→20:35)
[2025-08-04] MEDS: CYANOCOBALAMIN 1,000 MCG TABLET 1000 MCG PO (08:58)
[2025-08-04] MEDS: PANTOPRAZOLE 40 MG TABLET PO (08:58)
[2025-08-04] MEDS: SILVER SULFADIAZINE 1% CR 400 GM JAR (*BKC) 1 APPLIC TOPICAL ×2 (09:08→20:50)
[2025-08-04 14:04] LABS: Strep Group A RT-PCR NOT DETECTED (Negative)
--- NOTE | 2025-08-04 15:34 | P.PNIM_ITS ---
Progress Note: A&P Assessment and Plan (1) Interstitial lung disease: Code(s): J84.9 - Interstitial pulmonary disease, unspecified Status: Acute (2) Acute and chronic respiratory failure with hypoxia: Code(s): J96.21 - Acute and chronic respiratory failure with hypoxia Status: Acute (3) Pneumonia: Code(s): J18.9 - Pneumonia, unspecified organism Status: Acute (4) Acute UTI: Code(s): N39.0 - Urinary tract infection, site not specified Status: Acute (5) Sore throat: Code(s): J02.9 - Acute pharyngitis, unspecified Status: Acute Plan Acute on chronic hypoxic/hypercapnic respiratory failure improved. Interstitial lung disease followed by [facility] pulmonology. She is back to her baseline 4 L nasal cannula. Pulmonology consultation, appreciate further recommendations. Continue meropenem and azithromycin for probable bronchopneumonia and recurrent UTI. Follow-up cultures including blood cultures. ABG PCO2 improved from 65-55. Continue [employer] prednisone. Hemoglobin stable. Leukocytosis resolved. Serum creatinine stable. 08/04/2025: Blood pressure elevated to 163/83. Start amlodipine 10 mg p.o. q.day Heart failure, atrial fibrillation: Compensated. Continue Lasix. Continue metoprolol and diltiazem. Continue [employer] Eliquis. Holding azathioprine. PT/OT evaluations. Saline lock IV. Heart healthy diet. Previously lives at home alone. Discharged from [facility] on 07/24/2025 for [facility] fracture to [facility]. Patient wishes to be DNR. Improved. Stable. Pulmonology recommendations pending. Subjective Date/time seen: 08/04/25 15:34 Interval history: No major acute overnight events. Patient still has some shortness of breath. She denies cough. Spoke with the patient and her at bedside and they have independently decided the patient should be DNR. No CPR/and no intubation. Patient denies fevers, chest pain. She complained of left ear fullness when she swallows and pain in the throat. Review of Systems Review of Systems: All systems reviewed & are unremarkable except as noted in HPI and below (Subjective) Exam Const: General: comfortable and no acute distress Other: A&O x3 HENMT: Mouth: Yes moist mucous membranes Other: Erythema of bilateral arches of the soft palate. No lesions, purulence. Normal appearing external ear canal. Tympanic membrane adequate light reflex. Resp: Other: Minimal diffuse crackles, dry. Cardio: Rate: regular rate Rhythm: regular rhythm GI: GI Palp: Yes Soft to palpation Objective Data Vital Signs Vital Signs: Vital Signs - 24 hr 08/03/25 19:55 08/03/25 20:05 08/03/25 20:40 Temperature 97.6 F Pulse Rate 81 99 Respiratory Rate 20 16 Blood Pressure 143/83 H 160/110 H Pulse Oximetry 99 98 Oxygen Delivery Nasal Cannula Oxygen Flow Rate 4 Fraction of Inspired Oxygen 36 08/03/25 20:55 08/03/25 21:00 08/03/25 21:02 Temperature Pulse Rate 128 H 65 102 H Respiratory Rate 24 H 19 30 H Blood Pressure Pulse Oximetry 96 96 Oxygen Delivery BiPAP BiPAP Oxygen Flow Rate Fraction of Inspired Oxygen 08/03/25 21:04 08/03/25 21:04 08/03/25 21:23 Temperature Pulse Rate 102 H 75 74 Respiratory Rate 30 H Blood Pressure 128/87 Pulse Oximetry 100 Oxygen Delivery Oxygen Flow Rate Fraction of Inspired Oxygen 08/03/25 22:05 08/03/25 22:11 08/04/25 00:00 Temperature Pulse Rate 67 65 80 Respiratory Rate 19 19 Blood Pressure 121/74 Pulse Oximetry 100 97 Oxygen Delivery BiPAP Oxygen Flow Rate Fraction of Inspired Oxygen 08/04/25 01:42 08/04/25 04:00 08/04/25 04:30 Temperature Pulse Rate 74 72 75 Respiratory Rate 22 H 20 Blood Pressure Pulse Oximetry 97 97 Oxygen Delivery BiPAP BiPAP Oxygen Flow Rate Fraction of Inspired Oxygen 08/04/25 04:47 08/04/25 08:00 08/04/25 08:56 Temperature 97.6 F Pulse Rate 75 79 Respiratory Rate 16 Blood Pressure 147/73 H Pulse Oximetry 98 91 Oxygen Delivery Nasal Cannula Oxygen Flow Rate 4 Fraction of Inspired Oxygen 08/04/25 09:01 08/04/25 10:06 08/04/25 14:00 Temperature 97.9 F Pulse Rate 76 Respiratory Rate 20 Blood Pressure 163/83 H Pulse Oximetry 91 100 Oxygen Delivery Nasal Cannula Oxygen Flow Rate 4 4 Fraction of Inspired Oxygen 36 Intake/Output Intake/Output: Intake & Output 09/07/25 09/08/25 09/09/25 09/10/25 23:59 23:59 23:59 23:59 Intake Total 350 1050 680 Output Total 300 1600 1075 Balance 70 -687 -845 Meds/Results Medications: Active Medications Generic Name Dose Route Start Last Admin Trade Name Freq PRN Reason Stop Dose Admin Acetaminophen 650 mg 08/02/25 20:28 08/04/25 08:54 Acetaminophen 325 Mg Tablet PO 650 mg Q6H PRN Administration 1-3 or Fever Hydrocodone Bitart/Acetaminophen 1 tab 08/02/25 20:28 08/03/25 16:01 Hydrocodone/Acetaminophen (*Crx) 7.5-325 Mg Tablet PO 1 tab Q4H PRN Administration Pain Rated 7-10 Apixaban 5 mg 08/02/25 21:15 08/04/25 08:58 Apixaban 5 Mg Tablet PO 5 mg Q12HR DELFIN Administration Colestipol HCl 1 gm 08/02/25 21:00 08/03/25 20:05 Colestipol Hcl 1 Gm Tablet PO 1 gm HS DELFIN Administration Collagenase 1 applic 08/03/25 09:00 08/04/25 09:27 Collagenase Oint 30 Gm Tube TOPICAL Not Given DAILY DELFIN Cyanocobalamin 1,000 mcg 08/03/25 09:00 08/04/25 08:58 Cyanocobalamin 1,000 Mcg Tablet PO 1,000 mcg DAILY DELFIN Administration Diltiazem HCl 300 mg 08/03/25 09:00 08/04/25 08:57 Diltiazem Hcl Cd 300 Mg Cap.24hr PO 300 mg QAM DELFIN Administration Docusate Sodium 100 mg 08/02/25 21:00 08/04/25 08:57 Docusate Sodium 100 Mg Capsule PO 100 mg Q12HR DELFIN Administration Duloxetine HCl 40 mg 08/03/25 09:00 08/04/25 08:57 Duloxetine Hcl 20 Mg Capsule.Dr PO 40 mg DAILY DELFIN Administration Furosemide 40 mg 08/02/25 20:35 08/04/25 08:57 Furosemide Inj 40 Mg/4 Ml Vial IV PUSH 40 mg BID DELFIN Administration Hydroxychloroquine Sulfate 200 mg 08/03/25 08:00 08/04/25 08:58 Hydroxychloroquine Sulfate 200 Mg Tablet PO 200 mg BIDWM DELFIN Administration Meropenem 1 gm/ Sodium 100 mls @ 200 mls/hr 08/03/25 07:00 08/04/25 06:14 Chloride IVPB 200 mls/hr Q12H DELFIN Administration Azithromycin 500 mg/ Sodium 250 mls @ 250 mls/hr 08/02/25 19:00 08/03/25 18:53 Chloride IVPB 08/06/25 19:59 250 mls/hr Q24H DELFIN Administration Levothyroxine Sodium 112 mcg 08/03/25 06:30 08/04/25 06:14 Levothyroxine Sodium 112 Mcg Tablet PO 112 mcg DAILY@0630 DELFIN Administration Metoprolol Succinate 150 mg 08/03/25 09:00 08/04/25 08:56 Metoprolol Succinate Ext Rel 50 Mg Tabcr PO 150 mg QAM DELFIN Administration Miscellaneous Information 0 each 08/02/25 00:01 08/03/25 01:54 Collagenase And Silver Sulfadiazine Add Site Of Use XX 09/01/25 00:00 Not Given CLARIFY DELFIN Pantoprazole Sodium 40 mg 08/03/25 09:00 08/04/25 08:58 Pantoprazole 40 Mg Tablet PO 40 mg QAM DELFIN Administration Perflutren Lipid Microsphere 0 ml 08/03/25 03:32 Perflutren Lipid Microspheres 1.5 Ml Vial Diluted To 10 Ml Total Volume IV PUSH 08/06/25 03:32 ONCE PRN adequate visualization Protocol Pravastatin Sodium 80 mg 08/02/25 21:00 08/03/25 20:06 Pravastatin Sodium 20 Mg Tablet PO 80 mg HS DELFIN Administration Prednisone 2.5 mg 08/03/25 08:00 08/04/25 08:58 Prednisone 2.5 Mg Tablet PO 2.5 mg DAILY@0800 DELFIN Administration Silver Sulfadiazine 1 applic 08/03/25 09:00 08/04/25 09:08 Silver Sulfadiazine 1% Cr 400 Gm Jar (*Bkc) TOPICAL 1 applic Q12HR DELFIN Administration Vitamin D 50 mcg 08/04/25 09:00 08/04/25 08:56 Cholecalciferol (Vitamin D3) 25 Mcg (1,000 Units) Tablet PO 50 mcg DAILY DELFIN Administration Radiology Results: ITS Impressions Chest X-Ray 08/02/25 15:44 Impression: 1: Chronic extensive bilateral airspace consolidation. Differential diagnosis includes organizing pneumonia, chronic aspiration pneumonia, atypical infection, sarcoidosis and chronic eosinophilic pneumonia. Chest CT 08/02/25 17:21 IMPRESSION: Chronic changes detailed above with superimposed probable bronchopneumonia. Follow-up is suggested to assess improvement. Labs Labs: Laboratory Results - last 24 hr 08/04/25 08/04/25 06:25 13:27 WBC 9.8 RBC 2.49 L Hgb 7.5 L Hct 26.2 L MCV 105.2 H MCH 30.1 MCHC 28.6 L RDW 14.7 H Plt Count 264 MPV 10.0 Immature Gran % (Auto) 0.4 Neut % (Auto) 79.1 H Lymph % (Auto) 8.7 L [place] % (Auto) 11.5 H Eos % (Auto) 0.0 Baso % (Auto) 0.3 Lymph # (Auto) 0.86 L [place] # (Auto) 1.1 H Eos # (Auto) 0.0 Baso # (Auto) 0.0 Abs Immat Gran (auto) 0.04 H Absolute Neuts (auto) 7.8 H Absolute Nucleated RBC 0.000 Band Neutrophils % Not Reportable Nucleated RBC % 0.0 Platelet Estimate Adequate Polychromasia Occasional Hypochromasia 1+ Anisocytosis 1+ Target Cells Occasional Schistocytes None seen Sodium 140 Potassium 4.1 Chloride 95 L Carbon Dioxide 39 H Anion Gap 6 BUN 40 H Creatinine 1.10 H Estim Creat Clear Calc 43 Estimated GFR 48 L Glucose 91 Calcium 9.0 Magnesium 2.1 Total Bilirubin 0.3 AST 22 ALT 9 Alkaline Phosphatase 107 Total Protein 6.3 Albumin 3.5 Group A Strep (PCR) Not detected
[2025-08-04] MEDS: AZITHROMYCIN IV 500 MG in SODIUM CHLORIDE 0.9% IV 250 ML IVPB (18:38)
[2025-08-04] MEDS: COLESTIPOL HCL 1 GM TABLET PO (20:34)
[2025-08-04] MEDS: PRAVASTATIN SODIUM 20 MG TABLET 80 MG PO (20:35)
[2025-08-05] VITALS (12 sets, daily range): BP systolic 116–143; BP diastolic 66–92; PULSE 68–120; RESP 17–36; TEMP 36.4–36.7; O2SAT 92–99; BMI 10.0
[2025-08-05] MEDS: HYDROcodone/acetaminophen (*CRX) 7.5-325 MG TABLET 1 TAB PO ×2 (03:26→14:56)
[2025-08-05] MEDS: MEROPENEM 1 GM in SODIUM CHLORIDE 0.9% IV 100 ML 200 ML IVPB (06:21)
[2025-08-05] MEDS: LEVOTHYROXINE SODIUM 112 MCG TABLET PO (06:21)
[2025-08-05 06:24] LABS: Hematocrit 26.8 % (37.0-47.0); Hemoglobin 7.6 g/dL (12.0-15.0); Immature Granulocyte Percent A 0.8 % (0-0.5); Lymphocytes Absolute Auto 0.87 K/mm3 (0.9-3.2); Mean Corpuscular HGB Conc 28.4 g/dl (32-36); Mean Corpuscular Hemoglobin 30.3 pg (26-34); Mean Corpuscular Volume 106.8 fl (80-100); Nucleated Red Blood Cells Absolute Auto 0.000 K/mm3 (0.0-0.012); Nucleated Red Blood Cells Perc 0.0 % (0.0-0.2); Platelet Count Result 254 k/mm3 (150-375); Red Blood Count 2.51 M/mm3 (4.2-5.4); White Blood Count 11.3 K/mm3 (4.5-10.0)
[2025-08-05 06:58] LABS: Macrocytosis 1+ (NORMAL); Polychromasia Occasional; Schistocytes None Seen
[2025-08-05] MEDS: ACETAMINOPHEN 325 MG TABLET 650 MG PO (07:01)
[2025-08-05 07:08] LABS: Alanine Aminotransferase 12 U/L (6-35); Albumin Level 3.5 g/dL (3.5-5.1); Alkaline Phosphatase 107 U/L (38-126); Aspartate Amino Transferase 40 U/L (14-36); Bilirubin,Total 0.4 mg/dL (0.2-1.3); Blood Urea Nitrogen 52 mg/dL (7-17); Calcium 9.6 mg/dL (8.4-10.2); Chloride 93 mmol/L (98-107); Estimated CRCL calculation 47 ml/min; Estimated Glomerular Filt Rate 55; Glucose 89 mg/dL (65-110); Magnesium 2.1 mg/dL (1.6-2.3); Potassium 4.8 mmol/L (3.4-5.0); Sodium 139 mmol/L (137-145); Total Protein 6.3 g/dL (6.3-8.2)
[2025-08-05 07:18] LABS: Anion Gap 9 mmol/L (4-12); Carbon Dioxide 37 mmol/L (22-30)
[2025-08-05] MEDS: APIXABAN 5 MG TABLET PO (10:27)
[2025-08-05] MEDS: DOCUSATE SODIUM 100 MG CAPSULE PO (10:27)
[2025-08-05] MEDS: CYANOCOBALAMIN 1,000 MCG TABLET 1000 MCG PO (10:28)
[2025-08-05] MEDS: HYDROXYCHLOROQUINE SULFATE 200 MG TABLET PO (10:28)
[2025-08-05] MEDS: METOPROLOL SUCCINATE EXT REL 50 MG TABCR 150 MG PO (10:28)
[2025-08-05] MEDS: dilTIAZem HCL CD 300 MG CAP.24HR PO (10:28)
[2025-08-05] MEDS: PANTOPRAZOLE 40 MG TABLET PO (10:28)
[2025-08-05] MEDS: CHOLECALCIFEROL (VITAMIN D3) 25 MCG (1,000 UNITS) TABLET 50 MCG PO (10:28)
[2025-08-05] MEDS: FUROSEMIDE INJ 40 MG/4 ML VIAL IV PUSH (10:28)
[2025-08-05] MEDS: COLLAGENASE OINT 30 GM TUBE 1 APPLIC TOPICAL (10:29)
[2025-08-05] MEDS: SILVER SULFADIAZINE 1% CR 400 GM JAR (*BKC) 1 APPLIC TOPICAL (10:29)
[2025-08-05] MEDS: IPRATROPIUM 0.5 MG/ALBUTEROL SULFATE 2.5 MG AMPUL.NEB 3 ML INHALATION (10:51)
--- NOTE | 2025-08-05 11:21 | P.PNPL_ITS ---
Progress Note: A&P Assessment and Plan (1) Acute on chronic respiratory failure with hypoxia and hypercapnia: Code(s): J96.21 - Acute and chronic respiratory failure with hypoxia; J96.22 - Acute and chronic respiratory failure with hypercapnia Status: Acute Assessment and Plan: She has been on oxygen for several years, now at 4 L/minute, this admission is the first time an ABG has shown hypercapnia with pCO2 65. She has a compensated pH so this indicates that her hypercapnia is longstanding. Last arterial blood gas we had was in 2021, she had pCO2 in the 33 range with a metabolic acidosis when she had acute kidney injury sore acid-base status was completely different. She has pain this admission after a fall and this can explain the atelectasis on the chest x-ray and chest CT. She has smaller lung volumes now compared ot a prior CXR. (2) Interstitial lung disease: Code(s): J84.9 - Interstitial pulmonary disease, unspecified Status: Acute Assessment and Plan: She has collagen vascular associated ILD, has RA; has been present for several y ears, she has been on a variety medications for her rheumatoid associated interstitial lung disease, followed at the [facility] ILD clinic. Last visit was 03/26/2014, no changes were made. She takes azathioprine 50 mg, hydroxychloroquine 200 mg and prednisone 2.5 mg. She stopped Orencia in Nov 2024. She is of azathioprine now because it interacts with her antibiotics. (3) Pulmonary hypertension: Code(s): I27.20 - Pulmonary hypertension, unspecified Status: Acute Assessment and Plan: This is secondary pulmonary hypertension due to underlying lung disease and hypoxemia. (4) Pneumonia: Code(s): J18.9 - Pneumonia, unspecified organism Status: Acute Assessment and Plan: This is a provisional diagnosis. She has some coughing, not getting anything out as far as secretions. She received the Cornet today, and has used it, on the lowest setting, felt that it was a bit challenging. She is weak, has been getti ng more deconditioned at home. Will continue the PEP valve, continue lev- albuterol. I talked with her RN Anna who said that after DuoNeb, her heart rate shot up, so agree with using nebulizers with less potential to aggravate her atrial fib. She is a never-smoker, does not have a clear indication for bronchodilators except to assist with airway clearance. Plan plan: I left a voice message with Dr Correa's staff telling her that the patient is here, not doing well, considering hospice. Continue PEP valve and bronchodilators, Incentive spirometry, Meropenem and azithromycin empirically for possible health care associated pneumonia. No vent. Do not resuscitate. Her atrial fib is faster than normal due to increased demand with possible pneumonia v exacerbation of ILD v decompensated CHF. She initially had HFpEF, then EF worsened, later improved from the lowest. SHe has edema in her torso, is on diuretics, normally Lasix 120 mg a day, now getting 40 mg. Her BUN is rising, not a good situation with [id number] compromised. I spent over an hour meeting with the patient and her children, then reviewing images, discussing prognosis, hospice, and documenting. Discussed pt with Dr Hogue. Subjective Date/time seen: 08/05/25 11:21 Interval history: 08/05/25; hospital follow up; Susan Cash is surrounded by several children, Mae, Edilia, Frandy, eventually Dewayne arrived, and Hema joined by Dhruv. She is breathing more rapidly, 30 times a minute. Overall, looks worse this morning compared to last evening. She has been going downhill for months, more fatigue, lives by herself, stays in bed except for 4-5 hours a day when she is up and about. Has a lift in her home. She had Lasix this morning. She is a DNR, no vent. She told me that she wants to continue treatment if she is going to get better, but wants no ventilator. 08/04/25; new; Ayanna Cash is a 75-year-old woman known to our service, my last office visit with her was November 2021, and she has been seeing Dr Denita Correa at the [facility] ILD clinic for rheumatoid arthritis associated interstitial lung disease, and also sees Dr Bauman, rheumatology at [facility]. She has been on azathioprine 50 mg, hydroxychloroquine 200 mg and prednisone 2.5 mg since Nov 2024, stopped Orencia (abatacept) because it was not helping her RA. She uses oxygen 4 L/minute at minute at home; On Jul 17, she fell in the shower at her home, fractured her right inferior ramus, could not get up after falling. She did not hit her head, no loss of consciousness. She came to [facility], was diagnosed and treated for the pelvis fracture, did not have a CXR, had a Pseudomonas UTI; at discharge, she went to [facility] where she was getting rehab. She was not really up and walking, mainly was getting around in the wheelchair at [place]. On Saturday - Saturday, she started having problems breathing, resp rate was higher, sat was 85% on her usual 4 L. She was increased to 5 L, came here, had chest x-ray and CTA. She does not have a productive cough or sore throat. She has elevated carbon oxide this admission with com pensated pH, so this is chronic. She has not had in the past. She is no longer using PAP therapy at home. 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 COVID 19 infection May 2022, required hospitalization for mechanical fall with rib fractures and heart failure exacerbation, recurrent UTIs with suprapubic catheter 07/2023 EF 50-55%, mild right ventricular hypokinesis. Indwelling suprapubic catheter for recurrent UTI every month, on suppressive therapy, and frequent antibiotics. DATA * 08/02/25 CXR; There is extensive chronic bilateral airspace consolidation with relative sparing of the right lung base. Elevated right diaphragm. No significant effusion or pneumothorax. No acute osseous abnormality. Impression: 1: Chronic extensive bilateral airspace consolidation. Differential diagnosis includes organizing pneumonia, chronic aspiration pneumonia, atypical infection, sarcoidosis and chronic eosinophilic pneumonia. * 08/02/[address] without contrast; comparison is 03/22/2023. TECHNIQUE: CT scan of the chest was performed without IV contrast. One or more of the following dose reduction techniques were used: automated exposure control, adjustment of the mA and/or kV according to patient size, use of iterative reconstruction technique. Coronary artery calcifications. ([id number]) LUNGS: No tracheomalacia. No bronchiectasis. Moderate emphysematous changes bilaterally with bilateral pulmonary fibrotic changes with early honeycombing. There are bullous formation noted. There are scattered ill-defined areas of density with some micronodules some of which demonstrate a tree-in-bud distribution with scattered areas of groundglass attenuation. Trace bilateral pleural effusions. HEART AND PERICARDIUM: Mild cardiomegaly. Trace pericardial effusion. AORTA: Normal caliber aorta. ADENOPATHY/MEDIASTINUM: Enlarged pretracheal lymph node 2 x 2 centimeters. LIMITED VIEWS OF THE ABDOMEN: Partially imaged probable right renal cyst 3 x 3 cm. OSSEOUS STRUCTURES: No sclerotic or lytic lesions. No acute rib fractures. Moderate loss of vertical height throughout with remote fractures T11 and T12, no acute fracture or subluxation. OVERLYING SOFT TISSUES: Unremarkable. THYROID: The thyroid is unremarkable. IMPRESSION: Chronic changes detailed above with superimposed probable bronchopneumonia. Follow-up is suggested to assess improvement. ABG Date 07/22/2208/0208/03/25 pH 7.34 7.38 7.44 pO2 35.5 65.4 55 pCO2 513 70.8 114 HCO3 18.7 38 37 sat 93% 98% FiO2 100% 40% 35% type O2 CarboxyHgb 2.4 IPAP 14 14 EPAP 8 7 Review of Systems Review of Systems: She is tired, no specific complaints. All systems reviewed & are unremarkable except as noted in HPI and below Exam Narrative: GEN: Alert, oriented, moderate respiratory effort with resp rate 30, speaks in short fragments. On 4 L, 96% HEENT: pupils are equal, EOMI, symmetrical face; oral membranes moist NECK: Trachea is midline CHEST: Equal air entry, symmetric excursion, decreased breath sounds posteriorly, basilar crackles CV: irreg irregular tachycardic S1S2 Extremities : no clubbing or cyanosis; (+) edema in torso; she has large ecchymoses on lower legs; she says that these are old, not new due to the fall PSYCH: normal thought and speech Objective Data Vital Signs Vital Signs: Vital Signs - 24 hr 08/04/25 12:00 08/04/25 14:00 08/04/25 16:00 Temperature 36.6 C Pulse Rate 89 76 84 Respiratory Rate 20 Blood Pressure 163/83 H Pulse Oximetry 100 Oxygen Delivery Oxygen Flow Rate Fraction of Inspired Oxygen 08/04/25 20:00 08/04/25 20:35 08/04/25 21:58 Temperature 36.1 C L Pulse Rate 75 66 Respiratory Rate 16 Blood Pressure 135/66 Pulse Oximetry 90 90 Oxygen Delivery Nasal Cannula Oxygen Flow Rate 5 Fraction of Inspired Oxygen 08/04/25 23:25 08/04/25 23:30 08/05/25 00:00 Temperature Pulse Rate 80 94 Respiratory Rate 25 H Blood Pressure Pulse Oximetry 94 94 Oxygen Delivery BiPAP BiPAP Oxygen Flow Rate Fraction of Inspired Oxygen 36 08/05/25 02:44 08/05/25 04:00 08/05/25 05:39 Temperature 36.5 C Pulse Rate 86 83 88 Respiratory Rate 31 H 17 Blood Pressure 117/66 Pulse Oximetry 94 99 Oxygen Delivery BiPAP Oxygen Flow Rate Fraction of Inspired Oxygen 08/05/25 09:40 08/05/25 10:23 08/05/25 10:28 Temperature 36.5 C Pulse Rate 92 108 H Respiratory Rate 36 H Blood Pressure 143/86 H Pulse Oximetry 92 Oxygen Delivery BiPAP Oxygen Flow Rate 4 Fraction of Inspired Oxygen 08/05/25 10:52 08/05/25 10:53 08/05/25 10:59 Temperature Pulse Rate 83 74 Respiratory Rate 24 H 24 H Blood Pressure Pulse Oximetry 96 Oxygen Delivery Nasal Cannula Oxygen Flow Rate 4 Fraction of Inspired Oxygen Intake/Output Intake/Output: Intake & Output 09/08/25 09/09/25 09/10/25 09/11/25 23:59 23:59 23:59 23:59 Intake Total 350 1300 1120 690 Output Total 300 1600 1375 1100 Balance 300 -255 -410 Meds/Results Medications: Active Medications Generic Name Dose Route Start Last Admin Trade Name Freq PRN Reason Stop Dose Admin Acetaminophen 650 mg 08/02/25 20:28 08/05/25 07:01 Acetaminophen 325 Mg Tablet PO 650 mg Q6H PRN Administration 1-3 or Fever Hydrocodone Bitart/Acetaminophen 1 tab 08/02/25 20:28 08/05/25 03:26 Hydrocodone/Acetaminophen (*Crx) 7.5-325 Mg Tablet PO 1 tab Q4H PRN Administration Pain Rated 7-10 Albuterol/Ipratropium 3 ml 08/05/25 10:33 08/05/25 10:51 Ipratropium 0.5 Mg/Albuterol Sulfate 2.5 Mg Ampul.Neb 3 Ml INHALATION 3 ml Q6HRT DELFIN Administration Amlodipine Besylate 10 mg 08/04/25 15:55 08/05/25 10:27 Amlodipine Besylate 10 Mg Tablet PO 10 mg DAILY DELFIN Administration Apixaban 5 mg 08/02/25 21:15 08/05/25 10:27 Apixaban 5 Mg Tablet PO 5 mg Q12HR DELFIN Administration Colestipol HCl 1 gm 08/02/25 21:00 08/04/25 20:34 Colestipol Hcl 1 Gm Tablet PO 1 gm HS DELFIN Administration Collagenase 1 applic 08/03/25 09:00 08/05/25 10:29 Collagenase Oint 30 Gm Tube TOPICAL 1 applic DAILY DELFIN Administration Cyanocobalamin 1,000 mcg 08/03/25 09:00 08/05/25 10:28 Cyanocobalamin 1,000 Mcg Tablet PO 1,000 mcg DAILY DELFIN Administration Diltiazem HCl 300 mg 08/03/25 09:00 08/05/25 10:28 Diltiazem Hcl Cd 300 Mg Cap.24hr PO 300 mg QAM DELFIN Administration Docusate Sodium 100 mg 08/02/25 21:00 08/05/25 10:27 Docusate Sodium 100 Mg Capsule PO 100 mg Q12HR DELFIN Administration Duloxetine HCl 40 mg 08/03/25 09:00 08/05/25 10:27 Duloxetine Hcl 20 Mg Capsule.Dr PO 40 mg DAILY DELFIN Administration Furosemide 40 mg 08/02/25 20:35 08/05/25 10:28 Furosemide Inj 40 Mg/4 Ml Vial IV PUSH 40 mg BID DELFIN Administration Hydroxychloroquine Sulfate 200 mg 08/03/25 08:00 08/05/25 10:28 Hydroxychloroquine Sulfate 200 Mg Tablet PO 200 mg BIDWM DELFIN Administration Meropenem 1 gm/ Sodium 100 mls @ 200 mls/hr 08/03/25 07:00 08/05/25 06:21 Chloride IVPB 200 mls/hr Q12H DELFIN Administration Azithromycin 500 mg/ Sodium 250 mls @ 250 mls/hr 08/02/25 19:00 08/04/25 18:38 Chloride IVPB 08/06/25 19:59 250 mls/hr Q24H DELFIN Administration Levothyroxine Sodium 112 mcg 08/03/25 06:30 08/05/25 06:21 Levothyroxine Sodium 112 Mcg Tablet PO 112 mcg DAILY@0630 DELFIN Administration Metoprolol Succinate 150 mg 08/03/25 09:00 08/05/25 10:28 Metoprolol Succinate Ext Rel 50 Mg Tabcr PO 150 mg QAM DELFIN Administration Miscellaneous Information 0 each 08/02/25 00:01 08/03/25 01:54 Collagenase And Silver Sulfadiazine Add Site Of Use XX 09/01/25 00:00 Not Given CLARIFY DELFIN Pantoprazole Sodium 40 mg 08/03/25 09:00 08/05/25 10:28 Pantoprazole 40 Mg Tablet PO 40 mg QAM DELFIN Administration Perflutren Lipid Microsphere 0 ml 08/03/25 03:32 Perflutren Lipid Microspheres 1.5 Ml Vial Diluted To 10 Ml Total Volume IV PUSH 08/06/25 03:32 ONCE PRN adequate visualization Protocol Pravastatin Sodium 80 mg 08/02/25 21:00 08/04/25 20:35 Pravastatin Sodium 20 Mg Tablet PO 80 mg HS DELFIN Administration Prednisone 2.5 mg 08/03/25 08:00 08/05/25 10:28 Prednisone 2.5 Mg Tablet PO 2.5 mg DAILY@0800 DELFIN Administration Silver Sulfadiazine 1 applic 08/03/25 09:00 08/05/25 10:29 Silver Sulfadiazine 1% Cr 400 Gm Jar (*Bkc) TOPICAL 1 applic Q12HR DELFIN Administration Vitamin D 50 mcg 08/04/25 09:00 08/05/25 10:28 Cholecalciferol (Vitamin D3) 25 Mcg (1,000 Units) Tablet PO 50 mcg DAILY DELFIN Administration Radiology Results: ITS Impressions Chest X-Ray 08/02/25 15:44 Impression: 1: Chronic extensive bilateral airspace consolidation. Differential diagnosis includes organizing pneumonia, chronic aspiration pneumonia, atypical infection, sarcoidosis and chronic eosinophilic pneumonia. Chest CT 08/02/25 17:21 IMPRESSION: Chronic changes detailed above with superimposed probable bronchopneumonia. Follow-up is suggested to assess improvement. Labs Labs: Laboratory Results - last 24 hr 08/04/25 08/05/25 13:27 05:38 WBC 11.3 H RBC 2.51 L Hgb 7.6 L Hct 26.8 L MCV 106.8 H MCH 30.3 MCHC 28.4 L RDW 14.6 H Plt Count 254 MPV 10.9 H Immature Gran % (Auto) 0.8 H Neut % (Auto) 77.8 H Lymph % (Auto) 7.7 L [place] % (Auto) 12.2 H Eos % (Auto) 1.1 Baso % (Auto) 0.4 Lymph # (Auto) 0.87 L [place] # (Auto) 1.4 H Eos # (Auto) 0.1 Baso # (Auto) 0.1 Abs Immat Gran (auto) 0.09 H Absolute Neuts (auto) 8.8 H Absolute Nucleated RBC 0.000 Band Neutrophils % Not Reportable Nucleated RBC % 0.0 Platelet Estimate Adequate Polychromasia Occasional Macrocytosis 1+ Schistocytes None seen Sodium 139 Potassium 4.8 Chloride 93 L Carbon Dioxide 37 H Anion Gap 9 BUN 52 H D Creatinine 0.98 Estim Creat Clear Calc 47 Estimated GFR 55 L Glucose 89 Calcium 9.6 Magnesium 2.1 Total Bilirubin 0.4 AST 40 H ALT 12 Alkaline Phosphatase 107 Total Protein 6.3 Albumin 3.5 Group A Strep (PCR) Not detected
--- NOTE | 2025-08-05 14:38 | P.PNIM_ITS ---
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 [facility] with [facility] fractures. Leukocytosis on admission 11.7. Resolved, back up to 11.3 K on 08/05/2025. Could be as result of systemic steroid. Acute hypoxia and hypercarbia. Both resolved, she is having tachypnea although. Continue Cornet. Appreciate pulmonology recs. She had rapid ventricular rate after DuoNebs and has been changed ipratropium and levalbuterol. Meropenem, azithromycin changed to Augmentin and doxycycline. She is extremely weak, does not feel like she wants to continue. Hospice evaluation is currently ongoing. Azathioprine on hold while receiving antibiotics. Blood culture on 08/02/2025 no growth today, pending. Hemoglobin stable. Serum creatinine stable. She does have bibasilar rales, will increase her Lasix to her home dose. Continue ROBOTICS APPLICATION ENGINEER diltiazem. Amlodipine restarted on 08/04/2025. Blood pressure at goal, continue to monitor Continue ROBOTICS APPLICATION ENGINEER Eliquis. Consult wound care for sacral decubitus. PT/OT evaluations. Saline lock IV. Heart healthy diet. Suprapubic catheter change on admission. Previously lives at home alone. Discharged from [facility] on 07/24/2025 for pelvic fracture to alf for rehab. Patient wishes to be DNR. Hospice consultation. Subjective Date/time seen: 08/05/25 14:38 Interval history: Patient reports her breathing is worse, especially after working with OT. Denies cough, fever, chest pain, abdominal pain. Review of Systems Review of Systems: All systems reviewed & are unremarkable except as noted in HPI and below (Subjective) Exam Const: General: comfortable Other: Tachypnea Neck: Neck: supple Resp: Auscultation: diminished lung sounds Other: Tachypnea, bibasilar rales Cardio: Rate: tachycardic Rhythm: regular rhythm GI: GI Palp: Yes Soft to palpation and No Tenderness to palpation present (GI) Extrem: General: no edema Objective Data Vital Signs Vital Signs: Vital Signs - 24 hr 08/04/25 16:00 08/04/25 20:00 08/04/25 20:35 Temperature Pulse Rate 84 75 Respiratory Rate Blood Pressure Pulse Oximetry 90 Oxygen Delivery Nasal Cannula Oxygen Flow Rate 5 Fraction of Inspired Oxygen 08/04/25 21:58 08/04/25 23:25 08/04/25 23:30 Temperature 96.9 F L Pulse Rate 66 80 Respiratory Rate 16 25 H Blood Pressure 135/66 Pulse Oximetry 90 94 94 Oxygen Delivery BiPAP BiPAP Oxygen Flow Rate Fraction of Inspired Oxygen 36 08/05/25 00:00 08/05/25 02:44 08/05/25 04:00 Temperature Pulse Rate 94 86 83 Respiratory Rate 31 H Blood Pressure Pulse Oximetry 94 Oxygen Delivery BiPAP Oxygen Flow Rate Fraction of Inspired Oxygen 08/05/25 05:39 08/05/25 09:40 08/05/25 10:23 Temperature 97.7 F 97.7 F Pulse Rate 88 92 Respiratory Rate 17 36 H Blood Pressure 117/66 143/86 H Pulse Oximetry 99 92 Oxygen Delivery BiPAP Oxygen Flow Rate 4 Fraction of Inspired Oxygen 08/05/25 10:28 08/05/25 10:52 08/05/25 10:53 Temperature Pulse Rate 108 H 83 Respiratory Rate 24 H Blood Pressure Pulse Oximetry 96 Oxygen Delivery Nasal Cannula Oxygen Flow Rate 4 Fraction of Inspired Oxygen 08/05/25 10:59 08/05/25 12:00 Temperature 98.0 F Pulse Rate 74 120 H Respiratory Rate 24 H 22 H Blood Pressure 121/92 H Pulse Oximetry 92 Oxygen Delivery Oxygen Flow Rate Fraction of Inspired Oxygen Intake/Output Intake/Output: Intake & Output 08/02/25 08/03/25 08/04/25 08/05/25 23:59 23:59 23:59 23:59 Intake Total 350 1300 1370 790 Output Total 300 1600 1375 1100 Balance 50 -300 -5 -310 Meds/Results Medications: Active Medications Generic Name Dose Route Start Last Admin Trade Name Freq PRN Reason Stop Dose Admin Acetaminophen 650 mg 08/02/25 20:28 08/05/25 07:01 Acetaminophen 325 Mg Tablet PO 650 mg Q6H PRN Administration 1-3 or Fever Hydrocodone Bitart/Acetaminophen 1 tab 08/02/25 20:28 08/05/25 03:26 Hydrocodone/Acetaminophen (*Crx) 7.5-325 Mg Tablet PO 1 tab Q4H PRN Administration Pain Rated 7-10 Amlodipine Besylate 10 mg 08/04/25 15:55 08/05/25 10:27 Amlodipine Besylate 10 Mg Tablet PO 10 mg DAILY DELFIN Administration Amoxicillin/Clavulanate Potassium 1 tablet 08/05/25 21:00 Amoxicillin/Clavulanate K 875-125 Mg Tab PO 08/08/25 21:01 Q12HR DELFIN Apixaban 5 mg 08/02/25 21:15 08/05/25 10:27 Apixaban 5 Mg Tablet PO 5 mg Q12HR DELFIN Administration Colestipol HCl 1 gm 08/02/25 21:00 08/04/25 20:34 Colestipol Hcl 1 Gm Tablet PO 1 gm HS DELFIN Administration Collagenase 1 applic 08/03/25 09:00 08/05/25 10:29 Collagenase Oint 30 Gm Tube TOPICAL 1 applic DAILY DELFIN Administration Cyanocobalamin 1,000 mcg 08/03/25 09:00 08/05/25 10:28 Cyanocobalamin 1,000 Mcg Tablet PO 1,000 mcg DAILY DELFIN Administration Diltiazem HCl 300 mg 08/03/25 09:00 08/05/25 10:28 Diltiazem Hcl Cd 300 Mg Cap.24hr PO 300 mg QAM DELFIN Administration Docusate Sodium 100 mg 08/02/25 21:00 08/05/25 10:27 Docusate Sodium 100 Mg Capsule PO 100 mg Q12HR DELFIN Administration Doxycycline Hyclate 100 mg 08/05/25 21:00 Doxycycline Hyclate 100 Mg Tablet PO 08/07/25 09:01 Q12HR DELFIN Duloxetine HCl 40 mg 08/03/25 09:00 08/05/25 10:27 Duloxetine Hcl 20 Mg Capsule.Dr PO 40 mg DAILY DELFIN Administration Furosemide 40 mg 08/02/25 20:35 08/05/25 10:28 Furosemide Inj 40 Mg/4 Ml Vial IV PUSH 40 mg BID DELFIN Administration Hydroxychloroquine Sulfate 200 mg 08/03/25 08:00 08/05/25 10:28 Hydroxychloroquine Sulfate 200 Mg Tablet PO 200 mg BIDWM DELFIN Administration Ipratropium [place] 0.5 mg 08/05/25 14:00 Ipratropium Br 0.02% Inh Soln 0.5 Mg/2.5 Ml Vial INHALATION Q6HRT DELFIN Levalbuterol HCl 1.25 mg 08/05/25 14:00 Levalbuterol Neb 1.25 Mg/3 Ml INHALATION Q6HRT DELFIN Levothyroxine Sodium 112 mcg 08/03/25 06:30 08/05/25 06:21 Levothyroxine Sodium 112 Mcg Tablet PO 112 mcg DAILY@0630 DELFIN Administration Metoprolol Succinate 150 mg 08/03/25 09:00 08/05/25 10:28 Metoprolol Succinate Ext Rel 50 Mg Tabcr PO 150 mg QAM DELFIN Administration Miscellaneous Information 0 each 08/02/25 00:01 08/03/25 01:54 Collagenase And Silver Sulfadiazine Add Site Of Use XX 09/01/25 00:00 Not Given CLARIFY DELFIN Pantoprazole Sodium 40 mg 08/03/25 09:00 08/05/25 10:28 Pantoprazole 40 Mg Tablet PO 40 mg QAM DELFIN Administration Perflutren Lipid Microsphere 0 ml 08/03/25 03:32 Perflutren Lipid Microspheres 1.5 Ml Vial Diluted To 10 Ml Total Volume IV PUSH 08/06/25 03:32 ONCE PRN adequate visualization Protocol Pravastatin Sodium 80 mg 08/02/25 21:00 08/04/25 20:35 Pravastatin Sodium 20 Mg Tablet PO 80 mg HS DELFIN Administration Prednisone 2.5 mg 08/03/25 08:00 08/05/25 10:28 Prednisone 2.5 Mg Tablet PO 2.5 mg DAILY@0800 DELFIN Administration Silver Sulfadiazine 1 applic 08/03/25 09:00 08/05/25 10:29 Silver Sulfadiazine 1% Cr 400 Gm Jar (*Bkc) TOPICAL 1 applic Q12HR DELFIN Administration Vitamin D 50 mcg 08/04/25 09:00 08/05/25 10:28 Cholecalciferol (Vitamin D3) 25 Mcg (1,000 Units) Tablet PO 50 mcg DAILY DELFIN Administration Radiology Results: ITS Impressions Chest X-Ray 08/02/25 15:44 Impression: 1: Chronic extensive bilateral airspace consolidation. Differential diagnosis includes organizing pneumonia, chronic aspiration pneumonia, atypical infection, sarcoidosis and chronic eosinophilic pneumonia. Chest CT 08/02/25 17:21 IMPRESSION: Chronic changes detailed above with superimposed probable bronchopneumonia. Follow-up is suggested to assess improvement. Labs Labs: Laboratory Results - last 24 hr 08/05/25 05:38 WBC 11.3 H RBC 2.51 L Hgb 7.6 L Hct 26.8 L MCV 106.8 H MCH 30.3 MCHC 28.4 L RDW 14.6 H Plt Count 254 MPV 10.9 H Immature Gran % (Auto) 0.8 H Neut % (Auto) 77.8 H Lymph % (Auto) 7.7 L [place] % (Auto) 12.2 H Eos % (Auto) 1.1 Baso % (Auto) 0.4 Lymph # (Auto) 0.87 L [place] # (Auto) 1.4 H Eos # (Auto) 0.1 Baso # (Auto) 0.1 Abs Immat Gran (auto) 0.09 H Absolute Neuts (auto) 8.8 H Absolute Nucleated RBC 0.000 Band Neutrophils % Not Reportable Nucleated RBC % 0.0 Platelet Estimate Adequate Polychromasia Occasional Macrocytosis 1+ Schistocytes None seen Sodium 139 Potassium 4.8 Chloride 93 L Carbon Dioxide 37 H Anion Gap 9 BUN 52 H D Creatinine 0.98 Estim Creat Clear Calc 47 Estimated GFR 55 L Glucose 89 Calcium 9.6 Magnesium 2.1 Total Bilirubin 0.4 AST 40 H ALT 12 Alkaline Phosphatase 107 Total Protein 6.3 Albumin 3.5
--- NOTE | 2025-08-06 12:06 | PM.DS ---
DS: Admitting Diagnosis Discharge Date 08/05/25 Admitting Diagnosis Acute on chronic respiratory failure DS: Discharge Diagnosis Discharge Diagnosis (1) Hospice care: Code(s): Z51.5 - Encounter for palliative care Status: Acute (2) Acute and chronic respiratory failure with hypoxia: Code(s): J96.21 - Acute and chronic respiratory failure with hypoxia Status: Acute DS: Summary Hospital Course Hospital Course: 75-year-old female with PMH heart failure, rheumatoid arthritis, ILD, CKD, chronic respiratory failure with hypoxia requiring 4 L home O2, presents to [facility] on 08/02[facility]25 with worsened shortness of breath and hypoxia. Previously she lived at home but had a pelvic fracture and [facility]. During this repeat admission received antibiotics, breathing treatments, noninvasive ventilation. The patient is symptomatology improved transiently but then worsened. Was seen by pulmonology. The patient made decision independently to forego further care due to her worsening multiple comorbidities improve overall functional status and severe shortness of breath. She was discharged on 08/05/2025 to inpatient hospice in guarded condition with a limited prognosis. She was DNR. Time Spent with Patient Time attestation: Total time spent providing and/or coordinating discharge services: Exam Const: General: comfortable Other: A&O x3 Eyes: Pupils: Equal, round and reactive pupils present Resp: Other: Tachypnea Cardio: Rate: regular rate Rhythm: regular rhythm Heart sounds: no gallops, no murmurs and no rubs GI: Inspection: non-distended GI Palp: Yes Soft to palpation Extrem: General: edema (Trace) DS: Data Data Completed and Pending Labs on day of discharge: Preliminary micro results at discharge 08/02/25 18:28 Blood Culture - Preliminary Blood 08/02/25 18:28 Blood Culture - Preliminary Blood 08/02/25 17:40 - Preliminary Urine Suprapubic Discharge Plan Discharge Consulting providers: Noreen Norman Patient Disposition: Hospice [facility] Inpatient Patient Language: Wallisian Date of admission: 08/03/25 07:32 Primary Care Provider: Timothy Donis Admitting Provider: Chichi Hernandez Attending physician on admission: Chichi Hernandez Condition: Serious Hospitalist MIPS Heart Failure (Exclusion) Patient has history of Heart Transplant or Left Ventricular Assistive Device?: No IF YES, STOP HERE Heart Failure (Qualifier) Patient has current or prior documentation of LVEF less than or equal to 40%, or mod/servere depressed LVSF?: No IF NO, STOP HERE
== END 2025-08-05 16:37 | disposition hospice, inpatient (51) | DRG 189 ==
LOC: ANHED 16:23 → ANHIMU 18:49 → ANH3MEDSUR 08-04 09:31 → ANHIMU 08-06 14:25
PROVIDERS: Nurse Practitioner; Admitting Provider Internal Medicine; Emergency Provider Emergency Medicine; PCP Family Medicine; Visit Provider General Practice
DX: J96.21 Acute and chronic respiratory failure with hypoxia (principal); J18.9 Pneumonia, unspecified organism; J84.9 Interstitial pulmonary disease, unspecified; N39.0 Urinary tract infection, site not specified; I48.20 Chronic atrial fibrillation, unspecified; I13.0 Hypertensive heart and chronic kidney disease with heart failure and stage 1 through stage 4 chronic kidney disease, or unspecified chronic kidney disease; I50.32 Chronic diastolic (congestive) heart failure; M35.89 Other specified systemic involvement of connective tissue; J96.22 Acute and chronic respiratory failure with hypercapnia; G47.33 Obstructive sleep apnea (adult) (pediatric); E66.01 Morbid (severe) obesity due to excess calories; N18.32 Chronic kidney disease, stage 3b; D63.1 Anemia in chronic kidney disease; Z96.653 Presence of artificial knee joint, bilateral; Z77.22 Contact with and (suspected) exposure to environmental tobacco smoke (acute) (chronic); M15.0 Primary generalized (osteo)arthritis; E03.9 Hypothyroidism, unspecified; H91.90 Unspecified hearing loss, unspecified ear; R73.03 Prediabetes; E78.5 Hyperlipidemia, unspecified; G60.9 Hereditary and idiopathic neuropathy, unspecified; I48.0 Paroxysmal atrial fibrillation; I27.20 Pulmonary hypertension, unspecified; Z66 Do not resuscitate; Z51.5 Encounter for palliative care; Z99.81 Dependence on supplemental oxygen; Z87.19 Personal history of other diseases of the digestive system; S32.591D Other specified fracture of right pubis, subsequent encounter for fracture with routine healing; Z90.89 Acquired absence of other organs; Z86.718 Personal history of other venous thrombosis and embolism; Z79.01 Long term (current) use of anticoagulants; Z86.16 Personal history of COVID-19; Z99.89 Dependence on other enabling machines and devices; Z91.81 History of falling
CPT/HCPCS: 36415; 36600; 71045; 71250; 80053; 81001; 82375; 82805; 83050; 83735; 83880; 84145; 85018; 85025; 85652; 86140; 87040; 87086; 87186; 87651; 93005; 93306; 94002; 94003; 94640; 94667; 96365; 96367; 96375; 96376; 97110; 97161; 97166; 99285; A9270; G0378; J0456; J0616; J1938; J2185; J7050

== ENCOUNTER 2025-08-05 16:47 | HOS | payer OTHER, MEDICARE, SELFPAY ==
--- OUTSIDE RECORDS SUMMARY | 2025-08-05 16:56 | XMS_ITS | Clinical Summary ---
Author Organization [facility] Address [address] [place] [address] Phone Care Team Providers Care Concrete Saw Operator Name Role Phone Modesto Reyez Primary Care Provider [phone] Allergies No known active allergies Medications Calcium [...] Influenza Vaccine (#1) 2025 09/08/2021 Insurance MEDICARE [facility] Care Teams Concrete Saw Operator Relationship Specialty Start Date End Date Modesto Reyez DO [address] [place] [id number] PCP - General Internal Medicine 06/16/20
--- OUTSIDE RECORDS SUMMARY | 2025-08-05 16:56 | XMS_ITS | Encounter Summary ---
Author Organization 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
--- OUTSIDE RECORDS SUMMARY | 2025-08-05 16:56 | XMS_ITS | Clinical Summary ---
Author Organization [facility] Address [address] [place] [address] Care Team Providers Care Supervisor Concrete Stone Finishing Name Role Phone Timothy Donis MD Primary Care Provider [phone] Allergies No known active allergies Medications acetaminophen [...] Take 1,000 mcg by mouth daily. Active hydroxychloroqu ine (PLAQUENIL) 200 mg tablet [...] mouth daily. 90 Capsule 3 5 Active sacubitriL-vals razia (ENTRESTO) 24-26 mg Tablet [...] mouth daily. 90 Tablet 3 5 Active Active Problems Patient Care Coordination No te Formatting of this note migh t be different from the original. Editorial Project Manager Dr. Amy Ambrose Problem Noted Date [...] 10mg & pt needs to f/u with Editorial Project Manager outpt. History of pulmonary embolism 06/10/2022 [...] Follows up with Pulmonary, Dr. Norman and profile grinder Dr. Bauman. PFT scheduled at [facility] 06/15 H/O influenza 11/02/2021 Obstructive [...] Department Care Team Description 07/09/2025 Results Follow-Up [facility] [address] [place] [address] Myles Reyes MD TSH REFLEXIVE, COMPREHENSIVE METABOLIC PANEL 07/09/2025 Orders Only [facility] [address] [place] [address] Daja Bajwa LPN Chronic heart failure with preserved ejection fraction (CMS/HCC); Hypotension due to drugs 07/02/2025 8:15 AM CDT Office Visit [facility] [address] [place] [address] Myles Reyes MD Chronic heart failure with preserved ejection fraction (CMS/HCC) (Primary Dx); Longstanding persistent atrial fibrillation (CMS/HCC); Atrial flutter, unspecified type (CMS/HCC); Chronic interstitial lung disease (CMS/HCC); Hypotension due to drugs; Primary hypertension; Rheumatoid arthritis, involving unspecified site, unspecified whether rheumatoid factor present (CMS/HCC); History of pulmonary embolism; Chronic anticoagulation 05/11/2025 External Device Data STL ABSTRACTION Provider, Abstract 05/10/2025 Refill [facility] [address] [place] [address] Myles Reyes MD from Last 3 Months Family History Medical [...] Sex Assigned at Female 11/03/2024 11:06 AM VENEER SAMPLE MAKER Legal Sex Female 1:41 PM CDT Gender Identity Female 11/03/2024 11:06 AM VENEER SAMPLE MAKER Sexual Orientation Not on file Last Filed [...] Care Team (Late st Contact Info) Description 09/03/2025 9:00 AM CDT Office Visit [facility] [address] [place] [address] Myles Reyes MD [address] [place] [address] Health Maintenance Due Date Last [...] ejection fraction (CMS/HCC) Hypotension due to drugs [place] ECG ROUTINE ECG W/LEAST 12 LDS W/I&R Routine 07/02/2025 8:15 AM CDT Atrial flutter, unspecified type (CMS/HCC) from Last 3 Months Results * COMPREHENSIVE METABOLIC PANEL (07/09/2025 11:43 AM CDT) Blood 07/09/2025 11:4 3 AM CDT Myles Reyes MD CHEMISTRY ORDERABLES Fin al Result Performing Organization Address City/[facility]/ZIP Co de Phone Number NON [facility] * TSH REFLEXIVE (07/09/2025 11:43 AM CDT) Blood 07/09/2025 11:4 3 AM CDT Myles Reyes MD CHEMISTRY ORDERABLES Fin al Result Performing Organization Address [facility] de Phone Number NON [facility] * [place] ECG ROUTINE ECG W/LEAST 12 LDS W/I&R [...] Reyes MD - 07/02/2025 8:02 AM CDT [facility] Cardiology Outpatient Progress Note [...] was previously followed by Dr. Parker. Her re etcher is . Her profile grinder is Dr. Kobe Gerard. She presented to [...] Spironolactone was discontinued. OLD RECORDS care everywhere [facility]: 02/09/20 HFU w/ CAT- she comes [...] her CPAP machine nightly, butsometimes remove sit mcc through the night. PCP [...] beentrying to lose some weight, following a 2184-8359 Na restriction. Nowusing a foot pedal for [...] 09/29/21 CAT visit-On 09/21/21 she [facility] ER forcomplaint of worsening shortness of breath. [...] Norman has referred her to pulmonology at [facility] and thatappointment is next month. 12-lead ECG performed in the office today was independently interpreted byme and showed sinus rhythm, normal axis and normal intervals, rate 88beats per minute 11/02/21 Says not feeling any better at [facility] hurts to do everything takes a lot out of her, no energyor appetite, SOB same as before. Attributes a lot to being off her painmeds including Hydroxychloroquine and Methotrexate for a while while inhospital. On CPAP. Not much edema though. Pain is mostly in shoulders andhands. Uses heating pad and Tylenol. Saw PCP recently. Sees Pulm at [facility]. Using 2L O2 at rest 4L O2 with activity. She notes her O2 dropsto 85% on 4L still. Rheum adjusting meds on prednisone for 1 week withoutnoted improvement thus far. Has PT coming into home. 04/17/22 Admitted to [facility] with ILD and CHF admits she hasn't [...] CAT visit - she was hospitalized at [facility] 05/25-05/26 for pulmonaryedema, tested positive for COVID, treated for rib fractures due to a fall2 days prior. Then hospitalized at [place] 05/27-06/07 for treatment ofpneumonia (bacterial verses COVID) / COPD exacerbation, diastolic heartfailure exacerbation. She became bradycardic on telemetry (heart [id number] with pause up to 3 seconds) so remdesivir was stopped and metoprololwas stopped. IV furosemide caused MIKE so she was discharged withoutfurosemide but it has since been restarted in residential rehab(currently she is at [facility] in [place] When she isdoing physical therapy her heart [...] RVR and atrialflutter with RVR. Went to [facility] after February admission then backto [facility] in March after and she feels diet at [facility] is to faultand salty. Cough is incessant at [facility]. Has blood in stoolreported so UGI recommended discharge yesterday on Dilt 300mg daily andToprol XL 150mg Lasix 40mg BID Echo with EF 27% but in AF with RVR.Extensively reviewed [facility] records. Patient's daughter veryconcerned about her cough [...] elevate them. Todayshe had an appointment at [facility] with her re etcher so she has not beenable to elevate [...] History: Past Medical History: Diagnosis Date A-fib ([facility]) Congestive heart failure ([facility]) Hyperlipidemia Hypertension Renal disease Allergies: No Known [...] Personally reviewed outside records from care everywhere [facility]: 07/11/[address] TECHNICIAN REPORT Interpretation: Underlying rhythm is persistent atrial [...] rate. LongestRR intervals appeared to have occurred or scrub tech overnight hourspresumably while asleep. Sinus rhythm was [...] targets (1) sacubitriL-valsartan (ENTRESTO) 24-26 mg Tablet [[id number]] Diuretics as needed (1) furosemide (LASIX) 40 mg tablet [[id number]] Advance care planning & code status Code [...] Chronic heart failure with preserved ejection fraction ([facility]I50.32 428.9 2. Longstanding persistent atrial fibrillation ([facility] I48.11 427.31 3. Atrial flutter, unspecified type ([facility] I48.92 427.32 4. Chronic interstitial lung disease ([facility] J84.9 515 5. Hypotension due to drugs I95.2 458.8 E947.9 6. Primary hypertension I10 401.9 7. Rheumatoid arthritis, involving unspecified site, unspecified whetherrheumatoid factor present ([facility] M06.9 714.0 8. History of pulmonary embolism [...] orworsening edema and/or FALCON. -Echo 04/05/2023 at [facility] EF 25-30% during AFib with [id number] MR moderate pulmonary hypertension RVSP 50 mm [...] This note was dictated and transcribed using Mulu Speech Recognitionsoftware. Precision Structural Metal Fitter variances may occur. Despite proofreading,typographical errors may occur. Myles Reyes MD us Myles Reyes MD ECG ORDERABLES Final Re sult [facility] [address] PURI# [id number] [place] [address] from Last 3 Months Insurance MEDICARE PART A AND B [facility] Advance Directives For more information, please contact: [phone] Documents on File Type Date Recorded Patient Joint Terminal Attack Controller Expl anation Advance Directive POA 06/19/2024 9:45 AM A dvance Directive POA Care Teams Supervisor Concrete Stone Finishing Relationship Specialty Start Date End Date Timothy Donis MD [address] [place] [address] PCP - General Family Practice 10/30/24
--- OUTSIDE RECORDS SUMMARY | 2025-08-05 16:56 | XMS_ITS | Encounter Summary ---
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 05/22/2022 05/27/2022 06/17/2022 3:05 AM CDT COVID: Recovered Comment:Added based on recent COVID infection. 06/17/2022 06/18/2022 10/15/2022 3:[address] documented as of this encounter Care Teams Licsw Relationship Specialty Start Date End Date Modesto Reyez DO PCP - General Internal Medicine 01/03/20 01/13/23 Liliana Baron MD PCP - General Internal Medicine 01/14/23 04/11/23 Timothy Donis MD PCP - General Family Practice 04/12/23 Ni Armas, BILLY Registered Nurse Pulmonary Disease 01/11/23 Myles Reyes MD [address] [place] [address] Livestock Speculator Cardiology 12/23/24 documented as of this encounter
--- OUTSIDE RECORDS SUMMARY | 2025-08-05 16:56 | XMS_ITS | Encounter Summary ---
Author Organization [facility] Address [address] [place] [address] Phone Care Team Providers Care Buckler And Lacer Name Role Phone Modesto Reyez DO Primary Care Provider [phone] Ni Armas RN Unavailable Lizette Liliana Prakash MD Primary Care Provider [phone] Timothy Donis MD Primary Care Provider [phone] Myles Reyes MD Unavailable [phone] Encounter Details Date Type Department Care Team (Latest Contact Info) Description 01/02/2020 Orders Only [facility] Scanning, Provider Social History Tobacco Use Types Packs/Day Years Used Date Smoking Tobacco: Never Assessed Comments Unknown Sex and Gender Information Value Date Recorded Sex Assigned at Not on file Legal Sex Female 1:14 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 05/22/2022 05/27/2022 06/17/2022 3:05 AM CDT COVID: Recovered Comment:Added based on recent COVID infection. 06/17/2022 06/18/2022 10/15/2022 3:[address] documented as of this encounter Care Teams Buckler And Lacer Relationship Specialty Start Date End Date Modesto Reyez DO PCP - General Internal Medicine 01/03/20 01/13/23 Liliana Baron MD PCP - General Internal Medicine 01/14/23 04/11/23 Timothy Donis MD PCP - General Family Practice 04/12/23 Ni Armas, BILLY Registered Nurse Pulmonary Disease 01/11/23 Myles Reyes MD [address] [address] Mobile Paramedical Examiner Cardiology 12/23/24 documented as of this encounter
--- OUTSIDE RECORDS SUMMARY | 2025-08-05 16:56 | XMS_ITS | Encounter Summary ---
Author Organization [facility] Address [address] [place] [address] Phone Care Team Providers Care Retail Grocer Name Role Phone Modesto Reyez DO Primary Care Provider [phone] Ni Armas RN Unavailable Lizette Liliana Prakash MD Primary Care Provider [phone] Timothy Donis MD Primary Care Provider [phone] Myles Reyes MD Unavailable [phone] Encounter Details Date Type Department Care Team [...] on file Legal Sex Female 1:14 AM PROPELLER ENGINEER Gender Identity Female 05/04/2020 3:33 PM [...] the result is from a facility outside [facility] . 05/22/2022 05/27/2022 06/17/2022 3:05 AM CDT COVID: Recovered Comment:Added based on recent COVID infection. 06/17/2022 06/18/2022 10/15/2022 3:[address] documented as of this encounter Care Teams Retail Grocer Relationship Specialty Start Date End Date Modesto Reyez DO PCP - General Internal Medicine 01/03/20 01/13/23 Liliana Baron MD PCP - General Internal Medicine 01/14/23 04/11/23 Timothy Donis MD PCP - General Family Practice 04/12/23 Ni Armas, BILLY Registered Nurse Pulmonary Disease 01/11/23 Myles Reyes MD [address] [place] [address] High Rigger Cardiology 12/23/24 documented as of this encounter
--- OUTSIDE RECORDS SUMMARY | 2025-08-05 16:56 | XMS_ITS | Encounter Summary ---
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 Gender Identity Female 05/04/2020 3:33 PM CDT Sexual Orientation Not on file 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
--- OUTSIDE RECORDS SUMMARY | 2025-08-05 16:56 | XMS_ITS | Clinical Summary ---
Author Organization [facility] [address] Address [address] [place] [address] Care Team Providers Care It Integration Architect Name Role Phone Ni Armas RN Unavailable Lizette Timothy Land MD Primary Care Provider [phone] Myles Reyes MD Unavailable [phone] Allergies No known active allergies Medications pravastatin [...] total) by mouth daily 4 Active DULoxetine 40 mg capsule,delayed release(DR/EC) TAKE 1 CAPSULE BY MOUTH DAILY 90 capsule 1 5 Active azaTHIOprine (IMURAN) 50 mg tabletIndicatio ns:autoimmune disease Take 1 tablet (50 mg total) by mouth daily 90 tablet 1 5 12/11/19 26 Active predniSONE (DELTASONE) 2.5 mg tablet TAKE 1 TABLET(2.5 MG) BY MOUTH DAILY 90 tablet 1 5 Active Active Problems Problem Noted Date Diagnosed Date Body mass index 40.0-44.9, adult ([facility]) 01/17 Pulmonary hypertension 12/12/2023 Osteoarthritis 12/12/2023 Dilated cardiomyopathy 04/12/2023 HFrEF (heart failure with reduced ejection fract ion) 04/12/2023 Primary hypertension 06/28/2022 Assessment & Plan (07/03/2022 11:37 AM CDT): BP flucutates, pulse improved. Continues on Toprol 50mg & Lisinopril 5mg. Will increase Lisinopril to 10mg & pt needs to f/u with Yoker Machine Operator outpt. Assessment & Plan (06/28/2022 10:57 AM [...] Plan (06/10/2022 11:22 AM CDT): 2/2 ILD, STRAR, COVID. Pulmonary status stable on her baseline oxygen requirement of 2L at rest, 4L with exertion. Continue Anoro Ellipta. Follow-up Pulmonary outpatient. Has an appointment with Pulmonary on 06/15 at [facility] for PFTs, may need to reschedule Assessment [...] prednisone 15 mg daily. Follows up with medical social worker, Dr. Bauman outpatient. 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 Norman and medical social worker Dr. Bauman. PFT scheduled at [facility] 06/15 Assessment & Plan (06/07/2022 12:06 PM [...] and cough. Tested + on 05/22/22 at [facility] and repeatedly positive at [facility] on 05/27/2022. s/p remdesivir x2 days for high risk->stopped for bradycardia/pauses w/HR 30-40. Needs full 20 days isolation before quarantine can be lifted ~06/12 per IP. Respiratory status stable, on home oxygen 2 L at rest, 4 L with exertion. Continue to monitor. Assessment & Plan (06/05/2022 1:43 PM CDT): Symptomatic with lethargy, leg swelling, and cough. Tested + on 05/22/22 at [facility] (external result entered and pic of [...] and cough. -Tested + on 05/22/22 at [facility] (external result entered and pic of [...] and cough. -Tested + on 05/22/22 at [facility] (external result entered and pic of [...] and cough. -Tested + on 05/22/22 at [facility] (external result entered and pic of [...] and cough. -Tested + on 05/22/22 at [facility] (external result entered and pic of result in media tab) -s/p remdesivir x2 days for high risk->stopped for bradycardia/pauses w/HR 30-40 yesterday -may be able to lift COVID isolation ~06/02, IP aware Assessment & Plan (05/31/2022 5:09 PM CDT): Symptomatic with lethargy, leg swelling, and cough. -Tested + on 05/22/22 at 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 Completed 7 total days of antibiotics (Azith, CTX) on 05/29. -pulm status at baseline. Assessment & Plan (06/03/2022 8:30 AM CDT): Reported two weeks of productive green sputum WELT TRIMMING MACHINE OPERATOR. 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 Completed 7 total days of antibiotics (Azith, CTX) on 05/29. -pulm status at baseline. Assessment & Plan (06/02/2022 12:05 PM CDT): Reports two weeks of productive green sputum WELT TRIMMING MACHINE OPERATOR. 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 Gender Identity Female 05/04/2020 3:33 PM [...] - Tdap) 1961 Hepatitis B Screening 1968 Well Visit 65+ 2013 Fall Risk Assessment 06/07/2023 06/07/2022 Influenza Vaccine (#1) 2025 , 09/08/2021, 09/16/2020, Additional history exists Pneumococcal vaccine 65+ Completed 10/16/2019, 11/25 Hepatitis C Screening Completed 03/09/2022 Zoster Vaccine Completed 01/15/2024, 09/23/2023 Procedures Procedure Name Priority Date/Time Associated Diagnosis Comments HEPATITIS PANEL, ACUTE Routine 03/09/2022 9:20 AM CDT 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 Current interpretive data was last revised on 20. Hep B core IgM Nonreactive Nonreactive [facility] Comment: Interpretive Data If HepB Core IgM Ab is reported as Equivocal, a new sample should be drawn in two weeks for testing. Current interpretive data was last revised on 20. Hep C Ab Nonreactive Nonreactive [facility] Comment:Antibodies to HCV no t detected. Does NOT exclude the possibility of recent exposure to HCV. HepBsAg Nonreactive Nonreactive [facility] Blood 03/09/2022 9:20 AM CDT 03/09/2022 10:20 AM CDT Sandra Bauman MD LAB MICROBIOLOGY - GENERAL ORDER KHOA Final Result [facility] Department [place] [address] from Last 3 Months or Most Recently Relevant to Health Maintenance Insurance [facility] MEDICARE MEDICARE [facility] MEDICARE SUPPLEMENT MEDICARE [facility] MEDICARE SUPPLEMENT Advance Directives For more information, please contact: [phone] Documents on File Type Date Recorded Patient Psychologist Personnel Expl anation ADVANCE DIRECTIVE 11/03/2021 10:23 AM Pow er of [employer] * Full Code (Latest Code Status on File) Date Activated Date Inactivated Comments 05/27/2022 7:14 PM 06/07/2022 10:45 PM Care Teams It Integration Architect Relationship Specialty Start Date End Date Timothy Donis MD PCP - General Family Practice 04/12/23 Ni Armas, RN Registered Nurse Pulmonary Disease 01/11/23 Myles Reyes MD [address] [place] [address] Yoker Machine Operator Cardiology 12/23/24
--- OUTSIDE RECORDS SUMMARY | 2025-08-05 16:56 | XMS_ITS | Encounter Summary ---
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 05/22/2022 05/27/2022 06/17/2022 3:05 AM CDT COVID: Recovered Comment:Added based on recent COVID infection. 06/17/2022 06/18/2022 10/15/2022 3:[address] documented as of this encounter Care Teams Biological Technical Officer Relationship Specialty Start Date End Date Modesto Reyez DO PCP - General Internal Medicine 01/03/20 01/13/23 Liliana Baron MD PCP - General Internal Medicine 01/14/23 04/11/23 Timothy Donis MD PCP - General Family Practice 04/12/23 Ni Armas, BILLY Registered Nurse Pulmonary Disease 01/11/23 Myles Reyes MD [address] [place] [address] Human Resources Trainer Cardiology 12/23/24 documented as of this encounter
--- NOTE | 2025-08-05 17:36 | P.HP_ITS ---
H&P: HPI History of Present Illness Date/Time: 08/05/25 17:36 Chief Complaint: 75-year-old female was admitted August 02 from [facility] due to increasing shortness of breath. She was at [facility] for rehabilitation after a pelvic fracture due to a fall. She has underlying rheumatoid arthritis with interstitial lung disease and chronic respiratory failure requiring 4 L of oxygen. On admission she was found to have abnormal urinalysis as well as pulmonary infiltrates. She was treated for pneumonia with ceftriaxone and azithromycin then doxycycline. She was initially treated with meropenem for possible UTI. She had atrial fibrillation with rapid ventricular rate with rate difficult to control. She required 6 L of oxygen Center usual for. She was dyspneic and utilizing accessory muscles for respiration. She was tachypneic. She was not improving with standard therapy and did not want any advanced life support measures. Because of her multiple comorbidities and poor overall functional status and ongoing suffering with severe shortness of breath and chronic pain she opted for inpatient hospice service for symptom management. Review of Systems Review of Systems: Admitted to loss of appetite and shortness of breath. Denied pain at present. Unable to complete remainder of system review due to dyspnea with speech. ROS unobtainable: Yes unobtainable due to medical condition [facility] Past Medical History Medical History Chronic diarrhea Fecal occult blood test positive Chronic anticoagulation Chronic kidney disease, stage 3 Chronic anemia Deep venous thrombosis (2004) Degenerative joint disease Chronic respiratory failure with hypoxia, on home oxygen therapy On 2 to 4 L nasal cannula. Chronic diastolic congestive heart failure Echocardiogram in 06/2022 showed an EF 50 to 55% and diastolic dysfunction. Osteoporosis Vitamin D deficiency Paroxysmal atrial fibrillation Morbid obesity Interstitial lung disease Pre-diabetes Post menopausal syndrome Stress incontinence Shingles Hearing loss Rheumatoid arthritis Depression with anxiety Nonspecific interstitial pneumonitis Pulmonary embolism (2004) History of COVID-19 Obstructive sleep apnea on CPAP Hypothyroidism Hyperlipidemia Essential hypertension Diverticulosis Surgical History Surgical History History of cholecystectomy History of parathyroidectomy History of section History of arthroscopy of right knee History of tonsillectomy and adenoidectomy History of bilateral knee replacement History of cardiac catheterization Family History Family History Mother Hypertension Father Pulmonary emboli Rheumatoid arthritis Mother , at 91 due to old age Hypertension Father , at 58 due to PE Family history of rheumatoid arthritis Family history of pulmonary embolism Grandparent Cerebrovascular accident Other Family history of malignant neoplasm Social History Social History (Updated 08/05/25 @ 17:37 by Cuong Valerio MD) Social History: She currently [facility] she lived with her daughter Katya in her house prior to going into the rehab facility. Originally from [place], [place]. Surrogate medical decision maker: Mae Cash, daughter. Code status: DNR. Smoking status: Never smoker Second hand tobacco smoke exposure: Yes Alcohol intake: never Substance use: never Substance use type: does not use Do You Feel Safe in your Home?: Yes Lack of Transportation: No Lack of Food: Never True Current Housing: I Have Housing Concerned About Future Housing: No Difficulty Paying Gas/Electric Bills: No Difficulty Paying for Meds: No Currently Unemployed: No Education: Grade School Difficulty w/ Childcare or Family Care: No Living arrangements: with family Additional living arrangements comments: LIVES WITH PAOLA BRITT Occupation/Education: retired Gender identity (if verbalized by the patient): Female Spiritual care concerns: No Agree to blood products: Yes Meds Home Medications and Allergies Home Medications ?Medication ?Instructions ?Recorded ?Confirmed ?Type Calcium 600-D3 Plus (mag-zinc) 1 tablet PO BID 2 08/02/25 History cholecalciferol (vitamin D3) 25 2,000 mcg PO DAILY 08/02/25 History mcg (1,000 unit) capsule cyanocobalamin (vitamin B-12) 1,000 mcg PO DAILY 07/2108/02/25 History 1,000 mcg tablet hydroxychloroquine 200 mg tablet 200 mg PO BID 2 08/02/25 History metoprolol succinate 50 mg 50 mg PO DAILY 03/22/2307/19 History tablet,extended release 24 hr diltiazem HCl 300 mg 300 mg PO QAM #30 caps 04/1108/02/25 Rx capsule,extended release 24 hr metoprolol succinate 100 mg 100 mg PO DAILY 08/28/23 0 08/02/25 History tablet,extended release 24 hr prednisone 2.5 mg tablet 2.5 mg PO DAILY 08/13/2407/19 History furosemide 80 mg tablet 80 mg PO DAILY 10/01/2407/19 History azathioprine 50 mg tablet 50 mg PO DAILY@0800 02/18/25 08/02/25 History magnesium 250 mg tablet 250 mg PO DAILY #90 tabs 08/1908/02/25 Rx tramadol 50 mg tablet 50 mg PO Q8H PRN pain #90 ta bs 04/16/25 08/02/25 Rx potassium chloride 20 mEq See Rx Instructions .Route 0 05/10/25 08/02/25 Rx tablet,extended release(part/cryst) .COMPLEX #180 tabs pravastatin 80 mg tablet See Rx Instructions .Route 0 05/17/25 08/02/25 Rx .COMPLEX #90 tabs pantoprazole 40 mg tablet,delayed See Rx Instructions .Route 06/11/25 08/02/25 Rx release .COMPLEX #90 tabs apixaban 5 mg tablet (Eliquis) 5 mg PO BID 3 months #1 80 tabs 07/06/25 08/02/25 Rx levothyroxine 112 mcg tablet See Rx Instructions .Rout e 07/16/25 08/02/25 Rx .COMPLEX #90 tabs colestipol 1 gram tablet 1 g PO HS 07/17/25 08/02/25 History duloxetine 20 mg capsule,delayed 40 mg PO DAILY 08/02/25 History release alendronate 70 mg tablet (Fosamax) 70 mg PO WEEKLY 08/02/25 History docusate sodium 100 mg capsule 100 mg PO Q12HR #7 caps 07/24/25 08/02/25 Rx hydrocodone 7.5 mg-acetaminophen 1 tablet PO Q4H PRN P ain Rated 07/24/25 Rx 325 mg tablet 7-10 #10 tabs acetaminophen 325 mg capsule 650 mg PO Q6H PRN pain 08/02/25 History arginine-vitamin C-vitamin E oral 4.5 g PO AC 08/02/25 08/02/25 History 4.5 gram-156 mg/9.2 gram powder pkt (Arginaid) collagenase clostridium histo. 250 1 applic topical DA JESENIA 08/02/25 08/02/25 History unit/gram topical ointment (Santyl) silver sulfadiazine 1 % topical 1 applic topical BID 0 08/02/25 08/02/25 History cream (Silvadene) sacubitril 24 mg-valsartan 26 mg 1 tablet PO BID 08/0408/04/25 History tablet (Entresto) Held on 08/04/25. Instructions: Patient no longer taking furosemide 40 mg tablet 40 mg PO DAILY 08/05/2507/26 History Allergies Allergy/AdvReac Type Severity Reaction Status Date / Time No Known Allergies Allergy Verified 08/02/25 15:50 Exam Narrative: HEENT: EOMI, PERRL, sclerae nonicteric, pharyngeal mucosa pink and intact NECK: No JVD, adenopathy, or thyromegaly CHEST: Tachypneic. Diminished breath sounds throughout with scattered coarse crackles HEART: Distant S1/S2, tachycardic and irregular, no audible murmur ABDOMEN: BS hypoactive, soft, nontender, no mass, no bruits EXTREMITIES: 2 to 3+ nonpitting edema of feet NEUROLOGIC: CN intact and symmetric to inspection. MUSCULOSKELETAL: Tone and strength symmetric but diffusely diminished PSYCH: Alert. Oriented to person, place, and time (month and year) Assessment and Plan Assessment and plan (1) Hospice care: Code(s): Z51.5 - Encounter for palliative care Status: Acute Assessment and Plan: * Meets inpatient hospice criteria due to uncontrolled dyspnea requiring continuous IV hydromorphone 0.25 milligrams/hour for relief * 08/05/2025: Discussed care with patient and family at bedside (2) Acute and chronic respiratory failure with hypoxia: Code(s): J96.21 - Acute and chronic respiratory failure with hypoxia Status: Acute (3) Interstitial lung disease: Code(s): J84.9 - Interstitial pulmonary disease, unspecified Status: Acute (4) Atrial fibrillation with RVR: Code(s): I48.91 - Unspecified atrial fibrillation Status: Acute (5) Primary osteoarthritis involving multiple joints: Code(s): M15.0 - Primary generalized (osteo)arthritis Status: Acute (6) Benign hypertension with CKD (chronic kidney disease) stage III: Code(s): I12.9 - Hypertensive chronic kidney disease with stage 1 through stage 4 chronic kidney disease, or unspecified chronic kidney disease; N18.30 - Chronic kidney disease, stage 3 unspecified Status: Acute (7) Congestive heart failure: Code(s): I50.9 - Heart failure, unspecified Status: Chronic (8) Stage 3b chronic kidney disease: Code(s): N18.32 - Chronic kidney disease, stage 3b Status: Acute (9) Chronic anemia: Code(s): D64.9 - Anemia, unspecified Status: Chronic (10) Obstructive sleep apnea on CPAP: Code(s): G47.33 - Obstructive sleep apnea (adult) (pediatric); Z99.89 - Dependence on other enabling machines and devices Status: Chronic (11) Idiopathic peripheral neuropathy: Code(s): G60.9 - Hereditary and idiopathic neuropathy, unspecified Status: Acute (12) Rheumatoid arthritis: Qualifiers: Rheumatoid arthritis location: unspecified site Rheumatoid factor presence: unspecified presence Qualified Code(s): M06.9 - Rheumatoid arthritis, unspecified Code(s): M06.9 - Rheumatoid arthritis, unspecified Status: Chronic
[2025-08-05] MEDS: HYDROmorphone HCL INJ (*CRX) 1 MG/ML SYR 0.5 MG IV PUSH (17:47)
[2025-08-05] MEDS: HYDROmorphone HCL/PF (*CRX) 50 MG in SODIUM CHLORIDE 0.9% IV 95 ML IV CONT (18:16)
[2025-08-05 20:00] VITALS: BP 139/95; PULSE 73; RESP 20; TEMP 35.9; O2SAT 93
[2025-08-05 21:00] VITALS: O2SAT 94
[2025-08-06] MEDS: diazePAM INJ (*CRX) 10 MG/2 ML SYRINGE 5 MG IV PUSH ×3 (00:29→12:47)
--- NOTE | 2025-08-06 11:16 | P.PNIM_ITS ---
Progress Note: A&P Assessment and Plan (1) Hospice care: Code(s): Z51.5 - Encounter for palliative care Status: Acute Assessment and Plan: * Meets inpatient hospice criteria due to uncontrolled dyspnea requiring continuous IV hydromorphone 0.25 milligrams/hour for relief * 08/05/2025: Discussed care with patient and family at bedside * 08/06/2025: Hypothermic, unresponsive, blood pressure not obtainable, rapid decline, discussed with family at bedside (2) Acute and chronic respiratory failure with hypoxia: Code(s): J96.21 - Acute and chronic respiratory failure with hypoxia Status: Acute (3) Interstitial lung disease: Code(s): J84.9 - Interstitial pulmonary disease, unspecified Status: Acute (4) Atrial fibrillation with RVR: Code(s): I48.91 - Unspecified atrial fibrillation Status: Acute (5) Primary osteoarthritis involving multiple joints: Code(s): M15.0 - Primary generalized (osteo)arthritis Status: Acute (6) Benign hypertension with CKD (chronic kidney disease) stage III: Code(s): I12.9 - Hypertensive chronic kidney disease with stage 1 through stage 4 chronic kidney disease, or unspecified chronic kidney disease; N18.30 - Chronic kidney disease, stage 3 unspecified Status: Acute (7) Congestive heart failure: Code(s): I50.9 - Heart failure, unspecified Status: Chronic (8) Stage 3b chronic kidney disease: Code(s): N18.32 - Chronic kidney disease, stage 3b Status: Acute (9) Chronic anemia: Code(s): D64.9 - Anemia, unspecified Status: Chronic (10) Obstructive sleep apnea on CPAP: Code(s): G47.33 - Obstructive sleep apnea (adult) (pediatric); Z99.89 - Dependence on other enabling machines and devices Status: Chronic (11) Idiopathic peripheral neuropathy: Code(s): G60.9 - Hereditary and idiopathic neuropathy, unspecified Status: Acute (12) Rheumatoid arthritis: Qualifiers: Rheumatoid arthritis location: unspecified site Rheumatoid factor presence: unspecified presence Qualified Code(s): M06.9 - Rheumatoid arthritis, unspecified Code(s): M06.9 - Rheumatoid arthritis, unspecified Status: Chronic Subjective Date/time seen: 08/06/25 11:16 Interval history: Comfortable overnight. Became unresponsive to verbal or tactile stimuli. No moaning or restlessness. Review of Systems Review of Systems: ROS unobtainable: Yes unobtainable due to medical condition Exam Narrative: HEENT:Pharyngeal mucosa pink and intact NECK: No JVD, adenopathy, or thyromegaly CHEST: Using accessory muscles. Diminished breath sounds throughout with scattered coarse crackles HEART: Distant S1/S2, tachycardic and irregular, no audible murmur ABDOMEN: BS hypoactive, soft, nontender, no mass, no bruits EXTREMITIES: 2 to 3+ nonpitting edema of feet, cool NEUROLOGIC: CN intact and symmetric to inspection. MUSCULOSKELETAL: No gross deformity to visual inspection PSYCH: Unresponsive to verbal or tactile stimuli Objective Data Vital Signs Vital Signs: Vital Signs - 24 hr 08/05/25 20:00 08/05/25 21:00 08/06/25 10:55 Temperature 96.7 F L Pulse Rate 73 Respiratory Rate 20 Blood Pressure 139/95 H Pulse Oximetry 93 94 Oxygen Delivery Nasal Cannula Nasal Cannula Oxygen Flow Rate 4 4 Intake/Output Intake/Output: Intake & Output 08/03/25 08/04/25 08/05/25 08/06/25 23:59 23:59 23:59 23:59 Intake Total 0 Balance 0 Meds/Results Medications: Active Medications Generic Name Dose Route Start Last Admin Trade Name Freq PRN Reason Stop Dose Admin Artificial Tears 1 - 2 drop 08/05/25 17:20 Artificial Tears Ophth Soln 15 Ml Bottle EACH EYE Q12H PRN Dry Eye(s) Bisacodyl 10 mg 08/05/25 17:20 Bisacodyl 10 Mg Suppository RECTAL DAILY PRN Constipation Diazepam 5 mg 08/05/25 17:21 08/06/25 06:10 Diazepam Inj (*Crx) 10 Mg/2 Ml Syringe IV PUSH 5 mg Q6H PRN Administration RESTLESSNESS/ANXIETY Glycopyrrolate 0.1 mg 08/05/25 17:20 Glycopyrrolate Inj (*Sp) 0.2 Mg/Ml Vial IV PUSH Q4H PRN EXCESS secretions Hydromorphone HCl 0.5 mg 08/05/25 17:17 08/05/25 17:47 Hydromorphone Hcl Inj (*Crx) 1 Mg/Ml Syr IV PUSH 0.5 mg Q2H PRN Administration PAIN/DYSPNEA Hydromorphone HCl 50 mg/ 100 mls @ 0.5 mls/hr 08/05/25 17:20 08/05/25 18:16 Sodium Chloride IV CONT 0.25 mg/hr .Q24H DELFIN 0.5 mls/hr 0.25 MG/HR Administration Prochlorperazine Edisylate 10 mg 08/05/25 17:20 Prochlorperazine Edisylate 10 Mg/2 Ml Vial IV PUSH Q6H PRN Nausea And Vomiting
--- NOTE | 2025-08-10 10:16 | P.DN_ITS ---
Discharge Summary Date and Time Date of : 08/06/25 Time of : 13:10 Provider Pronounced By: 2 RNs Name of First RN That Pronounced: Simin Lawrence Name of Second RN That Pronounced: Megan Moreland/Jeff Machado Probable Cause of Probable Cause of : Acute on chronic respiratory failure secondary to interstitial lung disease Summary Hospital Course: Admitted to inpatient hospice service for symptom management. Medications were titrated to comfort. Mrs. Cash peacefully. 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
== END 2025-08-06 17:56 | disposition expired | DRG 951 ==
PROVIDERS: Admitting Provider Internal Medicine; PCP Family Medicine; Visit Provider Internal Medicine
DX: Z51.5 Encounter for palliative care (principal); J96.21 Acute and chronic respiratory failure with hypoxia; J18.9 Pneumonia, unspecified organism; J84.9 Interstitial pulmonary disease, unspecified; I13.0 Hypertensive heart and chronic kidney disease with heart failure and stage 1 through stage 4 chronic kidney disease, or unspecified chronic kidney disease; I50.32 Chronic diastolic (congestive) heart failure; N39.0 Urinary tract infection, site not specified; M35.89 Other specified systemic involvement of connective tissue; N18.32 Chronic kidney disease, stage 3b; I27.20 Pulmonary hypertension, unspecified; D63.1 Anemia in chronic kidney disease; G47.33 Obstructive sleep apnea (adult) (pediatric); G60.9 Hereditary and idiopathic neuropathy, unspecified; R73.03 Prediabetes; I48.0 Paroxysmal atrial fibrillation; M15.0 Primary generalized (osteo)arthritis; M06.9 Rheumatoid arthritis, unspecified; S32.591D Other specified fracture of right pubis, subsequent encounter for fracture with routine healing; Z66 Do not resuscitate
CPT/HCPCS: A9270; J1171; J3360